=== PATIENT | female | born 1945 | race Caucasian/White ===

== ENCOUNTER 2021-03-18 17:55 | Observation (INO) | payer MEDICARE, SELFPAY ==
--- OUTSIDE RECORDS SUMMARY | 2021-03-18 18:37 | XMS REPORT | Continuity of Care Document ---
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 patch. WASTE: F/P - P Waste Black; E - P Waste Black cefdinir 2019-0 Yes 300 mg = 1 Mem oria 300 MG Oral 1-22 cap, PO, l Capsule 15:33: Q12H, X 7 Estelle nn [Omnicef] 00 day, # 14 cap, 0 Refill(s), Pharmacy: [facility] #[id number] Azithromyci 2019-0 Yes 500 mg = 1 Memoria n 500 MG 1-22 tab, PO, l Oral Tablet 15:33: Daily, X 3 [place] [Zithromax] 00 day, # 3 tab, 0 Refill(s), Pharmacy: [facility] #[id number] benzonatate 2019- Yes 200 mg = 1 Memoria 200 MG Oral -22 cap, PO, l Capsule 15:33: TID, X 10 Estelle nn [Tessalon] 00 day, # 30 cap, 0 Refill(s), Pharmacy: [facility] #[id number] Potassium 2019-0 No Notes: Memori a Chloride - (Same as: l 13:34: K-Dur 20) "Do Not Crush" Give with food and full glass of water For patients unable to swallow tablet, dissolve in one half glass of water. Allow about 2 minutes for the tablets to disintegra te. Stir before giving to prepare slurry and administer . Please exclude Patient s with feeding tube less than 14 Italian (Dobhoff, J-tube etc) and pediatric and patients. Zocor 2019-0 No Notes: Memoria - (Same as: l 03:00: Zocor) Chantix 2019- No 0.5 mg, 1 Memor ia 10-05 tab, l 03:00: Route: PO, 00 Drug form: TAB, Bedtime, Dosing Weight 45.455, kg, Start date: 10/04/19 21:00:00 BASIC ACOUSTIC ANALYST, Duration: 30 day, Stop date: 11/02/19 21:00:00 BASIC ACOUSTIC ANALYST Rocephin + No Notes: Memor ia sterile 10-05 (Same As: l water 10 mL 00:00: Rocephin). Use with 100 mL NS and infuse over 30 min MEDICATION WASTE Product Size: 1000 mg Product Wasted: ___ mg Zithromax 2019-0 No Notes: Memori a -21 (Same As: l 17:00: Zithromax IV) Cogentin 2019-0 No Notes: Memoria -21 (Same As: l 15:00: Cogentin) Buspirone 2019-0 No Notes: Memori a -21 (Same As: l 15:00: BuSpar) clopidogrel 2019-0 No Notes: Isaak lauren - (Same As: l 15:00: Plavix) Lexapro 2020-0 No Notes: Memoria 10-04 (Same as: l 15:00: Lexapro) Prinivil No Notes: Memoria 10-04 (Same as: l 15:00: Prinivil, Zestril) pantoprazol No Notes: Isaak lauren e 10-04 Tablet l 15:00: should not be chewed or crushed. (Same as: Protonix) Mirapex No Notes: Memoria 10-04 (Same as: l 15:00: Mirapex) Pramipexole No 0.125 mg, M emoria 10-04 1 tab, l 15:00: Route: PO, Drug form: TAB, Daily, Dosing Weight 45.455, kg, Start date: 10/04/19 9:00:00 BASIC ACOUSTIC ANALYST, Duration: 30 day, Stop date: 11/02/19 9:00:00 BASIC ACOUSTIC ANALYST Sucralfate No 1 gm, 1 Isaak lauren 10-04 tab, l 15:00: Route: PO, Drug form: TAB, BID, Dosing Weight 45.455, kg, Start date: 10/04/19 9:00:00 BASIC ACOUSTIC ANALYST, Duration: 30 day, Stop date: 11/02/19 17:00:00 BASIC ACOUSTIC ANALYST Robitussin No Notes: Memor ia 10-04 (Same as: l 04:13: Robitussin ) Guaifenesin No 10 ml, Isaak lauren 20 MG/ML / 10-04 Route: PO, l Phenylephri 03:58: Drug Form: LIQ, Hydrochlori Dosing de 1 MG/ML Weight Oral 45.455, Solution kg, Q6H, PRN Cough/Ricky estion, Start date: 10/03/19 21:58:00 BASIC ACOUSTIC ANALYST, Duration: 30 day, Stop date: 11/02/19 21:57:00 BASIC ACOUSTIC ANALYST Habitrol No Notes: Memoria 10-04 (Same as: l 03:31: Habitrol) "Remove old patch before applicatio n of new patch" WASTE: F/P - P Waste Black; E - P Waste Black Trileptal 2020-0 No Notes: Do Mem oria 10-04 not crush l 03:27: or chew. (Same as: Trileptal) Seroquel No Notes: Memoria 10-04 (Same as: l 03:00: SEROquel) Cogentin 2019-0 Yes 0.5 mg, Memori a -21 PO, TID, 0 l 02:59: Refill(s) Prinivil 2019-0 Yes 2.5 mg, Memori a -21 PO, Daily, l 02:59: 0 Refill(s) varenicline 0 Yes 0.5 mg = 1 Memoria 0.5 MG Oral - tab, PO, l Tablet 02:59: Bedtime, # Estelle nn [Chantix] 00 30 tab, 0 Refill(s) oxcarbazepi 2019-0 Yes 150 mg = 1 Memoria ne 150 MG 10-04 tab, PO, l Oral Tablet 02:59: BID, # 120 Jasbir [Trileptal] 00 tab, 0 Refill(s) lidocaine 0 Yes TOP, TID, Mem oria 5% 3.5 gm 10-04 0 l top OIN 02:59: Refill(s) Estelle horowitz 00 Simvastatin 0 Yes 40 mg = 1 M emoria 40 MG Oral 10-04 tab, PO, l Tablet 02:59: Bedtime, # Estelle nn [Zocor] 00 90 tab, 1 Refill(s) Escitalopra 0 Yes 20 mg = 1 M emoria m 20 MG - tab, PO, l Oral Tablet 02:59: Daily, # Matteo guthrie [Lexapro] 00 30 tab, 0 Refill(s) Klonopin 0 No 0.25 mg, Memor ia - PO, BID, 0 l 02:59: Refill(s) quetiapine 0 Yes 100 mg = 1 M emoria 100 MG Oral -21 tab, PO, l Tablet 02:59: Bedtime, # Estelle nn [Seroquel] 00 270 tab, 0 Refill(s) Pramipexole 0 Yes 0.25 mg = M emoria dihydrochlo 1-21 1 tab, PO, l ride 0.25 02:59: TID, # 90 Her do MG Oral 00 tab, 0 Tablet Refill(s) [Mirapex] Janumet No PO, BID, 0 Isaak lauren 10-04 Refill(s) l 02:59: Jasbir 00 clopidogrel 2019- Yes 75 mg = 1 M emoria 75 mg oral 1-21 tab, PO, l tablet 02:59: Daily, # [place] 00 30 tab, 0 Refill(s) Lovenox No Notes: Memoria - (Same as: l 00:15: Lovenox) Dextrose No 12.5 gm, Memor ia 50% Syringe 10-04 25 mL, l (D50W) 00:15: Route: [place] 00 IVP, Drug Form: INJ, Dosing Weight 45.455, kg, PRN, PRN Blood Glucose Results, Start date: 10/03/19 18:15:00 BASIC ACOUSTIC ANALYST, Duration: 30 day, Stop date: 11/02/19 18:14:00 BASIC ACOUSTIC ANALYST, 0 Glucagon No 1 mg, Memoria 10-04 Route: IM, l 00:15: Drug form: PDR/INJ, PRN, Dosing Weight 45.455, kg, PRN Blood Glucose Results, Start date: 10/03/19 18:15:00 BASIC ACOUSTIC ANALYST, Duration: 30 day, Stop date: 11/02/19 18:14:00 BASIC ACOUSTIC ANALYST, 0 Insulin No Notes: Memoria Lispro 10-04 (Same as: l 00:15: Humalog) Roll in palms of hands gently; Do not shake vigorously . WASTE: F/P - Black; E - Municipal Trash Bin Stable for 28 days at room temperatur e. Expires in days from ____Date Kayexalate No Notes: Memor ia 10-04 (sodium l 00:15: polystyren e sulfonate 15 gm/60 ml GAIL) Shake well before use. (Same as: Kayexalate , SPS) Dextrose No 12.5 gm, Memor ia 50% Syringe 1-20 25 mL, l (D50W) 23:12: Route: IVP, Drug Form: INJ, Dosing Weight 45.455, kg, PRN, PRN Blood Glucose Results, Start date: 10/03/19 17:12:00 BASIC ACOUSTIC ANALYST, Duration: 30 day, Stop date: 11/02/19 17:11:00 BASIC ACOUSTIC ANALYST, 0 Glucagon No 1 mg, Memoria 10-03 Route: IM, l 23:12: Drug form: PDR/INJ, PRN, Dosing Weight 45.455, kg, PRN Blood Glucose Results, Start date: 10/03/19 17:12:00 BASIC ACOUSTIC ANALYST, Duration: 30 day, Stop date: 11/02/19 17:11:00 BASIC ACOUSTIC ANALYST, 0 Ondansetron No Notes: Isaak lauren - (Same as: l 23:12: Zofran) MEDICATION WASTE Product Size: 4 mg Product Wasted: ___ mg Trazodone No Notes: Memori a - (Same As: l 23:12: Desyrel) Acetaminoph No Notes: Do M emoria en 10-03 not exceed l 23:12: 4 gm/day. (Same as: Tylenol) D5LR 1,000 No 1,000 mL, Me moria mL 10-03 Rate: 75 l 23:11: ml/hr, Infuse over: 13.3 hr, Route: IV, Dosing Weight 45.455 kg, Total Volume: 1,000, Start date: 10/03/19 17:11:00 BASIC ACOUSTIC ANALYST, Duration: 30 day, Stop date: 11/02/19 17:10:00 BASIC ACOUSTIC ANALYST, 1.4, m2, 0 Promethazin No Notes: Do M emoria e -20 not give l 23:11: IV push. (Same as: Phenergan) Ceftriaxone No Notes: Isaak lauren - (Same As: l 22:28: Rocephin). Use with 100 mL NS and infuse over 30 min MEDICATION WASTE Product Size: 1000 mg Product Wasted: ___ mg Saline 2020-0 No Notes: Memoria Flush 0.9% -20 Same as: l 19:59: BD [place] 00 Posiflush Sterile Calcium No 1,000 mL, Memor ia Chloride -20 2,000 l 0.0014 19:59: ml/hr, Jasbir MEQ/ML / 00 Infuse Potassium Over: 0.5 Chloride hr, Route: 0.004 IV, 1,000, MEQ/ML / Drug form: Sodium INJ, ONCE, Chloride Priority: 0.103 STAT, MEQ/ML / Dosing Sodium Weight Lactate 45.455 kg, 0.028 Start MEQ/ML date: Injectable 10/03/19 Solution 13:59:00 BASIC ACOUSTIC ANALYST, Stop date: 10/03/19 13:59:00 BASIC ACOUSTIC ANALYST, 0 Ondansetron No Notes: Isaak lauren -20 (Same as: l 19:59: Zofran) MEDICATION WASTE Product Size: 4 mg Product Wasted: ___ mg baclofen 5 2017-09 Yes 5 mg = 1 Mem oria mg oral 2-26 tab, PO, l tablet 05:08: TID, PRN [place] 00 Muscle Spasms, # 15 tab, 0 Refill(s) tramadol 2017-09 No 50 mg = 1 Isaak lauren hydrochlori 2-26 tab, PO, l de 50 MG 05:06: Q6H, PRN Estelle nn Oral Tablet 00 pain, X 5 [Ultram] day, # 20 tab, 0 Refill(s) Dexamethaso 2017-09 No 4 mg, 1 Mem oria ne 2-26 mL, Route: l 03:14: IM, Drug form: INJ, ONCE, Dosing Weight 45.455, kg, Priority: STAT, Start date: 09/07/18 21:14:00 BASIC ACOUSTIC ANALYST, Stop date: 09/07/18 21:14:00 BASIC ACOUSTIC ANALYST Tramadol 2017-09 No 50 kg, Memori a 2-26 Priority: l 03:00: STAT, Jasbir Start date: 09/07/18 21:00:00 BASIC ACOUSTIC ANALYST, Stop date: 09/07/18 21:00:00 BASIC ACOUSTIC ANALYST glimepiride Yes 2mg QD Take 2 mg [place] (AMARYL) 2 9-25 by mouth Metho di MG tablet 13:45: daily st 26 before breakfast. HYDROcodone 2017-0 Yes 1{tbl} Q4H Take 1 [place] -acetaminop 9-25 tablet by Met lena miner (NORCO) 13:45: mouth st 7.5-325 mg 26 every 4 per tablet (four) hours as needed for moderate pain. hydrOXYzine 2017-0 Yes 25mg Q.5D Take 25 mg [place] (ATARAX) 25 9-25 by mouth 2 Me thodi MG tablet 13:45: (two) st 26 times a day. methIMAzole 2017-0 Yes 10mg QD Take 10 mg [place] (TAPAZOLE) 9-25 by mouth Metho di 10 MG 13:45: daily. st tablet 26 pravastatin 2017-0 Yes 40mg QD Take 40 mg [place] (PRAVACHOL) 9-25 by mouth Meth brenna 40 MG 13:45: daily. st tablet 26 traZODone 2016-0 Yes 150mg QD Take 150 [place] (DESYREL) 9-25 mg by Method[facility] 150 MG 13:45: mouth st tablet 26 nightly. venlafaxine 2017-0 Yes 100mg QD Take 100 [place] (EFFEXOR) 9-25 mg by [facility] 100 MG 13:45: mouth st tablet 26 daily. ALPRAZolam 2017-0 Yes 1mg Q.25D Take 1 mg [place] (XANAX) 1 9-25 by mouth 4 Meth brenna MG tablet 13:45: (four) st 26 times a day. aspirin 2016- Yes 81mg QD Take 81 mg [place] (ECOTRIN) 9-25 by mouth Method i 81 MG 13:45: daily. st enteric 26 coated tablet clopidogrel 0 Yes TK 1 T PO [place] (PLAVIX) 75 9-09 QD [facility] mg tablet 00:00: st 00 lisinopril 0 Yes TK 1 T PO [place] (PRINIVIL,Z 8- QD [facility] ESTRIL) 2.5 00:00: st mg tablet 0 Yes TK 1 T PO [place] 50-500 mg 8-26 BID WC [facility] per tablet 00:00: st 00 busPIRone 0 Yes TK 1 T PO [place] (BUSPAR) 30 8-24 BID [facility] MG tablet 00:00: st 00 Sodium No 500 mL, Memoria Chloride 12-10 500 ml/hr, l 0.154 09:23: Infuse [place] MEQ/ML 00 Over: 1 Injectable hr, Route: Solution IV, 500, Drug form: INJ, ONCE, Priority: STAT, Dosing Weight 59.091 kg, Start date: 12/10/16 4:23:00 CDT, Duration: 1 doses or times, Stop date: 12/10/16 4:23:00 CDT Saline No Notes: Memoria Flush 0.9% 12-10 Same as: l 07:02: BD Jasbir Posiflush Sterile Ondansetron Yes Special Mem oria 4 MG 06-09 Instructio l Disintegrat 10:40: ns: Chris n ing Tablet 00 Dissolve [Zofran] tab under tongue Ondansetron No Notes: Isaak lauren 06-09 (Same as: l 10:13: Zofran) Jasbir MEDICATION WASTE Product Size: 4 mg Product Wasted: ___ mg Ativan No Notes: Memoria - (Same as: l 10:13: Ativan) Jasbir 00 Sodium No 1,000 mL, Memori a Chloride 04-06 1,000 l 0.154 04:34: ml/hr, [place] MEQ/ML 00 Infuse Injectable Over: 1 Solution hr, Route: IV, ONCE, Priority: STAT, Dosing Weight 59.091 kg, Start date: 04/05/15 23:34:00, Duration: 1 doses or times, Stop date: 04/05/15 23:34:00 Saline No Notes: Memoria Flush 0.9% 04-06 Same as: l 02:36: BD Jasbir Posiflush Sterile Levaquin No Notes: Do Isaak lauren 04-16 not give l 17:00: w/antacids Jasbir , dairy pdt & minerals Take 1 hr before or 2 hr after dairy products predniSONE Yes Special Isaak lauren 10 mg oral 04-15 Instructio l tablet 16:40: ns: take 4 Estelle nn 00 tabs po daily for 3 days then 3 tabs po daily for 3 days then 2 tabs po daily for 3 days then 1 tab po daily for 3 days then stop. Albuterol Yes 2.49 mg = Mem oria 0.83 MG/ML 04-15 3 mL, NEB, l Inhalant 16:40: Q6H, Jasbir Solution 00 Dyspnea, # 120 ea, 0 Refill(s) tiotropium Yes 18 Memoria 0.018 04-15 microgram l MG/ACTUAT 16:40: = 1 ea, Estelle nn Inhalant 00 INHALATION Powder , RDaily, [Spiriva] # 30 ea, 0 Refill(s) levofloxaci Yes 750 mg = 1 Memoria n 750 mg 04-15 tab, PO, l oral tablet 16:40: [id number], # [place] 00 7 tab, 0 Refill(s) glimepiride Yes 4 mg = 1 Me moria 4 mg oral 04-15 tab, PO, l tablet 16:40: BID, # 60 Chris n 00 tab, 0 Refill(s) 120 ACTUAT Yes 2 puff, Isaak lauren Budesonide 04-15 INHALATION l 0.16 16:40: , RBID, # Jasbir MG/ACTUAT / 00 1 ea, 0 formoterol Refill(s) fumarate 0.0045 MG/ACTUAT Metered Dose Inhaler [Symbicort] lisinopril Yes 10 mg = 1 Me moria 10 mg oral 04-15 tab, PO, l tablet 16:40: Daily, # [place] 00 30 tab, 0 Refill(s) Clonidine No Notes: Memori a 04-15 (Same As: l 12:50: Catapres) Jasbir 00 120 ACTUAT No Notes: Memor ia Budesonide 04-15 (Same as: l 0.16 01:00: Symbicort) Jasbir MG/ACTUAT / 00 formoterol fumarate 0.0045 MG/ACTUAT Metered Dose Inhaler [Symbicort] tiotropium No Notes: Memor ia 0.018 04-14 (Same As: l MG/ACTUAT 19:00: Spiriva) Herm jose a Inhalant 00 Powder [Spiriva] Prednisone No Notes: Memor ia 04-14 Take with l 18:05: food. Jasbir 00 Levaquin No Notes: Memoria 8- (Same l 17:00: as:Levaqui n) potassium No Notes: Memori a phosphate-s 04-14 Non-Fomrul l odium 12:03: marilou Drug. phosphate (Same as: 250 mg-45 K-Phos) mg-298 mg oral tablet Methylpredn No Notes: Isaak lauren isolone 04-14 (Same l 02:00: as:Solu-ME DROL, A-Methapre d) Pravastatin No Notes: Isaak lauren 04-14 (Same as: l 02:00: Pravachol) Pramipexole No Notes: Isaak lauren 04-14 (Same as: l 02:00: Mirapex) Alprazolam No Notes: Memor ia 1 MG Oral 7- With food l Tablet 22:00: or milk Jasbir [Xanax] (Same as: Xanax) Buspirone No Notes: Memori a 7-31 (Same As: l 18:00: BuSpar) Lisinopril No Notes: Memor ia 7-31 (Same as: l 17:30: Prinivil, Zestril) Metformin No Notes: Memori a 7-31 (Same as: l 17:00: Glucophage ) Take with meal Januvia No Notes: Memoria 7-31 (Same as: l 17:00: Januvia) Sucralfate No Notes: January emoria 7-31 interfere l 17:00: w/enteral feeds - Take 1 hr before or 2 hr after antacids, dairy pdt, meals & minerals - On empty stomach. (Same As: Carafate) Hydroxyzine No Notes: Isaak lauren Hydrochlori 7-31 (Same as: l de 25 MG 16:37: Atarax) Chris n Oral Tablet 00 Avoid alcohol. Nicoderm No Notes: Memoria C-Q 7-31 (Same as: l 14:00: Habitrol) "Remove old patch before applicatio n of new patch" Lexapro No Notes: Memoria 7-31 (Same as: l 14:00: Lexapro) pneumococca No Notes: Isaak lauren l capsular 04-13 (Same as: l polysacchar 14:00: Pneumovax H ermann ferny type 1 00 23) vaccine / Refrigerat pneumococca e l capsular polysacchar ferny type 10A vaccine / pneumococca l capsular polysacchar ferny type 11A vaccine / pneumococca l capsular polysacchar ferny type 12F vaccine / pneumococca l capsular polysacchar glimepiride No Notes: Isaak lauren 04-13 (Same as: l 14:00: Amaryl) Aspirin / No Notes: Do Mem oria Calcium 04-13 not crush l Carbonate 14:00: or chew. (Same As: Ecotrin) Prednisone No Notes: Memor ia 04-13 Take with l 14:00: food. Protonix No Notes: Memoria - Tablet l 12:30: should not be chewed or crushed. (Same as: Protonix) insulin No Notes: Memoria detemir 04-13 Same as l 02:00: Levemir "single patient use only" Albuterol No Notes: Memori a 0.833 MG/ML 04-13 (Same as: l / 01:00: Duoneb) Ipratropium 00 [place] 0.167 MG/ML Inhalant Solution [DuoNeb] Brovana No Notes: SEE Isaak lauren 04-12 RT l 23:02: DOCUMENTAT ION Same as Brovana Nicoderm No Notes: Memoria C-Q 04-12 (Same as: l 23:00: Habitrol) "Remove old patch before applicatio n of new patch" Methylpredn No Notes: Isaak lauren isolone 30 (Same l 22:00: as:Solu-ME DROL, A-Methapre d) Alprazolam No Notes: Memor ia 1 MG Oral 7-30 With food l Tablet 22:00: or milk [place] [Xanax] 00 (Same as: Xanax) Alprazolam No Notes: Memor ia 7-30 With food l 22:00: or milk [place] 00 (Same as: Xanax) Advair No Notes: Memoria Diskus 250 7-30 (Same as: l mcg-50 mcg 22:00: Advair) Herm jose a inhalation 00 powder Budesonide No Notes: Memor ia 7-30 (Same As: l 21:11: Pulmicort) Jasbir 00 Ativan No Notes: Memoria 7-30 (Same as: l 21:08: Ativan) Levaquin No Notes: Memoria 7-30 (Same l 21:00: as:Levaqui Jasbir 00 n) Albuterol No Notes: Memori a 0.833 MG/ML 7-30 (Same as: l / 20:00: Duoneb) Ipratropium 00 [place] 0.167 MG/ML Inhalant Solution [DuoNeb] Hydroxyzine Yes Special Mem oria Hydrochlori 7-30 Instructio l de 25 MG 19:52: ns: PRN Chris n Oral Tablet sucralfate Yes 1 gm = 1 Mem oria 1 g oral 7-30 tab, PO, l tablet 19:52: BID pantoprazol Yes 40 mg, PO, Memoria e 7-30 Daily l 19:52: pramipexole Yes Special Mem oria 0.125 mg 7-30 Instructio l oral tablet 19:52: ns: Chris n 00 bedtime cephalexin No Special Isaak lauren 500 mg oral 7-30 Instructio l capsule 19:52: ns: PT HAS Herm jose a 3 DAYS LEFT TO TAKE THIS MED Metformin Yes 1 tab, PO, Me moria hydrochlori 7-30 BID l de 1000 MG 19:52: [place] / sitagliptin 50 MG Oral Tablet [Janumet ] Alprazolam Yes 1 mg, PO, Me moria 7-30 QID l 19:52: Jasbir 00 Escitalopra Yes 10 mg = 1 M emoria m 10 MG 7-30 tab, PO, l Oral Tablet 19:52: Daily Estelle nn [Lexapro] 00 predniSONE No See Memoria 10 mg oral 7-30 Special l tablet 19:52: Instructio Estelle nn 00 ns, PO, Daily, # 12 tab busPIRone Yes 10 mg = 1 Mem oria 10 mg oral 7-30 tab, PO, l tablet 19:52: TID Jasbir Levaquin No Notes: Memoria 7-30 (Same l 19:00: as:Levaqui n) Insulin, No Notes: Memoria Aspart, 7-30 Roll in l Human 18:54: palms of hands gently; Do not shake vigorously . (Same as: NovoLOG) "single patient use only" Stable for 28 days at room temperatur e. Expires in days from ____Date Dextrose No 25 gm, 50 Isaak lauren 50% Syringe 7-30 mL, Route: l 18:54: IVP, Drug Form: INJ, Dosing Weight 72.727, kg, PRN, PRN Blood Glucose Results, Start date: 04/12/14 13:54:00, Duration: 30 day, Stop date: 05/12/14 13:53:00 Glucagon No 1 mg, Memoria 30 Route: IM, l 18:54: Drug form: PDR/INJ, PRN, Dosing Weight 72.727, kg, PRN Blood Glucose Results, Start date: 04/12/14 13:54:00, Duration: 30 day, Stop date: 05/12/14 13:53:00 Acetaminoph No Notes: Isaak lauren en 325 MG / -30 (Same as: l Hydrocodone 18:50: [place] Estelle nn Bitartrate 00 325/5) Do 5 MG Oral not exceed Tablet 4gm/day of acetaminop hen. Acetaminoph No Notes: Do M emoria en -30 not exceed l 18:50: 4 gm/day. [place] (Same as: Tylenol) Docusate No Notes: Memoria 7-30 (Same as: l 18:50: Colace) (Do Not Crush) Ondansetron No Notes: Isaak lauren 7-30 (Same as: l 18:50: Zofran) Albuterol No Notes: Memori a 0.833 MG/ML 04-12 (Same as: l / 17:43: Duoneb) Ipratropium [address] [place] 0.167 MG/ML Inhalant Solution [DuoNeb] Ondansetron No Notes: Isaak lauren 7-30 (Same as: l 16:06: Zofran) pramipexole Yes .125mg [id number] Take 0.[address] [facility] [address] (MIRAPEX) 04-10 [id number] mg by Fariba es - 0.125 MG 17:05: 3D mouth 3 Medica l tablet 25 (three) Center times daily. Pt was prescribed this medication and then stopped taking it suddenly 2 months ago. (Per family) Bactrim DS 2011-09 Yes Loann The 1 tab, PO, Memoria oral tablet 0-09 Jessica BID, 14 l 19:53: tab, [place] 30 Substituti on Allowed, Maintenanc e Sodium 2011-09 No Loann The 250 mL, Mem oria Chloride 0-09 Jessica Rate: 250 l 0.9% IV 250 17:41: ml/hr, Herm jose a mL 00 Infuse over: 1 hr, Route: IV, kg, Total Volume: 250, Start date: 06/22/12 12:41:00, Duration: 30 day, Stop date: 07/22/12 11:40:00 Saline 2011-09 No Loann The 5 ml, Memor ia Flush 0.9% 0-09 Jessica Route: l 17:41: IVP, Drug [place] 00 Form: INJ, Dosing Weight 67.727, kg, PRN, PRN Line Flush, Start date: 06/22/12 12:41:00, Duration: 24 hr, Stop date: 06/23/12 12:40:00 Prinivil No Spencer H 5 mg, 1 M emoria 06-12 Trina tab, l 14:00: Route: PO, [place] Drug form: TAB, Daily, Start date: 06/12/12 9:00:00, Duration: 30 day, Stop date: 07/11/12 9:00:00 Protonix 2011- No Tatianna 40 mg, 1 Me moria 06-11 Iliskovic- tab, l 21:30: Deann Route: PO, Estelle nn Drug form: ECTAB, Before Dinner, Start date: 06/11/12 16:30:00, Duration: 30 day, Stop date: 07/10/12 16:30:00 metoprolol No Spencer H 25 mg, 1 Memoria 06-11 [place] tab, l 19:00: Route: PO, Jasbir Drug form: ERTAB, Daily, Start date: 06/11/12 14:00:00, Duration: 30 day, Stop date: 07/11/12 9:00:00 Prinivil 0 No Spencer H 2.5 mg, M emoria 06-11 Bosque 0.5 tab, l 19:00: Route: PO, Jasbir 00 Drug form: TAB, ONCE, Start date: 06/11/12 14:00:00, Stop date: 06/11/12 14:00:00 Restoril No Spencer H 15 mg, 1 Memoria 06-11 Trina cap, l 05:05: Route: PO, [place] Drug form: CAP, Bedtime, PRN Sleep, Start date: 06/11/12 0:05:00, Duration: 30 day, Stop date: 07/11/12 0:04:00 Protonix No Tatianna 40 mg, Isaak lauren 06-10 Karliovic- Route: l 20:00: Deann BRAVOP, Drug Chris n form: INJ, ONCE, Start date: 06/10/12 15:00:00, Stop date: 06/10/12 15:00:00 folic acid 2011- No Gnananandh 1 mg, 1 Memoria 1 mg oral 06-10 Mary tab, l tablet 14:00: Route: GT, Estelle nn Drug form: TAB, Daily, Start date: 06/10/12 9:00:00, Duration: 30 day, Stop date: 07/09/12 9:00:00 Vitamin B1 2011- No Gnananandh 100 mg, 1 Memoria 06-10 Mary tab, l 14:00: Route: NG, [place] 00 Drug form: TAB, Daily, Start date: 06/10/12 9:00:00, Duration: 30 day, Stop date: 07/09/12 9:00:00 Prinivil 0 No Spencer H 2.5 mg, M emoria 06-10 Bosque 0.5 tab, l 14:00: Route: PO, Drug form: TAB, Daily, Start date: 06/10/12 9:00:00, Duration: 30 day, Stop date: 07/09/12 9:00:00 Paxil No Spencer H 45 mg, Memor ia 06-09 Bosque 2.25 tab, l 23:00: Route: PO, Drug form: TAB, Daily, Start date: 06/09/12 18:00:00, Duration: 30 day, Stop date: 07/09/12 9:00:00 Glucophage No Spencer H 500 mg, 1 Memoria XR 06-09 Trina tab, l 22:00: Route: PO, Jasbir 00 Drug form: ERTAB, BID-Before Meals, Start date: 06/09/12 17:00:00, Duration: 30 day, Stop date: 07/09/12 16:30:00 Pravachol No Spencer H 25 mg, 2.5 Memoria 06-09 Trina tab, l 22:00: Route: PO, Drug form: TAB, QPM, Start date: 06/09/12 17:00:00, Duration: 30 day, Stop date: 07/08/12 17:00:00 cefazolin + No Spencer H 1 gm, Memoria Sodium 06-09 Trina Route: l Chloride 22:00: IVPB, [place] 0.9% IV 100 00 [id number], mL Start date: 06/09/12 17:00:00, Duration: 24 hr, Stop date: 06/10/12 9:00:00 chlordiazep No Spencer H 25 mg, 1 Memoria oxide 25 mg 06-09 Bosque cap, l oral 22:00: Route: PO, Jasbir capsule 00 Drug form: CAP, TID, Start date: 06/09/12 17:00:00, Duration: 30 day, Stop date: 07/09/12 13:00:00 Glucotrol No Spencer H 20 mg, 2 Memoria 06-09 Bosque tab, l 21:30: Route: PO, Jasbir 00 Drug form: TAB, BID-Before Meals, Start date: 06/09/12 16:30:00, Duration: 30 day, Stop date: 07/09/12 7:30:00 acetaminoph No Spencer H 2 tab, Memoria en-hydrocod 06-09 Trina Route: PO, l one 325 17:09: Drug Form: Herm jose a mg-5 mg 00 TAB, Q4H, oral tablet PRN Pain, Start date: 06/09/12 12:09:00, Duration: 30 day, Stop date: 07/09/12 12:08:00 1/2NS + KCL No Spencer H 1,000 mL, [facility] 20mEq/L 06-09 Bosque Rate: 60 l 1000ml 17:09: ml/hr, Jasbir (Premix) 00 Infuse 1,000 mL over: 16.7 hr, Route: IV, kg, Total Volume: 1,000, Start date: 06/09/12 12:09:00, Duration: 30 day, Stop date: 07/09/12 12:08:00 NS 500 mL No Fernando 500 mL, Me moria 06-09 Dante Rate: 30 l 13:25: Gallacher ml/hr, Chris n 00 Infuse over: 16.7 hr, Route: INTRAARTER IAL, kg, Total Volume: 500, Start date: 06/09/12 8:25:00, Duration: 1 doses or times, Stop date: 06/10/12 1:06:00 Lactated No Spencer H 1,000 mL, [facility] Ringers IV 06-09 [place]que Rate: 100 l 1,000 mL 12:32: ml/hr, [place] 00 Infuse over: 10 hr, Route: IV, kg, Total Volume: 1,000, Start date: 06/09/12 7:32:00, Duration: 1 doses or times, Stop date: 06/09/12 17:31:00 Lactated 2011-0 No Spencer H 1,000 mL, [facility] Ringers 06-07 [place] Rate: 100 l Injection 11:00: ml/hr, Chris n IV 1,000 mL 00 Infuse over: 10 hr, Route: IV, kg, Total Volume: 1,000, Start date: 06/07/12 6:00:00, Duration: 1 minutes, Stop date: 06/07/12 6:00:00 lidocaine 2011- No Spencer H 0.1 mL, [facility] 06-07 Trina Route: l 11:00: INJ, Drug [place] 00 form: INJ, ONCALL, Start date: 06/07/12 6:00:00, Duration: 1 minutes, Stop date: 06/07/12 6:00:00 cefazolin + 2011-0 No Spencer H 1 gm, [facility] Sodium 06-07 Trina Route: l Chloride 11:00: IVPB, Jasbir 0.9% IV 100 00 ONCALL, mL Start date: 06/07/12 6:00:00, Duration: 1 doses or times Vital Signs Vital Name Observation Time Observation Value Comments Source Temperature Oral (F) 2019-12-06 18:24:00 98.4 F [facility] [place] Heart Rate 2019-12-06 18:24:00 [facility] Respitory Rate 2019-12-06 18:24:00 [facility] [place] Systolic (mm Hg) 2019-12-06 18:24:00 Isaak rial [place] Diastolic (mm Hg) 2019-12-06 18:24:00 [facility] [place] Temperature Oral (F) 2019-12-06 13:38:00 98.2 F [facility] Heart Rate 2019-12-06 13:38:00 [facility] [place] Respitory Rate 2019-12-06 13:38:00 [facility] [place] Systolic (mm Hg) 2019-12-06 13:38:00 Isaak rial [place] Diastolic (mm Hg) 2019-12-06 13:38:00 [facility] [place] Temperature Oral (F) 2019-12-06 09:53:00 98.5 F [facility] [place] Systolic (mm Hg) 2019-12-06 09:53:00 Isaak rial [place] Diastolic (mm Hg) 2019-12-06 09:53:00 [facility] [place] Respitory Rate 2019-12-06 09:53:00 [facility] Heart Rate 2019-12-06 09:53:00 [facility] [place] Height 2019-12-05 20:15:00 152.4 cm [facility] Weight 2019-12-05 20:15:00 [facility] [place] BMI Calculated 2019-12-05 20:15:00 [facility] [place] Height 2019-12-05 15:20:00 172.72 cm [facility] BMI Calculated 2019-12-05 15:20:00 [facility] [place] Weight 2019-12-05 15:20:00 [facility] [place] Respitory Rate 2019-11-19 04:24:00 [facility] [place] Systolic (mm Hg) 2019-11-19 04:24:00 Isaak rial [place] Diastolic (mm Hg) 2019-11-19 04:24:00 [facility] [place] Respitory Rate 2019-11-19 03:15:00 [facility] [place] Systolic (mm Hg) 2019-11-19 03:15:00 Isaak rial [place] Diastolic (mm Hg) 2019-11-19 03:15:00 [facility] [place] Respitory Rate 2019-11-19 02:18:00 [facility] [place] Systolic (mm Hg) 2019-11-19 02:18:00 Isaak rial [place] Diastolic (mm Hg) 2019-11-19 02:18:00 [facility] BMI Calculated 2019-11-19 00:25:00 [facility] [place] Heart Rate 2019-11-18 23:55:00 [facility] Temperature Oral (F) 2019-11-18 23:55:00 97.4 F [facility] [place] Height 2019-11-18 23:55:00 152.4 cm [facility] [place] BMI Calculated 2019-11-18 23:55:00 [facility] Weight 2019-11-18 23:55:00 [facility] Temperature Oral (F) 2019-10-25 22:43:00 98.4 F [facility] [place] Heart Rate 2019-10-25 22:43:00 [facility] Respitory Rate 2019-10-25 22:43:00 [facility] [place] Systolic (mm Hg) 2019-10-25 22:43:00 Isaak rial [place] Diastolic (mm Hg) 2019-10-25 22:43:00 [facility] [place] Temperature Oral (F) 2019-10-25 14:12:00 97.9 F [facility] [place] Heart Rate 2019-10-25 14:12:00 [facility] [place] Respitory Rate 2019-10-25 14:12:00 [facility] [place] Systolic (mm Hg) 2019-10-25 14:12:00 Isaak rial [place] Diastolic (mm Hg) 2019-10-25 14:12:00 [facility] [place] Temperature Oral (F) 2019-10-25 09:56:00 98.2 F [facility] Heart Rate 2019-10-25 09:56:00 [facility] Respitory Rate 2019-10-25 09:56:00 [facility] [place] Systolic (mm Hg) 2019-10-25 09:56:00 Isaak rial [place] Diastolic (mm Hg) 2019-10-25 09:56:00 [facility] [place] Height 2019-10-21 06:11:00 152.4 cm [facility] Weight 2019-10-21 06:11:00 [facility] BMI Calculated 2019-10-21 06:11:00 [facility] [place] Height 2019-10-20 18:05:00 152.4 cm [facility] BMI Calculated 2019-10-20 18:05:00 [facility] Weight 2019-10-20 18:05:00 [facility] [place] Temperature Oral (F) 2019-10-05 17:27:00 98.1 F [facility] [place] Heart Rate 2019-10-05 17:27:00 [facility] Respitory Rate 2019-10-05 17:27:00 [facility] Systolic (mm Hg) 2019-10-05 17:27:00 Isaak rial [place] Diastolic (mm Hg) 2019-10-05 17:27:00 [facility] Temperature Oral (F) 2019-10-05 13:12:00 97.9 F [facility] [place] Heart Rate 2019-10-05 13:12:00 [facility] [place] Respitory Rate 2019-10-05 13:12:00 [facility] Systolic (mm Hg) 2019-10-05 13:12:00 Isaak rial [place] Diastolic (mm Hg) 2019-10-05 13:12:00 [facility] [place] Temperature Oral (F) 2019-10-05 10:19:00 97.5 F [facility] [place] Heart Rate 2019-10-05 10:19:00 [facility] Respitory Rate 2019-10-05 10:19:00 [facility] [place] Systolic (mm Hg) 2019-10-05 10:19:00 Isaak rial [place] Diastolic (mm Hg) 2019-10-05 10:19:00 [facility] [place] Height 2019-10-04 04:10:00 152.4 cm [facility] [place] Weight 2019-10-04 04:10:00 [facility] [place] BMI Calculated 2019-10-04 04:10:00 [facility] Height 2019-10-03 19:36:00 152.4 cm [facility] [place] BMI Calculated 2019-10-03 19:36:00 [facility] [place] Weight 2019-10-03 19:36:00 [facility] [place] Respitory Rate 2018-09-08 05:21:00 [facility] [place] Temperature Oral (F) 2018-09-08 05:21:00 98.0 F [facility] Systolic (mm Hg) 2018-09-08 05:21:00 Isaak rial [place] Diastolic (mm Hg) 2018-09-08 05:21:00 [facility] Heart Rate 2018-09-08 05:21:00 [facility] [place] BMI Calculated 2018-09-08 01:37:00 [facility] [place] Weight 2018-09-08 01:37:00 [facility] [place] Height 2018-09-08 01:37:00 152.4 cm [facility] [place] Heart Rate 2018-09-08 01:37:00 [facility] Systolic (mm Hg) 2018-09-08 01:37:00 Isaak [facility] [place] Diastolic (mm Hg) 2018-09-08 01:37:00 [facility] [place] Temperature Oral (F) 2018-09-08 01:37:00 98.2 F [facility] Respitory Rate 2018-09-08 01:37:00 [facility] [place] Systolic (mm Hg) 2018-05-31 20:22:00 Isaak rial [place] Diastolic (mm Hg) 2018-05-31 20:22:00 [facility] [place] Respitory Rate 2018-05-31 20:22:00 [facility] [place] Systolic (mm Hg) 2018-05-31 19:33:00 Isaak rial [place] Diastolic (mm Hg) 2018-05-31 19:33:00 [facility] Heart Rate 2018-05-31 19:33:00 [facility] Respitory Rate 2018-05-31 19:33:00 [facility] [place] Respitory Rate 2018-05-31 19:02:00 [facility] Heart Rate 2018-05-31 19:02:00 [facility] [place] Temperature Oral (F) 2018-05-31 19:02:00 98 F [facility] Systolic (mm Hg) 2018-05-31 19:02:00 Isaak [facility] [place] Diastolic (mm Hg) 2018-05-31 19:02:00 [facility] [place] Heart Rate 2018-05-31 18:39:00 [facility] [place] Temperature Oral (F) 2018-05-31 18:39:00 98.1 F [facility] [place] Height 2018-05-31 18:39:00 152.4 cm [facility] BMI Calculated 2018-05-31 18:39:00 [facility] [place] Weight 2018-05-31 18:39:00 [facility] Temperature Oral (F) 2016-12-10 10:30:00 98.2 F [facility] [place] Respitory Rate 2016-12-10 10:00:00 [facility] [place] Systolic (mm Hg) 2016-12-10 10:00:00 Isaak [facility] [place] Diastolic (mm Hg) 2016-12-10 10:00:00 [facility] [place] Systolic (mm Hg) 2016-12-10 09:38:00 Isaak [facility] [place] Diastolic (mm Hg) 2016-12-10 09:38:00 [facility] [place] Heart Rate 2016-12-10 09:38:00 [facility] Respitory Rate 2016-12-10 09:38:00 [facility] [place] Respitory Rate 2016-12-10 08:30:00 [facility] [place] Systolic (mm Hg) 2016-12-10 08:30:00 Isaak rial [place] Diastolic (mm Hg) 2016-12-10 08:30:00 [facility] [place] Heart Rate 2016-12-10 07:36:00 [facility] [place] BMI Calculated 2016-12-10 06:38:00 [facility] [place] Weight 2016-12-10 06:38:00 [facility] [place] Height 2016-12-10 06:38:00 152.4 cm [facility] [place] Temperature Oral (F) 2016-12-10 06:38:00 98.1 F [facility] [place] Heart Rate 2016-12-10 06:38:00 [facility] [place] Respitory Rate 2015-06-09 10:52:00 [facility] [place] Heart Rate 2015-06-09 10:52:00 [facility] Systolic (mm Hg) 2015-06-09 10:52:00 Isaak rial [place] Diastolic (mm Hg) 2015-06-09 10:52:00 [facility] [place] Systolic (mm Hg) 2015-06-09 10:24:00 Isaak [facility] [place] Diastolic (mm Hg) 2015-06-09 10:24:00 [facility] [place] Heart Rate 2015-06-09 10:24:00 [facility] [place] Respitory Rate 2015-06-09 10:24:00 [facility] BMI Calculated 2015-06-09 06:12:00 [facility] Weight 2015-06-09 06:12:00 [facility] [place] Height 2015-06-09 06:12:00 152.4 cm [facility] Systolic (mm Hg) 2015-06-09 06:12:00 Isaak [facility] [place] Diastolic (mm Hg) 2015-06-09 06:12:00 [facility] Respitory Rate 2015-06-09 06:12:00 [facility] [place] Heart Rate 2015-06-09 06:12:00 [facility] [place] Temperature Oral (F) 2015-06-09 06:12:00 97.7 F [facility] Respitory Rate 2015-04-06 12:57:00 [facility] [place] Systolic (mm Hg) 2015-04-06 12:57:00 Isaak [facility] [place] Diastolic (mm Hg) 2015-04-06 12:57:00 [facility] [place] Systolic (mm Hg) 2015-04-06 11:00:00 Isaak [facility] [place] Diastolic (mm Hg) 2015-04-06 11:00:00 [facility] [place] Respitory Rate 2015-04-06 11:00:00 [facility] [place] Systolic (mm Hg) 2015-04-06 10:00:00 Isaak [facility] [place] Diastolic (mm Hg) 2015-04-06 10:00:00 [facility] [place] Respitory Rate 2015-04-06 10:00:00 [facility] [place] Temperature Oral (F) 2015-04-06 09:00:00 98 F [facility] [place] Temperature Oral (F) 2015-04-06 04:00:00 98 F [facility] [place] Weight 2015-04-06 02:08:00 [facility] BMI Calculated 2015-04-06 02:08:00 [facility] Heart Rate 2015-04-06 02:08:00 [facility] [place] Height 2015-04-06 02:08:00 154.94 cm [facility] [place] Diastolic (mm Hg) 2014-04-17 00:30:00 [facility] Respitory Rate 2014-04-17 00:30:00 [facility] [place] Systolic (mm Hg) 2014-04-17 00:30:00 Isaak [facility] [place] Heart Rate 2014-04-17 00:30:00 [facility] [place] Temperature Oral (F) 2014-04-17 00:30:00 98.4 F [facility] Respitory Rate 2014-04-16 21:00:00 [facility] [place] Diastolic (mm Hg) 2014-04-16 21:00:00 [facility] Systolic (mm Hg) 2014-04-16 21:00:00 Isaak [facility] [place] Temperature Oral (F) 2014-04-16 21:00:00 98.0 F [facility] [place] Heart Rate 2014-04-16 21:00:00 [facility] [place] Systolic (mm Hg) 2014-04-16 16:04:00 Isaak [facility] [place] Temperature Oral (F) 2014-04-16 16:04:00 98.0 F [facility] [place] Heart Rate 2014-04-16 16:04:00 [facility] [place] Diastolic (mm Hg) 2014-04-16 16:04:00 [facility] Respitory Rate 2014-04-16 13:00:00 [facility] [place] Weight 2014-04-12 19:42:00 [facility] BMI Calculated 2014-04-12 19:42:00 [facility] Height 2014-04-12 19:42:00 152.4 cm [facility] Weight 2014-04-12 15:41:00 [facility] BMI Calculated 2014-04-12 15:41:00 [facility] Height 2014-04-12 15:41:00 152.4 cm [facility] Weight 2012-06-22 17:39:00 [facility] [place] Height 2012-06-22 17:39:00 152.40 cm [facility] [place] Diastolic (mm Hg) 2012-06-11 19:41:00 [facility] [place] Heart Rate 2012-06-11 19:41:00 [facility] [place] Systolic (mm Hg) 2012-06-11 19:41:00 Isaak rial [place] Systolic (mm Hg) 2012-06-11 17:20:00 Isaak [facility] [place] Diastolic (mm Hg) 2012-06-11 17:20:00 [facility] [place] Temperature Oral (F) 2012-06-11 16:25:00 99.0 F [facility] [place] Diastolic (mm Hg) 2012-06-11 16:25:00 [facility] [place] Systolic (mm Hg) 2012-06-11 16:25:00 Isaak [facility] [place] Heart Rate 2012-06-11 16:25:00 [facility] [place] Respitory Rate 2012-06-11 16:25:00 [facility] [place] Temperature Oral (F) 2012-06-11 12:22:00 98.4 F [facility] Heart Rate 2012-06-11 12:22:00 [facility] [place] Respitory Rate 2012-06-11 12:22:00 [facility] [place] Respitory Rate 2012-06-11 09:00:00 [facility] [place] Temperature Oral (F) 2012-06-11 09:00:00 98.2 F [facility] Weight 2012-05-31 18:54:00 [facility] [place] Height 2012-05-31 18:54:00 152.40 cm [facility] [place] Procedures Procedure Date / Time Performed Performing Clinician [facility] End[facility] [place] Plan of Care Planned Activity Planned Date Details Comments Source Future Scheduled 2021-04-14 [facility]ENZA VACCINE [place] 00:00:00 [code = INFLUENZA VACCINE] Future Scheduled 2020-05-15 INFLUENZA VACCINE (#1) [facility] Test 00:[facility]:00 [code = INFLUENZA Medical Ce nter VACCINE (#1)] Future Scheduled 2012-03-[address] [facility] - Test 00:00:00 WELLNESS (YEAR [facility] or [facility] FIRST YEAR if no IPPE) [code = MEDICARE ANNUAL WELLNESS (YEAR 2 or FIRST YEAR if no IPPE)] Future Scheduled 2011 65+ PNEUMOCOCCAL [facility] [facility] 00:00:00 VACCINE (1 of 1 - PPSV23) [code = 65+ PNEUMOCOCCAL VACCINE (1 of 1 - PPSV23)] Future Scheduled 1996 BRE[facility] CANCER [facility] 00:[facility]:00 SCREENING [code = BREAST CANCER SCREENING] Future Scheduled 1996 COLONOSCOPY SCREENING [facility] Test 00:00:00 [code = COLONOSCOPY SCREENING] Future Scheduled 1996 SHINGLES VACCINES (#1) [place] [facility] 00:00:00 [code = SHINGLES VACCINES (#1)] Future Scheduled 1958 COVID-19 VACCINE (1) [facility] 00:00:00 [code = COVID-19 VACCINE (1)] Future Scheduled [address] [facility] Test 00:00:00 malignant ne[facility] colon (procedure) [code = 121372713] Future Scheduled [address] [facility] - Test 00:00:00 [facility] breast (procedure) [code = 105898018] Encounters Start End Encounter Admission Attending Care Care Encounter Source Date/Time Date/Time Type Type Clinicians Facility Department ID 2019-12-05 2019-12-06 Outpatient DIANDRA Benson ERVIN [id number] 10:17:39 15:00:00 Oluwadamilo 12 la Abisola 2019-12-05 2019-12-05 Inpatient E [facility] MED [id number] MHTW 13:24:00 10:17:00 2019-11-18 2019-11-18 Outpatient DIANDRA Kirkpatrick [id number] 17:53:49 23:18:00 Perry Meyer 2019-11-18 2019-11-18 Emergency E MHTW TW [id number] MHTW 17:53:00 17:53:00 2019-10-20 2019-10-25 Outpatient DIANDRA Gorman WOOD [id number] 12:04:11 20:32:00 Rohan 10 2019-10-21 2019-10-20 Inpatient E [facility] MED [id number] MHTW 14:53:00 19:36:00 2019-10-03 2019-10-05 [id number] 13:36:06 17:00:00 09 2019-10-03 2019-10-03 Inpatient E M[facility] MED [id number] MHTW 16:40:00 13:36:00 2018-09-07 2018-09-07 Outpatient JAN [facility] [id number] 19:21:00 23:22:00 Parker Tian 08 2018-09-07 2018-09-07 Emergency E MHSE MHSE [id number] 19:21:00 19:21:00 [facility] 2018-05-31 2018-05-31 Outpatient Hannah Gonzalez [facility] [id number] 13:38:00 15:52:00 Dori Meyer 07 2016-12-10 2016-12-10 Outpatient DIANDRA Hurd [facility] [id number] 01:34:00 05:45:00 Salima Tian 06 2015-06-09 2015-06-09 Outpatient Jurgen ERVIN WOOD [id number] 01:10:00 05:57:00 Syd Guevara 05 2015-04-05 2015-04-06 Outpatient Raven WOOD WOOD [id number] 21:07:00 08:50:00 Vargas 04 2014-04-12 2014-04-16 Outpatient Fern Del Angel [facility] [id number] 10:37:00 20:00:00 Mohammad 03 Results Test Description Test Time Test Comments Results Result Comments Source CHEM PANEL 2019-12-06 140 [facility] 06:29:50 CHEM PANEL 2019-12-06 22 [facility] 06:29:50 CHEM PANEL 2019-12-06 0.90 [facility] 06:29:50 CHEM PANEL 2019-12-06 138 [facility] 06:29:50 CHEM PANEL 2019-12-06 4.4 [facility] 06:29:50 CHEM PANEL 2019-12-06 110 [facility] nn 06:29:50 CHEM PANEL 2019-12-06 25 [facility] nn 06:29:50 CHEM PANEL 2019-12-06 8.5 [facility] 06:29:50 CHEM PANEL 2019-12-06 5.5 [facility] 06:29:50 CHEM PANEL 2019-12-06 2.4 [facility] nn 06:29:50 CHEM PANEL 2019-12-06 13 [facility] 06:29:50 CHEM PANEL 2019-12-06 11 [facility] 06:29:50 CHEM PANEL 2019-12-06 43 [facility] nn 06:29:50 CHEM PANEL 2019-12-06 0.1 [facility] nn 06:29:50 CHEM PANEL 2019-12-06 7.4 [facility] 06:29:50 CHEM PANEL 2019-12-06 06:29:50 Test Item Value Reference Range Interpretation Comme nts B/C Ratio (test code = B/C Ratio) 24 1 6-25 [facility] [id number] 06:29:503.1[facility] PANEL 2019-12-06 06:29:50 Test Item Value Reference Range Interpretation Comments A/G Ratio (test code = A/G Ratio) 0.8 1 0.7-1.6 [facility] [id number] 06:29:5064[facility]annHEMATOLOGY 2019-12-06 06:29:5083.6[facility] JeclgquZSNYNWZDHA2494-92-74 06:29:507.7[facility] CwifdpwYXCRIBVGUU3904-70-61 06:29:504.5[facility] NihpubjNYBKWURMMU8094-25-78 06:29:503.8[facility] AaihvhuNSCGDHKGYH8407-30-07 06:29:500.4[facility] [place] RUZENRJOFH3778-06-44 06:29:506.2[facility] UuyrcabQDEOAMTLPN1806-58-68 06:29:500.6 [facility] JhnhwydOSWVZKBPQB1912-72-39 06:29:500.3[facility]annHEMATOLOGY 2019-12-06 06:29:500.3[facility] AxtzwviQLTAUFZNNX3143-55-29 06:29:507.5[facility] XxwhmccBDJFDHVPXX6045-50-77 06:29:503.31[facility] MhxftdnTIGDIWSECU3282-22-10 06:29:508.5[facility] XayqfjxRFXNIMQQLK9212-06-33 06:29:5026.9[facility] BUUXDCWFWN0987-59-60 06:29:5081.5[facility] CciwygoHOFJWXNNLR4792-02-81 06:29:50 Test Item Value Reference Range Interpretation Comments MCH (test code = MCH) 25.7 pg 27.0-31.0 [facility] QvjdvsxUAOLLBZWSN6501-19-69 06:29:5031.6[facility]annHEMATOLOGY 2019-12-06 06:29:5014.6[facility] VkffkcpVEVFDZRLOC8523-87-52 06:29:93258Peaykfmu GghaipsMNBZLIHGAV3141-67-37 06:29:508.9[facility]annMOLECULAR DIAGNOSTIC 2019-12-05 18:47:00Nasophrngl Swb *NA*(12/05/19 1:47 PM)[facility]annMOLECULAR OIBNAWLAYE8183-36-07 18:47:00Negative *NA*(12/05/19 1:47 PM)[facility] MOLECULAR BEGWHPIYNV8192-32-72 18:47:00Negative *NA*(12/05/19 1:47 PM)[facility]annMOLECULAR WTKVRHWIUI8300-59-83 18:47:00Negative *NA*(12/05/19 1:47 PM) [facility]annANEMIA FOXHH0941-06-50 16:26:0019[facility]annCARDIAC ENZYMES 2019-12-05 16:26:0024[facility] HermannCARDIAC TOUKQZS7057-79-39 16:26:00<0.02 [facility]annCHE[facility] ZSGVS5559-87-61 16:26:001.36[facility]annCHEM PANEL 2019-12-05 16:26:92838Auoicibu HermannCHEM LXHJJ2496-55-55 16:26:0014[facility]annCHEM OKHOK3229-13-13 16:26:000.75[facility]annCHEM LGQFD4531-32-24 16:26:39970Ntwdxwvo HermannCHEM WUVRK2358-09-82 16:26:004.3[facility]annCHEM WBGCC3479-44-62 16:26:21910Qqscppnp HermannCHEM MYREN0053-01-16 16:26:0025 [facility]annCHE[facility] ULTTU0085-98-30 16:26:009.1[facility]annCHEM PANEL 2019-12-05 16:26:006.8[facility]annCHEM QBUVY0905-50-18 16:26:003.0[facility]annCHEM ACSRF1705-42-65 16:26:0015[facility]annCHEM QUXVJ6204-58-65 16:26:0011[facility]annCHEM MOOIB7002-05-91 16:26:0058[facility]annCHEM WSBNH5711-70-72 16:26:000.2[facility]annCHEM WRGCL3518-08-80 16:26:009.3 [facility] HYLMV4386-44-44 16:26:00 Test Item Value Reference Range Interpretation Comments B/C Ratio (test code = B/C Ratio) 19 1 6-25 [facility] EDKUV6227-22-39 16:26:003.8[facility]annCHEM PANEL 2019-12-05 16:26:00 Test Item Value Reference Range Interpretation Comments A/G Ratio (test code = A/G Ratio) 0.8 1 0.7-1.6 [facility] IYFLC8356-37-65 16:26:0079[facility]annCHEM PANEL 2019-12-05 16:26:000.8[facility]annCHEM CTJSA1738-95-14 16:26:34372Nuutacue VtybbyzBFDUEMCDRM0910-64-04 16:26:0012.3[facility] XssuuqgKXYPCXOQND0782-86-99 16:26:003.87[facility] KxuxdshXCXEZSDFWE3009-06-52 16:26:009.9[facility] IHHHMBRIRJ6414-52-67 16:26:0031.5[facility] CpewujbRRCGTQJUOR4414-63-24 16:26:00 81.2[facility] UyuhvcuFCYQDXNJWU2739-10-97 16:26:00 Test Item Value Reference Range Interpretation Comments MCH (test code = MCH) 25.5 pg 27.0-31.0 [facility] SenelcmUKVIKJWFWF7911-05-40 16:26:0031.4[facility]annHEMATOLOGY 2019-12-05 16:26:0014.7[facility] UzlalqtCDWUMJIRWG5094-08-36 16:26:20511Auqivkpr QelvuajINABVPINOO1557-79-99 16:26:008.8[facility] HqvrxwuFZSVFZAYGK5799-62-67 16:26:00 Test Item Value Reference Range Interpretation Comments PT (test code = PT) 14.0 s 12.0-14.7 [facility] BttskflBWAACRAGHV0289-81-98 16:26:00 Test Item Value Reference Range Interpretation Comments INR (test code = INR) 1.08 1 0.85-1.17 [facility] JmqjxreXRUNFLQMZU4719-56-15 16:26:00 Test Item Value Reference Range Interpretation Comments PTT (test code = PTT) 26.0 s 22.9-35.8 [facility] NqpzokoCDNLZQFGNJ2871-41-96 16:26:0094.6[facility]annHEMATOLOGY 2019-12-05 16:26:001.5[facility] LejrnjsJATQYGMDKP5799-50-55 16:26:002.9[facility] VeplwmgNBOUHXVBFX6433-03-58 16:26:000.6[facility] GeptfraWPDJDINHNX9303-29-43 16:26:000.4[facility] CjdblfsGHKZGVLWOT1870-82-35 16:26:0011.7[facility] CEUINGYOXN5999-75-73 16:26:000.2[facility] HjruwvcQXFRJLUTUE2665-35-97 16:26:000.4 [facility] DoesaomFKKNMYJEYK2326-80-14 16:26:000.1[facility] HermannIMMUNOLOGY 2019-12-05 16:26:0015.4[facility]annURINE AND VUJBJ3004-72-69 16:26:00Clear (12/05/19 11:26 AM)[facility] JNFNC2952-54-64 16:26:00 Test Item Value Reference Range Interpretation Comments UA Spec Grav (test code = UA Spec 1.010 1 Grav) [facility] JKACQ4224-78-31 16:26:00 Test Item Value Reference Range Interpretation Comments UA pH (test code = UA pH) 7.0 1 5.0-8.0 [facility] [id number] 16:26:00Negative *NA*(12/05/19 11:26 AM)[facility] [id number] 16:26:00Negative (12/05/19 11:26 AM) [facility] [id number] 16:26:00Negative (12/05/19 11:26 AM) [facility] HLTCS0522-86-03 16:26:00Negative (12/05/19 11:26 AM) [facility] [id number] 16:26:00<1[facility] UVFFO7506-29-58 16:26:00<1[facility]annCARDIAC HYFTHGF1225-65-79 00:35:00 62[facility] UQJWMWI2479-58-22 00:35:00<0.02[facility] CARD[facility]AC JUCQPWE2951-55-82 00:35:0025[facility]annCHEM CTDTN4392-74-92 00:35:34149Gkbggjxh HermannCHEM GSGMH4331-16-66 00:35:0032[facility]annCHE[facility] KWBSF4754-70-38 00:35:001.26[facility]annCHE[facility] ZOKSY5276-94-49 00:35:68166 [facility] NIXTW0669-85-71 00:35:004.1[facility]annCHE[facility] PANEL 2019-11-19 00:35:25228Rrcgvlco HermannCHEM LYLUO7892-96-91 00:35:0022[facility]annCHE[facility] AYYTU9825-37-36 00:35:009.3[facility]annCHE[facility] LNZFJ2780-85-80 00:35:007.2[facility]annCHE[facility] XEHHA7141-30-92 00:35:003.4[facility]annCHE[facility] FHQSC4566-57-19 00:35:0016[facility]annCHE[facility] LYOUV6027-18-76 00:35:009[facility]annCHE[facility] AOEBF8941-64-87 00:35:0069[facility]CHE[facility] KWQQN5688-06-08 00:35:000.2[facility]annCHE[facility] OSPJO5363-79-90 00:35:0011.1[facility]annCHE[facility] KGUMC3552-33-67 00:35:00 Test Item Value Reference Range Interpretation Comments B/C Ratio (test code = B/C Ratio) 25 1 6-25 [facility] [id number] 00:35:003.8[facility]annCHE[facility] PANEL 2019-11-19 00:35:00 Test Item Value Reference Range Interpretation Comments A/G Ratio (test code = A/G Ratio) 0.9 1 0.7-1.6 [facility] [id number] 00:35:0042[facility]annHEMATOLOGY 2019-11-19 00:35:0052.3[facility] IuuagtzEFOEWDCSXO3022-67-21 00:35:0024.7[facility] XsnjazaMVKLNWHATH4129-65-76 00:35:008.2[facility] DzpmnegCLWJKYUOWO2249-44-90 00:35:0014.0[facility] AwcmgrbREMFSNZCZL0987-88-11 00:35:000.8[facility] LIRJVHYKJW7442-48-60 00:35:003.4[facility] SyipnekTZSMVSRJXO2673-09-83 00:35:001.6 [facility] VngdixfVURWQUDMZI1422-47-67 00:35:000.5[facility]annHEMATOLOGY 2019-11-19 00:35:000.9[facility] CdikgglWWQZIQXQJM0357-85-74 00:35:000.1[facility] HzfvrmzGQTOHZDDJQ9961-04-35 00:35:006.4[facility] UerwtzaXSAEENDPWD0974-85-84 00:35:004.04[facility] EjmmajgMDSWFIADQZ5967-71-88 00:35:0010.4[facility] HJPJLHTNQA4810-52-88 00:35:0033.5[facility] HxijvkhZMQTMPTVLC3233-35-04 00:35:00 82.9[facility] OyxfhitVZKNDEADJA2917-42-73 00:35:00 Test Item Value Reference Range Interpretation Comments MCH (test code = MCH) 25.9 pg 27.0-31.0 [facility] HlkphzaCSNBBLOZLJ5572-33-94 00:35:0031.2[facility]annHEMATOLOGY 2019-11-19 00:35:0014.9[facility] ZmomgzzBFHKAIJRMN7702-80-08 00:35:45306Yalqikna XajbjjxMQLXVIYMYB7584-79-53 00:35:008.8[facility] MpqobouYTYEYAUHHA4508-87-76 00:35:00 Test Item Value Reference Range Interpretation Comments PT (test code = PT) 13.5 s 12.0-14.7 [facility] RjhqgufLLKXVMHENU5765-52-89 00:35:00 Test Item Value Reference Range Interpretation Comments INR (test code = INR) 1.03 1 0.85-1.17 [facility] WpgfexwKTCRYTSNPM8170-25-15 00:35:00 Test Item Value Reference Range Interpretation Comments PTT (test code = PTT) 27.4 s 22.9-35.8 [facility] BQXDV8444-14-94 09:04:0092[facility]annCHEM PANEL 2019-10-22 09:04:0015[facility]annCHE[facility] LOXQP4038-27-52 09:04:000.72[facility]annCHE[facility] WQJCY9845-46-98 09:04:70864Xcikczar HermannCHEM ECOHV1468-76-94 09:04:003.9[facility]annCHE[facility] UTLPD6686-16-06 09:04:36829Urebpoan HermannCHEM HNOYG8507-00-24 09:04:0026[facility] TGILN9271-17-41 09:04:008.6 [facility] WTODY2816-38-72 09:04:008.9[facility]annCHEM PANEL 2019-10-22 09:04:0084[facility] IjwyqhyRWYGXYLJSN0714-96-34 09:04:006.7[facility] OqopfolSJEWJDCQKE5926-50-85 09:04:003.39[facility] RselwqtBNGEMKNUMT3403-87-14 09:04:009.0[facility] EgviixcIYSVHJPNQK0518-81-31 09:04:0027.8[facility] RVWDXFNSIT3494-95-19 09:04:0082.2[facility] ZnfepzaZTZYKXBCPI0185-35-72 09:04:00 Test Item Value Reference Range Interpretation Comments MCH (test code = MCH) 26.7 pg 27.0-31.0 [facility] WyclbkhWIPGHGFUKJ8948-55-13 09:04:0032.5[facility]annHEMATOLOGY 2019-10-22 09:04:0014.9[facility] IrtiyhoDGIFQYHZJP6907-88-01 09:04:63349Tulcfnte QbaeiskBBMJGDWNNU9029-22-55 09:04:008.6[facility] QihvpjuBDWKLFSEPW0597-28-23 09:04:0055.6[facility] ZraxvurMLVYPEPJWF9833-51-43 09:04:0028.1[facility] CCPLROENIR4584-27-60 09:04:009.2[facility] TcrootnBJDIQCTCSA7707-13-03 09:04:006.1 [facility] XobzctmXQNNNIGJJP4944-38-35 09:04:001.0[facility]annHEMATOLOGY 2019-10-22 09:04:003.7[facility] ZydhgkiIGYJMCLJRY5527-46-80 09:04:001.9[facility] VmcqdqfGXUQWGZQIV7128-78-69 09:04:000.6[facility] ZyaogmqGVXEIKLHJS3566-82-54 09:04:000.4[facility] TdwzjhwFSHZQQNVWZ7819-31-78 09:04:000.1[facility]annCHEM MDLUD8528-86-79 09:19:0072[facility]annCHE[facility] RGVIA3326-63-12 09:19:0020 [facility] MTJLZ1892-52-20 09:19:000.71[facility]annCHEM PANEL 2019-10-21 09:19:66368Kxpxqhxn HermannCHEM KOJXK0838-13-62 09:19:004.0[facility]annCHE[facility] QQPBK6379-04-06 09:19:96458Pofbtfif HermannCHEM TTWQR3500-25-89 09:19:0024[facility]annCHE[facility] WJCEX9481-02-16 09:19:0013.0[facility]CHE[facility] UDIQL8559-62-39 09:19:009.1[facility]CHE[facility] TTVNL1182-06-26 09:19:00 Test Item Value Reference Range Interpretation Comments B/C Ratio (test code = B/C Ratio) 28 1 6-25 [facility] ICWKK9309-17-43 09:19:006.3[facility]annCHEM PANEL 2019-10-21 09:19:002.9[facility] AGLCV4516-57-47 09:19:003.4[facility]annCHE[facility] SZRFC9712-50-48 09:19:00 Test Item Value Reference Range Interpretation Comments A/G Ratio (test code = A/G Ratio) 0.9 1 0.7-1.6 [facility] KEPID9890-52-52 09:19:0015[facility]annCHEM PANEL 2019-10-21 09:19:0016[facility]annCHE[facility] DJDVY4460-52-69 09:19:0056[facility]annCHE[facility] ZOYBD0899-91-47 09:19:000.3[facility]annCHE[facility] ODKJL4043-74-54 09:19:0084[facility] FtadtdrHFIOIVZAQU3623-42-00 09:19:0075.0[facility] WXMFUIYMQX1092-51-13 09:19:0014.1[facility] IbyafedHSVGDODTWG5499-11-45 09:19:00 8.4[facility] JemrvarAFLFJZRQFS9950-62-51 09:19:001.9[facility]annHEMATOLOGY 2019-10-21 09:19:000.6[facility] XcvgjagHSRBFWCFEB3194-19-77 09:19:008.1[facility] BgtmwueXBDOARYIYY5910-42-64 09:19:001.5[facility] VstyxbzTMZBLZHQHE4256-93-53 09:19:000.9[facility] VcorgbtVRJMLPWHOF0310-19-71 09:19:000.2[facility] YOVDNFAOXY0300-32-33 09:19:000.1[facility] LmzhmrbIBNEKOHMZH3033-60-06 09:19:00 10.8[facility] PpcoeseJECCHSGAOW5894-46-28 09:19:003.78[facility]annHEMATOLOGY 2019-10-21 09:19:009.9[facility] ZundgekYAXWWZTKRU2097-96-67 09:19:0030.9[facility] OhvtetlLNGUGAYSYX1868-81-11 09:19:0081.9[facility] LptqjqpWPSOHVWSAY2653-71-24 09:19:00 Test Item Value Reference Range Interpretation Comments MCH (test code = MCH) 26.3 pg 27.0-31.0 [facility] JdbrocwIPULLIIRYD5950-26-59 09:19:0032.1[facility]annHEMATOLOGY 2019-10-21 09:19:0015.2[facility] CihabhjSTMGJXNHLH2266-68-71 09:19:07515Edukzwfj VpmflpjDJZYYILIMB7306-89-22 09:19:008.2[facility] JGUIW3981-50-16 08:04:00Clear (10/21/19 2:04 AM)[facility] XIUFO8990-68-42 08:04:00 Test Item Value Reference Range Interpretation Comments UA Spec Grav (test code = UA Spec 1.033 1 Grav) [facility] OMYVX9423-02-18 08:04:00 Test Item Value Reference Range Interpretation Comments UA pH (test code = UA pH) 8.0 1 5.0-8.0 [facility] FFGXD3181-19-52 08:04:00Negative *NA*(10/21/19 2:04 AM) [facility] LALMR2111-38-48 08:04:00Negative (10/21/19 2:04 AM) [facility] TTYIL7644-50-11 08:04:00Negative (10/21/19 2:04 AM) [facility] RUYBO7222-91-08 08:04:00Negative (10/21/19 2:04 AM) [facility] KIDBM5960-51-74 08:04:004[facility] YVDDF7673-76-34 08:04:001[facility] PERGN6222-78-05 08:04:001 [facility]annCARDIAC TYLOTYH5423-44-82 18:55:00<0.02[facility]annCHEM VHYCL2045-12-60 18:55:44834Fzeaockt HermannCHEM YRDEI6983-55-91 18:55:0026 [facility] GGFRX4863-07-17 18:55:000.82[facility]annCHEM PANEL 2019-10-20 18:55:99877Vzamydjn HermannCHEM BDGWJ8294-83-22 18:55:003.8[facility]annCHE[facility] PEJYZ6845-06-48 18:55:11030Tfjtrazg [facility]annCHE[facility] SELVH0213-57-27 18:55:0030[facility]annCHE[facility] CUTHF3287-77-03 18:55:009.7[facility]annCHE[facility] RJXOB4577-81-36 18:55:007.3[facility]annCHE[facility] MYORQ0133-65-46 18:55:003.4 [facility]CHE[facility] VIXUN3070-10-54 18:55:0018[facility]annCHEM PANEL 2019-10-20 18:55:0017[facility]annCHE[facility] TWSMK0358-10-14 18:55:0066[facility]annCHE[facility] PYGMU9399-31-18 18:55:000.4[facility]annCHE[facility] ZWLRX8158-16-91 18:55:009.8[facility]annCHE[facility] SSDGJ4286-78-86 18:55:00 Test Item Value Reference Range Interpretation Comments B/C Ratio (test code = B/C Ratio) 32 1 6-25 [facility] HBPMA7715-66-64 18:55:003.9[facility]annCHEM PANEL 2019-10-20 18:55:00 Test Item Value Reference Range Interpretation Comments A/G Ratio (test code = A/G Ratio) 0.9 1 0.7-1.6 [facility]CHE[facility] SYRYE2557-22-21 18:55:0071[facility]annCHEM PANEL 2019-10-20 18:55:77436Cwcghytl HermannCHEM AOFVG6013-67-26 18:55:001.1[facility] ZmmlekoSLDECSUZJQ6587-50-07 18:55:0014.3[facility] UscvauwYGFUDAEWED1742-41-25 18:55:004.34[facility] VjmtgvcWZFBWBBWXK1244-41-34 18:55:0011.4[facility] MGUBXWZQZQ3492-96-25 18:55:0035.6[facility] ZzjetezKURTGPJTZK6884-59-71 18:55:00 82.1[facility] EuwtyehCYCFBHARYX9478-58-27 18:55:00 Test Item Value Reference Range Interpretation Comments MCH (test code = MCH) 26.4 pg 27.0-31.0 [facility] KacyyxzHJSLPXRYCJ5428-54-85 18:55:0032.1[facility] HermannHEMATOLOGY 2019-10-20 18:55:0015.2[facility] XfxnvanMUFCXJPSHB7828-86-70 18:55:64721Tmunaqio NnqhnjcCJKAGQDTNM4383-17-08 18:55:008.1[facility] JwslszePRVLZGWWVK2286-20-03 18:55:00 Test Item Value Reference Range Interpretation Comments PT (test code = PT) 14.0 s 12.0-14.7 [facility] QtzffyjMWUVWDOUNK1474-23-03 18:55:00 Test Item Value Reference Range Interpretation Comments INR (test code = INR) 1.08 1 0.85-1.17 [facility] WewkheoADTYYNMEDA7059-64-16 18:55:0085.8[facility] HermannHEMATOLOGY 2019-10-20 18:55:007.6[facility] ZrypqmzXZXWRYTKGL1507-22-90 18:55:005.9[facility] YbyaqdfEKYOBSFFJB8472-58-60 18:55:000.4[facility] OkvvinxJNYLRTQMBP7693-76-09 18:55:000.3[facility] LcmhyqpKAFXNXHMMZ9389-39-77 18:55:0012.3[facility] VSMYHHJYVP8309-79-36 18:55:001.1[facility] ErenjnkUZEHOBSYZT6195-85-34 18:55:000.8 [facility] HlvkipxVYJZHGJVCQ2645-66-06 18:55:000.1[facility] HermannCHEM PANEL 2019-10-05 11:45:14872Ueivuiof HermannCHEM BDBBR5788-39-38 11:45:0015[facility]annCHEM CSCKO6872-30-95 11:45:000.72[facility]annCHEM RPUIT8237-41-32 11:45:02612Lbjkucjk HermannCHEM JPCXN1720-78-04 11:45:003.4[facility]annCHEM MGSCZ1523-60-00 11:45:92488Tnzgdokn HermannCHEM ERZLA1895-43-47 11:45:0026 [facility]annCHE[facility] WCCLZ5751-85-19 11:45:009.4[facility]annCHEM PANEL 2019-10-05 11:45:008.4[facility]annCHEM GMXQF1772-90-15 11:45:0084[facility] IczqvtpZOUKMZYSEB1857-81-85 11:45:008.8[facility] LzgsmesOJRMDPTEAR8473-93-99 11:45:003.92[facility] XfjezmrHPLRDLBXLD3807-77-87 11:45:0010.3[facility] VIIRBAFGYJ8412-12-97 11:45:0031.8[facility] LcmuiksRGGJTSVGBL2942-91-99 11:45:00 81.3[facility] BjyiqbgIYRIFISQAL7160-66-10 11:45:00 Test Item Value Reference Range Interpretation Comments MCH (test code = MCH) 26.3 pg 27.0-31.0 [facility] YvkrcdhJVRMGAMCYJ3367-12-36 11:45:0032.3[facility] HermannHEMATOLOGY 2019-10-05 11:45:0014.2[facility] RlmuqhbVWVTAAWEAV6072-62-56 11:45:12461Namepbfw ZthiuhdASLNWVPYOF8009-41-80 11:45:008.1[facility] XnpwrioTBBIUGIXJW5792-63-43 11:45:0067.0[facility] NvtdcglDXWOOOASNG7052-17-46 11:45:0021.6[facility] UXXSRQBZGL0033-31-36 11:45:008.2[facility] JanuyfcGLMDPNMPDI7715-85-65 11:45:002.5 [facility] HaelglpNWNQWGAMNW5947-00-81 11:45:000.7[facility] HermannHEMATOLOGY 2019-10-05 11:45:005.9[facility] UewpgzyWSBPDTYDIG7855-81-72 11:45:001.9[facility] McvlexbVBNRGKFTSI4702-45-46 11:45:000.7[facility] MgkpdvaDVEMLIMBNZ5601-39-43 11:45:000.2[facility] QvtftkwRXAVMTXOWP3643-79-86 11:45:000.1[facility]annCHEM SYQUV7376-23-79 11:50:0062[facility]annCHEM EATKO2846-99-54 11:50:0031 [facility]annCHE[facility] BXPCR5669-27-41 11:50:000.80[facility] HermannCHEM PANEL 2019-10-04 11:50:24401Paagsaie HermannCHEM VGXUK6573-30-58 11:50:003.8[facility]annCHEM EPYVJ9654-13-44 11:50:38193Btsscwby HermannCHEM PAGMS3725-95-57 11:50:0027[facility]annCHEM YOILO4048-46-19 11:50:008.7[facility]annCHEM KZMQT2066-39-92 11:50:008.8[facility]annCHEM JBBRZ0446-98-10 11:50:0073 [facility] TuspsvoVZTABKBXEB5907-95-93 11:50:0081.6[facility] HermannHEMATOLOGY 2019-10-04 11:50:0011.9[facility] IcrcoeqYJSVDXLGLS9317-61-41 11:50:005.5[facility] SlwoybvZDZSCJOCJS4374-14-97 11:50:000.5[facility] VnsdaowBMAROMVUBS3084-38-37 11:50:000.5[facility] FjrrlejGNJCBMFMSC0027-82-03 11:50:0012.8[facility] NGBEHBKFEJ9555-49-14 11:50:001.9[facility] QavjdnbOQILDUMYIX9539-56-31 11:50:000.9 [facility] JwfqhjoFWZSTQDSXT0226-47-93 11:50:000.1[facility]annHEMATOLOGY 2019-10-04 11:50:000.1[facility] MeugqfkGMVXTZPVRE8161-27-59 11:50:0015.7[facility] LhketrxWNQIOIJTEH7890-23-64 11:50:003.95[facility] ToivesjQTTEDCVVEB6848-11-61 11:50:0010.2[facility] SgabnkkYBCYIASKML9006-28-92 11:50:0032.3[facility] QBVORMHDHR0261-76-57 11:50:0081.9[facility] CmloynyOVZBCJILOT8293-70-94 11:50:00 Test Item Value Reference Range Interpretation Comments MCH (test code = MCH) 25.9 pg 27.0-31.0 [facility] WlhqwtsSMPMVQZRKG1895-97-95 11:50:0031.6[facility]annHEMATOLOGY 2019-10-04 11:50:0014.9[facility] XlwkyrgDRVYPMWYXH1331-16-44 11:50:29145Dcjpkcgg PrwoxnaLLAVJOMJCB3798-35-95 11:50:008.3[facility] HermannCARDIAC FYDTQKP8988-33-31 21:57:0081[facility]annCARDIAC ZTIFWZU1324-04-05 21:57:00<0.02[facility]annCHEM IDFQZ5278-03-29 21:57:0085[facility]annCHEM EYLMA8908-89-78 21:57:0038[facility]annCHEM DZEKW0152-03-12 21:57:001.00[facility]annCHEM HHQIH8238-45-69 21:57:20258Ononivsz HermannCHEM YUANE7135-21-03 21:57:005.3 [facility]CHE[facility] PUAQH6533-39-66 21:57:22862Swvwtxjm HermannCHEM PANEL 2019-10-03 21:57:0024[facility]annCHEM SHIXJ0330-10-20 21:57:008.5[facility]annCHEM CKXWN6125-39-83 21:57:006.1[facility]annCHEM TLWJW0207-78-75 21:57:002.6[facility]annCHEM PSKTV2661-17-57 21:57:0012[facility]annCHEM EZRTZ2743-57-18 21:57:0019[facility]annCHEM VFPVJ9544-52-71 21:57:0052 [facility]CHE[facility] ULUBV3118-01-92 21:57:000.3[facility]annCHEM PANEL 2019-10-03 21:57:0011.3[facility]annCHEM SQEWQ7947-26-07 21:57:00 Test Item Value Reference Range Interpretation Comments B/C Ratio (test code = B/C Ratio) 38 1 6-25 [facility] XQEAV3373-40-62 21:57:003.5[facility]annCHEM PANEL 2019-10-03 21:57:00 Test Item Value Reference Range Interpretation Comments A/G Ratio (test code = A/G Ratio) 0.7 1 0.7-1.6 [facility]CHE[facility] DPFBQ4731-93-71 21:57:0056[facility] CEFEPIME:SUSC:PT:ISOLATE:ORDQN:ONL5337-89-84 21:05:00Proteus mirabilisMemorial HermannURINE AND NUDWC9734-68-82 21:05:00Slight *ABN*(10/03/19 3:05 PM)[facility] YANAJ3850-10-44 21:05:00 Test Item Value Reference Range Interpretation Comments UA Spec Grav (test code = UA Spec 1.017 1 Grav) [facility] AIZKF0534-26-57 21:05:00 Test Item Value Reference Range Interpretation Comments UA pH (test code = UA pH) 7.0 1 5.0-8.0 [facility] CBINS1224-19-39 21:05:00Negative *NA*(10/03/19 3:05 PM) [facility] SXYFI2409-78-60 21:05:00Moderate *ABN*(10/03/19 3:05 PM)[facility] PSUCZ1710-50-43 21:05:002.0[facility] QKMIM2209-68-96 21:05:00Positive *ABN*(10/03/19 3:05 PM)[facility] CMJUD9614-95-40 21:05:00Large *ABN*(10/03/19 3:05 PM)[facility] IMEWH6407-37-02 21:05:0090[facility] CZMWV7936-65-98 21:05:00 9[facility] LSJFU6197-33-04 21:05:004[facility]annCHEM PANEL 2019-10-03 20:43:00<0.05[facility]annCHEM RQEQU0256-10-86 20:43:001.3 [facility] OreorlkVKJGNRMBDW6483-95-13 20:43:0020.6[facility]annHEMATOLOGY 2019-10-03 20:43:004.33[facility] TlnqirxKJDLPKFYWU8771-29-46 20:43:0011.2[facility] WarauucNADFNBXIVD3036-53-80 20:43:0035.9[facility] FiwhywxXKIMGKFUVR3781-79-61 20:43:0083.0[facility] AhdurulUDONCSWYBF4001-80-12 20:43:00 Test Item Value Reference Range Interpretation Comments MCH (test code = MCH) 25.9 pg 27.0-31.0 [facility] QxoowrwSBFIPOXNZX4057-24-55 20:43:0031.2[facility]annHEMATOLOGY 2019-10-03 20:43:0014.9[facility] GjxujrtBFJSZZTMSC7499-06-21 20:43:51776Nxzpqfua UaokmyhNUFBHXLSYB0913-90-71 20:43:007.9[facility] DsclphwAMVNAFXNJW2732-37-80 20:43:00 Test Item Value Reference Range Interpretation Comments PT (test code = PT) 14.3 s 12.0-14.7 [facility] FzsjvtpKIOFUDMKEY2847-30-99 20:43:00 Test Item Value Reference Range Interpretation Comments INR (test code = INR) 1.11 1 0.85-1.17 [facility] UhqrqkfJAMXSCUVMK2728-06-03 20:43:00 Test Item Value Reference Range Interpretation Comments PTT (test code = PTT) 24.8 s 22.9-35.8 [facility] MprvalhHMQYRFRBGD4430-28-34 20:43:0088.7[facility] HermannHEMATOLOGY 2019-10-03 20:43:005.5[facility] KaarovxDNCKJVOMHS9419-53-42 20:43:005.3[facility] SekfsqbTHTRWKQNJA0359-11-03 20:43:000.3[facility] HejxpmrBESUTQJKZB2559-65-71 20:43:000.2[facility] FvonhzeMUBQYMDEWP4476-82-59 20:43:0018.2[facility] CFALTMTFZM5762-24-11 20:43:001.1[facility] TyyqhjlTFZDQYTCSY9264-68-49 20:43:001.1 [facility] NliluteLYXXDIQNZN9629-18-68 20:43:000.1[facility] HermannMR, EXTREMITY, LOWER, JOINT, WITHOUT CONTRAST, OOYJP0587-56-54 17:12:00Reason for exam:->RT hip pain, concern occult fracture, prior CT negativeFINAL REPORT Indication: RT hip pain, concern occult fracture, prior CT negative TECHNIQUE: Multiplanar multisequence MRI examination of the right hip was performed without intravenous contrast. COMPARISON: Radiographs from the same date FINDINGS: There is a full-thickness rupture of the iliopsoas tendon at its lesser trochanter attachment with approximately 5 cm tendon retraction proximally. There is associated marked edema and fluid in the tendon gap. There is edema extending proximally along the iliopsoas myotendinous junction and muscle. There is mild edema in the adjacent right adductor musculature as well. There is no bony avulsion. There is no fracture or traumatic malalignment. Mild degenerative changes are seen in the right hip without osteonecrosis or bony erosion. There is no significant joint effusion. There is partial visualization of degenerative changes of the lower lumbar spine. IMPRESSION:1. Rupture of the right iliopsoas tendon as above. Signed: Zoltan Narayan MDRephca midwest division Verified Date/Time: 09/17/2018 17:12:01 Reading Location: [facility] C013X Ortho Consult Reading Room RAD, KNEE, 3 VIEWS, QIGVT8693-72-31 15:21:00Reason for exam:->KNEE PAIN Should this be performed at the bedside?->NoFINAL REPORT RIGHT KNEE THREE VIEWS History provided: Knee pain Considerable joint space narrowing medially with mild spurring indicative of medial compartment degenerative arthri tis. No varus or valgus deformity. Narrowed patellofemoral space. No signs of joint effusion. Incidental vascular calcification. IMPRESSION: Chronic degenerative arthritis most prominent in the medial compartment. Signed: Ulises Walton Verified Date/Time: 09/17/2018 15:21:02 Reading Location:[facility] Diagnostic Imaging Reading Room - [facility] F1 1.310.12 RAD, HIP, 2 VIEWS, VZUTG7174-98-39 15:19:00Reason for exam:->Rt Hip Pain, traumaShould this be performed at the bedside?->NoFINAL REPORT RIGHT HIP History provided: Right hip pain No fracture or dislocation. Hip joint space well maintained. Evidence of extensive multilevel fusion procedure in the lumbar spine. Signed: Ulises Walton Verified Date/Time: 09/17/2018 15:19:53 Reading Location: [facility] Diagnostic Imaging Reading Room - [facility] F1 1.310.12 Electronically signed by: ULISES Marin 09/17/2018 03:19 PMURINE AND KRIFR9980-70-58 08:10:00Negative (12/10/16 3:10 AM)[facility] TTXYI1758-78-49 08:10:00<1[facility] RCOEU1611-09-15 08:10:00Negative (12/10/16 3:10 AM)[facility] DEGMC9394-08-96 08:10:00Negative (12/10/16 3:10 AM)[facility] AISFZ5372-42-66 08:10:00Negative *NA*(12/10/16 3:10 AM)[facility] OMMGN6814-48-00 08:10:00Light Yellow *NA*(12/10/16 3:10 AM)[facility] ZNYWI6504-09-45 08:10:00Clear (12/10/16 3:10 AM)[facility] RHOOD7690-56-75 08:10:006.5[facility] GCXPY1618-53-85 08:10:001.008[facility] HermannCARDIAC CZJHFBK5288-82-94 07:48:0059[facility] HermannCARDIAC FYOZAAX9811-87-77 07:48:00<0.02[facility] HermannCARDIAC VBREGVT7193-30-07 07:48:001.4[facility] HermannCARDIAC ENZYMES 2016-12-10 07:48:002.4[facility] HermannCHEM ZWFMM3854-18-77 07:48:0055[facility] HermannCHEM KUMMO1907-44-87 07:48:0023[facility] HermannCHEM VWFZG2806-21-56 07:48:003.5[facility] HermannCHEM RWVVU4827-72-59 07:48:0016.2[facility] HermannCHEM YAJIG5894-92-77 07:48:001.04[facility] HermannCHEM NNQYJ7695-68-09 07:48:91438 [facility]annCHEM DTZYQ8389-57-91 07:48:0024[facility] HermannCHEM PANEL 2016-12-10 07:48:80223Uniknbsh HermannCHEM FAKEP4279-50-61 07:48:001.1[facility] HermannCHEM QGQAW2769-55-47 07:48:009.6[facility]annCHEM TGRQA1505-71-63 07:48:007.3[facility] HermannCHEM AEALG6055-72-86 07:48:49895Lkhybyxk HermannCHEM QAGGH0902-48-68 07:48:0022[facility] HermannCHEM EVEGU3435-40-07 07:48:005.2 [facility] HermannCHEM BRBEO6324-91-00 07:48:000.1[facility] HermannCHEM PANEL 2016-12-10 07:48:0012Mem[facility] HermannCHEM KOOOC8512-84-48 07:48:0058[facility] HermannCHEM JXXWK6321-78-40 07:48:0015Mem[facility] HermannCHEM MFUJH6229-31-00 07:48:003.8[facility] HiptrqdLUQERMPHWK0604-15-65 07:48:0010.0[facility] MMZWOVQLEF5969-76-07 07:48:0083.2[facility] AoggtjaRKUXNIXXUP8375-73-26 07:48:00 38.1[facility] BudkyrhDFNBQGVQGZ7006-85-89 07:48:0012.3[facility] HermannHEMATOLOGY 2016-12-10 07:48:004.57[facility] CearfkiFTOSMDKRKD6164-12-03 07:48:0014.1[facility] CnqgdkaRSETSDXXTW2346-81-23 07:48:0032.2[facility] YsiiywqLSBXQLKKSV8028-25-85 07:48:009.2[facility] MjobpueHBKJZCZODZ0701-93-87 07:48:00 Test Item Value Reference Range Interpretation Comments MCH (test code = MCH) 26.8 pg 27.0-31.0 [facility] MzyrpitDKWJXUXKEA8884-27-18 07:48:39647Njsuiwhi HermannHEMATOLOGY 2016-12-10 07:48:00 Test Item Value Reference Range Interpretation Comments PTT (test code = PTT) 26.5 s 22.9-35.8 [facility] YqrphqlDDOHXWIFVT2417-89-25 07:48:000.99[facility]annHEMATOLOGY 2016-12-10 07:48:00 Test Item Value Reference Range Interpretation Comments PT (test code = PT) 13.3 s 12.0-14.7 [facility] JpdgwrhPQZLMMYCFR7417-17-16 07:48:000.7[facility]annHEMATOLOGY 2016-12-10 07:48:001.9[facility] TdchsclTKCEUSFSZR2417-20-53 07:48:000.1[facility] OlqqgfnNZMHPYSWGB0018-61-63 07:48:000.5[facility] LuhdmrzYYKVRRCIBX3600-67-16 07:48:0068.0[facility] DsxvdavYODNFVLMBB9941-04-46 07:48:004.7[facility] KUKOWFCMDX4737-89-14 07:48:007.4[facility] CwzfanwCNHCUZXURN3599-19-59 07:48:00 19.4[facility] VuwbtozJLGDFFWMYQ2178-65-81 07:48:006.8[facility]annHE[facility]OLOGY 2016-12-10 07:48:000.5[facility] HermannCARDIAC PAYYXFR0846-97-55 08:34:00<0.02 [facility]annCARD[facility]AC TWDIDBL6675-74-93 08:34:001.9[facility]annCARDIAC MULSXSJ4993-74-71 08:34:0082[facility]annCARDIAC BVRHAEY5549-68-88 08:34:00 2.3[facility] HermannCHEM KESTM8850-25-01 08:34:0013.0[facility]annCHEM PANEL 2015-06-09 08:34:0065[facility]annCHEM XLPKF0621-50-79 08:34:0020[facility]annCHEM YLXBR1453-17-15 08:34:0013[facility]annCHEM KYDVY5251-85-64 08:34:000.6[facility]annCHEM JLBFY0688-36-81 08:34:0010.9[facility]annCHEM XJJJH2723-42-79 08:34:0047[facility]annCHEM OAPRB4266-16-27 08:34:001.2 [facility]annCHE[facility] AKYPO6074-23-37 08:34:003.4[facility]annCHEM PANEL 2015-06-09 08:34:0022[facility]annCHEM VOURE5783-63-81 08:34:003.9[facility]annCHEM NADZA4187-00-42 08:34:0028[facility]annCHEM JZJNL5490-53-68 08:34:14169Pqjegnqp HermannCHEM ILZUE9965-88-61 08:34:009.1[facility] HermannCHEM DENXI8297-72-23 08:34:007.4[facility]annCHEM VCCWR0331-54-59 08:34:004.0 [facility]annCHEM GOSQD1031-62-18 08:34:39802Pgfphdir HermannCHEM PANEL 2015-06-09 08:34:0020[facility] HermannCHEM MXDVP6481-06-40 08:34:000.9[facility] HermannCHEM WCNUY0446-53-85 08:34:73486Wpnlcibx HermannCHEM TVZKA7078-51-59 08:34:001.8[facility] MvflrkxBNBUQWLTVC8326-95-43 08:34:00 Test Item Value Reference Range Interpretation Comments PTT (test code = PTT) 26.7 s 22.9-35.8 [facility] XivnaudBPFGLKHXFW5022-17-62 08:34:00 Test Item Value Reference Range Interpretation Comments PT (test code = PT) 12.8 s 12.0-14.7 [facility] KyyoneeXSPGYMXNHL5994-95-58 08:34:000.93[facility]annHEMATOLOGY 2015-06-09 08:34:99933Yynvddll KnlzpolPLDXWPILMX4655-29-26 08:34:009.5[facility] JbscqfcACUKUNGPGS7694-55-00 08:34:0014.8[facility] WqfzcuwAYDYATZHSS0476-71-13 08:34:0032.5[facility] ZgleeunFKKKYVVUHY9140-18-14 08:34:005.21[facility] ITWTSPXSZG2197-69-96 08:34:0013.7[facility] InmdwcyGTPUBUCBWL6683-68-83 08:34:00 10.6[facility] ZiyjtjpVITZEMYXGY3009-59-51 08:34:0042.2[facility]annHEMATOLOGY 2015-06-09 08:34:0081.0[facility] NywugujPZETCGOBOX1802-41-20 08:34:00 Test Item Value Reference Range Interpretation Comments MCH (test code = MCH) 26.3 pg 27.0-31.0 [facility] MrghveoJENFRNVLSZ7530-94-48 08:34:000.1[facility]annHEMATOLOGY 2015-06-09 08:34:0065.9[facility] UiuokndMJYPRYILAC3823-79-58 08:34:0026.0[facility] JwaoiqxHVTUNQLADK0598-20-93 08:34:001.4[facility] SotrcukIKCEDCOPIH2376-17-39 08:34:006.1[facility] KykhhldGHMMMDWCZJ1607-35-82 08:34:000.6[facility] TQKTQEHACZ7855-83-26 08:34:000.2[facility] MefmnuzOPSRVUMPNT7688-50-30 08:34:000.7 [facility] AluulyeFHHWRMMCJG3296-75-31 08:34:002.8[facility]annHEMATOLOGY 2015-06-09 08:34:007.0[facility]annURINE AND CXTJU8321-24-94 04:51:001 [facility] EIEVG6409-05-21 04:51:001[facility] AND DKEVB4273-52-07 04:51:00Negative (04/05/15 11:51 PM)[facility] VWHUK5796-04-02 04:51:002[facility]annUR[facility] AND FMCZG2471-49-01 04:51:00 Negative *NA*(04/05/15 11:51 PM)[facility] VDUPI5017-33-44 04:51:006.0[facility]UR[facility] AND WQLTA4063-60-85 04:51:00Clear (04/05/15 11:51 PM)[facility] XPSEX5959-26-17 04:51:001.006[facility] URINE AND GAPEX8047-09-94 04:51:00Light Yellow *NA*(04/05/15 11:51 PM)[facility] NUFJH3888-14-73 04:51:00Negative (04/05/15 11:51 PM)[facility] HDQXV1843-08-71 04:51:00Negative (04/05/15 11:51 PM)[facility]annCARDIAC WATGNTH4983-27-90 02:44:001.8[facility] HermannCARDIAC ENZYMES 2015-04-06 02:44:10613Vnxsinkx HermannCARDIAC LIKOSRV9422-40-71 02:44:000.02 [facility]annCARDIAC COYACUF8043-19-78 02:44:001.7[facility] HermannCHEM PANEL 2015-04-06 02:44:0058[facility] HermannCHEM DEIUF3867-87-45 02:44:000.3[facility] HermannCHEM AWKPX5749-66-62 02:44:0058[facility] HermannCHEM AJXHI4461-54-35 02:44:003.8[facility] HermannCHEM JPNMM2659-98-00 02:44:0019[facility] HermannCHEM NCFGE5014-99-09 02:44:14184Roddfopd HermannCHEM CIHYS2258-40-15 02:44:007.8 [facility] HermannCHEM JBPCP0057-68-37 02:44:0029[facility]annCHEM PANEL 2015-04-06 02:44:009.8[facility]annCHEM TTTVH4329-78-91 02:44:004.7[facility] HermannCHEM CCKGQ6540-03-39 02:44:59787Rsmjvvyw HermannCHEM MMGIF5401-55-88 02:44:50237Ejdubegp HermannCHEM MYYEX6301-86-91 02:44:0021[facility]annCHEM ZRIAV7806-24-66 02:44:0016[facility]annCHEM HFFRC4991-51-17 02:44:001.0 [facility]annCHEM UHDFD5843-87-65 02:44:001.0[facility] HermannCHEM PANEL 2015-04-06 02:44:0016[facility] HermannCHEM WLXTC3717-01-59 02:44:004.0[facility] HermannCHEM WUQCP9140-27-33 02:44:0011.7[facility] JzkjzryRIBCAYRHAS7469-19-62 02:44:000.0[facility] ZlotwyxTOMYZTWMCF6193-41-43 02:44:000.4[facility] JNNTQJNOWW8864-69-18 02:44:008.1[facility] MdjxyhmFUQABJBYER9382-88-33 02:44:001.6 [facility] XpxpbftGDZAWSFXWA6375-33-50 02:44:003.6[facility] HermannHEMATOLOGY 2015-04-06 02:44:000.4[facility] MysgyiiUQOPNMURHB2848-74-45 02:44:000.5[facility] OvvgwbgXLFACLLOJE2613-39-77 02:44:0015.3[facility] XqsetnzVYQMODKFHE1232-91-84 02:44:0076.4[facility] BobufrhNEGQNUXXJI3150-06-34 02:44:004.3[facility] QPJXLIMXJX8281-66-97 02:44:0014.5[facility] XcdpbxcDFQVBUKPGE9929-30-30 02:44:00 Test Item Value Reference Range Interpretation Comments MCH (test code = MCH) 26.4 pg 27.0-31.0 [facility] YwfiktsGPUXKZSNXI9106-69-49 02:44:0031.7[facility] HermannHEMATOLOGY 2015-04-06 02:44:0083.4[facility] MiiwcgsOFZEWIPKTK1705-66-53 02:44:0045.6[facility] FibivkcDIFVLORRYA8603-31-63 02:44:005.47[facility] CdtpgpoGUGXROJHSA0057-19-19 02:44:0010.6[facility] FhrieolCUUJODDXFZ6362-12-90 02:44:0013.9[facility] DKCMFEACCQ1152-94-46 02:44:009.3[facility] BzbghcjJOHOZZTPFL7873-46-62 02:44:60174 [facility] ExxibxgGERNSZPPON2216-78-28 02:44:00<2[facility] HermannTOXICOLOGY 2015-04-06 02:44:002.1[facility] HrvuhmtJPESCGAWKB2509-71-58 02:44:00<0.003 [facility] YzoearzPWGWMMSVDL8098-15-12 02:44:00<3[facility] HermannCHEM PANEL 2014-04-16 20:50:001.5[facility] HermannCHEM YSLEK3983-38-97 20:50:003.5[facility] HermannCHEM ODPLD9665-39-36 20:50:0047[facility]annCHEM UOTAC7662-03-89 20:50:59158Vrbfdkqw HermannCHEM ULVXY3097-30-26 20:50:71477Uqryptrb HermannCHEM USEMZ1636-30-68 20:50:004.9[facility] HermannCHEM GENZA5454-38-37 20:50:76829 [facility]annCHEM UUTWQ6991-58-43 20:50:0025[facility]annCHEM PANEL 2014-04-16 20:50:0029[facility]annCHEM XCFTQ3858-81-89 20:50:0010.9[facility] HermannCHEM RPEGK0014-77-94 20:50:001.2[facility] HermannCHEM IIAEJ8525-45-17 20:50:009.3[facility] DugjfyzZUCYHKVSHG9737-16-50 20:50:009.6[facility] GDTLAOFZPB2688-05-36 20:50:009.7[facility] TohskplCJZBAAXYDR4800-28-11 20:50:00 13.8[facility] JvymyeuBRESPLGXES1112-84-11 20:50:0032.9[facility] HermannHEMATOLOGY 2014-04-16 20:50:004.95[facility] LyjxsqiDOYXJBIIQF8183-78-33 20:50:0082.4[facility] XmvgzllDILPBZWISB7202-21-16 20:50:0013.4[facility] NbwyfzmCQVWAQMPYK2919-30-96 20:50:45906Jmkubaxe UekinrdTLTPSRIVLM8945-86-89 20:50:0040.8[facility] DQWZPNTPLJ8876-33-51 20:50:00 Test Item Value Reference Range Interpretation Comments MCH (test code = MCH) 27.1 pg 27.0-31.0 [facility] PjobwufNJORFJBFKD6246-86-29 20:50:000.3[facility] HermannHEMATOLOGY 2014-04-16 20:50:000.0[facility] GximwwtAQVMNHKMZP8552-39-55 20:50:000.0[facility] FrvzfcsECGEDABLUG9639-51-73 20:50:008.7[facility] AxrkotmWANIGFKRJS8253-37-14 20:50:000.8[facility] ZnpbfhnABEQXRBSFY7402-94-46 20:50:000.0[facility] [place] FPMHESDRYH5587-30-15 20:50:000.2[facility] QbyvecgJQTHTFABBV5142-73-01 20:50:002.7 [facility] RhgxmffSGSTYLKGQH1297-74-50 20:50:008.1[facility] HermannHEMATOLOGY 2014-04-16 20:50:0089.0[facility] HermannCHEM MDCMU5136-94-85 08:38:0052[facility] HermannCHEM LYWKP6495-31-35 08:38:0099[facility] HermannCHEM UUNEJ5375-16-31 08:38:0029[facility] HermannCHEM UDPOC3717-98-13 08:38:27987Alzfucxx HermannCHEM PQACP3607-90-56 08:38:008.9[facility] HermannCHEM KDEWC5379-96-57 08:38:0027 [facility]annCHEM PVFVP7223-18-06 08:38:21130Bxcwyhiw HermannCHEM PANEL 2014-04-14 08:38:001.1[facility] HermannCHEM WJKHW9166-64-78 08:38:004.7[facility] HermannCHEM NDAGK8153-77-90 08:38:006.5[facility] HermannCHEM LNDWP2734-60-69 08:38:002.6[facility] HermannCHEM ISRWD9415-26-32 08:38:0015[facility] HermannCHEM ALOUX8384-45-24 08:38:0010[facility] HermannCHEM ELFZD1785-39-74 08:38:0041 [facility]annCHEM FTFHF5895-01-48 08:38:000.4[facility] HermannCHEM PANEL 2014-04-14 08:38:000.7[facility] HermannCHEM GUTYK7019-53-45 08:38:003.9[facility] HermannCHEM NAXDR9884-83-86 08:38:0025[facility] HermannCHEM JTTLE3356-72-13 08:38:0011.7[facility] HermannCHEM QPOFH3544-69-66 08:38:001.8[facility] HermannCHEM LFWAM4975-58-76 08:38:002.4[facility] GprmrbqNQXEPANDMM7109-40-56 08:38:0018.1 [facility] AvcnhqtZKILYEPLZC1177-83-39 08:38:05271Irxadmqo HermannHEMATOLOGY 2014-04-14 08:38:0013.8[facility] XdsywbrFEVUDRVEZX4014-31-85 08:38:0032.2[facility] RzmqteqXWPUIAXKYV3402-77-44 08:38:00 Test Item Value Reference Range Interpretation Comments MCH (test code = MCH) 26.8 pg 27.0-31.0 [facility] MzqnwicEFCEJGVMWF6974-72-62 08:38:0037.1[facility] HermannHEMATOLOGY 2014-04-14 08:38:0083.2[facility] RljgmwlZRSUXRIQRU2843-69-54 08:38:004.47[facility] EhzxmjhVJPKWZJZXY7289-34-43 08:38:0012.0[facility] IigsrijGVDCMFAFHK0545-46-42 08:38:009.0[facility] DkjenkvWJNTIIRITP4296-99-38 08:38:000.0[facility] [place] JDBYUSXSAD6175-18-15 08:38:00Slight *ABN*(04/14/14 3:38 AM)[facility] RBTNUNNRNJ2760-81-88 08:38:000.3[facility] MnfucjuFRPEVDZGLE9715-22-49 08:38:000.0 [facility] PhkzecnENRKDRPNLJ1274-98-46 08:38:0017.2[facility] HermannHEMATOLOGY 2014-04-14 08:38:000.6[facility] OoolwrmQZNLLEYJQS3039-58-61 08:38:000.1[facility] WtfzgniOKUQXWZYYV0458-56-38 08:38:0094.6[facility] RpethtvASEAUZCCFE5838-91-01 08:38:003.5[facility] BwnpsmjMIZJCIGIIC6880-97-44 08:38:001.8[facility] [place] HDANNZMGKE0331-05-30 08:38:000.0[facility] WugysskZAQSXEFMTR7837-41-83 08:38:00 Normal (04/14/14 3:38 AM)[facility] WolmuscDROLMWNILL4551-50-97 08:38:00Normal (04/14/14 3:38 AM)[facility] HermannSPECIAL XQCMNUWHO4339-25-54 08:38:008.3[facility] HermannCHEM AWZJH6482-92-82 07:30:001.8[facility] HermannCHEM NVYWX7996-75-95 07:30:003.4[facility] HermannCHEM SSARC7689-26-49 07:30:0066[facility] HermannCHEM AVWFX4709-63-53 07:30:0030[facility] HermannCHEM PFFOE5966-64-38 07:30:009.3 [facility]annCHEM XMQHT8557-81-96 07:30:60333Curybkan HermannCHEM PANEL 2014-04-13 07:30:0011.1[facility] HermannCHEM CCBNA6150-51-25 07:30:004.1[facility] HermannCHEM SZHIG7719-31-36 07:30:0016[facility] HermannCHEM SYOVL3271-47-83 07:30:59945Mvouxfyo HermannCHEM HBTWV1223-55-33 07:30:49400Nxcecqhp HermannCHEM SJFXH2870-75-85 07:30:000.9[facility] YqyxpgsSGPFQLXFSD6523-41-72 07:30:62808 [facility] YjvytcmGTGLCWCXFG1293-72-93 07:30:0013.5[facility] HermannHEMATOLOGY 2014-04-13 07:30:009.7[facility] QnmzgqlEHUHGCDUGO3204-53-09 07:30:009.6[facility] FjiqcjfYBLEXKRCCZ6636-67-94 07:30:004.49[facility] LfgcbdrYICIYITXMH2652-61-52 07:30:0012.0[facility] UneewyvCEZAMKZOWR5909-59-48 07:30:0083.2[facility] QIHDJQZDLU5811-62-09 07:30:0037.4[facility] FatjwezCHFLPNUZJF7225-47-38 07:30:00 32.1[facility] ZjaswzpHXHBBEKFFY1077-90-67 07:30:00 Test Item Value Reference Range Interpretation Comments MCH (test code = MCH) 26.7 pg 27.0-31.0 [facility] PnvfhexQYJHXBCPSW3823-76-29 07:30:000.0[facility] HermannHEMATOLOGY 2014-04-13 07:30:008.9[facility] VrdbaclGWPNRLGTJW0492-92-91 07:30:0092.8[facility] BhxcqvjUQOSWNVJHW6325-91-50 07:30:005.4[facility] NqgxifeKOHZGZBSGY1121-99-46 07:30:000.0[facility] ItzorylZSSNUXIIID2759-33-86 07:30:001.8[facility] EOXWCJTZNV7415-08-98 07:30:000.5[facility] MhzvkddKDWMSUJWQC9309-80-52 07:30:000.2 [facility] JpagdlhKCIDGDGLCY0236-42-09 07:30:000.0[facility] HermannHEMATOLOGY 2014-04-13 07:30:000.0[facility] ZczrsgpBLNDM1281-18-05 00:20:08Negative (04/12/14 7:20 PM)[facility] HermannCARDIAC JWSJAZV9171-65-95 16:10:001.9[facility] CARDIAC XVUNVQB1209-47-98 16:10:0024[facility] HermannCARDIAC DHUAKBX7436-99-23 16:10:00<0.02[facility] HermannCARDIAC RZXLWKW6206-32-51 16:10:000.6[facility] HermannCARDIAC PIWNJJM6409-54-33 16:10:0031[facility] HermannCHEM RTLTZ7638-88-00 16:10:00<0.05[facility] HermannCHEM UDDVN9162-93-20 16:10:000.9[facility] SULRLWZQIZ4025-43-28 16:10:001.02[facility] VabktobCABKBFCACQ0251-55-46 16:10:00 Test Item Value Reference Range Interpretation Comments PT (test code = PT) 13.3 s 12.0-14.7 [facility] CULDGBB7522-10-65 20:14:47890Gbgmdkbi [place] KTCBTDRTOZ2692-46-40 18:51:00Few /LPF *NA*(06/22/2012 13:51:00)[facility] NCTXEKBXLU5214-43-04 18:51:00Few /LPF *NA*(06/22/2012 13:51:00)[facility] YULKQUOVKN2544-26-22 18:51:003[facility] NbfroyrEIYTZSXRDV7706-68-73 18:51:001 [facility] CpxayaaCTYRNFCOEU7761-11-59 18:51:00Moderate *ABN*(06/22/2012 13:51:00) [facility] MvladkfWOHJNLCGNK7051-61-23 18:51:00Negative (06/22/2012 13:51:00) [facility] FimypxzYOJOMDCLJN4736-76-41 18:51:00Negative (06/22/2012 13:51:00) [facility] QyvojbxBDCGBEICRK7087-98-19 18:51:00Negative mg/dL *NA*(06/22/2012 13:51:00)[facility] DhrakggDWFVYIOGGW6409-93-93 18:51:00Negative *NA*(06/22/2012 13:51:00)[facility] SehqvuwMTMNXGWWQN2275-23-33 18:51:95154 mg/dL *ABN*(06/22/2012 13:51:00)[facility] OpwuvivADHSCRIUMZ6004-76-04 18:51:006.0[facility] [place] EGEKEGFVWN0665-44-53 18:51:00Negative mg/dL (06/22/2012 13:51:00)[facility] OblslieTUVALNRZDS4184-29-55 18:51:001.008[facility] NjpdrkoYYJPHKTRGN5257-70-96 18:51:00Yellow *NA*(06/22/2012 13:51:00)[facility] HibkerbSTMAESTXFE8318-79-13 18:51:00Clear (06/22/2012 13:51:00)[facility] CrihaxbZDEUHBELP9387-55-68 18:28:00 52[facility] FyfsjioAOIGQSSGD6332-08-29 18:28:0050[facility] HermannCHEMISTRY 2012-06-22 18:28:0025[facility] MlzlhguLUARHNNVS6341-14-87 18:28:009[facility] KukqcthYDBBEGPDU6290-35-01 18:28:0010.7[facility] UlwrhqyNCPDMEEGR0674-85-85 18:28:000.2[facility] SzrglcdNIHRCRVIK0706-97-93 18:28:0013[facility] NBUHTQBGJ1981-93-05 18:28:004.1[facility] ZstdqhqGYATCEDQR5406-49-72 18:28:000.9 [facility] EccmgjmGJZYGAUTD5082-95-95 18:28:003.6[facility] HermannCHEMISTRY 2012-06-22 18:28:003.7[facility] FnqhkqdXPXKRHOPY6663-89-87 18:28:17644Sjyrdfbj HsfqglnFXLRRVOXN5273-41-90 18:28:0014[facility] NshldtyIIDNJRGKV0660-96-76 18:28:60967Uiryjxoa ZuvwxjuELBBNTXEH7488-85-81 18:28:001.1[facility] EDEIJCIAJ9184-76-20 18:28:12558Sfxoorvm YhdptsjZHDQLOKFF4745-10-80 18:28:009.3 [facility] TnmuaitKLZGJLIFU2617-15-62 18:28:0030[facility] HermannCHEMISTRY 2012-06-22 18:28:007.7[facility] HermannBEDSIDE GLUCOSE RLUAHML7280-66-35 16:05:00 160[facility]annBEDSIDE GLUCOSE PEDSEGC2588-63-48 12:08:61007Jemyojyl Jasbir WLYBGMQWJI1477-41-67 09:10:003.93[facility] ZdinsimNPTRGAGVNA9575-76-99 09:10:00 32.7[facility] KkkmwwuTBSBWUQSIK3777-65-76 09:10:007.3[facility] HermannHEMATOLOGY 2012-06-11 09:10:0083.2[facility] WngnqaoTFGNRXXUED6253-09-26 09:10:00 Test Item Value Reference Range Interpretation Comments MCH (test code = MCH) 28.5 pg 27.0-31.0 N [facility] VrwhnlxWTDNCSQKBU4335-24-24 09:10:0013.9[facility] HermannHEMATOLOGY 2012-06-11 09:10:0034.2[facility] DyozimyAOILCQXKEU8692-53-12 09:10:008.5[facility] EsdzallIEMUWPSATL6959-08-08 09:10:27447Uzqcrstw VqyhjhuXMBLNWWREI9155-24-88 09:10:0011.2[facility] WhfcgirMTSBIZKCYN6744-46-52 09:10:000.1[facility] LZXRJVZTZH1055-89-84 09:10:009.3[facility] JbzsctcXAAOYHLNMK1287-31-45 09:10:003.6 [facility] TcvkatoAJHQDJQUUA3774-73-41 09:10:000.7[facility] HermannHEMATOLOGY 2012-06-11 09:10:000.5[facility] FlcczhhAGAHXHNBFL7077-56-38 09:10:0049.3[facility] DuvikmlMQBXQLHRJD8603-14-27 09:10:002.5[facility] CsnlrxrHKKQLGGZHA9874-83-97 09:10:006.8[facility] HrdqtwoJOWYBPBWNG6648-03-40 09:10:001.0[facility] IEYISXWURH6867-68-75 09:10:0033.6[facility] HermannBEDSIDE GLUCOSE TESTING 2012-06-11 02:13:95154Zcgchjow DamhwuuMIXAEUMXV8865-92-44 09:45:0062[facility] BwmytzjDCKJWWMGG4551-07-38 09:45:0030[facility] BjzfoasMNMKDCCKW8561-57-03 09:45:0054[facility] IqmqvdvNFITBLEVM5682-30-15 09:45:004[facility] HermannCHEMISTRY 2012-06-10 09:45:0092.0[facility] OvtcfxmEWYDTLWJM7294-40-43 09:45:007.36[facility] OzmakkeOBYGHAFHI2968-14-15 09:45:00N/A (06/10/2012 04:45:00)[facility] [place] ZWKQNMMXC1164-41-77 09:45:00A Line (06/10/2012 04:45:00)[facility] RPQDVGOOX5802-33-52 09:45:0021.0[facility] XgvuakjNEMRPTCGA7146-28-10 09:45:008.1 [facility] HuyfiptEUMWNHDQB2134-57-62 09:45:53254Knmwtgni HermannCHEMISTRY 2012-06-10 09:45:008.4[facility] XcscvqoVRJUMYHHM8150-76-12 09:45:0030[facility] PigdomySRIULUBPL0754-67-22 09:45:008[facility] OicugeuTHKTAVGQA9087-45-81 09:45:00 0.7[facility] WsabxugUTPNNOCTL2390-77-67 09:45:97670Shsnchxs HermannCHEMISTRY 2012-06-10 09:45:004.1[facility] PkvzhkbZICKKBGOP9670-42-16 09:45:34894Dgxumlow JlzbjnvIKDKDDOLPF3334-63-80 09:45:00 Test Item Value Reference Range Interpretation Comments MCH (test code = MCH) 28.2 pg 27.0-31.0 N [facility] LprjsfxAELZNSWRBY3369-35-33 09:45:008.7[facility] HermannHEMATOLOGY 2012-06-10 09:45:0013.7[facility] LopdpnfVRGCFXWRHQ1972-32-04 09:45:0033.8[facility] OiqxndtPDHSAHWGEL5625-07-64 09:45:90796Ilcbsviz LthamctDCFBWZQARD8544-72-10 09:45:0083.6[facility] HnhszigZNDSUYEILR8074-45-33 09:45:0010.4[facility] GZUJBDWNAL3875-54-29 09:45:0030.9[facility] YjgvmgzXPFFYEFEEB6840-42-68 09:45:00 3.70[facility] MsgqgejYUUBUHPDOL3785-84-14 09:45:008.4[facility]annHEMATOLOGY 2012-06-10 09:45:000.5[facility] WguncqlRJYXTIKBQW9730-96-54 09:45:000.1[facility] VfcddkjZVABBWHFLD5568-53-09 09:45:004.6[facility] SbqlieiJZDKBSCREF6968-06-27 09:45:008.5[facility] CfcgljvKVTDIVWOWB7991-93-34 09:45:006.1[facility] [place] UBNHOADOIF7716-88-00 09:45:000.7[facility] JfrybrtXHAZXWTMNL8483-89-51 09:45:000.7 [facility] ByxlpocDAGURIVRNU3956-47-36 09:45:002.5[facility] HermannHEMATOLOGY 2012-06-10 09:45:0054.6[facility] PuxhvcdEVKQXOGVVM4599-88-36 09:45:0030.1[facility] ZtckgktBRGDKLAYX7730-09-95 17:10:00-3[facility] RovwaflJQHCMIRBF5766-87-65 17:10:0024[facility] HsgiiqsJRVIEZVIW3377-61-00 17:10:31094Nixaebaz Jasbir HSVWAWIEE4049-23-18 17:10:0099.4[facility] FvgmuejKHFLCGFPX8409-96-08 17:10:00A Line (06/09/2012 12:10:00)[facility] LdldvrlSOASRNARX4735-27-08 17:10:00SM (06/09/2012 12:10:00)[facility] AvztfgmCOYXLCUBR1336-74-85 17:10:007.0[facility] YnamhxcQXHSFFDAT2812-14-56 17:10:00N/A (06/09/2012 12:10:00)[facility] [place] TMQFXEXCI9409-36-70 17:10:0046[facility] LqtywewJYNCIONZO6966-67-96 17:10:007.32 [facility]annBACTERIAL - IPFTIIFB4907-58-17 17:00:00Negative 1(06/09/2012 12:00:00)[facility] FucacxbXHGUGOQCN4570-82-74 17:00:27529Nagaqwff [place] LZFOIIEGM8347-25-44 17:00:0011[facility] VhdybpcRIFBLDYJI3717-52-54 17:00:93749 [facility] FyypczdDRLWTTTSK5490-80-58 17:00:000.8[facility] HermannCHEMISTRY 2012-06-09 17:00:008.2[facility] WqwvwfqPQITEWGEI7282-77-11 17:00:20188Tqqwtlby SkehykxGLVUGJHJY8898-19-10 17:00:0029[facility] MbshhzyNSDWCOFOY6319-76-22 17:00:003.8[facility] RrlgvxhGUIBCDDLV2010-67-29 17:00:009.8[facility] BSASFIAQKZ2308-82-92 17:00:000.0[facility] YaeauyjXNPKTXQKPH5974-36-18 17:00:000.4 [facility] RbctdvjZAWTGSYZBR5268-29-67 17:00:000.5[facility] HermannHEMATOLOGY 2012-06-09 17:00:003.2[facility] NtwyluqYKWQEIMDVG3679-14-24 17:00:003.7[facility] BxovaazMMTWWKZPTG1500-09-45 17:00:000.5[facility] RiujyxaNXAJCNNIHF3660-52-33 17:00:005.0[facility] SwjlucsIFAVEUFWII3074-68-49 17:00:006.3[facility] MPZQJQZVHX1114-55-99 17:00:0047.0[facility] ClcyuffOKSYWZXAJQ2736-98-99 17:00:00 41.2[facility] UnvsetxPNSJJYDFSM9411-36-23 17:00:92744Pvrkcjsp HermannHEMATOLOGY 2012-06-09 17:00:0013.9[facility] HiucjdfVGIMJMSQCM4834-77-13 17:00:0033.2[facility] PxbcqjuPNELSTTOZA6690-70-54 17:00:008.4[facility] KxsbglrHKJWHHGUPV5329-86-44 17:00:00 Test Item Value Reference Range Interpretation Comments MCH (test code = MCH) 27.7 pg 27.0-31.0 N [facility] JmyjpcpPZEXVXTOLP0629-16-53 17:00:007.8[facility] HermannHEMATOLOGY 2012-06-09 17:00:0083.6[facility] XgjuyvvIVNNKMPPIK3136-61-26 17:00:0030.5[facility] FgpviuvGFUBPVXPOS9048-56-03 17:00:0010.1[facility] JbqsmzfVDFELZLPUB3054-13-18 17:00:003.65[facility]annBLOOD BANK EDUNOZZ5977-08-84 19:00:00Negative (05/31/2012 14:00:00)[facility] QlhrchmBLMYGBOIH0158-65-25 18:50:0014[facility] AsfizfcKLCZLJYRD3210-82-91 18:50:0010.1[facility] FtccsciYSOQNTPTT3866-39-68 18:50:77234Rwcofdzl HmokreiNXMZKFPUS1684-72-61 18:50:0017[facility] [place] RNYSLKKVG0317-10-79 18:50:09230Bqvbzlnf YiovkaaSOXZIVRKC1285-18-49 18:50:004.1 [facility] OejqlriYJTGTENIU7657-10-02 18:50:000.9[facility] HermannCHEMISTRY 2012-05-31 18:50:74696Yslkfzyi ArpuabuXPIGWWWBE7104-24-91 18:50:009.1[facility] LpjuzpeCADSPQPEM5135-79-49 18:50:0029[facility] OpaaeefUZBWPMLCLE4550-56-02 18:50:00 Test Item Value Reference Range Interpretation Comments PTT (test code = PTT) 30.9 s 22.9-35.8 N [facility] FkftikgXXFKXPQFIC7889-33-35 18:50:00 Test Item Value Reference Range Interpretation Comments PT (test code = PT) 13.0 s 12.0-14.7 N [facility] DfjcrbvEQNKSERBAX9578-69-89 18:50:000.96[facility] [place]
[2021-03-18] MEDS ORDERED: FAMOTIDINE 20 MG/2 ML VIAL IV ONE (19:04)
[2021-03-18] MEDS ORDERED: NA CHLORIDE 0.9% 500 ML ONE (19:04)
[2021-03-18] MEDS ORDERED: ONDANSETRON 4 MG/2 ML VIAL ONE (19:04)
[2021-03-18] MEDS ORDERED: D50W 50 ML IV ONE (19:04)
[2021-03-18] MEDS ORDERED: D5 0.45 NS 1,000 ML IV ONE (19:05)
--- NOTE | 2021-03-18 19:18 | RAD REPORT ---
EXAM DESCRIPTION: CT - Abdomen Pelvis Wo Contrast - 03/18/2021 6:48 pm CLINICAL HISTORY: Abdominal pain. ABD PAIN COMPARISON: No comparisons TECHNIQUE: CT imaging of the abdomen and pelvis was performed without contrast. Solid organ, bowel a nd vascular assessment is limited due to lack of IV and oral contrast. All CT scans are performed using dose optimization technique as appropriate and may include automated exposure control or mA/KV adjustment according to patient size. FINDINGS: The lower lung cuevas are mildly emphysematous but clear. The liver, spleen, pancreas, adrenal glands and kidneys are within normal limits for a limited non-co ntrast examination.Small bilateral hyperdense renal cysts. No bowel obstruction, free air, free fluid or abscess. Moderate retained stool is present in the rect osigmoid colon. The appendix is normal. Hardware is in place involving the lumbar spine with postsurgical changes. IMPRESSION: Moderate lumbosacral fecal retention. A limited non-contrast examination was performed as detailed.
--- NOTE | 2021-03-18 19:20 | RAD REPORT ---
EXAM DESCRIPTION: RAD - Chest Single View - 03/18/2021 6:58 pm CLINICAL HISTORY: Cough;Abdominal distention Chest pain. COMPARISON: Abdomen Pelvis Wo Contrast dated 03/18/2021 FINDINGS: Portable technique limits examination quality. Tiny diffuse calcified nodules throughout the lungs likely related to prior granulomatous infection. The heart is normal in size. No displaced fractures.
[2021-03-18 19:51] LABS: Absolute Lymphocytes (CBC) 0.9 K/uL (0.7-4.9); Basophils % 0.4 % (0-1.3); Hematocrit 34.7 % (36.0-45.0); Lymphocytes % 9.4 % (15.3-44.8); MPV 9.1 fL (7.6-11.3); RBC Red Blood Cell Count 4.31 M/uL (3.86-4.86)
[2021-03-18 19:59] LABS: Protime INR 0.96
[2021-03-18 20:11] LABS: ALT/SGPT 23 U/L (12-78); AST/SGOT 23 U/L (15-37); Albumin 3.9 g/dL (3.4-5.0); Alkaline Phosphatase 50 U/L (45-117); BUN Blood Urea Nitrogen 25 mg/dL (7-18); Bicarbonate 23 mmol/L (21-32); Bilirubin Direct < 0.1 mg/dL (0-0.2); Bilirubin Total 0.2 mg/dL (0.2-1.0); Glucose Level 51 mg/dL (74-106); Lipase 299 U/L (73-393); NT PRO-BNP 162 pg/mL (<125); Potassium 3.6 mmol/L (3.5-5.1); Protein, Total 7.8 g/dL (6.4-8.2); Sodium Level 140 mmol/L (136-145); Troponin (Emerg Dept Use Only) < 0.02 ng/mL (0.0-0.045)
--- NOTE | 2021-03-18 20:43 | ER ---
Nurse's Notes [facility] Name: Mariah Canales Age: 75 yrs Sex: Female : 1945 Arrival Date: 03/18/2021 Time: 18:20 Bed 6 Private MD: Diagnosis: Drug-induced hypoglycemia without coma;Vomiting;Weakness Presentation: 03/18 18:33 Chief complaint: EMS states: N/V x approx 3 days, hx of diabetes, BGL on scene 33, oral ph glucose given but pt vomited after, other VS stable, BGL upon arrival to ED 74. Coronavirus screen: At this time, the client does not indicate any symptoms associated with coronavirus-19. Ebola Screen: No symptoms or risks identified at this time. Initial Sepsis Screen: Does the patient meet any 2 criteria? No. Patient's initial sepsis screen is negative. Does the patient have a suspected source of infection? No. Patient's initial sepsis screen is negative. Risk Assessment: Do you want to hurt yourself or someone else? Patient reports no desire to harm self or others. 18:33 Method Of Arrival: EMS: [facility] ph 18:33 Acuity: AASHISH 3 ph 22:42 Onset of symptoms was March 18, 2021. bs2 Triage Assessment: 18:38 General: Appears in no apparent distress. comfortable, slender, Behavior is calm, ph cooperative, appropriate for age, Denies fever. Pain: Denies pain. Neuro: Level of Consciousness is awake, alert, obeys commands, Oriented to person, place, time, situation. Cardiovascular: Capillary refill < 3 seconds in bilateral fingers Patient's skin is warm and dry. Respiratory: Airway is patent Respiratory effort is even, unlabored, Respiratory pattern is regular, symmetrical. GI: Reports nausea, vomiting, Patient currently denies abdominal pain, diarrhea. : No signs and/or symptoms were reported regarding the genitourinary system. Denies burning with urination, urinary frequency. Derm: Skin is fragile, is thin, Skin is pink, warm \T\ dry. Musculoskeletal: Circulation, motion, and sensation intact. Range of motion: intact in all extremities. Historical: - Allergies: 18:35 No Known Allergies; ph - Home Meds: 18:35 quetiapine oral [Active]; Lisinopril Oral [Active]; Lexapro Oral [Active]; Glipizide ph Oral [Active]; Buspirone Oral [Active]; - PMHx: 18:35 Diabetes mellitus; Hypertensive disorder; Depression; ph - Social history:: Smoking status: Patient reports the use of cigarette tobacco products, smokes one-half pack cigarettes per day. - Family history:: not pertinent. Screenin:39 Abuse screen: Denies threats or abuse. Denies injuries from another. Nutritional ph screening: No deficits noted. Tuberculosis screening: No symptoms or risk factors identified. Fall Risk None identified. Assessment: 20:00 General: Appears in no apparent distress. Behavior is calm, cooperative, appropriate ea for age. Pain: Denies pain. Neuro: Level of Consciousness is awake, alert, obeys commands, Oriented to person, place, situation. Respiratory: Airway is patent Respiratory effort is even, unlabored, Respiratory pattern is regular, symmetrical. Derm: Skin is pink, warm \T\ dry. Vital Signs: 18:33 BP 129 / 74; Pulse 87; Resp 18; Temp 97.0; Pulse Ox 98% on R/A; Weight 45.36 kg; Height ph 5 ft. 0 in. (152.40 cm); Pain 0/10; 20:45 BP 138 / 71; Pulse 77; Resp 18; Pulse Ox 99% ; ea 18:33 Body Mass Index 19.53 (45.36 kg, 152.40 cm) ph ED Course: 18:20 Patient arrived in ED. ph 18:29 Todd Saunders MD is Attending Physician. bill 18:33 Laura Adrian, RN is Primary Nurse. ph 18:35 Triage completed. ph 18:37 Arm band placed on Patient placed in an exam room, on a stretcher, on pulse oximetry. ph 18:39 Patient has correct armband on for positive identification. Placed in gown. Bed in low ph position. Call light in reach. Side rails up X 1. Pulse ox on. NIBP on. Door closed. Noise minimized. Warm blanket given. 18:49 CT Abd/Pelvis - Without Contrast In Process Unspecified. EDMS 18:58 XRAY Chest (1 view) In Process Unspecified. EDMS 19:34 Initial lab(s) drawn, by me, sent to lab. Inserted saline lock: 22 gauge in right ph antecubital area, using aseptic technique. Blood collected. 20:41 Paolo Aguilar is Hospitalizing Provider. bill 20:58 Primary Nurse role handed off by Laura Adrian RN [email or web address] 21:25 Venkatesh Sandhu DO is Hospitalizing Provider. karen 22:16 No provider procedures requiring assistance completed. Patient admitted, IV remains in ea place. Administered Medications: 17:25 Drug: NS 0.9% 500 ml Route: IV; Rate: bolus; Site: right antecubital; ph 17:25 Drug: D5-1/2 NS 1000 ml Route: IV; Rate: 100 ml/hr; Site: right antecubital; ph 17:25 Drug: D50W 25 ml Route: IVP; Site: right antecubital; ph 17:25 Drug: Zofran (Ondansetron) 4 mg Route: IVP; Site: right antecubital; ph 17:27 Drug: Pepcid (famotidine) 20 mg Route: IVP; Site: right antecubital; ph Outcome: 20:43 Decision to Hospitalize by Provider. bill 22:16 Condition: stable ea 22:16 Instructed on the need for admit, Demonstrated understanding of instructions. 22:43 Admitted to Med/surg accompanied by tech, via stretcher, room 403, with chart, Report bs2 called to Mary 22:50 Admitted to Med/surg accompanied by tech, via stretcher, with chart. ea 22:50 Patient left the ED. ea Signatures: Dispatcher [employer] EDMS Todd Saunders MD MD cha Roszak, Josh, PA PA [id number] Laura Adrian RN RN Kath Goyal RN RN ea [place], MyKena mw2 Georgie Handy bs2
--- NOTE | 2021-03-18 20:43 | EDPHYS ---
Physician Documentation [facility] Name: Mariah Canales Age: 75 yrs Sex: Female : 1945 Arrival Date: 03/18/2021 Time: 18:20 Bed 6 Private MD: BEBO Physician Todd Saunders HPI: 03/18 20:32 This 75 yrs old Female presents to ER via EMS with complaints of nausea, bill vomiting and hypoglycemia x 3 days. 20:32 The patient presents with abdominal pain in the upper abdomen, in the lower abdomen. bill Onset: The symptoms/episode began/occurred 3 day(s) ago. The patient presents to the emergency department with nausea, vomiting, that is intermittent. Onset: The symptoms/episode began/occurred 3 day(s) ago. Possible causes: unknown. The symptoms are aggravated by nothing. The symptoms are alleviated by nothing. n/v and hypoglycemia, on oral meds. Associated signs and symptoms: Pertinent positives: nausea, vomiting. The symptoms do not radiate. Associated signs and symptoms: Pertinent positives: nausea and vomiting, nausea, vomiting. Severity of pain: At its worst the pain was mild in the emergency department the pain is unchanged. Severity of symptoms: At their worst the symptoms were moderate in the emergency department the symptoms have improved mildly. Historical: - Allergies: 18:35 No Known Allergies; ph - Home Meds: 18:35 quetiapine oral [Active]; Lisinopril Oral [Active]; Lexapro Oral [Active]; Glipizide ph Oral [Active]; Buspirone Oral [Active]; - PMHx: 18:35 Diabetes mellitus; Hypertensive disorder; Depression; ph - Social history:: Smoking status: Patient reports the use of cigarette tobacco products, smokes one-half pack cigarettes per day. - Family history:: not pertinent. ROS: 20:32 Constitutional: Negative for fever, chills, and weight loss, Eyes: Negative for injury, bill pain, redness, and discharge, ENT: Negative for injury, pain, and discharge, Neck: Negative for injury, pain, and swelling, Cardiovascular: Negative for chest pain, palpitations, and edema, Respiratory: Negative for shortness of breath, cough, wheezing, and pleuritic chest pain, Back: Negative for injury and pain, : Negative for injury, bleeding, discharge, and swelling, MS/Extremity: Negative for injury and deformity, Skin: Negative for injury, rash, and discoloration, Neuro: Negative for headache, weakness, numbness, tingling, and seizure, Psych: Negative for depression, anxiety, suicide ideation, homicidal ideation, and hallucinations, Allergy/Immunology: Negative for hives, rash, and allergies, Hematologic/Lymphatic: Negative for swollen nodes, abnormal bleeding, and unusual bruising. 20:32 Abdomen/GI: Positive for nausea and vomiting, constipation. Exam: 20:32 Constitutional: This is a well developed, well nourished patient who is awake, alert, bill and in no acute distress. Head/Face: Normocephalic, atraumatic. Eyes: Pupils equal round and reactive to light, extra-ocular motions intact. Lids and lashes normal. Conjunctiva and sclera are non-icteric and not injected. Cornea within normal limits. Periorbital areas with no swelling, redness, or edema. ENT: Nares patent. No nasal discharge, no septal abnormalities noted. Tympanic membranes are normal and external auditory canals are clear. Oropharynx with no redness, swelling, or masses, exudates, or evidence of obstruction, uvula midline. Mucous membranes moist. Neck: Trachea midline, no thyromegaly or masses palpated, and no cervical lymphadenopathy. Supple, full range of motion without nuchal rigidity, or vertebral point tenderness. No Meningismus. Chest/axilla: Normal chest wall appearance and motion. Nontender with no deformity. No lesions are appreciated. Cardiovascular: Regular rate and rhythm with a normal S1 and S2. No gallops, murmurs, or rubs. Normal PMI, no JVD. No pulse deficits. Respiratory: Lungs have equal breath sounds bilaterally, clear to auscultation and percussion. No rales, rhonchi or wheezes noted. No increased work of breathing, no retractions or nasal flaring. Abdomen/GI: Soft, non-tender, with normal bowel sounds. No distension or tympany. No guarding or rebound. No evidence of tenderness throughout. Back: No spinal tenderness. No costovertebral tenderness. Full range of motion. Skin: Warm, dry with normal turgor. Normal color with no rashes, no lesions, and no evidence of cellulitis. MS/ Extremity: Pulses equal, no cyanosis. Neurovascular intact. Full, normal range of motion. Neuro: Awake and alert, GCS 15, oriented to person, place, time, and situation. Cranial nerves II-XII grossly intact. Motor strength 5/5 in all extremities. Sensory grossly intact. Cerebellar exam normal. Normal gait. Psych: Awake, alert, with orientation to person, place and time. Behavior, mood, and affect are within normal limits. 20:55 ECG was reviewed by the Attending Physician. bill Vital Signs: 18:33 BP 129 / 74; Pulse 87; Resp 18; Temp 97.0; Pulse Ox 98% on R/A; Weight 45.36 kg; Height ph 5 ft. 0 in. (152.40 cm); Pain 0/10; 20:45 BP 138 / 71; Pulse 77; Resp 18; Pulse Ox 99% ; ea 18:33 Body Mass Index 19.53 (45.36 kg, 152.40 cm) ph MDM: 18:29 Patient medically screened. bill 20:38 Differential diagnosis: Nonspecific abd pain, gastritis, pancreatitis, viral bill gastroenteritis, gastroenteritis, diverticulitis, gastritis, gastroesophageal reflux disease, myocardia ischemia or infarction, non-specific abd pain, pancreatitis, Peptic Ulcer Disease, Pyelonephritis, Ureterolithiasis. Data reviewed: vital signs, nurses notes, lab test result(s), cardiac enzymes, CBC, electrolytes, hepatic panel, urinalysis, EKG, radiologic studies, CT scan, plain films. Data interpreted: shelter monitor: rate is 87 beats/min, rhythm is regular, Pulse oximetry: on room air is 98 %. Test interpretation: by ED physician or midlevel provider: ECG, plain radiologic studies. Counseling: I had a detailed discussion with the patient and/or guardian regarding: the historical points, exam findings, and any diagnostic results supporting the discharge/admit diagnosis, lab results, radiology results, the need for further work-up and treatment in the hospital. 03/18 18:31 Order name: Basic Metabolic Panel [facility] 03/18 18: Order name: CBC with Diff [facility] 03/18 18: Order name: LFT's; Complete Time: 20:28 [facility] 03/18 18:31 Order name: Magnesium; Complete Time: 20:28 [facility] 03/18 18: Order name: NT PRO-BNP; Complete Time: 20:28 [facility] 03/18 18:31 Order name: PT-INR; Complete Time: 20:28 [facility] 03/18 18:31 Order name: Troponin (emerg Dept Use Only); Complete Time: 20:28 bill 03/18 18:31 Order name: Lipase; Complete Time: 20:28 [facility] 03/18 18:31 Order name: Urine Culture [facility] 03/18 18:32 Order name: Basic Metabolic Panel; Complete Time: 20:28 EDMS 03/18 18:32 Order name: CBC with Automated Diff EDAZ 03/18 18:42 Order name: Glucose, Ancillary Testing; Complete Time: 20:28 EDMS 03/18 21:14 Order name: SARS-COV-2 RT PCR; Complete Time: 21:27 EDMS 03/18 18:31 Order name: XRAY Chest (1 view); Complete Time: 20:28 [facility] 03/18 18:31 Order name: EKG; Complete Time: 18:32 [facility] 03/18 18:31 Order name: Cardiac monitoring; Complete Time: 19:33 bill 03/18 18:31 Order name: EKG - Nurse/Tech; Complete Time: 20:56 bill 03/18 18:31 Order name: IV Saline Lock; Complete Time: 19:33 bill 03/18 18:31 Order name: Labs collected and sent; Complete Time: 19:33 [facility] 03/18 18:31 Order name: O2 Per Protocol; Complete Time: 18:40 [facility] 03/18 18:31 Order name: O2 Sat Monitoring; Complete Time: 18:40 [facility] 03/18 18:32 Order name: CT Abd/Pelvis - Without Contrast; Complete Time: 20:28 [facility] 03/18 21:44 Order name: Manual Differential EDMS EC:55 Rate is 75 beats/min. Rhythm is regular. QRS [place] is Normal. MS interval is normal. QRS bill interval is normal. QT interval is normal. No Q waves. T waves are Normal. No ST changes noted. Clinical impression: NSR w/ Non-specific ST/T Changes and No evidence of ischemia. Interpreted by me. Reviewed by me. Administered Medications: 17:25 Drug: NS 0.9% 500 ml Route: IV; Rate: bolus; Site: right antecubital; ph 17:25 Drug: D5-1/2 NS 1000 ml Route: IV; Rate: 100 ml/hr; Site: right antecubital; ph 17:25 Drug: D50W 25 ml Route: IVP; Site: right antecubital; ph 17:25 Drug: Zofran (Ondansetron) 4 mg Route: IVP; Site: right antecubital; ph 17:27 Drug: Pepcid (famotidine) 20 mg Route: IVP; Site: right antecubital; ph Disposition Summary: 03/18/21 20:43 Hospitalization Ordered Hospitalization Status: Observation bill Location: Telemetry/MedSurg (observation) bill Condition: Stable bill Problem: new bill Symptoms: have improved bill Bed/Room Type: Standard bill Provider: Venkatesh Sandhu(03/18/21 21:25) [id number] Room Assignment: [id number](03/18/21 21:31) bb Diagnosis - Drug-induced hypoglycemia without coma bill - Vomiting bill - Weakness bill Forms: - Medication Reconciliation Form bill - SBAR form bill Signatures: Dispatcher [employer] EDMS Todd Saunders MD MD cha Ballard, Brenda, RN RN bb Jose G Salter PA PA jr8 Laura Adrian RN RN ph Corrections: (The following items were deleted from the chart) 20:16 18:34 CORONAVIRUS+MR.LAB.BRZ ordered. EDAZ EDMS 21:25 20:43 Paolo Aguilar cha jr8 21:31 20:43 bill hope
[2021-03-18 21:49] LABS: Blood Morphology Comment NOT SEEN (NOT SEEN); Platelet Estimate ADEQ
[2021-03-18] MEDS ORDERED: ACETAMINOPHEN 500 MG TAB PO PRN (23:09)
[2021-03-18] MEDS ORDERED: ONDANSETRON 4 MG/2 ML VIAL IV PRN (23:09)
[2021-03-18 23:30] VITALS: BMI 20.4
--- NOTE | 2021-03-18 23:41 | P.HP ---
Certification for Inpatient Patient admitted to: Observation With expected LOS: <2 Midnights Patient will require the following post-hospital care: None Practitioner: I am a practitioner with admitting privileges, knowledge of patient current condition, hospital course, and medical plan of care. Services: Services provided to patient in accordance with Admission requirements found in Title 42 Section 412.3 of the Code of Federal Regulations Patient History Date of Service: 03/18/21 Primary Care Provider: Unknown Reason for admission: Hypoglycemia History of Present Illness: This is a 75-year-old female with a history of hypertension, depression, diabetes mellitus that presented to the emergency room after 3 days of nausea and vomiting. Stated that she started to feel more weak and fatigued and noticed that her blood sugars were much slower than normal. Patient evaluated in the emergency room and found that she had a blood glucose level. No other acute abnormalities on labs, CT or chest x-ray. Patient was treated in the emergency room with D50 and was put on D5 half NS and was also given Zofran that she was not able to tolerate fluids or food enterally. Patient evaluated in the emergency room by the medicine team. Patient overall doing better. Last glucose check was in the 80s and currently not vomiting. Patient will be admitted for observation at this time. Allergies No Known Allergies Allergy (Unverified 03/18/21 21:00) Home medications list reviewed: Yes - Past Medical/Surgical History Diabetic: Yes -: Depression -: Diabetes Type 2 -: Hypertension - Family History Family History: Reviewed- Non-Contributory - Social History Smoking Status: Current every day smoker Counseled patient to stop smoking for: less than 10 minutes Smoking therapy provided: Yes Patient receptive to therapy: Yes Alcohol use: No CD- Drugs: No Caffeine use: Yes Place of Residence: Home Review of Systems General: As per HPI Eyes: Unremarkable ENT: Unremarkable Respiratory: Unremarkable Cardiovascular: Unremarkable Gastrointestinal: Nausea, Vomiting, Abdominal Pain Genitourinary: Unremarkable Musculoskeletal: Unremarkable Integumentary: Unremarkable Neurological: Unremarkable Lymphatics: Unremarkable Physical Examination - Vital Signs Temperature: 97.0 F Blood Pressure: 138/71 Pulse: 77 Respirations: 18 Pulse Ox (%): 98 (RA) - Physical Exam General: Alert, In no apparent distress, Oriented x3, Cooperative HEENT: Atraumatic, Normocephalic, PERRLA, Mucous membr. moist/pink, EOMI Neck: 2+ carotid pulse no bruit, JVD not distended, No Thyromegaly Respiratory: Clear to auscultation bilaterally, Normal air movement Cardiovascular: No edema, Normal pulses, Regular rate/rhythm, Normal S1 S2, No gallops, No rubs, No murmurs Gastrointestinal: Normal bowel sounds, Soft and benign, Non-distended, No ascites, No tenderness, No masses, No rebound, No guarding Musculoskeletal: No clubbing, No swelling, No contractures, No erythema, No tenderness, No warmth Integumentary: No rashes, No breakdown, No significant lesion, No tenderness/swelling, No erythema, No warmth, No cyanosis Neurological: Normal speech, Normal strength at 5/5 x4 extr, Normal tone, Sensation intact, Cranial nerves 3-12 intact, Normal affect Lymphatics: No axilla or inguinal lymphadenopathy - Studies Laboratory Data (last 24 hrs) 03/18/21 19:25: PT 11.0, INR 0.96 03/18/21 19:25: WBC 9.70, Hgb 10.8 L, Hct 34.7 L, Plt Count 335 03/18/21 19:25: Sodium 140, Potassium 3.6, BUN 25 H, Creatinine 1.05, Glucose 51 L, Magnesium 2.0, Total Bilirubin 0.2, AST 23, ALT 23, Alkaline Phosphatase 50, Lipase 299 Assessment and Plan - Problems (Diagnosis) (1) Hypertension Current Visit: Yes Status: Chronic Plan: Will monitor patient's blood pressure throughout her observation. Patient's BP will be treated if systolic greater than 160. Qualifiers: Hypertension type: primary hypertension Qualified Code(s): I10 - Essential (primary) hypertension (2) Type 2 diabetes mellitus Current Visit: Yes Status: Chronic Plan: Patient will have q. 6 hr blood checks 4 glucose monitoring. Patient will stay on D5 half NS at 100 an hr. Put patient on a clear liquid diet now that she is no longer nauseated or vomiting and will advance as tolerated. If patient is able to hold down both fluids and food by the morning patient will be taken off the D5 half. 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 We will continue to monitor vomiting status. Patient will be slightly dehydrated via IV. Will advance diet as tolerated. - Plan The patient does well over the next 24 hr patient will be able to go home with return precautions. We will continue to monitor patient in glucose levels. Advance diet as tolerated. Patient is able to hold down diet will take her off and will monitor sugars for the next few hr. Patient should be able to go home tomorrow as long as she is able to maintain an adequate diet. Discharge Plan: Home Plan to discharge in: 24 Hours - Advance Directives Does patient have a Living Will: No Does patient have a Durable POA for Healthcare: No - Code Status/Comfort Care Code Status Assessed: No Critical Care: No Time Spent Managing Pts Care (In Minutes): 70
[2021-03-19] MEDS: D5 0.45 NS 1,000 ML IV SCH ×2 (00:11→09:09)
[2021-03-19] MEDS ORDERED: TEMAZEPAM 15 MG CAP PO ONE (00:44)
[2021-03-19 06:08] LABS: Absolute Lymphocytes (CBC) 1.9 K/uL (0.7-4.9); Basophils % 0.4 % (0-1.3); Hematocrit 28.5 % (36.0-45.0); Lymphocytes % 23.2 % (15.3-44.8); MPV 8.7 fL (7.6-11.3); RBC Red Blood Cell Count 3.56 M/uL (3.86-4.86)
--- NOTE | 2021-03-19 06:10 | P.DS ---
Admission Date: 03/18/21 Discharge Date: 03/19/21 Primary Care Provider: Sulema Gomez Disposition: ROUTINE DISCHARGE Discharge Condition: GOOD Reason for Admission: Hypoglycemia Consultations: none Procedures: CT scan: FINDINGS: The lower lung cuevas are mildly emphysematous but clear. The liver, spleen, pancreas, adrenal glands and kidneys are within normal limits for a limited non-contrast examination.Small bilateral hyperdense renal cysts. No bowel obstruction, free air, free fluid or abscess. Moderate retained stool is present in the rectosigmoid colon. The appendix is normal. Hardware is in place involving the lumbar spine with postsurgical changes. IMPRESSION: Moderate lumbosacral fecal retention. A limited non-contrast examination was performed as detailed. CXR: COMPARISON: Abdomen Pelvis Wo Contrast dated 03/18/2021 FINDINGS: Portable technique limits examination quality. Tiny diffuse calcified nodules throughout the lungs likely related to prior granulomatous infection. The heart is normal in size. No displaced fractures. Medical problem list: Nausea vomiting likely gastroenteritis Hypoglycemia with underlying diabetes mellitus type 2 Hypertension Depression with anxiety Hyperlipidemia CAD COPD GERD Brief History of Present Illness: 75-year-old female with a history of hypertension, depression, diabetes mellitus that presented to the emergency room after 3 days of nausea and vomiting. Stated that she started to feel more weak and fatigued and noticed that her blood sugars were much slower than normal. Continue to take her medication during this time. Patient evaluated in the emergency room and found that she had a blood glucose level. Patient was admitted for further evaluation and treatment. Hospital Course: Patient reported nausea and vomiting likely from gastroenteritis. Patient noted to have hypoglycemia. Patient with underlying diabetes. She takes glipizide medication. Due to her hypoglycemia the patient was monitored overnight. Patient able to tolerate her diet. No further significant nausea or vomiting noted. CT scan showed some constipation. Patient has done well. Blood sugar stable. Hemoglobin A1c 6.3. Patient will be discharged home. Recommend to monitor blood sugar at least twice daily. Recommend to maintain blood sugar less than 140 fasting and less than 200 after meals. At discharge patient may continue with glipizide 5 mg daily. Recommend to monitor blood sugars at least twice daily. Recommend to hold medication if blood sugar is less than 100. Recommend to recheck hemoglobin A1c every 3 months to monitor her progress. Further adjustment in medication may be required. This can be done with the help of her PCP. Recommend follow-up with PCP in 1 week to monitor her progress. For her constipation patient may take stool softener as needed. Encourage oral intake. Patient with hypertension. Patient may continue with her current medicationlisinopril 10 mg daily. Recommend to maintain blood pressure less than 130/80. Further adjustment can be done by her PCP. Patient with hyperlipidemia and CAD. At discharge will continue with Plavix 75 mg daily and Lipitor 40 mg daily. Patient with depression with anxiety. At discharge she will continue with her medications including BuSpar 30 mg 1 pill twice daily, Lexapro 30 mg daily, Seroquel 100 mg at bedtime and Remeron 15 mg at bedtime. Recommend follow-up with psychiatry to further monitor and adjust medication. Patient with COPD. At discharge patient will continue with her medications including Advair 1 puff twice daily and albuterol 2 puffs 3 times a day as needed for shortness of breath. Patient with GERD. At discharge she will continue with Protonix 40 mg daily. Vital Signs/Physical Exam: Temp Pulse Resp BP Pulse Ox 97.3 F 91 H 16 123/77 100 03/19/21 04:00 03/19/21 04:00 03/19/21 04:00 03/19/21 04:00 03/19/21 04:00 General: Alert, In no apparent distress, Oriented x3, Cooperative HEENT: Atraumatic, Normocephalic Neck: Supple Respiratory: Clear to auscultation bilaterally, Normal air movement Cardiovascular: Normal pulses, Regular rate/rhythm Gastrointestinal: Normal bowel sounds, No tenderness, No masses, No rebound, No guarding Musculoskeletal: No erythema, No tenderness, No warmth Integumentary: No tenderness/swelling Neurological: Normal speech, Normal strength at 5/5 x4 extr, Normal tone, Normal affect Laboratory Data at Discharge: WBC 9.70 K/uL (4.3-10.9) 03/18/21 19:25 Hgb 10.8 g/dL (12.0-15.0) L 03/18/21 19:25 Hct 34.7 % (36.0-45.0) L 03/18/21 19:25 Plt Count 335 K/uL (152-406) 03/18/21 19:25 PT 11.0 SECONDS (9.5-12.5) 03/18/21 19:25 INR 0.96 03/18/21 19:25 Sodium 140 mmol/L (136-145) 03/18/21 19:25 Potassium 3.6 mmol/L (3.5-5.1) 03/18/21 19:25 BUN 25 mg/dL (7-18) H 03/18/21 19:25 Creatinine 1.05 mg/dL (0.55-1.3) 03/18/21 19:25 Glucose 51 mg/dL (74-106) L 03/18/21 19:25 Magnesium 2.0 mg/dL (1.8-2.4) 03/18/21 19:25 Total Bilirubin 0.2 mg/dL (0.2-1.0) 03/18/21 19:25 AST 23 U/L (15-37) 03/18/21 19:25 ALT 23 U/L (12-78) 03/18/21 19:25 Alkaline Phosphatase 50 U/L (45-117) 03/18/21 19:25 Lipase 299 U/L (73-393) 03/18/21 19:25 Home Medications: Albuterol Inhaler [Ventolin Inhaler*] 1 - 2 puff IH Q6HP PRN 03/19/21 Atorvastatin Calcium 40 mg PO DAILY 03/19/21 Buspirone HCl [Buspar] 30 mg PO BID 03/19/21 Clopidogrel Bisulfate [Plavix*] 1 tab PO DAILY 03/19/21 Escitalopram Oxalate [Lexapro] 1.5 tab PO DAILY 03/19/21 Fluticasone Propion/Salmeterol [Wixela 250-50 Inhub] 1 puff IH BID 03/19/21 Lisinopril [Zestril] 10 mg PO DAILY 03/19/21 Mirtazapine [Remeron*] 15 mg PO BEDTIME 03/19/21 Pantoprazole [Protonix Tab*] 40 mg PO DAILY 03/19/21 Promethazine Tab [Phenergan*] 25 mg PO Q6HP PRN 03/19/21 Quetiapine [Seroquel*] 1 tab PO BEDTIME 03/19/21 glipiZIDE [Glipizide] 1 tab PO DAILY 03/19/21 Physician Discharge Instructions: Patient reported nausea and vomiting likely from gastroenteritis. Patient noted to have hypoglycemia. Patient with underlying diabetes. She takes glipizide medication. Due to her hypoglycemia the patient was monitored overnight. Patient able to tolerate her diet. No further significant nausea or vomiting noted. CT scan showed some constipation. Patient has done well. Blood sugar stable. Hemoglobin A1c 6.3. Patient will be discharged home. Recommend to monitor blood sugar at least twice daily. Recommend to maintain blood sugar less than 140 fasting and less than 200 after meals. At discharge patient may continue with glipizide 5 mg daily. Recommend to monitor blood sugars at least twice daily. Recommend to hold medication if blood sugar is less than 100. Recommend to recheck hemoglobin A1c every 3 months to monitor her progress. Further adjustment in medication may be required. This can be done with the help of her PCP. Recommend follow-up with PCP in 1 week to monitor her progress. For her constipation patient may take stool softener as needed. Encourage oral intake. Patient with hypertension. Patient may continue with her current medicationlisinopril 10 mg daily. Recommend to maintain blood pressure less than 130/80. Further adjustment can be done by her PCP. Patient with hyperlipidemia and CAD. At discharge will continue with Plavix 75 mg daily and Lipitor 40 mg daily. Patient with depression with anxiety. At discharge she will continue with her medications including BuSpar 30 mg 1 pill twice daily, Lexapro 30 mg daily, Seroquel 100 mg at bedtime and Remeron 15 mg at bedtime. Recommend follow-up with psychiatry to further monitor and adjust medication. Patient with COPD. At discharge patient will continue with her medications including Advair 1 puff twice daily and albuterol 2 puffs 3 times a day as needed for shortness of breath. Patient with GERD. At discharge she will continue with Protonix 40 mg daily. Diet: ADA Activity: Ad marilyn Followup: NONE,NONE [Primary Care Provider] - Time spent managing pt's care (in minutes): 55
[2021-03-19 07:30] VITALS: O2SAT 100
[2021-03-19 08:46] VITALS: BP 171/71; TEMP 97.5
[2021-03-19] MEDS ORDERED: NICOTINE 14 MG/PAT TD SCH (09:00)
--- NOTE | 2021-03-19 16:10 | EKG ---
Test Date: 2021-03-18 Test Time: 20:54:25 Air Tool Operator: ALIS MEASUREMENT RESULTS: Intervals: Rate: 75 RI: 154 QRSD: 78 QT: 344 QTc: 384 [place]: P: 61 RI: 154 QRS: 47 T: 71 INTERPRETIVE STATEMENTS: Normal sinus rhythm Anteroseptal infarct, age undetermined Abnormal ECG No previous ECG available for comparison Electronically Signed On 03-19-21 16:08:30 CDT by Ministerio Sheehan
[2021-03-19] MEDS ORDERED: QUETIAPINE 100MG TAB PO SCH (21:00)
[2021-03-19] MEDS ORDERED: MIRTAZAPINE 15 MG TAB PO SCH (21:00)
[2021-03-19] MEDS ORDERED: HOME MED 1 EA UNK (Fluticasone Propion/Salmeterol [Wixela 250-50 Inhub] Blst.W.Dev) IH SCH (21:00)
[2021-03-19] MEDS ORDERED: BUSPIRONE HCL 15 MG TABLET PO SCH (21:00)
[2021-03-20] MEDS ORDERED: glipiZIDE 5 MG TAB PO SCH (08:00)
[2021-03-20] MEDS ORDERED: lisinopriL 10 MG TAB PO SCH (09:00)
[2021-03-20] MEDS ORDERED: PANTOPRAZOLE 40MG TABLET PO SCH (09:00)
[2021-03-20] MEDS ORDERED: CLOPIDOGREL 75 MG TABLET PO SCH (09:00)
[2021-03-20] MEDS ORDERED: ATORVASTATIN 40 MG TAB PO SCH (09:00)
[2021-03-20] MEDS ORDERED: ESCITALOPRAM 20 MG TAB PO SCH (09:00)
== END 2021-03-19 12:42 | disposition home or self-care (01) ==
LOC: ER 17:55 → 4TH 21:47
PROVIDERS: ADMIT Family Medicine; ATTEND Family Medicine
DX: E11.649 Type 2 diabetes mellitus with hypoglycemia without coma (principal); R11.2 Nausea with vomiting, unspecified; Z20.822 Contact with and (suspected) exposure to COVID-19; I10 Essential (primary) hypertension; F41.8 Other specified anxiety disorders; E78.5 Hyperlipidemia, unspecified; I25.10 Atherosclerotic heart disease of native coronary artery without angina pectoris; J44.9 Chronic obstructive pulmonary disease, unspecified; K21.9 Gastro-esophageal reflux disease without esophagitis; Z79.84 Long term (current) use of oral hypoglycemic drugs; K59.00 Constipation, unspecified; F17.210 Nicotine dependence, cigarettes, uncomplicated
CPT/HCPCS: 93005; 87088; 85025 ×2; 87086; 80048 ×2; 36415; 83735; 85610; 82947 ×4; 80076; 87077; 87186; 83036; 84484; 83690; 83880; 74176; 71045; 96375; 96374; 99285; U0003; J7799 ×2; J7040; J2405; G0378 ×2

== ENCOUNTER 2021-04-07 08:48 | Emergency (ER) | payer MEDICARE, OTHER ==
--- OUTSIDE RECORDS SUMMARY | 2021-04-07 08:58 | XMS REPORT | Continuity of Care Document ---
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 Posiflush Sterile Calcium No 1,000 mL, Memor ia Chloride -20 2,000 l 0.0014 19:59: ml/hr, Jasbir MEQ/ML / 00 Infuse Potassium Over: 0.5 Chloride hr, Route: 0.004 IV, 1,000, MEQ/ML / Drug form: Sodium INJ, ONCE, Chloride Priority: 0.103 STAT, MEQ/ML / Dosing Sodium Weight Lactate 45.455 kg, 0.028 Start MEQ/ML date: Injectable 10/03/19 Solution 13:59:00 PROPERTY OFFICER, Stop date: 10/03/19 13:59:00 PROPERTY OFFICER, 0 Ondansetron No Notes: Isaak lauren -20 (Same as: l 19:59: Zofran) MEDICATION WASTE Product Size: 4 mg Product Wasted: ___ mg baclofen 5 2017-09 Yes 5 mg = 1 Mem oria mg oral 2-26 tab, PO, l tablet 05:08: TID, PRN [place] 00 Muscle Spasms, # 15 tab, 0 [...] kg, Priority: STAT, Start date: 09/07/18 21:14:00 PROPERTY OFFICER, Stop date: 09/07/18 21:14:00 PROPERTY OFFICER Tramadol 2017-09 No 50 kg, Memori a 2-26 Priority: l 03:00: STAT, [place] Start date: 09/07/18 21:00:00 PROPERTY OFFICER, Stop date: 09/07/18 21:00:00 PROPERTY OFFICER glimepiride Yes 2mg QD Take 2 mg [...] MG 13:45: daily. st tablet 26 traZODone 2017 Yes 150mg QD Take 150 [place] ston [...] (four) st 26 times a day. aspirin 2017- Yes 81mg QD Take 81 mg [place] (ECOTRIN) 9-25 by mouth Method i 81 MG 13:45: daily. st enteric 26 coated tablet clopidogrel 20170 Yes TK 1 T PO [place] (PLAVIX) 75 9-09 QD [facility] mg tablet 00:00: st 00 lisinopril 0 Yes TK 1 T PO [place] (PRINIVIL,Z 8- QD [facility] ESTRIL) 2.5 00:00: st mg tablet 00 SEPUME0 Yes TK 1 T PO [place] on 50-500 mg 8- BID WC [facility] per tablet 00:00: st 00 busPIRone Yes TK 1 T PO [place] (BUSPAR) 30 8-24 BID [facility] MG tablet 00:00: st 00 Sodium No 500 mL, Memoria Chloride 3-29 500 ml/hr, l 0.154 09:23: Infuse [place] MEQ/ML 00 Over: 1 Injectable hr, Route: Solution IV, 500, Drug form: INJ, ONCE, Priority: STAT, Dosing Weight 59.091 kg, Start date: 12/10/16 4:23:00 CDT, Duration: 1 doses or times, Stop date: 12/10/16 4:23:00 CDT Saline No Notes: [facility]oria Flush 0.9% 12-10 Same as: l 07:02: BD [place] Posiflush Sterile Ondansetron Yes Special Mem oria 4 MG 06-09 Instructio l Disintegrat 10:40: ns: Chris n ing Tablet 00 Dissolve [Zofran] tab under tongue Ondansetron No Notes: Isaak lauren 06-09 (Same as: l 10:13: Zofran) Jasbir MEDICATION WASTE Product Size: 4 mg Product Wasted: ___ mg Ativan No Notes: Memoria 9-26 (Same as: l 10:13: Ativan) Jasbir 00 Sodium No 1,000 mL, Memori a Chloride 7-24 1,000 l 0.154 04:34: ml/hr, [place] MEQ/ML 00 Infuse Injectable Over: 1 Solution hr, Route: IV, ONCE, Priority: STAT, Dosing Weight 59.091 kg, Start date: 04/05/15 23:34:00, Duration: 1 doses or times, Stop date: 04/05/15 23:34:00 Saline No Notes: [facility] Flush 0.9% 24 Same as: l 02:36: BD Jasbir 00 Posiflush Sterile Levaquin No Notes: Do Isaak lauren -03 not give l 17:00: w/antacids Jasbir , [...] 04-15 tab, PO, l oral tablet 16:40: [id number], # [place] 00 7 tab, 0 Refill(s) glimepiride Yes [...] tab, PO, l tablet 16:40: Daily, # Jasbir 00 30 tab, 0 Refill(s) Clonidine No [...] Powder [Spiriva] Prednisone No Notes: Memor ia 8- Take with l 18:05: food. [place] 00 Levaquin No Notes: Memoria 8- (Same [...] No Notes: Memor ia 1 MG Oral 04-13 With food l Tablet 22:00: or milk [place] [Xanax] (Same as: Xanax) Buspirone No Notes: Memori a 7-31 (Same As: l 18:00: BuSpar) Lisinopril No Notes: Memor ia 7-31 (Same as: l 17:30: Prinivil, Zestril) Metformin No Notes: Memori a 7-31 (Same as: l 17:00: Glucophage ) Take with meal Januvia No Notes: Memoria 7-31 (Same as: l 17:00: Januvia) Sucralfate No Notes: January emoria 7-31 interfere l 17:00: w/enteral Jasbir 00 feeds - Take 1 hr before or 2 hr after antacids, dairy pdt, meals & minerals - On empty stomach. (Same As: Carafate) Hydroxyzine No Notes: Isaak lauren Hydrochlori - (Same as: l de 25 MG 16:37: Atarax) Chris n Oral Tablet 00 Avoid alcohol. Nicoderm No Notes: Memoria C-Q 7-31 (Same as: l 14:00: Habitrol) "Remove old patch before applicatio n of new patch" Lexapro No Notes: Memoria 7-31 (Same as: l 14:00: Lexapro) pneumococca No Notes: Isaak lauren l capsular 7-31 (Same as: l polysacchar 14:00: Pneumovax H ermann ferny type 1 00 23) vaccine / Refrigerat pneumococca e l capsular polysacchar ferny type 10A vaccine / pneumococca l capsular polysacchar ferny type 11A vaccine / pneumococca l capsular polysacchar ferny type 12F vaccine / pneumococca l capsular polysacchar glimepiride No Notes: Isaak lauren 7-31 (Same as: l 14:00: Amaryl) Aspirin / No Notes: Do Mem oria Calcium - not crush l Carbonate 14:00: or chew. Herm (Same As: Ecotrin) Prednisone No Notes: Memor ia 7-31 Take with l 14:00: food. Protonix No Notes: Memoria 7-31 Tablet l 12:30: should not be chewed or crushed. (Same as: Protonix) insulin No Notes: Memoria detemir -31 Same as l 02:00: Levemir "single patient use only" Albuterol No Notes: Memori a 0.833 MG/ML 04-13 (Same as: l / 01:00: Duoneb) Ipratropium 00 [place] 0.167 MG/ML Inhalant Solution [DuoNeb] Brovana No Notes: SEE Isaak lauren 7-30 RT l 23:02: DOCUMENTAT [place] 00 ION Same as Brovana Nicoderm No Notes: Memoria C-Q 7-30 (Same as: l 23:00: Habitrol) "Remove old patch before applicatio n of new patch" Methylpredn No Notes: Isaak lauren isolone 7-30 (Same l 22:00: as:Solu-ME DROL, A-Methapre d) Alprazolam No Notes: Memor ia 1 MG Oral 7-30 With food l Tablet 22:00: or milk [place] [Xanax] 00 (Same as: Xanax) Alprazolam No Notes: Memor ia 7-30 With food l 22:00: or milk [place] 00 (Same as: Xanax) Advair No Notes: Memoria Diskus 250 7-30 (Same as: l mcg-50 mcg 22:00: Advair) Herm jose a inhalation 00 powder Budesonide No Notes: Memor ia 7-30 (Same As: l 21:11: Pulmicort) [place] 00 Ativan No Notes: Memoria 7-30 (Same as: l 21:08: Ativan) Levaquin No Notes: Memoria 7-30 (Same l 21:00: as:Levaqui [place] 00 n) Albuterol No Notes: Memori a 0.833 MG/ML 7-30 (Same as: l / 20:00: Duoneb) Ipratropium 00 [place] 0.167 MG/ML Inhalant Solution [DuoNeb] Hydroxyzine Yes Special [facility] Hydrochlori 7-30 Instructio l de 25 MG 19:52: ns: PRN Chris n Oral Tablet 00 sucralfate Yes 1 gm = 1 Mem [...] 7-30 BID l de 1000 MG 19:52: [place] / sitagliptin 50 MG Oral Tablet [Janumet [...] 7-30 tab, PO, l tablet 19:52: TID [place] Levaquin No Notes: Memoria 7-30 (Same l [...] Notes: Isaak lauren en 325 MG / 30 (Same as: l Hydrocodone 18:50: [place] Estelle nn Bitartrate 00 325/5) Do 5 MG Oral not exceed Tablet 4gm/day of acetaminop hen. Acetaminoph No Notes: Do M emoria en -30 not exceed l 18:50: 4 gm/day. Jasbir 00 (Same as: Tylenol) Docusate No Notes: Memoria 7-30 (Same as: l 18:50: Colace) [place] (Do Not Crush) Ondansetron No Notes: Isaak lauren 7-30 (Same as: l 18:50: Zofran) Albuterol No Notes: Memori a 0.833 MG/ML 04-12 (Same as: l / 17:43: Duoneb) Ipratropium 00 [place] 0.167 MG/ML Inhalant Solution [DuoNeb] Ondansetron No Notes: Isaak lauren 7-30 (Same as: l 16:06: Zofran) pramipexole Yes .125mg [id number] Take 0.[address] [facility] [address] (MIRAPEX) 7 [id number] mg by Fariba es - 0.125 MG 17:05: 3D mouth 3 Medica l tablet 25 (three) Center times daily. Pt was prescribed this medication and then stopped taking it suddenly 2 months ago. (Per family) Bactrim DS 2011-09 Yes Loann The 1 tab, PO, Memoria oral tablet 0-09 Jsesica BID, 14 l 19:53: tab, [place] 30 Substituti on Allowed, Maintenanc e Sodium [...] 0-09 Jessica Route: l 17:41: IVP, Drug [place] Form: INJ, Dosing Weight 67.727, kg, PRN, PRN Line Flush, Start date: 06/22/12 12:41:00, Duration: 24 hr, Stop date: 06/23/12 12:40:00 Prinivil No Spencer H 5 mg, 1 M emoria 06-12 [place] tab, l 14:00: Route: PO, Jasbir Drug form: TAB, Daily, Start date: 06/12/12 9:00:00, Duration: 30 day, Stop date: 07/11/12 9:00:00 Protonix No Tatianna 40 mg, 1 Me moria 06-11 Iliskovic- tab, l 21:30: Deann Route: PO, Estelle nn Drug form: ECTAB, Before Dinner, Start date: 06/11/12 16:30:00, Duration: 30 day, Stop date: 07/10/12 16:30:00 metoprolol No Spencer H 25 mg, 1 Memoria 06-11 Trina tab, l 19:00: Route: PO, Jasbir Drug form: ERTAB, Daily, Start date: 06/11/12 14:00:00, Duration: 30 day, Stop date: 07/11/12 9:00:00 Prinivil No Spencer H 2.5 mg, M emoria 06-11 [place] 0.5 tab, l 19:00: Route: PO, Jasbir 00 Drug form: TAB, ONCE, Start date: 06/11/12 14:00:00, Stop date: 06/11/12 14:00:00 Restoril No Spencer H 15 mg, 1 Memoria 06-11 [place] cap, l 05:05: Route: PO, Jasbir Drug form: CAP, Bedtime, PRN Sleep, Start date: 06/11/12 0:05:00, Duration: 30 day, Stop date: 07/11/12 0:04:00 Protonix No Tatianna 40 mg, Isaak lauren 06-10 Karliovic- Route: l 20:00: Deann SCHNEIDER, Drug Chris n form: INJ, ONCE, Start date: 06/10/12 15:00:00, Stop date: 06/10/12 15:00:00 folic acid No Gnananandh 1 mg, 1 Memoria 1 mg oral 06-10 Mary tab, l tablet 14:00: Route: GT, Estelle nn 00 Drug form: TAB, Daily, Start date: 06/10/12 9:00:00, Duration: 30 day, Stop date: 07/09/12 9:00:00 Vitamin B1 2011-0 No Gnananandh 100 mg, 1 Memoria 06-10 Mary tab, l 14:00: Route: NG, [place] Drug form: TAB, Daily, Start date: 06/10/12 9:00:00, Duration: 30 day, Stop date: 07/09/12 9:00:00 Prinivil 2011-0 No Spencer H 2.5 mg, M emoria 06-10 Trina 0.5 tab, l 14:00: Route: PO, Jasbir Drug form: TAB, Daily, Start date: 06/10/12 9:00:00, Duration: 30 day, Stop date: 07/09/12 9:00:00 Paxil 2011-0 No Spencer H 45 mg, Memor ia 06-09 Trina 2.25 tab, l 23:00: Route: PO, Jasbir Drug form: TAB, Daily, Start date: 06/09/12 18:00:00, Duration: 30 day, Stop date: 07/09/12 9:00:00 Glucophage 2011-0 No Spencer H 500 mg, 1 Memoria XR 06-09 [place] tab, l 22:00: Route: PO, [place] 00 Drug form: ERTAB, BID-Before Meals, Start date: 06/09/12 17:00:00, Duration: 30 day, Stop date: 07/09/12 16:30:00 Pravachol 2011-0 No Spencer H 25 mg, 2.5 Memoria 06-09 Trina tab, l 22:00: Route: PO, [place] 00 Drug form: TAB, QPM, Start date: 06/09/12 17:00:00, Duration: 30 day, Stop date: 07/08/12 17:00:00 cefazolin + 2011-0 No Spencer H 1 gm, Memoria Sodium 06-09 [place] Route: l Chloride 22:00: IVPB, Jasbir 0.9% IV 100 00 [id number], mL Start date: 06/09/12 17:00:00, Duration: 24 hr, Stop date: 06/10/12 9:00:00 chlordiazep No Spencer H 25 mg, 1 Memoria oxide 25 mg 06-09 Trina cap, l oral 22:00: Route: PO, [place] capsule 00 Drug form: CAP, TID, Start date: 06/09/12 17:00:00, Duration: 30 day, Stop date: 07/09/12 13:00:00 Glucotrol No Spencer H 20 mg, 2 Memoria 06-09 Trina tab, l 21:30: Route: PO, Jasbir 00 Drug form: TAB, BID-Before Meals, Start date: 06/09/12 16:30:00, Duration: 30 day, Stop date: 07/09/12 7:30:00 acetaminoph No Spencer H 2 tab, Memoria en-hydrocod 06-09 Trina Route: PO, l one 325 17:09: Drug Form: Herm jos ea mg-5 mg 00 TAB, Q4H, oral tablet PRN Pain, Start date: 06/09/12 12:09:00, Duration: 30 day, Stop date: 07/09/12 12:08:00 1/2NS + KCL No Spencer H 1,000 mL, Memoria 20mEq/L 06-09 [place] Rate: 60 l 1000ml 17:09: ml/hr, Jasbir [...] H 1,000 mL, Memoria Ringers IV 06-09 [place] Rate: 100 l 1,000 mL 12:32: ml/hr, [place] 00 Infuse over: 10 hr, Route: IV, kg, Total Volume: 1,000, Start date: 06/09/12 7:32:00, Duration: 1 doses or times, Stop date: 06/09/12 17:31:00 Lactated 2011-0 No Spencer H 1,000 mL, Memoria Ringers 06-07 [place]ina Rate: 100 l Injection 11:00: ml/hr, Chris n IV 1,000 mL 00 Infuse over: 10 hr, Route: IV, kg, Total Volume: 1,000, Start date: 06/07/12 6:00:00, Duration: 1 minutes, Stop date: 06/07/12 6:00:00 lidocaine 2011- No Spencer H 0.1 mL, Memoria 06-07 [place] Route: l 11:00: INJ, Drug [place] 00 form: INJ, ONCALL, Start date: 06/07/12 6:00:00, Duration: 1 minutes, Stop date: 06/07/12 6:00:00 cefazolin + 2011-0 No Spencer H 1 gm, Memoria Sodium 06-07 Trina Route: l Chloride 11:00: IVPB, [place] 0.9% IV 100 00 ONCALL, mL Start date: 06/07/12 6:00:00, Duration: 1 doses or times Vital Signs Vital Name Observation Time Observation Value Comments Source Temperature Oral (F) 2019-12-06 18:24:00 98.4 F [facility] [place] Heart Rate 2019-12-06 18:24:00 [facility] [place] Respitory Rate 2019-12-06 18:24:00 Memori al Jasbir Systolic (mm Hg) 2019-12-06 18:24:00 Isaak rial [place] Diastolic (mm Hg) 2019-12-06 18:24:00 Mem orial [place] Temperature Oral (F) 2019-12-06 13:38:00 98.2 F [facility] [place] Heart Rate 2019-12-06 13:38:00 [facility] Jasbir Respitory Rate 2019-12-06 13:38:00 Memori al [place] Systolic (mm Hg) 2019-12-06 13:38:00 Isaak rial Jasbir Diastolic (mm Hg) 2019-12-06 13:38:00 Mem orial [place] Temperature Oral (F) 2019-12-06 09:53:00 98.5 F [facility] J[facility]b[place] Systolic (mm Hg) 2019-12-06 09:53:00 Isaak rial Jasbir Diastolic (mm Hg) 2019-12-06 09:53:00 Mem orial Jasbir Respitory Rate 2019-12-06 09:53:00 [facility] al [place] Heart Rate 2019-12-06 09:53:00 [facility] [place] Height 2019-12-05 20:15:00 152.4 cm [facility] Jasbir Weight 2019-12-05 20:15:00 [facility] [place] BMI Calculated 2019-12-05 20:15:00 [facility] [place] Height 2019-12-05 15:20:00 172.72 cm [facility] [place] BMI Calculated 2019-12-05 15:20:00 [facility] [place] Weight 2019-12-05 15:20:00 [facility] [place] Respitory Rate 2019-11-19 04:24:00 Memori al Jasb[place] Systolic (mm Hg) 2019-11-19 04:24:00 Isaak rial Jasbir Diastolic (mm Hg) 2019-11-19 04:24:00 Mem orial Jasb[place] Respitory Rate 2019-11-19 03:15:00 Memori al Jasbir Systolic (mm Hg) 2019-11-19 03:15:00 Isaak rial J[place] Diastolic (mm Hg) 2019-11-19 03:15:00 Mem orial J[place] Respitory Rate 2019-11-19 02:18:00 Memori al Jasbir Systolic (mm Hg) 2019-11-19 02:18:00 Isaak rial Jasb[place] Diastolic (mm Hg) 2019-11-19 02:18:00 [facility] [place] BMI Calculated 2019-11-19 00:25:00 Memori al J[place] Heart Rate 2019-11-18 23:55:00 [facility] [place] Temperature Oral (F) 2019-11-18 23:55:00 97.4 F [facility] Height 2019-11-18 23:55:00 152.4 cm [facility] BMI Calculated 2019-11-18 23:55:00 Memori al Jasbir Weight 2019-11-18 23:55:00 [facility] [place] Temperature Oral (F) 2019-10-25 22:43:00 98.4 F [facility] [place] Heart Rate 2019-10-25 22:43:00 [facility] Respitory Rate 2019-10-25 22:43:00 [facility] al [place] Systolic (mm Hg) 2019-10-25 22:43:00 Isaak rial [place] Diastolic (mm Hg) 2019-10-25 22:43:00 [facility] [place] Temperature Oral (F) 2019-10-25 14:12:00 97.9 F [facility] Heart Rate 2019-10-25 14:12:00 [facility] [place] Respitory Rate 2019-10-25 14:12:00 Memori al Jasbir Systolic (mm Hg) 2019-10-25 14:12:00 Isaak rial Jasbir Diastolic (mm Hg) 2019-10-25 14:12:00 [facility] [place] Temperature Oral (F) 2019-10-25 09:56:00 98.2 F [facility] Heart Rate 2019-10-25 09:56:00 [facility] [place] Respitory Rate 2019-10-25 09:56:00 Memori al Jasbir Systolic (mm Hg) 2019-10-25 09:56:00 Isaak rial Jasbir Diastolic (mm Hg) 2019-10-25 09:56:00 [facility] [place] Height 2019-10-21 06:11:00 152.4 cm [facility] Weight 2019-10-21 06:11:00 [facility] [place] BMI Calculated 2019-10-21 06:11:00 Memori al J[place] Height 2019-10-20 18:05:00 152.4 cm [facility] [place] BMI Calculated 2019-10-20 18:05:00 [facility] [place] Weight 2019-10-20 18:05:00 [facility] [place] Temperature Oral (F) 2019-10-05 17:27:00 98.1 F [facility] Heart Rate 2019-10-05 17:27:00 [facility] [place] Respitory Rate 2019-10-05 17:27:00 Memori al Jasbir Systolic (mm Hg) 2019-10-05 17:27:00 Isaak rial Jasbir Diastolic (mm Hg) 2019-10-05 17:27:00 [facility] [place] Temperature Oral (F) 2019-10-05 13:12:00 97.9 F [facility] [place] Heart Rate 2019-10-05 13:12:00 [facility] Respitory Rate 2019-10-05 13:12:00 [facility] [place] Systolic (mm Hg) 2019-10-05 13:12:00 Isaak rial Jasbir Diastolic (mm Hg) 2019-10-05 13:12:00 [facility] [place] Temperature Oral (F) 2019-10-05 10:19:00 97.5 F [facility] [place] Heart Rate 2019-10-05 10:19:00 [facility] [place] Respitory Rate 2019-10-05 10:19:00 Memori al Jasbir Systolic (mm Hg) 2019-10-05 10:19:00 Isaak rial Jasbir Diastolic (mm Hg) 2019-10-05 10:19:00 [facility] [place] Height 2019-10-04 04:10:00 152.4 cm [facility] Weight 2019-10-04 04:10:00 [facility] BMI Calculated 2019-10-04 04:10:00 [facility] [place] Height 2019-10-03 19:36:00 152.4 cm [facility] [place] BMI Calculated 2019-10-03 19:36:00 Memori al Jasbir Weight 2019-10-03 19:36:00 [facility] [place] Respitory Rate 2018-09-08 05:21:00 [facility] [place] Temperature Oral (F) 2018-09-08 05:21:00 98.0 F [facility] [place] Systolic (mm Hg) 2018-09-08 05:21:00 Isaak rial [place] Diastolic (mm Hg) 2018-09-08 05:21:00 Mem o[facility] J[place]b[facility] Heart Rate 2018-09-08 05:21:00 [facility] [place] BMI Calculated 2018-09-08 01:37:00 [facility] [place] Weight 2018-09-08 01:37:00 [facility] [place] Height 2018-09-08 01:37:00 152.4 cm [facility] Heart Rate 2018-09-08 01:37:00 [facility] [place] Systolic (mm Hg) 2018-09-08 01:37:00 Isaak rial [place] Diastolic (mm Hg) 2018-09-08 01:37:00 [facility] [place] Temperature Oral (F) 2018-09-08 01:37:00 98.2 F [facility] Respitory Rate 2018-09-08 01:37:00 [facility] [place] Systolic (mm Hg) 2018-05-31 20:22:00 Isaak rial Jasbir Diastolic (mm Hg) 2018-05-31 20:22:00 [facility] [place] Respitory Rate 2018-05-31 20:22:00 [facility] [place] Systolic (mm Hg) 2018-05-31 19:33:00 Isaak rial Jasbir Diastolic (mm Hg) 2018-05-31 19:33:00 [facility] [place] Heart Rate 2018-05-31 19:33:00 [facility] [place] Respitory Rate 2018-05-31 19:33:00 Memori al J[place] Respitory Rate 2018-05-31 19:02:00 [facility] [place] Heart Rate 2018-05-31 19:02:00 [facility] Temperature Oral (F) 2018-05-31 19:02:00 98 F [facility] [place] Systolic (mm Hg) 2018-05-31 19:02:00 Isaak rial [place] Diastolic (mm Hg) 2018-05-31 19:02:00 [facility] [place] Heart Rate 2018-05-31 18:39:00 [facility] Temperature Oral (F) 2018-05-31 18:39:00 98.1 F [facility] [place] Height 2018-05-31 18:39:00 152.4 cm [facility] BMI Calculated 2018-05-31 18:39:00 [facility] [place] Weight 2018-05-31 18:39:00 [facility] Temperature Oral (F) 2016-12-10 10:30:00 98.2 F [facility] Respitory Rate 2016-12-10 10:00:00 Memori al Jasbir Systolic (mm Hg) 2016-12-10 10:00:00 Isaak rial [place] Diastolic (mm Hg) 2016-12-10 10:00:00 Mem o[facility] Jasbir Systolic (mm Hg) 2016-12-10 09:38:00 Isaak rial [place] Diastolic (mm Hg) 2016-12-10 09:38:00 [facility] Heart Rate 2016-12-10 09:38:00 [facility] Respitory Rate 2016-12-10 09:38:00 [facility] [place] Respitory Rate 2016-12-10 08:30:00 Mem[facility] al Jasbir Systolic (mm Hg) 2016-12-10 08:30:00 Isaak rial [place] Diastolic (mm Hg) 2016-12-10 08:30:00 [facility] [place] Heart Rate 2016-12-10 07:36:00 [facility] [place] BMI Calculated 2016-12-10 06:38:00 [facility] [place] Weight 2016-12-10 06:38:00 [facility] Height 2016-12-10 06:38:00 152.4 cm [facility] Temperature Oral (F) 2016-12-10 06:38:00 98.1 F [facility] [place] Heart Rate 2016-12-10 06:38:00 [facility] [place] Respitory Rate 2015-06-09 10:52:00 [facility] [place] Heart Rate 2015-06-09 10:52:00 [facility] J[facility] Systolic (mm Hg) 2015-06-09 10:52:00 Isaak rial J[place] Diastolic (mm Hg) 2015-06-09 10:52:00 Mem o[facility] J[place] Systolic (mm Hg) 2015-06-09 10:24:00 Isaak rial [place] Diastolic (mm Hg) 2015-06-09 10:24:00 [facility] o[facility] [place] Heart Rate 2015-06-09 10:24:00 [facility] [place] Respitory Rate 2015-06-09 10:24:00 Memori al Jasbir BMI Calculated 2015-06-09 06:12:00 [facility] [place] Weight 2015-06-09 06:12:00 [facility] [place] Height 2015-06-09 06:12:00 152.4 cm [facility] [place] Systolic (mm Hg) 2015-06-09 06:12:00 Isaak rial [place] Diastolic (mm Hg) 2015-06-09 06:12:00 [facility] o[facility] J[facility] Respitory Rate 2015-06-09 06:12:00 [facility] [place] Heart Rate 2015-06-09 06:12:00 [facility] [place] Temperature Oral (F) 2015-06-09 06:12:00 97.7 F [facility] [place] Respitory Rate 2015-04-06 12:57:00 [facility] [place] Systolic (mm Hg) 2015-04-06 12:57:00 Isaak rial [place] Diastolic (mm Hg) 2015-04-06 12:57:00 Mem o[facility] Jasbir Systolic (mm Hg) 2015-04-06 11:00:00 Isaak rial Jasb[place] Diastolic (mm Hg) 2015-04-06 11:00:00 [facility] [place] Respitory Rate 2015-04-06 11:00:00 Memori al Jasbir Systolic (mm Hg) 2015-04-06 10:00:00 Isaak rial J[place] Diastolic (mm Hg) 2015-04-06 10:00:00 [facility] [place] Respitory Rate 2015-04-06 10:00:00 [facility] [place] Temperature Oral (F) 2015-04-06 09:00:00 98 F [facility] [place] Temperature Oral (F) 2015-04-06 04:00:00 98 F [facility] Weight 2015-04-06 02:08:00 [facility] BMI Calculated 2015-04-06 02:08:00 [facility] Heart Rate 2015-04-06 02:08:00 [facility] [place] Height 2015-04-06 02:08:00 154.94 cm [facility] [place] Diastolic (mm Hg) 2014-04-17 00:30:00 [facility] Respitory Rate 2014-04-17 00:30:00 Memori al Jasb[place] Systolic (mm Hg) 2014-04-17 00:30:00 [facility] [place] Heart Rate 2014-04-17 00:30:00 [facility] Temperature Oral (F) 2014-04-17 00:30:00 98.4 F [facility] Respitory Rate 2014-04-16 21:00:00 [facility] Diastolic (mm Hg) 2014-04-16 21:00:00 [facility] [place] Systolic (mm Hg) 2014-04-16 21:00:00 [facility] Temperature Oral (F) 2014-04-16 21:00:00 98.0 F [facility] Heart Rate 2014-04-16 21:00:00 [facility] Systolic (mm Hg) 2014-04-16 16:04:00 [facility] Temperature Oral (F) 2014-04-16 16:04:00 98.0 F [facility] Heart Rate 2014-04-16 16:04:00 [facility] Diastolic (mm Hg) 2014-04-16 16:04:00 [facility] Respitory Rate 2014-04-16 13:00:00 [facility] Weight 2014-04-12 19:42:00 [facility] BMI Calculated 2014-04-12 19:42:00 [facility] Height 2014-04-12 19:42:00 152.4 cm [facility] Weight 2014-04-12 15:41:00 [facility] BMI Calculated 2014-04-12 15:41:00 [facility] Height 2014-04-12 15:41:00 152.4 cm [facility] Weight 2012-06-22 17:39:00 [facility] Height 2012-06-22 17:39:00 152.40 cm [facility] Diastolic (mm Hg) 2012-06-11 19:41:00 [facility] Heart Rate 2012-06-11 19:41:00 [facility] Systolic (mm Hg) 2012-06-11 19:41:00 [facility] Systolic (mm Hg) 2012-06-11 17:20:00 [facility] Diastolic (mm Hg) 2012-06-11 17:20:00 [facility] [place] Temperature Oral (F) 2012-06-11 16:25:00 99.0 F [facility] Diastolic (mm Hg) 2012-06-11 16:25:00 [facility] [place] Systolic (mm Hg) 2012-06-11 16:25:00 [facility] Heart Rate 2012-06-11 16:25:00 [facility] Respitory Rate 2012-06-11 16:25:00 [facility] [place] Temperature Oral (F) 2012-06-11 12:22:00 98.4 F [facility] Heart Rate 2012-06-11 12:22:00 [facility] Respitory Rate 2012-06-11 12:22:00 [facility] Respitory Rate 2012-06-11 09:00:00 [facility] Temperature Oral (F) 2012-06-11 09:00:00 98.2 F [facility] Weight 2012-05-31 18:54:00 [facility] Height 2012-05-31 18:54:00 152.40 cm [facility] Procedures Procedure Date / Time Performed Performing Clinician Sour e Endarterectomy [facility] Plan of Care Planned Activity Planned Date Details Comments Source Future Scheduled 2021-04-14 INFL[facility]ZA VACCINE [place] [facility] 00:00:00 [code = INFLUENZA VACCINE] Future [...] IPPE)] Future Scheduled 2011 65+ PNEUMOCOCCAL [facility] 00:00:00 VACCINE (1 of 1 - PPSV23) [code = 65+ PNEUMOCOCCAL VACCINE (1 of 1 - PPSV23)] Future Scheduled 1996 [facility]CER [facility] 00:[facility]:00 SCREENING [code = BREAST CANCER SCREENING] Future Scheduled 1996 COLONOSCOPY SCREENING [facility] Test 00:00:00 [code = COLONOSCOPY SCREENING] Future Scheduled 1996 SHINGLES VACCINES (#1) [place] [facility] 00:00:00 [code = SHINGLES VACCINES (#1)] Future Scheduled 1958 COVID-19 VACCINE (1) [facility] 00:00:00 [code = COVID-19 VACCINE (1)] Future Scheduled [address] [facility] 00:[facility]:00 [facility] colon (procedure) [code = 804694564] Future Scheduled [address] [facility] Test 00:00:00 [facility] breast (procedure) [code = 954560799] Encounters Start End Encounter Admission Attending Care Care Encounter Source Date/Time Date/Time Type Type Clinicians Facility Department ID 2019-12-05 2019-12-06 Outpatient DIANDRA Benson [facility] [id number] 10:17:39 15:00:00 Oljeffrey Palma 2019-12-05 2019-12-05 Inpatient E TW MED [id number] TW 13:24:00 10:17:00 2019-11-18 2019-11-18 Outpatient DIANDRA Kirkpatrick EVRIN [id number] 17:53:49 23:18:00 Perry Meyer 2019-11-18 2019-11-18 Emergency E MHTW TW [id number] TW 17:53:00 17:53:00 2019-10-20 2019-10-25 Outpatient DIANDRA Gorman [facility] [id number] 12:04:11 20:32:00 Rohan 10 2019-10-21 2019-10-20 Inpatient E MHTW MED [id number] MHTW 14:53:00 19:36:00 2019-10-03 2019-10-05 Outpatient Elena Harmon [facility] [id number] 13:36:06 17:00:00 09 2019-10-03 2019-10-03 Inpatient E MHTW MED [id number] MHTW 16:40:00 13:36:00 2018-09-07 2018-09-07 [facility] [id number] 19:21:00 23:22:00 Parker Tian 08 2018-09-07 2018-09-07 Emergency E MHSE MHSE [id number] 19:21:00 19:21:00 [facility] 2018-05-31 2018-05-31 Outpatient Hannah Gonzalez [facility] [id number] 13:38:00 15:52:00 Dori Meyer 07 2016-12-10 2016-12-10 Outpatient Vickey [facility] [id number] 01:34:00 05:45:00 Salima Tian 06 2015-06-09 2015-06-09 Outpatient Jurgen ERVIN [facility] [id number] 01:10:00 05:57:00 Syd Guevara 05 2015-04-05 2015-04-06 Outpatient Raven [facility] [id number] 21:07:00 08:50:00 Vargas 04 2014-04-12 2014-04-16 Outpatient MerFern [facility] [id number] 10:37:00 20:00:00 Mohammad 03 Results Test Description [...] B/C Ratio) 24 1 6-25 [facility] IRFZP6643-85-66 06:29:503.1[facility]annCHE[facility] PANEL 2019-12-06 06:29:50 Test Item Value Reference Range Interpretation Comments A/G Ratio (test code = A/G Ratio) 0.8 1 0.7-1.6 [facility] EKURO9963-20-50 06:29:5064[facility]annHEMATOLOGY 2019-12-06 06:29:5083.6[facility] NjeplrrEVLRLQBEWE9251-32-26 06:29:507.7[facility] AvrwkmwQIRCILBDVZ6316-06-00 06:29:504.5[facility] OpveufdWCQTFQVLUR4632-31-08 06:29:503.8[facility] FfxkbywJJTGZJAIDX7212-39-00 06:29:500.4[facility] YNDDUJHSXX6393-63-73 06:29:506.2[facility] MrhogwfPPCESNDQEM5787-67-78 06:29:500.6 [facility] LwmintuKHGENZKDUC2713-91-21 06:29:500.3[facility]annHEMATOLOGY 2019-12-06 06:29:500.3[facility] EqceoazMLLJXDSZVN2479-44-64 06:29:507.5[facility] VtzniujLIRWREFGCY2969-58-13 06:29:503.31[facility] QlcolasYEVIRULPKY3495-08-56 06:29:508.5[facility] OgqqjhqXZKNPKDWHV8824-12-54 06:29:5026.9[facility] WBFRXIFZNF3775-24-67 06:29:5081.5[facility] YfgepefOIUQZTMDXD8123-34-12 06:29:50 Test Item Value Reference Range Interpretation Comments MCH (test code = MCH) 25.7 pg 27.0-31.0 [facility] OziftnqDFPVEHOCFJ5340-51-83 06:29:5031.6[facility]annHEMATOLOGY 2019-12-06 06:29:5014.6[facility] LqgxdrnBOWZXWGLUJ3563-49-69 06:29:41011Cneqowus DfwinzxCELYVMJDGA3392-20-86 06:29:508.9[facility] HermannMOLECULAR DIAGNOSTIC 2019-12-05 18:47:00Nasophrngl Swb *NA*(12/05/19 1:47 PM)[facility]annMOLECULAR CQIKFZQVGQ4843-93-80 18:47:00Negative *NA*(12/05/19 1:47 PM)[facility] MOLECULAR HIKITONZEX5356-79-44 18:47:00Negative *NA*(12/05/19 1:47 PM)[facility]annMOLECULAR VDQUNETJJS9784-53-17 18:47:00Negative *NA*(12/05/19 1:47 PM) [facility]annANEMIA XMMTP3309-15-09 16:26:0019[facility]annCARDIAC ENZYMES 2019-12-05 16:26:0024[facility]annCARDIAC RZKOJRB0308-86-40 16:26:00<0.02 [facility]annCHEM HLGSM7506-07-88 16:26:001.36[facility]annCHEM PANEL 2019-12-05 16:26:74685Zfzqsvxr HermannCHEM OYMUA5405-57-66 16:26:0014[facility]annCHEM KIFVT6759-49-47 16:26:000.75[facility]annCHEM VAQAK7773-99-37 16:26:79651Wpcvxmeh HermannCHEM CPBKY2965-75-80 16:26:004.3[facility]annCHEM BUNYU2550-50-01 16:26:17971Hvivutzk HermannCHEM ATYHV2615-15-72 16:26:0025 [facility]annCHE[facility] TEKCH7017-68-43 16:26:009.1[facility]annCHEM PANEL 2019-12-05 16:26:006.8[facility]annCHEM OIVVO8543-24-82 16:26:003.0[facility]annCHEM EJIIG5878-94-40 16:26:0015[facility]annCHEM IIKMY8345-35-16 16:26:0011[facility]annCHEM TEYVD1948-81-72 16:26:0058[facility]annCHE[facility] HSPZX1121-58-72 16:26:000.2[facility]annCHE[facility] HVCWR4168-83-90 16:26:009.3 [facility]annCHE[facility] TEOLL2358-45-67 16:26:00 Test Item Value Reference Range Interpretation Comments B/C Ratio (test code = B/C Ratio) 19 1 6-25 [facility] USHQO6027-80-85 16:26:003.8[facility]annCHEM PANEL 2019-12-05 16:26:00 Test Item Value Reference Range Interpretation Comments A/G Ratio (test code = A/G Ratio) 0.8 1 0.7-1.6 [facility] XSGCV9382-72-90 16:26:0079[facility]annCHEM PANEL 2019-12-05 16:26:000.8[facility]annCHEM QQTOC5391-91-88 16:26:42001Roxkyuwk VynmruaRQJZOBMREW9687-09-76 16:26:0012.3[facility] DpkhxyqTOLSVQOQNB5618-95-88 16:26:003.87[facility] JcbashuWXIKPDADJS3979-46-81 16:26:009.9[facility] UWWYJRXKSD7371-74-16 16:26:0031.5[facility] OnknlylTGJYMIIUXN4223-51-18 16:26:00 81.2[facility] EkwrbvmGAPVCHIUDD6973-45-89 16:26:00 Test Item Value Reference Range Interpretation Comments MCH (test code = MCH) 25.5 pg 27.0-31.0 [facility] UcjgtjwZJHWFUEIYQ0513-15-12 16:26:0031.4[facility] HermannHEMATOLOGY 2019-12-05 16:26:0014.7[facility] EeehphyFDQDLNYPZD9144-40-16 16:26:19848Tpvoeqso VjzjwijZMMGPVAOYI4868-38-70 16:26:008.8[facility] TcixvocFRPPQJFAIT4958-11-53 16:26:00 Test Item Value Reference Range Interpretation Comments PT (test code = PT) 14.0 s 12.0-14.7 [facility] CdoruscMRVRPERJOV1023-30-46 16:26:00 Test Item Value Reference Range Interpretation Comments INR (test code = INR) 1.08 1 0.85-1.17 [facility] HpjrydgXARTLYCKAV6901-32-30 16:26:00 Test Item Value Reference Range Interpretation Comments PTT (test code = PTT) 26.0 s 22.9-35.8 [facility] UlbxylrVIIKTMUWIS4779-34-94 16:26:0094.6[facility] HermannHEMATOLOGY 2019-12-05 16:26:001.5[facility] KsosnpiZXRXEDJEZJ3429-64-59 16:26:002.9[facility] TprsggmAHBWTYSJEE8598-34-35 16:26:000.6[facility] QixwynxSVEUSYFZIQ3011-85-08 16:26:000.4[facility] XpmuzxsNFMQTQRDWB0713-88-45 16:26:0011.7[facility] WZVVHRLHGE3927-30-29 16:26:000.2[facility] LcgklldPFVJYXOOGN5145-10-36 16:26:000.4 [facility] LkbfyhkLKFKODJYLY1559-06-06 16:26:000.1[facility] HermannIMMUNOLOGY 2019-12-05 16:26:0015.4[facility]annUR[facility] AND HYOCH8149-04-57 16:26:00Clear (12/05/19 11:26 AM)[facility] STQQX3499-60-32 16:26:00 Test Item Value Reference Range Interpretation Comments UA Spec Grav (test code = UA Spec 1.010 1 Grav) [facility] BRKOQ2132-16-94 16:26:00 Test Item Value Reference Range Interpretation Comments UA pH (test code = UA pH) 7.0 1 5.0-8.0 [facility] JVOIW2937-90-24 16:26:00Negative *NA*(12/05/19 11:26 AM)[facility] EPWOA3956-03-57 16:26:00Negative (12/05/19 11:26 AM) [facility] ZYTQG9574-85-73 16:26:00Negative (12/05/19 11:26 AM) [facility] QPQDA5114-29-93 16:26:00Negative (12/05/19 11:26 AM) [facility] AJFXE1128-44-85 16:26:00<1[facility] OCDKV7856-54-78 16:26:00<1[facility] HermannCARDIAC NZNNPLB3816-20-69 00:35:00 62[facility]annCARDIAC VBGVLUH1847-42-58 00:35:00<0.02[facility] CARDIAC RAWAZKE2724-88-12 00:35:0025[facility]annCHEM JBECH7821-62-76 00:35:43058Zbktqdaw HermannCHEM GHDPN0401-27-32 00:35:0032[facility]annCHEM BLVBE4758-48-31 00:35:001.26[facility]annCHEM KSHNT4326-82-20 00:35:72099 [facility]annCHE[facility] HZXOT7641-36-21 00:35:004.1[facility]annCHEM PANEL 2019-11-19 00:35:37562Iakfurdq HermannCHEM ELLVS2632-09-40 00:35:0022[facility]annCHEM QBIEP4799-81-88 00:35:009.3[facility]annCHEM SXCQC4797-09-43 00:35:007.2[facility]annCHEM XZIKM5486-84-91 00:35:003.4[facility]annCHEM BQMMV2625-06-37 00:35:0016[facility]annCHEM UPOVK9485-86-45 00:35:009[facility]annCHEM PMTJD2952-38-66 00:35:0069[facility]annCHEM FQFKN5008-67-85 00:35:000.2[facility]annCHEM CBASV3693-13-64 00:35:0011.1[facility]annCHEM CAAIP5736-83-50 00:35:00 Test Item Value Reference Range Interpretation Comments B/C Ratio (test code = B/C Ratio) 25 1 6-25 [facility]CHE[facility] PXLTN4708-36-26 00:35:003.8[facility]annCHEM PANEL 2019-11-19 00:35:00 Test Item Value Reference Range Interpretation Comments A/G Ratio (test code = A/G Ratio) 0.9 1 0.7-1.6 [facility]annCHE[facility] SMSNI3197-32-79 00:35:0042[facility]annHEMATOLOGY 2019-11-19 00:35:0052.3[facility] SvjdiywNNFHSUYHNU9863-65-67 00:35:0024.7[facility] YxlzchlDELLEYIHWS6435-99-02 00:35:008.2[facility] ZryumpmERHPMNRVSF8794-65-07 00:35:0014.0[facility] FicyqtxNKYMTCHLZN9336-27-53 00:35:000.8[facility] KZHJOLUWDE1889-67-83 00:35:003.4[facility] DtawrxaSIUVZERLPE8878-81-58 00:35:001.6 [facility] VweulqiPQOXARXFTH2041-97-56 00:35:000.5[facility] HermannHEMATOLOGY 2019-11-19 00:35:000.9[facility] NultaugRMNXSDUTED7811-44-73 00:35:000.1[facility] MbayqsdIPJPDXCITX7089-80-39 00:35:006.4[facility] ByfgajrMLSWXFZECZ1391-03-46 00:35:004.04[facility] EvopbyeVQYRKRRGIQ7749-38-48 00:35:0010.4[facility] EHFLJYSYTM0645-61-40 00:35:0033.5[facility] FqhanzjNJFYXTUIEW3190-25-13 00:35:00 82.9[facility] UdifzglKQFHUHKYCJ9728-73-78 00:35:00 Test Item Value Reference Range Interpretation Comments MCH (test code = MCH) 25.9 pg 27.0-31.0 [facility] TgmjcacOVAQJHTKCN5850-55-10 00:35:0031.2[facility] HermannHEMATOLOGY 2019-11-19 00:35:0014.9[facility] LvpulvbQROBFNLJQL7126-92-74 00:35:64061Zblhxxao RvzewejRABWNWWYBQ6475-65-56 00:35:008.8[facility] HntnmtiDISHOUWKNO0864-35-16 00:35:00 Test Item Value Reference Range Interpretation Comments PT (test code = PT) 13.5 s 12.0-14.7 [facility] GcctsbyCLQHEXCEZR1615-80-52 00:35:00 Test Item Value Reference Range Interpretation Comments INR (test code = INR) 1.03 1 0.85-1.17 [facility] PdurbkpWKYSJUVCQG0863-95-63 00:35:00 Test Item Value Reference Range Interpretation Comments PTT (test code = PTT) 27.4 s 22.9-35.8 [facility]annCHE[facility] LFZOE3910-71-62 09:04:0092[facility]annCHEM PANEL 2019-10-22 09:04:0015[facility]annCHEM SPYZE8822-54-67 09:04:000.72[facility]annCHEM SFZKZ7739-84-18 09:04:58384Jtjzxwkk HermannCHEM ZIXGA9661-54-98 09:04:003.9[facility]annCHEM HYBDQ6330-07-12 09:04:35858Yfdpqxoj HermannCHEM WIVPF4535-09-65 09:04:0026[facility]annCHEM WCQOP0357-44-15 09:04:008.6 [facility]annCHE[facility] ZHBZR5839-89-89 09:04:008.9[facility]annCHEM PANEL 2019-10-22 09:04:0084[facility] LypolhyXUKSBKXRPZ8811-66-24 09:04:006.7[facility] SqahzccUGUHCNHRJP3359-12-43 09:04:003.39[facility] RdymjkaAAPFOEDBUL7800-80-74 09:04:009.0[facility] UnhwbafSGBSOUDFRE5737-82-72 09:04:0027.8[facility] FNLTDVREYK7533-11-99 09:04:0082.2[facility] LtvklqfKXUKBENCAP5970-92-60 09:04:00 Test Item Value Reference Range Interpretation Comments MCH (test code = MCH) 26.7 pg 27.0-31.0 [facility] UdccwknVZDLVADYHI7633-23-14 09:04:0032.5[facility] HermannHEMATOLOGY 2019-10-22 09:04:0014.9[facility] MzfruofKZCACMFKKB1202-79-31 09:04:37352Wuuefzyj FmnppcrGSLLPGOJQT4176-68-29 09:04:008.6[facility] BwymjbdIMUGJETSWZ4039-96-88 09:04:0055.6[facility] HhnyymnDLPHXSTAEQ1849-03-92 09:04:0028.1[facility] HIFQQDKDQY4753-58-60 09:04:009.2[facility] JiatlioRFEWBFRFIJ5045-51-62 09:04:006.1 [facility] OofeuoxNSDNZQCZFG0570-80-81 09:04:001.0[facility]annHEMATOLOGY 2019-10-22 09:04:003.7[facility] NaogmtsUIKOBHHRAC5663-15-51 09:04:001.9[facility] KtzcwtvUQOYQBDXFX2666-83-81 09:04:000.6[facility] RidrulkKWLZSGQZXH7329-57-42 09:04:000.4[facility] EasxeubDUYBYCHJHO9677-34-67 09:04:000.1[facility] HermannCHEM WJDKO9088-38-93 09:19:0072[facility]annCHEM TCYYY3331-59-63 09:19:0020 [facility]annCHE[facility] BOLZU6184-72-82 09:19:000.71[facility] HermannCHEM PANEL 2019-10-21 09:19:60385Egygaamp HermannCHEM BADKV8443-72-45 09:19:004.0[facility]annCHEM XVSZI0196-98-16 09:19:94716Ucopobbi HermannCHEM FYSDY1517-49-87 09:19:0024[facility]annCHEM UPOCM2481-68-77 09:19:0013.0[facility]annCHEM DIXMT7639-98-47 09:19:009.1[facility]annCHEM OWRBN6339-57-56 09:19:00 Test Item Value Reference Range Interpretation Comments B/C Ratio (test code = B/C Ratio) 28 1 6-25 [facility]annCHE[facility] ZTDXE3584-78-24 09:19:006.3[facility]annCHEM PANEL 2019-10-21 09:19:002.9[facility]annCHEM JNEAY6553-31-85 09:19:003.4[facility]annCHEM WRETL1780-29-78 09:19:00 Test Item Value Reference Range Interpretation Comments A/G Ratio (test code = A/G Ratio) 0.9 1 0.7-1.6 [facility]annCHE[facility] JXFHT6974-82-39 09:19:0015[facility]annCHEM PANEL 2019-10-21 09:19:0016[facility]annCHEM DYWIS6682-26-79 09:19:0056[facility]annCHEM QHTVT7336-38-31 09:19:000.3[facility]annCHEM TLWQF8436-62-40 09:19:0084[facility] NdnspwiSFIVPJNBTP3707-65-45 09:19:0075.0[facility] ZWUNLQZAIX1593-61-26 09:19:0014.1[facility] XxgcxmrJHJQQGUPCC3095-11-64 09:19:00 8.4[facility] JkhgkxhJQVHUAYAYO7444-00-02 09:19:001.9[facility] HermannHEMATOLOGY 2019-10-21 09:19:000.6[facility] BmklmhhKLUJMYSZGX6827-27-62 09:19:008.1[facility] LyyceszJAEHQZIYMD4637-92-01 09:19:001.5[facility] QwqipkxRGUVCRTOAC5856-03-42 09:19:000.9[facility] LvwpumsQCOJVZZPAD3272-49-90 09:19:000.2[facility] NCSDRCSWRC1607-83-14 09:19:000.1[facility] AmijsgtRCQBEBQXCU2651-53-31 09:19:00 10.8[facility] PdmggvcPMPPEIOXVU9101-79-26 09:19:003.78[facility] HermannHEMATOLOGY 2019-10-21 09:19:009.9[facility] TmqnltaJUAAFACLJA2719-92-37 09:19:0030.9[facility] EzljmuqSJNTTYBFZF3449-49-17 09:19:0081.9[facility] GhwhzcjGQHMLWGREW5181-34-58 09:19:00 Test Item Value Reference Range Interpretation Comments MCH (test code = MCH) 26.3 pg 27.0-31.0 [facility] GelsbeeOVHVUMXSKC6720-16-75 09:19:0032.1[facility] HermannHEMATOLOGY 2019-10-21 09:19:0015.2[facility] LuulvclNXKTKAAAAK6941-18-79 09:19:76126Lpxwlbrz NphibpyNYLVONNQKH7063-06-03 09:19:008.2[facility] WDKSJ4160-44-07 08:04:00Clear (10/21/19 2:04 AM)[facility] XYQNZ4642-14-17 08:04:00 Test Item Value Reference Range Interpretation Comments UA Spec Grav (test code = UA Spec 1.033 1 Grav) [facility] NFBQK5320-26-19 08:04:00 Test Item Value Reference Range Interpretation Comments UA pH (test code = UA pH) 8.0 1 5.0-8.0 [facility] ESZYS4885-06-81 08:04:00Negative *NA*(10/21/19 2:04 AM) [facility] ZOJLM6839-00-75 08:04:00Negative (10/21/19 2:04 AM) [facility] ZUGUE4119-36-56 08:04:00Negative (10/21/19 2:04 AM) [facility] QJFMW7453-11-21 08:04:00Negative (10/21/19 2:04 AM) [facility] NHLVF8112-58-39 08:04:004[facility] RGARN2374-82-49 08:04:001[facility] JTRLA1967-43-19 08:04:001 [facility]annCARDIAC ADCCWZS6407-74-41 18:55:00<0.02[facility] HermannCHEM WJDOX5573-93-64 18:55:43672Svwbcjwb HermannCHEM JNOND5384-42-19 18:55:0026 [facility]annCHEM ZRTWG1010-40-07 18:55:000.82[facility] HermannCHEM PANEL 2019-10-20 18:55:91218Qkittuae HermannCHEM LZSHI5401-76-96 18:55:003.8[facility] HermannCHEM XHFNI9080-29-09 18:55:65371Xepjffkr HermannCHEM YQSIP0846-74-88 18:55:0030[facility]annCHEM PRPIJ9352-45-48 18:55:009.7[facility] HermannCHEM DKSHQ8356-23-97 18:55:007.3[facility]annCHEM KJTDQ8775-63-18 18:55:003.4 [facility]annCHEM HZSQE0130-06-52 18:55:0018[facility]annCHEM PANEL 2019-10-20 18:55:0017[facility] HermannCHEM GGASD9827-69-03 18:55:0066[facility] HermannCHEM ZVYQH3784-11-71 18:55:000.4[facility] HermannCHEM GACRM1493-37-40 18:55:009.8[facility] HermannCHEM UHIMO0693-19-39 18:55:00 Test Item Value Reference Range Interpretation Comments B/C Ratio (test code = B/C Ratio) 32 1 6-25 [facility]annCHEM IDBME2168-09-99 18:55:003.9[facility] HermannCHEM PANEL 2019-10-20 18:55:00 Test Item Value Reference Range Interpretation Comments A/G Ratio (test code = A/G Ratio) 0.9 1 0.7-1.6 [facility]annCHEM MSJZM6527-71-27 18:55:0071[facility] HermannCHEM PANEL 2019-10-20 18:55:63625Kaybexvn HermannCHEM GQMEG0892-50-13 18:55:001.1[facility] NrwweszONEYXZCMBN0150-07-04 18:55:0014.3[facility] FlxeipcDRVKYZXZVD8268-08-92 18:55:004.34[facility] RorhsjdCHKMYHZDGZ5797-18-82 18:55:0011.4[facility] HZKMKCQFSE2114-14-05 18:55:0035.6[facility] NwhqtpzKVFJHOWGAJ3452-89-20 18:55:00 82.1[facility] KrxfdvzSDDEEAGIQY6841-07-82 18:55:00 Test Item Value Reference Range Interpretation Comments MCH (test code = MCH) 26.4 pg 27.0-31.0 [facility] CvggihrCRNWSYRQTA0382-07-07 18:55:0032.1[facility] HermannHEMATOLOGY 2019-10-20 18:55:0015.2[facility] PuvkmcaUPSMCSMQLI3850-99-09 18:55:10525Sxeggppq WntkoqoCNKOGSUSAB7941-46-34 18:55:008.1[facility] NqyhjmpXENDFCNBMH5237-87-15 18:55:00 Test Item Value Reference Range Interpretation Comments PT (test code = PT) 14.0 s 12.0-14.7 [facility] JggoyraDELIEZHSAY6769-65-98 18:55:00 Test Item Value Reference Range Interpretation Comments INR (test code = INR) 1.08 1 0.85-1.17 [facility] HfoudmkWRYXSIXKXQ7080-08-86 18:55:0085.8[facility] HermannHEMATOLOGY 2019-10-20 18:55:007.6[facility] GryreimZQONSZPYIW1285-44-96 18:55:005.9[facility] VaqvsewXLKAXLZNBZ7599-23-05 18:55:000.4[facility] FdbkccsBAEBRWRKBP9570-61-46 18:55:000.3[facility] UynoysaUKLIZCGQFR2516-41-47 18:55:0012.3[facility] DADOXOLABL5725-43-16 18:55:001.1[facility] FkpjtbeVAVDUUBXUC0961-76-32 18:55:000.8 [facility] WlhmosuAQZPTAAATM9696-05-84 18:55:000.1[facility] HermannCHEM PANEL 2019-10-05 11:45:88608Cdetmczj HermannCHEM GDCKP6515-74-74 11:45:0015[facility] HermannCHEM DGOLY3432-28-14 11:45:000.72[facility] HermannCHEM NZNBS2943-94-63 11:45:55343Qkmwtcvk HermannCHEM GIPYY6130-38-47 11:45:003.4[facility] HermannCHEM TEEYJ2119-09-45 11:45:69522Gnrbhkjy HermannCHEM XRPGZ2327-53-60 11:45:0026 [facility]annCHEM WOMIU4881-28-15 11:45:009.4[facility] HermannCHEM PANEL 2019-10-05 11:45:008.4[facility] HermannCHEM FMEPW4226-57-78 11:45:0084[facility] GaenmrrNJQCMCQKGO3225-92-86 11:45:008.8[facility] WtldqthEVFGOZQLAN1879-05-14 11:45:003.92[facility] CflqvibDDFRXWLDRM5358-82-67 11:45:0010.3[facility] ZRSOQMWLKQ8455-28-23 11:45:0031.8[facility] YrivsbfXVYWGZZLRI2988-98-45 11:45:00 81.3[facility] ObonsbuZMIHHTJYYS9630-50-21 11:45:00 Test Item Value Reference Range Interpretation Comments MCH (test code = MCH) 26.3 pg 27.0-31.0 [facility] HfkghsaYMOLXHEXTQ6366-97-83 11:45:0032.3[facility]annHEMATOLOGY 2019-10-05 11:45:0014.2[facility] SxolrhyKRHYVAHPLY6341-34-26 11:45:35714Ivbcvrfu HwkteriESBXVCLJLP6407-10-72 11:45:008.1[facility] SocbzrvNTMLUSGAVR7126-19-86 11:45:0067.0[facility] OcsifkbGUHGJLEYZD7804-67-68 11:45:0021.6[facility] FANECEJPRF1762-86-96 11:45:008.2[facility] RnpwdyvADIYGQUKLV0027-17-90 11:45:002.5 [facility] MgepddlRTYKJZNXGI4288-96-33 11:45:000.7[facility]annHEMATOLOGY 2019-10-05 11:45:005.9[facility] TfrcwsqNLFFMJGCWJ6602-77-20 11:45:001.9[facility] YpclcarVXBXXXYFOF7941-07-58 11:45:000.7[facility] XazwdwzMWRQJFODCO9256-37-41 11:45:000.2[facility] TnubtctVQMHKURMEN2235-48-94 11:45:000.1[facility]annCHEM FNUMN3850-58-96 11:50:0062[facility]annCHE[facility] ICVFP1088-56-43 11:50:0031 [facility]CHE[facility] VWPPQ1903-21-17 11:50:000.80[facility]annCHEM PANEL 2019-10-04 11:50:51607Ubykmuho HermannCHEM LMXGI0098-97-74 11:50:003.8[facility]annCHEM JUZVH4958-14-37 11:50:06080Akvtbtrz HermannCHEM JJNIT0815-86-80 11:50:0027[facility]annCHEM QFBBV6292-95-29 11:50:008.7[facility]annCHE[facility] UEAFK1305-85-38 11:50:008.8[facility]annCHE[facility] CJLTH7748-35-71 11:50:0073 [facility] NkjvvlrEKPPEIWKGA2526-98-72 11:50:0081.6[facility]annHEMATOLOGY 2019-10-04 11:50:0011.9[facility] WveyjceACOMLTIMUX9863-16-45 11:50:005.5[facility] XawvwgxVBWRULWLEE1135-76-46 11:50:000.5[facility] InfnqxjDPYPGKNIZZ1990-58-52 11:50:000.5[facility] GedodnuMEURJJXJYJ4168-52-59 11:50:0012.8[facility] DIOGXSVAER9852-39-69 11:50:001.9[facility] FwrptbuRMXIWYNDRO5071-63-56 11:50:000.9 [facility] VlzispzHZGMLQZQRG7261-40-39 11:50:000.1[facility]annHEMATOLOGY 2019-10-04 11:50:000.1[facility] TjqhityDVQCVWYAFO4180-87-31 11:50:0015.7[facility] LkwmomnVWJTQYHXLY0210-46-23 11:50:003.95[facility] YmnpttpBKOJPAJDEO1986-36-49 11:50:0010.2[facility] BkrwfjyGITIPTSDDX3186-55-83 11:50:0032.3[facility] EKSJHNLKCJ7790-20-10 11:50:0081.9[facility] OuyvoykMBJSNQLGVJ9579-34-64 11:50:00 Test Item Value Reference Range Interpretation Comments MCH (test code = MCH) 25.9 pg 27.0-31.0 [facility] ThxclqvHHQCRTDUTZ9827-90-81 11:50:0031.6[facility]annHEMATOLOGY 2019-10-04 11:50:0014.9[facility] NwynoouQMTVOYBTDF9414-01-60 11:50:55879Swfvczmc GzirftiNGGSDFXCAS4330-61-45 11:50:008.3[facility]annCARDIAC QXJUNPQ4208-46-03 21:57:0081[facility]annCARDIAC ZYMWFXF5622-71-99 21:57:00<0.02[facility]annCHEM WICIE4777-70-14 21:57:0085[facility]annCHEM LKJTM2718-22-56 21:57:0038[facility]annCHEM FHGZW5310-49-09 21:57:001.00[facility]annCHEM ALERE5219-77-37 21:57:72849Ajnqbueo HermannCHEM OPPIZ5383-73-63 21:57:005.3 [facility]annCHE[facility] ZYAGC0792-11-90 21:57:17120Zvexvrvf HermannCHEM PANEL 2019-10-03 21:57:0024[facility]annCHEM JSHPI9643-00-45 21:57:008.5[facility]annCHEM JNXQO6139-42-73 21:57:006.1[facility]annCHEM LPZEZ8190-56-17 21:57:002.6[facility]annCHEM MEWOG5876-57-27 21:57:0012[facility]annCHEM VZIAH0423-16-94 21:57:0019[facility]annCHEM BKURQ0698-70-12 21:57:0052 [facility]annCHE[facility] LCLGP7765-35-45 21:57:000.3[facility]annCHEM PANEL 2019-10-03 21:57:0011.3[facility]annCHEM BKLXZ5811-47-11 21:57:00 Test Item Value Reference Range Interpretation Comments B/C Ratio (test code = B/C Ratio) 38 1 6-25 [facility]CHE[facility] AKJGF7731-25-92 21:57:003.5[facility]annCHEM PANEL 2019-10-03 21:57:00 Test Item Value Reference Range Interpretation Comments A/G Ratio (test code = A/G Ratio) 0.7 1 0.7-1.6 [facility]CHE[facility] QLNUE0226-69-52 21:57:0056[facility] CEFEPIME:SUSC:PT:ISOLATE:ORDQN:NVQ5592-79-64 21:05:00Proteus mirabilisMemorial HermannURINE AND HYPJD3148-62-72 21:05:00Slight *ABN*(10/03/19 3:05 PM)[facility] IYVBO1334-23-53 21:05:00 Test Item Value Reference Range Interpretation Comments UA Spec Grav (test code = UA Spec 1.017 1 Grav) [facility] IDJZX8628-02-08 21:05:00 Test Item Value Reference Range Interpretation Comments UA pH (test code = UA pH) 7.0 1 5.0-8.0 [facility] WZKYP1500-88-99 21:05:00Negative *NA*(10/03/19 3:05 PM) [facility] EAEER0009-74-01 21:05:00Moderate *ABN*(10/03/19 3:05 PM)[facility] KIPVJ8517-26-10 21:05:002.0[facility] TYQOL7312-76-28 21:05:00Positive *ABN*(10/03/19 3:05 PM)[facility] JZNMW2648-95-47 21:05:00Large *ABN*(10/03/19 3:05 PM)[facility] EGVBC5631-51-57 21:05:0090[facility] LRCKW8405-77-38 21:05:00 9[facility] SKTIY3293-84-52 21:05:004[facility]annCHEM PANEL 2019-10-03 20:43:00<0.05[facility]annCHEM UFXMN7477-06-00 20:43:001.3 [facility] BqmrybkCJIDSEGLAL3197-33-29 20:43:0020.6[facility]annHEMATOLOGY 2019-10-03 20:43:004.33[facility] RkbgcnoLBMAQZUATC4564-33-50 20:43:0011.2[facility] QfwlmfxUGUSVQBDEO9676-12-62 20:43:0035.9[facility] KfavdfyMTBETGPYRV8779-44-08 20:43:0083.0[facility] XcvhblbKERCCJWNFI4953-47-34 20:43:00 Test Item Value Reference Range Interpretation Comments MCH (test code = MCH) 25.9 pg 27.0-31.0 [facility] XuzdbpeKKQWDMLEMA5246-41-99 20:43:0031.2[facility]annHEMATOLOGY 2019-10-03 20:43:0014.9[facility] XcdlmzkOMCZJRRWPY3316-23-01 20:43:74323Fdvkvepj GbjmfxaSQYRPRVOEE3170-08-83 20:43:007.9[facility] DzrkecaXQNCTJCZHB6584-46-13 20:43:00 Test Item Value Reference Range Interpretation Comments PT (test code = PT) 14.3 s 12.0-14.7 [facility] AzkicmxAHATOKPGND9685-12-19 20:43:00 Test Item Value Reference Range Interpretation Comments INR (test code = INR) 1.11 1 0.85-1.17 [facility] AalkxcfIVEMJAYCIA2494-91-59 20:43:00 Test Item Value Reference Range Interpretation Comments PTT (test code = PTT) 24.8 s 22.9-35.8 [facility] OithbqjLAPTPXSWTH7910-34-53 20:43:0088.7[facility] HermannHEMATOLOGY 2019-10-03 20:43:005.5[facility] KfpakycXMPEQFZYCT5071-67-15 20:43:005.3[facility] CusseaePDKWFGTRFR6945-04-62 20:43:000.3[facility] EhiqjmeBFSEWOCFUG7000-09-53 20:43:000.2[facility] AikfpgtLBQKJYHQPD6200-32-14 20:43:0018.2[facility] VOOVIZMDJW9879-52-49 20:43:001.1[facility] PhadwciZMNPTSVOOE3566-88-12 20:43:001.1 [facility] ZupenkoRONLFXJUOZ3414-87-40 20:43:000.1[facility] HermannMR, EXTREMITY, LOWER, JOINT, WITHOUT CONTRAST, NEOLL5924-88-88 17:12:00Reason for exam:->RT hip pain, concern occult [...] iliopsoas tendon as above. Signed: Zoltan Narayan MDReport Verified Date/Time: 09/17/2018 17:12:01 Reading Location: [facility] B1 C013X Ortho Consult Reading Room RAD, KNEE, 3 VIEWS, TSFNE5734-31-06 15:21:00Reason for exam:->KNEE PAIN Should this be [...] Ulises Walton Verified Date/Time: 09/17/2018 15:21:02 Reading Location:[facility] Diagnostic Imaging Reading Room - [facility] F1 1.310.12 RAD, HIP, 2 VIEWS, WUMDX3123-27-16 15:19:00Reason for exam:->Rt Hip Pain, traumaShould this be performed at the bedside?->NoFINAL REPORT RIGHT HIP History provided: Right hip pain No fracture or dislocation. Hip joint space well maintained. Evidence of extensive multilevel fusion procedure in the lumbar spine. Signed: Ulises Walton Verified Date/Time: 09/17/2018 15:19:53 Reading Location: [facility] Diagnostic Imaging Reading Room - [facility] F1 1.310.12 Electronically signed by: ULISES Marin 09/17/2018 03:19 PMURINE AND RONBP1534-24-60 08:10:00Negative (12/10/16 3:10 AM)[facility] BLLVR6443-20-75 08:10:00<1[facility] VQFYO6142-76-35 08:10:00Negative (12/10/16 3:10 AM)[facility] QQADB8333-81-21 08:10:00Negative (12/10/16 3:10 AM)[facility] UPGOB5670-00-41 08:10:00Negative *NA*(12/10/16 3:10 AM)[facility] SAQTH4897-84-42 08:10:00Light Yellow *NA*(12/10/16 3:10 AM)[facility] IWZWI3575-61-44 08:10:00Clear (12/10/16 3:10 AM)[facility] HMCGL1166-70-09 08:10:006.5[facility] QLVWQ6186-49-42 08:10:001.008[facility]annCARDIAC QOXGTKT1728-54-58 07:48:0059[facility]annCARDIAC BRPMESM5808-32-72 07:48:00<0.02[facility]annCARDIAC MTUJHVB0472-68-44 07:48:001.4[facility]annCARDIAC ENZYMES 2016-12-10 07:48:002.4[facility] HermannCHEM IYIZK5375-20-53 07:48:0055[facility]annCHEM VEDXD6522-41-34 07:48:0023[facility]annCHEM TOZLA9295-23-74 07:48:003.5[facility]annCHEM UMRFJ9984-19-06 07:48:0016.2[facility]annCHEM XSCWG5943-84-33 07:48:001.04[facility] HermannCHEM CTSWD7340-64-78 07:48:79124 [facility]annCHEM BABNN0119-68-79 07:48:0024[facility]annCHEM PANEL 2016-12-10 07:48:23970Jpforikw HermannCHEM EBQNB0423-47-34 07:48:001.1[facility]annCHEM SRDPA2536-81-08 07:48:009.6[facility]annCHEM UPHHF3916-00-85 07:48:007.3[facility]annCHEM UPIKF3147-80-68 07:48:01955Yzhviziv HermannCHEM BJKIZ1748-03-19 07:48:0022[facility] HermannCHEM BAWZW5544-85-40 07:48:005.2 [facility]annCHEM DMUZE5836-32-79 07:48:000.1[facility] HermannCHEM PANEL 2016-12-10 07:48:0012[facility] HermannCHEM DEIIH4139-40-11 07:48:0058[facility]annCHEM CPUCV7588-87-82 07:48:0015[facility]annCHEM TMLBT0886-57-97 07:48:003.8[facility] XqvjmmbZBUZZNGTEQ5290-14-17 07:48:0010.0[facility] FRZQOUKYYU2413-28-05 07:48:0083.2[facility] PpraqjeUKETISCLBL9081-61-95 07:48:00 38.1[facility] MfnaknlHQYMMUIMKL0308-21-75 07:48:0012.3[facility] HermannHEMATOLOGY 2016-12-10 07:48:004.57[facility] EseumleXDNLVXNXZU6918-35-83 07:48:0014.1[facility] SywagabILUMOHUXDC2940-27-04 07:48:0032.2[facility] TrcfznbQTGAPDMKJM1716-12-74 07:48:009.2[facility] UeyopgtGWGGGFQPOH6011-80-68 07:48:00 Test Item Value Reference Range Interpretation Comments MCH (test code = MCH) 26.8 pg 27.0-31.0 [facility] YlpqqinBIBPTGSAPG2748-80-73 07:48:54515Yslevxhy HermannHEMATOLOGY 2016-12-10 07:48:00 Test Item Value Reference Range Interpretation Comments PTT (test code = PTT) 26.5 s 22.9-35.8 [facility] DrigxreWBCTBAGVHK8981-54-95 07:48:000.99[facility]annHEMATOLOGY 2016-12-10 07:48:00 Test Item Value Reference Range Interpretation Comments PT (test code = PT) 13.3 s 12.0-14.7 [facility] LgayrntJYHHAADKJA8046-22-34 07:48:000.7[facility]annHEMATOLOGY 2016-12-10 07:48:001.9[facility] UupfzcgCFMBRLJZWB5506-99-59 07:48:000.1[facility] GhndfqxVMLYHFGCJF0961-10-04 07:48:000.5[facility] VkbsgapDRXWAVGNHX4558-41-41 07:48:0068.0[facility] HxbfczuPFWVAXCEEW6788-13-88 07:48:004.7[facility] AZIISAXVAP4994-76-46 07:48:007.4[facility] XnstvaoRBFFTWAXMA4952-84-17 07:48:00 19.4[facility] NmmdxpvAAPCHNNWDG4426-20-84 07:48:006.8[facility] HermannHEMATOLOGY 2016-12-10 07:48:000.5[facility] HermannCARDIAC PNDVYLA0541-14-81 08:34:00<0.02 [facility]annCARDIAC ASEVAFS8772-81-55 08:34:001.9[facility]annCARDIAC QBWCCXK8817-90-36 08:34:0082[facility]annCARDIAC TVAIWBB4566-28-17 08:34:00 2.3[facility] HermannCHEM CSNDZ0519-29-76 08:34:0013.0[facility] HermannCHEM PANEL 2015-06-09 08:34:0065[facility] HermannCHEM JSWSG5470-39-69 08:34:0020[facility] HermannCHEM TOOUG9592-98-49 08:34:0013[facility]annCHEM SEJCS8679-62-70 08:34:000.6[facility] HermannCHEM ATTIV0465-97-77 08:34:0010.9[facility] HermannCHEM WBECN9112-49-58 08:34:0047[facility]annCHEM VBNPW1723-53-42 08:34:001.2 [facility]annCHEM XLICQ3494-54-42 08:34:003.4[facility] HermannCHEM PANEL 2015-06-09 08:34:0022[facility]annCHEM RKDPK5379-46-88 08:34:003.9[facility]annCHEM YGCTW8327-14-77 08:34:0028[facility]annCHEM VBWVK1254-02-72 08:34:18039Hxpcpxfw HermannCHEM ORTNI4741-20-13 08:34:009.1[facility] HermannCHEM LVMMM8620-27-57 08:34:007.4[facility]annCHEM ZICRF9790-60-76 08:34:004.0 [facility]annCHEM TPVOQ0741-36-19 08:34:55272Omiepvvg HermannCHEM PANEL 2015-06-09 08:34:0020[facility] HermannCHEM VUYLV8870-21-35 08:34:000.9[facility] HermannCHEM XIAVP9495-07-01 08:34:23063Vptlpmay HermannCHEM LERPE5070-91-11 08:34:001.8[facility] BupmcyzBBIBAOXFHO2425-81-41 08:34:00 Test Item Value Reference Range Interpretation Comments PTT (test code = PTT) 26.7 s 22.9-35.8 [facility] BabclseHREJLIMIPN9664-72-10 08:34:00 Test Item Value Reference Range Interpretation Comments PT (test code = PT) 12.8 s 12.0-14.7 [facility] VbrzoxxRFGONWWOKN2726-56-51 08:34:000.93[facility]annHEMATOLOGY 2015-06-09 08:34:07183Wpzwqgmt MxrtowtRAQUSPOHKS0636-55-46 08:34:009.5[facility] XholhjcYQZBMIYQNO2034-07-31 08:34:0014.8[facility] KgcvtxrPJSOWJJTJI0784-83-29 08:34:0032.5[facility] UleykywYVSRJLIFEH4948-34-81 08:34:005.21[facility] WHMWVETCBA0168-65-21 08:34:0013.7[facility] PcebgwpBZEEBQPZTL8323-21-65 08:34:00 10.6[facility] DrauxpuPZKIMFSXGS0153-67-94 08:34:0042.2[facility] HermannHEMATOLOGY 2015-06-09 08:34:0081.0[facility] BggvvzcIZZNOUWPWA6350-28-74 08:34:00 Test Item Value Reference Range Interpretation Comments MCH (test code = MCH) 26.3 pg 27.0-31.0 [facility] DjfmxytDEOWKBNHFA0651-99-14 08:34:000.1[facility] HermannHEMATOLOGY 2015-06-09 08:34:0065.9[facility] IikycelBHIVAMVTIM5767-58-63 08:34:0026.0[facility] WwitullCGSUJWZVIY4759-29-17 08:34:001.4[facility] DdgagnbCZXWTXGAWF7338-98-86 08:34:006.1[facility] HxqekvdWKZUWWTHXX0413-60-36 08:34:000.6[facility] KMBQPISZAX5947-64-03 08:34:000.2[facility] LoiurazWTVVDRJXSB5449-30-87 08:34:000.7 [facility] RuusdovMILQUEZWNN5538-59-91 08:34:002.8[facility] HermannHEMATOLOGY 2015-06-09 08:34:007.0[facility] VBVHL6071-93-31 04:51:001 [facility] EPDAD6102-53-56 04:51:001[facility] WKVDK3474-31-18 04:51:00Negative (04/05/15 11:51 PM)[facility] ICPBG6955-06-58 04:51:002[facility] NFFOZ5269-16-77 04:51:00 Negative *NA*(04/05/15 11:51 PM)[facility] QBULZ5234-56-20 04:51:006.0[facility] HUKRM0687-33-59 04:51:00Clear (04/05/15 11:51 PM)[facility] RJKQQ4037-61-36 04:51:001.006[facility]INE AND SWVFJ3180-67-96 04:51:00Light Yellow *NA*(04/05/15 11:51 PM)[facility] IUNUW5316-60-94 04:51:00Negative (04/05/15 11:51 PM)[facility] LLBQE2133-23-66 04:51:00Negative (04/05/15 11:51 PM)[facility] HermannCARDIAC IANQURK6561-46-36 02:44:001.8[facility] HermannCARDIAC ENZYMES 2015-04-06 02:44:41525Tunqwulg HermannCARDIAC GTWOAFC7704-64-52 02:44:000.02 [facility]annCARDIAC LDCTKHT9725-63-02 02:44:001.7[facility] HermannCHEM PANEL 2015-04-06 02:44:0058[facility] HermannCHEM AMXDN7000-86-54 02:44:000.3[facility] HermannCHEM GKGVZ3037-23-77 02:44:0058[facility]annCHEM QBKWQ1107-63-45 02:44:003.8[facility] HermannCHEM EXBRZ1502-60-74 02:44:0019[facility] HermannCHEM ZIDQZ4638-83-88 02:44:35124Dtbtecop HermannCHEM VYOEG1374-50-95 02:44:007.8 [facility]annCHEM CMJRA8215-78-90 02:44:0029[facility] HermannCHEM PANEL 2015-04-06 02:44:009.8[facility] HermannCHEM KKHLQ1475-47-73 02:44:004.7[facility] HermannCHEM YPADG3501-61-31 02:44:15519Irhwdttz HermannCHEM XKDCV9584-53-57 02:44:42678Hjbanivd HermannCHEM ZHWGG5949-19-89 02:44:0021[facility] HermannCHEM NTMCD3872-31-04 02:44:0016[facility]annCHEM ERGKC7562-74-71 02:44:001.0 [facility]annCHEM TMFSC1712-53-86 02:44:001.0[facility] HermannCHEM PANEL 2015-04-06 02:44:0016[facility] HermannCHEM RPZJS3364-12-94 02:44:004.0[facility] HermannCHEM OYFED1610-53-81 02:44:0011.7[facility] VmhehrgSDLLAXFHKV2431-08-09 02:44:000.0[facility] RcukwixSFYIYPNUMC0086-21-95 02:44:000.4[facility] YTRPWLWZJW1945-59-47 02:44:008.1[facility] FcscvnoEDGFHIXNJR8475-69-99 02:44:001.6 [facility] WjwbqxzRPBWSMUQGD5686-68-29 02:44:003.6[facility]annHEMATOLOGY 2015-04-06 02:44:000.4[facility] RneyshcLLGUFLVWEG9825-19-16 02:44:000.5[facility] DepontvWMOXSNGVOT5346-00-25 02:44:0015.3[facility] DbdelfmWEJZXGCVIA5844-04-04 02:44:0076.4[facility] BggzkshDKRPOLFJJP1721-55-33 02:44:004.3[facility] TPTXUTFVZD4389-80-42 02:44:0014.5[facility] SvioxjpDMGHUJYHWS2814-02-13 02:44:00 Test Item Value Reference Range Interpretation Comments MCH (test code = MCH) 26.4 pg 27.0-31.0 [facility] BkddwzfSQTFMLHRER6358-40-65 02:44:0031.7[facility]annHEMATOLOGY 2015-04-06 02:44:0083.4[facility] IfejahzAVCZVMRRXW0440-39-64 02:44:0045.6[facility] LetvghmBDHGWCFXDD6382-24-27 02:44:005.47[facility] YbjumbuJQKMPZDRYA5311-97-74 02:44:0010.6[facility] LololjkGMIOGVFZOG9961-02-95 02:44:0013.9[facility] SGXSSAYZRZ6833-18-53 02:44:009.3[facility] UjvynxsYUOLRDVRTE7305-42-84 02:44:15501 [facility] LypoiwdDZFJQJPJNQ4493-05-70 02:44:00<2[facility] HermannTOXICOLOGY 2015-04-06 02:44:002.1[facility] UdremzkRJJTKPWBYA3219-77-14 02:44:00<0.003 [facility] GrljyqjPHRMTXMYZB0632-32-86 02:44:00<3[facility] HermannCHEM PANEL 2014-04-16 20:50:001.5[facility] HermannCHEM GONPZ1555-29-03 20:50:003.5[facility] HermannCHEM SJEFC8879-59-52 20:50:0047[facility]annCHEM AXAPX1380-86-35 20:50:29619Qllszexj HermannCHEM IMFCR8189-84-80 20:50:68186Tfhatqjw HermannCHEM FOCQS4535-01-99 20:50:004.9[facility]annCHEM YVBGG0760-75-74 20:50:97198 [facility]annCHEM WUBMK7815-43-78 20:50:0025[facility]annCHEM PANEL 2014-04-16 20:50:0029[facility]annCHEM JKNBH6091-52-54 20:50:0010.9[facility]annCHEM OKSTZ1826-57-16 20:50:001.2[facility]annCHEM AGNGL1220-74-64 20:50:009.3[facility] BdmvllxEATKBVNMJC9913-12-76 20:50:009.6[facility] GHCCJTNZXY6658-43-32 20:50:009.7[facility] TlosdrqHYZHEDRIKJ8874-37-73 20:50:00 13.8[facility] DhxnvtuSWXKDCZZCY4026-44-66 20:50:0032.9[facility]annHEMATOLOGY 2014-04-16 20:50:004.95[facility] HijkmpyOHVQTSYLBF9218-77-81 20:50:0082.4[facility] DhqbtldEEDYEPFBRP9042-40-08 20:50:0013.4[facility] PybxzstVSCHDLMOYN3977-41-43 20:50:51563Cyxjotii IjvizudNSJRZCXTJP9230-14-16 20:50:0040.8[facility] XWBCCUAPUZ8654-66-98 20:50:00 Test Item Value Reference Range Interpretation Comments MCH (test code = MCH) 27.1 pg 27.0-31.0 [facility] PlqyzkhBDPTBROLDH9734-28-26 20:50:000.3[facility]annHEMATOLOGY 2014-04-16 20:50:000.0[facility] VdvbyctKJESINQMRK4859-26-18 20:50:000.0[facility] SnjyshoAIXOKGZFDD3870-26-19 20:50:008.7[facility] EpyjlzjSQRTQSNGFW0566-68-87 20:50:000.8[facility] BmflwypXKFMCFOSNC7164-54-34 20:50:000.0[facility] CHOPEQXWEF5388-00-72 20:50:000.2[facility] QvyeqpkCZDSUGNNSJ9828-82-24 20:50:002.7 [facility] CcmokycNOMGIFHUKA6445-05-60 20:50:008.1[facility]annHEMATOLOGY 2014-04-16 20:50:0089.0[facility] HermannCHEM ZOMRU5643-74-52 08:38:0052[facility] HermannCHEM XEOZK5113-44-05 08:38:0099[facility]annCHEM GSNYM2831-11-85 08:38:0029[facility]annCHEM ZUDDR9022-02-27 08:38:12894Bevakizo HermannCHEM SNMDZ9703-64-70 08:38:008.9[facility]annCHEM HVIZT3386-19-21 08:38:0027 [facility]annCHEM FIPON4958-29-68 08:38:57815Hjdvoxmg HermannCHEM PANEL 2014-04-14 08:38:001.1[facility]annCHEM NLJAU1029-39-82 08:38:004.7[facility]annCHEM MYEUK8182-36-53 08:38:006.5[facility]annCHEM TWYIK3165-11-95 08:38:002.6[facility]annCHEM DMQIP8154-78-48 08:38:0015[facility]annCHEM CMPQY1430-64-71 08:38:0010[facility]annCHEM ZGOGO7481-70-77 08:38:0041 [facility]annCHEM OPFSO2772-21-74 08:38:000.4[facility]annCHEM PANEL 2014-04-14 08:38:000.7[facility] HermannCHEM FRHSS3499-84-80 08:38:003.9[facility]annCHEM IBHUQ7344-87-20 08:38:0025[facility]annCHEM HIYMT8033-34-26 08:38:0011.7[facility]annCHEM FCEKB8647-89-90 08:38:001.8[facility]annCHEM KLHBO4057-34-15 08:38:002.4[facility] SvkxioeQPRLWGSAKR0082-63-41 08:38:0018.1 [facility] GsgviehQAHMQRVLFS0687-59-79 08:38:50731Mwhxnxmc HermannHEMATOLOGY 2014-04-14 08:38:0013.8[facility] WtfuezsFCITGGUCCV5713-57-93 08:38:0032.2[facility] PwogcbpBPDQWMIDVR1060-32-15 08:38:00 Test Item Value Reference Range Interpretation Comments MCH (test code = MCH) 26.8 pg 27.0-31.0 [facility] JiokctyVQYLATEMKJ8445-98-74 08:38:0037.1[facility]annHEMATOLOGY 2014-04-14 08:38:0083.2[facility] XgzwakuHTRKDMQNLR0264-83-69 08:38:004.47[facility] FevzjokKKYZOUREYC3757-18-65 08:38:0012.0[facility] LhxcvtzLFNUHPHGZE3627-87-30 08:38:009.0[facility] PidobgbCBTIYWORMG6693-40-35 08:38:000.0[facility] FCLFBIHGDZ1560-14-50 08:38:00Slight *ABN*(04/14/14 3:38 AM)[facility] TLHZVHJIQU0991-90-24 08:38:000.3[facility] AopdwjyHSPSKIYIGQ9839-68-15 08:38:000.0 [facility] AljzjtcYMABUDTRMM7726-17-10 08:38:0017.2[facility] HermannHEMATOLOGY 2014-04-14 08:38:000.6[facility] AzbpostKMSPFLBKKX2669-23-29 08:38:000.1[facility] NelhwveUOIODOVSVX2327-52-80 08:38:0094.6[facility] GblkartWCZILHRXZX5339-83-84 08:38:003.5[facility] JqcrodxVLPFDNLXBW2100-52-19 08:38:001.8[facility] RXZRVMLYDD5772-23-44 08:38:000.0[facility] ZlukhbjYSJUSYBVQE0186-93-23 08:38:00 Normal (04/14/14 3:38 AM)[facility] IaecckyWRWNEKOTNJ0428-15-47 08:38:00Normal (04/14/14 3:38 AM)[facility]annSPECIAL UDVXQHHMU1135-93-87 08:38:008.3[facility] HermannCHEM FYKFC8482-21-10 07:30:001.8[facility] HermannCHEM DSBBW4363-89-12 07:30:003.4[facility] HermannCHEM DBWBT8259-52-65 07:30:0066[facility]annCHEM RMBEF1636-50-89 07:30:0030[facility]annCHEM BYHHK7455-27-18 07:30:009.3 [facility] HermannCHEM OYFRF5646-90-33 07:30:21214Etkgsqdc HermannCHEM PANEL 2014-04-13 07:30:0011.1[facility] HermannCHEM MNGWX3695-98-51 07:30:004.1[facility] HermannCHEM EOTBD4477-17-23 07:30:0016[facility] HermannCHEM RQJWG4503-48-16 07:30:11727Bwkmnlpm HermannCHEM ZNXRA3624-19-68 07:30:69432Djtlkypo HermannCHEM KFDZB3049-84-03 07:30:000.9[facility] YkbygskJMKZBGIQCR8852-64-38 07:30:98505 [facility] TvpojenZJLCQBEFAV3285-10-05 07:30:0013.5[facility] HermannHEMATOLOGY 2014-04-13 07:30:009.7[facility] ArwzdmyMEUCSSCJVA8746-88-59 07:30:009.6[facility] GxqrvytYTBJOSAVBU8067-66-84 07:30:004.49[facility] PcxcsyvIFSQMFKIYE5502-55-35 07:30:0012.0[facility] QtabywcZOQMAXTUYV9212-01-56 07:30:0083.2[facility] MYDKLLQMUK9614-19-97 07:30:0037.4[facility] WyschvtGMKSPCLLFH9986-43-35 07:30:00 32.1[facility] UjmxxgmIWAZZSABRB8377-46-67 07:30:00 Test Item Value Reference Range Interpretation Comments MCH (test code = MCH) 26.7 pg 27.0-31.0 [facility] HacpkakPVWVVVNGWK3816-36-85 07:30:000.0[facility] HermannHEMATOLOGY 2014-04-13 07:30:008.9[facility] EvuhrlfLXHLGPMNKK2812-54-25 07:30:0092.8[facility] QivmfecLFTEYVLGHI3471-08-85 07:30:005.4[facility] IipbaccGVFUTVWHTO7666-28-11 07:30:000.0[facility] AnvfldnETTECBYLNL6856-54-91 07:30:001.8[facility] TQWGXHRWGA0683-63-07 07:30:000.5[facility] XmfkqysTWOGOPYYNT6648-44-98 07:30:000.2 [facility] EcrwqczZEBFDWTPPD8037-58-03 07:30:000.0[facility]annHEMATOLOGY 2014-04-13 07:30:000.0[facility] GrilshrSDLMO9315-89-64 00:20:08Negative (04/12/14 7:20 PM)[facility] HermannCARDIAC WXSVDXY6631-21-91 16:10:001.9[facility] CARDIAC YHZREGB5321-70-43 16:10:0024[facility] HermannCARDIAC NUIVNIQ7777-85-55 16:10:00<0.02[facility] HermannCARDIAC QXKFIJL4212-58-38 16:10:000.6[facility] HermannCARDIAC XYECUZY3310-48-85 16:10:0031[facility] HermannCHEM RVMMW3974-52-60 16:10:00<0.05[facility] HermannCHEM JJORS7121-66-05 16:10:000.9[facility] TYKOLFKBNL7558-51-37 16:10:001.02[facility] BfybfbqOLHJUZNNAT5163-71-75 16:10:00 Test Item Value Reference Range Interpretation Comments PT (test code = PT) 13.3 s 12.0-14.7 [facility] HWFWWJA0972-58-62 20:14:30949Kgaorenf Jas[facility] EELHBHAIYQ2131-88-17 18:51:00Few /LPF *NA*(06/22/2012 13:51:00)[facility] QAHGDCZHWW8269-27-66 18:51:00Few /LPF *NA*(06/22/2012 13:51:00)[facility] VACXZRSUCF2922-71-56 18:51:003[facility] PjiuyqiBHWKQVIUYM6448-90-02 18:51:001 [facility] DviarusCMZVMMFVIT5031-86-93 18:51:00Moderate *ABN*(06/22/2012 13:51:00) [facility] VqhhtfrKELXVXZLZV0758-48-92 18:51:00Negative (06/22/2012 13:51:00) [facility] QnxtowhZTGSLBSMLG8887-54-31 18:51:00Negative (06/22/2012 13:51:00) [facility] ShsqwpjNLGDJFAMMX0116-83-12 18:51:00Negative mg/dL *NA*(06/22/2012 13:51:00)[facility] YcwxlmiGOCAJQTHJG5975-26-51 18:51:00Negative *NA*(06/22/2012 13:51:00)[facility] EychaslTBZJUQIKVY2482-97-80 18:51:96753 mg/dL *ABN*(06/22/2012 13:51:00)[facility] UyvlilzUJRCTAOFTA0616-59-36 18:51:006.0[facility] UXWRVWIWIP5627-67-24 18:51:00Negative mg/dL (06/22/2012 13:51:00)[facility] YwrlsknJYASXOVKSY6710-84-91 18:51:001.008[facility] MhjslqgRDZORKJUWC2288-67-09 18:51:00Yellow *NA*(06/22/2012 13:51:00)[facility] YoiuhbaTVDONQGORO0174-35-85 18:51:00Clear (06/22/2012 13:51:00)[facility] MbaelkxBIAIQLZNF0950-31-12 18:28:00 52[facility] QwjwlsrTFQXEQHHY4994-43-24 18:28:0050[facility]annCHEMISTRY 2012-06-22 18:28:0025[facility] AmxgnzqEYPOGGNBF5392-04-02 18:28:009[facility] JntnejiQMVVBWOAG9396-08-68 18:28:0010.7[facility] PoenphwJJEKJKUCP0236-68-79 18:28:000.2[facility] IgrizrhQITSBFTTL8961-78-07 18:28:0013[facility] AMIPMWWGR2970-32-37 18:28:004.1[facility] BoozvwgEUISTRJER2588-02-60 18:28:000.9 [facility] HolpqheILMTBUXKZ2583-94-61 18:28:003.6[facility]annCHEMISTRY 2012-06-22 18:28:003.7[facility] YcypydfFUDJMBYVJ7736-97-53 18:28:67049Ohbvtjvl JuxmcsxINGAXBHUD8828-80-47 18:28:0014[facility] OjeiqidFARXGWBWA5733-57-43 18:28:61217Edxojhnk TunoadkUDAJYVSVN2667-80-26 18:28:001.1[facility] GIWCABMGZ8309-53-36 18:28:29586Eocfusex HwbfeeoDWMZFNXTQ5144-99-78 18:28:009.3 [facility] XgimuvcDALUOVFEA5957-87-56 18:28:0030[facility]annCHEMISTRY 2012-06-22 18:28:007.7[facility] HermannBEDSIDE GLUCOSE HMRACIX3395-04-05 16:05:00 160[facility]annBEDSIDE GLUCOSE CPCXZPI4961-16-69 12:08:05190Rfcbccnn [facility] IYLLZSZHXA3291-49-67 09:10:003.93[facility] ZhefhzjBHMYPVNJNO5945-16-71 09:10:00 32.7[facility] ZcnugnkGFBMVFHVDZ3646-99-58 09:10:007.3[facility]annHEMATOLOGY 2012-06-11 09:10:0083.2[facility] UiucvpnVEEGTWIQIF0102-61-25 09:10:00 Test Item Value Reference Range Interpretation Comments MCH (test code = MCH) 28.5 pg 27.0-31.0 N [facility] IsdyqavUUVLPWIUKW9584-43-52 09:10:0013.9[facility]annHEMATOLOGY 2012-06-11 09:10:0034.2[facility] LlfzlpoDUYSTJWEHH4037-97-38 09:10:008.5[facility] VqwolscWPRAVZJDIS7459-84-05 09:10:86765Pkqebyto OojytojIMSNDYKOZP1000-05-12 09:10:0011.2[facility] GxszqopGCQTZEXLMN6757-43-09 09:10:000.1[facility] PTWDGIPHSY5778-61-49 09:10:009.3[facility] CbybhfrMIJUQOARKF4847-64-49 09:10:003.6 [facility] XuimfuhZBKEZLWVAM0326-75-73 09:10:000.7[facility]annHEMATOLOGY 2012-06-11 09:10:000.5[facility] OjnkxpfKAGKUZVHRV2276-12-86 09:10:0049.3[facility] DmumyemHTRJXBNZEK1418-72-87 09:10:002.5[facility] XmczovkIGENRUPPPA8368-03-49 09:10:006.8[facility] NcqqfumKNAMIEXCFS9393-95-38 09:10:001.0[facility] XSESBSYMHV2957-60-99 09:10:0033.6[facility] HermannBEDSIDE GLUCOSE TESTING 2012-06-11 02:13:84439Gemfaspg TdevrswLVGRBVPXI1742-42-02 09:45:0062[facility] BidobzyJGZXSJGTR6448-02-83 09:45:0030[facility] GahxwenKQGDHCGKA3796-50-34 09:45:0054[facility] YotibhiWSJMFNRSX4475-75-37 09:45:004[facility]annCHEMISTRY 2012-06-10 09:45:0092.0[facility] QcrmswyQBZIWAZHY7478-71-98 09:45:007.36[facility] XirzubrUAKNUTCUZ1116-65-10 09:45:00N/A (06/10/2012 04:45:00)[facility] XHKUXLBDM4400-87-91 09:45:00A Line (06/10/2012 04:45:00)[facility] TBZDTULHY3124-16-12 09:45:0021.0[facility] GofwbjqOZTRHBSJK4650-99-25 09:45:008.1 [facility] YclrmrkUCSLMPIQY3078-42-26 09:45:63865Bwieropw HermannCHEMISTRY 2012-06-10 09:45:008.4[facility] PdghfpbEUIQUUPYD1749-30-60 09:45:0030[facility] YhgbaibKOMNDEZPQ3686-18-31 09:45:008[facility] XkefwpjNULXTJFFQ3610-76-45 09:45:00 0.7[facility] FdehjhjSXMIFHOZI8278-11-73 09:45:54189Oxqnwrah HermannCHEMISTRY 2012-06-10 09:45:004.1[facility] XiednklBBZMVEDRG0127-10-12 09:45:81096Umuiddoo DkbaqdzLPFBWCTGCB5215-81-48 09:45:00 Test Item Value Reference Range Interpretation Comments MCH (test code = MCH) 28.2 pg 27.0-31.0 N [facility] JyqajdmWANCOHHOLO8631-02-59 09:45:008.7[facility]annHEMATOLOGY 2012-06-10 09:45:0013.7[facility] DdbqhzdWENREVZZUI6163-32-59 09:45:0033.8[facility] QyyaqxhXWAQEDBCGV5197-71-97 09:45:13217Kodjjgfj NqyjcycYASUPODBZO9342-15-96 09:45:0083.6[facility] UyflzevPUESXSLBXI6533-90-15 09:45:0010.4[facility] DPSHOOIEFW5451-53-15 09:45:0030.9[facility] VwtijogAZJVXFPIPH9668-18-86 09:45:00 3.70[facility] AoysyrgNRXHZVEHQO4950-97-22 09:45:008.4[facility]annHEMATOLOGY 2012-06-10 09:45:000.5[facility] VoiaqloZYJZZUUZCV9702-26-09 09:45:000.1[facility] GixtrzxYTWJWAQJEV7228-86-83 09:45:004.6[facility] XchbojbYMHPWBKOOA4662-14-64 09:45:008.5[facility] IuchfhqICKDRNAOGX1245-70-88 09:45:006.1[facility] VWKIXNQFLL6624-46-00 09:45:000.7[facility] LcfwznpWADTVGASHL6570-40-55 09:45:000.7 [facility] FkylbsnABKDPHEPJC5233-14-33 09:45:002.5[facility]annHEMATOLOGY 2012-06-10 09:45:0054.6[facility] PadlfmeJEKEUJFQWS8668-46-02 09:45:0030.1[facility] YqbzhvqJMKIRTGEW2399-64-72 17:10:00-3[facility] YmplfckXXNZCJULG3512-42-67 17:10:0024[facility] RgcgwrfLWTJNHYKF0153-49-65 17:10:[address] [facility] NMKAJNFKA1301-50-14 17:10:0099.4[facility] YtvpxkyAMMKKNDSP8080-80-78 17:10:00A Line (06/09/2012 12:10:00)[facility] PqteavqCTRZGLWHY4388-77-45 17:10:00SM (06/09/2012 12:10:00)[facility] SktzixdEQHMOXMBN9765-49-88 17:10:007.0[facility] TyzfdxoFPTBFWGHL4426-17-35 17:10:00N/A (06/09/2012 12:10:00)[facility] LKNEBDEKZ6436-21-05 17:10:0046[facility] YjmaqicBMPAIDIAT6489-56-84 17:10:007.32 [facility]annBACTERIAL - DMFEYDKK8171-04-34 17:00:00Negative 1(06/09/2012 12:00:00)[facility] AyrrtfoEICUUJJXB1007-52-71 17:00:50906Ranjtasw [place] ANDEFAYLY4513-68-84 17:00:0011[facility] RjfpjulMCFPBHXEF3413-46-73 17:00:74115 [facility] XvymmoiTDACDUOXS9028-18-46 17:00:000.8[facility] HermannCHEMISTRY 2012-06-09 17:00:008.2[facility] HzovbwtCZOXFIMNL9571-19-16 17:00:09885Gwxypzvx JxheakgZDHIJGWXK8047-58-97 17:00:0029[facility] BgchkshZMNVKFEMV5769-69-64 17:00:003.8[facility] FoershhLMGFASPOQ5930-45-22 17:00:009.8[facility] EZGIAALREK5723-41-73 17:00:000.0[facility] DwcflpiJLBDVTMTDE1672-63-64 17:00:000.4 [facility] LykfbgfTXXNAKBCVZ3621-59-37 17:00:000.5[facility] HermannHEMATOLOGY 2012-06-09 17:00:003.2[facility] QafraraHVQYNLCIUR0700-79-47 17:00:003.7[facility] BsrkoppMSMTXTIEZW7309-63-28 17:00:000.5[facility] OfwhqrxENRUAADDRA2870-75-85 17:00:005.0[facility] MzqqobnMLHSRRDLFC6780-13-55 17:00:006.3[facility] Jasbir WCHEJBMCRS6839-71-22 17:00:0047.0[facility] YhvczaxJDQAUDXPFD1491-37-79 17:00:00 41.2[facility] WfvwrguGDLXMRVICJ2610-19-67 17:00:06429Onoimerm HermannHEMATOLOGY 2012-06-09 17:00:0013.9[facility] QdfeibcAYYPTFKVGT0615-69-39 17:00:0033.2[facility] DaxiscgHLZSNYEHXN8472-67-17 17:00:008.4[facility] DolfjdkQFGQULSQJE8662-57-43 17:00:00 Test Item Value Reference Range Interpretation Comments MCH (test code = MCH) 27.7 pg 27.0-31.0 N [facility] EbgnhpdZBRXAWZOME8576-16-39 17:00:007.8[facility] HermannHEMATOLOGY 2012-06-09 17:00:0083.6[facility] KaxzyotZRVHUPZRVF2966-63-32 17:00:0030.5[facility] JnjmkhkLGQEYOBKNA1409-68-89 17:00:0010.1[facility] GvrvsskGZBYTQHZRY2722-92-23 17:00:003.65[facility] HermannBLOOD BANK DHDAFXT9755-89-89 19:00:00Negative (05/31/2012 14:00:00)[facility] ZpcrlxpOWSPSZHRV0919-91-49 18:50:0014[facility] YwmpfoxTRHXGQLFS1595-00-73 18:50:0010.1[facility] PtpujeyYUWPXWECI1781-68-51 18:50:48508Crdqhqaw YouswusYMWISZTPE6702-08-32 18:50:0017[facility] Jasbir DCJCZMRLX5787-88-29 18:50:30757Zaomcrqa RtraxohTAFFNZHDN8125-22-89 18:50:004.1 [facility] WjiwsjrDQSLMEHBJ8481-80-33 18:50:000.9[facility] HermannCHEMISTRY 2012-05-31 18:50:55715Iltgvtjz OufpigxBRGMBZRNZ5435-91-79 18:50:009.1[facility] OdqjlhrUKGVOZEES8740-36-14 18:50:0029[facility] HepwvgjPVYLEBSQQU9883-18-01 18:50:00 Test Item Value Reference Range Interpretation Comments PTT (test code = PTT) 30.9 s 22.9-35.8 N [facility] TnvhuddHYYEDSFOBT4237-00-06 18:50:00 Test Item Value Reference Range Interpretation Comments PT (test code = PT) 13.0 s 12.0-14.7 [facility]emdfhUUDNZUHNRF5809-83-94 18:50:000.96[facility]
[2021-04-07] MEDS ORDERED: NA CHLORIDE 0.9% 1,000 ML ONE (10:18)
[2021-04-07] MEDS ORDERED: ONDANSETRON 4 MG/2 ML VIAL ONE (10:18)
--- NOTE | 2021-04-07 10:46 | RAD REPORT ---
EXAM DESCRIPTION: CTAbdomen Pelvis W Contrast - 04/07/2021 10:33 am CLINICAL HISTORY: Abdominal pain. ABD PAIN COMPARISON: Abdomen Pelvis Wo Contrast dated 03/18/2021 TECHNIQUE: Biphasic CT imaging of the abdomen and pelvis was performed with 100 ml non-ionic IV cont rast. All CT scans are performed using dose optimization technique as appropriate and may include automated exposure control or mA/KV adjustment according to patient size. FINDINGS: The lung bases are clear. No focal liver lesions are identified. The gallbladder is unremarkable. The adrenal glands are unrema rkable. The spleen is unremarkable. Several too small to characterize renal lesions which are statist ically benign. No hydronephrosis. The bladder is unremarkable. No adnexal masses. Moderate rectal sto ol burden which is decreased from prior. Trace ascites. Status post L2 through S1 fusion. The L2 screws extend into the L1-2 disc space. There is a compressi on deformity at L1 which was present on the prior exam as well. Atherosclerosis. IMPRESSION: No acute intra-abdominal or pelvic finding. Incidental findings as noted above.
[2021-04-07 10:48] LABS: Absolute Lymphocytes (CBC) 1.7 K/uL (0.7-4.9); Basophils % 0.9 % (0-1.3); Hematocrit 36.3 % (36.0-45.0); MPV 9.7 fL (7.6-11.3); RBC Red Blood Cell Count 4.39 M/uL (3.86-4.86)
[2021-04-07 10:57] LABS: ALT/SGPT 24 U/L (12-78); AST/SGOT 16 U/L (15-37); Albumin 3.5 g/dL (3.4-5.0); Alkaline Phosphatase 42 U/L (45-117); BUN Blood Urea Nitrogen 24 mg/dL (7-18); Bicarbonate 22 mmol/L (21-32); Bilirubin Direct < 0.1 mg/dL (0-0.2); Bilirubin Total 0.2 mg/dL (0.2-1.0); Glucose Level 92 mg/dL (74-106); Lipase 262 U/L (73-393); Potassium 4.9 mmol/L (3.5-5.1); Sodium Level 140 mmol/L (136-145)
--- NOTE | 2021-04-07 11:41 | ER ---
Nurse's Notes [facility] Name: Mariah Canales Age: 76 yrs Sex: Female : 1945 Arrival Date: 04/07/2021 Time: 08:51 Bed 18 Private MD: Diagnosis: Nausea with vomiting, unspecified;Diarrhea, unspecified Presentation: 04/07 08:52 Chief complaint: EMS states: pt has had n/v/d since Thursday, can't keep her BP and iw diabetes meds down, BS=86 now , pt denies fever, reports mild abd pain. Coronavirus screen: At this time, the client does not indicate any symptoms associated with coronavirus-19. Ebola Screen: Patient negative for fever greater than or equal to 101.5 degrees Fahrenheit, and additional compatible Ebola Virus Disease symptoms Patient denies exposure to infectious person. Patient denies travel to an Ebola-affected area in the 21 days before illness onset. No symptoms or risks identified at this time. Initial Sepsis Screen: Does the patient meet any 2 criteria? No. Patient's initial sepsis screen is negative. Does the patient have a suspected source of infection? No. Patient's initial sepsis screen is negative. Risk Assessment: Do you want to hurt yourself or someone else? Patient reports no desire to harm self or others. Onset of symptoms was April 05, 2021. 08:52 Method Of Arrival: EMS: [facility] 08:52 Acuity: AASHISH 3 iw Triage Assessment: 09:00 General: Appears distressed, uncomfortable, Behavior is cooperative, appropriate for bp age, anxious. Pain: Complains of pain in abdomen. EENT: No deficits noted. Neuro: No deficits noted. Cardiovascular: No deficits noted. Respiratory: No deficits noted. GI: Reports nausea, vomiting. : No signs and/or symptoms were reported regarding the genitourinary system. Derm: No deficits noted. Musculoskeletal: No deficits noted. Historical: - Allergies: :32 No Known Allergies; iw - PMHx: :32 Depression; diabetes mellitus; Hypertensive disorder; CVA; iw - PSHx: :32 Carotid endarterectomy; iw - Immunization history:: Client reports receiving the 2nd dose of the Covid vaccine. - Social history:: Smoking status: Patient reports the use of cigarette tobacco products, smokes one pack cigarettes per day. Screenin:14 Abuse screen: Denies threats or abuse. Denies injuries from another. Nutritional bp screening: No deficits noted. Tuberculosis screening: No symptoms or risk factors identified. Fall Risk None identified. Assessment: 09:00 General: SEE TRIAGE NOTE. bp 10:45 Reassessment: PT RETURNED FROM CT. bp 11:00 Reassessment: No changes from previously documented assessment. Patient and/or family bp updated on plan of care and expected duration. Pain level reassessed. GI: Abdomen is non-distended. 12:00 Reassessment: D/C ON HOLD PENDING TRANSPORT ARRANGEMENT. bp 14:02 Reassessment: PT TAXI HOME. bp Vital Signs: 09:31 BP 102 / 57; Pulse 98; Resp 16; Temp 97.6; Pulse Ox 95% on R/A; Weight 45.36 kg (R); iw 10:59 BP 132 / 110; Pulse 90; Resp 16; Pulse Ox 99% ; bp 11:55 BP 128 / 52; Pulse 91; Resp 16; Pulse Ox 97% ; bp 14:00 BP 133 / 41; Pulse 88; Resp 17; Pulse Ox 97% ; bp ED Course: 08:51 Patient arrived in ED. iw 08:53 Triage completed. iw 09:32 Arm band placed on. iw 09:33 Kiarra Luong FNP-C [facility]. kb 09:33 Toya Bowen MD is Attending Physician. kb 09:35 Jordan Yusuf, LAKESHA is Primary Nurse. bp 10:14 Patient has correct armband on for positive identification. Bed in low position. Call bp light in reach. Side rails up X2. 10:14 Inserted saline lock: 20 gauge in right forearm, using aseptic technique. Blood bp collected. 10:33 CT Abd/Pelvis - IV Contrast Only In Process Unspecified. EDMS 14:00 No provider procedures requiring assistance completed. IV discontinued, intact, bp bleeding controlled, No redness/swelling at site. Pressure dressing applied. Administered Medications: 10:13 Drug: Zofran (Ondansetron) 4 mg Route: IVP; Site: right forearm; bp 12:22 Follow up: Response: No adverse reaction bp 10:13 Drug: NS 0.9% 1000 ml Route: IV; Rate: 1000 ml; Site: right forearm; bp 12:22 Follow up: IV Status: Completed infusion; IV Intake: 1000ml bp Intake: 12:22 IV: 1000ml; Total: 1000ml. bp Outcome: 11:41 Discharge ordered by . kb 14:00 Discharged to home via wheelchair. bp 14:00 Condition: stable 14:00 Discharge instructions given to patient, Instructed on discharge instructions, follow up and referral plans. medication usage, Demonstrated understanding of instructions, follow-up care, medications, Prescriptions given X 2. 14:07 Discharged to home via wheelchair. iw 14:08 Patient left the ED. bp Signatures: Dispatcher [employer] EDMS Kiarra Luong, CUT AND PRINT MACHINE OPERATOR-C CUT AND PRINT MACHINE OPERATOR-Teetee Dillon RN RN Jordan Pastor RN RN bp Corrections: (The following items were deleted from the chart) 09:32 08:52 Chief complaint: EMS states: pt has had n/v since Thursday, can't keep her BP and iw diabetes meds down, BS=86 now iw
--- NOTE | 2021-04-07 11:42 | EDPHYS ---
Physician Documentation [facility] Name: Mariah Canales Age: 76 yrs Sex: Female : 1945 Arrival Date: 04/07/2021 Time: 08:51 Bed 18 Private MD: ED Physician Toya Bowen HPI: 04/07 12:04 This 76 yrs old Female presents to ER via EMS with complaints of kb Nausea/Vomiting, Diarrhea. 09:49 Patient reports nausea vomiting diarrhea since Thursday. Denies fever. Slight abdominal kb pain in the left lower quadrant.. 12:04 The patient presents to the emergency department with nausea, vomiting, diarrhea. kb Onset: The symptoms/episode began/occurred 3 day(s) ago. Possible causes: unknown. The symptoms are aggravated by nothing. The symptoms are alleviated by nothing. Associated signs and symptoms: Pertinent positives: abdominal pain, diarrhea, nausea, vomiting, Pertinent negatives: fever. Severity of symptoms: At their worst the symptoms were moderate in the emergency department the symptoms are unchanged. The patient has not experienced similar symptoms in the past. The patient has not recently seen a physician. Historical: - Allergies: 09:32 No Known Allergies; iw - PMHx: 09:32 Depression; diabetes mellitus; Hypertensive disorder; CVA; iw - PSHx: 09:32 Carotid endarterectomy; iw - Immunization history:: Client reports receiving the 2nd dose of the Covid vaccine. - Social history:: Smoking status: Patient reports the use of cigarette tobacco products, smokes one pack cigarettes per day. ROS: 12:03 Constitutional: Negative for fever, chills, and weight loss. kb 12:03 Abdomen/GI: Positive for nausea, vomiting, and diarrhea, Negative for abdominal pain. 12:03 All other systems are negative. Exam: 12:03 Constitutional: This is a well developed, well nourished patient who is awake, alert, kb and in no acute distress. Head/Face: Normocephalic, atraumatic. ENT: Moist Mucous membranes Cardiovascular: Regular rate and rhythm with a normal S1 and S2. No gallops, murmurs, or rubs. No pulse deficits. Respiratory: Respirations even and unlabored. No increased work of breathing, no retractions or nasal flaring. Back: No spinal tenderness. No costovertebral tenderness. Full range of motion. Skin: Warm, dry with normal turgor. Normal color. MS/ Extremity: Pulses equal, no cyanosis. Neurovascular intact. Full, normal range of motion. Neuro: Awake and alert, GCS 15, oriented to person, place, time, and situation. Moves all extremities. Normal gait. Psych: Awake, alert, with orientation to person, place and time. Behavior, mood, and affect are within normal limits. 12:03 Abdomen/GI: Inspection: abdomen appears normal, Bowel sounds: normal, in all quadrants, Palpation: soft, in all quadrants, mild abdominal tenderness, in the left lower quadrant. Vital Signs: 09:31 BP 102 / 57; Pulse 98; Resp 16; Temp 97.6; Pulse Ox 95% on R/A; Weight 45.36 kg (R); iw 10:59 BP 132 / 110; Pulse 90; Resp 16; Pulse Ox 99% ; bp 11:55 BP 128 / 52; Pulse 91; Resp 16; Pulse Ox 97% ; bp 14:00 BP 133 / 41; Pulse 88; Resp 17; Pulse Ox 97% ; bp MDM: 09:33 Patient medically screened. kb 12:04 Data reviewed: vital signs, nurses notes. Data interpreted: Pulse oximetry: on room air kb is 97 %. Interpretation: normal. Counseling: I had a detailed discussion with the patient and/or guardian regarding: the historical points, exam findings, and any diagnostic results supporting the discharge/admit diagnosis, lab results, radiology results, the need for outpatient follow up, a family practitioner, to return to the emergency department if symptoms worsen or persist or if there are any questions or concerns that arise at home. ED course: Pt tolerating po intake. 04/07 09:34 Order name: Basic Metabolic Panel; Complete Time: 10:59 kb 04/07 09:34 Order name: CBC with Diff; Complete Time: 10:59 kb 04/07 09:34 Order name: Hepatic Function; Complete Time: 10:59 kb 04/07 09:34 Order name: Lipase; Complete Time: 10:59 kb 04/07 09:49 Order name: CT Abd/Pelvis - IV Contrast Only; Complete Time: 10:48 kb 04/07 09:34 Order name: IV Saline Lock; Complete Time: 10:13 kb 04/07 09:34 Order name: Labs collected and sent; Complete Time: 10:13 kb 04/07 11:00 Order name: PO challenge; Complete Time: 11:05 kb Administered Medications: 10:13 Drug: Zofran (Ondansetron) 4 mg Route: IVP; Site: right forearm; bp 12:22 Follow up: Response: No adverse reaction bp 10:13 Drug: NS 0.9% 1000 ml Route: IV; Rate: 1000 ml; Site: right forearm; bp 12:22 Follow up: IV Status: Completed infusion; IV Intake: 1000ml bp Disposition: 17:13 Co-signature as Attending Physician, Toya Bowen MD. ma2 Disposition Summary: 04/07/21 11:41 Discharge Ordered Location: Home kb Condition: Stable kb Diagnosis - Nausea with vomiting, unspecified kb - Diarrhea, unspecified kb Followup: kb - With: Emergency Department - When: As needed - Reason: Worsening of condition Followup: kb - With: Private Physician - When: 2 - 3 days - Reason: Recheck today's complaints, Continuance of care, Re-evaluation by your physician Discharge Instructions: - Discharge Summary Sheet kb - Food Choices to Help Relieve Diarrhea, Adult kb - Nausea and Vomiting, Adult, [id number] kb - Diarrhea, Adult, Bhri-pc-Qsvd kb Forms: - Medication Reconciliation Form kb - Thank You Letter kb - Antibiotic Education kb - Prescription Opioid Use kb Prescriptions: - Zofran 4 mg Oral Tablet - take 1 tablet by ORAL route every 6 hours As needed; 20 tablet; Refills: 0, kb Product Selection Permitted - dicyclomine 20 mg Oral Tablet - take 1 tablet by ORAL route 4 times per day As needed; 20 tablet; Refills: 0, kb Product Selection Permitted Signatures: Dispatcher [employer] Kiarra Nino, JANET RIBERA-Teetee Dillon, RN Jordan Judge RN RN bp Alzahri, Mohammad, MD MD ma2
[2021-04-09 17:32] VITALS: TEMP 97.6
[2021-04-09 17:35] VITALS: O2SAT 97
[2021-04-09 17:36] VITALS: BP 133/41
== END 2021-04-07 14:08 | disposition home or self-care (01) ==
LOC: ER 08:48
DX: R19.7 Diarrhea, unspecified (principal); I10 Essential (primary) hypertension; E11.9 Type 2 diabetes mellitus without complications; F17.210 Nicotine dependence, cigarettes, uncomplicated
CPT/HCPCS: 96361; 85025; 80048; 36415; 82565; 80076; 83690; 74177; 96374; 99284; Q9967; J7030; J2405

== ENCOUNTER 2021-06-05 10:08 | Emergency (ER) | payer OTHER ==
[2021-06-05 10:41] LABS: Absolute Lymphocytes (CBC) 1.7 K/uL (0.7-4.9); Basophils % 0.9 % (0-1.3); Hematocrit 41.4 % (36.0-45.0); Lymphocytes % 18.7 % (15.3-44.8); MPV 9.1 fL (7.6-11.3); RBC Red Blood Cell Count 4.89 M/uL (3.86-4.86)
[2021-06-05 10:52] LABS: Protime INR 0.91
[2021-06-05 11:00] LABS: ALT/SGPT 12 U/L (12-78); AST/SGOT 8 U/L (15-37); Albumin 4.2 g/dL (3.4-5.0); Alkaline Phosphatase 49 U/L (45-117); BUN Blood Urea Nitrogen 15 mg/dL (7-18); Bicarbonate 25 mmol/L (21-32); Bilirubin Direct < 0.1 mg/dL (0-0.2); Bilirubin Total 0.2 mg/dL (0.2-1.0); Glucose Level 137 mg/dL (74-106); Lipase 184 U/L (73-393); Potassium 4.2 mmol/L (3.5-5.1); Protein, Total 7.8 g/dL (6.4-8.2); Sodium Level 138 mmol/L (136-145)
[2021-06-05 11:14] LABS: Urine Blood 1+ (Negative); Urine Glucose Negative (Negative); Urine Protein Negative (Negative); Urine Specific Gravity 1.015 (1.005-1.030)
[2021-06-05] MEDS ORDERED: CEFTRIAXONE/SWI 1gm 1 GM/10 ML SYR ONE (11:20)
[2021-06-05] MEDS ORDERED: NA CHLORIDE 0.9% 1,000 ML ONE (11:20)
--- NOTE | 2021-06-05 12:03 | RAD REPORT ---
EXAM DESCRIPTION: CTAbdomen Pelvis W Contrast - 06/05/2021 11:45 am CLINICAL HISTORY: . ABD PAIN COMPARISON: Abdomen Pelvis W Contrast dated 04/07/2021 TECHNIQUE: Biphasic CT imaging of the abdomen and pelvis was performed with 100 ml non-ionic IV cont rast. All CT scans are performed using dose optimization technique as appropriate and may include automated exposure control or mA/KV adjustment according to patient size. FINDINGS: Lower chest: No acute abnormality. Liver: No acute abnormality or suspicious lesions. Biliary: No biliary ductal dilatation. Stomach: No significant focal abnormality. Duodenum: No significant focal abnormality. Pancreas: No significant abnormality. Spleen: No significant abnormality. Adrenal: No suspicious lesions. Kidney/ureter: No hydronephrosis. No renal calculi. Too small to characterize and/or benign appearing renal lesions are noted. Retroperitoneum: No retroperitoneal adenopathy. Vascular: No aneurysm. Atherosclerosis . Bowel: No significant focal abnormality. Peritoneum: No ascites or free air. Bladder: Grossly unremarkable. Reproductive: No adnexal masses. Bones: No acute fracture. L2 through S1 fusion. Remote deformity L1. The L2 screw extends into the L1 disc space which is chronic. Other: n/a IMPRESSION: No acute intra-abdominal or pelvic finding.
[2021-06-05] MEDS ORDERED: KETOROLAC 30 MG/ML INJ ONE (12:14)
--- NOTE | 2021-06-05 12:14 | ER ---
Nurse's Notes [facility] Name: Mariah Canales Age: 76 yrs Sex: Female : 1945 Arrival Date: 06/05/2021 Time: 10:15 Bed 26 Private MD: Diagnosis: Acute cystitis with hematuria Presentation: 06/05 10:15 Chief complaint: Patient states: pt arrived by EMS c/o lower abd pain tines 2 days. kh1 denies n/v/d . states wiping blood after urinating. Coronavirus screen: Vaccine status: Patient reports receiving the 2nd dose of the covid vaccine. had both shots in september. Ebola Screen: No symptoms or risks identified at this time. Initial Sepsis Screen: Does the patient have a suspected source of infection? No. Patient's initial sepsis screen is negative. Risk Assessment: Do you want to hurt yourself or someone else? Patient reports no desire to harm self or others. Onset of symptoms was June 04, 2021. 10:15 Method Of Arrival: EMS: [facility] 10:15 Acuity: AASHISH 3 [facility] 10:18 Initial Sepsis Screen: Does the patient meet any 2 criteria? No. Patient's initial [facility] sepsis screen is negative. Triage Assessment: 10:20 General: Appears in no apparent distress. comfortable, Behavior is calm, cooperative, kh1 appropriate for age. Pain: Complains of pain in lower abd pain Pain does not radiate. Pain currently is 8 out of 10 on a pain scale. Quality of pain is described as aching. Neuro: No deficits noted. Level of Consciousness is awake, alert, obeys commands, Oriented to person, place, time, situation, Welding Machine Setter are equal bilaterally Moves all extremities. Gait is unsteady, Speech is normal. Cardiovascular: No deficits noted. Reports. Respiratory: No deficits noted. Reports Airway is patent Respiratory effort is even, labored, Respiratory pattern is regular. GI: Reports lower abdominal pain, Patient currently denies diarrhea, nausea, vomiting. - Immunization history:: Adult Immunizations up to date, Client reports receiving the 2nd dose of the Covid vaccine. - Social history:: Smoking status: Patient denies any tobacco usage or history of. Patient/guardian denies using alcohol, IV drugs, tobacco products, The patient lives No barriers to communication noted, The patient attends The patient works. - Family history:: not pertinent. - Code Status:: Full code. - Hospitalizations: : No recent hospitalization is reported. Screenin:23 Abuse screen: Denies threats or abuse. Nutritional screening: No deficits noted. 1 Tuberculosis screening: No symptoms or risk factors identified. Fall Risk Gait- Weak (10 pts.). Assessment: 10:23 General: Appears in no apparent distress. comfortable, Behavior is calm, cooperative, [facility] appropriate for age. Vital Signs: 10:15 BP 160 / 77; Pulse 87; Resp 16; Temp 97.8; Pulse Ox 95% on R/A; Weight 45.36 kg; Height 1 5 ft. (152.40 cm); Pain 8/10; 10:15 Body Mass Index 19.53 (45.36 kg, 152.40 cm) [facility] ED Course: 10:15 Patient arrived in ED. 1 10:15 Jocelyne Domingo is Primary Nurse. 1 10:16 Toya Bowen MD is Attending Physician. ca2 10:18 Triage completed. 1 10:22 Arm band placed on right wrist. kh1 10:24 Patient has correct armband on for positive identification. Bed in low position. Call [facility] light in reach. Side rails up X2. 10:24 No provider procedures requiring assistance completed. kh1 10:24 Patient maintains SpO2 saturation greater than 95% on room air. kh1 11:45 CT Abd/Pelvis - IV Contrast Only In Process Unspecified. EDMS Administered Medications: 11:01 Drug: Rocephin (cefTRIAXone) 1 grams Route: IV; Rate: calculated rate; Site: right [facility] antecubital; 11:02 Drug: NS 0.9% 1000 ml Route: IV; Rate: 1 bolus; Site: right antecubital; [facility] 11:55 Drug: Ketorolac 30 mg Route: IVP; Site: right antecubital; [facility] Outcome: 12:13 Discharge ordered by . cal 14:57 Patient left the ED. aj2 Signatures: Dispatcher [employer] EDMS Toya Bowen MD MD ma2 Harris, Kecia [facility] Joanna Pleitez2 Corrections: (The following items were deleted from the chart) 10:20 10:19 PMHx: diabetes mellitus; [facility] PMHx: Hypertensive disorder; kh1 kh1 PMHx: Depression; kh1 kh1 PMHx: CVA; kh1 kh1 PSHx: Carotid endarterectomy; kh1 kh1
--- NOTE | 2021-06-05 12:14 | EDPHYS ---
Physician Documentation [facility] Name: Mariah Canales Age: 76 yrs Sex: Female : 1945 Arrival Date: 06/05/2021 Time: 10:15 Bed 26 Private MD: ED Physician Toya Bowen HPI: 06/05 10:55 This 76 yrs old Female presents to ER via EMS with complaints of lower ma2 abdominal pain. 10:55 The patient presents with abdominal pain. Onset: The symptoms/episode began/occurred ma2 gradually, 1 day(s) ago. Associated signs and symptoms: Pertinent negatives: anorexia, constipation, fever, hematuria. Severity of pain: At its worst the pain was moderate in the emergency department the pain is unchanged. The patient has experienced similar episodes in the past. - Immunization history:: Adult Immunizations up to date, Client reports receiving the 2nd dose of the Covid vaccine. - Social history:: Smoking status: Patient denies any tobacco usage or history of. Patient/guardian denies using alcohol, IV drugs, tobacco products, The patient lives No barriers to communication noted, The patient attends The patient works. - Family history:: not pertinent. - Code Status:: Full code. - Hospitalizations: : No recent hospitalization is reported. ROS: 10:55 Constitutional: Negative for fever, chills, and weight loss. ma2 10:55 All other systems are negative. Exam: 10:55 Constitutional: This is a well developed, well nourished patient who is awake, alert, ma2 and in no acute distress. Head/Face: Normocephalic, atraumatic. Eyes: Pupils equal round and reactive to light, extra-ocular motions intact. Lids and lashes normal. Conjunctiva and sclera are non-icteric and not injected. Cornea within normal limits. Periorbital areas with no swelling, redness, or edema. ENT: Nares patent. No nasal discharge, no septal abnormalities noted. Tympanic membranes are normal and external auditory canals are clear. Oropharynx with no redness, swelling, or masses, exudates, or evidence of obstruction, uvula midline. Mucous membranes moist. Neck: Trachea midline, no thyromegaly or masses palpated, and no cervical lymphadenopathy. Supple, full range of motion without nuchal rigidity, or vertebral point tenderness. No Meningismus. Chest/axilla: Normal chest wall appearance and motion. Nontender with no deformity. No lesions are appreciated. Cardiovascular: Regular rate and rhythm with a normal S1 and S2. No gallops, murmurs, or rubs. Normal PMI, no JVD. No pulse deficits. Respiratory: Lungs have equal breath sounds bilaterally, clear to auscultation and percussion. No rales, rhonchi or wheezes noted. No increased work of breathing, no retractions or nasal flaring. Abdomen/GI: Soft, non-tender, with normal bowel sounds. No distension or tympany. No guarding or rebound. No evidence of tenderness throughout. Back: No spinal tenderness. No costovertebral tenderness. Full range of motion. Skin: Warm, dry with normal turgor. Normal color with no rashes, no lesions, and no evidence of cellulitis. MS/ Extremity: Pulses equal, no cyanosis. Neurovascular intact. Full, normal range of motion. Neuro: Awake and alert, GCS 15, oriented to person, place, time, and situation. Cranial nerves II-XII grossly intact. Motor strength 5/5 in all extremities. Sensory grossly intact. Cerebellar exam normal. Normal gait. Vital Signs: 10:15 BP 160 / 77; Pulse 87; Resp 16; Temp 97.8; Pulse Ox 95% on R/A; Weight 45.36 kg; Height kh1 5 ft. (152.40 cm); Pain 8/10; 10:15 Body Mass Index 19.53 (45.36 kg, 152.40 cm) formerly [facility] MDM: 10:16 Patient medically screened. sc2 10:55 Differential diagnosis: gastritis, gastroesophageal reflux disease, pancreatitis, ma2 Pyelonephritis, urinary tract infection. 12:13 Data reviewed: vital signs, nurses notes. Counseling: I had a detailed discussion with ma2 the patient and/or guardian regarding: the historical points, exam findings, and any diagnostic results supporting the discharge/admit diagnosis, the presence of at least one elevated blood pressure reading (>120/80) during this emergency department visit, the need for outpatient follow up. Response to treatment: the patient's symptoms have markedly improved after treatment. 06/05 10:20 Order name: Basic Metabolic Panel; Complete Time: 11:12 [facility] 06/05 10:20 Order name: CBC with Diff; Complete Time: 11:12 [facility] 06/05 10:20 Order name: Hepatic Function; Complete Time: 11:12 [facility] 06/05 10:20 Order name: Lipase; Complete Time: 11: [facility] 06/05 10:26 Order name: PT-INR; Complete Time: 11:12 [facility] 06/05 11:14 Order name: Urine Dipstick-Ancillary; Complete Time: 11:25 EDMT 06/05 10:20 Order name: IV Saline Lock; Complete Time: 11: [facility] 06/05 10:20 Order name: Labs collected and sent; Complete Time: 11: [facility] 06/05 10:20 Order name: Urine Dipstick-Ancillary (obtain specimen); Complete Time: 11: [facility] 06/05 10:26 Order name: CT Abd/Pelvis - IV Contrast Only; Complete Time: 12:15 [facility] Administered Medications: 11:01 Drug: Rocephin (cefTRIAXone) 1 grams Route: IV; Rate: calculated rate; Site: right [facility] antecubital; 11:02 Drug: NS 0.9% 1000 ml Route: IV; Rate: 1 bolus; Site: right antecubital; formerly [facility] 11:55 Drug: Ketorolac 30 mg Route: IVP; Site: right antecubital; formerly [facility] Disposition Summary: 06/05/21 12:13 Discharge Ordered Location: Home ma2 Condition: Stable ma2 Diagnosis - Acute cystitis with hematuria ma2 Followup: ma2 - With: Private Physician - When: Tomorrow - Reason: If symptoms return, Continuance of care Discharge Instructions: - Discharge Summary Sheet ma2 - Urinary Tract Infection, Adult ma2 Forms: - Medication Reconciliation Form ma2 - Thank You Letter ma2 - Antibiotic Education ma2 - Prescription Opioid Use ma2 Prescriptions: - Cipro 500 mg Oral Tablet - take 1 tablet by ORAL route every 12 hours for 7 days; 14 tablet; Refills: 0, ma2 Product Selection Permitted - Diclofenac Sodium 75 mg Oral Tablet Sustained Release - take 1 tablet by ORAL route 2 times per day; 30 tablet; Refills: 0, Product ma2 Selection Permitted Signatures: Dispatcher [employer] EDMT Toya Bowen MD MD sc2 Jocelyne Domingo [facility] Corrections: (The following items were deleted from the chart) 10:20 10:19 PMHx: diabetes mellitus; kh1 kh1 PMHx: Hypertensive disorder; kh1 kh1 PMHx: Depression; kh1 kh1 PMHx: CVA; kh1 kh1 PSHx: Carotid endarterectomy; kh1 kh1
[2021-06-05 15:47] VITALS: BP 160/77; TEMP 97.8; O2SAT 95
== END 2021-06-05 14:57 | disposition home or self-care (01) ==
LOC: ER 10:08
DX: N30.01 Acute cystitis with hematuria (principal)
CPT/HCPCS: 85025; 80048; 36415; 85610; 80076; 81003; 83690; 74177; 96375; 96374; 99284; Q9967; J0696; J7030

== ENCOUNTER 2021-06-18 20:47 | Emergency (ER) | payer OTHER ==
[2021-06-18 22:48] LABS: Urine Blood Negative (Negative); Urine Glucose Negative (Negative); Urine Protein Trace (Negative); Urine Specific Gravity 1.025 (1.005-1.030)
[2021-06-18 23:51] LABS: Absolute Lymphocytes (CBC) 2.4 K/uL (0.7-4.9); Basophils % 0.8 % (0-1.3); Hematocrit 35.5 % (36.0-45.0); Lymphocytes % 24.7 % (15.3-44.8); MPV 8.8 fL (7.6-11.3); RBC Red Blood Cell Count 4.32 M/uL (3.86-4.86)
[2021-06-19 00:07] LABS: ALT/SGPT 14 U/L (12-78); AST/SGOT 10 U/L (15-37); Albumin 3.5 g/dL (3.4-5.0); Alkaline Phosphatase 39 U/L (45-117); BUN Blood Urea Nitrogen 33 mg/dL (7-18); Bicarbonate 26 mmol/L (21-32); Bilirubin Direct < 0.1 mg/dL (0-0.2); Bilirubin Total 0.2 mg/dL (0.2-1.0); Glucose Level 111 mg/dL (74-106); Lipase 138 U/L (73-393); Potassium 3.7 mmol/L (3.5-5.1); Sodium Level 142 mmol/L (136-145)
[2021-06-19] MEDS ORDERED: MORPHINE 4 MG/ML SYR ONE (00:26)
[2021-06-19] MEDS ORDERED: ONDANSETRON 4 MG/2 ML VIAL ONE (00:27)
[2021-06-19 00:35] LABS: Urine Bacteria <20 /HPF (<20); Urine RBC <5 /HPF (NONE SEEN); Urine Urothelial Cells <5 /HPF (NONE SEEN)
[2021-06-19] MEDS ORDERED: NA CHLORIDE 0.9% 500 ML ONE (01:25)
--- NOTE | 2021-06-19 02:39 | EDPHYS ---
Physician Documentation [facility] Name: Mariah Canales Age: 76 yrs Sex: Female : 1945 Arrival Date: 06/18/2021 Time: 20:49 Bed 17 Private MD: ED Physician Toya Bowen HPI: 06/18 21:49 This 76 yrs old Female presents to ER via Wheelchair with complaints of pm1 Abdominal Pain. 21:49 The patient presents with abdominal pain Suprapubic area. Onset: The symptoms/episode pm1 began/occurred 3 day(s) ago. The symptoms do not radiate. Associated signs and symptoms: Pertinent positives: Difficulty urinating, Pertinent negatives: chest pain, shortness of breath. The symptoms are described as crampy. Modifying factors: The symptoms are alleviated by nothing, the symptoms are aggravated by nothing. Severity of pain: in the emergency department the pain is unchanged. The patient has not experienced similar symptoms in the past. The patient has been recently seen at the [facility] Emergency Department, last week, for similar complaints Diagnosed with a urinary tract infection and discharged home with antibiotic. Patient presents to the ER with complaints of suprapubic abdominal pain and urination of small quantities. Historical: - Allergies: 21:20 No Known Allergies; df1 - PMHx: 21:20 kidney failure; Diabetes mellitus; Hypertensive disorder; stroke in 2014; Chronic df1 obstructive lung disease; - PSHx: 21:20 caroditectomy x 2 left; df1 - Immunization history:: Adult Immunizations up to date, Client reports receiving the 2nd dose of the Covid vaccine. - Social history:: Smoking status: Patient reports the use of cigarette tobacco products, smokes one-half pack cigarettes per day, Patient/guardian denies using alcohol. ROS: 21:49 Constitutional: Negative for fever, chills, and weight loss. Patient reports she drinks pm1 1 bottle of water per day Cardiovascular: Negative for chest pain, palpitations, and edema, Respiratory: Negative for shortness of breath, cough, wheezing, and pleuritic chest pain, Back: Negative for injury and pain, MS/Extremity: Negative for injury and deformity, Skin: Negative for injury, rash, and discoloration. 21:49 Abdomen/GI: Positive for abdominal pain, of the suprapubic area, Negative for nausea, vomiting, and diarrhea. 21:49 All other systems are negative. Exam: 21:49 Constitutional: This is a well developed, well nourished patient who is awake, alert, pm1 and in no acute distress. Head/Face: Normocephalic, atraumatic. 21:49 Back: No spinal tenderness. No costovertebral tenderness. Full range of motion. Skin: Warm, dry with normal turgor. Normal color with no rashes, no lesions, and no evidence of cellulitis. MS/ Extremity: Pulses equal, no cyanosis. Neurovascular intact. Full, normal range of motion. 21:49 Eyes: Exam is negative for acute changes, Extraocular movements: no acute changes, Conjunctiva: no acute changes, no injection. 21:49 ENT: Exam is negative for acute changes, Mouth: no acute changes, Lips: normal, moist, Oral mucosa: normal, pink and intact, moist. 21:49 Cardiovascular: Exam negative for acute changes, Rate: normal, Rhythm: regular, Pulses: no pulse deficits are appreciated. 21:49 Respiratory: Exam negative for acute changes, respiratory distress, shortness of breath. 21:49 Abdomen/GI: Inspection: abdomen appears normal, Palpation: abdomen is soft and non-tender, in all quadrants. 21:49 Neuro: Exam negative for acute changes, Orientation: is normal, Mentation: is normal, Motor: is normal, moves all fours. Vital Signs: 21:17 BP 167 / 87; Pulse 86; Resp 18; Temp 98.7; Pulse Ox 95% on R/A; Weight 45.36 kg; Height df1 5 ft. 0 in. (152.40 cm); Pain 7/10; 23:10 BP 184 / 79; Pulse 86; Resp 17; Pulse Ox 98% ; Pain 0/10; dc2 1006 00:00 BP 177 / 96; Pulse 77; Resp 17; Pulse Ox 96% ; Pain 6/10; kc4 01:22 BP 187 / 79; Pulse 80; Resp 18; Temp 98.0; Pulse Ox 100% on R/A; kc4 02:05 BP 160 / 78; kc4 04:42 BP 150 / 67; Pulse 78; Resp 18; Temp 98.7(A); Pulse Ox 99% on R/A; Pain 0/10; kc4 06:10 BP 152 / 72; Pulse 70; Resp 18; Temp 98.7; Pulse Ox 100% on R/A; Pain 0/10; kc4 06/18 21:17 Body Mass Index 19.53 (45.36 kg, 152.40 cm) df1 MDM: 06/18 21:58 Patient medically screened. pm1 06/19 01:34 Data reviewed: vital signs. Data interpreted: Pulse oximetry: on room air is 100 %. pm1 Interpretation: normal. 02:37 Counseling: I had a detailed discussion with the patient and/or guardian regarding: the pm1 historical points, exam findings, and any diagnostic results supporting the discharge/admit diagnosis, lab results, the need for outpatient follow up, to return to the emergency department if symptoms worsen or persist or if there are any questions or concerns that arise at home. 06/18 21:34 Order name: Basic Metabolic Panel; Complete Time: 00:28 ma2 06/18 21:34 Order name: CBC with Diff; Complete Time: 00:28 ma2 06/18 21:34 Order name: Hepatic Function; Complete Time: 00:28 ma2 06/18 21:34 Order name: Lipase; Complete Time: 00:28 ma2 06/18 22:03 Order name: Urine Microscopic Only; Complete Time: 00:54 pm1 06/18 22:03 Order name: Urine Culture 1 06/18 22:03 Order name: Blood Culture Adult (2) pm1 06/18 22:20 Order name: Procalcitonin pm1 06/18 22:20 Order name: Lactate pm1 06/18 22:20 Order name: Procalcitonin; Complete Time: 00:54 EDMS 06/18 22:20 Order name: Lactate; Complete Time: 00:28 EDMS 06/18 22:43 Order name: SARS-COV-2 RT PCR; Complete Time: 00:54 EDMS 06/18 22:48 Order name: Urine Dipstick-Ancillary; Complete Time: 23:11 EDMS 06/18 21:34 Order name: IV Saline Lock; Complete Time: 22:18 ma2 06/18 21:34 Order name: Labs collected and sent; Complete Time: 22:18 ma2 06/18 21:34 Order name: Urine Dipstick-Ancillary (obtain specimen); Complete Time: 04:56 ma2 06/18 22:19 Order name: Bladder Scanner; Complete Time: 22:50 pm1 06/18 22:19 Order name: Straight Cath - Urine; Complete Time: 22:50 pm1 06/18 23:05 Order name: Labs - recollect needed; Complete Time: 00:00 em 06/18 23:55 Order name: CT Abd/Pelvis - IV Contrast Only pm1 Administered Medications: 00:02 Drug: morphine 4 mg Route: IVP; Site: left antecubital; kc4 00:18 Follow up: Response: No adverse reaction kc4 01:21 Follow up: Response: No adverse reaction kc4 04:46 Follow up: Response: No adverse reaction kc4 00:02 Drug: Zofran (Ondansetron) 4 mg Route: IVP; Site: left antecubital; kc4 00:18 Follow up: Response: No adverse reaction kc4 01:21 Follow up: Response: No adverse reaction kc4 04:45 Follow up: Response: No adverse reaction kc4 04:46 Follow up: Response: No adverse reaction kc4 01:01 Drug: NS 0.9% 500 ml Route: IV; Rate: bolus; Site: left forearm; dc2 04:45 Follow up: IV Status: Completed infusion kc4 04:45 Follow up: Response: No adverse reaction kc4 02:49 Drug: Flagyl (metroNIDAZOLE) 500 mg Volume: 100 ml; Route: IVPB; Rate: 200 ml/hr; kc4 Infused Over: 30 mins; Site: left antecubital; 03:20 Follow up: IV Status: Completed infusion kc4 04:44 Follow up: IV Status: Completed infusion kc4 04:45 Follow up: Response: No adverse reaction kc4 03:07 Drug: Cipro (ciprofloxacin) 500 mg Route: PO; kc4 04:44 Follow up: Response: No adverse reaction kc4 Disposition: 06/20 03:01 Co-signature as Attending Physician, Toya Bowen MD PA/RETAIL PROPERTY MANAGER's history reviewed, ma2 patient interviewed, and examined. I agree with assessment and care plan and confirm the diagnosis (es) above. Disposition Summary: 06/19/21 02:38 Discharge Ordered Location: Home pm1 Problem: new pm1 Symptoms: have improved pm1 Condition: Stable pm1 Diagnosis - Dehydration pm1 - Abdominal pain, unspecified pm1 - Proctitis pm1 Followup: pm1 - With: Emergency Department - When: As needed - Reason: Worsening of condition Followup: pm1 - With: Private Physician - When: 2 - 3 days - Reason: Recheck today's complaints, Continuance of care, Re-evaluation by your physician Discharge Instructions: - Discharge Summary Sheet pm1 - Abdominal Pain, Adult pm1 - Dehydration, Elderly pm1 - Rehydration, Elderly pm1 - Proctitis pm1 Forms: - Medication Reconciliation Form pm1 - Thank You Letter pm1 - Antibiotic Education pm1 - Prescription Opioid Use pm1 Prescriptions: - Flagyl 500 mg Oral Tablet - take 1 tablet by ORAL route every 8 hours for 10 days; 30 tablet; Refills: 0, pm1 Product Selection Permitted - Cipro 500 mg Oral Tablet - take 1 tablet by ORAL route every 12 hours for 10 days; 20 tablet; Refills: 0, pm1 Product Selection Permitted - dicyclomine 20 mg Oral Tablet - take 1 tablet by ORAL route every 6 hours As needed; 20 tablet; Refills: 0, pm1 Product Selection Permitted Signatures: Dispatcher [employer] EDSteven Melo, RN RN Ramu Pitt, KALEB RETAIL PROPERTY MANAGER pm1 Toya Bowen MD MD ma2 Georgie Tavares4 María Mcdaniel df1 Betty Cyr RN RN dc2 Corrections: (The following items were deleted from the chart) 06/18 22:43 22:04 CORONAVIRUS+BRZ ordered. EDFL EDMS
--- NOTE | 2021-06-19 02:39 | ER ---
Nurse's Notes [facility] Name: Mariah Canales Age: 76 yrs Sex: Female : 1945 Arrival Date: 06/18/2021 Time: 20:49 Bed 17 Private MD: Diagnosis: Dehydration;Abdominal pain, unspecified;Proctitis Presentation: 06/18 21:17 Chief complaint: Patient states: Inability to urinate x 3 days. Coronavirus screen: df1 Vaccine status: Patient reports receiving the 2nd dose of the covid vaccine. Ebola Screen: Patient negative for fever greater than or equal to 101.5 degrees Fahrenheit, and additional compatible Ebola Virus Disease symptoms Patient denies exposure to infectious person. Patient denies travel to an Ebola-affected area in the 21 days before illness onset. Initial Sepsis Screen: Does the patient meet any 2 criteria? No. Patient's initial sepsis screen is negative. Risk Assessment: Do you want to hurt yourself or someone else? Patient reports no desire to harm self or others. Onset of symptoms was June 15, 2021. 21:17 Method Of Arrival: Wheelchair df1 21:17 Acuity: AASHISH 3 df1 21:22 Note Pt states inability to urinate x 3 days with lower pelvic pain 03/23. Denies df1 N/V/D/fever. Currently taking antibiotics for UTI. 06/19 03:09 Note pt was notified that she will be discharged, at this pt does not have a ride home. kc4 Pt states that her son is at work and he has her wheelchair. Wheelchair van was called. Pt states she has no way to get into her house when she gets there. Will continue to try and contact pts family. pt resting comfortably in bed at this time and states she rather stay here. Note \T\ around midnight Pt was caught vaping in her room by this RN. RN educated pt on being on a smoke free campus and vaping is not tolerated, especially inside the facilty. Pt stated she would put it away and not do it again. Another nurse at this time helped pt on the bedpan and caught pt vaping again. Pt was reeducated on the hospital being a smoke free facility. The vape was removed from her possession at this time. 06:17 Note Pt has had discharge orders since 0 after her IV antibiotic was completed. Pt kc4 still has no way of getting home until her son gets off a work at 0800. MD and Charge have been aware. Due to PTs inability to ambulate on own its the patients best interest to stay in room and rest til son can bring wheel chair and pick her up at 0800. 06:33 Initial Sepsis Screen: Does the patient have a suspected source of infection? No. kc4 Patient's initial sepsis screen is negative. Triage Assessment: 04:43 General: Appears in no apparent distress. Behavior is calm, cooperative, appropriate kc4 for age. 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 - Social history:: Smoking status: Patient reports the use of cigarette tobacco products, smokes one-half pack cigarettes per day, Patient/guardian denies using alcohol. Screenin:11 Abuse screen: Denies threats or abuse. Nutritional screening: No deficits noted. dc2 Difficulty chewing/swallowing? No. Tuberculosis screening: No symptoms or risk factors identified. Never had TB. Possible symptoms: None Risk factors: None. Fall Risk None identified. No fall in past 12 months (0 pts). Secondary diagnosis (15 points) IV access (20 points). Ambulatory Aid- None/Bed Rest/Nurse Assist (0 pts). Gait- Normal/Bed Rest/Wheelchair (0 pts) Total Carmona Fall Scale indicates No Risk (0-24 pts). Assessment: 22:11 Pain: Complains of pain in pelvis Pain does not radiate. Pain currently is 4 out of 10 dc2 on a pain scale. at worst was 8 out of 10 on a pain scale. level that patient reports is acceptable is 1 out of 10 on a pain scale. Quality of pain is described as aching, Pain began 2-3 days ago. Is intermittent, Alleviated by nothing. Aggravated by pressure or pressing on the lower abdomen Noted to be guarding, Also complains of inability to urinate. Neuro: No deficits noted. GI: Bowel sounds present X 4 quads. Abd is soft Abdomen is tender to palpation X 4 quads. in suprapubic area. : Bladder is distended bladder not distended Reports. 23:30 Reassessment: Repeat labs collected and sent to lab. dc2 23:57 Reassessment:. dc2 Vital Signs: 21:17 BP 167 / 87; Pulse 86; Resp 18; Temp 98.7; Pulse Ox 95% on R/A; Weight 45.36 kg; Height df1 5 ft. 0 in. (152.40 cm); Pain 7/10; 23:10 BP 184 / 79; Pulse 86; Resp 17; Pulse Ox 98% ; Pain 0/10; dc2 06/19 00:00 BP 177 / 96; Pulse 77; Resp 17; Pulse Ox 96% ; Pain 6/10; kc4 01:22 BP 187 / 79; Pulse 80; Resp 18; Temp 98.0; Pulse Ox 100% on R/A; kc4 02:05 BP 160 / 78; kc4 04:42 BP 150 / 67; Pulse 78; Resp 18; Temp 98.7(A); Pulse Ox 99% on R/A; Pain 0/10; kc4 06:10 BP 152 / 72; Pulse 70; Resp 18; Temp 98.7; Pulse Ox 100% on R/A; Pain 0/10; kc4 06/18 21:17 Body Mass Index 19.53 (45.36 kg, 152.40 cm) df1 ED Course: 06/18 20:49 Patient arrived in ED. wm 21:20 Triage completed. df1 21:58 Ramu Acuña NP is PHCP. pm1 21:58 Toya Bowen MD is Attending Physician. pm1 22:11 Betty Cyr RN is Primary Nurse. dc2 22:11 Bladder scan completed. 157ml. dc2 22:11 Patient has correct armband on for positive identification. Placed in gown. Bed in low dc2 position. Call light in reach. Side rails up X 1. 22:17 Inserted saline lock: 22 gauge in left wrist, using aseptic technique. Blood collected. bs2 22:18 Basic Metabolic Panel Sent. bs2 22:18 CBC with Diff Sent. bs2 22:18 Hepatic Function Sent. bs2 22:18 Lipase Sent. bs2 22:50 SARS-COV-2 RT PCR Sent. dc2 22:50 Lactate Sent. dc2 22:50 Procalcitonin Sent. dc2 22:50 Lactate Sent. dc2 22:50 Procalcitonin Sent. dc2 22:50 Blood Culture Adult (2) Sent. dc2 22:51 Urine Culture Sent. dc2 22:51 Urine Microscopic Only Sent. dc2 22:51 Basic Metabolic Panel Sent. dc2 22:51 CBC with Diff Sent. dc2 22:51 Hepatic Function Sent. dc2 22:51 Lipase Sent. dc2 10 00:00 Lactate Sent. dc2 00:00 Procalcitonin Sent. dc2 00:01 Basic Metabolic Panel Sent. dc2 00:01 CBC with Diff Sent. dc2 00:01 Hepatic Function Sent. dc2 00:01 Lipase Sent. dc2 00:46 CT Abd/Pelvis - IV Contrast Only In Process Unspecified. EDMS 01:22 Urine Culture Sent. kc4 04:43 No provider procedures requiring assistance completed. kc4 06:34 IV discontinued, intact, bleeding controlled, No redness/swelling at site. Pressure kc4 dressing applied. 06:34 Patient none. kc4 Administered Medications: 00:02 Drug: morphine 4 mg Route: IVP; Site: left antecubital; kc4 00:18 Follow up: Response: No adverse reaction kc4 01:21 Follow up: Response: No adverse reaction kc4 04:46 Follow up: Response: No adverse reaction kc4 00:02 Drug: Zofran (Ondansetron) 4 mg Route: IVP; Site: left antecubital; kc4 00:18 Follow up: Response: No adverse reaction kc4 01:21 Follow up: Response: No adverse reaction kc4 04:45 Follow up: Response: No adverse reaction kc4 04:46 Follow up: Response: No adverse reaction kc4 01:01 Drug: NS 0.9% 500 ml Route: IV; Rate: bolus; Site: left forearm; dc2 04:45 Follow up: IV Status: Completed infusion kc4 04:45 Follow up: Response: No adverse reaction kc4 02:49 Drug: Flagyl (metroNIDAZOLE) 500 mg Volume: 100 ml; Route: IVPB; Rate: 200 ml/hr; kc4 Infused Over: 30 mins; Site: left antecubital; 03:20 Follow up: IV Status: Completed infusion kc4 04:44 Follow up: IV Status: Completed infusion kc4 04:45 Follow up: Response: No adverse reaction kc4 03:07 Drug: Cipro (ciprofloxacin) 500 mg Route: PO; kc4 04:44 Follow up: Response: No adverse reaction kc4 Outcome: 02:38 Discharge ordered by pm1 06:33 Discharged to home via wheelchair. kc4 06:33 Condition: improved 06:33 Discharge instructions given to 06:35 Patient left the ED. kc4 Signatures: Dispatcher [employer] EDRamu Vera NP RESIDENTIAL REMODELING SUBCONTRACTOR pm1 Jannet Adkins Bridget RN RN bs2 Georgie Tavares kc4 María Mcdaniel df1 Betty Cyr RN RN dc2
[2021-06-19] MEDS ORDERED: NA CHLORIDE 0.9% 0 ML ONE (03:12)
[2021-06-19] MEDS ORDERED: METRONIDAZOLE 500mg IVPB 500 MG/100 ML BAG IV ONE (03:12)
[2021-06-19] MEDS ORDERED: CIPROFLOXACIN HCL 500 MG TAB ONE (03:27)
[2021-06-19 06:49] VITALS: TEMP 98.7
[2021-06-19 06:51] VITALS: BP 152/72; O2SAT 100
--- NOTE | 2021-06-19 11:37 | RAD REPORT ---
EXAM DESCRIPTION: CT - Abdomen Pelvis W Contrast - 06/19/2021 6:43 am CLINICAL HISTORY: ABD PAIN COMPARISON: 06/05/2021 TECHNIQUE: CT of the abdomen and pelvis performed following IV administration of iodinated contras t. This exam was performed according to our departmental dose-optimization program, which includes au tomated exposure control, adjustment of the mA and/or kV according to patient size and/or use of iter ative reconstruction technique. FINDINGS: Lung Bases: The visualized lung bases are clear. Multiple tiny right basilar calcified g ranulomas. Bones: Posterior priscilla and screw fixation at L2-S1. Severe degenerative change at L1/L2. The left L2 L4 screw extends into the L1/L2 disc space. Findings are stable. No acute osseous abnormalities. Abdomen: Liver: The liver has normal size and density. No intrahepatic biliary dilatation. Gallbladder: No calcified gallstones. Spleen, Pancreas, and Adrenal Glands: The spleen, pancreas, and adrenal glands are unremarkable. Kidneys: No hydronephrosis or obstructing calculus. Vasculature: All calcified and noncalcified aortoiliac atherosclerosis. The portal vein is patent. The proximal visceral and renal arteries are patent. Stomach: The stomach and duodenum have normal course. Other: No free intraperitoneal air. No free fluid or lymphadenopathy. Pelvis: Bladder: Urinary bladder is unremarkable. Bowel: No dilated loops of large or small bowel. Scattered diverticula colon. Circumferential wall thickening of the rectum. This is increased from the comparison study. Review minimal adjacent inflammatory change. The Appendix: Normal appendix. Pelvis: Uterus is not enlarged. IMPRESSION: 1. Circumferential wall thickening of the rectum with minimal adjacent inflammatory ch eric. This is increased from the comparison study. Findings may represent proctitis. Follow-up after acute illness to exclude other causes of wall thickening. 2. Diverticulosis without evidence of acute diverticulitis. Electronically signed by: Perry Diggs 06/19/2021 1:02 AM CDT Due to temporary technical issues with the PACS/Fluency reporting system, reports are being signed by the in house radiologist without review as a courtesy to ensure prompt reporting. The interpreting r adiologist is fully responsible for the content of the report.
== END 2021-06-19 06:35 | disposition home or self-care (01) ==
LOC: ER 20:47
DX: E86.0 Dehydration (principal); K62.89 Other specified diseases of anus and rectum; F17.210 Nicotine dependence, cigarettes, uncomplicated; Z20.822 Contact with and (suspected) exposure to COVID-19
CPT/HCPCS: 96365; 96361; 87040 ×2; 87088; 85025; 87086; 80048; 36415; 80076; 83605; 83690; 84145; 74177; 96375; 99284; U0003; Q9967; J7040; J2405; 81003; 81015

== ENCOUNTER 2022-11-28 07:53 | Emergency (ER) | payer OTHER ==
--- OUTSIDE RECORDS SUMMARY | 2022-11-28 08:15 | XMS REPORT | Continuity of Care Document ---
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 (Same as: Trileptal) Mirapex 2020-0 No Notes: Memoria 2-07 (Same as: l 15:00: Mirapex) [place] 00 Pramipexole 0 No Notes: Isaak lauren 2-07 (Same as: l 15:00: Mirapex) Sucralfate 0 No Notes: January M emoria 2-07 interfere l 15:00: w/enteral Jasbir 00 feeds - Take 1 hr before or 2 hr after antacids, dairy pdt, meals & minerals - On empty stomach. For patients unable to swallow tablet, dissolve in 10mL - 30mL of water or juice and stir before giving. (Same As: Carafate) Cogentin 0 No Notes: Memoria 2-07 (Same As: l 15:00: Cogentin) Buspirone 0 No Notes: Memori a 2-07 (Same As: l 15:00: BuSpar) Lexapro 2019-0 No Notes: Memoria 2-07 (Same as: l 15:00: Lexapro) Prinivil 0 No Notes: Memoria 2-07 (Same as: l 15:00: Prinivil, Jasbir Zestril) Trileptal 0 No Notes: Memori a 2-07 Hazardous l 15:00: Drug Group [place] 00 2:Non-anti neoplastic Hazardous Drug -- Refer to safe handling procedure PPE Matrix Do not crush or chew. (Same as: Trileptal) Mirapex 0 No Notes: Memoria 2-07 (Same as: l 15:00: Mirapex) Pramipexole 0 No Notes: Isaak lauren 2-07 (Same as: l 15:00: Mirapex) Sucralfate 0 No Notes: January M emoria 2-07 interfere l 15:00: w/enteral [place] 00 feeds - Take 1 hr before or 2 hr after antacids, dairy pdt, meals & minerals - On empty stomach. For patients unable to swallow tablet, dissolve in 10mL - 30mL of water or juice and stir before giving. (Same As: Carafate) GI cocktail 0 No 45 mL, Isaak lauren (aluminum 2-07 Route: PO, l hydroxide/m 14:00: Dosing Herm jose a agnesium 00 Weight hydroxide/l 45.045, idocaine/si kg, methicone) TID-Meals, Start date: 10/21/19 8:00:00 MAGAZINE SUPERVISOR, Duration: 30 day, Stop date: 11/19/19 17:00:00 MAGAZINE SUPERVISOR Al 2020-0 No Notes: Memoria hydroxide/M 2-07 (aluminum l g 14:00: hydroxide- Jasbir hydroxide/s 00 magnesium imethicone hyd-simeth icone 200-200-20 mg/5ml 30 ml ud GAIL) Xylocaine 2020-0 No Notes: Memori a Viscous 2% 2-07 (Same as: l mucous 14:00: Xylocaine) Estelle nn membrane 00 solution GI cocktail 2019-0 No 45 mL, Isaak lauren (aluminum 2-07 Route: PO, l hydroxide/m 14:00: Dosing Herm jose a agnesium 00 Weight hydroxide/l 45.045, idocaine/si kg, methicone) TID-Meals, Start date: 10/21/19 8:00:00 MAGAZINE SUPERVISOR, Duration: 30 day, Stop date: 11/19/19 17:00:00 MAGAZINE SUPERVISOR Al 2020-0 No Notes: Memoria hydroxide/M 2-07 (aluminum l g 14:00: hydroxide- Jasbir hydroxide/s 00 magnesium imethicone hyd-simeth icone 200-200-20 mg/5ml 30 ml ud GAIL) Xylocaine 2020-0 No Notes: Memori a Viscous 2% 2-07 (Same as: l mucous 14:00: Xylocaine) Estelle nn membrane 00 solution Janumet 2020-0 Yes PO, BID, Memori a 2-07 DAUGHTER l 04:52: NOT SURE Jasbir 00 OF THE DOSAGE, 0 Refill(s) Janumet 2020-0 Yes PO, BID, Memori a 2-07 DAUGHTER l 04:52: NOT SURE Jasbir 00 OF THE DOSAGE, 0 Refill(s) Nicotine 2020-0 No Notes: Memoria 2-07 (Same as: l 02:24: Habitrol) Jasbir 00 "Remove old patch before applicatio n of new patch" WASTE: F/P - P Waste Black; E - P Waste Black Nicotine 2020-0 No Notes: Memoria 2-07 (Same as: l 02:24: Habitrol) [place] 00 "Remove old patch before applicatio n of new patch" WASTE: F/P - P Waste Black; E - P Waste Black Protonix 2019-0 No Notes: For Mem oria 2-07 IV push l 01:37: reconstitu [place] 00 te with 10 ml 0.9% sodium chloride and push over 2 minutes. (Same as: Protonix) Labetalol 2020-0 No 170; hold Mem oria 2-07 for HR<65, l 01:37: 0 Jasbir 00 NS 1,000 mL 2019-0 No 1,000 mL, M emoria 10-21 Rate: 40 l 01:37: ml/hr, Jasbir 00 Infuse over: 25 hr, Route: IV, Dosing Weight 45.455 kg, Total Volume: 1,000, Start date: 10/20/19 19:37:00 MAGAZINE SUPERVISOR, Duration: 1 doses or times, Stop date: 10/21/19 20:36:00 MAGAZINE SUPERVISOR, 1.4, m2, 0 Protonix 2019-0 No Notes: For Mem oria 2-07 IV push l 01:37: reconstitu te with 10 ml 0.9% sodium chloride and push over 2 minutes. (Same as: Protonix) Labetalol 2019-0 No 170; hold Mem oria 2-07 for HR<65, l 01:37: 0 Jasbir 00 NS 1,000 mL 0 No 1,000 mL, emoria 10-21 Rate: 40 l 01:37: ml/hr, [place] 00 Infuse over: 25 hr, Route: IV, Dosing Weight 45.455 kg, Total Volume: 1,000, Start date: 10/20/19 19:37:00 MAGAZINE SUPERVISOR, Duration: 1 doses or times, Stop date: 10/21/19 20:36:00 MAGAZINE SUPERVISOR, 1.4, m2, 0 Dextrose 2019-0 No 12.5 gm, Memor ia 50% Syringe 07 25 mL, l (D50W) 01:36: Route: [place] 00 IVP, Drug Form: INJ, Dosing Weight 45.455, kg, PRN, PRN Blood Glucose Results, Start date: 10/20/19 19:36:00 MAGAZINE SUPERVISOR, Duration: 30 day, Stop date: 11/19/19 19:35:00 MAGAZINE SUPERVISOR, 0 Glucagon 2020-0 No 1 mg, Memoria 10-21 Route: IM, l 01:36: Drug form: Jasbir 00 PDR/INJ, PRN, Dosing Weight 45.455, kg, PRN Blood Glucose Results, Start date: 10/20/19 19:36:00 MAGAZINE SUPERVISOR, Duration: 30 day, Stop date: 11/19/19 19:35:00 MAGAZINE SUPERVISOR, 0 Ondansetron 2020-0 No Notes: Isaak lauren 10-21 (Same as: l 01:36: Zofran) Jasbir 00 MEDICATION WASTE Product Size: 4 mg Product Wasted: ___ mg Acetaminoph 2020-0 No Notes: Do M emoria en 10-21 not exceed l 01:36: 4 gm/day. Jasbir 00 (Same as: Tylenol) Morphine 2020-0 No Notes: Memoria 10-21 (Same l 01:36: as:MORPhin e Sulfate) Nitroglycer 2019-0 No Notes: Isaak lauren in 10-21 (Same l 01:36: as:Nitroqu ick, Nitrostat) "Do Not Crush" Sublingual tablet Dextrose 2020-0 No 12.5 gm, Memor ia 50% Syringe 10-21 25 mL, l (D50W) 01:36: Route: [place] 00 IVP, Drug Form: INJ, Dosing Weight 45.455, kg, PRN, PRN Blood Glucose Results, Start date: 10/20/19 19:36:00 MAGAZINE SUPERVISOR, Duration: 30 day, Stop date: 11/19/19 19:35:00 MAGAZINE SUPERVISOR, 0 Glucagon 2020-0 No 1 mg, Memoria 10-21 Route: IM, l 01:36: Drug form: Jasbir 00 PDR/INJ, PRN, Dosing Weight 45.455, kg, PRN Blood Glucose Results, Start date: 10/20/19 19:36:00 MAGAZINE SUPERVISOR, Duration: 30 day, Stop date: 11/19/19 19:35:00 MAGAZINE SUPERVISOR, 0 Ondansetron 2020-0 No Notes: Isaak lauren 10-21 (Same as: l 01:36: Zofran) Jasbir 00 MEDICATION WASTE Product Size: 4 mg Product Wasted: ___ mg Acetaminoph 2020-0 No Notes: Do M emoria en 10-21 not exceed l 01:36: 4 gm/day. Jasbir 00 (Same as: Tylenol) Morphine No Notes: Memoria - (Same l 01:36: as:MORPhin [place] 00 e Sulfate) Nitroglycer No Notes: Isaak lauren in 10-21 (Same l 01:36: as:Nitroqu [place] 00 ick, Nitrostat) "Do Not Crush" Sublingual tablet Zofran No Notes: Memoria 2- (Same as: l 23:28: Zofran) Jasbir 00 MEDICATION WASTE Product Size: 4 mg Product Wasted: ___ mg Zofran No Notes: Memoria 2- (Same as: l 23:28: Zofran) Jasbir 00 MEDICATION WASTE Product Size: 4 mg Product Wasted: ___ mg Morphine 0 No Notes: Memoria 2- (Same l 19:03: as:MORPhin [place] 00 e Sulfate) Zofran No Notes: Memoria 2- (Same as: l 19:03: Zofran) Jasbir 00 MEDICATION WASTE Product Size: 4 mg Product Wasted: ___ mg Morphine 2019-0 No Notes: Memoria 2- (Same l 19:03: as:MORPhin [place] 00 e Sulfate) Zofran No Notes: Memoria 2- (Same as: l 19:03: Zofran) Jasbir 00 MEDICATION WASTE Product Size: 4 mg Product Wasted: ___ mg remove No Notes: Memoria patch - Remove old l 15:00: patch Jasbir 00 before applicatio n of new patch. WASTE: F/P - P Waste Black; E - P Waste Black remove No Notes: Memoria patch - Remove old l 15:00: patch Jasbir 00 before applicatio n of new patch. WASTE: F/P - P Waste Black; E - P Waste Black cefdinir 2019-0 Yes 300 mg = 1 Mem oria 300 MG Oral 1-22 cap, PO, l Capsule 15:33: Q12H, X 7 Estelle nn [Omnicef] 00 day, # 14 cap, 0 Refill(s), Pharmacy: [facility] #[id number] Azithromyci 2020-0 Yes 500 mg = 1 Memoria n 500 MG 1-22 tab, PO, l Oral Tablet 15:33: Daily, X 3 Jasbir [Zithromax] 00 day, # 3 tab, 0 Refill(s), Pharmacy: [facility] #[id number] benzonatate 2020-0 Yes 200 mg = 1 Memoria 200 MG Oral 1-22 cap, PO, l Capsule 15:33: TID, X 10 Estlele nn [Tessalon] 00 day, # 30 cap, 0 Refill(s), Pharmacy: [facility] #[id number] cefdinir 2020-0 Yes 300 mg = 1 Mem oria 300 MG Oral 1-22 cap, PO, l Capsule 15:33: Q12H, X 7 Estelle nn [Omnicef] 00 day, # 14 cap, 0 Refill(s), Pharmacy: [facility] #[id number] Azithromyci 2020-0 Yes 500 mg = 1 Memoria n 500 MG 1-22 tab, PO, l Oral Tablet 15:33: Daily, X 3 Jasbir [Zithromax] 00 day, # 3 tab, 0 Refill(s), Pharmacy: [facility] #[id number] benzonatate 2020-0 Yes 200 mg = 1 Memoria 200 MG Oral 1-22 cap, PO, l Capsule 15:33: TID, X 10 Estelle nn [Tessalon] 00 day, # 30 cap, 0 Refill(s), Pharmacy: [facility] #[id number] Potassium 2020-0 No Notes: Memori a Chloride 1-22 (Same as: l 13:34: K-Dur 20) [place] 00 "Do Not Crush" Give with food and full glass of water For patients unable to swallow tablet, dissolve in one half glass of water. Allow about 2 minutes for the tablets to disintegra te. Stir before giving to prepare slurry and administer . Please exclude Patient s with feeding tube less than 14 Iranian (Dobhoff, J-tube etc) and pediatric and patients. Potassium 2020-0 No Notes: Memori a Chloride 1-22 (Same as: l 13:34: K-Dur 20) "Do Not Crush" Give with food and full glass of water For patients unable to swallow tablet, dissolve in one half glass of water. Allow about 2 minutes for the tablets to disintegra te. Stir before giving to prepare slurry and administer . Please exclude Patient s with feeding tube less than 14 Iranian (Dobhoff, J-tube etc) and pediatric and patients. Zocor 2020-0 No Notes: Memoria - (Same as: l 03:00: Zocor) Chantix 2020-0 No 0.5 mg, 1 Memor ia - tab, l 03:00: Route: PO, Drug form: TAB, Bedtime, Dosing Weight 45.455, kg, Start date: 10/04/19 21:00:00 MAGAZINE SUPERVISOR, Duration: 30 day, Stop date: 11/02/19 21:00:00 MAGAZINE SUPERVISOR Zocor 2020-0 No Notes: Memoria 10-05 (Same as: l 03:00: Zocor) Chantix 2020-0 No 0.5 mg, 1 Memor ia 10-05 tab, l 03:00: Route: PO, Drug form: TAB, Bedtime, Dosing Weight 45.455, kg, Start date: 10/04/19 21:00:00 MAGAZINE SUPERVISOR, Duration: 30 day, Stop date: 11/02/19 21:00:00 MAGAZINE SUPERVISOR Rocephin + 2019-0 No Notes: Memor ia sterile 10-05 (Same As: l water 10 mL 00:00: Rocephin). Use with 100 mL NS and infuse over 30 min MEDICATION WASTE Product Size: 1000 mg Product Wasted: ___ mg Rocephin + 2020-0 No Notes: Memor ia sterile - (Same As: l water 10 mL 00:00: Rocephin). Use with 100 mL NS and infuse over 30 min MEDICATION WASTE Product Size: 1000 mg Product Wasted: ___ mg Zithromax 2020-0 No Notes: Memori a - (Same As: l 17:00: Zithromax IV) Zithromax 2020-0 No Notes: Memori a 1-21 (Same As: l 17:00: Zithromax IV) Cogentin No Notes: Memoria 1-21 (Same As: l 15:00: Cogentin) Buspirone No Notes: Memori a 1-21 (Same As: l 15:00: BuSpar) clopidogrel No Notes: Isaak lauren 1-21 (Same As: l 15:00: Plavix) Lexapro No Notes: Memoria 1-21 (Same as: l 15:00: Lexapro) Prinivil No Notes: Memoria 1-21 (Same as: l 15:00: Prinivil, Zestril) pantoprazol No Notes: Isaak lauren e - Tablet l 15:00: should not be chewed or crushed. (Same as: Protonix) Mirapex No Notes: Memoria 1-21 (Same as: l 15:00: Mirapex) Pramipexole No 0.125 mg, M emoria -21 1 tab, l 15:00: Route: PO, Drug form: TAB, Daily, Dosing Weight 45.455, kg, Start date: 10/04/19 9:00:00 MAGAZINE SUPERVISOR, Duration: 30 day, Stop date: 11/02/19 9:00:00 MAGAZINE SUPERVISOR Sucralfate No 1 gm, 1 Isaak lauren - tab, l 15:00: Route: PO, Drug form: TAB, BID, Dosing Weight 45.455, kg, Start date: 10/04/19 9:00:00 MAGAZINE SUPERVISOR, Duration: 30 day, Stop date: 11/02/19 17:00:00 MAGAZINE SUPERVISOR Cogentin No Notes: Memoria 1-21 (Same As: l 15:00: Cogentin) Buspirone No Notes: Memori a 1-21 (Same As: l 15:00: BuSpar) clopidogrel No Notes: Isaak lauren 1-21 (Same As: l 15:00: Plavix) Lexapro No Notes: Memoria - (Same as: l 15:00: Lexapro) Prinivil No Notes: Memoria - (Same as: l 15:00: Prinivil, Zestril) pantoprazol No Notes: Isaak lauren e 10-04 Tablet l 15:00: should not be chewed or crushed. (Same as: Protonix) Mirapex No Notes: Memoria - (Same as: l 15:00: Mirapex) Pramipexole No 0.125 mg, M emoria - 1 tab, l 15:00: Route: PO, Drug form: TAB, Daily, Dosing Weight 45.455, kg, Start date: 10/04/19 9:00:00 MAGAZINE SUPERVISOR, Duration: 30 day, Stop date: 11/02/19 9:00:00 MAGAZINE SUPERVISOR Sucralfate No 1 gm, 1 Isaak lauren - tab, l 15:00: Route: PO, Drug form: TAB, BID, Dosing Weight 45.455, kg, Start date: 10/04/19 9:00:00 MAGAZINE SUPERVISOR, Duration: 30 day, Stop date: 11/02/19 17:00:00 MAGAZINE SUPERVISOR Robitussin No Notes: Memor ia - (Same as: l 04:13: Robitussin ) Robitussin No Notes: Memor ia - (Same as: l 04:13: Robitussin ) Guaifenesin No 10 ml, Isaak lauren 20 MG/ML / 10-04 Route: PO, l Phenylephri 03:58: Drug Form: LIQ, Hydrochlori Dosing de 1 MG/ML Weight Oral 45.455, Solution kg, Q6H, PRN Cough/Ricky estion, Start date: 10/03/19 21:58:00 MAGAZINE SUPERVISOR, Duration: 30 day, Stop date: 11/02/19 21:57:00 MAGAZINE SUPERVISOR Guaifenesin No 10 ml, Isaak lauren 20 MG/ML / 10-04 Route: PO, l Phenylephri 03:58: Drug Form: Jasbir ne 00 LIQ, Hydrochlori Dosing de 1 MG/ML Weight Oral 45.455, Solution kg, Q6H, PRN Cough/Ricky estion, Start date: 10/03/19 21:58:00 MAGAZINE SUPERVISOR, Duration: 30 day, Stop date: 11/02/19 21:57:00 MAGAZINE SUPERVISOR Habitrol No Notes: Memoria - (Same as: l 03:31: Habitrol) "Remove old patch before applicatio n of new patch" WASTE: F/P - P Waste Black; E - P Waste Black Habitrol No Notes: Memoria - (Same as: l 03:31: Habitrol) "Remove old patch before applicatio n of new patch" WASTE: F/P - P Waste Black; E - P Waste Black Trileptal No Notes: Do Mem oria - not crush l 03:27: or chew. (Same as: Trileptal) Trileptal No Notes: Do Mem oria - not crush l 03:27: or chew. (Same as: Trileptal) Seroquel No Notes: Memoria - (Same as: l 03:00: SEROquel) Seroquel No Notes: Memoria - (Same as: l 03:00: SEROquel) Cogentin 2019-0 Yes 0.5 mg, Memori a 1-21 PO, TID, 0 l 02:59: Refill(s) Prinivil 2019-0 Yes 2.5 mg, Memori a 1-21 PO, Daily, l 02:59: 0 Refill(s) varenicline 2019-0 Yes 0.5 mg = 1 Memoria 0.5 MG Oral 1-21 tab, PO, l Tablet 02:59: Bedtime, # Estelle nn [Chantix] 00 30 tab, 0 Refill(s) oxcarbazepi 2019-0 Yes 150 mg = 1 Memoria ne 150 MG 1-21 tab, PO, l Oral Tablet 02:59: BID, # 120 [place] [Trileptal] 00 tab, 0 Refill(s) lidocaine 2020-0 Yes TOP, TID, Mem oria 5% 3.5 gm -21 0 l top OIN 02:59: Refill(s) Estelle nn 00 Simvastatin 2019-0 Yes 40 mg = 1 M emoria 40 MG Oral -21 tab, PO, l Tablet 02:59: Bedtime, # Estelle nn [Zocor] 00 90 tab, 1 Refill(s) Escitalopra 2019-0 Yes 20 mg = 1 M emoria m 20 MG -21 tab, PO, l Oral Tablet 02:59: Daily, # He rmann [Lexapro] 00 30 tab, 0 Refill(s) Klonopin 2019-0 No 0.25 mg, Memor ia -21 PO, BID, 0 l 02:59: Refill(s) [place] quetiapine 2019-0 Yes 100 mg = 1 M emoria 100 MG Oral -21 tab, PO, l Tablet 02:59: Bedtime, # Estelle nn [Seroquel] 00 270 tab, 0 Refill(s) Pramipexole 2019-0 Yes 0.25 mg = M emoria dihydrochlo 21 1 tab, PO, l ride 0.25 02:59: TID, # 90 Her do MG Oral 00 tab, 0 Tablet Refill(s) [Mirapex] Janumet 2019-0 No PO, BID, 0 Isaak lauren -21 Refill(s) l 02:59: [place] clopidogrel 2019-0 Yes 75 mg = 1 M emoria 75 mg oral -21 tab, PO, l tablet 02:59: Daily, # Jasbir 00 30 tab, 0 Refill(s) Cogentin 2020-0 Yes 0.5 mg, Memori a 1-21 PO, TID, 0 l 02:59: Refill(s) [place] 00 Prinivil 2019-0 Yes 2.5 mg, Memori a 1-21 PO, Daily, l 02:59: 0 Jasbir 00 Refill(s) varenicline 2019-0 Yes 0.5 mg = 1 Memoria 0.5 MG Oral 1-21 tab, PO, l Tablet 02:59: Bedtime, # Estelle nn [Chantix] 00 30 tab, 0 Refill(s) oxcarbazepi 2020-0 Yes 150 mg = 1 Memoria ne 150 MG -21 tab, PO, l Oral Tablet 02:59: BID, # 120 [place] [Trileptal] 00 tab, 0 Refill(s) lidocaine 2020-0 Yes TOP, TID, Mem oria 5% 3.5 gm 10-04 0 l top OIN 02:59: Refill(s) Estelle nn 00 Simvastatin 2019-0 Yes 40 mg = 1 M emoria 40 MG Oral -21 tab, PO, l Tablet 02:59: Bedtime, # Estelle nn [Zocor] 00 90 tab, 1 Refill(s) Escitalopra 2019-0 Yes 20 mg = 1 M emoria m 20 MG -21 tab, PO, l Oral Tablet 02:59: Daily, # Matteo luisaann [Lexapro] 00 30 tab, 0 Refill(s) Klonopin 2019-0 No 0.25 mg, Memor ia -21 PO, BID, 0 l 02:59: Refill(s) Jasbir 00 quetiapine 2019-0 Yes 100 mg = 1 M emoria 100 MG Oral - tab, PO, l Tablet 02:59: Bedtime, # Estelle nn [Seroquel] 00 270 tab, 0 Refill(s) Pramipexole 2019-0 Yes 0.25 mg = M emoria dihydrochlo 10-04 1 tab, PO, l ride 0.25 02:59: TID, # 90 Her do MG Oral 00 tab, 0 Tablet Refill(s) [Mirapex] Janumet 2019-0 No PO, BID, 0 Isaak lauren 10-04 Refill(s) l 02:59: [place] 00 clopidogrel 2019-0 Yes 75 mg = 1 M emoria 75 mg oral -21 tab, PO, l tablet 02:59: Daily, # Jasbir 00 30 tab, 0 Refill(s) Lovenox 2020-0 No Notes: Memoria -21 (Same as: l 00:15: Lovenox) Jasbir 00 Dextrose 2019-0 No 12.5 gm, Memor ia 50% Syringe 10-04 25 mL, l (D50W) 00:15: Route: [place] 00 IVP, Drug Form: INJ, Dosing Weight 45.455, kg, PRN, PRN Blood Glucose Results, Start date: 10/03/19 18:15:00 MAGAZINE SUPERVISOR, Duration: 30 day, Stop date: 11/02/19 18:14:00 MAGAZINE SUPERVISOR, 0 Glucagon 2020-0 No 1 mg, Memoria 10-04 Route: IM, l 00:15: Drug form: [place] 00 PDR/INJ, PRN, Dosing Weight 45.455, kg, PRN Blood Glucose Results, Start date: 10/03/19 18:15:00 MAGAZINE SUPERVISOR, Duration: 30 day, Stop date: 11/02/19 18:14:00 MAGAZINE SUPERVISOR, 0 Insulin 2019-0 No Notes: Memoria Lispro -21 (Same as: l 00:15: Humalog) Roll in palms of hands gently; Do not shake vigorously . WASTE: F/P - Black; E - Municipal Trash Bin Stable for 28 days at room temperatur e. Expires in days from ____Date Kayexalate 2019-0 No Notes: Memor ia -21 (sodium l 00:15: polystyren e sulfonate 15 gm/60 ml GAIL) Shake well before use. (Same as: Kayexalate , SPS) Lovenox 2019-0 No Notes: Memoria -21 (Same as: l 00:15: Lovenox) Dextrose 2019-0 No 12.5 gm, Memor ia 50% Syringe -21 25 mL, l (D50W) 00:15: Route: Jasbir 00 IVP, Drug Form: INJ, Dosing Weight 45.455, kg, PRN, PRN Blood Glucose Results, Start date: 10/03/19 18:15:00 MAGAZINE SUPERVISOR, Duration: 30 day, Stop date: 11/02/19 18:14:00 MAGAZINE SUPERVISOR, 0 Glucagon 2020-0 No 1 mg, Memoria 10-04 Route: IM, l 00:15: Drug form: [place] 00 PDR/INJ, PRN, Dosing Weight 45.455, kg, PRN Blood Glucose Results, Start date: 10/03/19 18:15:00 MAGAZINE SUPERVISOR, Duration: 30 day, Stop date: 11/02/19 18:14:00 MAGAZINE SUPERVISOR, 0 Insulin 2020-0 No Notes: Memoria Lispro 1-21 (Same as: l 00:15: Humalog) Roll in palms of hands gently; Do not shake vigorously . WASTE: F/P - Black; E - Municipal Trash Bin Stable for 28 days at room temperatur e. Expires in days from ____Date Kayexalate 2020-0 No Notes: Memor ia 1-21 (sodium l 00:15: polystyren e sulfonate 15 gm/60 ml GAIL) Shake well before use. (Same as: Kayexalate , SPS) Dextrose 2019-0 No 12.5 gm, Memor ia 50% Syringe 1-20 25 mL, l (D50W) 23:12: Route: IVP, Drug Form: INJ, Dosing Weight 45.455, kg, PRN, PRN Blood Glucose Results, Start date: 10/03/19 17:12:00 MAGAZINE SUPERVISOR, Duration: 30 day, Stop date: 11/02/19 17:11:00 MAGAZINE SUPERVISOR, 0 Glucagon 2020-0 No 1 mg, Memoria 10-03 Route: IM, l 23:12: Drug form: PDR/INJ, PRN, Dosing Weight 45.455, kg, PRN Blood Glucose Results, Start date: 10/03/19 17:12:00 MAGAZINE SUPERVISOR, Duration: 30 day, Stop date: 11/02/19 17:11:00 MAGAZINE SUPERVISOR, 0 Ondansetron 2019-0 No Notes: Isaak lauren 1-20 (Same as: l 23:12: Zofran) MEDICATION WASTE Product Size: 4 mg Product Wasted: ___ mg Trazodone 2019-0 No Notes: Memori a 1-20 (Same As: l 23:12: Desyrel) Acetaminoph 2019-0 No Notes: Do M emoria en -20 not exceed l 23:12: 4 gm/day. (Same as: Tylenol) Dextrose 2020-0 No 12.5 gm, Memor ia 50% Syringe 1-20 25 mL, l (D50W) 23:12: Route: IVP, Drug Form: INJ, Dosing Weight 45.455, kg, PRN, PRN Blood Glucose Results, Start date: 10/03/19 17:12:00 MAGAZINE SUPERVISOR, Duration: 30 day, Stop date: 11/02/19 17:11:00 MAGAZINE SUPERVISOR, 0 Glucagon 2019-0 No 1 mg, Memoria 10-03 Route: IM, l 23:12: Drug form: PDR/INJ, PRN, Dosing Weight 45.455, kg, PRN Blood Glucose Results, Start date: 10/03/19 17:12:00 MAGAZINE SUPERVISOR, Duration: 30 day, Stop date: 11/02/19 17:11:00 MAGAZINE SUPERVISOR, 0 Ondansetron 2019-0 No Notes: Isaak lauren -20 (Same as: l 23:12: Zofran) MEDICATION WASTE Product Size: 4 mg Product Wasted: ___ mg Trazodone No Notes: Memori a -20 (Same As: l 23:12: Desyrel) Acetaminoph 2019-0 No Notes: Do M emoria en -20 not exceed l 23:12: 4 gm/day. (Same as: Tylenol) D5LR 1,000 0 No 1,000 mL, Me moria mL -20 Rate: 75 l 23:11: ml/hr, Infuse over: 13.3 hr, Route: IV, Dosing Weight 45.455 kg, Total Volume: 1,000, Start date: 10/03/19 17:11:00 [employer]AZINE SUPERVIS[employer], Duration: 30 day, Stop date: 11/02/19 17:10:00 MAGAZINE SUPERVISOR, 1.4, m2, 0 Promethazin 0 No Notes: Do M emoria e 1-20 not give l 23:11: IV push. (Same as: Phenergan) D5LR 1,000 0 No 1,000 mL, Me moria mL -20 Rate: 75 l 23:11: ml/hr, Infuse over: 13.3 hr, Route: IV, Dosing Weight 45.455 kg, Total Volume: 1,000, Start date: 10/03/19 17:11:00 [employer]AZINE SUPERVISOR, Duration: 30 day, Stop date: 11/02/19 17:10:00 MAGAZINE SUPERVISOR, 1.4, m2, 0 Promethazin 2019-0 No Notes: Do M emoria e 10-03 not give l 23:11: IV push. (Same as: Phenergan) Ceftriaxone 0 No Notes: Isaak lauren -20 (Same As: l 22:28: Rocephin). Use with 100 mL NS and infuse over 30 min MEDICATION WASTE Product Size: 1000 mg Product Wasted: ___ mg Ceftriaxone 2019-0 No Notes: Isaak lauren -20 (Same As: l 22:28: Rocephin). Use with 100 mL NS and infuse over 30 min MEDICATION WASTE Product Size: 1000 mg Product Wasted: ___ mg Saline 2019-0 No Notes: Memoria Flush 0.9% -20 Same as: l 19:59: BD Posiflush Sterile Calcium 2020-0 No 1,000 mL, Memor ia Chloride 1-20 2,000 l 0.0014 19:59: ml/hr, Jasbir MEQ/ML / 00 Infuse Potassium Over: 0.5 Chloride hr, Route: 0.004 IV, 1,000, MEQ/ML / Drug form: Sodium INJ, ONCE, Chloride Priority: 0.103 STAT, MEQ/ML / Dosing Sodium Weight Lactate 45.455 kg, 0.028 Start MEQ/ML date: Injectable 10/03/19 Solution 13:59:00 [employer]INE SUPERVIS[employer], Stop date: 10/03/19 13:59:00 MAGAZINE SUPERVISOR, 0 Ondansetron 2019-0 No Notes: Isaak lauren -20 (Same as: l 19:59: Zofran) MEDICATION WASTE Product Size: 4 mg Product Wasted: ___ mg Saline 0 No Notes: Memoria Flush 0.9% 1-20 Same as: l 19:59: BD [place] 00 Posiflush Sterile Calcium 2020-0 No 1,000 mL, Memor ia Chloride 1-20 2,000 l 0.0014 19:59: ml/hr, [place] MEQ/ML / 00 Infuse Potassium Over: 0.5 Chloride hr, Route: 0.004 IV, 1,000, MEQ/ML / Drug form: Sodium INJ, ONCE, Chloride Priority: 0.103 STAT, MEQ/ML / Dosing Sodium Weight Lactate 45.455 kg, 0.028 Start MEQ/ML date: Injectable 10/03/19 Solution 13:59:00 MAGAZINE SUPERVISOR, Stop date: 10/03/19 13:59:00 MAGAZINE SUPERVISOR, 0 Ondansetron No Notes: Isaak lauren 1-20 (Same as: l 19:59: Zofran) MEDICATION WASTE Product Size: 4 mg Product Wasted: ___ mg baclofen 2017-09 Yes 5 mg = 1 [facility]ria mg oral 2-26 tab, PO, l tablet 05:08: TID, PRN [place] 00 Muscle Spasms, # 15 tab, 0 Refill(s) baclofen 2017-09 Yes 5 mg = 1 Mem oria mg oral 2-26 tab, PO, l tablet 05:08: TID, PRN Jasbir 00 Muscle Spasms, # 15 tab, 0 Refill(s) tramadol 2017-09 No 50 mg = 1 Isaak lauren hydrochlori 2-26 tab, PO, l de 50 MG 05:06: Q6H, PRN Estelle nn Oral Tablet 00 pain, X 5 [Ultram] day, # 20 tab, 0 Refill(s) tramadol 2017-09 No 50 [...] kg, Priority: STAT, Start date: 09/07/18 21:14:00 MAGAZINE SUPERVISOR, Stop date: 09/07/18 21:14:00 MAGAZINE SUPERVISOR Dexamethaso 2017- No 4 mg, 1 Mem oria ne 2-26 mL, Route: l 03:14: IM, Drug form: INJ, ONCE, Dosing Weight 45.455, kg, Priority: STAT, Start date: 09/07/18 21:14:00 MAGAZINE SUPERVISOR, Stop date: 09/07/18 21:14:00 MAGAZINE SUPERVISOR Tramadol 2018-1 No 50 kg, Memori a 2-26 Priority: l 03:00: STAT Start date: 09/07/18 21:00:00 MAGAZINE SUPERVISOR, Stop date: 09/07/18 21:00:00 MAGAZINE SUPERVISOR Tramadol 2018-1 No 50 kg, Memori a 2-26 Priority: l 03:00: STAT Start date: 09/07/18 21:00:00 MAGAZINE SUPERVISOR, Stop date: 09/07/18 21:00:00 MAGAZINE SUPERVISOR methIMAzole 2017-0 Yes 10mg QD Take 10 mg [facility] (TAPAZOLE) 9-[address] 10 MG 13:45: daily. [facility] tablet 26 l pravastatin 2017-0 Yes 40mg QD Take 40 mg [facility] (PRAVACHOL) 9-[address] 40 MG 13:45: daily. [facility]osp[facility] tablet 26 l traZODone 2017-0 Yes 150mg QD Take 150 [facility] (DESYREL) 9-[address] 150 MG 13:45: mouth [facility] tablet 26 nightly. l venlafaxine 2017-0 Yes 100mg QD Take 100 [facility] (EFFEXOR) 9-[address] 100 MG 13:45: mouth [facility] tablet 26 daily. l glimepiride 2017-0 Yes 2mg QD Take 2 mg [facility] (AMARYL) 2 9-[address] MG tablet 13:45: daily [facility]ospita 26 before l breakfast. HYDROcodone 2017-0 Yes 1{tbl} Q4H Take 1 [facility] -acetaminop 9-[address] [facility] (NORCO) 13:45: mouth [facility] 7.5-325 mg 26 every 4 l per tablet (four) hours as needed for moderate pain. hydrOXYzine 2017-0 Yes 25mg Q.5D Take 25 mg [facility] (ATARAX) 25 9-[address] MG tablet 13:45: (two) Hospita 26 times a l day. methIMAzole 2017-0 Yes 10mg QD Take 10 mg [facility] (TAPAZOLE) 9-[address] 10 MG 13:45: daily. [facility]osp[facility] tablet 26 l pravastatin 2017-0 Yes 40mg QD Take 40 mg [facility] (PRAVACHOL) 9-[address] 40 MG 13:45: daily. [facility]osp[facility] tablet 26 l traZODone 2017-0 Yes 150mg QD Take 150 [facility] (DESYREL) 9-[address] 150 MG 13:45: mouth [facility]osp[facility] tablet 26 nightly. l venlafaxine 2017-0 Yes 100mg QD Take 100 [facility] (EFFEXOR) 9-[address] 100 MG 13:45: mouth [facility] tablet 26 daily. l ALPRAZolam 2017-0 Yes 1mg Q.25D Take 1 mg [facility] (XANAX) 1 9-[address] MG tablet 13:45: (four) Hospit a 26 times a l day. aspirin 2017-0 Yes 81mg QD Take 81 mg Meth brenna (ECOTRIN) 9-[address] 81 MG 13:45: daily. [facility]ospita enteric 26 l coated tablet ALPRAZolam 2017-0 Yes 1mg Q.25D Take 1 mg [facility] (XANAX) 1 9-[address] MG tablet 13:45: (four) Hospit a 26 times a l day. aspirin 2017-0 Yes 81mg QD Take 81 mg Meth brenna (ECOTRIN) 9-[address] 81 MG 13:45: daily. [facility]osp[facility] enteric 26 l coated tablet glimepiride 2017-0 Yes 2mg QD Take 2 mg [facility] (AMARYL) 2 9-[address] MG tablet 13:45: daily [facility]osp[facility] 26 before l breakfast. HYDROcodone 2017-0 Yes 1{tbl} Q4H Take 1 [facility] -acetaminop 9-[address] hen (NORCO) 13:45: mouth Hospi ta 7.5-325 mg 26 every 4 l per tablet (four) hours as needed for moderate pain. hydrOXYzine 2017-0 Yes 25mg Q.5D Take 25 mg [facility] (ATARAX) 25 9-[address] MG tablet 13:45: (two) [facility]ospita 26 times a l day. clopidogrel 2017-0 Yes TK 1 T PO M [facility] (PLAVIX) 75 9-[address] mg tablet 00:00: [facility]ospita 00 l clopidogrel 2017-0 Yes TK 1 T PO M [facility] (PLAVIX) 75 9-[address] mg tablet 00:00: [facility]ospita 00 l lisinopril Yes TK 1 T PO [facility] (PRINIVIL,Z 8-[address] ESTRIL) 2.5 00:00: Hospit a mg tablet 00 l SEPUMET Yes TK 1 T PO Metho di 50-500 mg 8-[address] per tablet 00:00: Hospita 00 l lisinopril Yes TK 1 T PO [facility] (PRINIVIL,Z 8-[address] ESTRIL) 2.5 00:00: Hospit a mg tablet 00 l SEPUMET Yes TK 1 T PO Metho di 50-500 mg 8-[address] per tablet 00:00: [facility]ospita 00 l busPIRone Yes TK 1 T PO [facility] (BUSPAR) 30 8-[address] MG tablet 00:00: [facility]ospita 00 l busPIRone Yes TK 1 T PO [facility] (BUSPAR) 30 8-[address] MG tablet 00:00: [facility]ospita 00 l Sodium No 500 mL, [facility] Chloride 3-29 500 ml/hr, l 0.154 09:23: Infuse [place] MEQ/ML 00 Over: 1 Injectable hr, Route: Solution IV, 500, Drug form: INJ, ONCE, Priority: STAT, Dosing Weight 59.091 kg, Start date: 12/10/16 4:23:00 CDT, Duration: 1 doses or times, Stop date: 12/10/16 4:23:00 CDT Sodium 2016- No 500 mL, [facility] Chloride 3-29 500 ml/hr, l 0.154 09:23: Infuse Jasbir MEQ/ML 00 Over: 1 Injectable hr, Route: Solution IV, 500, Drug form: INJ, ONCE, Priority: STAT, Dosing Weight 59.091 kg, Start date: 12/10/16 4:23:00 CDT, Duration: 1 doses or times, Stop date: 12/10/16 4:23:00 CDT Saline No Notes: Memoria Flush 0.9% 12-10 Same as: l 07:02: BD [place] 00 Posiflush Sterile Saline No Notes: [facility] Flush 0.9% 3-29 Same as: l 07:02: BD [place] Posiflush Sterile Ondansetron Yes Special Mem oria 4 MG - Instructio l Disintegrat 10:40: ns: Chris n ing Tablet 00 Dissolve [Zofran] tab under tongue Ondansetron Yes Special Mem oria 4 MG - Instructio l Disintegrat 10:40: ns: Chris n ing Tablet 00 Dissolve [Zofran] tab under tongue Ondansetron No Notes: Isaak lauren -26 (Same as: l 10:13: Zofran) [place] 00 MEDICATION WASTE Product Size: 4 mg Product Wasted: ___ mg Ativan No Notes: Memoria 9-26 (Same as: l 10:13: Ativan) Jasbir 00 Ondansetron No Notes: Isaak lauren - (Same as: l 10:13: Zofran) [place] 00 MEDICATION WASTE Product Size: 4 mg Product Wasted: ___ mg Ativan No Notes: Memoria -26 (Same as: l 10:13: Ativan) Jasbir Sodium No 1,000 mL, Memori a Chloride 7-24 1,000 l 0.154 04:34: ml/hr, [place] MEQ/ML 00 Infuse Injectable Over: 1 Solution hr, Route: IV, ONCE, Priority: STAT, Dosing Weight 59.091 kg, Start date: 04/05/15 23:34:00, Duration: 1 doses or times, Stop date: 04/05/15 23:34:00 Sodium No 1,000 mL, Memori a Chloride 7-24 1,000 l 0.154 04:34: ml/hr, [place] MEQ/ML 00 Infuse Injectable Over: 1 Solution hr, Route: IV, ONCE, Priority: STAT, Dosing Weight 59.091 kg, Start date: 04/05/15 23:34:00, Duration: 1 doses or times, Stop date: 04/05/15 23:34:00 Saline No Notes: Memoria Flush 0.9% 24 Same as: l 02:36: BD Jasbir Posiflush Sterile Saline No Notes: [facility]oria Flush 0.9% 04-06 Same as: l 02:36: BD Posiflush Sterile Levaquin No Notes: Do Isaak lauren 04-16 not give l 17:00: w/antacids Jasbir 00 , dairy pdt & minerals Take 1 hr before or 2 hr after dairy products Levaquin No Notes: Do Isaak lauren 04-16 [...] 04-15 tab, PO, l oral tablet 16:40: [id number], # Jasbir 00 7 tab, 0 Refill(s) glimepiride Yes 4 mg = 1 Me moria 4 mg oral 04-15 tab, PO, l tablet 16:40: BID, # 60 Chirs n 00 tab, 0 Refill(s) 120 ACTUAT Yes 2 puff, Isaak lauren Budesonide 02 INHALATION l 0.16 16:40: , RBID, # Jasbir MG/ACTUAT / 00 1 ea, 0 formoterol Refill(s) fumarate 0.0045 MG/ACTUAT Metered Dose Inhaler [Symbicort] lisinopril Yes 10 mg = 1 Me moria 10 mg oral 02 tab, PO, l tablet 16:40: Daily, # [place] 00 30 tab, 0 Refill(s) predniSONE Yes Special Isaak lauren 10 mg [...] 04-15 tab, PO, l oral tablet 16:40: [id number], # Jasbir 00 7 tab, 0 Refill(s) glimepiride Yes 4 mg = 1 Me moria 4 mg oral 04-15 tab, PO, l tablet 16:40: BID, # 60 Chris n 00 tab, 0 Refill(s) 120 ACTUAT Yes 2 puff, Isaak lauren Budesonide 04-15 INHALATION l 0.16 16:40: , RBID, # [place] MG/ACTUAT / 00 1 ea, 0 formoterol Refill(s) fumarate 0.0045 MG/ACTUAT Metered Dose Inhaler [Symbicort] lisinopril Yes 10 mg = 1 Me moria 10 mg oral 04-15 tab, PO, l tablet 16:40: Daily, # [place] 00 30 tab, 0 Refill(s) Clonidine No Notes: Memori a 04-15 (Same As: l 12:50: Catapres) [place] 00 Clonidine No Notes: Memori a 04-15 (Same As: l 12:50: Catapres) [place] 00 120 ACTUAT No Notes: Memor ia Budesonide 04-15 (Same as: l 0.16 01:00: Symbicort) [place] MG/ACTUAT / 00 formoterol fumarate 0.0045 MG/ACTUAT Metered Dose Inhaler [Symbicort] 120 ACTUAT No Notes: Memor ia Budesonide 04-15 (Same as: l 0.16 01:00: Symbicort) Jasbir MG/ACTUAT / 00 formoterol fumarate 0.0045 MG/ACTUAT Metered Dose Inhaler [Symbicort] tiotropium No Notes: Memor ia 0.018 04-14 (Same As: l MG/ACTUAT 19:00: Spiriva) Herm jose a Inhalant 00 Powder [Spiriva] tiotropium No Notes: Memor ia 0.018 04-14 (Same As: l MG/ACTUAT 19:00: Spiriva) Herm jose a Inhalant 00 Powder [Spiriva] Prednisone No Notes: Memor ia 04-14 Take with l 18:05: food. Jasbir 00 Prednisone No Notes: Memor ia 04-14 Take with l 18:05: food. Jasbir 00 Levaquin No Notes: Memoria 04-14 (Same l 17:00: as:Levaqui Jasbir 00 n) Levaquin No Notes: Memoria 8- (Same l 17:00: as:Levaqui Jasbir 00 n) potassium No Notes: Memori a phosphate-s 04-14 Non-Fomrul l odium 12:03: [facility] [place] phosphate 00 (Same as: 250 mg-45 K-Phos) mg-298 mg oral tablet potassium No Notes: Memori a phosphate-s 04-14 Non-Fomrul l odium 12:03: [facility] [place] phosphate 00 (Same as: 250 mg-45 K-Phos) mg-298 mg oral tablet Methylpredn No Notes: Isaak lauren isolone 04-14 (Same l 02:00: as:Solu-ME DROL, A-Methapre d) Pravastatin No Notes: Isaak lauren 04-14 (Same as: l 02:00: Pravachol) Pramipexole No Notes: Isaak lauren 8- (Same as: l 02:00: Mirapex) Jasbir 00 Methylpredn No Notes: Isaak lauren isolone 8- (Same l 02:00: as:Solu-ME Jasbir 00 DROL, A-Methapre d) Pravastatin No Notes: Isaak lauren 8- (Same as: l 02:00: Pravachol) Pramipexole No Notes: Isaak lauren 8- (Same as: l 02:00: Mirapex) [place] 00 Alprazolam No Notes: Memor ia 1 MG Oral 7-31 With food l Tablet 22:00: or milk [place] [Xanax] 00 (Same as: Xanax) Alprazolam No Notes: Memor ia 1 MG Oral 7-31 With food l Tablet 22:00: or milk Jasbir [Xanax] 00 (Same as: Xanax) Buspirone No Notes: Memori a 7-31 (Same As: l 18:00: BuSpar) Jasbir 00 Buspirone No Notes: Memori a 7-31 (Same As: l 18:00: BuSpar) Jasbir 00 Lisinopril No Notes: Memor ia 7-31 (Same as: l 17:30: Prinivil, [place] 00 Zestril) Lisinopril No Notes: Memor ia 7-31 (Same as: l 17:30: Prinivil, [place] Zestril) Metformin No Notes: Memori a 7-31 (Same as: l 17:00: Glucophage [place] 00 ) Take with meal Sepuvia No Notes: Memoria 7-31 (Same as: l 17:00: Januvia) Sucralfate No Notes: May M emoria 7-31 interfere l 17:00: w/enteral [place] 00 feeds - Take 1 hr before or 2 hr after antacids, dairy pdt, meals & minerals - On empty stomach. (Same As: Carafate) Metformin No Notes: Memori a 7-31 (Same as: l 17:00: Glucophage Jasbir 00 ) Take with meal Januvia No Notes: Memoria 7- (Same as: l 17:00: Januvia) Sucralfate No Notes: January M emoria - interfere l 17:00: w/enteral feeds - Take 1 hr before or 2 hr after antacids, dairy pdt, meals & minerals - On empty stomach. (Same As: Carafate) Hydroxyzine No Notes: Isaak lauren Hydrochlori - (Same as: l de 25 MG 16:37: Atarax) Chris n Oral Tablet 00 Avoid alcohol. Hydroxyzine No Notes: Isaak lauren Hydrochlori 7-31 (Same as: l de 25 MG 16:37: Atarax) Chris n Oral Tablet 00 Avoid alcohol. Nicoderm No Notes: Memoria C-Q 04-13 (Same as: l 14:00: Habitrol) "Remove old [...] capsular polysacchar glimepiride No Notes: Isaak lauren - (Same as: l 14:00: Amaryl) Aspirin / No Notes: Do Mem oria Calcium 04-13 not crush l Carbonate 14:00: or chew. (Same As: Ecotrin) Prednisone No Notes: Memor ia 7- Take with l 14:00: food. Nicoderm No Notes: Memoria C-Q 7-31 (Same as: l 14:00: Habitrol) "Remove old patch before applicatio n of new patch" Lexapro No Notes: Memoria 7-31 (Same as: l 14:00: Lexapro) [place] pneumococca No Notes: Isaak lauren l capsular [...] lauren 7-31 (Same as: l 14:00: Amaryl) [place] Aspirin / No Notes: Do Mem oria Calcium 7-31 not crush l Carbonate 14:00: or chew. Herm jose a (Same As: Ecotrin) Prednisone No Notes: Memor ia 7-31 Take with l 14:00: food. [place] 00 Protonix No Notes: Memoria 7-31 Tablet l 12:30: should not [place] 00 be chewed or crushed. (Same as: Protonix) Protonix No Notes: Memoria 7-31 Tablet l 12:30: should not [place] 00 be chewed or crushed. (Same as: Protonix) insulin No Notes: Memoria detemir 7-31 Same as l 02:00: Levemir "single patient use only" insulin No Notes: Memoria detemir 7-31 Same as l 02:00: Levemir "single patient use only" Albuterol No Notes: Memori a 0.833 MG/ML 7-31 (Same as: l / 01:00: Duoneb) Jasbir Ipratropium 00 [place] 0.167 MG/ML Inhalant Solution [DuoNeb] Albuterol No Notes: Memori a 0.833 MG/ML 7-31 (Same as: l / 01:00: Duoneb) [place] Ipratropium 00 [place] 0.167 MG/ML Inhalant Solution [DuoNeb] Brovana No Notes: SEE Isaak lauren 7-30 RT l 23:02: DOCUMENTAT Jasbir 00 ION Same as Brovana Brovana No Notes: SEE Isaak lauren 7-30 RT l 23:02: DOCUMENTAT Jasbir 00 ION Same as Britany Jackson No Notes: Memoria C-Q 7-30 (Same as: l 23:00: Habitrol) [place] 00 "Remove old patch before applicatio n of new patch" Nicoderm No Notes: Memoria C-Q 7-30 (Same as: l 23:00: Habitrol) [place] 00 "Remove old patch before applicatio n of new patch" Methylpredn No Notes: Isaak lauren isolone 7-30 (Same l 22:00: as:Solu-ME Jasbir 00 DROL, A-Methapre d) Alprazolam No Notes: Memor ia 1 MG Oral 7-30 With food l Tablet 22:00: or milk Jasbir [Xanax] 00 (Same as: Xanax) Alprazolam No Notes: Memor ia 7-30 With food l 22:00: or milk Jasbir 00 (Same as: Xanax) Advair No Notes: Memoria Diskus 250 7-30 (Same as: l mcg-50 mcg 22:00: Advair) Herm jose a inhalation 00 powder Methylpredn No Notes: Isaak lauren isolone 7-30 (Same l 22:00: as:Solu-ME Jasbir 00 DROL, A-Methapre d) Alprazolam No Notes: Memor ia 1 MG Oral 7-30 With food l Tablet 22:00: or milk [place] [Xanax] 00 (Same as: Xanax) Alprazolam No Notes: Memor ia 7-30 With food l 22:00: or milk Jasbir 00 (Same as: Xanax) Advair No Notes: Memoria Diskus 250 7-30 (Same as: l mcg-50 mcg 22:00: Advair) Herm jose a inhalation 00 powder Budesonide No Notes: Memor ia 7-30 (Same As: l 21:11: Pulmicort) Jasbir 00 Budesonide No Notes: Memor ia 7-30 (Same As: l 21:11: Pulmicort) [place] 00 Ativan No Notes: Memoria 7-30 (Same as: l 21:08: Ativan) Ativan No Notes: Memoria 7-30 (Same as: l 21:08: Ativan) Levaquin No Notes: Memoria 7-30 (Same l 21:00: as:Levaq n) Levaquin No Notes: Memoria 7-30 (Same l 21:00: as: n) Albuterol No Notes: Memori a 0.833 MG/ML 7-30 (Same as: 20:00: Duoneb) Ipratropium [place] 0.167 MG/ML Inhalant Solution [DuoNeb] Albuterol No Notes: Memori a 0.833 MG/ML 7-30 (Same as: 20:00: Duoneb) Ipratropium [place] 0.167 MG/ML Inhalant Solution [DuoNeb] Hydroxyzine Yes [...] 7-30 BID l de 1000 MG 19:52: Jasbir sitagliptin 50 MG Oral Tablet [Janumet ] Alprazolam Yes 1 mg, PO, Me moria 7-30 QID l 19:52: Escitalopra Yes 10 mg = 1 M emoria m 10 MG 7-30 tab, PO, l Oral Tablet 19:52: Daily Estelle nn [Lexapro] 00 predniSONE No See Memoria 10 mg oral 7-30 Special l tablet 19:52: Instructio Estelle nn 00 ns, PO, Daily, # 12 tab busPIRone Yes 10 mg = 1 Mem oria 10 mg oral 7-30 tab, PO, l tablet 19:52: TID Hydroxyzine Yes Special Mem oria Hydrochlori 7-30 [...] l oral tablet 19:52: ns: Chris n bedtime cephalexin No Special Isaak lauren 500 mg oral 7-30 Instructio l capsule 19:52: ns: PT HAS Herm jose a 3 DAYS LEFT TO TAKE THIS MED Metformin Yes 1 tab, PO, Me moria hydrochlori 7-30 BID l de 1000 MG 19:52: sitagliptin 50 MG Oral Tablet [Janumet ] Alprazolam Yes 1 mg, PO, Me moria 7-30 QID l 19:52: Escitalopra Yes 10 mg = 1 M emoria m 10 MG 7-30 tab, PO, l Oral Tablet 19:52: Daily Estelle nn [Lexapro] predniSONE No See Memoria 10 mg oral 7-30 Special l tablet 19:52: Instructio Estelle nn ns, PO, Daily, # 12 tab busPIRone Yes 10 mg = 1 Mem oria 10 mg oral 7-30 tab, PO, l tablet 19:52: TID Levaquin No Notes: Memoria 7-30 (Same l 19:00: as:Levaqui n) Levaquin No Notes: Memoria 7-30 (Same l 19:00: as:[facility] Jasbir 00 n) Insulin, No Notes: Memoria Aspart, 7-30 Roll in l Human 18:54: palms of [place] 00 hands gently; Do not shake vigorously . (Same as: NovoLOG) "single patient use only" Stable for 28 days at room temperatur e. Expires in days from ____Date Dextrose No 25 gm, 50 Isaak lauren 50% Syringe 7-30 mL, Route: l 18:54: IVP, Drug Jasbir 00 Form: INJ, Dosing Weight 72.727, kg, PRN, PRN Blood Glucose Results, Start date: 04/12/14 13:54:00, Duration: 30 day, Stop date: 05/12/14 13:53:00 Glucagon No 1 mg, Memoria 730 Route: IM, l 18:54: Drug form: Jasbir 00 PDR/INJ, PRN, Dosing Weight 72.727, kg, PRN Blood Glucose Results, Start date: 04/12/14 13:54:00, Duration: 30 day, Stop date: 05/12/14 13:53:00 Insulin, No Notes: Memoria Aspart, 7-30 Roll in l Human 18:54: palms of [place] 00 hands gently; Do not shake vigorously . (Same as: NovoLOG) "single patient use only" Stable for 28 days at room temperatur e. Expires in days from ____Date Dextrose No 25 gm, 50 Isaak lauren 50% Syringe 7-30 mL, Route: l 18:54: IVP, Drug [place] 00 Form: INJ, Dosing Weight 72.727, kg, PRN, PRN Blood Glucose Results, Start date: 04/12/14 13:54:00, Duration: 30 day, Stop date: 05/12/14 13:53:00 Glucagon No 1 mg, Memoria 730 Route: IM, l 18:54: Drug form: Jasbir 00 PDR/INJ, PRN, Dosing Weight 72.727, kg, PRN Blood Glucose Results, Start date: 04/12/14 13:54:00, Duration: 30 day, Stop date: 05/12/14 13:53:00 Acetaminoph No Notes: Isaak lauren en 325 MG / 7-30 (Same as: l Hydrocodone 18:50: [place] Estelle nn Bitartrate 00 325/5) Do 5 MG Oral not exceed Tablet 4gm/day of acetaminop hen. Acetaminoph No Notes: Do M emoria en 7-30 not exceed l 18:50: 4 gm/day. [place] 00 (Same as: Tylenol) Docusate No Notes: Memoria 7-30 (Same as: l 18:50: Colace) [place] (Do Not Crush) Ondansetron No Notes: Isaak lauren 7-30 (Same as: l 18:50: Zofran) Jasbir Acetaminoph No Notes: Isaak lauren en 325 MG / 7-30 (Same as: l Hydrocodone 18:50: [place] Estelle nn Bitartrate 00 325/5) Do 5 MG Oral not exceed Tablet 4gm/day of acetaminop hen. Acetaminoph No Notes: Do M emoria en 7-30 not exceed l 18:50: 4 gm/day. [place] 00 (Same as: Tylenol) Docusate No Notes: Memoria 7-30 (Same as: l 18:50: Colace) [place] (Do Not Crush) Ondansetron No Notes: Isaak lauren 7-30 (Same as: l 18:50: Zofran) Jasbir 00 Albuterol No Notes: Memori a 0.833 MG/ML 7-30 (Same as: l / 17:43: Duoneb) [place] Ipratropium 00 [place] 0.167 MG/ML Inhalant Solution [DuoNeb] Albuterol No Notes: Memori a 0.833 MG/ML 7-30 (Same as: l / 17:43: Duoneb) Jasbir Ipratropium 00 [place] 0.167 MG/ML Inhalant Solution [DuoNeb] Ondansetron No Notes: Isaak lauren 7-30 (Same as: l 16:06: Zofran) Ondansetron No Notes: Isaak lauren 7-30 (Same as: l 16:06: Zofran) pramipexole Yes .125mg [id number] Take 0.[address] [facility] [address] (MIRAPEX) 7-28 [id number] mg by Fariba es 0.125 MG 17:05: 3D mouth 3 Medica l tablet 25 (three) Center times daily. Pt was prescribed this medication and then stopped taking it suddenly 2 months ago. (Per family) pramipexole Yes .125mg [id number] Take 0.[address] [facility] [address] (MIRAPEX) 7-28 [id number] mg by Fariba es 0.125 MG 17:05: 3D mouth 3 Medica l tablet 25 (three) Center times daily. Pt was prescribed this medication and then stopped taking it suddenly 2 months ago. (Per family) Bactrim DS 2011-09 Yes Loann The 1 tab, PO, Memoria oral tablet 0-09 Jessica BID, 14 l 19:53: tab, Jasbir 30 Substituti on Allowed, Maintenanc e Bactrim DS 2011-09 Yes Loann The 1 tab, PO, Memoria oral tablet 0-09 Jessica BID, 14 l 19:53: tab, Jasbir 30 Substituti on Allowed, Maintenanc e Sodium 2011-09 No Loann The 250 mL, Mem oria Chloride 0-09 Jessica Rate: 250 l 0.9% IV 250 17:41: ml/hr, Herm jose a mL 00 Infuse over: 1 hr, Route: IV, kg, Total Volume: 250, Start date: 06/22/12 12:41:00, Duration: 30 day, Stop date: 07/22/12 11:40:00 Saline 2011-09 No Loann The 5 ml, Memor ia Flush 0.9% 009 Jessica Route: l 17:41: IVP, Drug Jasbir 00 Form: INJ, Dosing Weight 67.727, kg, PRN, PRN Line Flush, Start date: 06/22/12 12:41:00, Duration: 24 hr, Stop date: 06/23/12 12:40:00 Sodium 2011-09 No Loann The 250 mL, Mem oria Chloride 0 Jessica Rate: 250 l 0.9% IV 250 17:41: ml/hr, Herm jose a mL 00 Infuse over: 1 hr, Route: IV, kg, Total Volume: 250, Start date: 06/22/12 12:41:00, Duration: 30 day, Stop date: 07/22/12 11:40:00 Saline 2011-09 No Loann The 5 ml, Memor ia Flush 0.9% 0 Jessica Route: l 17:41: IVP, Drug [place] Form: INJ, Dosing Weight 67.727, kg, PRN, PRN Line Flush, Start date: 06/22/12 12:41:00, Duration: 24 hr, Stop date: 06/23/12 12:40:00 Prinivil No Spencer H 5 mg, 1 M emoria 06-12 Trina tab, l 14:00: Route: PO, Jasbir Drug form: TAB, Daily, Start date: 06/12/12 9:00:00, Duration: 30 day, Stop date: 07/11/12 9:00:00 Prinivil 2011-0 No Spencer H 5 mg, 1 M emoria 06-12 Chelan tab, l 14:00: Route: PO, Jasbir 00 Drug form: TAB, Daily, Start date: 06/12/12 9:00:00, Duration: 30 day, Stop date: 07/11/12 9:00:00 Protonix 2011-0 No Tatianna 40 mg, 1 Me moria 06-11 Iliskovic- tab, l 21:30: Zacarias Route: PO, Estelle nn 00 Drug form: ECTAB, Before Dinner, Start date: 06/11/12 16:30:00, Duration: 30 day, Stop date: 07/10/12 16:30:00 Protonix 2011-0 No Tatianna 40 mg, 1 Me moria 06-11 Iliskovic- tab, l 21:30: Zacarias Route: PO, Estelle nn 00 Drug form: ECTAB, Before Dinner, Start date: 06/11/12 16:30:00, Duration: 30 day, Stop date: 07/10/12 16:30:00 metoprolol 2011-0 No Spencer H 25 mg, 1 Memoria 06-11 [place] tab, l 19:00: Route: PO, Jasbir 00 Drug form: ERTAB, Daily, Start date: 06/11/12 14:00:00, Duration: 30 day, Stop date: 07/11/12 9:00:00 Prinivil 2011-0 No Spencer H 2.5 mg, M emoria 06-11 Trina 0.5 tab, l 19:00: Route: PO, [place] 00 Drug form: TAB, ONCE, Start date: 06/11/12 14:00:00, Stop date: 06/11/12 14:00:00 metoprolol 2011-0 No Spencer H 25 mg, 1 Memoria 06-11 [place]an tab, l 19:00: Route: PO, [place] 00 Drug form: ERTAB, Daily, Start date: 06/11/12 14:00:00, Duration: 30 day, Stop date: 07/11/12 9:00:00 Prinivil 2011-0 No Spencer H 2.5 mg, M emoria 06-11 Chelan 0.5 tab, l 19:00: Route: PO, Jasbir 00 Drug form: TAB, ONCE, Start date: 06/11/12 14:00:00, Stop date: 06/11/12 14:00:00 Restoril 2011-0 No Spencer H 15 mg, 1 Memoria 06-11 Trina cap, l 05:05: Route: PO, [place] 00 Drug form: CAP, Bedtime, PRN Sleep, Start date: 06/11/12 0:05:00, Duration: 30 day, Stop date: 07/11/12 0:04:00 Restoril 2011-0 No Spencer H 15 mg, 1 Memoria 06-11 Trina cap, l 05:05: Route: PO, Drug form: CAP, Bedtime, PRN Sleep, Start date: 06/11/12 0:05:00, Duration: 30 day, Stop date: 07/11/12 0:04:00 Protonix 2011-0 No Tatianna 40 mg, Isaak lauren 06-10 Karliovic- Route: l 20:00: Zacarias IVP, Drug Chris n 00 form: INJ, ONCE, Start date: 06/10/12 15:00:00, Stop date: 06/10/12 15:00:00 Protonix 2011-0 No Tatianna 40 mg, Isaak lauren 06-10 Karliovic- Route: l 20:00: Zacarias IVP, Drug Chris n 00 form: INJ, ONCE, Start date: 06/10/12 15:00:00, Stop date: 06/10/12 15:00:00 folic acid 0 No Gnananandh 1 mg, 1 Memoria 1 mg oral 06-10 Mary tab, l tablet 14:00: Route: GTPolloa nn Drug form: TAB, Daily, Start date: 06/10/12 9:00:00, Duration: 30 day, Stop date: 07/09/12 9:00:00 Vitamin B1 2011- No Gnananandh 100 mg, 1 Memoria 06-10 Mary tab, l 14:00: Route: NGJasbir 00 Drug form: TAB, Daily, Start date: 06/10/12 9:00:00, Duration: 30 day, Stop date: 07/09/12 9:00:00 Prinivil 2011-0 No Spencer H 2.5 mg, M emoria 06-10 Chelan 0.5 tab, l 14:00: Route: PO, [place] 00 Drug form: TAB, Daily, Start date: 06/10/12 9:00:00, Duration: 30 day, Stop date: 07/09/12 9:00:00 folic acid 2011-0 No Gnananandh 1 mg, 1 Memoria 1 mg oral 06-10 Mary tab, l tablet 14:00: Route: GTPolloa nn Drug form: TAB, Daily, Start date: 06/10/12 9:00:00, Duration: 30 day, Stop date: 07/09/12 9:00:00 Vitamin B1 2011-0 No Gnananandh 100 mg, 1 Memoria 06-10 Mary tab, l 14:00: Route: NG, [place] 00 Drug form: TAB, Daily, Start date: 06/10/12 9:00:00, Duration: 30 day, Stop date: 07/09/12 9:00:00 Prinivil 2011-0 No Spencer H 2.5 mg, M kari 06-10 Trina 0.5 tab, l 14:00: Route: PO, [place] 00 Drug form: TAB, Daily, Start date: 06/10/12 9:00:00, Duration: 30 day, Stop date: 07/09/12 9:00:00 Paxil 2011-0 No Spencer H 45 mg, [facility] ia 06-09 Trina 2.25 tab, l 23:00: Route: PO, [place] 00 Drug form: TAB, Daily, Start date: 06/09/12 18:00:00, Duration: 30 day, Stop date: 07/09/12 9:00:00 Paxil 2011-0 No Spencer H 45 mg, [facility] ia 06-09 Chelan 2.25 tab, l 23:00: Route: PO, [place] 00 Drug form: TAB, Daily, Start date: 06/09/12 18:00:00, Duration: 30 day, Stop date: 07/09/12 9:00:00 Glucophage 2011-0 No Spencer H 500 mg, 1 [facility] XR 06-09 Trina tab, l 22:00: Route: PO, Jasbir 00 Drug form: ERTAB, BID-Before Meals, Start date: 06/09/12 17:00:00, Duration: 30 day, Stop date: 07/09/12 16:30:00 Pravachol 2011-0 No Spencer H 25 mg, 2.5 [facility] 06-09 Chelan tab, l 22:00: Route: PO, [place] 00 Drug form: TAB, QPM, Start date: 06/09/12 17:00:00, Duration: 30 day, Stop date: 07/08/12 17:00:00 cefazolin + 2011-0 No Spencer H 1 gm, [facility] Sodium 06-09 Chelan Route: l Chloride 22:00: IVPB, [place] 0.9% IV 100 00 [id number], mL Start date: 06/09/12 17:00:00, Duration: 24 hr, Stop date: 06/10/12 9:00:00 chlordiazep 2011-0 No Spencer H 25 mg, 1 [facility] oxide 25 mg 9-26 Trina cap, l oral 22:00: Route: PO, Jasbir capsule 00 Drug form: CAP, TID, Start date: 06/09/12 17:00:00, Duration: 30 day, Stop date: 07/09/12 13:00:00 Glucophage 2012-0 No Spencer H 500 mg, 1 [facility] XR 9- Trina tab, l 22:00: Route: PO, [place] 00 Drug form: ERTAB, BID-Before Meals, Start date: 06/09/12 17:00:00, Duration: 30 day, Stop date: 07/09/12 16:30:00 Pravachol 2012-0 No Spencer H 25 mg, 2.5 [facility]oria 9-26 Chelan tab, l 22:00: Route: PO, Jasbir 00 Drug form: TAB, QPM, Start date: 06/09/12 17:00:00, Duration: 30 day, Stop date: 07/08/12 17:00:00 cefazolin + 2011-0 No Spencer H 1 gm, [facility] Sodium 9-26 Trina Route: l Chloride 22:00: IVPB, Jasbir 0.9% IV 100 00 [id number], mL Start date: 06/09/12 17:00:00, Duration: 24 hr, Stop date: 06/10/12 9:00:00 chlordiazep 2012-0 No Spencer H 25 mg, 1 [facility] oxide 25 mg 9-26 Chelan cap, l oral 22:00: Route: PO, [place] capsule 00 Drug form: CAP, TID, Start date: 06/09/12 17:00:00, Duration: 30 day, Stop date: 07/09/12 13:00:00 Glucotrol 2011-0 No Spencer H 20 mg, 2 [facility]oria 9-26 Trina tab, l 21:30: Route: PO, [place] 00 Drug form: TAB, BID-Before Meals, Start date: 06/09/12 16:30:00, Duration: 30 day, Stop date: 07/09/12 7:30:00 Glucotrol 2011-0 No Spencer H 20 mg, 2 [facility] 9-26 Chelan tab, l 21:30: Route: PO, Jasbir 00 [...] Spencer H 1,000 mL, [facility]oria 20mEq/L 06-09 Chelan Rate: 60 l 1000ml 17:09: ml/hr, Jasbir (Premix) 00 Infuse 1,000 mL over: 16.7 hr, Route: IV, kg, Total Volume: 1,000, Start date: 06/09/12 12:09:00, Duration: 30 day, Stop date: 07/09/12 12:08:00 acetaminoph No Spencer H 2 tab, [facility] en-hydrocod 06-09 Chelan Route: PO, l one 325 17:09: Drug Form: Herm jose a mg-5 mg 00 TAB, Q4H, oral tablet PRN Pain, Start date: 06/09/12 12:09:00, Duration: 30 day, Stop date: 07/09/12 12:08:00 1/2NS + KCL No Spencer H 1,000 mL, [facility] 20mEq/L 06-09 Trina Rate: 60 l 1000ml 17:09: ml/hr, Jasbir [...] doses or times, Stop date: 06/10/12 1:06:00 NS 500 mL 2011- No Fernando 500 mL, Me moria 06-09 Dante Rate: 30 l 13:25: Gallacher ml/hr, Chris n 00 Infuse over: 16.7 hr, Route: INTRAARTER IAL, kg, Total Volume: 500, Start date: 06/09/12 8:25:00, Duration: 1 doses or times, Stop date: 06/10/12 1:06:00 Lactated 2011-0 No Spencer H 1,000 mL, [facility]oria Ringers IV 06-09 Trina Rate: 100 l 1,000 mL 12:32: ml/hr, [place] 00 Infuse over: 10 hr, Route: IV, kg, Total Volume: 1,000, Start date: 06/09/12 7:32:00, Duration: 1 doses or times, Stop date: 06/09/12 17:31:00 Lactated 2011-0 No Spencer H 1,000 mL, [facility] Ringers IV 06-09 Chelan Rate: 100 l 1,000 mL 12:32: ml/hr, [place] 00 Infuse over: 10 hr, Route: IV, [...] 1 minutes, Stop date: 06/07/12 6:00:00 lidocaine 2011-0 No Spencer H 0.1 mL, [facility]oria 06-07 Trina Route: l 11:00: INJ, Drug [place] 00 form: INJ, ONCALL, Start date: 06/07/12 6:00:00, Duration: 1 minutes, Stop date: 06/07/12 6:00:00 cefazolin + No Spencer H 1 gm, [facility] Sodium 06-07 Trina Route: l Chloride 11:00: IVPB, [place] 0.9% IV 100 00 ONCALL, mL Start date: 06/07/12 6:00:00, Duration: 1 doses or times Lactated No Spencer H 1,000 mL, [facility]oria Ringers 06-07 Trina Rate: 100 l Injection 11:00: ml/hr, Chris n IV 1,000 mL 00 Infuse over: 10 hr, Route: IV, kg, Total Volume: 1,000, Start date: 06/07/12 6:00:00, Duration: 1 minutes, Stop date: 06/07/12 6:00:00 lidocaine 2011- No Spencer H 0.1 mL, [facility]oria 06-07 Trina Route: l 11:00: INJ, Drug Jasbir 00 form: INJ, ONCALL, Start date: 06/07/12 6:00:00, Duration: 1 minutes, Stop date: 06/07/12 6:00:00 cefazolin + No Spencer H 1 gm, [facility] Sodium 06-07 Chelan Route: l Chloride 11:00: IVPB, [place] 0.9% IV 100 00 ONCALL, mL Start date: 06/07/12 6:00:00, Duration: 1 doses or times Immunizations Ordered Immunization Filled Immunization Date Status Commen ts Source Name Name pneumococcal 2014-04-13 Completed [facility] 23-valent vaccine 14:14:00 [place] pneumococcal 2014-04-13 Completed [facility] 23-valent vaccine 14:14:00 [place] Vital Signs Vital Name Observation Time Observation Value Comments Source Temperature Oral (F) 2019-12-06 18:24:00 98.4 F [facility] [place] Heart Rate 2019-12-06 18:24:00 [facility] [place] Respitory Rate 2019-12-06 18:24:00 [facility] al [place] Systolic (mm Hg) 2019-12-06 18:24:00 Isaak rial Jasb[place] Diastolic (mm Hg) 2019-12-06 18:24:00 Mem o[facility] [place] Temperature Oral (F) 2019-12-06 13:38:00 98.2 F [facility] [place] Heart Rate 2019-12-06 13:38:00 [facility] [place] Respitory Rate 2019-12-06 13:38:00 [facility] al [place] Systolic (mm Hg) 2019-12-06 13:38:00 Isaak rial Jasb[place] Diastolic (mm Hg) 2019-12-06 13:38:00 Mem orial [place] Temperature Oral (F) 2019-12-06 09:53:00 98.5 F [facility] [place] Systolic (mm Hg) 2019-12-06 09:53:00 Isaak rial Jasbir Diastolic (mm Hg) 2019-12-06 09:53:00 Mem orial [place] Respitory Rate 2019-12-06 09:53:00 [facility] [place] Heart Rate 2019-12-06 09:53:00 [facility] [place] Height 2019-12-05 20:15:00 152.4 cm [facility] Weight 2019-12-05 20:15:00 [facility] [place] BMI Calculated 2019-12-05 20:15:00 [facility] [place] Height 2019-12-05 15:20:00 172.72 cm [facility] [place] BMI Calculated 2019-12-05 15:20:00 [facility] [place] Weight 2019-12-05 15:20:00 [facility] [place] Respitory Rate 2019-11-19 04:24:00 [facility] al [place] Systolic (mm Hg) 2019-11-19 04:24:00 Isaak rial Jasb[place] Diastolic (mm Hg) 2019-11-19 04:24:00 Mem orial [place] Respitory Rate 2019-11-19 03:15:00 [facility] al [place] Systolic (mm Hg) 2019-11-19 03:15:00 Isaak rial J[place] Diastolic (mm Hg) 2019-11-19 03:15:00 Mem o[facility] [place] Respitory Rate 2019-11-19 02:18:00 [facility] al [place] Systolic (mm Hg) 2019-11-19 02:18:00 Isaak rial [place] Diastolic (mm Hg) 2019-11-19 02:18:00 [facility] o[facility] [place] BMI Calculated 2019-11-19 00:25:00 [facility] [place] Heart Rate 2019-11-18 23:55:00 [facility] [place] Temperature Oral (F) 2019-11-18 23:55:00 97.4 F [facility] [place] Height 2019-11-18 23:55:00 152.4 cm [facility] [place] BMI Calculated 2019-11-18 23:55:00 [facility] [place] Weight 2019-11-18 23:55:00 [facility] [place] Temperature Oral (F) 2019-10-25 22:43:00 98.4 F [facility] [place] Heart Rate 2019-10-25 22:43:00 [facility] [place] Respitory Rate 2019-10-25 22:43:00 [facility] [place] Systolic (mm Hg) 2019-10-25 22:43:00 Isaak rial [place] Diastolic (mm Hg) 2019-10-25 22:43:00 Mem o[facility] [place] Temperature Oral (F) 2019-10-25 14:12:00 97.9 F [facility] [place] Heart Rate 2019-10-25 14:12:00 [facility] [place] Respitory Rate 2019-10-25 14:12:00 [facility] [place] Systolic (mm Hg) 2019-10-25 14:12:00 Isaak rial Jasb[place] Diastolic (mm Hg) 2019-10-25 14:12:00 Mem orial [place] Temperature Oral (F) 2019-10-25 09:56:00 98.2 F [facility] [place] Heart Rate 2019-10-25 09:56:00 [facility] [place] Respitory Rate 2019-10-25 09:56:00 [facility] al [place] Systolic (mm Hg) 2019-10-25 09:56:00 Isaak rial J[place] Diastolic (mm Hg) 2019-10-25 09:56:00 Mem orial [place] Height 2019-10-21 06:11:00 152.4 cm [facility] [place] Weight 2019-10-21 06:11:00 [facility] [place] BMI Calculated 2019-10-21 06:11:00 [facility] al [place] Height 2019-10-20 18:05:00 152.4 cm [facility] [place] BMI Calculated 2019-10-20 18:05:00 [facility] [place] Weight 2019-10-20 18:05:00 [facility] [place] Temperature Oral (F) 2019-10-05 17:27:00 98.1 F [facility] [place] Heart Rate 2019-10-05 17:27:00 [facility] [place] Respitory Rate 2019-10-05 17:27:00 [facility] al [place] Systolic (mm Hg) 2019-10-05 17:27:00 Isaak rial [place] Diastolic (mm Hg) 2019-10-05 17:27:00 Mem orial [place] Temperature Oral (F) 2019-10-05 13:12:00 97.9 F [facility] [place] Heart Rate 2019-10-05 13:12:00 [facility] [place] Respitory Rate 2019-10-05 13:12:00 [facility] al [place] Systolic (mm Hg) 2019-10-05 13:12:00 Isaak rial Jasb[place] Diastolic (mm Hg) 2019-10-05 13:12:00 Mem o[facility] [place] Temperature Oral (F) 2019-10-05 10:19:00 97.5 F [facility] [place] Heart Rate 2019-10-05 10:19:00 [facility] [place] Respitory Rate 2019-10-05 10:19:00 [facility] al [place] Systolic (mm Hg) 2019-10-05 10:19:00 Isaak rial [place] Diastolic (mm Hg) 2019-10-05 10:19:00 [facility] o[facility] [place] Height 2019-10-04 04:10:00 152.4 cm [facility] [place] Weight 2019-10-04 04:10:00 [facility] [place] BMI Calculated 2019-10-04 04:10:00 [facility] [place] Height 2019-10-03 19:36:00 152.4 cm [facility] [place] BMI Calculated 2019-10-03 19:36:00 [facility] [place] Weight 2019-10-03 19:36:00 [facility] [place] Respitory Rate 2018-09-08 05:21:00 [facility] [place] Temperature Oral (F) 2018-09-08 05:21:00 98.0 F [facility] [place] Systolic (mm Hg) 2018-09-08 05:21:00 Isaak rial J[place] Diastolic (mm Hg) 2018-09-08 05:21:00 Mem o[facility] [place] Heart Rate 2018-09-08 05:21:00 [facility] [place] BMI Calculated 2018-09-08 01:37:00 [facility] al [place] Weight 2018-09-08 01:37:00 [facility] [place] Height 2018-09-08 01:37:00 152.4 cm [facility] [place] Heart Rate 2018-09-08 01:37:00 [facility] [place] Systolic (mm Hg) 2018-09-08 01:37:00 Isaak rial [place] Diastolic (mm Hg) 2018-09-08 01:37:00 Mem o[facility] [place] Temperature Oral (F) 2018-09-08 01:37:00 98.2 F [facility] [place] Respitory Rate 2018-09-08 01:37:00 [facility] al [place] Systolic (mm Hg) 2018-05-31 20:22:00 Isaak rial J[place] Diastolic (mm Hg) 2018-05-31 20:22:00 Mem o[facility] [place] Respitory Rate 2018-05-31 20:22:00 [facility] al [place] Systolic (mm Hg) 2018-05-31 19:33:00 Isaak rial J[place] Diastolic (mm Hg) 2018-05-31 19:33:00 [facility] o[facility] [place] Heart Rate 2018-05-31 19:33:00 [facility] [place] Respitory Rate 2018-05-31 19:33:00 [facility] al [place] Respitory Rate 2018-05-31 19:02:00 [facility] [place] Heart Rate 2018-05-31 19:02:00 [facility] [place] Temperature Oral (F) 2018-05-31 19:02:00 98 F [facility] [place] Systolic (mm Hg) 2018-05-31 19:02:00 Isaak rial [place] Diastolic (mm Hg) 2018-05-31 19:02:00 [facility] o[facility] [place] Heart Rate 2018-05-31 18:39:00 [facility] [place] Temperature Oral (F) 2018-05-31 18:39:00 98.1 F [facility] [place] Height 2018-05-31 18:39:00 152.4 cm [facility] [place] BMI Calculated 2018-05-31 18:39:00 [facility] [place] Weight 2018-05-31 18:39:00 [facility] [place] Temperature Oral (F) 2016-12-10 10:30:00 98.2 F [facility] [place] Respitory Rate 2016-12-10 10:00:00 [facility] al [place] Systolic (mm Hg) 2016-12-10 10:00:00 Isaak rial [place] Diastolic (mm Hg) 2016-12-10 10:00:00 [facility] o[facility] [place] Systolic (mm Hg) 2016-12-10 09:38:00 Isaak rial J[place] Diastolic (mm Hg) 2016-12-10 09:38:00 [facility] o[facility] [place] Heart Rate 2016-12-10 09:38:00 [facility] [place] Respitory Rate 2016-12-10 09:38:00 [facility] [place] Respitory Rate 2016-12-10 08:30:00 [facility] al [place] Systolic (mm Hg) 2016-12-10 08:30:00 Isaak rial [place] Diastolic (mm Hg) 2016-12-10 08:30:00 [facility] o[facility] [place] Heart Rate 2016-12-10 07:36:00 [facility] [place] BMI Calculated 2016-12-10 06:38:00 [facility] [place] Weight 2016-12-10 06:38:00 [facility] [place] Height 2016-12-10 06:38:00 152.4 cm [facility] [place] Temperature Oral (F) 2016-12-10 06:38:00 98.1 F [facility] [place] Heart Rate 2016-12-10 06:38:00 [facility] [place] Respitory Rate 2015-06-09 10:52:00 [facility] [place] Heart Rate 2015-06-09 10:52:00 [facility] [place] Systolic (mm Hg) 2015-06-09 10:52:00 Isaak rial J[place] Diastolic (mm Hg) 2015-06-09 10:52:00 [facility] o[facility] [place] Systolic (mm Hg) 2015-06-09 10:24:00 Isaak rial J[place] Diastolic (mm Hg) 2015-06-09 10:24:00 [facility] o[facility] [place] Heart Rate 2015-06-09 10:24:00 [facility] [place] Respitory Rate 2015-06-09 10:24:00 [facility] al [place] BMI Calculated 2015-06-09 06:12:00 [facility] [place] Weight 2015-06-09 06:12:00 [facility] [place] Height 2015-06-09 06:12:00 152.4 cm [facility] Systolic (mm Hg) 2015-06-09 06:12:00 Isaak rial J[place] Diastolic (mm Hg) 2015-06-09 06:12:00 [facility] o[facility] [place] Respitory Rate 2015-06-09 06:12:00 [facility] al [place] Heart Rate 2015-06-09 06:12:00 [facility] [place] Temperature Oral (F) 2015-06-09 06:12:00 97.7 F [facility] [place] Respitory Rate 2015-04-06 12:57:00 [facility] al [place] Systolic (mm Hg) 2015-04-06 12:57:00 Isaak rial J[place] Diastolic (mm Hg) 2015-04-06 12:57:00 Mem o[facility] [place] Systolic (mm Hg) 2015-04-06 11:00:00 Isaak rial J[place] Diastolic (mm Hg) 2015-04-06 11:00:00 [facility] o[facility] [place] Respitory Rate 2015-04-06 11:00:00 [facility] al [place] Systolic (mm Hg) 2015-04-06 10:00:00 Isaak rial J[place] Diastolic (mm Hg) 2015-04-06 10:00:00 [facility] o[facility] [place] Respitory Rate 2015-04-06 10:00:00 [facility] [place] Temperature Oral (F) 2015-04-06 09:00:00 98 F [facility] Temperature Oral (F) 2015-04-06 04:00:00 98 F [facility] [place] Weight 2015-04-06 02:08:00 [facility] [place] BMI Calculated 2015-04-06 02:08:00 [facility] al [place] Heart Rate 2015-04-06 02:08:00 [facility] [place] Height 2015-04-06 02:08:00 154.94 cm [facility] [place] Diastolic (mm Hg) 2014-04-17 00:30:00 [facility] o[facility] [place] Respitory Rate 2014-04-17 00:30:00 Memori al J[place] Systolic (mm Hg) 2014-04-17 00:30:00 Isaak rial [place] Heart Rate 2014-04-17 00:30:00 [facility] [place] Temperature Oral (F) 2014-04-17 00:30:00 98.4 F [facility] [place] Respitory Rate 2014-04-16 21:00:00 [facility] al [place] Diastolic (mm Hg) 2014-04-16 21:00:00 Mem o[facility] [place] Systolic (mm Hg) 2014-04-16 21:00:00 Isaak rial [place] Temperature Oral (F) 2014-04-16 21:00:00 98.0 F [facility] [place] Heart Rate 2014-04-16 21:00:00 [facility] [place] Systolic (mm Hg) 2014-04-16 16:04:00 Isaak rial [place] Temperature Oral (F) 2014-04-16 16:04:00 98.0 F [facility] [place] Heart Rate 2014-04-16 16:04:00 [facility] [place] Diastolic (mm Hg) 2014-04-16 16:04:00 Mem o[facility] [place] Respitory Rate 2014-04-16 13:00:00 [facility] al [place] Weight 2014-04-12 19:42:00 [facility] [place] BMI Calculated 2014-04-12 19:42:00 [facility] al [place] Height 2014-04-12 19:42:00 152.4 cm [facility] [place] Weight 2014-04-12 15:41:00 [facility] BMI Calculated 2014-04-12 15:41:00 [facility] al [place] Height 2014-04-12 15:41:00 152.4 cm [facility] [place] Weight 2012-06-22 17:39:00 [facility] Height 2012-06-22 17:39:00 152.40 cm [facility] [place] Diastolic (mm Hg) 2012-06-11 19:41:00 Mem orial [place] Heart Rate 2012-06-11 19:41:00 [facility] [place] Systolic (mm Hg) 2012-06-11 19:41:00 Isaak rial J[place] Systolic (mm Hg) 2012-06-11 17:20:00 Isaak rial [place] Diastolic (mm Hg) 2012-06-11 17:20:00 Mem o[facility] [place] Temperature Oral (F) 2012-06-11 16:25:00 99.0 F [facility] [place] Diastolic (mm Hg) 2012-06-11 16:25:00 Mem orial [place] Systolic (mm Hg) 2012-06-11 16:25:00 Isaak rial [place] Heart Rate 2012-06-11 16:25:00 [facility] [place] Respitory Rate 2012-06-11 16:25:00 [facility] al [place] Temperature Oral (F) 2012-06-11 12:22:00 98.4 F [facility] [place] Heart Rate 2012-06-11 12:22:00 [facility] [place] Respitory Rate 2012-06-11 12:22:00 [facility] [place] Respitory Rate 2012-06-11 09:00:00 Memori al [place] Temperature Oral (F) 2012-06-11 09:00:00 98.2 F [facility] [place] Weight 2012-05-31 18:54:00 [facility] [place] Height 2012-05-31 18:54:00 152.40 cm [facility] [place] Procedures Procedure Date / Time Performed Performing Clinician Sourc e Endarterectomy [facility] Plan of Care Planned Activity Planned Date Details Comments Source Future Scheduled 2022-08-30 COVID-19 VACCINE (#1) [facility] Test 06:08:20 [code = COVID-19 VACCINE (#1)] Future Scheduled 2022-08-30 COLONOSCOPY SCREENING [facility] Test 06:08:20 [code = COLONOSCOPY SCREENING] Future Scheduled 2022-08-30 SHINGLES VACCINES (1 [facility] Test 06:08:20 of 2) [code = SHINGLES VACCINES (1 of 2)] Future Scheduled 2022-08-30 65+ [facility] 06:08:20 VACCINE (1 - PCV) [code = 65+ PNEUMOCOCCAL VACCINE (1 - PCV)] Future Scheduled 2022-08-30 INFLUENZA VACCINE [facility] 06:08:20 [code = INFLUENZA VACCINE] Future Scheduled 2022-07-19 HEPATITIS B VACCINES [facility] Test 19:16:01 (1 of 3 - 3-dose series) [code = HEPATITIS B VACCINES (1 of 3 - 3-dose series)] Future Scheduled 2022-07-19 COVID-19 VACCINE (#1) [facility] Test 19:16:01 [code = COVID-19 VACCINE (#1)] Future Scheduled 2022-07-19 COLONOSCOPY SCREENING [facility] Test 19:16:01 [code = COLONOSCOPY SCREENING] Future Scheduled 2022-07-19 SHINGLES VACCINES (1 [facility] Test 19:16:01 of 2) [code = SHINGLES VACCINES (1 of 2)] Future Scheduled 2022-07-19 65+ [facility]OCOCCAL [facility] Test 19:16:01 VACCINE (1 - PCV) [code = 65+ PNEUMOCOCCAL VACCINE (1 - PCV)] Future Scheduled 2022-07-19 INFLUENZA VACCINE [facility] Test 19:16:01 [code = INFLUENZA VACCINE] Encounters Start End Encounter Admission Attending Care Care Encounter Source Date/Time Date/Time Type Type Clinicians Facility Department ID 2022-08-14 2022-08-18 Inpatient EM LIBERTY Rousseau [facility] [id number] [facility] 19:48:00 16:59:[address] 2022-03-25 2022-03-25 Emergency EM Cm, HCANW ADRIAN [id number] [facility] 16:56:00 20:49:00 Román [facility] 2022-03-25 2022-03-25 Emergency EM Cm, HCANW HCANW [id number] [facility] 16:56:00 20:49:00 Román [id number] [facility] 2019-12-05 2019-12-06 Inpatient [facility] [id number] [facility] 15:17:39 20:00:00 pj Martell [address] 2019-12-05 2019-12-06 [facility]patient [facility] [id number] [facility] 15:17:39 20:00:00 pj Martell [address] 2019-12-05 2019-12-06 Inpatient E REY [facility] [id number] TW 13:24:00 15:00:00 [place] 2019-12-05 2019-12-06 Outpatient DIANDRA Benson [facility] [id number] 10:17:39 15:00:00 [place] 2019-11-18 2019-11-19 Emergency [facility] [id number] [facility]oria 23:53:49 05:18:00 pj Martell [address] 2019-11-18 2019-11-19 Emergency [facility] [id number] [facility] 23:53:49 05:18:00 pj Martell [address] 2019-11-18 2019-11-18 Outpatient DIANDRA La [facility] [id number] 17:53:49 [facility]:18[facility] [address] [place] [address] 2019-11-18 2019-11-18 Emergency E REY LA T [id number] T 17:53:00 23:18:00 [facility] [place] 2019-10-20 2019-10-26 Inpatient [facility] [id number] [facility] 18:04:11 02:32:00 pj Martell [address] 2019-10-20 2019-10-26 Inpatient [facility] [id number] [facility] 18:04:11 02:32:00 r Jasbir The 10 [facility] 2019-10-20 2019-10-25 Outpatient DIANDRA Gorman [facility] [id number] 12:04:11 20:32:00 Rohan 10 2019-10-21 2019-10-20 Inpatient E [facility] [id number] MHTW 14:53:00 19:36:00 2019-10-03 2019-10-05 Inpatient [facility] [id number] [facility] 19:36:06 23:00:00 pj Martell The [address] [place] [address] 2019-10-03 2019-10-05 Inpatient [facility] [id number] [facility] 19:36:06 23:00:00 pj Martell The [address] [place] [address] 2019-10-03 2019-10-05 Outpatient HarmonElena [facility] [id number] 13:36:06 17:00:00 09 2019-10-03 2019-10-03 Inpatient E [facility] [id number] MHTW 16:40:00 13:36:00 2018-09-08 2018-09-08 Emergency [facility] [id number] [facility] 01:21:00 05:22:00 pj Martell [address] [place] [address] 2018-09-08 2018-09-08 Emergency [facility] [id number] [facility] 01:21:00 05:22:00 pj Martell 08 [facility] 2018-09-07 2018-09-07 Outpatient Justyna, MHSE [facility] [id number] 19:21:00 23:22:00 Parker Tian 08 2018-09-07 2018-09-07 Emergency E MHSE [facility]SE [id number] 19:21:00 19:21:00 [facility] 2018-05-31 2018-05-31 Emergency [facility] [id number] [facility] 18:38:00 20:52:00 pj Avila [address] [place] [address] 2018-05-31 2018-05-31 Emergency [facility] [id number] [facility] 18:38:00 20:52:00 pj Avila [address] [place] [address] 2018-05-31 2018-05-31 Outpatient Hannah Gonzalez [facility] [id number] 13:38:00 15:52:00 Dori Meyer 2016-12-10 2016-12-10 Emergency [facility] [id number] [facility] 06:34:00 10:45:00 pj Martell The 06 [facility] 2016-12-10 2016-12-10 Emergency [facility] [id number] [facility]oria 06:34:00 10:45:00 pj Martell The 06 [facility] 2016-12-10 2016-12-10 Outpatient DIANDRA Hurd [facility] [id number] 01:34:00 05:45:00 Salima Jaylan 06 2015-06-09 2015-06-09 EC [facility] [id number] [facility] 06:10:00 10:57:00 Emergency r Jasbir [address] 2015-06-09 2015-06-09 [facility] [id number] [facility] 06:10:00 10:57:00 Emergency r Jasbir [address] 2015-06-09 2015-06-09 Outpatient DIANDRA Seaman [facility] [id number] 01:10:00 05:57:00 Syd Guevara 2015-04-06 2015-04-06 [facility] [id number] [facility] 02:07:00 13:50:00 Emergency r Jasbir The 04 [facility] 2015-04-06 2015-04-06 EC [facility] [id number] [facility] 02:07:00 13:50:00 Emergency r Jasbir [facility] 04 [facility] 2015-04-05 2015-04-06 Outpatient DIANDRA Carbajal [facility] [id number] 21:07:00 08:50:00 Vargas 04 2014-04-12 2014-04-17 Inpatient [facility] [id number] [facility] 15:37:00 01:00:00 pj Martell [facility] 2014-04-12 2014-04-17 Inpatient [facility] [id number] [facility] 15:37:00 01:00:00 r Jasbir [facility] 2014-04-12 2014-04-16 Outpatient Fern Del Angel [id number] 10:37:00 20:00:00 Toya [id number] 2012-06-22 Emergency nullFlavo The [id number] [facility] 12:37:00 15:22:00 r Heimdal 02 darlene Martell 2012-06-22 2012-06-22 Emergency nullFlavo The [id number] Memoria 12:37:00 15:22:00 [facility] darlene Martell 2012-06-09 2012-06-11 Inpatient nullFlavo Not Sent [id number] Memoria 11:40:00 16:30:00 r 01 darlene Martell 2012-06-09 2012-06-11 Inpatient nullFlavo Not Sent [id number] Memoria 11:40:00 16:30:00 r 01 darlene Martell 2012-05-25 2012-05-25 OD [facility] [id number] Memoria 09:09:00 09:09:00 00 darlene Martell 2012-05-25 2012-05-25 OD [facility] [id number] Memoria 09:09:00 09:09:00 00 darlene Martell Results Test Description Test Time Test Comments Results Result Comments Source GLUBED 2022-08-18 12:29:00 Test Item Value Reference Range Interpretation Comme nts GLUBED (test code = GLUBED) 165 MG/DL 70-105 H COMPREHENSIVE METABOLIC [id number] 08:25:00 Test Item Value Reference Range Interpretation Comments SODIUM (test code 136 mmol/L 135-145 N = NA) POTASSIUM (test 4.6 mmol/L 3.6-5.0 N code = K) CHLORIDE (test 108 mmol/L 101-111 N code = CL) CARBON DIOXIDE 23 mmol/L 21-31 N (test code = CO2) GLUCOSE (test code 149 mg/dl 70-100 H = GLU) BLOOD UREA 13 mg/dl 6-20 N NITROGEN (test code = BUN) GLOMERULAR >=60 max >60 The Glomerular FILTRATION RATE estimate Filtration R ate is a (test code = GFR) calculated parameterbased on serum Creatinin e, patient age and sex. GFR valuesless than 60 mL/min/1.73 square meters are pankaj cative ofChronic Kidne y Disease. Values less than 15 mL/min/1.73squa re meters indicate Kidney failure. The calculation for GFR is based on the CK D-EPI (2020) calculat ion. This formulais race indifferent and is the recommended formula for GFR by the [employer] for Adults.The GFR will not calculate i f the sex is unknown or if thepatient's ag e is <18 years. CREATININE (test 0.90 mg/dL 0.44-1.03 N code = CREAT) TOTAL PROTEIN 4.8 g/dL 6.7-8.2 L (test code = PROT) ALBUMIN (test code 2.5 g/dL 3.2-5.5 L = ALB) CALCIUM (test code 9.3 mg/dL 8.5-10.5 N = CA) BILIRUBIN TOTAL 0.40 mg/dL 0.2-1.3 N (test code = BILT) SGOT/AST (test 13 U/L 10-42 N code = AST) SGPT/ALT (test 13 U/L 10-60 N code = ALT) ALKALINE 40 U/L 42-121 L PHOSPHATASE (test code = ALKP) CBC W/AUTO [id number] 08:06:00 Test Item Value Reference Range Interpretation Comments WHITE BLOOD CELL (test code = 8.0 x10 3/uL 3.2-11.5 N WBC) RED BLOOD CELL (test code = 3.45 x10(6)/m 3.70-5.10 L RBC) HEMOGLOBIN (test code = HGB) 9.3 g/dL 12.0-15.0 L HEMATOCRIT (test code = HCT) 29.4 % 35.7-44.8 L MEAN CELL VOLUME (test code = 85 fL 80-100 N MCV) MEAN CELL HGB (test code = MCH) 27.0 pg 26.2-33.8 N MEAN CELL HGB CONCENTRATION 31.6 g/dL 30.0-34.0 N (test code = MCHC) RED CELL DISTRIBUTION WIDTH 14.5 % 11.3-14.5 N (test code = RDW) PLATELET COUNT (test code = 286 x10 3/uL 130-408 N PLT) MEAN PLATELET VOLUME (test code 11.0 fL 8.6-12.6 N = MPV) NEUTROPHIL % (test code = NT%) 61.2 % 40.0-70.0 N LYMPHOCYTE % (test code = LY%) 22.7 % 20-40 N MONOCYTE % (test code = MO%) 10.7 % 1-10 H EOSINOPHIL % (test code = EO%) 4.5 % 0.0-5.0 N BASOPHIL % (test code = BA%) 0.5 % 0.0-1.0 N NUCLEATED RBC % (test code = 0.0 % 0.0-0.9 N NRBC%) NEUTROPHIL # (test code = NT#) 4.9 x10 3/uL 1.6-7.2 N LYMPHOCYTE # (test code = LY#) 1.82 x10 3/uL 1.1-2.7 N MONOCYTE # (test code = MO#) 0.9 x10 3/uL 0.3-0.8 H EOSINOPHIL # (test code = EO#) 0.4 x10 3/uL 0.0-0.5 N IMMATURE GRANULOCYTE % (test 0.4 % 0.0-2.0 N code = IG%) BASOPHIL # (test code = BA#) 0.0 x10 3/uL 0.0-0.1 N [id number] 06:04:00 Test Item Value Reference Range Interpretation Comments GLUBED (test code = GLUBED) 126 MG/DL 70-105 H - XR ABDOMEN [id number] 00:36:00 [facility] 1945 Sex: FPatient Name: MARIAH CANALES Unit No: [id number] EXAMS: CPT: [id number] XR ABDOMEN 1V 67089 ABDOMEN 1 VIEW: CLINICAL HISTORY: Abdominal pain COMPARISON: 08/17/2022, 5 hours prior FINDINGS: Fecal impaction the rectum remains. Colonic distention has slightly improved. IMPRESSION: Improvement in colonic distention. at 0036 Reported and signed by:Bart Garcia MD CC: Jane Rousseau MD; Dmitri Davidson MD Technologist: PAULINE Vega Time: DAP(Gy m2): Air Kerma (mGy): Trscr Dt/Tm: 08/18/2022 (0036) by:[email or web address] Orig Print D/T: S: 08/18/2022(0040) BATCH NO: N/A Name: MARIAH CAANLES [facility] Phys: Jane Yadav MD [address] : 1945 Age: 77 Sex: F [place] [address] Loc: N.0560 1 Exam Date: 08/17/2022 Status: ADM IN PH: FAX: PAGE 1 Signed Report- XR ABDOMEN [id number] 22:34:00 [facility] : 1945 Sex: FPatient Name: MARIAH CANALES Unit No: [id number] EXAMS: CPT: [id number] XR ABDOMEN 1V 11251 ABDOMEN 1 VIEW: CLINICAL HISTORY: Abdominal pain COMPARISON: 08/16/2022 FINDINGS: Large amount of fecal material impacted in the rectum without change. Moderate diffuse gaseous distention of the colon is also unchanged. IMPRESSION:No interval change in colonic distention and fecal impaction in the rectum at 2234 Reported and signed by: Bart Garcia,[facility]: Jane Rousseau MD; Dmitri Davidson MD Technologist: Tina Vega Time: DAP (Gy m2): Air Kerma(mGy): Trscr Dt/Tm: 08/17/2022 (2233) by:[email or web address] Orig Print D/T: S: 08/17/2022 (2237) BATCH NO: N/A Name: MARIAH CANALES [facility] Phys: Jane Yadav MD [address] [facility] [facility] : 1945 Age: 77 Sex: F [place] [id number] Loc: N.0560 1 Exam Date: 08/17/2022 Status: ADM IN PH: FAX: PAGE 1 Signed [id number] 20:56:00 Test Item Value Reference Range Interpretation Comments GLUBED (test code = GLUBED) 157 MG/DL 70-105 H [id number] 16:00:00 Test Item Value Reference Range Interpretation Comments GLUBED (test code = GLUBED) 202 MG/DL 70-105 H [id number] 11:09:00 Test Item Value Reference Range Interpretation Comments GLUBED (test code = GLUBED) 238 MG/DL 70-105 H [id number] 05:24:00 Test Item Value Reference Range Interpretation Comments GLUBED (test code = GLUBED) 115 MG/DL 70-105 H [id number] 23:01:00 Test Item Value Reference Range Interpretation Comments GLUBED (test code = GLUBED) 192 MG/DL 70-105 H - DUP VEIN UNI [id number] 22:52:00 [facility] 1945 Sex: FPatient Name: MARIAH CANALES Unit No: [id number] EXAMS: CPT: [id number] [address] RIGHT UPPER EXTREMITY VENOUS DOPPLER ULTRASOUND: CLINICAL HISTORY: Arm swelling. TECHNIQUE: Grayscale real-time B-mode imaging with color flow and spectral flow Doppler analysis was performed FINDINGS: There is normal compressibility and augmentation with no evidence of thrombus involving the internal jugular, subclavian, axillary, cephalic, basilic and brachial veins. The ulnar and radial veins are patent. IMPRESSION: No evidence of deep venous thrombosis in the right upper extremity. at 2252 Reported and signed by: Bart Garcia MD CC: Jane Rousseau MD; Dmitri Davidson MD Technologist: KATHERYN Powell Probe: Trscr Dt/Tm: 08/16/2022 (2251) by:[email or web address] Orig Print D/T: S: 08/16/2022 (2254) BATCH NO: N/A Name: MARIAH CANALES [facility] Phys:Jane Yadav MD [address] [place] : 1945 Age: 77 Sex: F [place], [place] [address] Loc: N.0560 1 Exam Date: 08/16/2022 Status: ADM IN PH: FAX: PAGE 1 Signed ReportUA RFLX MICR CULT IF [id number] 17:22:00 Test Item Value Reference Range Interpretation Comments UA COLOR (test code = YELLOW YELLOW COLU) UA APPEARANCE (test Clear CLEAR code = APPU) UA GLUCOSE DIPSTICK 1+ NEGATIVE (test code = DGLUU) UA BILIRUBIN DIPSTICK NEGATIVE NEGATIVE (test code = BILU) UA KETONE DIPSTICK NEGATIVE NEGATIVE (test code = KETU) UA SPECIFIC GRAVITY 1.008 1.001-1.030 (test code = SGU) UA BLOOD DIPSTICK (test NEGATIVE NEGATIVE code = SANDY) UA PH DIPSTICK (test 6.0 5.0-9.0 code = LUBNA) UA PROTEIN DIPSTICK NEGATIVE NEGATIVE (test code = PROU) UA UROBILINOGEN NEGATIVE See_Comment [Automated message] DIPSTICK (test code = The sy stem which URO) generated this result transmitted ref erence range: <=1.0. T he reference range was not used to int erpret this result as normal/abnormal . UA NITRITE DIPSTICK NEGATIVE NEGATIVE (test code = ROLAND) UA ASCORBIC ACID NEGATIVE DIPSTICK (test code = AAU) UA LEUKOCYTE ESTERASE 1+ NEGATIVE A DIPSTICK (test code = LEUU) UA WBC (test code = 0-5 /HPF 0-5 WBCUR) UA RBC (test code = 0-5 /HPF 0-5 RBCU) UA EPITHELIAL CELLS RARE /LPF NONE-FEW (test code = EPIU) UA BACTERIA (test code None /HPF NONE SEEN = BACU) UA MUCUS (test code = 1+ /LPF NONE SEEN MUCU) Indication for culture: Dysuria/FrequencySpecimen Description: CATHETERIZED (STRAIGHT)[id number] 15:23:00 Test Item Value Reference Range Interpretation Comments GLUBED (test code = GLUBED) 174 MG/DL 70-105 H [id number] 11:10:00 Test Item Value Reference Range Interpretation Comments GLUBED (test code = GLUBED) 157 MG/DL 70-105 H [id number] 08:51:00 Test Item Value Reference Range Interpretation Comments GLUBED (test code = GLUBED) 142 MG/DL 70-105 H - XR ABDOMEN [id number] 07:52:00 [facility] : 1945 Sex: FPatient Name: MARIAH CANALES Unit No: [id number] EXAMS: CPT: [id number] XR ABDOMEN 1V 64840 EXAM: XR ABDOMEN 1 VIEW DATE: 08/16/2022 6:34 AM INDICATION: Pain ADDITIONAL INFORMATION: None. COMPARISON: CT abdomen pelvis on 08/14/2022. TECHNIQUE: AP abdomen. FINDINGS: Lines, tubes and hardware: Lumbar spine posterior fusion rods and screws with intervertebral disc spaces are seen. Lower thorax: Unremarkable where visible. Abdomen and bowel: There is a large stool burden within the rectum, corresponding to the suspected stercoral colitis seen on the comparison CT abdomen pelvis. Bones and soft tissues: No acute abnormality. Age-related degenerative findings. IMPRESSION: Large stool burden within the rectum, corresponding to suspected stercoral colitis seen on the comparison CT abdomen and pelvis on 08/14/2022. at 0752 Reported and signed by: Emiliano Parker MD CC: Jane Rousseau MD; Dmitri Davidson MD Technologist: Tina Vega Time: DAP (Gy m2):Air Kerma (mGy): Trscr Dt/Tm: 08/16/2022 (0752) by:[email or web address] Orig Print D/T: S: 08/16/2022 (0755) BATCH NO: N/A Name: MARIAH CANALES [facility] Phys: Jane Yadav MD [address] [facility] [place] : 1945 Age: 77 Sex: F [place], [place] [address] Loc: N.0560 1 Exam Date: 08/16/2022 Status: ADM IN PH: FAX: PAGE 1 Signed [id number] 07:49:00 Test Item Value Reference Range Interpretation Comments GLUBED (test code = GLUBED) 65 MG/DL 70-105 L COMPREHENSIVE METABOLIC [id number] 07:29:00 Test Item Value Reference Range Interpretation Comments SODIUM (test code 133 mmol/L 135-145 L = NA) POTASSIUM (test 3.7 mmol/L 3.6-5.0 N code = K) CHLORIDE (test 103 mmol/L 101-111 N code = CL) CARBON DIOXIDE 24 mmol/L 21-31 N (test code = CO2) GLUCOSE (test code 54 mg/dl 70-100 L = GLU) BLOOD UREA 19 mg/dl 6-20 NITROGEN (test code = BUN) GLOMERULAR >=60 max >60 The Glomerular FILTRATION RATE estimate Filtration R ate is a (test code = GFR) calculated parameterbased on serum Creatinin e, patient age and sex. GFR valuesless than 60 mL/min/1.73 square meters are pankaj cative ofChronic Kidne y Disease. Values less than 15 mL/min/1.73squa re meters indicate Kidney failure. The calculation for GFR is based on the CK D-EPI (2020) calculat ion. This formulais race indifferent and is the recommended formula for GFR by the National Kidney Foundation for Adults.The GFR will not calculate i f the sex is unknown or if thepatient's ag e is <18 years. CREATININE (test 0.89 mg/dL 0.44-1.03 N code = CREAT) TOTAL PROTEIN 5.8 g/dL 6.7-8.2 L (test code = PROT) ALBUMIN (test code 3.0 g/dL 3.2-5.5 L = ALB) CALCIUM (test code 9.3 mg/dL 8.5-10.5 N = CA) BILIRUBIN TOTAL 0.20 mg/dL 0.2-1.3 N (test code = BILT) SGOT/AST (test 19 U/L 10-42 N code = AST) SGPT/ALT (test 17 U/L 10-60 N code = ALT) ALKALINE 51 U/L 42-121 N PHOSPHATASE (test code = ALKP) CBC W/AUTO [id number] 06:53:00 Test Item Value Reference Range Interpretation Comments WHITE BLOOD CELL (test code = 9.2 x10 3/uL 3.2-11.5 N WBC) RED BLOOD CELL (test code = 3.74 x10(6)/m 3.70-5.10 N RBC) HEMOGLOBIN (test code = HGB) 9.9 g/dL 12.0-15.0 L HEMATOCRIT (test code = HCT) 31.7 % 35.7-44.8 L MEAN CELL VOLUME (test code = 85 fL 80-100 N MCV) MEAN CELL HGB (test code = MCH) 26.5 pg 26.2-33.8 N MEAN CELL HGB CONCENTRATION 31.2 g/dL 30.0-34.0 N (test code = MCHC) RED CELL DISTRIBUTION WIDTH 14.3 % 11.3-14.5 N (test code = RDW) PLATELET COUNT (test code = 263 x10 3/uL 130-408 N PLT) MEAN PLATELET VOLUME (test code 10.7 fL 8.6-12.6 N = MPV) NEUTROPHIL % (test code = NT%) 75.7 % 40.0-70.0 H LYMPHOCYTE % (test code = LY%) 13.4 % 20-40 L MONOCYTE % (test code = MO%) 8.5 % 1-10 N EOSINOPHIL % (test code = EO%) 1.8 % 0.0-5.0 N BASOPHIL % (test code = BA%) 0.2 % 0.0-1.0 N NUCLEATED RBC % (test code = 0.0 % 0.0-0.9 N NRBC%) NEUTROPHIL # (test code = NT#) 7.0 x10 3/uL 1.6-7.2 N LYMPHOCYTE # (test code = LY#) 1.23 x10 3/uL 1.1-2.7 N MONOCYTE # (test code = MO#) 0.8 x10 3/uL 0.3-0.8 N EOSINOPHIL # (test code = EO#) 0.2 x10 3/uL 0.0-0.5 N IMMATURE GRANULOCYTE % (test 0.4 % 0.0-2.0 N code = IG%) BASOPHIL # (test code = BA#) 0.0 x10 3/uL 0.0-0.1 N [id number] 20:59:00 Test Item Value Reference Range Interpretation Comments GLUBED (test code = GLUBED) 131 MG/DL 70-105 H [id number] 17:42:00 Test Item Value Reference Range Interpretation Comments GLUBED (test code = GLUBED) 129 MG/DL 70-105 H [id number] 15:24:00 Test Item Value Reference Range Interpretation Comments GLUBED (test code = GLUBED) 47 MG/DL 70-105 LL [id number] 19:17:00 Test Item Value Reference Range Interpretation Comments TROPONIN-I (test code = TROPI) <0.020 ng/mL 0.000-0.034 N - CT ABD PELVIS W/[id number] 18:58:00 [facility] : 1945 Sex: FPatient Name: MARIAH CANALES Unit No: [id number] EXAMS: CPT: [id number] CT ABD PELVIS W/CONT 49693 CLINICAL HISTORY: cough, vomiting. COMPARISON: none TECHNIQUE: CT of the chest, abdomen and pelvis following the administration of intravenous contrast. Coronal and sagittal reformatted images were generated. CT radiation dose optimization is achieved for this examination by the use of a CT protocol in acc ordance with ACR practice standards and adherence to manufacturers recommendations One or more of the following dose reduction techniques were used: Automated exposure control, adjustment of the mA and/or KV according to patient size, and/or utilization of iterative reconstruction technique. FINDINGS: CHEST: Lines/Tubes/Devices: None Lungs and large airways: Central airways are patent. Minimal upper lobe predominant upper lobe emphysematous changes within bilateral lungs. Pleura: Small right-sided pleural effusion with associated compressive atelectasis. No left pleural effusion. No pneumothorax. Mediastinum and christie: No mediastinal or hilar adenopathy. Heart and great vessels: The heart is normal in size. The great vessels are normal size. No pericardial effusion. Calcified atherosclerotic plaque within the thoracic aorta. Trace pericardial effusion. Chest wall, lower neck, axillae: Noaxillary lymphadenopathy ABDOMEN AND PELVIS: Liver and biliary system: The liver is normal in size measuring approximately 11.4 cm in dimension. No contour deforming lesions are identified. No intrahepatic or extra hepatic biliary ductal dilation. The gallbladder is unremarkable. Spleen: Unremarkable Pancreas: No main pancreatic ductal dilation. Adrenal glands: Unremarkable Name: MARIAH CANALES [facility] ED Phys: Barbara Beaulieu MD [address] : 1945 Age: 77 Sex: [place] [address] Loc: N.ERS Exam Date: 08/14/2022 Status: REG ER PH: FAX: PAGE 1 Signed Report (CONTINUED) Patient Name: MARIAH CANALES Unit No: [id number] EXAMS: CPT: [id number] CT ABD PELVIS W/CONT 00315 (Continued) Kidneys: The knees are normal in size and configuration. No hydronephrosis or nephrolithiasis. Scattered subcentimeter hypodense lesions within bilateral kidneys, too small to adequately characterize, likely representing small cysts. Lymph nodes/retroperitoneum: No lymphadenopathy. Vessels: Patent Bowel/Peritoneal cavity: Lack of oral contrast limits evaluation of bowel. There is severe fecal burden within the rectum with associated mild mural thickening of the rectal, raising concern for a stercoral colitis. Bladder: No focal bladder wall thickening Pelvic organs:Unremarkable Abdominal/Pelvic wall: Unremarkable Bones: Postsurgical changes of a L2-L5 spinal fusion posterior laminectomy. Age- indeterminate compression L1 vertebral. No aggressive osseous lesions. No acute fracture IMPRESSION: Severe fecal burden within the rectum with associated marked distention,and mild mural thickening, raising concern for stroke focal colitis in the appropriate clinical setting. Presumed simple cyst within bilateral kidneys. Small right-sided pleural effusion with associated compressive atelectasis. Additional findings as above. Electronically Signed by Sarah Davis MD on08/14/2022 at 1858 Reported and signed by: Sarah Davis MD CC: Barbara Otero MD; Dmitri Davidson MD Technologist: Ritchie Terrazas CTDI: DLP: Trscr Dt/Tm: 08/14/2022 (1857) by:[email or web address] Orig Print D/T: S: 08/14/2022 (1900) BATCH NO: N/A Name: MARIAH CANALES [facility] Phys: Barbara Beaulieu MD [address] : 1945 Age: 77 Sex: [place] [address] Loc:N.ERS Exam Date: 08/14/2022 Status: REG ER PH: FAX: PAGE 2 Signed Report- CT CHEST W/[id number] 18:58:00 [facility] : 1945 Sex: FPatient Name: MARIAH CANALES Unit No: [id number] EXAMS: CPT: [id number] CT CHEST W/CONTRAST [address] CLINICAL HISTORY: cough, vomiting. COMPARISON: none TECHNIQUE: CT of the chest, abdomen and pelvis following the administration of intravenous contrast. Coronal and sagittal reformatted images were generated. CT radiation dose optimization is achieved for this examination by the use of a CT protocol in acc ordance with ACR practice standards and adherence to manufacturers recommendations One or more of the following dose reduction techniques were used: Automated exposure control, adjustment of the mA and/or KV according to patient size, and/or utilization of iterative reconstruction technique. FINDINGS: CHEST: Lines/Tubes/Devices: None Lungs and large airways: Central airways are patent. Minimal upper lobe predominant upper lobe emphysematous changes within bilateral lungs. Pleura: Small right-sided pleural effusion with associated compressive atelectasis. No left pleural effusion. No pneumothorax. Mediastinum and christie: No mediastinal or hilar adenopathy. Heart and great vessels: The heart is normal in size. The great vessels are normal size. No pericardial effusion. Calcified atherosclerotic plaque within the thoracic aorta. Trace pericardial effusion. Chest wall, lower neck, axillae: Noaxillary lymphadenopathy ABDOMEN AND PELVIS: Liver and biliary system: The liver is normal in size measuring approximately 11.4 cm in dimension. No contour deforming lesions are identified. No intrahepatic or extra hepatic biliary ductal dilation. The gallbladder is unremarkable. Spleen: Unremarkable Pancreas: No main pancreatic ductal dilation. Adrenal glands: Unremarkable Name: MARIAH CANALES [facility] ED Phys: Barbara Beaulieu MD [address] : 1945 Age: 77 Sex: [place] [address] Loc: N.ERS Exam Date: 08/14/2022 Status: REG ER PH: FAX: PAGE 1 Signed Report (CONTINUED) Patient Name: MARIAH CANALES Unit No: [id number] EXAMS: CPT: [id number] CT CHEST W/CONTRAST 41973 (Continued) Kidneys: The knees are normal in size and configuration. No hydronephrosis or nephrolithiasis. Scattered subcentimeter hypodense lesions within bilateral kidneys, too small to adequately characterize, likely representing small cysts. Lymph nodes/retroperitoneum: No lymphadenopathy. Vessels: Patent Bowel/Peritoneal cavity: Lack of oral contrast limits evaluation of bowel. There is severe fecal burden within the rectum with associated mild mural thickening of the rectal, raising concern for a stercoral colitis. Bladder: No focal bladder wall thickening Pelvic organs:Unremarkable Abdominal/Pelvic wall: Unremarkable Bones: Postsurgical changes of a L2-L5 spinal fusion posterior laminectomy. Age- indeterminate compression L1 vertebral. No aggressive osseous lesions. No acute fracture IMPRESSION: Severe fecal burden within the rectum with associated marked distention,and mild mural thickening, raising concern for stroke focal colitis in the appropriate clinical setting. Presumed simple cyst within bilateral kidneys. Small right-sided pleural effusion with associated compressive atelectasis. Additional findings as above. Electronically Signed by Sarah Davis MD on08/14/2022 at 1858 Reported and signed by: Sarah Davis MD CC: Barbara Otero MD; Dmitri Davidson MD Technologist: Ritchie Terrazas CTDI: 7.67 DLP: 478.83 Trscr Dt/Tm: 08/14/2022 (1857) by:[email or web address] Orig Print D/T: S: 08/14/2022 (1900) BATCH NO: N/A Name: MARIAH CANALES [facility] ED Phys: Barbara Rodriguez MD [address] : 1945 Age: 77 Sex: F [place] [address] Loc: N.ERS Exam Date: 08/14/2022 Status: REG ER PH: FAX: PAGE 2 Signed ReportBASIC METABOLIC [id number] 16:34:00 Test Item Value Reference Range Interpretation Comments SODIUM (test code = 131 mmol/L 135-145 L NA) POTASSIUM (test code 4.5 mmol/L 3.6-5.0 N = K) CHLORIDE (test code 105 mmol/L 101-111 N = CL) CARBON DIOXIDE (test 18 mmol/L 21-31 L code = CO2) GLUCOSE (test code = 110 mg/dl 70-100 H GLU) BLOOD UREA NITROGEN 36 mg/dl 6-20 H (test code = BUN) GLOMERULAR 57 >60 L The Glomerular FILTRATION RATE Filtration R ate is a (test code = GFR) calculated parameterbased on serum Creatinine, pat ient age and sex. GFR va luesless than 60 mL/min/ 1.73 square meters a re indicative ofCh ronic Kidney Disease. Values less than 15 mL/min/1.73squa re meters indicate Kidney failure. The calculation for GFR is based on the CK D-EPI (2020) calculat ion. This formulais race indifferent and is the recommended for regino for GFRby the Nat nal Kidney Foundati on for Adults.The GFR will not calculate if th e sex is unknown or if thepatient's ag e is <18 years. CREATININE (test 1.02 mg/dL 0.44-1.03 N code = CREAT) CALCIUM (test code = 9.2 mg/dL 8.5-10.5 N CA) LIVER FUNCTION [id number] 16:34:00 Test Item Value Reference Range Interpretation Comments TOTAL PROTEIN (test code = PROT) 6.1 g/dL 6.7-8.2 L ALBUMIN (test code = ALB) 3.3 g/dL 3.2-5.5 N BILIRUBIN TOTAL (test code = BILT) 0.50 mg/dL 0.2-1.3 N BILIRUBIN DIRECT (test code = 0.1 mg/dL 0.00-0.20 N BILD) SGOT/AST (test code = AST) 19 U/L 10-42 N SGPT/ALT (test code = ALT) 19 U/L 10-60 N ALKALINE PHOSPHATASE (test code = 57 U/L 42-121 N ALKP) [id number] 16:34:00 Test Item Value Reference Range Interpretation Comments LIPASE (test code = LIP) 30 IU/L 22-51 N [id number] 16:34:00 Test Item Value Reference Range Interpretation Comments MAGNESIUM (test code = MAG) 1.8 mg/dl 1.8-2.5 N HCG SERUM [id number] 15:45:00 Test Item Value Reference Range Interpretation Comments HCG SERUM QUAL NEGATIVE NEGATIVE This is a lisa litative (test code = HCGQL) screenin g test.The quantitative Bh cg may be helpful.Weakly positive results should be repeated in 48 hours. CBC W/AUTO [id number] 15:07:00 Test Item Value Reference Range Interpretation Comments WHITE BLOOD CELL (test code = 16.0 x10 3/uL 3.2-11.5 H WBC) RED BLOOD CELL (test code = 3.96 x10(6)/m 3.70-5.10 N RBC) HEMOGLOBIN (test code = HGB) 10.6 g/dL 12.0-15.0 L HEMATOCRIT (test code = HCT) 34.1 % 35.7-44.8 L MEAN CELL VOLUME (test code = 86 fL 80-100 N MCV) MEAN CELL HGB (test code = MCH) 26.8 pg 26.2-33.8 N MEAN CELL HGB CONCENTRATION 31.1 g/dL 30.0-34.0 N (test code = MCHC) RED CELL DISTRIBUTION WIDTH 14.0 % 11.3-14.5 N (test code = RDW) PLATELET COUNT (test code = 270 x10 3/uL 130-408 N PLT) MEAN PLATELET VOLUME (test code 11.0 fL 8.6-12.6 N = MPV) NEUTROPHIL % (test code = NT%) 86.3 % 40.0-70.0 H LYMPHOCYTE % (test code = LY%) 6.6 % 20-40 L MONOCYTE % (test code = MO%) 6.3 % 1-10 N EOSINOPHIL % (test code = EO%) 0.1 % 0.0-5.0 N BASOPHIL % (test code = BA%) 0.2 % 0.0-1.0 N NUCLEATED RBC % (test code = 0.0 % 0.0-0.9 N NRBC%) NEUTROPHIL # (test code = NT#) 13.8 x10 3/uL 1.6-7.2 H LYMPHOCYTE # (test code = LY#) 1.06 x10 3/uL 1.1-2.7 L MONOCYTE # (test code = MO#) 1.0 x10 3/uL 0.3-0.8 H EOSINOPHIL # (test code = EO#) 0.0 x10 3/uL 0.0-0.5 N IMMATURE GRANULOCYTE % (test 0.5 % 0.0-2.0 N code = IG%) BASOPHIL # (test code = BA#) 0.0 x10 3/uL 0.0-0.1 N - XR CHEST 1 [id number] 14:44:00 [facility] 1945 Sex: FPatient Name: MARIAH CANALES Unit No: [id number] EXAMS: CPT: [id number] XR CHEST 1 V 87022 EXAM: SINGLEVIEW OF THE CHEST HISTORY: Chest pain. COMPARISON: X-ray 03/25/2022. FINDINGS: Lines/tubes: None. Lungs/Pleura: No focal airspace opacity. Faint fissural line at the right midlung is unchanged. Pulmonary vasculature appears within normal limits. No pleural effusion or pneumothorax. Heart/mediastinum: C ardiomediastinal silhouette is within normal limits. Bones/soft tissues: Within normal limits. IMPRESSION: Stable exam. No acute cardiopulmonary findings. at 1444 Reported and signed by: JOSEPHINE VALLES MD CC: Barbara Otero MD; Dmitri Davidson MD Technologist: Merry Vega Time: DAP (Gy m2): Air Kerma (mGy): Trscr Dt/Tm: 08/14/2022 (9304) by:[email or web address] Orig Print D/T: S: 08/14/2022 (1446) BATCH NO: N/A Name: MARIAH CANALES [facility] Phys: Barbara Beaulieu MD [address] [place] : 1945 Age: 77 Sex: F [place] [address] Loc: N.ERS Exam Date: 08/14/2022 Status: PRE ER PH: FAX: PAGE 1 Signed Report- XR CHEST 1 [id number] 17:59:00 [facility] 1945 Sex: FPatient Name: MARIAH CANALES Unit No: [id number] EXAMS: CPT: [id number] XR CHEST 1 V [id number] AP CHEST 1 VIEW COMPARISON: None HISTORY: RIGHT SHOULDER PAIN S/P BEING LIFTED FINDINGS: Cardiomediastinal silhouette is normal. Aortic arch calcifications. No focal lung consolidation. There is no pleural effusion. There is no pneumothorax. No acute bony abnormality. IMPRESSION: No acute cardiopulmonary findings. at 1759 Reported and signedby: Josias Cantu MD CC: Ramu DUNAWAY Technologist: Rohan Vega Time: DAP (Gy m2):Air Kerma (mGy): Trscr Dt/Tm: 03/25/2022 (1759) by:[email or web address] Orig Print D/T: S: 03/25/2022 (609) BATCH NO: N/A Name: MARIAH CANALES [facility] Phys: Ramu Rangel [address] : 1945 Age: 76 Sex: F [place] [id number] Loc: N.ERS Exam Date: 03/25/2022 Status: REG ER PH: FAX: PAGE 1 Signed Report- XR HUMERUS 2 + V [id number] 17:53:00 [facility] 1945 Sex: FPatient Name: MARIAH CANALES Unit No: [id number] EXAMS: CPT: [id number] XR HUMERUS 2 + V RT [id number] EXAM:XR RIGHT HUMERUS 2 VIEWS EXAM: XR RIGHT SHOULDER 3 VIEWS DATE: 03/25/2022 5:12 PM INDICATION: Right shoulder pain status post being listed COMPARISON: None. TECHNIQUE: 2 views of the humerus, 3 views ofthe shoulder FINDINGS: Humerus: No acute fracture or malalignment is identified. Shoulder: No acutefracture or malalignment is identified. Osteophytes are seen at the acromioclavicular joint. No subacromial narrowing is seen. Soft tissues: No soft tissue abnormality is identified. IMPRESSION: No acute abnormality of the right humerus or shoulder. at 1753 Reported and signed by: Emiliano Parker MD CC: Ramu DUNAWAY Technologist: Rohan Vega Time: DAP (Gy m2): Air Kerma (mGy): Trscr Dt/Tm: 03/25/2022 (1752) by:[email or web address] Orig Print D/T: S: 03/25/2022 (1755) BATCH NO: N/A Name: MARIAH CANALES [facility] Phys: Ramu Acosta [address] [facility] [place] : 1945 Age: 76 Sex: F [place] [address] Loc: N.ERS Exam Date: 03/25/2022 Status: REG ER PH: FAX: PAGE 1 Signed Report- XR SHOULDER 2 + V [id number] 17:53:00 [facility] 1945 Sex: FPatient Name: MARIAH CANALES Unit No: [id number] EXAMS: CPT: [id number] XR SHOULDER 2 + V RT [id number] EXAM: XR RIGHT HUMERUS 2 VIEWS EXAM: XR RIGHT SHOULDER 3 VIEWS DATE: 03/25/2022 5:12 PM INDICATION: Rightshoulder pain status post being listed COMPARISON: None. TECHNIQUE: 2 views of the humerus, 3 views of the shoulder FINDINGS: Humerus: No acute fracture or malalignment is identified. Shoulder: No acute fracture or malalignment is identified. Osteophytes are seen at the acromioclavicular joint. No subacromial narrowing is seen. Soft tissues: No soft tissue abnormality is identified. IMPRESSION: No acute abnormality of the right humerus or shoulder. at 1753 Reported and signed by: Emiliano Parker MD CC: Ramu DUNAWAY Technologist: Rohan Vega Time: DAP (Gy m2): Air Kerma (mGy): Trscr Dt/Tm: 03/25/2022 (1752) by:[email or web address] Orig Print D/T: S: 03/25/2022 (1755) BATCH NO: N/A Name: MARIAH CANALES [facility] Phys: Ramu Rangel [address] [facility] : 1945 Age: 76 Sex: [place] [address] Loc: N.ERS Exam Date: 03/25/2022 Status: REG ER PH: FAX: PAGE 1 Signed [facility]2020-03-24 06:29:50 Test Item Value Reference Range Interpretation Comments Glucose Lvl (test code = Glucose Lvl) 140 70-99 [facility]2020-03-24 06:29:50 Test Item Value Reference Range Interpretation Comments BUN (test code = BUN) 22 7-22 [facility]2020-03-24 06:29:50 Test Item Value Reference Range Interpretation Comments Creatinine Lvl (test code = Creatinine 0.90 0.50-1.40 Lvl) [facility]2020-03-24 06:29:50 Test Item Value Reference Range Interpretation Comments Sodium Lvl (test code = Sodium Lvl) 138 135-145 [facility]2020-03-24 06:29:50 Test Item Value Reference Range Interpretation Comments Potassium Lvl (test code = Potassium 4.4 3.5-5.1 Lvl) [facility]2020-03-24 06:29:50 Test Item Value Reference Range Interpretation Comments Chloride Lvl (test code = Chloride Lvl) 110 95-109 [facility]2020-03-24 06:29:50 Test Item Value Reference Range Interpretation Comments CO2 (test code = CO2) 25 24-32 [facility] [id number] 06:29:50 Test Item Value Reference Range Interpretation Comments Calcium Lvl (test code = Calcium Lvl) 8.5 8.5-10.5 [facility] [id number] 06:29:50 Test Item Value Reference Range Interpretation Comments Total Protein (test code = Total 5.5 6.4-8.4 Protein) [facility] [id number] 06:29:50 Test Item Value Reference Range Interpretation Comments Albumin Lvl (test code = Albumin Lvl) 2.4 3.5-5.0 [facility] [employer] [id number] 06:29:50 Test Item Value Reference Range Interpretation Comments ALT (test code = ALT) 13 See_Comment [Auto mated message] The system which ge nerated this result transmit thelma reference range : <=65. The reference range was not used to interpr et this result as zana l/abnormal. [facility] [employer] [id number] 06:29:50 Test Item Value Reference Range Interpretation Comments AST (test code = AST) 11 See_Comment [Auto mated message] The system which ge nerated this result transmit thelma reference range : <=37. The reference range was not used to interpr et this result as zana l/abnormal. [facility] [employer] [id number] 06:29:50 Test Item Value Reference Range Interpretation Comments Alk Phos (test code = Alk Phos) 43 39-136 [facility] [employer] [id number] 06:29:50 Test Item Value Reference Range Interpretation Comments Bili Total (test code = Bili Total) 0.1 0.2-1.3 [facility] [employer] [id number] 06:29:50 Test Item Value Reference Range Interpretation Comments AGAP (test code = AGAP) 7.4 10.0-20.0 [facility] [employer] [id number] 06:29:50 Test Item Value Reference Range Interpretation Comments B/C Ratio (test code = B/C Ratio) 24 1 6-25 [facility] [employer] [id number] 06:29:50 Test Item Value Reference Range Interpretation Comments Globulin (test code = Globulin) 3.1 2.7-4.2 [place] 392080-03-24 06:29:50 Test Item Value Reference Range Interpretation Comments A/G Ratio (test code = A/G Ratio) 0.8 1 0.7-1.6 [place] [address]-03-24 06:29:50 Test Item Value Reference Range Interpretation Comments eGFR (test code = eGFR) 64 [place] [address]-03-24 06:29:50 Test Item Value Reference Range Interpretation Comments Segs (test code = Segs) 83.6 45.0-75.0 [place] [address]-03-24 06:29:50 Test Item Value Reference Range Interpretation Comments Lymphocytes (test code = Lymphocytes) 7.7 20.0-40.0 [place] [address]-03-24 06:29:50 Test Item Value Reference Range Interpretation Comments Monocytes (test code = Monocytes) 4.5 2.0-12.0 [place] [address]-03-24 06:29:50 Test Item Value Reference Range Interpretation Comments Eosinophils (test code = 3.8 See_Comment [A utomated message] The Eosinophils) system which ge nerated this result tra nsmitted reference range : <=4.0. The reference r eric was not used to int erpret this result as normal/abnormal . [place] [address]-03-24 06:29:50 Test Item Value Reference Range Interpretation Comments Basophils (test code = 0.4 See_Comment [Aut omated message] The Basophils) system which ge nerated this result tra nsmitted reference range : <=1.0. The reference r eric was not used to int erpret this result as normal/abnormal . [place] 865100-03-24 06:29:50 Test Item Value Reference Range Interpretation Comments Neutrophils # (test code = Neutrophils 6.2 1.5-8.1 #) [place] 865100-03-24 06:29:50 Test Item Value Reference Range Interpretation Comments Lymphocytes # (test code = Lymphocytes 0.6 1.0-5.5 #) [place] [address]-03-24 06:29:50 Test Item Value Reference Range Interpretation Comments Monocytes # (test code 0.3 See_Comment [Aut omated message] The = Monocytes #) system which generated this result tra nsmitted reference range : <=0.8. The reference r eric was not used to int erpret this result as normal/abnormal . [facility] [id number] 06:29:50 Test Item Value Reference Range Interpretation Comments Eosinophils # (test code 0.3 See_Comment [A utomated message] The = Eosinophils #) system [employer] h generated this result tra nsmitted reference range : <=0.5. The reference r eric was not used to int erpret this result as normal/abnormal . [facility] CenterThnrvdqREFCQLTPIL6697-79-55 06:29:50 Test Item Value Reference Range Interpretation Comments WBC (test code = WBC) 7.5 3.7-10.4 [place] 865100-03-24 06:29:50 Test Item Value Reference Range Interpretation Comments RBC (test code = RBC) 3.31 4.20-5.40 [place] 865100-03-24 06:29:50 Test Item Value Reference Range Interpretation Comments Hgb (test code = Hgb) 8.5 12.0-16.0 [place] 865100-03-24 06:29:50 Test Item Value Reference Range Interpretation Comments Hct (test code = Hct) 26.9 36.0-48.0 [place] 865100-03-24 06:29:50 Test Item Value Reference Range Interpretation Comments MCV (test code = MCV) 81.5 80.0-98.0 [place] 865100-03-24 06:29:50 Test Item Value Reference Range Interpretation Comments MCH (test code = MCH) 25.7 pg 27.0-31.0 [place] 865100-03-24 06:29:50 Test Item Value Reference Range Interpretation Comments MCHC (test code = MCHC) 31.6 32.0-36.0 [place] 865100-03-24 06:29:50 Test Item Value Reference Range Interpretation Comments RDW (test code = RDW) 14.6 11.5-14.5 [place] 865100-03-24 06:29:50 Test Item Value Reference Range Interpretation Comments Platelet (test code = Platelet) 257 133-450 [place] 865100-03-24 06:29:50 Test Item Value Reference Range Interpretation Comments MPV (test code = MPV) 8.9 7.4-10.4 [place] [address]-03-24 06:29:50 Test Item Value Reference Range Interpretation Comments Glucose Lvl (test code = Glucose Lvl) 140 70-99 [place] 392080-03-24 06:29:50 Test Item Value Reference Range Interpretation Comments BUN (test code = BUN) 22 7-22 [place] 392080-03-24 06:29:50 Test Item Value Reference Range Interpretation Comments Creatinine Lvl (test code = Creatinine 0.90 0.50-1.40 Lvl) [place] [address]-03-24 06:29:50 Test Item Value Reference Range Interpretation Comments Sodium Lvl (test code = Sodium Lvl) 138 135-145 [place] 392080-03-24 06:29:50 Test Item Value Reference Range Interpretation Comments Potassium Lvl (test code = Potassium 4.4 3.5-5.1 Lvl) [place] 392080-03-24 06:29:50 Test Item Value Reference Range Interpretation Comments Chloride Lvl (test code = Chloride Lvl) 110 95-109 [place] [address]-03-24 06:29:50 Test Item Value Reference Range Interpretation Comments CO2 (test code = CO2) 25 24-32 [place] [address]-03-24 06:29:50 Test Item Value Reference Range Interpretation Comments Calcium Lvl (test code = Calcium Lvl) 8.5 8.5-10.5 [place] 392080-03-24 06:29:50 Test Item Value Reference Range Interpretation Comments Total Protein (test code = Total 5.5 6.4-8.4 Protein) [place] 392080-03-24 06:29:50 Test Item Value Reference Range Interpretation Comments Albumin Lvl (test code = Albumin Lvl) 2.4 3.5-5.0 [place] [address]-03-24 06:29:50 Test Item Value Reference Range Interpretation Comments ALT (test code = ALT) 13 See_Comment [Auto mated message] The system which ge nerated this result transmit thelma reference range : <=65. The reference range was not used to interpr et this result as zana l/abnormal. [place] 392080-03-24 06:29:50 Test Item Value Reference Range Interpretation Comments AST (test code = AST) 11 See_Comment [Auto mated message] The system which ge nerated this result transmit thelma reference range : <=37. The reference range was not used to interpr et this result as zana l/abnormal. [facility] [employer] [id number] 06:29:50 Test Item Value Reference Range Interpretation Comments Alk Phos (test code = Alk Phos) 43 39-136 [facility] [id number] 06:29:50 Test Item Value Reference Range Interpretation Comments Bili Total (test code = Bili Total) 0.1 0.2-1.3 [facility] [id number] 06:29:50 Test Item Value Reference Range Interpretation Comments AGAP (test code = AGAP) 7.4 10.0-20.0 [facility] [id number] 06:29:50 Test Item Value Reference Range Interpretation Comments B/C Ratio (test code = B/C Ratio) 24 1 6-25 [facility] [id number] 06:29:50 Test Item Value Reference Range Interpretation Comments Globulin (test code = Globulin) 3.1 2.7-4.2 [facility] [id number] 06:29:50 Test Item Value Reference Range Interpretation Comments A/G Ratio (test code = A/G Ratio) 0.8 1 0.7-1.6 [facility] [id number] 06:29:50 Test Item Value Reference Range Interpretation Comments eGFR (test code = eGFR) 64 [facility] CenterTvzwgftKZSUSTKSWO9764-80-81 06:29:50 Test Item Value Reference Range Interpretation Comments Segs (test code = Segs) 83.6 45.0-75.0 [facility] FallsNknxbuoYEUDALRLFJ0374-46-81 06:29:50 Test Item Value Reference Range Interpretation Comments Lymphocytes (test code = Lymphocytes) 7.7 20.0-40.0 [facility] [id number] 06:29:50 Test Item Value Reference Range Interpretation Comments Monocytes (test code = Monocytes) 4.5 2.0-12.0 [facility] FallsVxqezkjRZPOFROKAV5380-55-29 06:29:50 Test Item Value Reference Range Interpretation Comments Eosinophils (test code = 3.8 See_Comment [A utomated message] The Eosinophils) system which ge nerated this result tra nsmitted reference range : <=4.0. The reference r eric was not used to int erpret this result as normal/abnormal . [facility] CenterPvkbpotHGLEAFKJYL9201-68-59 06:29:50 Test Item Value Reference Range Interpretation Comments Basophils (test code = 0.4 See_Comment [Aut omated message] The Basophils) system which ge nerated this result tra nsmitted reference range : <=1.0. The reference r eric was not used to int erpret this result as normal/abnormal . [facility] CenterAjsoqzvOVOLMABQSZ5921-95-77 06:29:50 Test Item Value Reference Range Interpretation Comments Neutrophils # (test code = Neutrophils 6.2 1.5-8.1 #) [facility] C[id number] 06:29:50 Test Item Value Reference Range Interpretation Comments Lymphocytes # (test code = Lymphocytes 0.6 1.0-5.5 #) [facility] CenterMimxvesPZVHUXDJXN5622-78-59 06:29:50 Test Item Value Reference Range Interpretation Comments Monocytes # (test code 0.3 See_Comment [Aut omated message] The = Monocytes #) system which generated this result tra nsmitted reference range : <=0.8. The reference r eric was not used to int erpret this result as normal/abnormal . [facility] CenterRxbxpkxWAGTAIQLPG0684-45-83 06:29:50 Test Item Value Reference Range Interpretation Comments Eosinophils # (test code 0.3 See_Comment [A utomated message] The = Eosinophils #) system whic h generated this result tra nsmitted reference range : <=0.5. The reference r eric was not used to int erpret this result as normal/abnormal . [facility] CenterSbnzkkiBYITNJTNCJ4216-12-20 06:29:50 Test Item Value Reference Range Interpretation Comments WBC (test code = WBC) 7.5 3.7-10.4 [place] 865100-03-24 06:29:50 Test Item Value Reference Range Interpretation Comments RBC (test code = RBC) 3.31 4.20-5.40 [place] 865100-03-24 06:29:50 Test Item Value Reference Range Interpretation Comments Hgb (test code = Hgb) 8.5 12.0-16.0 [facility] CenterBtwinsxUMYMPLVNBI3093-21-26 06:29:50 Test Item Value Reference Range Interpretation Comments Hct (test code = Hct) 26.9 36.0-48.0 [facility] CenterGjcayyiYOMFYBDWEL9720-16-72 06:29:50 Test Item Value Reference Range Interpretation Comments MCV (test code = MCV) 81.5 80.0-98.0 [facility] CenterOadjtxkCJFWZHPZNR6870-79-30 06:29:50 Test Item Value Reference Range Interpretation Comments MCH (test code = MCH) 25.7 pg 27.0-31.0 [facility] CenterMqxfcscLNXTDABERX0860-79-81 06:29:50 Test Item Value Reference Range Interpretation Comments MCHC (test code = MCHC) 31.6 32.0-36.0 [facility] CenterQvmshbeMRTOAGRNOL3580-48-64 06:29:50 Test Item Value Reference Range Interpretation Comments RDW (test code = RDW) 14.6 11.5-14.5 [facility] CenterLikwulbHMJSZTFCUG1803-68-07 06:29:50 Test Item Value Reference Range Interpretation Comments Platelet (test code = Platelet) 257 133-450 [facility] CenterGbonzftQMWZYDTCJY3660-93-92 06:29:50 Test Item Value Reference Range Interpretation Comments MPV (test code = MPV) 8.9 7.4-10.4 [facility]2020-03-23 18:47:00 Test Item Value Reference Range Interpretation Comments Source Respiratory Nasophrngl Swb Panel PCR (test code = *NA*(12/05/19 1:47 PM) Source Respiratory Panel PCR) [facility]2020-03-23 18:47:00 Test Item Value Reference Range Interpretation Comments Influenza A PCR (test Negative *NA*(12/05/19 code = Influenza A PCR) 1:47 PM) [facility]2020-03-23 18:47:00 Test Item Value Reference Range Interpretation Comments Influenza B PCR (test Negative *NA*(12/05/19 code = Influenza B PCR) 1:47 PM) [place] 623020-03-23 18:47:00 Test Item Value Reference Range Interpretation Comments RSV PCR (test code = Negative *NA*(12/05/19 RSV PCR) 1:47 PM) [facility]2020-03-23 18:47:00 Test Item Value Reference Range Interpretation Comments Source Respiratory Nasophrngl Swb Panel PCR (test code = *NA*(12/05/19 1:47 PM) Source Respiratory Panel PCR) [facility] [id number] 18:47:00 Test Item Value Reference Range Interpretation Comments Influenza A PCR (test Negative *NA*(12/05/19 code = Influenza A PCR) 1:47 PM) [facility] [id number] 18:47:00 Test Item Value Reference Range Interpretation Comments Influenza B PCR (test Negative *NA*(12/05/19 code = Influenza B PCR) 1:47 PM) [facility] [id number] 18:47:00 Test Item Value Reference Range Interpretation Comments RSV PCR (test code = Negative *NA*(12/05/19 RSV PCR) 1:47 PM) [facility] [id number] 16:26:00 Test Item Value Reference Range Interpretation Comments Ferritin Lvl (test code = Ferritin Lvl) 19 204 [facility] CenterCARhurleypalmerflattAC [id number] 16:26:00 Test Item Value Reference Range Interpretation Comments Total CK (test code = Total CK) 24 12-191 [facility] FallsAdjacent ApplicationsAC [id number] 16:26:00 Test Item Value Reference Range Interpretation Comments Troponin-I (test code no gt See_Comment [Auto mated message] The = Troponin-I) system which g enerated this result transmit thelma reference range : <=0.40. The reference r eric was not used to interpr et this result as zana l/abnormal. [facility] [employer] [id number] 16:26:00 Test Item Value Reference Range Interpretation Comments Procalcitonin Lvl (test 1.36 See_Comment [Au tomated message] code = Procalcitonin Lvl) Th e system which generated this result transmitted ref erence range: <=0.10. The reference range was not used to interpr et this result as normal/abnormal . [facility] [employer] [id number] 16:26:00 Test Item Value Reference Range Interpretation Comments Glucose Lvl (test code = Glucose Lvl) 164 70-99 [facility] [place] [id number] 16:26:00 Test Item Value Reference Range Interpretation Comments BUN (test code = BUN) 14 7-22 [facility] CenterMuckRock [id number] 16:26:00 Test Item Value Reference Range Interpretation Comments Creatinine Lvl (test code = Creatinine 0.75 0.50-1.40 Lvl) [place] [address]-03-23 16:26:00 Test Item Value Reference Range Interpretation Comments Sodium Lvl (test code = Sodium Lvl) 134 135-145 [facility] [id number] 16:26:00 Test Item Value Reference Range Interpretation Comments Potassium Lvl (test code = Potassium 4.3 3.5-5.1 Lvl) [facility] [id number] 16:26:00 Test Item Value Reference Range Interpretation Comments Chloride Lvl (test code = Chloride Lvl) 104 95-109 [facility] [id number] 16:26:00 Test Item Value Reference Range Interpretation Comments CO2 (test code = CO2) 25 24-32 [facility] [id number] 16:26:00 Test Item Value Reference Range Interpretation Comments Calcium Lvl (test code = Calcium Lvl) 9.1 8.5-10.5 [facility] [id number] 16:26:00 Test Item Value Reference Range Interpretation Comments Total Protein (test code = Total 6.8 6.4-8.4 Protein) [place] [address]-03-23 16:26:00 Test Item Value Reference Range Interpretation Comments Albumin Lvl (test code = Albumin Lvl) 3.0 3.5-5.0 [facility] [id number] 16:26:00 Test Item Value Reference Range Interpretation Comments ALT (test code = ALT) 15 See_Comment [Auto mated message] The system which ge nerated this result transmit thelma reference range : <=65. The reference range was not used to interpr et this result as zana l/abnormal. [facility] [id number] 16:26:00 Test Item Value Reference Range Interpretation Comments AST (test code = AST) 11 See_Comment [Auto mated message] The system which ge nerated this result transmit thelma reference range : <=37. The reference range was not used to interpr et this result as zana l/abnormal. [facility] [id number] 16:26:00 Test Item Value Reference Range Interpretation Comments Alk Phos (test code = Alk Phos) 58 39-136 [facility]2020-03-23 16:26:00 Test Item Value Reference Range Interpretation Comments Bili Total (test code = Bili Total) 0.2 0.2-1.3 [facility] FallsSintact Medical Systems, LLCBLUE RIDGE REGIONAL [id number] 16:26:00 Test Item Value Reference Range Interpretation Comments AGAP (test code = AGAP) 9.3 10.0-20.0 [facility] [id number] 16:26:00 Test Item Value Reference Range Interpretation Comments B/C Ratio (test code = B/C Ratio) 19 1 6-25 [facility] [id number] 16:26:00 Test Item Value Reference Range Interpretation Comments Globulin (test code = Globulin) 3.8 2.7-4.2 [facility] [id number] 16:26:00 Test Item Value Reference Range Interpretation Comments A/G Ratio (test code = A/G Ratio) 0.8 1 0.7-1.6 [facility] [id number] 16:26:00 Test Item Value Reference Range Interpretation Comments eGFR (test code = eGFR) 79 [facility] FallsRock Content [id number] 16:26:00 Test Item Value Reference Range Interpretation Comments Lactic Acid Lvl (test code = Lactic 0.8 0.5-2.2 Acid Lvl) [facility] [id number] 16:26:00 Test Item Value Reference Range Interpretation Comments LDH (test code = LDH) 211 98-192 [facility] [id number] 16:26:00 Test Item Value Reference Range Interpretation Comments WBC (test code = WBC) 12.3 3.7-10.4 [facility] [id number] 16:26:00 Test Item Value Reference Range Interpretation Comments RBC (test code = RBC) 3.87 4.20-5.40 [place] [address]-03-23 16:26:00 Test Item Value Reference Range Interpretation Comments Hgb (test code = Hgb) 9.9 12.0-16.0 [place] [address]-03-23 16:26:00 Test Item Value Reference Range Interpretation Comments Hct (test code = Hct) 31.5 36.0-48.0 [facility] CenterMwjdyuzECVPRLUPLK9984-73-37 16:26:00 Test Item Value Reference Range Interpretation Comments MCV (test code = MCV) 81.2 80.0-98.0 [place] 865100-03-23 16:26:00 Test Item Value Reference Range Interpretation Comments MCH (test code = MCH) 25.5 pg 27.0-31.0 [place] 865100-03-23 16:26:00 Test Item Value Reference Range Interpretation Comments MCHC (test code = MCHC) 31.4 32.0-36.0 [facility] CenterOlqwbmuEQIJRJVHWK4206-56-44 16:26:00 Test Item Value Reference Range Interpretation Comments RDW (test code = RDW) 14.7 11.5-14.5 [place] 865100-03-23 16:26:00 Test Item Value Reference Range Interpretation Comments Platelet (test code = Platelet) 316 133-450 [facility] C[id number] 16:26:00 Test Item Value Reference Range Interpretation Comments MPV (test code = MPV) 8.8 7.4-10.4 [facility] CenterRvnjukxWRREPQWPOU0634-86-59 16:26:00 Test Item Value Reference Range Interpretation Comments PT (test code = PT) 14.0 s 12.0-14.7 [facility] CenterVaftnkzFVOPRDKTSM6274-77-68 16:26:00 Test Item Value Reference Range Interpretation Comments INR (test code = INR) 1.08 1 0.85-1.17 [place] [address]-03-23 16:26:00 Test Item Value Reference Range Interpretation Comments PTT (test code = PTT) 26.0 s 22.9-35.8 [place] [address]-03-23 16:26:00 Test Item Value Reference Range Interpretation Comments Segs (test code = Segs) 94.6 45.0-75.0 [place] [address]-03-23 16:26:00 Test Item Value Reference Range Interpretation Comments Lymphocytes (test code = Lymphocytes) 1.5 20.0-40.0 [place] 865100-03-23 16:26:00 Test Item Value Reference Range Interpretation Comments Monocytes (test code = Monocytes) 2.9 2.0-12.0 [facility] C[id number] 16:26:00 Test Item Value Reference Range Interpretation Comments Eosinophils (test code = 0.6 See_Comment [A utomated message] The Eosinophils) system which ge nerated this result tra nsmitted reference range : <=4.0. The reference r eric was not used to int erpret this result as normal/abnormal . [facility] C[id number] 16:26:00 Test Item Value Reference Range Interpretation Comments Basophils (test code = 0.4 See_Comment [Aut omated message] The Basophils) system which ge nerated this result tra nsmitted reference range : <=1.0. The reference r eric was not used to int erpret this result as normal/abnormal . [facility] CenterZbbokczBCLXJSLKOW6947-65-67 16:26:00 Test Item Value Reference Range Interpretation Comments Neutrophils # (test code = Neutrophils 11.7 1.5-8.1 #) [facility] CenterKcxgadpQPYGBBHEFZ3885-62-31 16:26:00 Test Item Value Reference Range Interpretation Comments Lymphocytes # (test code = Lymphocytes 0.2 1.0-5.5 #) [facility] C[id number] 16:26:00 Test Item Value Reference Range Interpretation Comments Monocytes # (test code 0.4 See_Comment [Aut omated message] The = Monocytes #) system which generated this result tra nsmitted reference range : <=0.8. The reference r eric was not used to int erpret this result as normal/abnormal . [facility] CenterLylfcrkRVGICPZXRX2684-80-37 16:26:00 Test Item Value Reference Range Interpretation Comments Eosinophils # (test code 0.1 See_Comment [A utomated message] The = Eosinophils #) system whic h generated this result tra nsmitted reference range : <=0.5. The reference r eric was not used to int erpret this result as normal/abnormal . [facility] CenterPakymwkMEQKQSZXKS7959-54-32 16:26:00 Test Item Value Reference Range Interpretation Comments C-REACTIVE PROTEIN (test code = 15.4 C-REACTIVE PROTEIN) [facility] AND [id number] 16:26:00 Test Item Value Reference Range Interpretation Comments UA Turbidity (test code = Clear (12/05/19 11:26 UA Turbidity) AM) [facility] AND [id number] 16:26:00 Test Item Value Reference Range Interpretation Comments UA Spec Grav (test code = UA Spec 1.010 1 Grav) [facility] AND [id number] 16:26:00 Test Item Value Reference Range Interpretation Comments UA pH (test code = UA pH) 7.0 1 5.0-8.0 [facility] AND [id number] 16:26:00 Test Item Value Reference Range Interpretation Comments UA Protein (test code = UA Negative mg/dL Protein) [facility] AND [id number] 16:26:00 Test Item Value Reference Range Interpretation Comments UA Glucose (test code = UA Negative mg/dL Glucose) [facility] AND [id number] 16:26:00 Test Item Value Reference Range Interpretation Comments UA Ketones (test code = UA Negative mg/dL Ketones) [facility] AND [id number] 16:26:00 Test Item Value Reference Range Interpretation Comments UA Bili (test code = Negative *NA*(12/05/19 UA Bili) 11:26 AM) [facility] AND [id number] 16:26:00 Test Item Value Reference Range Interpretation Comments UA Blood (test code = Negative (12/05/19 11:26 UA Blood) AM) [facility] AND [id number] 16:26:00 Test Item Value Reference Range Interpretation Comments UA Nitrite (test code Negative (12/05/19 11:26 = UA Nitrite) AM) [facility] AND [id number] 16:26:00 Test Item Value Reference Range Interpretation Comments UA Leuk Est (test Negative (12/05/19 11:26 code = UA Leuk Est) AM) [facility] AND [id number] 16:26:00 Test Item Value Reference Range Interpretation Comments UA Sq Epi (test code = UA Sq Occasional /LPF Epi) [facility] AND [id number] 16:26:00 Test Item Value Reference Range Interpretation Comments UA WBC (test code = no gt See_Comment [Automa thelma message] The UA WBC) system which ge nerated this result transmit thelma reference range : <=5. The reference range was not used to interpr et this result as zana l/abnormal. [facility] Fallsjose [facility] AND [id number] 16:26:00 Test Item Value Reference Range Interpretation Comments UA RBC (test code = no gt See_Comment [Automa thelma message] The UA RBC) system which ge nerated this result transmit thelma reference range : <=2. The reference range was not used to interpr et this result as zana l/abnormal. [facility] Fallsjose [facility]IN[facility] AND [id number] 16:26:00 Test Item Value Reference Range Interpretation Comments UA Mucus (test code = UA Mucus) Few /LPF [facility] AND [id number] 16:26:00 Test Item Value Reference Range Interpretation Comments UA Color (test code = UA Color) YELLOW [facility] AND [id number] 16:26:00 Test Item Value Reference Range Interpretation Comments UA Urobilinogen (test code = UA <=1.0 mg/dL 0.1-1.0 Urobilinogen) [facility] FallsCamAVENIR BE[facility] AT SURPRISEIA [id number] 16:26:00 Test Item Value Reference Range Interpretation Comments Ferritin Lvl (test code = Ferritin Lvl) 19 5-204 [facility] CenterCARDIAC [id number] 16:26:00 Test Item Value Reference Range Interpretation Comments Total CK (test code = Total CK) 24 12-191 [facility] CenterC[facility]AC [id number] 16:26:00 Test Item Value Reference Range Interpretation Comments Troponin-I (test code no gt See_Comment [Auto mated message] The = Troponin-I) system which g enerated this result transmit thelma reference range : <=0.40. The reference r eric was not used to interpr et this result as zana l/abnormal. [facility] [employer] [id number] 16:26:00 Test Item Value Reference Range Interpretation Comments Procalcitonin Lvl (test 1.36 See_Comment [Au tomated message] code = Procalcitonin Lvl) Th e system which generated this result transmitted ref erence range: <=0.10. The reference range was not used to interpr et this result as normal/abnormal . [facility] [employer] [id number] 16:26:00 Test Item Value Reference Range Interpretation Comments Glucose Lvl (test code = Glucose Lvl) 164 70-99 [place] [address]-03-23 16:26:00 Test Item Value Reference Range Interpretation Comments BUN (test code = BUN) 14 7-22 [place] [address]-03-23 16:26:00 Test Item Value Reference Range Interpretation Comments Creatinine Lvl (test code = Creatinine 0.75 0.50-1.40 Lvl) [place] [address]-03-23 16:26:00 Test Item Value Reference Range Interpretation Comments Sodium Lvl (test code = Sodium Lvl) 134 135-145 [place] [address]-03-23 16:26:00 Test Item Value Reference Range Interpretation Comments Potassium Lvl (test code = Potassium 4.3 3.5-5.1 Lvl) [address]03-23 16:26:00 Test Item Value Reference Range Interpretation Comments Chloride Lvl (test code = Chloride Lvl) 104 95-109 [place] [address]-03-23 16:26:00 Test Item Value Reference Range Interpretation Comments CO2 (test code = CO2) 25 24-32 [place] [address]-03-23 16:26:00 Test Item Value Reference Range Interpretation Comments Calcium Lvl (test code = Calcium Lvl) 9.1 8.5-10.5 [place] [address]-03-23 16:26:00 Test Item Value Reference Range Interpretation Comments Total Protein (test code = Total 6.8 6.4-8.4 Protein) [place] [address]-03-23 16:26:00 Test Item Value Reference Range Interpretation Comments Albumin Lvl (test code = Albumin Lvl) 3.0 3.5-5.0 [place] [address]-03-23 16:26:00 Test Item Value Reference Range Interpretation Comments ALT (test code = ALT) 15 See_Comment [Auto mated message] The system which ge nerated this result transmit thelma reference range : <=65. The reference range was not used to interpr et this result as zana l/abnormal. [facility] CenterMuckRock [id number] 16:26:00 Test Item Value Reference Range Interpretation Comments AST (test code = AST) 11 See_Comment [Auto mated message] The system which ge nerated this result transmit thelma reference range : <=37. The reference range was not used to interpr et this result as zana l/abnormal. [place] 392080-03-23 16:26:00 Test Item Value Reference Range Interpretation Comments Alk Phos (test code = Alk Phos) 58 39-136 [place] [address]-03-23 16:26:00 Test Item Value Reference Range Interpretation Comments Bili Total (test code = Bili Total) 0.2 0.2-1.3 [place] 392080-03-23 16:26:00 Test Item Value Reference Range Interpretation Comments AGAP (test code = AGAP) 9.3 10.0-20.0 [place] [address]-03-23 16:26:00 Test Item Value Reference Range Interpretation Comments B/C Ratio (test code = B/C Ratio) 19 1 6-25 [place] [address]-03-23 16:26:00 Test Item Value Reference Range Interpretation Comments Globulin (test code = Globulin) 3.8 2.7-4.2 [place] [address]-03-23 16:26:00 Test Item Value Reference Range Interpretation Comments A/G Ratio (test code = A/G Ratio) 0.8 1 0.7-1.6 [place] [address]-03-23 16:26:00 Test Item Value Reference Range Interpretation Comments eGFR (test code = eGFR) 79 [place] 392080-03-23 16:26:00 Test Item Value Reference Range Interpretation Comments Lactic Acid Lvl (test code = Lactic 0.8 0.5-2.2 Acid Lvl) [place] 392080-03-23 16:26:00 Test Item Value Reference Range Interpretation Comments LDH (test code = LDH) 211 98-192 [place] [address]-03-23 16:26:00 Test Item Value Reference Range Interpretation Comments WBC (test code = WBC) 12.3 3.7-10.4 [place] [address]-03-23 16:26:00 Test Item Value Reference Range Interpretation Comments RBC (test code = RBC) 3.87 4.20-5.40 [place] [address]-03-23 16:26:00 Test Item Value Reference Range Interpretation Comments Hgb (test code = Hgb) 9.9 12.0-16.0 [place] [address]-03-23 16:26:00 Test Item Value Reference Range Interpretation Comments Hct (test code = Hct) 31.5 36.0-48.0 [place] 865100-03-23 16:26:00 Test Item Value Reference Range Interpretation Comments MCV (test code = MCV) 81.2 80.0-98.0 [place] 865100-03-23 16:26:00 Test Item Value Reference Range Interpretation Comments MCH (test code = MCH) 25.5 pg 27.0-31.0 [place] 865100-03-23 16:26:00 Test Item Value Reference Range Interpretation Comments MCHC (test code = MCHC) 31.4 32.0-36.0 [facility] C[id number] 16:26:00 Test Item Value Reference Range Interpretation Comments RDW (test code = RDW) 14.7 11.5-14.5 [facility] C[id number] 16:26:00 Test Item Value Reference Range Interpretation Comments Platelet (test code = Platelet) 316 133-450 [facility] CenterGyylntdXIDAWUQQSV8164-82-65 16:26:00 Test Item Value Reference Range Interpretation Comments MPV (test code = MPV) 8.8 7.4-10.4 [place] [address]-03-23 16:26:00 Test Item Value Reference Range Interpretation Comments PT (test code = PT) 14.0 s 12.0-14.7 [facility] CenterNdqiecxQSONZMPQCA6740-84-29 16:26:00 Test Item Value Reference Range Interpretation Comments INR (test code = INR) 1.08 1 0.85-1.17 [place] [address]-03-23 16:26:00 Test Item Value Reference Range Interpretation Comments PTT (test code = PTT) 26.0 s 22.9-35.8 [place] [address]-03-23 16:26:00 Test Item Value Reference Range Interpretation Comments Segs (test code = Segs) 94.6 45.0-75.0 [place] [address]-03-23 16:26:00 Test Item Value Reference Range Interpretation Comments Lymphocytes (test code = Lymphocytes) 1.5 20.0-40.0 [place] [address]-03-23 16:26:00 Test Item Value Reference Range Interpretation Comments Monocytes (test code = Monocytes) 2.9 2.0-12.0 [facility] C[id number] 16:26:00 Test Item Value Reference Range Interpretation Comments Eosinophils (test code = 0.6 See_Comment [A utomated message] The Eosinophils) system which ge nerated this result tra nsmitted reference range : <=4.0. The reference r eric was not used to int erpret this result as normal/abnormal . [facility] CenterXkymrozVRDPLLFNWJ4021-17-19 16:26:00 Test Item Value Reference Range Interpretation Comments Basophils (test code = 0.4 See_Comment [Aut omated message] The Basophils) system which ge nerated this result tra nsmitted reference range : <=1.0. The reference r eric was not used to int erpret this result as normal/abnormal . [facility] CenterLcidlydITTKQQUERC5378-84-74 16:26:00 Test Item Value Reference Range Interpretation Comments Neutrophils # (test code = Neutrophils 11.7 1.5-8.1 #) [facility] CenterGrtwrwsEIVPZPNCFQ7826-64-82 16:26:00 Test Item Value Reference Range Interpretation Comments Lymphocytes # (test code = Lymphocytes 0.2 1.0-5.5 #) [facility] CenterOmqqtzvKSRAGGJWGB4138-81-93 16:26:00 Test Item Value Reference Range Interpretation Comments Monocytes # (test code 0.4 See_Comment [Aut omated message] The = Monocytes #) system which generated this result tra nsmitted reference range : <=0.8. The reference r eric was not used to int erpret this result as normal/abnormal . [facility] CenterJoskyxgQGPVAQKWLN8265-03-80 16:26:00 Test Item Value Reference Range Interpretation Comments Eosinophils # (test code 0.1 See_Comment [A utomated message] The = Eosinophils #) system whic h generated this result tra nsmitted reference range : <=0.5. The reference r eric was not used to int erpret this result as normal/abnormal . [facility]XphbqioPAEBLFVKSU4034-[facility] 16:26:00 Test Item Value Reference Range Interpretation Comments C-REACTIVE PROTEIN (test code = 15.4 C-REACTIVE PROTEIN) [facility]2020-03-23 16:26:00 Test Item Value Reference Range Interpretation Comments UA Turbidity (test code = Clear (12/05/19 11:26 UA Turbidity) AM) [facility] AND [id number] 16:26:00 Test Item Value Reference Range Interpretation Comments UA Spec Grav (test code = UA Spec 1.010 1 Grav) [facility] AND [id number] 16:26:00 Test Item Value Reference Range Interpretation Comments UA pH (test code = UA pH) 7.0 1 5.0-8.0 [facility] AND [id number] 16:26:00 Test Item Value Reference Range Interpretation Comments UA Protein (test code = UA Negative mg/dL Protein) [facility] AND [id number] 16:26:00 Test Item Value Reference Range Interpretation Comments UA Glucose (test code = UA Negative mg/dL Glucose) [facility] AND [id number] 16:26:00 Test Item Value Reference Range Interpretation Comments UA Ketones (test code = UA Negative mg/dL Ketones) [facility] AND [id number] 16:26:00 Test Item Value Reference Range Interpretation Comments UA Bili (test code = Negative *NA*(12/05/19 UA Bili) 11:26 AM) [facility] AND [id number] 16:26:00 Test Item Value Reference Range Interpretation Comments UA Blood (test code = Negative (12/05/19 11:26 UA Blood) AM) [facility] AND [id number] 16:26:00 Test Item Value Reference Range Interpretation Comments UA Nitrite (test code Negative (12/05/19 11:26 = UA Nitrite) AM) [facility] AND [id number] 16:26:00 Test Item Value Reference Range Interpretation Comments UA Leuk Est (test Negative (12/05/19 11:26 code = UA Leuk Est) AM) [facility] AND [id number] 16:26:00 Test Item Value Reference Range Interpretation Comments UA Sq Epi (test code = UA Sq Occasional /LPF Epi) [facility] AND [id number] 16:26:00 Test Item Value Reference Range Interpretation Comments UA WBC (test code = no gt See_Comment [Automa thelma message] The UA WBC) system which ge nerated this result transmit thelma reference range : <=5. The reference range was not used to interpr et this result as zana l/abnormal. [facility] MapMyIndiaannINSP[facility] AND [id number] 16:26:00 Test Item Value Reference Range Interpretation Comments UA RBC (test code = no gt See_Comment [Automa thelma message] The UA RBC) system which ge nerated this result transmit thelma reference range : <=2. The reference range was not used to interpr et this result as zana l/abnormal. [facility] FallsannURINE AND [id number] 16:26:00 Test Item Value Reference Range Interpretation Comments UA Mucus (test code = UA Mucus) Few /LPF [facility] FallsannINSPIR[facility] AND [id number] 16:26:00 Test Item Value Reference Range Interpretation Comments UA Color (test code = UA Color) YELLOW [facility] AND [id number] 16:26:00 Test Item Value Reference Range Interpretation Comments UA Urobilinogen (test code = UA <=1.0 mg/dL 0.1-1.0 Urobilinogen) [facility] FallsSintact Medical Systems, LLCCARDIAC [id number] 00:35:00 Test Item Value Reference Range Interpretation Comments Total CK (test code = Total CK) 62 12-191 [facility] FallsSintact Medical Systems, LLCCARhurleypalmerflattAC [id number] 00:35:00 Test Item Value Reference Range Interpretation Comments Troponin-I (test code no gt See_Comment [Auto mated message] The = Troponin-I) system which g enerated this result transmit thelma reference range : <=0.40. The reference r eric was not used to interpr et this result as zana l/abnormal. [facility] [employer]CARDIAC [id number] 00:35:00 Test Item Value Reference Range Interpretation Comments BNP (test code = BNP) 25 [facility] [employer] [id number] 00:35:00 Test Item Value Reference Range Interpretation Comments Glucose Lvl (test code = Glucose Lvl) 179 70-99 [facility] [employer] [id number] 00:35:00 Test Item Value Reference Range Interpretation Comments BUN (test code = BUN) 32 7-22 [facility] [employer] [id number] 00:35:00 Test Item Value Reference Range Interpretation Comments Creatinine Lvl (test code = Creatinine 1.26 0.50-1.40 Lvl) [facility] FallsSintact Medical Systems, LLCBLUE RIDGE REGIONAL [id number] 00:35:00 Test Item Value Reference Range Interpretation Comments Sodium Lvl (test code = Sodium Lvl) 139 135-145 [place] 392080-03-07 00:35:00 Test Item Value Reference Range Interpretation Comments Potassium Lvl (test code = Potassium 4.1 3.5-5.1 Lvl) [place] 392080-03-07 00:35:00 Test Item Value Reference Range Interpretation Comments Chloride Lvl (test code = Chloride Lvl) 110 95-109 [facility] FallsSintact Medical Systems, LLCTAYLOR [place] [id number] 00:35:00 Test Item Value Reference Range Interpretation Comments CO2 (test code = CO2) 22 24-32 [place] 392080-03-07 00:35:00 Test Item Value Reference Range Interpretation Comments Calcium Lvl (test code = Calcium Lvl) 9.3 8.5-10.5 [place] 392080-03-07 00:35:00 Test Item Value Reference Range Interpretation Comments Total Protein (test code = Total 7.2 6.4-8.4 Protein) [place] 392080-03-07 00:35:00 Test Item Value Reference Range Interpretation Comments Albumin Lvl (test code = Albumin Lvl) 3.4 3.5-5.0 [facility] CenterMuckRock [id number] 00:35:00 Test Item Value Reference Range Interpretation Comments ALT (test code = ALT) 16 See_Comment [Auto mated message] The system which ge nerated this result transmit thelma reference range : <=65. The reference range was not used to interpr et this result as zana l/abnormal. [facility] CenterMuckRock [id number] 00:35:00 Test Item Value Reference Range Interpretation Comments AST (test code = AST) 9 See_Comment [Auto mated message] The system which ge nerated this result transmit thelma reference range : <=37. The reference range was not used to interpr et this result as zana l/abnormal. [facility] CenterMuckRock [id number] 00:35:00 Test Item Value Reference Range Interpretation Comments Alk Phos (test code = Alk Phos) 69 39-136 [facility] FallsRock Content [id number] 00:35:00 Test Item Value Reference Range Interpretation Comments Bili Total (test code = Bili Total) 0.2 0.2-1.3 [facility] [id number] 00:35:00 Test Item Value Reference Range Interpretation Comments AGAP (test code = AGAP) 11.1 10.0-20.0 [facility] [id number] 00:35:00 Test Item Value Reference Range Interpretation Comments B/C Ratio (test code = B/C Ratio) 25 1 6-25 [facility] [id number] 00:35:00 Test Item Value Reference Range Interpretation Comments Globulin (test code = Globulin) 3.8 2.7-4.2 [facility] [id number] 00:35:00 Test Item Value Reference Range Interpretation Comments A/G Ratio (test code = A/G Ratio) 0.9 1 0.7-1.6 [facility] [id number] 00:35:00 Test Item Value Reference Range Interpretation Comments eGFR (test code = eGFR) 42 [facility] CenterYfduvgfYVAPOQRFZI0373-04-74 00:35:00 Test Item Value Reference Range Interpretation Comments Segs (test code = Segs) 52.3 45.0-75.0 [facility]FcdmafzWUZGZQYAPI9184-11-03 00:35:00 Test Item Value Reference Range Interpretation Comments Lymphocytes (test code = Lymphocytes) 24.7 20.0-40.0 [place] 865100-03-07 00:35:00 Test Item Value Reference Range Interpretation Comments Monocytes (test code = Monocytes) 8.2 2.0-12.0 [place] 865100-03-07 00:35:00 Test Item Value Reference Range Interpretation Comments Eosinophils (test code = 14.0 See_Comment [A utomated message] The Eosinophils) system which ge nerated this result tra nsmitted reference range : <=4.0. The reference r eric was not used to int erpret this result as normal/abnormal . [place] 865100-03-07 00:35:00 Test Item Value Reference Range Interpretation Comments Basophils (test code = 0.8 See_Comment [Aut omated message] The Basophils) system which ge nerated this result tra nsmitted reference range : <=1.0. The reference r eric was not used to int erpret this result as normal/abnormal . [facility] CenterIyqpyxwPEMFJTTQTZ3062-57-56 00:35:00 Test Item Value Reference Range Interpretation Comments Neutrophils # (test code = Neutrophils 3.4 1.5-8.1 #) [facility] CenterLqiurvuLBDBXHGAPY3081-94-05 00:35:00 Test Item Value Reference Range Interpretation Comments Lymphocytes # (test code = Lymphocytes 1.6 1.0-5.5 #) [facility] CenterWinedtnSWZTUZRXQS9703-06-85 00:35:00 Test Item Value Reference Range Interpretation Comments Monocytes # (test code 0.5 See_Comment [Aut omated message] The = Monocytes #) system which generated this result tra nsmitted reference range : <=0.8. The reference r eric was not used to int erpret this result as normal/abnormal . [facility] CenterLuaoibgIPGPLPCSUG1613-30-37 00:35:00 Test Item Value Reference Range Interpretation Comments Eosinophils # (test code 0.9 See_Comment [A utomated message] The = Eosinophils #) system whic h generated this result tra nsmitted reference range : <=0.5. The reference r eric was not used to int erpret this result as normal/abnormal . [facility] CenterZhuqbyjUGXABGONAN7381-25-75 00:35:00 Test Item Value Reference Range Interpretation Comments Basophils # (test code 0.1 See_Comment [Aut omated message] The = Basophils #) system which generated this result tra nsmitted reference range : <=0.2. The reference r eric was not used to int erpret this result as normal/abnormal . [facility] CenterTdkaqznEIEEMDEBKA4196-67-97 00:35:00 Test Item Value Reference Range Interpretation Comments WBC (test code = WBC) 6.4 3.7-10.4 [facility] CenterJftndyjYCECKUIABE8858-94-81 00:35:00 Test Item Value Reference Range Interpretation Comments RBC (test code = RBC) 4.04 4.20-5.40 [facility] CenterIsipenvDRVNYBUFPO8453-34-19 00:35:00 Test Item Value Reference Range Interpretation Comments Hgb (test code = Hgb) 10.4 12.0-16.0 [facility] CenterSpjdrmbIOVTNWJKJB9499-12-21 00:35:00 Test Item Value Reference Range Interpretation Comments Hct (test code = Hct) 33.5 36.0-48.0 [facility] HospitalMmpnoewVJFAELGXVS3678-04-37 00:35:00 Test Item Value Reference Range Interpretation Comments MCV (test code = MCV) 82.9 80.0-98.0 [facility] HospitalOepsokrYWJTGWKNZF9686-73-40 00:35:00 Test Item Value Reference Range Interpretation Comments MCH (test code = MCH) 25.9 pg 27.0-31.0 [facility] HospitalMzkwoenPSSYDAKVIA1772-05-12 00:35:00 Test Item Value Reference Range Interpretation Comments MCHC (test code = MCHC) 31.2 32.0-36.0 [facility] HospitalHtkifqaHNHUHGVHPE8392-60-31 00:35:00 Test Item Value Reference Range Interpretation Comments RDW (test code = RDW) 14.9 11.5-14.5 [facility] HospitalMhhfwqaZGZUYQFUQY0646-39-48 00:35:00 Test Item Value Reference Range Interpretation Comments Platelet (test code = Platelet) 282 133-450 [facility] HospitalWxzybqvUUZGCQCGOY2860-67-44 00:35:00 Test Item Value Reference Range Interpretation Comments MPV (test code = MPV) 8.8 7.4-10.4 [facility] HospitalUyxyinaCPUWKRLYVC7095-64-40 00:35:00 Test Item Value Reference Range Interpretation Comments PT (test code = PT) 13.5 s 12.0-14.7 [facility] HospitalAekaiuwVFPASSXEOS2767-32-28 00:35:00 Test Item Value Reference Range Interpretation Comments INR (test code = INR) 1.03 1 0.85-1.17 [facility] HospitalSmtnglfVSZMLOTNNZ3674-91-55 00:35:00 Test Item Value Reference Range Interpretation Comments PTT (test code = PTT) 27.4 s 22.9-35.8 [facility] Centerlinkedü VMRHFHW7400-08-80 00:35:00 Test Item Value Reference Range Interpretation Comments Total CK (test code = Total CK) 62 12-191 [facility] [id number] 00:35:00 Test Item Value Reference Range Interpretation Comments Troponin-I (test code no gt See_Comment [Auto mated message] The = Troponin-I) system which g enerated this result transmit thelma reference range : <=0.40. The reference r eric was not used to interpr et this result as zana l/abnormal. [facility] CenterLagoon FAPQWKQ7478-62-52 00:35:00 Test Item Value Reference Range Interpretation Comments BNP (test code = BNP) 25 [facility] [id number] 00:35:00 Test Item Value Reference Range Interpretation Comments Glucose Lvl (test code = Glucose Lvl) 179 70-99 [facility]2020-03-07 00:35:00 Test Item Value Reference Range Interpretation Comments BUN (test code = BUN) 32 7-22 [facility]2020-03-07 00:35:00 Test Item Value Reference Range Interpretation Comments Creatinine Lvl (test code = Creatinine 1.26 0.50-1.40 Lvl) [facility] [id number] 00:35:00 Test Item Value Reference Range Interpretation Comments Sodium Lvl (test code = Sodium Lvl) 139 135-145 [facility]2020-03-07 00:35:00 Test Item Value Reference Range Interpretation Comments Potassium Lvl (test code = Potassium 4.1 3.5-5.1 Lvl) [facility]2020-03-07 00:35:00 Test Item Value Reference Range Interpretation Comments Chloride Lvl (test code = Chloride Lvl) 110 95-109 [facility]2020-03-07 00:35:00 Test Item Value Reference Range Interpretation Comments CO2 (test code = CO2) 22 24-32 [facility]2020-03-07 00:35:00 Test Item Value Reference Range Interpretation Comments Calcium Lvl (test code = Calcium Lvl) 9.3 8.5-10.5 [facility]2020-03-07 00:35:00 Test Item Value Reference Range Interpretation Comments Total Protein (test code = Total 7.2 6.4-8.4 Protein) [facility]2020-03-07 00:35:00 Test Item Value Reference Range Interpretation Comments Albumin Lvl (test code = Albumin Lvl) 3.4 3.5-5.0 [facility]2020-03-07 00:35:00 Test Item Value Reference Range Interpretation Comments ALT (test code = ALT) 16 See_Comment [Auto mated message] The system which ge nerated this result transmit thelma reference range : <=65. The reference range was not used to interpr et this result as zana l/abnormal. [facility] CenterMuckRock [id number] 00:35:00 Test Item Value Reference Range Interpretation Comments AST (test code = AST) 9 See_Comment [Auto mated message] The system which ge nerated this result transmit thelma reference range : <=37. The reference range was not used to interpr et this result as zana l/abnormal. [facility] FallsRock Content [id number] 00:35:00 Test Item Value Reference Range Interpretation Comments Alk Phos (test code = Alk Phos) 69 39-136 [facility] FallsRock [facility] [id number] 00:35:00 Test Item Value Reference Range Interpretation Comments Bili Total (test code = Bili Total) 0.2 0.2-1.3 [facility] [id number] 00:35:00 Test Item Value Reference Range Interpretation Comments AGAP (test code = AGAP) 11.1 10.0-20.0 [facility] [id number] 00:35:00 Test Item Value Reference Range Interpretation Comments B/C Ratio (test code = B/C Ratio) 25 1 6-25 [facility] [id number] 00:35:00 Test Item Value Reference Range Interpretation Comments Globulin (test code = Globulin) 3.8 2.7-4.2 [facility] [id number] 00:35:00 Test Item Value Reference Range Interpretation Comments A/G Ratio (test code = A/G Ratio) 0.9 1 0.7-1.6 [facility] [id number] 00:35:00 Test Item Value Reference Range Interpretation Comments eGFR (test code = eGFR) 42 [facility] CenterGgvwhceNIHYMWSKNV8421-96-75 00:35:00 Test Item Value Reference Range Interpretation Comments Segs (test code = Segs) 52.3 45.0-75.0 [facility] FallsOtmiayuJBQFDVZIGN3628-13-85 00:35:00 Test Item Value Reference Range Interpretation Comments Lymphocytes (test code = Lymphocytes) 24.7 20.0-40.0 [facility] FallsPdocjmaDQDVLNAVRK8512-83-57 00:35:00 Test Item Value Reference Range Interpretation Comments Monocytes (test code = Monocytes) 8.2 2.0-12.0 [facility] FallsZhpebhrBQLWRORKCZ3867-27-94 00:35:00 Test Item Value Reference Range Interpretation Comments Eosinophils (test code = 14.0 See_Comment [A utomated message] The Eosinophils) system which ge nerated this result tra nsmitted reference range : <=4.0. The reference r eric was not used to int erpret this result as normal/abnormal . [place] 865100-03-07 00:35:00 Test Item Value Reference Range Interpretation Comments Basophils (test code = 0.8 See_Comment [Aut omated message] The Basophils) system which ge nerated this result tra nsmitted reference range : <=1.0. The reference r eric was not used to int erpret this result as normal/abnormal . [place] 865100-03-07 00:35:00 Test Item Value Reference Range Interpretation Comments Neutrophils # (test code = Neutrophils 3.4 1.5-8.1 #) [place] 865100-03-07 00:35:00 Test Item Value Reference Range Interpretation Comments Lymphocytes # (test code = Lymphocytes 1.6 1.0-5.5 #) [place] 865100-03-07 00:35:00 Test Item Value Reference Range Interpretation Comments Monocytes # (test code 0.5 See_Comment [Aut omated message] The = Monocytes #) system which generated this result tra nsmitted reference range : <=0.8. The reference r eric was not used to int erpret this result as normal/abnormal . [place] 865100-03-07 00:35:00 Test Item Value Reference Range Interpretation Comments Eosinophils # (test code 0.9 See_Comment [A utomated message] The = Eosinophils #) system whic h generated this result tra nsmitted reference range : <=0.5. The reference r eric was not used to int erpret this result as normal/abnormal . [place] 865100-03-07 00:35:00 Test Item Value Reference Range Interpretation Comments Basophils # (test code 0.1 See_Comment [Aut omated message] The = Basophils #) system which generated this result tra nsmitted reference range : <=0.2. The reference r eric was not used to int erpret this result as normal/abnormal . [place] 865100-03-07 00:35:00 Test Item Value Reference Range Interpretation Comments WBC (test code = WBC) 6.4 3.7-10.4 [facility] FallsKibhgovGGWEXWUEJX6398-24-88 00:35:00 Test Item Value Reference Range Interpretation Comments RBC (test code = RBC) 4.04 4.20-5.40 [facility] FallsVpewntgPUCKVXGULI6671-59-32 00:35:00 Test Item Value Reference Range Interpretation Comments Hgb (test code = Hgb) 10.4 12.0-16.0 [facility] FallsUggsmseLMBDVRMUEL4852-94-49 00:35:00 Test Item Value Reference Range Interpretation Comments Hct (test code = Hct) 33.5 36.0-48.0 [facility] FallsLjlylzoEZJISESHWJ8599-70-32 00:35:00 Test Item Value Reference Range Interpretation Comments MCV (test code = MCV) 82.9 80.0-98.0 [facility] FallsWwyftdaYBWMJUYAXJ1087-37-57 00:35:00 Test Item Value Reference Range Interpretation Comments MCH (test code = MCH) 25.9 pg 27.0-31.0 [facility] FallsPfxnfbnBHRRTIDXCX5297-36-51 00:35:00 Test Item Value Reference Range Interpretation Comments MCHC (test code = MCHC) 31.2 32.0-36.0 [facility] FallsWsemtusMPUBGUFZYQ2852-54-46 00:35:00 Test Item Value Reference Range Interpretation Comments RDW (test code = RDW) 14.9 11.5-14.5 [facility] FallsGcbhzxnIIXWJSTKQK1669-67-15 00:35:00 Test Item Value Reference Range Interpretation Comments Platelet (test code = Platelet) 282 133-450 [facility] FallsCpdietjYNZDIAKGGC4953-52-65 00:35:00 Test Item Value Reference Range Interpretation Comments MPV (test code = MPV) 8.8 7.4-10.4 [facility] FallsUikmpalUWFZXLJRCG4449-75-15 00:35:00 Test Item Value Reference Range Interpretation Comments PT (test code = PT) 13.5 s 12.0-14.7 [facility] FallsBqhcmuvIEMCNMOFOX4331-21-76 00:35:00 Test Item Value Reference Range Interpretation Comments INR (test code = INR) 1.03 1 0.85-1.17 [facility] FallsIbliyrfUQRQBYDJBO0423-26-67 00:35:00 Test Item Value Reference Range Interpretation Comments PTT (test code = PTT) 27.4 s 22.9-35.8 [place] 392080-02-08 09:04:00 Test Item Value Reference Range Interpretation Comments Glucose Lvl (test code = Glucose Lvl) 92 70-99 [place] 392080-02-08 09:04:00 Test Item Value Reference Range Interpretation Comments BUN (test code = BUN) 15 7-22 [place] 392080-02-08 09:04:00 Test Item Value Reference Range Interpretation Comments Creatinine Lvl (test code = Creatinine 0.72 0.50-1.40 Lvl) [facility]2020-02-08 09:04:00 Test Item Value Reference Range Interpretation Comments Sodium Lvl (test code = Sodium Lvl) 141 135-145 [place] 392080-02-08 09:04:00 Test Item Value Reference Range Interpretation Comments Potassium Lvl (test code = Potassium 3.9 3.5-5.1 Lvl) [place] 392080-02-08 09:04:00 Test Item Value Reference Range Interpretation Comments Chloride Lvl (test code = Chloride Lvl) 110 95-109 [place] 392080-02-08 09:04:00 Test Item Value Reference Range Interpretation Comments CO2 (test code = CO2) 26 24-32 [place] 392080-02-08 09:04:00 Test Item Value Reference Range Interpretation Comments Calcium Lvl (test code = Calcium Lvl) 8.6 8.5-10.5 [place] 392080-02-08 09:04:00 Test Item Value Reference Range Interpretation Comments AGAP (test code = AGAP) 8.9 10.0-20.0 [place] 392080-02-08 09:04:00 Test Item Value Reference Range Interpretation Comments eGFR (test code = eGFR) 84 [place] 865100-02-08 09:04:00 Test Item Value Reference Range Interpretation Comments WBC (test code = WBC) 6.7 3.7-10.4 [place] 865100-02-08 09:04:00 Test Item Value Reference Range Interpretation Comments RBC (test code = RBC) 3.39 4.20-5.40 [place] 865100-02-08 09:04:00 Test Item Value Reference Range Interpretation Comments Hgb (test code = Hgb) 9.0 12.0-16.0 [place] 865100-02-08 09:04:00 Test Item Value Reference Range Interpretation Comments Hct (test code = Hct) 27.8 36.0-48.0 [facility] CenterUruomjhJAAUTQDTVN2489-40-51 09:04:00 Test Item Value Reference Range Interpretation Comments MCV (test code = MCV) 82.2 80.0-98.0 [facility] CenterVwssukqGISXGGPIJQ5993-38-48 09:04:00 Test Item Value Reference Range Interpretation Comments MCH (test code = MCH) 26.7 pg 27.0-31.0 [place] 865100-02-08 09:04:00 Test Item Value Reference Range Interpretation Comments MCHC (test code = MCHC) 32.5 32.0-36.0 [facility] CenterYsrgedrIQFBBVVQYC2450-60-92 09:04:00 Test Item Value Reference Range Interpretation Comments RDW (test code = RDW) 14.9 11.5-14.5 [facility] CenterXqptkasLRUJGAGLFH5100-52-38 09:04:00 Test Item Value Reference Range Interpretation Comments Platelet (test code = Platelet) 252 133-450 [facility] CenterLnmjwrkUEUESDCTIS6852-81-12 09:04:00 Test Item Value Reference Range Interpretation Comments MPV (test code = MPV) 8.6 7.4-10.4 [facility] CenterCycjmutICJLBCFFEL3380-24-92 09:04:00 Test Item Value Reference Range Interpretation Comments Segs (test code = Segs) 55.6 45.0-75.0 [facility] CenterDgphtfkYFECHQQQNQ8737-46-59 09:04:00 Test Item Value Reference Range Interpretation Comments Lymphocytes (test code = Lymphocytes) 28.1 20.0-40.0 [facility] CenterPviosuqHUUVSZHIXB4874-85-47 09:04:00 Test Item Value Reference Range Interpretation Comments Monocytes (test code = Monocytes) 9.2 2.0-12.0 [place] 865100-02-08 09:04:00 Test Item Value Reference Range Interpretation Comments Eosinophils (test code = 6.1 See_Comment [A utomated message] The Eosinophils) system which ge nerated this result tra nsmitted reference range : <=4.0. The reference r eric was not used to int erpret this result as normal/abnormal . [facility] CenterCjtwopoTQKODGSTZX0947-77-66 09:04:00 Test Item Value Reference Range Interpretation Comments Basophils (test code = 1.0 See_Comment [Aut omated message] The Basophils) system which ge nerated this result tra nsmitted reference range : <=1.0. The reference r eric was not used to int erpret this result as normal/abnormal . [facility] CenterClqxbnrUYHNZLANJF3709-84-92 09:04:00 Test Item Value Reference Range Interpretation Comments Neutrophils # (test code = Neutrophils 3.7 1.5-8.1 #) [facility] CenterDxiahvzDKOKWYEUWN8897-96-84 09:04:00 Test Item Value Reference Range Interpretation Comments Lymphocytes # (test code = Lymphocytes 1.9 1.0-5.5 #) [facility] CenterVyidmwuKTMUSSGBLQ2706-85-29 09:04:00 Test Item Value Reference Range Interpretation Comments Monocytes # (test code 0.6 See_Comment [Aut omated message] The = Monocytes #) system which generated this result tra nsmitted reference range : <=0.8. The reference r eric was not used to int erpret this result as normal/abnormal . [facility] CenterGuacbkdURQDLLKDGT9804-75-81 09:04:00 Test Item Value Reference Range Interpretation Comments Eosinophils # (test code 0.4 See_Comment [A utomated message] The = Eosinophils #) system whic h generated this result tra nsmitted reference range : <=0.5. The reference r eric was not used to int erpret this result as normal/abnormal . [facility] CenterDpsqczaVXTLURVGMS3721-81-36 09:04:00 Test Item Value Reference Range Interpretation Comments Basophils # (test code 0.1 See_Comment [Aut omated message] The = Basophils #) system which generated this result tra nsmitted reference range : <=0.2. The reference r eric was not used to int erpret this result as normal/abnormal . [place] 392080-02-08 09:04:00 Test Item Value Reference Range Interpretation Comments Glucose Lvl (test code = Glucose Lvl) 92 70-99 [place] 392080-02-08 09:04:00 Test Item Value Reference Range Interpretation Comments BUN (test code = BUN) 15 7-22 [place] 392080-02-08 09:04:00 Test Item Value Reference Range Interpretation Comments Creatinine Lvl (test code = Creatinine 0.72 0.50-1.40 Lvl) [facility]2020-02-08 09:04:00 Test Item Value Reference Range Interpretation Comments Sodium Lvl (test code = Sodium Lvl) 141 135-145 [facility]2020-02-08 09:04:00 Test Item Value Reference Range Interpretation Comments Potassium Lvl (test code = Potassium 3.9 3.5-5.1 Lvl) [facility]2020-02-08 09:04:00 Test Item Value Reference Range Interpretation Comments Chloride Lvl (test code = Chloride Lvl) 110 95-109 [facility]2020-02-08 09:04:00 Test Item Value Reference Range Interpretation Comments CO2 (test code = CO2) 26 24-32 [place] 392080-02-08 09:04:00 Test Item Value Reference Range Interpretation Comments Calcium Lvl (test code = Calcium Lvl) 8.6 8.5-10.5 [facility]2020-02-08 09:04:00 Test Item Value Reference Range Interpretation Comments AGAP (test code = AGAP) 8.9 10.0-20.0 [facility]2020-02-08 09:04:00 Test Item Value Reference Range Interpretation Comments eGFR (test code = eGFR) 84 [facility] CenterLhyjfzzQDUFKTOOSX7072-90-60 09:04:00 Test Item Value Reference Range Interpretation Comments WBC (test code = WBC) 6.7 3.7-10.4 [facility] CenterOilrpoeQORRANSRPC7719-81-71 09:04:00 Test Item Value Reference Range Interpretation Comments RBC (test code = RBC) 3.39 4.20-5.40 [place] 865100-02-08 09:04:00 Test Item Value Reference Range Interpretation Comments Hgb (test code = Hgb) 9.0 12.0-16.0 [place] [address]-02-08 09:04:00 Test Item Value Reference Range Interpretation Comments Hct (test code = Hct) 27.8 36.0-48.0 [place] [address]-02-08 09:04:00 Test Item Value Reference Range Interpretation Comments MCV (test code = MCV) 82.2 80.0-98.0 [place] [address]-02-08 09:04:00 Test Item Value Reference Range Interpretation Comments MCH (test code = MCH) 26.7 pg 27.0-31.0 [facility] CenterPoogrduIJJCUFTANF4445-36-45 09:04:00 Test Item Value Reference Range Interpretation Comments MCHC (test code = MCHC) 32.5 32.0-36.0 [facility] CenterFmidiiiZKKMDWWJEZ4938-48-09 09:04:00 Test Item Value Reference Range Interpretation Comments RDW (test code = RDW) 14.9 11.5-14.5 [facility] CenterXejirluRTHXIDJGPF7054-24-44 09:04:00 Test Item Value Reference Range Interpretation Comments Platelet (test code = Platelet) 252 133-450 [facility] CenterFpgtceiMJVJJJEBRV1098-53-15 09:04:00 Test Item Value Reference Range Interpretation Comments MPV (test code = MPV) 8.6 7.4-10.4 [facility] CenterObbaivvDDDCNHHMNX5661-30-29 09:04:00 Test Item Value Reference Range Interpretation Comments Segs (test code = Segs) 55.6 45.0-75.0 [facility] CenterSgwfbkdFAMWRJIJWC7093-02-55 09:04:00 Test Item Value Reference Range Interpretation Comments Lymphocytes (test code = Lymphocytes) 28.1 20.0-40.0 [facility] CenterJnbefvxBVFXQBGFXL2878-25-35 09:04:00 Test Item Value Reference Range Interpretation Comments Monocytes (test code = Monocytes) 9.2 2.0-12.0 [facility] CenterHydjoyqNKELWNBGVT5655-78-84 09:04:00 Test Item Value Reference Range Interpretation Comments Eosinophils (test code = 6.1 See_Comment [A utomated message] The Eosinophils) system which ge nerated this result tra nsmitted reference range : <=4.0. The reference r eric was not used to int erpret this result as normal/abnormal . [facility] CenterJsiiqioCORXXJCRWB4895-62-60 09:04:00 Test Item Value Reference Range Interpretation Comments Basophils (test code = 1.0 See_Comment [Aut omated message] The Basophils) system which ge nerated this result tra nsmitted reference range : <=1.0. The reference r eric was not used to int erpret this result as normal/abnormal . [facility] CenterIcnscsfMEOSVOTKVZ6266-58-36 09:04:00 Test Item Value Reference Range Interpretation Comments Neutrophils # (test code = Neutrophils 3.7 1.5-8.1 #) [place] [address]-02-08 09:04:00 Test Item Value Reference Range Interpretation Comments Lymphocytes # (test code = Lymphocytes 1.9 1.0-5.5 #) [place] [address]-02-08 09:04:00 Test Item Value Reference Range Interpretation Comments Monocytes # (test code 0.6 See_Comment [Aut omated message] The = Monocytes #) system which generated this result tra nsmitted reference range : <=0.8. The reference r eric was not used to int erpret this result as normal/abnormal . [place] [address]-02-08 09:04:00 Test Item Value Reference Range Interpretation Comments Eosinophils # (test code 0.4 See_Comment [A utomated message] The = Eosinophils #) system whic h generated this result tra nsmitted reference range : <=0.5. The reference r eric was not used to int erpret this result as normal/abnormal . [place] [address]-02-08 09:04:00 Test Item Value Reference Range Interpretation Comments Basophils # (test code 0.1 See_Comment [Aut omated message] The = Basophils #) system which generated this result tra nsmitted reference range : <=0.2. The reference r eric was not used to int erpret this result as normal/abnormal . [facility]2020-02-07 09:19:00 Test Item Value Reference Range Interpretation Comments Glucose Lvl (test code = Glucose Lvl) 72 70-99 [place] 392080-02-07 09:19:00 Test Item Value Reference Range Interpretation Comments BUN (test code = BUN) 20 7-22 [place] [address]-02-07 09:19:00 Test Item Value Reference Range Interpretation Comments Creatinine Lvl (test code = Creatinine 0.71 0.50-1.40 Lvl) [place] 392080-02-07 09:19:00 Test Item Value Reference Range Interpretation Comments Sodium Lvl (test code = Sodium Lvl) 141 135-145 [place] 392080-02-07 09:19:00 Test Item Value Reference Range Interpretation Comments Potassium Lvl (test code = Potassium 4.0 3.5-5.1 Lvl) [place] 392080-02-07 09:19:00 Test Item Value Reference Range Interpretation Comments Chloride Lvl (test code = Chloride Lvl) 108 95-109 [place] 392080-02-07 09:19:00 Test Item Value Reference Range Interpretation Comments CO2 (test code = CO2) 24 24-32 [place] 392080-02-07 09:19:00 Test Item Value Reference Range Interpretation Comments AGAP (test code = AGAP) 13.0 10.0-20.0 [place] 392080-02-07 09:19:00 Test Item Value Reference Range Interpretation Comments Calcium Lvl (test code = Calcium Lvl) 9.1 8.5-10.5 [place] 392080-02-07 09:19:00 Test Item Value Reference Range Interpretation Comments B/C Ratio (test code = B/C Ratio) 28 1 6-25 [place] 392080-02-07 09:19:00 Test Item Value Reference Range Interpretation Comments Total Protein (test code = Total 6.3 6.4-8.4 Protein) [place] 392080-02-07 09:19:00 Test Item Value Reference Range Interpretation Comments Albumin Lvl (test code = Albumin Lvl) 2.9 3.5-5.0 [place] 392080-02-07 09:19:00 Test Item Value Reference Range Interpretation Comments Globulin (test code = Globulin) 3.4 2.7-4.2 [place] 392080-02-07 09:19:00 Test Item Value Reference Range Interpretation Comments A/G Ratio (test code = A/G Ratio) 0.9 1 0.7-1.6 [place] [address]-02-07 09:19:00 Test Item Value Reference Range Interpretation Comments ALT (test code = ALT) 15 See_Comment [Auto mated message] The system which ge nerated this result transmit thelma reference range : <=65. The reference range was not used to interpr et this result as zana l/abnormal. [facility] [id number] 09:19:00 Test Item Value Reference Range Interpretation Comments AST (test code = AST) 16 See_Comment [Auto mated message] The system which ge nerated this result transmit thelma reference range : <=37. The reference range was not used to interpr et this result as zana l/abnormal. [place] 392080-02-07 09:19:00 Test Item Value Reference Range Interpretation Comments Alk Phos (test code = Alk Phos) 56 39-136 [place] [address]-02-07 09:19:00 Test Item Value Reference Range Interpretation Comments Bili Total (test code = Bili Total) 0.3 0.2-1.3 [place] [address]-02-07 09:19:00 Test Item Value Reference Range Interpretation Comments eGFR (test code = eGFR) 84 [place] 865100-02-07 09:19:00 Test Item Value Reference Range Interpretation Comments Segs (test code = Segs) 75.0 45.0-75.0 [place] [address]-02-07 09:19:00 Test Item Value Reference Range Interpretation Comments Lymphocytes (test code = Lymphocytes) 14.1 20.0-40.0 [place] [address]-02-07 09:19:00 Test Item Value Reference Range Interpretation Comments Monocytes (test code = Monocytes) 8.4 2.0-12.0 [place] [address]-02-07 09:19:00 Test Item Value Reference Range Interpretation Comments Eosinophils (test code = 1.9 See_Comment [A utomated message] The Eosinophils) system which ge nerated this result tra nsmitted reference range : <=4.0. The reference r eric was not used to int erpret this result as normal/abnormal . [facility]cegujNDMOYXONPY0596-67-58 09:19:00 Test Item Value Reference Range Interpretation Comments Basophils (test code = 0.6 See_Comment [Aut omated message] The Basophils) system which ge nerated this result tra nsmitted reference range : <=1.0. The reference r eric was not used to int erpret this result as normal/abnormal . [place] 865100-02-07 09:19:00 Test Item Value Reference Range Interpretation Comments Neutrophils # (test code = Neutrophils 8.1 1.5-8.1 #) [place] [address]-02-07 09:19:00 Test Item Value Reference Range Interpretation Comments Lymphocytes # (test code = Lymphocytes 1.5 1.0-5.5 #) [facility] CenterWpseffxHWNUITKUZX9602-66-79 09:19:00 Test Item Value Reference Range Interpretation Comments Monocytes # (test code 0.9 See_Comment [Aut omated message] The = Monocytes #) system which generated this result tra nsmitted reference range : <=0.8. The reference r eric was not used to int erpret this result as normal/abnormal . [facility] CenterBmhqiekBGYYIJXRUS2084-30-21 09:19:00 Test Item Value Reference Range Interpretation Comments Eosinophils # (test code 0.2 See_Comment [A utomated message] The = Eosinophils #) system whic h generated this result tra nsmitted reference range : <=0.5. The reference r eric was not used to int erpret this result as normal/abnormal . [facility] CenterYyiaimwEICPVANWXO1693-34-43 09:19:00 Test Item Value Reference Range Interpretation Comments Basophils # (test code 0.1 See_Comment [Aut omated message] The = Basophils #) system which generated this result tra nsmitted reference range : <=0.2. The reference r eric was not used to int erpret this result as normal/abnormal . [facility] CenterOfqtridBNZWZSNSHW0543-64-32 09:19:00 Test Item Value Reference Range Interpretation Comments WBC (test code = WBC) 10.8 3.7-10.4 [facility] CenterUuegybrJEKLUOBLSU7451-59-98 09:19:00 Test Item Value Reference Range Interpretation Comments RBC (test code = RBC) 3.78 4.20-5.40 [facility] CenterDavsbleNKWULHVHPC4608-26-15 09:19:00 Test Item Value Reference Range Interpretation Comments Hgb (test code = Hgb) 9.9 12.0-16.0 [place] 865100-02-07 09:19:00 Test Item Value Reference Range Interpretation Comments Hct (test code = Hct) 30.9 36.0-48.0 [place] 865100-02-07 09:19:00 Test Item Value Reference Range Interpretation Comments MCV (test code = MCV) 81.9 80.0-98.0 [facility] CenterBbscjulHIMOEKHUBE2782-58-22 09:19:00 Test Item Value Reference Range Interpretation Comments MCH (test code = MCH) 26.3 pg 27.0-31.0 [place] [address]-02-07 09:19:00 Test Item Value Reference Range Interpretation Comments MCHC (test code = MCHC) 32.1 32.0-36.0 [place] 865100-02-07 09:19:00 Test Item Value Reference Range Interpretation Comments RDW (test code = RDW) 15.2 11.5-14.5 [place] [address]-02-07 09:19:00 Test Item Value Reference Range Interpretation Comments Platelet (test code = Platelet) 298 133-450 [place] 865100-02-07 09:19:00 Test Item Value Reference Range Interpretation Comments MPV (test code = MPV) 8.2 7.4-10.4 [facility]2020-02-07 09:19:00 Test Item Value Reference Range Interpretation Comments Glucose Lvl (test code = Glucose Lvl) 72 70-99 [place] 392080-02-07 09:19:00 Test Item Value Reference Range Interpretation Comments BUN (test code = BUN) 20 7-22 [place] 392080-02-07 09:19:00 Test Item Value Reference Range Interpretation Comments Creatinine Lvl (test code = Creatinine 0.71 0.50-1.40 Lvl) [facility]2020-02-07 09:19:00 Test Item Value Reference Range Interpretation Comments Sodium Lvl (test code = Sodium Lvl) 141 135-145 [place] 392080-02-07 09:19:00 Test Item Value Reference Range Interpretation Comments Potassium Lvl (test code = Potassium 4.0 3.5-5.1 Lvl) [place] 392080-02-07 09:19:00 Test Item Value Reference Range Interpretation Comments Chloride Lvl (test code = Chloride Lvl) 108 95-109 [place] 392080-02-07 09:19:00 Test Item Value Reference Range Interpretation Comments CO2 (test code = CO2) 24 24-32 [place] 392080-02-07 09:19:00 Test Item Value Reference Range Interpretation Comments AGAP (test code = AGAP) 13.0 10.0-20.0 [place] 392080-02-07 09:19:00 Test Item Value Reference Range Interpretation Comments Calcium Lvl (test code = Calcium Lvl) 9.1 8.5-10.5 [facility]2020-02-07 09:19:00 Test Item Value Reference Range Interpretation Comments B/C Ratio (test code = B/C Ratio) 28 1 6-25 [facility]2020-02-07 09:19:00 Test Item Value Reference Range Interpretation Comments Total Protein (test code = Total 6.3 6.4-8.4 Protein) [facility]2020-02-07 09:19:00 Test Item Value Reference Range Interpretation Comments Albumin Lvl (test code = Albumin Lvl) 2.9 3.5-5.0 [facility]2020-02-07 09:19:00 Test Item Value Reference Range Interpretation Comments Globulin (test code = Globulin) 3.4 2.7-4.2 [facility]2020-02-07 09:19:00 Test Item Value Reference Range Interpretation Comments A/G Ratio (test code = A/G Ratio) 0.9 1 0.7-1.6 [place] 392080-02-07 09:19:00 Test Item Value Reference Range Interpretation Comments ALT (test code = ALT) 15 See_Comment [Auto mated message] The system which ge nerated this result transmit thelma reference range : <=65. The reference range was not used to interpr et this result as zana l/abnormal. [facility]2020-02-07 09:19:00 Test Item Value Reference Range Interpretation Comments AST (test code = AST) 16 See_Comment [Auto mated message] The system which ge nerated this result transmit thelma reference range : <=37. The reference range was not used to interpr et this result as zana l/abnormal. [facility]2020-02-07 09:19:00 Test Item Value Reference Range Interpretation Comments Alk Phos (test code = Alk Phos) 56 39-136 [facility]2020-02-07 09:19:00 Test Item Value Reference Range Interpretation Comments Bili Total (test code = Bili Total) 0.3 0.2-1.3 [place] 392080-02-07 09:19:00 Test Item Value Reference Range Interpretation Comments eGFR (test code = eGFR) 84 [facility] CenterCntoqabZDTSFIGMQH3334-91-07 09:19:00 Test Item Value Reference Range Interpretation Comments Segs (test code = Segs) 75.0 45.0-75.0 [facility] CenterVxguybeCVSZMUWYZG7288-83-72 09:19:00 Test Item Value Reference Range Interpretation Comments Lymphocytes (test code = Lymphocytes) 14.1 20.0-40.0 [facility] CenterAkvqwgaFJYEPDIOKY6369-16-79 09:19:00 Test Item Value Reference Range Interpretation Comments Monocytes (test code = Monocytes) 8.4 2.0-12.0 [facility] CenterZlszphlMRYEHCASEN2701-82-91 09:19:00 Test Item Value Reference Range Interpretation Comments Eosinophils (test code = 1.9 See_Comment [A utomated message] The Eosinophils) system which ge nerated this result tra nsmitted reference range : <=4.0. The reference r eric was not used to int erpret this result as normal/abnormal . [facility] CenterDxwbvsaQNTLGBRXVV5536-67-21 09:19:00 Test Item Value Reference Range Interpretation Comments Basophils (test code = 0.6 See_Comment [Aut omated message] The Basophils) system which ge nerated this result tra nsmitted reference range : <=1.0. The reference r eric was not used to int erpret this result as normal/abnormal . [facility] CenterWfsjonpGKHROLFGGK5734-94-64 09:19:00 Test Item Value Reference Range Interpretation Comments Neutrophils # (test code = Neutrophils 8.1 1.5-8.1 #) [facility] CenterAabkwwpPKRDNFHWIZ2722-75-14 09:19:00 Test Item Value Reference Range Interpretation Comments Lymphocytes # (test code = Lymphocytes 1.5 1.0-5.5 #) [facility] CenterGwpiiruUHNLUZKBSN0609-36-29 09:19:00 Test Item Value Reference Range Interpretation Comments Monocytes # (test code 0.9 See_Comment [Aut omated message] The = Monocytes #) system which generated this result tra nsmitted reference range : <=0.8. The reference r eric was not used to int erpret this result as normal/abnormal . [facility] CenterAidjrjfRZNKLWXIEC2652-27-59 09:19:00 Test Item Value Reference Range Interpretation Comments Eosinophils # (test code 0.2 See_Comment [A utomated message] The = Eosinophils #) system whic h generated this result tra nsmitted reference range : <=0.5. The reference r eric was not used to int erpret this result as normal/abnormal . [facility] CenterRuzwixyNZRJVZXORJ8169-33-23 09:19:00 Test Item Value Reference Range Interpretation Comments Basophils # (test code 0.1 See_Comment [Aut omated message] The = Basophils #) system which generated this result tra nsmitted reference range : <=0.2. The reference r eric was not used to int erpret this result as normal/abnormal . [facility] CenterQigikdzMDPEIIHYCW1991-53-72 09:19:00 Test Item Value Reference Range Interpretation Comments WBC (test code = WBC) 10.8 3.7-10.4 [facility] CenterGeywffzMUJMSOJIGJ8111-31-97 09:19:00 Test Item Value Reference Range Interpretation Comments RBC (test code = RBC) 3.78 4.20-5.40 [place] [address]-02-07 09:19:00 Test Item Value Reference Range Interpretation Comments Hgb (test code = Hgb) 9.9 12.0-16.0 [facility] CenterPrcmywjOQTTYRMMFO9556-30-63 09:19:00 Test Item Value Reference Range Interpretation Comments Hct (test code = Hct) 30.9 36.0-48.0 [facility] CenterSonxgicAQONZTSQLE0296-49-15 09:19:00 Test Item Value Reference Range Interpretation Comments MCV (test code = MCV) 81.9 80.0-98.0 [place] 865100-02-07 09:19:00 Test Item Value Reference Range Interpretation Comments MCH (test code = MCH) 26.3 pg 27.0-31.0 [place] 865100-02-07 09:19:00 Test Item Value Reference Range Interpretation Comments MCHC (test code = MCHC) 32.1 32.0-36.0 [facility] CenterVyhxtjsHOGCBTJDFY3472-25-47 09:19:00 Test Item Value Reference Range Interpretation Comments RDW (test code = RDW) 15.2 11.5-14.5 [facility] CenterGdavhioLBOJWPSSHS7402-41-52 09:19:00 Test Item Value Reference Range Interpretation Comments Platelet (test code = Platelet) 298 133-450 [facility] CenterDccqtfxIZWSABESFP8553-69-29 09:19:00 Test Item Value Reference Range Interpretation Comments MPV (test code = MPV) 8.2 7.4-10.4 [facility] AND [id number] 08:04:00 Test Item Value Reference Range Interpretation Comments UA Turbidity (test code = Clear (10/21/19 2:04 UA Turbidity) AM) [facility] AND [id number] 08:04:00 Test Item Value Reference Range Interpretation Comments UA Spec Grav (test code = UA Spec 1.033 1 Grav) [facility] AND [id number] 08:04:00 Test Item Value Reference Range Interpretation Comments UA pH (test code = UA pH) 8.0 1 5.0-8.0 [facility] AND [id number] 08:04:00 Test Item Value Reference Range Interpretation Comments UA Protein (test code = UA Negative mg/dL Protein) [facility] AND [id number] 08:04:00 Test Item Value Reference Range Interpretation Comments UA Glucose (test code = UA Negative mg/dL Glucose) [facility] AND [id number] 08:04:00 Test Item Value Reference Range Interpretation Comments UA Ketones (test code = UA Ketones) 20 mg/dL [facility] AND [id number] 08:04:00 Test Item Value Reference Range Interpretation Comments UA Bili (test code = Negative *NA*(10/21/19 UA Bili) 2:04 AM) [facility] AND [id number] 08:04:00 Test Item Value Reference Range Interpretation Comments UA Blood (test code = Negative (10/21/19 2:04 UA Blood) AM) [facility] AND [id number] 08:04:00 Test Item Value Reference Range Interpretation Comments UA Nitrite (test code Negative (10/21/19 2:04 = UA Nitrite) AM) [facility] AND [id number] 08:04:00 Test Item Value Reference Range Interpretation Comments UA Leuk Est (test Negative (10/21/19 2:04 code = UA Leuk Est) AM) [facility] AND [id number] 08:04:00 Test Item Value Reference Range Interpretation Comments UA Sq Epi (test code = UA Sq Epi) Few /LPF [facility] AND [id number] 08:04:00 Test Item Value Reference Range Interpretation Comments UA WBC (test code = 4 See_Comment [Automa thelma message] The UA WBC) system which ge nerated this result transmit thelma reference range : <=5. The reference range was not used to interpr et this result as zana l/abnormal. [facility] [id number] 08:04:00 Test Item Value Reference Range Interpretation Comments UA RBC (test code = 1 See_Comment [Automa thelma message] The UA RBC) system which ge nerated this result transmit thelma reference range : <=2. The reference range was not used to interpr et this result as zana l/abnormal. [facility] [id number] 08:04:00 Test Item Value Reference Range Interpretation Comments UA Bacteria (test code = UA Occasional /HPF Bacteria) [facility] [id number] 08:04:00 Test Item Value Reference Range Interpretation Comments UA Hyal Cast (test 1 See_Comment [Automat ed message] The code = UA Hyal Cast) system which generated this result transmit thelma reference range : <=2. The reference range was not used to interpr et this result as zana l/abnormal. [facility] [id number] 08:04:00 Test Item Value Reference Range Interpretation Comments UA Color (test code = UA Color) YELLOW [facility] [id number] 08:04:00 Test Item Value Reference Range Interpretation Comments UA Urobilinogen (test code = UA <=1.0 mg/dL 0.1-1.0 Urobilinogen) [facility] [id number] 08:04:00 Test Item Value Reference Range Interpretation Comments UA Turbidity (test code = Clear (10/21/19 2:04 UA Turbidity) AM) [facility] [id number] 08:04:00 Test Item Value Reference Range Interpretation Comments UA Spec Grav (test code = UA Spec 1.033 1 Grav) [facility] [id number] 08:04:00 Test Item Value Reference Range Interpretation Comments UA pH (test code = UA pH) 8.0 1 5.0-8.0 [facility] [id number] 08:04:00 Test Item Value Reference Range Interpretation Comments UA Protein (test code = UA Negative mg/dL Protein) [facility] [id number] 08:04:00 Test Item Value Reference Range Interpretation Comments UA Glucose (test code = UA Negative mg/dL Glucose) [facility] [id number] 08:04:00 Test Item Value Reference Range Interpretation Comments UA Ketones (test code = UA Ketones) 20 mg/dL [facility] AND [id number] 08:04:00 Test Item Value Reference Range Interpretation Comments UA Bili (test code = Negative *NA*(10/21/19 UA Bili) 2:04 AM) [facility] AND [id number] 08:04:00 Test Item Value Reference Range Interpretation Comments UA Blood (test code = Negative (10/21/19 2:04 UA Blood) AM) [facility] AND [id number] 08:04:00 Test Item Value Reference Range Interpretation Comments UA Nitrite (test code Negative (10/21/19 2:04 = UA Nitrite) AM) [facility] AND [id number] 08:04:00 Test Item Value Reference Range Interpretation Comments UA Leuk Est (test Negative (10/21/19 2:04 code = UA Leuk Est) AM) [facility] AND [id number] 08:04:00 Test Item Value Reference Range Interpretation Comments UA Sq Epi (test code = UA Sq Epi) Few /LPF [facility] AND [id number] 08:04:00 Test Item Value Reference Range Interpretation Comments UA WBC (test code = 4 See_Comment [Automa thelma message] The UA WBC) system which ge nerated this result transmit thelma reference range : <=5. The reference range was not used to interpr et this result as zana l/abnormal. [facility] AND [id number] 08:04:00 Test Item Value Reference Range Interpretation Comments UA RBC (test code = 1 See_Comment [Automa thelma message] The UA RBC) system which ge nerated this result transmit thelma reference range : <=2. The reference range was not used to interpr et this result as zana l/abnormal. [facility] AND [id number] 08:04:00 Test Item Value Reference Range Interpretation Comments UA Bacteria (test code = UA Occasional /HPF Bacteria) [facility] AND [id number] 08:04:00 Test Item Value Reference Range Interpretation Comments UA Hyal Cast (test 1 See_Comment [Automat ed message] The code = UA Hyal Cast) system which generated this result transmit thelma reference range : <=2. The reference range was not used to interpr et this result as zana l/abnormal. [facility] AND [id number] 08:04:00 Test Item Value Reference Range Interpretation Comments UA Color (test code = UA Color) YELLOW [facility] AND [id number] 08:04:00 Test Item Value Reference Range Interpretation Comments UA Urobilinogen (test code = UA <=1.0 mg/dL 0.1-1.0 Urobilinogen) [facility] [id number] 18:55:00 Test Item Value Reference Range Interpretation Comments Troponin-I (test code no gt See_Comment [Auto mated message] The = Troponin-I) system which g enerated this result transmit thelma reference range : <=0.40. The reference r eric was not used to interpr et this result as zana l/abnormal. [facility] [employer] [id number] 18:55:00 Test Item Value Reference Range Interpretation Comments Glucose Lvl (test code = Glucose Lvl) 113 70-99 [facility] [id number] 18:55:00 Test Item Value Reference Range Interpretation Comments BUN (test code = BUN) 26 7-22 [facility] [id number] 18:55:00 Test Item Value Reference Range Interpretation Comments Creatinine Lvl (test code = Creatinine 0.82 0.50-1.40 Lvl) [facility] [id number] 18:55:00 Test Item Value Reference Range Interpretation Comments Sodium Lvl (test code = Sodium Lvl) 140 135-145 [facility] [employer] [id number] 18:55:00 Test Item Value Reference Range Interpretation Comments Potassium Lvl (test code = Potassium 3.8 3.5-5.1 Lvl) [facility] [id number] 18:55:00 Test Item Value Reference Range Interpretation Comments Chloride Lvl (test code = Chloride Lvl) 104 95-109 [facility] [employer] [id number] 18:55:00 Test Item Value Reference Range Interpretation Comments CO2 (test code = CO2) 30 24-32 [facility] [id number] 18:55:00 Test Item Value Reference Range Interpretation Comments Calcium Lvl (test code = Calcium Lvl) 9.7 8.5-10.5 [place] 392080-02-06 18:55:00 Test Item Value Reference Range Interpretation Comments Total Protein (test code = Total 7.3 6.4-8.4 Protein) [facility]2020-02-06 18:55:00 Test Item Value Reference Range Interpretation Comments Albumin Lvl (test code = Albumin Lvl) 3.4 3.5-5.0 [facility] [id number] 18:55:00 Test Item Value Reference Range Interpretation Comments ALT (test code = ALT) 18 See_Comment [Auto mated message] The system which ge nerated this result transmit thelma reference range : <=65. The reference range was not used to interpr et this result as zana l/abnormal. [facility] [id number] 18:55:00 Test Item Value Reference Range Interpretation Comments AST (test code = AST) 17 See_Comment [Auto mated message] The system which ge nerated this result transmit thelma reference range : <=37. The reference range was not used to interpr et this result as zana l/abnormal. [facility] [id number] 18:55:00 Test Item Value Reference Range Interpretation Comments Alk Phos (test code = Alk Phos) 66 39-136 [facility] [id number] 18:55:00 Test Item Value Reference Range Interpretation Comments Bili Total (test code = Bili Total) 0.4 0.2-1.3 [facility] [id number] 18:55:00 Test Item Value Reference Range Interpretation Comments AGAP (test code = AGAP) 9.8 10.0-20.0 [facility] [id number] 18:55:00 Test Item Value Reference Range Interpretation Comments B/C Ratio (test code = B/C Ratio) 32 1 6-25 [facility] [id number] 18:55:00 Test Item Value Reference Range Interpretation Comments Globulin (test code = Globulin) 3.9 2.7-4.2 [place] [address]-02-06 18:55:00 Test Item Value Reference Range Interpretation Comments A/G Ratio (test code = A/G Ratio) 0.9 1 0.7-1.6 [place] [address]-02-06 18:55:00 Test Item Value Reference Range Interpretation Comments eGFR (test code = eGFR) 71 [place] 392080-02-06 18:55:00 Test Item Value Reference Range Interpretation Comments Lipase Lvl (test code = Lipase Lvl) 271 73-393 [place] [address]-02-06 18:55:00 Test Item Value Reference Range Interpretation Comments Lactic Acid Lvl (test code = Lactic 1.1 0.5-2.2 Acid Lvl) [place] [address]-02-06 18:55:00 Test Item Value Reference Range Interpretation Comments WBC (test code = WBC) 14.3 3.7-10.4 [place] [address]-02-06 18:55:00 Test Item Value Reference Range Interpretation Comments RBC (test code = RBC) 4.34 4.20-5.40 [place] [address]-02-06 18:55:00 Test Item Value Reference Range Interpretation Comments Hgb (test code = Hgb) 11.4 12.0-16.0 [place] [address]-02-06 18:55:00 Test Item Value Reference Range Interpretation Comments Hct (test code = Hct) 35.6 36.0-48.0 [place] [address]-02-06 18:55:00 Test Item Value Reference Range Interpretation Comments MCV (test code = MCV) 82.1 80.0-98.0 [place] [address]-02-06 18:55:00 Test Item Value Reference Range Interpretation Comments MCH (test code = MCH) 26.4 pg 27.0-31.0 [place] [address]-02-06 18:55:00 Test Item Value Reference Range Interpretation Comments MCHC (test code = MCHC) 32.1 32.0-36.0 [place] [address]-02-06 18:55:00 Test Item Value Reference Range Interpretation Comments RDW (test code = RDW) 15.2 11.5-14.5 [place] [address]-02-06 18:55:00 Test Item Value Reference Range Interpretation Comments Platelet (test code = Platelet) 349 133-450 [place] [address]-02-06 18:55:00 Test Item Value Reference Range Interpretation Comments MPV (test code = MPV) 8.1 7.4-10.4 [place] [address]-02-06 18:55:00 Test Item Value Reference Range Interpretation Comments PT (test code = PT) 14.0 s 12.0-14.7 [place] [address]-02-06 18:55:00 Test Item Value Reference Range Interpretation Comments INR (test code = INR) 1.08 1 0.85-1.17 [place] [address]-02-06 18:55:00 Test Item Value Reference Range Interpretation Comments Segs (test code = Segs) 85.8 45.0-75.0 [place] [address]-02-06 18:55:00 Test Item Value Reference Range Interpretation Comments Lymphocytes (test code = Lymphocytes) 7.6 20.0-40.0 [place] [address]-02-06 18:55:00 Test Item Value Reference Range Interpretation Comments Monocytes (test code = Monocytes) 5.9 2.0-12.0 [place] [address]-02-06 18:55:00 Test Item Value Reference Range Interpretation Comments Eosinophils (test code = 0.4 See_Comment [A utomated message] The Eosinophils) system which ge nerated this result tra nsmitted reference range : <=4.0. The reference r eric was not used to int erpret this result as normal/abnormal . [place] [address]-02-06 18:55:00 Test Item Value Reference Range Interpretation Comments Basophils (test code = 0.3 See_Comment [Aut omated message] The Basophils) system which ge nerated this result tra nsmitted reference range : <=1.0. The reference r eric was not used to int erpret this result as normal/abnormal . [place] 865100-02-06 18:55:00 Test Item Value Reference Range Interpretation Comments Neutrophils # (test code = Neutrophils 12.3 1.5-8.1 #) [place] [address]-02-06 18:55:00 Test Item Value Reference Range Interpretation Comments Lymphocytes # (test code = Lymphocytes 1.1 1.0-5.5 #) [facility] [id number] 18:55:00 Test Item Value Reference Range Interpretation Comments Monocytes # (test code 0.8 See_Comment [Aut omated message] The = Monocytes #) system which generated this result tra nsmitted reference range : <=0.8. The reference r eric was not used to int erpret this result as normal/abnormal . [id number] 18:55:00 Test Item Value Reference Range Interpretation Comments Eosinophils # (test code 0.1 See_Comment [A utomated message] The = Eosinophils #) system whic h generated this result tra nsmitted reference range : <=0.5. The reference r eric was not used to int erpret this result as normal/abnormal . [facility] [id number] 18:55:00 Test Item Value Reference Range Interpretation Comments Troponin-I (test code no gt See_Comment [Auto mated message] The = Troponin-I) system which g enerated this result transmit thelma reference range : <=0.40. The reference r eric was not used to interpr et this result as zana l/abnormal. [facility] [employer] [id number] 18:55:00 Test Item Value Reference Range Interpretation Comments Glucose Lvl (test code = Glucose Lvl) 113 70-99 [facility] [id number] 18:55:00 Test Item Value Reference Range Interpretation Comments BUN (test code = BUN) 26 7-22 [facility] [id number] 18:55:00 Test Item Value Reference Range Interpretation Comments Creatinine Lvl (test code = Creatinine 0.82 0.50-1.40 Lvl) [facility] [employer] [id number] 18:55:00 Test Item Value Reference Range Interpretation Comments Sodium Lvl (test code = Sodium Lvl) 140 135-145 [facility] [id number] 18:55:00 Test Item Value Reference Range Interpretation Comments Potassium Lvl (test code = Potassium 3.8 3.5-5.1 Lvl) [facility] [employer] [id number] 18:55:00 Test Item Value Reference Range Interpretation Comments Chloride Lvl (test code = Chloride Lvl) 104 95-109 [facility] [employer] [id number] 18:55:00 Test Item Value Reference Range Interpretation Comments CO2 (test code = CO2) 30 24-32 [facility] [id number] 18:55:00 Test Item Value Reference Range Interpretation Comments Calcium Lvl (test code = Calcium Lvl) 9.7 8.5-10.5 [facility] [id number] 18:55:00 Test Item Value Reference Range Interpretation Comments Total Protein (test code = Total 7.3 6.4-8.4 Protein) [facility] [id number] 18:55:00 Test Item Value Reference Range Interpretation Comments Albumin Lvl (test code = Albumin Lvl) 3.4 3.5-5.0 [facility] [id number] 18:55:00 Test Item Value Reference Range Interpretation Comments ALT (test code = ALT) 18 See_Comment [Auto mated message] The system which ge nerated this result transmit thelma reference range : <=65. The reference range was not used to interpr et this result as zana l/abnormal. [facility] [employer] [id number] 18:55:00 Test Item Value Reference Range Interpretation Comments AST (test code = AST) 17 See_Comment [Auto mated message] The system which ge nerated this result transmit thelma reference range : <=37. The reference range was not used to interpr et this result as zana l/abnormal. [facility] [employer] [id number] 18:55:00 Test Item Value Reference Range Interpretation Comments Alk Phos (test code = Alk Phos) 66 39-136 [facility] [employer] [id number] 18:55:00 Test Item Value Reference Range Interpretation Comments Bili Total (test code = Bili Total) 0.4 0.2-1.3 [facility] [id number] 18:55:00 Test Item Value Reference Range Interpretation Comments AGAP (test code = AGAP) 9.8 10.0-20.0 [facility] [id number] 18:55:00 Test Item Value Reference Range Interpretation Comments B/C Ratio (test code = B/C Ratio) 32 1 6-25 [facility] [employer] [id number] 18:55:00 Test Item Value Reference Range Interpretation Comments Globulin (test code = Globulin) 3.9 2.7-4.2 [place] [address]-02-06 18:55:00 Test Item Value Reference Range Interpretation Comments A/G Ratio (test code = A/G Ratio) 0.9 1 0.7-1.6 [place] [address]-02-06 18:55:00 Test Item Value Reference Range Interpretation Comments eGFR (test code = eGFR) 71 [place] [address]-02-06 18:55:00 Test Item Value Reference Range Interpretation Comments Lipase Lvl (test code = Lipase Lvl) 271 73-393 [place] 392080-02-06 18:55:00 Test Item Value Reference Range Interpretation Comments Lactic Acid Lvl (test code = Lactic 1.1 0.5-2.2 Acid Lvl) [place] [address]-02-06 18:55:00 Test Item Value Reference Range Interpretation Comments WBC (test code = WBC) 14.3 3.7-10.4 [place] [address]-02-06 18:55:00 Test Item Value Reference Range Interpretation Comments RBC (test code = RBC) 4.34 4.20-5.40 [place] [address]-02-06 18:55:00 Test Item Value Reference Range Interpretation Comments Hgb (test code = Hgb) 11.4 12.0-16.0 [place] [address]-02-06 18:55:00 Test Item Value Reference Range Interpretation Comments Hct (test code = Hct) 35.6 36.0-48.0 [place] [address]-02-06 18:55:00 Test Item Value Reference Range Interpretation Comments MCV (test code = MCV) 82.1 80.0-98.0 [place] [address]-02-06 18:55:00 Test Item Value Reference Range Interpretation Comments MCH (test code = MCH) 26.4 pg 27.0-31.0 [place] [address]-02-06 18:55:00 Test Item Value Reference Range Interpretation Comments MCHC (test code = MCHC) 32.1 32.0-36.0 [place] [address]-02-06 18:55:00 Test Item Value Reference Range Interpretation Comments RDW (test code = RDW) 15.2 11.5-14.5 [id number] 18:55:00 Test Item Value Reference Range Interpretation Comments Platelet (test code = Platelet) 349 133-450 [facility] C[id number] 18:55:00 Test Item Value Reference Range Interpretation Comments MPV (test code = MPV) 8.1 7.4-10.4 [place] 865100-02-06 18:55:00 Test Item Value Reference Range Interpretation Comments PT (test code = PT) 14.0 s 12.0-14.7 [place] 865100-02-06 18:55:00 Test Item Value Reference Range Interpretation Comments INR (test code = INR) 1.08 1 0.85-1.17 [place] 865100-02-06 18:55:00 Test Item Value Reference Range Interpretation Comments Segs (test code = Segs) 85.8 45.0-75.0 [place] 865100-02-06 18:55:00 Test Item Value Reference Range Interpretation Comments Lymphocytes (test code = Lymphocytes) 7.6 20.0-40.0 [place] [address]-02-06 18:55:00 Test Item Value Reference Range Interpretation Comments Monocytes (test code = Monocytes) 5.9 2.0-12.0 [facility] [id number] 18:55:00 Test Item Value Reference Range Interpretation Comments Eosinophils (test code = 0.4 See_Comment [A utomated message] The Eosinophils) system which ge nerated this result tra nsmitted reference range : <=4.0. The reference r eric was not used to int erpret this result as normal/abnormal . [facility] [id number] 18:55:00 Test Item Value Reference Range Interpretation Comments Basophils (test code = 0.3 See_Comment [Aut omated message] The Basophils) system which ge nerated this result tra nsmitted reference range : <=1.0. The reference r eric was not used to int erpret this result as normal/abnormal . [place] 865100-02-06 18:55:00 Test Item Value Reference Range Interpretation Comments Neutrophils # (test code = Neutrophils 12.3 1.5-8.1 #) [place] 865100-02-06 18:55:00 Test Item Value Reference Range Interpretation Comments Lymphocytes # (test code = Lymphocytes 1.1 1.0-5.5 #) [place] 865100-02-06 18:55:00 Test Item Value Reference Range Interpretation Comments Monocytes # (test code 0.8 See_Comment [Aut omated message] The = Monocytes #) system which generated this result tra nsmitted reference range : <=0.8. The reference r eric was not used to int erpret this result as normal/abnormal . [place] [address]-02-06 18:55:00 Test Item Value Reference Range Interpretation Comments Eosinophils # (test code 0.1 See_Comment [A utomated message] The = Eosinophils #) system whic h generated this result tra nsmitted reference range : <=0.5. The reference r eric was not used to int erpret this result as normal/abnormal . [place] 392080-01-22 11:45:00 Test Item Value Reference Range Interpretation Comments Glucose Lvl (test code = Glucose Lvl) 111 70-99 [place] 392080-01-22 11:45:00 Test Item Value Reference Range Interpretation Comments BUN (test code = BUN) 15 7-22 [place] 392080-01-22 11:45:00 Test Item Value Reference Range Interpretation Comments Creatinine Lvl (test code = Creatinine 0.72 0.50-1.40 Lvl) [facility]2020-01-22 11:45:00 Test Item Value Reference Range Interpretation Comments Sodium Lvl (test code = Sodium Lvl) 141 135-145 [place] 392080-01-22 11:45:00 Test Item Value Reference Range Interpretation Comments Potassium Lvl (test code = Potassium 3.4 3.5-5.1 Lvl) [place] 392080-01-22 11:45:00 Test Item Value Reference Range Interpretation Comments Chloride Lvl (test code = Chloride Lvl) 109 95-109 [place] 392080-01-22 11:45:00 Test Item Value Reference Range Interpretation Comments CO2 (test code = CO2) 26 24-32 [place] 392080-01-22 11:45:00 Test Item Value Reference Range Interpretation Comments AGAP (test code = AGAP) 9.4 10.0-20.0 [facility] [id number] 11:45:00 Test Item Value Reference Range Interpretation Comments Calcium Lvl (test code = Calcium Lvl) 8.4 8.5-10.5 [facility] [id number] 11:45:00 Test Item Value Reference Range Interpretation Comments eGFR (test code = eGFR) 84 [facility] C[id number] 11:45:00 Test Item Value Reference Range Interpretation Comments WBC (test code = WBC) 8.8 3.7-10.4 [facility] C[id number] 11:45:00 Test Item Value Reference Range Interpretation Comments RBC (test code = RBC) 3.92 4.20-5.40 [facility] CenterXimkuroONDYDBSBUJ5066-57-29 11:45:00 Test Item Value Reference Range Interpretation Comments Hgb (test code = Hgb) 10.3 12.0-16.0 [facility] CenterAxgczreJRMFYPLWXO7112-97-73 11:45:00 Test Item Value Reference Range Interpretation Comments Hct (test code = Hct) 31.8 36.0-48.0 [facility] CenterZnuhhfmORLCTYTFZQ0377-22-07 11:45:00 Test Item Value Reference Range Interpretation Comments MCV (test code = MCV) 81.3 80.0-98.0 [facility] C[id number] 11:45:00 Test Item Value Reference Range Interpretation Comments MCH (test code = MCH) 26.3 pg 27.0-31.0 [facility] C[id number] 11:45:00 Test Item Value Reference Range Interpretation Comments MCHC (test code = MCHC) 32.3 32.0-36.0 [facility] CenterVpzypgaGYWHNUVLWW8938-98-20 11:45:00 Test Item Value Reference Range Interpretation Comments RDW (test code = RDW) 14.2 11.5-14.5 [facility] CenterMsnqliyNEIFUOAQYY0903-54-13 11:45:00 Test Item Value Reference Range Interpretation Comments Platelet (test code = Platelet) 272 133-450 [facility] CenterUulnmohJWRMSBPCEH3665-44-03 11:45:00 Test Item Value Reference Range Interpretation Comments MPV (test code = MPV) 8.1 7.4-10.4 [place] [address]-01-22 11:45:00 Test Item Value Reference Range Interpretation Comments Segs (test code = Segs) 67.0 45.0-75.0 [place] 865100-01-22 11:45:00 Test Item Value Reference Range Interpretation Comments Lymphocytes (test code = Lymphocytes) 21.6 20.0-40.0 [place] 865100-01-22 11:45:00 Test Item Value Reference Range Interpretation Comments Monocytes (test code = Monocytes) 8.2 2.0-12.0 [place] 865100-01-22 11:45:00 Test Item Value Reference Range Interpretation Comments Eosinophils (test code = 2.5 See_Comment [A utomated message] The Eosinophils) system which ge nerated this result tra nsmitted reference range : <=4.0. The reference r eric was not used to int erpret this result as normal/abnormal . [place] 865100-01-22 11:45:00 Test Item Value Reference Range Interpretation Comments Basophils (test code = 0.7 See_Comment [Aut omated message] The Basophils) system which ge nerated this result tra nsmitted reference range : <=1.0. The reference r eric was not used to int erpret this result as normal/abnormal . [place] 865100-01-22 11:45:00 Test Item Value Reference Range Interpretation Comments Neutrophils # (test code = Neutrophils 5.9 1.5-8.1 #) [place] 865100-01-22 11:45:00 Test Item Value Reference Range Interpretation Comments Lymphocytes # (test code = Lymphocytes 1.9 1.0-5.5 #) [place] 865100-01-22 11:45:00 Test Item Value Reference Range Interpretation Comments Monocytes # (test code 0.7 See_Comment [Aut omated message] The = Monocytes #) system which generated this result tra nsmitted reference range : <=0.8. The reference r eric was not used to int erpret this result as normal/abnormal . [place] 865100-01-22 11:45:00 Test Item Value Reference Range Interpretation Comments Eosinophils # (test code 0.2 See_Comment [A utomated message] The = Eosinophils #) system whic h generated this result tra nsmitted reference range : <=0.5. The reference r eric was not used to int erpret this result as normal/abnormal . [facility] CenterYorozwsWLYYLVZUJN9533-17-27 11:45:00 Test Item Value Reference Range Interpretation Comments Basophils # (test code 0.1 See_Comment [Aut omated message] The = Basophils #) system which generated this result tra nsmitted reference range : <=0.2. The reference r eric was not used to int erpret this result as normal/abnormal . [facility]2020-01-22 11:45:00 Test Item Value Reference Range Interpretation Comments Glucose Lvl (test code = Glucose Lvl) 111 70-99 [place] 392080-01-22 11:45:00 Test Item Value Reference Range Interpretation Comments BUN (test code = BUN) 15 7-22 [place] 392080-01-22 11:45:00 Test Item Value Reference Range Interpretation Comments Creatinine Lvl (test code = Creatinine 0.72 0.50-1.40 Lvl) [facility]2020-01-22 11:45:00 Test Item Value Reference Range Interpretation Comments Sodium Lvl (test code = Sodium Lvl) 141 135-145 [place] 392080-01-22 11:45:00 Test Item Value Reference Range Interpretation Comments Potassium Lvl (test code = Potassium 3.4 3.5-5.1 Lvl) [place] 392080-01-22 11:45:00 Test Item Value Reference Range Interpretation Comments Chloride Lvl (test code = Chloride Lvl) 109 95-109 [place] 392080-01-22 11:45:00 Test Item Value Reference Range Interpretation Comments CO2 (test code = CO2) 26 24-32 [place] 392080-01-22 11:45:00 Test Item Value Reference Range Interpretation Comments AGAP (test code = AGAP) 9.4 10.0-20.0 [place] 392080-01-22 11:45:00 Test Item Value Reference Range Interpretation Comments Calcium Lvl (test code = Calcium Lvl) 8.4 8.5-10.5 [place] 392080-01-22 11:45:00 Test Item Value Reference Range Interpretation Comments eGFR (test code = eGFR) 84 [facility] CenterKvxybwsSJCJJHMEPF1660-22-17 11:45:00 Test Item Value Reference Range Interpretation Comments WBC (test code = WBC) 8.8 3.7-10.4 [facility] CenterUxkxqwkYZFPUMPVWK6684-79-05 11:45:00 Test Item Value Reference Range Interpretation Comments RBC (test code = RBC) 3.92 4.20-5.40 [place] 865100-01-22 11:45:00 Test Item Value Reference Range Interpretation Comments Hgb (test code = Hgb) 10.3 12.0-16.0 [place] [address]-01-22 11:45:00 Test Item Value Reference Range Interpretation Comments Hct (test code = Hct) 31.8 36.0-48.0 [place] 865100-01-22 11:45:00 Test Item Value Reference Range Interpretation Comments MCV (test code = MCV) 81.3 80.0-98.0 [place] 865100-01-22 11:45:00 Test Item Value Reference Range Interpretation Comments MCH (test code = MCH) 26.3 pg 27.0-31.0 [facility] CenterKqqtfqaIFZZELVEYJ0112-25-61 11:45:00 Test Item Value Reference Range Interpretation Comments MCHC (test code = MCHC) 32.3 32.0-36.0 [facility] CenterDvrganfYBHMRDTNVX9909-97-16 11:45:00 Test Item Value Reference Range Interpretation Comments RDW (test code = RDW) 14.2 11.5-14.5 [facility] CenterDrhrgpzVIAYRVAAFY2734-26-28 11:45:00 Test Item Value Reference Range Interpretation Comments Platelet (test code = Platelet) 272 133-450 [facility] CenterPjbxssjPUESFCHQRQ0908-42-98 11:45:00 Test Item Value Reference Range Interpretation Comments MPV (test code = MPV) 8.1 7.4-10.4 [place] 865100-01-22 11:45:00 Test Item Value Reference Range Interpretation Comments Segs (test code = Segs) 67.0 45.0-75.0 [place] 865100-01-22 11:45:00 Test Item Value Reference Range Interpretation Comments Lymphocytes (test code = Lymphocytes) 21.6 20.0-40.0 [place] 865100-01-22 11:45:00 Test Item Value Reference Range Interpretation Comments Monocytes (test code = Monocytes) 8.2 2.0-12.0 [place] 865100-01-22 11:45:00 Test Item Value Reference Range Interpretation Comments Eosinophils (test code = 2.5 See_Comment [A utomated message] The Eosinophils) system which ge nerated this result tra nsmitted reference range : <=4.0. The reference r eric was not used to int erpret this result as normal/abnormal . [place] 865100-01-22 11:45:00 Test Item Value Reference Range Interpretation Comments Basophils (test code = 0.7 See_Comment [Aut omated message] The Basophils) system which ge nerated this result tra nsmitted reference range : <=1.0. The reference r eric was not used to int erpret this result as normal/abnormal . [place] 865100-01-22 11:45:00 Test Item Value Reference Range Interpretation Comments Neutrophils # (test code = Neutrophils 5.9 1.5-8.1 #) [place] 865100-01-22 11:45:00 Test Item Value Reference Range Interpretation Comments Lymphocytes # (test code = Lymphocytes 1.9 1.0-5.5 #) [place] 865100-01-22 11:45:00 Test Item Value Reference Range Interpretation Comments Monocytes # (test code 0.7 See_Comment [Aut omated message] The = Monocytes #) system which generated this result tra nsmitted reference range : <=0.8. The reference r eric was not used to int erpret this result as normal/abnormal . [place] 865100-01-22 11:45:00 Test Item Value Reference Range Interpretation Comments Eosinophils # (test code 0.2 See_Comment [A utomated message] The = Eosinophils #) system whic h generated this result tra nsmitted reference range : <=0.5. The reference r eric was not used to int erpret this result as normal/abnormal . [place] 865100-01-22 11:45:00 Test Item Value Reference Range Interpretation Comments Basophils # (test code 0.1 See_Comment [Aut omated message] The = Basophils #) system which generated this result tra nsmitted reference range : <=0.2. The reference r eric was not used to int erpret this result as normal/abnormal . [facility]2020-01-21 11:50:00 Test Item Value Reference Range Interpretation Comments Glucose Lvl (test code = Glucose Lvl) 62 70-99 [place] 392080-01-21 11:50:00 Test Item Value Reference Range Interpretation Comments BUN (test code = BUN) 31 7-22 [place] 392080-01-21 11:50:00 Test Item Value Reference Range Interpretation Comments Creatinine Lvl (test code = Creatinine 0.80 0.50-1.40 Lvl) [place] 392080-01-21 11:50:00 Test Item Value Reference Range Interpretation Comments Sodium Lvl (test code = Sodium Lvl) 140 135-145 [place] 392080-01-21 11:50:00 Test Item Value Reference Range Interpretation Comments Potassium Lvl (test code = Potassium 3.8 3.5-5.1 Lvl) [place] 392080-01-21 11:50:00 Test Item Value Reference Range Interpretation Comments Chloride Lvl (test code = Chloride Lvl) 108 95-109 [place] 392080-01-21 11:50:00 Test Item Value Reference Range Interpretation Comments CO2 (test code = CO2) 27 24-32 [facility]2020-01-21 11:50:00 Test Item Value Reference Range Interpretation Comments Calcium Lvl (test code = Calcium Lvl) 8.7 8.5-10.5 [place] 392080-01-21 11:50:00 Test Item Value Reference Range Interpretation Comments AGAP (test code = AGAP) 8.8 10.0-20.0 [place] 392080-01-21 11:50:00 Test Item Value Reference Range Interpretation Comments eGFR (test code = eGFR) 73 [facility]IVZAZSFFY[facility]90[facility] 11:50:00 Test Item Value Reference Range Interpretation Comments Segs (test code = Segs) 81.6 45.0-75.0 [place] 865100-01-21 11:50:00 Test Item Value Reference Range Interpretation Comments Lymphocytes (test code = Lymphocytes) 11.9 20.0-40.0 [place] 865100-01-21 11:50:00 Test Item Value Reference Range Interpretation Comments Monocytes (test code = Monocytes) 5.5 2.0-12.0 [place] [address]-01-21 11:50:00 Test Item Value Reference Range Interpretation Comments Eosinophils (test code = 0.5 See_Comment [A utomated message] The Eosinophils) system which ge nerated this result tra nsmitted reference range : <=4.0. The reference r eric was not used to int erpret this result as normal/abnormal . [place] 865100-01-21 11:50:00 Test Item Value Reference Range Interpretation Comments Basophils (test code = 0.5 See_Comment [Aut omated message] The Basophils) system which ge nerated this result tra nsmitted reference range : <=1.0. The reference r eric was not used to int erpret this result as normal/abnormal . [place] 865100-01-21 11:50:00 Test Item Value Reference Range Interpretation Comments Neutrophils # (test code = Neutrophils 12.8 1.5-8.1 #) [place] 865100-01-21 11:50:00 Test Item Value Reference Range Interpretation Comments Lymphocytes # (test code = Lymphocytes 1.9 1.0-5.5 #) [place] 865100-01-21 11:50:00 Test Item Value Reference Range Interpretation Comments Monocytes # (test code 0.9 See_Comment [Aut omated message] The = Monocytes #) system which generated this result tra nsmitted reference range : <=0.8. The reference r eric was not used to int erpret this result as normal/abnormal . [place] [address]-01-21 11:50:00 Test Item Value Reference Range Interpretation Comments Eosinophils # (test code 0.1 See_Comment [A utomated message] The = Eosinophils #) system whic h generated this result tra nsmitted reference range : <=0.5. The reference r eric was not used to int erpret this result as normal/abnormal . [place] 865100-01-21 11:50:00 Test Item Value Reference Range Interpretation Comments Basophils # (test code 0.1 See_Comment [Aut omated message] The = Basophils #) system which generated this result tra nsmitted reference range : <=0.2. The reference r eric was not used to int erpret this result as normal/abnormal . [place] 865100-01-21 11:50:00 Test Item Value Reference Range Interpretation Comments WBC (test code = WBC) 15.7 3.7-10.4 [place] 865100-01-21 11:50:00 Test Item Value Reference Range Interpretation Comments RBC (test code = RBC) 3.95 4.20-5.40 [place] 865100-01-21 11:50:00 Test Item Value Reference Range Interpretation Comments Hgb (test code = Hgb) 10.2 12.0-16.0 [place] 865100-01-21 11:50:00 Test Item Value Reference Range Interpretation Comments Hct (test code = Hct) 32.3 36.0-48.0 [place] 865100-01-21 11:50:00 Test Item Value Reference Range Interpretation Comments MCV (test code = MCV) 81.9 80.0-98.0 [place] 865100-01-21 11:50:00 Test Item Value Reference Range Interpretation Comments MCH (test code = MCH) 25.9 pg 27.0-31.0 [place] 865100-01-21 11:50:00 Test Item Value Reference Range Interpretation Comments MCHC (test code = MCHC) 31.6 32.0-36.0 [place] 865100-01-21 11:50:00 Test Item Value Reference Range Interpretation Comments RDW (test code = RDW) 14.9 11.5-14.5 [place] 865100-01-21 11:50:00 Test Item Value Reference Range Interpretation Comments Platelet (test code = Platelet) 339 133-450 [place] 865100-01-21 11:50:00 Test Item Value Reference Range Interpretation Comments MPV (test code = MPV) 8.3 7.4-10.4 [facility]2020-01-21 11:50:00 Test Item Value Reference Range Interpretation Comments Glucose Lvl (test code = Glucose Lvl) 62 70-99 [facility]2020-01-21 11:50:00 Test Item Value Reference Range Interpretation Comments BUN (test code = BUN) 31 7-22 [place] 392080-01-21 11:50:00 Test Item Value Reference Range Interpretation Comments Creatinine Lvl (test code = Creatinine 0.80 0.50-1.40 Lvl) [place] 392080-01-21 11:50:00 Test Item Value Reference Range Interpretation Comments Sodium Lvl (test code = Sodium Lvl) 140 135-145 [place] 392080-01-21 11:50:00 Test Item Value Reference Range Interpretation Comments Potassium Lvl (test code = Potassium 3.8 3.5-5.1 Lvl) [place] 392080-01-21 11:50:00 Test Item Value Reference Range Interpretation Comments Chloride Lvl (test code = Chloride Lvl) 108 95-109 [place] 392080-01-21 11:50:00 Test Item Value Reference Range Interpretation Comments CO2 (test code = CO2) 27 24-32 [place] 392080-01-21 11:50:00 Test Item Value Reference Range Interpretation Comments Calcium Lvl (test code = Calcium Lvl) 8.7 8.5-10.5 [place] 392080-01-21 11:50:00 Test Item Value Reference Range Interpretation Comments AGAP (test code = AGAP) 8.8 10.0-20.0 [place] 392080-01-21 11:50:00 Test Item Value Reference Range Interpretation Comments eGFR (test code = eGFR) 73 [place] 865100-01-21 11:50:00 Test Item Value Reference Range Interpretation Comments Segs (test code = Segs) 81.6 45.0-75.0 [place] 865100-01-21 11:50:00 Test Item Value Reference Range Interpretation Comments Lymphocytes (test code = Lymphocytes) 11.9 20.0-40.0 [place] [address]-01-21 11:50:00 Test Item Value Reference Range Interpretation Comments Monocytes (test code = Monocytes) 5.5 2.0-12.0 [place] [address]-01-21 11:50:00 Test Item Value Reference Range Interpretation Comments Eosinophils (test code = 0.5 See_Comment [A utomated message] The Eosinophils) system which ge nerated this result tra nsmitted reference range : <=4.0. The reference r eric was not used to int erpret this result as normal/abnormal . [facility] CenterOggcjjxBHBBCIAFKL3376-65-56 11:50:00 Test Item Value Reference Range Interpretation Comments Basophils (test code = 0.5 See_Comment [Aut omated message] The Basophils) system which ge nerated this result tra nsmitted reference range : <=1.0. The reference r eric was not used to int erpret this result as normal/abnormal . [facility] CenterImqgbdrJVCPEJQJEF7522-92-22 11:50:00 Test Item Value Reference Range Interpretation Comments Neutrophils # (test code = Neutrophils 12.8 1.5-8.1 #) [facility] CenterGfebdymSQGEFXZXSG6523-21-97 11:50:00 Test Item Value Reference Range Interpretation Comments Lymphocytes # (test code = Lymphocytes 1.9 1.0-5.5 #) [facility] CenterMslrsmyJBWIUZRWOC3494-68-60 11:50:00 Test Item Value Reference Range Interpretation Comments Monocytes # (test code 0.9 See_Comment [Aut omated message] The = Monocytes #) system which generated this result tra nsmitted reference range : <=0.8. The reference r eric was not used to int erpret this result as normal/abnormal . [facility] CenterCjbqeckQBCYWMNEDH8864-22-61 11:50:00 Test Item Value Reference Range Interpretation Comments Eosinophils # (test code 0.1 See_Comment [A utomated message] The = Eosinophils #) system whic h generated this result tra nsmitted reference range : <=0.5. The reference r eric was not used to int erpret this result as normal/abnormal . [facility] CenterNvdiiuaSYABNMDOWH0465-63-76 11:50:00 Test Item Value Reference Range Interpretation Comments Basophils # (test code 0.1 See_Comment [Aut omated message] The = Basophils #) system which generated this result tra nsmitted reference range : <=0.2. The reference r eric was not used to int erpret this result as normal/abnormal . [facility] CenterKkluthiQFEJIPFKTQ7671-38-29 11:50:00 Test Item Value Reference Range Interpretation Comments WBC (test code = WBC) 15.7 3.7-10.4 [facility] CenterUfdogsgXWJRCCOUOJ3418-55-59 11:50:00 Test Item Value Reference Range Interpretation Comments RBC (test code = RBC) 3.95 4.20-5.40 [facility] CenterYqhdpafZRWYAYFBUU2127-05-71 11:50:00 Test Item Value Reference Range Interpretation Comments Hgb (test code = Hgb) 10.2 12.0-16.0 [facility] CenterOesjycmKMQLGWVHKY3234-33-02 11:50:00 Test Item Value Reference Range Interpretation Comments Hct (test code = Hct) 32.3 36.0-48.0 [facility] CenterNkiiqqqKIFRKTESGA8973-63-33 11:50:00 Test Item Value Reference Range Interpretation Comments MCV (test code = MCV) 81.9 80.0-98.0 [facility]Bgn[facility]hybNUFLWBZTHO2365-35-29 11:50:00 Test Item Value Reference Range Interpretation Comments MCH (test code = MCH) 25.9 pg 27.0-31.0 [facility] CenterTpfaczsCKUHVIXHUF2462-06-01 11:50:00 Test Item Value Reference Range Interpretation Comments MCHC (test code = MCHC) 31.6 32.0-36.0 [facility] CenterFxjiyfhWNUWRCOASM8576-66-90 11:50:00 Test Item Value Reference Range Interpretation Comments RDW (test code = RDW) 14.9 11.5-14.5 [facility] CenterJgnojeuFARXAGLWLG3773-41-13 11:50:00 Test Item Value Reference Range Interpretation Comments Platelet (test code = Platelet) 339 133-450 [facility] CenterPumozbrPVXSGRCJME0851-58-31 11:50:00 Test Item Value Reference Range Interpretation Comments MPV (test code = MPV) 8.3 7.4-10.4 [facility] CenterApps [facility]sKING[facility] [id number] 21:57:00 Test Item Value Reference Range Interpretation Comments Total CK (test code = Total CK) 81 12-191 [facility] [id number] 21:57:00 Test Item Value Reference Range Interpretation Comments Troponin-I (test code no gt See_Comment [Auto mated message] The = Troponin-I) system which g enerated this result transmit thelma reference range : <=0.40. The reference r eric was not used to interpr et this result as zana l/abnormal. [facility] [id number] 21:57:00 Test Item Value Reference Range Interpretation Comments Glucose Lvl (test code = Glucose Lvl) 85 70-99 [facility] [id number] 21:57:00 Test Item Value Reference Range Interpretation Comments BUN (test code = BUN) 38 7-22 [place] 392080-01-20 21:57:00 Test Item Value Reference Range Interpretation Comments Creatinine Lvl (test code = Creatinine 1.00 0.50-1.40 Lvl) [place] 392080-01-20 21:57:00 Test Item Value Reference Range Interpretation Comments Sodium Lvl (test code = Sodium Lvl) 138 135-145 [place] 392080-01-20 21:57:00 Test Item Value Reference Range Interpretation Comments Potassium Lvl (test code = Potassium 5.3 3.5-5.1 Lvl) [place] 392080-01-20 21:57:00 Test Item Value Reference Range Interpretation Comments Chloride Lvl (test code = Chloride Lvl) 108 95-109 [place] 392080-01-20 21:57:00 Test Item Value Reference Range Interpretation Comments CO2 (test code = CO2) 24 24-32 [place] 392080-01-20 21:57:00 Test Item Value Reference Range Interpretation Comments Calcium Lvl (test code = Calcium Lvl) 8.5 8.5-10.5 [place] 392080-01-20 21:57:00 Test Item Value Reference Range Interpretation Comments Total Protein (test code = Total 6.1 6.4-8.4 Protein) [place] 392080-01-20 21:57:00 Test Item Value Reference Range Interpretation Comments Albumin Lvl (test code = Albumin Lvl) 2.6 3.5-5.0 [place] 392080-01-20 21:57:00 Test Item Value Reference Range Interpretation Comments ALT (test code = ALT) 12 See_Comment [Auto mated message] The system which ge nerated this result transmit thelma reference range : <=65. The reference range was not used to interpr et this result as zana l/abnormal. [place] 392080-01-20 21:57:00 Test Item Value Reference Range Interpretation Comments AST (test code = AST) 19 See_Comment [Auto mated message] The system which ge nerated this result transmit thelma reference range : <=37. The reference range was not used to interpr et this result as zana l/abnormal. [facility] CenterCHEM [id number] 21:57:00 Test Item Value Reference Range Interpretation Comments Alk Phos (test code = Alk Phos) 52 39-136 [facility] [employer] [id number] 21:57:00 Test Item Value Reference Range Interpretation Comments Bili Total (test code = Bili Total) 0.3 0.2-1.3 [facility] [employer] [id number] 21:57:00 Test Item Value Reference Range Interpretation Comments AGAP (test code = AGAP) 11.3 10.0-20.0 [facility] [employer] [id number] 21:57:00 Test Item Value Reference Range Interpretation Comments B/C Ratio (test code = B/C Ratio) 38 1 6-25 [facility] [employer] [id number] 21:57:00 Test Item Value Reference Range Interpretation Comments Globulin (test code = Globulin) 3.5 2.7-4.2 [facility] [employer] [id number] 21:57:00 Test Item Value Reference Range Interpretation Comments A/G Ratio (test code = A/G Ratio) 0.7 1 0.7-1.6 [facility] [employer] [id number] 21:57:00 Test Item Value Reference Range Interpretation Comments eGFR (test code = eGFR) 56 [facility] LinksyCARhurleypalmerflattAC [id number] 21:57:00 Test Item Value Reference Range Interpretation Comments Total CK (test code = Total CK) 81 12-191 [facility] [employer] [id number] 21:57:00 Test Item Value Reference Range Interpretation Comments Troponin-I (test code no gt See_Comment [Auto mated message] The = Troponin-I) system which g enerated this result transmit thelma reference range : <=0.40. The reference r eric was not used to interpr et this result as zana l/abnormal. [facility] [employer]2020-01-20 21:57:00 Test Item Value Reference Range Interpretation Comments Glucose Lvl (test code = Glucose Lvl) 85 70-99 [facility] [employer]2020-01-20 21:57:00 Test Item Value Reference Range Interpretation Comments BUN (test code = BUN) 38 7-22 [facility] [employer] [id number] 21:57:00 Test Item Value Reference Range Interpretation Comments Creatinine Lvl (test code = Creatinine 1.00 0.50-1.40 Lvl) [facility]2020-01-20 21:57:00 Test Item Value Reference Range Interpretation Comments Sodium Lvl (test code = Sodium Lvl) 138 135-145 [place] 392080-01-20 21:57:00 Test Item Value Reference Range Interpretation Comments Potassium Lvl (test code = Potassium 5.3 3.5-5.1 Lvl) [facility]2020-01-20 21:57:00 Test Item Value Reference Range Interpretation Comments Chloride Lvl (test code = Chloride Lvl) 108 95-109 [place] 392080-01-20 21:57:00 Test Item Value Reference Range Interpretation Comments CO2 (test code = CO2) 24 24-32 [facility]2020-01-20 21:57:00 Test Item Value Reference Range Interpretation Comments Calcium Lvl (test code = Calcium Lvl) 8.5 8.5-10.5 [facility]2020-01-20 21:57:00 Test Item Value Reference Range Interpretation Comments Total Protein (test code = Total 6.1 6.4-8.4 Protein) [facility]2020-01-20 21:57:00 Test Item Value Reference Range Interpretation Comments Albumin Lvl (test code = Albumin Lvl) 2.6 3.5-5.0 [facility]2020-01-20 21:57:00 Test Item Value Reference Range Interpretation Comments ALT (test code = ALT) 12 See_Comment [Auto mated message] The system which ge nerated this result transmit thelma reference range : <=65. The reference range was not used to interpr et this result as zana l/abnormal. [facility] [id number] 21:57:00 Test Item Value Reference Range Interpretation Comments AST (test code = AST) 19 See_Comment [Auto mated message] The system which [employer] nerated this result transmit thelma reference range : <=37. The reference range was not used to interpr et this result as zana l/abnormal. [facility] CenterMuckRock [id number] 21:57:00 Test Item Value Reference Range Interpretation Comments Alk Phos (test code = Alk Phos) 52 39-136 [facility]2020-01-20 21:57:00 Test Item Value Reference Range Interpretation Comments Bili Total (test code = Bili Total) 0.3 0.2-1.3 [facility]2020-01-20 21:57:00 Test Item Value Reference Range Interpretation Comments AGAP (test code = AGAP) 11.3 10.0-20.0 [facility]2020-01-20 21:57:00 Test Item Value Reference Range Interpretation Comments B/C Ratio (test code = B/C Ratio) 38 1 6-25 [facility] [id number] 21:57:00 Test Item Value Reference Range Interpretation Comments Globulin (test code = Globulin) 3.5 2.7-4.2 [facility]2020-01-20 21:57:00 Test Item Value Reference Range Interpretation Comments A/G Ratio (test code = A/G Ratio) 0.7 1 0.7-1.6 [facility]2020-01-20 21:57:00 Test Item Value Reference Range Interpretation Comments eGFR (test code = eGFR) 56 [facility]:SUSC:PT:ISOLATE:ORDQN:[id number] 21:05:00 Test Item Value Reference Range Interpretation Comments Culture: Urine (test >100,000 CFU/mL Proteus code = Culture: mirabilis Urine) [facility]:SUSC:PT:ISOLATE:ORDQN:[id number] 21:05:00 Test Item Value Reference Range Interpretation Comments Proteus mirabilis (test Proteus mirabilis code = Proteus mirabilis) [facility] AND [id number] 21:05:00 Test Item Value Reference Range Interpretation Comments UA Turbidity (test code Slight *ABN*(10/03/19 = UA Turbidity) 3:05 PM) [facility] AND [id number] 21:05:00 Test Item Value Reference Range Interpretation Comments UA Spec Grav (test code = UA Spec 1.017 1 Grav) [facility] AND [id number] 21:05:00 Test Item Value Reference Range Interpretation Comments UA pH (test code = UA pH) 7.0 1 5.0-8.0 [facility] AND [id number] 21:05:00 Test Item Value Reference Range Interpretation Comments UA Protein (test code = UA Protein) 30 mg/dL [facility] AND [id number] 21:05:00 Test Item Value Reference Range Interpretation Comments UA Glucose (test code = UA Negative mg/dL Glucose) [facility] AND [id number] 21:05:00 Test Item Value Reference Range Interpretation Comments UA Ketones (test code = UA Trace mg/dL Ketones) [facility] AND [id number] 21:05:00 Test Item Value Reference Range Interpretation Comments UA Bili (test code = Negative *NA*(10/03/19 UA Bili) 3:05 PM) [facility] AND [id number] 21:05:00 Test Item Value Reference Range Interpretation Comments UA Blood (test code = Moderate *ABN*(10/03/19 UA Blood) 3:05 PM) [facility] AND [id number] 21:05:00 Test Item Value Reference Range Interpretation Comments UA Urobilinogen (test code = UA 2.0 0.1-1.0 Urobilinogen) [facility] AND [id number] 21:05:00 Test Item Value Reference Range Interpretation Comments UA Nitrite (test code Positive *ABN*(10/03/19 = UA Nitrite) 3:05 PM) [facility] AND [id number] 21:05:00 Test Item Value Reference Range Interpretation Comments UA Leuk Est (test code Large *ABN*(10/03/19 = UA Leuk Est) 3:05 PM) [facility] AND [id number] 21:05:00 Test Item Value Reference Range Interpretation Comments UA WBC (test code = 90 See_Comment [Automa thelma message] The UA WBC) system which ge nerated this result transmit thelma reference range : <=5. The reference range was not used to interpr et this result as zana l/abnormal. [facility] AND [id number] 21:05:00 Test Item Value Reference Range Interpretation Comments UA RBC (test code = 9 See_Comment [Automa thelma message] The UA RBC) system which ge nerated this result transmit thelma reference range : <=2. The reference range was not used to interpr et this result as zana l/abnormal. [facility] [id number] 21:05:00 Test Item Value Reference Range Interpretation Comments UA Bacteria (test code = UA Few /HPF Bacteria) [facility] [id number] 21:05:00 Test Item Value Reference Range Interpretation Comments UA Mucus (test code = UA Mucus) Few /LPF [facility] [id number] 21:05:00 Test Item Value Reference Range Interpretation Comments UA Hyal Cast (test 4 See_Comment [Automat ed message] The code = UA Hyal Cast) system which generated this result transmit thelma reference range : <=2. The reference range was not used to interpr et this result as zana l/abnormal. [facility] [place] [id number] 21:05:00 Test Item Value Reference Range Interpretation Comments UA Sq Epi (test code = UA Sq Epi) None Seen [facility] [place] [id number] 21:05:00 Test Item Value Reference Range Interpretation Comments UA Color (test code = UA Color) YELLOW [facility] FallsHoneyMO:SUSC:PT:ISOLATE:ORDQN:[id number] 21:05:00 Test Item Value Reference Range Interpretation Comments Culture: Urine (test >100,000 CFU/mL Proteus code = Culture: mirabilis Urine) [facility]Elizabeth[facility]:SUSC:PT:ISOLATE:ORDQN:[id number] 21:05:00 Test Item Value Reference Range Interpretation Comments Proteus mirabilis (test Proteus mirabilis code = Proteus mirabilis) [facility] AND [id number] 21:05:00 Test Item Value Reference Range Interpretation Comments UA Turbidity (test code Slight *ABN*(10/03/19 = UA Turbidity) 3:05 PM) [facility] AND [id number] 21:05:00 Test Item Value Reference Range Interpretation Comments UA Spec Grav (test code = UA Spec 1.017 1 Grav) [facility] AND [id number] 21:05:00 Test Item Value Reference Range Interpretation Comments UA pH (test code = UA pH) 7.0 1 5.0-8.0 [facility] AND [id number] 21:05:00 Test Item Value Reference Range Interpretation Comments UA Protein (test code = UA Protein) 30 mg/dL [facility] AND [id number] 21:05:00 Test Item Value Reference Range Interpretation Comments UA Glucose (test code = UA Negative mg/dL Glucose) [facility] AND [id number] 21:05:00 Test Item Value Reference Range Interpretation Comments UA Ketones (test code = UA Trace mg/dL Ketones) [facility] AND [id number] 21:05:00 Test Item Value Reference Range Interpretation Comments UA Bili (test code = Negative *NA*(10/03/19 UA Bili) 3:05 PM) [facility] AND [id number] 21:05:00 Test Item Value Reference Range Interpretation Comments UA Blood (test code = Moderate *ABN*(10/03/19 UA Blood) 3:05 PM) [facility] AND [id number] 21:05:00 Test Item Value Reference Range Interpretation Comments UA Urobilinogen (test code = UA 2.0 0.1-1.0 Urobilinogen) [facility] AND [id number] 21:05:00 Test Item Value Reference Range Interpretation Comments UA Nitrite (test code Positive *ABN*(10/03/19 = UA Nitrite) 3:05 PM) [facility] AND [id number] 21:05:00 Test Item Value Reference Range Interpretation Comments UA Leuk Est (test code Large *ABN*(10/03/19 = UA Leuk Est) 3:05 PM) [facility] AND [id number] 21:05:00 Test Item Value Reference Range Interpretation Comments UA WBC (test code = 90 See_Comment [Automa thelma message] The UA WBC) system which ge nerated this result transmit thelma reference range : <=5. The reference range was not used to interpr et this result as zana l/abnormal. [facility] AND [id number] 21:05:00 Test Item Value Reference Range Interpretation Comments UA RBC (test code = 9 See_Comment [Automa thelma message] The UA RBC) system which ge nerated this result transmit thelma reference range : <=2. The reference range was not used to interpr et this result as zana l/abnormal. [facility] AND [id number] 21:05:00 Test Item Value Reference Range Interpretation Comments UA Bacteria (test code = UA Few /HPF Bacteria) [facility] AND [id number] 21:05:00 Test Item Value Reference Range Interpretation Comments UA Mucus (test code = UA Mucus) Few /LPF [facility] AND [id number] 21:05:00 Test Item Value Reference Range Interpretation Comments UA Hyal Cast (test 4 See_Comment [Automat ed message] The code = UA Hyal Cast) system which generated this result transmit thelma reference range : <=2. The reference range was not used to interpr et this result as zana l/abnormal. [facility] AND [id number] 21:05:00 Test Item Value Reference Range Interpretation Comments UA Sq Epi (test code = UA Sq Epi) None Seen [facility] AND [id number] 21:05:00 Test Item Value Reference Range Interpretation Comments UA Color (test code = UA Color) YELLOW [facility] FallsRock Content [id number] 20:43:00 Test Item Value Reference Range Interpretation Comments Procalcitonin Lvl (test no gt See_Comment [Au tomated message] code = Procalcitonin Lvl) Th e system which generated this result transmitted ref erence range: <=0.10. The reference range was not used to interpr et this result as normal/abnormal . [facility] [employer] [id number] 20:43:00 Test Item Value Reference Range Interpretation Comments Lactic Acid Lvl (test code = Lactic 1.3 0.5-2.2 Acid Lvl) [facility] [id number] 20:43:00 Test Item Value Reference Range Interpretation Comments WBC (test code = WBC) 20.6 3.7-10.4 [facility] Cent[id number] 20:43:00 Test Item Value Reference Range Interpretation Comments RBC (test code = RBC) 4.33 4.20-5.40 [facility]WztqwrwGQKWBWXVPK1649-09-53 20:43:00 Test Item Value Reference Range Interpretation Comments Hgb (test code = Hgb) 11.2 12.0-16.0 [facility] Cent[id number] 20:43:00 Test Item Value Reference Range Interpretation Comments Hct (test code = Hct) 35.9 36.0-48.0 [facility] CenterGnizvwfUVZIJGIYUN3075-39-01 20:43:00 Test Item Value Reference Range Interpretation Comments MCV (test code = MCV) 83.0 80.0-98.0 [facility] CenterLwzxjefWNIOXDJRIG9876-95-21 20:43:00 Test Item Value Reference Range Interpretation Comments MCH (test code = MCH) 25.9 pg 27.0-31.0 [facility] Cent[id number] 20:43:00 Test Item Value Reference Range Interpretation Comments MCHC (test code = MCHC) 31.2 32.0-36.0 [facility] CenterStxwsjgNBEVEMCNNM5784-60-05 20:43:00 Test Item Value Reference Range Interpretation Comments RDW (test code = RDW) 14.9 11.5-14.5 [facility] [id number] 20:43:00 Test Item Value Reference Range Interpretation Comments Platelet (test code = Platelet) 358 133-450 [facility] CenterIanzdpgXJOVLHWFWV4409-04-00 20:43:00 Test Item Value Reference Range Interpretation Comments MPV (test code = MPV) 7.9 7.4-10.4 [facility] CenterVntsevmLNRHOPYAQJ9891-37-90 20:43:00 Test Item Value Reference Range Interpretation Comments PT (test code = PT) 14.3 s 12.0-14.7 [facility] CenterKgggzaiCNSGOTVHFZ1466-83-28 20:43:00 Test Item Value Reference Range Interpretation Comments INR (test code = INR) 1.11 1 0.85-1.17 [facility] CenterQxfavahQMCZMHQHQS0743-81-44 20:43:00 Test Item Value Reference Range Interpretation Comments PTT (test code = PTT) 24.8 s 22.9-35.8 [facility] CenterShzsdvbVRTTMSNUDU3910-86-26 20:43:00 Test Item Value Reference Range Interpretation Comments Segs (test code = Segs) 88.7 45.0-75.0 [facility] CenterGqjubbuURQLUEXFGP2415-28-12 20:43:00 Test Item Value Reference Range Interpretation Comments Lymphocytes (test code = Lymphocytes) 5.5 20.0-40.0 [facility] CenterWwlxopgGMFFVJAWJJ0432-18-47 20:43:00 Test Item Value Reference Range Interpretation Comments Monocytes (test code = Monocytes) 5.3 2.0-12.0 [facility] CenterWococmvQTLMTAOMUC4264-29-35 20:43:00 Test Item Value Reference Range Interpretation Comments Eosinophils (test code = 0.3 See_Comment [A utomated message] The Eosinophils) system which ge nerated this result tra nsmitted reference range : <=4.0. The reference r eric was not used to int erpret this result as normal/abnormal . [facility] CenterGxujdwcQBVXNVOLFL1861-26-05 20:43:00 Test Item Value Reference Range Interpretation Comments Basophils (test code = 0.2 See_Comment [Aut omated message] The Basophils) system which ge nerated this result tra nsmitted reference range : <=1.0. The reference r eric was not used to int erpret this result as normal/abnormal . [facility] CenterXkdcdzfBYCGZDPXWY3205-04-29 20:43:00 Test Item Value Reference Range Interpretation Comments Neutrophils # (test code = Neutrophils 18.2 1.5-8.1 #) [facility] CenterRltrjieWYKYWPYFSU5401-44-80 20:43:00 Test Item Value Reference Range Interpretation Comments Lymphocytes # (test code = Lymphocytes 1.1 1.0-5.5 #) [facility] CenterGptevflDOLYAVFHIH2419-19-33 20:43:00 Test Item Value Reference Range Interpretation Comments Monocytes # (test code 1.1 See_Comment [Aut omated message] The = Monocytes #) system which generated this result tra nsmitted reference range : <=0.8. The reference r eric was not used to int erpret this result as normal/abnormal . [facility] Cent[id number] 20:43:00 Test Item Value Reference Range Interpretation Comments Eosinophils # (test code 0.1 See_Comment [A utomated message] The = Eosinophils #) system whic h generated this result tra nsmitted reference range : <=0.5. The reference r eric was not used to int erpret this result as normal/abnormal . [facility]2020-01-20 20:43:00 Test Item Value Reference Range Interpretation Comments Procalcitonin Lvl (test no gt See_Comment [Au tomated message] code = Procalcitonin Lvl) Th e system which generated this result transmitted ref erence range: <=0.10. The reference range was not used to interpr et this result as normal/abnormal . [facility]2020-01-20 20:43:00 Test Item Value Reference Range Interpretation Comments Lactic Acid Lvl (test code = Lactic 1.3 0.5-2.2 Acid Lvl) [facility] CenterSectjioDENNZATRLH3935-71-04 20:43:00 Test Item Value Reference Range Interpretation Comments WBC (test code = WBC) 20.6 3.7-10.4 [facility] CenterMwpskypLROJLQEOZT4467-07-74 20:43:00 Test Item Value Reference Range Interpretation Comments RBC (test code = RBC) 4.33 4.20-5.40 [facility] CenterOvpnbxhWTDDKVJDZR8728-24-92 20:43:00 Test Item Value Reference Range Interpretation Comments Hgb (test code = Hgb) 11.2 12.0-16.0 [facility] CenterZsytddjKBUHXHMDHE7674-68-42 20:43:00 Test Item Value Reference Range Interpretation Comments Hct (test code = Hct) 35.9 36.0-48.0 [facility] CenterRtuojvqXYDGGXWQBX5027-72-23 20:43:00 Test Item Value Reference Range Interpretation Comments MCV (test code = MCV) 83.0 80.0-98.0 [facility] CenterGxxqhcyUGLBDKJRMR6032-06-31 20:43:00 Test Item Value Reference Range Interpretation Comments MCH (test code = MCH) 25.9 pg 27.0-31.0 [facility] CenterCzglorzRLMZYBWFXG9260-37-53 20:43:00 Test Item Value Reference Range Interpretation Comments MCHC (test code = MCHC) 31.2 32.0-36.0 [facility] CenterZimvfhmNSEEAKRNAR5066-17-25 20:43:00 Test Item Value Reference Range Interpretation Comments RDW (test code = RDW) 14.9 11.5-14.5 [facility] CenterIgqzqkyWHPFKUYTLD9127-42-23 20:43:00 Test Item Value Reference Range Interpretation Comments Platelet (test code = Platelet) 358 133-450 [facility] CenterFoosmgtYYBEVJMGNN6062-15-84 20:43:00 Test Item Value Reference Range Interpretation Comments MPV (test code = MPV) 7.9 7.4-10.4 [facility] CenterTzyvqokCVBRUCZAZK3407-60-91 20:43:00 Test Item Value Reference Range Interpretation Comments PT (test code = PT) 14.3 s 12.0-14.7 [facility] CenterCxrrncuIUTBRAVYYQ6908-06-50 20:43:00 Test Item Value Reference Range Interpretation Comments INR (test code = INR) 1.11 1 0.85-1.17 [facility] CenterGzcqqowHZLHTLVGAJ4784-75-16 20:43:00 Test Item Value Reference Range Interpretation Comments PTT (test code = PTT) 24.8 s 22.9-35.8 [facility] CenterLcqkcstHPRWXBDTIW7904-38-76 20:43:00 Test Item Value Reference Range Interpretation Comments Segs (test code = Segs) 88.7 45.0-75.0 [facility] CenterKlqvpxvRRSMUXNRJP1312-37-58 20:43:00 Test Item Value Reference Range Interpretation Comments Lymphocytes (test code = Lymphocytes) 5.5 20.0-40.0 [facility] CenterNwdjkupZWWCJGPQKE8169-77-73 20:43:00 Test Item Value Reference Range Interpretation Comments Monocytes (test code = Monocytes) 5.3 2.0-12.0 [facility] CenterMajclvsSTBRJZQRNO0769-95-79 20:43:00 Test Item Value Reference Range Interpretation Comments Eosinophils (test code = 0.3 See_Comment [A utomated message] The Eosinophils) system which ge nerated this result tra nsmitted reference range : <=4.0. The reference r eric was not used to int erpret this result as normal/abnormal . [facility] CenterKamwmzpMMRUAHDZWN8813-43-39 20:43:00 Test Item Value Reference Range Interpretation Comments Basophils (test code = 0.2 See_Comment [Aut omated message] The Basophils) system which ge nerated this result tra nsmitted reference range : <=1.0. The reference r eric was not used to int erpret this result as normal/abnormal . [facility] CenterTmwhnqtJNFHALENME8750-17-58 20:43:00 Test Item Value Reference Range Interpretation Comments Neutrophils # (test code = Neutrophils 18.2 1.5-8.1 #) [facility] CenterBkekvwfSSPYUBEGNL5875-67-23 20:43:00 Test Item Value Reference Range Interpretation Comments Lymphocytes # (test code = Lymphocytes 1.1 1.0-5.5 #) [facility] [id number] 20:43:00 Test Item Value Reference Range Interpretation Comments Monocytes # (test code 1.1 See_Comment [Aut omated message] The = Monocytes #) system which generated this result tra nsmitted reference range : <=0.8. The reference r eric was not used to int erpret this result as normal/abnormal . [facility]AecabneIYTZPHUJHU0911-86-33 20:43:00 Test Item Value Reference Range Interpretation Comments Eosinophils # (test code 0.1 See_Comment [A utomated message] The = Eosinophils #) system Suo Yi generated this result tra nsmitted reference range : <=0.5. The reference r eric was not used to int erpret this result as normal/abnormal . [facility] Jasbir, EXTREMITY, LOWER, JOINT, WITHOUT CONTRAST, [id number] 17:12:00Reason for exam:->RT hip pain, concern occult fracture, prior CT negativeFINAL REPORT Indication: RT hip pain, concern occult fracture, prior CT negative TECHNIQUE: Multiplanar multisequence MRI examination of the right hip was performed without intravenous contrast. COMPARISON: Radiographs from the same date FINDINGS: There is a full-thickness ruptureof the iliopsoas tendon at its lesser trochanter [...] is partial visualization of degenerative changes of thelower lumbar spine. IMPRESSION:1. Rupture of the right iliopsoas tendon as above. Signed: Zoltan NarayanMDReport Verified Date/Time: 09/17/2018 17:12:01 Reading Location: [facility] B1 C013X Ortho Consult Reading Room RAD, KNEE, 3 VIEWS, [id number] 15:21:00 Reason for exam:->KNEE PAIN Should this be performed at the bedside?->No FINAL REPORT RIGHT KNEE THREE VIEWS History provided: Knee pain Considerable joint space narrowing medially with mild spurring indicative of medial compartment degenerative arthritis. No varus or valgus deformity. Narrowed patellofemoral space. No signs of joint effusion. Incidental vascular calcification. IMPRESSION: Chronic degenerative arthritis most prominent in the medial compartment. Signed: Tony Walton Verified Date/Time: 09/17/2018 15:21:02 Reading Location: [facility] Diagnostic Imaging Reading [facility] F1 1.310.12 RAD, HIP, 2 VIEWS, [id number] 15:19:00Reason for exam:->Rt Hip Pain, traumaShould this be performed at the bedside?->NoFINAL REPORT RIGHT HIP History provided: Right hip pain No fracture or dislocation. Hip joint space well maintained. Evidence of extensive multilevel fusion procedure in the lumbarspine. Signed: Tony Walton Verified Date/Time: 09/17/2018 15:19:53 [facility] F1 1.310.12 URINE AND [id number] 08:10:00 Test Item Value Reference Range Interpretation Comments UA Leuk Est (test Negative (12/10/16 3:10 code = UA Leuk Est) AM) [facility] AND [id number] 08:10:00 Test Item Value Reference Range Interpretation Comments UA Sq Epi (test code = UA Sq Occasional /LPF Epi) [facility] AND [id number] 08:10:00 Test Item Value Reference Range Interpretation Comments UA WBC (test code = no gt See_Comment [Automa thelma message] The UA WBC) system which ge nerated this result transmit thelma reference range : <=5. The reference range was not used to interpr et this result as zana l/abnormal. [facility] AND [id number] 08:10:00 Test Item Value Reference Range Interpretation Comments UA Mucus (test code = UA Mucus) Few /LPF [facility] AND [id number] 08:10:00 Test Item Value Reference Range Interpretation Comments UA Glucose (test code = UA Negative mg/dL Glucose) [facility] AND [id number] 08:10:00 Test Item Value Reference Range Interpretation Comments UA Ketones (test code = UA Negative mg/dL Ketones) [facility] AND [id number] 08:10:00 Test Item Value Reference Range Interpretation Comments UA Nitrite (test code Negative (12/10/16 3:10 = UA Nitrite) AM) [facility] AND [id number] 08:10:00 Test Item Value Reference Range Interpretation Comments UA Blood (test code = Negative (12/10/16 3:10 UA Blood) AM) [facility] AND [id number] 08:10:00 Test Item Value Reference Range Interpretation Comments UA Bili (test code = Negative *NA*(12/10/16 UA Bili) 3:10 AM) [facility] AND [id number] 08:10:00 Test Item Value Reference Range Interpretation Comments UA Color (test code = Light Yellow UA Color) *NA*(12/10/16 3:10 AM) [facility] AND [id number] 08:10:00 Test Item Value Reference Range Interpretation Comments UA Turbidity (test code = Clear (12/10/16 3:10 UA Turbidity) AM) [facility] AND [id number] 08:10:00 Test Item Value Reference Range Interpretation Comments UA pH (test code = UA pH) 6.5 5.0-8.0 [facility] AND [id number] 08:10:00 Test Item Value Reference Range Interpretation Comments UA Protein (test code = UA Negative mg/dL Protein) [facility] AND [id number] 08:10:00 Test Item Value Reference Range Interpretation Comments UA Spec Grav (test code = UA Spec Grav) 1.008 [facility] AND [id number] 08:10:00 Test Item Value Reference Range Interpretation Comments UA Urobilinogen (test code = UA <=1.0 mg/dL 0.1-1.0 Urobilinogen) [facility] AND [id number] 08:10:00 Test Item Value Reference Range Interpretation Comments UA Leuk Est (test Negative (12/10/16 3:10 code = UA Leuk Est) AM) [facility] AND [id number] 08:10:00 Test Item Value Reference Range Interpretation Comments UA Sq Epi (test code = UA Sq Occasional /LPF Epi) [facility] AND [id number] 08:10:00 Test Item Value Reference Range Interpretation Comments UA WBC (test code = no gt See_Comment [Automa thelma message] The UA WBC) system which ge nerated this result transmit thelma reference range : <=5. The reference range was not used to interpr et this result as zana l/abnormal. [facility] AND [id number] 08:10:00 Test Item Value Reference Range Interpretation Comments UA Mucus (test code = UA Mucus) Few /LPF [facility] AND [id number] 08:10:00 Test Item Value Reference Range Interpretation Comments UA Glucose (test code = UA Negative mg/dL Glucose) [facility] AND [id number] 08:10:00 Test Item Value Reference Range Interpretation Comments UA Ketones (test code = UA Negative mg/dL Ketones) [facility] AND [id number] 08:10:00 Test Item Value Reference Range Interpretation Comments UA Nitrite (test code Negative (12/10/16 3:10 = UA Nitrite) AM) [facility] AND [id number] 08:10:00 Test Item Value Reference Range Interpretation Comments UA Blood (test code = Negative (12/10/16 3:10 UA Blood) AM) [facility] AND [id number] 08:10:00 Test Item Value Reference Range Interpretation Comments UA Bili (test code = Negative *NA*(12/10/16 UA Bili) 3:10 AM) [facility] AND [id number] 08:10:00 Test Item Value Reference Range Interpretation Comments UA Color (test code = Light Yellow UA Color) *NA*(12/10/16 3:10 AM) [facility] AND [id number] 08:10:00 Test Item Value Reference Range Interpretation Comments UA Turbidity (test code = Clear (12/10/16 3:10 UA Turbidity) AM) [facility] AND [id number] 08:10:00 Test Item Value Reference Range Interpretation Comments UA pH (test code = UA pH) 6.5 5.0-8.0 [facility] AND [id number] 08:10:00 Test Item Value Reference Range Interpretation Comments UA Protein (test code = UA Negative mg/dL Protein) [facility] [place] AND [id number] 08:10:00 Test Item Value Reference Range Interpretation Comments UA Spec Grav (test code = UA Spec Grav) 1.008 [facility] FallsannURINE AND [id number] 08:10:00 Test Item Value Reference Range Interpretation Comments UA Urobilinogen (test code = UA <=1.0 mg/dL 0.1-1.0 Urobilinogen) [facility] FallsAdjacent ApplicationsAC [id number] 07:48:00 Test Item Value Reference Range Interpretation Comments Total CK (test code = Total CK) 59 12-191 [facility] [employer] [id number] 07:48:00 Test Item Value Reference Range Interpretation Comments Troponin-I (test code no gt See_Comment [Auto mated message] The = Troponin-I) system which g enerated this result transmit thelma reference range : <=0.40. The reference r eric was not used to interpr et this result as zana l/abnormal. [facility] [employer] [id number] 07:48:00 Test Item Value Reference Range Interpretation Comments CK MB (test code = CK MB) 1.4 0.5-3.6 [facility] FallsDunwello [id number] 07:48:00 Test Item Value Reference Range Interpretation Comments CK MB Index (test 2.4 See_Comment [Automate d message] The code = CK MB Index) system w [facility] generated this result transmit thelma reference range : <=2.5. The reference range was not used to interpr et this result as zana l/abnormal. [facility] [employer] [id number] 07:48:00 Test Item Value Reference Range Interpretation Comments eGFR (test code = eGFR) 55 [place] [facility] [employer] [id number] 07:48:00 Test Item Value Reference Range Interpretation Comments B/C Ratio (test code = B/C Ratio) 23 6-25 [facility] [employer] [id number] 07:48:00 Test Item Value Reference Range Interpretation Comments Globulin (test code = Globulin) 3.5 2.7-4.2 [facility] [employer] [id number] 07:48:00 Test Item Value Reference Range Interpretation Comments AGAP (test code = AGAP) 16.2 10.0-20.0 [facility]2017-03-29 07:48:00 Test Item Value Reference Range Interpretation Comments Creatinine Lvl (test code = Creatinine 1.04 0.50-1.40 Lvl) [facility]2017-03-29 07:48:00 Test Item Value Reference Range Interpretation Comments Sodium Lvl (test code = Sodium Lvl) 139 135-145 [facility]2017-03-29 07:48:00 Test Item Value Reference Range Interpretation Comments BUN (test code = BUN) 24 7-22 [facility]2017-03-29 07:48:00 Test Item Value Reference Range Interpretation Comments Glucose Lvl (test code = Glucose Lvl) 153 70-99 [facility]2017-03-29 07:48:00 Test Item Value Reference Range Interpretation Comments A/G Ratio (test code = A/G Ratio) 1.1 0.7-1.6 [facility]2017-03-29 07:48:00 Test Item Value Reference Range Interpretation Comments Calcium Lvl (test code = Calcium Lvl) 9.6 8.5-10.5 [facility]2017-03-29 07:48:00 Test Item Value Reference Range Interpretation Comments Total Protein (test code = Total 7.3 6.4-8.4 Protein) [facility]2017-03-29 07:48:00 Test Item Value Reference Range Interpretation Comments Chloride Lvl (test code = Chloride Lvl) 106 95-109 [facility]2017-03-29 07:48:00 Test Item Value Reference Range Interpretation Comments CO2 (test code = CO2) 22 24-32 [facility]2017-03-29 07:48:00 Test Item Value Reference Range Interpretation Comments Potassium Lvl (test code = Potassium 5.2 3.5-5.1 Lvl) [facility]2017-03-29 07:48:00 Test Item Value Reference Range Interpretation Comments Bili Total (test code = Bili Total) 0.1 0.2-1.3 [facility]2017-03-29 07:48:00 Test Item Value Reference Range Interpretation Comments AST (test code = AST) 12 See_Comment [Auto mated message] The system which ge nerated this result transmit thelma reference range : <=37. The reference range was not used to interpr et this result as zana l/abnormal. [facility]2017-03-29 07:48:00 Test Item Value Reference Range Interpretation Comments Alk Phos (test code = Alk Phos) 58 39-136 [facility]2017-03-29 07:48:00 Test Item Value Reference Range Interpretation Comments ALT (test code = ALT) 15 See_Comment [Auto mated message] The system which ge nerated this result transmit thelma reference range : <=65. The reference range was not used to interpr et this result as zana l/abnormal. [facility] [id number] 07:48:00 Test Item Value Reference Range Interpretation Comments Albumin Lvl (test code = Albumin Lvl) 3.8 3.5-5.0 [facility] CenterXrgdkjcXSIUXFCXNP6226-47-29 07:48:00 Test Item Value Reference Range Interpretation Comments WBC (test code = WBC) 10.0 3.7-10.4 [facility] CenterVqtyzkqPLQOJKZHFJ9173-93-77 07:48:00 Test Item Value Reference Range Interpretation Comments MCV (test code = MCV) 83.2 80.0-98.0 [facility] CenterSwgszioHRSNIZBZMR4776-88-54 07:48:00 Test Item Value Reference Range Interpretation Comments Hct (test code = Hct) 38.1 36.0-48.0 [facility] CenterRtwgjpoFOWGBNRZYA9942-89-56 07:48:00 Test Item Value Reference Range Interpretation Comments Hgb (test code = Hgb) 12.3 12.0-16.0 [facility] CenterCobnhtlBOIKLPBWPR4256-87-60 07:48:00 Test Item Value Reference Range Interpretation Comments RBC (test code = RBC) 4.57 4.20-5.40 [facility] CenterPsuufipAOKYGXKRMK8866-52-32 07:48:00 Test Item Value Reference Range Interpretation Comments RDW (test code = RDW) 14.1 11.5-14.5 [facility] CenterCvhybbzIRYCULJEJQ7905-02-54 07:48:00 Test Item Value Reference Range Interpretation Comments MCHC (test code = MCHC) 32.2 32.0-36.0 [facility] CenterPoyippxHRKKUQJURH0286-66-89 07:48:00 Test Item Value Reference Range Interpretation Comments MPV (test code = MPV) 9.2 7.4-10.4 [facility] CenterQokgypnZJUASJGVKF0172-66-78 07:48:00 Test Item Value Reference Range Interpretation Comments MCH (test code = MCH) 26.8 pg 27.0-31.0 [place] [address]-03-29 07:48:00 Test Item Value Reference Range Interpretation Comments Platelet (test code = Platelet) 279 133-450 [facility] CenterCbzbvrzJNYLAOWWVX8852-89-08 07:48:00 Test Item Value Reference Range Interpretation Comments PTT (test code = PTT) 26.5 s 22.9-35.8 [place] [address]-03-29 07:48:00 Test Item Value Reference Range Interpretation Comments INR (test code = INR) 0.99 0.85-1.17 [place] [address]-03-29 07:48:00 Test Item Value Reference Range Interpretation Comments PT (test code = PT) 13.3 s 12.0-14.7 [place] [id number] 07:48:00 Test Item Value Reference Range Interpretation Comments Monocytes # (test code 0.7 See_Comment [Aut omated message] The = Monocytes #) system which generated this result tra nsmitted reference range : <=0.8. The reference r eric was not used to int erpret this result as normal/abnormal . [facility] CenterKdudpuqDXACCXYBMN8745-78-31 07:48:00 Test Item Value Reference Range Interpretation Comments Lymphocytes # (test code = Lymphocytes 1.9 1.0-5.5 #) [facility] CenterKmyzhhoMJVPHCMCOU2506-93-61 07:48:00 Test Item Value Reference Range Interpretation Comments Basophils # (test code 0.1 See_Comment [Aut omated message] The = Basophils #) system which generated this result tra nsmitted reference range : <=0.2. The reference r eric was not used to int erpret this result as normal/abnormal . [facility] CenterNpnhesgLWZYPIEPCL6484-94-28 07:48:00 Test Item Value Reference Range Interpretation Comments Eosinophils # (test code 0.5 See_Comment [A utomated message] The = Eosinophils #) system whic h generated this result tra nsmitted reference range : <=0.5. The reference r eric was not used to int erpret this result as normal/abnormal . [facility] CenterXoqwiwyMPOCNBCWDM3053-44-63 07:48:00 Test Item Value Reference Range Interpretation Comments Segs (test code = Segs) 68.0 45.0-75.0 [facility] CenterIjiuxrhRTYTNLFUMP4520-21-94 07:48:00 Test Item Value Reference Range Interpretation Comments Eosinophils (test code = 4.7 See_Comment [A utomated message] The Eosinophils) system which ge nerated this result tra nsmitted reference range : <=4.0. The reference r eric was not used to int erpret this result as normal/abnormal . [facility] CenterKghcdfdHQVWHCRSUO2147-49-65 07:48:00 Test Item Value Reference Range Interpretation Comments Monocytes (test code = Monocytes) 7.4 2.0-12.0 [facility] HospitalPafnefrHFVPEAUONU4083-38-10 07:48:00 Test Item Value Reference Range Interpretation Comments Lymphocytes (test code = Lymphocytes) 19.4 20.0-40.0 [facility] HospitalHkkuqdcOYVQRAHPNQ2551-19-19 07:48:00 Test Item Value Reference Range Interpretation Comments Segs-Bands # (test code = Segs-Bands #) 6.8 1.5-8.1 [facility] HospitalDnyhdleHKPSQFSVEV0237-83-83 07:48:00 Test Item Value Reference Range Interpretation Comments Basophils (test code = 0.5 See_Comment [Aut omated message] The Basophils) system which ge nerated this result tra nsmitted reference range : <=1.0. The reference r eric was not used to int erpret this result as normal/abnormal . [facility] FallsDunwello KCNFDUV0659-97-78 07:48:00 Test Item Value Reference Range Interpretation Comments Total CK (test code = Total CK) 59 12-191 [facility] CenterApps & ZertsCambridge SelectJVWURGG0578-01-99 07:48:00 Test Item Value Reference Range Interpretation Comments Troponin-I (test code no gt See_Comment [Auto mated message] The = Troponin-I) system which g enerated this result transmit thelma reference range : <=0.40. The reference r eric was not used to interpr et this result as zana l/abnormal. [facility] FallsSTEGOSYSTEMS2017-03-29 07:48:00 Test Item Value Reference Range Interpretation Comments CK MB (test code = CK MB) 1.4 0.5-3.6 [facility] CenterCARDIAC [id number] 07:48:00 Test Item Value Reference Range Interpretation Comments CK MB Index (test 2.4 See_Comment [Automate d message] The code = CK MB Index) system w [facility] generated this result transmit thelma reference range : <=2.5. The reference range was not used to interpr et this result as zana l/abnormal. [facility] CenterMuckRock [id number] 07:48:00 Test Item Value Reference Range Interpretation Comments eGFR (test code = eGFR) 55 [facility]2017-03-29 07:48:00 Test Item Value Reference Range Interpretation Comments B/C Ratio (test code = B/C Ratio) 23 6-25 [facility]2017-03-29 07:48:00 Test Item Value Reference Range Interpretation Comments Globulin (test code = Globulin) 3.5 2.7-4.2 [facility] FallsSintact Medical Systems, LLCBLUE RIDGE REGIONAL HOSPITALIYLRW0311-98-31 07:48:00 Test Item Value Reference Range Interpretation Comments AGAP (test code = AGAP) 16.2 10.0-20.0 [facility] FallsSintact Medical Systems, LLCBLUE RIDGE REGIONAL HOSPITALPJQJG2620-16-32 07:48:00 Test Item Value Reference Range Interpretation Comments Creatinine Lvl (test code = Creatinine 1.04 0.50-1.40 Lvl) [facility]2017-03-29 07:48:00 Test Item Value Reference Range Interpretation Comments Sodium Lvl (test code = Sodium Lvl) 139 135-145 [facility] FallsSintact Medical Systems, LLCBLUE RIDGE REGIONAL HOSPITALLTBXL9647-12-60 07:48:00 Test Item Value Reference Range Interpretation Comments BUN (test code = BUN) 24 7-22 [facility] FallsRock Content [id number] 07:48:00 Test Item Value Reference Range Interpretation Comments Glucose Lvl (test code = Glucose Lvl) 153 70-99 [facility]2017-03-29 07:48:00 Test Item Value Reference Range Interpretation Comments A/G Ratio (test code = A/G Ratio) 1.1 0.7-1.6 [facility]2017-03-29 07:48:00 Test Item Value Reference Range Interpretation Comments Calcium Lvl (test code = Calcium Lvl) 9.6 8.5-10.5 [facility]2017-03-29 07:48:00 Test Item Value Reference Range Interpretation Comments Total Protein (test code = Total 7.3 6.4-8.4 Protein) [facility]2017-03-29 07:48:00 Test Item Value Reference Range Interpretation Comments Chloride Lvl (test code = Chloride Lvl) 106 95-109 [facility]2017-03-29 07:48:00 Test Item Value Reference Range Interpretation Comments CO2 (test code = CO2) 22 24-32 [place] 543377-03-29 07:48:00 Test Item Value Reference Range Interpretation Comments Potassium Lvl (test code = Potassium 5.2 3.5-5.1 Lvl) [facility]2017-03-29 07:48:00 Test Item Value Reference Range Interpretation Comments Bili Total (test code = Bili Total) 0.1 0.2-1.3 [facility]2017-03-29 07:48:00 Test Item Value Reference Range Interpretation Comments AST (test code = AST) 12 See_Comment [Auto mated message] The system which ge nerated this result transmit thelma reference range : <=37. The reference range was not used to interpr et this result as zana l/abnormal. [facility]2017-03-29 07:48:00 Test Item Value Reference Range Interpretation Comments Alk Phos (test code = Alk Phos) 58 39-136 [facility]2017-03-29 07:48:00 Test Item Value Reference Range Interpretation Comments ALT (test code = ALT) 15 See_Comment [Auto mated message] The system which ge nerated this result transmit thelma reference range : <=65. The reference range was not used to interpr et this result as zana l/abnormal. [facility]2017-03-29 07:48:00 Test Item Value Reference Range Interpretation Comments Albumin Lvl (test code = Albumin Lvl) 3.8 3.5-5.0 [facility] CenterVnejgahXQHQWIWOUP5116-64-49 07:48:00 Test Item Value Reference Range Interpretation Comments WBC (test code = WBC) 10.0 3.7-10.4 [facility] CenterAtfrjpjVJCVYSMRZJ2765-55-53 07:48:00 Test Item Value Reference Range Interpretation Comments MCV (test code = MCV) 83.2 80.0-98.0 [facility] CenterPaqiadlNTKXFMNFXL3352-96-09 07:48:00 Test Item Value Reference Range Interpretation Comments Hct (test code = Hct) 38.1 36.0-48.0 [facility] CenterHtnatncEVCZILTEKK1873-01-76 07:48:00 Test Item Value Reference Range Interpretation Comments Hgb (test code = Hgb) 12.3 12.0-16.0 [facility] CenterJttsqdgTTVTWPAYXU5103-73-51 07:48:00 Test Item Value Reference Range Interpretation Comments RBC (test code = RBC) 4.57 4.20-5.40 [facility] CenterXlcahdjVBBLBILLWS8913-71-07 07:48:00 Test Item Value Reference Range Interpretation Comments RDW (test code = RDW) 14.1 11.5-14.5 [facility] CenterDseqtjtWELZOWGJOS1942-48-44 07:48:00 Test Item Value Reference Range Interpretation Comments MCHC (test code = MCHC) 32.2 32.0-36.0 [facility] CenterJtzanohXSGSASKBHR8281-16-08 07:48:00 Test Item Value Reference Range Interpretation Comments MPV (test code = MPV) 9.2 7.4-10.4 [facility] CenterAxzzomcKSSCPBHAGE0027-93-91 07:48:00 Test Item Value Reference Range Interpretation Comments MCH (test code = MCH) 26.8 pg 27.0-31.0 [facility] CenterKtbttuxRVALBBWZLO5570-53-73 07:48:00 Test Item Value Reference Range Interpretation Comments Platelet (test code = Platelet) 279 133-450 [facility] CenterEupspvsDIUWTJRMOC4010-38-29 07:48:00 Test Item Value Reference Range Interpretation Comments PTT (test code = PTT) 26.5 s 22.9-35.8 [facility] CenterQtscjjbEKDWBGSMOX1311-65-00 07:48:00 Test Item Value Reference Range Interpretation Comments INR (test code = INR) 0.99 0.85-1.17 [facility] CenterDbbpckiYSREFQVLGD5261-16-85 07:48:00 Test Item Value Reference Range Interpretation Comments PT (test code = PT) 13.3 s 12.0-14.7 [facility] CenterTxcdosxHRNOVFVUGX6868-04-43 07:48:00 Test Item Value Reference Range Interpretation Comments Monocytes # (test code 0.7 See_Comment [Aut omated message] The = Monocytes #) system which generated this result tra nsmitted reference range : <=0.8. The reference r eric was not used to int erpret this result as normal/abnormal . [facility] CenterGmetxjoPOOUVYZRWO7710-89-17 07:48:00 Test Item Value Reference Range Interpretation Comments Lymphocytes # (test code = Lymphocytes 1.9 1.0-5.5 #) [facility] CenterIavkqsgAZQOSQXOMK7644-56-64 07:48:00 Test Item Value Reference Range Interpretation Comments Basophils # (test code 0.1 See_Comment [Aut omated message] The = Basophils #) system which generated this result tra nsmitted reference range : <=0.2. The reference r eric was not used to int erpret this result as normal/abnormal . [facility] CenterYdaianaIROWPAVJON4280-20-27 07:48:00 Test Item Value Reference Range Interpretation Comments Eosinophils # (test code 0.5 See_Comment [A utomated message] The = Eosinophils #) system whic h generated this result tra nsmitted reference range : <=0.5. The reference r eric was not used to int erpret this result as normal/abnormal . [facility] CenterJdrupibNEITPIIECN3372-63-24 07:48:00 Test Item Value Reference Range Interpretation Comments Segs (test code = Segs) 68.0 45.0-75.0 [facility] CenterCwuvsisOKQKAFJKOA6292-10-24 07:48:00 Test Item Value Reference Range Interpretation Comments Eosinophils (test code = 4.7 See_Comment [A utomated message] The Eosinophils) system which ge nerated this result tra nsmitted reference range : <=4.0. The reference r eric was not used to int erpret this result as normal/abnormal . [facility] CenterAubssjhAWTBKADMIN8367-58-33 07:48:00 Test Item Value Reference Range Interpretation Comments Monocytes (test code = Monocytes) 7.4 2.0-12.0 [facility] CenterCbhpietEJQIIVCIXO4570-69-62 07:48:00 Test Item Value Reference Range Interpretation Comments Lymphocytes (test code = Lymphocytes) 19.4 20.0-40.0 [facility] CenterMbsdngyFCLNSZJDHR9067-09-61 07:48:00 Test Item Value Reference Range Interpretation Comments Segs-Bands # (test code = Segs-Bands #) 6.8 1.5-8.1 [facility] CenterHcmqjkaFBZXSSLNPF7474-07-05 07:48:00 Test Item Value Reference Range Interpretation Comments Basophils (test code = 0.5 See_Comment [Aut omated message] The Basophils) system which ge nerated this result tra nsmitted reference range : <=1.0. The reference r eric was not used to int erpret this result as normal/abnormal . [facility] [employer]2015-09-26 08:34:00 Test Item Value Reference Range Interpretation Comments Troponin-I (test code no gt See_Comment [Auto mated message] The = Troponin-I) system which g enerated this result transmit thelma reference range : <=0.40. The reference r eric was not used to interpr et this result as zana l/abnormal. [facility] FallsSTEGOSYSTEMS2015-09-26 08:34:00 Test Item Value Reference Range Interpretation Comments CK MB (test code = CK MB) 1.9 0.5-3.6 [facility] FallsSTEGOSYSTEMS2015-09-26 08:34:00 Test Item Value Reference Range Interpretation Comments Total CK (test code = Total CK) 82 12-191 [facility] FallsSTEGOSYSTEMS2015-09-26 08:34:00 Test Item Value Reference Range Interpretation Comments CK MB Index (test 2.3 See_Comment [Automate d message] The code = CK MB Index) system w [facility] generated this result transmit thelma reference range : <=2.5. The reference range was not used to interpr et this result as zana l/abnormal. [facility] [employer]2015-09-26 08:34:00 Test Item Value Reference Range Interpretation Comments Ammonia (test code = Ammonia) 13.0 [facility] [employer]2015-09-26 08:34:00 Test Item Value Reference Range Interpretation Comments eGFR (test code = eGFR) 65 [facility] [employer]2015-09-26 08:34:00 Test Item Value Reference Range Interpretation Comments ALT (test code = ALT) 20 See_Comment [Auto mated message] The system which ge nerated this result transmit thelma reference range : <=65. The reference range was not used to interpr et this result as zana l/abnormal. [facility] [employer]2015-09-26 08:34:00 Test Item Value Reference Range Interpretation Comments AST (test code = AST) 13 See_Comment [Auto mated message] The system which ge nerated this result transmit thelma reference range : <=37. The reference range was not used to interpr et this result as zana l/abnormal. [facility]2015-09-26 08:34:00 Test Item Value Reference Range Interpretation Comments Bili Total (test code = Bili Total) 0.6 0.2-1.3 [facility]2015-09-26 08:34:00 Test Item Value Reference Range Interpretation Comments AGAP (test code = AGAP) 10.9 10.0-20.0 [facility]2015-09-26 08:34:00 Test Item Value Reference Range Interpretation Comments Alk Phos (test code = Alk Phos) 47 39-136 [facility]2015-09-26 08:34:00 Test Item Value Reference Range Interpretation Comments A/G Ratio (test code = A/G Ratio) 1.2 0.7-1.6 [facility]2015-09-26 08:34:00 Test Item Value Reference Range Interpretation Comments Globulin (test code = Globulin) 3.4 2.0-4.0 [facility]2015-09-26 08:34:00 Test Item Value Reference Range Interpretation Comments B/C Ratio (test code = B/C Ratio) 22 6-25 [facility]2015-09-26 08:34:00 Test Item Value Reference Range Interpretation Comments Potassium Lvl (test code = Potassium 3.9 3.5-5.1 Lvl) [facility]2015-09-26 08:34:00 Test Item Value Reference Range Interpretation Comments CO2 (test code = CO2) 28 24-32 [facility]2015-09-26 08:34:00 Test Item Value Reference Range Interpretation Comments Chloride Lvl (test code = Chloride Lvl) 101 95-109 [facility]2015-09-26 08:34:00 Test Item Value Reference Range Interpretation Comments Calcium Lvl (test code = Calcium Lvl) 9.1 8.5-10.5 [facility]2015-09-26 08:34:00 Test Item Value Reference Range Interpretation Comments Total Protein (test code = Total 7.4 6.4-8.4 Protein) [facility]2015-09-26 08:34:00 Test Item Value Reference Range Interpretation Comments Albumin Lvl (test code = Albumin Lvl) 4.0 3.5-5.0 [facility]2015-09-26 08:34:00 Test Item Value Reference Range Interpretation Comments Glucose Lvl (test code = Glucose Lvl) 150 70-99 [place] 543375-09-26 08:34:00 Test Item Value Reference Range Interpretation Comments BUN (test code = BUN) 20 7-22 [place] 543375-09-26 08:34:00 Test Item Value Reference Range Interpretation Comments Creatinine Lvl (test code = Creatinine 0.9 0.5-1.4 Lvl) [place] 543375-09-26 08:34:00 Test Item Value Reference Range Interpretation Comments Sodium Lvl (test code = Sodium Lvl) 136 135-145 [place] 543375-09-26 08:34:00 Test Item Value Reference Range Interpretation Comments Magnesium Lvl (test code = Magnesium 1.8 1.8-2.4 Lvl) [place] 914105-09-26 08:34:00 Test Item Value Reference Range Interpretation Comments PTT (test code = PTT) 26.7 s 22.9-35.8 [place] 914105-09-26 08:34:00 Test Item Value Reference Range Interpretation Comments PT (test code = PT) 12.8 s 12.0-14.7 [place] 914105-09-26 08:34:00 Test Item Value Reference Range Interpretation Comments INR (test code = INR) 0.93 0.85-1.17 [place] 914105-09-26 08:34:00 Test Item Value Reference Range Interpretation Comments Platelet (test code = Platelet) 281 133-450 [facility] CenterTrzxpouZNSSNTUJEH3138-20-90 08:34:00 Test Item Value Reference Range Interpretation Comments MPV (test code = MPV) 9.5 7.4-10.4 [facility] CenterMjhnmdfLBFQHIQWLK6701-81-77 08:34:00 Test Item Value Reference Range Interpretation Comments RDW (test code = RDW) 14.8 11.5-14.5 [place] 914105-09-26 08:34:00 Test Item Value Reference Range Interpretation Comments MCHC (test code = MCHC) 32.5 32.0-36.0 [facility] CenterVffikcgQLKFIUUGWJ9043-84-79 08:34:00 Test Item Value Reference Range Interpretation Comments RBC (test code = RBC) 5.21 4.20-5.40 [facility] CenterBwqechwZSIWVWGAXM6834-30-53 08:34:00 Test Item Value Reference Range Interpretation Comments Hgb (test code = Hgb) 13.7 12.0-16.0 [facility] CenterQtrczqlCHRNZFKIDB9653-53-75 08:34:00 Test Item Value Reference Range Interpretation Comments WBC (test code = WBC) 10.6 3.7-10.4 [facility] CenterKtnhskzCWOIUAUNND2548-55-62 08:34:00 Test Item Value Reference Range Interpretation Comments Hct (test code = Hct) 42.2 36.0-48.0 [facility] CenterRvpwnncBTLCKUHWSG6417-27-39 08:34:00 Test Item Value Reference Range Interpretation Comments MCV (test code = MCV) 81.0 80.0-98.0 [facility] CenterNbhhtrsTTADWXMEAS6768-69-77 08:34:00 Test Item Value Reference Range Interpretation Comments MCH (test code = MCH) 26.3 pg 27.0-31.0 [facility] CenterLtnocslTYPRWCECSS6805-86-30 08:34:00 Test Item Value Reference Range Interpretation Comments Basophils # (test code 0.1 See_Comment [Aut omated message] The = Basophils #) system which generated this result tra nsmitted reference range : <=0.2. The reference r eric was not used to int erpret this result as normal/abnormal . [facility] CenterNplxoimSKIOURMIOF8555-27-24 08:34:00 Test Item Value Reference Range Interpretation Comments Segs (test code = Segs) 65.9 45.0-75.0 [facility] CenterAzdrlvvJGYMWDCHXO4886-76-77 08:34:00 Test Item Value Reference Range Interpretation Comments Lymphocytes (test code = Lymphocytes) 26.0 20.0-40.0 [facility] CenterQmzieubUTMGDQIJWL2980-67-12 08:34:00 Test Item Value Reference Range Interpretation Comments Eosinophils (test code = 1.4 See_Comment [A utomated message] The Eosinophils) system which ge nerated this result tra nsmitted reference range : <=4.0. The reference r eric was not used to int erpret this result as normal/abnormal . [facility] CenterXpaoaroZPQSTKNMWF4544-56-28 08:34:00 Test Item Value Reference Range Interpretation Comments Monocytes (test code = Monocytes) 6.1 2.0-12.0 [facility] CenterQrhfawpLQYYWTWXQR3961-05-92 08:34:00 Test Item Value Reference Range Interpretation Comments Basophils (test code = 0.6 See_Comment [Aut omated message] The Basophils) system which ge nerated this result tra nsmitted reference range : <=1.0. The reference r eric was not used to int erpret this result as normal/abnormal . [facility] CenterUihwlykOLZYGJBTBF6625-67-24 08:34:00 Test Item Value Reference Range Interpretation Comments Eosinophils # (test code 0.2 See_Comment [A utomated message] The = Eosinophils #) system whic h generated this result tra nsmitted reference range : <=0.5. The reference r eric was not used to int erpret this result as normal/abnormal . [facility] CenterZrthsqhNXTICSMHUS3798-75-55 08:34:00 Test Item Value Reference Range Interpretation Comments Monocytes # (test code 0.7 See_Comment [Aut omated message] The = Monocytes #) system which generated this result tra nsmitted reference range : <=0.8. The reference r eric was not used to int erpret this result as normal/abnormal . [facility] CenterMkxfwdkZPGUMXWETL6231-58-22 08:34:00 Test Item Value Reference Range Interpretation Comments Lymphocytes # (test code = Lymphocytes 2.8 1.0-5.5 #) [facility] CenterHcqdobpDWOICBVCEA1153-28-52 08:34:00 Test Item Value Reference Range Interpretation Comments Segs-Bands # (test code = Segs-Bands #) 7.0 1.5-8.1 [facility] [id number] 08:34:00 Test Item Value Reference Range Interpretation Comments Troponin-I (test code no gt See_Comment [Auto mated message] The = Troponin-I) system which g enerated this result transmit thelma reference range : <=0.40. The reference r eric was not used to interpr et this result as zana l/abnormal. [facility] [id number] 08:34:00 Test Item Value Reference Range Interpretation Comments CK MB (test code = CK MB) 1.9 0.5-3.6 [facility] Falls[facility] [id number] 08:34:00 Test Item Value Reference Range Interpretation Comments Total CK (test code = Total CK) 82 12-191 [facility] [id number] 08:34:00 Test Item Value Reference Range Interpretation Comments CK MB Index (test 2.3 See_Comment [Automate d message] The code = CK MB Index) system w [facility] generated this result transmit thelma reference range : <=2.5. The reference range was not used to interpr et this result as zana l/abnormal. [facility] [employer]2015-09-26 08:34:00 Test Item Value Reference Range Interpretation Comments Ammonia (test code = Ammonia) 13.0 [facility] [employer] [id number] 08:34:00 Test Item Value Reference Range Interpretation Comments eGFR (test code = eGFR) 65 [facility] [employer] [id number] 08:34:00 Test Item Value Reference Range Interpretation Comments ALT (test code = ALT) 20 See_Comment [Auto mated message] The system which ge nerated this result transmit thelma reference range : <=65. The reference range was not used to interpr et this result as zana l/abnormal. [facility] [employer]2015-09-26 08:34:00 Test Item Value Reference Range Interpretation Comments AST (test code = AST) 13 See_Comment [Auto mated message] The system which ge nerated this result transmit thelma reference range : <=37. The reference range was not used to interpr et this result as zana l/abnormal. [facility] [employer]2015-09-26 08:34:00 Test Item Value Reference Range Interpretation Comments Bili Total (test code = Bili Total) 0.6 0.2-1.3 [facility] [employer]2015-09-26 08:34:00 Test Item Value Reference Range Interpretation Comments AGAP (test code = AGAP) 10.9 10.0-20.0 [facility] FallsRock [facility] [id number] 08:34:00 Test Item Value Reference Range Interpretation Comments Alk Phos (test code = Alk Phos) 47 39-136 [facility] [employer]2015-09-26 08:34:00 Test Item Value Reference Range Interpretation Comments A/G Ratio (test code = A/G Ratio) 1.2 0.7-1.6 [facility]2015-09-26 08:34:00 Test Item Value Reference Range Interpretation Comments Globulin (test code = Globulin) 3.4 2.0-4.0 [facility]2015-09-26 08:34:00 Test Item Value Reference Range Interpretation Comments B/C Ratio (test code = B/C Ratio) 22 6- [facility]2015-09-26 08:34:00 Test Item Value Reference Range Interpretation Comments Potassium Lvl (test code = Potassium 3.9 3.5-5.1 Lvl) [facility]2015-09-26 08:34:00 Test Item Value Reference Range Interpretation Comments CO2 (test code = CO2) 28 -32 [facility]2015-09-26 08:34:00 Test Item Value Reference Range Interpretation Comments Chloride Lvl (test code = Chloride Lvl) 101 95-109 [facility]2015-09-26 08:34:00 Test Item Value Reference Range Interpretation Comments Calcium Lvl (test code = Calcium Lvl) 9.1 8.5-10.5 [facility]2015-09-26 08:34:00 Test Item Value Reference Range Interpretation Comments Total Protein (test code = Total 7.4 6.4-8.4 Protein) [facility]2015-09-26 08:34:00 Test Item Value Reference Range Interpretation Comments Albumin Lvl (test code = Albumin Lvl) 4.0 3.5-5.0 [facility]2015-09-26 08:34:00 Test Item Value Reference Range Interpretation Comments Glucose Lvl (test code = Glucose Lvl) 150 70-99 [facility]2015-09-26 08:34:00 Test Item Value Reference Range Interpretation Comments BUN (test code = BUN) 20 7- [facility]2015-09-26 08:34:00 Test Item Value Reference Range Interpretation Comments Creatinine Lvl (test code = Creatinine 0.9 0.5-1.4 Lvl) [facility]2015-09-26 08:34:00 Test Item Value Reference Range Interpretation Comments Sodium Lvl (test code = Sodium Lvl) 136 135-145 [facility]2015-09-26 08:34:00 Test Item Value Reference Range Interpretation Comments Magnesium Lvl (test code = Magnesium 1.8 1.8-2.4 Lvl) [facility] CenterHoiuodlWHWHTIYDNS5353-94-37 08:34:00 Test Item Value Reference Range Interpretation Comments PTT (test code = PTT) 26.7 s 22.9-35.8 [facility] CenterXdmallhMTQCWTVHQN3585-94-59 08:34:00 Test Item Value Reference Range Interpretation Comments PT (test code = PT) 12.8 s 12.0-14.7 [facility] CenterCvcovbmEMZJSFTXLV1494-99-94 08:34:00 Test Item Value Reference Range Interpretation Comments INR (test code = INR) 0.93 0.85-1.17 [facility] CenterYfpbnpbBVEHASIZED1543-16-65 08:34:00 Test Item Value Reference Range Interpretation Comments Platelet (test code = Platelet) 281 923-450 [facility] CenterEgixqtfTGBNBHSDTQ2733-64-25 08:34:00 Test Item Value Reference Range Interpretation Comments MPV (test code = MPV) 9.5 7.4-10.4 [facility] CenterGpaaabsMMKOFUMTMA8207-90-40 08:34:00 Test Item Value Reference Range Interpretation Comments RDW (test code = RDW) 14.8 11.5-14.5 [facility] CenterQqzecwvRZGZHPWWWF6251-62-00 08:34:00 Test Item Value Reference Range Interpretation Comments MCHC (test code = MCHC) 32.5 32.0-36.0 [facility] CenterDvzqztqZIMQRKOOYV4380-66-08 08:34:00 Test Item Value Reference Range Interpretation Comments RBC (test code = RBC) 5.21 4.20-5.40 [facility] CenterMdlwijtXBMMOIHPHH5951-55-96 08:34:00 Test Item Value Reference Range Interpretation Comments Hgb (test code = Hgb) 13.7 12.0-16.0 [facility] CenterRtxjchiKZUCXQDNWU7309-24-00 08:34:00 Test Item Value Reference Range Interpretation Comments WBC (test code = WBC) 10.6 3.7-10.4 [facility] CenterLblidxnOHHEFRXMJI6982-62-70 08:34:00 Test Item Value Reference Range Interpretation Comments Hct (test code = Hct) 42.2 36.0-48.0 [facility] CenterGgjmzvzNZYUPAHVVT5158-83-12 08:34:00 Test Item Value Reference Range Interpretation Comments MCV (test code = MCV) 81.0 80.0-98.0 [facility] CenterOvuthkfHYNGQKMTIH2517-30-46 08:34:00 Test Item Value Reference Range Interpretation Comments MCH (test code = MCH) 26.3 pg 27.0-31.0 [facility] CenterKhgwsdmWMQYHPHOKO2832-26-56 08:34:00 Test Item Value Reference Range Interpretation Comments Basophils # (test code 0.1 See_Comment [Aut omated message] The = Basophils #) system which generated this result tra nsmitted reference range : <=0.2. The reference r eric was not used to int erpret this result as normal/abnormal . [facility] CenterBdsclafODJWZUIRNY1284-26-95 08:34:00 Test Item Value Reference Range Interpretation Comments Segs (test code = Segs) 65.9 45.0-75.0 [facility] CenterLoppbfzTEHGGOPLZX1212-79-88 08:34:00 Test Item Value Reference Range Interpretation Comments Lymphocytes (test code = Lymphocytes) 26.0 20.0-40.0 [facility] CenterKoqgvsgIYLTSBBGQR5237-10-59 08:34:00 Test Item Value Reference Range Interpretation Comments Eosinophils (test code = 1.4 See_Comment [A utomated message] The Eosinophils) system which ge nerated this result tra nsmitted reference range : <=4.0. The reference r eric was not used to int erpret this result as normal/abnormal . [facility] CenterKncafhfPYFHZDHSAF3129-26-04 08:34:00 Test Item Value Reference Range Interpretation Comments Monocytes (test code = Monocytes) 6.1 2.0-12.0 [facility] CenterKoebiluJFHUDIUXOW7189-40-29 08:34:00 Test Item Value Reference Range Interpretation Comments Basophils (test code = 0.6 See_Comment [Aut omated message] The Basophils) system which ge nerated this result tra nsmitted reference range : <=1.0. The reference r eric was not used to int erpret this result as normal/abnormal . [facility] CenterGjmmdurCEHATZTJFC4726-70-11 08:34:00 Test Item Value Reference Range Interpretation Comments Eosinophils # (test code 0.2 See_Comment [A utomated message] The = Eosinophils #) system whic h generated this result tra nsmitted reference range : <=0.5. The reference r eric was not used to int erpret this result as normal/abnormal . [facility] CenterFvqygliRAJNZDIRMI4140-36-89 08:34:00 Test Item Value Reference Range Interpretation Comments Monocytes # (test code 0.7 See_Comment [Aut omated message] The = Monocytes #) system which generated this result tra nsmitted reference range : <=0.8. The reference r eric was not used to int erpret this result as normal/abnormal . [facility] CenterXoqbojoDGPIMOWUGB4924-54-24 08:34:00 Test Item Value Reference Range Interpretation Comments Lymphocytes # (test code = Lymphocytes 2.8 1.0-5.5 #) [facility] CenterWkatgaiEJMTJNEDDK5744-31-53 08:34:00 Test Item Value Reference Range Interpretation Comments Segs-Bands # (test code = Segs-Bands #) 7.0 1.5-8.1 [facility] AND [id number] 04:51:00 Test Item Value Reference Range Interpretation Comments UA Hyal Cast (test 1 See_Comment [Automat ed message] The code = UA Hyal Cast) system which generated this result transmit thelma reference range : <=2. The reference range was not used to interpr et this result as zana l/abnormal. [facility] AND [id number] 04:51:00 Test Item Value Reference Range Interpretation Comments UA RBC (test code = 1 See_Comment [Automa thelma message] The UA RBC) system which ge nerated this result transmit thelma reference range : <=2. The reference range was not used to interpr et this result as zana l/abnormal. [facility] AND [id number] 04:51:00 Test Item Value Reference Range Interpretation Comments UA Leuk Est (test Negative (04/05/15 11:51 code = UA Leuk Est) PM) [facility] AND [id number] 04:51:00 Test Item Value Reference Range Interpretation Comments UA Sq Epi (test code = UA Sq Occasional /LPF Epi) [facility] AND [id number] 04:51:00 Test Item Value Reference Range Interpretation Comments UA WBC (test code = 2 See_Comment [Automa thelma message] The UA WBC) system which ge nerated this result transmit thelma reference range : <=5. The reference range was not used to interpr et this result as zana l/abnormal. [facility] AND [id number] 04:51:00 Test Item Value Reference Range Interpretation Comments UA Urobilinogen (test code = UA <=1.0 mg/dL 0.1-1.0 Urobilinogen) [facility] AND [id number] 04:51:00 Test Item Value Reference Range Interpretation Comments UA Protein (test code = UA Negative mg/dL Protein) [facility] AND [id number] 04:51:00 Test Item Value Reference Range Interpretation Comments UA Glucose (test code = UA Negative mg/dL Glucose) [facility] AND [id number] 04:51:00 Test Item Value Reference Range Interpretation Comments UA Ketones (test code = UA Negative mg/dL Ketones) [facility] AND [id number] 04:51:00 Test Item Value Reference Range Interpretation Comments UA Bili (test code = Negative *NA*(04/05/15 UA Bili) 11:51 PM) [facility] AND [id number] 04:51:00 Test Item Value Reference Range Interpretation Comments UA pH (test code = UA pH) 6.0 5.0-8.0 [facility] AND [id number] 04:51:00 Test Item Value Reference Range Interpretation Comments UA Turbidity (test code = Clear (04/05/15 11:51 UA Turbidity) PM) [facility] AND [id number] 04:51:00 Test Item Value Reference Range Interpretation Comments UA Spec Grav (test code = UA Spec Grav) 1.006 [facility] AND [id number] 04:51:00 Test Item Value Reference Range Interpretation Comments UA Color (test code = Light Yellow UA Color) *NA*(04/05/15 11:51 PM) [facility] AND [id number] 04:51:00 Test Item Value Reference Range Interpretation Comments UA Blood (test code = Negative (04/05/15 11:51 UA Blood) PM) [facility] AND [id number] 04:51:00 Test Item Value Reference Range Interpretation Comments UA Nitrite (test code Negative (04/05/15 11:51 = UA Nitrite) PM) [facility] AND [id number] 04:51:00 Test Item Value Reference Range Interpretation Comments UA Hyal Cast (test 1 See_Comment [Automat ed message] The code = UA Hyal Cast) system which generated this result transmit thelma reference range : <=2. The reference range was not used to interpr et this result as zana l/abnormal. [facility] AND [id number] 04:51:00 Test Item Value Reference Range Interpretation Comments UA RBC (test code = 1 See_Comment [Automa thelma message] The UA RBC) system which ge nerated this result transmit thelma reference range : <=2. The reference range was not used to interpr et this result as zana l/abnormal. [facility] AND [id number] 04:51:00 Test Item Value Reference Range Interpretation Comments UA Leuk Est (test Negative (04/05/15 11:51 code = UA Leuk Est) PM) [facility] AND [id number] 04:51:00 Test Item Value Reference Range Interpretation Comments UA Sq Epi (test code = UA Sq Occasional /LPF Epi) [facility] AND [id number] 04:51:00 Test Item Value Reference Range Interpretation Comments UA WBC (test code = 2 See_Comment [Automa thelma message] The UA WBC) system which ge nerated this result transmit thelma reference range : <=5. The reference range was not used to interpr et this result as zana l/abnormal. [facility] AND [id number] 04:51:00 Test Item Value Reference Range Interpretation Comments UA Urobilinogen (test code = UA <=1.0 mg/dL 0.1-1.0 Urobilinogen) [facility] AND [id number] 04:51:00 Test Item Value Reference Range Interpretation Comments UA Protein (test code = UA Negative mg/dL Protein) [facility] AND [id number] 04:51:00 Test Item Value Reference Range Interpretation Comments UA Glucose (test code = UA Negative mg/dL Glucose) [facility] AND [id number] 04:51:00 Test Item Value Reference Range Interpretation Comments UA Ketones (test code = UA Negative mg/dL Ketones) [facility] AND [id number] 04:51:00 Test Item Value Reference Range Interpretation Comments UA Bili (test code = Negative *NA*(04/05/15 UA Bili) 11:51 PM) [facility] [id number] 04:51:00 Test Item Value Reference Range Interpretation Comments UA pH (test code = UA pH) 6.0 5.0-8.0 [facility] [id number] 04:51:00 Test Item Value Reference Range Interpretation Comments UA Turbidity (test code = Clear (04/05/15 11:51 UA Turbidity) PM) [facility] [id number] 04:51:00 Test Item Value Reference Range Interpretation Comments UA Spec Grav (test code = UA Spec Grav) 1.006 [facility] [id number] 04:51:00 Test Item Value Reference Range Interpretation Comments UA Color (test code = Light Yellow UA Color) *NA*(04/05/15 11:51 PM) [facility] [id number] 04:51:00 Test Item Value Reference Range Interpretation Comments UA Blood (test code = Negative (04/05/15 11:51 UA Blood) PM) [facility] [id number] 04:51:00 Test Item Value Reference Range Interpretation Comments UA Nitrite (test code Negative (04/05/15 11:51 = UA Nitrite) PM) [facility]CARD[facility] [id number] 02:44:00 Test Item Value Reference Range Interpretation Comments CK MB (test code = CK MB) 1.8 0.5-3.6 [facility] FallsannCARDIAC [id number] 02:44:00 Test Item Value Reference Range Interpretation Comments Total CK (test code = Total CK) 109 12-191 [facility] [id number] 02:44:00 Test Item Value Reference Range Interpretation Comments Troponin-I (test code 0.02 See_Comment [Auto mated message] The = Troponin-I) system which g enerated this result transmit thelma reference range : <=0.40. The reference r eric was not used to interpr et this result as zana l/abnormal. [facility] [id number] 02:44:00 Test Item Value Reference Range Interpretation Comments CK MB Index (test 1.7 See_Comment [Automate d message] The code = CK MB Index) system w [facility] generated this result transmit thelma reference range : <=2.5. The reference range was not used to interpr et this result as zana l/abnormal. [facility]2015-07-24 02:44:00 Test Item Value Reference Range Interpretation Comments eGFR (test code = eGFR) 58 [facility]2015-07-24 02:44:00 Test Item Value Reference Range Interpretation Comments Bili Total (test code = Bili Total) 0.3 0.2-1.3 [facility]2015-07-24 02:44:00 Test Item Value Reference Range Interpretation Comments Alk Phos (test code = Alk Phos) 58 39-136 [facility]2015-07-24 02:44:00 Test Item Value Reference Range Interpretation Comments Albumin Lvl (test code = Albumin Lvl) 3.8 3.5-5.0 [facility]2015-07-24 02:44:00 Test Item Value Reference Range Interpretation Comments AST (test code = AST) 19 See_Comment [Auto mated message] The system which ge nerated this result transmit thelma reference range : <=37. The reference range was not used to interpr et this result as zana l/abnormal. [facility]2015-07-24 02:44:00 Test Item Value Reference Range Interpretation Comments Chloride Lvl (test code = Chloride Lvl) 106 95-109 [facility]2015-07-24 02:44:00 Test Item Value Reference Range Interpretation Comments Total Protein (test code = Total 7.8 6.4-8.4 Protein) [facility]2015-07-24 02:44:00 Test Item Value Reference Range Interpretation Comments CO2 (test code = CO2) 29 24-32 [facility]2015-07-24 02:44:00 Test Item Value Reference Range Interpretation Comments Calcium Lvl (test code = Calcium Lvl) 9.8 8.5-10.5 [facility]2015-07-24 02:44:00 Test Item Value Reference Range Interpretation Comments Potassium Lvl (test code = Potassium 4.7 3.5-5.1 Lvl) [facility]2015-07-24 02:44:00 Test Item Value Reference Range Interpretation Comments Glucose Lvl (test code = Glucose Lvl) 179 70-99 [facility]2015-07-24 02:44:00 Test Item Value Reference Range Interpretation Comments Sodium Lvl (test code = Sodium Lvl) 142 135-145 [facility]2015-07-24 02:44:00 Test Item Value Reference Range Interpretation Comments ALT (test code = ALT) 21 See_Comment [Auto mated message] The system which ge nerated this result transmit thelma reference range : <=65. The reference range was not used to interpr et this result as zana l/abnormal. [facility]2015-07-24 02:44:00 Test Item Value Reference Range Interpretation Comments BUN (test code = BUN) 16 7-22 [facility]2015-07-24 02:44:00 Test Item Value Reference Range Interpretation Comments Creatinine Lvl (test code = Creatinine 1.0 0.5-1.4 Lvl) [facility]2015-07-24 02:44:00 Test Item Value Reference Range Interpretation Comments A/G Ratio (test code = A/G Ratio) 1.0 0.7-1.6 [facility]2015-07-24 02:44:00 Test Item Value Reference Range Interpretation Comments B/C Ratio (test code = B/C Ratio) 16 6-25 [facility]2015-07-24 02:44:00 Test Item Value Reference Range Interpretation Comments Globulin (test code = Globulin) 4.0 2.0-4.0 [facility]2015-07-24 02:44:00 Test Item Value Reference Range Interpretation Comments AGAP (test code = AGAP) 11.7 10.0-20.0 [facility] [id number] 02:44:00 Test Item Value Reference Range Interpretation Comments Basophils # (test code 0.0 See_Comment [Aut omated message] The = Basophils #) system which generated this result tra nsmitted reference range : <=0.2. The reference r eric was not used to int erpret this result as normal/abnormal . [facility] CenterVxudxwiLTSBVQPSGL9908-29-34 02:44:00 Test Item Value Reference Range Interpretation Comments Eosinophils # (test code 0.4 See_Comment [A utomated message] The = Eosinophils #) system whic h generated this result tra nsmitted reference range : <=0.5. The reference r eric was not used to int erpret this result as normal/abnormal . [facility] CenterYejsopmEJGCFZBHDO4753-69-46 02:44:00 Test Item Value Reference Range Interpretation Comments Segs-Bands # (test code = Segs-Bands #) 8.1 1.5-8.1 [facility] CenterIdurlhsIMGHVFIOWB5703-36-14 02:44:00 Test Item Value Reference Range Interpretation Comments Lymphocytes # (test code = Lymphocytes 1.6 1.0-5.5 #) [facility] CenterSikqkypUKGHVZFCYH1714-11-85 02:44:00 Test Item Value Reference Range Interpretation Comments Eosinophils (test code = 3.6 See_Comment [A utomated message] The Eosinophils) system which ge nerated this result tra nsmitted reference range : <=4.0. The reference r eric was not used to int erpret this result as normal/abnormal . [facility] CenterZzatvzyYUKZCHHSHO3303-07-42 02:44:00 Test Item Value Reference Range Interpretation Comments Basophils (test code = 0.4 See_Comment [Aut omated message] The Basophils) system which ge nerated this result tra nsmitted reference range : <=1.0. The reference r eric was not used to int erpret this result as normal/abnormal . [facility] CenterFadtlvmXJQPWKGYRM6514-07-62 02:44:00 Test Item Value Reference Range Interpretation Comments Monocytes # (test code 0.5 See_Comment [Aut omated message] The = Monocytes #) system which generated this result tra nsmitted reference range : <=0.8. The reference r eric was not used to int erpret this result as normal/abnormal . [facility] CenterIlwffwiQWSEVRAMRF1403-57-09 02:44:00 Test Item Value Reference Range Interpretation Comments Lymphocytes (test code = Lymphocytes) 15.3 20.0-40.0 [facility] CenterVtlqywlVAKCEQSQTB8754-47-54 02:44:00 Test Item Value Reference Range Interpretation Comments Segs (test code = Segs) 76.4 45.0-75.0 [facility] CenterRdwnyoqQISRAEWHID0640-76-86 02:44:00 Test Item Value Reference Range Interpretation Comments Monocytes (test code = Monocytes) 4.3 2.0-12.0 [facility] CenterNpsiyarNWZJBUMALM1794-26-87 02:44:00 Test Item Value Reference Range Interpretation Comments Hgb (test code = Hgb) 14.5 12.0-16.0 [facility] CenterNpdvgumRQYWMHXFEA9989-29-38 02:44:00 Test Item Value Reference Range Interpretation Comments MCH (test code = MCH) 26.4 pg 27.0-31.0 [facility] CenterZrlbhizNDKULNEEEH5181-15-34 02:44:00 Test Item Value Reference Range Interpretation Comments MCHC (test code = MCHC) 31.7 32.0-36.0 [facility] CenterCburiweNXNBSMWTBV0931-30-71 02:44:00 Test Item Value Reference Range Interpretation Comments MCV (test code = MCV) 83.4 80.0-98.0 [facility] CenterRuabqyuRWYYZCKGCF6745-04-90 02:44:00 Test Item Value Reference Range Interpretation Comments Hct (test code = Hct) 45.6 36.0-48.0 [facility] CenterBgetkjqQWSXIXVEPO3038-05-07 02:44:00 Test Item Value Reference Range Interpretation Comments RBC (test code = RBC) 5.47 4.20-5.40 [facility] CenterUewrougDZVVLCENWO2588-19-50 02:44:00 Test Item Value Reference Range Interpretation Comments WBC (test code = WBC) 10.6 3.7-10.4 [facility] CenterTkpglooNLPVNAWGZF5612-02-76 02:44:00 Test Item Value Reference Range Interpretation Comments RDW (test code = RDW) 13.9 11.5-14.5 [facility] CenterHnqeosmYABVOTVLCR9903-98-60 02:44:00 Test Item Value Reference Range Interpretation Comments MPV (test code = MPV) 9.3 7.4-10.4 [facility] CenterIjmfaaoPOUJANBVED6905-54-38 02:44:00 Test Item Value Reference Range Interpretation Comments Platelet (test code = Platelet) 267 133-450 [place] [id number] 02:44:00 Test Item Value Reference Range Interpretation Comments Acetaminoph Lvl (test code = no gt 10-20 Acetaminoph Lvl) [place] [id number] 02:44:00 Test Item Value Reference Range Interpretation Comments Salicylate Lvl (test 2.1 See_Comment [Autom ated message] The code = Salicylate Lvl) syste m which generated this result tra nsmitted reference range : <=30.0. The reference r eric was not used to int erpret this result as normal/abnormal . [facility] OhvxglfYBUYSNXZGH6653-95-00 02:44:00 Test Item Value Reference Range Interpretation Comments Etoh (%) (test code = Etoh (%)) no gt [facility] OourcqhDMTDDPNPBN9524-57-15 02:44:00 Test Item Value Reference Range Interpretation Comments Ethanol Lvl (test code = Ethanol Lvl) no gt [facility] MapMyIndiaannCARDIAC ZQNWASU6967-41-48 02:44:00 Test Item Value Reference Range Interpretation Comments CK MB (test code = CK MB) 1.8 0.5-3.6 [facility] MapMyIndiaannCARhurleypalmerflattAC VAKZDNW7744-90-06 02:44:00 Test Item Value Reference Range Interpretation Comments Total CK (test code = Total CK) 109 12-191 [facility] [employer]andid GZWSCWC6757-47-07 02:44:00 Test Item Value Reference Range Interpretation Comments Troponin-I (test code 0.02 See_Comment [Auto mated message] The = Troponin-I) system which g enerated this result transmit thelma reference range : <=0.40. The reference r eric was not used to interpr et this result as zana l/abnormal. [facility] UanbaiAC CURMAOP6229-24-87 02:44:00 Test Item Value Reference Range Interpretation Comments CK MB Index (test 1.7 See_Comment [Automate d message] The code = CK MB Index) system w [facility] generated this result transmit thelma reference range : <=2.5. The reference range was not used to interpr et this result as zana l/abnormal. [facility] LKUCA8536-21-65 02:44:00 Test Item Value Reference Range Interpretation Comments eGFR (test code = eGFR) 58 [facility] [employer] PWOQP4745-67-47 02:44:00 Test Item Value Reference Range Interpretation Comments Bili Total (test code = Bili Total) 0.3 0.2-1.3 [facility] [employer] TUTJT0063-80-44 02:44:00 Test Item Value Reference Range Interpretation Comments Alk Phos (test code = Alk Phos) 58 39-136 [facility]2015-07-24 02:44:00 Test Item Value Reference Range Interpretation Comments Albumin Lvl (test code = Albumin Lvl) 3.8 3.5-5.0 [facility]2015-07-24 02:44:00 Test Item Value Reference Range Interpretation Comments AST (test code = AST) 19 See_Comment [Auto mated message] The system which ge nerated this result transmit thelma reference range : <=37. The reference range was not used to interpr et this result as zana l/abnormal. [facility]2015-07-24 02:44:00 Test Item Value Reference Range Interpretation Comments Chloride Lvl (test code = Chloride Lvl) 106 95-109 [facility]2015-07-24 02:44:00 Test Item Value Reference Range Interpretation Comments Total Protein (test code = Total 7.8 6.4-8.4 Protein) [facility]2015-07-24 02:44:00 Test Item Value Reference Range Interpretation Comments CO2 (test code = CO2) 29 24-32 [facility]2015-07-24 02:44:00 Test Item Value Reference Range Interpretation Comments Calcium Lvl (test code = Calcium Lvl) 9.8 8.5-10.5 [facility]2015-07-24 02:44:00 Test Item Value Reference Range Interpretation Comments Potassium Lvl (test code = Potassium 4.7 3.5-5.1 Lvl) [facility]2015-07-24 02:44:00 Test Item Value Reference Range Interpretation Comments Glucose Lvl (test code = Glucose Lvl) 179 70-99 [facility]2015-07-24 02:44:00 Test Item Value Reference Range Interpretation Comments Sodium Lvl (test code = Sodium Lvl) 142 135-145 [facility]2015-07-24 02:44:00 Test Item Value Reference Range Interpretation Comments ALT (test code = ALT) 21 See_Comment [Auto mated message] The system which ge nerated this result transmit thelma reference range : <=65. The reference range was not used to interpr et this result as zana l/abnormal. [facility]2015-07-24 02:44:00 Test Item Value Reference Range Interpretation Comments BUN (test code = BUN) 16 7-22 [facility]2015-07-24 02:44:00 Test Item Value Reference Range Interpretation Comments Creatinine Lvl (test code = Creatinine 1.0 0.5-1.4 Lvl) [facility]2015-07-24 02:44:00 Test Item Value Reference Range Interpretation Comments A/G Ratio (test code = A/G Ratio) 1.0 0.7-1.6 [facility]2015-07-24 02:44:00 Test Item Value Reference Range Interpretation Comments B/C Ratio (test code = B/C Ratio) 16 03-08 [facility]2015-07-24 02:44:00 Test Item Value Reference Range Interpretation Comments Globulin (test code = Globulin) 4.0 2.0-4.0 [facility]2015-07-24 02:44:00 Test Item Value Reference Range Interpretation Comments AGAP (test code = AGAP) 11.7 10.0-20.0 [facility] CenterXsukzwrCAHDTCJXAN6130-77-50 02:44:00 Test Item Value Reference Range Interpretation Comments Basophils # (test code 0.0 See_Comment [Aut omated message] The = Basophils #) system which generated this result tra nsmitted reference range : <=0.2. The reference r eric was not used to int erpret this result as normal/abnormal . [facility] CenterEjkmrbaDMZNIBLDXM1225-01-58 02:44:00 Test Item Value Reference Range Interpretation Comments Eosinophils # (test code 0.4 See_Comment [A utomated message] The = Eosinophils #) system whic h generated this result tra nsmitted reference range : <=0.5. The reference r eric was not used to int erpret this result as normal/abnormal . [facility] CenterOkcdqwzSBOMUFUEJY6738-00-90 02:44:00 Test Item Value Reference Range Interpretation Comments Segs-Bands # (test code = Segs-Bands #) 8.1 1.5-8.1 [facility] CenterJjtzdoePTLLSODBQR5007-18-38 02:44:00 Test Item Value Reference Range Interpretation Comments Lymphocytes # (test code = Lymphocytes 1.6 1.0-5.5 #) [facility] CenterOwjfltcBCOTLWYFLZ4491-10-49 02:44:00 Test Item Value Reference Range Interpretation Comments Eosinophils (test code = 3.6 See_Comment [A utomated message] The Eosinophils) system which ge nerated this result tra nsmitted reference range : <=4.0. The reference r eric was not used to int erpret this result as normal/abnormal . [facility] CenterOtdlqvkCKXWZOZAIZ5337-53-02 02:44:00 Test Item Value Reference Range Interpretation Comments Basophils (test code = 0.4 See_Comment [Aut omated message] The Basophils) system which ge nerated this result tra nsmitted reference range : <=1.0. The reference r eric was not used to int erpret this result as normal/abnormal . [facility] CenterShcdgoiRQWEZUWSZG2725-49-21 02:44:00 Test Item Value Reference Range Interpretation Comments Monocytes # (test code 0.5 See_Comment [Aut omated message] The = Monocytes #) system which generated this result tra nsmitted reference range : <=0.8. The reference r eric was not used to int erpret this result as normal/abnormal . [facility] CenterUzpwdffQLBXBETRUO5366-21-32 02:44:00 Test Item Value Reference Range Interpretation Comments Lymphocytes (test code = Lymphocytes) 15.3 20.0-40.0 [facility] CenterEtwvpnnGCOXUQUIRR3196-17-46 02:44:00 Test Item Value Reference Range Interpretation Comments Segs (test code = Segs) 76.4 45.0-75.0 [facility] CenterPmbcllrWOWCUYCGLT5868-85-42 02:44:00 Test Item Value Reference Range Interpretation Comments Monocytes (test code = Monocytes) 4.3 2.0-12.0 [facility] CenterSvlrdjjMYXHMSIFMO0045-59-48 02:44:00 Test Item Value Reference Range Interpretation Comments Hgb (test code = Hgb) 14.5 12.0-16.0 [facility] CenterGbwewanZWUIRZWQHU7692-08-78 02:44:00 Test Item Value Reference Range Interpretation Comments MCH (test code = MCH) 26.4 pg 27.0-31.0 [facility] CenterZdzqqecQGHTMGZJQK2308-62-18 02:44:00 Test Item Value Reference Range Interpretation Comments MCHC (test code = MCHC) 31.7 32.0-36.0 [facility] CenterWvgbqglSXCAGWKHVG7908-69-06 02:44:00 Test Item Value Reference Range Interpretation Comments MCV (test code = MCV) 83.4 80.0-98.0 [facility] CenterEqdewvaUMRSZLGWTC1778-10-39 02:44:00 Test Item Value Reference Range Interpretation Comments Hct (test code = Hct) 45.6 36.0-48.0 [facility] CenterFoagqqwASMNHRZEZB9831-63-69 02:44:00 Test Item Value Reference Range Interpretation Comments RBC (test code = RBC) 5.47 4.20-5.40 [facility] CenterNaixssqWWOBSVRDWQ1569-07-16 02:44:00 Test Item Value Reference Range Interpretation Comments WBC (test code = WBC) 10.6 3.7-10.4 [facility] CenterXlbylwvXQVGJGFUWS7298-53-67 02:44:00 Test Item Value Reference Range Interpretation Comments RDW (test code = RDW) 13.9 11.5-14.5 [facility] CenterTzzrwccJPKBFDFVNF3906-46-08 02:44:00 Test Item Value Reference Range Interpretation Comments MPV (test code = MPV) 9.3 7.4-10.4 [facility] CenterOpfomjoKPKTVAYAWM0548-11-56 02:44:00 Test Item Value Reference Range Interpretation Comments Platelet (test code = Platelet) 267 133-450 [place] 17951015-07-24 02:44:00 Test Item Value Reference Range Interpretation Comments Acetaminoph Lvl (test code = no gt 10-20 Acetaminoph Lvl) [place] 17951015-07-24 02:44:00 Test Item Value Reference Range Interpretation Comments Salicylate Lvl (test 2.1 See_Comment [Autom ated message] The code = Salicylate Lvl) syste m which generated this result tra nsmitted reference range : <=30.0. The reference r eric was not used to int erpret this result as normal/abnormal . [place] 17951015-07-24 02:44:00 Test Item Value Reference Range Interpretation Comments Etoh (%) (test code = Etoh (%)) no gt [place] 17951015-07-24 02:44:00 Test Item Value Reference Range Interpretation Comments Ethanol Lvl (test code = Ethanol Lvl) no gt [facility]2014-08-03 20:50:00 Test Item Value Reference Range Interpretation Comments Magnesium Lvl (test code = Magnesium 1.5 1.8-2.4 Lvl) [facility]2014-08-03 20:50:00 Test Item Value Reference Range Interpretation Comments Phosphorus (test code = Phosphorus) 3.5 2.5-4.5 [facility]2014-08-03 20:50:00 Test Item Value Reference Range Interpretation Comments eGFR (test code = eGFR) 47 [facility]2014-08-03 20:50:00 Test Item Value Reference Range Interpretation Comments Chloride Lvl (test code = Chloride Lvl) 100 95-109 [facility]2014-08-03 20:50:00 Test Item Value Reference Range Interpretation Comments Sodium Lvl (test code = Sodium Lvl) 135 135-145 [facility]2014-08-03 20:50:00 Test Item Value Reference Range Interpretation Comments Potassium Lvl (test code = Potassium 4.9 3.5-5.1 Lvl) [facility]2014-08-03 20:50:00 Test Item Value Reference Range Interpretation Comments Glucose Lvl (test code = Glucose Lvl) 240 70-99 [facility]2014-08-03 20:50:00 Test Item Value Reference Range Interpretation Comments BUN (test code = BUN) 25 7-22 [facility]2014-08-03 20:50:00 Test Item Value Reference Range Interpretation Comments CO2 (test code = CO2) 29 24-32 [facility]2014-08-03 20:50:00 Test Item Value Reference Range Interpretation Comments AGAP (test code = AGAP) 10.9 10.0-20.0 [facility]2014-08-03 20:50:00 Test Item Value Reference Range Interpretation Comments Creatinine Lvl (test code = Creatinine 1.2 0.5-1.4 Lvl) [facility]2014-08-03 20:50:00 Test Item Value Reference Range Interpretation Comments Calcium Lvl (test code = Calcium Lvl) 9.3 8.5-10.5 [facility] CenterZlkqhwyRPZBXBFHQM6965-31-79 20:50:00 Test Item Value Reference Range Interpretation Comments MPV (test code = MPV) 9.6 7.4-10.4 [facility] CenterBpdvegbVYQRRANZPM4875-45-20 20:50:00 Test Item Value Reference Range Interpretation Comments WBC (test code = WBC) 9.7 3.7-10.4 [facility] CenterIapplasNVBNZVAZAI9253-78-39 20:50:00 Test Item Value Reference Range Interpretation Comments RDW (test code = RDW) 13.8 11.5-14.5 [facility] CenterNpcgelyNVOJUVWXZD2718-19-81 20:50:00 Test Item Value Reference Range Interpretation Comments MCHC (test code = MCHC) 32.9 32.0-36.0 [facility] CenterSsctaycFSFENQEIQV8420-10-07 20:50:00 Test Item Value Reference Range Interpretation Comments RBC (test code = RBC) 4.95 4.20-5.40 [facility] CenterXeevbwnZUMICHMNAL9447-22-22 20:50:00 Test Item Value Reference Range Interpretation Comments MCV (test code = MCV) 82.4 81.0-99.0 [facility] CenterNwzrjqhWIXEQGITMC5114-21-94 20:50:00 Test Item Value Reference Range Interpretation Comments Hgb (test code = Hgb) 13.4 12.0-16.0 [facility] CenterNxgspieUXLLGBVGOH5474-20-99 20:50:00 Test Item Value Reference Range Interpretation Comments Platelet (test code = Platelet) 275 133-450 [facility] CenterEfvdrigRYJJIJGHQD0986-09-99 20:50:00 Test Item Value Reference Range Interpretation Comments Hct (test code = Hct) 40.8 36.0-48.0 [facility] CenterSovhplwWCULGQTOSV2984-14-87 20:50:00 Test Item Value Reference Range Interpretation Comments MCH (test code = MCH) 27.1 pg 27.0-31.0 [facility] CenterXcwdemkHPVRAWKQOJ7907-44-08 20:50:00 Test Item Value Reference Range Interpretation Comments Monocytes # (test code 0.3 See_Comment [Aut omated message] The = Monocytes #) system which generated this result tra nsmitted reference range : <=0.8. The reference r eric was not used to int erpret this result as normal/abnormal . [facility] CenterXmlhkxpCSSYEXSQWC7080-54-52 20:50:00 Test Item Value Reference Range Interpretation Comments Basophils # (test code 0.0 See_Comment [Aut omated message] The = Basophils #) system which generated this result tra nsmitted reference range : <=0.2. The reference r eric was not used to int erpret this result as normal/abnormal . [facility] CenterDzbpvsjMXXLIXLNYJ4934-69-02 20:50:00 Test Item Value Reference Range Interpretation Comments Eosinophils # (test code 0.0 See_Comment [A utomated message] The = Eosinophils #) system whic h generated this result tra nsmitted reference range : <=0.5. The reference r eric was not used to int erpret this result as normal/abnormal . [facility] CenterPcxxiyyTEDLJGRYPU3805-53-50 20:50:00 Test Item Value Reference Range Interpretation Comments Segs-Bands # (test code = Segs-Bands #) 8.7 1.5-8.1 [facility] CenterZjczhfxGLRSOIQIAG9269-09-19 20:50:00 Test Item Value Reference Range Interpretation Comments Lymphocytes # (test code = Lymphocytes 0.8 1.0-5.5 #) [facility] CenterWcmnxrcYFAHACGNSI2534-79-19 20:50:00 Test Item Value Reference Range Interpretation Comments Eosinophils (test code = 0.0 See_Comment [A utomated message] The Eosinophils) system which ge nerated this result tra nsmitted reference range : <=4.0. The reference r eric was not used to int erpret this result as normal/abnormal . [facility] CenterKozdkheMZGMSOYTVP1187-17-45 20:50:00 Test Item Value Reference Range Interpretation Comments Basophils (test code = 0.2 See_Comment [Aut omated message] The Basophils) system which ge nerated this result tra nsmitted reference range : <=1.0. The reference r eric was not used to int erpret this result as normal/abnormal . [facility] CenterKihefxbZKPXBDDIGH4767-93-09 20:50:00 Test Item Value Reference Range Interpretation Comments Monocytes (test code = Monocytes) 2.7 2.0-12.0 [facility] CenterOfrbkvoPAZOFHRIXS8056-43-20 20:50:00 Test Item Value Reference Range Interpretation Comments Lymphocytes (test code = Lymphocytes) 8.1 20.0-40.0 [facility] CenterHcumwpyMKBSQPBBFV3019-21-00 20:50:00 Test Item Value Reference Range Interpretation Comments Segs (test code = Segs) 89.0 45.0-75.0 [facility]2014-08-03 20:50:00 Test Item Value Reference Range Interpretation Comments Magnesium Lvl (test code = Magnesium 1.5 1.8-2.4 Lvl) [facility]2014-08-03 20:50:00 Test Item Value Reference Range Interpretation Comments Phosphorus (test code = Phosphorus) 3.5 2.5-4.5 [facility]2014-08-03 20:50:00 Test Item Value Reference Range Interpretation Comments eGFR (test code = eGFR) 47 [facility]2014-08-03 20:50:00 Test Item Value Reference Range Interpretation Comments Chloride Lvl (test code = Chloride Lvl) 100 95-109 [facility]2014-08-03 20:50:00 Test Item Value Reference Range Interpretation Comments Sodium Lvl (test code = Sodium Lvl) 135 135-145 [facility]2014-08-03 20:50:00 Test Item Value Reference Range Interpretation Comments Potassium Lvl (test code = Potassium 4.9 3.5-5.1 Lvl) [facility]2014-08-03 20:50:00 Test Item Value Reference Range Interpretation Comments Glucose Lvl (test code = Glucose Lvl) 240 70-99 [facility]2014-08-03 20:50:00 Test Item Value Reference Range Interpretation Comments BUN (test code = BUN) 25 7-22 [facility]2014-08-03 20:50:00 Test Item Value Reference Range Interpretation Comments CO2 (test code = CO2) 29 24-32 [facility]2014-08-03 20:50:00 Test Item Value Reference Range Interpretation Comments AGAP (test code = AGAP) 10.9 10.0-20.0 [facility]2014-08-03 20:50:00 Test Item Value Reference Range Interpretation Comments Creatinine Lvl (test code = Creatinine 1.2 0.5-1.4 Lvl) [facility]2014-08-03 20:50:00 Test Item Value Reference Range Interpretation Comments Calcium Lvl (test code = Calcium Lvl) 9.3 8.5-10.5 [facility] CenterCzrzwsaVTSFCPLUMU1156-45-11 20:50:00 Test Item Value Reference Range Interpretation Comments MPV (test code = MPV) 9.6 7.4-10.4 [facility] CenterTurcbotEGDHBZVAFD3188-14-54 20:50:00 Test Item Value Reference Range Interpretation Comments WBC (test code = WBC) 9.7 3.7-10.4 [facility] CenterIhnbbnaNLYYBVNBFB8720-15-18 20:50:00 Test Item Value Reference Range Interpretation Comments RDW (test code = RDW) 13.8 11.5-14.5 [facility] CenterLnnpsihGJACQDITEG3558-94-54 20:50:00 Test Item Value Reference Range Interpretation Comments MCHC (test code = MCHC) 32.9 32.0-36.0 [facility] CenterAopyszrGFYXQXTZOX7106-11-02 20:50:00 Test Item Value Reference Range Interpretation Comments RBC (test code = RBC) 4.95 4.20-5.40 [facility] CenterQbqznifUIBSAALOBS2589-13-05 20:50:00 Test Item Value Reference Range Interpretation Comments MCV (test code = MCV) 82.4 81.0-99.0 [facility] CenterIduqkteRBPJLAIOOI6077-57-65 20:50:00 Test Item Value Reference Range Interpretation Comments Hgb (test code = Hgb) 13.4 12.0-16.0 [facility] CenterQbljnmaXTZDWTHFYP3306-20-81 20:50:00 Test Item Value Reference Range Interpretation Comments Platelet (test code = Platelet) 275 133-450 [facility] CenterOvrmqajTKDUKHDYSS0619-13-24 20:50:00 Test Item Value Reference Range Interpretation Comments Hct (test code = Hct) 40.8 36.0-48.0 [facility] CenterNvgzkpmPARMHTNLYX9948-98-03 20:50:00 Test Item Value Reference Range Interpretation Comments MCH (test code = MCH) 27.1 pg 27.0-31.0 [facility] CenterShiaivqIBOZXARGAQ7031-60-99 20:50:00 Test Item Value Reference Range Interpretation Comments Monocytes # (test code 0.3 See_Comment [Aut omated message] The = Monocytes #) system which generated this result tra nsmitted reference range : <=0.8. The reference r eric was not used to int erpret this result as normal/abnormal . [facility] CenterIqefdisUCWMBYESKO1923-73-33 20:50:00 Test Item Value Reference Range Interpretation Comments Basophils # (test code 0.0 See_Comment [Aut omated message] The = Basophils #) system which generated this result tra nsmitted reference range : <=0.2. The reference r eric was not used to int erpret this result as normal/abnormal . [facility] CenterXhrjftnHYVSTYMCFG0213-30-34 20:50:00 Test Item Value Reference Range Interpretation Comments Eosinophils # (test code 0.0 See_Comment [A utomated message] The = Eosinophils #) system whic h generated this result tra nsmitted reference range : <=0.5. The reference r eric was not used to int erpret this result as normal/abnormal . [facility] CenterJohreuwJXCTVIBTUO7733-53-35 20:50:00 Test Item Value Reference Range Interpretation Comments Segs-Bands # (test code = Segs-Bands #) 8.7 1.5-8.1 [facility] CenterQebubyhEODYLMJIKE0260-69-59 20:50:00 Test Item Value Reference Range Interpretation Comments Lymphocytes # (test code = Lymphocytes 0.8 1.0-5.5 #) [facility] CenterIbsqendZTNWITZGLY1174-37-91 20:50:00 Test Item Value Reference Range Interpretation Comments Eosinophils (test code = 0.0 See_Comment [A utomated message] The Eosinophils) system which ge nerated this result tra nsmitted reference range : <=4.0. The reference r eric was not used to int erpret this result as normal/abnormal . [facility] CenterSybtpvnUVZZLFZJGV5827-42-76 20:50:00 Test Item Value Reference Range Interpretation Comments Basophils (test code = 0.2 See_Comment [Aut omated message] The Basophils) system which ge nerated this result tra nsmitted reference range : <=1.0. The reference r eric was not used to int erpret this result as normal/abnormal . [facility] CenterOgnfmuvMSLORAHFYD2444-94-88 20:50:00 Test Item Value Reference Range Interpretation Comments Monocytes (test code = Monocytes) 2.7 2.0-12.0 [facility] CenterMtkyaudLVYKIKUBCT3595-21-26 20:50:00 Test Item Value Reference Range Interpretation Comments Lymphocytes (test code = Lymphocytes) 8.1 20.0-40.0 [facility] CenterXrumcunMBMIJZKGSB7703-11-39 20:50:00 Test Item Value Reference Range Interpretation Comments Segs (test code = Segs) 89.0 45.0-75.0 [facility]2014-08-01 08:38:00 Test Item Value Reference Range Interpretation Comments eGFR (test code = eGFR) 52 [facility]2014-08-01 08:38:00 Test Item Value Reference Range Interpretation Comments Chloride Lvl (test code = Chloride Lvl) 99 95-109 [facility]2014-08-01 08:38:00 Test Item Value Reference Range Interpretation Comments CO2 (test code = CO2) 29 24-32 [facility]2014-08-01 08:38:00 Test Item Value Reference Range Interpretation Comments Glucose Lvl (test code = Glucose Lvl) 309 70-99 [facility]2014-08-01 08:38:00 Test Item Value Reference Range Interpretation Comments Calcium Lvl (test code = Calcium Lvl) 8.9 8.5-10.5 [facility]2014-08-01 08:38:00 Test Item Value Reference Range Interpretation Comments BUN (test code = BUN) 27 7-22 [facility]2014-08-01 08:38:00 Test Item Value Reference Range Interpretation Comments Sodium Lvl (test code = Sodium Lvl) 135 135-145 [facility]2014-08-01 08:38:00 Test Item Value Reference Range Interpretation Comments Creatinine Lvl (test code = Creatinine 1.1 0.5-1.4 Lvl) [facility]2014-08-01 08:38:00 Test Item Value Reference Range Interpretation Comments Potassium Lvl (test code = Potassium 4.7 3.5-5.1 Lvl) [facility]2014-08-01 08:38:00 Test Item Value Reference Range Interpretation Comments Total Protein (test code = Total 6.5 6.4-8.4 Protein) [facility]2014-08-01 08:38:00 Test Item Value Reference Range Interpretation Comments Albumin Lvl (test code = Albumin Lvl) 2.6 3.5-5.0 [facility]2014-08-01 08:38:00 Test Item Value Reference Range Interpretation Comments ALT (test code = ALT) 15 See_Comment [Auto mated message] The system which ge nerated this result transmit thelma reference range : <=65. The reference range was not used to interpr et this result as zana l/abnormal. [facility]2014-08-01 08:38:00 Test Item Value Reference Range Interpretation Comments AST (test code = AST) 10 See_Comment [Auto mated message] The system which ge nerated this result transmit thelma reference range : <=37. The reference range was not used to interpr et this result as zana l/abnormal. [facility]2014-08-01 08:38:00 Test Item Value Reference Range Interpretation Comments Alk Phos (test code = Alk Phos) 41 39-136 [facility]2014-08-01 08:38:00 Test Item Value Reference Range Interpretation Comments Bili Total (test code = Bili Total) 0.4 0.2-1.3 [facility]2014-08-01 08:38:00 Test Item Value Reference Range Interpretation Comments A/G Ratio (test code = A/G Ratio) 0.7 0.7-1.6 [facility]2014-08-01 08:38:00 Test Item Value Reference Range Interpretation Comments Globulin (test code = Globulin) 3.9 2.0-4.0 [facility]2014-08-01 08:38:00 Test Item Value Reference Range Interpretation Comments B/C Ratio (test code = B/C Ratio) 25 6-25 [facility]2014-08-01 08:38:00 Test Item Value Reference Range Interpretation Comments AGAP (test code = AGAP) 11.7 10.0-20.0 [facility]2014-08-01 08:38:00 Test Item Value Reference Range Interpretation Comments Magnesium Lvl (test code = Magnesium 1.8 1.8-2.4 Lvl) [facility]2014-08-01 08:38:00 Test Item Value Reference Range Interpretation Comments Phosphorus (test code = Phosphorus) 2.4 2.5-4.5 [facility] CenterLpbthycXULHVZLWLO9070-51-65 08:38:00 Test Item Value Reference Range Interpretation Comments WBC (test code = WBC) 18.1 3.7-10.4 [facility] CenterKegddoeWEGLZYFDSQ7606-22-42 08:38:00 Test Item Value Reference Range Interpretation Comments Platelet (test code = Platelet) 248 133-450 [facility] CenterAdghbejFQAZUDTFDC5497-23-17 08:38:00 Test Item Value Reference Range Interpretation Comments RDW (test code = RDW) 13.8 11.5-14.5 [facility] CenterSgjnwwvITNHPJPYGU1084-66-40 08:38:00 Test Item Value Reference Range Interpretation Comments MCHC (test code = MCHC) 32.2 32.0-36.0 [facility] CenterFuxbzpiGKPASAPNFT7133-44-85 08:38:00 Test Item Value Reference Range Interpretation Comments MCH (test code = MCH) 26.8 pg 27.0-31.0 [facility] CenterYcokphlZKBREISIHJ6216-74-65 08:38:00 Test Item Value Reference Range Interpretation Comments Hct (test code = Hct) 37.1 36.0-48.0 [facility] CenterRvskdgeXFZSPJZETZ9917-02-64 08:38:00 Test Item Value Reference Range Interpretation Comments MCV (test code = MCV) 83.2 81.0-99.0 [facility] CenterGflnqjzQQWNOQUUIS5273-73-78 08:38:00 Test Item Value Reference Range Interpretation Comments RBC (test code = RBC) 4.47 4.20-5.40 [facility] CenterFobgchxMDKCDKWBOZ4003-92-18 08:38:00 Test Item Value Reference Range Interpretation Comments Hgb (test code = Hgb) 12.0 12.0-16.0 [facility] CenterDsswfxtQSZQOCAWZY0621-79-74 08:38:00 Test Item Value Reference Range Interpretation Comments MPV (test code = MPV) 9.0 7.4-10.4 [facility] CenterNlojojnXNAJLKXCJY5852-83-84 08:38:00 Test Item Value Reference Range Interpretation Comments Basophils # (test code 0.0 See_Comment [Aut omated message] The = Basophils #) system which generated this result tra nsmitted reference range : <=0.2. The reference r eric was not used to int erpret this result as normal/abnormal . [facility] CenterVwhqzyuBDNQXAEHEL2072-85-98 08:38:00 Test Item Value Reference Range Interpretation Comments Toxic Gran (test code Slight *ABN*(04/14/14 = Toxic Gran) 3:38 AM) [facility] CenterZizgmcsIEXYRNOEZJ9131-94-08 08:38:00 Test Item Value Reference Range Interpretation Comments Monocytes # (test code 0.3 See_Comment [Aut omated message] The = Monocytes #) system which generated this result tra nsmitted reference range : <=0.8. The reference r eric was not used to int erpret this result as normal/abnormal . [facility] CenterQurjtjpVFYKCEYKPL2178-53-20 08:38:00 Test Item Value Reference Range Interpretation Comments Eosinophils # (test code 0.0 See_Comment [A utomated message] The = Eosinophils #) system whic h generated this result tra nsmitted reference range : <=0.5. The reference r eric was not used to int erpret this result as normal/abnormal . [facility] CenterVnxccsiUFYLDAYVYR9190-92-86 08:38:00 Test Item Value Reference Range Interpretation Comments Segs-Bands # (test code = Segs-Bands #) 17.2 1.5-8.1 [facility] CenterHqpmyaaFGELDYCSZC5389-89-25 08:38:00 Test Item Value Reference Range Interpretation Comments Lymphocytes # (test code = Lymphocytes 0.6 1.0-5.5 #) [facility] CenterUocoxsaLEOVPFQFAG0559-38-44 08:38:00 Test Item Value Reference Range Interpretation Comments Basophils (test code = 0.1 See_Comment [Aut omated message] The Basophils) system which ge nerated this result tra nsmitted reference range : <=1.0. The reference r eric was not used to int erpret this result as normal/abnormal . [facility] CenterAmsfpnpNIQNYPHSGB6682-78-38 08:38:00 Test Item Value Reference Range Interpretation Comments Segs (test code = Segs) 94.6 45.0-75.0 [facility] CenterKbcbnbyVUGIWJRNZM6973-88-90 08:38:00 Test Item Value Reference Range Interpretation Comments Lymphocytes (test code = Lymphocytes) 3.5 20.0-40.0 [facility] CenterDdvockuRSVGMGWINO3094-17-78 08:38:00 Test Item Value Reference Range Interpretation Comments Monocytes (test code = Monocytes) 1.8 2.0-12.0 [facility] CenterNtnvjbqMXLPFYFOQF9014-99-68 08:38:00 Test Item Value Reference Range Interpretation Comments Eosinophils (test code = 0.0 See_Comment [A utomated message] The Eosinophils) system which ge nerated this result tra nsmitted reference range : <=4.0. The reference r eric was not used to int erpret this result as normal/abnormal . [facility] CenterQhuwsmfMFXMAJTUTB6665-80-68 08:38:00 Test Item Value Reference Range Interpretation Comments Plt Morph (test code = Normal (04/14/14 3:38 AM) Plt Morph) [facility] CenterBhmpqilXPCTEIOHPC5118-39-46 08:38:00 Test Item Value Reference Range Interpretation Comments RBC Morph (test code = Normal (8/1/14 3:38 AM) RBC Morph) [facility] QTOTVULWF2931-05-17 08:38:00 Test Item Value Reference Range Interpretation Comments Hgb A1C (test code = Hgb A1C) 8.3 [facility]2014-08-01 08:38:00 Test Item Value Reference Range Interpretation Comments eGFR (test code = eGFR) 52 [facility]2014-08-01 08:38:00 Test Item Value Reference Range Interpretation Comments Chloride Lvl (test code = Chloride Lvl) 99 95-109 [facility]2014-08-01 08:38:00 Test Item Value Reference Range Interpretation Comments CO2 (test code = CO2) 29 24-32 [facility]2014-08-01 08:38:00 Test Item Value Reference Range Interpretation Comments Glucose Lvl (test code = Glucose Lvl) 309 70-99 [facility]2014-08-01 08:38:00 Test Item Value Reference Range Interpretation Comments Calcium Lvl (test code = Calcium Lvl) 8.9 8.5-10.5 [facility]2014-08-01 08:38:00 Test Item Value Reference Range Interpretation Comments BUN (test code = BUN) 27 7-22 [facility]2014-08-01 08:38:00 Test Item Value Reference Range Interpretation Comments Sodium Lvl (test code = Sodium Lvl) 135 135-145 [facility]2014-08-01 08:38:00 Test Item Value Reference Range Interpretation Comments Creatinine Lvl (test code = Creatinine 1.1 0.5-1.4 Lvl) [facility]2014-08-01 08:38:00 Test Item Value Reference Range Interpretation Comments Potassium Lvl (test code = Potassium 4.7 3.5-5.1 Lvl) [facility]2014-08-01 08:38:00 Test Item Value Reference Range Interpretation Comments Total Protein (test code = Total 6.5 6.4-8.4 Protein) [facility]2014-08-01 08:38:00 Test Item Value Reference Range Interpretation Comments Albumin Lvl (test code = Albumin Lvl) 2.6 3.5-5.0 [facility]2014-08-01 08:38:00 Test Item Value Reference Range Interpretation Comments ALT (test code = ALT) 15 See_Comment [Auto mated message] The system which ge nerated this result transmit thelma reference range : <=65. The reference range was not used to interpr et this result as zana l/abnormal. [facility] [id number] 08:38:00 Test Item Value Reference Range Interpretation Comments AST (test code = AST) 10 See_Comment [Auto mated message] The system which ge nerated this result transmit thelma reference range : <=37. The reference range was not used to interpr et this result as zana l/abnormal. [facility] [id number] 08:38:00 Test Item Value Reference Range Interpretation Comments Alk Phos (test code = Alk Phos) 41 39-136 [facility] [id number] 08:38:00 Test Item Value Reference Range Interpretation Comments Bili Total (test code = Bili Total) 0.4 0.2-1.3 [facility] [id number] 08:38:00 Test Item Value Reference Range Interpretation Comments A/G Ratio (test code = A/G Ratio) 0.7 0.7-1.6 [facility] [id number] 08:38:00 Test Item Value Reference Range Interpretation Comments Globulin (test code = Globulin) 3.9 2.0-4.0 [facility] FallsSintact Medical Systems, LLCBLUE RID[facility]PITALQQYFE2683-75-22 08:38:00 Test Item Value Reference Range Interpretation Comments B/C Ratio (test code = B/C Ratio) 25 6-25 [facility] [id number] 08:38:00 Test Item Value Reference Range Interpretation Comments AGAP (test code = AGAP) 11.7 10.0-20.0 [facility] [id number] 08:38:00 Test Item Value Reference Range Interpretation Comments Magnesium Lvl (test code = Magnesium 1.8 1.8-2.4 Lvl) [facility] FallsSint[facility] Medical Systems, LLCBLUE RIDGE REGIONAL HOSPITALMFFOQ7126-14-39 08:38:00 Test Item Value Reference Range Interpretation Comments Phosphorus (test code = Phosphorus) 2.4 2.5-4.5 [facility]KqucmewAWUHGZBKTA2277-52-60 08:38:00 Test Item Value Reference Range Interpretation Comments WBC (test code = WBC) 18.1 3.7-10.4 [facility] CenterGwbscuoZKFQPLAYUE0694-71-64 08:38:00 Test Item Value Reference Range Interpretation Comments Platelet (test code = Platelet) 248 133-450 [facility] CenterKchrohdYHZNJMYORZ2190-30-56 08:38:00 Test Item Value Reference Range Interpretation Comments RDW (test code = RDW) 13.8 11.5-14.5 [facility] CenterPwndibbTLHWKKQTCB2550-36-05 08:38:00 Test Item Value Reference Range Interpretation Comments MCHC (test code = MCHC) 32.2 32.0-36.0 [facility] CenterExbwfhwEEWOPDOMZY6006-64-94 08:38:00 Test Item Value Reference Range Interpretation Comments MCH (test code = MCH) 26.8 pg 27.0-31.0 [facility] CenterAshtuccOBIPOJNYFK6419-42-73 08:38:00 Test Item Value Reference Range Interpretation Comments Hct (test code = Hct) 37.1 36.0-48.0 [facility] CenterFaotpuzYPSUAGIUUX0033-75-96 08:38:00 Test Item Value Reference Range Interpretation Comments MCV (test code = MCV) 83.2 81.0-99.0 [facility] CenterRuyoxkjAPUXWBQZRN4793-70-33 08:38:00 Test Item Value Reference Range Interpretation Comments RBC (test code = RBC) 4.47 4.20-5.40 [facility] CenterNzmeuawRDLAMQMSCS0948-39-03 08:38:00 Test Item Value Reference Range Interpretation Comments Hgb (test code = Hgb) 12.0 12.0-16.0 [facility] CenterOvbrwhlHLETYDOEVW4254-60-33 08:38:00 Test Item Value Reference Range Interpretation Comments MPV (test code = MPV) 9.0 7.4-10.4 [facility] CenterTaflsxbSEQCMEQBUC6502-48-97 08:38:00 Test Item Value Reference Range Interpretation Comments Basophils # (test code 0.0 See_Comment [Aut omated message] The = Basophils #) system which generated this result tra nsmitted reference range : <=0.2. The reference r eric was not used to int erpret this result as normal/abnormal . [facility] CenterSiqekefVXCODCCIRD8388-95-81 08:38:00 Test Item Value Reference Range Interpretation Comments Toxic Gran (test code Slight *ABN*(04/14/14 = Toxic Gran) 3:38 AM) [facility] CenterAeykljmXLZIGZRWBJ8427-29-68 08:38:00 Test Item Value Reference Range Interpretation Comments Monocytes # (test code 0.3 See_Comment [Aut omated message] The = Monocytes #) system which generated this result tra nsmitted reference range : <=0.8. The reference r eric was not used to int erpret this result as normal/abnormal . [facility] CenterMzkfdivOBRGBXHMNG7870-06-06 08:38:00 Test Item Value Reference Range Interpretation Comments Eosinophils # (test code 0.0 See_Comment [A utomated message] The = Eosinophils #) system whic h generated this result tra nsmitted reference range : <=0.5. The reference r eric was not used to int erpret this result as normal/abnormal . [facility] CenterHalavraYNGCNQHPTT0447-85-44 08:38:00 Test Item Value Reference Range Interpretation Comments Segs-Bands # (test code = Segs-Bands #) 17.2 1.5-8.1 [facility] CenterGayvrymSJLZNZFDKJ3289-91-53 08:38:00 Test Item Value Reference Range Interpretation Comments Lymphocytes # (test code = Lymphocytes 0.6 1.0-5.5 #) [facility] CenterGtqpagiZXLTCLIZOA5811-93-74 08:38:00 Test Item Value Reference Range Interpretation Comments Basophils (test code = 0.1 See_Comment [Aut omated message] The Basophils) system which ge nerated this result tra nsmitted reference range : <=1.0. The reference r eric was not used to int erpret this result as normal/abnormal . [facility] CenterGyoyygjMUWZSLONXV4815-05-63 08:38:00 Test Item Value Reference Range Interpretation Comments Segs (test code = Segs) 94.6 45.0-75.0 [facility] CenterDcszageJKNQALSDTL8222-86-14 08:38:00 Test Item Value Reference Range Interpretation Comments Lymphocytes (test code = Lymphocytes) 3.5 20.0-40.0 [facility] CenterIwqvrxmSSGMTPPBSS2028-53-90 08:38:00 Test Item Value Reference Range Interpretation Comments Monocytes (test code = Monocytes) 1.8 2.0-12.0 [facility] CenterWafoxrkYXOFMJLTBY7103-38-36 08:38:00 Test Item Value Reference Range Interpretation Comments Eosinophils (test code = 0.0 See_Comment [A utomated message] The Eosinophils) system which ge nerated this result tra nsmitted reference range : <=4.0. The reference r eric was not used to int erpret this result as normal/abnormal . [facility]KhvtjqgEXQRGXGPNN5715-52-11 08:38:00 Test Item Value Reference Range Interpretation Comments Plt Morph (test code = Normal (04/14/14 3:38 AM) Plt Morph) [facility] HospitalRllujahXPLWZBQRGI8320-61-40 08:38:00 Test Item Value Reference Range Interpretation Comments RBC Morph (test code = Normal (04/14/14 3:38 AM) RBC Morph) [facility] HQBVTXLXR5488-60-97 08:38:00 Test Item Value Reference Range Interpretation Comments Hgb A1C (test code = Hgb A1C) 8.3 [facility] CenterMuckRock [id number] 07:30:00 Test Item Value Reference Range Interpretation Comments Magnesium Lvl (test code = Magnesium 1.8 1.8-2.4 Lvl) [facility]2014-07-31 07:30:00 Test Item Value Reference Range Interpretation Comments Phosphorus (test code = Phosphorus) 3.4 2.5-4.5 [facility]2014-07-31 07:30:00 Test Item Value Reference Range Interpretation Comments eGFR (test code = eGFR) 66 [facility] [id number] 07:30:00 Test Item Value Reference Range Interpretation Comments CO2 (test code = CO2) 30 24-32 [facility] [id number] 07:30:00 Test Item Value Reference Range Interpretation Comments Calcium Lvl (test code = Calcium Lvl) 9.3 8.5-10.5 [facility] [id number] 07:30:00 Test Item Value Reference Range Interpretation Comments Chloride Lvl (test code = Chloride Lvl) 103 95-109 [facility] [id number] 07:30:00 Test Item Value Reference Range Interpretation Comments AGAP (test code = AGAP) 11.1 10.0-20.0 [facility] VJGCQ4843-20-28 07:30:00 Test Item Value Reference Range Interpretation Comments Potassium Lvl (test code = Potassium 4.1 3.5-5.1 Lvl) [facility] [id number] 07:30:00 Test Item Value Reference Range Interpretation Comments BUN (test code = BUN) 16 7-22 [facility]2014-07-31 07:30:00 Test Item Value Reference Range Interpretation Comments Sodium Lvl (test code = Sodium Lvl) 140 135-145 [facility]2014-07-31 07:30:00 Test Item Value Reference Range Interpretation Comments Glucose Lvl (test code = Glucose Lvl) 230 70-99 [facility]2014-07-31 07:30:00 Test Item Value Reference Range Interpretation Comments Creatinine Lvl (test code = Creatinine 0.9 0.5-1.4 Lvl) [facility] CenterYpqkmsjBNIUGANWMY5224-24-10 07:30:00 Test Item Value Reference Range Interpretation Comments Platelet (test code = Platelet) 226 133-450 [facility] CenterAbxlkrkAGNGGMMCYX0176-28-41 07:30:00 Test Item Value Reference Range Interpretation Comments RDW (test code = RDW) 13.5 11.5-14.5 [facility] CenterMydhcomDKMVARUVXY2448-13-33 07:30:00 Test Item Value Reference Range Interpretation Comments MPV (test code = MPV) 9.7 7.4-10.4 [facility] CenterXsyonezNYVKMFPKGC3956-96-00 07:30:00 Test Item Value Reference Range Interpretation Comments WBC (test code = WBC) 9.6 3.7-10.4 [facility] CenterHaccqexXOZYCEJDAH9317-79-36 07:30:00 Test Item Value Reference Range Interpretation Comments RBC (test code = RBC) 4.49 4.20-5.40 [facility] CenterJlrvnniNXAIVYEMFA9435-53-03 07:30:00 Test Item Value Reference Range Interpretation Comments Hgb (test code = Hgb) 12.0 12.0-16.0 [facility] CenterRmzmxfrUBBIPGBGTK1477-73-75 07:30:00 Test Item Value Reference Range Interpretation Comments MCV (test code = MCV) 83.2 81.0-99.0 [facility] CenterMxqaevaLBNQAMRQZH3447-46-39 07:30:00 Test Item Value Reference Range Interpretation Comments Hct (test code = Hct) 37.4 36.0-48.0 [facility] CenterZtjnqirSSXSTEPLQU8156-05-63 07:30:00 Test Item Value Reference Range Interpretation Comments MCHC (test code = MCHC) 32.1 32.0-36.0 [facility] CenterRmlguugXOYUZJCCGC3699-01-80 07:30:00 Test Item Value Reference Range Interpretation Comments MCH (test code = MCH) 26.7 pg 27.0-31.0 [facility] CenterXtdxdvqERMUIDCUEY2398-94-90 07:30:00 Test Item Value Reference Range Interpretation Comments Basophils (test code = 0.0 See_Comment [Aut omated message] The Basophils) system which ge nerated this result tra nsmitted reference range : <=1.0. The reference r eric was not used to int erpret this result as normal/abnormal . [facility] CenterFbsojujPVAQSBSGMA0156-84-09 07:30:00 Test Item Value Reference Range Interpretation Comments Segs-Bands # (test code = Segs-Bands #) 8.9 1.5-8.1 [facility] CenterVgzktxbGRPLCOOHXU6342-60-63 07:30:00 Test Item Value Reference Range Interpretation Comments Segs (test code = Segs) 92.8 45.0-75.0 [facility] CenterGrrzoncISWLVRHOLR3160-18-80 07:30:00 Test Item Value Reference Range Interpretation Comments Lymphocytes (test code = Lymphocytes) 5.4 20.0-40.0 [facility] CenterApfqoyaQBAPGLOEFN9656-76-52 07:30:00 Test Item Value Reference Range Interpretation Comments Eosinophils (test code = 0.0 See_Comment [A utomated message] The Eosinophils) system which ge nerated this result tra nsmitted reference range : <=4.0. The reference r eric was not used to int erpret this result as normal/abnormal . [facility]JdfviatXJLVAHLBBO2209-75-67 07:30:00 Test Item Value Reference Range Interpretation Comments Monocytes (test code = Monocytes) 1.8 2.0-12.0 [facility] CenterZadioswHQAOHYVGFM3304-15-44 07:30:00 Test Item Value Reference Range Interpretation Comments Lymphocytes # (test code = Lymphocytes 0.5 1.0-5.5 #) [facility] CenterZzaqageBRPCDPVFNU4425-51-73 07:30:00 Test Item Value Reference Range Interpretation Comments Monocytes # (test code 0.2 See_Comment [Aut omated message] The = Monocytes #) system which generated this result tra nsmitted reference range : <=0.8. The reference r eric was not used to int erpret this result as normal/abnormal . [facility] CenterWfzaldyZNZCINEONW6597-48-44 07:30:00 Test Item Value Reference Range Interpretation Comments Eosinophils # (test code 0.0 See_Comment [A utomated message] The = Eosinophils #) system whic h generated this result tra nsmitted reference range : <=0.5. The reference r eric was not used to int erpret this result as normal/abnormal . [facility] CenterKerwqxcSDMYJZFTFW4068-04-95 07:30:00 Test Item Value Reference Range Interpretation Comments Basophils # (test code 0.0 See_Comment [Aut omated message] The = Basophils #) system which generated this result tra nsmitted reference range : <=0.2. The reference r eric was not used to int erpret this result as normal/abnormal . [facility]2014-07-31 07:30:00 Test Item Value Reference Range Interpretation Comments Magnesium Lvl (test code = Magnesium 1.8 1.8-2.4 Lvl) [facility]2014-07-31 07:30:00 Test Item Value Reference Range Interpretation Comments Phosphorus (test code = Phosphorus) 3.4 2.5-4.5 [facility]2014-07-31 07:30:00 Test Item Value Reference Range Interpretation Comments eGFR (test code = eGFR) 66 [facility]2014-07-31 07:30:00 Test Item Value Reference Range Interpretation Comments CO2 (test code = CO2) 30 24-32 [facility]2014-07-31 07:30:00 Test Item Value Reference Range Interpretation Comments Calcium Lvl (test code = Calcium Lvl) 9.3 8.5-10.5 [facility]2014-07-31 07:30:00 Test Item Value Reference Range Interpretation Comments Chloride Lvl (test code = Chloride Lvl) 103 95-109 [facility]2014-07-31 07:30:00 Test Item Value Reference Range Interpretation Comments AGAP (test code = AGAP) 11.1 10.0-20.0 [facility]2014-07-31 07:30:00 Test Item Value Reference Range Interpretation Comments Potassium Lvl (test code = Potassium 4.1 3.5-5.1 Lvl) [facility]2014-07-31 07:30:00 Test Item Value Reference Range Interpretation Comments BUN (test code = BUN) 16 7-22 [facility]2014-07-31 07:30:00 Test Item Value Reference Range Interpretation Comments Sodium Lvl (test code = Sodium Lvl) 140 135-145 [facility]2014-07-31 07:30:00 Test Item Value Reference Range Interpretation Comments Glucose Lvl (test code = Glucose Lvl) 230 70-99 [facility]2014-07-31 07:30:00 Test Item Value Reference Range Interpretation Comments Creatinine Lvl (test code = Creatinine 0.9 0.5-1.4 Lvl) [facility] CenterSbkpakyCBTNXHXKPB8297-84-56 07:30:00 Test Item Value Reference Range Interpretation Comments Platelet (test code = Platelet) 226 133-450 [facility] CenterCmobtfbVZQDLLCNMB4782-53-29 07:30:00 Test Item Value Reference Range Interpretation Comments RDW (test code = RDW) 13.5 11.5-14.5 [facility] CenterFmsbkpaCCAPRSGMYH0594-29-45 07:30:00 Test Item Value Reference Range Interpretation Comments MPV (test code = MPV) 9.7 7.4-10.4 [facility] CenterPrqlytdWYWWUKNTIN0178-78-98 07:30:00 Test Item Value Reference Range Interpretation Comments WBC (test code = WBC) 9.6 3.7-10.4 [facility] CenterPvcuvyuZOBPFYXPGE9420-54-79 07:30:00 Test Item Value Reference Range Interpretation Comments RBC (test code = RBC) 4.49 4.20-5.40 [facility] CenterSzlmictNSLGKOVXOQ2512-24-46 07:30:00 Test Item Value Reference Range Interpretation Comments Hgb (test code = Hgb) 12.0 12.0-16.0 [facility] CenterDedggqlKAXNWGXELD9978-54-23 07:30:00 Test Item Value Reference Range Interpretation Comments MCV (test code = MCV) 83.2 81.0-99.0 [facility] CenterLgrefhvCPTVMOGJDV2835-34-89 07:30:00 Test Item Value Reference Range Interpretation Comments Hct (test code = Hct) 37.4 36.0-48.0 [facility] CenterFsiglpdBMEKVMWMKW5544-35-24 07:30:00 Test Item Value Reference Range Interpretation Comments MCHC (test code = MCHC) 32.1 32.0-36.0 [facility] CenterIvvrugyNKIVJUZZZK3306-50-34 07:30:00 Test Item Value Reference Range Interpretation Comments MCH (test code = MCH) 26.7 pg 27.0-31.0 [facility] CenterIpnrwioRPUWWRIITN1050-00-46 07:30:00 Test Item Value Reference Range Interpretation Comments Basophils (test code = 0.0 See_Comment [Aut omated message] The Basophils) system which ge nerated this result tra nsmitted reference range : <=1.0. The reference r eric was not used to int erpret this result as normal/abnormal . [facility] CenterFqrzyupFTZDIUEXUW8249-57-75 07:30:00 Test Item Value Reference Range Interpretation Comments Segs-Bands # (test code = Segs-Bands #) 8.9 1.5-8.1 [facility] CenterRjtzwhqVVEPUERVOF7465-36-36 07:30:00 Test Item Value Reference Range Interpretation Comments Segs (test code = Segs) 92.8 45.0-75.0 [facility] CenterZgktcmiGVBVIEPZSM5049-95-04 07:30:00 Test Item Value Reference Range Interpretation Comments Lymphocytes (test code = Lymphocytes) 5.4 20.0-40.0 [facility] CenterHxlguswTCXYXKEWZN9782-39-07 07:30:00 Test Item Value Reference Range Interpretation Comments Eosinophils (test code = 0.0 See_Comment [A utomated message] The Eosinophils) system which ge nerated this result tra nsmitted reference range : <=4.0. The reference r eric was not used to int erpret this result as normal/abnormal . [facility] CenterMbdvbvgXIPSOTPSVH7909-09-47 07:30:00 Test Item Value Reference Range Interpretation Comments Monocytes (test code = Monocytes) 1.8 2.0-12.0 [facility] CenterOghayneUXNBFYJVFK2085-98-10 07:30:00 Test Item Value Reference Range Interpretation Comments Lymphocytes # (test code = Lymphocytes 0.5 1.0-5.5 #) [facility] CenterOoanaqxYALICPGAOH8396-50-86 07:30:00 Test Item Value Reference Range Interpretation Comments Monocytes # (test code 0.2 See_Comment [Aut omated message] The = Monocytes #) system which generated this result tra nsmitted reference range : <=0.8. The reference r eric was not used to int erpret this result as normal/abnormal . [facility] CenterIlunqezZMOAZWSLBO1023-90-06 07:30:00 Test Item Value Reference Range Interpretation Comments Eosinophils # (test code 0.0 See_Comment [A utomated message] The = Eosinophils #) system wh h generated this result tra nsmitted reference range : <=0.5. The reference r eric was not used to int erpret this result as normal/abnormal . [facility]IkajfnwGYVUMJRXPN5528-97-88 07:30:00 Test Item Value Reference Range Interpretation Comments Basophils # (test code 0.0 See_Comment [Aut omated message] The = Basophils #) system which generated this result tra nsmitted reference range : <=0.2. The reference r eric was not used to int erpret this result as normal/abnormal . [place] [id number] 00:20:08 Test Item Value Reference Range Interpretation Comments Grp A Strep Scr (test Negative (04/12/14 7:20 code = Grp A Strep PM) Scr) [place] [id number] 00:20:08 Test Item Value Reference Range Interpretation Comments Grp A Strep Scr (test Negative (04/12/14 7:20 code = Grp A Strep PM) Scr) [facility] CenterHitFixOFUBLQA9969-64-94 16:10:00 Test Item Value Reference Range Interpretation Comments CK MB Index (test 1.9 See_Comment [Automate d message] The code = CK MB Index) system w [facility] generated this result transmit thelma reference range : <=2.5. The reference range was not used to interpr et this result as zana l/abnormal. [facility] CenterHitFixKWLCAFS2598-65-62 16:10:00 Test Item Value Reference Range Interpretation Comments BNP (test code = BNP) 24 [facility] CenterHitFixIVALGNF4185-72-45 16:10:00 Test Item Value Reference Range Interpretation Comments Troponin-I (test code no gt See_Comment [Auto mated message] The = Troponin-I) system which g enerated this result transmit thelma reference range : <=0.40. The reference r eric was not used to interpr et this result as zana l/abnormal. [facility] 16:10:00 Test Item Value Reference Range Interpretation Comments CK MB (test code = CK MB) 0.6 0.5-3.6 [facility] FallsSTEGOSYSTEMS2014-07-30 16:10:00 Test Item Value Reference Range Interpretation Comments Total CK (test code = Total CK) 31 12-191 [facility] FallsRock Content [id number] 16:10:00 Test Item Value Reference Range Interpretation Comments Procalcitonin Lvl (test no gt See_Comment [Au tomated message] code = Procalcitonin Lvl) Th e system which generated this result transmitted ref erence range: <=0.10. The reference range was not used to interpr et this result as normal/abnormal . [facility] FallsRock Content [id number] 16:10:00 Test Item Value Reference Range Interpretation Comments Lactic Acid Lvl (test code = Lactic 0.9 0.5-2.2 Acid Lvl) [facility] CenterDjeftxwURXJVKWCJN0889-71-17 16:10:00 Test Item Value Reference Range Interpretation Comments INR (test code = INR) 1.02 0.85-1.17 [facility] FallsLbgeoehYRCCRIITZA6813-56-26 16:10:00 Test Item Value Reference Range Interpretation Comments PT (test code = PT) 13.3 s 12.0-14.7 [facility] FallsSTEGOSYSTEMS2014-07-30 16:10:00 Test Item Value Reference Range Interpretation Comments CK MB Index (test 1.9 See_Comment [Automate d message] The code = CK MB Index) system w [facility] generated this result transmit thelma reference range : <=2.5. The reference range was not used to interpr et this result as zana l/abnormal. [facility] FallsSTEGOSYSTEMS2014-07-30 16:10:00 Test Item Value Reference Range Interpretation Comments BNP (test code = BNP) 24 [facility] FallsSTEGOSYSTEMS2014-07-30 16:10:00 Test Item Value Reference Range Interpretation Comments Troponin-I (test code no gt See_Comment [Auto mated message] The = Troponin-I) system which g enerated this result transmit thelma reference range : <=0.40. The reference r eric was not used to interpr et this result as zana l/abnormal. [facility] Volve2014-07-30 16:10:00 Test Item Value Reference Range Interpretation Comments CK MB (test code = CK MB) 0.6 0.5-3.6 [facility] HermannCARDIAC [id number] 16:10:00 Test Item Value Reference Range Interpretation Comments Total CK (test code = Total CK) 31 12-191 [facility] FallsannCHEM [id number] 16:10:00 Test Item Value Reference Range Interpretation Comments Procalcitonin Lvl (test no gt See_Comment [Au tomated message] code = Procalcitonin Lvl) Th e system which generated this result transmitted ref erence range: <=0.10. The reference range was not used to interpr et this result as normal/abnormal . [facility] [id number] 16:10:00 Test Item Value Reference Range Interpretation Comments Lactic Acid Lvl (test code = Lactic 0.9 0.5-2.2 Acid Lvl) [facility] CenterEfvnrtvWBWQIRZNOK4923-81-49 16:10:00 Test Item Value Reference Range Interpretation Comments INR (test code = INR) 1.02 0.85-1.17 [facility] HospitalSsjsyyoDCSNMJIHZI0118-33-92 16:10:00 Test Item Value Reference Range Interpretation Comments PT (test code = PT) 13.3 s 12.0-14.7 [facility] GLUCOSE [id number] 20:14:00 Test Item Value Reference Range Interpretation Comments Comment2 (test code = Notified Nurse Comment2) [facility] GLUCOSE [id number] 20:14:00 Test Item Value Reference Range Interpretation Comments Comment1 (test code = Comment1) Notified [facility] GLUCOSE [id number] 20:14:00 Test Item Value Reference Range Interpretation Comments Gluc POC Lifscn (test code = Gluc POC 164 70-99 H Lifscn) [facility] GLUCOSE NBHFUQX1099-57-13 20:14:00 Test Item Value Reference Range Interpretation Comments Comment2 (test code = Notified Nurse Comment2) [facility] GLUCOSE [id number] 20:14:00 Test Item Value Reference Range Interpretation Comments Comment1 (test code = Comment1) Notified [facility] GLUCOSE [id number] 20:14:00 Test Item Value Reference Range Interpretation Comments Gluc POC Lifscn (test code = Gluc POC 164 70-99 H Lifscn) [facility]RscnnzvWTSJCOZILS2443-94-17 18:51:00 Test Item Value Reference Range Interpretation Comments UA Urobilinogen (test code *NA*(06/22/2012 0.1-1.0 = UA Urobilinogen) 13:51:00) [facility] HospitalRzjmyanUNCHYBWFEZ4409-82-31 18:51:00 Test Item Value Reference Range Interpretation Comments UA Mucus (test code = Few /LPF UA Mucus) *NA*(06/22/2012 13:51:00) [facility] HospitalQgngyppKGKNLJBIHE0544-49-63 18:51:00 Test Item Value Reference Range Interpretation Comments UA Sq Epi (test code = Few /LPF UA Sq Epi) *NA*(06/22/2012 13:51:00) [facility] HospitalTiqjmbqEYYMQRCNDA5528-83-16 18:51:00 Test Item Value Reference Range Interpretation Comments UA WBC (test code = 3 See_Comment N [Automa thelma message] The UA WBC) system which ge nerated this result transmit thelma reference range : <=5. The reference range was not used to interpr et this result as zana l/abnormal. [facility] HospitalAciimoySFPFVJBANB4637-38-96 18:51:00 Test Item Value Reference Range Interpretation Comments UA RBC (test code = 1 See_Comment N [Automa thelma message] The UA RBC) system which ge nerated this result transmit thelma reference range : <=2. The reference range was not used to interpr et this result as zana l/abnormal. [facility] HospitalNlgwnvmKYUAMYTXVL1935-43-97 18:51:00 Test Item Value Reference Range Interpretation Comments UA Leuk Est (test Moderate A code = UA Leuk Est) *ABN*(06/22/2012 13:51:00) [facility] HospitalZmdwmezHQILZOUPKN5064-26-02 18:51:00 Test Item Value Reference Range Interpretation Comments UA Blood (test code = Negative (06/22/2012 N UA Blood) 13:51:00) [facility] HospitalJciaelfAXZTKBQPSR6019-12-92 18:51:00 Test Item Value Reference Range Interpretation Comments UA Nitrite (test code Negative (06/22/2012 N = UA Nitrite) 13:51:00) [facility] HospitalOkdywkbDULMMQJLUG5022-69-27 18:51:00 Test Item Value Reference Range Interpretation Comments UA Ketones (test code Negative mg/dL = UA Ketones) *NA*(06/22/2012 13:51:00) [facility] HospitalHtyaojsEQCOCUVNGW2866-45-78 18:51:00 Test Item Value Reference Range Interpretation Comments UA Bili (test code = Negative *NA*(06/22/2012 UA Bili) 13:51:00) [facility]inteVxhyraeNHEQTSKOBA5878-99-59 18:51:00 Test Item Value Reference Range Interpretation Comments UA Glucose (test code = 500 mg/dL A UA Glucose) *ABN*(06/22/2012 13:51:00) [facility] HospitalSfpvrnlWFXOTKSSDF3574-97-77 18:51:00 Test Item Value Reference Range Interpretation Comments UA pH (test code = UA pH) 6.0 5.0-8.0 N [facility] PointeIxsuxpeYNKBBPOBMJ2738-46-12 18:51:00 Test Item Value Reference Range Interpretation Comments UA Protein (test code Negative mg/dL N = UA Protein) (06/22/2012 13:51:00) [facility] HospitalGuaeaydCFJXAUOBEX2212-10-55 18:51:00 Test Item Value Reference Range Interpretation Comments UA Spec Grav (test code = UA Spec Grav) 1.008 N [facility] HospitalCluwlhpTGSSYPFOUJ4990-13-95 18:51:00 Test Item Value Reference Range Interpretation Comments UA Color (test code = Yellow *NA*(06/22/2012 UA Color) 13:51:00) [facility] HospitalAsyqfhuSYGZTQFEYY5069-38-33 18:51:00 Test Item Value Reference Range Interpretation Comments UA Turbidity (test code = Clear (06/22/2012 N UA Turbidity) 13:51:00) [facility] CenterUxhqvzbPusertalvtta6150-70-10 18:51:00 Test Item Value Reference Range Interpretation Comments Culture: Urine (test code = Culture: Urine) [facility] HospitalCihyzwgIAMKIHNVQN8106-89-72 18:51:00 Test Item Value Reference Range Interpretation Comments UA Urobilinogen (test code *NA*(06/22/2012 0.1-1.0 = UA Urobilinogen) 13:51:00) [facility] HospitalRlyuoifRQZXVTBNYB7243-74-52 18:51:00 Test Item Value Reference Range Interpretation Comments UA Mucus (test code = Few /LPF UA Mucus) *NA*(06/22/2012 13:51:00) [facility] HospitalGsmgirgGDBSSMASYM2179-55-06 18:51:00 Test Item Value Reference Range Interpretation Comments UA Sq Epi (test code = Few /LPF UA Sq Epi) *NA*(06/22/2012 13:51:00) [facility] HospitalYuhgwmbBYJAPKOQUH8527-49-59 18:51:00 Test Item Value Reference Range Interpretation Comments UA WBC (test code = 3 See_Comment N [Automa thelma message] The UA WBC) system which ge nerated this result transmit thelma reference range : <=5. The reference range was not used to interpr et this result as zana l/abnormal. [facility] HospitalOrznwbeDVFEESMKUM2705-48-82 18:51:00 Test Item Value Reference Range Interpretation Comments UA RBC (test code = 1 See_Comment N [Automa thelma message] The UA RBC) system which ge nerated this result transmit thelma reference range : <=2. The reference range was not used to interpr et this result as zana l/abnormal. [facility] HospitalKihllukFDBKJFWTMY3429-43-15 18:51:00 Test Item Value Reference Range Interpretation Comments UA Leuk Est (test Moderate A code = UA Leuk Est) *ABN*(06/22/2012 13:51:00) [facility] HospitalBftnsrpCPCUYMWJOC3532-32-09 18:51:00 Test Item Value Reference Range Interpretation Comments UA Blood (test code = Negative (06/22/2012 N UA Blood) 13:51:00) [facility] HospitalHwcgvwbGUNROLBFYF4441-77-43 18:51:00 Test Item Value Reference Range Interpretation Comments UA Nitrite (test code Negative (06/22/2012 N = UA Nitrite) 13:51:00) [facility] HospitalOjqpzlzCPBUXHRHXZ6042-29-37 18:51:00 Test Item Value Reference Range Interpretation Comments UA Ketones (test code Negative mg/dL = UA Ketones) *NA*(06/22/2012 13:51:00) [facility] HospitalWxstnepCKUPIWUNHY0229-41-95 18:51:00 Test Item Value Reference Range Interpretation Comments UA Bili (test code = Negative *NA*(06/22/2012 UA Bili) 13:51:00) [facility] HospitalYgmtocaEHPASKWRAS9282-33-13 18:51:00 Test Item Value Reference Range Interpretation Comments UA Glucose (test code = 500 mg/dL A UA Glucose) *ABN*(06/22/2012 13:51:00) [facility]inteDtnqiwkYQNCFYVCUR6504-31-95 18:51:00 Test Item Value Reference Range Interpretation Comments UA pH (test code = UA pH) 6.0 5.0-8.0 N [facility] PointeInfwnbbWTMKXVHRPD7660-71-46 18:51:00 Test Item Value Reference Range Interpretation Comments UA Protein (test code Negative mg/dL N = UA Protein) (06/22/2012 13:51:00) [facility] PointeGryuzqaJTSCXPHSVV9126-85-50 18:51:00 Test Item Value Reference Range Interpretation Comments UA Spec Grav (test code = UA Spec Grav) 1.008 N [facility] PointeFzgxbsdLCDCUPINHC3020-60-84 18:51:00 Test Item Value Reference Range Interpretation Comments UA Color (test code = Yellow *NA*(06/22/2012 UA Color) 13:51:00) [facility] HospitalOlhiqqcXEIDKNZIUM9698-95-32 18:51:00 Test Item Value Reference Range Interpretation Comments UA Turbidity (test code = Clear (06/22/2012 N UA Turbidity) 13:51:00) [facility]HdrqgznXthgtthwgiwc1778-89-04 18:51:00 Test Item Value Reference Range Interpretation Comments Culture: Urine (test code = Culture: Urine) [facility]MujdxwrJMJWUJSJU2486-08-66 18:28:00 Test Item Value Reference Range Interpretation Comments eGFR (test code = eGFR) 52 [facility]andDkinzocILQMPFFZU7455-63-26 18:28:00 Test Item Value Reference Range Interpretation Comments Alk Phos (test code = Alk Phos) 50 39-136 N [facility]andYzxkbzcOQJJISTJS3383-70-59 18:28:00 Test Item Value Reference Range Interpretation Comments ALT (test code = ALT) 25 See_Comment N [Auto mated message] The system which ge nerated this result transmit thelma reference range : <=65. The reference range was not used to interpr et this result as zana l/abnormal. [facility]andBvcjeteSIBVLBGMI0990-53-48 18:28:00 Test Item Value Reference Range Interpretation Comments AST (test code = AST) 9 See_Comment N [Auto mated message] The system which ge nerated this result transmit thelma reference range : <=37. The reference range was not used to interpr et this result as zana l/abnormal. [facility]andZetdwqzBAEQCHQBA0991-04-72 18:28:00 Test Item Value Reference Range Interpretation Comments AGAP (test code = AGAP) 10.7 10.0-20.0 N [facility]andKbskvblMOYNXFAJN3747-08-00 18:28:00 Test Item Value Reference Range Interpretation Comments Bili Total (test code = Bili Total) 0.2 0.2-1.3 N [facility]andYwaobogKMIJTYYHM4847-60-47 18:28:00 Test Item Value Reference Range Interpretation Comments B/C Ratio (test code = B/C Ratio) 13 6-25 N [facility]andRylekflDINEFVKPL1699-94-51 18:28:00 Test Item Value Reference Range Interpretation Comments Globulin (test code = Globulin) 4.1 2.0-4.0 H [facility]andAlqzekyAAIZYQLBT2610-41-27 18:28:00 Test Item Value Reference Range Interpretation Comments A/G Ratio (test code = A/G Ratio) 0.9 0.7-1.6 N [facility]andEiofkdqOSBFWLKIT8480-23-60 18:28:00 Test Item Value Reference Range Interpretation Comments Albumin Lvl (test code = Albumin Lvl) 3.6 3.5-5.0 N [facility]andHemnfrbDGKYCDZFY7164-96-36 18:28:00 Test Item Value Reference Range Interpretation Comments Potassium Lvl (test code = Potassium 3.7 3.5-5.1 N Lvl) [facility]andMaxuxbzIDNQGLQKQ2278-94-52 18:28:00 Test Item Value Reference Range Interpretation Comments Chloride Lvl (test code = Chloride Lvl) 101 95-109 N [facility]andHjdcwdnIDVSRRHKE9367-72-55 18:28:00 Test Item Value Reference Range Interpretation Comments BUN (test code = BUN) 14 7-22 N [facility]andDzxfpcfDFTFKAAKR7544-05-81 18:28:00 Test Item Value Reference Range Interpretation Comments Glucose Lvl (test code = Glucose Lvl) 236 70-99 H [facility]andVmmjhkwGULASEFOS5463-52-12 18:28:00 Test Item Value Reference Range Interpretation Comments Creatinine Lvl (test code = Creatinine 1.1 0.5-1.4 N Lvl) [facility]andZgkcwsdCZXAMKUNK2565-99-81 18:28:00 Test Item Value Reference Range Interpretation Comments Sodium Lvl (test code = Sodium Lvl) 138 135-145 N [facility]andHixesecOTCMFNJJG3045-18-70 18:28:00 Test Item Value Reference Range Interpretation Comments Calcium Lvl (test code = Calcium Lvl) 9.3 8.5-10.5 N [facility]ellandDaknmgcFWEGAACIE9309-95-89 18:28:00 Test Item Value Reference Range Interpretation Comments CO2 (test code = CO2) 30 24-32 N [facility]andTfojoixRXCKPVWTV0677-86-05 18:28:00 Test Item Value Reference Range Interpretation Comments Total Protein (test code = Total 7.7 6.4-8.4 N Protein) [facility]andRwpnpoyHNRQZHGJB1860-84-53 18:28:00 Test Item Value Reference Range Interpretation Comments eGFR (test code = eGFR) 52 [facility]andLqtezrkJGFILDUUR2396-55-12 18:28:00 Test Item Value Reference Range Interpretation Comments Alk Phos (test code = Alk Phos) 50 39-136 N [facility]andSucwftyDCPMZLNEB4222-67-76 18:28:00 Test Item Value Reference Range Interpretation Comments ALT (test code = ALT) 25 See_Comment N [Auto mated message] The system which ge nerated this result transmit thelma reference range : <=65. The reference range was not used to interpr et this result as zana l/abnormal. [facility]andFzrjupoNOGODTPEH2215-91-93 18:28:00 Test Item Value Reference Range Interpretation Comments AST (test code = AST) 9 See_Comment N [Auto mated message] The system which ge nerated this result transmit thelma reference range : <=37. The reference range was not used to interpr et this result as zana l/abnormal. [facility]andUeggescKXKRVTWZQ7497-05-45 18:28:00 Test Item Value Reference Range Interpretation Comments AGAP (test code = AGAP) 10.7 10.0-20.0 N [facility]andOyliahsRJOMTJXEI9196-90-46 18:28:00 Test Item Value Reference Range Interpretation Comments Bili Total (test code = Bili Total) 0.2 0.2-1.3 N [facility]andYcykknqBTCKABMDM7684-23-52 18:28:00 Test Item Value Reference Range Interpretation Comments B/C Ratio (test code = B/C Ratio) 13 6-25 N [facility]andPeymkhhBMTUTGJTR4810-63-34 18:28:00 Test Item Value Reference Range Interpretation Comments Globulin (test code = Globulin) 4.1 2.0-4.0 H [facility]andOycwrqpRMPRBFMTR6757-70-08 18:28:00 Test Item Value Reference Range Interpretation Comments A/G Ratio (test code = A/G Ratio) 0.9 0.7-1.6 N [facility]andJemeefnWQVXOXTCW7046-10-06 18:28:00 Test Item Value Reference Range Interpretation Comments Albumin Lvl (test code = Albumin Lvl) 3.6 3.5-5.0 N [facility]andJpsplrhAQHEESVTQ5931-59-31 18:28:00 Test Item Value Reference Range Interpretation Comments Potassium Lvl (test code = Potassium 3.7 3.5-5.1 N Lvl) [facility]andFgyuyolXLLTFHCNV1059-48-77 18:28:00 Test Item Value Reference Range Interpretation Comments Chloride Lvl (test code = Chloride Lvl) 101 95-109 N [facility]andDsniwpsCDRWEUMMY7124-61-63 18:28:00 Test Item Value Reference Range Interpretation Comments BUN (test code = BUN) 14 7-22 N [facility]andOlejkycCZADZAJLL9494-75-01 18:28:00 Test Item Value Reference Range Interpretation Comments Glucose Lvl (test code = Glucose Lvl) 236 70-99 H [facility]andDqvzrqfAMNEOMIBB9636-14-47 18:28:00 Test Item Value Reference Range Interpretation Comments Creatinine Lvl (test code = Creatinine 1.1 0.5-1.4 N Lvl) [facility]andEogyhgdPIXKOVXYN8097-29-80 18:28:00 Test Item Value Reference Range Interpretation Comments Sodium Lvl (test code = Sodium Lvl) 138 135-145 N [facility]andPcpwkpaFLLYGJNGV6514-80-24 18:28:00 Test Item Value Reference Range Interpretation Comments Calcium Lvl (test code = Calcium Lvl) 9.3 8.5-10.5 N [facility]andAktgholFLVFQGZJF0595-79-76 18:28:00 Test Item Value Reference Range Interpretation Comments CO2 (test code = CO2) 30 24-32 N [facility]andSyxobwhVHKTZGEJW5163-93-76 18:28:00 Test Item Value Reference Range Interpretation Comments Total Protein (test code = Total 7.7 6.4-8.4 N Protein) [facility] GLUCOSE [id number] 16:05:00 Test Item Value Reference Range Interpretation Comments Gluc POC Lifscn (test code = Gluc POC 160 70-99 H Lifscn) [facility] GLUCOSE JEZKSZB3691-10-96 16:05:00 Test Item Value Reference Range Interpretation Comments Comment1 (test code = Comment1) Repeat Test [facility] GLUCOSE UMRMIBB6509-27-51 16:05:00 Test Item Value Reference Range Interpretation Comments Gluc POC Lifscn (test code = Gluc POC 160 70-99 H Lifscn) [facility] GLUCOSE QPNLCPM3144-41-70 16:05:00 Test Item Value Reference Range Interpretation Comments Comment1 (test code = Comment1) Repeat Test [facility] GLUCOSE [id number] 12:08:00 Test Item Value Reference Range Interpretation Comments Gluc POC Lifscn (test code = Gluc POC 129 70-99 H Lifscn) [facility] GLUCOSE [id number] 12:08:00 Test Item Value Reference Range Interpretation Comments Gluc POC Lifscn (test code = Gluc POC 129 70-99 H Lifscn) [facility] CenterKcveptwQSLIFFECHA2279-79-83 09:10:00 Test Item Value Reference Range Interpretation Comments RBC (test code = RBC) 3.93 4.20-5.40 L [facility] CenterFzwmpztJBTWSJEVGG3617-19-64 09:10:00 Test Item Value Reference Range Interpretation Comments Hct (test code = Hct) 32.7 36.0-48.0 L [facility] CenterVvyrbgqZSMNXHTPQQ5721-41-05 09:10:00 Test Item Value Reference Range Interpretation Comments WBC (test code = WBC) 7.3 3.7-10.4 N [facility] CenterOhbskwlSSGYVFJUTO5628-95-37 09:10:00 Test Item Value Reference Range Interpretation Comments MCV (test code = MCV) 83.2 81.0-99.0 N [facility] CenterHaudovbYSRRKCWONE0343-42-96 09:10:00 Test Item Value Reference Range Interpretation Comments MCH (test code = MCH) 28.5 pg 27.0-31.0 N [facility] CenterZaalhwfOIRHKPIIPO7067-22-00 09:10:00 Test Item Value Reference Range Interpretation Comments RDW (test code = RDW) 13.9 11.5-14.5 N [facility] CenterRdpmwtuFZHURJRCDJ4986-24-41 09:10:00 Test Item Value Reference Range Interpretation Comments MCHC (test code = MCHC) 34.2 32.0-36.0 N [facility] CenterCwziaoeRILSBHTAQD1893-64-42 09:10:00 Test Item Value Reference Range Interpretation Comments MPV (test code = MPV) 8.5 7.4-10.4 N [facility] CenterKksxmfvGXKBBBQXKJ6880-76-05 09:10:00 Test Item Value Reference Range Interpretation Comments Platelet (test code = Platelet) 206 133-450 N [facility] CenterLingoqdHWKAOZGJSL9958-57-28 09:10:00 Test Item Value Reference Range Interpretation Comments Hgb (test code = Hgb) 11.2 12.0-16.0 L [facility] CenterNrgvmjpTSKTBRXYZG0448-61-99 09:10:00 Test Item Value Reference Range Interpretation Comments Basophils # (test code 0.1 See_Comment N [Aut omated message] The = Basophils #) system which generated this result tra nsmitted reference range : <=0.2. The reference r eric was not used to int erpret this result as normal/abnormal . [facility] CenterWcructkLXAIGMUHXT4289-69-68 09:10:00 Test Item Value Reference Range Interpretation Comments Monocytes (test code = Monocytes) 9.3 2.0-12.0 N [facility] CenterOmjoqhvFGEFMIBHKT7777-19-03 09:10:00 Test Item Value Reference Range Interpretation Comments Segs-Bands # (test code = Segs-Bands #) 3.6 1.5-8.1 N [facility] CenterDjatebuCLZOWZXSAR1067-87-21 09:10:00 Test Item Value Reference Range Interpretation Comments Monocytes # (test code 0.7 See_Comment N [Aut omated message] The = Monocytes #) system which generated this result tra nsmitted reference range : <=0.8. The reference r eric was not used to int erpret this result as normal/abnormal . [facility] CenterOwfmhkjTUEXOWZQZN4884-16-06 09:10:00 Test Item Value Reference Range Interpretation Comments Eosinophils # (test code 0.5 See_Comment N [A utomated message] The = Eosinophils #) system whic h generated this result tra nsmitted reference range : <=0.5. The reference r eric was not used to int erpret this result as normal/abnormal . [facility] CenterYqehkifQFQBUIEBKZ8820-98-84 09:10:00 Test Item Value Reference Range Interpretation Comments Segs (test code = Segs) 49.3 45.0-75.0 N [facility] CenterWrxbvnpRXYPNSOEUB6484-80-82 09:10:00 Test Item Value Reference Range Interpretation Comments Lymphocytes # (test code = Lymphocytes 2.5 1.0-5.5 N #) [facility] CenterDqnqxljLDHMAGPHWB7343-99-99 09:10:00 Test Item Value Reference Range Interpretation Comments Eosinophils (test code = 6.8 See_Comment H [A utomated message] The Eosinophils) system which ge nerated this result tra nsmitted reference range : <=4.0. The reference r eric was not used to int erpret this result as normal/abnormal . [facility] CenterDwxprhuQRETOEPCAN5653-86-49 09:10:00 Test Item Value Reference Range Interpretation Comments Basophils (test code = 1.0 See_Comment N [Aut omated message] The Basophils) system which ge nerated this result tra nsmitted reference range : <=1.0. The reference r eric was not used to int erpret this result as normal/abnormal . [facility] CenterYlkajihFGIGPBGHTK3572-57-82 09:10:00 Test Item Value Reference Range Interpretation Comments Lymphocytes (test code = Lymphocytes) 33.6 20.0-40.0 N [facility] CenterObohwmjTOCLCGUIOH2512-31-47 09:10:00 Test Item Value Reference Range Interpretation Comments RBC (test code = RBC) 3.93 4.20-5.40 L [facility] CenterYqqzotyLWYYKQWKWQ1112-13-90 09:10:00 Test Item Value Reference Range Interpretation Comments Hct (test code = Hct) 32.7 36.0-48.0 L [facility] CenterJkjismnJUPKWUPJYE4315-95-13 09:10:00 Test Item Value Reference Range Interpretation Comments WBC (test code = WBC) 7.3 3.7-10.4 N [facility] CenterGktcoixQEJHRQWWRM4303-44-18 09:10:00 Test Item Value Reference Range Interpretation Comments MCV (test code = MCV) 83.2 81.0-99.0 N [facility] CenterShpxxemANPPBGBRXV1132 09:10:00 Test Item Value Reference Range Interpretation Comments MCH (test code = MCH) 28.5 pg 27.0-31.0 N [facility] CenterZtcldjbIBGQQZTAPD1720-68-45 09:10:00 Test Item Value Reference Range Interpretation Comments RDW (test code = RDW) 13.9 11.5-14.5 N [facility] CenterJjehxgeVXNNFCOPFU5825-81-64 09:10:00 Test Item Value Reference Range Interpretation Comments MCHC (test code = MCHC) 34.2 32.0-36.0 N [facility] CenterZgunhapAHUPTYNSGX9524-55-66 09:10:00 Test Item Value Reference Range Interpretation Comments MPV (test code = MPV) 8.5 7.4-10.4 N [facility] CenterBodypfpYCHAQAWODG5805-66-34 09:10:00 Test Item Value Reference Range Interpretation Comments Platelet (test code = Platelet) 206 133-450 N [facility] CenterHmkfftdEKVPGWOQWY4157-43-61 09:10:00 Test Item Value Reference Range Interpretation Comments Hgb (test code = Hgb) 11.2 12.0-16.0 L [facility] CenterBbfmrtxQDTORNWYCW7440-58-78 09:10:00 Test Item Value Reference Range Interpretation Comments Basophils # (test code 0.1 See_Comment N [Aut omated message] The = Basophils #) system which generated this result tra nsmitted reference range : <=0.2. The reference r eric was not used to int erpret this result as normal/abnormal . [facility] CenterKvzyxtiZNEVLGVYCA1509-77-31 09:10:00 Test Item Value Reference Range Interpretation Comments Monocytes (test code = Monocytes) 9.3 2.0-12.0 N [facility] CenterIbmohcwZVZOBDLBCN7200-19-19 09:10:00 Test Item Value Reference Range Interpretation Comments Segs-Bands # (test code = Segs-Bands #) 3.6 1.5-8.1 N [facility] CenterEjvidlrGTHGXMRSPF5856-50-61 09:10:00 Test Item Value Reference Range Interpretation Comments Monocytes # (test code 0.7 See_Comment N [Aut omated message] The = Monocytes #) system which generated this result tra nsmitted reference range : <=0.8. The reference r eric was not used to int erpret this result as normal/abnormal . [facility] CenterRxavjvvCRLHRXKJEX8334-71-63 09:10:00 Test Item Value Reference Range Interpretation Comments Eosinophils # (test code 0.5 See_Comment N [A utomated message] The = Eosinophils #) system whic h generated this result tra nsmitted reference range : <=0.5. The reference r eric was not used to int erpret this result as normal/abnormal . [facility] CenterXdylwovSZDICPFDHD4263-72-26 09:10:00 Test Item Value Reference Range Interpretation Comments Segs (test code = Segs) 49.3 45.0-75.0 N [facility] CenterXbjpvinUASHINZHZG2907-49-96 09:10:00 Test Item Value Reference Range Interpretation Comments Lymphocytes # (test code = Lymphocytes 2.5 1.0-5.5 N #) [facility] CenterQfmgmjkXUITPYABPP7399-93-87 09:10:00 Test Item Value Reference Range Interpretation Comments Eosinophils (test code = 6.8 See_Comment H [A utomated message] The Eosinophils) system which ge nerated this result tra nsmitted reference range : <=4.0. The reference r eric was not used to int erpret this result as normal/abnormal . [facility] CenterPzvugtsMMYRKIQNLU7310-67-27 09:10:00 Test Item Value Reference Range Interpretation Comments Basophils (test code = 1.0 See_Comment N [Aut omated message] The Basophils) system which ge nerated this result tra nsmitted reference range : <=1.0. The reference r eric was not used to int erpret this result as normal/abnormal . [facility] CenterBiwniuaHKMHSXTUUD3162-96-45 09:10:00 Test Item Value Reference Range Interpretation Comments Lymphocytes (test code = Lymphocytes) 33.6 20.0-40.0 N [facility] GLUCOSE XWMLAXT2046-00-28 02:13:00 Test Item Value Reference Range Interpretation Comments Comment1 (test code = Comment1) Notify RN [facility] GLUCOSE WNUWDKH9828-88-89 02:13:00 Test Item Value Reference Range Interpretation Comments Gluc POC Lifscn (test code = Gluc POC 146 70-99 H Lifscn) [facility] GLUCOSE PMIASVN6027-07-31 02:13:00 Test Item Value Reference Range Interpretation Comments Comment1 (test code = Comment1) Notify RN [facility] GLUCOSE MSSVCJX7069-64-25 02:13:00 Test Item Value Reference Range Interpretation Comments Gluc POC Lifscn (test code = Gluc POC 146 70-99 H Lifscn) [facility] CenterQawuelsTUYKTNDYW5742-72-47 09:45:00 Test Item Value Reference Range Interpretation Comments pO2 Art (test code = pO2 Art) 62 80-100 L [facility]andOefaklgZPOMVQATA1840-65-76 09:45:00 Test Item Value Reference Range Interpretation Comments HCO3 Art (test code = HCO3 Art) 30 22-26 H [facility]andVbbpaefPIVLTZAPK4251-27-81 09:45:00 Test Item Value Reference Range Interpretation Comments pCO2 Art (test code = pCO2 Art) 54 35-45 H [facility]andOnpjxjbSBQEGZTJO1555-57-13 09:45:00 Test Item Value Reference Range Interpretation Comments BE Art (test code = 4 See_Comment H [Automa thelma message] The BE Art) system which ge nerated this result transmit thelma reference range : <=2. The reference range was not used to interpr et this result as zana l/abnormal. [facility]andSgcpwllKZWKDBAXR5158-39-75 09:45:00 Test Item Value Reference Range Interpretation Comments O2 Sat Art (test code = O2 Sat Art) 92.0 95.0-100.0 L [facility]andHhmukfjSIUZCJLRE9105-83-47 09:45:00 Test Item Value Reference Range Interpretation Comments pH Art (test code = pH Art) 7.36 7.35-7.45 N [facility]andZutmbnoWSQDPOQTY6504-00-25 09:45:00 Test Item Value Reference Range Interpretation Comments Allens Art (test code = N/A (06/10/2012 N Allens Art) 04:45:00) [facility]andHqqooodUMUIHTHHW7880-99-15 09:45:00 Test Item Value Reference Range Interpretation Comments Mode Art (test code = Mode Art) Room Air [facility]andXzujnzsKHYOXPMVU3577-99-17 09:45:00 Test Item Value Reference Range Interpretation Comments Site Art (test code = A Line (06/10/2012 N Site Art) 04:45:00) [facility]andGeugdmdQEITWBYHP5166-12-44 09:45:00 Test Item Value Reference Range Interpretation Comments FiO2 Art (test code = FiO2 Art) 21.0 [facility]andDxgahjcXAMXDEHSO8041-41-48 09:45:00 Test Item Value Reference Range Interpretation Comments AGAP (test code = AGAP) 8.1 10.0-20.0 L [facility]andPuwdoecOVZOZSKNW1684-75-56 09:45:00 Test Item Value Reference Range Interpretation Comments Chloride Lvl (test code = Chloride Lvl) 107 95-109 N [facility]andYrzldzsADCXVCZRS2765-32-48 09:45:00 Test Item Value Reference Range Interpretation Comments Calcium Lvl (test code = Calcium Lvl) 8.4 8.5-10.5 L [facility]andKswjkcbWUCYUSGLP5598-75-84 09:45:00 Test Item Value Reference Range Interpretation Comments CO2 (test code = CO2) 30 24-32 N [facility]andDxzvspgDCQEDZMOQ4994-73-04 09:45:00 Test Item Value Reference Range Interpretation Comments BUN (test code = BUN) 8 7-22 N [facility]andSrsqrtoHJTFGOLCH0717-21-19 09:45:00 Test Item Value Reference Range Interpretation Comments Creatinine Lvl (test code = Creatinine 0.7 0.5-1.4 N Lvl) [facility]andDbnnozvVSFTDPLTT3948-89-93 09:45:00 Test Item Value Reference Range Interpretation Comments Sodium Lvl (test code = Sodium Lvl) 141 135-145 N [facility]andEbvvkmyHFJSLAEQM0946-25-38 09:45:00 Test Item Value Reference Range Interpretation Comments Potassium Lvl (test code = Potassium 4.1 3.5-5.1 N Lvl) [facility]andTjflhgfEVXQOWDIO4136-60-71 09:45:00 Test Item Value Reference Range Interpretation Comments Glucose Lvl (test code = Glucose Lvl) 114 70-99 H [facility] CenterRhroucqMOXLBJXIKF9442-96-14 09:45:00 Test Item Value Reference Range Interpretation Comments MCH (test code = MCH) 28.2 pg 27.0-31.0 N [facility] CenterKwfzhfzMSIUROQDWC5484-83-94 09:45:00 Test Item Value Reference Range Interpretation Comments MPV (test code = MPV) 8.7 7.4-10.4 N [facility] CenterLgrdhitBRVAAYZHHX2788-74-93 09:45:00 Test Item Value Reference Range Interpretation Comments RDW (test code = RDW) 13.7 11.5-14.5 N [facility] CenterAiqakxgGQVGHQEUHA3477-45-50 09:45:00 Test Item Value Reference Range Interpretation Comments MCHC (test code = MCHC) 33.8 32.0-36.0 N [facility] CenterZjvsypwGDQTNDLSFI2211-14-00 09:45:00 Test Item Value Reference Range Interpretation Comments Platelet (test code = Platelet) 200 133-450 N [facility] CenterMkkaidkMGCDKSLZYU7390-32-16 09:45:00 Test Item Value Reference Range Interpretation Comments MCV (test code = MCV) 83.6 81.0-99.0 N [facility] CenterZqcsivwRTBNJSMGSH3704-91-13 09:45:00 Test Item Value Reference Range Interpretation Comments Hgb (test code = Hgb) 10.4 12.0-16.0 L [facility] CenterJsqyygdJMZFIBPXPI1969-63-12 09:45:00 Test Item Value Reference Range Interpretation Comments Hct (test code = Hct) 30.9 36.0-48.0 L [facility] CenterWclabvnGUWBTGUIRW0882-15-84 09:45:00 Test Item Value Reference Range Interpretation Comments RBC (test code = RBC) 3.70 4.20-5.40 L [facility] CenterRwxpftpEDWDVICGXZ7767-63-18 09:45:00 Test Item Value Reference Range Interpretation Comments WBC (test code = WBC) 8.4 3.7-10.4 N [facility] CenterQnbryitBQOTIXJXYN7222-79-86 09:45:00 Test Item Value Reference Range Interpretation Comments Eosinophils # (test code 0.5 See_Comment N [A utomated message] The = Eosinophils #) system whic h generated this result tra nsmitted reference range : <=0.5. The reference r eric was not used to int erpret this result as normal/abnormal . [facility] CenterRqmxoiiZOAVOGQABF0616-08-05 09:45:00 Test Item Value Reference Range Interpretation Comments Basophils # (test code 0.1 See_Comment N [Aut omated message] The = Basophils #) system which generated this result tra nsmitted reference range : <=0.2. The reference r eric was not used to int erpret this result as normal/abnormal . [facility] CenterNiogykpOZTKKLHMDL6426-51-90 09:45:00 Test Item Value Reference Range Interpretation Comments Segs-Bands # (test code = Segs-Bands #) 4.6 1.5-8.1 N [facility] CenterLbfyfltZTQBJSRFKI1324-39-14 09:45:00 Test Item Value Reference Range Interpretation Comments Monocytes (test code = Monocytes) 8.5 2.0-12.0 N [facility] CenterIwgyivfKOELXHPFQL1405-10-97 09:45:00 Test Item Value Reference Range Interpretation Comments Eosinophils (test code = 6.1 See_Comment H [A utomated message] The Eosinophils) system which ge nerated this result tra nsmitted reference range : <=4.0. The reference r eric was not used to int erpret this result as normal/abnormal . [facility] CenterDlpuaklCIAUXQTRVR5894-10-90 09:45:00 Test Item Value Reference Range Interpretation Comments Basophils (test code = 0.7 See_Comment N [Aut omated message] The Basophils) system which ge nerated this result tra nsmitted reference range : <=1.0. The reference r eric was not used to int erpret this result as normal/abnormal . [facility] CenterFfodfxoNVUFUNCTGJ5600-99-15 09:45:00 Test Item Value Reference Range Interpretation Comments Monocytes # (test code 0.7 See_Comment N [Aut omated message] The = Monocytes #) system which generated this result tra nsmitted reference range : <=0.8. The reference r eric was not used to int erpret this result as normal/abnormal . [facility] CenterJpbfbmgGPGKLNLTOX2952-78-50 09:45:00 Test Item Value Reference Range Interpretation Comments Lymphocytes # (test code = Lymphocytes 2.5 1.0-5.5 N #) [facility] CenterPlptjvbIFRAMUNFPL0362-86-18 09:45:00 Test Item Value Reference Range Interpretation Comments Segs (test code = Segs) 54.6 45.0-75.0 N [facility] CenterOatnzkwCUFMQZTJOB8622-25-45 09:45:00 Test Item Value Reference Range Interpretation Comments Lymphocytes (test code = Lymphocytes) 30.1 20.0-40.0 N [facility]andNiglrpdOYFMKMNCM4875-77-89 09:45:00 Test Item Value Reference Range Interpretation Comments pO2 Art (test code = pO2 Art) 62 80-100 L [facility]andAqhmrsgXVSNMOYDM9474-89-59 09:45:00 Test Item Value Reference Range Interpretation Comments HCO3 Art (test code = HCO3 Art) 30 22-26 H [facility]andOnjwubfIUWIDHQFU3343-46-21 09:45:00 Test Item Value Reference Range Interpretation Comments pCO2 Art (test code = pCO2 Art) 54 35-45 H [facility]andIlobsdkCGCOGRCQL4366-85-70 09:45:00 Test Item Value Reference Range Interpretation Comments BE Art (test code = 4 See_Comment H [Automa thelma message] The BE Art) system which ge nerated this result transmit thelma reference range : <=2. The reference range was not used to interpr et this result as zana l/abnormal. [facility] FallsFupwuveFGTVLYIMS8862-65-45 09:45:00 Test Item Value Reference Range Interpretation Comments O2 Sat Art (test code = O2 Sat Art) 92.0 95.0-100.0 L [facility]andFusnoocJUWMXIEGW5288-10-72 09:45:00 Test Item Value Reference Range Interpretation Comments pH Art (test code = pH Art) 7.36 7.35-7.45 N [facility] FallsLnbkwynQRFLCGLOU5708-48-97 09:45:00 Test Item Value Reference Range Interpretation Comments Allens Art (test code = N/A (06/10/2012 N Allens Art) 04:45:00) [facility]andSuihzpdMWYFPTTJZ6105-72-74 09:45:00 Test Item Value Reference Range Interpretation Comments Mode Art (test code = Mode Art) Room Air [facility] FallsHfiekvkCLPHRUZYJ5788-51-10 09:45:00 Test Item Value Reference Range Interpretation Comments Site Art (test code = A Line (06/10/2012 N Site Art) 04:45:00) [facility] FallsTjjutahUVASNZFKL8272-78-15 09:45:00 Test Item Value Reference Range Interpretation Comments FiO2 Art (test code = FiO2 Art) 21.0 [facility] FallsAjjbxevFNOFQBDYC3277-50-94 09:45:00 Test Item Value Reference Range Interpretation Comments AGAP (test code = AGAP) 8.1 10.0-20.0 L [facility] FallsHwphlgkLHPHFRNGH8944-34-25 09:45:00 Test Item Value Reference Range Interpretation Comments Chloride Lvl (test code = Chloride Lvl) 107 95-109 N [facility] FallsRtncqcgRLFZJKHXL4017-73-58 09:45:00 Test Item Value Reference Range Interpretation Comments Calcium Lvl (test code = Calcium Lvl) 8.4 8.5-10.5 L [facility] FallsAqxqtwfCWEYGNHSG5621-47-72 09:45:00 Test Item Value Reference Range Interpretation Comments CO2 (test code = CO2) 30 24-32 N [facility] FallsNvzshykDBMVXCAAK2008-99-50 09:45:00 Test Item Value Reference Range Interpretation Comments BUN (test code = BUN) 8 7-22 N [facility] FallsKogatgeRONVPPAVE5997-73-83 09:45:00 Test Item Value Reference Range Interpretation Comments Creatinine Lvl (test code = Creatinine 0.7 0.5-1.4 N Lvl) [facility]andEeknlsqDPYSRSONL3404-88-25 09:45:00 Test Item Value Reference Range Interpretation Comments Sodium Lvl (test code = Sodium Lvl) 141 135-145 N [facility]andVyhlcmqXQCJPWPJZ6494-68-36 09:45:00 Test Item Value Reference Range Interpretation Comments Potassium Lvl (test code = Potassium 4.1 3.5-5.1 N Lvl) [facility]andHrckrugERIOXNNMM2497-38-06 09:45:00 Test Item Value Reference Range Interpretation Comments Glucose Lvl (test code = Glucose Lvl) 114 70-99 H [facility] CenterJvksleyOLVIRVDMZP8285-06-69 09:45:00 Test Item Value Reference Range Interpretation Comments MCH (test code = MCH) 28.2 pg 27.0-31.0 N [facility] CenterOawrrieBFNQOZZYUI7708-27-49 09:45:00 Test Item Value Reference Range Interpretation Comments MPV (test code = MPV) 8.7 7.4-10.4 N [facility] CenterHbwvyjwNKJPPXEKXT4734-90-31 09:45:00 Test Item Value Reference Range Interpretation Comments RDW (test code = RDW) 13.7 11.5-14.5 N [facility] CenterLhmfsohDRQCCIPDEH9505-57-24 09:45:00 Test Item Value Reference Range Interpretation Comments MCHC (test code = MCHC) 33.8 32.0-36.0 N [facility] CenterGvboqpzHKXDFIGZRS5096-90-43 09:45:00 Test Item Value Reference Range Interpretation Comments Platelet (test code = Platelet) 200 133-450 N [facility] CenterBjhfbelUAGCSTNQPV5868-18-52 09:45:00 Test Item Value Reference Range Interpretation Comments MCV (test code = MCV) 83.6 81.0-99.0 N [facility] CenterHlshkthHSNMQJIIYZ6498-56-53 09:45:00 Test Item Value Reference Range Interpretation Comments Hgb (test code = Hgb) 10.4 12.0-16.0 L [facility] CenterCkdgdmtSLZXINQERM5256-62-28 09:45:00 Test Item Value Reference Range Interpretation Comments Hct (test code = Hct) 30.9 36.0-48.0 L [facility] CenterXfxxplkXBHISDXQRU8256-61-34 09:45:00 Test Item Value Reference Range Interpretation Comments RBC (test code = RBC) 3.70 4.20-5.40 L [facility] CenterXtdrpjzXKCZGROYWM8902-04-87 09:45:00 Test Item Value Reference Range Interpretation Comments WBC (test code = WBC) 8.4 3.7-10.4 N [facility] CenterGkpgbakCJDSTOLKMB5166-01-81 09:45:00 Test Item Value Reference Range Interpretation Comments Eosinophils # (test code 0.5 See_Comment N [A utomated message] The = Eosinophils #) system wh h generated this result tra nsmitted reference range : <=0.5. The reference r eric was not used to int erpret this result as normal/abnormal . [facility] CenterIdvaykdCUYGVQOUBF9006-13-07 09:45:00 Test Item Value Reference Range Interpretation Comments Basophils # (test code 0.1 See_Comment N [Aut omated message] The = Basophils #) system which generated this result tra nsmitted reference range : <=0.2. The reference r eric was not used to int erpret this result as normal/abnormal . [facility] CenterKtznfktVMOOHLUOPG2569-61-99 09:45:00 Test Item Value Reference Range Interpretation Comments Segs-Bands # (test code = Segs-Bands #) 4.6 1.5-8.1 N [facility] CenterMnbokduVDBQXMQMYT8753-02-78 09:45:00 Test Item Value Reference Range Interpretation Comments Monocytes (test code = Monocytes) 8.5 2.0-12.0 N [facility] CenterVpiidyzWALLPEZLUS0589-31-00 09:45:00 Test Item Value Reference Range Interpretation Comments Eosinophils (test code = 6.1 See_Comment H [A utomated message] The Eosinophils) system which ge nerated this result tra nsmitted reference range : <=4.0. The reference r eric was not used to int erpret this result as normal/abnormal . [facility] CenterSjhotrbLJOOCUQXDF1803-89-33 09:45:00 Test Item Value Reference Range Interpretation Comments Basophils (test code = 0.7 See_Comment N [Aut omated message] The Basophils) system which ge nerated this result tra nsmitted reference range : <=1.0. The reference r eric was not used to int erpret this result as normal/abnormal . [facility] CenterKxmlcazQEFBHCYPHY7547-91-99 09:45:00 Test Item Value Reference Range Interpretation Comments Monocytes # (test code 0.7 See_Comment N [Aut omated message] The = Monocytes #) system which generated this result tra nsmitted reference range : <=0.8. The reference r eric was not used to int erpret this result as normal/abnormal . [facility] CenterLckmxuhQXLGXLBUDX1443-06-00 09:45:00 Test Item Value Reference Range Interpretation Comments Lymphocytes # (test code = Lymphocytes 2.5 1.0-5.5 N #) [facility] CenterWlcziwrDHCKVPWKIF8957-41-53 09:45:00 Test Item Value Reference Range Interpretation Comments Segs (test code = Segs) 54.6 45.0-75.0 N [facility] CenterImtwrqxUVPJXDWPRN0555-07-60 09:45:00 Test Item Value Reference Range Interpretation Comments Lymphocytes (test code = Lymphocytes) 30.1 20.0-40.0 N [facility] GLUCOSE KUXFXDJ0960-50-07 01:43:00 Test Item Value Reference Range Interpretation Comments Comment1 (test code = Comment1) Notify RN [facility] GLUCOSE TLRHOQC7582-79-94 01:43:00 Test Item Value Reference Range Interpretation Comments Comment1 (test code = Comment1) Notify RN [facility]andTztpaxtGFVUXBBIT9352-65-27 17:10:00 Test Item Value Reference Range Interpretation Comments BE Art (test code = -3 See_Comment L [Automa thelma message] The BE Art) system which ge nerated this result transmit thelma reference range : <=2. The reference range was not used to interpr et this result as zana l/abnormal. [facility]andDafrtnfAEDFTBYPP0448-43-76 17:10:00 Test Item Value Reference Range Interpretation Comments HCO3 Art (test code = HCO3 Art) 24 22-26 N [facility]andSmrpggbUBHHIJBAT4945-27-82 17:10:00 Test Item Value Reference Range Interpretation Comments pO2 Art (test code = pO2 Art) 219 80-100 H [facility]andBekaqawTVRLNEKME6561-89-32 17:10:00 Test Item Value Reference Range Interpretation Comments O2 Sat Art (test code = O2 Sat Art) 99.4 95.0-100.0 N [facility]andBvjdrwiTNVZVNYOE7532-93-79 17:10:00 Test Item Value Reference Range Interpretation Comments Site Art (test code = A Line (06/09/2012 N Site Art) 12:10:00) [facility]andGzcmfgqKKWXBBASW3896-22-60 17:10:00 Test Item Value Reference Range Interpretation Comments Mode Art (test code = SM (06/09/2012 N Mode Art) 12:10:00) [facility]andOnmlqxcHSAQZFEGN3321-75-15 17:10:00 Test Item Value Reference Range Interpretation Comments Flow Art (test code = Flow Art) 7.0 [facility]andEpthaaqDPZRMBZNI6613-66-43 17:10:00 Test Item Value Reference Range Interpretation Comments Allens Art (test code = N/A (06/09/2012 N Allens Art) 12:10:00) [facility]andXzpccvnXGXXPHTJM6394-94-72 17:10:00 Test Item Value Reference Range Interpretation Comments pCO2 Art (test code = pCO2 Art) 46 35-45 H [facility]andHyfqdbfTXYGAORKE0048-34-88 17:10:00 Test Item Value Reference Range Interpretation Comments pH Art (test code = pH Art) 7.32 7.35-7.45 L [facility]andTdyyfiiCWHKPHQXY8940-46-97 17:10:00 Test Item Value Reference Range Interpretation Comments BE Art (test code = -3 See_Comment L [Automa thelma message] The BE Art) system which ge nerated this result transmit thelma reference range : <=2. The reference range was not used to interpr et this result as zana l/abnormal. [facility]andXhnykrbLAIWEERNV1059-44-11 17:10:00 Test Item Value Reference Range Interpretation Comments HCO3 Art (test code = HCO3 Art) 24 22-26 N [facility]andXfxhvbkFWCJSZMTV9775-61-54 17:10:00 Test Item Value Reference Range Interpretation Comments pO2 Art (test code = pO2 Art) 219 80-100 H [facility]andKxonuviTEQDDGAZO8560-58-14 17:10:00 Test Item Value Reference Range Interpretation Comments O2 Sat Art (test code = O2 Sat Art) 99.4 95.0-100.0 N [facility]andZwrviagCJKFCGIUJ9303-31-61 17:10:00 Test Item Value Reference Range Interpretation Comments Site Art (test code = A Line (06/09/2012 N Site Art) 12:10:00) [facility]andLhouoezUEVYOWVJW5372-70-05 17:10:00 Test Item Value Reference Range Interpretation Comments Mode Art (test code = SM (06/09/2012 N Mode Art) 12:10:00) [facility] FallsQaxfptqHEIZZIJJG3304-20-86 17:10:00 Test Item Value Reference Range Interpretation Comments Flow Art (test code = Flow Art) 7.0 [facility]nxmvdqPIYHGXEXK6359-76-19 17:10:00 Test Item Value Reference Range Interpretation Comments Allens Art (test code = N/A (06/09/2012 N Allens Art) 12:10:00) [facility] FallsEvzlafkZEGIZRZWL3290-16-82 17:10:00 Test Item Value Reference Range Interpretation Comments pCO2 Art (test code = pCO2 Art) 46 35-45 H [facility] FallsZyfphipJPIAHLQFU3549-18-59 17:10:00 Test Item Value Reference Range Interpretation Comments pH Art (test code = pH Art) 7.32 7.35-7.45 L [facility] HospitalLamxwfgIPZBJZXMBH4322-71-29 17:00:00 Test Item Value Reference Range Interpretation Comments Hct (test code = Hct) 30.5 36.0-48.0 L [facility] HospitalNjrwxnxEOMPJJNAYV6907-93-98 17:00:00 Test Item Value Reference Range Interpretation Comments Hgb (test code = Hgb) 10.1 12.0-16.0 L [facility] HospitalOswsegkBFVYPLPQWD0414-67-52 17:00:00 Test Item Value Reference Range Interpretation Comments RBC (test code = RBC) 3.65 4.20-5.40 L [facility]BACT[facility] - DITPHFDP4034-43-79 17:00:00 Test Item Value Reference Range Interpretation Comments MRSA by PCR (test Negative 1(06/09/2012 N code = MRSA by PCR) 12:00:00) [facility] FallsLovhfspJNALBADQG5728-41-46 17:00:00 Test Item Value Reference Range Interpretation Comments Glucose Lvl (test code = Glucose Lvl) 148 70-99 H [facility] FallsSlckyaxXDUMXYSTG4895-22-33 17:00:00 Test Item Value Reference Range Interpretation Comments BUN (test code = BUN) 11 7-22 N [facility]QirsrefSWWJEQDDV6797-67-42 17:00:00 Test Item Value Reference Range Interpretation Comments Sodium Lvl (test code = Sodium Lvl) 143 135-145 N [facility] FallsFafnibuDLRNZEZRI4319-54-45 17:00:00 Test Item Value Reference Range Interpretation Comments Creatinine Lvl (test code = Creatinine 0.8 0.5-1.4 N Lvl) [facility]andKawazjxPFUPNSYTH2904-44-96 17:00:00 Test Item Value Reference Range Interpretation Comments Calcium Lvl (test code = Calcium Lvl) 8.2 8.5-10.5 L [facility]andErzisyrLBYBOUDWV1258-57-76 17:00:00 Test Item Value Reference Range Interpretation Comments Chloride Lvl (test code = Chloride Lvl) 108 95-109 N [facility]andVxdyhkpQZDYARHUI3569-98-48 17:00:00 Test Item Value Reference Range Interpretation Comments CO2 (test code = CO2) 29 24-32 N [facility]andQvielhzRYSALVRQL9559-57-65 17:00:00 Test Item Value Reference Range Interpretation Comments Potassium Lvl (test code = Potassium 3.8 3.5-5.1 N Lvl) [facility]andOzfpjyuZAPHKWAUX3294-50-80 17:00:00 Test Item Value Reference Range Interpretation Comments AGAP (test code = AGAP) 9.8 10.0-20.0 L [facility] CenterBavvxjpLLOZZEQCQY1184-48-19 17:00:00 Test Item Value Reference Range Interpretation Comments Basophils # (test code 0.0 See_Comment N [Aut omated message] The = Basophils #) system which generated this result tra nsmitted reference range : <=0.2. The reference r eric was not used to int erpret this result as normal/abnormal . [facility] CenterHlpuhjhKAOIKRRADS9573-71-38 17:00:00 Test Item Value Reference Range Interpretation Comments Eosinophils # (test code 0.4 See_Comment N [A utomated message] The = Eosinophils #) system whic h generated this result tra nsmitted reference range : <=0.5. The reference r eric was not used to int erpret this result as normal/abnormal . [facility] CenterYpirfdwHKVBAIRWVO3682-20-04 17:00:00 Test Item Value Reference Range Interpretation Comments Monocytes # (test code 0.5 See_Comment N [Aut omated message] The = Monocytes #) system which generated this result tra nsmitted reference range : <=0.8. The reference r eric was not used to int erpret this result as normal/abnormal . [facility] CenterDxazkmsRYZPQKORJV0504-25-27 17:00:00 Test Item Value Reference Range Interpretation Comments Lymphocytes # (test code = Lymphocytes 3.2 1.0-5.5 N #) [facility] CenterMjeexegCERJZGCCIY5454-44-59 17:00:00 Test Item Value Reference Range Interpretation Comments Segs-Bands # (test code = Segs-Bands #) 3.7 1.5-8.1 N [facility] CenterKdlywpdUEQRDSZAVM2727-26-56 17:00:00 Test Item Value Reference Range Interpretation Comments Basophils (test code = 0.5 See_Comment N [Aut omated message] The Basophils) system which ge nerated this result tra nsmitted reference range : <=1.0. The reference r eric was not used to int erpret this result as normal/abnormal . [facility] CenterJdnequrZGDASBCNTB7655-50-41 17:00:00 Test Item Value Reference Range Interpretation Comments Eosinophils (test code = 5.0 See_Comment H [A utomated message] The Eosinophils) system which ge nerated this result tra nsmitted reference range : <=4.0. The reference r eric was not used to int erpret this result as normal/abnormal . [facility] CenterPafmrzhZPOOOPXJSW7381-24-32 17:00:00 Test Item Value Reference Range Interpretation Comments Monocytes (test code = Monocytes) 6.3 2.0-12.0 N [facility] CenterMbpylzjRDAGPCJFLV2580-77-35 17:00:00 Test Item Value Reference Range Interpretation Comments Segs (test code = Segs) 47.0 45.0-75.0 N [facility] CenterYgkuagkEXAKYVSVQR2948-55-65 17:00:00 Test Item Value Reference Range Interpretation Comments Lymphocytes (test code = Lymphocytes) 41.2 20.0-40.0 H [facility] CenterEcshsfbVTAQRYJDSV1917-12-62 17:00:00 Test Item Value Reference Range Interpretation Comments Platelet (test code = Platelet) 191 133-450 N [facility] CenterUkujixdDIGJCIQCWE9440-09-99 17:00:00 Test Item Value Reference Range Interpretation Comments RDW (test code = RDW) 13.9 11.5-14.5 N [facility] CenterKjofixlWVPKAXMFGF9076-10-81 17:00:00 Test Item Value Reference Range Interpretation Comments MCHC (test code = MCHC) 33.2 32.0-36.0 N [facility] CenterBmffexnHZSWFBBVSI7061-41-13 17:00:00 Test Item Value Reference Range Interpretation Comments MPV (test code = MPV) 8.4 7.4-10.4 N [facility] HospitalTjozvllBVUFQBGEMJ1597-19-02 17:00:00 Test Item Value Reference Range Interpretation Comments MCH (test code = MCH) 27.7 pg 27.0-31.0 N [facility] CenterVooxmxaZWFTIEGUJZ6971-01-56 17:00:00 Test Item Value Reference Range Interpretation Comments WBC (test code = WBC) 7.8 3.7-10.4 N [facility] HospitalLqxgtnrQOHZCFQRWT1682-63-72 17:00:00 Test Item Value Reference Range Interpretation Comments MCV (test code = MCV) 83.6 81.0-99.0 N [facility] CenterVmahlhaBHIKJRTUTR6389-65-81 17:00:00 Test Item Value Reference Range Interpretation Comments Hct (test code = Hct) 30.5 36.0-48.0 L [facility] CenterWpkkezuGSOJXAXTER7241-17-66 17:00:00 Test Item Value Reference Range Interpretation Comments Hgb (test code = Hgb) 10.1 12.0-16.0 L [facility] CenterLrtpzbkQFQXNSAPHN2622-07-45 17:00:00 Test Item Value Reference Range Interpretation Comments RBC (test code = RBC) 3.65 4.20-5.40 L [facility] CenterBACTERIAL - YDBQHWTP4072-65-52 17:00:00 Test Item Value Reference Range Interpretation Comments MRSA by PCR (test Negative 1(06/09/2012 N code = MRSA by PCR) 12:00:00) [facility]andParrlyhREUPJMUYS5478-52-41 17:00:00 Test Item Value Reference Range Interpretation Comments Glucose Lvl (test code = Glucose Lvl) 148 70-99 H [facility]andWncnmfeJSIJUNMJF2718-16-15 17:00:00 Test Item Value Reference Range Interpretation Comments BUN (test code = BUN) 11 7-22 N [facility]andZbmfxbfQQPQCXQTM3844-29-75 17:00:00 Test Item Value Reference Range Interpretation Comments Sodium Lvl (test code = Sodium Lvl) 143 135-145 N [facility]andEmjstqxKYRVBQVGD6505-35-73 17:00:00 Test Item Value Reference Range Interpretation Comments Creatinine Lvl (test code = Creatinine 0.8 0.5-1.4 N Lvl) [facility]andZkrtuvtPTJMWHHXH6269-65-12 17:00:00 Test Item Value Reference Range Interpretation Comments Calcium Lvl (test code = Calcium Lvl) 8.2 8.5-10.5 L [facility]andYrqcmmuLFAMEHSAO7304-28-21 17:00:00 Test Item Value Reference Range Interpretation Comments Chloride Lvl (test code = Chloride Lvl) 108 95-109 N [facility]andFuvejfkVYYAFZNGV0007-94-33 17:00:00 Test Item Value Reference Range Interpretation Comments CO2 (test code = CO2) 29 24-32 N [facility]andCqznbsoUMFICWXPP7441-41-12 17:00:00 Test Item Value Reference Range Interpretation Comments Potassium Lvl (test code = Potassium 3.8 3.5-5.1 N Lvl) [facility]andZapbbagRFSEERVGN4350-90-63 17:00:00 Test Item Value Reference Range Interpretation Comments AGAP (test code = AGAP) 9.8 10.0-20.0 L [facility] CenterEiuelovZQETDAZHHW3966-31-68 17:00:00 Test Item Value Reference Range Interpretation Comments Basophils # (test code 0.0 See_Comment N [Aut omated message] The = Basophils #) system which generated this result tra nsmitted reference range : <=0.2. The reference r eric was not used to int erpret this result as normal/abnormal . [facility] CenterIopwgsxSUXOMQIWXX3163-67-79 17:00:00 Test Item Value Reference Range Interpretation Comments Eosinophils # (test code 0.4 See_Comment N [A utomated message] The = Eosinophils #) system whic h generated this result tra nsmitted reference range : <=0.5. The reference r eric was not used to int erpret this result as normal/abnormal . [facility] CenterTxsevugTYYRFLFJWU3138-64-71 17:00:00 Test Item Value Reference Range Interpretation Comments Monocytes # (test code 0.5 See_Comment N [Aut omated message] The = Monocytes #) system which generated this result tra nsmitted reference range : <=0.8. The reference r eric was not used to int erpret this result as normal/abnormal . [facility] CenterUldtezzUGUCGVZANG8849-78-36 17:00:00 Test Item Value Reference Range Interpretation Comments Lymphocytes # (test code = Lymphocytes 3.2 1.0-5.5 N #) [facility] CenterQhhhmehMIAWMGKFFV0790-60-58 17:00:00 Test Item Value Reference Range Interpretation Comments Segs-Bands # (test code = Segs-Bands #) 3.7 1.5-8.1 N [facility] CenterZnfgfjjZUPDAIQYQO6044-80-04 17:00:00 Test Item Value Reference Range Interpretation Comments Basophils (test code = 0.5 See_Comment N [Aut omated message] The Basophils) system which ge nerated this result tra nsmitted reference range : <=1.0. The reference r eric was not used to int erpret this result as normal/abnormal . [facility] CenterSiekxvgUZKQIWOTWK0473-24-71 17:00:00 Test Item Value Reference Range Interpretation Comments Eosinophils (test code = 5.0 See_Comment H [A utomated message] The Eosinophils) system which ge nerated this result tra nsmitted reference range : <=4.0. The reference r eric was not used to int erpret this result as normal/abnormal . [facility] CenterGzsbxroUIMSWQKRZX6390-76-15 17:00:00 Test Item Value Reference Range Interpretation Comments Monocytes (test code = Monocytes) 6.3 2.0-12.0 N [facility] CenterMudwabqBBFWUTRYQU2120-91-57 17:00:00 Test Item Value Reference Range Interpretation Comments Segs (test code = Segs) 47.0 45.0-75.0 N [facility] CenterKxnmzwaCMTWWXWJVN7115-17-90 17:00:00 Test Item Value Reference Range Interpretation Comments Lymphocytes (test code = Lymphocytes) 41.2 20.0-40.0 H [facility] CenterQapemegXFPKWBXPVU5687-26-77 17:00:00 Test Item Value Reference Range Interpretation Comments Platelet (test code = Platelet) 191 133-450 N [facility] CenterUwwgjunWWONDBEKOK2106-42-66 17:00:00 Test Item Value Reference Range Interpretation Comments RDW (test code = RDW) 13.9 11.5-14.5 N [facility] CenterPomreizXHEUPDDEMZ1960-15-17 17:00:00 Test Item Value Reference Range Interpretation Comments MCHC (test code = MCHC) 33.2 32.0-36.0 N [facility] CenterClehaayESHOZLSBJR2142-42-51 17:00:00 Test Item Value Reference Range Interpretation Comments MPV (test code = MPV) 8.4 7.4-10.4 N [facility] CenterWdbunlgZKWGTKLPNE9161-80-76 17:00:00 Test Item Value Reference Range Interpretation Comments MCH (test code = MCH) 27.7 pg 27.0-31.0 N [facility] FallsYwpjteaBVUYPTEEOU9413-26-88 17:00:00 Test Item Value Reference Range Interpretation Comments WBC (test code = WBC) 7.8 3.7-10.4 N [facility] CenterBkzjwjrCHQBVOMRCY2048-26-76 17:00:00 Test Item Value Reference Range Interpretation Comments MCV (test code = MCV) 83.6 81.0-99.0 N [facility] [employer] YEMSGLH3662-73-40 19:00:00 Test Item Value Reference Range Interpretation Comments ABO/Rh (test code = ABO/Rh) A POS [facility] [employer] ZNOBJWC3821-16-65 19:00:00 Test Item Value Reference Range Interpretation Comments Antibody Scrn (test Negative (05/31/2012 N code = Antibody Scrn) 14:00:00) [facility] [employer] SAIZDCN9997-49-98 19:00:00 Test Item Value Reference Range Interpretation Comments ABO/Rh (test code = ABO/Rh) A POS [facility] [employer] YFXVBGI1361-52-70 19:00:00 Test Item Value Reference Range Interpretation Comments Antibody Scrn (test Negative (05/31/2012 N code = Antibody Scrn) 14:00:00) [facility] EaocrfgCEHXFYBKK3684-35-31 18:50:00 Test Item Value Reference Range Interpretation Comments AST (test code = AST) 14 See_Comment N [Auto mated message] The system which ge nerated this result transmit thelma reference range : <=37. The reference range was not used to interpr et this result as zana l/abnormal. [facility] FallsDnqmyckHYAZAKMMU0272-67-26 18:50:00 Test Item Value Reference Range Interpretation Comments AGAP (test code = AGAP) 10.1 10.0-20.0 N [facility] YlmtknxCQRTCWYUO5040-82-86 18:50:00 Test Item Value Reference Range Interpretation Comments Glucose Lvl (test code = Glucose Lvl) 208 70-99 H [facility] FallsFguzszxNCHKPSFVF3004-46-98 18:50:00 Test Item Value Reference Range Interpretation Comments BUN (test code = BUN) 17 7-22 N [facility] FallsVgkzqsyVLKLGGYTY8410-18-67 18:50:00 Test Item Value Reference Range Interpretation Comments Chloride Lvl (test code = Chloride Lvl) 102 95-109 N [facility]andVtbzzweAPGHLZYBL3356-80-68 18:50:00 Test Item Value Reference Range Interpretation Comments Potassium Lvl (test code = Potassium 4.1 3.5-5.1 N Lvl) [id number] 18:50:00 Test Item Value Reference Range Interpretation Comments Creatinine Lvl (test code = Creatinine 0.9 0.5-1.4 N Lvl) [facility]andHarwdeeNCLGXGKVD6616-09-43 18:50:00 Test Item Value Reference Range Interpretation Comments Sodium Lvl (test code = Sodium Lvl) 137 135-145 N [facility][id number] 18:50:00 Test Item Value Reference Range Interpretation Comments Calcium Lvl (test code = Calcium Lvl) 9.1 8.5-10.5 N [facility]andVpmpoblWRONFOSIN2495-88-36 18:50:00 Test Item Value Reference Range Interpretation Comments CO2 (test code = CO2) 29 24-32 N [facility]xx[facility]CTWHNDHBB1113-45-96 18:50:00 Test Item Value Reference Range Interpretation Comments PTT (test code = PTT) 30.9 s 22.9-35.8 N [facility] CenterVzutyylHLOJRBIQUD8508-19-76 18:50:00 Test Item Value Reference Range Interpretation Comments PT (test code = PT) 13.0 s 12.0-14.7 N [facility] CenterUtrobocZOBTWGUSWQ5496-20-48 18:50:00 Test Item Value Reference Range Interpretation Comments INR (test code = INR) 0.96 0.85-1.17 N [facility]andWqwhrlcYNGTUQUWY2031-32-27 18:50:00 Test Item Value Reference Range Interpretation Comments AST (test code = AST) 14 See_Comment N [Auto mated message] The system which ge nerated this result transmit thelma reference range : <=37. The reference range was not used to interpr et this result as zana l/abnormal. [facility]andHonwlpkDHZCIFAZR6915-40-12 18:50:00 Test Item Value Reference Range Interpretation Comments AGAP (test code = AGAP) 10.1 10.0-20.0 N [facility]andRbhhleqNHXAPCKGI7781-40-25 18:50:00 Test Item Value Reference Range Interpretation Comments Glucose Lvl (test code = Glucose Lvl) 208 70-99 H [facility]andTxzsevvKQJOWBBRQ7562-42-49 18:50:00 Test Item Value Reference Range Interpretation Comments BUN (test code = BUN) 17 7-22 N [facility]andQswcxkvURIVDICLI0138-63-28 18:50:00 Test Item Value Reference Range Interpretation Comments Chloride Lvl (test code = Chloride Lvl) 102 95-109 N [facility]andXdhpvabMUZYLLJPW4955-71-00 18:50:00 Test Item Value Reference Range Interpretation Comments Potassium Lvl (test code = Potassium 4.1 3.5-5.1 N Lvl) [facility]andExglfmdHGVBBERUH9179-48-27 18:50:00 Test Item Value Reference Range Interpretation Comments Creatinine Lvl (test code = Creatinine 0.9 0.5-1.4 N Lvl) [facility]andQootcliULMFPUKOJ9978-27-45 18:50:00 Test Item Value Reference Range Interpretation Comments Sodium Lvl (test code = Sodium Lvl) 137 135-145 N [facility]andZfmchbsCPGHIALDD9421-54-79 18:50:00 Test Item Value Reference Range Interpretation Comments Calcium Lvl (test code = Calcium Lvl) 9.1 8.5-10.5 N [facility]andCshywdcGZIBEHLKE6724-57-62 18:50:00 Test Item Value Reference Range Interpretation Comments CO2 (test code = CO2) 29 24-32 N [facility] CenterApykwqsKMIYKLFHUA9652-51-55 18:50:00 Test Item Value Reference Range Interpretation Comments PTT (test code = PTT) 30.9 s 22.9-35.8 N [facility] CenterAhgxrzpKXCYYSUKYS7398-26-16 18:50:00 Test Item Value Reference Range Interpretation Comments PT (test code = PT) 13.0 s 12.0-14.7 N [facility] CenterRmutxxnOSDFUFKYGB4836-21-71 18:50:00 Test Item Value Reference Range Interpretation Comments INR (test code = INR) 0.96 0.85-1.17 N [facility]
--- NOTE | 2022-11-28 08:37 | RAD REPORT ---
EXAM DESCRIPTION: CT - CTHCSPWOC - 11/28/2022 8:10 am CLINICAL HISTORY: Fall. Positive loss of consciousness fall COMPARISON: No comparisons TECHNIQUE: Axial thin cut noncontrast CT images of the head were obtained. Axial thin cut noncontrast CT images of the cervical spine were obtained. Multiplanar reformatted images were generated and reviewed. All CT scans are performed using dose optimization technique as appropriate and may include automated exposure control or mA/KV adjustment according to patient size. FINDINGS: CT HEAD WITHOUT CONTRAST: No acute hemorrhage, hydrocephalus or extra-axial collection is identified.Areas of encephalomalacia and volume loss along the parasagittal right parietal lobe, posterior right frontal lobe, as well as a small focus on the left near the vertex that relates to the high left parietal cortex.No areas of b rain edema or midline shift. Left frontal scalp swelling and hematoma. The paranasal sinuses and mastoids are clear.The calvarium is intact. CT CERVICAL SPINE WITHOUT CONTRAST: No fracture. Mildly pronounced rotation of the axis relative to C2, favored to be positional rather t trinh related to rotatory subluxation.No prevertebral soft tissues swelling is identified. Advanced mu ltilevel degenerative changes, with varying degrees of subluxation along the facet articulations uppe r cervical spine. Grade 1 anterolisthesis of C3 over C4, the measuring at least 4 millimeter. 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 This contributes to degrees of central canal narrowing most notably opposite C4. IMPRESSION: No acute traumatic intracranial findings. Left frontal scalp swelling and hematoma. Areas of encephalomalacia along the the right frontal and bilateral parietal cortices, suggesting seq uelae of remote ischemia. Mildly pronounced rotation of the axis relative to C2, favored to be positional rather than related t o rotatory subluxation. Please correlate clinically. No other evidence of acute traumatic findings of the cervical spine. Advanced multilevel degenerative changes as above. The findings were communicated to Nirav Perez on 11/28/2022 at 08:33 hours.
[2022-11-28 08:52] LABS: Absolute Lymphocytes (CBC) 0.8 K/uL (0.7-4.9); Hematocrit 34.4 % (36.0-45.0); Lymphocytes % 7.9 % (15.3-44.8); MPV 8.7 fL (7.6-11.3); RBC Red Blood Cell Count 4.04 M/uL (3.86-4.86)
[2022-11-28] MEDS ORDERED: HYDROCODONE/APAP 5/325 MG TAB ONE (09:05)
[2022-11-28 09:10] LABS: Albumin 3.3 g/dL (3.4-5.0); Bilirubin Total 0.3 mg/dL (0.2-1.0); Potassium 5.2 mEq/L (3.5-5.1); Protein, Total 6.8 g/dL (6.4-8.2); Troponin High Sensitivity 20.5 pg/mL (<58.9)
--- NOTE | 2022-11-28 09:15 | ER ---
Nurse's Notes [facility] Name: Mariah Canales Age: 77 yrs Sex: Female : 1945 Arrival Date: 11/28/2022 Time: 07:56 Bed 19 Private MD: Diagnosis: Fall on same level, unspecified;Contusion of unspecified part of head Presentation: 11/28 07:57 Chief complaint: EMS states: patient fell out of her wheelchair while eating breakfast kc6 this morning. witnessed by staff, positive LOC, no blood thinners. Care prior to arrival: None. Mechanism of Injury: Fall out of chair. Trauma event details: Injury occurred in the [facility], Injury occurred: [facility]. 07:57 Acuity: AASHISH 3 kc6 07:57 Method Of Arrival: EMS: [facility] 6 08:01 Coronavirus screen: Vaccine status: Patient reports receiving the 2nd dose of the covid kc6 vaccine. At this time, the client does not indicate any symptoms associated with coronavirus-19. Ebola Screen: No symptoms or risks identified at this time. Initial Sepsis Screen: Does the patient meet any 2 criteria? No. Patient's initial sepsis screen is negative. Does the patient have a suspected source of infection? No. Patient's initial sepsis screen is negative. Risk Assessment: Do you want to hurt yourself or someone else? Patient reports no desire to harm self or others. Onset of symptoms. Trauma Activation: Alert Physician: ED Physician; Name: ; Notified At: ; Arrived At: Physician: General Surgeon; Name: ; Notified At: ; Arrived At: Physician: Radiology; Name: ; Notified At: ; Arrived At: Physician: Respiratory; Name: ; Notified At: ; Arrived At: Physician: Lab; Name: ; Notified At: ; Arrived At: Historical: - Allergies: 08:02 No Known Allergies; kc6 - PMHx: 08:02 Chronic obstructive lung disease; diabetes mellitus; Hypertensive disorder; kidney kc6 failure; stroke in 2014; Parkinson's disease; - PSHx: 08:02 caroditectomy x 2 left; kc6 - Immunization history: Last tetanus immunization: - up to date. - Social history:: Smoking status: Patient reports the use of cigarette tobacco products, smokes one-half pack cigarettes per day. Screenin:57 Abuse screen: Denies threats or abuse. Denies injuries from another. Tuberculosis kc6 screening: No symptoms or risk factors identified. 08:01 [facility] ED Fall Risk Assessment (Adult) History of falling in the last 3 months, kc6 including since admission Yes- physiologic fall (2 pts) Confusion or Disorientation No (0 pts) Intoxicated or Sedated No (0 pts) Impaired Gait Yes (1 pt) Mobility Assist Device Used Yes (1 pt) Altered Elimination No (0 pt) Score/Fall Risk Level 0 - 2 = Low Risk Oriented to surroundings, Maintained a safe environment, Educated pt \\T\\ family on fall prevention, incl call for assistance when getting out of bed, Assessed \\T\\ reinforced patient's understanding of fall precautions, Hourly rounding (assess needs \\T\\ fall precautionary measures) done. Nutritional screening: No deficits noted. Primary Survey: 07:57 NO uncontrolled hemorrhage observed. Breathing/Chest: Spontaneous respiratory effort, kc6 equal unlabored respirations, breath sounds clear bilaterally, regular pattern, symmetrical chest rise and fall. Circulation: No external hemorrhage present. Regular and strong central pulse, skin warm/dry/normal color. Disability Pupils are equal, round, reactive to light and accommodation. Exposure/Environment: There is no evidence of uncontrolled external bleeding. No obvious injuries are noted at this time. A warming method has been applied: A warm blanket has been provided to the patient. 08:48 Reassessment Alertness and Airway: Awake and alert. The airway is patent. Breathing: kc6 Spontaneous respiratory effort, equal unlabored respirations, breath sounds clear bilaterally, regular pattern with symmetrical chest rise and fall. Circulation: No external hemorrhage noted. Regular and strong central pulse, skin warm/dry/normal color. Disability: Pupils Pupils are equal, round, reactive to light and accomodation. Secondary Survey: 07:57 HEENT: No deficits noted. Gastrointestinal: No deficits noted. : No signs and/or kc6 symptoms were reported regarding the genitourinary system. Musculoskeletal: No signs and/or symptoms reported regarding the musculoskeletal system. Assessment: 07:57 General: Appears in no apparent distress. comfortable, Behavior is calm, cooperative, kc6 appropriate for age. Pain: Complains of pain in "headache" Pain does not radiate. Pain began 30 min ago. Is continuous, Alleviated by nothing. Also complains of no other associated symptoms. Neuro: Diaz Agitation-Sedation Scale (RASS): 0 - Alert and Calm Level of Consciousness is awake, alert, obeys commands, Oriented to person, place, time, situation, Appropriate for age. EENT: No signs and/or symptoms were reported regarding the EENT system. Cardiovascular: Capillary refill < 3 seconds. Respiratory: Airway is patent Trachea midline Respiratory effort is even, unlabored, Respiratory pattern is regular, symmetrical. GI: No signs and/or symptoms were reported involving the gastrointestinal system. : No signs and/or symptoms were reported regarding the genitourinary system. Derm: No signs and/or symptoms reported regarding the dermatologic system. Skin is intact, Skin is pink, warm \\T\\ dry. Musculoskeletal: No signs and/or symptoms reported regarding the musculoskeletal system. Circulation, motion, and sensation intact. Capillary refill < 3 seconds, Range of motion: intact in all extremities. Injury Description: hematoma to the forehead. 08:45 Reassessment: Patient appears in no apparent distress at this time. No changes from kc6 previously documented assessment. Patient and/or family updated on plan of care and expected duration. Pain level reassessed. Patient is alert, oriented x 3, equal unlabored respirations, skin warm/dry/pink. Vital Signs: 07:57 BP 120 / 50; Pulse 88; Resp 16 S; Temp 98.3; Pulse Ox 94% on R/A; Weight 45.36 kg (R); kc6 Height 5 ft. 0 in. ; 08:48 BP 128 / 52; Pulse 70; Resp 19 S; Pulse Ox 94% on R/A; kc6 07:57 Body Mass Index 19.53 (45.36 kg, 152.4 cm) kc6 [place] Coma Score: 07:57 Eye Response: spontaneous(4). Motor Response: obeys commands(6). Verbal Response: kc6 oriented(5). Total: 15. Trauma Score (Adult): 07:57 Eye Response: spontaneous(1); Verbal Response: oriented(1); Motor Response: obeys kc6 commands(2); Systolic BP: > 89 mm Hg(4); Respiratory Rate: 10 to 29 per min(4); Param Score: 15; Trauma Score: 12 ED Course: 07:56 Patient arrived in ED. kc6 07:56 Karmen Kingsley, LAKESHA is Primary Nurse. kc6 07:57 Nirav Perez MD is Attending Physician. rt 07:57 Patient has correct armband on for positive identification. Bed in low position. Call kc6 light in reach. Side rails up X2. 07:57 Patient maintains SpO2 saturation greater than 95% on room air. kc6 07:58 Triage completed. kc6 08:02 Arm band placed on. kc6 08:02 Thermoregulation: warm blanket given to patient. kc6 08:12 CT Head C Spine In Process Unspecified. EDMS 08:23 EKG done, by ED staff. tm3 08:31 Warm blanket given. Client placed on continuous cardiac and pulse oximetry monitoring. mm9 NIBP monitoring applied. furnace charger on. Pulse ox on. NIBP on. 08:50 Inserted saline lock: 22 gauge in right antecubital area, using aseptic technique. kc6 Blood collected. Administered Medications: 09:03 Drug: HYDROcodone-acetaminophen PO 5 mg-325 mg 1 tabs Route: PO; kc6 Outcome: 09:14 Discharge ordered by . rt Signatures: Dispatcher [employer] EDMN Ramakrishna Capellan tm3 Karmen Kingsley RN RN Yael Burrell mm9 Nirav Perez MD MD rt
--- NOTE | 2022-11-28 09:15 | EDPHYS ---
Physician Documentation [facility] [place], [place] Name: Mariah Canales Age: 77 yrs Sex: Female : 1945 Arrival Date: 11/28/2022 Time: 07:56 Bed 19 Private MD: ED Physician Nirav Perez HPI: 11/28 08:32 This 77 yrs old Unknown Female presents to ER via EMS with complaints of Fall Injury. rt 08:32 Patient presents to the ED with head injury. Patient reportedly fell at the nursing rt home just prior to arrival hitting her head. She cannot recall the event surrounding the fall. She denies other pain, injuries. Denies other acute complaints, symptoms are moderate severity, no other aggravating alleviating factors. Historical: - Allergies: 08:02 No Known Allergies; kc6 - PMHx: 08:02 Chronic obstructive lung disease; diabetes mellitus; Hypertensive disorder; kidney kc6 failure; stroke in 2015; Parkinson's disease; - PSHx: 08:02 caroditectomy x 2 left; kc6 - Immunization history: Last tetanus immunization: - up to date. - Social history:: Smoking status: Patient reports the use of cigarette tobacco products, smokes one-half pack cigarettes per day. ROS: 08:32 Constitutional: Negative for fever, chills, and weight loss, Cardiovascular: Negative rt for chest pain, palpitations, and edema, Respiratory: Negative for shortness of breath, cough, wheezing, and pleuritic chest pain, Abdomen/GI: Negative for abdominal pain, nausea, vomiting, diarrhea, and constipation, MS/Extremity: Negative for injury and deformity, Skin: Negative for injury, rash, and discoloration, Psych: Negative for depression, anxiety, suicide ideation, homicidal ideation, and hallucinations. 08:32 Neuro: Positive for headache, loss of consciousness. Exam: 08:32 Constitutional: This is a well developed, well nourished patient who is awake, alert, rt and in no acute distress. Chest/axilla: Normal chest wall appearance and motion. Nontender with no deformity. No lesions are appreciated. Cardiovascular: Regular rate and rhythm with a normal S1 and S2. No gallops, murmurs, or rubs. Normal PMI, no JVD. No pulse deficits. Respiratory: Lungs have equal breath sounds bilaterally, clear to auscultation and percussion. No rales, rhonchi or wheezes noted. No increased work of breathing, no retractions or nasal flaring. Abdomen/GI: Soft, non-tender, with normal bowel sounds. No distension or tympany. No guarding or rebound. No evidence of tenderness throughout. MS/ Extremity: Pulses equal, no cyanosis. Neurovascular intact. Full, normal range of motion. Neuro: Awake and alert, GCS 15, oriented to person, place, time, and situation. Cranial nerves II-XII grossly intact. Motor strength 5/5 in all extremities. Sensory grossly intact. Cerebellar exam normal. Normal gait. Psych: Awake, alert, with orientation to person, place and time. Behavior, mood, and affect are within normal limits. 08:32 Head/face: Hematoma noted to the left side of the forehead, no lacerations, no other external evidence of trauma. 08:32 Neck: No posterior cervical midline tenderness. 08:35 ECG was reviewed by the Attending Physician. rt Vital Signs: 07:57 BP 120 / 50; Pulse 88; Resp 16 S; Temp 98.3; Pulse Ox 94% on R/A; Weight 45.36 kg (R); kc6 Height 5 ft. 0 in. ; 08:48 BP 128 / 52; Pulse 70; Resp 19 S; Pulse Ox 94% on R/A; kc6 07:57 Body Mass Index 19.53 (45.36 kg, 152.4 cm) kc6 Param Coma Score: 07:57 Eye Response: spontaneous(4). Motor Response: obeys commands(6). Verbal Response: kc6 oriented(5). Total: 15. Trauma Score (Adult): 07:57 Eye Response: spontaneous(1); Verbal Response: oriented(1); Motor Response: obeys kc6 commands(2); Systolic BP: > 89 mm Hg(4); Respiratory Rate: 10 to 29 per min(4); Param Score: 15; Trauma Score: 12 MDM: 07:57 Patient medically screened. rt 11/28 07:58 Order name: EKG; Complete Time: 07:59 rt 11/28 07:58 Order name: EKG - Nurse/Tech; Complete Time: 08:23 rt 11/28 07:58 Order name: CT Head C Spine; Complete Time: 08:41 rt 11/28 07:58 Order name: CBC with Diff; Complete Time: 09:11 rt 11/28 07:58 Order name: CMP; Complete Time: : rt 11/28 07:58 Order name: Troponin High Sensitivity; Complete Time: 09:11 rt EC:35 Rate is 75 beats/min. Rhythm is regular, Normal Sinus Rhythm with No ectopy. QRS [place] rt is Normal. RI interval is normal. QRS interval is normal. QT interval is normal. No Q waves. T waves are Normal. No ST changes noted. Administered Medications: : Drug: HYDROcodone-acetaminophen PO 5 mg-325 mg 1 tabs Route: PO; kc6 Disposition Summary: 11/28/22 09:14 Discharge Ordered Location: Home rt Problem: new rt Symptoms: have improved rt Condition: Stable rt Diagnosis - Fall on same level, unspecified rt - Contusion of unspecified part of head rt Followup: rt - With: Private Physician - When: 2 - 3 days - Reason: Discharge Instructions: - Discharge Summary Sheet rt - Facial or Scalp Contusion rt - Fall Prevention in the Home, Adult rt Forms: - Medication Reconciliation Form rt - Thank You Letter rt - Antibiotic Education rt - Prescription Opioid Use rt Signatures: Dispatcher [employer] Karmen Fernandez RN RN kc6 Nirav Perez MD MD rt
[2022-11-28 11:56] VITALS: TEMP 98.3
[2022-11-28 11:58] VITALS: BP 118/50; O2SAT 96
--- NOTE | 2022-12-01 17:43 | EKG ---
Test Date: 2022-11-28 Test Time: 08:20:31 Shipper: YOHAN MEASUREMENT RESULTS: Intervals: Rate: 78 OR: 158 QRSD: 68 QT: 354 QTc: 403 [place]: P: 79 OR: 158 QRS: 71 T: 79 INTERPRETIVE STATEMENTS: Normal sinus rhythm Septal infarct, age undetermined Abnormal ECG Compared to ECG 11/28/2022 08:19:07 No significant changes Electronically Signed On 12-01-22 17:37:38 CDT by Dillan Haas
--- NOTE | 2022-12-01 17:44 | EKG ---
Test Date: 2022-11-28 Test Time: 08:19:07 Upsetter Helper: TM MEASUREMENT RESULTS: Intervals: Rate: 78 LA: 162 QRSD: 74 QT: 348 QTc: 396 [place]: P: 75 LA: 162 QRS: 70 T: 77 INTERPRETIVE STATEMENTS: Normal sinus rhythm Septal infarct, age undetermined Abnormal ECG Compared to ECG 03/18/2021 20:54:25 No significant changes Electronically Signed On 12-01-22 17:37:40 CDT by Dillan Haas
== END 2022-11-28 11:17 | disposition home or self-care (01) ==
LOC: ER 07:53
DX: S00.83XA Contusion of other part of head, initial encounter (principal); W18.30XA Fall on same level, unspecified, initial encounter; G20 Parkinson's disease; I10 Essential (primary) hypertension; E11.9 Type 2 diabetes mellitus without complications; F17.210 Nicotine dependence, cigarettes, uncomplicated
CPT/HCPCS: 36415; 70450; 72125; 80053; 84484; 85025; 93005; 99285

== ENCOUNTER 2023-01-13 16:58 | Emergency (ER) | payer OTHER ==
--- OUTSIDE RECORDS SUMMARY | 2023-01-13 17:25 | XMS REPORT | Continuity of Care Document ---
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 [facility] #[id number] sucralfate 2020-0 No 1 gm = 1 Mem oria 1 g oral 2-11 tab, PO, l tablet 22:59: QID, # 120 Estelle nn 00 tab, 1 Refill(s), Pharmacy: [facility] #[id number] pantoprazol 2020-0 No 40 mg = 1 M emoria e 40 mg 2-11 tab, PO, l oral 22:59: BID, # 60 Gruver enteric 00 tab, 1 coated Refill(s), tablet Pharmacy: [facility] #[id number] sucralfate 2020-0 No 1 gm = 1 Mem oria 1 g oral 2-11 tab, PO, l tablet 22:59: QID, # 120 Estelle nn 00 tab, 1 Refill(s), Pharmacy: [facility] #[id number] pantoprazol 2020-0 No 40 mg = 1 M emoria e 40 mg 2-11 tab, PO, l oral 22:59: BID, # 60 Jasbir enteric 00 tab, 1 coated Refill(s), tablet Pharmacy: [facility] #[id number] Miralax 2020-0 No Notes: Memoria 2-10 Dissolve l 21:36: in 8 oz of Gruver 00 water or juice. (Same as: Miralax) Miralax 2020-0 No Notes: Memoria 2-10 Dissolve l 21:36: in 8 oz of Jasbir 00 water or juice. (Same as: Miralax) Miralax 2019-0 No Notes: Memoria 2-10 Dissolve l 21:36: in 8 oz of Jasbir 00 water or juice. (Same as: Miralax) Pravastatin 2020-0 No Notes: Isaak lauren 2-08 (Same as: [...] 2- 25 mL, l (D50W) 20:56: Route: IVP, Drug Form: INJ, Dosing Weight 45.045, kg, PRN, PRN Blood Glucose Results, Start date: 10/21/19 14:56:00 FIRE WATCHER, Duration: 30 day, Stop date: 11/20/19 15:55:00 CDT, 0 Glucagon 2019-0 No 1 mg, Memoria 2-07 Route: IM, l 20:56: Drug form: PDR/INJ, PRN, Dosing Weight 45.045, kg, PRN Blood Glucose Results, Start date: 10/21/19 14:56:00 FIRE WATCHER, Duration: 30 day, Stop date: 11/20/19 15:55:00 CDT, 0 Insulin 2019-0 No Notes: Memoria Lispro 2-07 (Same as: l 20:56: Humalog) Gruver 00 Roll in palms of hands gently; Do not shake vigorously . WASTE: F/P - Black; E - Municipal Trash Bin Stable for 28 days at room temperatur e. Expires in days from ____Date Dextrose 2020-0 No 12.5 gm, Memor ia 50% Syringe 2-07 25 mL, l (D50W) 20:56: Route: Jasbir 00 IVP, Drug Form: INJ, Dosing Weight 45.045, kg, PRN, PRN Blood Glucose Results, Start date: 10/21/19 14:56:00 FIRE WATCHER, Duration: 30 day, Stop date: 11/20/19 15:55:00 CDT, 0 Glucagon 2020-0 No 1 mg, Memoria 2-07 Route: IM, l 20:56: Drug form: Jasbir 00 PDR/INJ, PRN, Dosing Weight 45.045, kg, PRN Blood Glucose Results, Start date: 10/21/19 14:56:00 FIRE WATCHER, Duration: 30 day, Stop date: 11/20/19 15:55:00 [...] 2-07 25 mL, l (D50W) 20:56: Route: Gruver 00 IVP, Drug Form: INJ, Dosing Weight 45.045, kg, PRN, PRN Blood Glucose Results, Start date: 10/21/19 14:56:00 FIRE WATCHER, Duration: 30 day, Stop date: 11/20/19 15:55:00 CDT, 0 Glucagon 2020-0 No 1 mg, Memoria 2-07 Route: IM, l 20:56: Drug form: Jasbir 00 PDR/INJ, PRN, Dosing Weight 45.045, kg, PRN Blood Glucose Results, Start date: 10/21/19 14:56:00 FIRE WATCHER, Duration: 30 day, Stop date: 11/20/19 15:55:00 CDT, 0 Insulin 2020-0 No Notes: Memoria Lispro 2-07 (Same as: l 20:56: Humalog) Roll in palms of hands gently; Do not shake vigorously . WASTE: F/P - Black; E - Municipal Trash Bin Stable for 28 days at room temperatur e. Expires in days from ____Date Cogentin 2019-0 No Notes: Memoria 2-07 (Same As: l 15:00: Cogentin) Buspirone 2019-0 No Notes: Memori a 2-07 (Same As: l 15:00: BuSpar) Lexapro 2019-0 No Notes: Memoria 2-07 (Same as: l 15:00: Lexapro) Prinivil 2019-0 No Notes: Memoria 2-07 (Same as: l 15:00: Prinivil, Gruver 00 Zestril) Trileptal 2019-0 No Notes: Memori a 2-07 Hazardous l 15:00: Drug Group 2:Non-anti neoplastic Hazardous Drug -- Refer to safe handling procedure PPE Matrix Do not crush or chew. (Same as: Trileptal) Mirapex 2019-0 No Notes: Memoria 2-07 (Same as: l 15:00: Mirapex) Pramipexole 2019-0 No Notes: Isaak lauren 2-07 (Same as: l 15:00: Mirapex) Sucralfate 2019-0 No Notes: May M emoria 2-07 interfere l 15:00: w/enteral Jasbir 00 feeds - Take 1 hr before or 2 hr after antacids, dairy pdt, meals & minerals - On empty stomach. For patients unable to swallow tablet, dissolve in 10mL - 30mL of water or juice and stir before giving. (Same As: Carafate) Cogentin 2019-0 No Notes: Memoria 2-07 (Same As: l 15:00: Cogentin) Buspirone 2019-0 No Notes: Memori a 2-07 (Same As: l 15:00: BuSpar) Jasbir Lexapro 2019- No Notes: Memoria 2-07 (Same as: l 15:00: Lexapro) Jasbir 00 Prinivil No Notes: Memoria 2-07 (Same as: l 15:00: Prinivil, Jasbir 00 Zestril) Trileptal No Notes: Memori a 2-07 Hazardous l 15:00: Drug Group Gruver 2:Non-anti neoplastic Hazardous Drug -- Refer to safe handling procedure PPE Matrix Do not crush or chew. (Same as: Trileptal) Mirapex No Notes: Memoria 2-07 (Same as: l 15:00: Mirapex) Pramipexole No Notes: Isaak lauren 2-07 (Same as: l 15:00: Mirapex) Sucralfate No Notes: May M emoria 2-07 interfere l 15:00: w/enteral feeds - Take 1 hr before or 2 hr after antacids, dairy pdt, meals & minerals - On empty stomach. For patients unable to swallow tablet, dissolve in 10mL - 30mL of water or juice and stir before giving. (Same As: Carafate) Cogentin No Notes: Memoria 2-07 (Same As: l 15:00: Cogentin) Buspirone No Notes: Memori a 2-07 (Same As: l 15:00: BuSpar) Lexapro No Notes: Memoria 2-07 (Same as: l 15:00: Lexapro) Prinivil No Notes: Memoria 2-07 (Same as: l 15:00: Prinivil, Gruver 00 Zestril) Trileptal No Notes: Memori a 2-07 Hazardous l 15:00: Drug Group Jasbir 2:Non-anti neoplastic Hazardous Drug -- Refer to safe handling procedure PPE Matrix Do not crush or chew. (Same as: Trileptal) Mirapex 2020-0 No Notes: Memoria 2-07 (Same as: l 15:00: Mirapex) Gruver 00 Pramipexole 2019-0 No Notes: Isaak lauren 2-07 (Same as: l 15:00: Mirapex) Gruver 00 Sucralfate 0 No Notes: January emoria 2-07 interfere l 15:00: w/enteral Jasbir [...] kg, methicone) TID-Meals, Start date: 10/21/19 8:00:00 FIRE WATCHER, Duration: 30 day, Stop date: 11/19/19 17:00:00 FIRE WATCHER Al No Notes: Memoria hydroxide/M 2-07 (aluminum l g 14:00: hydroxide- Jasbir hydroxide/s 00 magnesium imethicone hyd-simeth icone 200-200-20 mg/5ml 30 ml ud GAIL) Xylocaine No Notes: Memori a Viscous 2% 2-07 (Same as: l mucous 14:00: Xylocaine) Estelle nn membrane 00 solution GI cocktail 0 No 45 mL, Isaak lauren (aluminum 2-07 Route: PO, l hydroxide/m 14:00: Dosing Herm jose a agnesium 00 Weight hydroxide/l 45.045, idocaine/si kg, methicone) TID-Meals, Start date: 10/21/19 8:00:00 FIRE WATCHER, Duration: 30 day, Stop date: 11/19/19 17:00:00 FIRE WATCHER Al No Notes: Memoria hydroxide/M 2-07 (aluminum l g 14:00: hydroxide- Gruver hydroxide/s 00 magnesium imethicone hyd-simeth icone 200-200-20 mg/5ml 30 ml ud GAIL) Xylocaine 2019-0 No Notes: Memori a Viscous 2% 2-07 (Same as: l mucous 14:00: Xylocaine) Estelle nn membrane 00 solution GI cocktail 2020-0 No 45 mL, Isaak lauren (aluminum 2-07 Route: PO, l hydroxide/m 14:00: Dosing Herm jose a agnesium 00 Weight hydroxide/l 45.045, idocaine/si kg, methicone) TID-Meals, Start date: 10/21/19 8:00:00 FIRE WATCHER, Duration: 30 day, Stop date: 11/19/19 17:00:00 FIRE WATCHER Al 2020-0 No Notes: Memoria hydroxide/M 2-07 [...] a 2-07 DAUGHTER l 04:52: NOT SURE Gruver 00 OF THE DOSAGE, 0 Refill(s) Janumet 2020-0 Yes PO, BID, Memori a 2-07 DAUGHTER l 04:52: NOT SURE Gruver 00 OF THE DOSAGE, 0 Refill(s) Nicotine [...] Memoria 2-07 (Same as: l 02:24: Habitrol) Gruver 00 "Remove old patch before applicatio n of new patch" WASTE: F/P - P Waste Black; E - P Waste Black Protonix 2020-0 No Notes: For Mem oria 2-07 IV push l 01:37: reconstitu Gruver 00 te with 10 ml 0.9% sodium chloride and push over 2 minutes. (Same as: Protonix) Labetalol 2020-0 No 170; hold Mem oria 2-07 for HR<65, l 01:37: 0 Jasbir 00 NS 1,000 mL 2019-0 No 1,000 mL, M emoria 2-07 Rate: 40 l 01:37: ml/hr, Gruver 00 Infuse over: 25 hr, Route: IV, Dosing Weight 45.455 kg, Total Volume: 1,000, Start date: 10/20/19 19:37:00 FIRE WATCHER, Duration: 1 doses or times, Stop date: 10/21/19 20:36:00 FIRE WATCHER, 1.4, m2, 0 Protonix 2020-0 No Notes: For Mem oria 2-07 IV push l 01:37: reconstitu Jasbir 00 te with 10 ml 0.9% sodium chloride and push over 2 minutes. (Same as: Protonix) Labetalol 2020-0 No 170; hold Mem oria 2-07 for HR<65, l 01:37: 0 Gruver 00 NS 1,000 mL 2019-0 No 1,000 mL, M emoria 2- Rate: 40 l 01:37: ml/hr, Gruver 00 Infuse over: 25 hr, Route: IV, Dosing Weight 45.455 kg, Total Volume: 1,000, Start date: 10/20/19 19:37:00 FIRE WATCHER, Duration: 1 doses or times, Stop date: 10/21/19 20:36:00 FIRE WATCHER, 1.4, m2, 0 Protonix 2019-0 No Notes: For Mem oria 2-07 IV push l 01:37: reconstitu Jasbir 00 te with 10 ml 0.9% sodium chloride and push over 2 minutes. (Same as: Protonix) Labetalol 2020-0 No 170; hold Mem oria 2-07 for HR<65, l 01:37: 0 Jasbir 00 NS 1,000 mL 2020-0 No 1,000 mL, M emoria 2-07 Rate: 40 l 01:37: ml/hr, Jasbir 00 Infuse over: 25 hr, Route: IV, Dosing Weight 45.455 kg, Total Volume: 1,000, Start date: 10/20/19 19:37:00 FIRE WATCHER, Duration: 1 doses or times, Stop date: 10/21/19 20:36:00 FIRE WATCHER, 1.4, m2, 0 Dextrose 2020-0 No 12.5 gm, Memor ia 50% Syringe 2-07 25 mL, l (D50W) 01:36: Route: Gruver 00 IVP, Drug Form: INJ, Dosing Weight 45.455, kg, PRN, PRN Blood Glucose Results, Start date: 10/20/19 19:36:00 FIRE WATCHER, Duration: 30 day, Stop date: 11/19/19 19:35:00 FIRE WATCHER, 0 Dextrose 2020-0 No 12.5 gm, Memor ia 50% Syringe 2-07 25 mL, l (D50W) 01:36: Route: Gruver 00 IVP, Drug Form: INJ, Dosing Weight 45.455, kg, PRN, PRN Blood Glucose Results, Start date: 10/20/19 19:36:00 FIRE WATCHER, Duration: 30 day, Stop date: 11/19/19 19:35:00 FIRE WATCHER, 0 Glucagon 2020-0 No 1 mg, Memoria 10-21 Route: IM, l 01:36: Drug form: Gruver 00 PDR/INJ, PRN, Dosing Weight 45.455, kg, PRN Blood Glucose Results, Start date: 10/20/19 19:36:00 FIRE WATCHER, Duration: 30 day, Stop date: 11/19/19 19:35:00 FIRE WATCHER, 0 Ondansetron 2019-0 No Notes: Isaak lauren 10-21 (Same as: l 01:36: Zofran) MEDICATION WASTE Product Size: 4 mg Product Wasted: ___ mg Acetaminoph 2019-0 No Notes: Do M emoria en 10-21 not exceed l 01:36: 4 gm/day. Jasbir 00 (Same as: Tylenol) Morphine 2019-0 No Notes: Memoria 10-21 (Same l 01:36: as:MORPhin e Sulfate) Nitroglycer 2019-0 No Notes: Isaak lauren in 10-21 (Same l 01:36: as:Nitroqu ick, Nitrostat) "Do Not Crush" Sublingual tablet Glucagon 2020-0 No 1 mg, Memoria 207 Route: IM, l 01:36: Drug form: Gruver 00 PDR/INJ, PRN, Dosing Weight 45.455, kg, PRN Blood Glucose Results, Start date: 10/20/19 19:36:00 FIRE WATCHER, Duration: 30 day, Stop date: 11/19/19 19:35:00 FIRE WATCHER, 0 Ondansetron 2020-0 No Notes: Isaak lauren - (Same as: l 01:36: Zofran) MEDICATION WASTE Product Size: 4 mg Product Wasted: ___ mg Acetaminoph 2020-0 No Notes: Do M emoria en 10-21 not exceed l 01:36: 4 gm/day. Gruver 00 (Same as: Tylenol) Morphine 2020-0 No Notes: Memoria 10-21 (Same l 01:36: as:MORPhin e Sulfate) Nitroglycer 2020-0 No Notes: Isaak lauren in 10-21 (Same l 01:36: as:Nitroqu 00 ick, Nitrostat) "Do Not Crush" Sublingual tablet Dextrose 2020-0 No 12.5 gm, Memor ia 50% Syringe 10-21 25 mL, l (D50W) 01:36: Route: Jasbir 00 IVP, Drug Form: INJ, Dosing Weight 45.455, kg, PRN, PRN Blood Glucose Results, Start date: 10/20/19 19:36:00 FIRE WATCHER, Duration: 30 day, Stop date: 11/19/19 19:35:00 FIRE WATCHER, 0 Glucagon 2020-0 No 1 mg, Memoria 10-21 Route: IM, l 01:36: Drug form: Jasbir 00 PDR/INJ, PRN, Dosing Weight 45.455, kg, PRN Blood Glucose Results, Start date: 10/20/19 19:36:00 FIRE WATCHER, Duration: 30 day, Stop date: 11/19/19 19:35:00 FIRE WATCHER, 0 Ondansetron 2020-0 No Notes: Isaak lauren - (Same as: l 01:36: Zofran) MEDICATION WASTE Product Size: 4 mg Product Wasted: ___ mg Acetaminoph 2020-0 No Notes: Do M emoria en - not exceed l 01:36: 4 gm/day. Jasbir 00 (Same as: Tylenol) Morphine 2020-0 No Notes: Memoria 2- (Same l 01:36: as:MORPhin Jasbir 00 e Sulfate) Nitroglycer 2019-0 No Notes: Isaak lauren in 10-21 (Same l 01:36: as:Nitroqu Jasbir 00 ick, Nitrostat) "Do Not Crush" Sublingual tablet Zofran 2020-0 No Notes: Memoria 2- (Same as: l 23:28: Zofran) Jasbir 00 MEDICATION WASTE Product Size: 4 mg Product Wasted: ___ mg Zofran 2020-0 No Notes: Memoria 2- (Same as: l 23:28: Zofran) Jasbir 00 MEDICATION WASTE Product Size: 4 mg Product Wasted: ___ mg Zofran 2020-0 No Notes: Memoria 2- (Same as: l 23:28: Zofran) Jasbir 00 MEDICATION WASTE Product Size: 4 mg Product Wasted: ___ mg Morphine 2020-0 No Notes: Memoria 2- (Same l 19:03: as:MORPhin Gruver 00 e Sulfate) Zofran 2020-0 No Notes: Memoria 2- (Same as: l 19:03: Zofran) Jasbir 00 MEDICATION WASTE Product Size: 4 mg Product Wasted: ___ mg Morphine 2020-0 No Notes: Memoria 2- (Same l 19:03: as:MORPhin Gruver 00 e Sulfate) Zofran 2020-0 No Notes: Memoria 2- (Same as: l 19:03: Zofran) Jasbir 00 MEDICATION WASTE Product Size: 4 mg Product Wasted: ___ mg Morphine 2020-0 No Notes: Memoria 2- (Same l 19:03: as:MORPhin Jasbir 00 e Sulfate) Zofran 2020-0 No Notes: Memoria 2- (Same as: l 19:03: Zofran) Jasbir 00 MEDICATION WASTE Product Size: 4 mg Product Wasted: ___ mg remove 2020-0 No Notes: Memoria patch - Remove old l 15:00: patch Jasbir 00 before applicatio n of new patch. WASTE: F/P - P Waste Black; E - P Waste Black remove 2020- No Notes: Memoria patch 1-23 Remove old l 15:00: patch Gruver 00 before applicatio n of new patch. WASTE: F/P - P Waste Black; E - P Waste Black remove 2020-0 No Notes: Memoria patch 1-23 Remove old l 15:00: patch Gruver 00 before applicatio n of new patch. WASTE: F/P - P Waste Black; E - P Waste Black cefdinir 2020-0 Yes 300 mg = 1 Mem oria 300 MG Oral 1-22 cap, PO, l Capsule 15:33: Q12H, X 7 Estelle nn [Omnicef] 00 day, # 14 cap, 0 Refill(s), [id number] Azithromyci 2020-0 Yes 500 mg = 1 Memoria n 500 MG 1-22 tab, PO, l Oral Tablet 15:33: Daily, X 3 Gruver [Zithromax] 00 day, # 3 tab, 0 Refill(s), [id number] benzonatate 2020-0 Yes 200 mg = 1 Memoria 200 MG Oral 1-22 cap, PO, l Capsule 15:33: TID, X 10 Estelle nn [Tessalon] 00 day, # 30 cap, 0 Refill(s), [id number] cefdinir 2020-0 Yes 300 mg = 1 Mem oria 300 MG Oral 1-22 cap, PO, l Capsule 15:33: Q12H, X 7 Estelle nn [Omnicef] 00 day, # 14 cap, 0 Refill(s), [id number] Azithromyci 2020-0 Yes 500 mg = 1 Memoria n 500 MG 1-22 tab, PO, l Oral Tablet 15:33: Daily, X 3 Gruver [Zithromax] 00 day, # 3 tab, 0 Refill(s), [id number] benzonatate 2020-0 Yes 200 mg = 1 Memoria 200 MG Oral 1-22 cap, PO, l Capsule 15:33: TID, X 10 Estelle nn [Tessalon] 00 day, # 30 cap, 0 Refill(s), Pharmacy: [facility] #[id number] cefdinir 2020-0 Yes 300 mg = 1 Mem oria 300 MG Oral 1-22 cap, PO, l Capsule 15:33: Q12H, X 7 Estelle nn [Omnicef] 00 day, # 14 cap, 0 Refill(s), Pharmacy: [facility] #[id number] Azithromyci 2019-0 Yes 500 mg = 1 Memoria n 500 MG 1-22 tab, PO, l Oral Tablet 15:33: Daily, X 3 Jasbir [Zithromax] 00 day, # 3 tab, 0 Refill(s), Pharmacy: [facility] #[id number] benzonatate 2019-0 Yes 200 mg = 1 Memoria 200 MG Oral 1-22 cap, PO, l Capsule 15:33: TID, X 10 Estelle nn [Tessalon] 00 day, # 30 cap, 0 Refill(s), Pharmacy: [facility] #[id number] Potassium 2019-0 No Notes: Memori a Chloride 1-22 (Same as: l 13:34: K-Dur 20) Gruver 00 "Do Not Crush" Give with food and full glass of water For patients unable to swallow tablet, dissolve in one half glass of water. Allow about 2 minutes for the tablets to disintegra te. Stir before giving to prepare slurry and administer . Please exclude Patient s with feeding tube less than 14 Syrian (Dobhoff, J-tube etc) and pediatric and patients. Potassium 2020-0 No Notes: Memori a Chloride 1-22 (Same as: l 13:34: K-Dur 20) Jasbir 00 "Do Not Crush" Give with food and full glass of water For patients unable to swallow tablet, dissolve in one half glass of water. Allow about 2 minutes for the tablets to disintegra te. Stir before giving to prepare slurry and administer . Please exclude Patient s with feeding tube less than 14 Syrian (Dobhoff, J-tube etc) and pediatric and patients. Potassium 2020-0 No Notes: Memori a Chloride 1-22 (Same as: l 13:34: K-Dur 20) Jasbir 00 "Do Not Crush" Give with food and full glass of water For patients unable to swallow tablet, dissolve in one half glass of water. Allow about 2 minutes for the tablets to disintegra te. Stir before giving to prepare slurry and administer . Please exclude Patient s with feeding tube less than 14 Syrian (Dobhoff, J-tube etc) and pediatric and patients. Zocor 2020-0 No Notes: Memoria 1-22 (Same as: l 03:00: Zocor) Chantix 2020-0 No 0.5 mg, 1 Memor ia 1-22 tab, l 03:00: Route: PO, Jasbir 00 Drug form: TAB, Bedtime, Dosing Weight 45.455, kg, Start date: 10/04/19 21:00:00 FIRE WATCHER, Duration: 30 day, Stop date: 11/02/19 21:00:00 FIRE WATCHER Zocor 2020-0 No Notes: Memoria - (Same as: l 03:00: Zocor) Chantix 2020-0 No 0.5 mg, 1 Memor ia 1-22 tab, l 03:00: Route: PO, Gruver 00 Drug form: TAB, Bedtime, Dosing Weight 45.455, kg, Start date: 10/04/19 21:00:00 FIRE WATCHER, Duration: 30 day, Stop date: 11/02/19 21:00:00 FIRE WATCHER Zocor 2020-0 No Notes: Memoria - (Same as: l 03:00: Zocor) Chantix 2020-0 No 0.5 mg, 1 Memor ia -22 tab, l 03:00: Route: PO, Gruver 00 Drug form: TAB, Bedtime, Dosing Weight 45.455, kg, Start date: 10/04/19 21:00:00 FIRE WATCHER, Duration: 30 day, Stop date: 11/02/19 21:00:00 FIRE WATCHER Rocephin + 2019-0 No Notes: Memor ia sterile -22 (Same As: l water 10 mL 00:00: Rocephin). Use with 100 mL NS and infuse over 30 min MEDICATION WASTE Product Size: 1000 mg Product Wasted: ___ mg Rocephin + 2020-0 No Notes: Memor ia sterile -22 (Same As: l water 10 mL 00:00: Rocephin). Use with 100 mL NS and infuse over 30 min MEDICATION WASTE Product Size: 1000 mg Product Wasted: ___ mg Rocephin + 2019- No Notes: Memor ia sterile 10-05 (Same As: l water 10 mL 00:00: Rocephin). Use with 100 mL NS and infuse over 30 min MEDICATION WASTE Product Size: 1000 mg Product Wasted: ___ mg Zithromax 2019-0 No Notes: Memori a 10-04 (Same As: l 17:00: Zithromax IV) Zithromax 2019-0 No Notes: Memori a 10-04 (Same As: l 17:00: Zithromax IV) Zithromax 2019-0 No Notes: Memori a 10-04 (Same As: l 17:00: Zithromax IV) Cogentin 2019-0 No Notes: Memoria 10-04 (Same As: l 15:00: Cogentin) Buspirone 2019-0 No Notes: Memori a 10-04 (Same As: l 15:00: BuSpar) clopidogrel 2019-0 No Notes: Isaak lauren 10-04 (Same As: l 15:00: Plavix) Lexapro 2019-0 No Notes: Memoria 10-04 (Same as: l 15:00: Lexapro) Prinivil 2019-0 No Notes: Memoria 10-04 (Same as: l 15:00: Prinivil, Zestril) pantoprazol 2019-0 No Notes: Isaak lauren e - Tablet l 15:00: should not be chewed or crushed. (Same as: Protonix) Mirapex 2019-0 No Notes: Memoria 10-04 (Same as: l 15:00: Mirapex) Pramipexole 2019-0 No 0.125 mg, M emoria 10-04 1 tab, l 15:00: Route: PO, Drug form: TAB, Daily, Dosing Weight 45.455, kg, Start date: 10/04/19 9:00:00 FIRE WATCHER, Duration: 30 day, Stop date: 11/02/19 9:00:00 FIRE WATCHER Sucralfate 2019-0 No 1 gm, 1 Isaak lauren 1-21 tab, l 15:00: Route: PO, Jasbir 00 Drug form: TAB, BID, Dosing Weight 45.455, kg, Start date: 10/04/19 9:00:00 FIRE WATCHER, Duration: 30 day, Stop date: 11/02/19 17:00:00 FIRE WATCHER Cogentin 2019-0 No Notes: Memoria 1-21 (Same As: l 15:00: Cogentin) Buspirone 2019-0 No Notes: Memori a 1-21 (Same As: l 15:00: BuSpar) clopidogrel 2019-0 No Notes: Isaak lauren 1-21 (Same As: l 15:00: Plavix) Lexapro 2019-0 No Notes: Memoria 1-21 (Same as: l 15:00: Lexapro) Prinivil 2019-0 No Notes: Memoria 1-21 (Same as: l 15:00: Prinivil, Jasbir 00 Zestril) pantoprazol 2019-0 No Notes: Isaak lauren e -21 Tablet l 15:00: should not be chewed or crushed. (Same as: Protonix) Mirapex 2019-0 No Notes: Memoria 1-21 (Same as: l 15:00: Mirapex) Pramipexole 2019-0 No 0.125 mg, M emoria 1-21 1 tab, l 15:00: Route: PO, Drug form: TAB, Daily, Dosing Weight 45.455, kg, Start date: 10/04/19 9:00:00 [employer], Duration: 30 day, Stop date: 11/02/19 9:00:00 [employer] Sucralfate 2019-0 No 1 gm, 1 Isaak lauren 1-21 tab, l 15:00: Route: PO, Drug form: TAB, BID, Dosing Weight 45.455, kg, Start date: 10/04/19 9:00:00 [employer], Duration: 30 day, Stop date: 11/02/19 17:00:00 [employer] W[employer] Cogentin 2019-0 No Notes: Memoria 1-21 (Same As: l 15:00: Cogentin) Buspirone 2019-0 No Notes: Memori a - (Same As: l 15:00: BuSpar) clopidogrel No Notes: Isaak lauren - (Same As: [...] Weight 45.455, kg, Start date: 10/04/19 9:00:00 [employer] W[employer], Duration: 30 day, Stop date: 11/02/19 9:00:00 [employer] W[employer] Sucralfate No 1 gm, 1 Isaak lauren 10-04 tab, l 15:00: Route: PO, 00 Drug form: TAB, BID, Dosing Weight 45.455, kg, Start date: 10/04/19 9:00:00 [employer] W[employer], Duration: 30 day, Stop date: 11/02/19 17:00:00 [employer] W[employer] Robitussin No Notes: Memor ia - (Same as: l 04:13: Robitussin ) Robitussin No Notes: Memor ia - (Same as: l 04:13: Robitussin ) Robitussin No Notes: Memor ia - (Same as: l 04:13: Robitussin ) Guaifenesin 0 No 10 ml, Isaak lauren 20 MG/ML / 10-04 Route: PO, l Phenylephri 03:58: Drug Form: Jasbir nd LIQ, Hydrochlori Dosing de 1 MG/ML Weight Oral 45.455, Solution kg, Q6H, PRN Cough/Ricky estion, Start date: 10/03/19 21:58:00 [employer] W[employer], Duration: 30 day, Stop date: 11/02/19 21:57:00 [employer] W[employer] Guaifenesin 2020-0 No 10 ml, Isaak lauren 20 MG/ML / 10-04 Route: PO, l Phenylephri 03:58: Drug Form: Jasbir nd LIQ, Hydrochlori Dosing de 1 MG/ML Weight Oral 45.455, Solution kg, Q6H, PRN Cough/Ricky estion, Start date: 10/03/19 21:58:00 FI[employer] WATCH[employer], Duration: 30 day, Stop date: 11/02/19 21:57:00 [employer] W[employer] Guaifenesin 2020-0 No 10 ml, Isaak lauren 20 MG/ML / 10-04 Route: PO, l Phenylephri 03:58: Drug Form: Jasbir nd LIQ, Hydrochlori Dosing de 1 MG/ML Weight Oral 45.455, Solution kg, Q6H, PRN Cough/Ricky estion, Start date: 10/03/19 21:58:00 FI[employer] WATCH[employer], Duration: 30 day, Stop date: 11/02/19 21:57:00 FI[employer] WATCHER Habitrol No Notes: Memoria 10-04 (Same as: l 03:31: Habitrol) [place] "Remove old patch before applicatio n of new patch" WASTE: F/P - P Waste Black; E - P Waste Black Habitrol No Notes: Memoria 10-04 (Same as: l 03:31: Habitrol) [place] 00 "Remove old patch before applicatio n of new patch" WASTE: F/P - P Waste Black; E - P Waste Black Habitrol No Notes: Memoria 10-04 (Same as: l 03:31: Habitrol) Jasbir 00 "Remove old patch before applicatio n of new patch" WASTE: F/P - P Waste Black; E - P Waste Black Trileptal No Notes: Do Mem oria 10-04 not crush l 03:27: or chew. Jasbir (Same as: Trileptal) Trileptal No Notes: Do Mem oria - not crush l 03:27: or chew. (Same as: Trileptal) Trileptal No Notes: Do Mem oria 10-04 not crush l 03:27: or chew. (Same as: Trileptal) Seroquel No Notes: Memoria - (Same as: l 03:00: SEROquel) Seroquel 0 No Notes: Memoria - (Same as: l 03:00: SEROquel) Seroquel No Notes: Memoria - (Same as: l 03:00: SEROquel) Cogentin 2019-0 Yes 0.5 mg, Memori a - PO, TID, 0 l 02:59: Refill(s) Prinivil 0 Yes 2.5 mg, Memori a -21 PO, Daily, l 02:59: 0 Refill(s) varenicline 0 Yes 0.5 mg = 1 Memoria 0.5 MG Oral 10-04 tab, PO, l Tablet 02:59: Bedtime, # Estelle nn [Chantix] 00 30 tab, 0 Refill(s) oxcarbazepi 0 Yes 150 mg = 1 Memoria ne 150 MG - tab, PO, l Oral Tablet 02:59: BID, [...] l Oral Tablet 02:59: Daily, # He luisaann [Lexapro] 00 30 tab, 0 Refill(s) Klonopin 0 No 0.25 mg, Memor ia -21 PO, BID, 0 l 02:59: Refill(s) Jasbir quetiapine 0 Yes 100 mg = 1 M emoria 100 MG Oral -21 tab, PO, l Tablet 02:59: Bedtime, # Estelle nn [Seroquel] 00 270 tab, 0 Refill(s) Pramipexole 0 Yes 0.25 mg = M emoria dihydrochlo 10-04 1 tab, PO, l ride 0.25 02:59: TID, # 90 Her do MG Oral 00 tab, 0 Tablet Refill(s) [Mirapex] Janumet 0 No PO, BID, 0 Isaak lauren 10-04 Refill(s) l 02:59: Jasbir clopidogrel 0 Yes 75 mg = 1 M emoria 75 mg oral -21 tab, PO, l tablet 02:59: Daily, # Jasbir 00 30 tab, 0 Refill(s) Cogentin 0 Yes 0.5 mg, Memori a -21 PO, TID, 0 l 02:59: Refill(s) [place] Prinivil 2019-0 Yes 2.5 mg, Memori a -21 PO, Daily, l 02:59: 0 Jasbir 00 Refill(s) varenicline 0 Yes 0.5 mg = [...] OIN 02:59: Refill(s) Estelle horowitz 00 Simvastatin 2019-0 Yes 40 mg = 1 M emoria 40 MG Oral -21 tab, PO, l Tablet 02:59: Bedtime, # Estelle nn [Zocor] 00 90 tab, 1 Refill(s) Escitalopra 2020-0 Yes 20 mg = 1 M emoria m 20 MG -21 tab, PO, l Oral Tablet 02:59: Daily, # He rmann [Lexapro] 00 30 tab, 0 Refill(s) Klonopin 2019-0 No 0.25 mg, Memor ia -21 PO, BID, 0 l 02:59: Refill(s) Jasbir quetiapine 2019-0 Yes 100 mg = 1 [...] Isaak lauren 10-04 Refill(s) l 02:59: Jasbir clopidogrel 2019-0 Yes 75 mg = 1 M emoria 75 mg oral -21 tab, PO, l tablet 02:59: Daily, # [place] 00 30 tab, 0 Refill(s) Cogentin 2019-0 Yes 0.5 mg, Memori a -21 PO, TID, 0 l 02:59: Refill(s) Jasbir Prinivil 2019-0 Yes 2.5 mg, Memori a -21 PO, Daily, l 02:59: 0 [place] 00 Refill(s) varenicline 2019-0 Yes 0.5 mg = 1 Memoria 0.5 MG Oral -21 tab, PO, l Tablet 02:59: Bedtime, # Estelle nn [Chantix] 00 30 tab, 0 Refill(s) oxcarbazepi 2019-0 Yes 150 mg = 1 Memoria ne 150 MG -21 tab, PO, l Oral Tablet 02:59: BID, # 120 [place] [Trileptal] 00 tab, 0 Refill(s) lidocaine 2020-0 Yes TOP, TID, Mem oria 5% 3.5 gm 10-04 0 l top OIN 02:59: Refill(s) Estelle nn 00 Simvastatin 2020-0 Yes 40 mg = 1 M emoria 40 MG Oral -21 tab, PO, l Tablet 02:59: Bedtime, # Estelle nn [Zocor] 00 90 tab, 1 Refill(s) Escitalopra 2020-0 Yes 20 mg = 1 M emoria m 20 MG -21 tab, PO, l Oral Tablet 02:59: Daily, # He rmann [Lexapro] 00 30 tab, 0 Refill(s) Klonopin 2020-0 No 0.25 mg, Memor ia -21 PO, BID, 0 l 02:59: Refill(s) quetiapine 2019-0 Yes 100 mg = 1 M emoria 100 MG Oral -21 tab, PO, l Tablet 02:59: Bedtime, # Estelle nn [Seroquel] 00 270 tab, 0 Refill(s) Pramipexole 2020-0 Yes 0.25 mg = M emoria dihydrochlo 10-04 1 tab, PO, l ride 0.25 02:59: TID, # 90 Her do MG Oral 00 tab, 0 Tablet Refill(s) [Mirapex] Janumet 2020-0 No PO, BID, 0 Isaak lauren 10-04 Refill(s) l 02:59: clopidogrel 2019-0 Yes 75 mg = 1 M emoria 75 mg oral -21 tab, PO, l tablet 02:59: Daily, # [place] 00 30 tab, 0 Refill(s) Lovenox 2020-0 No Notes: Memoria 10-04 (Same as: l 00:15: Lovenox) Dextrose 2020-0 No 12.5 gm, Memor ia 50% Syringe 10-04 25 mL, l (D50W) 00:15: Route: IVP, Drug Form: INJ, Dosing Weight 45.455, kg, PRN, PRN Blood Glucose Results, Start date: 10/03/19 18:15:00 FIRE WATCHER, Duration: 30 day, Stop date: 11/02/19 18:14:00 FIRE WATCHER, 0 Glucagon 2019-0 No 1 mg, Memoria 10-04 Route: IM, l 00:15: Drug form: PDR/INJ, PRN, Dosing Weight 45.455, kg, PRN Blood Glucose Results, Start date: 10/03/19 18:15:00 FIRE WATCHER, Duration: 30 day, Stop date: 11/02/19 18:14:00 FIRE WATCHER, 0 Insulin 2020-0 No Notes: Memoria Lispro 1-21 (Same as: l 00:15: Humalog) [place] 00 Roll in palms of hands gently; Do not shake vigorously . WASTE: F/P - Black; E - Municipal Trash Bin Stable for 28 days at room temperatur e. Expires in days from ____Date Kayexalate 2020-0 No Notes: Memor ia 1-21 (sodium l 00:15: polystyren [place] 00 e sulfonate 15 gm/60 ml GAIL) Shake well before use. (Same as: Kayexalate , SPS) Lovenox 2020-0 No Notes: Memoria 1-21 (Same as: l 00:15: Lovenox) [place] 00 Dextrose 2020-0 No 12.5 gm, Memor ia 50% Syringe -21 25 mL, l (D50W) 00:15: Route: Jasbir 00 IVP, Drug Form: INJ, Dosing Weight 45.455, kg, PRN, PRN Blood Glucose Results, Start date: 10/03/19 18:15:00 FIRE WATCHER, Duration: 30 day, Stop date: 11/02/19 18:14:00 FIRE WATCHER, 0 Glucagon 2020-0 No 1 mg, Memoria 10-04 Route: IM, l 00:15: Drug form: Jasbir 00 PDR/INJ, PRN, Dosing Weight 45.455, kg, PRN Blood Glucose Results, Start date: 10/03/19 18:15:00 FIRE WATCHER, Duration: 30 day, Stop date: 11/02/19 18:14:00 FIRE WATCHER, 0 Insulin 2020-0 No Notes: Memoria Lispro -21 (Same as: l 00:15: Humalog) Jasbir 00 Roll in palms of hands gently; Do not shake vigorously . WASTE: F/P - Black; E - Municipal Trash Bin Stable for 28 days at room temperatur e. Expires in days from ____Date Kayexalate 0 No Notes: Memor ia 1-21 (sodium l 00:15: polystyren Jasbir 00 e sulfonate 15 gm/60 ml GAIL) Shake well before use. (Same as: Kayexalate , SPS) Lovenox 2019-0 No Notes: Memoria 1-21 (Same as: l 00:15: Lovenox) Jasbir 00 Dextrose 2019-0 No 12.5 gm, Memor ia 50% Syringe -21 25 mL, l (D50W) 00:15: Route: [place] 00 IVP, Drug Form: INJ, Dosing Weight 45.455, kg, PRN, PRN Blood Glucose Results, Start date: 10/03/19 18:15:00 FIRE WATCHER, Duration: 30 day, Stop date: 11/02/19 18:14:00 FIRE WATCHER, 0 Glucagon 2019-0 No 1 mg, Memoria 10-04 Route: IM, l 00:15: Drug form: Jasbir 00 PDR/INJ, PRN, Dosing Weight 45.455, kg, PRN Blood Glucose Results, Start date: 10/03/19 18:15:00 FIRE WATCHER, Duration: 30 day, Stop date: 11/02/19 18:14:00 FIRE WATCHER, 0 Insulin 2019-0 No Notes: Memoria Lispro -21 (Same as: l 00:15: Humalog) 00 Roll in palms of hands gently; Do not shake vigorously . WASTE: F/P - Black; E - Municipal Trash Bin Stable for 28 days at room temperatur e. Expires in days from ____Date Kayexalate 2019-0 No Notes: Memor ia 1-21 (sodium l 00:15: polystyren [place] 00 e sulfonate 15 gm/60 ml GAIL) Shake well before use. (Same as: Kayexalate , SPS) Dextrose 2019-0 No 12.5 gm, Memor ia 50% Syringe 1-20 25 mL, l (D50W) 23:12: Route: Jasbir 00 IVP, Drug Form: INJ, Dosing Weight 45.455, kg, PRN, PRN Blood Glucose Results, Start date: 10/03/19 17:12:00 FIRE WATCHER, Duration: 30 day, Stop date: 11/02/19 17:11:00 FIRE WATCHER, 0 Glucagon 2020-0 No 1 mg, Memoria -20 Route: IM, l 23:12: Drug form: Jasbir 00 PDR/INJ, PRN, Dosing Weight 45.455, kg, PRN Blood Glucose Results, Start date: 10/03/19 17:12:00 FIRE WATCHER, Duration: 30 day, Stop date: 11/02/19 17:11:00 FIRE WATCHER, 0 Ondansetron 2020-0 No Notes: Isaak lauren 1-20 (Same as: l 23:12: Zofran) Jasbir MEDICATION WASTE Product Size: 4 mg Product Wasted: ___ mg Trazodone 2020-0 No Notes: Memori a 1-20 (Same As: l 23:12: Desyrel) Acetaminoph 2020-0 No Notes: Do M emoria en - not exceed l 23:12: 4 gm/day. Jasbir 00 (Same as: Tylenol) Dextrose 2020-0 No 12.5 gm, Memor ia 50% Syringe 1-20 25 mL, l (D50W) 23:12: Route: Jasbir 00 IVP, Drug Form: INJ, Dosing Weight 45.455, kg, PRN, PRN Blood Glucose Results, Start date: 10/03/19 17:12:00 FIRE WATCHER, Duration: 30 day, Stop date: 11/02/19 17:11:00 FIRE WATCHER, 0 Glucagon 2020-0 No 1 mg, Memoria 20 Route: IM, l 23:12: Drug form: [place] 00 PDR/INJ, PRN, Dosing Weight 45.455, kg, PRN Blood Glucose Results, Start date: 10/03/19 17:12:00 FIRE WATCHER, Duration: 30 day, Stop date: 11/02/19 17:11:00 FIRE WATCHER, 0 Ondansetron 2020-0 No Notes: Isaak lauren 1-20 (Same as: l 23:12: Zofran) Jasbir MEDICATION WASTE Product Size: 4 mg Product Wasted: ___ mg Trazodone 2020-0 No Notes: Memori a 1-20 (Same As: l 23:12: Desyrel) Acetaminoph 2019-0 No Notes: Do M emoria en 1-20 not exceed l 23:12: 4 gm/day. (Same as: Tylenol) Dextrose 2019-0 No 12.5 gm, Memor ia 50% Syringe 1-20 25 mL, l (D50W) 23:12: Route: IVP, Drug Form: INJ, Dosing Weight 45.455, kg, PRN, PRN Blood Glucose Results, Start date: 10/03/19 17:12:00 FIRE WATCHER, Duration: 30 day, Stop date: 11/02/19 17:11:00 FIRE WATCHER, 0 Glucagon No 1 mg, Memoria 10-03 Route: IM, l 23:12: Drug form: PDR/INJ, PRN, Dosing Weight 45.455, kg, PRN Blood Glucose Results, Start date: 10/03/19 17:12:00 FIRE WATCHER, Duration: 30 day, Stop date: 11/02/19 17:11:00 FIRE WATCHER, 0 Ondansetron No Notes: Isaak lauren -20 (Same as: l 23:12: Zofran) MEDICATION WASTE Product Size: 4 mg Product Wasted: ___ mg Trazodone No Notes: Memori a -20 (Same As: l 23:12: Desyrel) Acetaminoph 2019-0 No Notes: Do M emoria en 1-20 not exceed l 23:12: 4 gm/day. (Same as: Tylenol) D5LR 1,000 0 No 1,000 mL, Me moria mL -20 Rate: 75 l 23:11: ml/hr, Infuse over: 13.3 hr, Route: IV, Dosing Weight 45.455 kg, Total Volume: 1,000, Start date: 10/03/19 17:11:00 FIRE WATCHER, Duration: 30 day, Stop date: 11/02/19 17:10:00 FIRE WATCHER, 1.4, m2, 0 Promethazin 2019-0 No Notes: Do M emoria e 1-20 not give l 23:11: IV push. (Same as: Phenergan) D5LR 1,000 2019-0 No 1,000 mL, Me moria mL 1-20 Rate: 75 l 23:11: ml/hr, Jasbir 00 Infuse over: 13.3 hr, Route: IV, Dosing Weight 45.455 kg, Total Volume: 1,000, Start date: 10/03/19 17:11:00 FIRE WATCHER, Duration: 30 day, Stop date: 11/02/19 17:10:00 FIRE WATCHER, 1.4, m2, 0 Promethazin 2020-0 No Notes: Do M emoria e 1-20 not give l 23:11: IV push. [place] 00 (Same as: Phenergan) D5LR 1,000 0 No 1,000 mL, Me moria mL 1-20 Rate: 75 l 23:11: ml/hr, [place] 00 Infuse over: 13.3 hr, Route: IV, Dosing Weight 45.455 kg, Total Volume: 1,000, Start date: 10/03/19 17:11:00 FIRE WATCHER, Duration: 30 day, Stop date: 11/02/19 17:10:00 FIRE WATCHER, 1.4, m2, 0 Promethazin 2020-0 No Notes: Do M emoria e 1-20 not give l 23:11: IV push. [place] 00 (Same as: Phenergan) Ceftriaxone No Notes: Isaak lauren 1-20 (Same As: l 22:28: Rocephin). Use with 100 mL NS and infuse over 30 min MEDICATION WASTE Product Size: 1000 mg Product Wasted: ___ mg Ceftriaxone 2019-0 No Notes: Isaak lauren 1-20 (Same As: l 22:28: Rocephin). [place] 00 Use with 100 mL NS and infuse over 30 min MEDICATION WASTE Product Size: 1000 mg Product Wasted: ___ mg Ceftriaxone 2019-0 No Notes: Isaak lauren 1-20 (Same As: l 22:28: Rocephin). Jasbir 00 Use with 100 mL NS and infuse over 30 min MEDICATION WASTE Product Size: 1000 mg Product Wasted: ___ mg Saline No Notes: Memoria Flush 0.9% -20 Same as: l 19:59: BD Jasbir 00 Posiflush Sterile Calcium 2020-0 No 1,000 mL, Memor ia Chloride 1-20 2,000 l 0.0014 19:59: ml/hr, [place] MEQ/ML / 00 Infuse Potassium Over: 0.5 Chloride hr, Route: 0.004 IV, 1,000, MEQ/ML / Drug form: Sodium INJ, ONCE, Chloride Priority: 0.103 STAT, MEQ/ML / Dosing Sodium Weight Lactate 45.455 kg, 0.028 Start MEQ/ML date: Injectable 10/03/19 Solution 13:59:00 FIRE WATCHER, Stop date: 10/03/19 13:59:00 FIRE WATCHER, 0 Ondansetron 2020-0 No Notes: Isaak lauren 1-20 (Same as: l 59: Ying) Jasbir 00 MEDICATION WASTE Product Size: 4 mg Product Wasted: ___ mg Saline 2019-0 No Notes: Memoria Flush 0.9% 1-20 Same as: l 19:59: BD Posiflush Sterile Calcium 2020-0 No 1,000 mL, Memor ia Chloride 1-20 2,000 l 0.0014 19:59: ml/hr, [place] MEQ/ML / 00 Infuse Potassium Over: 0.5 Chloride hr, Route: 0.004 IV, 1,000, MEQ/ML / Drug form: Sodium INJ, ONCE, Chloride Priority: 0.103 STAT, MEQ/ML / Dosing Sodium Weight Lactate 45.455 kg, 0.028 Start MEQ/ML date: Injectable 10/03/19 Solution 13:59:00 FIRE WATCHER, Stop date: 10/03/19 13:59:00 FIRE WATCHER, 0 Ondansetron 2020-0 No Notes: Isaak lauren 1-20 (Same as: l :59: Zoan) Jasbir 00 MEDICATION WASTE Product Size: 4 mg Product Wasted: ___ mg Saline 2019-0 No Notes: Memoria Flush 0.9% 1-20 Same as: l 19:59: BD [place] 00 Posiflush Sterile Calcium 2020-0 No 1,000 mL, Memor ia Chloride 1-20 2,000 l 0.0014 19:59: ml/hr, [place] MEQ/ML / 00 Infuse Potassium Over: 0.5 Chloride hr, Route: 0.004 IV, 1,000, MEQ/ML / Drug form: Sodium INJ, ONCE, Chloride Priority: 0.103 STAT, MEQ/ML / Dosing Sodium Weight Lactate 45.455 kg, 0.028 Start MEQ/ML date: Injectable 10/03/19 Solution 13:59:00 FIRE WATCHER, Stop date: 10/03/19 13:59:00 FIRE WATCHER, 0 Ondansetron No Notes: Isaak lauren -20 (Same as: l 19:59: Zofran) Jasbir 00 MEDICATION WASTE Product Size: 4 mg Product Wasted: ___ mg baclofen 2017-09 Yes 5 mg = 1 Mem oria mg oral 2-26 tab, PO, l tablet 05:08: TID, PRN [place] 00 Muscle Spasms, # 15 tab, 0 Refill(s) baclofen 2017-09 Yes 5 mg = 1 Mem oria mg oral 2-26 tab, PO, l tablet 05:08: TID, PRN Jasbir 00 Muscle Spasms, # 15 tab, 0 Refill(s) baclofen 2017-09 Yes 5 mg = 1 Mem oria mg oral 2-26 tab, PO, l tablet 05:08: TID, PRN [place] 00 Muscle Spasms, # 15 tab, 0 [...] kg, Priority: STAT, Start date: 09/07/18 21:14:00 FIRE WATCHER, Stop date: 09/07/18 21:14:00 FIRE WATCHER Dexamethaso 2018-1 No 4 mg, 1 Mem oria ne 2-26 mL, Route: l 03:14: IM, Drug form: INJ, ONCE, Dosing Weight 45.455, kg, Priority: STAT, Start date: 09/07/18 21:14:00 FIRE WATCHER, Stop date: 09/07/18 21:14:00 FIRE WATCHER Dexamethaso 2017- No 4 mg, 1 Mem oria ne 2-26 mL, Route: l 03:14: IM, Drug form: INJ, ONCE, Dosing Weight 45.455, kg, Priority: STAT, Start date: 09/07/18 21:14:00 FIRE WATCHER, Stop date: 09/07/18 21:14:00 FIRE WATCHER Tramadol 2018- No 50 kg, Memori a 2-26 Priority: l 03:00: STAT Start date: 09/07/18 21:00:00 FIRE WATCHER, Stop date: 09/07/18 21:00:00 FIRE WATCHER Tramadol 2018-1 No 50 kg, Memori a 2-26 Priority: l 03:00: STAT Start date: 09/07/18 21:00:00 FIRE WATCHER, Stop date: 09/07/18 21:00:00 FIRE WATCHER Tramadol 2017- No 50 kg, Memori a 2-26 Priority: l 03:00: STAT Start date: 09/07/18 21:00:00 FIRE WATCHER, Stop date: 09/07/18 21:00:00 FIRE WATCHER aspirin 2017-0 Yes 81mg QD Take 81 mg Meth brenna (ECOTRIN) 9-[address] 81 MG 13:45: daily. [facility] l coated tablet glimepiride Yes 2mg QD Take 2 mg M ethodi (AMARYL) 2 9-[address] MG tablet 13:45: daily [facility] 26 before l breakfast. HYDROcodone 2016- Yes 1{tbl} Q4H Take 1 Me thodi [...] thodi -acetaminop 9-[address] hen (ERCOM) 13:45: mouth [facility] ta 7.5-325 mg 26 [...] [facility] 26 l coated tablet glimepiride 0 Yes 2mg QD Take 2 mg M [...] Hospit a 26 times a l day. clopidogrel Yes TK 1 T PO M ethodi (PLAVIX) 75 9-[address] mg tablet 00:00: [facility]ospita 00 l clopidogrel Yes TK 1 T PO M ethodi (PLAVIX) 75 9-[address] mg tablet 00:00: [facility]ospita 00 l clopidogrel Yes TK 1 T PO M ethodi (PLAVIX) 75 9-[address] mg tablet 00:00: [facility]osp[facility] 00 l clopidogrel Yes TK 1 T PO M ethodi (PLAVIX) 75 9-[address] mg tablet 00:00: [facility]ospita 00 l lisinopril Yes TK 1 T PO Me thodi (PRINIVIL,Z 8-[address] ESTRIL) 2.5 00:00: Hospit a mg tablet 00 l SEPUMET Yes TK 1 T PO Metho di 50-500 mg 8-[address] per tablet 00:00: [facility]ospita l lisinopril Yes TK 1 T PO Me thodi (PRINIVIL,Z 8-[address] ESTRIL) 2.5 00:00: Hospit a mg tablet l SEPUMET Yes TK 1 T PO Metho di 50-500 mg 8-[address] per tablet 00:00: [facility]ospita 00 l lisinopril Yes TK 1 T PO Me thodi (PRINIVIL,Z 8-[address] ESTRIL) 2.5 00:00: Hospit a mg tablet l SEPUMET Yes TK 1 T PO [...] MG tablet 00:00: [facility]ospita 00 l busPIRone 2017-0 Yes TK 1 T PO Met hodi (BUSPAR) 30 8-[address] MG tablet 00:00: [facility]ospita 00 l busPIRone 2017-0 Yes TK 1 T PO Met hodi (BUSPAR) 30 8-[address] MG tablet 00:00: [facility]ospita 00 l Sodium 2017-0 No 500 mL, Memoria Chloride 3-29 500 ml/hr, l 0.154 09:23: Infuse Jasbir MEQ/ML 00 Over: 1 Injectable hr, Route: Solution IV, 500, Drug form: INJ, ONCE, Priority: STAT, Dosing Weight 59.091 kg, Start date: 12/10/16 4:23:00 CDT, Duration: 1 doses or times, Stop date: 12/10/16 4:23:00 CDT Sodium 2017-0 No 500 mL, Memoria Chloride 3-29 500 ml/hr, l 0.154 09:23: Infuse [place] MEQ/ML 00 Over: 1 Injectable hr, Route: Solution IV, 500, Drug form: INJ, ONCE, Priority: STAT, Dosing Weight 59.091 kg, Start date: 12/10/16 4:23:00 CDT, Duration: 1 doses or times, Stop date: 12/10/16 4:23:00 CDT Sodium 2017-0 No 500 mL, Memoria Chloride 3-29 500 ml/hr, l 0.154 09:23: Infuse [place] MEQ/ML 00 Over: 1 Injectable hr, Route: Solution IV, 500, Drug form: INJ, ONCE, Priority: STAT, Dosing Weight 59.091 kg, Start date: 12/10/16 4:23:00 CDT, Duration: 1 doses or times, Stop date: 12/10/16 4:23:00 CDT Saline 2016- No Notes: Memoria Flush 0.9% 3-29 Same as: l 07:02: BD [place] 00 Posiflush Sterile Saline No Notes: Memoria Flush 0.9% 3-29 Same as: l 07:02: BD [place] 00 Posiflush Sterile Saline No Notes: Memoria Flush 0.9% 3-29 Same as: l 07:02: BD Jasbir 00 Posiflush Sterile Ondansetron Yes Special Mem oria 4 MG 06-09 Instructio l Disintegrat 10:40: ns: Chris n ing Tablet 00 Dissolve [Zofran] tab under tongue Ondansetron Yes Special Mem oria 4 MG -26 Instructio l Disintegrat 10:40: ns: Chris n ing Tablet 00 Dissolve [Zofran] tab under tongue Ondansetron Yes Special Mem oria 4 MG 26 Instructio l Disintegrat 10:40: ns: Chris n ing Tablet 00 Dissolve [Zofran] tab under tongue Ondansetron No Notes: Isaak lauren 06-09 (Same as: l 10:13: Zofran) Jasbir 00 MEDICATION WASTE Product Size: 4 mg Product Wasted: ___ mg Ativan No Notes: Memoria 06-09 (Same as: l 10:13: Ativan) [place] 00 Ondansetron No Notes: Isaak lauren 06-09 (Same as: l 10:13: Zofran) Jasbir 00 MEDICATION WASTE Product Size: 4 mg Product Wasted: ___ mg Ativan No Notes: Memoria 06-09 (Same as: l 10:13: Ativan) Ondansetron No Notes: Isaak lauren 06-09 (Same as: l 10:13: Zofran) Jasbir 00 MEDICATION WASTE Product Size: 4 mg Product Wasted: ___ mg Ativan No Notes: Memoria 06-09 (Same as: l 10:13: Ativan) Jasbir Sodium No 1,000 mL, Memori a Chloride 7-24 1,000 l 0.154 04:34: ml/hr, Jasbir MEQ/ML 00 Infuse Injectable Over: 1 Solution hr, Route: IV, ONCE, Priority: STAT, Dosing Weight 59.091 kg, Start date: 04/05/15 23:34:00, Duration: 1 doses or times, Stop date: 04/05/15 23:34:00 Sodium No 1,000 mL, Memori a Chloride 7-24 1,000 l 0.154 04:34: ml/hr, Jasbir MEQ/ML 00 Infuse Injectable Over: 1 Solution hr, Route: IV, ONCE, Priority: STAT, Dosing Weight 59.091 kg, Start date: 04/05/15 23:34:00, Duration: 1 doses or times, Stop date: 04/05/15 23:34:00 Sodium No 1,000 mL, Memori a Chloride 7-24 1,000 l 0.154 04:34: ml/hr, [place] MEQ/ML 00 Infuse Injectable Over: 1 Solution hr, Route: IV, ONCE, Priority: STAT, Dosing Weight 59.091 kg, Start date: 04/05/15 23:34:00, Duration: 1 doses or times, Stop date: 04/05/15 23:34:00 Saline No Notes: Memoria Flush 0.9% 7-24 Same as: l 02:36: BD Jasbir 00 Posiflush Sterile Saline No Notes: Memoria Flush 0.9% 7-24 Same as: l 02:36: BD [place] 00 Posiflush Sterile Saline No Notes: Memoria Flush 0.9% 7-24 Same as: l 02:36: BD Jasbir 00 Posiflush Sterile Levaquin No Notes: Do Isaak lauren 04-16 not give l 17:00: w/antacids [place] 00 , dairy pdt & minerals Take 1 hr before or 2 hr after dairy products Levaquin No Notes: Do Isaak lauren 04-16 not give l 17:00: w/antacids [place] 00 , dairy pdt & minerals Take 1 hr before or 2 hr after dairy products Levaquin No Notes: Do Isaak lauren 04-16 not give l 17:00: w/antacids Jasbir 00 , dairy pdt & minerals Take 1 hr before or 2 hr after dairy products predniSONE Yes Special Iasak lauren 10 mg oral 04-15 Instructio l tablet 16:40: ns: take 4 Estelle nn 00 tabs po daily for 3 days then 3 tabs po daily for 3 days then 2 tabs po daily for 3 days then 1 tab po daily for 3 days then stop. Albuterol Yes 2.49 mg = Mem oria 0.83 MG/ML 8-02 3 mL, NEB, l Inhalant 16:40: Q6H, [place] Solution 00 Dyspnea, # 120 ea, 0 Refill(s) tiotropium Yes 18 Memoria 0.018 8-02 microgram l MG/ACTUAT 16:40: = 1 ea, Estelle nn Inhalant 00 INHALATION Powder , RDaily, [Spiriva] # 30 ea, 0 Refill(s) levofloxaci Yes 750 mg = 1 Memoria n 750 mg 02 tab, PO, l oral tablet 16:40: [id number], # Jasbir 00 7 tab, 0 Refill(s) glimepiride Yes 4 mg = 1 Me moria 4 mg oral 02 tab, PO, l tablet 16:40: BID, # 60 Chris n 00 tab, 0 Refill(s) 120 ACTUAT Yes 2 puff, Isaak lauren Budesonide 02 INHALATION l 0.16 16:40: , RBID, # [place] MG/ACTUAT / 00 1 ea, 0 formoterol Refill(s) fumarate 0.0045 MG/ACTUAT Metered Dose Inhaler [Symbicort] lisinopril Yes 10 mg = 1 Me moria 10 mg oral 02 tab, PO, l tablet 16:40: Daily, # Jasbir 00 30 tab, 0 Refill(s) predniSONE Yes [...] 3 mL, NEB, l Inhalant 16:40: Q6H, [place] Solution 00 Dyspnea, # 120 ea, 0 Refill(s) tiotropium Yes 18 Memoria 0.018 8-02 microgram l MG/ACTUAT 16:40: = 1 ea, Estelle nn Inhalant 00 INHALATION Powder , RDaily, [Spiriva] # 30 ea, 0 Refill(s) levofloxaci Yes 750 mg = 1 Memoria n 750 mg 8-02 tab, PO, l oral tablet 16:40: [id number], # Gruver 00 7 tab, 0 Refill(s) glimepiride Yes 4 mg = 1 Me moria 4 mg oral 8-02 tab, PO, l tablet 16:40: BID, # 60 Chris n 00 tab, 0 Refill(s) 120 ACTUAT Yes 2 puff, Isaak lauren Budesonide 802 INHALATION l 0.16 16:40: , RBID, # [place] MG/ACTUAT / 00 1 ea, 0 formoterol Refill(s) fumarate 0.0045 MG/ACTUAT Metered Dose Inhaler [Symbicort] lisinopril Yes 10 mg = 1 Me moria 10 mg oral 04-15 tab, PO, l tablet 16:40: Daily, # Jasbir 00 30 tab, 0 Refill(s) predniSONE Yes Special Isaak lauren 10 mg oral 02 Instructio l tablet 16:40: ns: take 4 Estelle nn 00 tabs po daily for 3 days then 3 tabs po daily for 3 days then 2 tabs po daily for 3 days then 1 tab po daily for 3 days then stop. Albuterol Yes 2.49 mg = Mem oria 0.83 MG/ML 04-15 3 mL, NEB, l Inhalant 16:40: Q6H, [place] Solution 00 Dyspnea, # 120 ea, 0 Refill(s) tiotropium Yes 18 Memoria 0.018 04-15 microgram l MG/ACTUAT 16:40: = 1 ea, Estelle nn Inhalant 00 INHALATION Powder , RDaily, [Spiriva] # 30 ea, 0 Refill(s) levofloxaci Yes 750 mg = 1 Memoria n 750 mg -02 tab, PO, l oral tablet 16:40: [id number], # Jasbir 00 7 tab, 0 Refill(s) glimepiride Yes 4 mg = 1 Me moria 4 mg oral 802 tab, PO, l tablet 16:40: BID, # 60 Chris n 00 tab, 0 Refill(s) 120 ACTUAT Yes 2 puff, Isaak lauren Budesonide 8-02 INHALATION l 0.16 16:40: , RBID, # [place] MG/ACTUAT / 00 1 ea, 0 formoterol Refill(s) fumarate 0.0045 MG/ACTUAT Metered Dose Inhaler [Symbicort] lisinopril Yes 10 mg = 1 Me moria 10 mg oral 04-15 tab, PO, l tablet 16:40: Daily, # Gru[place] 00 30 tab, 0 Refill(s) Clonidine No Notes: Memori a 04-15 (Same As: l 12:50: Catapres) Gruver 00 Clonidine No Notes: Memori a 04-15 (Same As: l 12:50: Catapres) Jasbir 00 Clonidine No Notes: Memori a 04-15 (Same As: l 12:50: Catapres) Gru[place] 00 120 ACTUAT No Notes: Memor ia Budesonide 04-15 (Same as: l 0.16 01:00: Symbicort) Gru[place] MG/ACTUAT / 00 formoterol fumarate 0.0045 MG/ACTUAT Metered Dose Inhaler [Symbicort] 120 ACTUAT No Notes: Memor ia Budesonide 04-15 (Same as: l 0.16 01:00: Symbicort) Jasbir MG/ACTUAT / 00 formoterol fumarate 0.0045 MG/ACTUAT Metered Dose Inhaler [Symbicort] 120 ACTUAT No Notes: Memor ia Budesonide 04-15 (Same as: l 0.16 01:00: Symbicort) Gruver MG/ACTUAT / 00 formoterol fumarate 0.0045 MG/ACTUAT Metered Dose Inhaler [Symbicort] tiotropium No Notes: Memor ia 0.018 8- (Same As: l MG/ACTUAT 19:00: Spiriva) Herm jose a Inhalant 00 Powder [Spiriva] tiotropium No Notes: Memor ia 0.018 8-01 (Same As: l MG/ACTUAT 19:00: Spiriva) Herm jose a Inhalant 00 Powder [Spiriva] tiotropium No Notes: Memor ia 0.018 8- (Same As: l MG/ACTUAT 19:00: Spiriva) Herm jose a Inhalant 00 Powder [Spiriva] Prednisone No Notes: Memor ia 8- Take with l 18:05: food. Jasbir 00 Prednisone No Notes: Memor ia 8- Take with l 18:05: food. Gru[place] 00 Prednisone No Notes: Memor ia 8- Take with l 18:05: food. [place] 00 Levaquin No Notes: Memoria 8- (Same l 17:00: as:Levaqui Gruver 00 n) Levaquin No Notes: Memoria 8 (Same l 17:00: as:Levaqui Jasbir 00 n) Levaquin No Notes: Memoria 8 (Same l 17:00: as:Levaqui Gruver 00 n) potassium No Notes: Memori a phosphate-s 04-14 Non-Fomrul l odium 12:03: [facility]. Jasbir phosphate 00 (Same as: 250 mg-45 K-Phos) mg-298 mg oral tablet potassium No Notes: Memori a phosphate-s 8 Non-Fomrul l odium 12:03: marilou Drug. Gruver phosphate 00 (Same as: 250 mg-45 K-Phos) mg-298 mg oral tablet potassium No Notes: Memori a phosphate-s 8-01 Non-Fomrul l odium 12:03: marilou Drug. Jasbir phosphate 00 (Same as: 250 mg-45 K-Phos) mg-298 mg oral tablet Methylpredn No Notes: Isaak lauren isolone - (Same l 02:00: as:Solu-ME Jasbir 00 DROL, A-Methapre d) Pravastatin No Notes: Isaak lauren 8- (Same as: l 02:00: Pravachol) Jasbir 00 Pramipexole No Notes: Isaak lauren 8 (Same as: l 02:00: Mirapex) Jasbir 00 Methylpredn No Notes: Isaak lauren isolone 04-14 (Same l 02:00: as:Solu-ME Jasbir 00 DROL, A-Methapre d) Pravastatin No Notes: Isaak lauren 8- (Same as: l 02:00: Pravachol) Pramipexole No Notes: Isaak lauren 8- (Same as: l 02:00: Mirapex) Gruver 00 Methylpredn No Notes: Isaak lauren isolone 8- (Same l 02:00: as:Solu-ME Gruver 00 DROL, A-Methapre d) Pravastatin No Notes: Isaak lauren 8- (Same as: l 02:00: Pravachol) Pramipexole No Notes: Isaak lauren 8- (Same as: l 02:00: Mirapex) Alprazolam No Notes: Memor ia 1 MG Oral 7-31 With food l Tablet 22:00: or milk Jasbir [Xanax] 00 (Same as: Xanax) Alprazolam No Notes: Memor ia 1 MG Oral 7-31 With food l Tablet 22:00: or milk Gruver [Xanax] 00 (Same as: Xanax) Alprazolam No Notes: Memor ia 1 MG Oral 7-31 With food l Tablet 22:00: or milk Gruver [Xanax] 00 (Same as: Xanax) Buspirone No Notes: Memori a 7-31 (Same As: l 18:00: BuSpar) Buspirone No Notes: Memori a 7-31 (Same As: l 18:00: BuSpar) Jasbir 00 Buspirone No Notes: Memori a 7-31 (Same As: l 18:00: BuSpar) Lisinopril No Notes: Memor ia 7-31 (Same as: l 17:30: Prinivil, Jasbir 00 Zestril) Lisinopril No Notes: Memor ia 7-31 (Same as: l 17:30: Prinivil, Gruver 00 Zestril) Lisinopril No Notes: Memor ia 7-31 (Same as: l 17:30: Prinivil, Gruver 00 Zestril) Metformin No Notes: Memori a 7-31 (Same as: l 17:00: Glucophage Jasbir 00 ) Take with meal Januvia No Notes: Memoria 7-31 (Same as: l 17:00: Januvia) Gruver Sucralfate No Notes: January emoria 7-31 interfere l 17:00: w/enteral Jasbir 00 feeds - Take 1 hr before or 2 hr after antacids, dairy pdt, meals & minerals - On empty stomach. (Same As: Carafate) Metformin No Notes: Memori a 7-31 (Same as: l 17:00: Glucophage Gruver 00 ) Take with meal Januvia No Notes: Memoria 7-31 (Same as: l 17:00: Januvia) Jasbir 00 Sucralfate No Notes: January emoria 7-31 interfere l 17:00: w/enteral Gruver 00 feeds - Take 1 hr before or 2 hr after antacids, dairy pdt, meals & minerals - On empty stomach. (Same As: Carafate) Metformin No Notes: Memori a 7-31 (Same as: l 17:00: Glucophage Gruver 00 ) Take with meal Sepuvia No Notes: Memoria 7-31 (Same as: l 17:00: Januvia) Jasbir 00 Sucralfate No Notes: January emoria 7-31 interfere [...] 14:00: Pneumovax H ermann ferny type 1 23) vaccine / Refrigerat pneumococca e l capsular polysacchar ferny type 10A vaccine / pneumococca l capsular polysacchar ferny type 11A vaccine / pneumococca l capsular polysacchar ferny type 12F vaccine / pneumococca l capsular polysacchar glimepiride No Notes: Isaak lauren 7-31 (Same as: l 14:00: Amaryl) Aspirin / No Notes: Do Mem oria Calcium 7-31 not crush l Carbonate 14:00: or chew. jose a (Same As: Ecotrin) Prednisone No Notes: Memor ia 7-31 Take with l 14:00: food. Nicoderm No Notes: Memoria C-Q 7-31 (Same as: l 14:00: Habitrol) "Remove old patch before applicatio n of new patch" Lexapro No Notes: Memoria 7-31 (Same as: l 14:00: Lexapro) pneumococca No Notes: Isaak lauren l capsular 7-31 (Same as: l polysacchar 14:00: Pneumovax H ermann ferny type 1 23) vaccine / Refrigerat pneumococca e l [...] ia 7-31 Take with l 14:00: food. Jasbir 00 Nicoderm No Notes: Memoria C-Q 7-31 (Same as: l 14:00: Habitrol) Gruver 00 "Remove old patch before applicatio n of new patch" Lexapro No Notes: Memoria 7-31 (Same as: l 14:00: Lexapro) Gruver 00 pneumococca No Notes: Isaak lauren l capsular 7-31 (Same as: l polysacchar 14:00: Pneumovax H ermann ferny type 1 ) vaccine / Refrigerat pneumococca e l capsular polysacchar ferny type 10A vaccine / pneumococca l capsular polysacchar ferny type 11A vaccine / pneumococca l capsular polysacchar ferny type 12F vaccine / pneumococca l capsular polysacchar glimepiride No Notes: Isaak lauren 7-31 (Same as: l 14:00: Amaryl) Gruver 00 Aspirin / No Notes: Do Mem oria Calcium 7-31 not crush l Carbonate 14:00: or chew. Herm jose a (Same As: Ecotrin) Prednisone No Notes: Memor ia 7-31 Take with l 14:00: food. Gruver 00 Protonix No Notes: Memoria 7-31 Tablet l 12:30: should not Gruver 00 be chewed or crushed. (Same as: Protonix) Protonix No Notes: Memoria 7-31 Tablet l 12:30: should not Jasbir 00 be chewed or crushed. (Same as: Protonix) Protonix No Notes: Memoria 7-31 Tablet l 12:30: should not Gruver 00 be chewed or crushed. (Same as: Protonix) insulin No Notes: Memoria detemir 7-31 Same as l 02:00: Levemir "single patient use only" insulin No Notes: Memoria detemir 7-31 Same as l 02:00: Levemir "single patient use only" insulin No Notes: Memoria detemir 7-31 Same as l 02:00: Levemir "single patient use only" Albuterol No Notes: Memori a 0.833 MG/ML 7-31 (Same as: :00: Duoneb) Jasbir Ipratropium 00 Gordon 0.167 MG/ML Inhalant Solution [DuoNeb] Albuterol No Notes: Memori a 0.833 MG/ML 7-31 (Same as: l :00: Duoneb) Gruver Ipratropium 00 Gordon 0.167 MG/ML Inhalant Solution [DuoNeb] Albuterol No Notes: Memori a 0.833 MG/ML 7-31 (Same as: :00: Duoneb) Gruver Ipratropium 00 Gordon 0.167 MG/ML Inhalant Solution [DuoNeb] Brovana No Notes: SEE Isaak lauren 7-30 RT l 23:02: DOCUMENTAT Gruver 00 ION Same as Brovana Brovana No Notes: SEE Isaak lauren 7-30 RT l 23:02: DOCUMENTAT Jasbir 00 ION Same as Brovana Brovana No Notes: SEE Isaak lauren 7-30 RT l 23:02: DOCUMENTAT Gruver 00 ION Same as Broандрейa Nicoderm No Notes: Memoria C-Q 7-30 (Same as: l 23:00: Habitrol) Jasbir 00 "Remove old patch before applicatio n of new patch" Nicoderm No Notes: Memoria C-Q 7-30 (Same as: l 23:00: Habitrol) Gruver 00 "Remove old patch before applicatio n of new patch" Nicoderm No Notes: Memoria C-Q 7-30 (Same as: l 23:00: Habitrol) Gruver 00 "Remove old patch before applicatio n of new patch" Methylpredn No Notes: Isaak lauren isolone 7-30 (Same l 22:00: as:Solu-ME Jasbir 00 DROL, A-Methapre d) Alprazolam No Notes: Memor ia 1 MG Oral 7-30 With food l Tablet 22:00: or milk Gruver [Xanax] 00 (Same as: Xanax) Alprazolam No Notes: Memor ia 7-30 With food l 22:00: or milk Gruver 00 (Same as: Xanax) Advair No Notes: [...] 7-30 With food l 22:00: or milk Gruver 00 (Same as: Xanax) Advair No Notes: Memoria Diskus 250 7-30 (Same as: l mcg-50 mcg 22:00: Advair) Herm jose a inhalation 00 powder Budesonide No Notes: Memor ia 7-30 (Same As: l 21:11: Pulmicort) Gruver Budesonide No Notes: Memor ia 7-30 (Same As: l 21:11: Pulmicort) Gruver Budesonide No Notes: Memor ia 7-30 (Same As: l 21:11: Pulmicort) Jasbir 00 Ativan No Notes: Memoria 7-30 (Same as: l 21:08: Ativan) Gruver 00 Ativan No Notes: Memoria 7-30 (Same as: l 21:08: Ativan) Jasbir 00 Ativan No Notes: Memoria 7-30 (Same as: l 21:08: Ativan) Gruver 00 Levaquin No Notes: Memoria 7-30 (Same l 21:00: as:Lev n) Levaquin No Notes: Memoria 7-30 (Same l 21:00: as:Levaq Gruver 00 n) Levaquin No Notes: Memoria 7-30 (Same l 21:00: as:aq n) Albuterol No Notes: Memori a 0.833 MG/ML 7-30 (Same as: 20:00: Duoneb) Ipratropium 00 Gordon 0.167 MG/ML Inhalant Solution [DuoNeb] Albuterol No Notes: Memori a 0.833 MG/ML 7-30 (Same as: 20:00: Duoneb) Ipratropium 00 Gordon 0.167 MG/ML Inhalant Solution [DuoNeb] Albuterol No Notes: Memori a 0.833 MG/ML 7-30 (Same as: 20:00: Duoneb) Ipratropium 00 Gordon 0.167 MG/ML Inhalant Solution [DuoNeb] Hydroxyzine Yes [...] l capsule 19:52: ns: PT HAS Herm josea 00 3 DAYS LEFT TO TAKE THIS MED Metformin Yes 1 tab, PO, Me moria hydrochlori 7-30 BID l de 1000 MG 19:52: sitagliptin 50 MG Oral Tablet [] Alprazolam Yes 1 mg, PO, Me moria [...] Instructio l capsule 19:52: ns: PT HAS jose a 3 DAYS LEFT TO TAKE THIS MED Metformin Yes 1 tab, PO, Me moria hydrochlori 7-30 BID l de 1000 MG 19:52: sitagliptin 50 MG Oral Tablet [] Alprazolam Yes 1 mg, PO, Me moria 7-30 QID l 19:52: Hydroxyzine Yes Special Mem oria Hydrochlori 7-30 [...] 00 ns, PO, Daily, # 12 tab Escitalopra Yes 10 mg = 1 M emoria m 10 MG 7-30 tab, PO, l Oral Tablet 19:52: Daily Estelle nn [Lexapro] busPIRone Yes 10 mg = 1 Mem oria 10 mg oral 7-30 tab, PO, l tablet 19:52: TID predniSONE No See Memoria 10 mg oral 7-30 Special l tablet 19:52: Instructio Estelle nn ns, PO, Daily, # 12 tab busPIRone Yes 10 mg = 1 Mem oria 10 mg oral 7-30 tab, PO, l tablet 19:52: TID Levaquin No Notes: Memoria 7-30 (Same l 19:00: as: n) Levaquin No Notes: Memoria 7-30 (Same l 19:00: as: n) Levaquin No Notes: Memoria 7-30 (Same l 19:00: as:Chepe Martell 00 n) Insulin, 0 No Notes: Memoria Aspart, 7-30 Roll in l Human 18:54: palms of Jasbir 00 hands gently; Do not shake vigorously [...] 05/12/14 13:53:00 Glucagon No 1 mg, Memoria 7-30 Route: IM, l 18:54: Drug form: Gruver 00 PDR/INJ, PRN, Dosing Weight 72.727, kg, PRN Blood Glucose Results, Start date: 04/12/14 13:54:00, Duration: 30 day, Stop date: 05/12/14 13:53:00 Insulin, 0 No Notes: Memoria Aspart, 7-30 Roll in l Human 18:54: palms of Jasbir 00 hands gently; Do not shake vigorously [...] 05/12/14 13:53:00 Glucagon No 1 mg, Memoria 7-30 Route: IM, l 18:54: Drug form: Jasbir 00 PDR/INJ, PRN, Dosing Weight 72.727, kg, PRN Blood Glucose Results, Start date: 04/12/14 13:54:00, Duration: 30 day, Stop date: 05/12/14 13:53:00 Insulin, No Notes: Memoria Aspart, 7-30 Roll in l Human 18:54: palms of Jasbir 00 hands gently; Do not shake vigorously [...] 730 Route: IM, l 18:54: Drug form: PDR/INJ, PRN, Dosing Weight 72.727, kg, PRN Blood Glucose Results, Start date: 04/12/14 13:54:00, Duration: 30 day, Stop date: 05/12/14 13:53:00 Acetaminoph No Notes: Isaak lauren en 325 MG / 7-30 (Same as: l Hydrocodone 18:50: [place] Estelle nn Bitartrate 00 325/5) Do 5 MG Oral not exceed Tablet 4gm/day of acetaminop hen. Acetaminoph No Notes: Do M emoria en 7-30 not exceed l 18:50: 4 gm/day. Gruver (Same as: Tylenol) Docusate No Notes: Memoria 7-30 (Same as: l 18:50: Colace) (Do Not Crush) Ondansetron No Notes: Isaak lauren 7-30 (Same as: l 18:50: Zofran) Acetaminoph No Notes: Isaak lauren en 325 MG / 7-30 (Same as: l Hydrocodone 18:50: [place] Estelle nn Bitartrate 00 325/5) Do 5 MG Oral not exceed Tablet 4gm/day of acetaminop hen. Acetaminoph No Notes: Do M emoria en 7-30 not exceed l 18:50: 4 gm/day. Gruver (Same as: Tylenol) Docusate No Notes: Memoria 7-30 (Same as: l 18:50: Colace) Gruver (Do Not Crush) Ondansetron No Notes: Isaak lauren 7-30 (Same as: l 18:50: Zofran) Gruver Acetaminoph No Notes: Isaak lauren en 325 MG / 7-30 (Same as: l Hydrocodone 18:50: [place] Estelle nn Bitartrate 00 325/5) Do 5 MG Oral not exceed Tablet 4gm/day of acetaminop hen. Acetaminoph No Notes: Do M emoria en 7-30 not exceed l 18:50: 4 gm/day. Jasbir (Same as: Tylenol) Docusate No Notes: Memoria 7-30 (Same as: l 18:50: Colace) Gruver (Do Not Crush) Ondansetron No Notes: Isaak lauren 7-30 (Same as: l 18:50: Zofran) Jasbir Albuterol No Notes: Memori a 0.833 MG/ML 7-30 (Same as: l / 17:43: Duoneb) Jasbir Ipratropium 00 Gordon 0.167 MG/ML Inhalant Solution [DuoNeb] Albuterol No Notes: Memori a 0.833 MG/ML 7-30 (Same as: l / 17:43: Duoneb) Gruver Ipratropium 00 Gordon 0.167 MG/ML Inhalant Solution [DuoNeb] Albuterol No Notes: Memori a 0.833 MG/ML 7-30 (Same as: l / 17:43: Duoneb) Jasbir Ipratropium 00 Gordon 0.167 MG/ML Inhalant Solution [DuoNeb] Ondansetron No Notes: Isaak lauren 7-30 (Same as: l 16:06: Zofran) Jasbir Ondansetron No Notes: Isaak lauren 7-30 (Same as: l 16:06: Zofran) Ondansetron No Notes: Isaak lauren 7-30 (Same as: l 16:06: Zofran) pramipexole Yes .125mg [id number] Take 0.[address] [facility] (MIRAPEX) 7-28 [id number] mg by Fariba es 0.125 MG 17:05: 3D mouth 3 Medica l tablet 25 (three) Center times daily. Pt was prescribed this medication and then stopped taking it suddenly 2 months ago. (Per family) pramipexole Yes .125mg Q.[id number] Take 0.[address] [facility] (MIRAPEX) 7-28 [id number] mg by Fariba es 0.125 MG 17:05: 3D mouth 3 Medica l tablet 25 (three) Center times daily. Pt was prescribed this medication and then stopped taking it suddenly 2 months ago. (Per family) pramipexole Yes .125mg Q.[id number] Take 0.[address] [facility] [address] (MIRAPEX) 7-28 [id number] mg by Fariba es 0.125 MG 17:05: 3D mouth 3 Medica l tablet 25 (three) Center times daily. Pt was prescribed this medication and then stopped taking it suddenly 2 months ago. (Per family) pramipexole Yes .125mg Q.[id number] Take 0.[address] [facility] [address] (MIRAPEX) 7-28 [id number] mg by Fariba es 0.125 MG 17:05: 3D mouth 3 Medica l tablet 25 (three) Center times daily. Pt was prescribed this medication and then stopped taking it suddenly 2 months ago. (Per family) Bactrim DS 2011-09 Yes Loann The 1 tab, PO, Memoria oral tablet 0-09 Jessica BID, 14 l 19:53: tabJasbir 30 Substituti on Allowed, Maintenanc e Bactrim DS 2011-09 Yes Loann The 1 tab, PO, Memoria oral tablet 0-09 Jessica BID, 14 l 19:53: tabJasbir 30 Substituti on Allowed, Maintenanc e Bactrim [...] 0-09 Jessica Route: l 17:41: IVP, Drug Gruver 00 Form: INJ, Dosing Weight 67.727, kg, [...] 0-09 Jessica Route: l 17:41: IVP, Drug Gruver 00 Form: INJ, Dosing Weight 67.727, kg, [...] 30 day, Stop date: 07/22/12 11:40:00 Saline 2011-1 No Loann The 5 ml, Memor ia Flush 0.9% 0h Route: l 17:41: IVP, Drug Form: INJ, Dosing Weight 67.727, kg, PRN, PRN Line Flush, Start date: 06/22/12 12:41:00, Duration: 24 hr, Stop date: 06/23/12 12:40:00 Prinivil 2011-0 No Spencer H 5 mg, 1 M emoria 06-12 Douglas tab, l 14:00: Route: PO, Gruver Drug form: TAB, Daily, Start date: 06/12/12 9:00:00, Duration: 30 day, Stop date: 07/11/12 9:00:00 Prinivil 2011-0 No Spencer H 5 mg, 1 M emoria 06-12 Douglas tab, l 14:00: Route: PO, Jasbir 00 Drug form: TAB, Daily, Start date: 06/12/12 9:00:00, Duration: 30 day, Stop date: 07/11/12 9:00:00 Prinivil 2011-0 No Spencer H 5 mg, 1 M emoria 06-12 Douglas tab, l 14:00: Route: PO, Jasbir Drug [...] l 21:30: Deann Route: PO, Estelle nn 00 Drug form: ECTAB, Before Dinner, Start date: 06/11/12 16:30:00, Duration: 30 day, Stop date: 07/10/12 16:30:00 Protonix 2011-0 No Tatianna 40 mg, 1 Me moria 06-11 Iligerardoovic- tab, l 21:30: Deann Route: PO, Estelle Drug form: ECTAB, Before Dinner, Start date: 06/11/12 16:30:00, Duration: 30 day, Stop date: 07/10/12 16:30:00 metoprolol 2011-0 No Spencer H 25 mg, 1 Memoria 06-11 Trina tab, l 19:00: Route: PO, Gruver Drug form: ERTAB, Daily, Start date: 06/11/12 14:00:00, Duration: 30 day, Stop date: 07/11/12 9:00:00 Prinivil 2011-0 No Spencer H 2.5 mg, M emoria 06-11 Douglas 0.5 tab, l 19:00: Route: PO, Gruver 00 Drug form: TAB, ONCE, Start date: 06/11/12 14:00:00, Stop date: 06/11/12 14:00:00 metoprolol 2011-0 No Spencer H 25 mg, 1 Memoria 06-11 Trina tab, l 19:00: Route: PO, Gruver 00 Drug form: ERTAB, Daily, Start date: 06/11/12 14:00:00, Duration: 30 day, Stop date: 07/11/12 9:00:00 Prinivil 2011-0 No Spencer H 2.5 mg, M emoria 06-11 Trina 0.5 tab, l 19:00: Route: PO, Gruver 00 Drug form: TAB, ONCE, Start date: 06/11/12 14:00:00, Stop date: 06/11/12 14:00:00 metoprolol 2011-0 No Spencer H 25 mg, 1 Memoria 06-11 Trina tab, l 19:00: Route: PO, Jasbir 00 Drug form: ERTAB, Daily, Start date: 06/11/12 14:00:00, Duration: 30 day, Stop date: 07/11/12 9:00:00 Prinivil 2011-0 No Spencer H 2.5 mg, M emoria 06-11 Douglas 0.5 tab, l 19:00: Route: PO, Jasbir Drug form: TAB, ONCE, Start date: 06/11/12 14:00:00, Stop date: 06/11/12 14:00:00 Restoril 2011-0 No Spencer H 15 mg, 1 Memoria 06-11 Douglas cap, l 05:05: Route: PO, Gruver 00 Drug form: CAP, Bedtime, PRN Sleep, [...] No Tatianna 40 mg, Isaak lauren 06-10 Iliskovic- Route: l 20:00: Zacarias IVP, Drug Chris n 00 form: INJ, ONCE, Start date: 06/10/12 15:00:00, Stop date: 06/10/12 15:00:00 Protonix 2011-0 No Tatianna 40 mg, Isaak lauern 06-10 Iliskovic- Route: l 20:00: Zacarias IVP, Drug Chris n 00 form: INJ, ONCE, Start date: 06/10/12 15:00:00, Stop date: 06/10/12 15:00:00 Protonix 2011-0 No Tatianna 40 mg, Isaak lauren 06-10 Iliskovic- Route: l 20:00: Zacarias IVP, Drug Chris [...] 2011-0 No Gnananandh 100 mg, 1 Memoria - Mary tab, l 14:00: Route: NGJasbir Drug form: TAB, Daily, Start date: 06/10/12 9:00:00, Duration: 30 day, Stop date: 07/09/12 9:00:00 Prinivil 2011-0 No Spencer H 2.5 mg, M emoria 06-10 Douglas 0.5 tab, l 14:00: Route: PO, Jasbir Drug form: TAB, Daily, Start date: 06/10/12 9:00:00, Duration: 30 day, Stop date: 07/09/12 9:00:00 folic acid 2011-0 No Gnananandh 1 mg, 1 Memoria 1 mg oral 06-10 Mary tab, l tablet 14:00: Route: GTEstelle nn Drug form: TAB, Daily, Start date: 06/10/12 9:00:00, Duration: 30 day, Stop date: 07/09/12 9:00:00 Vitamin B1 2011-0 No Gnananandh 100 mg, 1 Memoria - Mary tab, l 14:00: Route: NGJasbir Drug form: TAB, Daily, Start date: 06/10/12 9:00:00, Duration: 30 day, Stop date: 07/09/12 9:00:00 Prinivil 2011-0 No Spencer H 2.5 mg, M emoria 06-10 Trina 0.5 tab, l 14:00: Route: PO, Gruver 00 Drug form: TAB, Daily, Start date: 06/10/12 9:00:00, Duration: 30 day, Stop date: 07/09/12 9:00:00 folic acid 2011-0 No Gnananandh 1 mg, 1 Memoria 1 mg oral - Mary tab, l tablet 14:00: Route: GT, Estelle nn Drug form: TAB, Daily, Start date: 06/10/12 9:00:00, Duration: 30 day, Stop date: 07/09/12 9:00:00 Vitamin B1 2011-0 No Gnananandh 100 mg, 1 Memoria 06-10 Mary tab, l 14:00: Route: NG, Jasbir 00 Drug form: TAB, Daily, Start [...] Trina 2.25 tab, l 23:00: Route: PO, Gruver Drug form: TAB, Daily, Start date: 06/09/12 18:00:00, Duration: 30 day, Stop date: 07/09/12 9:00:00 Paxil 2011-0 No Spencer H 45 mg, Memor ia - Douglas 2.25 tab, l 23:00: Route: PO, Gruver Drug form: TAB, Daily, Start date: 06/09/12 18:00:00, Duration: 30 day, Stop date: 07/09/12 9:00:00 Paxil 2011-0 No Spencer H 45 mg, Memor ia - Trina 2.25 tab, l 23:00: Route: PO, Gruver Drug form: TAB, Daily, Start date: 06/09/12 18:00:00, Duration: 30 day, Stop date: 07/09/12 9:00:00 Glucophage 2011-0 No Spencer H 500 mg, 1 Memoria XR 06-09 Trina tab, l 22:00: Route: PO, Gruver Drug form: ERTAB, BID-Before Meals, Start date: 06/09/12 17:00:00, Duration: 30 day, Stop date: 07/09/12 16:30:00 Pravachol 2012-0 No Spencer H 25 mg, 2.5 Memoria 9-26 Trina tab, l 22:00: Route: PO, Jasbir 00 Drug form: TAB, QPM, Start date: 06/09/12 17:00:00, Duration: 30 day, Stop date: 07/08/12 17:00:00 cefazolin + 2011-0 No Spencer H 1 gm, Memoria Sodium - Trina Route: l Chloride 22:00: IVPB, Gruver 0.9% IV 100 00 [id number], mL Start date: 06/09/12 17:00:00, Duration: 24 hr, Stop date: 06/10/12 9:00:00 chlordiazep 2011-0 No Spencer H 25 mg, 1 Memoria oxide 25 mg 9- Trina cap, l oral 22:00: Route: PO, Jasbir capsule 00 Drug form: CAP, TID, Start date: 06/09/12 17:00:00, Duration: 30 day, Stop date: 07/09/12 13:00:00 Glucophage 2011-0 No Spencer H 500 mg, 1 Memoria XR - Douglas tab, l 22:00: Route: PO, Gruver 00 Drug form: ERTAB, BID-Before Meals, Start date: 06/09/12 17:00:00, Duration: 30 day, Stop date: 07/09/12 16:30:00 Pravachol 2011-0 No Spencer H 25 mg, 2.5 Memoria -26 Trina tab, l 22:00: Route: PO, Jasbir 00 Drug form: TAB, QPM, Start date: 06/09/12 17:00:00, Duration: 30 day, Stop date: 07/08/12 17:00:00 cefazolin + 2011-0 No Spencer H 1 gm, Memoria Sodium - Douglas Route: l Chloride 22:00: IVPB, Gruver 0.9% IV 100 00 [id number], mL Start date: 06/09/12 17:00:00, Duration: 24 hr, Stop date: 06/10/12 9:00:00 chlordiazep 2012-0 No Spencer H 25 mg, 1 Memoria oxide 25 mg 9-26 Douglas cap, l oral 22:00: Route: PO, Gruver capsule 00 Drug form: CAP, TID, Start date: 06/09/12 17:00:00, Duration: 30 day, Stop date: 07/09/12 13:00:00 Glucophage 2012-0 No Spencer H 500 mg, 1 Memoria XR - Douglas tab, l 22:00: Route: PO, Jasbir Drug form: ERTAB, BID-Before Meals, Start date: 06/09/12 17:00:00, Duration: 30 day, Stop date: 07/09/12 16:30:00 Pravachol 2012-0 No Spencer H 25 mg, 2.5 Memoria - Douglas tab, l 22:00: Route: PO, Jasbir 00 Drug form: TAB, QPM, Start date: 06/09/12 17:00:00, Duration: 30 day, Stop date: 07/08/12 17:00:00 cefazolin + 2011-0 No Spencer H 1 gm, Memoria Sodium - Douglas Route: l Chloride 22:00: IVPB, Gruver 0.9% IV 100 00 [id number], mL Start date: 06/09/12 17:00:00, Duration: 24 hr, Stop date: 06/10/12 9:00:00 chlordiazep 2012-0 No Spencer H 25 mg, 1 Memoria oxide 25 mg 9-26 Douglas cap, l oral 22:00: Route: PO, Jasbir capsule 00 Drug form: CAP, TID, Start date: 06/09/12 17:00:00, Duration: 30 day, Stop date: 07/09/12 13:00:00 Glucotrol 2012-0 No Spencer H 20 mg, 2 Memoria 9-26 Trina tab, l 21:30: Route: PO, Gruver 00 Drug form: TAB, BID-Before Meals, Start date: 06/09/12 16:30:00, Duration: 30 day, Stop date: 07/09/12 7:30:00 Glucotrol 2012-0 No Spencer H 20 mg, 2 Memoria 9-26 Trina tab, l 21:30: Route: PO, Jasbir 00 Drug form: TAB, BID-Before Meals, Start date: 06/09/12 16:30:00, Duration: 30 day, Stop date: 07/09/12 7:30:00 Glucotrol 2011-0 No Spencer H 20 mg, 2 Memoria 06-09 Douglas tab, l 21:30: Route: PO, Jasbir 00 Drug form: TAB, BID-Before Meals, Start date: 06/09/12 16:30:00, Duration: 30 day, Stop date: 07/09/12 7:30:00 acetaminoph 2011-0 No Spencer H 2 tab, Memoria en-hydrocod 06-09 Trina Route: PO, l one 325 17:09: Drug Form: Herm jose a mg-5 mg 00 TAB, Q4H, oral tablet PRN Pain, Start date: 06/09/12 12:09:00, Duration: 30 day, Stop date: 07/09/12 12:08:00 1/2NS + KCL 2011-0 No Spencer H 1,000 mL, Memoria 20mEq/L 06-09 Trina Rate: 60 l 1000ml 17:09: ml/hr, Gruver (Premix) 00 Infuse 1,000 mL over: 16.7 hr, Route: IV, kg, Total Volume: 1,000, Start date: 06/09/12 12:09:00, Duration: 30 day, Stop date: 07/09/12 12:08:00 acetaminoph 0 No Spencer H 2 tab, Memoria en-hydrocod 06-09 Trina Route: PO, l one 325 17:09: Drug Form: Herm jose a mg-5 mg 00 TAB, Q4H, oral tablet PRN Pain, Start date: 06/09/12 12:09:00, Duration: 30 day, Stop date: 07/09/12 12:08:00 1/2NS + KCL 2011-0 No Spencer H 1,000 mL, Memoria 20mEq/L 06-09 Trina Rate: 60 l 1000ml 17:09: ml/hr, Jasbir (Premix) 00 Infuse 1,000 mL over: 16.7 hr, Route: IV, kg, Total Volume: 1,000, Start date: 06/09/12 12:09:00, Duration: 30 day, Stop date: 07/09/12 12:08:00 acetaminoph No Spencer H 2 tab, Memoria en-hydrocod 06-09 Douglas Route: PO, l one 325 17:09: Drug Form: Herm jose a mg-5 mg 00 TAB, Q4H, oral tablet PRN Pain, Start date: 06/09/12 12:09:00, Duration: 30 day, Stop date: 07/09/12 12:08:00 1/2NS + KCL No Spencer H 1,000 mL, Memoria 20mEq/L 06-09 Douglas Rate: 60 l 1000ml 17:09: ml/hr, Gruver (Premix) 00 Infuse 1,000 mL over: 16.7 [...] Stop date: 06/10/12 1:06:00 NS 500 mL No Fernando 500 mL, Me moria 06-09 Dante Rate: 30 l 13:25: Gallacher ml/hr, Chris n 00 Infuse over: 16.7 hr, Route: INTRAARTER IAL, kg, Total Volume: 500, Start date: 06/09/12 8:25:00, Duration: 1 doses or times, Stop date: 06/10/12 1:06:00 NS 500 mL No Fernando 500 mL, Me moria 06-09 Dante Rate: 30 l 13:25: Gallacher ml/hr, Chris n 00 Infuse over: 16.7 hr, Route: INTRAARTER IAL, kg, Total Volume: 500, Start date: 06/09/12 8:25:00, Duration: 1 doses or times, Stop date: 06/10/12 1:06:00 Lactated 2011-0 No Spencer H 1,000 mL, Memoria Ringers IV 06-09 Douglas Rate: 100 l 1,000 mL 12:32: ml/hr, Gruver 00 Infuse over: 10 hr, Route: IV, kg, Total Volume: 1,000, Start date: 06/09/12 7:32:00, Duration: 1 doses or times, Stop date: 06/09/12 17:31:00 Lactated 2011-0 No Spencer H 1,000 mL, Memoria Ringers IV 06-09 Douglas Rate: 100 l 1,000 mL 12:32: ml/hr, Jasbir 00 Infuse over: 10 hr, Route: IV, kg, Total Volume: 1,000, Start date: 06/09/12 7:32:00, Duration: 1 doses or times, Stop date: 06/09/12 17:31:00 Lactated 2011-0 No Spencer H 1,000 mL, Memoria Ringers IV 06-09 Trina Rate: 100 l 1,000 mL 12:32: ml/hr, Jasbir 00 Infuse over: 10 hr, Route: IV, kg, Total Volume: 1,000, Start date: 06/09/12 7:32:00, Duration: 1 doses or times, Stop date: 06/09/12 17:31:00 Lactated 2011-0 No Spencer H 1,000 mL, [facility] Ringers 06-07 Douglas Rate: 100 l Injection 11:00: ml/hr, Chris n IV 1,000 mL 00 Infuse over: 10 hr, Route: IV, kg, Total Volume: 1,000, Start date: 06/07/12 6:00:00, Duration: 1 minutes, Stop date: 06/07/12 6:00:00 lidocaine 2011-0 No Spencer H 0.1 mL, [facility] 06-07 Douglas Route: l 11:00: INJ, Drug [place] 00 form: INJ, ONCALL, Start date: 06/07/12 6:00:00, Duration: 1 minutes, Stop date: 06/07/12 6:00:00 cefazolin + 2011-0 No Spencer H 1 gm, [facility] Sodium 06-07 [place] Route: l Chloride 11:00: IVPB, [place] 0.9% IV 100 00 ONCALL, mL Start date: 06/07/12 6:00:00, Duration: 1 doses or times Lactated 2011-0 No Spencer H 1,000 mL, [facility] Ringers -24 [place] Rate: 100 l Injection 11:00: ml/hr, Chris n IV 1,000 mL 00 Infuse over: 10 hr, Route: IV, kg, Total Volume: 1,000, Start date: 06/07/12 6:00:00, Duration: 1 minutes, Stop date: 06/07/12 6:00:00 lidocaine 2011-0 No Spencer H 0.1 mL, [facility] 06-07 [place] Route: l 11:00: INJ, Drug Jasbir 00 form: INJ, ONCALL, Start date: 06/07/12 6:00:00, Duration: 1 minutes, Stop date: 06/07/12 6:00:00 cefazolin + 2011-0 No Spencer H 1 gm, [facility] Sodium - [place] Route: l Chloride 11:00: IVPB, Jasbir 0.9% IV 100 00 ONCALL, mL Start date: 06/07/12 6:00:00, Duration: 1 doses or times Lactated 2011-0 No Spencer H 1,000 mL, [facility] Ringers - [place] Rate: 100 l Injection 11:00: ml/hr, Chris n IV 1,000 mL 00 Infuse over: 10 hr, Route: IV, kg, Total Volume: 1,000, Start date: 06/07/12 6:00:00, Duration: 1 minutes, Stop date: 06/07/12 6:00:00 lidocaine 2011-0 No Spencer H 0.1 mL, [facility] 06-07 [place] Route: l 11:00: INJ, Drug [place] 00 form: INJ, ONCALL, Start date: 06/07/12 6:00:00, Duration: 1 minutes, Stop date: 06/07/12 6:00:00 cefazolin + 2011-0 No Spencer H 1 gm, [facility] Sodium 9-24 Trian Route: l Chloride 11:00: IVPB, [place] 0.9% IV 100 00 ONCALL, mL Start date: 06/07/12 6:00:00, Duration: 1 doses or times Immunizations Ordered Immunization Filled Immunization Date Status Commen ts Source Name Name pneumococcal 2014-04-13 Completed [facility] 23-valent vaccine 14:14:00 [place] pneumococcal 2014-04-13 Completed [facility] 23-valent vaccine 14:14:00 [facility] pneumococcal 2014-04-13 Completed [facility] 23-valent vaccine 14:14:00 [place] Vital Signs Vital Name Observation Time Observation Value Comments Source Temperature Oral (F) 2019-12-06 18:24:00 98.4 F [facility] Heart Rate 2019-12-06 18:24:00 [facility] Respitory Rate 2019-12-06 18:24:00 [facility] al [facility] Systolic (mm Hg) 2019-12-06 18:24:00 Isaak rial [place] Diastolic (mm Hg) 2019-12-06 18:24:00 Mem o[facility] Temperature Oral (F) 2019-12-06 13:38:00 98.2 F [facility] Heart Rate 2019-12-06 13:38:00 [facility] Respitory Rate 2019-12-06 13:38:00 [facility] Systolic (mm Hg) 2019-12-06 13:38:00 Isaak rial [facility] Diastolic (mm Hg) 2019-12-06 13:38:00 Mem o[facility] [place] Temperature Oral (F) 2019-12-06 09:53:00 98.5 F [facility] Systolic (mm Hg) 2019-12-06 09:53:00 Isaak rial [place] Diastolic (mm Hg) 2019-12-06 09:53:00 Mem o[facility] [place] Respitory Rate 2019-12-06 09:53:00 [facility] [place] Heart Rate 2019-12-06 09:53:00 [facility] Height 2019-12-05 20:15:00 152.4 cm [facility] Weight 2019-12-05 20:15:00 [facility] BMI Calculated 2019-12-05 20:15:00 [facility] [place] Height 2019-12-05 15:20:00 172.72 cm [facility] BMI Calculated 2019-12-05 15:20:00 [facility] [place] Weight 2019-12-05 15:20:00 [facility] [place] Respitory Rate 2019-11-19 04:24:00 [facility] Systolic (mm Hg) 2019-11-19 04:24:00 Isaak rial [place] Diastolic (mm Hg) 2019-11-19 04:24:00 [facility] o[facility] [place] Respitory Rate 2019-11-19 03:15:00 [facility] [place] Systolic (mm Hg) 2019-11-19 03:15:00 Isaak rial [place] Diastolic (mm Hg) 2019-11-19 03:15:00 [facility] o[facility] Respitory Rate 2019-11-19 02:18:00 [facility] Systolic (mm Hg) 2019-11-19 02:18:00 Isaak rial [facility] Diastolic (mm Hg) 2019-11-19 02:18:00 [facility] BMI Calculated 2019-11-19 00:25:00 [facility] [place] Heart Rate 2019-11-18 23:55:00 [facility] Temperature Oral (F) 2019-11-18 23:55:00 97.4 F [facility] [place] Height 2019-11-18 23:55:00 152.4 cm [facility] BMI Calculated 2019-11-18 23:55:00 [facility] [place] Weight 2019-11-18 23:55:00 [facility] Temperature Oral (F) 2019-10-25 22:43:00 98.4 F [facility] [place] Heart Rate 2019-10-25 22:43:00 [facility] [place] Respitory Rate 2019-10-25 22:43:00 [facility] [place] Systolic (mm Hg) 2019-10-25 22:43:00 Isaak rial [facility] Diastolic (mm Hg) 2019-10-25 22:43:00 [facility] o[facility] Temperature Oral (F) 2019-10-25 14:12:00 97.9 F [facility] Heart Rate 2019-10-25 14:12:00 [facility] [place] Respitory Rate 2019-10-25 14:12:00 [facility] [place] Systolic (mm Hg) 2019-10-25 14:12:00 Isaak rial [facility] Diastolic (mm Hg) 2019-10-25 14:12:00 Mem o[facility] [place] Temperature Oral (F) 2019-10-25 09:56:00 98.2 F [facility] [place] Heart Rate 2019-10-25 09:56:00 [facility] [place] Respitory Rate 2019-10-25 09:56:00 [facility] [place] Systolic (mm Hg) 2019-10-25 09:56:00 Isaak rial [facility]as[facility] Diastolic (mm Hg) 2019-10-25 09:56:00 [facility] o[facility] Height 2019-10-21 06:11:00 152.4 cm [facility] [place] Weight 2019-10-21 06:11:00 [facility] BMI Calculated 2019-10-21 06:11:00 [facility] [place] Height 2019-10-20 18:05:00 152.4 cm [facility] [place] BMI Calculated 2019-10-20 18:05:00 [facility] Weight 2019-10-20 18:05:00 [facility] Temperature Oral (F) 2019-10-05 17:27:00 98.1 F [facility] [place] Heart Rate 2019-10-05 17:27:00 [facility] Respitory Rate 2019-10-05 17:27:00 [facility] [place] Systolic (mm Hg) 2019-10-05 17:27:00 Isaak rial [place] Diastolic (mm Hg) 2019-10-05 17:27:00 Mem o[facility] Temperature Oral (F) 2019-10-05 13:12:00 97.9 F [facility] Heart Rate 2019-10-05 13:12:00 [facility] Respitory Rate 2019-10-05 13:12:00 [facility] Systolic (mm Hg) 2019-10-05 13:12:00 Isaak rial [facility] Diastolic (mm Hg) 2019-10-05 13:12:00 Mem o[facility] [place] Temperature Oral (F) 2019-10-05 10:19:00 97.5 F [facility] Heart Rate 2019-10-05 10:19:00 [facility] Respitory Rate 2019-10-05 10:19:00 [facility] [place] Systolic (mm Hg) 2019-10-05 10:19:00 Isaak rial [place] Diastolic (mm Hg) 2019-10-05 10:19:00 [facility] o[facility] [place] Height 2019-10-04 04:10:00 152.4 cm [facility] [place] Weight 2019-10-04 04:10:00 [facility] [place] BMI Calculated 2019-10-04 04:10:00 [facility] [place] Height 2019-10-03 19:36:00 152.4 cm [facility] BMI Calculated 2019-10-03 19:36:00 [facility] [place] Weight 2019-10-03 19:36:00 [facility] [place] Respitory Rate 2018-09-08 05:21:00 [facility] Temperature Oral (F) 2018-09-08 05:21:00 98.0 F [facility] Systolic (mm Hg) 2018-09-08 05:21:00 Isaak rial [place] Diastolic (mm Hg) 2018-09-08 05:21:00 [facility] o[facility] Heart Rate 2018-09-08 05:21:00 [facility] [place] BMI Calculated 2018-09-08 01:37:00 [facility] [place] Weight 2018-09-08 01:37:00 [facility] Height 2018-09-08 01:37:00 152.4 cm [facility] Heart Rate 2018-09-08 01:37:00 [facility] [place] Systolic (mm Hg) 2018-09-08 01:37:00 Isaak rial [facility] Diastolic (mm Hg) 2018-09-08 01:37:00 [facility] o[facility] Temperature Oral (F) 2018-09-08 01:37:00 98.2 F [facility] [place] Respitory Rate 2018-09-08 01:37:00 [facility] [place] Systolic (mm Hg) 2018-05-31 20:22:00 Isaak rial [facility] Diastolic (mm Hg) 2018-05-31 20:22:00 [facility] o[facility] [place] Respitory Rate 2018-05-31 20:22:00 [facility] Systolic (mm Hg) 2018-05-31 19:33:00 Isaak rial [facility] Diastolic (mm Hg) 2018-05-31 19:33:00 [facility] o[facility] Heart Rate 2018-05-31 19:33:00 [facility] Respitory Rate 2018-05-31 19:33:00 [facility] [place] Respitory Rate 2018-05-31 19:02:00 [facility] Heart Rate 2018-05-31 19:02:00 [facility] [place] Temperature Oral (F) 2018-05-31 19:02:00 98 F [facility] Systolic (mm Hg) 2018-05-31 19:02:00 Isaak rial [place] Diastolic (mm Hg) 2018-05-31 19:02:00 [facility] o[facility] [place] Heart Rate 2018-05-31 18:39:00 [facility] [place] Temperature Oral (F) 2018-05-31 18:39:00 98.1 F [facility] Height 2018-05-31 18:39:00 152.4 cm [facility] [place] BMI Calculated 2018-05-31 18:39:00 [facility] [place] Weight 2018-05-31 18:39:00 [facility] Temperature Oral (F) 2016-12-10 10:30:00 98.2 F [facility] Respitory Rate 2016-12-10 10:00:00 [facility] [place] Systolic (mm Hg) 2016-12-10 10:00:00 Isaak rial [facility] Diastolic (mm Hg) 2016-12-10 10:00:00 [facility] [place] Systolic (mm Hg) 2016-12-10 09:38:00 Isaak rial [facility] Diastolic (mm Hg) 2016-12-10 09:38:00 [facility] Heart Rate 2016-12-10 09:38:00 [facility] Respitory Rate 2016-12-10 09:38:00 [facility] Respitory Rate 2016-12-10 08:30:00 [facility] [place] Systolic (mm Hg) 2016-12-10 08:30:00 Isaak rial [facility] Diastolic (mm Hg) 2016-12-10 08:30:00 [facility] [place] Heart Rate 2016-12-10 07:36:00 [facility] BMI Calculated 2016-12-10 06:38:00 [facility] Weight 2016-12-10 06:38:00 [facility] [place] Height 2016-12-10 06:38:00 152.4 cm [facility] Temperature Oral (F) 2016-12-10 06:38:00 98.1 F [facility] Heart Rate 2016-12-10 06:38:00 [facility] [place] Respitory Rate 2015-06-09 10:52:00 [facility] Heart Rate 2015-06-09 10:52:00 [facility] Systolic (mm Hg) 2015-06-09 10:52:00 Isaak rial [facility] Diastolic (mm Hg) 2015-06-09 10:52:00 [facility] Systolic (mm Hg) 2015-06-09 10:24:00 Isaak rial [facility] Diastolic (mm Hg) 2015-06-09 10:24:00 [facility] [place] Heart Rate 2015-06-09 10:24:00 [facility] [place] Respitory Rate 2015-06-09 10:24:00 [facility] [place] BMI Calculated 2015-06-09 06:12:00 [facility] [place] Weight 2015-06-09 06:12:00 [facility] [place] Height 2015-06-09 06:12:00 152.4 cm [facility] [place] Systolic (mm Hg) 2015-06-09 06:12:00 Isaak rial [place] Diastolic (mm Hg) 2015-06-09 06:12:00 [facility] Respitory Rate 2015-06-09 06:12:00 [facility] Heart Rate 2015-06-09 06:12:00 [facility] Temperature Oral (F) 2015-06-09 06:12:00 97.7 F [facility] [place] Respitory Rate 2015-04-06 12:57:00 [facility] [place] Systolic (mm Hg) 2015-04-06 12:57:00 Isaak rial [facility] Diastolic (mm Hg) 2015-04-06 12:57:00 [facility] [place] Systolic (mm Hg) 2015-04-06 11:00:00 Isaak rial [place] Diastolic (mm Hg) 2015-04-06 11:00:00 [facility] [place] Respitory Rate 2015-04-06 11:00:00 [facility] [place] Systolic (mm Hg) 2015-04-06 10:00:00 Isaak rial [place] Diastolic (mm Hg) 2015-04-06 10:00:00 [facility] Respitory Rate 2015-04-06 10:00:00 [facility] Temperature Oral (F) 2015-04-06 09:00:00 98 F [facility] Temperature Oral (F) 2015-04-06 04:00:00 98 F [facility] Weight 2015-04-06 02:08:00 [facility] BMI Calculated 2015-04-06 02:08:00 [facility] [place] Heart Rate 2015-04-06 02:08:00 [facility] [place] Height 2015-04-06 02:08:00 154.94 cm [facility] Diastolic (mm Hg) 2014-04-17 00:30:00 [facility] [place] Respitory Rate 2014-04-17 00:30:00 [facility] [place] Systolic (mm Hg) 2014-04-17 00:30:00 Isaak rial [facility] Heart Rate 2014-04-17 00:30:00 [facility] [place] Temperature Oral (F) 2014-04-17 00:30:00 98.4 F [facility] Respitory Rate 2014-04-16 21:00:00 [facility] Diastolic (mm Hg) 2014-04-16 21:00:00 [facility] [place] Systolic (mm Hg) 2014-04-16 21:00:00 Isaak rial [facility] Temperature Oral (F) 2014-04-16 21:00:00 98.0 F [facility] [place] Heart Rate 2014-04-16 21:00:00 [facility] [place] Systolic (mm Hg) 2014-04-16 16:04:00 Isaak rial [place] Temperature Oral (F) 2014-04-16 16:04:00 98.0 F [facility] [place] Heart Rate 2014-04-16 16:04:00 [facility] [place] Diastolic (mm Hg) 2014-04-16 16:04:00 [facility] [place] Respitory Rate 2014-04-16 13:00:00 [facility] [place] Weight 2014-04-12 19:42:00 [facility] BMI Calculated 2014-04-12 19:42:00 [facility] Height 2014-04-12 19:42:00 152.4 cm [facility] Weight 2014-04-12 15:41:00 [facility] [place] BMI Calculated 2014-04-12 15:41:00 [facility] Height 2014-04-12 15:41:00 152.4 cm [facility] Weight 2012-06-22 17:39:00 [facility] Height 2012-06-22 17:39:00 152.40 cm [facility] [place] Diastolic (mm Hg) 2012-06-11 19:41:00 [facility] Heart Rate 2012-06-11 19:41:00 [facility] Systolic (mm Hg) 2012-06-11 19:41:00 Isaak rial [place] Systolic (mm Hg) 2012-06-11 17:20:00 Isaak rial [facility] Diastolic (mm Hg) 2012-06-11 17:20:00 Mem orial [facility] Temperature Oral (F) 2012-06-11 16:25:00 99.0 F [facility] Diastolic (mm Hg) 2012-06-11 16:25:00 [facility] Systolic (mm Hg) 2012-06-11 16:25:00 Isaak rial [facility] Heart Rate 2012-06-11 16:25:00 [facility] [place] Respitory Rate 2012-06-11 16:25:00 [facility] [place] Temperature Oral (F) 2012-06-11 12:22:00 98.4 F [facility] Heart Rate 2012-06-11 12:22:00 [facility] Respitory Rate 2012-06-11 12:22:00 [facility] Respitory Rate 2012-06-11 09:00:00 [facility] Temperature Oral (F) 2012-06-11 09:00:00 98.2 F [facility] [place] Weight 2012-05-31 18:54:00 [facility] [place] Height 2012-05-31 18:54:00 152.40 cm [facility] [place] Procedures Procedure Date / Time Performed Performing Clinician Sourc e Endarterectomy [facility] [place] Plan of Care Planned Activity Planned Date Details Comments Source Future Scheduled 2022-12-16 COVID-19 VACCINE (#1) [facility] Test 14:23:32 [code = COVID-19 VACCINE (#1)] Future Scheduled 2022-12-16 COLONOSCOPY SCREENING [facility] Test 14:23:32 [code = COLONOSCOPY SCREENING] Future Scheduled 2022-12-16 SHINGLES VACCINES (1 Met [facility] Test 14:23:32 of 2) [code = SHINGLES VACCINES (1 of 2)] Future Scheduled 2022-12-16 [facility] Test 14:23:32 VACCINE (1 - PCV) [code = 65+ PNEUMOCOCCAL VACCINE (1 - PCV)] Future Scheduled 2022-12-16 [facility]FLUENZA VACCINE [facility] Test 14:23:32 [code = INFLUENZA VACCINE] Future Scheduled 2022-12-16 COVID-19 VACCINE (#1) [facility] Test 14:23:32 [code = COVID-19 VACCINE (#1)] Future Scheduled 2022-12-16 COLONOSCOPY SCREENING [facility] Test 14:23:32 [code = COLONOSCOPY SCREENING] Future Scheduled 2022-12-16 SHINGLES VACCINES (1 Met [facility] Test 14:23:32 of 2) [code = SHINGLES VACCINES (1 of 2)] Future Scheduled 2022-12-16 65+ [facility]CCAL [facility] Test 14:23:32 VACCINE (1 - PCV) [code = 65+ PNEUMOCOCCAL VACCINE (1 - PCV)] Future Scheduled 2022-12-16 [facility]ACCINE [facility] Test 14:23:32 [code = INFLUENZA VACCINE] Future Scheduled 2022-08-30 COVID-19 VACCINE (#1) [facility] Test 06:08:20 [code = COVID-19 VACCINE (#1)] Future Scheduled 2022-08-30 COLONOSCOPY SCREENING [facility] Test 06:08:20 [code = COLONOSCOPY SCREENING] Future Scheduled 2022-08-30 SHINGLES VACCINES (1 Met [facility] Test 06:08:20 of 2) [code = SHINGLES VACCINES (1 of 2)] Future Scheduled 2022-08-30 65+ P[facility]UMOCOCCAL [facility] Test 06:08:20 VACCINE (1 - PCV) [code = 65+ PNEUMOCOCCAL VACCINE (1 - PCV)] Future Scheduled 2022-08-30 INFLUENZA VACCINE [facility] Test 06:08:20 [code = INFLUENZA VACCINE] Future Scheduled 2022-07-19 HEPATITIS B VACCINES Met [facility] Test 19:16:01 (1 of 3 - 3-dose series) [code = HEPATITIS B VACCINES (1 of 3 - 3-dose series)] Future Scheduled 2022-07-19 COVID-19 VACCINE (#1) [facility] Test 19:16:01 [code = COVID-19 VACCINE (#1)] Future Scheduled 2022-07-19 COLONOSCOPY SCREENING [facility] Test 19:16:01 [code = COLONOSCOPY SCREENING] Future Scheduled 2022-07-19 SHINGLES VACCINES (1 Met [facility] Test 19:16:01 of 2) [code = SHINGLES VACCINES (1 of 2)] Future Scheduled 2022-07-19 65+ [facility]OCCAL [facility] Test 19:16:01 VACCINE (1 - PCV) [code = 65+ PNEUMOCOCCAL VACCINE (1 - PCV)] Future Scheduled 2022-07-19 INFLUENZA VACCINE [facility] Test 19:16:01 [code = INFLUENZA VACCINE] Encounters Start End Encounter Admission Attending Care Care Encounter Source Date/Time Date/Time Type Type Clinicians Facility Department ID 2023-01-06 Outpatient [facility] [id number] [place] 14:54:03 [id number] [facility] 2023-01-15 2023-01-15 Outpatient SANJANA [facility] [id number] [place] 11:00:00 11:00:00 DALTON silva 2023-01-15 2023-01-15 Outpatient [facility] [id number] [place] 11:00:00 11:00:00 [facility] 2022-12-17 2022-12-27 Inpatient E LOBO [facility] MED [id number] [facility] 02:57:00 20:30:00 JUANITO 2022-08-14 2022-08-18 Inpatient EM Soham, [facility]ANW [facility] [id number] [facility] 19:48:00 16:59:00 Jane 11 [facility] are [facility] 2022-03-25 2022-03-25 Emergency EM Cm, HCANW [facility] [id number] [facility] 16:56:00 20:49:00 Dalton 03 [facility] are [facility] 2022-03-25 2022-03-25 Emergency EM Cm, HCANW HCANW [id number] [facility] 16:56:00 20:49:00 Dalton [id number] [facility] are [facility] 2019-12-05 2019-12-06 Inpatient [facility] [id number] [facility] 15:17:39 20:00:00 pj Martell [address] 2019-12-05 2019-12-06 Inpatient E AMENA T MED [id number] TW 13:24:00 15:00:00 KEYLA GR 2019-11-18 2019-11-19 Emergency [facility]Fl[facility] [id number] [facility] 23:53:49 05:18:00 pj Martell [address] 2019-11-18 2019-11-18 Emergency E ABHINAV [facility] [id number] TW 17:53:00 23:18:00 FCO 2019-10-20 2019-10-26 Inpatient [facility]Fl[facility] [id number] Mem[facility] 18:04:11 02:32:00 pj Avila 10 [facility] 2019-10-21 2019-10-20 Inpatient E MHTW MED [id number] [facility]W 14:53:00 19:36:00 2019-10-03 2019-10-05 Inpatient [facility]Fl[facility] [id number] [facility] 19:36:06 23:00:00 pj Martell The 09 [facility] 2019-10-03 2019-10-03 Inpatient E MHTW MED [id number] M[facility]W 16:40:00 13:36:00 2018-09-08 2018-09-08 Emergency nullFlavo [facility] [id number] [facility] 01:21:00 05:22:00 pj Martell [address] [place] [address] 2018-09-07 2018-09-07 Emergency E MHSE MHSE [id number] 19:21:00 19:21:00 [facility] 2018-05-31 2018-05-31 Emergency nullFlavo [facility] [id number] [facility] 18:38:00 20:52:00 pj Avila 07 [facility] 2016-12-10 2016-12-10 Emergency [facility]Fl[facility] [id number] Memoria 06:34:00 10:45:00 pj Avila 06 [facility] 2015-06-09 2015-06-09 EC nullFlavo [facility] [id number] [facility] 06:10:00 10:57:00 Emergency pj Martell The 05 [facility] 2015-04-06 2015-04-06 EC nullFlavo [facility] [id number] [facility]oria 02:07:00 13:50:00 Emergency r Jasbir The 04 [facility] 2014-04-12 2014-04-17 Inpatient [facility]Fl[facility] [id number] [facility] 15:37:00 01:00:00 pj Avila 03 [facility] 2012-06-22 2012-06-22 Emergency nullFlavo [facility] [id number] Memoria 12:37:00 15:22:00 pj Kramer 02 Jas[facility] 2012-06-09 2012-06-11 Inpatient nullFlavo Not Sent [id number] Memoria 11:40:00 16:30:00 pj Martell 2012-05-25 2012-05-25 OD CARLY LAVERNE [id number] [facility] 09:09:00 09:09:00 darlene J[facility] Results Test Description Test Time Test Comments Results Result Comments Source GLUBED 2022-08-18 12:29:00 Test Item Value Reference Range Interpretation Comme nts GLUBED (test code = GLUBED) 165 MG/DL 70-105 H COMPREHENSIVE METABOLIC [id number] 08:25:00 Test Item Value Reference Range Interpretation [...] PHOSPHATASE (test code = ALKP) CBC W/AUTO [id number] 08:06:00 Test Item Value Reference Range Interpretation [...] = BA#) 0.0 x10 3/uL 0.0-0.1 N [id number] 06:04:00 Test Item Value Reference Range Interpretation Comments GLUBED (test code = GLUBED) 126 MG/DL 70-105 H - XR ABDOMEN [id number] 00:36:00 [facility] 1945 Sex: FPatient Name: MARIAH OQUENDO Unit No: [id number] EXAMS: CPT: [id number] XR ABDOMEN 1V 52085 ABDOMEN 1 VIEW: CLINICAL HISTORY: Abdominal pain COMPARISON: 08/17/2022, 5 hours prior FINDINGS: Fecal impactionthe rectum remains. Colonic distention has slightly improved. IMPRESSION: Improvement in colonic distention. at 0036 Reported and signed by: Bart Garcia MD CC: Jane Rousseau MD; Dmitri Davidson MD Technologist: PAULINE Vega Time: DAP (Gy m2): Air Kerma (mGy): Trscr Dt/Tm: 08/18/2022 (0036) by:[email or web address] Orig Print D/T: S: 08/18/2022 (0040) BATCH NO: N/A Name: MARIAH OQUENDO [facility] Phys: Jane Yadav MD [address] [place] : 1945 Age: 77 Sex: F [place], [place] [address] Loc: [id number] 1 ExamDate: 08/17/2022 Status: ADM IN PH: FAX: PAGE 1 Signed Report- XR ABDOMEN [id number] 22:34:00 [facility] : 1945 Sex: FPatient Name: MARIAH OQUENDO Unit No: [id number] EXAMS: CPT: [id number] XR ABDOMEN 1V 01758 ABDOMEN 1 VIEW: CLINICAL HISTORY: Abdominal pain COMPARISON: 08/16/2022 FINDINGS: Large amount of fecal materialimpacted in the rectum without change. Moderate diffuse gaseous distention of the colon is also unchanged. IMPRESSION:No interval change in colonic distention and fecal impaction in the rectum at 2234 Reported and signed by: Bart Garcia MD CC: Jane Rousseau MD; Dmitri Davidson MD Technologist: Tina Vega Time: DAP (Gy m2): Air Kerma (mGy): Trscr Dt/Tm: 08/17/2022 (2233) by:[email or web address] Orig Print D/T: S: 08/17/2022 (2237) BATCH NO: N/A Name: MARIAH OQUENDO [facility] Phys: Jane Yadav MD [address] [place] : 1945 Age: 77 Sex: F [place], [place] [address] Loc: [id number] 1 Exam Date: 08/17/2022 Status: ADM IN PH: FAX: PAGE 1 Signed [id number] 20:56:00 Test Item Value Reference Range Interpretation Comments GLUBED (test code = GLUBED) 157 MG/DL 70-105 H [id number] 16:00:00 Test Item Value Reference Range Interpretation Comments GLUBED (test code = GLUBED) 202 MG/DL 70-105 H [id number] 11:09:00 Test Item Value Reference Range Interpretation Comments GLUBED (test code = GLUBED) 238 MG/DL 70-105 H [id number] 05:24:00 Test Item Value Reference Range Interpretation Comments GLUBED (test code = GLUBED) 115 MG/DL 70-105 H [id number] 23:01:00 Test Item Value Reference Range Interpretation Comments GLUBED (test code = GLUBED) 192 MG/DL 70-105 H - DUP VEIN UNI [id number] 22:52:00 [facility] : 1945 Sex: FPatient Name: MARIAH OQUENDO Unit No: [id number] EXAMS: CPT: [id number] [address] RIGHT UPPER EXTREMITY VENOUS DOPPLER ULTRASOUND: CLINICAL HISTORY: Arm swelling. TECHNIQUE: Grayscale real-time B-mode imaging with color flow and spectral flow Doppler analysis was performed FINDINGS: There isnormal compressibility and augmentation with no evidence of thrombus involving the internal jugular,subclavian, axillary, cephalic, basilic and brachial veins. The ulnar and radial veins are patent. IMPRESSION: No evidence of deep venous thrombosis in the right upper extremity. at 2252 Reported and signed by: Bart Garcia MD CC: Jane Rousseau MD; Dmitri Davidson MD Technologist: KATHERYN Powell Probe: Trscr Dt/Tm: 08/16/2022 (2251) by:[email or web address] Orig Print D/T: S: 08/16/2022 (225) BATCH NO: N/A Name: MARIAH OQUENDO [facility] Phys: Jane Yadav MD [address] [place] : 1945 Age: 77 Sex: F [place] [id number] Loc: [phone] 1 Exam Date: 08/16/2022 Status: ADM IN PH: FAX: PAGE 1 Signed ReportUA RFLX MICR CULT IF [id number] 17:22:00 Test Item Value Reference Range Interpretation [...] MUCU) Indication for culture: Dysuria/FrequencySpecimen Description: CATHETERIZED (STRAIGHT)[id number] 15:23:00 Test Item Value Reference Range Interpretation Comments GLUBED (test code = GLUBED) 174 MG/DL 70-105 H [id number] 11:10:00 Test Item Value Reference Range Interpretation Comments GLUBED (test code = GLUBED) 157 MG/DL 70-105 H [id number] 08:51:00 Test Item Value Reference Range Interpretation Comments GLUBED (test code = GLUBED) 142 MG/DL 70-105 H - XR ABDOMEN [id number] 07:52:00 [facility] : 1945 Sex: FPatient Name: MARIAH OQUENDO Unit No: [id number] EXAMS: CPT: [id number] XR ABDOMEN 1V 88961 EXAM: XR ABDOMEN 1 VIEW DATE: 08/16/2022 [...] Tina Vega Time: DAP (Gy m2): Air Kerma (mGy): Trscr Dt/Tm: 08/16/2022 (075) by:[email or web address] Orig Print D/T: S: 08/16/2022 (0755) BATCH NO: N/A Name: MARIAH OQUENDO [facility] Phys: Jane Yadav MD [address] [facility] : 1945 Age: 77 Sex: F [place] [address] Loc: N.0560 1 Exam Date: 08/16/2022 Status: ADM IN PH: FAX: PAGE 1 Signed [id number] 07:49:00 Test Item Value Reference Range Interpretation Comments GLUBED (test code = GLUBED) 65 MG/DL 70-105 L COMPREHENSIVE METABOLIC [id number] 07:29:00 Test Item Value Reference Range Interpretation [...] PHOSPHATASE (test code = ALKP) CBC W/AUTO [id number] 06:53:00 Test Item Value Reference Range Interpretation [...] = BA#) 0.0 x10 3/uL 0.0-0.1 N [id number] 20:59:00 Test Item Value Reference Range Interpretation Comments GLUBED (test code = GLUBED) 131 MG/DL 70-105 H [id number] 17:42:00 Test Item Value Reference Range Interpretation Comments GLUBED (test code = GLUBED) 129 MG/DL 70-105 H [id number] 15:24:00 Test Item Value Reference Range Interpretation Comments GLUBED (test code = GLUBED) 47 MG/DL 70-105 LL [id number] 19:17:00 Test Item Value Reference Range Interpretation Comments TROPONIN-I (test code = TROPI) <0.020 ng/mL 0.000-0.034 N - CT ABD PELVIS [id number] 18:58:00 [facility] : 1945 Sex: FPatient Name: MARIAH OQUENDO Unit No: [id number] EXAMS: CPT: [id number] CT ABD PELVIS W/CONT 32373 CLINICAL HISTORY: cough, vomiting. COMPARISON: none TECHNIQUE: CT of the chest, abdomen and pelvis following the administration of intravenous contrast. Coronal and sagittal reformatted images were generated. CT radiation dose optimization is achieved for this examination by the use of a CT protocol in accordance with ACR practice standards and adherence to manufacturers recommendations One or more of thefollowing dose reduction techniques were used: Automated exposure control, adjustment of the mA and/or KV according to patient size, and/or utilization of iterative reconstruction technique. FIN DINGS: CHEST: Lines/Tubes/Devices: None Lungs and large airways: [...] ductal dilation. Adrenal glands: Unremarkable Name: MARIAH OQUENDO [facility] Phys: Barbara Beaulieu MD [address] [facility] : 1945 Age: 77 Sex: [place] [address] Loc: N.ERS Exam Date: 08/14/2022 Status: REG ER PH: FAX: PAGE 1 Signed Report (CONTINUED) Patient Name: MARIAH OQUENDO Unit No: [id number] EXAMS: CPT: [id number] CT ABD PELVIS W/CONT 01311 (Continued) Kidneys: The knees are normal in size and configuration. No hydronephrosis or nephrolithiasis. Scattered subcentimeter hypodense lesions within bilateral kidneys, toosmall to adequately characterize, likely representing small cysts. Lymph nodes/retroperitoneum: No lymphadenopathy. Vessels: Patent Bowel/Peritoneal cavity: Lack of oral contrast limits evaluation of bowel. There is severe fecal burden within the rectum with associated mild mural thickening of the rectal, raising concern for a stercoral colitis. Bladder: No focal bladder wall thickening Pelvic organs: Unremarkable Abdominal/Pelvic wall: Unremarkable Bones: Postsurgical changes of a L2-L5 spinal fusion posterior laminectomy. Age-indeterminate compression L1 vertebral. No aggressive osseous lesions. No acute fracture IMPRESSION: Severe fecal burden within the rectum with associated marked distention, and mild mural thickening, raising concern for stroke focal colitis in the appropriate clinical setting. Presumed simple cyst within bilateral kidneys. Small right-sided pleural effusion with associated compressive atelectasis. Additional findings as above. Electronically Signed by Sarah Livingston 08/14/2022 at 1858 Reported and signed by: Sarah Davis MD CC: Barbara Otero MD; Dmitri Davidson MD Technologist: Ritchie Terrazas CTDI: DLP: Trscr Dt/Tm: 08/14/2022 (1857) by:[email or web address] Orig Print D/T: S: 08/14/2022 (1900) BATCH NO: N/A Name: MARIAH OQUENDO [facility] Phys: Barbara Beaulieu MD [address] [facility] : 1945 Age: 77 [place]: [place] [id number] Loc: N.ERS Exam Date: 08/14/2022 Status: REG ER PH: FAX: PAGE 2 Signed Report- CT CHEST W/CONTRAST 2022-08-14 18:58:00 [facility] : 1945 Sex: FPatient Name: MARIAH OQUENDO Unit No: [id number] EXAMS: CPT: [id number] CT CHEST W/CONTRAST [address]5299 CLINICAL HISTORY: cough, vomiting. COMPARISON: none TECHNIQUE: CT of the chest, abdomen and pelvis following the administration of intravenous contrast. Coronal and sagittal reformatted images were generated. CT radiation dose optimization is achieved for this examination by the use of a CT protocol [facility] with ACR practice standards and adherence to [...] hilar adenopathy. Heart and great vessels: The heartis normal in size. The great vessels are normal size. No pericardial effusion. Calcified atherosclerotic plaque within the thoracic aorta. Trace pericardial effusion. Chest wall, lower neck, axillae: No axillary lymphadenopathy ABDOMEN AND PELVIS: Liver and biliary system: The liver is normal in sizemeasuring approximately 11.4 cm in dimension. No contour deforming lesions are identified. No intrahepatic or extra hepatic biliary ductal dilation. The gallbladder is unremarkable. Spleen: Unremarkable Pancreas: No main pancreatic ductal dilation. Adrenal glands: Unremarkable Name: MARIAH OQUENDO [facility] Phys: Barbara Beaulieu MD [address] [facility] : 1945 Age: 77 Sex: [place] [phone] Loc: N.ERS Exam Date: 08/14/2022 Status: REG ER PH: FAX: PAGE 1Signed Report (CONTINUED) Patient Name: MARIAH OQUENDO Unit No: [id number] EXAMS: CPT: [id number] CT CHEST W/CONTRAST 57728 (Continued) Kidneys: The knees are normal in size and configuration. No hydronephrosis or nephrolithiasis. Scattered subcentimeter hypodense lesions within bilateral kidneys, too small to adequately characterize, likely representing small cysts. Lymph nodes/retroperitoneum: Nolymphadenopathy. Vessels: Patent Bowel/Peritoneal cavity: Lack of oral contrast limits evaluation of bowel. There is severe fecal burden within the rectum with associated mild mural thickening of the rectal, raising concern for a stercoral colitis. Bladder: No focal bladder wall thickening Pelvic organs: Unremarkable Abdominal/Pelvic wall: Unremarkable Bones: Postsurgical changes of a L2-L5 spinal fusion posterior laminectomy. Age- indeterminate compression L1 vertebral. No aggressive osseous lesions. No acute fracture IMPRESSION: Severe fecal burden within the rectum with associated marked distention, and mild mural thickening, raising concern for stroke focal colitis in the appropriate clinical setting. Presumed simple cyst within bilateral kidneys. Small right-sided pleural effusion with associated compressive atelectasis. Additional findings as above. at 1858 Reported and signed by: Sarah Davis MD CC: Barbara Otero MD; Dmitri Davidson MD Technologist: Ritchie Terrazas CTDI: 7.67 DLP: 478.83 Trscr Dt/Tm: 08/14/2022 (1857) by:[email or web address] Orig Print D/T: S: 08/14/2022 (1900) BATCH NO: N/A Name: MARIAH OQUENDO [facility] ED Phys: Barbara Beaulieu MD [address] [facility] : 1945 Age: 77 Sex: [place] [address] Loc: N.ERS Exam Date: 08/14/2022 Status: REG ER PH: FAX: PAGE 2 Signed ReportBASIC METABOLIC [id number] 16:34:00 Test Item Value Reference Range Interpretation [...] 9.2 mg/dL 8.5-10.5 N CA) LIVER FUNCTION [id number] 16:34:00 Test Item Value Reference Range Interpretation [...] code = 57 U/L 42-121 N ALKP) [id number] 16:34:00 Test Item Value Reference Range Interpretation Comments LIPASE (test code = LIP) 30 IU/L 22-51 N [id number] 16:34:00 Test Item Value Reference Range Interpretation Comments MAGNESIUM (test code = MAG) 1.8 mg/dl 1.8-2.5 N HCG SERUM [id number] 15:45:00 Test Item Value Reference Range Interpretation Comments HCG SERUM QUAL NEGATIVE NEGATIVE This is a lisa litative (test code = HCGQL) screenin g test.The quantitative Bh cg may be helpful.Weakly positive results should be repeated in 48 hours. CBC W/AUTO [id number] 15:07:00 Test Item Value Reference Range Interpretation [...] 3/uL 0.0-0.1 N - XR CHEST 1 [id number] 14:44:00 [facility] : 1945 Sex: FPatient Name: MARIAH OQUENDO Unit No: [id number] EXAMS: CPT: [id number] XR CHEST 1 V 95560 EXAM: SINGLE VIEW OF THE CHEST HISTORY: Chest pain. COMPARISON: X-ray 03/25/2022. FINDINGS: Lines/tubes: None. Lungs/Pleura: No focal airspace opacity. Faint fissural line at the right midlung is unchanged. Pulmonary vasculature appears within normal limits. No pleural effusion or pneumothorax. Heart/mediastinum: Cardiomediastinal silhouette is within normal limits. Bones/soft tissues: Within normal limits. IMPRESSION: Stable exam. No acute cardiopulmonary findings. at 1444 Reported and signed by: JOSEPHINE VALLES MD CC: Barbara Otero MD; Dmitri Davidson MD Technologist: Merry Vega Time: DAP (Gy m2): Air Kerma (mGy): Trscr Dt/Tm: 08/14/2022(1444) by:[email or web address] Orig Print D/T: S: 08/14/2022 (1447) BATCH NO: N/A Name: MARIAH OQUENDO [facility] Phys: Barbara Beaulieu MD [address] : 1945 Age: 77 Sex: F [place] [address] Loc: N.ERS Exam Date: 08/14/2022 Status: PRE ER PH: FAX: PAGE 1 SignedReport- XR CHEST 1 [id number] 17:59:00 [facility] : 1945 Sex: FPatient Name: MARIAH OQUENDO Unit No: [id number] EXAMS: CPT: [id number] XR CHEST 1 V 51452 AP CHEST 1 VIEW COMPARISON: None HISTORY: RIGHT SHOULDER PAIN S/P BEING LIFTED FINDINGS: Cardiomediastinal silhouette is normal. Aortic arch calcifications. No focal lung consolidation. There is no pleural effusion. There is no pneumothorax. No acute bony abnormality. IMPRESSION: No acute cardiopulmonary findings. at 1759 Reported and signed by: Josias Cantu MD CC: Ramu DUNAWAY Technologist: Rohan Vega Time: DAP (Gy m2): Air Kerma (mGy): Trscr Dt/Tm: 03/25/2022 (1759) by:[email or web address] Orig Print D/T: S: 03/25/2022 (180) [facility] H NO: N/A Name: MARIAH OQUENDO [facility] Phys: Ramu Rangel [address] : 1945 Age: 76 Sex: [place] [address] Loc: N.ERS Exam Date: 03/25/2022 Status: REG ER PH: FAX: PAGE 1 Signed Report- XR HUMERUS 2 + V [id number] 17:53:00 [facility] : 1945 Sex: FPatient Name: MARIAH OQUENDO Unit No: [id number] EXAMS: CPT: [id number] XR HUMERUS 2 + V RT [id number] EXAM:XR RIGHT HUMERUS 2 VIEWS EXAM: XR [...] (mGy): Trscr Dt/Tm: 03/25/2022 (1752) by:[email or web address] Orig PrintD/T: S: 03/25/2022 (1755) BATCH NO: N/A Name: MARIAH OQUENDO [facility] Phys: Ramu Acosta [address] [facility] : 1945 Age: 76 Sex: F [place] [address] Loc: N.ERS Exam Date: 03/25/2022 Status: REG ER PH: FAX: PAGE 1 Signed Report- XR SHOULDER 2 + V [id number] 17:53:00 [facility] : 1945 Sex: FPatient Name: MARIAH OQUENDO Unit No: [id number] EXAMS: CPT: [id number] XR SHOULDER 2 + V RT [id number] EXAM: XR RIGHT HUMERUS 2 VIEWS EXAM: [...] m2): Air Kerma (mGy): Trscr Dt/Tm: 03/25/2022 (175) by:[email or web address] Orig Print D/T: S: 03/25/2022 (1755) BATCH NO: N/A Name: MARIAH OQUENDO [facility] Phys: Ramu Garcia [address] : 1945 Age: 76 Sex: F [place] [address] Loc: N.ERS Exam Date: 03/25/2022 Status: REG ER PH: FAX: PAGE 1 Signed ReportCHEM [id number] 06:29:50 Test Item Value Reference Range Interpretation Comments Glucose Lvl (test code = Glucose Lvl) 140 70-99 [place] [address]-03-24 06:29:50 Test Item Value Reference Range Interpretation Comments BUN (test code = BUN) 22 7-22 [place] [address]8530-03-24 06:29:50 Test Item Value Reference Range Interpretation Comments Creatinine Lvl (test code = Creatinine 0.90 0.50-1.40 Lvl) [place] [address]-03-24 06:29:50 Test Item Value Reference Range Interpretation Comments Sodium Lvl (test code = Sodium Lvl) 138 135-145 [place] [address]-03-24 06:29:50 Test Item Value Reference Range Interpretation Comments Potassium Lvl (test code = Potassium 4.4 3.5-5.1 Lvl) [place] [address]-03-24 06:29:50 Test Item Value Reference Range Interpretation Comments Chloride Lvl (test code = Chloride Lvl) 110 95-109 [place] [address]30-03-24 06:29:50 Test Item Value Reference Range Interpretation Comments CO2 (test code = CO2) 25 24-32 [place] [address]-03-24 06:29:50 Test Item Value Reference Range Interpretation Comments Calcium Lvl (test code = Calcium Lvl) 8.5 8.5-10.5 [place] [address]-03-24 06:29:50 Test Item Value Reference Range Interpretation Comments Total Protein (test code = Total 5.5 6.4-8.4 Protein) [place] [address]-03-24 06:29:50 Test Item Value Reference Range Interpretation Comments Albumin Lvl (test code = Albumin Lvl) 2.4 3.5-5.0 [place] [address]-03-24 06:29:50 Test Item Value Reference Range Interpretation Comments ALT (test code = ALT) 13 See_Comment [Auto mated message] The system which ge nerated this result transmit thelma reference range : <=65. The reference range was not used to interpr et this result as zana l/abnormal. [place] [address]30-03-24 06:29:50 Test Item Value Reference Range Interpretation Comments AST (test code = AST) 11 See_Comment [Auto mated message] The system which ge nerated this result transmit thelma reference range : <=37. The reference range was not used to interpr et this result as zana l/abnormal. [facility] [id number] 06:29:50 Test Item Value Reference Range Interpretation Comments Alk Phos (test code = Alk Phos) 43 39-136 [facility] [id number] 06:29:50 Test Item Value Reference Range Interpretation Comments Bili Total (test code = Bili Total) 0.1 0.2-1.3 [facility] HospitalProject ManagerBETH [place] [id number] 06:29:50 Test Item Value Reference Range Interpretation Comments AGAP (test code = AGAP) 7.4 10.0-20.0 [place] [address]30-03-24 06:29:50 Test Item Value Reference Range Interpretation Comments B/C Ratio (test code = B/C Ratio) 24 1 6-25 [facility] [id number] 06:29:50 Test Item Value Reference Range Interpretation Comments Globulin (test code = Globulin) 3.1 2.7-4.2 [facility] [id number] 06:29:50 Test Item Value Reference Range Interpretation Comments A/G Ratio (test code = A/G Ratio) 0.8 1 0.7-1.6 [place] [address]-03-24 06:29:50 Test Item Value Reference Range Interpretation Comments eGFR (test code = eGFR) 64 [place] [address]-03-24 06:29:50 Test Item Value Reference Range Interpretation Comments Segs (test code = Segs) 83.6 45.0-75.0 [facility] HospitalWxcxfrvDJDLAEJDRO9535-83-35 06:29:50 Test Item Value Reference Range Interpretation Comments Lymphocytes (test code = Lymphocytes) 7.7 20.0-40.0 [place] [address]-03-24 06:29:50 Test Item Value Reference Range Interpretation Comments Monocytes (test code = Monocytes) 4.5 2.0-12.0 [facility] [id number] 06:29:50 Test Item Value Reference Range Interpretation Comments Eosinophils (test code = 3.8 See_Comment [A utomated message] The Eosinophils) system which ge nerated this result tra nsmitted reference range : <=4.0. The reference r eric was not used to int erpret this result as normal/abnormal . [id number] 06:29:50 Test Item Value Reference Range Interpretation Comments Basophils (test code = 0.4 See_Comment [Aut omated message] The Basophils) system which ge nerated this result tra nsmitted reference range : <=1.0. The reference r eric was not used to int erpret this result as normal/abnormal . [facility]iscoRbmlxtpSLMNWSCKZF0404-19-48 06:29:50 Test Item Value Reference Range Interpretation Comments Neutrophils # (test code = Neutrophils 6.2 1.5-8.1 #) [facility]iscoHizjfrrSJEXDOYSUG4778-23-44 06:29:50 Test Item Value Reference Range Interpretation Comments Lymphocytes # (test code = Lymphocytes 0.6 1.0-5.5 #) [facility]iscoAlvfjieZEVXTBVTTW6977-60-56 06:29:50 Test Item Value Reference Range Interpretation Comments Monocytes # (test code 0.3 See_Comment [Aut omated message] The = Monocytes #) system which generated this result tra nsmitted reference range : <=0.8. The reference r eric was not used to int erpret this result as normal/abnormal . [facility]iscoWivlrpzGTIBLOYEFA7204-60-70 06:29:50 Test Item Value Reference Range Interpretation Comments Eosinophils # (test code 0.3 See_Comment [A utomated message] The = Eosinophils #) system whic h generated this result tra nsmitted reference range : <=0.5. The reference r eric was not used to int erpret this result as normal/abnormal . [facility] FriscoUpcvecvPMEWHFIXDG6073-93-51 06:29:50 Test Item Value Reference Range Interpretation Comments WBC (test code = WBC) 7.5 3.7-10.4 [place] [address]000-03-24 06:29:50 Test Item Value Reference Range Interpretation Comments RBC (test code = RBC) 3.31 4.20-5.40 [place] 316000-03-24 06:29:50 Test Item Value Reference Range Interpretation Comments Hgb (test code = Hgb) 8.5 12.0-16.0 [place] 316000-03-24 06:29:50 Test Item Value Reference Range Interpretation Comments Hct (test code = Hct) 26.9 36.0-48.0 [place] [address]-03-24 06:29:50 Test Item Value Reference Range Interpretation Comments MCV (test code = MCV) 81.5 80.0-98.0 [place] [address]-03-24 06:29:50 Test Item Value Reference Range Interpretation Comments MCH (test code = MCH) 25.7 pg 27.0-31.0 [place] [address]-03-24 06:29:50 Test Item Value Reference Range Interpretation Comments MCHC (test code = MCHC) 31.6 32.0-36.0 [place] [address]-03-24 06:29:50 Test Item Value Reference Range Interpretation Comments RDW (test code = RDW) 14.6 11.5-14.5 [address]03-24 06:29:50 Test Item Value Reference Range Interpretation Comments Platelet (test code = Platelet) 257 133-450 [place] [address]-03-24 06:29:50 Test Item Value Reference Range Interpretation Comments MPV (test code = MPV) 8.9 7.4-10.4 [place] [address]30-03-24 06:29:50 Test Item Value Reference Range Interpretation Comments Glucose Lvl (test code = Glucose Lvl) 140 70-99 [place] [address]-03-24 06:29:50 Test Item Value Reference Range Interpretation Comments BUN (test code = BUN) 22 7-22 [place] [address]8530-03-24 06:29:50 Test Item Value Reference Range Interpretation Comments Creatinine Lvl (test code = Creatinine 0.90 0.50-1.40 Lvl) [place] [address]-03-24 06:29:50 Test Item Value Reference Range Interpretation Comments Sodium Lvl (test code = Sodium Lvl) 138 135-145 [place] 078530-03-24 06:29:50 Test Item Value Reference Range Interpretation Comments Potassium Lvl (test code = Potassium 4.4 3.5-5.1 Lvl) [place] [address]-03-24 06:29:50 Test Item Value Reference Range Interpretation Comments Chloride Lvl (test code = Chloride Lvl) 110 95-109 [facility]Project ManagerBETH [place] [id number] 06:29:50 Test Item Value Reference Range Interpretation Comments CO2 (test code = CO2) 25 24-32 [facility] [employer] [id number] 06:29:50 Test Item Value Reference Range Interpretation Comments Calcium Lvl (test code = Calcium Lvl) 8.5 8.5-10.5 [facility] [id number] 06:29:50 Test Item Value Reference Range Interpretation Comments Total Protein (test code = Total 5.5 6.4-8.4 Protein) [facility] HospitalProject ManagerB[place] [id number] 06:29:50 Test Item Value Reference Range Interpretation Comments Albumin Lvl (test code = Albumin Lvl) 2.4 3.5-5.0 [facility] [id number] 06:29:50 Test Item Value Reference Range Interpretation Comments ALT (test code = ALT) 13 See_Comment [Auto mated message] The system which ge nerated this result transmit thelma reference range : <=65. The reference range was not used to interpr et this result as zana l/abnormal. [facility] [employer] [id number] 06:29:50 Test Item Value Reference Range Interpretation Comments AST (test code = AST) 11 See_Comment [Auto mated message] The system which ge nerated this result transmit thelma reference range : <=37. The reference range was not used to interpr et this result as zana l/abnormal. [facility] [id number] 06:29:50 Test Item Value Reference Range Interpretation Comments Alk Phos (test code = Alk Phos) 43 39-136 [facility] [id number] 06:29:50 Test Item Value Reference Range Interpretation Comments Bili Total (test code = Bili Total) 0.1 0.2-1.3 [facility] [id number] 06:29:50 Test Item Value Reference Range Interpretation Comments AGAP (test code = AGAP) 7.4 10.0-20.0 [facility] [id number] 06:29:50 Test Item Value Reference Range Interpretation Comments B/C Ratio (test code = B/C Ratio) 24 1 6-25 [facility] [id number] 06:29:50 Test Item Value Reference Range Interpretation Comments Globulin (test code = Globulin) 3.1 2.7-4.2 [facility] [id number] 06:29:50 Test Item Value Reference Range Interpretation Comments A/G Ratio (test code = A/G Ratio) 0.8 1 0.7-1.6 [facility] [id number] 06:29:50 Test Item Value Reference Range Interpretation Comments eGFR (test code = eGFR) 64 [place] [address]-03-24 06:29:50 Test Item Value Reference Range Interpretation Comments Segs (test code = Segs) 83.6 45.0-75.0 [place] [address]-03-24 06:29:50 Test Item Value Reference Range Interpretation Comments Lymphocytes (test code = Lymphocytes) 7.7 20.0-40.0 [place] [address]-03-24 06:29:50 Test Item Value Reference Range Interpretation Comments Monocytes (test code = Monocytes) 4.5 2.0-12.0 [place] [address]-03-24 06:29:50 Test Item Value Reference Range Interpretation Comments Eosinophils (test code = 3.8 See_Comment [A utomated message] The Eosinophils) system which ge nerated this result tra nsmitted reference range : <=4.0. The reference r eric was not used to int erpret this result as normal/abnormal . [place] [address]000-03-24 06:29:50 Test Item Value Reference Range Interpretation Comments Basophils (test code = 0.4 See_Comment [Aut omated message] The Basophils) system which ge nerated this result tra nsmitted reference range : <=1.0. The reference r eric was not used to int erpret this result as normal/abnormal . [place] [address]000-03-24 06:29:50 Test Item Value Reference Range Interpretation Comments Neutrophils # (test code = Neutrophils 6.2 1.5-8.1 #) [place] [address]000-03-24 06:29:50 Test Item Value Reference Range Interpretation Comments Lymphocytes # (test code = Lymphocytes 0.6 1.0-5.5 #) [place] [address]000-03-24 06:29:50 Test Item Value Reference Range Interpretation Comments Monocytes # (test code 0.3 See_Comment [Aut omated message] The = Monocytes #) system which generated this result tra nsmitted reference range : <=0.8. The reference r eric was not used to int erpret this result as normal/abnormal . [facility]iscoVjgqqxaTVVXIMNFUW0532-31-65 06:29:50 Test Item Value Reference Range Interpretation Comments Eosinophils # (test code 0.3 See_Comment [A utomated message] The = Eosinophils #) system whic h generated this result tra nsmitted reference range : <=0.5. The reference r eric was not used to int erpret this result as normal/abnormal . [facility] FriscoVguhuaiKXOHMEYLXE6954-30-32 06:29:50 Test Item Value Reference Range Interpretation Comments WBC (test code = WBC) 7.5 3.7-10.4 [facility] FriscoMzvwiqiREBPPYMFDN4530-16-23 06:29:50 Test Item Value Reference Range Interpretation Comments RBC (test code = RBC) 3.31 4.20-5.40 [facility]LgbnblxGFLYQZFZIQ5999-37-80 06:29:50 Test Item Value Reference Range Interpretation Comments Hgb (test code = Hgb) 8.5 12.0-16.0 [facility]iscoEpnymseHKYNHMRCCS8604-26-65 06:29:50 Test Item Value Reference Range Interpretation Comments Hct (test code = Hct) 26.9 36.0-48.0 [facility] FriscoKevjpdvCDKWXOSIBA5883-38-62 06:29:50 Test Item Value Reference Range Interpretation Comments MCV (test code = MCV) 81.5 80.0-98.0 [facility] FriscoLpbwwejWXIUNHJTZJ8168-63-30 06:29:50 Test Item Value Reference Range Interpretation Comments MCH (test code = MCH) 25.7 pg 27.0-31.0 [facility] FriscoVvjvffrLUTQJJUCZN1766-91-47 06:29:50 Test Item Value Reference Range Interpretation Comments MCHC (test code = MCHC) 31.6 32.0-36.0 [facility] FriscoMaivrmyBXAAIWSAQW5041-89-41 06:29:50 Test Item Value Reference Range Interpretation Comments RDW (test code = RDW) 14.6 11.5-14.5 [facility] FriscoSxfhzaeVOFNVZUBOO7050-24-58 06:29:50 Test Item Value Reference Range Interpretation Comments Platelet (test code = Platelet) 257 133-450 [place] 316000-03-24 06:29:50 Test Item Value Reference Range Interpretation Comments MPV (test code = MPV) 8.9 7.4-10.4 [place] [address]-03-24 06:29:50 Test Item Value Reference Range Interpretation Comments Glucose Lvl (test code = Glucose Lvl) 140 70-99 [place] [address]-03-24 06:29:50 Test Item Value Reference Range Interpretation Comments BUN (test code = BUN) 22 7-22 [place] 078530-03-24 06:29:50 Test Item Value Reference Range Interpretation Comments Creatinine Lvl (test code = Creatinine 0.90 0.50-1.40 Lvl) [place] [address]-03-24 06:29:50 Test Item Value Reference Range Interpretation Comments Sodium Lvl (test code = Sodium Lvl) 138 135-145 [place] [address]-03-24 06:29:50 Test Item Value Reference Range Interpretation Comments Potassium Lvl (test code = Potassium 4.4 3.5-5.1 Lvl) [place] 078530-03-24 06:29:50 Test Item Value Reference Range Interpretation Comments Chloride Lvl (test code = Chloride Lvl) 110 95-109 [place] [address]-03-24 06:29:50 Test Item Value Reference Range Interpretation Comments CO2 (test code = CO2) 25 24-32 [place] [address]-03-24 06:29:50 Test Item Value Reference Range Interpretation Comments Calcium Lvl (test code = Calcium Lvl) 8.5 8.5-10.5 [place] 078530-03-24 06:29:50 Test Item Value Reference Range Interpretation Comments Total Protein (test code = Total 5.5 6.4-8.4 Protein) [place] [address]-03-24 06:29:50 Test Item Value Reference Range Interpretation Comments Albumin Lvl (test code = Albumin Lvl) 2.4 3.5-5.0 [place] 078530-03-24 06:29:50 Test Item Value Reference Range Interpretation Comments ALT (test code = ALT) 13 See_Comment [Auto mated message] The system which ge nerated this result transmit thelma reference range : <=65. The reference range was not used to interpr et this result as zana l/abnormal. [facility]2020-03-24 06:29:50 Test Item Value Reference Range Interpretation Comments AST (test code = AST) 11 See_Comment [Auto mated message] The system which ge nerated this result transmit thelma reference range : <=37. The reference range was not used to interpr et this result as zana l/abnormal. [place] 078530-03-24 06:29:50 Test Item Value Reference Range Interpretation Comments Alk Phos (test code = Alk Phos) 43 39-136 [place] 078530-03-24 06:29:50 Test Item Value Reference Range Interpretation Comments Bili Total (test code = Bili Total) 0.1 0.2-1.3 [place] 078530-03-24 06:29:50 Test Item Value Reference Range Interpretation Comments AGAP (test code = AGAP) 7.4 10.0-20.0 [place] 078530-03-24 06:29:50 Test Item Value Reference Range Interpretation Comments B/C Ratio (test code = B/C Ratio) 24 1 6-25 [place] [address]-03-24 06:29:50 Test Item Value Reference Range Interpretation Comments Globulin (test code = Globulin) 3.1 2.7-4.2 [place] 078530-03-24 06:29:50 Test Item Value Reference Range Interpretation Comments A/G Ratio (test code = A/G Ratio) 0.8 1 0.7-1.6 [place] 078530-03-24 06:29:50 Test Item Value Reference Range Interpretation Comments eGFR (test code = eGFR) 64 [place] [address]-03-24 06:29:50 Test Item Value Reference Range Interpretation Comments Segs (test code = Segs) 83.6 45.0-75.0 [place] [address]-03-24 06:29:50 Test Item Value Reference Range Interpretation Comments Lymphocytes (test code = Lymphocytes) 7.7 20.0-40.0 [place] [address]-03-24 06:29:50 Test Item Value Reference Range Interpretation Comments Monocytes (test code = Monocytes) 4.5 2.0-12.0 [place] [address]-03-24 06:29:50 Test Item Value Reference Range Interpretation Comments Eosinophils (test code = 3.8 See_Comment [A utomated message] The Eosinophils) system which ge nerated this result tra nsmitted reference range : <=4.0. The reference r eric was not used to int erpret this result as normal/abnormal . [facility]iscoPqhkcqwNDAKXVDBAM6383-27-22 06:29:50 Test Item Value Reference Range Interpretation Comments Basophils (test code = 0.4 See_Comment [Aut omated message] The Basophils) system which ge nerated this result tra nsmitted reference range : <=1.0. The reference r eric was not used to int erpret this result as normal/abnormal . [place] 316000-03-24 06:29:50 Test Item Value Reference Range Interpretation Comments Neutrophils # (test code = Neutrophils 6.2 1.5-8.1 #) [facility] FriscoXmmixfaSVGYBXXXKB8444-81-23 06:29:50 Test Item Value Reference Range Interpretation Comments Lymphocytes # (test code = Lymphocytes 0.6 1.0-5.5 #) [place] 316000-03-24 06:29:50 Test Item Value Reference Range Interpretation Comments Monocytes # (test code 0.3 See_Comment [Aut omated message] The = Monocytes #) system which generated this result tra nsmitted reference range : <=0.8. The reference r eric was not used to int erpret this result as normal/abnormal . [facility] FriscoBlrgynhUUAYEECKJH1161-10-79 06:29:50 Test Item Value Reference Range Interpretation Comments Eosinophils # (test code 0.3 See_Comment [A utomated message] The = Eosinophils #) system whic h generated this result tra nsmitted reference range : <=0.5. The reference r eric was not used to int erpret this result as normal/abnormal . [facility] FriscoMkkeygbUAXREVPJXT2055-65-09 06:29:50 Test Item Value Reference Range Interpretation Comments WBC (test code = WBC) 7.5 3.7-10.4 [place] 316000-03-24 06:29:50 Test Item Value Reference Range Interpretation Comments RBC (test code = RBC) 3.31 4.20-5.40 [place] 316000-03-24 06:29:50 Test Item Value Reference Range Interpretation Comments Hgb (test code = Hgb) 8.5 12.0-16.0 [facility]FH8367[facility]-62 06:29:50 Test Item Value Reference Range Interpretation Comments Hct (test code = Hct) 26.9 36.0-48.0 [facility] FriscoDnejippBZKRAWJQZL1679-92-11 06:29:50 Test Item Value Reference Range Interpretation Comments MCV (test code = MCV) 81.5 80.0-98.0 [facility] FriscoMvusvopDNYZPNIQXT9607-55-27 06:29:50 Test Item Value Reference Range Interpretation Comments MCH (test code = MCH) 25.7 pg 27.0-31.0 [facility]YouctpzYFYRFKRYSU3275-48-09 06:29:50 Test Item Value Reference Range Interpretation Comments MCHC (test code = MCHC) 31.6 32.0-36.0 [facility]iscoXlcqzrsOWRAKJGTXY9972-08-91 06:29:50 Test Item Value Reference Range Interpretation Comments RDW (test code = RDW) 14.6 11.5-14.5 [facility] FriscoOeztnzuFKLSDUIIRQ3247-57-10 06:29:50 Test Item Value Reference Range Interpretation Comments Platelet (test code = Platelet) 257 133-450 [facility] FriscoNziexskOKISSKSRXV2640-41-40 06:29:50 Test Item Value Reference Range Interpretation Comments MPV (test code = MPV) 8.9 7.4-10.4 [facility]2020-03-23 18:47:00 Test Item Value Reference Range Interpretation Comments Source Respiratory Nasophrngl Swb Panel PCR (test code = *NA*(12/05/19 1:47 PM) Source Respiratory Panel PCR) [facility]2020-03-23 18:47:00 Test Item Value Reference Range Interpretation Comments Influenza A PCR (test Negative *NA*(12/05/19 code = Influenza A PCR) 1:47 PM) [facility]2020-03-23 18:47:00 Test Item Value Reference Range Interpretation Comments Influenza B PCR (test Negative *NA*(12/05/19 code = Influenza B PCR) 1:47 PM) [facility]2020-03-23 18:47:00 Test Item Value Reference Range Interpretation Comments RSV PCR (test code = Negative *NA*(12/05/19 RSV PCR) 1:47 PM) [facility] [id number] 18:47:00 Test Item Value Reference Range Interpretation Comments Source Respiratory Nasophrngl Swb Panel PCR (test code = *NA*(12/05/19 1:47 PM) Source Respiratory Panel PCR) [facility] [id number] 18:47:00 Test Item Value Reference Range Interpretation Comments Influenza A PCR (test Negative *NA*(12/05/19 code = Influenza A PCR) 1:47 PM) [facility] [id number] 18:47:00 Test Item Value Reference Range Interpretation Comments Influenza B PCR (test Negative *NA*(12/05/19 code = Influenza B PCR) 1:47 PM) [facility] [id number] 18:47:00 Test Item Value Reference Range Interpretation Comments RSV PCR (test code = Negative *NA*(12/05/19 RSV PCR) 1:47 PM) [facility] [id number] 18:47:00 Test Item Value Reference Range Interpretation Comments Source Respiratory Nasophrngl Swb Panel PCR (test code = *NA*(12/05/19 1:47 PM) Source Respiratory Panel PCR) [facility] [id number] 18:47:00 Test Item Value Reference Range Interpretation Comments Influenza A PCR (test Negative *NA*(12/05/19 code = Influenza A PCR) 1:47 PM) [facility] [id number] 18:47:00 Test Item Value Reference Range Interpretation Comments Influenza B PCR (test Negative *NA*(12/05/19 code = Influenza B PCR) 1:47 PM) [facility] [id number] 18:47:00 Test Item Value Reference Range Interpretation Comments RSV PCR (test code = Negative *NA*(12/05/19 RSV PCR) 1:47 PM) [facility] [id number] 16:26:00 Test Item Value Reference Range Interpretation Comments Ferritin Lvl (test code = Ferritin Lvl) 19 [facility] [id number] 16:26:00 Test Item Value Reference Range Interpretation Comments Total CK (test code = Total CK) 24 12-191 [facility] [id number] 16:26:00 Test Item Value Reference Range Interpretation Comments Troponin-I (test code no gt See_Comment [Auto mated message] The = Troponin-I) system which g enerated this result transmit thelma reference range : <=0.40. The reference r eric was not used to interpr et this result as zana l/abnormal. [facility] [employer] [id number] 16:26:00 Test Item Value Reference Range Interpretation Comments Procalcitonin Lvl (test 1.36 See_Comment [Au tomated message] code = Procalcitonin Lvl) Th e system which generated this result transmitted ref erence range: <=0.10. The reference range was not used to interpr et this result as normal/abnormal . [facility] [employer] [id number] 16:26:00 Test Item Value Reference Range Interpretation Comments Glucose Lvl (test code = Glucose Lvl) 164 70-99 [facility] [employer] [id number] 16:26:00 Test Item Value Reference Range Interpretation Comments BUN (test code = BUN) 14 7-22 [facility] [employer] [id number] 16:26:00 Test Item Value Reference Range Interpretation Comments Creatinine Lvl (test code = Creatinine 0.75 0.50-1.40 Lvl) [facility] [id number] 16:26:00 Test Item Value Reference Range Interpretation Comments Sodium Lvl (test code = Sodium Lvl) 134 135-145 [facility] [employer] [id number] 16:26:00 Test Item Value Reference Range Interpretation Comments Potassium Lvl (test code = Potassium 4.3 3.5-5.1 Lvl) [facility] [employer] [id number] 16:26:00 Test Item Value Reference Range Interpretation Comments Chloride Lvl (test code = Chloride Lvl) 104 95-109 [facility] [employer] [id number] 16:26:00 Test Item Value Reference Range Interpretation Comments CO2 (test code = CO2) 25 24-32 [facility] [id number] 16:26:00 Test Item Value Reference Range Interpretation Comments Calcium Lvl (test code = Calcium Lvl) 9.1 8.5-10.5 [facility] [employer] [id number] 16:26:00 Test Item Value Reference Range Interpretation Comments Total Protein (test code = Total 6.8 6.4-8.4 Protein) [facility] [employer] [id number] 16:26:00 Test Item Value Reference Range Interpretation Comments Albumin Lvl (test code = Albumin Lvl) 3.0 3.5-5.0 [facility] [employer] [id number] 16:26:00 Test Item Value Reference Range Interpretation Comments ALT (test code = ALT) 15 See_Comment [Auto mated message] The system which ge nerated this result transmit thelma reference range : <=65. The reference range was not used to interpr et this result as zana l/abnormal. [facility] [employer] [id number] 16:26:00 Test Item Value Reference Range Interpretation Comments AST (test code = AST) 11 See_Comment [Auto mated message] The system which ge nerated this result transmit thelma reference range : <=37. The reference range was not used to interpr et this result as zana l/abnormal. [facility] [employer] [id number] 16:26:00 Test Item Value Reference Range Interpretation Comments Alk Phos (test code = Alk Phos) 58 39-136 [facility] [employer] [id number] 16:26:00 Test Item Value Reference Range Interpretation Comments Bili Total (test code = Bili Total) 0.2 0.2-1.3 [facility] [employer] [id number] 16:26:00 Test Item Value Reference Range Interpretation Comments AGAP (test code = AGAP) 9.3 10.0-20.0 [facility] [employer] [id number] 16:26:00 Test Item Value Reference Range Interpretation Comments B/C Ratio (test code = B/C Ratio) 19 1 6-25 [facility] [employer] [id number] 16:26:00 Test Item Value Reference Range Interpretation Comments Globulin (test code = Globulin) 3.8 2.7-4.2 [facility] [employer] [id number] 16:26:00 Test Item Value Reference Range Interpretation Comments A/G Ratio (test code = A/G Ratio) 0.8 1 0.7-1.6 [facility] [employer] [id number] 16:26:00 Test Item Value Reference Range Interpretation Comments eGFR (test code = eGFR) 79 [facility] [id number] 16:26:00 Test Item Value Reference Range Interpretation Comments Lactic Acid Lvl (test code = Lactic 0.8 0.5-2.2 Acid Lvl) [facility]2020-03-23 16:26:00 Test Item Value Reference Range Interpretation Comments LDH (test code = LDH) 211 98-192 [id number] 16:26:00 Test Item Value Reference Range Interpretation Comments WBC (test code = WBC) 12.3 3.7-10.4 [place] [address]-03-23 16:26:00 Test Item Value Reference Range Interpretation Comments RBC (test code = RBC) 3.87 4.20-5.40 [place] [address]-03-23 16:26:00 Test Item Value Reference Range Interpretation Comments Hgb (test code = Hgb) 9.9 12.0-16.0 [place] [address]-03-23 16:26:00 Test Item Value Reference Range Interpretation Comments Hct (test code = Hct) 31.5 36.0-48.0 [place] [address]-03-23 16:26:00 Test Item Value Reference Range Interpretation Comments MCV (test code = MCV) 81.2 80.0-98.0 [place] [address]-03-23 16:26:00 Test Item Value Reference Range Interpretation Comments MCH (test code = MCH) 25.5 pg 27.0-31.0 [place] [address]-03-23 16:26:00 Test Item Value Reference Range Interpretation Comments MCHC (test code = MCHC) 31.4 32.0-36.0 [place] [address]-03-23 16:26:00 Test Item Value Reference Range Interpretation Comments RDW (test code = RDW) 14.7 11.5-14.5 [place] 316000-03-23 16:26:00 Test Item Value Reference Range Interpretation Comments Platelet (test code = Platelet) 316 133-450 [id number] 16:26:00 Test Item Value Reference Range Interpretation Comments MPV (test code = MPV) 8.8 7.4-10.4 [facility] [id number] 16:26:00 Test Item Value Reference Range Interpretation Comments PT (test code = PT) 14.0 s 12.0-14.7 [facility] [id number] 16:26:00 Test Item Value Reference Range Interpretation Comments INR (test code = INR) 1.08 1 0.85-1.17 [facility] [id number] 16:26:00 Test Item Value Reference Range Interpretation Comments PTT (test code = PTT) 26.0 s 22.9-35.8 [facility] [id number] 16:26:00 Test Item Value Reference Range Interpretation Comments Segs (test code = Segs) 94.6 45.0-75.0 [facility] F[id number] 16:26:00 Test Item Value Reference Range Interpretation Comments Lymphocytes (test code = Lymphocytes) 1.5 20.0-40.0 [facility] [id number] 16:26:00 Test Item Value Reference Range Interpretation Comments Monocytes (test code = Monocytes) 2.9 2.0-12.0 [facility] [id number] 16:26:00 Test Item Value Reference Range Interpretation Comments Eosinophils (test code = 0.6 See_Comment [A utomated message] The Eosinophils) system which ge nerated this result tra nsmitted reference range : <=4.0. The reference r eric was not used to int erpret this result as normal/abnormal . [facility] [id number] 16:26:00 Test Item Value Reference Range Interpretation Comments Basophils (test code = 0.4 See_Comment [Aut omated message] The Basophils) system which ge nerated this result tra nsmitted reference range : <=1.0. The reference r eric was not used to int erpret this result as normal/abnormal . [facility]iscoNwuqpovEFHDNGBGYL1996-12-06 16:26:00 Test Item Value Reference Range Interpretation Comments Neutrophils # (test code = Neutrophils 11.7 1.5-8.1 #) [facility] [id number] 16:26:00 Test Item Value Reference Range Interpretation Comments Lymphocytes # (test code = Lymphocytes 0.2 1.0-5.5 #) [place] 316000-03-23 16:26:00 Test Item Value Reference Range Interpretation Comments Monocytes # (test code 0.4 See_Comment [Aut omated message] The = Monocytes #) system which generated this result tra nsmitted reference range : <=0.8. The reference r eric was not used to int erpret this result as normal/abnormal . [facility] CenterRitocnrOZSXBTKGBX8386-39-55 16:26:00 Test Item Value Reference Range Interpretation Comments Eosinophils # (test code 0.1 See_Comment [A utomated message] The = Eosinophils #) system whic h generated this result tra nsmitted reference range : <=0.5. The reference r eric was not used to int erpret this result as normal/abnormal . [facility] [id number] 16:26:00 Test Item Value Reference Range Interpretation Comments C-REACTIVE PROTEIN (test code = 15.4 C-REACTIVE PROTEIN) [facility] AND [id number] 16:26:00 Test Item Value Reference Range Interpretation Comments UA Turbidity (test code = Clear (12/05/19 11:26 UA Turbidity) AM) [facility] AND [id number] 16:26:00 Test Item Value Reference Range Interpretation Comments UA Spec Grav (test code = UA Spec 1.010 1 Grav) [facility] AND [id number] 16:26:00 Test Item Value Reference Range Interpretation Comments UA pH (test code = UA pH) 7.0 1 5.0-8.0 [facility] [id number] 16:26:00 Test Item Value Reference Range Interpretation Comments UA Protein (test code = UA Negative mg/dL Protein) [facility] [id number] 16:26:00 Test Item Value Reference Range Interpretation Comments UA Glucose (test code = UA Negative mg/dL Glucose) [facility] [id number] 16:26:00 Test Item Value Reference Range Interpretation Comments UA Ketones (test code = UA Negative mg/dL Ketones) [facility] AND [id number] 16:26:00 Test Item Value Reference Range Interpretation Comments UA Bili (test code = Negative *NA*(12/05/19 UA Bili) 11:26 AM) [facility] AND [id number] 16:26:00 Test Item Value Reference Range Interpretation Comments UA Blood (test code = Negative (12/05/19 11:26 UA Blood) AM) [facility] [id number] 16:26:00 Test Item Value Reference Range Interpretation Comments UA Nitrite (test code Negative (12/05/19 11:26 = UA Nitrite) AM) [facility] [id number] 16:26:00 Test Item Value Reference Range Interpretation Comments UA Leuk Est (test Negative (12/05/19 11:26 code = UA Leuk Est) AM) [facility] [id number] 16:26:00 Test Item Value Reference Range Interpretation Comments UA Sq Epi (test code = UA Sq Occasional /LPF Epi) [facility] [id number] 16:26:00 Test Item Value Reference Range Interpretation Comments UA WBC (test code = no gt See_Comment [Automa thelma message] The UA WBC) system which ge nerated this result transmit thelma reference range : <=5. The reference range was not used to interpr et this result as zana l/abnormal. [facility] [id number] 16:26:00 Test Item Value Reference Range Interpretation Comments UA RBC (test code = no gt See_Comment [Automa thelma message] The UA RBC) system which ge nerated this result transmit thelma reference range : <=2. The reference range was not used to interpr et this result as zana l/abnormal. [facility] [id number] 16:26:00 Test Item Value Reference Range Interpretation Comments UA Mucus (test code = UA Mucus) Few /LPF [facility] [id number] 16:26:00 Test Item Value Reference Range Interpretation Comments UA Color (test code = UA Color) YELLOW [facility] [id number] 16:26:00 Test Item Value Reference Range Interpretation Comments UA Urobilinogen (test code = UA <=1.0 mg/dL 0.1-1.0 Urobilinogen) [facility] [id number] 16:26:00 Test Item Value Reference Range Interpretation Comments Ferritin Lvl (test code = Ferritin Lvl) 19 5-204 [facility] [id number] 16:26:00 Test Item Value Reference Range Interpretation Comments Total CK (test code = Total CK) 24 12-191 [facility]Greencart[facility] [id number] 16:26:00 Test Item Value Reference Range Interpretation Comments Troponin-I (test code no gt See_Comment [Auto mated message] The = Troponin-I) system which g enerated this result transmit thelma reference range : <=0.40. The reference r eric was not used to interpr et this result as zana l/abnormal. [facility] [employer]2020-03-23 16:26:00 Test Item Value Reference Range Interpretation Comments Procalcitonin Lvl (test 1.36 See_Comment [Au tomated message] code = Procalcitonin Lvl) Th e system which generated this result transmitted ref erence range: <=0.10. The reference range was not used to interpr et this result as normal/abnormal . [facility] [employer]2020-03-23 16:26:00 Test Item Value Reference Range Interpretation Comments Glucose Lvl (test code = Glucose Lvl) 164 70-99 [facility] [employer]2020-03-23 16:26:00 Test Item Value Reference Range Interpretation Comments BUN (test code = BUN) 14 7-22 [facility] [employer]2020-03-23 16:26:00 Test Item Value Reference Range Interpretation Comments Creatinine Lvl (test code = Creatinine 0.75 0.50-1.40 Lvl) [facility] [employer]2020-03-23 16:26:00 Test Item Value Reference Range Interpretation Comments Sodium Lvl (test code = Sodium Lvl) 134 135-145 [facility] [employer]2020-03-23 16:26:00 Test Item Value Reference Range Interpretation Comments Potassium Lvl (test code = Potassium 4.3 3.5-5.1 Lvl) [facility] [employer]2020-03-23 16:26:00 Test Item Value Reference Range Interpretation Comments Chloride Lvl (test code = Chloride Lvl) 104 95-109 [facility] [employer]2020-03-23 16:26:00 Test Item Value Reference Range Interpretation Comments CO2 (test code = CO2) 25 24-32 [facility] [employer]2020-03-23 16:26:00 Test Item Value Reference Range Interpretation Comments Calcium Lvl (test code = Calcium Lvl) 9.1 8.5-10.5 [facility] [employer] [id number] 16:26:00 Test Item Value Reference Range Interpretation Comments Total Protein (test code = Total 6.8 6.4-8.4 Protein) [facility] [id number] 16:26:00 Test Item Value Reference Range Interpretation Comments Albumin Lvl (test code = Albumin Lvl) 3.0 3.5-5.0 [facility] [employer] [id number] 16:26:00 Test Item Value Reference Range Interpretation Comments ALT (test code = ALT) 15 See_Comment [Auto mated message] The system which ge nerated this result transmit thelma reference range : <=65. The reference range was not used to interpr et this result as zana l/abnormal. [facility] [employer] [id number] 16:26:00 Test Item Value Reference Range Interpretation Comments AST (test code = AST) 11 See_Comment [Auto mated message] The system which ge nerated this result transmit thelma reference range : <=37. The reference range was not used to interpr et this result as zana l/abnormal. [facility] [employer] [id number] 16:26:00 Test Item Value Reference Range Interpretation Comments Alk Phos (test code = Alk Phos) 58 39-136 [facility] [employer] [id number] 16:26:00 Test Item Value Reference Range Interpretation Comments Bili Total (test code = Bili Total) 0.2 0.2-1.3 [facility] [employer] [id number] 16:26:00 Test Item Value Reference Range Interpretation Comments AGAP (test code = AGAP) 9.3 10.0-20.0 [facility] [employer] [id number] 16:26:00 Test Item Value Reference Range Interpretation Comments B/C Ratio (test code = B/C Ratio) 19 1 6-25 [facility] [employer] [id number] 16:26:00 Test Item Value Reference Range Interpretation Comments Globulin (test code = Globulin) 3.8 2.7-4.2 [facility] [employer] [id number] 16:26:00 Test Item Value Reference Range Interpretation Comments A/G Ratio (test code = A/G Ratio) 0.8 1 0.7-1.6 [facility]2020-03-23 16:26:00 Test Item Value Reference Range Interpretation Comments eGFR (test code = eGFR) 79 [facility]2020-03-23 16:26:00 Test Item Value Reference Range Interpretation Comments Lactic Acid Lvl (test code = Lactic 0.8 0.5-2.2 Acid Lvl) [facility]2020-03-23 16:26:00 Test Item Value Reference Range Interpretation Comments LDH (test code = LDH) 211 98-192 [id number] 16:26:00 Test Item Value Reference Range Interpretation Comments WBC (test code = WBC) 12.3 3.7-10.4 [place] [address]-03-23 16:26:00 Test Item Value Reference Range Interpretation Comments RBC (test code = RBC) 3.87 4.20-5.40 [place] [address]-03-23 16:26:00 Test Item Value Reference Range Interpretation Comments Hgb (test code = Hgb) 9.9 12.0-16.0 [place] 316000-03-23 16:26:00 Test Item Value Reference Range Interpretation Comments Hct (test code = Hct) 31.5 36.0-48.0 [place] [address]-03-23 16:26:00 Test Item Value Reference Range Interpretation Comments MCV (test code = MCV) 81.2 80.0-98.0 [place] [address]-03-23 16:26:00 Test Item Value Reference Range Interpretation Comments MCH (test code = MCH) 25.5 pg 27.0-31.0 [place] 316000-03-23 16:26:00 Test Item Value Reference Range Interpretation Comments MCHC (test code = MCHC) 31.4 32.0-36.0 [place] [address]-03-23 16:26:00 Test Item Value Reference Range Interpretation Comments RDW (test code = RDW) 14.7 11.5-14.5 [place] 316000-03-23 16:26:00 Test Item Value Reference Range Interpretation Comments Platelet (test code = Platelet) 316 133-450 [id number] 16:26:00 Test Item Value Reference Range Interpretation Comments MPV (test code = MPV) 8.8 7.4-10.4 [place] 316000-03-23 16:26:00 Test Item Value Reference Range Interpretation Comments PT (test code = PT) 14.0 s 12.0-14.7 [place] 316000-03-23 16:26:00 Test Item Value Reference Range Interpretation Comments INR (test code = INR) 1.08 1 0.85-1.17 [place] [address]-03-23 16:26:00 Test Item Value Reference Range Interpretation Comments PTT (test code = PTT) 26.0 s 22.9-35.8 [place] [address]-03-23 16:26:00 Test Item Value Reference Range Interpretation Comments Segs (test code = Segs) 94.6 45.0-75.0 [place] [address]-03-23 16:26:00 Test Item Value Reference Range Interpretation Comments Lymphocytes (test code = Lymphocytes) 1.5 20.0-40.0 [place] 316000-03-23 16:26:00 Test Item Value Reference Range Interpretation Comments Monocytes (test code = Monocytes) 2.9 2.0-12.0 [id number] 16:26:00 Test Item Value Reference Range Interpretation Comments Eosinophils (test code = 0.6 See_Comment [A utomated message] The Eosinophils) system which ge nerated this result tra nsmitted reference range : <=4.0. The reference r eric was not used to int erpret this result as normal/abnormal . [id number] 16:26:00 Test Item Value Reference Range Interpretation Comments Basophils (test code = 0.4 See_Comment [Aut omated message] The Basophils) system which ge nerated this result tra nsmitted reference range : <=1.0. The reference r eric was not used to int erpret this result as normal/abnormal . [place] 316000-03-23 16:26:00 Test Item Value Reference Range Interpretation Comments Neutrophils # (test code = Neutrophils 11.7 1.5-8.1 #) [facility]iscoHennkefLRNUAZMFSK7531-11-58 16:26:00 Test Item Value Reference Range Interpretation Comments Lymphocytes # (test code = Lymphocytes 0.2 1.0-5.5 #) [id number] 16:26:00 Test Item Value Reference Range Interpretation Comments Monocytes # (test code 0.4 See_Comment [Aut omated message] The = Monocytes #) system which generated this result tra nsmitted reference range : <=0.8. The reference r eric was not used to int erpret this result as normal/abnormal . [id number] 16:26:00 Test Item Value Reference Range Interpretation Comments Eosinophils # (test code 0.1 See_Comment [A utomated message] The = Eosinophils #) system whic h generated this result tra nsmitted reference range : <=0.5. The reference r eric was not used to int erpret this result as normal/abnormal . [id number] 16:26:00 Test Item Value Reference Range Interpretation Comments C-REACTIVE PROTEIN (test code = 15.4 C-REACTIVE PROTEIN) [facility] AND [id number] 16:26:00 Test Item Value Reference Range Interpretation Comments UA Turbidity (test code = Clear (12/05/19 11:26 UA Turbidity) AM) [facility] AND [id number] 16:26:00 Test Item Value Reference Range Interpretation Comments UA Spec Grav (test code = UA Spec 1.010 1 Grav) [facility] AND [id number] 16:26:00 Test Item Value Reference Range Interpretation Comments UA pH (test code = UA pH) 7.0 1 5.0-8.0 [facility] AND [id number] 16:26:00 Test Item Value Reference Range Interpretation Comments UA Protein (test code = UA Negative mg/dL Protein) [facility] AND [id number] 16:26:00 Test Item Value Reference Range Interpretation Comments UA Glucose (test code = UA Negative mg/dL Glucose) [facility] AND [id number] 16:26:00 Test Item Value Reference Range Interpretation Comments UA Ketones (test code = UA Negative mg/dL Ketones) [facility] AND [id number] 16:26:00 Test Item Value Reference Range Interpretation Comments UA Bili (test code = Negative *NA*(12/05/19 UA Bili) 11:26 AM) [facility] [employer] [id number] 16:26:00 Test Item Value Reference Range Interpretation Comments UA Blood (test code = Negative (12/05/19 11:26 UA Blood) AM) [facility] [id number] 16:26:00 Test Item Value Reference Range Interpretation Comments UA Nitrite (test code Negative (12/05/19 11:26 = UA Nitrite) AM) [facility] [id number] 16:26:00 Test Item Value Reference Range Interpretation Comments UA Leuk Est (test Negative (12/05/19 11:26 code = UA Leuk Est) AM) [facility] [id number] 16:26:00 Test Item Value Reference Range Interpretation Comments UA Sq Epi (test code = UA Sq Occasional /LPF Epi) [facility] [id number] 16:26:00 Test Item Value Reference Range Interpretation Comments UA WBC (test code = no gt See_Comment [Automa thelma message] The UA WBC) system which ge nerated this result transmit thelma reference range : <=5. The reference range was not used to interpr et this result as zana l/abnormal. [facility] [id number] 16:26:00 Test Item Value Reference Range Interpretation Comments UA RBC (test code = no gt See_Comment [Automa thelma message] The UA RBC) system which ge nerated this result transmit thelma reference range : <=2. The reference range was not used to interpr et this result as zana l/abnormal. [facility] [id number] 16:26:00 Test Item Value Reference Range Interpretation Comments UA Mucus (test code = UA Mucus) Few /LPF [facility] [id number] 16:26:00 Test Item Value Reference Range Interpretation Comments UA Color (test code = UA Color) YELLOW [facility] [id number] 16:26:00 Test Item Value Reference Range Interpretation Comments UA Urobilinogen (test code = UA <=1.0 mg/dL 0.1-1.0 Urobilinogen) [facility]annANEMIA [id number] 16:26:00 Test Item Value Reference Range Interpretation Comments Ferritin Lvl (test code = Ferritin Lvl) 19 [facility] [employer] [id number] 16:26:00 Test Item Value Reference Range Interpretation Comments Total CK (test code = Total CK) 24 12-191 [facility] [employer] [id number] 16:26:00 Test Item Value Reference Range Interpretation Comments Troponin-I (test code no gt See_Comment [Auto mated message] The = Troponin-I) system which g enerated this result transmit thelma reference range : <=0.40. The reference r eric was not used to interpr et this result as zana l/abnormal. [facility] [employer] [id number] 16:26:00 Test Item Value Reference Range Interpretation Comments Procalcitonin Lvl (test 1.36 See_Comment [Au tomated message] code = Procalcitonin Lvl) Th e system which generated this result transmitted ref erence range: <=0.10. The reference range was not used to interpr et this result as normal/abnormal . [facility] [employer] [id number] 16:26:00 Test Item Value Reference Range Interpretation Comments Glucose Lvl (test code = Glucose Lvl) 164 70-99 [facility] [employer]2020-03-23 16:26:00 Test Item Value Reference Range Interpretation Comments BUN (test code = BUN) 14 7-22 [facility] [employer]2020-03-23 16:26:00 Test Item Value Reference Range Interpretation Comments Creatinine Lvl (test code = Creatinine 0.75 0.50-1.40 Lvl) [facility] [employer]2020-03-23 16:26:00 Test Item Value Reference Range Interpretation Comments Sodium Lvl (test code = Sodium Lvl) 134 135-145 [facility] [employer]2020-03-23 16:26:00 Test Item Value Reference Range Interpretation Comments Potassium Lvl (test code = Potassium 4.3 3.5-5.1 Lvl) [facility] [employer]2020-03-23 16:26:00 Test Item Value Reference Range Interpretation Comments Chloride Lvl (test code = Chloride Lvl) 104 95-109 [facility] [employer]2020-03-23 16:26:00 Test Item Value Reference Range Interpretation Comments CO2 (test code = CO2) 25 24-32 [facility] [employer]2020-03-23 16:26:00 Test Item Value Reference Range Interpretation Comments Calcium Lvl (test code = Calcium Lvl) 9.1 8.5-10.5 [facility] [employer] [id number] 16:26:00 Test Item Value Reference Range Interpretation Comments Total Protein (test code = Total 6.8 6.4-8.4 Protein) [facility] [employer] [id number] 16:26:00 Test Item Value Reference Range Interpretation Comments Albumin Lvl (test code = Albumin Lvl) 3.0 3.5-5.0 [facility] [employer] [id number] 16:26:00 Test Item Value Reference Range Interpretation Comments ALT (test code = ALT) 15 See_Comment [Auto mated message] The system which ge nerated this result transmit thelma reference range : <=65. The reference range was not used to interpr et this result as zana l/abnormal. [facility] [employer] [id number] 16:26:00 Test Item Value Reference Range Interpretation Comments AST (test code = AST) 11 See_Comment [Auto mated message] The system which ge nerated this result transmit thelma reference range : <=37. The reference range was not used to interpr et this result as zana l/abnormal. [facility] [employer] [id number] 16:26:00 Test Item Value Reference Range Interpretation Comments Alk Phos (test code = Alk Phos) 58 39-136 [facility] [employer] [id number] 16:26:00 Test Item Value Reference Range Interpretation Comments Bili Total (test code = Bili Total) 0.2 0.2-1.3 [facility] [employer] [id number] 16:26:00 Test Item Value Reference Range Interpretation Comments AGAP (test code = AGAP) 9.3 10.0-20.0 [facility] [employer]2020-03-23 16:26:00 Test Item Value Reference Range Interpretation Comments B/C Ratio (test code = B/C Ratio) 19 1 6-25 [facility] [employer] [id number] 16:26:00 Test Item Value Reference Range Interpretation Comments Globulin (test code = Globulin) 3.8 2.7-4.2 [facility] [employer]2020-03-23 16:26:00 Test Item Value Reference Range Interpretation Comments A/G Ratio (test code = A/G Ratio) 0.8 1 0.7-1.6 [facility]2020-03-23 16:26:00 Test Item Value Reference Range Interpretation Comments eGFR (test code = eGFR) 79 [facility]2020-03-23 16:26:00 Test Item Value Reference Range Interpretation Comments Lactic Acid Lvl (test code = Lactic 0.8 0.5-2.2 Acid Lvl) [facility]2020-03-23 16:26:00 Test Item Value Reference Range Interpretation Comments LDH (test code = LDH) 211 98-192 [id number] 16:26:00 Test Item Value Reference Range Interpretation Comments WBC (test code = WBC) 12.3 3.7-10.4 [facility]is[id number] 16:26:00 Test Item Value Reference Range Interpretation Comments RBC (test code = RBC) 3.87 4.20-5.40 [id number] 16:26:00 Test Item Value Reference Range Interpretation Comments Hgb (test code = Hgb) 9.9 12.0-16.0 [id number] 16:26:00 Test Item Value Reference Range Interpretation Comments Hct (test code = Hct) 31.5 36.0-48.0 [id number] 16:26:00 Test Item Value Reference Range Interpretation Comments MCV (test code = MCV) 81.2 80.0-98.0 [id number] 16:26:00 Test Item Value Reference Range Interpretation Comments MCH (test code = MCH) 25.5 pg 27.0-31.0 [facility] Hos[id number] 16:26:00 Test Item Value Reference Range Interpretation Comments MCHC (test code = MCHC) 31.4 32.0-36.0 [place] 316000-03-23 16:26:00 Test Item Value Reference Range Interpretation Comments RDW (test code = RDW) 14.7 11.5-14.5 [id number] 16:26:00 Test Item Value Reference Range Interpretation Comments Platelet (test code = Platelet) 316 133-450 [place] [address]-03-23 16:26:00 Test Item Value Reference Range Interpretation Comments MPV (test code = MPV) 8.8 7.4-10.4 [place] [address]-03-23 16:26:00 Test Item Value Reference Range Interpretation Comments PT (test code = PT) 14.0 s 12.0-14.7 [place] [address]-03-23 16:26:00 Test Item Value Reference Range Interpretation Comments INR (test code = INR) 1.08 1 0.85-1.17 [place] [address]-03-23 16:26:00 Test Item Value Reference Range Interpretation Comments PTT (test code = PTT) 26.0 s 22.9-35.8 [place] [address]-03-23 16:26:00 Test Item Value Reference Range Interpretation Comments Segs (test code = Segs) 94.6 45.0-75.0 [place] [address]-03-23 16:26:00 Test Item Value Reference Range Interpretation Comments Lymphocytes (test code = Lymphocytes) 1.5 20.0-40.0 [place] [address]-03-23 16:26:00 Test Item Value Reference Range Interpretation Comments Monocytes (test code = Monocytes) 2.9 2.0-12.0 [place] [address]-03-23 16:26:00 Test Item Value Reference Range Interpretation Comments Eosinophils (test code = 0.6 See_Comment [A utomated message] The Eosinophils) system which ge nerated this result tra nsmitted reference range : <=4.0. The reference r eric was not used to int erpret this result as normal/abnormal . [place] [address]-03-23 16:26:00 Test Item Value Reference Range Interpretation Comments Basophils (test code = 0.4 See_Comment [Aut omated message] The Basophils) system which ge nerated this result tra nsmitted reference range : <=1.0. The reference r eric was not used to int erpret this result as normal/abnormal . [place] [address]-03-23 16:26:00 Test Item Value Reference Range Interpretation Comments Neutrophils # (test code = Neutrophils 11.7 1.5-8.1 #) [place] [address]-03-23 16:26:00 Test Item Value Reference Range Interpretation Comments Lymphocytes # (test code = Lymphocytes 0.2 1.0-5.5 #) [id number] 16:26:00 Test Item Value Reference Range Interpretation Comments Monocytes # (test code 0.4 See_Comment [Aut omated message] The = Monocytes #) system which generated this result tra nsmitted reference range : <=0.8. The reference r eric was not used to int erpret this result as normal/abnormal . [facility] CenterKklmrowLJBILJMCLZ4533-44-17 16:26:00 Test Item Value Reference Range Interpretation Comments Eosinophils # (test code 0.1 See_Comment [A utomated message] The = Eosinophils #) system whic h generated this result tra nsmitted reference range : <=0.5. The reference r eric was not used to int erpret this result as normal/abnormal . [facility] CenterImpcytjXTCDLKWEDJ5737-22-85 16:26:00 Test Item Value Reference Range Interpretation Comments C-REACTIVE PROTEIN (test code = 15.4 C-REACTIVE PROTEIN) [facility] AND [id number] 16:26:00 Test Item Value Reference Range Interpretation Comments UA Turbidity (test code = Clear (12/05/19 11:26 UA Turbidity) AM) [facility] AND [id number] 16:26:00 Test Item Value Reference Range Interpretation Comments UA Spec Grav (test code = UA Spec 1.010 1 Grav) [facility] AND [id number] 16:26:00 Test Item Value Reference Range Interpretation Comments UA pH (test code = UA pH) 7.0 1 5.0-8.0 [facility] AND [id number] 16:26:00 Test Item Value Reference Range Interpretation Comments UA Protein (test code = UA Negative mg/dL Protein) [facility] AND [id number] 16:26:00 Test Item Value Reference Range Interpretation Comments UA Glucose (test code = UA Negative mg/dL Glucose) [facility] AND [id number] 16:26:00 Test Item Value Reference Range Interpretation Comments UA Ketones (test code = UA Negative mg/dL Ketones) [facility] AND [id number] 16:26:00 Test Item Value Reference Range Interpretation Comments UA Bili (test code = Negative *NA*(12/05/19 UA Bili) 11:26 AM) [facility] [id number] 16:26:00 Test Item Value Reference Range Interpretation Comments UA Blood (test code = Negative (12/05/19 11:26 UA Blood) AM) [facility] [id number] 16:26:00 Test Item Value Reference Range Interpretation Comments UA Nitrite (test code Negative (12/05/19 11:26 = UA Nitrite) AM) [facility] [id number] 16:26:00 Test Item Value Reference Range Interpretation Comments UA Leuk Est (test Negative (12/05/19 11:26 code = UA Leuk Est) AM) [facility] [id number] 16:26:00 Test Item Value Reference Range Interpretation Comments UA Sq Epi (test code = UA Sq Occasional /LPF Epi) [facility] [id number] 16:26:00 Test Item Value Reference Range Interpretation Comments UA WBC (test code = no gt See_Comment [Automa thelma message] The UA WBC) system which ge nerated this result transmit thelma reference range : <=5. The reference range was not used to interpr et this result as zana l/abnormal. [facility] [id number] 16:26:00 Test Item Value Reference Range Interpretation Comments UA RBC (test code = no gt See_Comment [Automa thelma message] The UA RBC) system which ge nerated this result transmit thelma reference range : <=2. The reference range was not used to interpr et this result as zana l/abnormal. [facility] [id number] 16:26:00 Test Item Value Reference Range Interpretation Comments UA Mucus (test code = UA Mucus) Few /LPF [facility] [id number] 16:26:00 Test Item Value Reference Range Interpretation Comments UA Color (test code = UA Color) YELLOW [facility] [id number] 16:26:00 Test Item Value Reference Range Interpretation Comments UA Urobilinogen (test code = UA <=1.0 mg/dL 0.1-1.0 Urobilinogen) [facility] [id number] 00:35:00 Test Item Value Reference Range Interpretation Comments Total CK (test code = Total CK) 62 12-191 [facility] [employer]AC [id number] 00:35:00 Test Item Value Reference Range Interpretation Comments Troponin-I (test code no gt See_Comment [Auto mated message] The = Troponin-I) system which g enerated this result transmit thelma reference range : <=0.40. The reference r eric was not used to interpr et this result as zana l/abnormal. [facility] [employer] [id number] 00:35:00 Test Item Value Reference Range Interpretation Comments BNP (test code = BNP) 25 [facility] [employer] [id number] 00:35:00 Test Item Value Reference Range Interpretation Comments Glucose Lvl (test code = Glucose Lvl) 179 70-99 [facility] [employer] [id number] 00:35:00 Test Item Value Reference Range Interpretation Comments BUN (test code = BUN) 32 7-22 [facility] [employer] [id number] 00:35:00 Test Item Value Reference Range Interpretation Comments Creatinine Lvl (test code = Creatinine 1.26 0.50-1.40 Lvl) [facility] [employer] [id number] 00:35:00 Test Item Value Reference Range Interpretation Comments Sodium Lvl (test code = Sodium Lvl) 139 135-145 [facility] [employer] [id number] 00:35:00 Test Item Value Reference Range Interpretation Comments Potassium Lvl (test code = Potassium 4.1 3.5-5.1 Lvl) [facility] [employer] [id number] 00:35:00 Test Item Value Reference Range Interpretation Comments Chloride Lvl (test code = Chloride Lvl) 110 95-109 [facility] [employer] [id number] 00:35:00 Test Item Value Reference Range Interpretation Comments CO2 (test code = CO2) 22 24-32 [facility] [employer] [id number] 00:35:00 Test Item Value Reference Range Interpretation Comments Calcium Lvl (test code = Calcium Lvl) 9.3 8.5-10.5 [facility] [employer] [id number] 00:35:00 Test Item Value Reference Range Interpretation Comments Total Protein (test code = Total 7.2 6.4-8.4 Protein) [facility] [employer] [id number] 00:35:00 Test Item Value Reference Range Interpretation Comments Albumin Lvl (test code = Albumin Lvl) 3.4 3.5-5.0 [facility] [id number] 00:35:00 Test Item Value Reference Range Interpretation Comments ALT (test code = ALT) 16 See_Comment [Auto mated message] The system which ge nerated this result transmit thelma reference range : <=65. The reference range was not used to interpr et this result as zana l/abnormal. [facility] [employer] [id number] 00:35:00 Test Item Value Reference Range Interpretation Comments AST (test code = AST) 9 See_Comment [Auto mated message] The system which ge nerated this result transmit thelma reference range : <=37. The reference range was not used to interpr et this result as zana l/abnormal. [facility] [employer] [id number] 00:35:00 Test Item Value Reference Range Interpretation Comments Alk Phos (test code = Alk Phos) 69 39-136 [facility] [employer] [id number] 00:35:00 Test Item Value Reference Range Interpretation Comments Bili Total (test code = Bili Total) 0.2 0.2-1.3 [facility] [employer] [id number] 00:35:00 Test Item Value Reference Range Interpretation Comments AGAP (test code = AGAP) 11.1 10.0-20.0 [facility] [employer] [id number] 00:35:00 Test Item Value Reference Range Interpretation Comments B/C Ratio (test code = B/C Ratio) 25 1 6-25 [facility] [employer] [id number] 00:35:00 Test Item Value Reference Range Interpretation Comments Globulin (test code = Globulin) 3.8 2.7-4.2 [facility] [employer] [id number] 00:35:00 Test Item Value Reference Range Interpretation Comments A/G Ratio (test code = A/G Ratio) 0.9 1 0.7-1.6 [facility] [employer] [id number] 00:35:00 Test Item Value Reference Range Interpretation Comments eGFR (test code = eGFR) 42 [id number] 00:35:00 Test Item Value Reference Range Interpretation Comments Segs (test code = Segs) 52.3 45.0-75.0 [place] 316000-03-07 00:35:00 Test Item Value Reference Range Interpretation Comments Lymphocytes (test code = Lymphocytes) 24.7 20.0-40.0 [place] 316000-03-07 00:35:00 Test Item Value Reference Range Interpretation Comments Monocytes (test code = Monocytes) 8.2 2.0-12.0 [place] [address]-03-07 00:35:00 Test Item Value Reference Range Interpretation Comments Eosinophils (test code = 14.0 See_Comment [A utomated message] The Eosinophils) system which ge nerated this result tra nsmitted reference range : <=4.0. The reference r eric was not used to int erpret this result as normal/abnormal . [place] 316000-03-07 00:35:00 Test Item Value Reference Range Interpretation Comments Basophils (test code = 0.8 See_Comment [Aut omated message] The Basophils) system which ge nerated this result tra nsmitted reference range : <=1.0. The reference r eric was not used to int erpret this result as normal/abnormal . [facility]ECVH[facility]75[facility] 00:35:00 Test Item Value Reference Range Interpretation Comments Neutrophils # (test code = Neutrophils 3.4 1.5-8.1 #) [place] 316000-03-07 00:35:00 Test Item Value Reference Range Interpretation Comments Lymphocytes # (test code = Lymphocytes 1.6 1.0-5.5 #) [place] [address]-03-07 00:35:00 Test Item Value Reference Range Interpretation Comments Monocytes # (test code 0.5 See_Comment [Aut omated message] The = Monocytes #) system which generated this result tra nsmitted reference range : <=0.8. The reference r eric was not used to int erpret this result as normal/abnormal . [place] [address]-03-07 00:35:00 Test Item Value Reference Range Interpretation Comments Eosinophils # (test code 0.9 See_Comment [A utomated message] The = Eosinophils #) system ic h generated this result tra nsmitted reference range : <=0.5. The reference r eric was not used to int erpret this result as normal/abnormal . [id number] 00:35:00 Test Item Value Reference Range Interpretation Comments Basophils # (test code 0.1 See_Comment [Aut omated message] The = Basophils #) system which generated this result tra nsmitted reference range : <=0.2. The reference r eric was not used to int erpret this result as normal/abnormal . [facility]iscoSmhghwcRBLXRDNUZG0790-03-57 00:35:00 Test Item Value Reference Range Interpretation Comments WBC (test code = WBC) 6.4 3.7-10.4 [id number] 00:35:00 Test Item Value Reference Range Interpretation Comments RBC (test code = RBC) 4.04 4.20-5.40 [facility]iscoKxqakfnGCISWNWOPJ6090-70-91 00:35:00 Test Item Value Reference Range Interpretation Comments Hgb (test code = Hgb) 10.4 12.0-16.0 [facility]iscoSooyyrcTPAHMJMWAG3247-03-74 00:35:00 Test Item Value Reference Range Interpretation Comments Hct (test code = Hct) 33.5 36.0-48.0 [facility]iscoFdlfjmcGEAYLYKZDN8179-45-41 00:35:00 Test Item Value Reference Range Interpretation Comments MCV (test code = MCV) 82.9 80.0-98.0 [facility]iscoTmrwsmeEMYZJLGPWM3328-52-77 00:35:00 Test Item Value Reference Range Interpretation Comments MCH (test code = MCH) 25.9 pg 27.0-31.0 [facility]iscoScauqgcMLZOJZCAPY0980-95-21 00:35:00 Test Item Value Reference Range Interpretation Comments MCHC (test code = MCHC) 31.2 32.0-36.0 [facility]iscoJsrbphxBUBXJCVEBU5986-60-55 00:35:00 Test Item Value Reference Range Interpretation Comments RDW (test code = RDW) 14.9 11.5-14.5 [facility]iscoPmyxrutVNALSDWQQR9138-75-87 00:35:00 Test Item Value Reference Range Interpretation Comments Platelet (test code = Platelet) 282 133-450 [facility]iscoYrtdxuoWUMNIKGCVF1635-71-44 00:35:00 Test Item Value Reference Range Interpretation Comments MPV (test code = MPV) 8.8 7.4-10.4 [facility]iscoDjcrgnjNEXCQSEMJL5572-98-69 00:35:00 Test Item Value Reference Range Interpretation Comments PT (test code = PT) 13.5 s 12.0-14.7 [facility] CenterNgqgwjaXHFMYKRGOB3315-36-04 00:35:00 Test Item Value Reference Range Interpretation Comments INR (test code = INR) 1.03 1 0.85-1.17 [facility]ap[facility]ddfXAXPACFCDM1780-66-34 00:35:00 Test Item Value Reference Range Interpretation Comments PTT (test code = PTT) 27.4 s 22.9-35.8 [facility] CenterWysiwygAC [id number] 00:35:00 Test Item Value Reference Range Interpretation Comments Total CK (test code = Total CK) 62 12-191 [facility] CenterW[facility]yg [id number] 00:35:00 Test Item Value Reference Range Interpretation Comments Troponin-I (test code no gt See_Comment [Auto mated message] The = Troponin-I) system which g enerated this result transmit thelma reference range : <=0.40. The reference r eric was not used to interpr et this result as zana l/abnormal. [facility] CenterComfywareYDFNYCL2703-88-06 00:35:00 Test Item Value Reference Range Interpretation Comments BNP (test code = BNP) 25 [facility] [id number] 00:35:00 Test Item Value Reference Range Interpretation Comments Glucose Lvl (test code = Glucose Lvl) 179 70-99 [facility] [id number] 00:35:00 Test Item Value Reference Range Interpretation Comments BUN (test code = BUN) 32 7-22 [facility] [id number] 00:35:00 Test Item Value Reference Range Interpretation Comments Creatinine Lvl (test code = Creatinine 1.26 0.50-1.40 Lvl) [facility] [id number] 00:35:00 Test Item Value Reference Range Interpretation Comments Sodium Lvl (test code = Sodium Lvl) 139 135-145 [facility] [id number] 00:35:00 Test Item Value Reference Range Interpretation Comments Potassium Lvl (test code = Potassium 4.1 3.5-5.1 Lvl) [facility] [id number] 00:35:00 Test Item Value Reference Range Interpretation Comments Chloride Lvl (test code = Chloride Lvl) 110 95-109 [facility] [employer] [id number] 00:35:00 Test Item Value Reference Range Interpretation Comments CO2 (test code = CO2) 22 24-32 [facility] [employer] [id number] 00:35:00 Test Item Value Reference Range Interpretation Comments Calcium Lvl (test code = Calcium Lvl) 9.3 8.5-10.5 [facility] [employer] [id number] 00:35:00 Test Item Value Reference Range Interpretation Comments Total Protein (test code = Total 7.2 6.4-8.4 Protein) [facility] [employer] [id number] 00:35:00 Test Item Value Reference Range Interpretation Comments Albumin Lvl (test code = Albumin Lvl) 3.4 3.5-5.0 [facility] [employer] [id number] 00:35:00 Test Item Value Reference Range Interpretation Comments ALT (test code = ALT) 16 See_Comment [Auto mated message] The system which ge nerated this result transmit thelma reference range : <=65. The reference range was not used to interpr et this result as zana l/abnormal. [facility] [employer] [id number] 00:35:00 Test Item Value Reference Range Interpretation Comments AST (test code = AST) 9 See_Comment [Auto mated message] The system which ge nerated this result transmit thelma reference range : <=37. The reference range was not used to interpr et this result as zana l/abnormal. [facility] [employer] [id number] 00:35:00 Test Item Value Reference Range Interpretation Comments Alk Phos (test code = Alk Phos) 69 39-136 [facility] [employer] [id number] 00:35:00 Test Item Value Reference Range Interpretation Comments Bili Total (test code = Bili Total) 0.2 0.2-1.3 [facility] [employer] [id number] 00:35:00 Test Item Value Reference Range Interpretation Comments AGAP (test code = AGAP) 11.1 10.0-20.0 [facility] [employer] [id number] 00:35:00 Test Item Value Reference Range Interpretation Comments B/C Ratio (test code = B/C Ratio) 25 1 6-25 [facility] [employer] [id number] 00:35:00 Test Item Value Reference Range Interpretation Comments Globulin (test code = Globulin) 3.8 2.7-4.2 [facility] [id number] 00:35:00 Test Item Value Reference Range Interpretation Comments A/G Ratio (test code = A/G Ratio) 0.9 1 0.7-1.6 [facility] [id number] 00:35:00 Test Item Value Reference Range Interpretation Comments eGFR (test code = eGFR) 42 [facility]OdnkmuoQFOXYIWKGR0513-93-05 00:35:00 Test Item Value Reference Range Interpretation Comments Segs (test code = Segs) 52.3 45.0-75.0 [place] 316000-03-07 00:35:00 Test Item Value Reference Range Interpretation Comments Lymphocytes (test code = Lymphocytes) 24.7 20.0-40.0 [place] 316000-03-07 00:35:00 Test Item Value Reference Range Interpretation Comments Monocytes (test code = Monocytes) 8.2 2.0-12.0 [place] 316000-03-07 00:35:00 Test Item Value Reference Range Interpretation Comments Eosinophils (test code = 14.0 See_Comment [A utomated message] The Eosinophils) system which ge nerated this result tra nsmitted reference range : <=4.0. The reference r eric was not used to int erpret this result as normal/abnormal . [place] 316000-03-07 00:35:00 Test Item Value Reference Range Interpretation Comments Basophils (test code = 0.8 See_Comment [Aut omated message] The Basophils) system which ge nerated this result tra nsmitted reference range : <=1.0. The reference r eric was not used to int erpret this result as normal/abnormal . [place] 316000-03-07 00:35:00 Test Item Value Reference Range Interpretation Comments Neutrophils # (test code = Neutrophils 3.4 1.5-8.1 #) [id number] 00:35:00 Test Item Value Reference Range Interpretation Comments Lymphocytes # (test code = Lymphocytes 1.6 1.0-5.5 #) [place] 316000-03-07 00:35:00 Test Item Value Reference Range Interpretation Comments Monocytes # (test code 0.5 See_Comment [Aut omated message] The = Monocytes #) system which generated this result tra nsmitted reference range : <=0.8. The reference r eric was not used to int erpret this result as normal/abnormal . [facility]iscoInezenjTOBNLWLGGZ6301-06-43 00:35:00 Test Item Value Reference Range Interpretation Comments Eosinophils # (test code 0.9 See_Comment [A utomated message] The = Eosinophils #) system whic h generated this result tra nsmitted reference range : <=0.5. The reference r eric was not used to int erpret this result as normal/abnormal . [facility]iscoOkqltqsWOFCDPLBEB5733-40-93 00:35:00 Test Item Value Reference Range Interpretation Comments Basophils # (test code 0.1 See_Comment [Aut omated message] The = Basophils #) system which generated this result tra nsmitted reference range : <=0.2. The reference r eric was not used to int erpret this result as normal/abnormal . [facility]iscoOsanxnyPGGXRJMVCR2577-20-22 00:35:00 Test Item Value Reference Range Interpretation Comments WBC (test code = WBC) 6.4 3.7-10.4 [facility]iscoIfvxxdkSKPFSJMJJZ9952-99-93 00:35:00 Test Item Value Reference Range Interpretation Comments RBC (test code = RBC) 4.04 4.20-5.40 [facility]iscoNoswzzlZYSFQYBUZD5592-30-31 00:35:00 Test Item Value Reference Range Interpretation Comments Hgb (test code = Hgb) 10.4 12.0-16.0 [facility]iscoSdnjyinXGFASAMDZX0949-97-87 00:35:00 Test Item Value Reference Range Interpretation Comments Hct (test code = Hct) 33.5 36.0-48.0 [place] 316000-03-07 00:35:00 Test Item Value Reference Range Interpretation Comments MCV (test code = MCV) 82.9 80.0-98.0 [place] 316000-03-07 00:35:00 Test Item Value Reference Range Interpretation Comments MCH (test code = MCH) 25.9 pg 27.0-31.0 [place] 316000-03-07 00:35:00 Test Item Value Reference Range Interpretation Comments MCHC (test code = MCHC) 31.2 32.0-36.0 [facility] HospitalZpsglntEPWRLNAUGW4064-90-82 00:35:00 Test Item Value Reference Range Interpretation Comments RDW (test code = RDW) 14.9 11.5-14.5 [facility] HospitalXsmmigbEOYJGVOMMR5526-43-31 00:35:00 Test Item Value Reference Range Interpretation Comments Platelet (test code = Platelet) 282 133-450 [facility] HospitalVjknvnoJZKHEHNRTM2611-30-56 00:35:00 Test Item Value Reference Range Interpretation Comments MPV (test code = MPV) 8.8 7.4-10.4 [facility] HospitalUjqxlofVOMMFRLZJD9888-75-93 00:35:00 Test Item Value Reference Range Interpretation Comments PT (test code = PT) 13.5 s 12.0-14.7 [facility] HospitalFjtjugqROUXPNWBXY0378-98-79 00:35:00 Test Item Value Reference Range Interpretation Comments INR (test code = INR) 1.03 1 0.85-1.17 [facility] HospitalYzbchdqOPUGCMSPDB0011-35-16 00:35:00 Test Item Value Reference Range Interpretation Comments PTT (test code = PTT) 27.4 s 22.9-35.8 [facility] HospitalGreencartAC [id number] 00:35:00 Test Item Value Reference Range Interpretation Comments Total CK (test code = Total CK) 62 12-191 [facility] HospitalGoodAppetito [id number] 00:35:00 Test Item Value Reference Range Interpretation Comments Troponin-I (test code no gt See_Comment [Auto mated message] The = Troponin-I) system which g enerated this result transmit thelma reference range : <=0.40. The reference r eric was not used to interpr et this result as zana l/abnormal. [facility] Canva2020-03-07 00:35:00 Test Item Value Reference Range Interpretation Comments BNP (test code = BNP) 25 [facility] [employer] [id number] 00:35:00 Test Item Value Reference Range Interpretation Comments Glucose Lvl (test code = Glucose Lvl) 179 70-99 [facility] [employer] [id number] 00:35:00 Test Item Value Reference Range Interpretation Comments BUN (test code = BUN) 32 7-22 [facility] [employer] [id number] 00:35:00 Test Item Value Reference Range Interpretation Comments Creatinine Lvl (test code = Creatinine 1.26 0.50-1.40 Lvl) [facility] HospitalProject ManagerERIN VILLE [id number] 00:35:00 Test Item Value Reference Range Interpretation Comments Sodium Lvl (test code = Sodium Lvl) 139 135-145 [place] 078530-03-07 00:35:00 Test Item Value Reference Range Interpretation Comments Potassium Lvl (test code = Potassium 4.1 3.5-5.1 Lvl) [place] 078530-03-07 00:35:00 Test Item Value Reference Range Interpretation Comments Chloride Lvl (test code = Chloride Lvl) 110 95-109 [facility] [id number] 00:35:00 Test Item Value Reference Range Interpretation Comments CO2 (test code = CO2) 22 24-32 [facility] [id number] 00:35:00 Test Item Value Reference Range Interpretation Comments Calcium Lvl (test code = Calcium Lvl) 9.3 8.5-10.5 [facility] [id number] 00:35:00 Test Item Value Reference Range Interpretation Comments Total Protein (test code = Total 7.2 6.4-8.4 Protein) [facility] HospitalProject ManagerERIN VILLE [id number] 00:35:00 Test Item Value Reference Range Interpretation Comments Albumin Lvl (test code = Albumin Lvl) 3.4 3.5-5.0 [facility] [id number] 00:35:00 Test Item Value Reference Range Interpretation Comments ALT (test code = ALT) 16 See_Comment [Auto mated message] The system which [employer] nerated this result transmit thelma reference range : <=65. The reference range was not used to interpr et this result as zana l/abnormal. [facility] [id number] 00:35:00 Test Item Value Reference Range Interpretation Comments AST (test code = AST) 9 See_Comment [Auto mated message] The system which [employer] nerated this result transmit thelma reference range : <=37. The reference range was not used to interpr et this result as zana l/abnormal. [facility] [id number] 00:35:00 Test Item Value Reference Range Interpretation Comments Alk Phos (test code = Alk Phos) 69 39-136 [facility] HospitalAndrew [facility]ille 171160-03-07 00:35:00 Test Item Value Reference Range Interpretation Comments Bili Total (test code = Bili Total) 0.2 0.2-1.3 [place] 078530-03-07 00:35:00 Test Item Value Reference Range Interpretation Comments AGAP (test code = AGAP) 11.1 10.0-20.0 [place] 078530-03-07 00:35:00 Test Item Value Reference Range Interpretation Comments B/C Ratio (test code = B/C Ratio) 25 1 6-25 [place] [address]-03-07 00:35:00 Test Item Value Reference Range Interpretation Comments Globulin (test code = Globulin) 3.8 2.7-4.2 [place] [address]-03-07 00:35:00 Test Item Value Reference Range Interpretation Comments A/G Ratio (test code = A/G Ratio) 0.9 1 0.7-1.6 [place] [address]-03-07 00:35:00 Test Item Value Reference Range Interpretation Comments eGFR (test code = eGFR) 42 [place] 316000-03-07 00:35:00 Test Item Value Reference Range Interpretation Comments Segs (test code = Segs) 52.3 45.0-75.0 [place] [address]-03-07 00:35:00 Test Item Value Reference Range Interpretation Comments Lymphocytes (test code = Lymphocytes) 24.7 20.0-40.0 [place] [address]-03-07 00:35:00 Test Item Value Reference Range Interpretation Comments Monocytes (test code = Monocytes) 8.2 2.0-12.0 [place] [address]-03-07 00:35:00 Test Item Value Reference Range Interpretation Comments Eosinophils (test code = 14.0 See_Comment [A utomated message] The Eosinophils) system which ge nerated this result tra nsmitted reference range : <=4.0. The reference r eric was not used to int erpret this result as normal/abnormal . [place] [address]-03-07 00:35:00 Test Item Value Reference Range Interpretation Comments Basophils (test code = 0.8 See_Comment [Aut omated message] The Basophils) system which ge nerated this result tra nsmitted reference range : <=1.0. The reference r eric was not used to int erpret this result as normal/abnormal . [facility]12[facility]:00 Test Item Value Reference Range Interpretation Comments Neutrophils # (test code = Neutrophils 3.4 1.5-8.1 #) [facility]XozvhuzHPPDPYBTGN6732-76-10 00:35:00 Test Item Value Reference Range Interpretation Comments Lymphocytes # (test code = Lymphocytes 1.6 1.0-5.5 #) [facility]IrdgaxrUXSWJIZTXQ5423-59-68 00:35:00 Test Item Value Reference Range Interpretation Comments Monocytes # (test code 0.5 See_Comment [Aut omated message] The = Monocytes #) system which generated this result tra nsmitted reference range : <=0.8. The reference r eric was not used to int erpret this result as normal/abnormal . [place] 316000-03-07 00:35:00 Test Item Value Reference Range Interpretation Comments Eosinophils # (test code 0.9 See_Comment [A utomated message] The = Eosinophils #) system whic h generated this result tra nsmitted reference range : <=0.5. The reference r eric was not used to int erpret this result as normal/abnormal . [facility]AnztjstPTOHMVLKHA5181-36-93 00:35:00 Test Item Value Reference Range Interpretation Comments Basophils # (test code 0.1 See_Comment [Aut omated message] The = Basophils #) system which generated this result tra nsmitted reference range : <=0.2. The reference r eric was not used to int erpret this result as normal/abnormal . [facility]iscoJuesnjrBVVHYSFYEY0689-65-48 00:35:00 Test Item Value Reference Range Interpretation Comments WBC (test code = WBC) 6.4 3.7-10.4 [place] 316000-03-07 00:35:00 Test Item Value Reference Range Interpretation Comments RBC (test code = RBC) 4.04 4.20-5.40 [facility]iscoZskylvmOJIGFHGLLQ9304-52-00 00:35:00 Test Item Value Reference Range Interpretation Comments Hgb (test code = Hgb) 10.4 12.0-16.0 [place] 316000-03-07 00:35:00 Test Item Value Reference Range Interpretation Comments Hct (test code = Hct) 33.5 36.0-48.0 [facility]ZjzxdgfFAGVNXAZMD5947-64-70 00:35:00 Test Item Value Reference Range Interpretation Comments MCV (test code = MCV) 82.9 80.0-98.0 [facility]VuaiwzeRKAARKAEKW0205-76-70 00:35:00 Test Item Value Reference Range Interpretation Comments MCH (test code = MCH) 25.9 pg 27.0-31.0 [facility]iscoAaporhmEHOFEUMDUI3607-84-53 00:35:00 Test Item Value Reference Range Interpretation Comments MCHC (test code = MCHC) 31.2 32.0-36.0 [facility]iscoGnzmmkoGFDNYWXUZZ4939-98-57 00:35:00 Test Item Value Reference Range Interpretation Comments RDW (test code = RDW) 14.9 11.5-14.5 [facility]iscoMmrdwzqPAXSSPEAPL3131-54-93 00:35:00 Test Item Value Reference Range Interpretation Comments Platelet (test code = Platelet) 282 133-450 [facility]iscoUomlmvpIDCEBIIPRF6148-83-52 00:35:00 Test Item Value Reference Range Interpretation Comments MPV (test code = MPV) 8.8 7.4-10.4 [facility]iscoDsrfuirLETSOLZUMK5136-38-45 00:35:00 Test Item Value Reference Range Interpretation Comments PT (test code = PT) 13.5 s 12.0-14.7 [facility]iscoLxzwseuAGRPRMSBBS8848-34-46 00:35:00 Test Item Value Reference Range Interpretation Comments INR (test code = INR) 1.03 1 0.85-1.17 [place] 316000-03-07 00:35:00 Test Item Value Reference Range Interpretation Comments PTT (test code = PTT) 27.4 s 22.9-35.8 [facility]2020-02-08 09:04:00 Test Item Value Reference Range Interpretation Comments Glucose Lvl (test code = Glucose Lvl) 92 70-99 [facility]2020-02-08 09:04:00 Test Item Value Reference Range Interpretation Comments BUN (test code = BUN) 15 7-22 [place] 078530-02-08 09:04:00 Test Item Value Reference Range Interpretation Comments Creatinine Lvl (test code = Creatinine 0.72 0.50-1.40 Lvl) [facility]2020-02-08 09:04:00 Test Item Value Reference Range Interpretation Comments Sodium Lvl (test code = Sodium Lvl) 141 135-145 [facility]2020-02-08 09:04:00 Test Item Value Reference Range Interpretation Comments Potassium Lvl (test code = Potassium 3.9 3.5-5.1 Lvl) [facility]2020-02-08 09:04:00 Test Item Value Reference Range Interpretation Comments Chloride Lvl (test code = Chloride Lvl) 110 95-109 [place] 078530-02-08 09:04:00 Test Item Value Reference Range Interpretation Comments CO2 (test code = CO2) 26 24-32 [place] 078530-02-08 09:04:00 Test Item Value Reference Range Interpretation Comments Calcium Lvl (test code = Calcium Lvl) 8.6 8.5-10.5 [place] 078530-02-08 09:04:00 Test Item Value Reference Range Interpretation Comments AGAP (test code = AGAP) 8.9 10.0-20.0 [facility]2020-02-08 09:04:00 Test Item Value Reference Range Interpretation Comments eGFR (test code = eGFR) 84 [facility]iscoFysjsyzIHLGWGATTO6724-29-92 09:04:00 Test Item Value Reference Range Interpretation Comments WBC (test code = WBC) 6.7 3.7-10.4 [place] 316000-02-08 09:04:00 Test Item Value Reference Range Interpretation Comments RBC (test code = RBC) 3.39 4.20-5.40 [place] 316000-02-08 09:04:00 Test Item Value Reference Range Interpretation Comments Hgb (test code = Hgb) 9.0 12.0-16.0 [place] [address]-02-08 09:04:00 Test Item Value Reference Range Interpretation Comments Hct (test code = Hct) 27.8 36.0-48.0 [place] 316000-02-08 09:04:00 Test Item Value Reference Range Interpretation Comments MCV (test code = MCV) 82.2 80.0-98.0 [place] [address]-02-08 09:04:00 Test Item Value Reference Range Interpretation Comments MCH (test code = MCH) 26.7 pg 27.0-31.0 [facility]iscoTjfhvhwHWPTSEFQDT2332-64-41 09:04:00 Test Item Value Reference Range Interpretation Comments MCHC (test code = MCHC) 32.5 32.0-36.0 [facility]iscoTkapvfyVBLYCIJECW4550-80-53 09:04:00 Test Item Value Reference Range Interpretation Comments RDW (test code = RDW) 14.9 11.5-14.5 [facility]iscoSiiadeaGQKVZQFYYC5021-54-51 09:04:00 Test Item Value Reference Range Interpretation Comments Platelet (test code = Platelet) 252 133-450 [facility]iscoIcjlzlrUWICCZPALP3423-82-78 09:04:00 Test Item Value Reference Range Interpretation Comments MPV (test code = MPV) 8.6 7.4-10.4 [facility]iscoUdcgxqqZVTEYUPUEJ3069-85-06 09:04:00 Test Item Value Reference Range Interpretation Comments Segs (test code = Segs) 55.6 45.0-75.0 [facility]iscoVkrettzQEKGMSJUOB9793-29-33 09:04:00 Test Item Value Reference Range Interpretation Comments Lymphocytes (test code = Lymphocytes) 28.1 20.0-40.0 [facility]iscoAqparbpVDRCPFLRQZ0739-24-80 09:04:00 Test Item Value Reference Range Interpretation Comments Monocytes (test code = Monocytes) 9.2 2.0-12.0 [facility]iscoZdgmzfmLGUJKFYOJR7156-33-46 09:04:00 Test Item Value Reference Range Interpretation Comments Eosinophils (test code = 6.1 See_Comment [A utomated message] The Eosinophils) system which ge nerated this result tra nsmitted reference range : <=4.0. The reference r eric was not used to int erpret this result as normal/abnormal . [facility]iscoOcnanmpXACQJDDFWE2384-87-98 09:04:00 Test Item Value Reference Range Interpretation Comments Basophils (test code = 1.0 See_Comment [Aut omated message] The Basophils) system which ge nerated this result tra nsmitted reference range : <=1.0. The reference r eric was not used to int erpret this result as normal/abnormal . [facility]iscoHoebscjHRABRCDLBS8871-11-23 09:04:00 Test Item Value Reference Range Interpretation Comments Neutrophils # (test code = Neutrophils 3.7 1.5-8.1 #) [place] 316000-02-08 09:04:00 Test Item Value Reference Range Interpretation Comments Lymphocytes # (test code = Lymphocytes 1.9 1.0-5.5 #) [facility]iscoKgwcdohYPPYNUDMCT6059-59-15 09:04:00 Test Item Value Reference Range Interpretation Comments Monocytes # (test code 0.6 See_Comment [Aut omated message] The = Monocytes #) system which generated this result tra nsmitted reference range : <=0.8. The reference r eric was not used to int erpret this result as normal/abnormal . [facility]iscoQxbwrsmXVWTWLTBHS4056-55-75 09:04:00 Test Item Value Reference Range Interpretation Comments Eosinophils # (test code 0.4 See_Comment [A utomated message] The = Eosinophils #) system whic h generated this result tra nsmitted reference range : <=0.5. The reference r eric was not used to int erpret this result as normal/abnormal . [place] 316000-02-08 09:04:00 Test Item Value Reference Range Interpretation Comments Basophils # (test code 0.1 See_Comment [Aut omated message] The = Basophils #) system which generated this result tra nsmitted reference range : <=0.2. The reference r eric was not used to int erpret this result as normal/abnormal . [facility]2020-02-08 09:04:00 Test Item Value Reference Range Interpretation Comments Glucose Lvl (test code = Glucose Lvl) 92 70-99 [place] 078530-02-08 09:04:00 Test Item Value Reference Range Interpretation Comments BUN (test code = BUN) 15 7-22 [place] 078530-02-08 09:04:00 Test Item Value Reference Range Interpretation Comments Creatinine Lvl (test code = Creatinine 0.72 0.50-1.40 Lvl) [place] 078530-02-08 09:04:00 Test Item Value Reference Range Interpretation Comments Sodium Lvl (test code = Sodium Lvl) 141 135-145 [place] 078530-02-08 09:04:00 Test Item Value Reference Range Interpretation Comments Potassium Lvl (test code = Potassium 3.9 3.5-5.1 Lvl) [place] 078530-02-08 09:04:00 Test Item Value Reference Range Interpretation Comments Chloride Lvl (test code = Chloride Lvl) 110 95-109 [facility] [id number] 09:04:00 Test Item Value Reference Range Interpretation Comments CO2 (test code = CO2) 26 24-32 [facility] [id number] 09:04:00 Test Item Value Reference Range Interpretation Comments Calcium Lvl (test code = Calcium Lvl) 8.6 8.5-10.5 [facility] [id number] 09:04:00 Test Item Value Reference Range Interpretation Comments AGAP (test code = AGAP) 8.9 10.0-20.0 [facility] [id number] 09:04:00 Test Item Value Reference Range Interpretation Comments eGFR (test code = eGFR) 84 [facility]DkxnthlTRRNHIQTTS8399-53-14 09:04:00 Test Item Value Reference Range Interpretation Comments WBC (test code = WBC) 6.7 3.7-10.4 [facility]iscoCfdechoKCEZQYTRSN5813-98-12 09:04:00 Test Item Value Reference Range Interpretation Comments RBC (test code = RBC) 3.39 4.20-5.40 [facility]rcds[facility]rMIRTNYTWCR7318-03-59 09:04:00 Test Item Value Reference Range Interpretation Comments Hgb (test code = Hgb) 9.0 12.0-16.0 [facility]RRKOOCEAPS0758[facility]45-68 09:04:00 Test Item Value Reference Range Interpretation Comments Hct (test code = Hct) 27.8 36.0-48.0 [facility]TzwffpkJTLWDNGTVT7403-26-49 09:04:00 Test Item Value Reference Range Interpretation Comments MCV (test code = MCV) 82.2 80.0-98.0 [facility] HospitalHvcymikDCDGTWQXHY5656-53-70 09:04:00 Test Item Value Reference Range Interpretation Comments MCH (test code = MCH) 26.7 pg 27.0-31.0 [facility]PndzxcjBKORQQMNGK6676-20-21 09:04:00 Test Item Value Reference Range Interpretation Comments MCHC (test code = MCHC) 32.5 32.0-36.0 [facility]HbwmlycMKAUZGKQRF7045-37-06 09:04:00 Test Item Value Reference Range Interpretation Comments RDW (test code = RDW) 14.9 11.5-14.5 [place] 316000-02-08 09:04:00 Test Item Value Reference Range Interpretation Comments Platelet (test code = Platelet) 252 133-450 [facility]HhxcjdiAIHRHJGOFF6127-53-64 09:04:00 Test Item Value Reference Range Interpretation Comments MPV (test code = MPV) 8.6 7.4-10.4 [facility]SewcltkWKWLDVBKFL4113-39-46 09:04:00 Test Item Value Reference Range Interpretation Comments Segs (test code = Segs) 55.6 45.0-75.0 [facility]iscoDwbdmekZJCEHTAGQG0988-20-15 09:04:00 Test Item Value Reference Range Interpretation Comments Lymphocytes (test code = Lymphocytes) 28.1 20.0-40.0 [facility]iscoVgqegqgURDDPJDNNA9908-63-02 09:04:00 Test Item Value Reference Range Interpretation Comments Monocytes (test code = Monocytes) 9.2 2.0-12.0 [facility]QzzoiuwIBNZFSSZKE5346-39-52 09:04:00 Test Item Value Reference Range Interpretation Comments Eosinophils (test code = 6.1 See_Comment [A utomated message] The Eosinophils) system which ge nerated this result tra nsmitted reference range : <=4.0. The reference r eric was not used to int erpret this result as normal/abnormal . [facility]iscoCaihsauZYOLIZYYJF5767-40-18 09:04:00 Test Item Value Reference Range Interpretation Comments Basophils (test code = 1.0 See_Comment [Aut omated message] The Basophils) system which ge nerated this result tra nsmitted reference range : <=1.0. The reference r eric was not used to int erpret this result as normal/abnormal . [facility]iscoSchwdspCPJLWGYCEV3689-78-77 09:04:00 Test Item Value Reference Range Interpretation Comments Neutrophils # (test code = Neutrophils 3.7 1.5-8.1 #) [facility]UiknbqyFPOZXKCXKA5385-29-27 09:04:00 Test Item Value Reference Range Interpretation Comments Lymphocytes # (test code = Lymphocytes 1.9 1.0-5.5 #) [facility]iscoLhtcvcjRDLCDCJJHK9410-72-85 09:04:00 Test Item Value Reference Range Interpretation Comments Monocytes # (test code 0.6 See_Comment [Aut omated message] The = Monocytes #) system which generated this result tra nsmitted reference range : <=0.8. The reference r eric was not used to int erpret this result as normal/abnormal . [facility] CenterUbysyvgFDQLTGXRIW7932-53-13 09:04:00 Test Item Value Reference Range Interpretation Comments Eosinophils # (test code 0.4 See_Comment [A utomated message] The = Eosinophils #) system whic h generated this result tra nsmitted reference range : <=0.5. The reference r eric was not used to int erpret this result as normal/abnormal . [facility] CenterZfdsjoaCRJVWJKQHY3387-17-82 09:04:00 Test Item Value Reference Range Interpretation Comments Basophils # (test code 0.1 See_Comment [Aut omated message] The = Basophils #) system which generated this result tra nsmitted reference range : <=0.2. The reference r eric was not used to int erpret this result as normal/abnormal . [facility] [id number] 09:04:00 Test Item Value Reference Range Interpretation Comments Glucose Lvl (test code = Glucose Lvl) 92 70-99 [facility] [id number] 09:04:00 Test Item Value Reference Range Interpretation Comments BUN (test code = BUN) 15 7-22 [facility] [id number] 09:04:00 Test Item Value Reference Range Interpretation Comments Creatinine Lvl (test code = Creatinine 0.72 0.50-1.40 Lvl) [facility] [employer] [id number] 09:04:00 Test Item Value Reference Range Interpretation Comments Sodium Lvl (test code = Sodium Lvl) 141 135-145 [facility] [id number] 09:04:00 Test Item Value Reference Range Interpretation Comments Potassium Lvl (test code = Potassium 3.9 3.5-5.1 Lvl) [facility] [id number] 09:04:00 Test Item Value Reference Range Interpretation Comments Chloride Lvl (test code = Chloride Lvl) 110 95-109 [facility] BKGPH8975-00-04 09:04:00 Test Item Value Reference Range Interpretation Comments CO2 (test code = CO2) 26 24-32 [facility] KKQCY1710-09-00 09:04:00 Test Item Value Reference Range Interpretation Comments Calcium Lvl (test code = Calcium Lvl) 8.6 8.5-10.5 [facility] [id number] 09:04:00 Test Item Value Reference Range Interpretation Comments AGAP (test code = AGAP) 8.9 10.0-20.0 [facility] [id number] 09:04:00 Test Item Value Reference Range Interpretation Comments eGFR (test code = eGFR) 84 [facility]VwbrzrlMDXGKAPEFI2420-05-52 09:04:00 Test Item Value Reference Range Interpretation Comments WBC (test code = WBC) 6.7 3.7-10.4 [facility]iscoJpahqwyUTUNOPPTLD4829-50-64 09:04:00 Test Item Value Reference Range Interpretation Comments RBC (test code = RBC) 3.39 4.20-5.40 [facility]iscoBemhsqpCXOTOZDOQQ2156-03-72 09:04:00 Test Item Value Reference Range Interpretation Comments Hgb (test code = Hgb) 9.0 12.0-16.0 [facility]iscoLbmgkvvBTXCGBHJYL2928-48-99 09:04:00 Test Item Value Reference Range Interpretation Comments Hct (test code = Hct) 27.8 36.0-48.0 [facility]iscoCsateviPMXMJLFKOT8957-79-07 09:04:00 Test Item Value Reference Range Interpretation Comments MCV (test code = MCV) 82.2 80.0-98.0 [facility]iscoHzptsadZPLSSOGQMA7948-26-49 09:04:00 Test Item Value Reference Range Interpretation Comments MCH (test code = MCH) 26.7 pg 27.0-31.0 [facility]iscoZyivwksLXDFDSJGJG3299-46-07 09:04:00 Test Item Value Reference Range Interpretation Comments MCHC (test code = MCHC) 32.5 32.0-36.0 [facility]iscoVtfryhmPWNFXWWVOF6934-72-78 09:04:00 Test Item Value Reference Range Interpretation Comments RDW (test code = RDW) 14.9 11.5-14.5 [facility]iscoApgeageHFUVJGUFNU9810-71-46 09:04:00 Test Item Value Reference Range Interpretation Comments Platelet (test code = Platelet) 252 133-450 [facility]iscoBfjuucpBAITBHECXT3393-74-91 09:04:00 Test Item Value Reference Range Interpretation Comments MPV (test code = MPV) 8.6 7.4-10.4 [facility]iscoGdhhtuyRDBXPVFFYD5733-80-23 09:04:00 Test Item Value Reference Range Interpretation Comments Segs (test code = Segs) 55.6 45.0-75.0 [place] 316000-02-08 09:04:00 Test Item Value Reference Range Interpretation Comments Lymphocytes (test code = Lymphocytes) 28.1 20.0-40.0 [place] 316000-02-08 09:04:00 Test Item Value Reference Range Interpretation Comments Monocytes (test code = Monocytes) 9.2 2.0-12.0 [facility]iscoOijtwjmKDSWSSDHYE7148-41-51 09:04:00 Test Item Value Reference Range Interpretation Comments Eosinophils (test code = 6.1 See_Comment [A utomated message] The Eosinophils) system which ge nerated this result tra nsmitted reference range : <=4.0. The reference r eric was not used to int erpret this result as normal/abnormal . [place] 316000-02-08 09:04:00 Test Item Value Reference Range Interpretation Comments Basophils (test code = 1.0 See_Comment [Aut omated message] The Basophils) system which ge nerated this result tra nsmitted reference range : <=1.0. The reference r eric was not used to int erpret this result as normal/abnormal . [facility]iscoRhzjsrlRBRMBMPDUA4296-64-64 09:04:00 Test Item Value Reference Range Interpretation Comments Neutrophils # (test code = Neutrophils 3.7 1.5-8.1 #) [facility]iscoDllbgolXGGXLAHUEE6533-74-13 09:04:00 Test Item Value Reference Range Interpretation Comments Lymphocytes # (test code = Lymphocytes 1.9 1.0-5.5 #) [place] 316000-02-08 09:04:00 Test Item Value Reference Range Interpretation Comments Monocytes # (test code 0.6 See_Comment [Aut omated message] The = Monocytes #) system which generated this result tra nsmitted reference range : <=0.8. The reference r eric was not used to int erpret this result as normal/abnormal . [facility]iscoLsmpldbZMZZRPYYSA6418-31-95 09:04:00 Test Item Value Reference Range Interpretation Comments Eosinophils # (test code 0.4 See_Comment [A utomated message] The = Eosinophils #) system whic h generated this result tra nsmitted reference range : <=0.5. The reference r eric was not used to int erpret this result as normal/abnormal . [facility]AbblqwvJXBBZGAGWP2859-53-86 09:04:00 Test Item Value Reference Range Interpretation Comments Basophils # (test code 0.1 See_Comment [Aut omated message] The = Basophils #) system which generated this result tra nsmitted reference range : <=0.2. The reference r eric was not used to int erpret this result as normal/abnormal . [facility]2020-02-07 09:19:00 Test Item Value Reference Range Interpretation Comments Glucose Lvl (test code = Glucose Lvl) 72 70-99 [place] 078530-02-07 09:19:00 Test Item Value Reference Range Interpretation Comments BUN (test code = BUN) 20 7-22 [place] 078530-02-07 09:19:00 Test Item Value Reference Range Interpretation Comments Creatinine Lvl (test code = Creatinine 0.71 0.50-1.40 Lvl) [place] 078530-02-07 09:19:00 Test Item Value Reference Range Interpretation Comments Sodium Lvl (test code = Sodium Lvl) 141 135-145 [place] 078530-02-07 09:19:00 Test Item Value Reference Range Interpretation Comments Potassium Lvl (test code = Potassium 4.0 3.5-5.1 Lvl) [facility]2020-02-07 09:19:00 Test Item Value Reference Range Interpretation Comments Chloride Lvl (test code = Chloride Lvl) 108 95-109 [facility]2020-02-07 09:19:00 Test Item Value Reference Range Interpretation Comments CO2 (test code = CO2) 24 24-32 [place] 078530-02-07 09:19:00 Test Item Value Reference Range Interpretation Comments AGAP (test code = AGAP) 13.0 10.0-20.0 [place] 078530-02-07 09:19:00 Test Item Value Reference Range Interpretation Comments Calcium Lvl (test code = Calcium Lvl) 9.1 8.5-10.5 [place] 078530-02-07 09:19:00 Test Item Value Reference Range Interpretation Comments B/C Ratio (test code = B/C Ratio) 28 1 6-25 [place] 078530-02-07 09:19:00 Test Item Value Reference Range Interpretation Comments Total Protein (test code = Total 6.3 6.4-8.4 Protein) [facility]2020-02-07 09:19:00 Test Item Value Reference Range Interpretation Comments Albumin Lvl (test code = Albumin Lvl) 2.9 3.5-5.0 [place] 078530-02-07 09:19:00 Test Item Value Reference Range Interpretation Comments Globulin (test code = Globulin) 3.4 2.7-4.2 [facility] [employer] [id number] 09:19:00 Test Item Value Reference Range Interpretation Comments A/G Ratio (test code = A/G Ratio) 0.9 1 0.7-1.6 [place] 078530-02-07 09:19:00 Test Item Value Reference Range Interpretation Comments ALT (test code = ALT) 15 See_Comment [Auto mated message] The system which ge nerated this result transmit thelma reference range : <=65. The reference range was not used to interpr et this result as zana l/abnormal. [facility] [employer] [id number] 09:19:00 Test Item Value Reference Range Interpretation Comments AST (test code = AST) 16 See_Comment [Auto mated message] The system which ge nerated this result transmit thelma reference range : <=37. The reference range was not used to interpr et this result as zana l/abnormal. [facility] [employer] [id number] 09:19:00 Test Item Value Reference Range Interpretation Comments Alk Phos (test code = Alk Phos) 56 39-136 [facility] [employer] [id number] 09:19:00 Test Item Value Reference Range Interpretation Comments Bili Total (test code = Bili Total) 0.3 0.2-1.3 [facility] [employer] [id number] 09:19:00 Test Item Value Reference Range Interpretation Comments eGFR (test code = eGFR) 84 [place] 316000-02-07 09:19:00 Test Item Value Reference Range Interpretation Comments Segs (test code = Segs) 75.0 45.0-75.0 [place] 316000-02-07 09:19:00 Test Item Value Reference Range Interpretation Comments Lymphocytes (test code = Lymphocytes) 14.1 20.0-40.0 [facility]mxuaeqXHYGBISQPT8958-27-38 09:19:00 Test Item Value Reference Range Interpretation Comments Monocytes (test code = Monocytes) 8.4 2.0-12.0 [facility]iscoSxdmvnzMTEQNMDGJS5046-14-69 09:19:00 Test Item Value Reference Range Interpretation Comments Eosinophils (test code = 1.9 See_Comment [A utomated message] The Eosinophils) system which ge nerated this result tra nsmitted reference range : <=4.0. The reference r eric was not used to int erpret this result as normal/abnormal . [place] 316000-02-07 09:19:00 Test Item Value Reference Range Interpretation Comments Basophils (test code = 0.6 See_Comment [Aut omated message] The Basophils) system which ge nerated this result tra nsmitted reference range : <=1.0. The reference r eric was not used to int erpret this result as normal/abnormal . [facility] 09:19:00 Test Item Value Reference Range Interpretation Comments Neutrophils # (test code = Neutrophils 8.1 1.5-8.1 #) [facility]qdkdnpPPRASCAJEC9597[facility]00-27 09:19:00 Test Item Value Reference Range Interpretation Comments Lymphocytes # (test code = Lymphocytes 1.5 1.0-5.5 #) [facility]JtislaxLURJYIVWMS9432-93-94 09:19:00 Test Item Value Reference Range Interpretation Comments Monocytes # (test code 0.9 See_Comment [Aut omated message] The = Monocytes #) system which generated this result tra nsmitted reference range : <=0.8. The reference r eric was not used to int erpret this result as normal/abnormal . [facility]iscoFfloenvNKZWFSYNNF7498-44-93 09:19:00 Test Item Value Reference Range Interpretation Comments Eosinophils # (test code 0.2 See_Comment [A utomated message] The = Eosinophils #) system whic h generated this result tra nsmitted reference range : <=0.5. The reference r eric was not used to int erpret this result as normal/abnormal . [facility]iscoWgqntbnLPGINVVXFS6853-00-02 09:19:00 Test Item Value Reference Range Interpretation Comments Basophils # (test code 0.1 See_Comment [Aut omated message] The = Basophils #) system which generated this result tra nsmitted reference range : <=0.2. The reference r eric was not used to int erpret this result as normal/abnormal . [facility]XqjwgbcMTFINGGJSK5381-45-26 09:19:00 Test Item Value Reference Range Interpretation Comments WBC (test code = WBC) 10.8 3.7-10.4 [facility]NdxvnoeSQYYBWHWDL8650-10-60 09:19:00 Test Item Value Reference Range Interpretation Comments RBC (test code = RBC) 3.78 4.20-5.40 [place] 316000-02-07 09:19:00 Test Item Value Reference Range Interpretation Comments Hgb (test code = Hgb) 9.9 12.0-16.0 [place] 316000-02-07 09:19:00 Test Item Value Reference Range Interpretation Comments Hct (test code = Hct) 30.9 36.0-48.0 [place] 316000-02-07 09:19:00 Test Item Value Reference Range Interpretation Comments MCV (test code = MCV) 81.9 80.0-98.0 [facility]BwuwrzoAVVWKOXIDI3901-70-71 09:19:00 Test Item Value Reference Range Interpretation Comments MCH (test code = MCH) 26.3 pg 27.0-31.0 [facility]XmjnviqQCLKVCLTQY0920-80-51 09:19:00 Test Item Value Reference Range Interpretation Comments MCHC (test code = MCHC) 32.1 32.0-36.0 [facility]iscoRcjacefYKUUNQXSTE9383-94-69 09:19:00 Test Item Value Reference Range Interpretation Comments RDW (test code = RDW) 15.2 11.5-14.5 [facility]iscoJcecutuQDPTFBULOU6555-95-47 09:19:00 Test Item Value Reference Range Interpretation Comments Platelet (test code = Platelet) 298 133-450 [facility]iscoLitfkerLULBHOPLOI8542-27-69 09:19:00 Test Item Value Reference Range Interpretation Comments MPV (test code = MPV) 8.2 7.4-10.4 [facility]2020-02-07 09:19:00 Test Item Value Reference Range Interpretation Comments Glucose Lvl (test code = Glucose Lvl) 72 70-99 [facility]2020-02-07 09:19:00 Test Item Value Reference Range Interpretation Comments BUN (test code = BUN) 20 7-22 [facility]2020-02-07 09:19:00 Test Item Value Reference Range Interpretation Comments Creatinine Lvl (test code = Creatinine 0.71 0.50-1.40 Lvl) [facility]2020-02-07 09:19:00 Test Item Value Reference Range Interpretation Comments Sodium Lvl (test code = Sodium Lvl) 141 135-145 [facility]2020-02-07 09:19:00 Test Item Value Reference Range Interpretation Comments Potassium Lvl (test code = Potassium 4.0 3.5-5.1 Lvl) [facility]2020-02-07 09:19:00 Test Item Value Reference Range Interpretation Comments Chloride Lvl (test code = Chloride Lvl) 108 95-109 [facility]2020-02-07 09:19:00 Test Item Value Reference Range Interpretation Comments CO2 (test code = CO2) 24 24-32 [place] 078530-02-07 09:19:00 Test Item Value Reference Range Interpretation Comments AGAP (test code = AGAP) 13.0 10.0-20.0 [facility]2020-02-07 09:19:00 Test Item Value Reference Range Interpretation Comments Calcium Lvl (test code = Calcium Lvl) 9.1 8.5-10.5 [facility]2020-02-07 09:19:00 Test Item Value Reference Range Interpretation Comments B/C Ratio (test code = B/C Ratio) 28 1 6-25 [facility]2020-02-07 09:19:00 Test Item Value Reference Range Interpretation Comments Total Protein (test code = Total 6.3 6.4-8.4 Protein) [place] 078530-02-07 09:19:00 Test Item Value Reference Range Interpretation Comments Albumin Lvl (test code = Albumin Lvl) 2.9 3.5-5.0 [place] 078530-02-07 09:19:00 Test Item Value Reference Range Interpretation Comments Globulin (test code = Globulin) 3.4 2.7-4.2 [place] 078530-02-07 09:19:00 Test Item Value Reference Range Interpretation Comments A/G Ratio (test code = A/G Ratio) 0.9 1 0.7-1.6 [facility] [id number] 09:19:00 Test Item Value Reference Range Interpretation Comments ALT (test code = ALT) 15 See_Comment [Auto mated message] The system which ge nerated this result transmit thelma reference range : <=65. The reference range was not used to interpr et this result as zana l/abnormal. [facility] [employer] [id number] 09:19:00 Test Item Value Reference Range Interpretation Comments AST (test code = AST) 16 See_Comment [Auto mated message] The system which ge nerated this result transmit thelma reference range : <=37. The reference range was not used to interpr et this result as zana l/abnormal. [facility] [place] [employer] [id number] 09:19:00 Test Item Value Reference Range Interpretation Comments Alk Phos (test code = Alk Phos) 56 39-136 [facility] [id number] 09:19:00 Test Item Value Reference Range Interpretation Comments Bili Total (test code = Bili Total) 0.3 0.2-1.3 [facility] [id number] 09:19:00 Test Item Value Reference Range Interpretation Comments eGFR (test code = eGFR) 84 [facility] HospitalVlzchlhRGKMDGWPSM7551-27-99 09:19:00 Test Item Value Reference Range Interpretation Comments Segs (test code = Segs) 75.0 45.0-75.0 [facility] HospitalWwtokvrQXHDRJWMPR3109-15-49 09:19:00 Test Item Value Reference Range Interpretation Comments Lymphocytes (test code = Lymphocytes) 14.1 20.0-40.0 [facility] HospitalUentkelZFOTNWPLFY5308-64-92 09:19:00 Test Item Value Reference Range Interpretation Comments Monocytes (test code = Monocytes) 8.4 2.0-12.0 [facility] ClibhstVCJEAXUAJC8969-64-91 09:19:00 Test Item Value Reference Range Interpretation Comments Eosinophils (test code = 1.9 See_Comment [A utomated message] The Eosinophils) system which ge nerated this result tra nsmitted reference range : <=4.0. The reference r eric was not used to int erpret this result as normal/abnormal . [facility] HospitalXvplnwbGUVWZRMWWL5222-46-85 09:19:00 Test Item Value Reference Range Interpretation Comments Basophils (test code = 0.6 See_Comment [Aut omated message] The Basophils) system which ge nerated this result tra nsmitted reference range : <=1.0. The reference r eric was not used to int erpret this result as normal/abnormal . [place] 316000-02-07 09:19:00 Test Item Value Reference Range Interpretation Comments Neutrophils # (test code = Neutrophils 8.1 1.5-8.1 #) [facility]XyithebIITIEZNRKJ5699-73-75 09:19:00 Test Item Value Reference Range Interpretation Comments Lymphocytes # (test code = Lymphocytes 1.5 1.0-5.5 #) [place] 316000-02-07 09:19:00 Test Item Value Reference Range Interpretation Comments Monocytes # (test code 0.9 See_Comment [Aut omated message] The = Monocytes #) system which generated this result tra nsmitted reference range : <=0.8. The reference r eric was not used to int erpret this result as normal/abnormal . [facility]iscoTcypfyuRTOFPESDZQ6874-57-83 09:19:00 Test Item Value Reference Range Interpretation Comments Eosinophils # (test code 0.2 See_Comment [A utomated message] The = Eosinophils #) system whic h generated this result tra nsmitted reference range : <=0.5. The reference r eric was not used to int erpret this result as normal/abnormal . [facility]iscoVmuvxmaNCLGJFBQQI0216-40-70 09:19:00 Test Item Value Reference Range Interpretation Comments Basophils # (test code 0.1 See_Comment [Aut omated message] The = Basophils #) system which generated this result tra nsmitted reference range : <=0.2. The reference r eric was not used to int erpret this result as normal/abnormal . [facility]iscoQnosainOPZYITUSNM8433-26-19 09:19:00 Test Item Value Reference Range Interpretation Comments WBC (test code = WBC) 10.8 3.7-10.4 [facility]iscoJhvdsqkDSMBTRMJNI1900-82-77 09:19:00 Test Item Value Reference Range Interpretation Comments RBC (test code = RBC) 3.78 4.20-5.40 [place] 316000-02-07 09:19:00 Test Item Value Reference Range Interpretation Comments Hgb (test code = Hgb) 9.9 12.0-16.0 [place] 316000-02-07 09:19:00 Test Item Value Reference Range Interpretation Comments Hct (test code = Hct) 30.9 36.0-48.0 [facility]iscoYdfcnqrEWWUGLTEXN2463-86-92 09:19:00 Test Item Value Reference Range Interpretation Comments MCV (test code = MCV) 81.9 80.0-98.0 [place] 316000-02-07 09:19:00 Test Item Value Reference Range Interpretation Comments MCH (test code = MCH) 26.3 pg 27.0-31.0 [place] 316000-02-07 09:19:00 Test Item Value Reference Range Interpretation Comments MCHC (test code = MCHC) 32.1 32.0-36.0 [place] 316000-02-07 09:19:00 Test Item Value Reference Range Interpretation Comments RDW (test code = RDW) 15.2 11.5-14.5 [place] [address]-02-07 09:19:00 Test Item Value Reference Range Interpretation Comments Platelet (test code = Platelet) 298 133-450 [place] 316000-02-07 09:19:00 Test Item Value Reference Range Interpretation Comments MPV (test code = MPV) 8.2 7.4-10.4 [facility]2020-02-07 09:19:00 Test Item Value Reference Range Interpretation Comments Glucose Lvl (test code = Glucose Lvl) 72 70-99 [facility]2020-02-07 09:19:00 Test Item Value Reference Range Interpretation Comments BUN (test code = BUN) 20 7-22 [place] 078530-02-07 09:19:00 Test Item Value Reference Range Interpretation Comments Creatinine Lvl (test code = Creatinine 0.71 0.50-1.40 Lvl) [place] 078530-02-07 09:19:00 Test Item Value Reference Range Interpretation Comments Sodium Lvl (test code = Sodium Lvl) 141 135-145 [place] 078530-02-07 09:19:00 Test Item Value Reference Range Interpretation Comments Potassium Lvl (test code = Potassium 4.0 3.5-5.1 Lvl) [place] 078530-02-07 09:19:00 Test Item Value Reference Range Interpretation Comments Chloride Lvl (test code = Chloride Lvl) 108 95-109 [place] 078530-02-07 09:19:00 Test Item Value Reference Range Interpretation Comments CO2 (test code = CO2) 24 24-32 [place] [address]-02-07 09:19:00 Test Item Value Reference Range Interpretation Comments AGAP (test code = AGAP) 13.0 10.0-20.0 [place] [address]-02-07 09:19:00 Test Item Value Reference Range Interpretation Comments Calcium Lvl (test code = Calcium Lvl) 9.1 8.5-10.5 [place] [address]-02-07 09:19:00 Test Item Value Reference Range Interpretation Comments B/C Ratio (test code = B/C Ratio) 28 1 6-25 [place] [address]-02-07 09:19:00 Test Item Value Reference Range Interpretation Comments Total Protein (test code = Total 6.3 6.4-8.4 Protein) [place] 078530-02-07 09:19:00 Test Item Value Reference Range Interpretation Comments Albumin Lvl (test code = Albumin Lvl) 2.9 3.5-5.0 [place] [address]-02-07 09:19:00 Test Item Value Reference Range Interpretation Comments Globulin (test code = Globulin) 3.4 2.7-4.2 [place] 078530-02-07 09:19:00 Test Item Value Reference Range Interpretation Comments A/G Ratio (test code = A/G Ratio) 0.9 1 0.7-1.6 [place] [address]-02-07 09:19:00 Test Item Value Reference Range Interpretation Comments ALT (test code = ALT) 15 See_Comment [Auto mated message] The system which ge nerated this result transmit thelma reference range : <=65. The reference range was not used to interpr et this result as zana l/abnormal. [facility] [employer] [id number] 09:19:00 Test Item Value Reference Range Interpretation Comments AST (test code = AST) 16 See_Comment [Auto mated message] The system which ge nerated this result transmit thelma reference range : <=37. The reference range was not used to interpr et this result as zana l/abnormal. [facility]2020-02-07 09:19:00 Test Item Value Reference Range Interpretation Comments Alk Phos (test code = Alk Phos) 56 39-136 [facility]2020-02-07 09:19:00 Test Item Value Reference Range Interpretation Comments Bili Total (test code = Bili Total) 0.3 0.2-1.3 [place] [address]-02-07 09:19:00 Test Item Value Reference Range Interpretation Comments eGFR (test code = eGFR) 84 [facility]iscoGxsvzobYDYACWELHJ1256-55-45 09:19:00 Test Item Value Reference Range Interpretation Comments Segs (test code = Segs) 75.0 45.0-75.0 [place] [address]-02-07 09:19:00 Test Item Value Reference Range Interpretation Comments Lymphocytes (test code = Lymphocytes) 14.1 20.0-40.0 [place] 316000-02-07 09:19:00 Test Item Value Reference Range Interpretation Comments Monocytes (test code = Monocytes) 8.4 2.0-12.0 [facility]iscoTwqjwwsZZUXXSRACL2939-98-50 09:19:00 Test Item Value Reference Range Interpretation Comments Eosinophils (test code = 1.9 See_Comment [A utomated message] The Eosinophils) system which ge nerated this result tra nsmitted reference range : <=4.0. The reference r eric was not used to int erpret this result as normal/abnormal . [facility]iscoQgkmwxqHWNNGOJVTQ0350-00-87 09:19:00 Test Item Value Reference Range Interpretation Comments Basophils (test code = 0.6 See_Comment [Aut omated message] The Basophils) system which ge nerated this result tra nsmitted reference range : <=1.0. The reference r eric was not used to int erpret this result as normal/abnormal . [facility]iscoPbfpqmhETUPORSRQV7963-21-50 09:19:00 Test Item Value Reference Range Interpretation Comments Neutrophils # (test code = Neutrophils 8.1 1.5-8.1 #) [facility]iscoCntamaxSKSZNSGIEJ1794-23-62 09:19:00 Test Item Value Reference Range Interpretation Comments Lymphocytes # (test code = Lymphocytes 1.5 1.0-5.5 #) [place] [address]-02-07 09:19:00 Test Item Value Reference Range Interpretation Comments Monocytes # (test code 0.9 See_Comment [Aut omated message] The = Monocytes #) system which generated this result tra nsmitted reference range : <=0.8. The reference r eric was not used to int erpret this result as normal/abnormal . [facility]iscoKeyzcioODTHMRPGOD4662-18-80 09:19:00 Test Item Value Reference Range Interpretation Comments Eosinophils # (test code 0.2 See_Comment [A utomated message] The = Eosinophils #) system whic h generated this result tra nsmitted reference range : <=0.5. The reference r eric was not used to int erpret this result as normal/abnormal . [facility]iscoHstuidxVFYQPKFQNP1497-45-83 09:19:00 Test Item Value Reference Range Interpretation Comments Basophils # (test code 0.1 See_Comment [Aut omated message] The = Basophils #) system which generated this result tra nsmitted reference range : <=0.2. The reference r eric was not used to int erpret this result as normal/abnormal . [facility]iscoJxzriydOJYCFLVFKW6090-73-05 09:19:00 Test Item Value Reference Range Interpretation Comments WBC (test code = WBC) 10.8 3.7-10.4 [facility]iscoXtmeegrWAFZOZMYPJ2209-31-30 09:19:00 Test Item Value Reference Range Interpretation Comments RBC (test code = RBC) 3.78 4.20-5.40 [facility]iscoNplwkagAPFQUKUPDG8255-66-22 09:19:00 Test Item Value Reference Range Interpretation Comments Hgb (test code = Hgb) 9.9 12.0-16.0 [place] 316000-02-07 09:19:00 Test Item Value Reference Range Interpretation Comments Hct (test code = Hct) 30.9 36.0-48.0 [place] 316000-02-07 09:19:00 Test Item Value Reference Range Interpretation Comments MCV (test code = MCV) 81.9 80.0-98.0 [place] 316000-02-07 09:19:00 Test Item Value Reference Range Interpretation Comments MCH (test code = MCH) 26.3 pg 27.0-31.0 [facility]iscoUkhiiwvUBYPUBGULH6167-93-71 09:19:00 Test Item Value Reference Range Interpretation Comments MCHC (test code = MCHC) 32.1 32.0-36.0 [facility]iscoJuilfskFBVCCGKHBD7796-00-59 09:19:00 Test Item Value Reference Range Interpretation Comments RDW (test code = RDW) 15.2 11.5-14.5 [facility]iscoLbzygdeWETDNJHPRB2559-74-21 09:19:00 Test Item Value Reference Range Interpretation Comments Platelet (test code = Platelet) 298 133-450 [facility]ywpnhpBOHIYODQUZ8139-41-80 09:19:00 Test Item Value Reference Range Interpretation Comments MPV (test code = MPV) 8.2 7.4-10.4 [facility] AND [id number] 08:04:00 Test Item Value Reference Range Interpretation Comments UA Turbidity (test code = Clear (10/21/19 2:04 UA Turbidity) AM) [facility] AND [id number] 08:04:00 Test Item Value Reference Range Interpretation Comments UA Spec Grav (test code = UA Spec 1.033 1 Grav) [facility] AND [id number] 08:04:00 Test Item Value Reference Range Interpretation Comments UA pH (test code = UA pH) 8.0 1 5.0-8.0 [facility] AND [id number] 08:04:00 Test Item Value Reference Range Interpretation Comments UA Protein (test code = UA Negative mg/dL Protein) [facility] AND [id number] 08:04:00 Test Item Value Reference Range Interpretation Comments UA Glucose (test code = UA Negative mg/dL Glucose) [facility] AND [id number] 08:04:00 Test Item Value Reference Range Interpretation Comments UA Ketones (test code = UA Ketones) 20 mg/dL [facility] AND [id number] 08:04:00 Test Item Value Reference Range Interpretation Comments UA Bili (test code = Negative *NA*(10/21/19 UA Bili) 2:04 AM) [facility] AND [id number] 08:04:00 Test Item Value Reference Range Interpretation Comments UA Blood (test code = Negative (10/21/19 2:04 UA Blood) AM) [facility] AND [id number] 08:04:00 Test Item Value Reference Range Interpretation Comments UA Nitrite (test code Negative (10/21/19 2:04 = UA Nitrite) AM) [facility] [id number] 08:04:00 Test Item Value Reference Range Interpretation Comments UA Leuk Est (test Negative (10/21/19 2:04 code = UA Leuk Est) AM) [facility] [id number] 08:04:00 Test Item Value Reference Range Interpretation Comments UA Sq Epi (test code = UA Sq Epi) Few /LPF [facility] [id number] 08:04:00 Test Item Value Reference Range Interpretation Comments UA WBC (test code = 4 See_Comment [Automa thelma message] The UA WBC) system which ge nerated this result transmit thelma reference range : <=5. The reference range was not used to interpr et this result as zana l/abnormal. [facility] [id number] 08:04:00 Test Item Value Reference Range Interpretation Comments UA RBC (test code = 1 See_Comment [Automa thelma message] The UA RBC) system which ge nerated this result transmit thelma reference range : <=2. The reference range was not used to interpr et this result as zana l/abnormal. [facility] [id number] 08:04:00 Test Item Value Reference Range Interpretation Comments UA Bacteria (test code = UA Occasional /HPF Bacteria) [facility] AND [id number] 08:04:00 Test Item Value Reference Range Interpretation Comments UA Hyal Cast (test 1 See_Comment [Automat ed message] The code = UA Hyal Cast) system which generated this result transmit thelma reference range : <=2. The reference range was not used to interpr et this result as zana l/abnormal. [facility] [id number] 08:04:00 Test Item Value Reference Range Interpretation Comments UA Color (test code = UA Color) YELLOW [facility] [id number] 08:04:00 Test Item Value Reference Range Interpretation Comments UA Urobilinogen (test code = UA <=1.0 mg/dL 0.1-1.0 Urobilinogen) [facility] [id number] 08:04:00 Test Item Value Reference Range Interpretation Comments UA Turbidity (test code = Clear (10/21/19 2:04 UA Turbidity) AM) [facility] AND [id number] 08:04:00 Test Item Value Reference Range Interpretation Comments UA Spec Grav (test code = UA Spec 1.033 1 Grav) [facility] AND [id number] 08:04:00 Test Item Value Reference Range Interpretation Comments UA pH (test code = UA pH) 8.0 1 5.0-8.0 [facility] AND [id number] 08:04:00 Test Item Value Reference Range Interpretation Comments UA Protein (test code = UA Negative mg/dL Protein) [facility] AND [id number] 08:04:00 Test Item Value Reference Range Interpretation Comments UA Glucose (test code = UA Negative mg/dL Glucose) [facility] AND [id number] 08:04:00 Test Item Value Reference Range Interpretation Comments UA Ketones (test code = UA Ketones) 20 mg/dL [facility] AND [id number] 08:04:00 Test Item Value Reference Range Interpretation Comments UA Bili (test code = Negative *NA*(10/21/19 UA Bili) 2:04 AM) [facility] AND [id number] 08:04:00 Test Item Value Reference Range Interpretation Comments UA Blood (test code = Negative (10/21/19 2:04 UA Blood) AM) [facility] AND [id number] 08:04:00 Test Item Value Reference Range Interpretation Comments UA Nitrite (test code Negative (10/21/19 2:04 = UA Nitrite) AM) [facility] AND [id number] 08:04:00 Test Item Value Reference Range Interpretation Comments UA Leuk Est (test Negative (10/21/19 2:04 code = UA Leuk Est) AM) [facility] AND [id number] 08:04:00 Test Item Value Reference Range Interpretation Comments UA Sq Epi (test code = UA Sq Epi) Few /LPF [facility] AND [id number] 08:04:00 Test Item Value Reference Range Interpretation Comments UA WBC (test code = 4 See_Comment [Automa thelma message] The UA WBC) system which ge nerated this result transmit thelma reference range : <=5. The reference range was not used to interpr et this result as zana l/abnormal. [facility] [id number] 08:04:00 Test Item Value Reference Range Interpretation Comments UA RBC (test code = 1 See_Comment [Automa thelma message] The UA RBC) system which ge nerated this result transmit thelma reference range : <=2. The reference range was not used to interpr et this result as zana l/abnormal. [facility] [id number] 08:04:00 Test Item Value Reference Range Interpretation Comments UA Bacteria (test code = UA Occasional /HPF Bacteria) [facility] AND [id number] 08:04:00 Test Item Value Reference Range Interpretation Comments UA Hyal Cast (test 1 See_Comment [Automat ed message] The code = UA [employer]) system which generated this result transmit thelma reference range : <=2. The reference range was not used to interpr et this result as zana l/abnormal. [facility] [id number] 08:04:00 Test Item Value Reference Range Interpretation Comments UA Color (test code = UA Color) YELLOW [facility] AND [id number] 08:04:00 Test Item Value Reference Range Interpretation Comments UA Urobilinogen (test code = UA <=1.0 mg/dL 0.1-1.0 Urobilinogen) [facility] AND [id number] 08:04:00 Test Item Value Reference Range Interpretation Comments UA Turbidity (test code = Clear (10/21/19 2:04 UA Turbidity) AM) [facility] AND [id number] 08:04:00 Test Item Value Reference Range Interpretation Comments UA Spec Grav (test code = UA Spec 1.033 1 Grav) [facility] AND [id number] 08:04:00 Test Item Value Reference Range Interpretation Comments UA pH (test code = UA pH) 8.0 1 5.0-8.0 [facility] AND [id number] 08:04:00 Test Item Value Reference Range Interpretation Comments UA Protein (test code = UA Negative mg/dL Protein) [facility] AND [id number] 08:04:00 Test Item Value Reference Range Interpretation Comments UA Glucose (test code = UA Negative mg/dL Glucose) [facility] [id number] 08:04:00 Test Item Value Reference Range Interpretation Comments UA Ketones (test code = UA Ketones) 20 mg/dL [facility] [id number] 08:04:00 Test Item Value Reference Range Interpretation Comments UA Bili (test code = Negative *NA*(10/21/19 UA Bili) 2:04 AM) [facility] [id number] 08:04:00 Test Item Value Reference Range Interpretation Comments UA Blood (test code = Negative (10/21/19 2:04 UA Blood) AM) [facility] [id number] 08:04:00 Test Item Value Reference Range Interpretation Comments UA Nitrite (test code Negative (10/21/19 2:04 = UA Nitrite) AM) [facility] AND [id number] 08:04:00 Test Item Value Reference Range Interpretation Comments UA Leuk Est (test Negative (10/21/19 2:04 code = UA Leuk Est) AM) [facility] [id number] 08:04:00 Test Item Value Reference Range Interpretation Comments UA Sq Epi (test code = UA Sq Epi) Few /LPF [facility] AND [id number] 08:04:00 Test Item Value Reference Range Interpretation Comments UA WBC (test code = 4 See_Comment [Automa thelma message] The UA WBC) system which ge nerated this result transmit thelma reference range : <=5. The reference range was not used to interpr et this result as zana l/abnormal. [facility] [id number] 08:04:00 Test Item Value Reference Range Interpretation Comments UA RBC (test code = 1 See_Comment [Automa thelma message] The UA RBC) system which ge nerated this result transmit thelma reference range : <=2. The reference range was not used to interpr et this result as zana l/abnormal. [facility] [id number] 08:04:00 Test Item Value Reference Range Interpretation Comments UA Bacteria (test code = UA Occasional /HPF Bacteria) [facility] [id number] 08:04:00 Test Item Value Reference Range Interpretation Comments UA Hyal Cast (test 1 See_Comment [Automat ed message] The code = UA [employer]) system which generated this result transmit thelma reference range : <=2. The reference range was not used to interpr et this result as zana l/abnormal. [facility] AND [id number] 08:04:00 Test Item Value Reference Range Interpretation Comments UA Color (test code = UA Color) YELLOW [facility] AND [id number] 08:04:00 Test Item Value Reference Range Interpretation Comments UA Urobilinogen (test code = UA <=1.0 mg/dL 0.1-1.0 Urobilinogen) [id number] 18:55:00 Test Item Value Reference Range Interpretation Comments Basophils (test code = 0.3 See_Comment [Aut omated message] The Basophils) system which ge nerated this result tra nsmitted reference range : <=1.0. The reference r eric was not used to int erpret this result as normal/abnormal . [facility]SDWCBVMFI9670-18-98 18:55:00 Test Item Value Reference Range Interpretation Comments Neutrophils # (test code = Neutrophils 12.3 1.5-8.1 #) [facility]FwxvihfWCYRRBSTHY4235-83-13 18:55:00 Test Item Value Reference Range Interpretation Comments Lymphocytes # (test code = Lymphocytes 1.1 1.0-5.5 #) [id number] 18:55:00 Test Item Value Reference Range Interpretation Comments Monocytes # (test code 0.8 See_Comment [Aut omated message] The = Monocytes #) system which generated this result tra nsmitted reference range : <=0.8. The reference r eric was not used to int erpret this result as normal/abnormal . [facility] [id number] 18:55:00 Test Item Value Reference Range Interpretation Comments Eosinophils # (test code 0.1 See_Comment [A utomated message] The = Eosinophils #) system whic h generated this result tra nsmitted reference range : <=0.5. The reference r eric was not used to int erpret this result as normal/abnormal . [facility] [id number] 18:55:00 Test Item Value Reference Range Interpretation Comments Troponin-I (test code no gt See_Comment [Auto mated message] The = Troponin-I) system which g enerated this result transmit thelma reference range : <=0.40. The reference r eric was not used to interpr et this result as zana l/abnormal. [facility] [employer] [id number] 18:55:00 Test Item Value Reference Range Interpretation Comments Glucose Lvl (test code = Glucose Lvl) 113 70-99 [place] 078530-02-06 18:55:00 Test Item Value Reference Range Interpretation Comments BUN (test code = BUN) 26 7-22 [place] [address]-02-06 18:55:00 Test Item Value Reference Range Interpretation Comments Creatinine Lvl (test code = Creatinine 0.82 0.50-1.40 Lvl) [place] 078530-02-06 18:55:00 Test Item Value Reference Range Interpretation Comments Sodium Lvl (test code = Sodium Lvl) 140 135-145 [place] [address]-02-06 18:55:00 Test Item Value Reference Range Interpretation Comments Potassium Lvl (test code = Potassium 3.8 3.5-5.1 Lvl) [facility] ManagerB[place] [id number] 18:55:00 Test Item Value Reference Range Interpretation Comments Chloride Lvl (test code = Chloride Lvl) 104 95-109 [place] 078530-02-06 18:55:00 Test Item Value Reference Range Interpretation Comments CO2 (test code = CO2) 30 24-32 [place] [address]-02-06 18:55:00 Test Item Value Reference Range Interpretation Comments Calcium Lvl (test code = Calcium Lvl) 9.7 8.5-10.5 [facility] [id number] 18:55:00 Test Item Value Reference Range Interpretation Comments Total Protein (test code = Total 7.3 6.4-8.4 Protein) [place] [address]-02-06 18:55:00 Test Item Value Reference Range Interpretation Comments Albumin Lvl (test code = Albumin Lvl) 3.4 3.5-5.0 [place] [address]-02-06 18:55:00 Test Item Value Reference Range Interpretation Comments ALT (test code = ALT) 18 See_Comment [Auto mated message] The system which ge nerated this result transmit thelma reference range : <=65. The reference range was not used to interpr et this result as zana l/abnormal. [facility]2020-02-06 18:55:00 Test Item Value Reference Range Interpretation Comments AST (test code = AST) 17 See_Comment [Auto mated message] The system which ge nerated this result transmit thelma reference range : <=37. The reference range was not used to interpr et this result as zana l/abnormal. [place] 078530-02-06 18:55:00 Test Item Value Reference Range Interpretation Comments Alk Phos (test code = Alk Phos) 66 39-136 [facility]2020-02-06 18:55:00 Test Item Value Reference Range Interpretation Comments Bili Total (test code = Bili Total) 0.4 0.2-1.3 [place] [address]-02-06 18:55:00 Test Item Value Reference Range Interpretation Comments AGAP (test code = AGAP) 9.8 10.0-20.0 [place] [address]-02-06 18:55:00 Test Item Value Reference Range Interpretation Comments B/C Ratio (test code = B/C Ratio) 32 1 6-25 [facility]2020-02-06 18:55:00 Test Item Value Reference Range Interpretation Comments Globulin (test code = Globulin) 3.9 2.7-4.2 [place] 078530-02-06 18:55:00 Test Item Value Reference Range Interpretation Comments A/G Ratio (test code = A/G Ratio) 0.9 1 0.7-1.6 [place] [address]-02-06 18:55:00 Test Item Value Reference Range Interpretation Comments eGFR (test code = eGFR) 71 [facility]2020-02-06 18:55:00 Test Item Value Reference Range Interpretation Comments Lipase Lvl (test code = Lipase Lvl) 271 73-393 [place] 078530-02-06 18:55:00 Test Item Value Reference Range Interpretation Comments Lactic Acid Lvl (test code = Lactic 1.1 0.5-2.2 Acid Lvl) [id number] 18:55:00 Test Item Value Reference Range Interpretation Comments WBC (test code = WBC) 14.3 3.7-10.4 [place] [address]-02-06 18:55:00 Test Item Value Reference Range Interpretation Comments RBC (test code = RBC) 4.34 4.20-5.40 [place] [address]-02-06 18:55:00 Test Item Value Reference Range Interpretation Comments Hgb (test code = Hgb) 11.4 12.0-16.0 [place] [address]-02-06 18:55:00 Test Item Value Reference Range Interpretation Comments Hct (test code = Hct) 35.6 36.0-48.0 [place] [address]-02-06 18:55:00 Test Item Value Reference Range Interpretation Comments MCV (test code = MCV) 82.1 80.0-98.0 [place] [address]-02-06 18:55:00 Test Item Value Reference Range Interpretation Comments MCH (test code = MCH) 26.4 pg 27.0-31.0 [place] [address]-02-06 18:55:00 Test Item Value Reference Range Interpretation Comments MCHC (test code = MCHC) 32.1 32.0-36.0 [place] [address]-02-06 18:55:00 Test Item Value Reference Range Interpretation Comments RDW (test code = RDW) 15.2 11.5-14.5 [place] [address]-02-06 18:55:00 Test Item Value Reference Range Interpretation Comments Platelet (test code = Platelet) 349 133-450 [facility]OvvhftvIMGJHVUBPM3709-59-56 18:55:00 Test Item Value Reference Range Interpretation Comments MPV (test code = MPV) 8.1 7.4-10.4 [place] [address]-02-06 18:55:00 Test Item Value Reference Range Interpretation Comments PT (test code = PT) 14.0 s 12.0-14.7 [place] [address]-02-06 18:55:00 Test Item Value Reference Range Interpretation Comments INR (test code = INR) 1.08 1 0.85-1.17 [place] [address]-02-06 18:55:00 Test Item Value Reference Range Interpretation Comments Segs (test code = Segs) 85.8 45.0-75.0 [place] [address]-02-06 18:55:00 Test Item Value Reference Range Interpretation Comments Lymphocytes (test code = Lymphocytes) 7.6 20.0-40.0 [facility]iscoRhdjklkRDPFBQUAIF9801-53-36 18:55:00 Test Item Value Reference Range Interpretation Comments Monocytes (test code = Monocytes) 5.9 2.0-12.0 [facility]iscoKfpvtrxLMAIFDVKKU3982-01-86 18:55:00 Test Item Value Reference Range Interpretation Comments Eosinophils (test code = 0.4 See_Comment [A utomated message] The Eosinophils) system which ge nerated this result tra nsmitted reference range : <=4.0. The reference r eric was not used to int erpret this result as normal/abnormal . [facility]iscoWgdmzckPZUOMJVXYX0415-29-79 18:55:00 Test Item Value Reference Range Interpretation Comments Basophils (test code = 0.3 See_Comment [Aut omated message] The Basophils) system which ge nerated this result tra nsmitted reference range : <=1.0. The reference r eric was not used to int erpret this result as normal/abnormal . [facility]iscoCpqwitsYFNBBYAYVG3109-72-66 18:55:00 Test Item Value Reference Range Interpretation Comments Neutrophils # (test code = Neutrophils 12.3 1.5-8.1 #) [facility]iscoQlgrhycUEAMOAHVDS6209-34-01 18:55:00 Test Item Value Reference Range Interpretation Comments Lymphocytes # (test code = Lymphocytes 1.1 1.0-5.5 #) [facility]iscoXmvdxckNOUFQFJCDY5286-83-72 18:55:00 Test Item Value Reference Range Interpretation Comments Monocytes # (test code 0.8 See_Comment [Aut omated message] The = Monocytes #) system which generated this result tra nsmitted reference range : <=0.8. The reference r eric was not used to int erpret this result as normal/abnormal . [facility]iscoHyiaerqRVPEQKMPXY4372-72-26 18:55:00 Test Item Value Reference Range Interpretation Comments Eosinophils # (test code 0.1 See_Comment [A utomated message] The = Eosinophils #) system whic h generated this result tra nsmitted reference range : <=0.5. The reference r eric was not used to int erpret this result as normal/abnormal . [facility] [id number] 18:55:00 Test Item Value Reference Range Interpretation Comments Troponin-I (test code no gt See_Comment [Auto mated message] The = Troponin-I) system which g enerated this result transmit thelma reference range : <=0.40. The reference r eric was not used to interpr et this result as zana l/abnormal. [place] 078530-02-06 18:55:00 Test Item Value Reference Range Interpretation Comments Glucose Lvl (test code = Glucose Lvl) 113 70-99 [place] 078530-02-06 18:55:00 Test Item Value Reference Range Interpretation Comments BUN (test code = BUN) 26 7-22 [place] 078530-02-06 18:55:00 Test Item Value Reference Range Interpretation Comments Creatinine Lvl (test code = Creatinine 0.82 0.50-1.40 Lvl) [place] 078530-02-06 18:55:00 Test Item Value Reference Range Interpretation Comments Sodium Lvl (test code = Sodium Lvl) 140 135-145 [place] 078530-02-06 18:55:00 Test Item Value Reference Range Interpretation Comments Potassium Lvl (test code = Potassium 3.8 3.5-5.1 Lvl) [place] 078530-02-06 18:55:00 Test Item Value Reference Range Interpretation Comments Chloride Lvl (test code = Chloride Lvl) 104 95-109 [place] 078530-02-06 18:55:00 Test Item Value Reference Range Interpretation Comments CO2 (test code = CO2) 30 24-32 [place] 078530-02-06 18:55:00 Test Item Value Reference Range Interpretation Comments Calcium Lvl (test code = Calcium Lvl) 9.7 8.5-10.5 [place] 078530-02-06 18:55:00 Test Item Value Reference Range Interpretation Comments Total Protein (test code = Total 7.3 6.4-8.4 Protein) [place] 078530-02-06 18:55:00 Test Item Value Reference Range Interpretation Comments Albumin Lvl (test code = Albumin Lvl) 3.4 3.5-5.0 [place] 078530-02-06 18:55:00 Test Item Value Reference Range Interpretation Comments ALT (test code = ALT) 18 See_Comment [Auto mated message] The system which ge nerated this result transmit thelma reference range : <=65. The reference range was not used to interpr et this result as zana l/abnormal. [facility] [id number] 18:55:00 Test Item Value Reference Range Interpretation Comments AST (test code = AST) 17 See_Comment [Auto mated message] The system which ge nerated this result transmit thelma reference range : <=37. The reference range was not used to interpr et this result as zana l/abnormal. [facility] [id number] 18:55:00 Test Item Value Reference Range Interpretation Comments Alk Phos (test code = Alk Phos) 66 39-136 [facility] [id number] 18:55:00 Test Item Value Reference Range Interpretation Comments Bili Total (test code = Bili Total) 0.4 0.2-1.3 [facility] [id number] 18:55:00 Test Item Value Reference Range Interpretation Comments AGAP (test code = AGAP) 9.8 10.0-20.0 [facility] [id number] 18:55:00 Test Item Value Reference Range Interpretation Comments B/C Ratio (test code = B/C Ratio) 32 1 6-25 [facility] [id number] 18:55:00 Test Item Value Reference Range Interpretation Comments Globulin (test code = Globulin) 3.9 2.7-4.2 [facility] [id number] 18:55:00 Test Item Value Reference Range Interpretation Comments A/G Ratio (test code = A/G Ratio) 0.9 1 0.7-1.6 [facility] [id number] 18:55:00 Test Item Value Reference Range Interpretation Comments eGFR (test code = eGFR) 71 [facility] [id number] 18:55:00 Test Item Value Reference Range Interpretation Comments Lipase Lvl (test code = Lipase Lvl) 271 73-393 [facility] [employer] [id number] 18:55:00 Test Item Value Reference Range Interpretation Comments Lactic Acid Lvl (test code = Lactic 1.1 0.5-2.2 Acid Lvl) [facility]iscoCldunngWLXHVHTXOP2687-02-71 18:55:00 Test Item Value Reference Range Interpretation Comments WBC (test code = WBC) 14.3 3.7-10.4 [facility]iscoOjziryzJNYUTZJGKA6275-83-31 18:55:00 Test Item Value Reference Range Interpretation Comments RBC (test code = RBC) 4.34 4.20-5.40 [place] [address]-02-06 18:55:00 Test Item Value Reference Range Interpretation Comments Hgb (test code = Hgb) 11.4 12.0-16.0 [place] 316000-02-06 18:55:00 Test Item Value Reference Range Interpretation Comments Hct (test code = Hct) 35.6 36.0-48.0 [facility]iscoRoblnuzLCUEFQIJVA4105-85-86 18:55:00 Test Item Value Reference Range Interpretation Comments MCV (test code = MCV) 82.1 80.0-98.0 [place] [address]-02-06 18:55:00 Test Item Value Reference Range Interpretation Comments MCH (test code = MCH) 26.4 pg 27.0-31.0 [id number] 18:55:00 Test Item Value Reference Range Interpretation Comments MCHC (test code = MCHC) 32.1 32.0-36.0 [facility]iscoUqmlakcNQVSOZDUAE6202-77-61 18:55:00 Test Item Value Reference Range Interpretation Comments RDW (test code = RDW) 15.2 11.5-14.5 [id number] 18:55:00 Test Item Value Reference Range Interpretation Comments Platelet (test code = Platelet) 349 133-450 [id number] 18:55:00 Test Item Value Reference Range Interpretation Comments MPV (test code = MPV) 8.1 7.4-10.4 [facility]iscoBdscbudHWRUWPGJUK5503-21-37 18:55:00 Test Item Value Reference Range Interpretation Comments PT (test code = PT) 14.0 s 12.0-14.7 [facility]iscoFmqdgfgFPBBFBYZIW7418-28-56 18:55:00 Test Item Value Reference Range Interpretation Comments INR (test code = INR) 1.08 1 0.85-1.17 [facility]iscoKucldhhYIVYQZOFAW0446-93-40 18:55:00 Test Item Value Reference Range Interpretation Comments Segs (test code = Segs) 85.8 45.0-75.0 [facility]iscoFszdioaARSKUQMRJR8288-21-16 18:55:00 Test Item Value Reference Range Interpretation Comments Lymphocytes (test code = Lymphocytes) 7.6 20.0-40.0 [place] 316000-02-06 18:55:00 Test Item Value Reference Range Interpretation Comments Monocytes (test code = Monocytes) 5.9 2.0-12.0 [place] 316000-02-06 18:55:00 Test Item Value Reference Range Interpretation Comments Eosinophils (test code = 0.4 See_Comment [A utomated message] The Eosinophils) system which ge nerated this result tra nsmitted reference range : <=4.0. The reference r eric was not used to int erpret this result as normal/abnormal . [facility]iscoKfyqyqhBRLCOKPOBP3597-18-21 18:55:00 Test Item Value Reference Range Interpretation Comments Basophils (test code = 0.3 See_Comment [Aut omated message] The Basophils) system which ge nerated this result tra nsmitted reference range : <=1.0. The reference r eric was not used to int erpret this result as normal/abnormal . [facility]iscoMkaqaqwODIPDLARXP8176-56-55 18:55:00 Test Item Value Reference Range Interpretation Comments Neutrophils # (test code = Neutrophils 12.3 1.5-8.1 #) [facility]iscoLibdnxqTPFPWYNNLY2496-42-66 18:55:00 Test Item Value Reference Range Interpretation Comments Lymphocytes # (test code = Lymphocytes 1.1 1.0-5.5 #) [place] 316000-02-06 18:55:00 Test Item Value Reference Range Interpretation Comments Monocytes # (test code 0.8 See_Comment [Aut omated message] The = Monocytes #) system which generated this result tra nsmitted reference range : <=0.8. The reference r eric was not used to int erpret this result as normal/abnormal . [place] 316000-02-06 18:55:00 Test Item Value Reference Range Interpretation Comments Eosinophils # (test code 0.1 See_Comment [A utomated message] The = Eosinophils #) system ic h generated this result tra nsmitted reference range : <=0.5. The reference r eric was not used to int erpret this result as normal/abnormal . [facility]Project ManagerCARDIAC [id number] 18:55:00 Test Item Value Reference Range Interpretation Comments Troponin-I (test code no gt See_Comment [Auto mated message] The = Troponin-I) system which g enerated this result transmit thelma reference range : <=0.40. The reference r eric was not used to interpr et this result as zana l/abnormal. [facility] [employer] [id number] 18:55:00 Test Item Value Reference Range Interpretation Comments Glucose Lvl (test code = Glucose Lvl) 113 70-99 [facility] [id number] 18:55:00 Test Item Value Reference Range Interpretation Comments BUN (test code = BUN) 26 7-22 [facility] [id number] 18:55:00 Test Item Value Reference Range Interpretation Comments Creatinine Lvl (test code = Creatinine 0.82 0.50-1.40 Lvl) [facility] [id number] 18:55:00 Test Item Value Reference Range Interpretation Comments Sodium Lvl (test code = Sodium Lvl) 140 135-145 [facility] [id number] 18:55:00 Test Item Value Reference Range Interpretation Comments Potassium Lvl (test code = Potassium 3.8 3.5-5.1 Lvl) [facility] [employer] [id number] 18:55:00 Test Item Value Reference Range Interpretation Comments Chloride Lvl (test code = Chloride Lvl) 104 95-109 [facility] [employer] [id number] 18:55:00 Test Item Value Reference Range Interpretation Comments CO2 (test code = CO2) 30 24-32 [facility] [employer] [id number] 18:55:00 Test Item Value Reference Range Interpretation Comments Calcium Lvl (test code = Calcium Lvl) 9.7 8.5-10.5 [facility] [employer] [id number] 18:55:00 Test Item Value Reference Range Interpretation Comments Total Protein (test code = Total 7.3 6.4-8.4 Protein) [facility] [id number] 18:55:00 Test Item Value Reference Range Interpretation Comments Albumin Lvl (test code = Albumin Lvl) 3.4 3.5-5.0 [facility] [employer] [id number] 18:55:00 Test Item Value Reference Range Interpretation Comments ALT (test code = ALT) 18 See_Comment [Auto mated message] The system which ge nerated this result transmit thelma reference range : <=65. The reference range was not used to interpr et this result as zana l/abnormal. [employer] [id number] 18:55:00 Test Item Value Reference Range Interpretation Comments AST (test code = AST) 17 See_Comment [Auto mated message] The system which ge nerated this result transmit thelma reference range : <=37. The reference range was not used to interpr et this result as zana l/abnormal. [employer]2020-02-06 18:55:00 Test Item Value Reference Range Interpretation Comments Alk Phos (test code = Alk Phos) 66 39-136 [facility] [place] [employer] [id number] 18:55:00 Test Item Value Reference Range Interpretation Comments Bili Total (test code = Bili Total) 0.4 0.2-1.3 [facility] [place] [employer]2020-02-06 18:55:00 Test Item Value Reference Range Interpretation Comments AGAP (test code = AGAP) 9.8 10.0-20.0 [facility] [place] [employer]2020-02-06 18:55:00 Test Item Value Reference Range Interpretation Comments B/C Ratio (test code = B/C Ratio) 32 1 6-25 [facility] [place] [employer] [id number] 18:55:00 Test Item Value Reference Range Interpretation Comments Globulin (test code = Globulin) 3.9 2.7-4.2 [facility] [place] [employer]2020-02-06 18:55:00 Test Item Value Reference Range Interpretation Comments A/G Ratio (test code = A/G Ratio) 0.9 1 0.7-1.6 [facility] [place] [employer]0-02-06 18:55:00 Test Item Value Reference Range Interpretation Comments eGFR (test code = eGFR) 71 [facility] [place] [employer]2020-02-06 18:55:00 Test Item Value Reference Range Interpretation Comments Lipase Lvl (test code = Lipase Lvl) 271 73-393 [facility] [place] [employer] [id number] 18:55:00 Test Item Value Reference Range Interpretation Comments Lactic Acid Lvl (test code = Lactic 1.1 0.5-2.2 Acid Lvl) [facility]70 18:55:00 Test Item Value Reference Range Interpretation Comments WBC (test code = WBC) 14.3 3.7-10.4 [facility]XvczndsQNAOVWDUDO0601-00-54 18:55:00 Test Item Value Reference Range Interpretation Comments RBC (test code = RBC) 4.34 4.20-5.40 [facility]MhzhdheGYZMCMPHSY3721-03-47 18:55:00 Test Item Value Reference Range Interpretation Comments Hgb (test code = Hgb) 11.4 12.0-16.0 [facility]GmvtwcpJCQHSUHHGO0974-35-38 18:55:00 Test Item Value Reference Range Interpretation Comments Hct (test code = Hct) 35.6 36.0-48.0 [facility]PrjgpdxQNHDGITOIG0785-13-71 18:55:00 Test Item Value Reference Range Interpretation Comments MCV (test code = MCV) 82.1 80.0-98.0 [facility]OdkgdrdORZKPKKCAM9208-70-96 18:55:00 Test Item Value Reference Range Interpretation Comments MCH (test code = MCH) 26.4 pg 27.0-31.0 [facility]iscoYnlsiutBFNPPOQRVL9125-58-34 18:55:00 Test Item Value Reference Range Interpretation Comments MCHC (test code = MCHC) 32.1 32.0-36.0 [facility]KqvpogiRWFSTYDOSF0523-14-38 18:55:00 Test Item Value Reference Range Interpretation Comments RDW (test code = RDW) 15.2 11.5-14.5 [facility]WfjjvuzKVSXEBGMUE3124-59-60 18:55:00 Test Item Value Reference Range Interpretation Comments Platelet (test code = Platelet) 349 133-450 [facility]JrujumgOYUVKRFJHL7471-61-98 18:55:00 Test Item Value Reference Range Interpretation Comments MPV (test code = MPV) 8.1 7.4-10.4 [place] 316000-02-06 18:55:00 Test Item Value Reference Range Interpretation Comments PT (test code = PT) 14.0 s 12.0-14.7 [facility]iscoTvxhinyWSRORYGAYB1257-00-86 18:55:00 Test Item Value Reference Range Interpretation Comments INR (test code = INR) 1.08 1 0.85-1.17 [place] [address]-02-06 18:55:00 Test Item Value Reference Range Interpretation Comments Segs (test code = Segs) 85.8 45.0-75.0 [place] [address]-02-06 18:55:00 Test Item Value Reference Range Interpretation Comments Lymphocytes (test code = Lymphocytes) 7.6 20.0-40.0 [place] [address]-02-06 18:55:00 Test Item Value Reference Range Interpretation Comments Monocytes (test code = Monocytes) 5.9 2.0-12.0 [place] [address]-02-06 18:55:00 Test Item Value Reference Range Interpretation Comments Eosinophils (test code = 0.4 See_Comment [A utomated message] The Eosinophils) system which ge nerated this result tra nsmitted reference range : <=4.0. The reference r eric was not used to int erpret this result as normal/abnormal . [facility]2020-01-22 11:45:00 Test Item Value Reference Range Interpretation Comments Glucose Lvl (test code = Glucose Lvl) 111 70-99 [facility]2020-01-22 11:45:00 Test Item Value Reference Range Interpretation Comments BUN (test code = BUN) 15 7-22 [place] 078530-01-22 11:45:00 Test Item Value Reference Range Interpretation Comments Creatinine Lvl (test code = Creatinine 0.72 0.50-1.40 Lvl) [facility]2020-01-22 11:45:00 Test Item Value Reference Range Interpretation Comments Sodium Lvl (test code = Sodium Lvl) 141 135-145 [place] 078530-01-22 11:45:00 Test Item Value Reference Range Interpretation Comments Potassium Lvl (test code = Potassium 3.4 3.5-5.1 Lvl) [place] 078530-01-22 11:45:00 Test Item Value Reference Range Interpretation Comments Chloride Lvl (test code = Chloride Lvl) 109 95-109 [place] 078530-01-22 11:45:00 Test Item Value Reference Range Interpretation Comments CO2 (test code = CO2) 26 24-32 [place] 078530-01-22 11:45:00 Test Item Value Reference Range Interpretation Comments AGAP (test code = AGAP) 9.4 10.0-20.0 [facility]2020-01-22 11:45:00 Test Item Value Reference Range Interpretation Comments Calcium Lvl (test code = Calcium Lvl) 8.4 8.5-10.5 [facility]2020-01-22 11:45:00 Test Item Value Reference Range Interpretation Comments eGFR (test code = eGFR) 84 [facility]XaybvkkZTOEUKKKPR1742-18-39 11:45:00 Test Item Value Reference Range Interpretation Comments WBC (test code = WBC) 8.8 3.7-10.4 [place] 316000-01-22 11:45:00 Test Item Value Reference Range Interpretation Comments RBC (test code = RBC) 3.92 4.20-5.40 [place] 316000-01-22 11:45:00 Test Item Value Reference Range Interpretation Comments Hgb (test code = Hgb) 10.3 12.0-16.0 [place] 316000-01-22 11:45:00 Test Item Value Reference Range Interpretation Comments Hct (test code = Hct) 31.8 36.0-48.0 [place] 316000-01-22 11:45:00 Test Item Value Reference Range Interpretation Comments MCV (test code = MCV) 81.3 80.0-98.0 [place] 316000-01-22 11:45:00 Test Item Value Reference Range Interpretation Comments MCH (test code = MCH) 26.3 pg 27.0-31.0 [place] 316000-01-22 11:45:00 Test Item Value Reference Range Interpretation Comments MCHC (test code = MCHC) 32.3 32.0-36.0 [place] 316000-01-22 11:45:00 Test Item Value Reference Range Interpretation Comments RDW (test code = RDW) 14.2 11.5-14.5 [place] 316000-01-22 11:45:00 Test Item Value Reference Range Interpretation Comments Platelet (test code = Platelet) 272 133-450 [place] 316000-01-22 11:45:00 Test Item Value Reference Range Interpretation Comments MPV (test code = MPV) 8.1 7.4-10.4 [place] 316000-01-22 11:45:00 Test Item Value Reference Range Interpretation Comments Segs (test code = Segs) 67.0 45.0-75.0 [place] 316000-01-22 11:45:00 Test Item Value Reference Range Interpretation Comments Lymphocytes (test code = Lymphocytes) 21.6 20.0-40.0 [place] 316000-01-22 11:45:00 Test Item Value Reference Range Interpretation Comments Monocytes (test code = Monocytes) 8.2 2.0-12.0 [place] 316000-01-22 11:45:00 Test Item Value Reference Range Interpretation Comments Eosinophils (test code = 2.5 See_Comment [A utomated message] The Eosinophils) system which ge nerated this result tra nsmitted reference range : <=4.0. The reference r eric was not used to int erpret this result as normal/abnormal . [place] 316000-01-22 11:45:00 Test Item Value Reference Range Interpretation Comments Basophils (test code = 0.7 See_Comment [Aut omated message] The Basophils) system which ge nerated this result tra nsmitted reference range : <=1.0. The reference r eric was not used to int erpret this result as normal/abnormal . [place] 316000-01-22 11:45:00 Test Item Value Reference Range Interpretation Comments Neutrophils # (test code = Neutrophils 5.9 1.5-8.1 #) [place] 316000-01-22 11:45:00 Test Item Value Reference Range Interpretation Comments Lymphocytes # (test code = Lymphocytes 1.9 1.0-5.5 #) [place] 316000-01-22 11:45:00 Test Item Value Reference Range Interpretation Comments Monocytes # (test code 0.7 See_Comment [Aut omated message] The = Monocytes #) system which generated this result tra nsmitted reference range : <=0.8. The reference r eric was not used to int erpret this result as normal/abnormal . [place] 316000-01-22 11:45:00 Test Item Value Reference Range Interpretation Comments Eosinophils # (test code 0.2 See_Comment [A utomated message] The = Eosinophils #) system wh h generated this result tra nsmitted reference range : <=0.5. The reference r eric was not used to int erpret this result as normal/abnormal . [place] 316000-01-22 11:45:00 Test Item Value Reference Range Interpretation Comments Basophils # (test code 0.1 See_Comment [Aut omated message] The = Basophils #) system which generated this result tra nsmitted reference range : <=0.2. The reference r eric was not used to int erpret this result as normal/abnormal . [facility]2020-01-22 11:45:00 Test Item Value Reference Range Interpretation Comments Glucose Lvl (test code = Glucose Lvl) 111 70-99 [place] 078530-01-22 11:45:00 Test Item Value Reference Range Interpretation Comments BUN (test code = BUN) 15 7-22 [place] 078530-01-22 11:45:00 Test Item Value Reference Range Interpretation Comments Creatinine Lvl (test code = Creatinine 0.72 0.50-1.40 Lvl) [facility]2020-01-22 11:45:00 Test Item Value Reference Range Interpretation Comments Sodium Lvl (test code = Sodium Lvl) 141 135-145 [place] 078530-01-22 11:45:00 Test Item Value Reference Range Interpretation Comments Potassium Lvl (test code = Potassium 3.4 3.5-5.1 Lvl) [facility]2020-01-22 11:45:00 Test Item Value Reference Range Interpretation Comments Chloride Lvl (test code = Chloride Lvl) 109 95-109 [facility]2020-01-22 11:45:00 Test Item Value Reference Range Interpretation Comments CO2 (test code = CO2) 26 24-32 [place] 078530-01-22 11:45:00 Test Item Value Reference Range Interpretation Comments AGAP (test code = AGAP) 9.4 10.0-20.0 [place] 078530-01-22 11:45:00 Test Item Value Reference Range Interpretation Comments Calcium Lvl (test code = Calcium Lvl) 8.4 8.5-10.5 [place] 078530-01-22 11:45:00 Test Item Value Reference Range Interpretation Comments eGFR (test code = eGFR) 84 [place] 316000-01-22 11:45:00 Test Item Value Reference Range Interpretation Comments WBC (test code = WBC) 8.8 3.7-10.4 [facility]AnslgwzEZOQBOPGBY4697-07-90 11:45:00 Test Item Value Reference Range Interpretation Comments RBC (test code = RBC) 3.92 4.20-5.40 [facility]JqqwehmSCLDPXOGBJ2859-01-58 11:45:00 Test Item Value Reference Range Interpretation Comments Hgb (test code = Hgb) 10.3 12.0-16.0 [facility]iscoEjnuiyvHUZXGYRFPQ5169-14-03 11:45:00 Test Item Value Reference Range Interpretation Comments Hct (test code = Hct) 31.8 36.0-48.0 [facility]iscoOhfibzxVPSXBJSYUX2489-70-09 11:45:00 Test Item Value Reference Range Interpretation Comments MCV (test code = MCV) 81.3 80.0-98.0 [facility]iscoTteytqyZAXVJGSZVA0501-69-64 11:45:00 Test Item Value Reference Range Interpretation Comments MCH (test code = MCH) 26.3 pg 27.0-31.0 [facility]XdsxdxeZJYIPICSFJ8467-23-85 11:45:00 Test Item Value Reference Range Interpretation Comments MCHC (test code = MCHC) 32.3 32.0-36.0 [facility]iscoQdpunhePZSIVZEGGL6227-74-56 11:45:00 Test Item Value Reference Range Interpretation Comments RDW (test code = RDW) 14.2 11.5-14.5 [facility]iscoFaudfhlKUJOGEDATD9189-11-57 11:45:00 Test Item Value Reference Range Interpretation Comments Platelet (test code = Platelet) 272 133-450 [facility]iscoHprcnhrDXKMFNRAPM5990-26-74 11:45:00 Test Item Value Reference Range Interpretation Comments MPV (test code = MPV) 8.1 7.4-10.4 [facility]iscoHsikfpsIHXYZSRCYS2466-76-75 11:45:00 Test Item Value Reference Range Interpretation Comments Segs (test code = Segs) 67.0 45.0-75.0 [facility]iscoYxtrikvULJXYWELYT9295-26-26 11:45:00 Test Item Value Reference Range Interpretation Comments Lymphocytes (test code = Lymphocytes) 21.6 20.0-40.0 [facility]iscoQwbaljkCMXZMCGVTE9260-60-19 11:45:00 Test Item Value Reference Range Interpretation Comments Monocytes (test code = Monocytes) 8.2 2.0-12.0 [place] 316000-01-22 11:45:00 Test Item Value Reference Range Interpretation Comments Eosinophils (test code = 2.5 See_Comment [A utomated message] The Eosinophils) system which ge nerated this result tra nsmitted reference range : <=4.0. The reference r eric was not used to int erpret this result as normal/abnormal . [place] 316000-01-22 11:45:00 Test Item Value Reference Range Interpretation Comments Basophils (test code = 0.7 See_Comment [Aut omated message] The Basophils) system which ge nerated this result tra nsmitted reference range : <=1.0. The reference r eric was not used to int erpret this result as normal/abnormal . [place] 316000-01-22 11:45:00 Test Item Value Reference Range Interpretation Comments Neutrophils # (test code = Neutrophils 5.9 1.5-8.1 #) [place] 316000-01-22 11:45:00 Test Item Value Reference Range Interpretation Comments Lymphocytes # (test code = Lymphocytes 1.9 1.0-5.5 #) [place] 316000-01-22 11:45:00 Test Item Value Reference Range Interpretation Comments Monocytes # (test code 0.7 See_Comment [Aut omated message] The = Monocytes #) system which generated this result tra nsmitted reference range : <=0.8. The reference r eric was not used to int erpret this result as normal/abnormal . [place] 316000-01-22 11:45:00 Test Item Value Reference Range Interpretation Comments Eosinophils # (test code 0.2 See_Comment [A utomated message] The = Eosinophils #) system whic h generated this result tra nsmitted reference range : <=0.5. The reference r eric was not used to int erpret this result as normal/abnormal . [place] 316000-01-22 11:45:00 Test Item Value Reference Range Interpretation Comments Basophils # (test code 0.1 See_Comment [Aut omated message] The = Basophils #) system which generated this result tra nsmitted reference range : <=0.2. The reference r eric was not used to int erpret this result as normal/abnormal . [place] 078530-01-22 11:45:00 Test Item Value Reference Range Interpretation Comments Glucose Lvl (test code = Glucose Lvl) 111 70-99 [place] 078530-01-22 11:45:00 Test Item Value Reference Range Interpretation Comments BUN (test code = BUN) 15 7-22 [place] 078530-01-22 11:45:00 Test Item Value Reference Range Interpretation Comments Creatinine Lvl (test code = Creatinine 0.72 0.50-1.40 Lvl) [place] 078530-01-22 11:45:00 Test Item Value Reference Range Interpretation Comments Sodium Lvl (test code = Sodium Lvl) 141 135-145 [place] 078530-01-22 11:45:00 Test Item Value Reference Range Interpretation Comments Potassium Lvl (test code = Potassium 3.4 3.5-5.1 Lvl) [place] 078530-01-22 11:45:00 Test Item Value Reference Range Interpretation Comments Chloride Lvl (test code = Chloride Lvl) 109 95-109 [place] 078530-01-22 11:45:00 Test Item Value Reference Range Interpretation Comments CO2 (test code = CO2) 26 24-32 [place] 078530-01-22 11:45:00 Test Item Value Reference Range Interpretation Comments AGAP (test code = AGAP) 9.4 10.0-20.0 [place] 078530-01-22 11:45:00 Test Item Value Reference Range Interpretation Comments Calcium Lvl (test code = Calcium Lvl) 8.4 8.5-10.5 [facility]2020-01-22 11:45:00 Test Item Value Reference Range Interpretation Comments eGFR (test code = eGFR) 84 [place] 316000-01-22 11:45:00 Test Item Value Reference Range Interpretation Comments WBC (test code = WBC) 8.8 3.7-10.4 [place] 316000-01-22 11:45:00 Test Item Value Reference Range Interpretation Comments RBC (test code = RBC) 3.92 4.20-5.40 [place] 316000-01-22 11:45:00 Test Item Value Reference Range Interpretation Comments Hgb (test code = Hgb) 10.3 12.0-16.0 [facility]CncdogwOPWQKVIGSB6553-12-57 11:45:00 Test Item Value Reference Range Interpretation Comments Hct (test code = Hct) 31.8 36.0-48.0 [facility]iscoTgtouapJGOCTTUVRZ1672-32-03 11:45:00 Test Item Value Reference Range Interpretation Comments MCV (test code = MCV) 81.3 80.0-98.0 [facility]iscoGrehfiqOKYWTGROLL6908-92-03 11:45:00 Test Item Value Reference Range Interpretation Comments MCH (test code = MCH) 26.3 pg 27.0-31.0 [facility]iscoJqajdyrWETDAZTOFE3384-66-71 11:45:00 Test Item Value Reference Range Interpretation Comments MCHC (test code = MCHC) 32.3 32.0-36.0 [facility]iscoBtzwwgxZMZUADXIAN6119-12-78 11:45:00 Test Item Value Reference Range Interpretation Comments RDW (test code = RDW) 14.2 11.5-14.5 [facility]iscoIptnlhaRCSSWYCFHE6088-67-13 11:45:00 Test Item Value Reference Range Interpretation Comments Platelet (test code = Platelet) 272 133-450 [facility]iscoAaadmyoPXNFUKZKYH6448-75-23 11:45:00 Test Item Value Reference Range Interpretation Comments MPV (test code = MPV) 8.1 7.4-10.4 [facility]iscoHtfkkxmKFCGUVMJIO2931-37-12 11:45:00 Test Item Value Reference Range Interpretation Comments Segs (test code = Segs) 67.0 45.0-75.0 [place] 316000-01-22 11:45:00 Test Item Value Reference Range Interpretation Comments Lymphocytes (test code = Lymphocytes) 21.6 20.0-40.0 [place] 316000-01-22 11:45:00 Test Item Value Reference Range Interpretation Comments Monocytes (test code = Monocytes) 8.2 2.0-12.0 [place] [address]-01-22 11:45:00 Test Item Value Reference Range Interpretation Comments Eosinophils (test code = 2.5 See_Comment [A utomated message] The Eosinophils) system which ge nerated this result tra nsmitted reference range : <=4.0. The reference r eric was not used to int erpret this result as normal/abnormal . [place] 316000-01-22 11:45:00 Test Item Value Reference Range Interpretation Comments Basophils (test code = 0.7 See_Comment [Aut omated message] The Basophils) system which ge nerated this result tra nsmitted reference range : <=1.0. The reference r eric was not used to int erpret this result as normal/abnormal . [place] 316000-01-22 11:45:00 Test Item Value Reference Range Interpretation Comments Neutrophils # (test code = Neutrophils 5.9 1.5-8.1 #) [facility]JxtvoirZLTVXMGWMD5497-13-88 11:45:00 Test Item Value Reference Range Interpretation Comments Lymphocytes # (test code = Lymphocytes 1.9 1.0-5.5 #) [place] 316000-01-22 11:45:00 Test Item Value Reference Range Interpretation Comments Monocytes # (test code 0.7 See_Comment [Aut omated message] The = Monocytes #) system which generated this result tra nsmitted reference range : <=0.8. The reference r eric was not used to int erpret this result as normal/abnormal . [facility]AqlggkdMNVVPFKJZV6835-78-21 11:45:00 Test Item Value Reference Range Interpretation Comments Eosinophils # (test code 0.2 See_Comment [A utomated message] The = Eosinophils #) system whic h generated this result tra nsmitted reference range : <=0.5. The reference r eric was not used to int erpret this result as normal/abnormal . [place] 316000-01-22 11:45:00 Test Item Value Reference Range Interpretation Comments Basophils # (test code 0.1 See_Comment [Aut omated message] The = Basophils #) system which generated this result tra nsmitted reference range : <=0.2. The reference r eric was not used to int erpret this result as normal/abnormal . [id number] 11:50:00 Test Item Value Reference Range Interpretation Comments Glucose Lvl (test code = Glucose Lvl) 62 70-99 [facility] [id number] 11:50:00 Test Item Value Reference Range Interpretation Comments BUN (test code = BUN) 31 7-22 [facility] [id number] 11:50:00 Test Item Value Reference Range Interpretation Comments Creatinine Lvl (test code = Creatinine 0.80 0.50-1.40 Lvl) [place] 078530-01-21 11:50:00 Test Item Value Reference Range Interpretation Comments Sodium Lvl (test code = Sodium Lvl) 140 135-145 [place] 078530-01-21 11:50:00 Test Item Value Reference Range Interpretation Comments Potassium Lvl (test code = Potassium 3.8 3.5-5.1 Lvl) [place] 078530-01-21 11:50:00 Test Item Value Reference Range Interpretation Comments Chloride Lvl (test code = Chloride Lvl) 108 95-109 [place] 078530-01-21 11:50:00 Test Item Value Reference Range Interpretation Comments CO2 (test code = CO2) 27 24-32 [place] 078530-01-21 11:50:00 Test Item Value Reference Range Interpretation Comments Calcium Lvl (test code = Calcium Lvl) 8.7 8.5-10.5 [place] 078530-01-21 11:50:00 Test Item Value Reference Range Interpretation Comments AGAP (test code = AGAP) 8.8 10.0-20.0 [place] 078530-01-21 11:50:00 Test Item Value Reference Range Interpretation Comments eGFR (test code = eGFR) 73 [place] 316000-01-21 11:50:00 Test Item Value Reference Range Interpretation Comments Segs (test code = Segs) 81.6 45.0-75.0 [place] 316000-01-21 11:50:00 Test Item Value Reference Range Interpretation Comments Lymphocytes (test code = Lymphocytes) 11.9 20.0-40.0 [place] [address]-01-21 11:50:00 Test Item Value Reference Range Interpretation Comments Monocytes (test code = Monocytes) 5.5 2.0-12.0 [place] [address]-01-21 11:50:00 Test Item Value Reference Range Interpretation Comments Eosinophils (test code = 0.5 See_Comment [A utomated message] The Eosinophils) system which ge nerated this result tra nsmitted reference range : <=4.0. The reference r eric was not used to int erpret this result as normal/abnormal . [facility]KqlnxyrFJYJLESNNM2322-76-05 11:50:00 Test Item Value Reference Range Interpretation Comments Basophils (test code = 0.5 See_Comment [Aut omated message] The Basophils) system which ge nerated this result tra nsmitted reference range : <=1.0. The reference r eric was not used to int erpret this result as normal/abnormal . [place] 316000-01-21 11:50:00 Test Item Value Reference Range Interpretation Comments Neutrophils # (test code = Neutrophils 12.8 1.5-8.1 #) [facility]YmeduunWAUNIZSYDS2905-43-18 11:50:00 Test Item Value Reference Range Interpretation Comments Lymphocytes # (test code = Lymphocytes 1.9 1.0-5.5 #) [facility]IslbvwlTEOUOZWYDN7030-02-04 11:50:00 Test Item Value Reference Range Interpretation Comments Monocytes # (test code 0.9 See_Comment [Aut omated message] The = Monocytes #) system which generated this result tra nsmitted reference range : <=0.8. The reference r eric was not used to int erpret this result as normal/abnormal . [facility]iscoRegpnjnWXBLPOHNZH6162-48-39 11:50:00 Test Item Value Reference Range Interpretation Comments Eosinophils # (test code 0.1 See_Comment [A utomated message] The = Eosinophils #) system whic h generated this result tra nsmitted reference range : <=0.5. The reference r eric was not used to int erpret this result as normal/abnormal . [facility]iscoCacazidGNARDKKDAA2600-25-71 11:50:00 Test Item Value Reference Range Interpretation Comments Basophils # (test code 0.1 See_Comment [Aut omated message] The = Basophils #) system which generated this result tra nsmitted reference range : <=0.2. The reference r eric was not used to int erpret this result as normal/abnormal . [facility]iscoBpeyfioSTDLZFEMYK8629-10-90 11:50:00 Test Item Value Reference Range Interpretation Comments WBC (test code = WBC) 15.7 3.7-10.4 [place] 316000-01-21 11:50:00 Test Item Value Reference Range Interpretation Comments RBC (test code = RBC) 3.95 4.20-5.40 [place] 316000-01-21 11:50:00 Test Item Value Reference Range Interpretation Comments Hgb (test code = Hgb) 10.2 12.0-16.0 [place] [address]-01-21 11:50:00 Test Item Value Reference Range Interpretation Comments Hct (test code = Hct) 32.3 36.0-48.0 [place] 316000-01-21 11:50:00 Test Item Value Reference Range Interpretation Comments MCV (test code = MCV) 81.9 80.0-98.0 [place] 316000-01-21 11:50:00 Test Item Value Reference Range Interpretation Comments MCH (test code = MCH) 25.9 pg 27.0-31.0 [place] 316000-01-21 11:50:00 Test Item Value Reference Range Interpretation Comments MCHC (test code = MCHC) 31.6 32.0-36.0 [place] 316000-01-21 11:50:00 Test Item Value Reference Range Interpretation Comments RDW (test code = RDW) 14.9 11.5-14.5 [place] 316000-01-21 11:50:00 Test Item Value Reference Range Interpretation Comments Platelet (test code = Platelet) 339 133-450 [place] 316000-01-21 11:50:00 Test Item Value Reference Range Interpretation Comments MPV (test code = MPV) 8.3 7.4-10.4 [facility]2020-01-21 11:50:00 Test Item Value Reference Range Interpretation Comments Glucose Lvl (test code = Glucose Lvl) 62 70-99 [place] 078530-01-21 11:50:00 Test Item Value Reference Range Interpretation Comments BUN (test code = BUN) 31 7-22 [facility]2020-01-21 11:50:00 Test Item Value Reference Range Interpretation Comments Creatinine Lvl (test code = Creatinine 0.80 0.50-1.40 Lvl) [facility]2020-01-21 11:50:00 Test Item Value Reference Range Interpretation Comments Sodium Lvl (test code = Sodium Lvl) 140 135-145 [place] 078530-01-21 11:50:00 Test Item Value Reference Range Interpretation Comments Potassium Lvl (test code = Potassium 3.8 3.5-5.1 Lvl) [place] 078530-01-21 11:50:00 Test Item Value Reference Range Interpretation Comments Chloride Lvl (test code = Chloride Lvl) 108 95-109 [place] 078530-01-21 11:50:00 Test Item Value Reference Range Interpretation Comments CO2 (test code = CO2) 27 24-32 [place] 078530-01-21 11:50:00 Test Item Value Reference Range Interpretation Comments Calcium Lvl (test code = Calcium Lvl) 8.7 8.5-10.5 [place] 078530-01-21 11:50:00 Test Item Value Reference Range Interpretation Comments AGAP (test code = AGAP) 8.8 10.0-20.0 [place] 078530-01-21 11:50:00 Test Item Value Reference Range Interpretation Comments eGFR (test code = eGFR) 73 [place] 316000-01-21 11:50:00 Test Item Value Reference Range Interpretation Comments Segs (test code = Segs) 81.6 45.0-75.0 [place] 316000-01-21 11:50:00 Test Item Value Reference Range Interpretation Comments Lymphocytes (test code = Lymphocytes) 11.9 20.0-40.0 [place] 316000-01-21 11:50:00 Test Item Value Reference Range Interpretation Comments Monocytes (test code = Monocytes) 5.5 2.0-12.0 [place] 316000-01-21 11:50:00 Test Item Value Reference Range Interpretation Comments Eosinophils (test code = 0.5 See_Comment [A utomated message] The Eosinophils) system which nerated this result tra nsmitted reference range : <=4.0. The reference r eric was not used to int erpret this result as normal/abnormal . [place] 316000-01-21 11:50:00 Test Item Value Reference Range Interpretation Comments Basophils (test code = 0.5 See_Comment [Aut omated message] The Basophils) system which ge nerated this result tra nsmitted reference range : <=1.0. The reference r eric was not used to int erpret this result as normal/abnormal . [place] 316000-01-21 11:50:00 Test Item Value Reference Range Interpretation Comments Neutrophils # (test code = Neutrophils 12.8 1.5-8.1 #) [facility] 11:50:00 Test Item Value Reference Range Interpretation Comments Lymphocytes # (test code = Lymphocytes 1.9 1.0-5.5 #) [id number] 11:50:00 Test Item Value Reference Range Interpretation Comments Monocytes # (test code 0.9 See_Comment [Aut omated message] The = Monocytes #) system which generated this result tra nsmitted reference range : <=0.8. The reference r eric was not used to int erpret this result as normal/abnormal . [place] 316000-01-21 11:50:00 Test Item Value Reference Range Interpretation Comments Eosinophils # (test code 0.1 See_Comment [A utomated message] The = Eosinophils #) system whic h generated this result tra nsmitted reference range : <=0.5. The reference r eric was not used to int erpret this result as normal/abnormal . [facility]bqkunrSQVBYQSDBY3277-14-92 11:50:00 Test Item Value Reference Range Interpretation Comments Basophils # (test code 0.1 See_Comment [Aut omated message] The = Basophils #) system which generated this result tra nsmitted reference range : <=0.2. The reference r eric was not used to int erpret this result as normal/abnormal . [id number] 11:50:00 Test Item Value Reference Range Interpretation Comments WBC (test code = WBC) 15.7 3.7-10.4 [place] 316000-01-21 11:50:00 Test Item Value Reference Range Interpretation Comments RBC (test code = RBC) 3.95 4.20-5.40 [place] 316000-01-21 11:50:00 Test Item Value Reference Range Interpretation Comments Hgb (test code = Hgb) 10.2 12.0-16.0 [place] 316000-01-21 11:50:00 Test Item Value Reference Range Interpretation Comments Hct (test code = Hct) 32.3 36.0-48.0 [place] 316000-01-21 11:50:00 Test Item Value Reference Range Interpretation Comments MCV (test code = MCV) 81.9 80.0-98.0 [place] 316000-01-21 11:50:00 Test Item Value Reference Range Interpretation Comments MCH (test code = MCH) 25.9 pg 27.0-31.0 [place] 316000-01-21 11:50:00 Test Item Value Reference Range Interpretation Comments MCHC (test code = MCHC) 31.6 32.0-36.0 [place] 316000-01-21 11:50:00 Test Item Value Reference Range Interpretation Comments RDW (test code = RDW) 14.9 11.5-14.5 [place] 316000-01-21 11:50:00 Test Item Value Reference Range Interpretation Comments Platelet (test code = Platelet) 339 183-450 [place] 316000-01-21 11:50:00 Test Item Value Reference Range Interpretation Comments MPV (test code = MPV) 8.3 7.4-10.4 [facility]2020-01-21 11:50:00 Test Item Value Reference Range Interpretation Comments Glucose Lvl (test code = Glucose Lvl) 62 70-99 [facility]2020-01-21 11:50:00 Test Item Value Reference Range Interpretation Comments BUN (test code = BUN) 31 7-22 [facility]2020-01-21 11:50:00 Test Item Value Reference Range Interpretation Comments Creatinine Lvl (test code = Creatinine 0.80 0.50-1.40 Lvl) [facility]2020-01-21 11:50:00 Test Item Value Reference Range Interpretation Comments Sodium Lvl (test code = Sodium Lvl) 140 135-145 [place] 078530-01-21 11:50:00 Test Item Value Reference Range Interpretation Comments Potassium Lvl (test code = Potassium 3.8 3.5-5.1 Lvl) [place] 078530-01-21 11:50:00 Test Item Value Reference Range Interpretation Comments Chloride Lvl (test code = Chloride Lvl) 108 95-109 [place] 078530-01-21 11:50:00 Test Item Value Reference Range Interpretation Comments CO2 (test code = CO2) 27 24-32 [place] 078530-01-21 11:50:00 Test Item Value Reference Range Interpretation Comments Calcium Lvl (test code = Calcium Lvl) 8.7 8.5-10.5 [place] 078530-01-21 11:50:00 Test Item Value Reference Range Interpretation Comments AGAP (test code = AGAP) 8.8 10.0-20.0 [place] 078530-01-21 11:50:00 Test Item Value Reference Range Interpretation Comments eGFR (test code = eGFR) 73 [place] 316000-01-21 11:50:00 Test Item Value Reference Range Interpretation Comments Segs (test code = Segs) 81.6 45.0-75.0 [place] 316000-01-21 11:50:00 Test Item Value Reference Range Interpretation Comments Lymphocytes (test code = Lymphocytes) 11.9 20.0-40.0 [place] [address]-01-21 11:50:00 Test Item Value Reference Range Interpretation Comments Monocytes (test code = Monocytes) 5.5 2.0-12.0 [place] 316000-01-21 11:50:00 Test Item Value Reference Range Interpretation Comments Eosinophils (test code = 0.5 See_Comment [A utomated message] The Eosinophils) system which ge nerated this result tra nsmitted reference range : <=4.0. The reference r eric was not used to int erpret this result as normal/abnormal . [place] 316000-01-21 11:50:00 Test Item Value Reference Range Interpretation Comments Basophils (test code = 0.5 See_Comment [Aut omated message] The Basophils) system which ge nerated this result tra nsmitted reference range : <=1.0. The reference r eric was not used to int erpret this result as normal/abnormal . [place] 316000-01-21 11:50:00 Test Item Value Reference Range Interpretation Comments Neutrophils # (test code = Neutrophils 12.8 1.5-8.1 #) [place] 316000-01-21 11:50:00 Test Item Value Reference Range Interpretation Comments Lymphocytes # (test code = Lymphocytes 1.9 1.0-5.5 #) [place] 316000-01-21 11:50:00 Test Item Value Reference Range Interpretation Comments Monocytes # (test code 0.9 See_Comment [Aut omated message] The = Monocytes #) system which generated this result tra nsmitted reference range : <=0.8. The reference r eric was not used to int erpret this result as normal/abnormal . [id number] 11:50:00 Test Item Value Reference Range Interpretation Comments Eosinophils # (test code 0.1 See_Comment [A utomated message] The = Eosinophils #) system whic h generated this result tra nsmitted reference range : <=0.5. The reference r eric was not used to int erpret this result as normal/abnormal . [facility]iscoIgszdzpAMHCGTCCIY4949-59-25 11:50:00 Test Item Value Reference Range Interpretation Comments Basophils # (test code 0.1 See_Comment [Aut omated message] The = Basophils #) system which generated this result tra nsmitted reference range : <=0.2. The reference r eric was not used to int erpret this result as normal/abnormal . [id number] 11:50:00 Test Item Value Reference Range Interpretation Comments WBC (test code = WBC) 15.7 3.7-10.4 [place] 316000-01-21 11:50:00 Test Item Value Reference Range Interpretation Comments RBC (test code = RBC) 3.95 4.20-5.40 [id number] 11:50:00 Test Item Value Reference Range Interpretation Comments Hgb (test code = Hgb) 10.2 12.0-16.0 [place] 316000-01-21 11:50:00 Test Item Value Reference Range Interpretation Comments Hct (test code = Hct) 32.3 36.0-48.0 [place] 316000-01-21 11:50:00 Test Item Value Reference Range Interpretation Comments MCV (test code = MCV) 81.9 80.0-98.0 [place] 316000-01-21 11:50:00 Test Item Value Reference Range Interpretation Comments MCH (test code = MCH) 25.9 pg 27.0-31.0 [place] 316000-01-21 11:50:00 Test Item Value Reference Range Interpretation Comments MCHC (test code = MCHC) 31.6 32.0-36.0 [id number] 11:50:00 Test Item Value Reference Range Interpretation Comments RDW (test code = RDW) 14.9 11.5-14.5 [id number] 11:50:00 Test Item Value Reference Range Interpretation Comments Platelet (test code = Platelet) 339 133-450 [id number] 11:50:00 Test Item Value Reference Range Interpretation Comments MPV (test code = MPV) 8.3 7.4-10.4 [facility] [id number] 21:57:00 Test Item Value Reference Range Interpretation Comments Total CK (test code = Total CK) 81 12-191 [facility] [id number] 21:57:00 Test Item Value Reference Range Interpretation Comments Troponin-I (test code no gt See_Comment [Auto mated message] The = Troponin-I) system which g enerated this result transmit thelma reference range : <=0.40. The reference r eric was not used to interpr et this result as zana l/abnormal. [facility] [employer] [id number] 21:57:00 Test Item Value Reference Range Interpretation Comments Glucose Lvl (test code = Glucose Lvl) 85 70-99 [facility]2020-01-20 21:57:00 Test Item Value Reference Range Interpretation Comments BUN (test code = BUN) 38 7-22 [place] 078530-01-20 21:57:00 Test Item Value Reference Range Interpretation Comments Creatinine Lvl (test code = Creatinine 1.00 0.50-1.40 Lvl) [facility]2020-01-20 21:57:00 Test Item Value Reference Range Interpretation Comments Sodium Lvl (test code = Sodium Lvl) 138 135-145 [place] 078530-01-20 21:57:00 Test Item Value Reference Range Interpretation Comments Potassium Lvl (test code = Potassium 5.3 3.5-5.1 Lvl) [facility]2020-01-20 21:57:00 Test Item Value Reference Range Interpretation Comments Chloride Lvl (test code = Chloride Lvl) 108 95-109 [place] 078530-01-20 21:57:00 Test Item Value Reference Range Interpretation Comments CO2 (test code = CO2) 24 24-32 [facility] [id number] 21:57:00 Test Item Value Reference Range Interpretation Comments Calcium Lvl (test code = Calcium Lvl) 8.5 8.5-10.5 [place] 078530-01-20 21:57:00 Test Item Value Reference Range Interpretation Comments Total Protein (test code = Total 6.1 6.4-8.4 Protein) [place] 078530-01-20 21:57:00 Test Item Value Reference Range Interpretation Comments Albumin Lvl (test code = Albumin Lvl) 2.6 3.5-5.0 [facility] [id number] 21:57:00 Test Item Value Reference Range Interpretation Comments ALT (test code = ALT) 12 See_Comment [Auto mated message] The system which ge nerated this result transmit thelma reference range : <=65. The reference range was not used to interpr et this result as zana l/abnormal. [facility] [id number] 21:57:00 Test Item Value Reference Range Interpretation Comments AST (test code = AST) 19 See_Comment [Auto mated message] The system which ge nerated this result transmit thelma reference range : <=37. The reference range was not used to interpr et this result as zana l/abnormal. [facility] [employer] [id number] 21:57:00 Test Item Value Reference Range Interpretation Comments Alk Phos (test code = Alk Phos) 52 39-136 [facility] [id number] 21:57:00 Test Item Value Reference Range Interpretation Comments Bili Total (test code = Bili Total) 0.3 0.2-1.3 [facility] [id number] 21:57:00 Test Item Value Reference Range Interpretation Comments AGAP (test code = AGAP) 11.3 10.0-20.0 [facility] [id number] 21:57:00 Test Item Value Reference Range Interpretation Comments B/C Ratio (test code = B/C Ratio) 38 1 6-25 [facility] [id number] 21:57:00 Test Item Value Reference Range Interpretation Comments Globulin (test code = Globulin) 3.5 2.7-4.2 [facility]2020-01-20 21:57:00 Test Item Value Reference Range Interpretation Comments A/G Ratio (test code = A/G Ratio) 0.7 1 0.7-1.6 [facility]2020-01-20 21:57:00 Test Item Value Reference Range Interpretation Comments eGFR (test code = eGFR) 56 [facility] [id number] 21:57:00 Test Item Value Reference Range Interpretation Comments Total CK (test code = Total CK) 81 12-191 [facility] [id number] 21:57:00 Test Item Value Reference Range Interpretation Comments Troponin-I (test code no gt See_Comment [Auto mated message] The = Troponin-I) system which g enerated this result transmit thelma reference range : <=0.40. The reference r eric was not used to interpr et this result as zana l/abnormal. [facility] [employer] [id number] 21:57:00 Test Item Value Reference Range Interpretation Comments Glucose Lvl (test code = Glucose Lvl) 85 70-99 [facility] [employer] [id number] 21:57:00 Test Item Value Reference Range Interpretation Comments BUN (test code = BUN) 38 7-22 [facility]2020-01-20 21:57:00 Test Item Value Reference Range Interpretation Comments Creatinine Lvl (test code = Creatinine 1.00 0.50-1.40 Lvl) [facility]2020-01-20 21:57:00 Test Item Value Reference Range Interpretation Comments Sodium Lvl (test code = Sodium Lvl) 138 135-145 [facility] [employer] [id number] 21:57:00 Test Item Value Reference Range Interpretation Comments Potassium Lvl (test code = Potassium 5.3 3.5-5.1 Lvl) [facility] [employer] [id number] 21:57:00 Test Item Value Reference Range Interpretation Comments Chloride Lvl (test code = Chloride Lvl) 108 95-109 [facility] [employer] [id number] 21:57:00 Test Item Value Reference Range Interpretation Comments CO2 (test code = CO2) 24 24-32 [place] 078530-01-20 21:57:00 Test Item Value Reference Range Interpretation Comments Calcium Lvl (test code = Calcium Lvl) 8.5 8.5-10.5 [facility] [id number] 21:57:00 Test Item Value Reference Range Interpretation Comments Total Protein (test code = Total 6.1 6.4-8.4 Protein) [facility] ManagerERIN [facility] [id number] 21:57:00 Test Item Value Reference Range Interpretation Comments Albumin Lvl (test code = Albumin Lvl) 2.6 3.5-5.0 [facility] [id number] 21:57:00 Test Item Value Reference Range Interpretation Comments ALT (test code = ALT) 12 See_Comment [Auto mated message] The system which ge nerated this result transmit thelma reference range : <=65. The reference range was not used to interpr et this result as zana l/abnormal. [facility] [id number] 21:57:00 Test Item Value Reference Range Interpretation Comments AST (test code = AST) 19 See_Comment [Auto mated message] The system which ge nerated this result transmit thelma reference range : <=37. The reference range was not used to interpr et this result as zana l/abnormal. [facility] [place] [employer] [id number] 21:57:00 Test Item Value Reference Range Interpretation Comments Alk Phos (test code = Alk Phos) 52 39-136 [facility] [employer] [id number] 21:57:00 Test Item Value Reference Range Interpretation Comments Bili Total (test code = Bili Total) 0.3 0.2-1.3 [facility] [employer] [id number] 21:57:00 Test Item Value Reference Range Interpretation Comments AGAP (test code = AGAP) 11.3 10.0-20.0 [facility] [employer] [id number] 21:57:00 Test Item Value Reference Range Interpretation Comments B/C Ratio (test code = B/C Ratio) 38 1 6-25 [facility] [id number] 21:57:00 Test Item Value Reference Range Interpretation Comments Globulin (test code = Globulin) 3.5 2.7-4.2 [facility] [employer] [id number] 21:57:00 Test Item Value Reference Range Interpretation Comments A/G Ratio (test code = A/G Ratio) 0.7 1 0.7-1.6 [facility] [id number] 21:57:00 Test Item Value Reference Range Interpretation Comments eGFR (test code = eGFR) 56 [facility] [id number] 21:57:00 Test Item Value Reference Range Interpretation Comments Total CK (test code = Total CK) 81 12-191 [facility] [id number] 21:57:00 Test Item Value Reference Range Interpretation Comments Troponin-I (test code no gt See_Comment [Auto mated message] The = Troponin-I) system which g enerated this result transmit thelma reference range : <=0.40. The reference r eric was not used to interpr et this result as zana l/abnormal. [facility] [employer] [id number] 21:57:00 Test Item Value Reference Range Interpretation Comments Glucose Lvl (test code = Glucose Lvl) 85 70-99 [facility] [employer] [id number] 21:57:00 Test Item Value Reference Range Interpretation Comments BUN (test code = BUN) 38 7-22 [facility] [employer] [id number] 21:57:00 Test Item Value Reference Range Interpretation Comments Creatinine Lvl (test code = Creatinine 1.00 0.50-1.40 Lvl) [facility] [employer] [id number] 21:57:00 Test Item Value Reference Range Interpretation Comments Sodium Lvl (test code = Sodium Lvl) 138 135-145 [facility] [employer] [id number] 21:57:00 Test Item Value Reference Range Interpretation Comments Potassium Lvl (test code = Potassium 5.3 3.5-5.1 Lvl) [facility]2020-01-20 21:57:00 Test Item Value Reference Range Interpretation Comments Chloride Lvl (test code = Chloride Lvl) 108 95-109 [facility] [employer] [id number] 21:57:00 Test Item Value Reference Range Interpretation Comments CO2 (test code = CO2) 24 24-32 [place] 078530-01-20 21:57:00 Test Item Value Reference Range Interpretation Comments Calcium Lvl (test code = Calcium Lvl) 8.5 8.5-10.5 [facility] [employer] [id number] 21:57:00 Test Item Value Reference Range Interpretation Comments Total Protein (test code = Total 6.1 6.4-8.4 Protein) [facility] [employer] [id number] 21:57:00 Test Item Value Reference Range Interpretation Comments Albumin Lvl (test code = Albumin Lvl) 2.6 3.5-5.0 [facility] [employer] [id number] 21:57:00 Test Item Value Reference Range Interpretation Comments ALT (test code = ALT) 12 See_Comment [Auto mated message] The system which ge nerated this result transmit thelma reference range : <=65. The reference range was not used to interpr et this result as zana l/abnormal. [facility] [employer] [id number] 21:57:00 Test Item Value Reference Range Interpretation Comments AST (test code = AST) 19 See_Comment [Auto mated message] The system which ge nerated this result transmit thelma reference range : <=37. The reference range was not used to interpr et this result as zana l/abnormal. [facility] [employer] [id number] 21:57:00 Test Item Value Reference Range Interpretation Comments Alk Phos (test code = Alk Phos) 52 39-136 [facility] [employer] [id number] 21:57:00 Test Item Value Reference Range Interpretation Comments Bili Total (test code = Bili Total) 0.3 0.2-1.3 [facility] [employer] [id number] 21:57:00 Test Item Value Reference Range Interpretation Comments AGAP (test code = AGAP) 11.3 10.0-20.0 [facility] [employer] [id number] 21:57:00 Test Item Value Reference Range Interpretation Comments B/C Ratio (test code = B/C Ratio) 38 1 6-25 [facility] [employer] [id number] 21:57:00 Test Item Value Reference Range Interpretation Comments Globulin (test code = Globulin) 3.5 2.7-4.2 [facility] [employer] [id number] 21:57:00 Test Item Value Reference Range Interpretation Comments A/G Ratio (test code = A/G Ratio) 0.7 1 0.7-1.6 [facility] [employer] [id number] 21:57:00 Test Item Value Reference Range Interpretation Comments eGFR (test code = eGFR) 56 [facility]:SUSC:PT:ISOLATE:ORDQN:[id number] 21:05:00 Test Item Value Reference Range Interpretation Comments Culture: Urine (test >100,000 CFU/mL Proteus code = Culture: mirabilis Urine) [facility]:SUSC:PT:ISOLATE:ORDQN:[id number] 21:05:00 Test Item Value Reference Range Interpretation Comments Proteus mirabilis (test Proteus mirabilis code = Proteus mirabilis) [facility] AND [id number] 21:05:00 Test Item Value Reference Range Interpretation Comments UA Turbidity (test code Slight *ABN*(10/03/19 = UA Turbidity) 3:05 PM) [facility] AND [id number] 21:05:00 Test Item Value Reference Range Interpretation Comments UA Spec Grav (test code = UA Spec 1.017 1 Grav) [facility] AND [id number] 21:05:00 Test Item Value Reference Range Interpretation Comments UA pH (test code = UA pH) 7.0 1 5.0-8.0 [facility] AND [id number] 21:05:00 Test Item Value Reference Range Interpretation Comments UA Protein (test code = UA Protein) 30 mg/dL [facility] AND [id number] 21:05:00 Test Item Value Reference Range Interpretation Comments UA Glucose (test code = UA Negative mg/dL Glucose) [facility] AND [id number] 21:05:00 Test Item Value Reference Range Interpretation Comments UA Ketones (test code = UA Trace mg/dL Ketones) [facility] AND [id number] 21:05:00 Test Item Value Reference Range Interpretation Comments UA Bili (test code = Negative *NA*(10/03/19 UA Bili) 3:05 PM) [facility] AND [id number] 21:05:00 Test Item Value Reference Range Interpretation Comments UA Blood (test code = Moderate *ABN*(10/03/19 UA Blood) 3:05 PM) [facility] AND [id number] 21:05:00 Test Item Value Reference Range Interpretation Comments UA Urobilinogen (test code = UA 2.0 0.1-1.0 [facility]ogen) [facility] [id number] 21:05:00 Test Item Value Reference Range Interpretation Comments UA Nitrite (test code Positive *ABN*(10/03/19 = UA Nitrite) 3:05 PM) [facility] [id number] 21:05:00 Test Item Value Reference Range Interpretation Comments UA Leuk Est (test code Large *ABN*(10/03/19 = UA Leuk Est) 3:05 PM) [facility] [id number] 21:05:00 Test Item Value Reference Range Interpretation Comments UA WBC (test code = 90 See_Comment [Automa thelma message] The UA WBC) system which ge nerated this result transmit thelma reference range : <=5. The reference range was not used to interpr et this result as zana l/abnormal. [facility] [id number] 21:05:00 Test Item Value Reference Range Interpretation Comments UA RBC (test code = 9 See_Comment [Automa thelma message] The UA RBC) system which ge nerated this result transmit thelma reference range : <=2. The reference range was not used to interpr et this result as zana l/abnormal. [facility] [id number] 21:05:00 Test Item Value Reference Range Interpretation Comments UA Bacteria (test code = UA Few /HPF Bacteria) [facility] [id number] 21:05:00 Test Item Value Reference Range Interpretation Comments UA Mucus (test code = UA Mucus) Few /LPF [facility] [id number] 21:05:00 Test Item Value Reference Range Interpretation Comments UA Hyal Cast (test 4 See_Comment [Automat ed message] The code = UA Hyal Cast) system which generated this result transmit thelma reference range : <=2. The reference range was not used to interpr et this result as zana l/abnormal. [facility] [id number] 21:05:00 Test Item Value Reference Range Interpretation Comments UA Sq Epi (test code = UA Sq Epi) None Seen [facility] [id number] 21:05:00 Test Item Value Reference Range Interpretation Comments UA Color (test code = UA Color) YELLOW [facility]:ISOLATE:ORDQN:[id number] 21:05:00 Test Item Value Reference Range Interpretation Comments Culture: Urine (test >100,000 CFU/mL Proteus code = Culture: mirabilis Urine) [facility]:PT:ISOLATE:ORDQN:[id number] 21:05:00 Test Item Value Reference Range Interpretation Comments Proteus mirabilis (test Proteus mirabilis code = Proteus mirabilis) [facility] [id number] 21:05:00 Test Item Value Reference Range Interpretation Comments UA Turbidity (test code Slight *ABN*(10/03/19 = UA Turbidity) 3:05 PM) [facility] [id number] 21:05:00 Test Item Value Reference Range Interpretation Comments UA Spec Grav (test code = UA Spec 1.017 1 Grav) [facility] AND [id number] 21:05:00 Test Item Value Reference Range Interpretation Comments UA pH (test code = UA pH) 7.0 1 5.0-8.0 [facility] [id number] 21:05:00 Test Item Value Reference Range Interpretation Comments UA Protein (test code = UA Protein) 30 mg/dL [facility] [id number] 21:05:00 Test Item Value Reference Range Interpretation Comments UA Glucose (test code = UA Negative mg/dL Glucose) [facility] [id number] 21:05:00 Test Item Value Reference Range Interpretation Comments UA Ketones (test code = UA Trace mg/dL Ketones) [facility] [id number] 21:05:00 Test Item Value Reference Range Interpretation Comments UA Bili (test code = Negative *NA*(10/03/19 UA Bili) 3:05 PM) [facility] [id number] 21:05:00 Test Item Value Reference Range Interpretation Comments UA Blood (test code = Moderate *ABN*(10/03/19 UA Blood) 3:05 PM) [facility] [id number] 21:05:00 Test Item Value Reference Range Interpretation Comments UA Urobilinogen (test code = UA 2.0 0.1-1.0 Urobilinogen) [facility] [id number] 21:05:00 Test Item Value Reference Range Interpretation Comments UA Nitrite (test code Positive *ABN*(10/03/19 = UA Nitrite) 3:05 PM) [facility] [id number] 21:05:00 Test Item Value Reference Range Interpretation Comments UA Leuk Est (test code Large *ABN*(10/03/19 = UA Leuk Est) 3:05 PM) [facility] [id number] 21:05:00 Test Item Value Reference Range Interpretation Comments UA WBC (test code = 90 See_Comment [Automa thelma message] The UA WBC) system which ge nerated this result transmit thelma reference range : <=5. The reference range was not used to interpr et this result as zana l/abnormal. [facility] [id number] 21:05:00 Test Item Value Reference Range Interpretation Comments UA RBC (test code = 9 See_Comment [Automa thelma message] The UA RBC) system which ge nerated this result transmit thelma reference range : <=2. The reference range was not used to interpr et this result as zana l/abnormal. [facility] [id number] 21:05:00 Test Item Value Reference Range Interpretation Comments UA Bacteria (test code = UA Few /HPF Bacteria) [facility] [id number] 21:05:00 Test Item Value Reference Range Interpretation Comments UA Mucus (test code = UA Mucus) Few /LPF [facility] [id number] 21:05:00 Test Item Value Reference Range Interpretation Comments UA Hyal Cast (test 4 See_Comment [Automat ed message] The code = UA Hyal Cast) system which generated this result transmit thlema reference range : <=2. The reference range was not used to interpr et this result as zana l/abnormal. [facility] [id number] 21:05:00 Test Item Value Reference Range Interpretation Comments UA Sq Epi (test code = UA Sq Epi) None [facility]en [facility] [id number] 21:05:00 Test Item Value Reference Range Interpretation Comments UA Color (test code = UA Color) YELLOW [facility] CenterJARONFEPIME:SUSC:PT:ISOLATE:ORDQN:[id number] 21:05:00 Test Item Value Reference Range Interpretation Comments Culture: Urine (test >100,000 CFU/mL Proteus code = Culture: mirabilis Urine) [facility]USC:PT:ISOLATE:ORDQN:[id number] 21:05:00 Test Item Value Reference Range Interpretation Comments Proteus mirabilis (test Proteus mirabilis code = Proteus mirabilis) [facility] AND [id number] 21:05:00 Test Item Value Reference Range Interpretation Comments UA Turbidity (test code Slight *ABN*(10/03/19 = UA Turbidity) 3:05 PM) [facility] AND [id number] 21:05:00 Test Item Value Reference Range Interpretation Comments UA Spec Grav (test code = UA Spec 1.017 1 Grav) [facility] AND [id number] 21:05:00 Test Item Value Reference Range Interpretation Comments UA pH (test code = UA pH) 7.0 1 5.0-8.0 [facility] AND [id number] 21:05:00 Test Item Value Reference Range Interpretation Comments UA Protein (test code = UA Protein) 30 mg/dL [facility] AND [id number] 21:05:00 Test Item Value Reference Range Interpretation Comments UA Glucose (test code = UA Negative mg/dL Glucose) [facility] AND [id number] 21:05:00 Test Item Value Reference Range Interpretation Comments UA Ketones (test code = UA Trace mg/dL Ketones) [facility] AND [id number] 21:05:00 Test Item Value Reference Range Interpretation Comments UA Bili (test code = Negative *NA*(10/03/19 UA Bili) 3:05 PM) [facility] AND [id number] 21:05:00 Test Item Value Reference Range Interpretation Comments UA Blood (test code = Moderate *ABN*(10/03/19 UA Blood) 3:05 PM) [facility] AND [id number] 21:05:00 Test Item Value Reference Range Interpretation Comments UA Urobilinogen (test code = UA 2.0 0.1-1.0 Urobilinogen) [facility] AND [id number] 21:05:00 Test Item Value Reference Range Interpretation Comments UA Nitrite (test code Positive *ABN*(10/03/19 = UA Nitrite) 3:05 PM) [facility] [id number] 21:05:00 Test Item Value Reference Range Interpretation Comments UA Leuk Est (test code Large *ABN*(10/03/19 = UA Leuk Est) 3:05 PM) [facility] [id number] 21:05:00 Test Item Value Reference Range Interpretation Comments UA WBC (test code = 90 See_Comment [Automa thelma message] The UA WBC) system which ge nerated this result transmit thelma reference range : <=5. The reference range was not used to interpr et this result as zana l/abnormal. [facility] [id number] 21:05:00 Test Item Value Reference Range Interpretation Comments UA RBC (test code = 9 See_Comment [Automa thelma message] The UA RBC) system which ge nerated this result transmit thelma reference range : <=2. The reference range was not used to interpr et this result as zana l/abnormal. [facility] [id number] 21:05:00 Test Item Value Reference Range Interpretation Comments UA Bacteria (test code = UA Few /HPF Bacteria) [facility] [id number] 21:05:00 Test Item Value Reference Range Interpretation Comments UA Mucus (test code = UA Mucus) Few /LPF [facility] [id number] 21:05:00 Test Item Value Reference Range Interpretation Comments UA Hyal Cast (test 4 See_Comment [Automat ed message] The code = UA Hyal Cast) system which generated this result transmit thelma reference range : <=2. The reference range was not used to interpr et this result as znaa l/abnormal. [facility] [id number] 21:05:00 Test Item Value Reference Range Interpretation Comments UA Sq Epi (test code = UA Sq Epi) None [facility]en [facility] [id number] 21:05:00 Test Item Value Reference Range Interpretation Comments UA Color (test code = UA Color) YELLOW [facility]annCHE[facility] [id number] 20:43:00 Test Item Value Reference Range Interpretation Comments Procalcitonin Lvl (test no gt See_Comment [Au tomated message] code = Procalcitonin Lvl) Th e system which generated this result transmitted ref erence range: <=0.10. The reference range was not used to interpr et this result as normal/abnormal . [facility]2020-01-20 20:43:00 Test Item Value Reference Range Interpretation Comments Lactic Acid Lvl (test code = Lactic 1.3 0.5-2.2 Acid Lvl) [facility]wwqLWSIOFESFX0927-[facility] 20:43:00 Test Item Value Reference Range Interpretation Comments WBC (test code = WBC) 20.6 3.7-10.4 [id number] 20:43:00 Test Item Value Reference Range Interpretation Comments RBC (test code = RBC) 4.33 4.20-5.40 [facility]iscoLlvgntpLPBCEAJNFK3627-74-20 20:43:00 Test Item Value Reference Range Interpretation Comments Hgb (test code = Hgb) 11.2 12.0-16.0 [id number] 20:43:00 Test Item Value Reference Range Interpretation Comments Hct (test code = Hct) 35.9 36.0-48.0 [facility]iscoZmvcxuoCTCLQGYTUA7010-09-77 20:43:00 Test Item Value Reference Range Interpretation Comments MCV (test code = MCV) 83.0 80.0-98.0 [facility]iscoWvsgezvOEPTGFQKQZ3596-11-31 20:43:00 Test Item Value Reference Range Interpretation Comments MCH (test code = MCH) 25.9 pg 27.0-31.0 [id number] 20:43:00 Test Item Value Reference Range Interpretation Comments MCHC (test code = MCHC) 31.2 32.0-36.0 [id number] 20:43:00 Test Item Value Reference Range Interpretation Comments RDW (test code = RDW) 14.9 11.5-14.5 [id number] 20:43:00 Test Item Value Reference Range Interpretation Comments Platelet (test code = Platelet) 358 133-450 [facility]iscoIvclbxjUAXRJDYLLS7656-02-74 20:43:00 Test Item Value Reference Range Interpretation Comments MPV (test code = MPV) 7.9 7.4-10.4 [facility]iscoNlilvtwUXYDIZUCRR5816-04-52 20:43:00 Test Item Value Reference Range Interpretation Comments PT (test code = PT) 14.3 s 12.0-14.7 [facility]iscoIseipqrOOHURCTUHD1332-60-02 20:43:00 Test Item Value Reference Range Interpretation Comments INR (test code = INR) 1.11 1 0.85-1.17 [facility]iscoPwerizqSJBZNCHPWC1408-71-86 20:43:00 Test Item Value Reference Range Interpretation Comments PTT (test code = PTT) 24.8 s 22.9-35.8 [facility] [id number] 20:43:00 Test Item Value Reference Range Interpretation Comments Segs (test code = Segs) 88.7 45.0-75.0 [facility]iscoMldziqzGQFZLCMBWJ6911-08-19 20:43:00 Test Item Value Reference Range Interpretation Comments Lymphocytes (test code = Lymphocytes) 5.5 20.0-40.0 [facility]iscoCdxjhnoBZOUUKVICM6930-47-05 20:43:00 Test Item Value Reference Range Interpretation Comments Monocytes (test code = Monocytes) 5.3 2.0-12.0 [facility] FriscoLtemvrxDPHCWPORSE2282-02-35 20:43:00 Test Item Value Reference Range Interpretation Comments Eosinophils (test code = 0.3 See_Comment [A utomated message] The Eosinophils) system which ge nerated this result tra nsmitted reference range : <=4.0. The reference r eric was not used to int erpret this result as normal/abnormal . [facility]iscoTnzirhwEVDFAEGDOT9670-42-04 20:43:00 Test Item Value Reference Range Interpretation Comments Basophils (test code = 0.2 See_Comment [Aut omated message] The Basophils) system which ge nerated this result tra nsmitted reference range : <=1.0. The reference r eric was not used to int erpret this result as normal/abnormal . [facility]is[id number] 20:43:00 Test Item Value Reference Range Interpretation Comments Neutrophils # (test code = Neutrophils 18.2 1.5-8.1 #) [facility]iscoEsrzpxyMTZHPOTCGA6362-15-65 20:43:00 Test Item Value Reference Range Interpretation Comments Lymphocytes # (test code = Lymphocytes 1.1 1.0-5.5 #) [facility]iscoMjeksyxQIAZWABVDC6412-15-01 20:43:00 Test Item Value Reference Range Interpretation Comments Monocytes # (test code 1.1 See_Comment [Aut omated message] The = Monocytes #) system which generated this result tra nsmitted reference range : <=0.8. The reference r eric was not used to int erpret this result as normal/abnormal . [facility] HospitalOtclangQNABDUUPNS4426-21-29 20:43:00 Test Item Value Reference Range Interpretation Comments Eosinophils # (test code 0.1 See_Comment [A utomated message] The = Eosinophils #) system whic h generated this result tra nsmitted reference range : <=0.5. The reference r eric was not used to int erpret this result as normal/abnormal . [facility]Global [facility] [id number] 20:43:00 Test Item Value Reference Range Interpretation Comments Procalcitonin Lvl (test no gt See_Comment [Au tomated message] code = Procalcitonin Lvl) Th e system which generated this result transmitted ref erence range: <=0.10. The reference range was not used to interpr et this result as normal/abnormal . [facility] [employer] [id number] 20:43:00 Test Item Value Reference Range Interpretation Comments Lactic Acid Lvl (test code = Lactic 1.3 0.5-2.2 Acid Lvl) [facility] CenterBujbfiaVMSLOVMQJI0947-77-60 20:43:00 Test Item Value Reference Range Interpretation Comments WBC (test code = WBC) 20.6 3.7-10.4 [facility] HospitalTrkdwmeIDTHLCFHEB3288-58-78 20:43:00 Test Item Value Reference Range Interpretation Comments RBC (test code = RBC) 4.33 4.20-5.40 [facility] HospitalQoymjhpVFAWJIYGVN0894-93-09 20:43:00 Test Item Value Reference Range Interpretation Comments Hgb (test code = Hgb) 11.2 12.0-16.0 [facility] HospitalOawspguPZEYXPTAZL4383-24-03 20:43:00 Test Item Value Reference Range Interpretation Comments Hct (test code = Hct) 35.9 36.0-48.0 [facility] HospitalNtayrckIHDDFSIPNZ8379-57-06 20:43:00 Test Item Value Reference Range Interpretation Comments MCV (test code = MCV) 83.0 80.0-98.0 [facility]iscoTxqidkhADKEGGLKVE0988-77-74 20:43:00 Test Item Value Reference Range Interpretation Comments MCH (test code = MCH) 25.9 pg 27.0-31.0 [facility]iscoHlxnurjWBZPEOZJFK3920-29-16 20:43:00 Test Item Value Reference Range Interpretation Comments MCHC (test code = MCHC) 31.2 32.0-36.0 [facility]iscoAcfkxctYCRQJOWMWY5529-56-08 20:43:00 Test Item Value Reference Range Interpretation Comments RDW (test code = RDW) 14.9 11.5-14.5 [facility]iscoDsxvuifECCPGDHOBK6619-17-05 20:43:00 Test Item Value Reference Range Interpretation Comments Platelet (test code = Platelet) 358 133-450 [facility]iscoIqlyxfaXYCRXITRYB4371-04-91 20:43:00 Test Item Value Reference Range Interpretation Comments MPV (test code = MPV) 7.9 7.4-10.4 [facility]iscoHrqwjonYXWSKTARUN4594-86-38 20:43:00 Test Item Value Reference Range Interpretation Comments PT (test code = PT) 14.3 s 12.0-14.7 [facility]iscoCvwpuwdXIDQGOQAQV5673-86-11 20:43:00 Test Item Value Reference Range Interpretation Comments INR (test code = INR) 1.11 1 0.85-1.17 [facility]iscoIvfyulbUJDQCNAMMF5322-10-34 20:43:00 Test Item Value Reference Range Interpretation Comments PTT (test code = PTT) 24.8 s 22.9-35.8 [facility] FriscoBrybjedEVEEIYDNBM8499-06-46 20:43:00 Test Item Value Reference Range Interpretation Comments Segs (test code = Segs) 88.7 45.0-75.0 [facility]iscoErpdwsyPDTBEFLPYA7794-07-38 20:43:00 Test Item Value Reference Range Interpretation Comments Lymphocytes (test code = Lymphocytes) 5.5 20.0-40.0 [facility]iscoLoshonuCHXCZISZBK8515-31-00 20:43:00 Test Item Value Reference Range Interpretation Comments Monocytes (test code = Monocytes) 5.3 2.0-12.0 [facility]iscoWubdlboYZSULOQBDS9902-58-08 20:43:00 Test Item Value Reference Range Interpretation Comments Eosinophils (test code = 0.3 See_Comment [A utomated message] The Eosinophils) system which ge nerated this result tra nsmitted reference range : <=4.0. The reference r eric was not used to int erpret this result as normal/abnormal . [facility] CenterDrzlypiKBAAPOEYLT9702-77-25 20:43:00 Test Item Value Reference Range Interpretation Comments Basophils (test code = 0.2 See_Comment [Aut omated message] The Basophils) system which ge nerated this result tra nsmitted reference range : <=1.0. The reference r eric was not used to int erpret this result as normal/abnormal . [facility] FriscoRjiktcdYOJQGEWCPM1279-29-88 20:43:00 Test Item Value Reference Range Interpretation Comments Neutrophils # (test code = Neutrophils 18.2 1.5-8.1 #) [facility]iscoSlilinbKDKCRIXRPT1247-23-09 20:43:00 Test Item Value Reference Range Interpretation Comments Lymphocytes # (test code = Lymphocytes 1.1 1.0-5.5 #) [facility]iscoUqznolcMUGTKFTBBH2980-97-13 20:43:00 Test Item Value Reference Range Interpretation Comments Monocytes # (test code 1.1 See_Comment [Aut omated message] The = Monocytes #) system which generated this result tra nsmitted reference range : <=0.8. The reference r eric was not used to int erpret this result as normal/abnormal . [facility] CenterDrfugvgGATXULGYAG8319-77-01 20:43:00 Test Item Value Reference Range Interpretation Comments Eosinophils # (test code 0.1 See_Comment [A utomated message] The = Eosinophils #) system whic h generated this result tra nsmitted reference range : <=0.5. The reference r eric was not used to int erpret this result as normal/abnormal . [facility] [id number] 20:43:00 Test Item Value Reference Range Interpretation Comments Procalcitonin Lvl (test no gt See_Comment [Au tomated message] code = Procalcitonin Lvl) Th e system which generated this result transmitted ref erence range: <=0.10. The reference range was not used to interpr et this result as normal/abnormal . [facility] [id number] 20:43:00 Test Item Value Reference Range Interpretation Comments Lactic Acid Lvl (test code = Lactic 1.3 0.5-2.2 Acid Lvl) [facility]iscoQlispydKQCLXQKNMU5140-91-55 20:43:00 Test Item Value Reference Range Interpretation Comments WBC (test code = WBC) 20.6 3.7-10.4 [facility]iscoLlcbybsYRDKSIIXOL9703-72-72 20:43:00 Test Item Value Reference Range Interpretation Comments RBC (test code = RBC) 4.33 4.20-5.40 [facility]iscoLpkfzkhGZSAEKICTL7525-59-45 20:43:00 Test Item Value Reference Range Interpretation Comments Hgb (test code = Hgb) 11.2 12.0-16.0 [facility]iscoSwwdegbWSYNXYBVTL4576-08-19 20:43:00 Test Item Value Reference Range Interpretation Comments Hct (test code = Hct) 35.9 36.0-48.0 [facility]iscoXvbuzxtJNEBEJAJSN4100-56-66 20:43:00 Test Item Value Reference Range Interpretation Comments MCV (test code = MCV) 83.0 80.0-98.0 [facility]iscoMygowbiMAHPQENOWW1362-98-90 20:43:00 Test Item Value Reference Range Interpretation Comments MCH (test code = MCH) 25.9 pg 27.0-31.0 [facility] FriscoLdaenjuGQRQYUKTML4185-93-05 20:43:00 Test Item Value Reference Range Interpretation Comments MCHC (test code = MCHC) 31.2 32.0-36.0 [facility]iscoQmjjcrxPDBHCLMINM4407-89-00 20:43:00 Test Item Value Reference Range Interpretation Comments RDW (test code = RDW) 14.9 11.5-14.5 [facility]iscoDtmuqzrANJTIYNDGF7008-91-29 20:43:00 Test Item Value Reference Range Interpretation Comments Platelet (test code = Platelet) 358 133-450 [facility]iscoRtjuljtNLVZIMWUTB9485-77-44 20:43:00 Test Item Value Reference Range Interpretation Comments MPV (test code = MPV) 7.9 7.4-10.4 [facility]iscoAhrbxxsVOJPHKIQIW8737-08-19 20:43:00 Test Item Value Reference Range Interpretation Comments PT (test code = PT) 14.3 s 12.0-14.7 [facility] FriscoZoenquqONHVBZPSUY3827-67-13 20:43:00 Test Item Value Reference Range Interpretation Comments INR (test code = INR) 1.11 1 0.85-1.17 [facility]iscoApgolqsZMPBXOPQUC9796-85-85 20:43:00 Test Item Value Reference Range Interpretation Comments PTT (test code = PTT) 24.8 s 22.9-35.8 [facility] [id number] 20:43:00 Test Item Value Reference Range Interpretation Comments Segs (test code = Segs) 88.7 45.0-75.0 [id number] 20:43:00 Test Item Value Reference Range Interpretation Comments Lymphocytes (test code = Lymphocytes) 5.5 20.0-40.0 [facility] Fris[id number] 20:43:00 Test Item Value Reference Range Interpretation Comments Monocytes (test code = Monocytes) 5.3 2.0-12.0 [facility] Fris[id number] 20:43:00 Test Item Value Reference Range Interpretation Comments Eosinophils (test code = 0.3 See_Comment [A utomated message] The Eosinophils) system which ge nerated this result tra nsmitted reference range : <=4.0. The reference r eric was not used to int erpret this result as normal/abnormal . [facility] FriscoGfqdpecUPFDITUHXG1873-79-30 20:43:00 Test Item Value Reference Range Interpretation Comments Basophils (test code = 0.2 See_Comment [Aut omated message] The Basophils) system which ge nerated this result tra nsmitted reference range : <=1.0. The reference r eric was not used to int erpret this result as normal/abnormal . [facility] FriscoMcpdpldADJGCACIZI5305-53-41 20:43:00 Test Item Value Reference Range Interpretation Comments Neutrophils # (test code = Neutrophils 18.2 1.5-8.1 #) [facility] [id number] 20:43:00 Test Item Value Reference Range Interpretation Comments Lymphocytes # (test code = Lymphocytes 1.1 1.0-5.5 #) [facility] FriscoNmajsxfTNQNXVCAKI7987-27-72 20:43:00 Test Item Value Reference Range Interpretation Comments Monocytes # (test code 1.1 See_Comment [Aut omated message] The = Monocytes #) system which generated this result tra nsmitted reference range : <=0.8. The reference r eric was not used to int erpret this result as normal/abnormal . [facility] F[id number] 20:43:00 Test Item Value Reference Range Interpretation Comments Eosinophils # (test code 0.1 See_Comment [A utomated message] The = Eosinophils #) system [employer] generated this result tra nsmitted reference range : <=0.5. The reference r eric was not used to int erpret this result as normal/abnormal . Rahul Connelly, EXTREMITY, LOWER, JOINT, WITHOUT CONTRAST, [id number] 17:12:00Reason for exam:->RT hip pain, concern occult [...] NarayanMDReport Verified Date/Time: 09/17/2018 17:12:01 Reading Location: [address] Ortho Consult Reading Room RAD, KNEE, 3 VIEWS, [id number] 15:21:00 Reason for exam:->KNEE PAIN Should this [...] in the medial compartment. Signed: Tony Walton MDReport Verified Date/Time: 09/17/2018 15:21:02 Reading Location: [facility] Diagnostic Imaging Reading Room - [facility] F1 1.310.12 RAD, HIP, 2 VIEWS, [id number] 15:19:00Reason for exam:->Rt Hip Pain, traumaShould this be performed at the bedside?->NoFINAL REPORT RIGHT HIP History provided: Right hip pain No fracture or dislocation. Hip joint space well maintained. Evidence of extensive multilevel fusion procedure in the lumbarspine. Signed: Tony Walton MDReport Verified Date/Time: 09/17/2018 15:19:53 [facility] F1 1.310.12 URINE AND [id number] 08:10:00 Test Item Value Reference Range Interpretation Comments UA Leuk Est (test Negative (12/10/16 3:10 code = UA Leuk Est) AM) [facility] AND [id number] 08:10:00 Test Item Value Reference Range Interpretation Comments UA Sq Epi (test code = UA Sq Occasional /LPF Epi) [facility] AND [id number] 08:10:00 Test Item Value Reference Range Interpretation Comments UA WBC (test code = no gt See_Comment [Automa thelma message] The UA WBC) system which ge nerated this result transmit thelma reference range : <=5. The reference range was not used to interpr et this result as zana l/abnormal. [facility] AND [id number] 08:10:00 Test Item Value Reference Range Interpretation Comments UA Mucus (test code = UA Mucus) Few /LPF [facility] AND [id number] 08:10:00 Test Item Value Reference Range Interpretation Comments UA Glucose (test code = UA Negative mg/dL Glucose) [facility] AND [id number] 08:10:00 Test Item Value Reference Range Interpretation Comments UA Ketones (test code = UA Negative mg/dL Ketones) [facility] AND [id number] 08:10:00 Test Item Value Reference Range Interpretation Comments UA Nitrite (test code Negative (12/10/16 3:10 = UA Nitrite) AM) [facility] AND [id number] 08:10:00 Test Item Value Reference Range Interpretation Comments UA Blood (test code = Negative (12/10/16 3:10 UA Blood) AM) [facility] AND [id number] 08:10:00 Test Item Value Reference Range Interpretation Comments UA Bili (test code = Negative *NA*(12/10/16 UA Bili) 3:10 AM) [facility] AND [id number] 08:10:00 Test Item Value Reference Range Interpretation Comments UA Color (test code = Light Yellow UA Color) *NA*(12/10/16 3:10 AM) [facility] AND [id number] 08:10:00 Test Item Value Reference Range Interpretation Comments UA Turbidity (test code = Clear (12/10/16 3:10 UA Turbidity) AM) [facility] AND [id number] 08:10:00 Test Item Value Reference Range Interpretation Comments UA pH (test code = UA pH) 6.5 5.0-8.0 [facility] AND [id number] 08:10:00 Test Item Value Reference Range Interpretation Comments UA Protein (test code = UA Negative mg/dL Protein) [facility] AND [id number] 08:10:00 Test Item Value Reference Range Interpretation Comments UA Spec Grav (test code = UA Spec Grav) 1.008 [facility] AND [id number] 08:10:00 Test Item Value Reference Range Interpretation Comments UA Urobilinogen (test code = UA <=1.0 mg/dL 0.1-1.0 Urobilinogen) [facility] AND [id number] 08:10:00 Test Item Value Reference Range Interpretation Comments UA Leuk Est (test Negative (12/10/16 3:10 code = UA Leuk Est) AM) [facility] AND [id number] 08:10:00 Test Item Value Reference Range Interpretation Comments UA Sq Epi (test code = UA Sq Occasional /LPF Epi) [facility] AND [id number] 08:10:00 Test Item Value Reference Range Interpretation Comments UA WBC (test code = no gt See_Comment [Automa thelma message] The UA WBC) system which ge nerated this result transmit thelma reference range : <=5. The reference range was not used to interpr et this result as zana l/abnormal. [facility] AND [id number] 08:10:00 Test Item Value Reference Range Interpretation Comments UA Mucus (test code = UA Mucus) Few /LPF [facility] AND [id number] 08:10:00 Test Item Value Reference Range Interpretation Comments UA Glucose (test code = UA Negative mg/dL Glucose) [facility] AND [id number] 08:10:00 Test Item Value Reference Range Interpretation Comments UA Ketones (test code = UA Negative mg/dL Ketones) [facility] AND [id number] 08:10:00 Test Item Value Reference Range Interpretation Comments UA Nitrite (test code Negative (12/10/16 3:10 = UA Nitrite) AM) [facility] AND [id number] 08:10:00 Test Item Value Reference Range Interpretation Comments UA Blood (test code = Negative (12/10/16 3:10 UA Blood) AM) [facility] AND [id number] 08:10:00 Test Item Value Reference Range Interpretation Comments UA Bili (test code = Negative *NA*(12/10/16 UA Bili) 3:10 AM) [facility] AND [id number] 08:10:00 Test Item Value Reference Range Interpretation Comments UA Color (test code = Light Yellow UA Color) *NA*(12/10/16 3:10 AM) [facility] AND [id number] 08:10:00 Test Item Value Reference Range Interpretation Comments UA Turbidity (test code = Clear (12/10/16 3:10 UA Turbidity) AM) [facility] AND [id number] 08:10:00 Test Item Value Reference Range Interpretation Comments UA pH (test code = UA pH) 6.5 5.0-8.0 [facility] AND [id number] 08:10:00 Test Item Value Reference Range Interpretation Comments UA Protein (test code = UA Negative mg/dL Protein) [facility] AND [id number] 08:10:00 Test Item Value Reference Range Interpretation Comments UA Spec Grav (test code = UA Spec Grav) 1.008 [facility] AND [id number] 08:10:00 Test Item Value Reference Range Interpretation Comments UA Urobilinogen (test code = UA <=1.0 mg/dL 0.1-1.0 Urobilinogen) [facility] AND [id number] 08:10:00 Test Item Value Reference Range Interpretation Comments UA Leuk Est (test Negative (12/10/16 3:10 code = UA Leuk Est) AM) [facility] AND [id number] 08:10:00 Test Item Value Reference Range Interpretation Comments UA Sq Epi (test code = UA Sq Occasional /LPF Epi) [facility] AND [id number] 08:10:00 Test Item Value Reference Range Interpretation Comments UA WBC (test code = no gt See_Comment [Automa thelma message] The UA WBC) system which ge nerated this result transmit thelma reference range : <=5. The reference range was not used to interpr et this result as zana l/abnormal. [facility] AND [id number] 08:10:00 Test Item Value Reference Range Interpretation Comments UA Mucus (test code = UA Mucus) Few /LPF [facility] AND [id number] 08:10:00 Test Item Value Reference Range Interpretation Comments UA Glucose (test code = UA Negative mg/dL Glucose) [facility] AND [id number] 08:10:00 Test Item Value Reference Range Interpretation Comments UA Ketones (test code = UA Negative mg/dL Ketones) [facility] AND [id number] 08:10:00 Test Item Value Reference Range Interpretation Comments UA Nitrite (test code Negative (12/10/16 3:10 = UA Nitrite) AM) [facility] AND [id number] 08:10:00 Test Item Value Reference Range Interpretation Comments UA Blood (test code = Negative (12/10/16 3:10 UA Blood) AM) [facility] AND [id number] 08:10:00 Test Item Value Reference Range Interpretation Comments UA Bili (test code = Negative *NA*(12/10/16 UA Bili) 3:10 AM) [facility] AND [id number] 08:10:00 Test Item Value Reference Range Interpretation Comments UA Color (test code = Light Yellow UA Color) *NA*(12/10/16 3:10 AM) [facility] [id number] 08:10:00 Test Item Value Reference Range Interpretation Comments UA Turbidity (test code = Clear (12/10/16 3:10 UA Turbidity) AM) [facility] [id number] 08:10:00 Test Item Value Reference Range Interpretation Comments UA pH (test code = UA pH) 6.5 5.0-8.0 [facility] [id number] 08:10:00 Test Item Value Reference Range Interpretation Comments UA Protein (test code = UA Negative mg/dL Protein) [facility] [id number] 08:10:00 Test Item Value Reference Range Interpretation Comments UA Spec Grav (test code = UA Spec Grav) 1.008 [facility] [id number] 08:10:00 Test Item Value Reference Range Interpretation Comments UA Urobilinogen (test code = UA <=1.0 mg/dL 0.1-1.0 Urobilinogen) [facility] [employer]CARDIAC [id number] 07:48:00 Test Item Value Reference Range Interpretation Comments Total CK (test code = Total CK) 59 12-191 [facility] easyfolioCARCertes NetworksAC [id number] 07:48:00 Test Item Value Reference Range Interpretation Comments Troponin-I (test code no gt See_Comment [Auto mated message] The = Troponin-I) system which g enerated this result transmit thelma reference range : <=0.40. The reference r eric was not used to interpr et this result as zana l/abnormal. [facility] [employer]folioCARDIAC [id number] 07:48:00 Test Item Value Reference Range Interpretation Comments CK MB (test code = CK MB) 1.4 0.5-3.6 [facility] [id number] 07:48:00 Test Item Value Reference Range Interpretation Comments CK MB Index (test 2.4 See_Comment [Automate d message] The code = CK MB Index) system w [facility] generated this result transmit thelma reference range : <=2.5. The reference range was not used to interpr et this result as zana l/abnormal. [facility] easyfolioCHEM [id number] 07:48:00 Test Item Value Reference Range Interpretation Comments eGFR (test code = eGFR) 55 [facility]2017-03-29 07:48:00 Test Item Value Reference Range Interpretation Comments B/C Ratio (test code = B/C Ratio) 23 6-25 [facility]2017-03-29 07:48:00 Test Item Value Reference Range Interpretation Comments Globulin (test code = Globulin) 3.5 2.7-4.2 [facility]2017-03-29 07:48:00 Test Item Value Reference Range Interpretation Comments AGAP (test code = AGAP) 16.2 10.0-20.0 [facility]2017-03-29 07:48:00 Test Item Value Reference Range Interpretation Comments Creatinine Lvl (test code = Creatinine 1.04 0.50-1.40 Lvl) [facility]2017-03-29 07:48:00 Test Item Value Reference Range Interpretation Comments Sodium Lvl (test code = Sodium Lvl) 139 135-145 [facility]2017-03-29 07:48:00 Test Item Value Reference Range Interpretation Comments BUN (test code = BUN) 24 7- [facility]2017-03-29 07:48:00 Test Item Value Reference Range Interpretation Comments Glucose Lvl (test code = Glucose Lvl) 153 70-99 [facility]2017-03-29 07:48:00 Test Item Value Reference Range Interpretation Comments A/G Ratio (test code = A/G Ratio) 1.1 0.7-1.6 [facility]2017-03-29 07:48:00 Test Item Value Reference Range Interpretation Comments Calcium Lvl (test code = Calcium Lvl) 9.6 8.5-10.5 [facility]2017-03-29 07:48:00 Test Item Value Reference Range Interpretation Comments Total Protein (test code = Total 7.3 6.4-8.4 Protein) [facility]2017-03-29 07:48:00 Test Item Value Reference Range Interpretation Comments Chloride Lvl (test code = Chloride Lvl) 106 95-109 [facility]2017-03-29 07:48:00 Test Item Value Reference Range Interpretation Comments CO2 (test code = CO2) 24-32 [place] [id number] 07:48:00 Test Item Value Reference Range Interpretation Comments Potassium Lvl (test code = Potassium 5.2 3.5-5.1 Lvl) [place] [id number] 07:48:00 Test Item Value Reference Range Interpretation Comments Bili Total (test code = Bili Total) 0.1 0.2-1.3 [place] [id number] 07:48:00 Test Item Value Reference Range Interpretation Comments AST (test code = AST) 12 See_Comment [Auto mated message] The system which ge nerated this result transmit thelma reference range : <=37. The reference range was not used to interpr et this result as zana l/abnormal. [place] [id number] 07:48:00 Test Item Value Reference Range Interpretation Comments Alk Phos (test code = Alk Phos) 58 39-136 [facility]2017-03-29 07:48:00 Test Item Value Reference Range Interpretation Comments ALT (test code = ALT) 15 See_Comment [Auto mated message] The system which ge nerated this result transmit thelma reference range : <=65. The reference range was not used to interpr et this result as zana l/abnormal. [facility]2017-03-29 07:48:00 Test Item Value Reference Range Interpretation Comments Albumin Lvl (test code = Albumin Lvl) 3.8 3.5-5.0 [id number] 07:48:00 Test Item Value Reference Range Interpretation Comments WBC (test code = WBC) 10.0 3.7-10.4 [facility]iscoBedfhycOCNMKDFUJK4365-11-60 07:48:00 Test Item Value Reference Range Interpretation Comments MCV (test code = MCV) 83.2 80.0-98.0 [place] [address]-03-29 07:48:00 Test Item Value Reference Range Interpretation Comments Hct (test code = Hct) 38.1 36.0-48.0 [place] 8[address]-03-29 07:48:00 Test Item Value Reference Range Interpretation Comments Hgb (test code = Hgb) 12.3 12.0-16.0 [place] [id number] 07:48:00 Test Item Value Reference Range Interpretation Comments RBC (test code = RBC) 4.57 4.20-5.40 [id number] 07:48:00 Test Item Value Reference Range Interpretation Comments RDW (test code = RDW) 14.1 11.5-14.5 [id number] 07:48:00 Test Item Value Reference Range Interpretation Comments MCHC (test code = MCHC) 32.2 32.0-36.0 [id number] 07:48:00 Test Item Value Reference Range Interpretation Comments MPV (test code = MPV) 9.2 7.4-10.4 [facility] [id number] 07:48:00 Test Item Value Reference Range Interpretation Comments MCH (test code = MCH) 26.8 pg 27.0-31.0 [facility] FriscoNuxkmpqDOADBKVJTN7707-56-42 07:48:00 Test Item Value Reference Range Interpretation Comments Platelet (test code = Platelet) 279 133-450 [facility] FriscoGkghfjnZOXLCDGSGY3976-45-56 07:48:00 Test Item Value Reference Range Interpretation Comments PTT (test code = PTT) 26.5 s 22.9-35.8 [facility] FriscoGsufowuTIDMBZEZUH4964-10-95 07:48:00 Test Item Value Reference Range Interpretation Comments INR (test code = INR) 0.99 0.85-1.17 [facility] FriscoBorehykFGUNSHINRP6250-60-25 07:48:00 Test Item Value Reference Range Interpretation Comments PT (test code = PT) 13.3 s 12.0-14.7 [facility] FriscoPqieexyXXVGOOHBOU3650-91-12 07:48:00 Test Item Value Reference Range Interpretation Comments Monocytes # (test code 0.7 See_Comment [Aut omated message] The = Monocytes #) system which generated this result tra nsmitted reference range : <=0.8. The reference r eric was not used to int erpret this result as normal/abnormal . [facility] FriscoXmgkeqgBEACHORUSW8293-81-97 07:48:00 Test Item Value Reference Range Interpretation Comments Lymphocytes # (test code = Lymphocytes 1.9 1.0-5.5 #) [facility]iscoOjgxaiiMWMWQAIMSN4572-18-03 07:48:00 Test Item Value Reference Range Interpretation Comments Basophils # (test code 0.1 See_Comment [Aut omated message] The = Basophils #) system which generated this result tra nsmitted reference range : <=0.2. The reference r eric was not used to int erpret this result as normal/abnormal . [facility] FriscoJtdyhggVLIBVPFFVU3624-12-65 07:48:00 Test Item Value Reference Range Interpretation Comments Eosinophils # (test code 0.5 See_Comment [A utomated message] The = Eosinophils #) system [facility] generated this result tra nsmitted reference range : <=0.5. The reference r eric was not used to int erpret this result as normal/abnormal . [facility]iscoIfdvolaGRFXNJZABG0721-38-61 07:48:00 Test Item Value Reference Range Interpretation Comments Segs (test code = Segs) 68.0 45.0-75.0 [facility] F[id number] 07:48:00 Test Item Value Reference Range Interpretation Comments Eosinophils (test code = 4.7 See_Comment [A utomated message] The Eosinophils) system which ge nerated this result tra nsmitted reference range : <=4.0. The reference r eric was not used to int erpret this result as normal/abnormal . [facility] FriscoYrhtoxuPRJZVRCUPN5486-11-66 07:48:00 Test Item Value Reference Range Interpretation Comments Monocytes (test code = Monocytes) 7.4 2.0-12.0 [facility] F[id number] 07:48:00 Test Item Value Reference Range Interpretation Comments Lymphocytes (test code = Lymphocytes) 19.4 20.0-40.0 [facility] FriscoBdbopmfKLZZZKUBDC4353-07-14 07:48:00 Test Item Value Reference Range Interpretation Comments Segs-Bands # (test code = Segs-Bands #) 6.8 1.5-8.1 [facility] FriscoIazmsvpVTXWVFTVFI2929-13-56 07:48:00 Test Item Value Reference Range Interpretation Comments Basophils (test code = 0.5 See_Comment [Aut omated message] The Basophils) system which ge nerated this result tra nsmitted reference range : <=1.0. The reference r eric was not used to int erpret this result as normal/abnormal . [facility] [id number] 07:48:00 Test Item Value Reference Range Interpretation Comments Total CK (test code = Total CK) 59 12-191 [facility] [employer]folioCARCertes NetworksAC [id number] 07:48:00 Test Item Value Reference Range Interpretation Comments Troponin-I (test code no gt See_Comment [Auto mated message] The = Troponin-I) system which g enerated this result transmit thelma reference range : <=0.40. The reference r eric was not used to interpr et this result as zana l/abnormal. [facility] [employer] [id number] 07:48:00 Test Item Value Reference Range Interpretation Comments CK MB (test code = CK MB) 1.4 0.5-3.6 [facility] [employer] [id number] 07:48:00 Test Item Value Reference Range Interpretation Comments CK MB Index (test 2.4 See_Comment [Automate d message] The code = CK MB Index) system w [facility] generated this result transmit thelma reference range : <=2.5. The reference range was not used to interpr et this result as zana l/abnormal. [employer] [id number] 07:48:00 Test Item Value Reference Range Interpretation Comments eGFR (test code = eGFR) 55 [facility] [employer] [id number] 07:48:00 Test Item Value Reference Range Interpretation Comments B/C Ratio (test code = B/C Ratio) 23 6-25 [facility] [employer] [id number] 07:48:00 Test Item Value Reference Range Interpretation Comments Globulin (test code = Globulin) 3.5 2.7-4.2 [facility] [employer] [id number] 07:48:00 Test Item Value Reference Range Interpretation Comments AGAP (test code = AGAP) 16.2 10.0-20.0 [facility] [employer]2017-03-29 07:48:00 Test Item Value Reference Range Interpretation Comments Creatinine Lvl (test code = Creatinine 1.04 0.50-1.40 Lvl) [facility] [employer]2017-03-29 07:48:00 Test Item Value Reference Range Interpretation Comments Sodium Lvl (test code = Sodium Lvl) 139 135-145 [facility] [employer] [id number] 07:48:00 Test Item Value Reference Range Interpretation Comments BUN (test code = BUN) 24 7-22 [facility] [employer]2017-03-29 07:48:00 Test Item Value Reference Range Interpretation Comments Glucose Lvl (test code = Glucose Lvl) 153 70-99 [place] 014857-03-29 07:48:00 Test Item Value Reference Range Interpretation Comments A/G Ratio (test code = A/G Ratio) 1.1 0.7-1.6 [place] 014857-03-29 07:48:00 Test Item Value Reference Range Interpretation Comments Calcium Lvl (test code = Calcium Lvl) 9.6 8.5-10.5 [facility]2017-03-29 07:48:00 Test Item Value Reference Range Interpretation Comments Total Protein (test code = Total 7.3 6.4-8.4 Protein) [place] [address]-03-29 07:48:00 Test Item Value Reference Range Interpretation Comments Chloride Lvl (test code = Chloride Lvl) 106 95-109 [place] 014857-03-29 07:48:00 Test Item Value Reference Range Interpretation Comments CO2 (test code = CO2) 22 24-32 [place] 014857-03-29 07:48:00 Test Item Value Reference Range Interpretation Comments Potassium Lvl (test code = Potassium 5.2 3.5-5.1 Lvl) [place] [facility] 07:48:00 Test Item Value Reference Range Interpretation Comments Bili Total (test code = Bili Total) 0.1 0.2-1.3 [place] 014857-03-29 07:48:00 Test Item Value Reference Range Interpretation Comments AST (test code = AST) 12 See_Comment [Auto mated message] The system which ge nerated this result transmit thelma reference range : <=37. The reference range was not used to interpr et this result as zana l/abnormal. [facility]2017-03-29 07:48:00 Test Item Value Reference Range Interpretation Comments Alk Phos (test code = Alk Phos) 58 39-136 [place] 014857-03-29 07:48:00 Test Item Value Reference Range Interpretation Comments ALT (test code = ALT) 15 See_Comment [Auto mated message] The system which ge nerated this result transmit thelma reference range : <=65. The reference range was not used to interpr et this result as zana l/abnormal. [facility]2017-03-29 07:48:00 Test Item Value Reference Range Interpretation Comments Albumin Lvl (test code = Albumin Lvl) 3.8 3.5-5.0 [facility]dfocdrMMBQZAUBXA4076-88-20 07:48:00 Test Item Value Reference Range Interpretation Comments WBC (test code = WBC) 10.0 3.7-10.4 [facility]LcbeevqYPNKLNSOWW2667-53-63 07:48:00 Test Item Value Reference Range Interpretation Comments MCV (test code = MCV) 83.2 80.0-98.0 [facility]iscoUcbiuziUWCXYNNWDN0621-43-07 07:48:00 Test Item Value Reference Range Interpretation Comments Hct (test code = Hct) 38.1 36.0-48.0 [facility]iscoTswpxpgOMZDYYHGVC8258-42-95 07:48:00 Test Item Value Reference Range Interpretation Comments Hgb (test code = Hgb) 12.3 12.0-16.0 [facility]iscoPqeekoeUTKNDXLYQZ5024-09-45 07:48:00 Test Item Value Reference Range Interpretation Comments RBC (test code = RBC) 4.57 4.20-5.40 [facility]iscoRtesegkHYCBEMSWRA6869-57-82 07:48:00 Test Item Value Reference Range Interpretation Comments RDW (test code = RDW) 14.1 11.5-14.5 [facility]iscoFnfqssvTPVOWGPCJJ1999-04-99 07:48:00 Test Item Value Reference Range Interpretation Comments MCHC (test code = MCHC) 32.2 32.0-36.0 [facility]iscoRxypwvbLHCJDSQSGG6526-85-57 07:48:00 Test Item Value Reference Range Interpretation Comments MPV (test code = MPV) 9.2 7.4-10.4 [facility]iscoWjzveryQBPLIHYXVY2260-35-05 07:48:00 Test Item Value Reference Range Interpretation Comments MCH (test code = MCH) 26.8 pg 27.0-31.0 [facility]iscoUyawcrfPAZRIZUSTQ2968-00-00 07:48:00 Test Item Value Reference Range Interpretation Comments Platelet (test code = Platelet) 279 133-450 [facility]iscoYesfaksVICDUKPWZY4432-76-98 07:48:00 Test Item Value Reference Range Interpretation Comments PTT (test code = PTT) 26.5 s 22.9-35.8 [place] [address]-03-29 07:48:00 Test Item Value Reference Range Interpretation Comments INR (test code = INR) 0.99 0.85-1.17 [facility]iscoIfskhbtHSAKXDHIGN5196-99-12 07:48:00 Test Item Value Reference Range Interpretation Comments PT (test code = PT) 13.3 s 12.0-14.7 [facility]iscoXufxognPVMMAZZUKS5721-00-81 07:48:00 Test Item Value Reference Range Interpretation Comments Monocytes # (test code 0.7 See_Comment [Aut omated message] The = Monocytes #) system which generated this result tra nsmitted reference range : <=0.8. The reference r eric was not used to int erpret this result as normal/abnormal . [facility]iscoEtniejtQVMUWCHDFJ5951-11-81 07:48:00 Test Item Value Reference Range Interpretation Comments Lymphocytes # (test code = Lymphocytes 1.9 1.0-5.5 #) [facility]iscoGyoaykcSCMUMUQUYE3692-36-73 07:48:00 Test Item Value Reference Range Interpretation Comments Basophils # (test code 0.1 See_Comment [Aut omated message] The = Basophils #) system which generated this result tra nsmitted reference range : <=0.2. The reference r eric was not used to int erpret this result as normal/abnormal . [facility]iscoAjjfpywZWWULIYDNU9872-71-19 07:48:00 Test Item Value Reference Range Interpretation Comments Eosinophils # (test code 0.5 See_Comment [A utomated message] The = Eosinophils #) system whic h generated this result tra nsmitted reference range : <=0.5. The reference r eric was not used to int erpret this result as normal/abnormal . [facility]iscoAhsfytkDHRAIRNVQL2760-27-12 07:48:00 Test Item Value Reference Range Interpretation Comments Segs (test code = Segs) 68.0 45.0-75.0 [facility]iscoZmisvfeXUGEIYATWG4066-14-15 07:48:00 Test Item Value Reference Range Interpretation Comments Eosinophils (test code = 4.7 See_Comment [A utomated message] The Eosinophils) system which ge nerated this result tra nsmitted reference range : <=4.0. The reference r eric was not used to int erpret this result as normal/abnormal . [facility]iscoWqmyajgJPPLEXWCRK0677-23-48 07:48:00 Test Item Value Reference Range Interpretation Comments Monocytes (test code = Monocytes) 7.4 2.0-12.0 [facility]gysijjHVFAGRIGNP6481-16-63 07:48:00 Test Item Value Reference Range Interpretation Comments Lymphocytes (test code = Lymphocytes) 19.4 20.0-40.0 [facility] HospitalBuuzrbjLIFFDEVNYJ7872-70-27 07:48:00 Test Item Value Reference Range Interpretation Comments Segs-Bands # (test code = Segs-Bands #) 6.8 1.5-8.1 [facility] HospitalOxmeawjJSBMVOSSAX3542-44-77 07:48:00 Test Item Value Reference Range Interpretation Comments Basophils (test code = 0.5 See_Comment [Aut omated message] The Basophils) system which ge nerated this result tra nsmitted reference range : <=1.0. The reference r eric was not used to int erpret this result as normal/abnormal . [facility] Test Item Value Reference Range Interpretation Comments Total CK (test code = Total CK) 59 12-191 [facility] TLIPCTO9326-76-52 07:48:00 Test Item Value Reference Range Interpretation Comments Troponin-I (test code no gt See_Comment [Auto mated message] The = Troponin-I) system which g enerated this result transmit thelma reference range : <=0.40. The reference r eric was not used to interpr et this result as zana l/abnormal. [facility] 07:48:00 Test Item Value Reference Range Interpretation Comments CK MB (test code = CK MB) 1.4 0.5-3.6 [facility] CenterComfywareBZPDPYO4209-09-40 07:48:00 Test Item Value Reference Range Interpretation Comments CK MB Index (test 2.4 See_Comment [Automate d message] The code = CK MB Index) system w [facility] generated this result transmit thelma reference range : <=2.5. The reference range was not used to interpr et this result as zana l/abnormal. [facility] HospitalGlobal Vel[facility] DVDTG9456-30-45 07:48:00 Test Item Value Reference Range Interpretation Comments eGFR (test code = eGFR) 55 [facility] [id number] 07:48:00 Test Item Value Reference Range Interpretation Comments B/C Ratio (test code = B/C Ratio) 23 6-25 [facility]2017-03-29 07:48:00 Test Item Value Reference Range Interpretation Comments Globulin (test code = Globulin) 3.5 2.7-4.2 [facility]2017-03-29 07:48:00 Test Item Value Reference Range Interpretation Comments AGAP (test code = AGAP) 16.2 10.0-20.0 [facility]2017-03-29 07:48:00 Test Item Value Reference Range Interpretation Comments Creatinine Lvl (test code = Creatinine 1.04 0.50-1.40 Lvl) [facility]2017-03-29 07:48:00 Test Item Value Reference Range Interpretation Comments Sodium Lvl (test code = Sodium Lvl) 139 135-145 [facility]2017-03-29 07:48:00 Test Item Value Reference Range Interpretation Comments BUN (test code = BUN) 24 7- [facility]2017-03-29 07:48:00 Test Item Value Reference Range Interpretation Comments Glucose Lvl (test code = Glucose Lvl) 153 70-99 [facility]2017-03-29 07:48:00 Test Item Value Reference Range Interpretation Comments A/G Ratio (test code = A/G Ratio) 1.1 0.7-1.6 [facility]2017-03-29 07:48:00 Test Item Value Reference Range Interpretation Comments Calcium Lvl (test code = Calcium Lvl) 9.6 8.5-10.5 [facility]2017-03-29 07:48:00 Test Item Value Reference Range Interpretation Comments Total Protein (test code = Total 7.3 6.4-8.4 Protein) [facility]2017-03-29 07:48:00 Test Item Value Reference Range Interpretation Comments Chloride Lvl (test code = Chloride Lvl) 106 95-109 [facility]2017-03-29 07:48:00 Test Item Value Reference Range Interpretation Comments CO2 (test code = CO2) 22 24-32 [facility]2017-03-29 07:48:00 Test Item Value Reference Range Interpretation Comments Potassium Lvl (test code = Potassium 5.2 3.5-5.1 Lvl) [facility]2017-03-29 07:48:00 Test Item Value Reference Range Interpretation Comments Bili Total (test code = Bili Total) 0.1 0.2-1.3 [facility]2017-03-29 07:48:00 Test Item Value Reference Range Interpretation Comments AST (test code = AST) 12 See_Comment [Auto mated message] The system which ge nerated this result transmit thelma reference range : <=37. The reference range was not used to interpr et this result as zana l/abnormal. [facility]2017-03-29 07:48:00 Test Item Value Reference Range Interpretation Comments Alk Phos (test code = Alk Phos) 58 39-136 [facility]2017-03-29 07:48:00 Test Item Value Reference Range Interpretation Comments ALT (test code = ALT) 15 See_Comment [Auto mated message] The system which ge nerated this result transmit thelma reference range : <=65. The reference range was not used to interpr et this result as zana l/abnormal. [facility]2017-03-29 07:48:00 Test Item Value Reference Range Interpretation Comments Albumin Lvl (test code = Albumin Lvl) 3.8 3.5-5.0 [facility]iscoFnjwtmdPBTCWRGHPE6489-06-64 07:48:00 Test Item Value Reference Range Interpretation Comments WBC (test code = WBC) 10.0 3.7-10.4 [place] 262237-03-29 07:48:00 Test Item Value Reference Range Interpretation Comments MCV (test code = MCV) 83.2 80.0-98.0 [facility]iscoStcjjsdSCVIWSFVLW2690-05-38 07:48:00 Test Item Value Reference Range Interpretation Comments Hct (test code = Hct) 38.1 36.0-48.0 [place] [address]-03-29 07:48:00 Test Item Value Reference Range Interpretation Comments Hgb (test code = Hgb) 12.3 12.0-16.0 [place] [address]-03-29 07:48:00 Test Item Value Reference Range Interpretation Comments RBC (test code = RBC) 4.57 4.20-5.40 [facility]iscoKokmxnbATWFXGLOQO9979-79-31 07:48:00 Test Item Value Reference Range Interpretation Comments RDW (test code = RDW) 14.1 11.5-14.5 [facility]iscoErmkhryEJNTYLDQGP6384-89-71 07:48:00 Test Item Value Reference Range Interpretation Comments MCHC (test code = MCHC) 32.2 32.0-36.0 [facility]iscoVkpuakxJHXPQPYLIC9948-59-03 07:48:00 Test Item Value Reference Range Interpretation Comments MPV (test code = MPV) 9.2 7.4-10.4 [facility]iscoLwbnabyYTKNDXNXZB6236-12-10 07:48:00 Test Item Value Reference Range Interpretation Comments MCH (test code = MCH) 26.8 pg 27.0-31.0 [facility]iscoAgdsmwxOZIDOTZXOX3300-66-22 07:48:00 Test Item Value Reference Range Interpretation Comments Platelet (test code = Platelet) 279 133-450 [facility]iscoQlxkabkPOFYPIWFGG3951-42-14 07:48:00 Test Item Value Reference Range Interpretation Comments PTT (test code = PTT) 26.5 s 22.9-35.8 [facility]iscoJqzvuknWPFMQDYYCQ6425-94-50 07:48:00 Test Item Value Reference Range Interpretation Comments INR (test code = INR) 0.99 0.85-1.17 [facility]iscoAlozoxxYPDDGNYPRT5324-82-78 07:48:00 Test Item Value Reference Range Interpretation Comments PT (test code = PT) 13.3 s 12.0-14.7 [facility]iscoEumfiqzUHCHUYKAQK8494-43-37 07:48:00 Test Item Value Reference Range Interpretation Comments Monocytes # (test code 0.7 See_Comment [Aut omated message] The = Monocytes #) system which generated this result tra nsmitted reference range : <=0.8. The reference r eric was not used to int erpret this result as normal/abnormal . [facility]iscoXmfmsbpPUVXNNPGIL1971-40-89 07:48:00 Test Item Value Reference Range Interpretation Comments Lymphocytes # (test code = Lymphocytes 1.9 1.0-5.5 #) [facility]iscoPhpwpzrMQBIJCBSYZ6406-88-63 07:48:00 Test Item Value Reference Range Interpretation Comments Basophils # (test code 0.1 See_Comment [Aut omated message] The = Basophils #) system which generated this result tra nsmitted reference range : <=0.2. The reference r eric was not used to int erpret this result as normal/abnormal . [facility]iscoClqrwknQYWEXGPHBJ2784-10-65 07:48:00 Test Item Value Reference Range Interpretation Comments Eosinophils # (test code 0.5 See_Comment [A utomated message] The = Eosinophils #) system whic h generated this result tra nsmitted reference range : <=0.5. The reference r eric was not used to int erpret this result as normal/abnormal . [facility]iscoNwkejaqFXRBBWJMRF1097-59-22 07:48:00 Test Item Value Reference Range Interpretation Comments Segs (test code = Segs) 68.0 45.0-75.0 [facility]iscoJacoyqkJTRWPOABUA7401-02-46 07:48:00 Test Item Value Reference Range Interpretation Comments Eosinophils (test code = 4.7 See_Comment [A utomated message] The Eosinophils) system which ge nerated this result tra nsmitted reference range : <=4.0. The reference r eric was not used to int erpret this result as normal/abnormal . [facility]iscoHisbzxzJDGLLTYMUT9970-87-05 07:48:00 Test Item Value Reference Range Interpretation Comments Monocytes (test code = Monocytes) 7.4 2.0-12.0 [facility]iscoDpafoopDBAYIEOILN1458-74-56 07:48:00 Test Item Value Reference Range Interpretation Comments Lymphocytes (test code = Lymphocytes) 19.4 20.0-40.0 [facility]iscoZytbxfgGXSOLKAEMD2241-09-20 07:48:00 Test Item Value Reference Range Interpretation Comments Segs-Bands # (test code = Segs-Bands #) 6.8 1.5-8.1 [facility]iscoHjceszgQGKSGBPRSG9102-13-31 07:48:00 Test Item Value Reference Range Interpretation Comments Basophils (test code = 0.5 See_Comment [Aut omated message] The Basophils) system which ge nerated this result tra nsmitted reference range : <=1.0. The reference r eric was not used to int erpret this result as normal/abnormal . [facility] CenterCARDIAC QIYQXKU5888-46-87 08:34:00 Test Item Value Reference Range Interpretation Comments Troponin-I (test code no gt See_Comment [Auto mated message] The = Troponin-I) system which g enerated this result transmit thelma reference range : <=0.40. The reference r eric was not used to interpr et this result as zana l/abnormal. [facility] CenterWysiwyg METOGBO0718-61-90 08:34:00 Test Item Value Reference Range Interpretation Comments CK MB (test code = CK MB) 1.9 0.5-3.6 [facility] HYWBRRX8287-88-69 08:34:00 Test Item Value Reference Range Interpretation Comments Total CK (test code = Total CK) 82 12-191 [facility] CenterWysiwyg NWZYSSP0036-87-24 08:34:00 Test Item Value Reference Range Interpretation Comments CK MB Index (test 2.3 See_Comment [Automate d message] The code = CK MB Index) system w [facility] generated this result transmit thelma reference range : <=2.5. The reference range was not used to interpr et this result as zana l/abnormal. [facility] OLNKB4793-97-00 08:34:00 Test Item Value Reference Range Interpretation Comments Ammonia (test code = Ammonia) 13.0 [facility] KQYZN2225-75-53 08:34:00 Test Item Value Reference Range Interpretation Comments eGFR (test code = eGFR) 65 [facility] CWSVS6401-72-25 08:34:00 Test Item Value Reference Range Interpretation Comments ALT (test code = ALT) 20 See_Comment [Auto mated message] The system which ge nerated this result transmit thelma reference range : <=65. The reference range was not used to interpr et this result as zana l/abnormal. [facility] [employer]2015-09-26 08:34:00 Test Item Value Reference Range Interpretation Comments AST (test code = AST) 13 See_Comment [Auto mated message] The system which ge nerated this result transmit thelma reference range : <=37. The reference range was not used to interpr et this result as zana l/abnormal. [facility] [employer]2015-09-26 08:34:00 Test Item Value Reference Range Interpretation Comments Bili Total (test code = Bili Total) 0.6 0.2-1.3 [facility] HospitalThe Neat CompanyOPPPD9427-67-54 08:34:00 Test Item Value Reference Range Interpretation Comments AGAP (test code = AGAP) 10.9 10.0-20.0 [facility] [employer]2015-09-26 08:34:00 Test Item Value Reference Range Interpretation Comments Alk Phos (test code = Alk Phos) 47 39-136 [facility]2015-09-26 08:34:00 Test Item Value Reference Range Interpretation Comments A/G Ratio (test code = A/G Ratio) 1.2 0.7-1.6 [facility]2015-09-26 08:34:00 Test Item Value Reference Range Interpretation Comments Globulin (test code = Globulin) 3.4 2.0-4.0 [facility]2015-09-26 08:34:00 Test Item Value Reference Range Interpretation Comments B/C Ratio (test code = B/C Ratio) 22 6-25 [facility]2015-09-26 08:34:00 Test Item Value Reference Range Interpretation Comments Potassium Lvl (test code = Potassium 3.9 3.5-5.1 Lvl) [facility]2015-09-26 08:34:00 Test Item Value Reference Range Interpretation Comments CO2 (test code = CO2) 28 24-32 [facility]2015-09-26 08:34:00 Test Item Value Reference Range Interpretation Comments Chloride Lvl (test code = Chloride Lvl) 101 95-109 [facility]2015-09-26 08:34:00 Test Item Value Reference Range Interpretation Comments Calcium Lvl (test code = Calcium Lvl) 9.1 8.5-10.5 [facility]2015-09-26 08:34:00 Test Item Value Reference Range Interpretation Comments Total Protein (test code = Total 7.4 6.4-8.4 Protein) [facility]2015-09-26 08:34:00 Test Item Value Reference Range Interpretation Comments Albumin Lvl (test code = Albumin Lvl) 4.0 3.5-5.0 [facility]2015-09-26 08:34:00 Test Item Value Reference Range Interpretation Comments Glucose Lvl (test code = Glucose Lvl) 150 70-99 [facility]2015-09-26 08:34:00 Test Item Value Reference Range Interpretation Comments BUN (test code = BUN) 20 7-22 [facility]2015-09-26 08:34:00 Test Item Value Reference Range Interpretation Comments Creatinine Lvl (test code = Creatinine 0.9 0.5-1.4 Lvl) [facility]2015-09-26 08:34:00 Test Item Value Reference Range Interpretation Comments Sodium Lvl (test code = Sodium Lvl) 136 135-145 [facility]2015-09-26 08:34:00 Test Item Value Reference Range Interpretation Comments Magnesium Lvl (test code = Magnesium 1.8 1.8-2.4 Lvl) [facility]iscoOamkxhiYBNOPFPUAZ2758-64-81 08:34:00 Test Item Value Reference Range Interpretation Comments PTT (test code = PTT) 26.7 s 22.9-35.8 [facility]iscoQwpmiqkKEFPJMIYUA2740-61-34 08:34:00 Test Item Value Reference Range Interpretation Comments PT (test code = PT) 12.8 s 12.0-14.7 [facility]iscoIqmjvxwDLTETXQKNV5703-72-44 08:34:00 Test Item Value Reference Range Interpretation Comments INR (test code = INR) 0.93 0.85-1.17 [facility]iscoUwxhwqbCNBWNGYBRO6258-34-86 08:34:00 Test Item Value Reference Range Interpretation Comments Platelet (test code = Platelet) 281 133-450 [facility]iscoDqtazroUUDJHVTJPD1732-37-01 08:34:00 Test Item Value Reference Range Interpretation Comments MPV (test code = MPV) 9.5 7.4-10.4 [facility]iscoSopsuksLMHBGCKUSH7241-72-39 08:34:00 Test Item Value Reference Range Interpretation Comments RDW (test code = RDW) 14.8 11.5-14.5 [facility]iscoOogwgejFPPKDMXQDY0522-80-26 08:34:00 Test Item Value Reference Range Interpretation Comments MCHC (test code = MCHC) 32.5 32.0-36.0 [facility]iscoNifjbicEWVSTJREZW7448-26-84 08:34:00 Test Item Value Reference Range Interpretation Comments RBC (test code = RBC) 5.21 4.20-5.40 [facility]iscoUivcejhUFSTBGBMFT1459-55-42 08:34:00 Test Item Value Reference Range Interpretation Comments Hgb (test code = Hgb) 13.7 12.0-16.0 [facility] FriscoOteixoaTXUSLNDBCO6481-76-79 08:34:00 Test Item Value Reference Range Interpretation Comments WBC (test code = WBC) 10.6 3.7-10.4 [place] 262235-09-26 08:34:00 Test Item Value Reference Range Interpretation Comments Hct (test code = Hct) 42.2 36.0-48.0 [facility]iscoCavpltaLHGTYSCJNT1375-41-77 08:34:00 Test Item Value Reference Range Interpretation Comments MCV (test code = MCV) 81.0 80.0-98.0 [facility]iscoKlhqjlnSDBZNYWFEW0805-65-13 08:34:00 Test Item Value Reference Range Interpretation Comments MCH (test code = MCH) 26.3 pg 27.0-31.0 [facility]iscoCrbwvxcUMBZQBTEBI8953-41-66 08:34:00 Test Item Value Reference Range Interpretation Comments Basophils # (test code 0.1 See_Comment [Aut omated message] The = Basophils #) system which generated this result tra nsmitted reference range : <=0.2. The reference r eric was not used to int erpret this result as normal/abnormal . [facility]iscoOyfzbdfYDSLHHKZBN8969-51-47 08:34:00 Test Item Value Reference Range Interpretation Comments Segs (test code = Segs) 65.9 45.0-75.0 [facility]iscoEoqlrzmLMBBEZQFSW8375-38-15 08:34:00 Test Item Value Reference Range Interpretation Comments Lymphocytes (test code = Lymphocytes) 26.0 20.0-40.0 [facility]iscoJbonzjuNJKZENDKOB5721-34-13 08:34:00 Test Item Value Reference Range Interpretation Comments Eosinophils (test code = 1.4 See_Comment [A utomated message] The Eosinophils) system which ge nerated this result tra nsmitted reference range : <=4.0. The reference r eric was not used to int erpret this result as normal/abnormal . [facility]iscoZzwpnfsHSWQSYLJHU2020-58-44 08:34:00 Test Item Value Reference Range Interpretation Comments Monocytes (test code = Monocytes) 6.1 2.0-12.0 [facility]iscoAcbkhieQBLXDGSUWH0500-40-42 08:34:00 Test Item Value Reference Range Interpretation Comments Basophils (test code = 0.6 See_Comment [Aut omated message] The Basophils) system which ge nerated this result tra nsmitted reference range : <=1.0. The reference r eric was not used to int erpret this result as normal/abnormal . [facility]iscoScnxyhlDMYWDSDXGV6534-17-23 08:34:00 Test Item Value Reference Range Interpretation Comments Eosinophils # (test code 0.2 See_Comment [A utomated message] The = Eosinophils #) system whic h generated this result tra nsmitted reference range : <=0.5. The reference r eric was not used to int erpret this result as normal/abnormal . [facility] HospitalRtnfwxnJDMKMCGKJZ2459-73-97 08:34:00 Test Item Value Reference Range Interpretation Comments Monocytes # (test code 0.7 See_Comment [Aut omated message] The = Monocytes #) system which generated this result tra nsmitted reference range : <=0.8. The reference r eric was not used to int erpret this result as normal/abnormal . [facility] HospitalPpzbplyZGIPHSGKCQ6379-73-46 08:34:00 Test Item Value Reference Range Interpretation Comments Lymphocytes # (test code = Lymphocytes 2.8 1.0-5.5 #) [facility] HospitalTnflcozMSIQCRATXS5979-00-42 08:34:00 Test Item Value Reference Range Interpretation Comments Segs-Bands # (test code = Segs-Bands #) 7.0 1.5-8.1 [facility]Deci[facility] 08:34:00 Test Item Value Reference Range Interpretation Comments Troponin-I (test code no gt See_Comment [Auto mated message] The = Troponin-I) system which g enerated this result transmit thelma reference range : <=0.40. The reference r eric was not used to interpr et this result as zana l/abnormal. [facility] [id number] 08:34:00 Test Item Value Reference Range Interpretation Comments CK MB (test code = CK MB) 1.9 0.5-3.6 [facility]Greencart[facility] [id number] 08:34:00 Test Item Value Reference Range Interpretation Comments Total CK (test code = Total CK) 82 12-191 [facility] [id number] 08:34:00 Test Item Value Reference Range Interpretation Comments CK MB Index (test 2.3 See_Comment [Automate d message] The code = CK MB Index) [facility] result transmit thelma reference range : <=2.5. The reference range was not used to interpr et this result as zana l/abnormal. [facility] [employer] [id number] 08:34:00 Test Item Value Reference Range Interpretation Comments Ammonia (test code = Ammonia) 13.0 [facility] [id number] 08:34:00 Test Item Value Reference Range Interpretation Comments eGFR (test code = eGFR) 65 [facility]2015-09-26 08:34:00 Test Item Value Reference Range Interpretation Comments ALT (test code = ALT) 20 See_Comment [Auto mated message] The system which ge nerated this result transmit thelma reference range : <=65. The reference range was not used to interpr et this result as zana l/abnormal. [facility] [id number] 08:34:00 Test Item Value Reference Range Interpretation Comments AST (test code = AST) 13 See_Comment [Auto mated message] The system which ge nerated this result transmit thelma reference range : <=37. The reference range was not used to interpr et this result as zana l/abnormal. [facility] [id number] 08:34:00 Test Item Value Reference Range Interpretation Comments Bili Total (test code = Bili Total) 0.6 0.2-1.3 [facility] [id number] 08:34:00 Test Item Value Reference Range Interpretation Comments AGAP (test code = AGAP) 10.9 10.0-20.0 [facility] [id number] 08:34:00 Test Item Value Reference Range Interpretation Comments Alk Phos (test code = Alk Phos) 47 39-136 [facility] [id number] 08:34:00 Test Item Value Reference Range Interpretation Comments A/G Ratio (test code = A/G Ratio) 1.2 0.7-1.6 [facility] [id number] 08:34:00 Test Item Value Reference Range Interpretation Comments Globulin (test code = Globulin) 3.4 2.0-4.0 [facility] [id number] 08:34:00 Test Item Value Reference Range Interpretation Comments B/C Ratio (test code = B/C Ratio) 22 6-25 [facility] [id number] 08:34:00 Test Item Value Reference Range Interpretation Comments Potassium Lvl (test code = Potassium 3.9 3.5-5.1 Lvl) [place] 014855-09-26 08:34:00 Test Item Value Reference Range Interpretation Comments CO2 (test code = CO2) 28 24-32 [place] 014855-09-26 08:34:00 Test Item Value Reference Range Interpretation Comments Chloride Lvl (test code = Chloride Lvl) 101 95-109 [facility]2015-09-26 08:34:00 Test Item Value Reference Range Interpretation Comments Calcium Lvl (test code = Calcium Lvl) 9.1 8.5-10.5 [place] 014855-09-26 08:34:00 Test Item Value Reference Range Interpretation Comments Total Protein (test code = Total 7.4 6.4-8.4 Protein) [place] 014855-09-26 08:34:00 Test Item Value Reference Range Interpretation Comments Albumin Lvl (test code = Albumin Lvl) 4.0 3.5-5.0 [place] 014855-09-26 08:34:00 Test Item Value Reference Range Interpretation Comments Glucose Lvl (test code = Glucose Lvl) 150 70-99 [place] 014855-09-26 08:34:00 Test Item Value Reference Range Interpretation Comments BUN (test code = BUN) 20 7-22 [place] 014855-09-26 08:34:00 Test Item Value Reference Range Interpretation Comments Creatinine Lvl (test code = Creatinine 0.9 0.5-1.4 Lvl) [facility]2015-09-26 08:34:00 Test Item Value Reference Range Interpretation Comments Sodium Lvl (test code = Sodium Lvl) 136 135-145 [place] 014855-09-26 08:34:00 Test Item Value Reference Range Interpretation Comments Magnesium Lvl (test code = Magnesium 1.8 1.8-2.4 Lvl) [id number] 08:34:00 Test Item Value Reference Range Interpretation Comments PTT (test code = PTT) 26.7 s 22.9-35.8 [place] 262235-09-26 08:34:00 Test Item Value Reference Range Interpretation Comments PT (test code = PT) 12.8 s 12.0-14.7 [place] 262235-09-26 08:34:00 Test Item Value Reference Range Interpretation Comments INR (test code = INR) 0.93 0.85-1.17 [facility]iscoFosswgoDYJCIQUKTH0464-05-05 08:34:00 Test Item Value Reference Range Interpretation Comments Platelet (test code = Platelet) 281 133-450 [id number] 08:34:00 Test Item Value Reference Range Interpretation Comments MPV (test code = MPV) 9.5 7.4-10.4 [facility]iscoWzddlujEFPLRRKAYQ9738-00-73 08:34:00 Test Item Value Reference Range Interpretation Comments RDW (test code = RDW) 14.8 11.5-14.5 [facility]is[id number] 08:34:00 Test Item Value Reference Range Interpretation Comments MCHC (test code = MCHC) 32.5 32.0-36.0 [facility]iscoM[id number] 08:34:00 Test Item Value Reference Range Interpretation Comments RBC (test code = RBC) 5.21 4.20-5.40 [facility]iscoIcbsksdOANRMEOUAY8356-55-51 08:34:00 Test Item Value Reference Range Interpretation Comments Hgb (test code = Hgb) 13.7 12.0-16.0 [facility]iscoTyogoxsOVISRUNRKV6954-40-04 08:34:00 Test Item Value Reference Range Interpretation Comments WBC (test code = WBC) 10.6 3.7-10.4 [facility]is[id number] 08:34:00 Test Item Value Reference Range Interpretation Comments Hct (test code = Hct) 42.2 36.0-48.0 [id number] 08:34:00 Test Item Value Reference Range Interpretation Comments MCV (test code = MCV) 81.0 80.0-98.0 [facility]iscoOdbadlzQHFUAYWNXY5546-82-85 08:34:00 Test Item Value Reference Range Interpretation Comments MCH (test code = MCH) 26.3 pg 27.0-31.0 [facility] FriscoLtneuzzXXHQMQAOUO1554-96-96 08:34:00 Test Item Value Reference Range Interpretation Comments Basophils # (test code 0.1 See_Comment [Aut omated message] The = Basophils #) system which generated this result tra nsmitted reference range : <=0.2. The reference r eric was not used to int erpret this result as normal/abnormal . [facility]iscoUntonudRYBVRQTFNH5140-37-09 08:34:00 Test Item Value Reference Range Interpretation Comments Segs (test code = Segs) 65.9 45.0-75.0 [id number] 08:34:00 Test Item Value Reference Range Interpretation Comments Lymphocytes (test code = Lymphocytes) 26.0 20.0-40.0 [facility]iscoQdqfgikZLTCDVTPZY7615-91-36 08:34:00 Test Item Value Reference Range Interpretation Comments Eosinophils (test code = 1.4 See_Comment [A utomated message] The Eosinophils) system which ge nerated this result tra nsmitted reference range : <=4.0. The reference r eric was not used to int erpret this result as normal/abnormal . [facility]iscoJqkcppeXILHSDVKNG3260-74-17 08:34:00 Test Item Value Reference Range Interpretation Comments Monocytes (test code = Monocytes) 6.1 2.0-12.0 [id number] 08:34:00 Test Item Value Reference Range Interpretation Comments Basophils (test code = 0.6 See_Comment [Aut omated message] The Basophils) system which ge nerated this result tra nsmitted reference range : <=1.0. The reference r eric was not used to int erpret this result as normal/abnormal . [facility]iscoRikbzlyVEKYWMBDTO3327-06-24 08:34:00 Test Item Value Reference Range Interpretation Comments Eosinophils # (test code 0.2 See_Comment [A utomated message] The = Eosinophils #) system [facility] h generated this result tra nsmitted reference range : <=0.5. The reference r eric was not used to int erpret this result as normal/abnormal . [facility]iscoIpehzrpKRDWTAANUC2649-68-14 08:34:00 Test Item Value Reference Range Interpretation Comments Monocytes # (test code 0.7 See_Comment [Aut omated message] The = Monocytes #) system which generated this result tra nsmitted reference range : <=0.8. The reference r eric was not used to int erpret this result as normal/abnormal . [facility]iscoBpuoifrQLAZUKFDWB3642-50-27 08:34:00 Test Item Value Reference Range Interpretation Comments Lymphocytes # (test code = Lymphocytes 2.8 1.0-5.5 #) [facility]is[id number] 08:34:00 Test Item Value Reference Range Interpretation Comments Segs-Bands # (test code = Segs-Bands #) 7.0 1.5-8.1 [facility] [id number] 08:34:00 Test Item Value Reference Range Interpretation Comments Troponin-I (test code no gt See_Comment [Auto mated message] The = Troponin-I) system which g enerated this result transmit thelma reference range : <=0.40. The reference r eric was not used to interpr et this result as zana l/abnormal. [facility] [id number] 08:34:00 Test Item Value Reference Range Interpretation Comments CK MB (test code = CK MB) 1.9 0.5-3.6 [facility] [id number] 08:34:00 Test Item Value Reference Range Interpretation Comments Total CK (test code = Total CK) 82 12-191 [facility] [id number] 08:34:00 Test Item Value Reference Range Interpretation Comments CK MB Index (test 2.3 See_Comment [Automate d message] The code = CK MB Index) system w [facility] generated this result transmit thelma reference range : <=2.5. The reference range was not used to interpr et this result as zana l/abnormal. [facility] [employer] [id number] 08:34:00 Test Item Value Reference Range Interpretation Comments Ammonia (test code = Ammonia) 13.0 [facility] [employer] [id number] 08:34:00 Test Item Value Reference Range Interpretation Comments eGFR (test code = eGFR) 65 [facility] [employer] [id number] 08:34:00 Test Item Value Reference Range Interpretation Comments ALT (test code = ALT) 20 See_Comment [Auto mated message] The system which ge nerated this result transmit thelma reference range : <=65. The reference range was not used to interpr et this result as zana l/abnormal. [facility] [employer] [id number] 08:34:00 Test Item Value Reference Range Interpretation Comments AST (test code = AST) 13 See_Comment [Auto mated message] The system which ge nerated this result transmit thelma reference range : <=37. The reference range was not used to interpr et this result as zana l/abnormal. [facility]2015-09-26 08:34:00 Test Item Value Reference Range Interpretation Comments Bili Total (test code = Bili Total) 0.6 0.2-1.3 [facility]2015-09-26 08:34:00 Test Item Value Reference Range Interpretation Comments AGAP (test code = AGAP) 10.9 10.0-20.0 [facility]2015-09-26 08:34:00 Test Item Value Reference Range Interpretation Comments Alk Phos (test code = Alk Phos) 47 39-136 [facility]2015-09-26 08:34:00 Test Item Value Reference Range Interpretation Comments A/G Ratio (test code = A/G Ratio) 1.2 0.7-1.6 [place] 014855-09-26 08:34:00 Test Item Value Reference Range Interpretation Comments Globulin (test code = Globulin) 3.4 2.0-4.0 [facility]2015-09-26 08:34:00 Test Item Value Reference Range Interpretation Comments B/C Ratio (test code = B/C Ratio) 22 6-25 [facility]2015-09-26 08:34:00 Test Item Value Reference Range Interpretation Comments Potassium Lvl (test code = Potassium 3.9 3.5-5.1 Lvl) [facility]2015-09-26 08:34:00 Test Item Value Reference Range Interpretation Comments CO2 (test code = CO2) 28 24-32 [facility]2015-09-26 08:34:00 Test Item Value Reference Range Interpretation Comments Chloride Lvl (test code = Chloride Lvl) 101 95-109 [facility]2015-09-26 08:34:00 Test Item Value Reference Range Interpretation Comments Calcium Lvl (test code = Calcium Lvl) 9.1 8.5-10.5 [facility]2015-09-26 08:34:00 Test Item Value Reference Range Interpretation Comments Total Protein (test code = Total 7.4 6.4-8.4 Protein) [facility]2015-09-26 08:34:00 Test Item Value Reference Range Interpretation Comments Albumin Lvl (test code = Albumin Lvl) 4.0 3.5-5.0 [facility]2015-09-26 08:34:00 Test Item Value Reference Range Interpretation Comments Glucose Lvl (test code = Glucose Lvl) 150 70-99 [facility]2015-09-26 08:34:00 Test Item Value Reference Range Interpretation Comments BUN (test code = BUN) 20 7-22 [facility]2015-09-26 08:34:00 Test Item Value Reference Range Interpretation Comments Creatinine Lvl (test code = Creatinine 0.9 0.5-1.4 Lvl) [place] 014855-09-26 08:34:00 Test Item Value Reference Range Interpretation Comments Sodium Lvl (test code = Sodium Lvl) 136 135-145 [facility]2015-09-26 08:34:00 Test Item Value Reference Range Interpretation Comments Magnesium Lvl (test code = Magnesium 1.8 1.8-2.4 Lvl) [id number] 08:34:00 Test Item Value Reference Range Interpretation Comments PTT (test code = PTT) 26.7 s 22.9-35.8 [place] 262235-09-26 08:34:00 Test Item Value Reference Range Interpretation Comments PT (test code = PT) 12.8 s 12.0-14.7 [facility]iscoOlskgsqTQYAFKOCTR2090-36-04 08:34:00 Test Item Value Reference Range Interpretation Comments INR (test code = INR) 0.93 0.85-1.17 [facility]iscoJwqbifdTEHGPQMGMC8479-16-30 08:34:00 Test Item Value Reference Range Interpretation Comments Platelet (test code = Platelet) 281 133-450 [facility]iscoZgovupiNWVEGJYHAN0076-98-43 08:34:00 Test Item Value Reference Range Interpretation Comments MPV (test code = MPV) 9.5 7.4-10.4 [facility]iscoKvntiwpGWNXFTJLCF4975-83-49 08:34:00 Test Item Value Reference Range Interpretation Comments RDW (test code = RDW) 14.8 11.5-14.5 [facility]iscoJoviqqaVHQRTDHCVE0464-12-96 08:34:00 Test Item Value Reference Range Interpretation Comments MCHC (test code = MCHC) 32.5 32.0-36.0 [facility]iscoJldwubdBNVUAJPWFU0537-38-70 08:34:00 Test Item Value Reference Range Interpretation Comments RBC (test code = RBC) 5.21 4.20-5.40 [facility]iscoOeisesdMVKUGFSBDL3782-79-52 08:34:00 Test Item Value Reference Range Interpretation Comments Hgb (test code = Hgb) 13.7 12.0-16.0 [facility]iscoErmapfwZNBRTCXSRG0776-85-67 08:34:00 Test Item Value Reference Range Interpretation Comments WBC (test code = WBC) 10.6 3.7-10.4 [facility]iscoDxpxdzkWLQOVLDSRW2104-05-53 08:34:00 Test Item Value Reference Range Interpretation Comments Hct (test code = Hct) 42.2 36.0-48.0 [facility]iscoAnhrfngSPMAOCCARZ4276-67-77 08:34:00 Test Item Value Reference Range Interpretation Comments MCV (test code = MCV) 81.0 80.0-98.0 [facility]iscoMyqjymgKIIODFLBEG5048-67-89 08:34:00 Test Item Value Reference Range Interpretation Comments MCH (test code = MCH) 26.3 pg 27.0-31.0 [facility]iscoVjwlxvjYMROXCUOHM8296-37-08 08:34:00 Test Item Value Reference Range Interpretation Comments Basophils # (test code 0.1 See_Comment [Aut omated message] The = Basophils #) system which generated this result tra nsmitted reference range : <=0.2. The reference r eric was not used to int erpret this result as normal/abnormal . [facility]iscoNexnjeaPGQMIESLRS7068-20-61 08:34:00 Test Item Value Reference Range Interpretation Comments Segs (test code = Segs) 65.9 45.0-75.0 [id number] 08:34:00 Test Item Value Reference Range Interpretation Comments Lymphocytes (test code = Lymphocytes) 26.0 20.0-40.0 [facility]iscoFspwpktYZZHCSUNNI7653-17-10 08:34:00 Test Item Value Reference Range Interpretation Comments Eosinophils (test code = 1.4 See_Comment [A utomated message] The Eosinophils) system which ge nerated this result tra nsmitted reference range : <=4.0. The reference r eric was not used to int erpret this result as normal/abnormal . [facility] Fris[id number] 08:34:00 Test Item Value Reference Range Interpretation Comments Monocytes (test code = Monocytes) 6.1 2.0-12.0 [facility]iscoYcbpqijFHUNLPUGPH5699-78-12 08:34:00 Test Item Value Reference Range Interpretation Comments Basophils (test code = 0.6 See_Comment [Aut omated message] The Basophils) system which ge nerated this result tra nsmitted reference range : <=1.0. The reference r eric was not used to int erpret this result as normal/abnormal . [facility] FriscoRngeqziYATKZIWFQB0195-71-14 08:34:00 Test Item Value Reference Range Interpretation Comments Eosinophils # (test code 0.2 See_Comment [A utomated message] The = Eosinophils #) system whic h generated this result tra nsmitted reference range : <=0.5. The reference r eric was not used to int erpret this result as normal/abnormal . [facility]iscoKuaslluGKYWJCTGPR6156-86-96 08:34:00 Test Item Value Reference Range Interpretation Comments Monocytes # (test code 0.7 See_Comment [Aut omated message] The = Monocytes #) system which generated this result tra nsmitted reference range : <=0.8. The reference r eric was not used to int erpret this result as normal/abnormal . [id number] 08:34:00 Test Item Value Reference Range Interpretation Comments Lymphocytes # (test code = Lymphocytes 2.8 1.0-5.5 #) [facility]iscoYntblicENPDFMLNWY3506-17-76 08:34:00 Test Item Value Reference Range Interpretation Comments Segs-Bands # (test code = Segs-Bands #) 7.0 1.5-8.1 [facility]2015-07-24 04:51:00 Test Item Value Reference Range Interpretation Comments UA Hyal Cast (test 1 See_Comment [Automat ed message] The code = UA Hyal Cast) system which generated this result transmit thelma reference range : <=2. The reference range was not used to interpr et this result as zana l/abnormal. [facility]2015-07-24 04:51:00 Test Item Value Reference Range Interpretation Comments UA RBC (test code = 1 See_Comment [Automa thelma message] The UA RBC) system which ge nerated this result transmit thelma reference range : <=2. The reference range was not used to interpr et this result as zana l/abnormal. [facility] AND [id number] 04:51:00 Test Item Value Reference Range Interpretation Comments UA Leuk Est (test Negative (04/05/15 11:51 code = UA Leuk Est) PM) [facility] AND [id number] 04:51:00 Test Item Value Reference Range Interpretation Comments UA Sq Epi (test code = UA Sq Occasional /LPF Epi) [facility] AND [id number] 04:51:00 Test Item Value Reference Range Interpretation Comments UA WBC (test code = 2 See_Comment [Automa thelma message] The UA WBC) system which ge nerated this result transmit thelma reference range : <=5. The reference range was not used to interpr et this result as zana l/abnormal. [facility] AND [id number] 04:51:00 Test Item Value Reference Range Interpretation Comments UA Urobilinogen (test code = UA <=1.0 mg/dL 0.1-1.0 Urobilinogen) [facility] AND [id number] 04:51:00 Test Item Value Reference Range Interpretation Comments UA Protein (test code = UA Negative mg/dL Protein) [facility] AND [id number] 04:51:00 Test Item Value Reference Range Interpretation Comments UA Glucose (test code = UA Negative mg/dL Glucose) [facility] AND [id number] 04:51:00 Test Item Value Reference Range Interpretation Comments UA Ketones (test code = UA Negative mg/dL Ketones) [facility] AND [id number] 04:51:00 Test Item Value Reference Range Interpretation Comments UA Bili (test code = Negative *NA*(04/05/15 UA Bili) 11:51 PM) [facility] AND [id number] 04:51:00 Test Item Value Reference Range Interpretation Comments UA pH (test code = UA pH) 6.0 5.0-8.0 [facility] AND [id number] 04:51:00 Test Item Value Reference Range Interpretation Comments UA Turbidity (test code = Clear (04/05/15 11:51 UA Turbidity) PM) [facility] AND [id number] 04:51:00 Test Item Value Reference Range Interpretation Comments UA Spec Grav (test code = UA Spec Grav) 1.006 [facility] [id number] 04:51:00 Test Item Value Reference Range Interpretation Comments UA Color (test code = Light Yellow UA Color) *NA*(04/05/15 11:51 PM) [facility] [id number] 04:51:00 Test Item Value Reference Range Interpretation Comments UA Blood (test code = Negative (04/05/15 11:51 UA Blood) PM) [facility] [id number] 04:51:00 Test Item Value Reference Range Interpretation Comments UA Nitrite (test code Negative (04/05/15 11:51 = UA Nitrite) PM) [facility] [id number] 04:51:00 Test Item Value Reference Range Interpretation Comments UA Hyal Cast (test 1 See_Comment [Automat ed message] The code = UA Hyal Cast) system which generated this result transmit thelma reference range : <=2. The reference range was not used to interpr et this result as zana l/abnormal. [facility] [id number] 04:51:00 Test Item Value Reference Range Interpretation Comments UA RBC (test code = 1 See_Comment [Automa thelma message] The UA RBC) system which ge nerated this result transmit thelma reference range : <=2. The reference range was not used to interpr et this result as zana l/abnormal. [facility] [id number] 04:51:00 Test Item Value Reference Range Interpretation Comments UA Leuk Est (test Negative (04/05/15 11:51 code = UA Leuk Est) PM) [facility] AND [id number] 04:51:00 Test Item Value Reference Range Interpretation Comments UA Sq Epi (test code = UA Sq Occasional /LPF Epi) [facility] AND [id number] 04:51:00 Test Item Value Reference Range Interpretation Comments UA WBC (test code = 2 See_Comment [Automa thelma message] The UA WBC) system which ge nerated this result transmit thelma reference range : <=5. The reference range was not used to interpr et this result as zana l/abnormal. [facility] [id number] 04:51:00 Test Item Value Reference Range Interpretation Comments UA Urobilinogen (test code = UA <=1.0 mg/dL 0.1-1.0 Urobilinogen) [facility] AND [id number] 04:51:00 Test Item Value Reference Range Interpretation Comments UA Protein (test code = UA Negative mg/dL Protein) [facility] AND [id number] 04:51:00 Test Item Value Reference Range Interpretation Comments UA Glucose (test code = UA Negative mg/dL Glucose) [facility] AND [id number] 04:51:00 Test Item Value Reference Range Interpretation Comments UA Ketones (test code = UA Negative mg/dL Ketones) [facility] AND [id number] 04:51:00 Test Item Value Reference Range Interpretation Comments UA Bili (test code = Negative *NA*(04/05/15 UA Bili) 11:51 PM) [facility] AND [id number] 04:51:00 Test Item Value Reference Range Interpretation Comments UA pH (test code = UA pH) 6.0 5.0-8.0 [facility] AND [id number] 04:51:00 Test Item Value Reference Range Interpretation Comments UA Turbidity (test code = Clear (04/05/15 11:51 UA Turbidity) PM) [facility] AND [id number] 04:51:00 Test Item Value Reference Range Interpretation Comments UA Spec Grav (test code = UA Spec Grav) 1.006 [facility] AND [id number] 04:51:00 Test Item Value Reference Range Interpretation Comments UA Color (test code = Light Yellow UA Color) *NA*(04/05/15 11:51 PM) [facility] AND [id number] 04:51:00 Test Item Value Reference Range Interpretation Comments UA Blood (test code = Negative (04/05/15 11:51 UA Blood) PM) [facility] AND [id number] 04:51:00 Test Item Value Reference Range Interpretation Comments UA Nitrite (test code Negative (04/05/15 11:51 = UA Nitrite) PM) [facility] AND [id number] 04:51:00 Test Item Value Reference Range Interpretation Comments UA Hyal Cast (test 1 See_Comment [Automat ed message] The code = UA Hyal Cast) system which generated this result transmit thelma reference range : <=2. The reference range was not used to interpr et this result as zana l/abnormal. [facility] AND [id number] 04:51:00 Test Item Value Reference Range Interpretation Comments UA RBC (test code = 1 See_Comment [Automa thelma message] The UA RBC) system which ge nerated this result transmit thelma reference range : <=2. The reference range was not used to interpr et this result as zana l/abnormal. [facility] AND [id number] 04:51:00 Test Item Value Reference Range Interpretation Comments UA Leuk Est (test Negative (04/05/15 11:51 code = UA Leuk Est) PM) [facility] AND [id number] 04:51:00 Test Item Value Reference Range Interpretation Comments UA Sq Epi (test code = UA Sq Occasional /LPF Epi) [facility] AND [id number] 04:51:00 Test Item Value Reference Range Interpretation Comments UA WBC (test code = 2 See_Comment [Automa thelma message] The UA WBC) system which ge nerated this result transmit thelma reference range : <=5. The reference range was not used to interpr et this result as zana l/abnormal. [facility] AND [id number] 04:51:00 Test Item Value Reference Range Interpretation Comments UA Urobilinogen (test code = UA <=1.0 mg/dL 0.1-1.0 Urobilinogen) [facility] AND [id number] 04:51:00 Test Item Value Reference Range Interpretation Comments UA Protein (test code = UA Negative mg/dL Protein) [facility] AND [id number] 04:51:00 Test Item Value Reference Range Interpretation Comments UA Glucose (test code = UA Negative mg/dL Glucose) [facility] AND [id number] 04:51:00 Test Item Value Reference Range Interpretation Comments UA Ketones (test code = UA Negative mg/dL Ketones) [facility] AND [id number] 04:51:00 Test Item Value Reference Range Interpretation Comments UA Bili (test code = Negative *NA*(04/05/15 UA Bili) 11:51 PM) [facility] [id number] 04:51:00 Test Item Value Reference Range Interpretation Comments UA pH (test code = UA pH) 6.0 5.0-8.0 [facility] [id number] 04:51:00 Test Item Value Reference Range Interpretation Comments UA Turbidity (test code = Clear (04/05/15 11:51 UA Turbidity) PM) [facility] [id number] 04:51:00 Test Item Value Reference Range Interpretation Comments UA Spec Grav (test code = UA Spec Grav) 1.006 [facility] [id number] 04:51:00 Test Item Value Reference Range Interpretation Comments UA Color (test code = Light Yellow UA Color) *NA*(04/05/15 11:51 PM) [facility] [id number] 04:51:00 Test Item Value Reference Range Interpretation Comments UA Blood (test code = Negative (04/05/15 11:51 UA Blood) PM) [facility] [id number] 04:51:00 Test Item Value Reference Range Interpretation Comments UA Nitrite (test code Negative (04/05/15 11:51 = UA Nitrite) PM) [facility] [id number] 02:44:00 Test Item Value Reference Range Interpretation Comments CK MB (test code = CK MB) 1.8 0.5-3.6 [facility] [id number] 02:44:00 Test Item Value Reference Range Interpretation Comments Total CK (test code = Total CK) 109 12-191 [facility] [id number] 02:44:00 Test Item Value Reference Range Interpretation Comments Troponin-I (test code 0.02 See_Comment [Auto mated message] The = Troponin-I) system which g enerated this result transmit thelma reference range : <=0.40. The reference r eric was not used to interpr et this result as zana l/abnormal. [facility] [id number] 02:44:00 Test Item Value Reference Range Interpretation Comments CK MB Index (test 1.7 See_Comment [Automate d message] The code = CK MB Index) system w [facility] generated this result transmit thelma reference range : <=2.5. The reference range was not used to interpr et this result as zana l/abnormal. [facility]2015-07-24 02:44:00 Test Item Value Reference Range Interpretation Comments eGFR (test code = eGFR) 58 [facility]2015-07-24 02:44:00 Test Item Value Reference Range Interpretation Comments Bili Total (test code = Bili Total) 0.3 0.2-1.3 [facility]2015-07-24 02:44:00 Test Item Value Reference Range Interpretation Comments Alk Phos (test code = Alk Phos) 58 39-136 [facility]2015-07-24 02:44:00 Test Item Value Reference Range Interpretation Comments Albumin Lvl (test code = Albumin Lvl) 3.8 3.5-5.0 [facility]2015-07-24 02:44:00 Test Item Value Reference Range Interpretation Comments AST (test code = AST) 19 See_Comment [Auto mated message] The system which ge nerated this result transmit thelma reference range : <=37. The reference range was not used to interpr et this result as zana l/abnormal. [facility]2015-07-24 02:44:00 Test Item Value Reference Range Interpretation Comments Chloride Lvl (test code = Chloride Lvl) 106 95-109 [facility]2015-07-24 02:44:00 Test Item Value Reference Range Interpretation Comments Total Protein (test code = Total 7.8 6.4-8.4 Protein) [facility]2015-07-24 02:44:00 Test Item Value Reference Range Interpretation Comments CO2 (test code = CO2) 29 24-32 [facility]2015-07-24 02:44:00 Test Item Value Reference Range Interpretation Comments Calcium Lvl (test code = Calcium Lvl) 9.8 8.5-10.5 [facility]2015-07-24 02:44:00 Test Item Value Reference Range Interpretation Comments Potassium Lvl (test code = Potassium 4.7 3.5-5.1 Lvl) [facility]2015-07-24 02:44:00 Test Item Value Reference Range Interpretation Comments Glucose Lvl (test code = Glucose Lvl) 179 70-99 [facility]2015-07-24 02:44:00 Test Item Value Reference Range Interpretation Comments Sodium Lvl (test code = Sodium Lvl) 142 135-145 [facility]2015-07-24 02:44:00 Test Item Value Reference Range Interpretation Comments ALT (test code = ALT) 21 See_Comment [Auto mated message] The system which ge nerated this result transmit thelma reference range : <=65. The reference range was not used to interpr et this result as zana l/abnormal. [facility]2015-07-24 02:44:00 Test Item Value Reference Range Interpretation Comments BUN (test code = BUN) 16 7-22 [facility]2015-07-24 02:44:00 Test Item Value Reference Range Interpretation Comments Creatinine Lvl (test code = Creatinine 1.0 0.5-1.4 Lvl) [facility]2015-07-24 02:44:00 Test Item Value Reference Range Interpretation Comments A/G Ratio (test code = A/G Ratio) 1.0 0.7-1.6 [facility]2015-07-24 02:44:00 Test Item Value Reference Range Interpretation Comments B/C Ratio (test code = B/C Ratio) 16 6-25 [facility]2015-07-24 02:44:00 Test Item Value Reference Range Interpretation Comments Globulin (test code = Globulin) 4.0 2.0-4.0 [facility]2015-07-24 02:44:00 Test Item Value Reference Range Interpretation Comments AGAP (test code = AGAP) 11.7 10.0-20.0 [id number] 02:44:00 Test Item Value Reference Range Interpretation Comments Basophils # (test code 0.0 See_Comment [Aut omated message] The = Basophils #) system which generated this result tra nsmitted reference range : <=0.2. The reference r eric was not used to int erpret this result as normal/abnormal . [facility]YlrdbxzAJFMHEBDKY2093-39-47 02:44:00 Test Item Value Reference Range Interpretation Comments Eosinophils # (test code 0.4 See_Comment [A utomated message] The = Eosinophils #) system whic h generated this result tra nsmitted reference range : <=0.5. The reference r eric was not used to int erpret this result as normal/abnormal . [id number] 02:44:00 Test Item Value Reference Range Interpretation Comments Segs-Bands # (test code = Segs-Bands #) 8.1 1.5-8.1 [id number] 02:44:00 Test Item Value Reference Range Interpretation Comments Lymphocytes # (test code = Lymphocytes 1.6 1.0-5.5 #) [id number] 02:44:00 Test Item Value Reference Range Interpretation Comments Eosinophils (test code = 3.6 See_Comment [A utomated message] The Eosinophils) system which ge nerated this result tra nsmitted reference range : <=4.0. The reference r eric was not used to int erpret this result as normal/abnormal . [id number] 02:44:00 Test Item Value Reference Range Interpretation Comments Basophils (test code = 0.4 See_Comment [Aut omated message] The Basophils) system which ge nerated this result tra nsmitted reference range : <=1.0. The reference r eric was not used to int erpret this result as normal/abnormal . [facility]iscoBiznkdgKYLLIBRYST5103-97-19 02:44:00 Test Item Value Reference Range Interpretation Comments Monocytes # (test code 0.5 See_Comment [Aut omated message] The = Monocytes #) system which generated this result tra nsmitted reference range : <=0.8. The reference r eric was not used to int erpret this result as normal/abnormal . [facility]iscoGxpwjmvKSVXMTLYEW1836-00-33 02:44:00 Test Item Value Reference Range Interpretation Comments Lymphocytes (test code = Lymphocytes) 15.3 20.0-40.0 [id number] 02:44:00 Test Item Value Reference Range Interpretation Comments Segs (test code = Segs) 76.4 45.0-75.0 [facility]iscoGlxqlgeIZCRQJRSQA5885-15-30 02:44:00 Test Item Value Reference Range Interpretation Comments Monocytes (test code = Monocytes) 4.3 2.0-12.0 [facility]iscoMbmcvfcKLWDJTXNMD6413-65-61 02:44:00 Test Item Value Reference Range Interpretation Comments Hgb (test code = Hgb) 14.5 12.0-16.0 [facility]iscoOckhhrgGAONJJGIBZ8341-24-06 02:44:00 Test Item Value Reference Range Interpretation Comments MCH (test code = MCH) 26.4 pg 27.0-31.0 [facility]iscoQkkhspaUTKMJSQJWA9627-13-34 02:44:00 Test Item Value Reference Range Interpretation Comments MCHC (test code = MCHC) 31.7 32.0-36.0 [facility]iscoUnahvwqOUELZCEJDK7427-84-79 02:44:00 Test Item Value Reference Range Interpretation Comments MCV (test code = MCV) 83.4 80.0-98.0 [facility]iscoFszizduJRXGOWLCYL8958-49-57 02:44:00 Test Item Value Reference Range Interpretation Comments Hct (test code = Hct) 45.6 36.0-48.0 [facility]iscoFawlwznKKJQONRMNI2068-18-67 02:44:00 Test Item Value Reference Range Interpretation Comments RBC (test code = RBC) 5.47 4.20-5.40 [facility]iscoYkxeuzzOUVSBQACGI9616-77-73 02:44:00 Test Item Value Reference Range Interpretation Comments WBC (test code = WBC) 10.6 3.7-10.4 [id number] 02:44:00 Test Item Value Reference Range Interpretation Comments RDW (test code = RDW) 13.9 11.5-14.5 [facility]iscoKgvyoduFTSQRQZTIN4338-93-02 02:44:00 Test Item Value Reference Range Interpretation Comments MPV (test code = MPV) 9.3 7.4-10.4 [id number] 02:44:00 Test Item Value Reference Range Interpretation Comments Platelet (test code = Platelet) 267 133-450 [place] [address]2015-07-24 02:44:00 Test Item Value Reference Range Interpretation Comments Acetaminoph Lvl (test code = no gt 10-20 Acetaminoph Lvl) [place] [address]2015-07-24 02:44:00 Test Item Value Reference Range Interpretation Comments Salicylate Lvl (test 2.1 See_Comment [Autom ated message] The code = Salicylate Lvl) syste m which generated this result tra nsmitted reference range : <=30.0. The reference r eric was not used to int erpret this result as normal/abnormal . [facility] [id number] 02:44:00 Test Item Value Reference Range Interpretation Comments Etoh (%) (test code = Etoh (%)) [facility] gt [facility]OlpdxmrEJUAYGMFJV1941-40-26 02:44:00 Test Item Value Reference Range Interpretation Comments Ethanol Lvl (test code = Ethanol Lvl) no gt [facility] HospitalannCARDIAC [id number] 02:44:00 Test Item Value Reference Range Interpretation Comments CK MB (test code = CK MB) 1.8 0.5-3.6 [facility] HospitalannWysiwygAC [id number] 02:44:00 Test Item Value Reference Range Interpretation Comments Total CK (test code = Total CK) 109 12-191 [facility] HospitalGreencartAC [id number] 02:44:00 Test Item Value Reference Range Interpretation Comments Troponin-I (test code 0.02 See_Comment [Auto mated message] The = Troponin-I) system which g enerated this result transmit thelma reference range : <=0.40. The reference r eric was not used to interpr et this result as zana l/abnormal. [facility] HospitalGoodAppetito [id number] 02:44:00 Test Item Value Reference Range Interpretation Comments CK MB Index (test 1.7 See_Comment [Automate d message] The code = CK MB Index) system w [facility] generated this result transmit thelma reference range : <=2.5. The reference range was not used to interpr et this result as zana l/abnormal. [facility] [employer] [id number] 02:44:00 Test Item Value Reference Range Interpretation Comments eGFR (test code = eGFR) 58 [facility] [employer] [id number] 02:44:00 Test Item Value Reference Range Interpretation Comments Bili Total (test code = Bili Total) 0.3 0.2-1.3 [facility] [employer] [id number] 02:44:00 Test Item Value Reference Range Interpretation Comments Alk Phos (test code = Alk Phos) 58 39-136 [facility] [employer] [id number] 02:44:00 Test Item Value Reference Range Interpretation Comments Albumin Lvl (test code = Albumin Lvl) 3.8 3.5-5.0 [facility]2015-07-24 02:44:00 Test Item Value Reference Range Interpretation Comments AST (test code = AST) 19 See_Comment [Auto mated message] The system which ge nerated this result transmit thelma reference range : <=37. The reference range was not used to interpr et this result as zana l/abnormal. [facility]2015-07-24 02:44:00 Test Item Value Reference Range Interpretation Comments Chloride Lvl (test code = Chloride Lvl) 106 95-109 [facility]2015-07-24 02:44:00 Test Item Value Reference Range Interpretation Comments Total Protein (test code = Total 7.8 6.4-8.4 Protein) [facility]2015-07-24 02:44:00 Test Item Value Reference Range Interpretation Comments CO2 (test code = CO2) 29 24-32 [facility]2015-07-24 02:44:00 Test Item Value Reference Range Interpretation Comments Calcium Lvl (test code = Calcium Lvl) 9.8 8.5-10.5 [facility]2015-07-24 02:44:00 Test Item Value Reference Range Interpretation Comments Potassium Lvl (test code = Potassium 4.7 3.5-5.1 Lvl) [facility]2015-07-24 02:44:00 Test Item Value Reference Range Interpretation Comments Glucose Lvl (test code = Glucose Lvl) 179 70-99 [facility]2015-07-24 02:44:00 Test Item Value Reference Range Interpretation Comments Sodium Lvl (test code = Sodium Lvl) 142 135-145 [facility]2015-07-24 02:44:00 Test Item Value Reference Range Interpretation Comments ALT (test code = ALT) 21 See_Comment [Auto mated message] The system which ge nerated this result transmit thelma reference range : <=65. The reference range was not used to interpr et this result as zana l/abnormal. [facility]2015-07-24 02:44:00 Test Item Value Reference Range Interpretation Comments BUN (test code = BUN) 16 7-22 [facility]2015-07-24 02:44:00 Test Item Value Reference Range Interpretation Comments Creatinine Lvl (test code = Creatinine 1.0 0.5-1.4 Lvl) [facility]2015-07-24 02:44:00 Test Item Value Reference Range Interpretation Comments A/G Ratio (test code = A/G Ratio) 1.0 0.7-1.6 [facility]2015-07-24 02:44:00 Test Item Value Reference Range Interpretation Comments B/C Ratio (test code = B/C Ratio) 16 6-25 [facility]2015-07-24 02:44:00 Test Item Value Reference Range Interpretation Comments Globulin (test code = Globulin) 4.0 2.0-4.0 [facility]2015-07-24 02:44:00 Test Item Value Reference Range Interpretation Comments AGAP (test code = AGAP) 11.7 10.0-20.0 [id number] 02:44:00 Test Item Value Reference Range Interpretation Comments Basophils # (test code 0.0 See_Comment [Aut omated message] The = Basophils #) system which generated this result tra nsmitted reference range : <=0.2. The reference r eric was not used to int erpret this result as normal/abnormal . [facility]iscoYtcsthrILBRALFNEI0855-45-80 02:44:00 Test Item Value Reference Range Interpretation Comments Eosinophils # (test code 0.4 See_Comment [A utomated message] The = Eosinophils #) system whic h generated this result tra nsmitted reference range : <=0.5. The reference r eric was not used to int erpret this result as normal/abnormal . [facility]iscoZjeancdJHZCCAGTBG8052-96-27 02:44:00 Test Item Value Reference Range Interpretation Comments Segs-Bands # (test code = Segs-Bands #) 8.1 1.5-8.1 [id number] 02:44:00 Test Item Value Reference Range Interpretation Comments Lymphocytes # (test code = Lymphocytes 1.6 1.0-5.5 #) [facility]iscoIerwyayYXQYTQBUXW0761-09-41 02:44:00 Test Item Value Reference Range Interpretation Comments Eosinophils (test code = 3.6 See_Comment [A utomated message] The Eosinophils) system which ge nerated this result tra nsmitted reference range : <=4.0. The reference r eric was not used to int erpret this result as normal/abnormal . [facility]iscoHxwxbacOPIJHIGUSY7800-32-38 02:44:00 Test Item Value Reference Range Interpretation Comments Basophils (test code = 0.4 See_Comment [Aut omated message] The Basophils) system which ge nerated this result tra nsmitted reference range : <=1.0. The reference r eric was not used to int erpret this result as normal/abnormal . [facility]iscoOrwysavFTRZLZGXZF2086-78-94 02:44:00 Test Item Value Reference Range Interpretation Comments Monocytes # (test code 0.5 See_Comment [Aut omated message] The = Monocytes #) system which generated this result tra nsmitted reference range : <=0.8. The reference r eric was not used to int erpret this result as normal/abnormal . [facility]iscoMbpoowaGTZEXBBUXX0699-86-19 02:44:00 Test Item Value Reference Range Interpretation Comments Lymphocytes (test code = Lymphocytes) 15.3 20.0-40.0 [facility]iscoDpctzwwZHXJXTRERD8698-31-97 02:44:00 Test Item Value Reference Range Interpretation Comments Segs (test code = Segs) 76.4 45.0-75.0 [facility]iscoNtfzygzJXWMMNTLKH5996-58-87 02:44:00 Test Item Value Reference Range Interpretation Comments Monocytes (test code = Monocytes) 4.3 2.0-12.0 [facility]iscoBttkaddMEMDYABXKA2775-26-72 02:44:00 Test Item Value Reference Range Interpretation Comments Hgb (test code = Hgb) 14.5 12.0-16.0 [facility]iscoHnuefwtTQTGYDRKNJ3969-44-23 02:44:00 Test Item Value Reference Range Interpretation Comments MCH (test code = MCH) 26.4 pg 27.0-31.0 [facility]iscoHugplmqZONZPECRET8563-99-81 02:44:00 Test Item Value Reference Range Interpretation Comments MCHC (test code = MCHC) 31.7 32.0-36.0 [facility]iscoWvyelllQBNXTMOPME4016-77-73 02:44:00 Test Item Value Reference Range Interpretation Comments MCV (test code = MCV) 83.4 80.0-98.0 [facility]iscoMrccbaqCOAOVEKOAG3897-07-91 02:44:00 Test Item Value Reference Range Interpretation Comments Hct (test code = Hct) 45.6 36.0-48.0 [facility]iscoUiimwcoAGVGPKTANH6743-07-20 02:44:00 Test Item Value Reference Range Interpretation Comments RBC (test code = RBC) 5.47 4.20-5.40 [facility]iscoOfoinjxIWHIYQCSEL7558-70-12 02:44:00 Test Item Value Reference Range Interpretation Comments WBC (test code = WBC) 10.6 3.7-10.4 [facility]iscoLysgqfzWIMWEZSASS4039-03-85 02:44:00 Test Item Value Reference Range Interpretation Comments RDW (test code = RDW) 13.9 11.5-14.5 [facility]iscoAkxzvdsSSPILPCKUN6459-20-08 02:44:00 Test Item Value Reference Range Interpretation Comments MPV (test code = MPV) 9.3 7.4-10.4 [facility]iscoRyffefbIVFJEZKMUC3439-01-40 02:44:00 Test Item Value Reference Range Interpretation Comments Platelet (test code = Platelet) 267 133-450 [place] [address]2015-07-24 02:44:00 Test Item Value Reference Range Interpretation Comments Acetaminoph Lvl (test code = no gt 10-20 Acetaminoph Lvl) [place] [address]2015-07-24 02:44:00 Test Item Value Reference Range Interpretation Comments Salicylate Lvl (test 2.1 See_Comment [Autom ated message] The code = Salicylate Lvl) syste m which generated this result tra nsmitted reference range : <=30.0. The reference r eric was not used to int erpret this result as normal/abnormal . [facility]rov[facility]niZHDCXYUWSJ7578-[facility] 02:44:00 Test Item Value Reference Range Interpretation Comments Etoh (%) (test code = Etoh (%)) [facility] gt [facility]DnjhavvQNCOPKPPPS8367-84-79 02:44:00 Test Item Value Reference Range Interpretation Comments Ethanol Lvl (test code = Ethanol Lvl) no gt [facility] [id number] 02:44:00 Test Item Value Reference Range Interpretation Comments CK MB (test code = CK MB) 1.8 0.5-3.6 [facility]CAR[facility] [id number] 02:44:00 Test Item Value Reference Range Interpretation Comments Total CK (test code = Total CK) 109 12-191 [facility] [employer] [id number] 02:44:00 Test Item Value Reference Range Interpretation Comments Troponin-I (test code 0.02 See_Comment [Auto mated message] The = Troponin-I) system which g enerated this result transmit thelma reference range : <=0.40. The reference r eric was not used to interpr et this result as zana l/abnormal. [facility] [employer] [id number] 02:44:00 Test Item Value Reference Range Interpretation Comments CK MB Index (test 1.7 See_Comment [Automate d message] The code = CK MB Index) system w [facility] generated this result transmit thelma reference range : <=2.5. The reference range was not used to interpr et this result as zana l/abnormal. [facility] [place] [employer] [id number] 02:44:00 Test Item Value Reference Range Interpretation Comments eGFR (test code = eGFR) 58 [facility] [place] [employer] [id number] 02:44:00 Test Item Value Reference Range Interpretation Comments Bili Total (test code = Bili Total) 0.3 0.2-1.3 [facility] [place] [employer] [id number] 02:44:00 Test Item Value Reference Range Interpretation Comments Alk Phos (test code = Alk Phos) 58 39-136 [facility] [place] [employer] [id number] 02:44:00 Test Item Value Reference Range Interpretation Comments Albumin Lvl (test code = Albumin Lvl) 3.8 3.5-5.0 [facility] [place] [employer] [id number] 02:44:00 Test Item Value Reference Range Interpretation Comments AST (test code = AST) 19 See_Comment [Auto mated message] The system which ge nerated this result transmit thelma reference range : <=37. The reference range was not used to interpr et this result as zana l/abnormal. [facility] [place] [employer] [id number] 02:44:00 Test Item Value Reference Range Interpretation Comments Chloride Lvl (test code = Chloride Lvl) 106 95-109 [facility] [place] [employer] [id number] 02:44:00 Test Item Value Reference Range Interpretation Comments Total Protein (test code = Total 7.8 6.4-8.4 Protein) [facility] [place] [employer] [id number] 02:44:00 Test Item Value Reference Range Interpretation Comments CO2 (test code = CO2) 29 24-32 [facility]2015-07-24 02:44:00 Test Item Value Reference Range Interpretation Comments Calcium Lvl (test code = Calcium Lvl) 9.8 8.5-10.5 [facility]2015-07-24 02:44:00 Test Item Value Reference Range Interpretation Comments Potassium Lvl (test code = Potassium 4.7 3.5-5.1 Lvl) [facility]2015-07-24 02:44:00 Test Item Value Reference Range Interpretation Comments Glucose Lvl (test code = Glucose Lvl) 179 70-99 [facility]2015-07-24 02:44:00 Test Item Value Reference Range Interpretation Comments Sodium Lvl (test code = Sodium Lvl) 142 135-145 [facility]2015-07-24 02:44:00 Test Item Value Reference Range Interpretation Comments ALT (test code = ALT) 21 See_Comment [Auto mated message] The system which ge nerated this result transmit thelma reference range : <=65. The reference range was not used to interpr et this result as znaa l/abnormal. [facility]2015-07-24 02:44:00 Test Item Value Reference Range Interpretation Comments BUN (test code = BUN) 16 7- [facility]2015-07-24 02:44:00 Test Item Value Reference Range Interpretation Comments Creatinine Lvl (test code = Creatinine 1.0 0.5-1.4 Lvl) [facility]2015-07-24 02:44:00 Test Item Value Reference Range Interpretation Comments A/G Ratio (test code = A/G Ratio) 1.0 0.7-1.6 [facility]2015-07-24 02:44:00 Test Item Value Reference Range Interpretation Comments B/C Ratio (test code = B/C Ratio) 16 6-25 [facility]2015-07-24 02:44:00 Test Item Value Reference Range Interpretation Comments Globulin (test code = Globulin) 4.0 2.0-4.0 [facility]2015-07-24 02:44:00 Test Item Value Reference Range Interpretation Comments AGAP (test code = AGAP) 11.7 10.0-20.0 [id number] 02:44:00 Test Item Value Reference Range Interpretation Comments Basophils # (test code 0.0 See_Comment [Aut omated message] The = Basophils #) system which generated this result tra nsmitted reference range : <=0.2. The reference r eric was not used to int erpret this result as normal/abnormal . [id number] 02:44:00 Test Item Value Reference Range Interpretation Comments Eosinophils # (test code 0.4 See_Comment [A utomated message] The = Eosinophils #) system whic h generated this result tra nsmitted reference range : <=0.5. The reference r eric was not used to int erpret this result as normal/abnormal . [id number] 02:44:00 Test Item Value Reference Range Interpretation Comments Segs-Bands # (test code = Segs-Bands #) 8.1 1.5-8.1 [id number] 02:44:00 Test Item Value Reference Range Interpretation Comments Lymphocytes # (test code = Lymphocytes 1.6 1.0-5.5 #) [facility]is[id number] 02:44:00 Test Item Value Reference Range Interpretation Comments Eosinophils (test code = 3.6 See_Comment [A utomated message] The Eosinophils) system which ge nerated this result tra nsmitted reference range : <=4.0. The reference r eric was not used to int erpret this result as normal/abnormal . [id number] 02:44:00 Test Item Value Reference Range Interpretation Comments Basophils (test code = 0.4 See_Comment [Aut omated message] The Basophils) system which ge nerated this result tra nsmitted reference range : <=1.0. The reference r eric was not used to int erpret this result as normal/abnormal . [facility]iscoRsclgfrOHIGFKBYWS4356-05-20 02:44:00 Test Item Value Reference Range Interpretation Comments Monocytes # (test code 0.5 See_Comment [Aut omated message] The = Monocytes #) system which generated this result tra nsmitted reference range : <=0.8. The reference r eric was not used to int erpret this result as normal/abnormal . [facility]iscoSflqhioAVBLLAUPHE6439-28-41 02:44:00 Test Item Value Reference Range Interpretation Comments Lymphocytes (test code = Lymphocytes) 15.3 20.0-40.0 [facility]iscoKdmktpzFDBMQCMYLI7866-77-67 02:44:00 Test Item Value Reference Range Interpretation Comments Segs (test code = Segs) 76.4 45.0-75.0 [facility]is[id number] 02:44:00 Test Item Value Reference Range Interpretation Comments Monocytes (test code = Monocytes) 4.3 2.0-12.0 [facility]iscoNlqnulfLQSSDZBTVF3041-46-33 02:44:00 Test Item Value Reference Range Interpretation Comments Hgb (test code = Hgb) 14.5 12.0-16.0 [facility]iscoUaifojpKIADBBPMZC5623-10-49 02:44:00 Test Item Value Reference Range Interpretation Comments MCH (test code = MCH) 26.4 pg 27.0-31.0 [facility]iscoZmuqkakQFBFZYGSMG8937-56-00 02:44:00 Test Item Value Reference Range Interpretation Comments MCHC (test code = MCHC) 31.7 32.0-36.0 [id number] 02:44:00 Test Item Value Reference Range Interpretation Comments MCV (test code = MCV) 83.4 80.0-98.0 [id number] 02:44:00 Test Item Value Reference Range Interpretation Comments Hct (test code = Hct) 45.6 36.0-48.0 [facility]iscoIveymbzWTOWPIAPUR3932-44-89 02:44:00 Test Item Value Reference Range Interpretation Comments RBC (test code = RBC) 5.47 4.20-5.40 [facility]iscoHmjoksgPXZUBWSIMV2443-06-35 02:44:00 Test Item Value Reference Range Interpretation Comments WBC (test code = WBC) 10.6 3.7-10.4 [facility]iscoMoyrloaXLOVLFDRFN4194-69-79 02:44:00 Test Item Value Reference Range Interpretation Comments RDW (test code = RDW) 13.9 11.5-14.5 [facility]iscoPkhpvftYLLQNEJEDA6524-44-08 02:44:00 Test Item Value Reference Range Interpretation Comments MPV (test code = MPV) 9.3 7.4-10.4 [facility]iscoLnemecxBJAKIPIXDL9572-78-54 02:44:00 Test Item Value Reference Range Interpretation Comments Platelet (test code = Platelet) 267 133-450 [place] [address]2015-07-24 02:44:00 Test Item Value Reference Range Interpretation Comments Acetaminoph Lvl (test code = no gt 10-20 Acetaminoph Lvl) [place] [address]2015-07-24 02:44:00 Test Item Value Reference Range Interpretation Comments Salicylate Lvl (test 2.1 See_Comment [Autom ated message] The code = Salicylate Lvl) syste m which generated this result tra nsmitted reference range : <=30.0. The reference r eric was not used to int erpret this result as normal/abnormal . [place] [address]2015-07-24 02:44:00 Test Item Value Reference Range Interpretation Comments Etoh (%) (test code = Etoh (%)) no gt [place] [address]2015-07-24 02:44:00 Test Item Value Reference Range Interpretation Comments Ethanol Lvl (test code = Ethanol Lvl) no gt [facility]2014-08-03 20:50:00 Test Item Value Reference Range Interpretation Comments Magnesium Lvl (test code = Magnesium 1.5 1.8-2.4 Lvl) [facility] [id number] 20:50:00 Test Item Value Reference Range Interpretation Comments Phosphorus (test code = Phosphorus) 3.5 2.5-4.5 [facility] [employer] [id number] 20:50:00 Test Item Value Reference Range Interpretation Comments eGFR (test code = eGFR) 47 [facility]2014-08-03 20:50:00 Test Item Value Reference Range Interpretation Comments Chloride Lvl (test code = Chloride Lvl) 100 95-109 [facility] [id number] 20:50:00 Test Item Value Reference Range Interpretation Comments Sodium Lvl (test code = Sodium Lvl) 135 135-145 [facility] [employer] [id number] 20:50:00 Test Item Value Reference Range Interpretation Comments Potassium Lvl (test code = Potassium 4.9 3.5-5.1 Lvl) [facility] [id number] 20:50:00 Test Item Value Reference Range Interpretation Comments Glucose Lvl (test code = Glucose Lvl) 240 70-99 [facility]2014-08-03 20:50:00 Test Item Value Reference Range Interpretation Comments BUN (test code = BUN) 25 7-22 [facility]2014-08-03 20:50:00 Test Item Value Reference Range Interpretation Comments CO2 (test code = CO2) 29 24-32 [facility]2014-08-03 20:50:00 Test Item Value Reference Range Interpretation Comments AGAP (test code = AGAP) 10.9 10.0-20.0 [facility]2014-08-03 20:50:00 Test Item Value Reference Range Interpretation Comments Creatinine Lvl (test code = Creatinine 1.2 0.5-1.4 Lvl) [facility]2014-08-03 20:50:00 Test Item Value Reference Range Interpretation Comments Calcium Lvl (test code = Calcium Lvl) 9.3 8.5-10.5 [facility]iscoUyeqyylYJJITYFMMR4917-54-34 20:50:00 Test Item Value Reference Range Interpretation Comments MPV (test code = MPV) 9.6 7.4-10.4 [facility]iscoX[id number] 20:50:00 Test Item Value Reference Range Interpretation Comments WBC (test code = WBC) 9.7 3.7-10.4 [facility]iscoZbuuywsSSTRJJRXLZ7235-64-80 20:50:00 Test Item Value Reference Range Interpretation Comments RDW (test code = RDW) 13.8 11.5-14.5 [facility]iscoPhpeyxxBWYMHHPOKH8016-83-50 20:50:00 Test Item Value Reference Range Interpretation Comments MCHC (test code = MCHC) 32.9 32.0-36.0 [facility]iscoZngyrfgBHUWWNCATU5721-87-88 20:50:00 Test Item Value Reference Range Interpretation Comments RBC (test code = RBC) 4.95 4.20-5.40 [facility]iscoRvzxuliSLCQRXWAEL0268-65-94 20:50:00 Test Item Value Reference Range Interpretation Comments MCV (test code = MCV) 82.4 81.0-99.0 [facility]iscoVlmgsxzJNFKJLWRLR4139-00-44 20:50:00 Test Item Value Reference Range Interpretation Comments Hgb (test code = Hgb) 13.4 12.0-16.0 [facility]iscoWxkbjkpJKSSDPVBYA1077-49-87 20:50:00 Test Item Value Reference Range Interpretation Comments Platelet (test code = Platelet) 275 133-450 [facility]iscoEptogrzWTHNSHDAQE7255-61-20 20:50:00 Test Item Value Reference Range Interpretation Comments Hct (test code = Hct) 40.8 36.0-48.0 [facility]iscoIxzquwqUASBWJODPJ5268-24-06 20:50:00 Test Item Value Reference Range Interpretation Comments MCH (test code = MCH) 27.1 pg 27.0-31.0 [facility]iscoJxehtwmINJHEICDES8301-41-26 20:50:00 Test Item Value Reference Range Interpretation Comments Monocytes # (test code 0.3 See_Comment [Aut omated message] The = Monocytes #) system which generated this result tra nsmitted reference range : <=0.8. The reference r eric was not used to int erpret this result as normal/abnormal . [facility]iscoCodkwsvCYJDKKPTEO4923-51-52 20:50:00 Test Item Value Reference Range Interpretation Comments Basophils # (test code 0.0 See_Comment [Aut omated message] The = Basophils #) system which generated this result tra nsmitted reference range : <=0.2. The reference r eric was not used to int erpret this result as normal/abnormal . [facility]iscoWzilqtlVHDVGPVKYM2043-15-92 20:50:00 Test Item Value Reference Range Interpretation Comments Eosinophils # (test code 0.0 See_Comment [A utomated message] The = Eosinophils #) system whic h generated this result tra nsmitted reference range : <=0.5. The reference r eric was not used to int erpret this result as normal/abnormal . [facility]is[id number] 20:50:00 Test Item Value Reference Range Interpretation Comments Segs-Bands # (test code = Segs-Bands #) 8.7 1.5-8.1 [facility]is[id number] 20:50:00 Test Item Value Reference Range Interpretation Comments Lymphocytes # (test code = Lymphocytes 0.8 1.0-5.5 #) [facility]iscoGishujoDNRAIMDFRZ3102-02-00 20:50:00 Test Item Value Reference Range Interpretation Comments Eosinophils (test code = 0.0 See_Comment [A utomated message] The Eosinophils) system which ge nerated this result tra nsmitted reference range : <=4.0. The reference r eric was not used to int erpret this result as normal/abnormal . [facility]iscoIvpfhogYRLKAKHQYB9332-09-89 20:50:00 Test Item Value Reference Range Interpretation Comments Basophils (test code = 0.2 See_Comment [Aut omated message] The Basophils) system which ge nerated this result tra nsmitted reference range : <=1.0. The reference r eric was not used to int erpret this result as normal/abnormal . [facility]iscoVisnzmqCGKWETIXRR8894-78-62 20:50:00 Test Item Value Reference Range Interpretation Comments Monocytes (test code = Monocytes) 2.7 2.0-12.0 [facility]iscoCxvxzqhURQYDRVYDN0237-69-33 20:50:00 Test Item Value Reference Range Interpretation Comments Lymphocytes (test code = Lymphocytes) 8.1 20.0-40.0 [id number] 20:50:00 Test Item Value Reference Range Interpretation Comments Segs (test code = Segs) 89.0 45.0-75.0 [facility]2014-08-03 20:50:00 Test Item Value Reference Range Interpretation Comments Magnesium Lvl (test code = Magnesium 1.5 1.8-2.4 Lvl) [facility]2014-08-03 20:50:00 Test Item Value Reference Range Interpretation Comments Phosphorus (test code = Phosphorus) 3.5 2.5-4.5 [facility]2014-08-03 20:50:00 Test Item Value Reference Range Interpretation Comments eGFR (test code = eGFR) 47 [facility]2014-08-03 20:50:00 Test Item Value Reference Range Interpretation Comments Chloride Lvl (test code = Chloride Lvl) 100 95-109 [facility]2014-08-03 20:50:00 Test Item Value Reference Range Interpretation Comments Sodium Lvl (test code = Sodium Lvl) 135 135-145 [facility]2014-08-03 20:50:00 Test Item Value Reference Range Interpretation Comments Potassium Lvl (test code = Potassium 4.9 3.5-5.1 Lvl) [facility]2014-08-03 20:50:00 Test Item Value Reference Range Interpretation Comments Glucose Lvl (test code = Glucose Lvl) 240 70-99 [facility]2014-08-03 20:50:00 Test Item Value Reference Range Interpretation Comments BUN (test code = BUN) 25 7-22 [facility]2014-08-03 20:50:00 Test Item Value Reference Range Interpretation Comments CO2 (test code = CO2) 29 24-32 [facility]2014-08-03 20:50:00 Test Item Value Reference Range Interpretation Comments AGAP (test code = AGAP) 10.9 10.0-20.0 [facility]2014-08-03 20:50:00 Test Item Value Reference Range Interpretation Comments Creatinine Lvl (test code = Creatinine 1.2 0.5-1.4 Lvl) [facility]2014-08-03 20:50:00 Test Item Value Reference Range Interpretation Comments Calcium Lvl (test code = Calcium Lvl) 9.3 8.5-10.5 [facility]iscoOpduajbURSCDEMUQO4161-18-38 20:50:00 Test Item Value Reference Range Interpretation Comments MPV (test code = MPV) 9.6 7.4-10.4 [facility]iscoFucqnxyHRMLGNXKCJ9606-84-94 20:50:00 Test Item Value Reference Range Interpretation Comments WBC (test code = WBC) 9.7 3.7-10.4 [facility]iscoGnvfwhoYPPANEFLHU8933-03-73 20:50:00 Test Item Value Reference Range Interpretation Comments RDW (test code = RDW) 13.8 11.5-14.5 [facility]iscoKsugwndZSEKRAZMKV0055-24-05 20:50:00 Test Item Value Reference Range Interpretation Comments MCHC (test code = MCHC) 32.9 32.0-36.0 [facility]iscoNcvpcxzYDJSULVZQX1886-28-80 20:50:00 Test Item Value Reference Range Interpretation Comments RBC (test code = RBC) 4.95 4.20-5.40 [facility]iscoUjmeociICDNDAWONN4701-20-20 20:50:00 Test Item Value Reference Range Interpretation Comments MCV (test code = MCV) 82.4 81.0-99.0 [facility]iscoXxmytlpHNNANMAMEA6366-61-05 20:50:00 Test Item Value Reference Range Interpretation Comments Hgb (test code = Hgb) 13.4 12.0-16.0 [facility]iscoTyefgxlIMQZRTXPTK8378-89-14 20:50:00 Test Item Value Reference Range Interpretation Comments Platelet (test code = Platelet) 275 133-450 [facility]iscoUscigovBNDHSASWED2447-58-13 20:50:00 Test Item Value Reference Range Interpretation Comments Hct (test code = Hct) 40.8 36.0-48.0 [facility]iscoHakyldiUVGWFZWZJT5456-98-22 20:50:00 Test Item Value Reference Range Interpretation Comments MCH (test code = MCH) 27.1 pg 27.0-31.0 [facility]iscoKqsagajLYLKLAMQOP2480-96-43 20:50:00 Test Item Value Reference Range Interpretation Comments Monocytes # (test code 0.3 See_Comment [Aut omated message] The = Monocytes #) system which generated this result tra nsmitted reference range : <=0.8. The reference r eric was not used to int erpret this result as normal/abnormal . [facility]iscoDelcamqUUYVVCBSJV2161-29-45 20:50:00 Test Item Value Reference Range Interpretation Comments Basophils # (test code 0.0 See_Comment [Aut omated message] The = Basophils #) system which generated this result tra nsmitted reference range : <=0.2. The reference r eric was not used to int erpret this result as normal/abnormal . [facility]iscoItkepfzQDPRILIVPE6222-48-67 20:50:00 Test Item Value Reference Range Interpretation Comments Eosinophils # (test code 0.0 See_Comment [A utomated message] The = Eosinophils #) system whic h generated this result tra nsmitted reference range : <=0.5. The reference r eric was not used to int erpret this result as normal/abnormal . [facility]iscoLqktpadMHBLFJZYNO0783-60-13 20:50:00 Test Item Value Reference Range Interpretation Comments Segs-Bands # (test code = Segs-Bands #) 8.7 1.5-8.1 [facility]iscoAkibvmrOHVDSQQJUT1277-86-72 20:50:00 Test Item Value Reference Range Interpretation Comments Lymphocytes # (test code = Lymphocytes 0.8 1.0-5.5 #) [facility]iscoFfzeblxDKOOOCYUFO4578-32-64 20:50:00 Test Item Value Reference Range Interpretation Comments Eosinophils (test code = 0.0 See_Comment [A utomated message] The Eosinophils) system which ge nerated this result tra nsmitted reference range : <=4.0. The reference r eric was not used to int erpret this result as normal/abnormal . [facility]iscoHcaamcgIFQABDJVWN6372-63-95 20:50:00 Test Item Value Reference Range Interpretation Comments Basophils (test code = 0.2 See_Comment [Aut omated message] The Basophils) system which ge nerated this result tra nsmitted reference range : <=1.0. The reference r eric was not used to int erpret this result as normal/abnormal . [facility]iscoQlnlzhmPAFGIDDFMU6332-10-34 20:50:00 Test Item Value Reference Range Interpretation Comments Monocytes (test code = Monocytes) 2.7 2.0-12.0 [facility]iscoXoyogtkNIVYAVQNJU4081-52-86 20:50:00 Test Item Value Reference Range Interpretation Comments Lymphocytes (test code = Lymphocytes) 8.1 20.0-40.0 [facility]iscoKwmgatlEWUIWXPCAF5477-15-38 20:50:00 Test Item Value Reference Range Interpretation Comments Segs (test code = Segs) 89.0 45.0-75.0 [facility]2014-08-03 20:50:00 Test Item Value Reference Range Interpretation Comments Magnesium Lvl (test code = Magnesium 1.5 1.8-2.4 Lvl) [facility]2014-08-03 20:50:00 Test Item Value Reference Range Interpretation Comments Phosphorus (test code = Phosphorus) 3.5 2.5-4.5 [facility]2014-08-03 20:50:00 Test Item Value Reference Range Interpretation Comments eGFR (test code = eGFR) 47 [facility]2014-08-03 20:50:00 Test Item Value Reference Range Interpretation Comments Chloride Lvl (test code = Chloride Lvl) 100 95-109 [facility]2014-08-03 20:50:00 Test Item Value Reference Range Interpretation Comments Sodium Lvl (test code = Sodium Lvl) 135 135-145 [facility]2014-08-03 20:50:00 Test Item Value Reference Range Interpretation Comments Potassium Lvl (test code = Potassium 4.9 3.5-5.1 Lvl) [facility]2014-08-03 20:50:00 Test Item Value Reference Range Interpretation Comments Glucose Lvl (test code = Glucose Lvl) 240 70-99 [facility]2014-08-03 20:50:00 Test Item Value Reference Range Interpretation Comments BUN (test code = BUN) 25 7-22 [facility]2014-08-03 20:50:00 Test Item Value Reference Range Interpretation Comments CO2 (test code = CO2) 29 24-32 [facility]2014-08-03 20:50:00 Test Item Value Reference Range Interpretation Comments AGAP (test code = AGAP) 10.9 10.0-20.0 [facility]2014-08-03 20:50:00 Test Item Value Reference Range Interpretation Comments Creatinine Lvl (test code = Creatinine 1.2 0.5-1.4 Lvl) [facility]2014-08-03 20:50:00 Test Item Value Reference Range Interpretation Comments Calcium Lvl (test code = Calcium Lvl) 9.3 8.5-10.5 [facility]iscoHhocunqNMEAVFJRWF9380-60-19 20:50:00 Test Item Value Reference Range Interpretation Comments MPV (test code = MPV) 9.6 7.4-10.4 [facility]iscoGmcjdepZWPSAYIDSN6876-69-04 20:50:00 Test Item Value Reference Range Interpretation Comments WBC (test code = WBC) 9.7 3.7-10.4 [facility]iscoYyitncaTRZRNSLQVN1712-51-96 20:50:00 Test Item Value Reference Range Interpretation Comments RDW (test code = RDW) 13.8 11.5-14.5 [facility]iscoEnikbggOFFBXIPIRM4497-56-78 20:50:00 Test Item Value Reference Range Interpretation Comments MCHC (test code = MCHC) 32.9 32.0-36.0 [facility]iscoNzjomfkHVFERQWPAO0090-99-39 20:50:00 Test Item Value Reference Range Interpretation Comments RBC (test code = RBC) 4.95 4.20-5.40 [facility]iscoIskseriSWQNZCFXBY2152-44-64 20:50:00 Test Item Value Reference Range Interpretation Comments MCV (test code = MCV) 82.4 81.0-99.0 [facility]iscoHrqcobkPIQBFKWBLL3728-20-17 20:50:00 Test Item Value Reference Range Interpretation Comments Hgb (test code = Hgb) 13.4 12.0-16.0 [facility]iscoLrjaiauBPITSMUXWO3499-97-13 20:50:00 Test Item Value Reference Range Interpretation Comments Platelet (test code = Platelet) 275 133-450 [facility]iscoTcdhemyUWOFMHCZSU0327-71-90 20:50:00 Test Item Value Reference Range Interpretation Comments Hct (test code = Hct) 40.8 36.0-48.0 [facility]iscoOqcvzdxGHZDWLVFIO1708-87-82 20:50:00 Test Item Value Reference Range Interpretation Comments MCH (test code = MCH) 27.1 pg 27.0-31.0 [facility] FriscoBvckqkkWSHFMWEKBH2895-22-47 20:50:00 Test Item Value Reference Range Interpretation Comments Monocytes # (test code 0.3 See_Comment [Aut omated message] The = Monocytes #) system which generated this result tra nsmitted reference range : <=0.8. The reference r eric was not used to int erpret this result as normal/abnormal . [facility]UO6897[facility]-10 20:50:00 Test Item Value Reference Range Interpretation Comments Basophils # (test code 0.0 See_Comment [Aut omated message] The = Basophils #) system which generated this result tra nsmitted reference range : <=0.2. The reference r eric was not used to int erpret this result as normal/abnormal . [facility]YfgwoxtXIHQGOCTIC9142-05-53 20:50:00 Test Item Value Reference Range Interpretation Comments Eosinophils # (test code 0.0 See_Comment [A utomated message] The = Eosinophils #) system whic h generated this result tra nsmitted reference range : <=0.5. The reference r eric was not used to int erpret this result as normal/abnormal . [facility]KtifluyMWTKOWRDMU4517-27-53 20:50:00 Test Item Value Reference Range Interpretation Comments Segs-Bands # (test code = Segs-Bands #) 8.7 1.5-8.1 [facility]SjybzudQZLJUZLDND7277-99-17 20:50:00 Test Item Value Reference Range Interpretation Comments Lymphocytes # (test code = Lymphocytes 0.8 1.0-5.5 #) [facility]HhoyrgqGUKZHEZUIX9206-57-68 20:50:00 Test Item Value Reference Range Interpretation Comments Eosinophils (test code = 0.0 See_Comment [A utomated message] The Eosinophils) system which ge nerated this result tra nsmitted reference range : <=4.0. The reference r eric was not used to int erpret this result as normal/abnormal . [facility]iscoWlcrwvdGJHTHQYZAB5703-10-76 20:50:00 Test Item Value Reference Range Interpretation Comments Basophils (test code = 0.2 See_Comment [Aut omated message] The Basophils) system which ge nerated this result tra nsmitted reference range : <=1.0. The reference r eric was not used to int erpret this result as normal/abnormal . [facility]iscoWvfysfuBVRVEIOJWC5439-26-66 20:50:00 Test Item Value Reference Range Interpretation Comments Monocytes (test code = Monocytes) 2.7 2.0-12.0 [facility]MudfxfhHOGLZXAWYA9382-16-20 20:50:00 Test Item Value Reference Range Interpretation Comments Lymphocytes (test code = Lymphocytes) 8.1 20.0-40.0 [facility]TfvfhdiZRWWLHGNYJ8251-35-16 20:50:00 Test Item Value Reference Range Interpretation Comments Segs (test code = Segs) 89.0 45.0-75.0 [facility]2014-08-01 08:38:00 Test Item Value Reference Range Interpretation Comments eGFR (test code = eGFR) 52 [facility]2014-08-01 08:38:00 Test Item Value Reference Range Interpretation Comments Chloride Lvl (test code = Chloride Lvl) 99 95-109 [facility]2014-08-01 08:38:00 Test Item Value Reference Range Interpretation Comments CO2 (test code = CO2) 29 24-32 [facility]2014-08-01 08:38:00 Test Item Value Reference Range Interpretation Comments Glucose Lvl (test code = Glucose Lvl) 309 70-99 [facility]2014-08-01 08:38:00 Test Item Value Reference Range Interpretation Comments Calcium Lvl (test code = Calcium Lvl) 8.9 8.5-10.5 [facility]2014-08-01 08:38:00 Test Item Value Reference Range Interpretation Comments BUN (test code = BUN) 27 7-22 [facility]2014-08-01 08:38:00 Test Item Value Reference Range Interpretation Comments Sodium Lvl (test code = Sodium Lvl) 135 135-145 [facility]2014-08-01 08:38:00 Test Item Value Reference Range Interpretation Comments Creatinine Lvl (test code = Creatinine 1.1 0.5-1.4 Lvl) [facility]2014-08-01 08:38:00 Test Item Value Reference Range Interpretation Comments Potassium Lvl (test code = Potassium 4.7 3.5-5.1 Lvl) [facility]2014-08-01 08:38:00 Test Item Value Reference Range Interpretation Comments Total Protein (test code = Total 6.5 6.4-8.4 Protein) [facility]2014-08-01 08:38:00 Test Item Value Reference Range Interpretation Comments Albumin Lvl (test code = Albumin Lvl) 2.6 3.5-5.0 [facility]2014-08-01 08:38:00 Test Item Value Reference Range Interpretation Comments ALT (test code = ALT) 15 See_Comment [Auto mated message] The system which ge nerated this result transmit thelma reference range : <=65. The reference range was not used to interpr et this result as zana l/abnormal. [facility]2014-08-01 08:38:00 Test Item Value Reference Range Interpretation Comments AST (test code = AST) 10 See_Comment [Auto mated message] The system which ge nerated this result transmit thelma reference range : <=37. The reference range was not used to interpr et this result as zana l/abnormal. [facility]2014-08-01 08:38:00 Test Item Value Reference Range Interpretation Comments Alk Phos (test code = Alk Phos) 41 39-136 [facility]2014-08-01 08:38:00 Test Item Value Reference Range Interpretation Comments Bili Total (test code = Bili Total) 0.4 0.2-1.3 [place] 014854-08-01 08:38:00 Test Item Value Reference Range Interpretation Comments A/G Ratio (test code = A/G Ratio) 0.7 0.7-1.6 [place] [address]-08-01 08:38:00 Test Item Value Reference Range Interpretation Comments Globulin (test code = Globulin) 3.9 2.0-4.0 [place] 014854-08-01 08:38:00 Test Item Value Reference Range Interpretation Comments B/C Ratio (test code = B/C Ratio) 25 6-25 [facility]2014-08-01 08:38:00 Test Item Value Reference Range Interpretation Comments AGAP (test code = AGAP) 11.7 10.0-20.0 [facility]2014-08-01 08:38:00 Test Item Value Reference Range Interpretation Comments Magnesium Lvl (test code = Magnesium 1.8 1.8-2.4 Lvl) [facility]2014-08-01 08:38:00 Test Item Value Reference Range Interpretation Comments Phosphorus (test code = Phosphorus) 2.4 2.5-4.5 [facility]IiuffbaSYUXKSWBWM6674-26-81 08:38:00 Test Item Value Reference Range Interpretation Comments WBC (test code = WBC) 18.1 3.7-10.4 [facility]iscoLsmkgapJUAWPALNAP9793-26-27 08:38:00 Test Item Value Reference Range Interpretation Comments Platelet (test code = Platelet) 248 133-450 [facility]iscoJxrlcgwBVVTNYRDWW0497-74-19 08:38:00 Test Item Value Reference Range Interpretation Comments RDW (test code = RDW) 13.8 11.5-14.5 [facility]iscoHaiebjbQKYEFJEXYM6411-72-19 08:38:00 Test Item Value Reference Range Interpretation Comments MCHC (test code = MCHC) 32.2 32.0-36.0 [facility]iscoNsraodrILCRHGZZZP1940-10-92 08:38:00 Test Item Value Reference Range Interpretation Comments MCH (test code = MCH) 26.8 pg 27.0-31.0 [facility]iscoQpprenwUWBMCPLZSK5113-35-69 08:38:00 Test Item Value Reference Range Interpretation Comments Hct (test code = Hct) 37.1 36.0-48.0 [facility]iscoLonzfltHJPFLZMJRX2221-06-90 08:38:00 Test Item Value Reference Range Interpretation Comments MCV (test code = MCV) 83.2 81.0-99.0 [facility]iscoXpoxwylMTSMFUGVDB8952-15-86 08:38:00 Test Item Value Reference Range Interpretation Comments RBC (test code = RBC) 4.47 4.20-5.40 [facility]iscoAocicdnOYYKBWOOET6687-19-20 08:38:00 Test Item Value Reference Range Interpretation Comments Hgb (test code = Hgb) 12.0 12.0-16.0 [facility]iscoXlickfhHSXTFVOMLV3456-14-33 08:38:00 Test Item Value Reference Range Interpretation Comments MPV (test code = MPV) 9.0 7.4-10.4 [facility]iscoRzwnlrtLQXEPDBYKI6811-77-24 08:38:00 Test Item Value Reference Range Interpretation Comments Basophils # (test code 0.0 See_Comment [Aut omated message] The = Basophils #) system which generated this result tra nsmitted reference range : <=0.2. The reference r eric was not used to int erpret this result as normal/abnormal . [facility]iscoUhzrbzmZKQWIDAFXB2961-64-52 08:38:00 Test Item Value Reference Range Interpretation Comments Toxic Gran (test code Slight *ABN*(04/14/14 = Toxic Gran) 3:38 AM) [facility]iscoJwoipgnPYJRAKXCYL7730-96-35 08:38:00 Test Item Value Reference Range Interpretation Comments Monocytes # (test code 0.3 See_Comment [Aut omated message] The = Monocytes #) system which generated this result tra nsmitted reference range : <=0.8. The reference r eric was not used to int erpret this result as normal/abnormal . [facility]iscoCzigtflDVFXSIGANO7533-36-14 08:38:00 Test Item Value Reference Range Interpretation Comments Eosinophils # (test code 0.0 See_Comment [A utomated message] The = Eosinophils #) system whic h generated this result tra nsmitted reference range : <=0.5. The reference r eric was not used to int erpret this result as normal/abnormal . [facility]iscoPrujdgvBHXLUZFGVG0815-69-42 08:38:00 Test Item Value Reference Range Interpretation Comments Segs-Bands # (test code = Segs-Bands #) 17.2 1.5-8.1 [facility]iscoHzhwolyVZCWLXPZOB6939-64-16 08:38:00 Test Item Value Reference Range Interpretation Comments Lymphocytes # (test code = Lymphocytes 0.6 1.0-5.5 #) [facility]XkjzzciGRSROWYMKY4731-43-95 08:38:00 Test Item Value Reference Range Interpretation Comments Basophils (test code = 0.1 See_Comment [Aut omated message] The Basophils) system which ge nerated this result tra nsmitted reference range : <=1.0. The reference r eric was not used to int erpret this result as normal/abnormal . [facility]GRKXNH1661[facility] 08:38:00 Test Item Value Reference Range Interpretation Comments Segs (test code = Segs) 94.6 45.0-75.0 [facility]EzyagfkRWIURHKGIC1751-70-10 08:38:00 Test Item Value Reference Range Interpretation Comments Lymphocytes (test code = Lymphocytes) 3.5 20.0-40.0 [facility]HtopnsbVDRYJJOTQG3024-93-81 08:38:00 Test Item Value Reference Range Interpretation Comments Monocytes (test code = Monocytes) 1.8 2.0-12.0 [facility]YtfzqofPFIDLZFEPD6567-42-44 08:38:00 Test Item Value Reference Range Interpretation Comments Eosinophils (test code = 0.0 See_Comment [A utomated message] The Eosinophils) system which ge nerated this result tra nsmitted reference range : <=4.0. The reference r eric was not used to int erpret this result as normal/abnormal . [facility] HospitalQjeedruJOKDWEGJIT8758-49-68 08:38:00 Test Item Value Reference Range Interpretation Comments Plt Morph (test code = Normal (04/14/14 3:38 AM) Plt Morph) [facility]ErsgfnnQYFCVIQTGO5846-02-83 08:38:00 Test Item Value Reference Range Interpretation Comments RBC Morph (test code = Normal (04/14/14 3:38 AM) RBC Morph) [facility] ZKANXEIAY5651-78-98 08:38:00 Test Item Value Reference Range Interpretation Comments Hgb A1C (test code = Hgb A1C) 8.3 [facility] [id number] 08:38:00 Test Item Value Reference Range Interpretation Comments eGFR (test code = eGFR) 52 [facility] [id number] 08:38:00 Test Item Value Reference Range Interpretation Comments Chloride Lvl (test code = Chloride Lvl) 99 95-109 [facility] [id number] 08:38:00 Test Item Value Reference Range Interpretation Comments CO2 (test code = CO2) 29 24-32 [facility] [id number] 08:38:00 Test Item Value Reference Range Interpretation Comments Glucose Lvl (test code = Glucose Lvl) 309 70-99 [facility] [id number] 08:38:00 Test Item Value Reference Range Interpretation Comments Calcium Lvl (test code = Calcium Lvl) 8.9 8.5-10.5 [facility]2014-08-01 08:38:00 Test Item Value Reference Range Interpretation Comments BUN (test code = BUN) 27 7-22 [place] 014854-08-01 08:38:00 Test Item Value Reference Range Interpretation Comments Sodium Lvl (test code = Sodium Lvl) 135 135-145 [facility]2014-08-01 08:38:00 Test Item Value Reference Range Interpretation Comments Creatinine Lvl (test code = Creatinine 1.1 0.5-1.4 Lvl) [facility]2014-08-01 08:38:00 Test Item Value Reference Range Interpretation Comments Potassium Lvl (test code = Potassium 4.7 3.5-5.1 Lvl) [facility]2014-08-01 08:38:00 Test Item Value Reference Range Interpretation Comments Total Protein (test code = Total 6.5 6.4-8.4 Protein) [facility]2014-08-01 08:38:00 Test Item Value Reference Range Interpretation Comments Albumin Lvl (test code = Albumin Lvl) 2.6 3.5-5.0 [facility]2014-08-01 08:38:00 Test Item Value Reference Range Interpretation Comments ALT (test code = ALT) 15 See_Comment [Auto mated message] The system which ge nerated this result transmit thelma reference range : <=65. The reference range was not used to interpr et this result as zana l/abnormal. [facility]2014-08-01 08:38:00 Test Item Value Reference Range Interpretation Comments AST (test code = AST) 10 See_Comment [Auto mated message] The system which ge nerated this result transmit thelma reference range : <=37. The reference range was not used to interpr et this result as zana l/abnormal. [facility]2014-08-01 08:38:00 Test Item Value Reference Range Interpretation Comments Alk Phos (test code = Alk Phos) 41 39-136 [facility]2014-08-01 08:38:00 Test Item Value Reference Range Interpretation Comments Bili Total (test code = Bili Total) 0.4 0.2-1.3 [facility]2014-08-01 08:38:00 Test Item Value Reference Range Interpretation Comments A/G Ratio (test code = A/G Ratio) 0.7 0.7-1.6 [facility]2014-08-01 08:38:00 Test Item Value Reference Range Interpretation Comments Globulin (test code = Globulin) 3.9 2.0-4.0 [facility]2014-08-01 08:38:00 Test Item Value Reference Range Interpretation Comments B/C Ratio (test code = B/C Ratio) 25 6-25 [facility]2014-08-01 08:38:00 Test Item Value Reference Range Interpretation Comments AGAP (test code = AGAP) 11.7 10.0-20.0 [facility]2014-08-01 08:38:00 Test Item Value Reference Range Interpretation Comments Magnesium Lvl (test code = Magnesium 1.8 1.8-2.4 Lvl) [facility]2014-08-01 08:38:00 Test Item Value Reference Range Interpretation Comments Phosphorus (test code = Phosphorus) 2.4 2.5-4.5 [facility]iscoMcwncrjOMPWSDAXBB8369-93-06 08:38:00 Test Item Value Reference Range Interpretation Comments WBC (test code = WBC) 18.1 3.7-10.4 [facility]iscoZztsfhqEVXPYYJCGC5369-52-86 08:38:00 Test Item Value Reference Range Interpretation Comments Platelet (test code = Platelet) 248 133-450 [facility]iscoKxpbiarHCKDZEDSCL6814-63-76 08:38:00 Test Item Value Reference Range Interpretation Comments RDW (test code = RDW) 13.8 11.5-14.5 [facility]iscoLoawwcxCXXABEYWGC8716-01-30 08:38:00 Test Item Value Reference Range Interpretation Comments MCHC (test code = MCHC) 32.2 32.0-36.0 [facility]iscoBpxzjzwHOXRJDDSTN5469-29-97 08:38:00 Test Item Value Reference Range Interpretation Comments MCH (test code = MCH) 26.8 pg 27.0-31.0 [facility]iscoVeczlpfKULTZZYRNI2395-51-96 08:38:00 Test Item Value Reference Range Interpretation Comments Hct (test code = Hct) 37.1 36.0-48.0 [place] 262234-08-01 08:38:00 Test Item Value Reference Range Interpretation Comments MCV (test code = MCV) 83.2 81.0-99.0 [facility]iscoFbvpfiwNZOUHQQOLR9285-54-13 08:38:00 Test Item Value Reference Range Interpretation Comments RBC (test code = RBC) 4.47 4.20-5.40 [facility]iscoPxhneqiUDHVEUKPZH0398-39-87 08:38:00 Test Item Value Reference Range Interpretation Comments Hgb (test code = Hgb) 12.0 12.0-16.0 [facility]iscoMgktuerYLSSOEFQBZ4177-49-08 08:38:00 Test Item Value Reference Range Interpretation Comments MPV (test code = MPV) 9.0 7.4-10.4 [facility]iscoWnnaqiwNDHPTYRBWY9392-23-49 08:38:00 Test Item Value Reference Range Interpretation Comments Basophils # (test code 0.0 See_Comment [Aut omated message] The = Basophils #) system which generated this result tra nsmitted reference range : <=0.2. The reference r eric was not used to int erpret this result as normal/abnormal . [facility]iscoXenmjykEQRDCPKZUC5211-13-85 08:38:00 Test Item Value Reference Range Interpretation Comments Toxic Gran (test code Slight *ABN*(04/14/14 = Toxic Gran) 3:38 AM) [facility]iscoVggewsoTGDSKPKKPF4910-56-93 08:38:00 Test Item Value Reference Range Interpretation Comments Monocytes # (test code 0.3 See_Comment [Aut omated message] The = Monocytes #) system which generated this result tra nsmitted reference range : <=0.8. The reference r eric was not used to int erpret this result as normal/abnormal . [facility]iscoZfgagvlDLFFIHCQMP2511-74-45 08:38:00 Test Item Value Reference Range Interpretation Comments Eosinophils # (test code 0.0 See_Comment [A utomated message] The = Eosinophils #) system whic h generated this result tra nsmitted reference range : <=0.5. The reference r eric was not used to int erpret this result as normal/abnormal . [facility]iscoCypjbhuEAFBHFNJKS0032-29-44 08:38:00 Test Item Value Reference Range Interpretation Comments Segs-Bands # (test code = Segs-Bands #) 17.2 1.5-8.1 [facility]BjcqsqmUBKNDYEHBF5411-96-04 08:38:00 Test Item Value Reference Range Interpretation Comments Lymphocytes # (test code = Lymphocytes 0.6 1.0-5.5 #) [facility]EaulwslZYMUIAWTSR0357-97-87 08:38:00 Test Item Value Reference Range Interpretation Comments Basophils (test code = 0.1 See_Comment [Aut omated message] The Basophils) system which ge nerated this result tra nsmitted reference range : <=1.0. The reference r eric was not used to int erpret this result as normal/abnormal . [facility]iscoYhkvjikYBMYTNQQHY9256-42-90 08:38:00 Test Item Value Reference Range Interpretation Comments Segs (test code = Segs) 94.6 45.0-75.0 [facility]iscoYtdgxzmZTMRNESTPG5364-74-27 08:38:00 Test Item Value Reference Range Interpretation Comments Lymphocytes (test code = Lymphocytes) 3.5 20.0-40.0 [facility]iscoOmrqmbgGVKDVLHTOC0209-50-41 08:38:00 Test Item Value Reference Range Interpretation Comments Monocytes (test code = Monocytes) 1.8 2.0-12.0 [facility]iscoVoxfpatQJKGDKFPFU9013-71-91 08:38:00 Test Item Value Reference Range Interpretation Comments Eosinophils (test code = 0.0 See_Comment [A utomated message] The Eosinophils) system which ge nerated this result tra nsmitted reference range : <=4.0. The reference r eric was not used to int erpret this result as normal/abnormal . [facility] HospitalBgryemlVCPLIKFGDD0080-16-40 08:38:00 Test Item Value Reference Range Interpretation Comments Plt Morph (test code = Normal (04/14/14 3:38 AM) Plt Morph) [facility]iscoOszzyxyKGHCMPMKOZ0315-96-11 08:38:00 Test Item Value Reference Range Interpretation Comments RBC Morph (test code = Normal (04/14/14 3:38 AM) RBC Morph) [facility] FACEKGDCN1269-52-75 08:38:00 Test Item Value Reference Range Interpretation Comments Hgb A1C (test code = Hgb A1C) 8.3 [facility] 08:38:00 Test Item Value Reference Range Interpretation Comments eGFR (test code = eGFR) 52 [facility] UKVOR9229-33-49 08:38:00 Test Item Value Reference Range Interpretation Comments Chloride Lvl (test code = Chloride Lvl) 99 95-109 [facility]2014-08-01 08:38:00 Test Item Value Reference Range Interpretation Comments CO2 (test code = CO2) 29 24-32 [facility]2014-08-01 08:38:00 Test Item Value Reference Range Interpretation Comments Glucose Lvl (test code = Glucose Lvl) 309 70-99 [facility]2014-08-01 08:38:00 Test Item Value Reference Range Interpretation Comments Calcium Lvl (test code = Calcium Lvl) 8.9 8.5-10.5 [facility]2014-08-01 08:38:00 Test Item Value Reference Range Interpretation Comments BUN (test code = BUN) 27 7-22 [facility]2014-08-01 08:38:00 Test Item Value Reference Range Interpretation Comments Sodium Lvl (test code = Sodium Lvl) 135 135-145 [facility]2014-08-01 08:38:00 Test Item Value Reference Range Interpretation Comments Creatinine Lvl (test code = Creatinine 1.1 0.5-1.4 Lvl) [facility]2014-08-01 08:38:00 Test Item Value Reference Range Interpretation Comments Potassium Lvl (test code = Potassium 4.7 3.5-5.1 Lvl) [facility]2014-08-01 08:38:00 Test Item Value Reference Range Interpretation Comments Total Protein (test code = Total 6.5 6.4-8.4 Protein) [facility]2014-08-01 08:38:00 Test Item Value Reference Range Interpretation Comments Albumin Lvl (test code = Albumin Lvl) 2.6 3.5-5.0 [facility]2014-08-01 08:38:00 Test Item Value Reference Range Interpretation Comments ALT (test code = ALT) 15 See_Comment [Auto mated message] The system which ge nerated this result transmit thelma reference range : <=65. The reference range was not used to interpr et this result as zana l/abnormal. [facility]2014-08-01 08:38:00 Test Item Value Reference Range Interpretation Comments AST (test code = AST) 10 See_Comment [Auto mated message] The system which ge nerated this result transmit thelma reference range : <=37. The reference range was not used to interpr et this result as zana l/abnormal. [facility]2014-08-01 08:38:00 Test Item Value Reference Range Interpretation Comments Alk Phos (test code = Alk Phos) 41 39-136 [facility]2014-08-01 08:38:00 Test Item Value Reference Range Interpretation Comments Bili Total (test code = Bili Total) 0.4 0.2-1.3 [facility]2014-08-01 08:38:00 Test Item Value Reference Range Interpretation Comments A/G Ratio (test code = A/G Ratio) 0.7 0.7-1.6 [facility]2014-08-01 08:38:00 Test Item Value Reference Range Interpretation Comments Globulin (test code = Globulin) 3.9 2.0-4.0 [facility]2014-08-01 08:38:00 Test Item Value Reference Range Interpretation Comments B/C Ratio (test code = B/C Ratio) 25 6-25 [facility]2014-08-01 08:38:00 Test Item Value Reference Range Interpretation Comments AGAP (test code = AGAP) 11.7 10.0-20.0 [facility]2014-08-01 08:38:00 Test Item Value Reference Range Interpretation Comments Magnesium Lvl (test code = Magnesium 1.8 1.8-2.4 Lvl) [facility]2014-08-01 08:38:00 Test Item Value Reference Range Interpretation Comments Phosphorus (test code = Phosphorus) 2.4 2.5-4.5 [facility]iscoZbnxlsuQQADUVFOQY8740-38-29 08:38:00 Test Item Value Reference Range Interpretation Comments WBC (test code = WBC) 18.1 3.7-10.4 [facility]iscoTjrdwwmFRRUKEKVJV6791-53-64 08:38:00 Test Item Value Reference Range Interpretation Comments Platelet (test code = Platelet) 248 133-450 [facility]iscoSyrgssuMCRHSIBDYF7614-63-10 08:38:00 Test Item Value Reference Range Interpretation Comments RDW (test code = RDW) 13.8 11.5-14.5 [facility]iscoXqvvieoPPILVIYHRB7343-05-32 08:38:00 Test Item Value Reference Range Interpretation Comments MCHC (test code = MCHC) 32.2 32.0-36.0 [facility]iscoNvpmkzmJSJRJYGPRL6949-03-10 08:38:00 Test Item Value Reference Range Interpretation Comments MCH (test code = MCH) 26.8 pg 27.0-31.0 [facility]iscoMteykrsJWLUMRBSPG7558-47-29 08:38:00 Test Item Value Reference Range Interpretation Comments Hct (test code = Hct) 37.1 36.0-48.0 [facility]iscoForkigjYQESKQPASJ3332-91-92 08:38:00 Test Item Value Reference Range Interpretation Comments MCV (test code = MCV) 83.2 81.0-99.0 [facility]iscoUmvffdeUDIDFSAKVL3058-16-87 08:38:00 Test Item Value Reference Range Interpretation Comments RBC (test code = RBC) 4.47 4.20-5.40 [facility]iscoMyuewsxAPNRAALLIS3643-33-50 08:38:00 Test Item Value Reference Range Interpretation Comments Hgb (test code = Hgb) 12.0 12.0-16.0 [facility] FriscoFmbnlakIRDTNUVYTM8099-89-02 08:38:00 Test Item Value Reference Range Interpretation Comments MPV (test code = MPV) 9.0 7.4-10.4 [facility]iscoWyosbvlCKYVDRONKS7016-44-67 08:38:00 Test Item Value Reference Range Interpretation Comments Basophils # (test code 0.0 See_Comment [Aut omated message] The = Basophils #) system which generated this result tra nsmitted reference range : <=0.2. The reference r eric was not used to int erpret this result as normal/abnormal . [facility]iscoQwbgyprRYPRVSKLLA8008-29-07 08:38:00 Test Item Value Reference Range Interpretation Comments Toxic Gran (test code Slight *ABN*(04/14/14 = Toxic Gran) 3:38 AM) [facility] FriscoNycvuqaGGUDDEYVEH5315-82-36 08:38:00 Test Item Value Reference Range Interpretation Comments Monocytes # (test code 0.3 See_Comment [Aut omated message] The = Monocytes #) system which generated this result tra nsmitted reference range : <=0.8. The reference r eric was not used to int erpret this result as normal/abnormal . [facility] FriscoOpnwmsaESZVQVVWLC3752-05-69 08:38:00 Test Item Value Reference Range Interpretation Comments Eosinophils # (test code 0.0 See_Comment [A utomated message] The = Eosinophils #) system whic h generated this result tra nsmitted reference range : <=0.5. The reference r eric was not used to int erpret this result as normal/abnormal . [facility] FriscoBdtnqasBKQNFNURAR5713-48-10 08:38:00 Test Item Value Reference Range Interpretation Comments Segs-Bands # (test code = Segs-Bands #) 17.2 1.5-8.1 [facility] FriscoTlwslabXBFZJXKSCW5179-59-74 08:38:00 Test Item Value Reference Range Interpretation Comments Lymphocytes # (test code = Lymphocytes 0.6 1.0-5.5 #) [facility] FriscoDcyxgkzBXTSPHBOBR5743-17-40 08:38:00 Test Item Value Reference Range Interpretation Comments Basophils (test code = 0.1 See_Comment [Aut omated message] The Basophils) system which ge nerated this result tra nsmitted reference range : <=1.0. The reference r eric was not used to int erpret this result as normal/abnormal . [facility] FriscoKsqhwhkQDYRSKMBCC3734-38-19 08:38:00 Test Item Value Reference Range Interpretation Comments Segs (test code = Segs) 94.6 45.0-75.0 [facility] FriscoGbykgubLNFLZRMAOQ7915-21-21 08:38:00 Test Item Value Reference Range Interpretation Comments Lymphocytes (test code = Lymphocytes) 3.5 20.0-40.0 [facility] FriscoCfpeunzVHJXFAHJSU9878-04-19 08:38:00 Test Item Value Reference Range Interpretation Comments Monocytes (test code = Monocytes) 1.8 2.0-12.0 [facility] FriscoXocrljkWGLBTSVNKD5021-71-37 08:38:00 Test Item Value Reference Range Interpretation Comments Eosinophils (test code = 0.0 See_Comment [A utomated message] The Eosinophils) system which ge nerated this result tra nsmitted reference range : <=4.0. The reference r eric was not used to int erpret this result as normal/abnormal . [facility] FriscoVuammliUMHCSINNRX3529-37-86 08:38:00 Test Item Value Reference Range Interpretation Comments Plt Morph (test code = Normal (04/14/14 3:38 AM) Plt Morph) [facility] FriscoVjilyspUDORPVBPOQ9529-58-01 08:38:00 Test Item Value Reference Range Interpretation Comments RBC Morph (test code = Normal (04/14/14 3:38 AM) RBC Morph) [facility] TDPVYCGGE8893-88-11 08:38:00 Test Item Value Reference Range Interpretation Comments Hgb A1C (test code = Hgb A1C) 8.3 [facility]2014-07-31 07:30:00 Test Item Value Reference Range Interpretation Comments Magnesium Lvl (test code = Magnesium 1.8 1.8-2.4 Lvl) [facility]2014-07-31 07:30:00 Test Item Value Reference Range Interpretation Comments Phosphorus (test code = Phosphorus) 3.4 2.5-4.5 [facility]2014-07-31 07:30:00 Test Item Value Reference Range Interpretation Comments eGFR (test code = eGFR) 66 [facility]2014-07-31 07:30:00 Test Item Value Reference Range Interpretation Comments CO2 (test code = CO2) 30 24-32 [facility]2014-07-31 07:30:00 Test Item Value Reference Range Interpretation Comments Calcium Lvl (test code = Calcium Lvl) 9.3 8.5-10.5 [facility]2014-07-31 07:30:00 Test Item Value Reference Range Interpretation Comments Chloride Lvl (test code = Chloride Lvl) 103 95-109 [facility]2014-07-31 07:30:00 Test Item Value Reference Range Interpretation Comments AGAP (test code = AGAP) 11.1 10.0-20.0 [facility]2014-07-31 07:30:00 Test Item Value Reference Range Interpretation Comments Potassium Lvl (test code = Potassium 4.1 3.5-5.1 Lvl) [facility]2014-07-31 07:30:00 Test Item Value Reference Range Interpretation Comments BUN (test code = BUN) 16 7-22 [facility]2014-07-31 07:30:00 Test Item Value Reference Range Interpretation Comments Sodium Lvl (test code = Sodium Lvl) 140 135-145 [facility]2014-07-31 07:30:00 Test Item Value Reference Range Interpretation Comments Glucose Lvl (test code = Glucose Lvl) 230 70-99 [facility]2014-07-31 07:30:00 Test Item Value Reference Range Interpretation Comments Creatinine Lvl (test code = Creatinine 0.9 0.5-1.4 Lvl) [facility] FriscoEpgnzgdXZJVFZNGKW6074-38-09 07:30:00 Test Item Value Reference Range Interpretation Comments Platelet (test code = Platelet) 226 133-450 [facility] FriscoIciesmkIRHQECPIBN3175-06-57 07:30:00 Test Item Value Reference Range Interpretation Comments RDW (test code = RDW) 13.5 11.5-14.5 [facility] FriscoKvuamybGBHTZLVWUY6595-46-75 07:30:00 Test Item Value Reference Range Interpretation Comments MPV (test code = MPV) 9.7 7.4-10.4 [facility] FriscoSejhudiGQHBYRUPMG0319-95-55 07:30:00 Test Item Value Reference Range Interpretation Comments WBC (test code = WBC) 9.6 3.7-10.4 [facility] FriscoUfixigbQHAKWZMKKX1778-08-39 07:30:00 Test Item Value Reference Range Interpretation Comments RBC (test code = RBC) 4.49 4.20-5.40 [facility] FriscoZnzvxlqYEQEUKAFNS0145-08-71 07:30:00 Test Item Value Reference Range Interpretation Comments Hgb (test code = Hgb) 12.0 12.0-16.0 [facility] FriscoCdnrxwxCKYTLXCNBA9366-34-83 07:30:00 Test Item Value Reference Range Interpretation Comments MCV (test code = MCV) 83.2 81.0-99.0 [facility] FriscoJqxcrghVBXQJJRZJM9632-15-73 07:30:00 Test Item Value Reference Range Interpretation Comments Hct (test code = Hct) 37.4 36.0-48.0 [facility] FriscoXpljvaxMCAMOHPVCM4125-03-98 07:30:00 Test Item Value Reference Range Interpretation Comments MCHC (test code = MCHC) 32.1 32.0-36.0 [facility] FriscoBynryxwBPNMOTVXKK2578-98-44 07:30:00 Test Item Value Reference Range Interpretation Comments MCH (test code = MCH) 26.7 pg 27.0-31.0 [facility] FriscoUeiyptpRIXFQYSVCV3389-21-55 07:30:00 Test Item Value Reference Range Interpretation Comments Basophils (test code = 0.0 See_Comment [Aut omated message] The Basophils) system which ge nerated this result tra nsmitted reference range : <=1.0. The reference r eric was not used to int erpret this result as normal/abnormal . [facility] FriscoRampijqQAPCJMTTKK0757-50-89 07:30:00 Test Item Value Reference Range Interpretation Comments Segs-Bands # (test code = Segs-Bands #) 8.9 1.5-8.1 [facility]iscoXrjgzzqLTGLCBESEX3341-56-36 07:30:00 Test Item Value Reference Range Interpretation Comments Segs (test code = Segs) 92.8 45.0-75.0 [facility] FriscoPeibqdaDNCMMRULEF9553-16-60 07:30:00 Test Item Value Reference Range Interpretation Comments Lymphocytes (test code = Lymphocytes) 5.4 20.0-40.0 [facility] FriscoBirsgabBNOYQJZKLO9504-46-35 07:30:00 Test Item Value Reference Range Interpretation Comments Eosinophils (test code = 0.0 See_Comment [A utomated message] The Eosinophils) system which ge nerated this result tra nsmitted reference range : <=4.0. The reference r eric was not used to int erpret this result as normal/abnormal . [facility] FriscoNglmudoRHZUECHFNM8310-73-74 07:30:00 Test Item Value Reference Range Interpretation Comments Monocytes (test code = Monocytes) 1.8 2.0-12.0 [facility] FriscoZmdvezwPDXDGFJSVQ1179-09-63 07:30:00 Test Item Value Reference Range Interpretation Comments Lymphocytes # (test code = Lymphocytes 0.5 1.0-5.5 #) [facility] FriscoTwphxubEUZMHSICTV5842-47-20 07:30:00 Test Item Value Reference Range Interpretation Comments Monocytes # (test code 0.2 See_Comment [Aut omated message] The = Monocytes #) system which generated this result tra nsmitted reference range : <=0.8. The reference r eric was not used to int erpret this result as normal/abnormal . [facility] FriscoLuiozhoFNWOUBMPEX5457-42-41 07:30:00 Test Item Value Reference Range Interpretation Comments Eosinophils # (test code 0.0 See_Comment [A utomated message] The = Eosinophils #) system whic h generated this result tra nsmitted reference range : <=0.5. The reference r eric was not used to int erpret this result as normal/abnormal . [facility]iscoPgfmexyPCKOTXTDEP9430-76-24 07:30:00 Test Item Value Reference Range Interpretation Comments Basophils # (test code 0.0 See_Comment [Aut omated message] The = Basophils #) system which generated this result tra nsmitted reference range : <=0.2. The reference r eirc was not used to int erpret this result as normal/abnormal . [facility]2014-07-31 07:30:00 Test Item Value Reference Range Interpretation Comments Magnesium Lvl (test code = Magnesium 1.8 1.8-2.4 Lvl) [facility]2014-07-31 07:30:00 Test Item Value Reference Range Interpretation Comments Phosphorus (test code = Phosphorus) 3.4 2.5-4.5 [facility]2014-07-31 07:30:00 Test Item Value Reference Range Interpretation Comments eGFR (test code = eGFR) 66 [facility]2014-07-31 07:30:00 Test Item Value Reference Range Interpretation Comments CO2 (test code = CO2) 30 24-32 [facility]2014-07-31 07:30:00 Test Item Value Reference Range Interpretation Comments Calcium Lvl (test code = Calcium Lvl) 9.3 8.5-10.5 [facility]2014-07-31 07:30:00 Test Item Value Reference Range Interpretation Comments Chloride Lvl (test code = Chloride Lvl) 103 95-109 [facility]2014-07-31 07:30:00 Test Item Value Reference Range Interpretation Comments AGAP (test code = AGAP) 11.1 10.0-20.0 [facility]2014-07-31 07:30:00 Test Item Value Reference Range Interpretation Comments Potassium Lvl (test code = Potassium 4.1 3.5-5.1 Lvl) [facility]2014-07-31 07:30:00 Test Item Value Reference Range Interpretation Comments BUN (test code = BUN) 16 7-22 [facility]2014-07-31 07:30:00 Test Item Value Reference Range Interpretation Comments Sodium Lvl (test code = Sodium Lvl) 140 135-145 [facility]2014-07-31 07:30:00 Test Item Value Reference Range Interpretation Comments Glucose Lvl (test code = Glucose Lvl) 230 70-99 [facility]2014-07-31 07:30:00 Test Item Value Reference Range Interpretation Comments Creatinine Lvl (test code = Creatinine 0.9 0.5-1.4 Lvl) [facility] FriscoHuwwtamNABHOMQXXC3088-84-13 07:30:00 Test Item Value Reference Range Interpretation Comments Platelet (test code = Platelet) 226 133-450 [facility] FriscoZzlcamyCPTUMRWHMH8284-95-95 07:30:00 Test Item Value Reference Range Interpretation Comments RDW (test code = RDW) 13.5 11.5-14.5 [facility] FriscoQrbognsLZOWYCREHE4397-52-34 07:30:00 Test Item Value Reference Range Interpretation Comments MPV (test code = MPV) 9.7 7.4-10.4 [facility] FriscoCghqitsUQIISONLCM5947-47-49 07:30:00 Test Item Value Reference Range Interpretation Comments WBC (test code = WBC) 9.6 3.7-10.4 [facility] FriscoZktdscbOLVOZAKMNH8055-33-27 07:30:00 Test Item Value Reference Range Interpretation Comments RBC (test code = RBC) 4.49 4.20-5.40 [facility] FriscoCkzuxilNPMGNUZQPW2651-06-10 07:30:00 Test Item Value Reference Range Interpretation Comments Hgb (test code = Hgb) 12.0 12.0-16.0 [facility] FriscoPupxkwdETEZABYKNF3824-49-12 07:30:00 Test Item Value Reference Range Interpretation Comments MCV (test code = MCV) 83.2 81.0-99.0 [facility] FriscoFvqedbaOTDWRRMNFQ2058-46-54 07:30:00 Test Item Value Reference Range Interpretation Comments Hct (test code = Hct) 37.4 36.0-48.0 [facility] FriscoFjgnpvwNGXVXUQUIP4396-73-96 07:30:00 Test Item Value Reference Range Interpretation Comments MCHC (test code = MCHC) 32.1 32.0-36.0 [facility] FriscoUjvhfnjXYINXKAUGR7580-00-22 07:30:00 Test Item Value Reference Range Interpretation Comments MCH (test code = MCH) 26.7 pg 27.0-31.0 [facility] FriscoJpwqfxlXPSMHABJBR8306-88-65 07:30:00 Test Item Value Reference Range Interpretation Comments Basophils (test code = 0.0 See_Comment [Aut omated message] The Basophils) system which ge nerated this result tra nsmitted reference range : <=1.0. The reference r eric was not used to int erpret this result as normal/abnormal . [facility] FriscoNnptaroBPLBNKYYXI6648-84-78 07:30:00 Test Item Value Reference Range Interpretation Comments Segs-Bands # (test code = Segs-Bands #) 8.9 1.5-8.1 [facility] FriscoSwisnccMMAUCNBFDB0951-87-86 07:30:00 Test Item Value Reference Range Interpretation Comments Segs (test code = Segs) 92.8 45.0-75.0 [facility] FriscoSzpfukcJAUAFUFMLI5555-24-75 07:30:00 Test Item Value Reference Range Interpretation Comments Lymphocytes (test code = Lymphocytes) 5.4 20.0-40.0 [facility] FriscoAgdbbtzLULFJAXPZC1221-68-17 07:30:00 Test Item Value Reference Range Interpretation Comments Eosinophils (test code = 0.0 See_Comment [A utomated message] The Eosinophils) system which ge nerated this result tra nsmitted reference range : <=4.0. The reference r eric was not used to int erpret this result as normal/abnormal . [facility] FriscoCovxikpNKHYBUULLC8916-02-93 07:30:00 Test Item Value Reference Range Interpretation Comments Monocytes (test code = Monocytes) 1.8 2.0-12.0 [facility] FriscoUmaavvgBFLOAISQEV6918-15-88 07:30:00 Test Item Value Reference Range Interpretation Comments Lymphocytes # (test code = Lymphocytes 0.5 1.0-5.5 #) [facility] FriscoQqspantWRBRODYMMA6414-30-73 07:30:00 Test Item Value Reference Range Interpretation Comments Monocytes # (test code 0.2 See_Comment [Aut omated message] The = Monocytes #) system which generated this result tra nsmitted reference range : <=0.8. The reference r eric was not used to int erpret this result as normal/abnormal . [facility] FriscoTyvtiogCJGRWZGTPS5717-78-17 07:30:00 Test Item Value Reference Range Interpretation Comments Eosinophils # (test code 0.0 See_Comment [A utomated message] The = Eosinophils #) system whic h generated this result tra nsmitted reference range : <=0.5. The reference r eric was not used to int erpret this result as normal/abnormal . [facility] FriscoWwgjikyXZQEMWWEAH8754-10-40 07:30:00 Test Item Value Reference Range Interpretation Comments Basophils # (test code 0.0 See_Comment [Aut omated message] The = Basophils #) system which generated this result tra nsmitted reference range : <=0.2. The reference r eric was not used to int erpret this result as normal/abnormal . [facility]2014-07-31 07:30:00 Test Item Value Reference Range Interpretation Comments Magnesium Lvl (test code = Magnesium 1.8 1.8-2.4 Lvl) [facility]2014-07-31 07:30:00 Test Item Value Reference Range Interpretation Comments Phosphorus (test code = Phosphorus) 3.4 2.5-4.5 [facility]2014-07-31 07:30:00 Test Item Value Reference Range Interpretation Comments eGFR (test code = eGFR) 66 [facility]2014-07-31 07:30:00 Test Item Value Reference Range Interpretation Comments CO2 (test code = CO2) 30 24-32 [facility]2014-07-31 07:30:00 Test Item Value Reference Range Interpretation Comments Calcium Lvl (test code = Calcium Lvl) 9.3 8.5-10.5 [facility]2014-07-31 07:30:00 Test Item Value Reference Range Interpretation Comments Chloride Lvl (test code = Chloride Lvl) 103 95-109 [facility]2014-07-31 07:30:00 Test Item Value Reference Range Interpretation Comments AGAP (test code = AGAP) 11.1 10.0-20.0 [facility]2014-07-31 07:30:00 Test Item Value Reference Range Interpretation Comments Potassium Lvl (test code = Potassium 4.1 3.5-5.1 Lvl) [facility]2014-07-31 07:30:00 Test Item Value Reference Range Interpretation Comments BUN (test code = BUN) 16 7-22 [facility]2014-07-31 07:30:00 Test Item Value Reference Range Interpretation Comments Sodium Lvl (test code = Sodium Lvl) 140 135-145 [facility]2014-07-31 07:30:00 Test Item Value Reference Range Interpretation Comments Glucose Lvl (test code = Glucose Lvl) 230 70-99 [facility]2014-07-31 07:30:00 Test Item Value Reference Range Interpretation Comments Creatinine Lvl (test code = Creatinine 0.9 0.5-1.4 Lvl) [facility] FriscoBhtuexwMQPOACNSST1913-88-23 07:30:00 Test Item Value Reference Range Interpretation Comments Platelet (test code = Platelet) 226 133-450 [facility] FriscoBxknojfVTPXFFIFVR1534-67-31 07:30:00 Test Item Value Reference Range Interpretation Comments RDW (test code = RDW) 13.5 11.5-14.5 [facility] FriscoNkulotdNSBAELQSPK8258-31-00 07:30:00 Test Item Value Reference Range Interpretation Comments MPV (test code = MPV) 9.7 7.4-10.4 [facility] FriscoEvbgwhaHNFAFQWCYQ6928-01-08 07:30:00 Test Item Value Reference Range Interpretation Comments WBC (test code = WBC) 9.6 3.7-10.4 [facility] FriscoEtxajhdARUJGPMYTK2854-22-24 07:30:00 Test Item Value Reference Range Interpretation Comments RBC (test code = RBC) 4.49 4.20-5.40 [facility] FriscoXucoiabRMTHHZRTJQ3025-85-44 07:30:00 Test Item Value Reference Range Interpretation Comments Hgb (test code = Hgb) 12.0 12.0-16.0 [facility] FriscoHuvnjrrTRCUOLSKKE3356-15-31 07:30:00 Test Item Value Reference Range Interpretation Comments MCV (test code = MCV) 83.2 81.0-99.0 [facility] FriscoTisfzxkRCVROGZSTL7088-79-30 07:30:00 Test Item Value Reference Range Interpretation Comments Hct (test code = Hct) 37.4 36.0-48.0 [facility] FriscoPzbvifdKQXZXGJSOY8593-47-93 07:30:00 Test Item Value Reference Range Interpretation Comments MCHC (test code = MCHC) 32.1 32.0-36.0 [facility] FriscoJlhyacsYJSYQFREJR1020-23-32 07:30:00 Test Item Value Reference Range Interpretation Comments MCH (test code = MCH) 26.7 pg 27.0-31.0 [facility] FriscoPwfkpztUTWXFBMYJT2848-93-08 07:30:00 Test Item Value Reference Range Interpretation Comments Basophils (test code = 0.0 See_Comment [Aut omated message] The Basophils) system which ge nerated this result tra nsmitted reference range : <=1.0. The reference r eric was not used to int erpret this result as normal/abnormal . [facility] FriscoAdedafyNFTQDRZQGQ5251-85-94 07:30:00 Test Item Value Reference Range Interpretation Comments Segs-Bands # (test code = Segs-Bands #) 8.9 1.5-8.1 [facility] FriscoZjtwfohTQZGPNCZSK2893-98-12 07:30:00 Test Item Value Reference Range Interpretation Comments Segs (test code = Segs) 92.8 45.0-75.0 [facility] FriscoZrwdptuZXCVZOYTUF8490-15-28 07:30:00 Test Item Value Reference Range Interpretation Comments Lymphocytes (test code = Lymphocytes) 5.4 20.0-40.0 [facility] FriscoZngmqpxKXBNFBEQAA9530-10-82 07:30:00 Test Item Value Reference Range Interpretation Comments Eosinophils (test code = 0.0 See_Comment [A utomated message] The Eosinophils) system which ge nerated this result tra nsmitted reference range : <=4.0. The reference r eric was not used to int erpret this result as normal/abnormal . [facility] FriscoEmzivdxZCIPDNIQPT0807-54-38 07:30:00 Test Item Value Reference Range Interpretation Comments Monocytes (test code = Monocytes) 1.8 2.0-12.0 [facility] FriscoQgkstkqASTKSOQKSL1049-07-38 07:30:00 Test Item Value Reference Range Interpretation Comments Lymphocytes # (test code = Lymphocytes 0.5 1.0-5.5 #) [facility]iscoSpfxoioTIYELXAEXC2395-52-86 07:30:00 Test Item Value Reference Range Interpretation Comments Monocytes # (test code 0.2 See_Comment [Aut omated message] The = Monocytes #) system which generated this result tra nsmitted reference range : <=0.8. The reference r eric was not used to int erpret this result as normal/abnormal . [facility] FriscoLgaczrwEYKQWQIRGH1303-77-29 07:30:00 Test Item Value Reference Range Interpretation Comments Eosinophils # (test code 0.0 See_Comment [A utomated message] The = Eosinophils #) system whic h generated this result tra nsmitted reference range : <=0.5. The reference r eric was not used to int erpret this result as normal/abnormal . [facility] FriscoYfpvsydZLFZZBEHJN4518-57-91 07:30:00 Test Item Value Reference Range Interpretation Comments Basophils # (test code 0.0 See_Comment [Aut omated message] The = Basophils #) system which generated this result tra nsmitted reference range : <=0.2. The reference r eric was not used to int erpret this result as normal/abnormal . [facility] BsdfvexFJOQX2984-44-94 00:20:08 Test Item Value Reference Range Interpretation Comments Grp A Strep Scr (test Negative (04/12/14 7:20 code = Grp A Strep PM) Scr) [facility]PRBJM0508[facility]-79 00:20:08 Test Item Value Reference Range Interpretation Comments Grp A Strep Scr (test Negative (04/12/14 7:20 code = Grp A Strep PM) Scr) [facility] HospitalPxwbkxmZWGSJ9942-87-05 00:20:08 Test Item Value Reference Range Interpretation Comments Grp A Strep Scr (test Negative (04/12/14 7:20 code = Grp A Strep PM) Scr) [facility] HospitalGreencartAC [id number] 16:10:00 Test Item Value Reference Range Interpretation Comments CK MB Index (test 1.9 See_Comment [Automate d message] The code = CK MB Index) system w [facility] generated this result transmit thelma reference range : <=2.5. The reference range was not used to interpr et this result as zana l/abnormal. [facility] [employer] [id number] 16:10:00 Test Item Value Reference Range Interpretation Comments BNP (test code = BNP) 24 [facility] HospitalGreencartAC [id number] 16:10:00 Test Item Value Reference Range Interpretation Comments Troponin-I (test code no gt See_Comment [Auto mated message] The = Troponin-I) system which g enerated this result transmit thelma reference range : <=0.40. The reference r eric was not used to interpr et this result as zana l/abnormal. [facility] [employer] [id number] 16:10:00 Test Item Value Reference Range Interpretation Comments CK MB (test code = CK MB) 0.6 0.5-3.6 [facility] [employer] [id number] 16:10:00 Test Item Value Reference Range Interpretation Comments Total CK (test code = Total CK) 31 12-191 [facility] [employer] [id number] 16:10:00 Test Item Value Reference Range Interpretation Comments Procalcitonin Lvl (test no gt See_Comment [Au tomated message] code = Procalcitonin Lvl) Th e system which generated this result transmitted ref erence range: <=0.10. The reference range was not used to interpr et this result as normal/abnormal . [facility] HospitalGlobal [facility] [id number] 16:10:00 Test Item Value Reference Range Interpretation Comments Lactic Acid Lvl (test code = Lactic 0.9 0.5-2.2 Acid Lvl) [facility] HospitalWwhuagiMXLLNGFUYC5644-83-05 16:10:00 Test Item Value Reference Range Interpretation Comments INR (test code = INR) 1.02 0.85-1.17 [facility]AL[facility]GIQSYRY0619-[facility]-23 16:10:00 Test Item Value Reference Range Interpretation Comments PT (test code = PT) 13.3 s 12.0-14.7 [facility] HospitalGoodAppetito [id number] 16:10:00 Test Item Value Reference Range Interpretation Comments CK MB Index (test 1.9 See_Comment [Automate d message] The code = CK MB Index) [facility] result transmit thelma reference range : <=2.5. The reference range was not used to interpr et this result as zana l/abnormal. [facility] HospitalGreencartAC [id number] 16:10:00 Test Item Value Reference Range Interpretation Comments BNP (test code = BNP) 24 [facility] CenterWysiwygAC QXDKQWO6906-99-69 16:10:00 Test Item Value Reference Range Interpretation Comments Troponin-I (test code no gt See_Comment [Auto mated message] The = Troponin-I) system which g enerated this result transmit thelma reference range : <=0.40. The reference r eric was not used to interpr et this result as zana l/abnormal. [facility]GreencartAC [id number] 16:10:00 Test Item Value Reference Range Interpretation Comments CK MB (test code = CK MB) 0.6 0.5-3.6 [facility] HospitalGoodAppetito [id number] 16:10:00 Test Item Value Reference Range Interpretation Comments Total CK (test code = Total CK) 31 12-191 [facility] HospitalGlobal Velocity [id number] 16:10:00 Test Item Value Reference Range Interpretation Comments Procalcitonin Lvl (test no gt See_Comment [Au tomated message] code = Procalcitonin Lvl) Th e system which generated this result transmitted ref erence range: <=0.10. The reference range was not used to interpr et this result as normal/abnormal . [facility] [place] [employer] [id number] 16:10:00 Test Item Value Reference Range Interpretation Comments Lactic Acid Lvl (test code = Lactic 0.9 0.5-2.2 Acid Lvl) [facility] HospitalEsabsvcRTPCZWWOIA2601-15-81 16:10:00 Test Item Value Reference Range Interpretation Comments INR (test code = INR) 1.02 0.85-1.17 [facility] HospitalSuiuocpCTWIOJZAYD5300-94-86 16:10:00 Test Item Value Reference Range Interpretation Comments PT (test code = PT) 13.3 s 12.0-14.7 [facility] HospitalDeciZium2014-07-30 16:10:00 Test Item Value Reference Range Interpretation Comments CK MB Index (test 1.9 See_Comment [Automate d message] The code = CK MB Index) system w hich generated this result transmit thelma reference range : <=2.5. The reference range was not used to interpr et this result as zana l/abnormal. [facility] HospitalDeciZium2014-07-30 16:10:00 Test Item Value Reference Range Interpretation Comments BNP (test code = BNP) 24 [facility] HospitalDeciZium2014-07-30 16:10:00 Test Item Value Reference Range Interpretation Comments Troponin-I (test code no gt See_Comment [Auto mated message] The = Troponin-I) system which g enerated this result transmit thelma reference range : <=0.40. The reference r eric was not used to interpr et this result as zana l/abnormal. [facility] HospitalGoodAppetito [id number] 16:10:00 Test Item Value Reference Range Interpretation Comments CK MB (test code = CK MB) 0.6 0.5-3.6 [facility] HospitalDeciZium2014-07-30 16:10:00 Test Item Value Reference Range Interpretation Comments Total CK (test code = Total CK) 31 12-191 [facility] HospitalGlobal Velocity [id number] 16:10:00 Test Item Value Reference Range Interpretation Comments Procalcitonin Lvl (test no gt See_Comment [Au tomated message] code = Procalcitonin Lvl) Th e system which generated this result transmitted ref erence range: <=0.10. The reference range was not used to interpr et this result as normal/abnormal . [facility] [id number] 16:10:00 Test Item Value Reference Range Interpretation Comments Lactic Acid Lvl (test code = Lactic 0.9 0.5-2.2 Acid Lvl) [facility]KiuqtzdIOLBVILCYO6864-26-77 16:10:00 Test Item Value Reference Range Interpretation Comments INR (test code = INR) 1.02 0.85-1.17 [facility]gkLHUJOAZMUI9676-[facility]-14 16:10:00 Test Item Value Reference Range Interpretation Comments PT (test code = PT) 13.3 s 12.0-14.7 [facility] GLUCOSE [id number] 20:14:00 Test Item Value Reference Range Interpretation Comments Comment2 (test code = Notified Nurse Comment2) [facility] GLUCOSE [id number] 20:14:00 Test Item Value Reference Range Interpretation Comments Comment1 (test code = Comment1) Notified [facility] GLUCOSE [id number] 20:14:00 Test Item Value Reference Range Interpretation Comments Gluc POC Lifscn (test code = Gluc POC 164 70-99 H Lifscn) [facility] GLUCOSE [id number] 20:14:00 Test Item Value Reference Range Interpretation Comments Comment2 (test code = Notified Nurse Comment2) [facility] GLUCOSE [id number] 20:14:00 Test Item Value Reference Range Interpretation Comments Comment1 (test code = Comment1) Notified [facility] GLUCOSE [id number] 20:14:00 Test Item Value Reference Range Interpretation Comments Gluc POC Lifscn (test code = Gluc POC 164 70-99 H Lifscn) [facility] GLUCOSE [id number] 20:14:00 Test Item Value Reference Range Interpretation Comments Comment2 (test code = Notified Nurse Comment2) [facility] GLUCOSE [id number] 20:14:00 Test Item Value Reference Range Interpretation Comments Comment1 (test code = Comment1) Notified [facility] GLUCOSE [id number] 20:14:00 Test Item Value Reference Range Interpretation Comments Gluc POC Lifscn (test code = Gluc POC 164 70-99 H Lifscn) [facility] CenterUteioiiRVZGFPPECV9754-86-06 18:51:00 Test Item Value Reference Range Interpretation Comments UA Urobilinogen (test code *NA*(06/22/2012 0.1-1.0 = UA Urobilinogen) 13:51:00) [facility] CenterTffvcnxWJLSENTKTU3707-15-24 18:51:00 Test Item Value Reference Range Interpretation Comments UA Mucus (test code = Few /LPF UA Mucus) *NA*(06/22/2012 13:51:00) [facility] HospitalOgvjtgoWNASDVVRHN5593-21-77 18:51:00 Test Item Value Reference Range Interpretation Comments UA Sq Epi (test code = Few /LPF UA Sq Epi) *NA*(06/22/2012 13:51:00) [facility] CenterSxzerziNAADIXCAFG2556-85-97 18:51:00 Test Item Value Reference Range Interpretation Comments UA WBC (test code = 3 See_Comment N [Automa thelma message] The UA WBC) system which ge nerated this result transmit thelma reference range : <=5. The reference range was not used to interpr et this result as zana l/abnormal. [facility] CenterXdrzzacTIJHVILRBY7329-77-99 18:51:00 Test Item Value Reference Range Interpretation Comments UA RBC (test code = 1 See_Comment N [Automa thelma message] The UA RBC) system which ge nerated this result transmit thelma reference range : <=2. The reference range was not used to interpr et this result as zana l/abnormal. [facility] CenterZxwwxuuTVQRKUCTBA3273-69-78 18:51:00 Test Item Value Reference Range Interpretation Comments UA Leuk Est (test Moderate A code = UA Leuk Est) *ABN*(06/22/2012 13:51:00) [facility] HospitalBujvjjtCKPHLRMQMR6561-62-78 18:51:00 Test Item Value Reference Range Interpretation Comments UA Blood (test code = Negative (06/22/2012 N UA Blood) 13:51:00) [facility] CenterYinqokrHTRWDLIOQC8320-29-17 18:51:00 Test Item Value Reference Range Interpretation Comments UA Nitrite (test code Negative (06/22/2012 N = UA Nitrite) 13:51:00) [facility]CjrfhfaQMERHNEEYC5502-80-23 18:51:00 Test Item Value Reference Range Interpretation Comments UA Ketones (test code Negative mg/dL = UA Ketones) *NA*(06/22/2012 13:51:00) [facility] ArlingtonAgacdzmWIOMUUNXCY6891-04-60 18:51:00 Test Item Value Reference Range Interpretation Comments UA Bili (test code = Negative *NA*(06/22/2012 UA Bili) 13:51:00) [facility] ArlingtonUczleswYOKZNFQGQN9462-90-30 18:51:00 Test Item Value Reference Range Interpretation Comments UA Glucose (test code = 500 mg/dL A UA Glucose) *ABN*(06/22/2012 13:51:00) [facility] ArlingtonKvbyyhhWYYKYPGLWS8141-69-35 18:51:00 Test Item Value Reference Range Interpretation Comments UA pH (test code = UA pH) 6.0 5.0-8.0 N [facility] HospitalRdlkzedZCRNGMOYDF1257-93-31 18:51:00 Test Item Value Reference Range Interpretation Comments UA Protein (test code Negative mg/dL N = UA Protein) (06/22/2012 13:51:00) [facility] ArlingtonRshvakaGDWRXVBWSO5546-72-14 18:51:00 Test Item Value Reference Range Interpretation Comments UA Spec Grav (test code = UA Spec Grav) 1.008 N [facility] ArlingtonQwjdupwMSQPDDGMJV0359-29-04 18:51:00 Test Item Value Reference Range Interpretation Comments UA Color (test code = Yellow *NA*(06/22/2012 UA Color) 13:51:00) [facility] ArlingtonDcgblvfWDPJIHHFAN1669-19-09 18:51:00 Test Item Value Reference Range Interpretation Comments UA Turbidity (test code = Clear (06/22/2012 N UA Turbidity) 13:51:00) [facility] ResourcesZepbtimMonyzaymxgyj9544-41-86 18:51:00 Test Item Value Reference Range Interpretation Comments Culture: Urine (test code = Culture: Urine) [facility] ArlingtonRiaejytBQLBSNXMGQ9007-12-53 18:51:00 Test Item Value Reference Range Interpretation Comments UA Urobilinogen (test code *NA*(06/22/2012 0.1-1.0 = UA Urobilinogen) 13:51:00) [facility] HospitalAeveemwUFBGQQLLSW2803-77-98 18:51:00 Test Item Value Reference Range Interpretation Comments UA Mucus (test code = Few /LPF UA Mucus) *NA*(06/22/2012 13:51:00) [facility] HospitalDygiejvJSHYVMOZSE2450-45-54 18:51:00 Test Item Value Reference Range Interpretation Comments UA Sq Epi (test code = Few /LPF UA Sq Epi) *NA*(06/22/2012 13:51:00) [facility] ArlingtonGvceeqwNTWHZEBDBH5488-20-18 18:51:00 Test Item Value Reference Range Interpretation Comments UA WBC (test code = 3 See_Comment N [Automa thelma message] The UA WBC) system which ge nerated this result transmit thelma reference range : <=5. The reference range was not used to interpr et this result as zana l/abnormal. [facility] ArlingtonShtkukgWVKQHXOLIT4695-92-50 18:51:00 Test Item Value Reference Range Interpretation Comments UA RBC (test code = 1 See_Comment N [Automa thelma message] The UA RBC) system which ge nerated this result transmit thelma reference range : <=2. The reference range was not used to interpr et this result as zana l/abnormal. [facility] ArlingtonCfefcodZLBZBZERUT0631-05-15 18:51:00 Test Item Value Reference Range Interpretation Comments UA Leuk Est (test Moderate A code = UA Leuk Est) *ABN*(06/22/2012 13:51:00) [facility] ArlingtonJpcqgmtGZMZPHILIW5777-10-56 18:51:00 Test Item Value Reference Range Interpretation Comments UA Blood (test code = Negative (06/22/2012 N UA Blood) 13:51:00) [facility] HospitalUblkwuhKJUWKQYEDP7678-29-95 18:51:00 Test Item Value Reference Range Interpretation Comments UA Nitrite (test code Negative (06/22/2012 N = UA Nitrite) 13:51:00) [facility] HospitalWufjqelVDHBJGGZPW5303-39-97 18:51:00 Test Item Value Reference Range Interpretation Comments UA Ketones (test code Negative mg/dL = UA Ketones) *NA*(06/22/2012 13:51:00) [facility] ArlingtonJkzmejtGXIHGSSVKD3427-73-70 18:51:00 Test Item Value Reference Range Interpretation Comments UA Bili (test code = Negative *NA*(06/22/2012 UA Bili) 13:51:00) [facility] CenterKtpeuglSGMIHSCNST1914-68-28 18:51:00 Test Item Value Reference Range Interpretation Comments UA Glucose (test code = 500 mg/dL A UA Glucose) *ABN*(06/22/2012 13:51:00) [facility] HospitalZfixegnSDKLQDIZPW9399-00-66 18:51:00 Test Item Value Reference Range Interpretation Comments UA pH (test code = UA pH) 6.0 5.0-8.0 N [facility] CenterMvcrlhsURCNGPSLNM2756-97-96 18:51:00 Test Item Value Reference Range Interpretation Comments UA Protein (test code Negative mg/dL N = UA Protein) (06/22/2012 13:51:00) [facility] ArlingtonDozbtmcWUAPEBEMZA8894-24-86 18:51:00 Test Item Value Reference Range Interpretation Comments UA Spec Grav (test code = UA Spec Grav) 1.008 N [facility] HospitalIfujlfeFKMCTPJBNQ2386-96-72 18:51:00 Test Item Value Reference Range Interpretation Comments UA Color (test code = Yellow *NA*(06/22/2012 UA Color) 13:51:00) [facility] HospitalRjhtcqzKNILQPRZXJ0247-97-75 18:51:00 Test Item Value Reference Range Interpretation Comments UA Turbidity (test code = Clear (06/22/2012 N UA Turbidity) 13:51:00) [facility] CenterZkghioxZgwtzmhshzvs0605-64-90 18:51:00 Test Item Value Reference Range Interpretation Comments Culture: Urine (test code = Culture: Urine) [facility] HospitalHpyemokRZRTNEIJZA9279-32-33 18:51:00 Test Item Value Reference Range Interpretation Comments UA Urobilinogen (test code *NA*(06/22/2012 0.1-1.0 = UA Urobilinogen) 13:51:00) [facility] HospitalEnmamsxXIIHGCHGJW8418-99-28 18:51:00 Test Item Value Reference Range Interpretation Comments UA Mucus (test code = Few /LPF UA Mucus) *NA*(06/22/2012 13:51:00) [facility] HospitalPdbqusuSYVGCGKQAN2040-47-30 18:51:00 Test Item Value Reference Range Interpretation Comments UA Sq Epi (test code = Few /LPF UA Sq Epi) *NA*(06/22/2012 13:51:00) [facility] ArlingtonMilrxerKZXEYMOLJB1890-95-07 18:51:00 Test Item Value Reference Range Interpretation Comments UA WBC (test code = 3 See_Comment N [Automa thelma message] The UA WBC) system which ge nerated this result transmit thelma reference range : <=5. The reference range was not used to interpr et this result as zana l/abnormal. [facility] HospitalDjqrvzxLSPCYHIAPP0999-74-72 18:51:00 Test Item Value Reference Range Interpretation Comments UA RBC (test code = 1 See_Comment N [Automa thelma message] The UA RBC) system which ge nerated this result transmit thelma reference range : <=2. The reference range was not used to interpr et this result as zana l/abnormal. [facility] ArlingtonGcsgwllJXRTKSDYZS4340-35-75 18:51:00 Test Item Value Reference Range Interpretation Comments UA Leuk Est (test Moderate A code = UA Leuk Est) *ABN*(06/22/2012 13:51:00) [facility] ArlingtonCicrboeXCEKUVFSVQ6292-17-01 18:51:00 Test Item Value Reference Range Interpretation Comments UA Blood (test code = Negative (06/22/2012 N UA Blood) 13:51:00) [facility] HospitalJcnmkfoRWFHPPRYKG2706-79-67 18:51:00 Test Item Value Reference Range Interpretation Comments UA Nitrite (test code Negative (06/22/2012 N = UA Nitrite) 13:51:00) [facility] ArlingtonHkizmseQJIUEUHGYJ2671-24-62 18:51:00 Test Item Value Reference Range Interpretation Comments UA Ketones (test code Negative mg/dL = UA Ketones) *NA*(06/22/2012 13:51:00) [facility] ArlingtonFkcfifkAGQMXBIBZA1718-80-99 18:51:00 Test Item Value Reference Range Interpretation Comments UA Bili (test code = Negative *NA*(06/22/2012 UA Bili) 13:51:00) [facility] ArlingtonWmsszhbHJKGEBRHXQ5966-31-90 18:51:00 Test Item Value Reference Range Interpretation Comments UA Glucose (test code = 500 mg/dL A UA Glucose) *ABN*(06/22/2012 13:51:00) [facility] ArlingtonWrsnlguBJKIKGVJZW3462-89-43 18:51:00 Test Item Value Reference Range Interpretation Comments UA pH (test code = UA pH) 6.0 5.0-8.0 N [facility] CenterTmvxuzbAEGZPCMRHS8040-59-82 18:51:00 Test Item Value Reference Range Interpretation Comments UA Protein (test code Negative mg/dL N = UA Protein) (06/22/2012 13:51:00) [facility] ArlingtonZbcnqqyBKTHKBRJPB6361-75-44 18:51:00 Test Item Value Reference Range Interpretation Comments UA Spec Grav (test code = UA Spec Grav) 1.008 N [facility] CenterIctgcasCIWZPEGVLG5384-12-48 18:51:00 Test Item Value Reference Range Interpretation Comments UA Color (test code = Yellow *NA*(06/22/2012 UA Color) 13:51:00) [facility] ArlingtonYtwmesiURXNVZIUWN0958-30-38 18:51:00 Test Item Value Reference Range Interpretation Comments UA Turbidity (test code = Clear (06/22/2012 N UA Turbidity) 13:51:00) [facility] CenterUxoejosNzhiqblxtudo3356-38-73 18:51:00 Test Item Value Reference Range Interpretation Comments Culture: Urine (test code = Culture: Urine) [facility] CenterRnglctwIDAHNVPNS4868-81-64 18:28:00 Test Item Value Reference Range Interpretation Comments eGFR (test code = eGFR) 52 [facility] CenterVebdokvTZVEXJFHA7731-55-03 18:28:00 Test Item Value Reference Range Interpretation Comments Alk Phos (test code = Alk Phos) 50 39-136 N [facility] CenterGadclgvEQVTFGIGW7094-93-05 18:28:00 Test Item Value Reference Range Interpretation Comments ALT (test code = ALT) 25 See_Comment N [Auto mated message] The system which ge nerated this result transmit thelma reference range : <=65. The reference range was not used to interpr et this result as zana l/abnormal. [facility] CenterVgpzllmMPWEQBVNV7838-27-60 18:28:00 Test Item Value Reference Range Interpretation Comments AST (test code = AST) 9 See_Comment N [Auto mated message] The system which ge nerated this result transmit thelma reference range : <=37. The reference range was not used to interpr et this result as zana l/abnormal. [facility] CenterYiuamnoVDAAOGUGV7744-55-75 18:28:00 Test Item Value Reference Range Interpretation Comments AGAP (test code = AGAP) 10.7 10.0-20.0 N [facility] CenterAuwmpoqDNICNIVCA8790-70-15 18:28:00 Test Item Value Reference Range Interpretation Comments Bili Total (test code = Bili Total) 0.2 0.2-1.3 N [facility] CenterYygxcwfULLLDSXHX7420-70-07 18:28:00 Test Item Value Reference Range Interpretation Comments B/C Ratio (test code = B/C Ratio) 13 6-25 N [facility] CenterJwklgpwEVFLNGPXI8962-35-60 18:28:00 Test Item Value Reference Range Interpretation Comments Globulin (test code = Globulin) 4.1 2.0-4.0 H [facility] CenterQsflfizMOGPRMHQG9601-30-54 18:28:00 Test Item Value Reference Range Interpretation Comments A/G Ratio (test code = A/G Ratio) 0.9 0.7-1.6 N [facility] CenterOltqlqkCPEIAGZGB2764-48-46 18:28:00 Test Item Value Reference Range Interpretation Comments Albumin Lvl (test code = Albumin Lvl) 3.6 3.5-5.0 N [facility] CenterYaixudrMSXZRNGIE9333-89-78 18:28:00 Test Item Value Reference Range Interpretation Comments Potassium Lvl (test code = Potassium 3.7 3.5-5.1 N Lvl) [facility] CenterVugdborFOIJLBQKO1106-37-40 18:28:00 Test Item Value Reference Range Interpretation Comments Chloride Lvl (test code = Chloride Lvl) 101 95-109 N [facility] CenterVlltjcaTZUSNTXEZ7191-17-66 18:28:00 Test Item Value Reference Range Interpretation Comments BUN (test code = BUN) 14 7-22 N [facility] CenterRusewjbONQVMVGSW5002-97-49 18:28:00 Test Item Value Reference Range Interpretation Comments Glucose Lvl (test code = Glucose Lvl) 236 70-99 H [facility] CenterZiiluziAQWPQUOYN8190-90-37 18:28:00 Test Item Value Reference Range Interpretation Comments Creatinine Lvl (test code = Creatinine 1.1 0.5-1.4 N Lvl) [facility] CenterXjysyevTNLJPXLLB7232-66-28 18:28:00 Test Item Value Reference Range Interpretation Comments Sodium Lvl (test code = Sodium Lvl) 138 135-145 N [facility] CenterOmbwrgtCSGRFXWSX8966-16-28 18:28:00 Test Item Value Reference Range Interpretation Comments Calcium Lvl (test code = Calcium Lvl) 9.3 8.5-10.5 N [facility] CenterGdrybytQKTDBPUJA6724-55-27 18:28:00 Test Item Value Reference Range Interpretation Comments CO2 (test code = CO2) 30 24-32 N [facility] CenterDcqbrwvKVVMSBDAH9938-74-31 18:28:00 Test Item Value Reference Range Interpretation Comments Total Protein (test code = Total 7.7 6.4-8.4 N Protein) [facility] CenterRmdzojiMFXQDSSUA6007-40-88 18:28:00 Test Item Value Reference Range Interpretation Comments eGFR (test code = eGFR) 52 [facility] CenterPixptfeUWAQEKITK4459-92-68 18:28:00 Test Item Value Reference Range Interpretation Comments Alk Phos (test code = Alk Phos) 50 39-136 N [facility] CenterUwoqvqfSOYUSEATH5753-13-84 18:28:00 Test Item Value Reference Range Interpretation Comments ALT (test code = ALT) 25 See_Comment N [Auto mated message] The system which ge nerated this result transmit thelma reference range : <=65. The reference range was not used to interpr et this result as zana l/abnormal. [facility] CenterYsqpyepVPVOFQKTM8983-45-88 18:28:00 Test Item Value Reference Range Interpretation Comments AST (test code = AST) 9 See_Comment N [Auto mated message] The system which ge nerated this result transmit thelma reference range : <=37. The reference range was not used to interpr et this result as zana l/abnormal. [facility] CenterEofpnylMPROOLACF5173-40-66 18:28:00 Test Item Value Reference Range Interpretation Comments AGAP (test code = AGAP) 10.7 10.0-20.0 N [facility] CenterNwwqhiqJGZVDJFPX2190-17-18 18:28:00 Test Item Value Reference Range Interpretation Comments Bili Total (test code = Bili Total) 0.2 0.2-1.3 N [facility] CenterAxfyrfcDKNNPTZFA2141-98-22 18:28:00 Test Item Value Reference Range Interpretation Comments B/C Ratio (test code = B/C Ratio) 13 6-25 N [facility] CenterYgqjvzgRXAMVSCBK2113-81-93 18:28:00 Test Item Value Reference Range Interpretation Comments Globulin (test code = Globulin) 4.1 2.0-4.0 H [facility] CenterVflwextTHYHKFIKF6032-12-71 18:28:00 Test Item Value Reference Range Interpretation Comments A/G Ratio (test code = A/G Ratio) 0.9 0.7-1.6 N [facility] CenterUtbrvueSAHKCQJXH2306-60-01 18:28:00 Test Item Value Reference Range Interpretation Comments Albumin Lvl (test code = Albumin Lvl) 3.6 3.5-5.0 N [facility] CenterJamletyEOXAIMQPA3987-92-16 18:28:00 Test Item Value Reference Range Interpretation Comments Potassium Lvl (test code = Potassium 3.7 3.5-5.1 N Lvl) [facility] CenterUtyuujsPWBEHQZCO0622-78-73 18:28:00 Test Item Value Reference Range Interpretation Comments Chloride Lvl (test code = Chloride Lvl) 101 95-109 N [facility] CenterTrboofrPBYHIRWBO7590-41-58 18:28:00 Test Item Value Reference Range Interpretation Comments BUN (test code = BUN) 14 7-22 N [facility] CenterIqwyjiaEMHUUOYJQ4946-31-57 18:28:00 Test Item Value Reference Range Interpretation Comments Glucose Lvl (test code = Glucose Lvl) 236 70-99 H [facility] CenterPkdpqmwIRNRNTKBE1506-49-42 18:28:00 Test Item Value Reference Range Interpretation Comments Creatinine Lvl (test code = Creatinine 1.1 0.5-1.4 N Lvl) [facility] CenterYnerjvlUTQCGWDSJ0644-37-73 18:28:00 Test Item Value Reference Range Interpretation Comments Sodium Lvl (test code = Sodium Lvl) 138 135-145 N [facility] CenterEjlkwezFSFFVVQGU7779-76-80 18:28:00 Test Item Value Reference Range Interpretation Comments Calcium Lvl (test code = Calcium Lvl) 9.3 8.5-10.5 N [facility] CenterOzjhrnoKOGGEUIJW7377-64-56 18:28:00 Test Item Value Reference Range Interpretation Comments CO2 (test code = CO2) 30 24-32 N [facility] CenterQmqzojoLMTQMGABG2368-35-55 18:28:00 Test Item Value Reference Range Interpretation Comments Total Protein (test code = Total 7.7 6.4-8.4 N Protein) [facility] CenterYbzmbilUYMZSGDSC9809-85-08 18:28:00 Test Item Value Reference Range Interpretation Comments eGFR (test code = eGFR) 52 [facility] CenterTjfxznrEYDXTCTZZ0614-50-85 18:28:00 Test Item Value Reference Range Interpretation Comments Alk Phos (test code = Alk Phos) 50 39-136 N [facility] ZyvsdkjRHIMIOWVB9108-41-63 18:28:00 Test Item Value Reference Range Interpretation Comments ALT (test code = ALT) 25 See_Comment N [Auto mated message] The system which ge nerated this result transmit thelma reference range : <=65. The reference range was not used to interpr et this result as zana l/abnormal. [facility]RehioeyTVKYUDDOC9998-75-[facility] 18:28:00 Test Item Value Reference Range Interpretation Comments AST (test code = AST) 9 See_Comment N [Auto mated message] The system which ge nerated this result transmit thelma reference range : <=37. The reference range was not used to interpr et this result as zana l/abnormal. [facility] HospitalWvxcmlzBRYEIWNBI1325-07-90 18:28:00 Test Item Value Reference Range Interpretation Comments AGAP (test code = AGAP) 10.7 10.0-20.0 N [facility] HospitalOyybtttCJZNREEYM0157-41-90 18:28:00 Test Item Value Reference Range Interpretation Comments Bili Total (test code = Bili Total) 0.2 0.2-1.3 N [facility] HospitalDylbijzIQTQTYFYI9085-03-54 18:28:00 Test Item Value Reference Range Interpretation Comments B/C Ratio (test code = B/C Ratio) 13 6-25 N [facility] HospitalHacpnyzRTCYQCTSS3070-07-41 18:28:00 Test Item Value Reference Range Interpretation Comments Globulin (test code = Globulin) 4.1 2.0-4.0 H [facility] HospitalHywmpppZYSOPTMME4384-35-74 18:28:00 Test Item Value Reference Range Interpretation Comments A/G Ratio (test code = A/G Ratio) 0.9 0.7-1.6 N [facility] WwektvoMSAUMWIYG2946-06-78 18:28:00 Test Item Value Reference Range Interpretation Comments Albumin Lvl (test code = Albumin Lvl) 3.6 3.5-5.0 N [facility] HospitalEmrypqeLEZIWEYQZ0171-66-18 18:28:00 Test Item Value Reference Range Interpretation Comments Potassium Lvl (test code = Potassium 3.7 3.5-5.1 N Lvl) [facility] HospitalXgftemeHOLKSEUNW0629-83-86 18:28:00 Test Item Value Reference Range Interpretation Comments Chloride Lvl (test code = Chloride Lvl) 101 95-109 N [facility] CenterHbswqfhWLGQWGZZW4239-41-29 18:28:00 Test Item Value Reference Range Interpretation Comments BUN (test code = BUN) 14 7-22 N [facility] CenterXcgonpvITPCRWEIM8244-92-09 18:28:00 Test Item Value Reference Range Interpretation Comments Glucose Lvl (test code = Glucose Lvl) 236 70-99 H [facility] CenterVlpvvlmZUKIHEUPZ1583-60-36 18:28:00 Test Item Value Reference Range Interpretation Comments Creatinine Lvl (test code = Creatinine 1.1 0.5-1.4 N Lvl) [facility] CenterDalndteXKVDTUBOW3573-71-22 18:28:00 Test Item Value Reference Range Interpretation Comments Sodium Lvl (test code = Sodium Lvl) 138 135-145 N [facility] CenterMbjyxpjNHVWWEWXO2998-81-57 18:28:00 Test Item Value Reference Range Interpretation Comments Calcium Lvl (test code = Calcium Lvl) 9.3 8.5-10.5 N [facility] CenterGdlrmxbDUJNLQHIB8755-73-84 18:28:00 Test Item Value Reference Range Interpretation Comments CO2 (test code = CO2) 30 24-32 N [facility] CenterEboqrsfPUVOZTVSU7585-21-62 18:28:00 Test Item Value Reference Range Interpretation Comments Total Protein (test code = Total 7.7 6.4-8.4 N Protein) [facility] GLUCOSE XJCQJWG4566-07-03 16:05:00 Test Item Value Reference Range Interpretation Comments Gluc POC Lifscn (test code = Gluc POC 160 70-99 H Lifscn) [facility] GLUCOSE MZCQIRV2620-34-40 16:05:00 Test Item Value Reference Range Interpretation Comments Comment1 (test code = Comment1) Repeat Test [facility] GLUCOSE [id number] 16:05:00 Test Item Value Reference Range Interpretation Comments Gluc POC Lifscn (test code = Gluc POC 160 70-99 H Lifscn) [facility] GLUCOSE LVGXVRV6532-98-20 16:05:00 Test Item Value Reference Range Interpretation Comments Comment1 (test code = Comment1) Repeat Test [facility] GLUCOSE JSSTVVP4716-75-95 16:05:00 Test Item Value Reference Range Interpretation Comments Gluc POC Lifscn (test code = Gluc POC 160 70-99 H Lifscn) [facility] GLUCOSE LWWEYGK2610-33-88 16:05:00 Test Item Value Reference Range Interpretation Comments Comment1 (test code = Comment1) Repeat Test [facility] GLUCOSE SRXOAPX0933-23-16 12:08:00 Test Item Value Reference Range Interpretation Comments Gluc POC Lifscn (test code = Gluc POC 129 70-99 H Lifscn) [facility] GLUCOSE AUWCCQZ9164-46-04 12:08:00 Test Item Value Reference Range Interpretation Comments Gluc POC Lifscn (test code = Gluc POC 129 70-99 H Lifscn) [facility] GLUCOSE LGGFGAJ4516-46-60 12:08:00 Test Item Value Reference Range Interpretation Comments Gluc POC Lifscn (test code = Gluc POC 129 70-99 H Lifscn) [facility]CRYRDOJSCM5122-[facility]-26 09:10:00 Test Item Value Reference Range Interpretation Comments RBC (test code = RBC) 3.93 4.20-5.40 [facility]OeiafzbPZRMDLNXJY4450-76-47 09:10:00 Test Item Value Reference Range Interpretation Comments Hct (test code = Hct) 32.7 36.0-48.0 L [facility]iscoMddtmpqRIXEOUWBKM5875-80-12 09:10:00 Test Item Value Reference Range Interpretation Comments WBC (test code = WBC) 7.3 3.7-10.4 N [facility]iscoIrxmatrRAAXJLBQLF9929-89-97 09:10:00 Test Item Value Reference Range Interpretation Comments MCV (test code = MCV) 83.2 81.0-99.0 N [facility]iscoOvaostyVPKRVSNHQM3788-82-90 09:10:00 Test Item Value Reference Range Interpretation Comments MCH (test code = MCH) 28.5 pg 27.0-31.0 N [facility]iscoSinqcmtFVOOSKLVVU6645-34-33 09:10:00 Test Item Value Reference Range Interpretation Comments RDW (test code = RDW) 13.9 11.5-14.5 N [facility]iscoCbzidfmSIYVKFCPDS3784-22-39 09:10:00 Test Item Value Reference Range Interpretation Comments MCHC (test code = MCHC) 34.2 32.0-36.0 N [facility]iscoYjmozvpLBYISPZVBY6657-49-06 09:10:00 Test Item Value Reference Range Interpretation Comments MPV (test code = MPV) 8.5 7.4-10.4 N [facility]iscoWqfinbcMTEWEOCGIB1827-39-21 09:10:00 Test Item Value Reference Range Interpretation Comments Platelet (test code = Platelet) 206 133-450 N [facility]iscoIfdvyezLKAHCBZIUN7778-26-41 09:10:00 Test Item Value Reference Range Interpretation Comments Hgb (test code = Hgb) 11.2 12.0-16.0 L [facility]iscoZlkamjqKQNYTRXMLY2677-21-79 09:10:00 Test Item Value Reference Range Interpretation Comments Basophils # (test code 0.1 See_Comment N [Aut omated message] The = Basophils #) system which generated this result tra nsmitted reference range : <=0.2. The reference r eric was not used to int erpret this result as normal/abnormal . [facility]iscoTacqvqjBZFWXKLKSE2829-46-77 09:10:00 Test Item Value Reference Range Interpretation Comments Monocytes (test code = Monocytes) 9.3 2.0-12.0 N [facility]iscoIoufzchRGTGLWEZIU8752-42-40 09:10:00 Test Item Value Reference Range Interpretation Comments Segs-Bands # (test code = Segs-Bands #) 3.6 1.5-8.1 N [facility]iscoFralnruLZXJXIOTHL3766-48-03 09:10:00 Test Item Value Reference Range Interpretation Comments Monocytes # (test code 0.7 See_Comment N [Aut omated message] The = Monocytes #) system which generated this result tra nsmitted reference range : <=0.8. The reference r eric was not used to int erpret this result as normal/abnormal . [facility]iscoBoxoocnHUVNITXXFR2250-92-17 09:10:00 Test Item Value Reference Range Interpretation Comments Eosinophils # (test code 0.5 See_Comment N [A utomated message] The = Eosinophils #) system whic h generated this result tra nsmitted reference range : <=0.5. The reference r eric was not used to int erpret this result as normal/abnormal . [facility]iscoCghnlrqUMJVINPPHM8702-00-08 09:10:00 Test Item Value Reference Range Interpretation Comments Segs (test code = Segs) 49.3 45.0-75.0 N [facility]iscoZthntbdBHSPRFBRPE2433-78-01 09:10:00 Test Item Value Reference Range Interpretation Comments Lymphocytes # (test code = Lymphocytes 2.5 1.0-5.5 N #) [facility]iscoGcerkvnAYKQIDHAOG7249-19-94 09:10:00 Test Item Value Reference Range Interpretation Comments Eosinophils (test code = 6.8 See_Comment H [A utomated message] The Eosinophils) system which ge nerated this result tra nsmitted reference range : <=4.0. The reference r eric was not used to int erpret this result as normal/abnormal . [facility]iscoRjtijraOEPVGYWHNH7753-62-73 09:10:00 Test Item Value Reference Range Interpretation Comments Basophils (test code = 1.0 See_Comment N [Aut omated message] The Basophils) system which ge nerated this result tra nsmitted reference range : <=1.0. The reference r eric was not used to int erpret this result as normal/abnormal . [facility]iscoGdzdeccTRNDZZAOOA5085-22-02 09:10:00 Test Item Value Reference Range Interpretation Comments Lymphocytes (test code = Lymphocytes) 33.6 20.0-40.0 N [facility]iscoYslgvhiOLRRWMNBYZ5403-61-13 09:10:00 Test Item Value Reference Range Interpretation Comments RBC (test code = RBC) 3.93 4.20-5.40 L [facility]iscoDmyqixcTUHNOEPPQZ4207-76-58 09:10:00 Test Item Value Reference Range Interpretation Comments Hct (test code = Hct) 32.7 36.0-48.0 L [facility]iscoJalqggrZZIHWICPCX6675-40-95 09:10:00 Test Item Value Reference Range Interpretation Comments WBC (test code = WBC) 7.3 3.7-10.4 N [facility]iscoFqmigotAXWSOWOGCC8689-72-92 09:10:00 Test Item Value Reference Range Interpretation Comments MCV (test code = MCV) 83.2 81.0-99.0 N [facility]iscoHaglwcwMWSJOIXGNK6690-16-01 09:10:00 Test Item Value Reference Range Interpretation Comments MCH (test code = MCH) 28.5 pg 27.0-31.0 N [facility]iscoXtjjhvgWMBSOBXXPO4947-75-20 09:10:00 Test Item Value Reference Range Interpretation Comments RDW (test code = RDW) 13.9 11.5-14.5 N [facility]iscoPkppssjAATFPCBSGY8114-28-45 09:10:00 Test Item Value Reference Range Interpretation Comments MCHC (test code = MCHC) 34.2 32.0-36.0 N [facility]iscoJfxejhbYUCITLBTEF2584-66-77 09:10:00 Test Item Value Reference Range Interpretation Comments MPV (test code = MPV) 8.5 7.4-10.4 N [facility]iscoVbcyxefKKKDBDISCJ9842-78-95 09:10:00 Test Item Value Reference Range Interpretation Comments Platelet (test code = Platelet) 206 133-450 N [facility]iscoThufaewQGFNKFKOUO6852-50-79 09:10:00 Test Item Value Reference Range Interpretation Comments Hgb (test code = Hgb) 11.2 12.0-16.0 L [facility]iscoJsoogjzCSAUFULYVL4208-26-34 09:10:00 Test Item Value Reference Range Interpretation Comments Basophils # (test code 0.1 See_Comment N [Aut omated message] The = Basophils #) system which generated this result tra nsmitted reference range : <=0.2. The reference r eric was not used to int erpret this result as normal/abnormal . [facility]iscoBvbcaguFYMIZGNABA7022-93-71 09:10:00 Test Item Value Reference Range Interpretation Comments Monocytes (test code = Monocytes) 9.3 2.0-12.0 N [facility]iscoVswcpevUWEHRZGNEU9120-27-36 09:10:00 Test Item Value Reference Range Interpretation Comments Segs-Bands # (test code = Segs-Bands #) 3.6 1.5-8.1 N [facility]iscoUvcxameBHGZZGUXGM3605-29-87 09:10:00 Test Item Value Reference Range Interpretation Comments Monocytes # (test code 0.7 See_Comment N [Aut omated message] The = Monocytes #) system which generated this result tra nsmitted reference range : <=0.8. The reference r eric was not used to int erpret this result as normal/abnormal . [facility]iscoYeqmgewKTRKGHKQTQ5662-34-39 09:10:00 Test Item Value Reference Range Interpretation Comments Eosinophils # (test code 0.5 See_Comment N [A utomated message] The = Eosinophils #) system whic h generated this result tra nsmitted reference range : <=0.5. The reference r eric was not used to int erpret this result as normal/abnormal . [facility]iscoFfmamwwUBIRQQJEAT6407-63-36 09:10:00 Test Item Value Reference Range Interpretation Comments Segs (test code = Segs) 49.3 45.0-75.0 N [facility]iscoZojhglaTGJPBERPDO2050-38-35 09:10:00 Test Item Value Reference Range Interpretation Comments Lymphocytes # (test code = Lymphocytes 2.5 1.0-5.5 N #) [facility]iscoWmsuugwKWEJUTQAEU4698-33-34 09:10:00 Test Item Value Reference Range Interpretation Comments Eosinophils (test code = 6.8 See_Comment H [A utomated message] The Eosinophils) system which ge nerated this result tra nsmitted reference range : <=4.0. The reference r eric was not used to int erpret this result as normal/abnormal . [facility]iscoSjywgfrTQUWOKEVAI6187-19-82 09:10:00 Test Item Value Reference Range Interpretation Comments Basophils (test code = 1.0 See_Comment N [Aut omated message] The Basophils) system which ge nerated this result tra nsmitted reference range : <=1.0. The reference r eric was not used to int erpret this result as normal/abnormal . [facility]iscoPlbgysaASSATRBJIQ6555-70-12 09:10:00 Test Item Value Reference Range Interpretation Comments Lymphocytes (test code = Lymphocytes) 33.6 20.0-40.0 N [facility]iscoJvdrcvsWZVXZYOYBF4584-65-13 09:10:00 Test Item Value Reference Range Interpretation Comments RBC (test code = RBC) 3.93 4.20-5.40 L [facility]iscoKqxpuhsDNHYAWINQF3595-27-63 09:10:00 Test Item Value Reference Range Interpretation Comments Hct (test code = Hct) 32.7 36.0-48.0 L [facility]iscoCkvvkqhJVVTBXMXPV9671-78-64 09:10:00 Test Item Value Reference Range Interpretation Comments WBC (test code = WBC) 7.3 3.7-10.4 N [facility]iscoBpscuybLICKJACKFI4764-35-25 09:10:00 Test Item Value Reference Range Interpretation Comments MCV (test code = MCV) 83.2 81.0-99.0 N [facility]iscoOvwyszdHJSCSABORH2090-46-48 09:10:00 Test Item Value Reference Range Interpretation Comments MCH (test code = MCH) 28.5 pg 27.0-31.0 N [facility]iscoEisvccyILLWCCKKMR5314-03-54 09:10:00 Test Item Value Reference Range Interpretation Comments RDW (test code = RDW) 13.9 11.5-14.5 N [facility]iscoXqreiorFKQZZIOYWJ8818-34-42 09:10:00 Test Item Value Reference Range Interpretation Comments MCHC (test code = MCHC) 34.2 32.0-36.0 N [facility]iscoIahobinGIQZAEWDFY9932-50-35 09:10:00 Test Item Value Reference Range Interpretation Comments MPV (test code = MPV) 8.5 7.4-10.4 N [facility]iscoGtngjmdJJIPPLEUUC4381-56-54 09:10:00 Test Item Value Reference Range Interpretation Comments Platelet (test code = Platelet) 206 133-450 N [facility]iscoXfyuwhfOJDEEAGTKR9971-77-33 09:10:00 Test Item Value Reference Range Interpretation Comments Hgb (test code = Hgb) 11.2 12.0-16.0 L [facility]iscoKlgjvmwPQQXKKLABH8207-34-86 09:10:00 Test Item Value Reference Range Interpretation Comments Basophils # (test code 0.1 See_Comment N [Aut omated message] The = Basophils #) system which generated this result tra nsmitted reference range : <=0.2. The reference r eric was not used to int erpret this result as normal/abnormal . [facility]iscoHbmsdmjPVDAGSQJNZ3977-62-12 09:10:00 Test Item Value Reference Range Interpretation Comments Monocytes (test code = Monocytes) 9.3 2.0-12.0 N [facility]iscoScwwzatCWPELLCHTJ0033-17-56 09:10:00 Test Item Value Reference Range Interpretation Comments Segs-Bands # (test code = Segs-Bands #) 3.6 1.5-8.1 N [facility]iscoAkzazdaCDURWVOLLQ6677-29-27 09:10:00 Test Item Value Reference Range Interpretation Comments Monocytes # (test code 0.7 See_Comment N [Aut omated message] The = Monocytes #) system which generated this result tra nsmitted reference range : <=0.8. The reference r eric was not used to int erpret this result as normal/abnormal . [facility]iscoJidchrwNDEAHEAWBZ2968-19-68 09:10:00 Test Item Value Reference Range Interpretation Comments Eosinophils # (test code 0.5 See_Comment N [A utomated message] The = Eosinophils #) system whic h generated this result tra nsmitted reference range : <=0.5. The reference r eric was not used to int erpret this result as normal/abnormal . [facility]iscoPeergnrEJYBWTMYFK3112-91-46 09:10:00 Test Item Value Reference Range Interpretation Comments Segs (test code = Segs) 49.3 45.0-75.0 N [facility]iscoPztkrqyGLZESSCYWV8581-48-19 09:10:00 Test Item Value Reference Range Interpretation Comments Lymphocytes # (test code = Lymphocytes 2.5 1.0-5.5 N #) [facility]iscoTzuakgvYGPJVZLTFL9703-25-24 09:10:00 Test Item Value Reference Range Interpretation Comments Eosinophils (test code = 6.8 See_Comment H [A utomated message] The Eosinophils) system which ge nerated this result tra nsmitted reference range : <=4.0. The reference r eric was not used to int erpret this result as normal/abnormal . [facility]iscoZuecpvlEBKMNEIYIK0451-21-31 09:10:00 Test Item Value Reference Range Interpretation Comments Basophils (test code = 1.0 See_Comment N [Aut omated message] The Basophils) system which ge nerated this result tra nsmitted reference range : <=1.0. The reference r eric was not used to int erpret this result as normal/abnormal . [facility]iscoVhkqhnyTESKMQJWFJ4040-56-67 09:10:00 Test Item Value Reference Range Interpretation Comments Lymphocytes (test code = Lymphocytes) 33.6 20.0-40.0 N [facility] GLUCOSE PGGYGQT2099-50-49 02:13:00 Test Item Value Reference Range Interpretation Comments Comment1 (test code = Comment1) Notify RN [facility] GLUCOSE ASCFTAF7350-55-83 02:13:00 Test Item Value Reference Range Interpretation Comments Gluc POC Lifscn (test code = Gluc POC 146 70-99 H Lifscn) [facility] GLUCOSE RNRKUCE3020-77-86 02:13:00 Test Item Value Reference Range Interpretation Comments Comment1 (test code = Comment1) Notify RN [facility] GLUCOSE NDCHXRY1599-32-87 02:13:00 Test Item Value Reference Range Interpretation Comments Gluc POC Lifscn (test code = Gluc POC 146 70-99 H Lifscn) [facility] GLUCOSE VAROCKE0569-82-38 02:13:00 Test Item Value Reference Range Interpretation Comments Comment1 (test code = Comment1) Notify RN [facility] GLUCOSE SDPPFAN9183-45-89 02:13:00 Test Item Value Reference Range Interpretation Comments Gluc POC Lifscn (test code = Gluc POC 146 70-99 H Lifscn) [facility] CenterKgdvudiJSKAQDUNG4439-23-96 09:45:00 Test Item Value Reference Range Interpretation Comments pO2 Art (test code = pO2 Art) 62 80-100 L [facility] CenterWliqkcqDVWLOKSLH6856-48-52 09:45:00 Test Item Value Reference Range Interpretation Comments HCO3 Art (test code = HCO3 Art) 30 22-26 H [facility] CenterKdyjzqsGTAAEUYSY9715-59-52 09:45:00 Test Item Value Reference Range Interpretation Comments pCO2 Art (test code = pCO2 Art) 54 35-45 H [facility] CenterAhddcjeHKIHBPQDU7828-30-43 09:45:00 Test Item Value Reference Range Interpretation Comments BE Art (test code = 4 See_Comment H [Automa thelma message] The BE Art) system which ge nerated this result transmit thelma reference range : <=2. The reference range was not used to interpr et this result as zana l/abnormal. [facility] CenterKjhvidoXQSEQAILU2870-33-26 09:45:00 Test Item Value Reference Range Interpretation Comments O2 Sat Art (test code = O2 Sat Art) 92.0 95.0-100.0 L [facility] CenterBxmrsunLPWRFGOCK1746-92-03 09:45:00 Test Item Value Reference Range Interpretation Comments pH Art (test code = pH Art) 7.36 7.35-7.45 N [facility] CenterPasjvkgNNDABCXRK2098-20-49 09:45:00 Test Item Value Reference Range Interpretation Comments Allens Art (test code = N/A (06/10/2012 N Allens Art) 04:45:00) [facility] CenterEyhnohqRRRHFMWJZ4761-72-31 09:45:00 Test Item Value Reference Range Interpretation Comments Mode Art (test code = Mode Art) Room Air [facility] CenterCyoxdrcFZRFZVTQU4826-27-72 09:45:00 Test Item Value Reference Range Interpretation Comments Site Art (test code = A Line (06/10/2012 N Site Art) 04:45:00) [facility] CenterQqrvmbkZGRUULCDD6282-61-44 09:45:00 Test Item Value Reference Range Interpretation Comments FiO2 Art (test code = FiO2 Art) 21.0 [facility] CenterRvkpdvgYIBGBEWTJ4399-29-08 09:45:00 Test Item Value Reference Range Interpretation Comments AGAP (test code = AGAP) 8.1 10.0-20.0 L [facility] CenterAhumfpjNVTEPRBFK8799-78-00 09:45:00 Test Item Value Reference Range Interpretation Comments Chloride Lvl (test code = Chloride Lvl) 107 95-109 N [facility] CenterJhzahjxPHSBZHGLE9871-59-18 09:45:00 Test Item Value Reference Range Interpretation Comments Calcium Lvl (test code = Calcium Lvl) 8.4 8.5-10.5 L [facility] CenterTvjjxnqKRMLLSAVG3260-82-78 09:45:00 Test Item Value Reference Range Interpretation Comments CO2 (test code = CO2) 30 24-32 N [facility] CenterSlsukkiYUKSZUSOM3278-63-31 09:45:00 Test Item Value Reference Range Interpretation Comments BUN (test code = BUN) 8 7-22 N [facility] CenterPejfsidGOJYHWPRK2690-39-24 09:45:00 Test Item Value Reference Range Interpretation Comments Creatinine Lvl (test code = Creatinine 0.7 0.5-1.4 N Lvl) [facility] CenterSmjbqoyGBJIWUPGJ7396-45-71 09:45:00 Test Item Value Reference Range Interpretation Comments Sodium Lvl (test code = Sodium Lvl) 141 135-145 N [facility] CenterBcnsvdnBYEBVDLJM6517-86-82 09:45:00 Test Item Value Reference Range Interpretation Comments Potassium Lvl (test code = Potassium 4.1 3.5-5.1 N Lvl) [facility] CenterCjrdsdiMSZNQQJPF5087-66-56 09:45:00 Test Item Value Reference Range Interpretation Comments Glucose Lvl (test code = Glucose Lvl) 114 70-99 H [facility]KtfzioeMVOOOQNKBS3366-80-05 09:45:00 Test Item Value Reference Range Interpretation Comments MCH (test code = MCH) 28.2 pg 27.0-31.0 N [facility]iscoTsxlstnJDGQQLDBPZ0269-96-52 09:45:00 Test Item Value Reference Range Interpretation Comments MPV (test code = MPV) 8.7 7.4-10.4 N [facility]iscoXygeociETKXCTLZIF4372-55-36 09:45:00 Test Item Value Reference Range Interpretation Comments RDW (test code = RDW) 13.7 11.5-14.5 N [facility]iscoRovuevrBKPWPFTPDO3008-95-91 09:45:00 Test Item Value Reference Range Interpretation Comments MCHC (test code = MCHC) 33.8 32.0-36.0 N [facility]iscoAprrtnlXDENQFDDOH7409-92-06 09:45:00 Test Item Value Reference Range Interpretation Comments Platelet (test code = Platelet) 200 133-450 N [facility]iscoQsorqgwGVWUWBFZKT1428-75-00 09:45:00 Test Item Value Reference Range Interpretation Comments MCV (test code = MCV) 83.6 81.0-99.0 N [facility]iscoJearjviOJMQDCZJMI2684-79-72 09:45:00 Test Item Value Reference Range Interpretation Comments Hgb (test code = Hgb) 10.4 12.0-16.0 L [facility]iscoIijxmmoKMATGFNDQU6259-89-21 09:45:00 Test Item Value Reference Range Interpretation Comments Hct (test code = Hct) 30.9 36.0-48.0 L [facility]iscoDsvjtteZNYWKOVUEL1190-36-94 09:45:00 Test Item Value Reference Range Interpretation Comments RBC (test code = RBC) 3.70 4.20-5.40 L [facility]iscoHmgeoeaKLYODDZHTI6153-70-48 09:45:00 Test Item Value Reference Range Interpretation Comments WBC (test code = WBC) 8.4 3.7-10.4 N [facility]iscoWicritlBEXLYDLZCJ9115-98-82 09:45:00 Test Item Value Reference Range Interpretation Comments Eosinophils # (test code 0.5 See_Comment N [A utomated message] The = Eosinophils #) system whic h generated this result tra nsmitted reference range : <=0.5. The reference r eric was not used to int erpret this result as normal/abnormal . [facility]iscoBxphgafQNVWRUWQRK0341-79-69 09:45:00 Test Item Value Reference Range Interpretation Comments Basophils # (test code 0.1 See_Comment N [Aut omated message] The = Basophils #) system which generated this result tra nsmitted reference range : <=0.2. The reference r eric was not used to int erpret this result as normal/abnormal . [facility]iscoQjbomhzWUNPBOBLVT6718-03-27 09:45:00 Test Item Value Reference Range Interpretation Comments Segs-Bands # (test code = Segs-Bands #) 4.6 1.5-8.1 N [facility]iscoXcwlfboWOXLFRGUVL9366-59-98 09:45:00 Test Item Value Reference Range Interpretation Comments Monocytes (test code = Monocytes) 8.5 2.0-12.0 [facility]jbnfivTDLWYSVVHT4693-42-89 09:45:00 Test Item Value Reference Range Interpretation Comments Eosinophils (test code = 6.1 See_Comment H [A utomated message] The Eosinophils) system which ge nerated this result tra nsmitted reference range : <=4.0. The reference r eric was not used to int erpret this result as normal/abnormal . [facility]EzgdwyxMFASYLHBLW6153-28-98 09:45:00 Test Item Value Reference Range Interpretation Comments Basophils (test code = 0.7 See_Comment N [Aut omated message] The Basophils) system which ge nerated this result tra nsmitted reference range : <=1.0. The reference r eric was not used to int erpret this result as normal/abnormal . [facility]iscoZuwuhltQLTAZKLQXO2248-58-92 09:45:00 Test Item Value Reference Range Interpretation Comments Monocytes # (test code 0.7 See_Comment N [Aut omated message] The = Monocytes #) system which generated this result tra nsmitted reference range : <=0.8. The reference r eric was not used to int erpret this result as normal/abnormal . [facility]iscoBbzetbuXSQBMNARYK9214-63-18 09:45:00 Test Item Value Reference Range Interpretation Comments Lymphocytes # (test code = Lymphocytes 2.5 1.0-5.5 N #) [facility]CajynybKOQVVGFGVR5164-44-73 09:45:00 Test Item Value Reference Range Interpretation Comments Segs (test code = Segs) 54.6 45.0-75.0 N [facility]iscoBvowjsqXYNWJLAVWN1004-39-70 09:45:00 Test Item Value Reference Range Interpretation Comments Lymphocytes (test code = Lymphocytes) 30.1 20.0-40.0 N [facility] CenterEleyximRKJCNRQCS3456-29-23 09:45:00 Test Item Value Reference Range Interpretation Comments pO2 Art (test code = pO2 Art) 62 80-100 L [facility] CenterDjrkecbMPERAHRSC4114-59-88 09:45:00 Test Item Value Reference Range Interpretation Comments HCO3 Art (test code = HCO3 Art) 30 22-26 H [facility] CenterDqcaxnaBUUEYDCPD3572-95-14 09:45:00 Test Item Value Reference Range Interpretation Comments pCO2 Art (test code = pCO2 Art) 54 35-45 H [facility] HospitalAuklagkFDJIMOXPO5378-99-34 09:45:00 Test Item Value Reference Range Interpretation Comments BE Art (test code = 4 See_Comment H [Automa thelma message] The BE Art) system which ge nerated this result transmit thelma reference range : <=2. The reference range was not used to interpr et this result as zana l/abnormal. [facility] HospitalQziueftUZUPFDSDY5581-56-47 09:45:00 Test Item Value Reference Range Interpretation Comments O2 Sat Art (test code = O2 Sat Art) 92.0 95.0-100.0 L [facility] HospitalTmfgwopRJHWSRDPB9160-16-77 09:45:00 Test Item Value Reference Range Interpretation Comments pH Art (test code = pH Art) 7.36 7.35-7.45 N [facility] CenterEmerknjZFLTPXVBZ4495-65-51 09:45:00 Test Item Value Reference Range Interpretation Comments Allens Art (test code = N/A (06/10/2012 N Allens Art) 04:45:00) [facility] CenterVrljinsBLOTWBLXA3282-55-92 09:45:00 Test Item Value Reference Range Interpretation Comments Mode Art (test code = Mode Art) Room Air [facility] HospitalBaigohfYNZNQNSEN4967-50-13 09:45:00 Test Item Value Reference Range Interpretation Comments Site Art (test code = A Line (06/10/2012 N Site Art) 04:45:00) [facility] HospitalBhdchqzLCSQWOGVU8904-45-80 09:45:00 Test Item Value Reference Range Interpretation Comments FiO2 Art (test code = FiO2 Art) 21.0 [facility] HospitalPmvstbaMKXVAPAQJ0234-46-79 09:45:00 Test Item Value Reference Range Interpretation Comments AGAP (test code = AGAP) 8.1 10.0-20.0 L [facility] HospitalHmxxzajMDKXDDYJH2800-82-19 09:45:00 Test Item Value Reference Range Interpretation Comments Chloride Lvl (test code = Chloride Lvl) 107 95-109 N [facility] HospitalFkekansTWVNTUNXF5839-93-34 09:45:00 Test Item Value Reference Range Interpretation Comments Calcium Lvl (test code = Calcium Lvl) 8.4 8.5-10.5 L [facility] HospitalRwhcravUYUNFREQZ4965-75-59 09:45:00 Test Item Value Reference Range Interpretation Comments CO2 (test code = CO2) 30 24-32 N [facility] CenterTwtygzoZLIWUYOAD9281-74-92 09:45:00 Test Item Value Reference Range Interpretation Comments BUN (test code = BUN) 8 7-22 N [facility] CenterSjdrctdUEBQPNADT4369-75-86 09:45:00 Test Item Value Reference Range Interpretation Comments Creatinine Lvl (test code = Creatinine 0.7 0.5-1.4 N Lvl) [facility] CenterStysrfeEYVSPQRVH2989-31-89 09:45:00 Test Item Value Reference Range Interpretation Comments Sodium Lvl (test code = Sodium Lvl) 141 135-145 N [facility] CenterPvhxtrwADBHRSCIX2645-30-92 09:45:00 Test Item Value Reference Range Interpretation Comments Potassium Lvl (test code = Potassium 4.1 3.5-5.1 N Lvl) [facility] CenterYfhtzraCBXGXYOIV9600-25-74 09:45:00 Test Item Value Reference Range Interpretation Comments Glucose Lvl (test code = Glucose Lvl) 114 70-99 H [facility]XbjcuqbKZLAEUPQUY8894-92-27 09:45:00 Test Item Value Reference Range Interpretation Comments MCH (test code = MCH) 28.2 pg 27.0-31.0 N [facility]iscoNpwtlomRTUGXQZOXX6015-04-42 09:45:00 Test Item Value Reference Range Interpretation Comments MPV (test code = MPV) 8.7 7.4-10.4 N [facility]iscoApfkdvqNTEMSWFWSS2614-56-39 09:45:00 Test Item Value Reference Range Interpretation Comments RDW (test code = RDW) 13.7 11.5-14.5 N [facility]iscoLlafbpyCJOMHCTWII3520-20-93 09:45:00 Test Item Value Reference Range Interpretation Comments MCHC (test code = MCHC) 33.8 32.0-36.0 N [facility]iscoUsnmiccZXRYMSSEJF8362-98-13 09:45:00 Test Item Value Reference Range Interpretation Comments Platelet (test code = Platelet) 200 133-450 N [facility]iscoYwinhepCVDSFPZJZY4583-36-92 09:45:00 Test Item Value Reference Range Interpretation Comments MCV (test code = MCV) 83.6 81.0-99.0 N [facility]iscoTlyuqeyXGAQDVGPLS0343-83-44 09:45:00 Test Item Value Reference Range Interpretation Comments Hgb (test code = Hgb) 10.4 12.0-16.0 L [facility]iscoRviqiisUVYDBMXQEH8260-12-49 09:45:00 Test Item Value Reference Range Interpretation Comments Hct (test code = Hct) 30.9 36.0-48.0 L [facility]iscoQysisqqGQKHSBENLJ7972-08-03 09:45:00 Test Item Value Reference Range Interpretation Comments RBC (test code = RBC) 3.70 4.20-5.40 L [facility]iscoObamjckEFFTXTFDRV5151-94-52 09:45:00 Test Item Value Reference Range Interpretation Comments WBC (test code = WBC) 8.4 3.7-10.4 N [facility]iscoAyfntkiENGASTIEML0436-89-74 09:45:00 Test Item Value Reference Range Interpretation Comments Eosinophils # (test code 0.5 See_Comment N [A utomated message] The = Eosinophils #) system whic h generated this result tra nsmitted reference range : <=0.5. The reference r eric was not used to int erpret this result as normal/abnormal . [facility]iscoItwdmdiFJERZHWSQK0392-17-31 09:45:00 Test Item Value Reference Range Interpretation Comments Basophils # (test code 0.1 See_Comment N [Aut omated message] The = Basophils #) system which generated this result tra nsmitted reference range : <=0.2. The reference r eric was not used to int erpret this result as normal/abnormal . [facility]iscoWxlzbxkOEVPGOXHBC8165-97-54 09:45:00 Test Item Value Reference Range Interpretation Comments Segs-Bands # (test code = Segs-Bands #) 4.6 1.5-8.1 N [facility]iscoQaldzlsXYIMDHAWJH3344-19-58 09:45:00 Test Item Value Reference Range Interpretation Comments Monocytes (test code = Monocytes) 8.5 2.0-12.0 N [facility]iscoYlflucuFHQOCKUPBC0945-65-96 09:45:00 Test Item Value Reference Range Interpretation Comments Eosinophils (test code = 6.1 See_Comment H [A utomated message] The Eosinophils) system which ge nerated this result tra nsmitted reference range : <=4.0. The reference r eric was not used to int erpret this result as normal/abnormal . [facility]iscoGfseqnbNFXPCNSYJW2073-02-85 09:45:00 Test Item Value Reference Range Interpretation Comments Basophils (test code = 0.7 See_Comment N [Aut omated message] The Basophils) system which ge nerated this result tra nsmitted reference range : <=1.0. The reference r eric was not used to int erpret this result as normal/abnormal . [facility]iscoAitmlgrLQYNDGSYJM6399-12-78 09:45:00 Test Item Value Reference Range Interpretation Comments Monocytes # (test code 0.7 See_Comment N [Aut omated message] The = Monocytes #) system which generated this result tra nsmitted reference range : <=0.8. The reference r eric was not used to int erpret this result as normal/abnormal . [facility]iscoOxdwkgjFYLKYVWXHW6094-86-28 09:45:00 Test Item Value Reference Range Interpretation Comments Lymphocytes # (test code = Lymphocytes 2.5 1.0-5.5 N #) [facility]iscoRokqdojOLCRVWMDDA5093-82-11 09:45:00 Test Item Value Reference Range Interpretation Comments Segs (test code = Segs) 54.6 45.0-75.0 N [facility]iscoImtwtfzERYECPWWCM5275-32-83 09:45:00 Test Item Value Reference Range Interpretation Comments Lymphocytes (test code = Lymphocytes) 30.1 20.0-40.0 N [facility] CenterJkpcigzBBVRJLMNA5865-78-16 09:45:00 Test Item Value Reference Range Interpretation Comments pO2 Art (test code = pO2 Art) 62 80-100 L [facility] CenterUcptawhCPAYWWXGI5866-36-71 09:45:00 Test Item Value Reference Range Interpretation Comments HCO3 Art (test code = HCO3 Art) 30 22-26 H [facility] CenterIkhmjffLOYHEUFLK5359-04-36 09:45:00 Test Item Value Reference Range Interpretation Comments pCO2 Art (test code = pCO2 Art) 54 35-45 H [facility] CenterLunsjliYFFTWXITW2878-32-23 09:45:00 Test Item Value Reference Range Interpretation Comments BE Art (test code = 4 See_Comment H [Automa thelma message] The BE Art) system which ge nerated this result transmit thelma reference range : <=2. The reference range was not used to interpr et this result as zana l/abnormal. [facility] CenterKakkismPGBKXDCED4571-19-79 09:45:00 Test Item Value Reference Range Interpretation Comments O2 Sat Art (test code = O2 Sat Art) 92.0 95.0-100.0 L [facility] CenterWobsbosOBPCXEWQE4663-59-50 09:45:00 Test Item Value Reference Range Interpretation Comments pH Art (test code = pH Art) 7.36 7.35-7.45 N [facility] CenterOoaocuzWVXOLERCN6416-99-87 09:45:00 Test Item Value Reference Range Interpretation Comments Allens Art (test code = N/A (06/10/2012 N Allens Art) 04:45:00) [facility] CenterQkprvsfBVRIDMZFE3769-62-44 09:45:00 Test Item Value Reference Range Interpretation Comments Mode Art (test code = Mode Art) Room Air [facility] CenterWdxoetiUQGACCFZP1715-66-00 09:45:00 Test Item Value Reference Range Interpretation Comments Site Art (test code = A Line (06/10/2012 N Site Art) 04:45:00) [facility] CenterUppluyjVJTOOIQRB0989-75-01 09:45:00 Test Item Value Reference Range Interpretation Comments FiO2 Art (test code = FiO2 Art) 21.0 [facility] CenterGsvimazGDLXTJMOO1298-76-08 09:45:00 Test Item Value Reference Range Interpretation Comments AGAP (test code = AGAP) 8.1 10.0-20.0 L [facility] CenterPxzklbwDDYUZMZET6508-54-15 09:45:00 Test Item Value Reference Range Interpretation Comments Chloride Lvl (test code = Chloride Lvl) 107 95-109 N [facility] CenterVhdjotcAPBYYBVQC8920-39-85 09:45:00 Test Item Value Reference Range Interpretation Comments Calcium Lvl (test code = Calcium Lvl) 8.4 8.5-10.5 L [facility] CenterJqihkoxMMIAYZALP6215-25-82 09:45:00 Test Item Value Reference Range Interpretation Comments CO2 (test code = CO2) 30 24-32 N [facility] CenterWhqxdbdSUIQXQDVW3111-14-80 09:45:00 Test Item Value Reference Range Interpretation Comments BUN (test code = BUN) 8 7-22 N [facility] CenterXotunngAIZIYNKPI1413-08-15 09:45:00 Test Item Value Reference Range Interpretation Comments Creatinine Lvl (test code = Creatinine 0.7 0.5-1.4 N Lvl) [facility] CenterHphldkaXAUNTKXLC9020-36-83 09:45:00 Test Item Value Reference Range Interpretation Comments Sodium Lvl (test code = Sodium Lvl) 141 135-145 N [facility] CenterFpfmduxLZCDXIKMZ0140-58-02 09:45:00 Test Item Value Reference Range Interpretation Comments Potassium Lvl (test code = Potassium 4.1 3.5-5.1 N Lvl) [facility] CenterLgspwlmLJXXHNZFL9280-33-01 09:45:00 Test Item Value Reference Range Interpretation Comments Glucose Lvl (test code = Glucose Lvl) 114 70-99 H [facility]QxuuxxdURSDEEUXTG4361-33-84 09:45:00 Test Item Value Reference Range Interpretation Comments MCH (test code = MCH) 28.2 pg 27.0-31.0 N [facility]iscoLexcbwzQWKQCBLBCN2381-50-45 09:45:00 Test Item Value Reference Range Interpretation Comments MPV (test code = MPV) 8.7 7.4-10.4 N [facility]iscoLxphktlVUXWJRFIGF1203-84-62 09:45:00 Test Item Value Reference Range Interpretation Comments RDW (test code = RDW) 13.7 11.5-14.5 N [facility]iscoIhwwampKHMQLZJFQU3692-15-47 09:45:00 Test Item Value Reference Range Interpretation Comments MCHC (test code = MCHC) 33.8 32.0-36.0 N [facility]iscoRnsllmlGAPEVYAGCP8635-76-70 09:45:00 Test Item Value Reference Range Interpretation Comments Platelet (test code = Platelet) 200 133-450 N [facility]iscoLgnzxzoVZYGOSEGJJ9422-25-52 09:45:00 Test Item Value Reference Range Interpretation Comments MCV (test code = MCV) 83.6 81.0-99.0 N [facility]iscoPshfwtnMDPFJJYSPX4268-69-36 09:45:00 Test Item Value Reference Range Interpretation Comments Hgb (test code = Hgb) 10.4 12.0-16.0 L [facility]iscoHvkrimfCJWXFVOTSP3866-09-17 09:45:00 Test Item Value Reference Range Interpretation Comments Hct (test code = Hct) 30.9 36.0-48.0 L [facility]iscoNsxyxzqJBFYPXRTWB3989-58-91 09:45:00 Test Item Value Reference Range Interpretation Comments RBC (test code = RBC) 3.70 4.20-5.40 L [facility]iscoCptdmaxWFCVRCGKAW2323-35-16 09:45:00 Test Item Value Reference Range Interpretation Comments WBC (test code = WBC) 8.4 3.7-10.4 N [facility]iscoWnhsuaaSNWCFBFJYL7063-04-08 09:45:00 Test Item Value Reference Range Interpretation Comments Eosinophils # (test code 0.5 See_Comment N [A utomated message] The = Eosinophils #) system [facility] generated this result tra nsmitted reference range : <=0.5. The reference r eric was not used to int erpret this result as normal/abnormal . [facility]iscoLfhhogzPBUGOTEFVY7502-02-99 09:45:00 Test Item Value Reference Range Interpretation Comments Basophils # (test code 0.1 See_Comment N [Aut omated message] The = Basophils #) system which generated this result tra nsmitted reference range : <=0.2. The reference r eric was not used to int erpret this result as normal/abnormal . [facility]iscoHbnakfsCGJENDBPQR3565-59-02 09:45:00 Test Item Value Reference Range Interpretation Comments Segs-Bands # (test code = Segs-Bands #) 4.6 1.5-8.1 N [facility]iscoGijuozuCRFYXSNYWJ0664-48-50 09:45:00 Test Item Value Reference Range Interpretation Comments Monocytes (test code = Monocytes) 8.5 2.0-12.0 N [facility]iscoYqkdeoaUAGFZSULMK6727-38-34 09:45:00 Test Item Value Reference Range Interpretation Comments Eosinophils (test code = 6.1 See_Comment H [A utomated message] The Eosinophils) system which ge nerated this result tra nsmitted reference range : <=4.0. The reference r eric was not used to int erpret this result as normal/abnormal . [facility]iscoZkanirdTVKVTMPISS5467-47-95 09:45:00 Test Item Value Reference Range Interpretation Comments Basophils (test code = 0.7 See_Comment N [Aut omated message] The Basophils) system which ge nerated this result tra nsmitted reference range : <=1.0. The reference r eric was not used to int erpret this result as normal/abnormal . [facility]iscoLqnkpdpEMYIOIJCTF7793-86-13 09:45:00 Test Item Value Reference Range Interpretation Comments Monocytes # (test code 0.7 See_Comment N [Aut omated message] The = Monocytes #) system which generated this result tra nsmitted reference range : <=0.8. The reference r eric was not used to int erpret this result as normal/abnormal . [facility]iscoHggefqsYHRPCHVJAM9235-15-76 09:45:00 Test Item Value Reference Range Interpretation Comments Lymphocytes # (test code = Lymphocytes 2.5 1.0-5.5 N #) [facility]iscoZwjiyhpJPGLEQHJLH1679-85-88 09:45:00 Test Item Value Reference Range Interpretation Comments Segs (test code = Segs) 54.6 45.0-75.0 N [facility]iscoAwisapbSZMCADQJWL3878-27-60 09:45:00 Test Item Value Reference Range Interpretation Comments Lymphocytes (test code = Lymphocytes) 30.1 20.0-40.0 N [facility] GLUCOSE FHPSQJP9557-27-07 01:43:00 Test Item Value Reference Range Interpretation Comments Comment1 (test code = Comment1) Notify RN [facility] GLUCOSE ZFZMARC1557-44-65 01:43:00 Test Item Value Reference Range Interpretation Comments Comment1 (test code = Comment1) Notify RN [facility] GLUCOSE BSTZFBY0250-18-89 01:43:00 Test Item Value Reference Range Interpretation Comments Comment1 (test code = Comment1) Notify [facility]2012-09-26 17:10:00 Test Item Value Reference Range Interpretation Comments BE Art (test code = -3 See_Comment L [Automa thelma message] The BE Art) system which ge nerated this result transmit thelma reference range : <=2. The reference range was not used to interpr et this result as zana l/abnormal. [facility] CenterKzrwrknUOQBCLXFI2296-84-20 17:10:00 Test Item Value Reference Range Interpretation Comments HCO3 Art (test code = HCO3 Art) 24 22-26 N [facility] CenterGdqczrxRNAGHWHXO6971-41-60 17:10:00 Test Item Value Reference Range Interpretation Comments pO2 Art (test code = pO2 Art) 219 80-100 H [facility] CenterYnyvzmhKBQDYGEOJ6501-45-26 17:10:00 Test Item Value Reference Range Interpretation Comments O2 Sat Art (test code = O2 Sat Art) 99.4 95.0-100.0 N [facility] CenterIhoptxbBYFORCHXW1290-91-29 17:10:00 Test Item Value Reference Range Interpretation Comments Site Art (test code = A Line (06/09/2012 N Site Art) 12:10:00) [facility] CenterWiueqouOUCTXEGJH2706-35-51 17:10:00 Test Item Value Reference Range Interpretation Comments Mode Art (test code = SM (06/09/2012 N Mode Art) 12:10:00) [facility] CenterPhbvvnmSBFXFPAEG5425-84-68 17:10:00 Test Item Value Reference Range Interpretation Comments Flow Art (test code = Flow Art) 7.0 [facility] CenterManrbubKFQJTAVXX0978-55-93 17:10:00 Test Item Value Reference Range Interpretation Comments Allens Art (test code = N/A (06/09/2012 N Allens Art) 12:10:00) [facility] CenterWyfmzrvQISTXDJDU8504-10-26 17:10:00 Test Item Value Reference Range Interpretation Comments pCO2 Art (test code = pCO2 Art) 46 35-45 H [facility] CenterOmnglmoJFVNOMEQE4755-59-91 17:10:00 Test Item Value Reference Range Interpretation Comments pH Art (test code = pH Art) 7.32 7.35-7.45 L [facility] CenterWoukcwwQNBKLDAPZ3275-63-84 17:10:00 Test Item Value Reference Range Interpretation Comments BE Art (test code = -3 See_Comment L [Automa thelma message] The BE Art) system which ge nerated this result transmit thelma reference range : <=2. The reference range was not used to interpr et this result as zana l/abnormal. [facility] CenterXklxaahAHXKPFOVY3937-68-15 17:10:00 Test Item Value Reference Range Interpretation Comments HCO3 Art (test code = HCO3 Art) 24 22-26 N [facility] CenterHbvdxsfPEBIGNFAY4229-96-09 17:10:00 Test Item Value Reference Range Interpretation Comments pO2 Art (test code = pO2 Art) 219 80-100 H [facility] CenterIguetddRXTPZNSMX0744-31-47 17:10:00 Test Item Value Reference Range Interpretation Comments O2 Sat Art (test code = O2 Sat Art) 99.4 95.0-100.0 N [facility] CenterWffcpwoQVFLAASPC8058-57-64 17:10:00 Test Item Value Reference Range Interpretation Comments Site Art (test code = A Line (06/09/2012 N Site Art) 12:10:00) [facility] CenterPapsimgRYLCIUWMR8511-59-10 17:10:00 Test Item Value Reference Range Interpretation Comments Mode Art (test code = SM (06/09/2012 N Mode Art) 12:10:00) [facility] CenterKrtuutbQZSXDAGOI1269-64-60 17:10:00 Test Item Value Reference Range Interpretation Comments Flow Art (test code = Flow Art) 7.0 [facility] HospitalWwohhwvICVIEPIAD7768-58-71 17:10:00 Test Item Value Reference Range Interpretation Comments Allens Art (test code = N/A (06/09/2012 N Allens Art) 12:10:00) [facility] HospitalTgakqflMHZVKZEQZ7403-97-48 17:10:00 Test Item Value Reference Range Interpretation Comments pCO2 Art (test code = pCO2 Art) 46 35-45 H [facility] HospitalGbtgrhuJHKCADWPS5682-87-46 17:10:00 Test Item Value Reference Range Interpretation Comments pH Art (test code = pH Art) 7.32 7.35-7.45 L [facility] HospitalKhswatnWNIPRMERQ3220-26-24 17:10:00 Test Item Value Reference Range Interpretation Comments BE Art (test code = -3 See_Comment L [Automa thelma message] The BE Art) system which ge nerated this result transmit thelma reference range : <=2. The reference range was not used to interpr et this result as zana l/abnormal. [facility] HospitalYtigworAKXHLUHJU2014-77-25 17:10:00 Test Item Value Reference Range Interpretation Comments HCO3 Art (test code = HCO3 Art) 24 22-26 N [facility] HospitalJfdvadhSBVMEFMTV7331-41-00 17:10:00 Test Item Value Reference Range Interpretation Comments pO2 Art (test code = pO2 Art) 219 80-100 H [facility] CenterMklrngwDPGUIGWBW2121-04-79 17:10:00 Test Item Value Reference Range Interpretation Comments O2 Sat Art (test code = O2 Sat Art) 99.4 95.0-100.0 N [facility] HospitalMhoziyfJOLMGOSFF1271-30-63 17:10:00 Test Item Value Reference Range Interpretation Comments Site Art (test code = A Line (06/09/2012 N Site Art) 12:10:00) [facility] HospitalPmqpfzvAUPNVZKFR0858-83-02 17:10:00 Test Item Value Reference Range Interpretation Comments Mode Art (test code = SM (06/09/2012 N Mode Art) 12:10:00) [facility] HospitalTjumdlbRZNNSGDWG6208-26-99 17:10:00 Test Item Value Reference Range Interpretation Comments Flow Art (test code = Flow Art) 7.0 [facility] HospitalNcdhrnqVJRJDPTIB0615-74-68 17:10:00 Test Item Value Reference Range Interpretation Comments Allens Art (test code = N/A (06/09/2012 N Allens Art) 12:10:00) [facility] CenterFaygrkiQWSUGUFFA0646-85-44 17:10:00 Test Item Value Reference Range Interpretation Comments pCO2 Art (test code = pCO2 Art) 46 35-45 H [facility] CenterPfolsmtEUTGOXCLP2672-91-15 17:10:00 Test Item Value Reference Range Interpretation Comments pH Art (test code = pH Art) 7.32 7.35-7.45 L [facility] CenterBACTERIAL - ORHKMKXL0245-04-30 17:00:00 Test Item Value Reference Range Interpretation Comments MRSA by PCR (test Negative 1(06/09/2012 N code = MRSA by PCR) 12:00:00) [facility] CenterVzxddsqWFXMIHTXD5163-15-10 17:00:00 Test Item Value Reference Range Interpretation Comments Glucose Lvl (test code = Glucose Lvl) 148 70-99 H [facility] CenterPositoxJNYRZQLIS2278-64-52 17:00:00 Test Item Value Reference Range Interpretation Comments BUN (test code = BUN) 11 7-22 N [facility] CenterLntyelvNQPNTKJZZ8275-91-05 17:00:00 Test Item Value Reference Range Interpretation Comments Sodium Lvl (test code = Sodium Lvl) 143 135-145 N [facility] CenterQtphdrbGSIJHXACX7118-40-54 17:00:00 Test Item Value Reference Range Interpretation Comments Creatinine Lvl (test code = Creatinine 0.8 0.5-1.4 N Lvl) [facility] CenterOfuepqnBKTBQSXAV0692-95-62 17:00:00 Test Item Value Reference Range Interpretation Comments Calcium Lvl (test code = Calcium Lvl) 8.2 8.5-10.5 L [facility] CenterXlvfxuvIAAYCIBSC8076-02-21 17:00:00 Test Item Value Reference Range Interpretation Comments Chloride Lvl (test code = Chloride Lvl) 108 95-109 N [facility] CenterHblpjpdHMIVVFKZN4941-05-00 17:00:00 Test Item Value Reference Range Interpretation Comments CO2 (test code = CO2) 29 24-32 N [facility] CenterVgbeanbLCVPUZIPK2039-24-26 17:00:00 Test Item Value Reference Range Interpretation Comments Potassium Lvl (test code = Potassium 3.8 3.5-5.1 N Lvl) [facility] CenterGernlfsCIDIRMBND4033-92-07 17:00:00 Test Item Value Reference Range Interpretation Comments AGAP (test code = AGAP) 9.8 10.0-20.0 L [facility]GlilnuzZQQBXVFXVP5652-54-41 17:00:00 Test Item Value Reference Range Interpretation Comments Basophils # (test code 0.0 See_Comment N [Aut omated message] The = Basophils #) system which generated this result tra nsmitted reference range : <=0.2. The reference r eric was not used to int erpret this result as normal/abnormal . [facility]iscoBvhthzvSPHLTFABFF4615-39-50 17:00:00 Test Item Value Reference Range Interpretation Comments Eosinophils # (test code 0.4 See_Comment N [A utomated message] The = Eosinophils #) system whic h generated this result tra nsmitted reference range : <=0.5. The reference r eric was not used to int erpret this result as normal/abnormal . [facility]iscoAavothdPQVAUZHKKE3859-87-27 17:00:00 Test Item Value Reference Range Interpretation Comments Monocytes # (test code 0.5 See_Comment N [Aut omated message] The = Monocytes #) system which generated this result tra nsmitted reference range : <=0.8. The reference r eric was not used to int erpret this result as normal/abnormal . [facility]iscoPdoclyvBWJNKVTRIZ5272-53-38 17:00:00 Test Item Value Reference Range Interpretation Comments Lymphocytes # (test code = Lymphocytes 3.2 1.0-5.5 N #) [facility]iscoEsokyrvQLXJUUABOM3546-66-74 17:00:00 Test Item Value Reference Range Interpretation Comments Segs-Bands # (test code = Segs-Bands #) 3.7 1.5-8.1 N [facility]iscoGwbdqoyWSDCIPDVAW8762-90-24 17:00:00 Test Item Value Reference Range Interpretation Comments Basophils (test code = 0.5 See_Comment N [Aut omated message] The Basophils) system which ge nerated this result tra nsmitted reference range : <=1.0. The reference r eric was not used to int erpret this result as normal/abnormal . [facility]iscoNgvpuyrSMTPSDSFBS9290-60-71 17:00:00 Test Item Value Reference Range Interpretation Comments Eosinophils (test code = 5.0 See_Comment H [A utomated message] The Eosinophils) system which ge nerated this result tra nsmitted reference range : <=4.0. The reference r eric was not used to int erpret this result as normal/abnormal . [facility]iscoRqfzmxxFWLDVEXFNL6399-01-31 17:00:00 Test Item Value Reference Range Interpretation Comments Monocytes (test code = Monocytes) 6.3 2.0-12.0 N [facility]iscoGagikowGSLNOXOZFL3131-82-67 17:00:00 Test Item Value Reference Range Interpretation Comments Segs (test code = Segs) 47.0 45.0-75.0 N [facility]iscoKqxxfhfYDFHVHTTJS5205-65-17 17:00:00 Test Item Value Reference Range Interpretation Comments Lymphocytes (test code = Lymphocytes) 41.2 20.0-40.0 H [facility]iscoQgnwfvxMREFVRZETA6132-20-59 17:00:00 Test Item Value Reference Range Interpretation Comments Platelet (test code = Platelet) 191 133-450 N [facility]iscoPjtiycyJJOSAWCTNH8016-35-23 17:00:00 Test Item Value Reference Range Interpretation Comments RDW (test code = RDW) 13.9 11.5-14.5 N [facility]iscoJgxmvbsODHADYDMLD3957-92-75 17:00:00 Test Item Value Reference Range Interpretation Comments MCHC (test code = MCHC) 33.2 32.0-36.0 N [facility]iscoDmebdwbQTUMJKHIIJ4012-21-69 17:00:00 Test Item Value Reference Range Interpretation Comments MPV (test code = MPV) 8.4 7.4-10.4 N [facility]iscoCaucfscVCQRIMEILJ6095-13-54 17:00:00 Test Item Value Reference Range Interpretation Comments MCH (test code = MCH) 27.7 pg 27.0-31.0 N [facility]iscoCdupaetFEQRQAHJZR4478-89-76 17:00:00 Test Item Value Reference Range Interpretation Comments WBC (test code = WBC) 7.8 3.7-10.4 N [facility]iscoJqffpaoDMZFDOTLDF0593-93-15 17:00:00 Test Item Value Reference Range Interpretation Comments MCV (test code = MCV) 83.6 81.0-99.0 N [facility]iscoRmwtuscIXFPCARADV9656-30-08 17:00:00 Test Item Value Reference Range Interpretation Comments Hct (test code = Hct) 30.5 36.0-48.0 L [facility]iscoAwgctzpZFTEHLMMAP0899-14-66 17:00:00 Test Item Value Reference Range Interpretation Comments Hgb (test code = Hgb) 10.1 12.0-16.0 L [facility]KzedyrsSOBCNBMQJX4463-59-30 17:00:00 Test Item Value Reference Range Interpretation Comments RBC (test code = RBC) 3.65 4.20-5.40 [facility] - XBNPSXGM3535-49-48 17:00:00 Test Item Value Reference Range Interpretation Comments MRSA by PCR (test Negative 1(06/09/2012 N code = MRSA by PCR) 12:00:00) [facility] CenterFdbgbwvIBCUBZOCK4976-84-69 17:00:00 Test Item Value Reference Range Interpretation Comments Glucose Lvl (test code = Glucose Lvl) 148 70-99 H [facility] CenterXvgzasdZBWAMSMZZ5282-18-77 17:00:00 Test Item Value Reference Range Interpretation Comments BUN (test code = BUN) 11 7-22 N [facility] CenterTrcmaxcPWKDTYBZG2868-77-93 17:00:00 Test Item Value Reference Range Interpretation Comments Sodium Lvl (test code = Sodium Lvl) 143 135-145 N [facility] CenterVbzumtiAWRFPOBDO5467-76-68 17:00:00 Test Item Value Reference Range Interpretation Comments Creatinine Lvl (test code = Creatinine 0.8 0.5-1.4 N Lvl) [facility] CenterFnigyvxOVGEDEFGW4475-65-71 17:00:00 Test Item Value Reference Range Interpretation Comments Calcium Lvl (test code = Calcium Lvl) 8.2 8.5-10.5 L [facility] CenterImrsorhFKJRGTOYK2681-80-95 17:00:00 Test Item Value Reference Range Interpretation Comments Chloride Lvl (test code = Chloride Lvl) 108 95-109 N [facility] CenterXjghsejPMRBLOQLD6770-86-96 17:00:00 Test Item Value Reference Range Interpretation Comments CO2 (test code = CO2) 29 24-32 N [facility] CenterRptifnmTUAICLSET6313-33-75 17:00:00 Test Item Value Reference Range Interpretation Comments Potassium Lvl (test code = Potassium 3.8 3.5-5.1 N Lvl) [facility] CenterWvoklqnXIIJPMFPS6899-35-33 17:00:00 Test Item Value Reference Range Interpretation Comments AGAP (test code = AGAP) 9.8 10.0-20.0 L [facility]iscoOoactclCRZUQBEXHZ6114-20-70 17:00:00 Test Item Value Reference Range Interpretation Comments Basophils # (test code 0.0 See_Comment N [Aut omated message] The = Basophils #) system which generated this result tra nsmitted reference range : <=0.2. The reference r eric was not used to int erpret this result as normal/abnormal . [facility]iscoKdizcnqCGKGRMZGBS2556-37-75 17:00:00 Test Item Value Reference Range Interpretation Comments Eosinophils # (test code 0.4 See_Comment N [A utomated message] The = Eosinophils #) system whic h generated this result tra nsmitted reference range : <=0.5. The reference r eric was not used to int erpret this result as normal/abnormal . [facility]iscoQeeskvcKGTXLWDBPD8844-56-40 17:00:00 Test Item Value Reference Range Interpretation Comments Monocytes # (test code 0.5 See_Comment N [Aut omated message] The = Monocytes #) system which generated this result tra nsmitted reference range : <=0.8. The reference r eric was not used to int erpret this result as normal/abnormal . [facility]iscoIwgtzuzXISHCDZVDL7118-80-22 17:00:00 Test Item Value Reference Range Interpretation Comments Lymphocytes # (test code = Lymphocytes 3.2 1.0-5.5 N #) [facility]iscoGksmevvPCWFJHFWGL4477-74-45 17:00:00 Test Item Value Reference Range Interpretation Comments Segs-Bands # (test code = Segs-Bands #) 3.7 1.5-8.1 N [facility]iscoUvdfxqcTPIMIQSRRV9970-94-50 17:00:00 Test Item Value Reference Range Interpretation Comments Basophils (test code = 0.5 See_Comment N [Aut omated message] The Basophils) system which ge nerated this result tra nsmitted reference range : <=1.0. The reference r eric was not used to int erpret this result as normal/abnormal . [facility]iscoIvgooqdFDTXJNYDRK5582-59-38 17:00:00 Test Item Value Reference Range Interpretation Comments Eosinophils (test code = 5.0 See_Comment H [A utomated message] The Eosinophils) system which ge nerated this result tra nsmitted reference range : <=4.0. The reference r eric was not used to int erpret this result as normal/abnormal . [facility]iscoDqrkmzuTBPEVTBINI3598-28-34 17:00:00 Test Item Value Reference Range Interpretation Comments Monocytes (test code = Monocytes) 6.3 2.0-12.0 N [facility]iscoQrtjfsiGLJLMJSWJZ3341-77-45 17:00:00 Test Item Value Reference Range Interpretation Comments Segs (test code = Segs) 47.0 45.0-75.0 N [facility]iscoOewgxcfFPUPPDTQYU9038-63-57 17:00:00 Test Item Value Reference Range Interpretation Comments Lymphocytes (test code = Lymphocytes) 41.2 20.0-40.0 H [facility]iscoEfrtsndEURODQMNJL8487-58-00 17:00:00 Test Item Value Reference Range Interpretation Comments Platelet (test code = Platelet) 191 133-450 N [facility]iscoYpljisbJTADBOBUVF0511-39-02 17:00:00 Test Item Value Reference Range Interpretation Comments RDW (test code = RDW) 13.9 11.5-14.5 N [facility]iscoCtevnomYGJEAPEVDK4435-36-23 17:00:00 Test Item Value Reference Range Interpretation Comments MCHC (test code = MCHC) 33.2 32.0-36.0 N [facility]iscoEwmoqugXIFZAJEONY4022-83-14 17:00:00 Test Item Value Reference Range Interpretation Comments MPV (test code = MPV) 8.4 7.4-10.4 N [facility]iscoAtfptopYAUNBBSZST6422-71-79 17:00:00 Test Item Value Reference Range Interpretation Comments MCH (test code = MCH) 27.7 pg 27.0-31.0 N [facility]iscoSpeiiwgJZKWSQQOFW6709-88-39 17:00:00 Test Item Value Reference Range Interpretation Comments WBC (test code = WBC) 7.8 3.7-10.4 N [facility]iscoWvqgyxmJLOAPUJCON5845-22-24 17:00:00 Test Item Value Reference Range Interpretation Comments MCV (test code = MCV) 83.6 81.0-99.0 N [facility]iscoTordffmSCLHZAPJXU2867-97-93 17:00:00 Test Item Value Reference Range Interpretation Comments Hct (test code = Hct) 30.5 36.0-48.0 L [facility]iscoAyyvbqnENAJYHZUIK2213-17-97 17:00:00 Test Item Value Reference Range Interpretation Comments Hgb (test code = Hgb) 10.1 12.0-16.0 L [facility]iscoApwjtglLWFORCMEJH1381-97-71 17:00:00 Test Item Value Reference Range Interpretation Comments RBC (test code = RBC) 3.65 4.20-5.40 L [facility]BACT[facility] - BXAYMBHA7318-12-12 17:00:00 Test Item Value Reference Range Interpretation Comments MRSA by PCR (test Negative 1(06/09/2012 N code = MRSA by PCR) 12:00:00) [facility] CenterKrulpazPXDPTOUNY6770-13-90 17:00:00 Test Item Value Reference Range Interpretation Comments Glucose Lvl (test code = Glucose Lvl) 148 70-99 H [facility] CenterZfztvrlEHEVBQOUS9382-01-67 17:00:00 Test Item Value Reference Range Interpretation Comments BUN (test code = BUN) 11 7-22 N [facility] CenterTkppebhEXCDPOAWC4459-30-36 17:00:00 Test Item Value Reference Range Interpretation Comments Sodium Lvl (test code = Sodium Lvl) 143 135-145 N [facility] CenterSghejymGUXXTRLBT4535-06-84 17:00:00 Test Item Value Reference Range Interpretation Comments Creatinine Lvl (test code = Creatinine 0.8 0.5-1.4 N Lvl) [facility] CenterTbxndtnETAJBDTIX6357-59-74 17:00:00 Test Item Value Reference Range Interpretation Comments Calcium Lvl (test code = Calcium Lvl) 8.2 8.5-10.5 L [facility] CenterAtiajnvESAUOYFRR8306-77-43 17:00:00 Test Item Value Reference Range Interpretation Comments Chloride Lvl (test code = Chloride Lvl) 108 95-109 N [facility] CenterAitsixuXECLFSZJI4652-06-38 17:00:00 Test Item Value Reference Range Interpretation Comments CO2 (test code = CO2) 29 24-32 N [facility] CenterJvqkcueSVTGLHNMU1243-23-25 17:00:00 Test Item Value Reference Range Interpretation Comments Potassium Lvl (test code = Potassium 3.8 3.5-5.1 N Lvl) [facility] CenterLjwzfqiBDKMSKMUK8372-76-37 17:00:00 Test Item Value Reference Range Interpretation Comments AGAP (test code = AGAP) 9.8 10.0-20.0 L [facility]QukulcuCTJCFJMEUB7988-16-88 17:00:00 Test Item Value Reference Range Interpretation Comments Basophils # (test code 0.0 See_Comment N [Aut omated message] The = Basophils #) system which generated this result tra nsmitted reference range : <=0.2. The reference r eric was not used to int erpret this result as normal/abnormal . [facility]iscoRwxmzptYLXNIJHMNU2863-83-39 17:00:00 Test Item Value Reference Range Interpretation Comments Eosinophils # (test code 0.4 See_Comment N [A utomated message] The = Eosinophils #) system [facility] h generated this result tra nsmitted reference range : <=0.5. The reference r eric was not used to int erpret this result as normal/abnormal . [facility]iscoUugqdcnIAPBZLXMIH2360-87-33 17:00:00 Test Item Value Reference Range Interpretation Comments Monocytes # (test code 0.5 See_Comment N [Aut omated message] The = Monocytes #) system which generated this result tra nsmitted reference range : <=0.8. The reference r eric was not used to int erpret this result as normal/abnormal . [facility]iscoTszygwuJMJPJFBEPZ3961-72-76 17:00:00 Test Item Value Reference Range Interpretation Comments Lymphocytes # (test code = Lymphocytes 3.2 1.0-5.5 N #) [facility]iscoHcakpodOSXCWKVWSJ2913-32-20 17:00:00 Test Item Value Reference Range Interpretation Comments Segs-Bands # (test code = Segs-Bands #) 3.7 1.5-8.1 N [facility]iscoDqlrggrXXUBGNVMID8970-73-61 17:00:00 Test Item Value Reference Range Interpretation Comments Basophils (test code = 0.5 See_Comment N [Aut omated message] The Basophils) system which ge nerated this result tra nsmitted reference range : <=1.0. The reference r eric was not used to int erpret this result as normal/abnormal . [facility]iscoBpdzzyjZTQUTFGDBJ9790-58-87 17:00:00 Test Item Value Reference Range Interpretation Comments Eosinophils (test code = 5.0 See_Comment H [A utomated message] The Eosinophils) system which ge nerated this result tra nsmitted reference range : <=4.0. The reference r eric was not used to int erpret this result as normal/abnormal . [facility]iscoZzggwyhWCNUJYIBSH6514-53-44 17:00:00 Test Item Value Reference Range Interpretation Comments Monocytes (test code = Monocytes) 6.3 2.0-12.0 N [facility]iscoSatacbiRTWQVKAIQP9532-02-12 17:00:00 Test Item Value Reference Range Interpretation Comments Segs (test code = Segs) 47.0 45.0-75.0 N [facility]iscoYqgayseTUVEZLYKLJ6897-48-87 17:00:00 Test Item Value Reference Range Interpretation Comments Lymphocytes (test code = Lymphocytes) 41.2 20.0-40.0 H [facility]iscoSdatippCDYRJDPEGJ0571-03-17 17:00:00 Test Item Value Reference Range Interpretation Comments Platelet (test code = Platelet) 191 133-450 N [facility]iscoNmswxaaGKMXUYGVYQ8296-62-40 17:00:00 Test Item Value Reference Range Interpretation Comments RDW (test code = RDW) 13.9 11.5-14.5 N [facility]iscoYcpswtjWUNHEWPCFR0313-95-21 17:00:00 Test Item Value Reference Range Interpretation Comments MCHC (test code = MCHC) 33.2 32.0-36.0 N [facility]iscoToygxkcNWSNGQQMKO1518-77-10 17:00:00 Test Item Value Reference Range Interpretation Comments MPV (test code = MPV) 8.4 7.4-10.4 N [facility]iscoOnoldlrDGURNSCUOG5402-23-36 17:00:00 Test Item Value Reference Range Interpretation Comments MCH (test code = MCH) 27.7 pg 27.0-31.0 N [facility]iscoZhbuyofFQEMMPTCMN3281-22-88 17:00:00 Test Item Value Reference Range Interpretation Comments WBC (test code = WBC) 7.8 3.7-10.4 N [facility]iscoTcfloapYKLCLESLKK7409-61-70 17:00:00 Test Item Value Reference Range Interpretation Comments MCV (test code = MCV) 83.6 81.0-99.0 N [facility]iscoAwakjunIQLRZDQAZD0185-44-40 17:00:00 Test Item Value Reference Range Interpretation Comments Hct (test code = Hct) 30.5 36.0-48.0 L [facility]iscoNxovbbyMNVDQHSSGA7609-95-70 17:00:00 Test Item Value Reference Range Interpretation Comments Hgb (test code = Hgb) 10.1 12.0-16.0 L [facility]iscoYtqdkqnTRUSNIHQNS6399-24-43 17:00:00 Test Item Value Reference Range Interpretation Comments RBC (test code = RBC) 3.65 4.20-5.40 L [facility] PQOTFFE9020-78-94 19:00:00 Test Item Value Reference Range Interpretation Comments ABO/Rh (test code = ABO/Rh) A POS [facility] [employer] IOCDQPX6531-06-50 19:00:00 Test Item Value Reference Range Interpretation Comments Antibody Scrn (test Negative (05/31/2012 N code = Antibody Scrn) 14:00:00) [facility] [employer] DFOBADY8242-32-23 19:00:00 Test Item Value Reference Range Interpretation Comments ABO/Rh (test code = ABO/Rh) A POS [facility] [employer] XHGAURI0243-30-08 19:00:00 Test Item Value Reference Range Interpretation Comments Antibody Scrn (test Negative (05/31/2012 N code = Antibody Scrn) 14:00:00) [facility] [employer] SGINQEB1242-54-00 19:00:00 Test Item Value Reference Range Interpretation Comments ABO/Rh (test code = ABO/Rh) A POS [facility] [employer] MVCYKTK1128-60-42 19:00:00 Test Item Value Reference Range Interpretation Comments Antibody Scrn (test Negative (05/31/2012 N code = Antibody Scrn) 14:00:00) [facility] DiidzddDHJVTAPML1902-18-15 18:50:00 Test Item Value Reference Range Interpretation Comments AST (test code = AST) 14 See_Comment N [Auto mated message] The system which ge nerated this result transmit thelma reference range : <=37. The reference range was not used to interpr et this result as zana l/abnormal. [facility] ReklswgGIRAWGHRT6394-21-10 18:50:00 Test Item Value Reference Range Interpretation Comments AGAP (test code = AGAP) 10.1 10.0-20.0 N [facility] CwysmvtAPTVUNXLM5446-13-24 18:50:00 Test Item Value Reference Range Interpretation Comments Glucose Lvl (test code = Glucose Lvl) 208 70-99 H [facility] UhsetedHIRNIHTHS8057-70-67 18:50:00 Test Item Value Reference Range Interpretation Comments BUN (test code = BUN) 17 7-22 N [facility] IhfpltdQJKHMNIMW9127-49-42 18:50:00 Test Item Value Reference Range Interpretation Comments Chloride Lvl (test code = Chloride Lvl) 102 95-109 N [facility] EensghoMFMQEWWKQ2917-36-77 18:50:00 Test Item Value Reference Range Interpretation Comments Potassium Lvl (test code = Potassium 4.1 3.5-5.1 N Lvl) [facility] CenterImrarxaYMLQWRKJD3842-34-19 18:50:00 Test Item Value Reference Range Interpretation Comments Creatinine Lvl (test code = Creatinine 0.9 0.5-1.4 N Lvl) [facility] CenterTufcjozTMPUDLDUQ9914-88-04 18:50:00 Test Item Value Reference Range Interpretation Comments Sodium Lvl (test code = Sodium Lvl) 137 135-145 N [facility] CenterKxyyrnmVYOKIBLIF9471-06-63 18:50:00 Test Item Value Reference Range Interpretation Comments Calcium Lvl (test code = Calcium Lvl) 9.1 8.5-10.5 N [facility] CenterGztwmigUWXMZKBAG0396-94-02 18:50:00 Test Item Value Reference Range Interpretation Comments CO2 (test code = CO2) 29 24-32 N [facility]iscoCpniiyhKAFHZJQGRU6162-27-24 18:50:00 Test Item Value Reference Range Interpretation Comments PTT (test code = PTT) 30.9 s 22.9-35.8 N [facility]iscoXuuhilySZEMBSJFAH6750-80-37 18:50:00 Test Item Value Reference Range Interpretation Comments PT (test code = PT) 13.0 s 12.0-14.7 N [facility]iscoMihjjcgWOSDQLOKGK6549-22-06 18:50:00 Test Item Value Reference Range Interpretation Comments INR (test code = INR) 0.96 0.85-1.17 N [facility] CenterIngemnsXGVKRUMEE7761-98-09 18:50:00 Test Item Value Reference Range Interpretation Comments AST (test code = AST) 14 See_Comment N [Auto mated message] The system which ge nerated this result transmit thelma reference range : <=37. The reference range was not used to interpr et this result as zana l/abnormal. [facility] CenterMsywwyvQMMBFWWLG7726-46-82 18:50:00 Test Item Value Reference Range Interpretation Comments AGAP (test code = AGAP) 10.1 10.0-20.0 N [facility] CenterIlgwluwUXHILWTPZ9274-97-40 18:50:00 Test Item Value Reference Range Interpretation Comments Glucose Lvl (test code = Glucose Lvl) 208 70-99 H [facility] CenterWwenexqKCHEKSHXX0123-34-39 18:50:00 Test Item Value Reference Range Interpretation Comments BUN (test code = BUN) 17 7-22 N [facility] CenterKrmqaqkOBQRPEDMF9939-00-47 18:50:00 Test Item Value Reference Range Interpretation Comments Chloride Lvl (test code = Chloride Lvl) 102 95-109 N [facility] CenterOkarzutKXLRSYEOY4779-45-99 18:50:00 Test Item Value Reference Range Interpretation Comments Potassium Lvl (test code = Potassium 4.1 3.5-5.1 N Lvl) [facility] CenterYahouonGRKTWQPYS5187-71-90 18:50:00 Test Item Value Reference Range Interpretation Comments Creatinine Lvl (test code = Creatinine 0.9 0.5-1.4 N Lvl) [facility] CenterWbbkomiIWKAGWMJL4457-57-49 18:50:00 Test Item Value Reference Range Interpretation Comments Sodium Lvl (test code = Sodium Lvl) 137 135-145 N [facility] CenterDgbbodkLNRPKCNVR6876-52-53 18:50:00 Test Item Value Reference Range Interpretation Comments Calcium Lvl (test code = Calcium Lvl) 9.1 8.5-10.5 N [facility] CenterJmcsxjaVISCJAICI2238-63-84 18:50:00 Test Item Value Reference Range Interpretation Comments CO2 (test code = CO2) 29 24-32 N [facility]iscoGpptifxLGNTQYJGDD1208-93-62 18:50:00 Test Item Value Reference Range Interpretation Comments PTT (test code = PTT) 30.9 s 22.9-35.8 N [facility]iscoCsqzdmcKAEIWJWELU0253-36-83 18:50:00 Test Item Value Reference Range Interpretation Comments PT (test code = PT) 13.0 s 12.0-14.7 N [facility]iscoQymxtgeUWFCLQIHHC0759-41-69 18:50:00 Test Item Value Reference Range Interpretation Comments INR (test code = INR) 0.96 0.85-1.17 N [facility] CenterCgfsaepVMJOBBFAV4394-38-79 18:50:00 Test Item Value Reference Range Interpretation Comments AST (test code = AST) 14 See_Comment N [Auto mated message] The system which ge nerated this result transmit thelma reference range : <=37. The reference range was not used to interpr et this result as zana l/abnormal. [facility] CenterRwrrxooEYHJSHUHZ3156-99-13 18:50:00 Test Item Value Reference Range Interpretation Comments AGAP (test code = AGAP) 10.1 10.0-20.0 N [facility] CenterAbnevjpSGHEGTPXA4289-66-19 18:50:00 Test Item Value Reference Range Interpretation Comments Glucose Lvl (test code = Glucose Lvl) 208 70-99 H [facility] CenterQoycqabFOLBLAKLA5257-01-80 18:50:00 Test Item Value Reference Range Interpretation Comments BUN (test code = BUN) 17 7-22 N [facility] CenterPwtjghfJZGLSIKPI1373-82-60 18:50:00 Test Item Value Reference Range Interpretation Comments Chloride Lvl (test code = Chloride Lvl) 102 95-109 N [facility] CenterCckipexNVXYPSTBO0842-57-21 18:50:00 Test Item Value Reference Range Interpretation Comments Potassium Lvl (test code = Potassium 4.1 3.5-5.1 N Lvl) [facility] CenterImvupfkZIHIVDLIS2607-15-78 18:50:00 Test Item Value Reference Range Interpretation Comments Creatinine Lvl (test code = Creatinine 0.9 0.5-1.4 N Lvl) [id number] 18:50:00 Test Item Value Reference Range Interpretation Comments Sodium Lvl (test code = Sodium Lvl) 137 135-145 N [id number] 18:50:00 Test Item Value Reference Range Interpretation Comments Calcium Lvl (test code = Calcium Lvl) 9.1 8.5-10.5 N [facility] [id number] 18:50:00 Test Item Value Reference Range Interpretation Comments CO2 (test code = CO2) 29 24-32 [id number] 18:50:00 Test Item Value Reference Range Interpretation Comments PTT (test code = PTT) 30.9 s 22.9-35.8 N [id number] 18:50:00 Test Item Value Reference Range Interpretation Comments PT (test code = PT) 13.0 s 12.0-14.7 N [id number] 18:50:00 Test Item Value Reference Range Interpretation Comments INR (test code = INR) 0.96 0.85-1.17 N [facility]
[2023-01-13] MEDS ORDERED: TRANEXAMIC ACID 1,000 MG/10 ML VIAL IV ONE (17:30)
[2023-01-13] MEDS ORDERED: OXYMETAZOLINE HCL 0.05% 15ML NAS ONE (17:30)
[2023-01-13] MEDS ORDERED: NA CHLORIDE 0.9% 500 ML ONE (17:48)
[2023-01-13 17:53] LABS: Absolute Lymphocytes (CBC) 1.9 K/uL (0.7-4.9); Hematocrit 32.7 % (36.0-45.0); Lymphocytes % 19.4 % (15.3-44.8); MCV 85.5 fL (80-100); MPV 8.8 fL (7.6-11.3); RBC Red Blood Cell Count 3.83 M/uL (3.86-4.86)
--- NOTE | 2023-01-13 18:00 | RAD REPORT ---
EXAM DESCRIPTION: RAD - Chest Single View - 01/13/2023 5:53 pm CLINICAL HISTORY: CONGESTION COMPARISON: <Comparisons> FINDINGS: Lines: None. Lungs: No evidence of edema or pneumonia. Right midlung scarring. Pleural: No significant pleural effusions or pneumothorax. Cardiac: The heart size is within normal limits. Mediastinum: Within normal limits. Bones: No acute fractures. Fusion hardware in the lumbar spine. Other: None IMPRESSION: No acute cardiopulmonary disease.
[2023-01-13 18:08] LABS: Albumin 3.5 g/dL (3.4-5.0); Bilirubin Total 0.6 mg/dL (0.2-1.0)
[2023-01-13] MEDS ORDERED: SILVER NITRATE 1 APPL TOP ONE (19:41)
--- NOTE | 2023-01-13 19:44 | EDPHYS ---
Physician Documentation [facility] Name: Mariah Canales Age: 77 yrs Sex: Female : 1945 Arrival Date: 01/13/2023 Time: 16:58 Bed 6 Private MD: ED Physician Iván Pickard HPI: 01/13 17:19 This 77 yrs old Female presents to ER via EMS with complaints of Cough - bs3 COUGH UP BLOOD. 17:19 77-year-old female history of CVA on Plavix, history of COPD presents with a nosebleed bs3 and coughing up blood she notes that she had a nosebleed from her left nose and then felt a trickling down the back of her throat and then started to cough up some blood, she denies sob, nausea or vomiting. No fever or chills. She is not on ac. Historical: - PMHx: 17:10 Chronic obstructive lung disease; diabetes mellitus; Hypertensive disorder; kidney db failure; Parkinson's disease; stroke in 2014; - PSHx: 17:10 caroditectomy x 2 left; db - Immunization history:: Adult Immunizations unknown. - Social history:: Smoking status: Patient denies any tobacco usage or history of. ROS: 17:24 Constitutional: Negative for fever, chills bs3 17:24 All other systems are negative. Exam: 17:24 Constitutional: This is a well developed, well nourished patient who is awake, alert, bs3 and in no acute distress. Head/Face: Normocephalic, atraumatic. Eyes: Pupils equal round and reactive to light, extra-ocular motions intact. Lids and lashes normal. ENT: left nare with moderate bright red blood, oozing Neck: Trachea midline, no thyromegaly, no neck stiffness Chest/axilla: Normal chest wall appearance and motion. Nontender with no deformity. No lesions are appreciated. Cardiovascular: Regular rate and rhythm with a normal S1 and S2. symmetric pulses in upper extremities Respiratory: Lungs have equal breath sounds bilaterally, clear to auscultation, no respiratory distress Abdomen/GI: Soft, non-tender, no rebound or guarding MS/ Extremity: Pulses equal, no cyanosis. Neurovascular intact. Full, normal range of motion. Neuro: Awake and alert, GCS 15, oriented to person, place, time, and situation. Cranial nerves II-XII grossly intact. Motor strength 5/5 in all extremities. Sensory grossly intact. Psych: Awake, alert, with orientation to person, place and time. Behavior, mood, and affect are within normal limits. 18:13 Sinus tachycardia at [address] elevations or depressions QTc 438 as interpreted by bs3 myself Vital Signs: 16:50 BP 96 / 74; Pulse 89; Resp 18; Temp 99.4(O); Pulse Ox 97% on R/A; db 17:25 BP 133 / 69; Pulse 91; Resp 18; Pulse Ox 96% on R/A; db 18:30 BP 114 / 76; Pulse 84; Resp 16; Pulse Ox 98% on R/A; db 19:19 BP 128 / 80; Pulse 81; Resp 16; Pulse Ox 97% on R/A; jb4 20:13 BP 151 / 77; Pulse 87; Resp 16; Pulse Ox 97% on R/A; jb4 Procedures: 18:03 Epistaxis treatment: A small amount of bleeding noted from left nare. Treated using bs3 Oxymetazoline sprays, direct pressure, anterior packing, nasal tampon, Bleeding decreased. 19:41 Epistaxis treatment: After direct pressure bleeding had resolved, I visualized the area bs3 of bleeding and used silver nitrite to the wound, will dc home. . MDM: 17:24 Differential Diagnosis: Other likely epistaxis with secondary irritation after bs3 aspirating blood, possibly coughing after swallowing it, merocel placed with improving of bleeding, will observe. Data reviewed: vital signs, nurses notes. 18:22 ED course: Labs negative for acute pathology patient had improvement in bleeding, on bs3 reassessment, pt had a bright red area in left mcdonald along septum, will attempt cautery. 19:20 ED course: pt observed at length, no recurrent bleeding. will dc home. bs3 19:41 ED course: no anemia, observed at length, no bleeding, no cough any more. bs3 19:43 Patient medically screened. bs3 01/13 17:03 Order name: CBC with Diff; Complete Time: 18:02 bs3 05 17:03 Order name: Comprehensive Metabolic Panel; Complete Time: 18:12 bs3 05 17:05 Order name: PT-INR; Complete Time: 18:02 bs3 01/13 17:05 Order name: Type And Screen; Complete Time: 18:48 bs3 01/13 17:03 Order name: XRAY Chest (1 view); Complete Time: 18:02 bs3 01/13 17:03 Order name: EKG - Nurse/Tech; Complete Time: 17:59 bs3 Administered Medications: 17:30 Drug: NS 0.9% IV 500 ml Route: IV; Rate: bolus; Site: left wrist; db 17:33 Drug: Tranexamic Acid 1000 mg {Note: given to provider.} Route: Inhalation; db 17:33 Drug: Oxymetazoline Intranasal Drops (0.05 %) 1 sprays {Note: given to provider.} db Route: Intranasal; Site: both nares; 19:50 Drug: Silver Nitrate Applicators Topical 1 application {Note: Left nostril.} Route: jb4 Topical; Site: wound; Disposition Summary: 01/13/23 19:43 Discharge Ordered Location: Home bs3 Problem: new bs3 Symptoms: are resolved bs3 Condition: Stable bs3 Diagnosis - Epistaxis bs3 Followup: bs3 - With: Private Physician - When: 48 Hours - Reason: Re-evaluation by your physician Discharge Instructions: - Discharge Summary Sheet bs3 - Nosebleed, Adult, Cqsi-oh-Nbeh bs3 Forms: - SBAR form jb4 - Medication Reconciliation Form bs3 - Thank You Letter bs3 - Antibiotic Education bs3 - Prescription Opioid Use bs3 Signatures: Dispatcher [employer] Tyshawn Engel RN RN jb4 Iván Pickard MD MD bs3 Anila Farmer RN RN Lisa Poe PA-C PA-C sb4 Corrections: (The following items were deleted from the chart) 17:27 17:19 77-year-old female. bs3 bs3
--- NOTE | 2023-01-13 19:44 | ER ---
Nurse's Notes [facility] Name: Mariah Canales Age: 77 yrs Sex: Female : 1945 Arrival Date: 01/13/2023 Time: 16:58 Bed 6 Private MD: Diagnosis: Epistaxis Presentation: 01/13 16:50 Chief complaint: EMS states: patient STARTED COUGHING UP BLOOD TODAY WITH LARGE BLOOD db CLOTS. PATIENT STATES felt like something was in her throat and then started coughing up blood clots. Coronavirus screen: Vaccine status: Patient reports receiving the 2nd dose of the covid vaccine. Client denies travel out of the [place] in the last 14 days. At this time, the client does not indicate any symptoms associated with coronavirus-19. Ebola Screen: Patient negative for fever greater than or equal to 101.5 degrees Fahrenheit, and additional compatible Ebola Virus Disease symptoms Patient denies exposure to infectious person. Patient denies travel to an Ebola-affected area in the 21 days before illness onset. No symptoms or risks identified at this time. Initial Sepsis Screen: Does the patient meet any 2 criteria? No. Patient's initial sepsis screen is negative. Does the patient have a suspected source of infection? No. Patient's initial sepsis screen is negative. Risk Assessment: Do you want to hurt yourself or someone else? Patient reports no desire to harm self or others. Onset of symptoms was January 13, 2023. 16:50 Method Of Arrival: EMS: [facility] db 16:50 Acuity: AASHISH 2 db Triage Assessment: 23:26 General: Appears in no apparent distress. comfortable, Behavior is calm, cooperative. lg3 Historical: - PMHx: 17:10 Chronic obstructive lung disease; diabetes mellitus; Hypertensive disorder; kidney db failure; Parkinson's disease; stroke in 2015; - PSHx: 17:10 caroditectomy x 2 left; db - Immunization history:: Adult Immunizations unknown. - Social history:: Smoking status: Patient denies any tobacco usage or history of. Screenin:30 [facility] ED Fall Risk Assessment (Adult) History of falling in the last 3 months, db including since admission No falls in past 3 months (0 pts) Confusion or Disorientation No (0 pts) Intoxicated or Sedated No (0 pts) Impaired Gait Yes (1 pt) Mobility Assist Device Used Yes (1 pt) Altered Elimination No (0 pt) Score/Fall Risk Level 0 - 2 = Low Risk Oriented to surroundings, Educated pt \T\ family on fall prevention, incl call for assistance when getting out of bed. Abuse screen: Denies threats or abuse. Denies injuries from another. Nutritional screening: No deficits noted. Tuberculosis screening: No symptoms or risk factors identified. Assessment: 17:11 Reassessment: Patient appears in no apparent distress at this time. patient coughed up db large clot. gum ball size clot. 18:00 Reassessment: Patient appears in no apparent distress at this time. Patient and/or db family updated on plan of care and expected duration. Pain level reassessed. Patient is alert, oriented x 3, equal unlabored respirations, skin warm/dry/pink. pressure on patients nose to stop bleeding Patient denies pain at this time. 18:30 Reassessment: pressure removed. silvadene faxed to pharmacy. Small trickle of bleeding. db Pain: Denies pain. 19:18 Reassessment: Patient appears in no apparent distress at this time. Patient and/or jb4 family updated on plan of care and expected duration. Pain level reassessed. Patient is alert, oriented x 3, equal unlabored respirations, skin warm/dry/pink. 21:30 Reassessment: Patient appears in no apparent distress at this time. Patient and/or jb4 family updated on plan of care and expected duration. Pain level reassessed. Patient is alert, oriented x 3, equal unlabored respirations, skin warm/dry/pink. Attempted to call report , no answer on hold for 10 minutes will call back. Vital Signs: 16:50 BP 96 / 74; Pulse 89; Resp 18; Temp 99.4(O); Pulse Ox 97% on R/A; db 17:25 BP 133 / 69; Pulse 91; Resp 18; Pulse Ox 96% on R/A; db 18:30 BP 114 / 76; Pulse 84; Resp 16; Pulse Ox 98% on R/A; db 19:19 BP 128 / 80; Pulse 81; Resp 16; Pulse Ox 97% on R/A; jb4 20:13 BP 151 / 77; Pulse 87; Resp 16; Pulse Ox 97% on R/A; jb4 ED Course: 16:50 Arm band placed on Patient placed in an exam room. db 17:01 Patient arrived in ED. bd 17:02 Iván Pickard MD is Attending Physician. bs3 17:10 Triage completed. db 17:11 Maintain EMS IV. Dressing intact. Site clean \T\ dry. Gauge \T\ site: 20 G left wrist. db 17:16 Anila Farmer, RN is Primary Nurse. db 17:54 XRAY Chest (1 view) In Process Unspecified. EDMS 18:30 Patient has correct armband on for positive identification. Bed in low position. Side db rails up X2. Pulse ox on. NIBP on. 23:27 IV discontinued, intact, bleeding controlled, No redness/swelling at site. Pressure lg3 dressing applied. Administered Medications: 17:30 Drug: NS 0.9% IV 500 ml Route: IV; Rate: bolus; Site: left wrist; db 17:33 Drug: Tranexamic Acid 1000 mg {Note: given to provider.} Route: Inhalation; db 17:33 Drug: Oxymetazoline Intranasal Drops (0.05 %) 1 sprays {Note: given to provider.} db Route: Intranasal; Site: both nares; 19:50 Drug: Silver Nitrate Applicators Topical 1 application {Note: Left nostril.} Route: jb4 Topical; Site: wound; Medication: 23:27 VIS not applicable for this client. lg3 Outcome: 19:43 Discharge ordered by . bs3 23:26 Discharged to custodial. lg3 23:26 Condition: stable 23:26 Discharge instructions given to patient, custodial, Instructed on discharge instructions, follow up and referral plans. Demonstrated understanding of instructions, follow-up care. 23:27 Patient left the ED. lg3 Signatures: Dispatcher [employer] EDMS Fadia Napier Tyshawn Hernandez RN RN jb4 Annia Nunes RN RN lg3 Iván Pickard MD MD bs3 Anila Farmer, RN RN db Corrections: (The following items were deleted from the chart) 17:20 16:50 BP 96 / 74; Pulse 111bpm; Resp 18bpm; Pulse Ox 97% RA; Temp 99.4F Oral; db db
[2023-01-13 23:56] VITALS: O2SAT 97
[2023-01-13 23:58] VITALS: BP 151/77
--- NOTE | 2023-01-14 14:07 | EKG ---
Test Date: 2023-01-13 Test Time: 17:54:52 Blacking Wheel Tender: SUSANA MEASUREMENT RESULTS: Intervals: Rate: 101 MT: 152 QRSD: 66 QT: 338 QTc: 438 [place]: P: 59 MT: 152 QRS: 22 T: 79 INTERPRETIVE STATEMENTS: Sinus tachycardia Anteroseptal infarct, age undetermined Abnormal ECG Compared to ECG 11/28/2022 08:20:31 Sinus rhythm no longer present Myocardial infarct finding still present Electronically Signed On 01-14-23 14:06:22 CDT by Dillan Haas
== END 2023-01-13 23:27 | disposition home or self-care (01) ==
LOC: ER 16:58
DX: R04.0 Epistaxis (principal); J44.9 Chronic obstructive pulmonary disease, unspecified; G20 Parkinson's disease
CPT/HCPCS: 30901 ×2; 93005; 85025; 36415; 86900; 86850; 85610; 86901; 80053; 71045; 99285; J7040

== ENCOUNTER 2023-02-12 13:55 | Inpatient (IN) | payer OTHER ==
--- OUTSIDE RECORDS SUMMARY | 2023-02-12 14:24 | XMS REPORT | Continuity of Care Document ---
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 03:00: SEROquel) Dextrose 2019-0 No 12.5 gm, Memor ia 50% Syringe 2-07 25 mL, l (D50W) 20:56: Route: Hanna 00 IVP, Drug Form: INJ, Dosing Weight 45.045, kg, PRN, PRN Blood Glucose Results, Start date: 10/21/19 14:56:00 MOLD MAKER HELPER, Duration: 30 day, Stop date: 11/20/19 15:55:00 CDT, 0 Glucagon 2020-0 No 1 mg, Memoria 2-07 Route: IM, l 20:56: Drug form: Hanna 00 PDR/INJ, PRN, Dosing Weight 45.045, kg, PRN Blood Glucose Results, Start date: 10/21/19 14:56:00 MOLD MAKER HELPER, Duration: 30 day, Stop date: 11/20/19 15:55:00 [...] 2- 25 mL, l (D50W) 20:56: Route: Hanna 00 IVP, Drug Form: INJ, Dosing Weight 45.045, kg, PRN, PRN Blood Glucose Results, Start date: 10/21/19 14:56:00 MOLD MAKER HELPER, Duration: 30 day, Stop date: 11/20/19 15:55:00 CDT, 0 Glucagon 2020-0 No 1 mg, Memoria 2-07 Route: IM, l 20:56: Drug form: Jasbir 00 PDR/INJ, PRN, Dosing Weight 45.045, kg, PRN Blood Glucose Results, Start date: 10/21/19 14:56:00 MOLD MAKER HELPER, Duration: 30 day, Stop date: 11/20/19 15:55:00 CDT, 0 Insulin 2020-0 No Notes: Memoria Lispro 2-07 (Same as: l 20:56: Humalog) Roll in palms of hands gently; Do not shake vigorously . WASTE: F/P - Black; E - Municipal Trash Bin Stable for 28 days at room temperatur e. Expires in days from ____Date Dextrose 2019- No 12.5 gm, Memor ia 50% Syringe 2 25 mL, l (D50W) 20:56: Route: Hanna IVP, Drug Form: INJ, Dosing Weight 45.045, kg, PRN, PRN Blood Glucose Results, Start date: 10/21/19 14:56:00 MOLD MAKER HELPER, Duration: 30 day, Stop date: 11/20/19 15:55:00 CDT, 0 Glucagon No 1 mg, Memoria 2 Route: IM, l 20:56: Drug form: Jasbir 00 PDR/INJ, PRN, Dosing Weight 45.045, kg, PRN Blood Glucose Results, Start date: 10/21/19 14:56:00 MOLD MAKER HELPER, Duration: 30 day, Stop date: 11/20/19 15:55:00 [...] 2-07 (Same as: l 15:00: Mirapex) Sucralfate 2020-0 No Notes: January M emoria 2-07 interfere l 15:00: w/enteral Hanna 00 feeds - Take 1 hr before [...] l 15:00: Prinivil, Jasbir 00 Zestril) Trileptal 2019-0 No Notes: Memori a 2-07 Hazardous l 15:00: Drug Group 2:Non-anti neoplastic Hazardous Drug -- Refer to safe handling procedure PPE Matrix Do not crush or chew. (Same as: Trileptal) Mirapex 2019-0 No Notes: Memoria 2-07 (Same as: l 15:00: Mirapex) Pramipexole 2019-0 No Notes: Isaak lauren 2-07 (Same as: l 15:00: Mirapex) Sucralfate 2019-0 No Notes: January M emoria 2-07 interfere l 15:00: w/enteral Hanna 00 feeds - Take 1 hr before or 2 hr after antacids, dairy pdt, meals & minerals - On empty stomach. For patients unable to swallow tablet, dissolve in 10mL - 30mL of water or juice and stir before giving. (Same As: Carafate) Cogentin 2019-0 No Notes: Memoria 2-07 (Same As: l 15:00: Cogentin) Buspirone 2020-0 No Notes: Memori a 2-07 (Same As: l 15:00: BuSpar) Jasbir Lexapro 2019- No Notes: Memoria 2-07 (Same as: l 15:00: Lexapro) Hanna Prinivil No Notes: Memoria 2-07 (Same as: l 15:00: Prinivil, Hanna Zestril) Trileptal No Notes: Memori a 2-07 Hazardous l 15:00: Drug Group Jasbir 2:Non-anti neoplastic Hazardous Drug -- Refer to safe handling procedure PPE Matrix Do not crush or chew. (Same as: Trileptal) Mirapex No Notes: Memoria 2-07 (Same as: l 15:00: Mirapex) Jasbir 00 Pramipexole No Notes: Isaak lauren 2-07 (Same as: l 15:00: Mirapex) Sucralfate No Notes: May M emoria 2-07 interfere l 15:00: w/enteral Hanna 00 feeds - Take 1 hr before [...] kg, methicone) TID-Meals, Start date: 10/21/19 8:00:00 MOLD MAKER HELPER, Duration: 30 day, Stop date: 11/19/19 17:00:00 MOLD MAKER HELPER Al 2019- No Notes: Memoria hydroxide/M 2-07 (aluminum l g 14:00: hydroxide- Jasbir hydroxide/s 00 magnesium imethicone hyd-simeth icone 200-200-20 mg/5ml 30 ml ud GAIL) Xylocaine No Notes: Memori a Viscous 2% 2-07 (Same as: l mucous 14:00: Xylocaine) Estelle nn membrane 00 solution GI cocktail No 45 mL, Isaak lauren (aluminum 2-07 Route: PO, l hydroxide/m 14:00: Dosing Herm jose a agnesium 00 Weight hydroxide/l 45.045, idocaine/si kg, methicone) TID-Meals, Start date: 10/21/19 8:00:00 MOLD MAKER HELPER, Duration: 30 day, Stop date: 11/19/19 17:00:00 MOLD MAKER HELPER Al 2019-0 No Notes: Memoria hydroxide/M 2-07 (aluminum l [...] kg, methicone) TID-Meals, Start date: 10/21/19 8:00:00 MOLD MAKER HELPER, Duration: 30 day, Stop date: 11/19/19 17:00:00 MOLD MAKER HELPER Al 0 No Notes: Memoria hydroxide/M 2-07 (aluminum l g 14:00: hydroxide- Hanna hydroxide/s 00 magnesium imethicone hyd-simeth icone 200-200-20 mg/5ml 30 ml ud GAIL) Xylocaine 2019-0 No Notes: Memori a Viscous 2% 2-07 (Same as: l mucous 14:00: Xylocaine) Estelle nn membrane 00 solution Janumet 2020-0 Yes PO, BID, Memori a 2-07 DAUGHTER l 04:52: NOT SURE Hanna 00 OF THE DOSAGE, 0 Refill(s) Janumet 2020-0 Yes PO, BID, Memori a 2-07 DAUGHTER l 04:52: NOT SURE Hanna 00 OF THE DOSAGE, 0 Refill(s) Janumet 2020-0 Yes PO, BID, Memori a 2-07 DAUGHTER l 04:52: NOT SURE Hanna 00 OF THE DOSAGE, 0 Refill(s) Nicotine 2019-0 No Notes: Memoria 2-07 (Same as: l 02:24: Habitrol) Hanna 00 "Remove old patch before applicatio n [...] Memoria 2-07 (Same as: l 02:24: Habitrol) Hanna 00 "Remove old patch before applicatio n of new patch" WASTE: F/P - P Waste Black; E - P Waste Black Protonix 2020-0 No Notes: For Mem oria 2-07 IV push l 01:37: reconstitu Hanna 00 te with 10 ml 0.9% sodium chloride and push over 2 minutes. (Same as: Protonix) Labetalol 2019-0 No 170; hold Mem oria 2-07 for HR<65, l 01:37: 0 Hanna 00 NS 1,000 mL 2019-0 No 1,000 mL, M emoria 2-07 Rate: 40 l 01:37: ml/hr, Jasbir 00 Infuse over: 25 hr, Route: IV, Dosing Weight 45.455 kg, Total Volume: 1,000, Start date: 10/20/19 19:37:00 MOLD MAKER HELPER, Duration: 1 doses or times, Stop date: 10/21/19 20:36:00 MOLD MAKER HELPER, 1.4, m2, 0 Protonix 2019-0 No Notes: [...] Total Volume: 1,000, Start date: 10/20/19 19:37:00 MOLD MAKER HELPER, Duration: 1 doses or times, Stop date: 10/21/19 20:36:00 MOLD MAKER HELPER, 1.4, m2, 0 Protonix 2020-0 No Notes: For Mem oria 2-07 IV push l 01:37: reconstitu te with 10 ml 0.9% sodium chloride and push over 2 minutes. (Same as: Protonix) Labetalol 2020-0 No 170; hold Mem oria 2-07 for HR<65, l 01:37: 0 NS 1,000 mL 2020-0 No 1,000 mL, M emoria 2-07 Rate: 40 l 01:37: ml/hr, Infuse over: 25 hr, Route: IV, Dosing Weight 45.455 kg, Total Volume: 1,000, Start date: 10/20/19 19:37:00 MOLD MAKER HELPER, Duration: 1 doses or times, Stop date: 10/21/19 20:36:00 MOLD MAKER HELPER, 1.4, m2, 0 Dextrose 2020-0 No 12.5 gm, Memor ia 50% Syringe 2-07 25 mL, l (D50W) 01:36: Route: IVP, Drug Form: INJ, Dosing Weight 45.455, kg, PRN, PRN Blood Glucose Results, Start date: 10/20/19 19:36:00 MOLD MAKER HELPER, Duration: 30 day, Stop date: 11/19/19 19:35:00 MOLD MAKER HELPER, 0 Dextrose 2020-0 No 12.5 gm, Memor ia 50% Syringe 2-07 25 mL, l (D50W) 01:36: Route: IVP, Drug Form: INJ, Dosing Weight 45.455, kg, PRN, PRN Blood Glucose Results, Start date: 10/20/19 19:36:00 MOLD MAKER HELPER, Duration: 30 day, Stop date: 11/19/19 19:35:00 MOLD MAKER HELPER, 0 Glucagon 2020-0 No 1 mg, Memoria 2-07 Route: IM, l 01:36: Drug form: PDR/INJ, PRN, Dosing Weight 45.455, kg, PRN Blood Glucose Results, Start date: 10/20/19 19:36:00 MOLD MAKER HELPER, Duration: 30 day, Stop date: 11/19/19 19:35:00 MOLD MAKER HELPER, 0 Ondansetron 2020-0 No Notes: Isaak lauren 2-07 (Same as: l 01:36: Zofran) Hanna 00 MEDICATION WASTE Product Size: 4 mg Product Wasted: ___ mg Acetaminoph 2020-0 No Notes: Do Nidhi emoria en 10-21 not exceed l 01:36: 4 gm/day. Hanna 00 (Same as: Tylenol) Morphine 2020-0 No Notes: Memoria 10-21 (Same l 01:36: as:MORPhin Jasbir 00 e Sulfate) Nitroglycer 2019-0 No Notes: Isaak lauren in 10-21 (Same l 01:36: as:Nitroqu Hanna 00 ick, Nitrostat) "Do Not Crush" Sublingual tablet Glucagon 2019-0 No 1 mg, Memoria 10-21 Route: IM, l 01:36: Drug form: Jasbir 00 PDR/INJ, PRN, Dosing Weight 45.455, kg, PRN Blood Glucose Results, Start date: 10/20/19 19:36:00 MOLD MAKER HELPER, Duration: 30 day, Stop date: 11/19/19 19:35:00 MOLD MAKER HELPER, 0 Ondansetron 2019-0 No Notes: Isaak lauren 10-21 (Same as: l 01:36: Zofran) MEDICATION WASTE Product Size: 4 mg Product Wasted: ___ mg Acetaminoph 2020-0 No Notes: Do Nidhi emoria en 10-21 not exceed l 01:36: 4 gm/day. (Same as: Tylenol) Morphine 2020-0 No Notes: Memoria 10-21 (Same l 01:36: as:MORPhin Hanna 00 e Sulfate) Nitroglycer 2019-0 No Notes: Isaak lauren in 10-21 (Same l 01:36: as:Nitroqu Hanna 00 ick, Nitrostat) "Do Not Crush" Sublingual tablet Dextrose 2020-0 No 12.5 gm, Memor ia 50% Syringe 10-21 25 mL, l (D50W) 01:36: Route: Hanna 00 IVP, Drug Form: INJ, Dosing Weight 45.455, kg, PRN, PRN Blood Glucose Results, Start date: 10/20/19 19:36:00 MOLD MAKER HELPER, Duration: 30 day, Stop date: 11/19/19 19:35:00 MOLD MAKER HELPER, 0 Glucagon 2019-0 No 1 mg, Memoria 10-21 Route: IM, l 01:36: Drug form: Jasbir 00 PDR/INJ, PRN, Dosing Weight 45.455, kg, PRN Blood Glucose Results, Start date: 10/20/19 19:36:00 MOLD MAKER HELPER, Duration: 30 day, Stop date: 11/19/19 19:35:00 MOLD MAKER HELPER, 0 Ondansetron 2019-0 No Notes: Isaak lauren - (Same as: l 01:36: Zofran) Jasbir 00 MEDICATION WASTE Product Size: 4 mg Product Wasted: ___ mg Acetaminoph 2019-0 No Notes: Do M emoria en 10-21 not exceed l 01:36: 4 gm/day. Jasbir (Same as: Tylenol) Morphine 2019-0 No Notes: Memoria 10-21 (Same l 01:36: as:MORPhin Jasbir 00 e Sulfate) Nitroglycer 2019-0 No Notes: Isaak lauren in 10-21 (Same l 01:36: as:Nitroqu Hanna 00 ick, Nitrostat) "Do Not Crush" Sublingual [...] Notes: Memoria 2- (Same l 19:03: as:MORPhin Hanna 00 e Sulfate) Zofran 2020-0 No Notes: Memoria 2- (Same as: l 19:03: Zofran) Jasbir 00 MEDICATION WASTE Product Size: 4 mg Product Wasted: ___ mg Morphine 2020-0 No Notes: Memoria 2- (Same l 19:03: as:MORPhin Hanna 00 e Sulfate) Zofran 0 No Notes: Memoria 2-06 (Same as: l 19:03: Zofran) Jasbir 00 MEDICATION WASTE Product Size: 4 mg Product Wasted: ___ mg Morphine 2019-0 No Notes: Memoria 2-06 (Same l 19:03: as:MORPhin Hanna 00 e Sulfate) Zofran 0 No Notes: Memoria 2-06 (Same as: l 19:03: Zofran) 00 MEDICATION WASTE Product Size: 4 mg Product Wasted: ___ mg remove No Notes: Memoria patch - Remove old l 15:00: patch Jasbir 00 before applicatio n of new patch. WASTE: F/P - P Waste Black; E - P Waste Black remove No Notes: Memoria patch - Remove old l 15:00: patch Hanna 00 before applicatio n of new patch. [...] day, # 14 cap, 0 Refill(s), Pharmacy: [facility] #[id number] Azithromyci 2020-0 Yes 500 mg = 1 Memoria n 500 MG 1-22 tab, PO, l Oral Tablet 15:33: Daily, X 3 Jasbir [Zithromax] 00 day, # 3 tab, 0 Refill(s), Pharmacy: [facility] #[id number] benzonatate 2020-0 Yes 200 mg = 1 Memoria 200 MG Oral 1-22 cap, PO, l Capsule 15:33: TID, X 10 Estelle nn [Tessalon] 00 day, # 30 cap, 0 Refill(s), Pharmacy: [facility] #[id number] cefdinir 2020-0 Yes 300 mg = 1 Mem oria 300 MG Oral 1-22 cap, PO, l Capsule 15:33: Q12H, X 7 Estelle nn [Omnicef] 00 day, # 14 cap, 0 Refill(s), Pharmacy: [facility][id number] Azithromyci 2020-0 Yes 500 mg = 1 Memoria n 500 MG 1-22 tab, PO, l Oral Tablet 15:33: Daily, X 3 Hanna [Zithromax] 00 day, # 3 tab, 0 Refill(s), Pharmacy: [facility] #[id number] benzonatate 2020-0 Yes 200 mg = 1 Memoria 200 MG Oral 1-22 cap, PO, l Capsule 15:33: TID, X 10 Estelle nn [Tessalon] 00 day, # 30 cap, 0 Refill(s), Pharmacy: [facility] #[id number] cefdinir 2020-0 Yes 300 mg = 1 Mem oria 300 MG Oral 1-22 cap, PO, l Capsule 15:33: Q12H, X 7 Estelle nn [Omnicef] 00 day, # 14 cap, 0 Refill(s), Pharmacy: [facility] #[id number] Azithromyci 2020-0 Yes 500 mg = 1 Memoria n 500 MG 1-22 tab, PO, l Oral Tablet 15:33: Daily, X 3 Hanna [Zithromax] 00 day, # 3 tab, 0 Refill(s), Pharmacy: [facility] #[id number] benzonatate 2020-0 Yes 200 mg = 1 Memoria 200 MG Oral 1-22 cap, PO, l Capsule 15:33: TID, X 10 Estelle nn [Tessalon] 00 day, # 30 cap, 0 Refill(s), Pharmacy: [facility] #[id number] Potassium 2020-0 No Notes: Memori a Chloride [...] s with feeding tube less than 14 [place] (Dobhoff, J-tube etc) and pediatric and patients. Potassium 2020-0 No Notes: Memori a Chloride 1-22 (Same as: l 13:34: K-Dur 20) Hanna 00 "Do Not Crush" Give with food and full glass of water For patients unable to swallow tablet, dissolve in one half glass of water. Allow about 2 minutes for the tablets to disintegra te. Stir before giving to prepare slurry and administer . Please exclude Patient s with feeding tube less than 14 [place] (Dobhoff, J-tube etc) and pediatric and patients. Potassium 2020-0 No Notes: Memori a Chloride 1-22 (Same as: l 13:34: K-Dur 20) Hanna 00 "Do Not Crush" Give with food and full glass of water For patients unable to swallow tablet, dissolve in one half glass of water. Allow about 2 minutes for the tablets to disintegra te. Stir before giving to prepare slurry and administer . Please exclude Patient s with feeding tube less than 14 [place] (Dobhoff, J-tube etc) and pediatric and patients. Zocor 2020-0 No Notes: Memoria 1-22 (Same as: l 03:00: Zocor) Jasbir 00 Chantix 2020-0 No 0.5 mg, 1 Memor ia 1-22 tab, l 03:00: Route: PO, Hanna 00 Drug form: TAB, Bedtime, Dosing Weight 45.455, kg, Start date: 10/04/19 21:00:00 MOLD MAKER HELPER, Duration: 30 day, Stop date: 11/02/19 21:00:00 MOLD MAKER HELPER Zocor 2020-0 No Notes: Memoria 1-22 (Same as: l 03:00: Zocor) Hanna 00 Chantix 2020-0 No 0.5 mg, 1 Memor ia 1-22 tab, l 03:00: Route: PO, Jasbir 00 Drug form: TAB, Bedtime, Dosing Weight 45.455, kg, Start date: 10/04/19 21:00:00 MOLD MAKER HELPER, Duration: 30 day, Stop date: 11/02/19 21:00:00 MOLD MAKER HELPER Zocor 2020-0 No Notes: Memoria 1-22 (Same as: l 03:00: Zocor) Jasbir Chantix 2020-0 No 0.5 mg, 1 Memor ia 1-22 tab, l 03:00: Route: PO, Hanna 00 Drug form: TAB, Bedtime, Dosing Weight 45.455, kg, Start date: 10/04/19 21:00:00 MOLD MAKER HELPER, Duration: 30 day, Stop date: 11/02/19 21:00:00 MOLD MAKER HELPER Rocephin + 2020-0 No Notes: Memor ia sterile 1-22 (Same As: l water 10 mL 00:00: Rocephin). Use with 100 mL NS and infuse over 30 min MEDICATION WASTE Product Size: 1000 mg Product Wasted: ___ mg Rocephin + 2020-0 No Notes: Memor ia sterile 1-22 (Same As: l water 10 mL 00:00: Rocephin). Use with 100 mL NS and infuse over 30 min MEDICATION WASTE Product Size: 1000 mg Product Wasted: ___ mg Rocephin + 2020-0 No Notes: Memor ia sterile 1-22 (Same As: l water 10 mL 00:00: Rocephin). Use with 100 mL NS and infuse over 30 min MEDICATION WASTE Product Size: 1000 mg Product Wasted: ___ mg Zithromax 2020-0 No Notes: Memori a 1-21 (Same As: l 17:00: Zithromax Hanna 00 IV) Zithromax 2020-0 No Notes: Memori a 1-21 (Same As: l 17:00: Zithromax Jasbir 00 IV) Zithromax 2020-0 No Notes: Memori a 1-21 (Same As: l 17:00: Zithromax Jasbir 00 IV) Cogentin 2020-0 No Notes: Memoria 1-21 (Same As: l 15:00: Cogentin) Buspirone 2020-0 No Notes: Memori a 1-21 (Same As: l 15:00: BuSpar) clopidogrel 2020-0 No Notes: Isaak lauren 1-21 (Same As: l 15:00: Plavix) Lexapro 2020-0 No Notes: Memoria 1-21 (Same as: l 15:00: Lexapro) Prinivil 2020-0 No Notes: Memoria 1-21 (Same as: l 15:00: Prinivil, Jasbir 00 Zestril) pantoprazol 2019-0 No Notes: Isaak lauren e 1-21 Tablet l 15:00: should not be chewed or crushed. (Same as: Protonix) Mirapex 0 No Notes: Memoria 1-21 (Same as: l 15:00: Mirapex) Pramipexole No 0.125 mg, M emoria - 1 tab, l 15:00: Route: PO, Drug form: TAB, Daily, Dosing Weight 45.455, kg, Start date: 10/04/19 9:00:00 MOLD MAKER HELPER, Duration: 30 day, Stop date: 11/02/19 9:00:00 MOLD MAKER HELPER Sucralfate No 1 gm, 1 Isaak lauren - tab, l 15:00: Route: PO, 00 Drug form: TAB, BID, Dosing Weight 45.455, kg, Start date: 10/04/19 9:00:00 MOLD MAKER HELPER, Duration: 30 day, Stop date: 11/02/19 17:00:00 MOLD MAKER HELPER Cogentin 2019-0 No Notes: Memoria 1-21 (Same As: l 15:00: Cogentin) Buspirone 0 No Notes: Memori a 1-21 (Same As: l 15:00: BuSpar) clopidogrel 2019-0 No Notes: Isaak lauren 1-21 (Same As: l 15:00: Plavix) Lexapro 2019-0 No Notes: Memoria 1-21 (Same as: l 15:00: Lexapro) Prinivil 2019-0 No Notes: Memoria 1-21 (Same as: l 15:00: Prinivil, Hanna 00 Zestril) pantoprazol 2019-0 No Notes: Isaak lauren e 1-21 Tablet l 15:00: should not be chewed or crushed. (Same as: Protonix) Mirapex 2019-0 No Notes: Memoria 1-21 (Same as: l 15:00: Mirapex) Pramipexole 0 No 0.125 mg, M emoria -21 1 tab, l 15:00: Route: PO, Drug form: TAB, Daily, Dosing Weight 45.455, kg, Start date: 10/04/19 9:00:00 MOLD MAKER HELPER, Duration: 30 day, Stop date: 11/02/19 9:00:00 MOLD MAKER HELPER Sucralfate 2020-0 No 1 gm, 1 Isaak lauren -21 tab, l 15:00: Route: PO, Drug form: TAB, BID, Dosing Weight 45.455, kg, Start date: 10/04/19 9:00:00 MOLD MAKER HELPER, Duration: 30 day, Stop date: 11/02/19 17:00:00 MOLD MAKER HELPER Cogentin 2019-0 No Notes: Memoria 1-21 (Same [...] pantoprazol 2019-0 No Notes: Isaak lauren e 1-21 Tablet l 15:00: should not be chewed or crushed. (Same as: Protonix) Mirapex 2019-0 No Notes: Memoria 1-21 (Same as: l 15:00: Mirapex) Pramipexole 2019-0 No 0.125 mg, M emoria -21 1 tab, l 15:00: Route: PO, Drug form: TAB, Daily, Dosing Weight 45.455, kg, Start date: 10/04/19 9:00:00 MOLD MAKER HELPER, Duration: 30 day, Stop date: 11/02/19 9:00:00 MOLD MAKER HELPER Sucralfate 2020-0 No 1 gm, 1 Isaak lauren 1-21 tab, l 15:00: Route: PO, Drug form: TAB, BID, Dosing Weight 45.455, kg, Start date: 10/04/19 9:00:00 MOLD MAKER HELPER, Duration: 30 day, Stop date: 11/02/19 17:00:00 MOLD MAKER HELPER Robitussin No Notes: Memor ia - (Same as: l 04:13: Robitussin ) Robitussin No Notes: Memor ia 10-04 (Same as: l 04:13: Robitussin ) Robitussin No Notes: Memor ia 10-04 (Same as: l 04:13: Robitussin ) Guaifenesin 0 No 10 ml, Isaak lauren 20 MG/ML / 10-04 Route: PO, l Phenylephri 03:58: Drug Form: Hanna ne 00 LIQ, Hydrochlori Dosing de 1 MG/ML Weight Oral 45.455, Solution kg, Q6H, PRN Cough/Ricky estion, Start date: 10/03/19 21:58:00 MOLD MAKER HELPER, Duration: 30 day, Stop date: 11/02/19 21:57:00 MOLD MAKER HELPER Guaifenesin No 10 ml, Isaak lauren 20 MG/ML / 10-04 Route: PO, l Phenylephri 03:58: Drug Form: Jasbir ne 00 LIQ, Hydrochlori Dosing de 1 MG/ML Weight Oral 45.455, Solution kg, Q6H, PRN Cough/Ricky estion, Start date: 10/03/19 21:58:00 MOLD MAKER HELPER, Duration: 30 day, Stop date: 11/02/19 21:57:00 MOLD MAKER HELPER Guaifenesin 0 No 10 ml, Isaak lauren 20 MG/ML / 10-04 Route: PO, l Phenylephri 03:58: Drug Form: Jasbir ne 00 LIQ, Hydrochlori Dosing de 1 MG/ML Weight Oral 45.455, Solution kg, Q6H, PRN Cough/Ricky estion, Start date: 10/03/19 21:58:00 MOLD MAKER HELPER, Duration: 30 day, Stop date: 11/02/19 21:57:00 MOLD MAKER HELPER Habitrol No Notes: Memoria 10-04 (Same as: l 03:31: Habitrol) Jasbir 00 "Remove old patch before applicatio n of new patch" WASTE: F/P - P Waste Black; E - P Waste Black Habitrol No Notes: Memoria 1-21 (Same as: l 03:31: Habitrol) "Remove old patch before applicatio n of new patch" WASTE: F/P - P Waste Black; E - P Waste Black Habitrol No Notes: Memoria 1-21 (Same as: l 03:31: Habitrol) "Remove old patch before applicatio n of new patch" WASTE: F/P - P Waste Black; E - P Waste Black Trileptal 0 No Notes: Do Mem oria 1- not crush l 03:27: or chew. (Same as: Trileptal) Trileptal No Notes: Do Mem oria 1-21 not crush l 03:27: or chew. (Same as: Trileptal) Trileptal No Notes: Do Mem oria 1-21 not crush l 03:27: or chew. (Same as: Trileptal) Seroquel 0 No Notes: Memoria 1-21 (Same as: l 03:00: SEROquel) Seroquel 0 No Notes: Memoria 1-21 (Same as: l 03:00: SEROquel) Seroquel 0 No Notes: Memoria 1-21 (Same as: l 03:00: SEROquel) Cogentin 2019-0 [...] l Oral Tablet 02:59: BID, # 120 Hanna [Trileptal] 00 tab, 0 Refill(s) lidocaine 2020-0 Yes TOP, TID, Mem oria 5% 3.5 gm -21 0 l top OIN 02:59: Refill(s) Estelle nn 00 Simvastatin 2020-0 Yes 40 mg = 1 M emoria 40 MG Oral 1-21 tab, PO, l Tablet 02:59: Bedtime, # Estlele nn [Zocor] 00 90 tab, 1 Refill(s) Escitalopra 2019-0 Yes 20 mg = 1 M emoria m 20 MG -21 tab, PO, l Oral Tablet 02:59: Daily, # He rmann [Lexapro] 00 30 tab, 0 Refill(s) Klonopin 2019-0 No 0.25 mg, Memor ia -21 PO, BID, 0 l 02:59: Refill(s) Hanna 00 quetiapine 2019-0 Yes 100 mg = [...] 0 Isaak lauren -21 Refill(s) l 02:59: Jasbir clopidogrel 2019-0 Yes 75 mg = 1 M emoria 75 mg oral -21 tab, PO, l tablet 02:59: Daily, # Jasbir 00 30 tab, 0 Refill(s) Cogentin 2020-0 Yes 0.5 mg, Memori a 1-21 PO, TID, 0 l 02:59: Refill(s) Hanna Prinivil 2019-0 Yes 2.5 mg, Memori a [...] Jasbir [Trileptal] 00 tab, 0 Refill(s) lidocaine 2020-0 Yes TOP, TID, Mem oria 5% 3.5 gm 21 0 l top OIN 02:59: Refill(s) Estelle [...] -21 PO, BID, 0 l 02:59: Refill(s) Hanna 00 quetiapine 2019-0 Yes 100 mg = [...] 0 Isaak lauren -21 Refill(s) l 02:59: Hanna clopidogrel 2019-0 Yes 75 mg = 1 M emoria 75 mg oral -21 tab, PO, l tablet 02:59: Daily, # Jasbir 00 30 tab, 0 Refill(s) Cogentin 2020-0 Yes 0.5 mg, Memori a 1-21 PO, TID, 0 l 02:59: Refill(s) Jasbir [...] l Oral Tablet 02:59: BID, # 120 Hanna [Trileptal] 00 tab, 0 Refill(s) lidocaine 2019-0 [...] l Oral Tablet 02:59: Daily, # He jerri [Lexapro] 00 30 tab, 0 Refill(s) Klonopin [...] 0 Isaak lauren -21 Refill(s) l 02:59: Hanna clopidogrel 2019-0 Yes 75 mg = 1 M emoria 75 mg oral -21 tab, PO, l tablet 02:59: Daily, # Jasbir 00 30 tab, 0 Refill(s) Lovenox 2020-0 No Notes: Memoria 1-21 (Same as: l 00:15: Lovenox) Hanna 00 Dextrose 2020-0 No 12.5 gm, Memor ia 50% Syringe -21 25 mL, l ([id number]) 00:15: Route: Hanna 00 IVP, Drug Form: INJ, Dosing Weight 45.455, kg, PRN, PRN Blood Glucose Results, Start date: 10/03/19 18:15:00 [employer], Duration: 30 day, Stop date: 11/02/19 18:14:00 [employer], 0 Glucagon 2020-0 No 1 mg, Memoria 10-04 Route: IM, l 00:15: Drug form: Jasbir 00 PDR/INJ, PRN, Dosing Weight 45.455, kg, PRN Blood Glucose Results, Start date: 10/03/19 18:15:00 [employer] HEL[employer], Duration: 30 day, Stop date: 11/02/19 18:14:00 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 WASTE: F/P - Black; E - Municipal Trash Bin Stable for 28 days at room temperatur e. Expires in days from ____Date Kayexalate 2019-0 No Notes: Memor ia -21 (sodium l 00:15: polystyren Jasbir 00 e sulfonate 15 gm/60 ml GAIL) Shake well before use. 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 WASTE: F/P - Black; E - Municipal Trash Bin Stable for 28 days at room temperatur e. Expires in days from ____Date Kayexalate 2020-0 No Notes: Memor ia - (sodium l 00:15: polystyren Hanna 00 e sulfonate 15 gm/60 ml GAIL) Shake well before use. (Same as: Kayexalate , SPS) Lovenox 2020-0 No Notes: Memoria - (Same as: l 00:15: Lovenox) Jasbir 00 Dextrose 2020-0 No 12.5 gm, Memor ia 50% Syringe - 25 mL, l (D50W) 00:15: Route: Hanna 00 IVP, Drug Form: INJ, Dosing Weight 45.455, kg, PRN, PRN Blood Glucose Results, Start date: 10/03/19 18:15:00 MOLD MAKER HELPER, Duration: 30 day, Stop date: 11/02/19 18:14:00 MOLD MAKER HELPER, 0 Glucagon 2020-0 No 1 mg, Memoria 10-04 Route: IM, l 00:15: Drug form: Jasbir 00 PDR/INJ, PRN, Dosing Weight 45.455, kg, PRN Blood Glucose Results, Start date: 10/03/19 18:15:00 MOLD MAKER HELPER, Duration: 30 day, Stop date: 11/02/19 18:14:00 MOLD MAKER HELPER, 0 Insulin 2020-0 No Notes: Memoria Lispro -21 (Same as: l 00:15: Humalog) Hanna 00 Roll in palms of hands gently; [...] Blood Glucose Results, Start date: 10/03/19 17:12:00 MOLD MAKER HELPER, Duration: 30 day, Stop date: 11/02/19 17:11:00 MOLD MAKER HELPER, 0 Glucagon 2020-0 No 1 mg, Memoria 20 Route: IM, l 23:12: Drug form: PDR/INJ, PRN, Dosing Weight 45.455, kg, PRN Blood Glucose Results, Start date: 10/03/19 17:12:00 MOLD MAKER HELPER, Duration: 30 day, Stop date: 11/02/19 17:11:00 MOLD MAKER HELPER, 0 Ondansetron 2019-0 No Notes: Isaak lauren [...] 1-20 25 mL, l (D50W) 23:12: Route: Hanna IVP, Drug Form: INJ, Dosing Weight 45.455, kg, PRN, PRN Blood Glucose Results, Start date: 10/03/19 17:12:00 MOLD MAKER HELPER, Duration: 30 day, Stop date: 11/02/19 17:11:00 MOLD MAKER HELPER, 0 Glucagon 2020-0 No 1 mg, Memoria -20 Route: IM, l 23:12: Drug form: Jasbir 00 PDR/INJ, PRN, Dosing Weight 45.455, kg, PRN Blood Glucose Results, Start date: 10/03/19 17:12:00 MOLD MAKER HELPER, Duration: 30 day, Stop date: 11/02/19 17:11:00 M[employer] MAKER HELPER, 0 Ondansetron 2020-0 No Notes: Isaak lauren 1-20 (Same as: l 23:12: Zofran) Jasbir MEDICATION WASTE Product Size: 4 mg Product Wasted: ___ mg Trazodone 2020-0 No Notes: Memori a 1-20 (Same As: l 23:12: Desyrel) Acetaminoph 2020-0 No Notes: Do M emoria en 10-03 not exceed l 23:12: 4 gm/day. (Same as: Tylenol) Dextrose 2020-0 No 12.5 gm, Memor ia 50% Syringe -20 25 mL, l (D50W) 23:12: Route: Jasbir 00 IVP, Drug Form: INJ, Dosing Weight 45.455, kg, PRN, PRN Blood Glucose Results, Start date: 10/03/19 17:12:00 [employer], Duration: 30 day, Stop date: 11/02/19 17:11:00 MOLD MAKER HELPER, 0 Glucagon 2020-0 No 1 mg, Memoria 10-03 Route: IM, l 23:12: Drug form: Jasbir PDR/INJ, PRN, Dosing Weight 45.455, kg, PRN Blood Glucose Results, Start date: 10/03/19 17:12:00 MOLD MAK[employer], Duration: 30 day, Stop date: 11/02/19 17:11:00 MOLD MAKER HELPER, 0 Ondansetron 2020-0 No Notes: Isaak lauren 1-20 (Same as: l 23:12: Zofran) Jasbir MEDICATION WASTE Product Size: 4 mg Product Wasted: ___ mg Trazodone 2020-0 No Notes: Memori a 1-20 (Same As: l 23:12: Desyrel) Acetaminoph 2020-0 No Notes: Do M emoria en -20 not exceed l 23:12: 4 gm/day. Jasbir 00 (Same as: Tylenol) D5LR 1,000 No 1,000 mL, Me moria mL 1-20 Rate: 75 l 23:11: ml/hr, Hanna 00 Infuse over: 13.3 hr, Route: IV, Dosing Weight 45.455 kg, Total Volume: 1,000, Start date: 10/03/19 17:11:00 M[employer] MAK[employer] HELPER, Duration: 30 day, Stop date: 11/02/19 17:10:00 M[employer] MAKER HELPER, 1.4, m2, 0 Promethazin 2019-0 No Notes: Do M emoria e -20 not give l 23:11: IV push. Hanna 00 (Same as: Phenergan) D5LR 1,000 No 1,000 mL, Me moria mL 10-03 Rate: 75 l 23:11: ml/hr, Jasbir 00 Infuse over: 13.3 hr, Route: IV, Dosing Weight 45.455 kg, Total Volume: 1,000, Start date: 10/03/19 17:11:00 MOLD MAKER HELPER, Duration: 30 day, Stop date: 11/02/19 17:10:00 MOLD MAKER HELPER, 1.4, m2, 0 Promethazin 2019-0 No Notes: Do M emoria e - not give l 23:11: IV push. Hanna 00 (Same as: Phenergan) D5LR 1,000 No 1,000 mL, Me moria mL 10-03 Rate: 75 l 23:11: ml/hr, Jasbir 00 Infuse over: 13.3 hr, Route: IV, Dosing Weight 45.455 kg, Total Volume: 1,000, Start date: 10/03/19 17:11:00 MOLD MAKER HELPER, Duration: 30 day, Stop date: 11/02/19 17:10:00 MOLD MAKER HELPER, 1.4, m2, 0 Promethazin 2020-0 No Notes: Do M emoria e 1-20 not give l 23:11: IV push. Hanna 00 (Same as: Phenergan) Ceftriaxone 2019-0 No Notes: Isaak lauren -20 (Same As: l 22:28: Rocephin). Hanna 00 Use with 100 mL NS and [...] 0.9% 1-20 Same as: l 19:59: BD Jasbir 00 Posiflush Sterile Calcium 2020-0 No 1,000 mL, Memor ia Chloride 1-20 2,000 l 0.0014 19:59: ml/hr, Hanna MEQ/ML / 00 Infuse Potassium Over: 0.5 Chloride hr, Route: 0.004 IV, 1,000, MEQ/ML / Drug form: Sodium INJ, ONCE, Chloride Priority: 0.103 STAT, MEQ/ML / Dosing Sodium Weight Lactate 45.455 kg, 0.028 Start MEQ/ML date: Injectable 10/03/19 Solution 13:59:00 M[employer]KER HELPER, Stop date: 10/03/19 13:59:00 MOLD MAKER HELPER, 0 Ondansetron 2019-0 No Notes: Isaak lauren 1-20 (Same as: l 19:59: Zofran) MEDICATION WASTE Product Size: 4 mg Product Wasted: ___ mg Saline 2019-0 No Notes: Memoria Flush 0.9% 1-20 Same as: l 19:59: BD Hanna 00 Posiflush Sterile Calcium 2020-0 No 1,000 mL, Memor ia Chloride 1-20 2,000 l 0.0014 19:59: ml/hr, Jasbir MEQ/ML / 00 Infuse Potassium Over: 0.5 Chloride hr, Route: 0.004 IV, 1,000, MEQ/ML / Drug form: Sodium INJ, ONCE, Chloride Priority: 0.103 STAT, MEQ/ML / Dosing Sodium Weight Lactate 45.455 kg, 0.028 Start MEQ/ML date: Injectable 10/03/19 Solution 13:59:00 MOLD MAKER HELPER, Stop date: 10/03/19 13:59:00 MOLD MAKER HELPER, 0 Ondansetron 2019-0 No Notes: Isaak lauren 1-20 (Same as: l 19:59: Zofran) Hanna 00 MEDICATION WASTE Product Size: 4 mg Product Wasted: ___ mg Saline No Notes: Memoria Flush 0.9% -20 Same as: l 19:59: BD Jasbir 00 Posiflush Sterile Calcium No 1,000 mL, Memor ia Chloride -20 2,000 l 0.0014 19:59: ml/hr, Hanna MEQ/ML / 00 Infuse Potassium Over: 0.5 Chloride hr, Route: 0.004 IV, 1,000, MEQ/ML / Drug form: Sodium INJ, ONCE, Chloride Priority: 0.103 STAT, MEQ/ML / Dosing Sodium Weight Lactate 45.455 kg, 0.028 Start MEQ/ML date: Injectable 10/03/19 Solution 13:59:00 MOLD MAKER HELPER, Stop date: 10/03/19 13:59:00 MOLD MAKER HELPER, 0 Ondansetron 0 No Notes: Isaak lauren 1-20 (Same as: l 19:59: Zofrmandeep) Jasbir 00 MEDICATION WASTE Product Size: 4 mg Product Wasted: ___ mg baclofen 5 2017-09 Yes 5 mg = 1 Mem oria mg oral 2-26 tab, PO, l tablet 05:08: TID, PRN Hanna 00 Muscle Spasms, # 15 tab, 0 Refill(s) baclofen 5 2017-09 Yes 5 mg = 1 Mem oria mg oral 2-26 tab, PO, l tablet 05:08: TID, PRN Hanna 00 Muscle Spasms, # 15 tab, 0 Refill(s) baclofen 5 2017-09 Yes 5 mg = 1 Mem oria mg oral 2-26 tab, PO, l tablet 05:08: TID, PRN Hanna 00 Muscle Spasms, # 15 tab, 0 [...] day, # 20 tab, 0 Refill(s) Dexamethaso 2017- No 4 mg, 1 Mem oria ne 2-26 mL, Route: l 03:14: IM, Drug Jasbir form: INJ, ONCE, Dosing Weight 45.455, kg, Priority: STAT, Start date: 09/07/18 21:14:00 M[employer] MAKER HELPER, Stop date: 09/07/18 21:14:00 MOLD MAKER HELPER Dexamethaso 2017- No 4 mg, 1 Mem oria ne 2-26 mL, Route: l 03:14: IM, Drug Jasbir 00 form: INJ, ONCE, Dosing Weight 45.455, kg, Priority: STAT, Start date: 09/07/18 21:14:00 MOLD MAKER HELPER, Stop date: 09/07/18 21:14:00 MOLD MAKER HELPER Dexamethaso 2017- No 4 mg, 1 Mem oria ne 2-26 mL, Route: l 03:14: IM, Drug Hanna 00 form: INJ, ONCE, Dosing Weight 45.455, kg, Priority: STAT, Start date: 09/07/18 21:14:00 MOLD MAKER HELPER, Stop date: 09/07/18 21:14:00 MOLD MAKER HELPER Tramadol 2017- No 50 kg, Memori a 2-26 Priority: l 03:00: STAT, Hanna Start date: 09/07/18 21:00:00 MOLD MAKER HELPER, Stop date: 09/07/18 21:00:00 MOLD MAKER HELPER Tramadol 2017- No 50 kg, Memori a 2-26 Priority: l 03:00: STAT, Jasbir Start date: 09/07/18 21:00:00 MOLD MAKER HELPER, Stop date: 09/07/18 21:00:00 MOLD MAKER HELPER Tramadol 2017- No 50 kg, Memori a 2-26 Priority: l 03:00: Jasbir ROBERT 00 Start date: 09/07/18 21:00:00 MOLD MAKER HELPER, Stop date: 09/07/18 21:00:00 MOLD MAKER HELPER glimepiride 2017-0 Yes 2mg QD Take 2 [...] 13:45: daily. [facility]ospita tablet 26 l traZODone 2016-0 Yes 150mg QD Take 150 Met hodi [...] thodi -acetaminop 9-[address] [facility] ([employer]) 13:45: mouth [facility]pi ta 7.5-325 mg 26 [...] thodi -acetaminop 9-[address] [facility] ([employer]) 13:45: mouth [facility]pi ta 7.5-325 mg 26 [...] Hospita enteric 26 l coated tablet glimepiride 2016-0 Yes 2mg QD Take 2 mg M [...] Take 1 mg M ethodi (XANAX) 1 06-[address] MG tablet 13:45: (four) Hospit a 26 times a l day. aspirin 2017-0 Yes 81mg QD Take 81 mg Meth brenna (ECOTRIN) 06-[address] 81 MG 13:45: daily. [facility]ospita enteric 26 l coated tablet clopidogrel 2016-0 Yes TK 1 T PO M ethodi (PLAVIX) 75 9- QD st mg tablet 00:00: Hospita 00 l clopidogrel 2016-0 Yes TK 1 T PO M ethodi (PLAVIX) 75 9- QD st mg tablet 00:00: Hospita 00 l clopidogrel 2016-0 Yes TK 1 T PO M ethodi (PLAVIX) 75 9- QD st mg tablet 00:00: Hospita 00 l clopidogrel 2016-0 Yes TK 1 T PO M ethodi (PLAVIX) 75 9-[address] mg tablet 00:00: Hospita 00 l clopidogrel 2016-0 Yes TK 1 T PO M ethodi (PLAVIX) 75 9-[address] mg tablet 00:00: Hospita 00 l lisinopril 2016-0 Yes TK 1 T PO Me thodi (PRINIVIL,Z 8-[address] ESTRIL) 2.5 00:00: Hospit a mg tablet 00 l SEPUMET 0 Yes TK 1 T PO Metho di 50-500 mg 8-[address] per tablet 00:00: Hospita 00 l lisinopril 2016-0 Yes TK 1 T PO Me thodi (PRINIVIL,Z 8-[address] ESTRIL) 2.5 00:00: Hospit a mg tablet 00 l SEPUMET 0 Yes TK 1 T PO Metho di 50-500 mg 8-[address] per tablet 00:00: Hospita 00 l lisinopril 2016-0 Yes TK 1 T PO Me thodi (PRINIVIL,Z 8-[address] ESTRIL) 2.5 00:00: Hospit a mg tablet 00 l SEPUMET 0 Yes TK 1 T PO Metho di 50-500 mg 8-[address] per tablet 00:00: Hospita 00 l lisinopril 2017-0 Yes TK 1 T PO Me thodi [...] WC st per tablet 00:00: Hospita l busPIRone Yes TK 1 T PO Met hodi (BUSPAR) 30 8-[address] MG tablet 00:00: Hospita l busPIRone Yes TK 1 T PO Met hodi (BUSPAR) 30 8-[address] MG tablet 00:00: Hospita l busPIRone Yes TK 1 T PO Met hodi (BUSPAR) 30 8-[address] MG tablet 00:00: Hospita l busPIRone Yes TK 1 T PO Met hodi (BUSPAR) 30 8-[address] MG tablet 00:00: Hospita l busPIRone Yes TK 1 T PO [...] times, Stop date: 12/10/16 4:23:00 CDT Sodium No 500 mL, Memoria Chloride 3-29 500 ml/hr, l 0.154 09:23: Infuse Hanna MEQ/ML 00 Over: 1 Injectable hr, Route: Solution IV, 500, Drug form: INJ, ONCE, Priority: STAT, Dosing Weight 59.091 kg, Start date: 12/10/16 4:23:00 CDT, Duration: 1 doses or times, Stop date: 12/10/16 4:23:00 CDT Sodium No 500 mL, Memoria Chloride 3-29 500 ml/hr, l 0.154 09:23: Infuse Jasbir MEQ/ML 00 Over: 1 Injectable hr, Route: Solution IV, 500, Drug form: INJ, ONCE, Priority: STAT, Dosing Weight 59.091 kg, Start date: 12/10/16 4:23:00 CDT, Duration: 1 doses or times, Stop date: 12/10/16 4:23:00 CDT Saline No Notes: Memoria Flush 0.9% 3- Same as: l 07:02: BD Hanna Posiflush Sterile Saline No Notes: Memoria Flush 0.9% 3-29 Same as: l 07:02: BD Hanna Posiflush Sterile Saline No Notes: Memoria Flush 0.9% 3- Same as: l 07:02: BD Jasbir Posiflush Sterile Ondansetron Yes Special Mem oria 4 MG 9- Instructio l Disintegrat 10:40: ns: Chris n ing Tablet 00 Dissolve [Zofran] tab under tongue Ondansetron Yes Special Mem oria 4 MG 9-26 Instructio l Disintegrat 10:40: ns: Chris n ing Tablet 00 Dissolve [Zofran] tab under tongue Ondansetron Yes Special Mem oria 4 MG 9-26 Instructio l Disintegrat 10:40: ns: Chris n ing Tablet 00 Dissolve [Zofran] tab under tongue Ondansetron No Notes: Isaak lauren 06-09 (Same as: l 10:13: Zofran) Jasbir 00 MEDICATION WASTE Product Size: 4 mg Product Wasted: ___ mg Ativan No Notes: Memoria 06-09 (Same as: l 10:13: Ativan) Jasbir Ondansetron No Notes: Isaak lauren 06-09 (Same as: l 10:13: Zofran) Jasbir 00 MEDICATION WASTE Product Size: 4 mg Product Wasted: ___ mg Ativan No Notes: Memoria 06-09 (Same as: l 10:13: Ativan) Ondansetron No Notes: Isaak lauren 06-09 (Same as: l 10:13: Zofran) MEDICATION WASTE Product Size: 4 mg Product Wasted: ___ mg Ativan No Notes: Memoria 06-09 (Same as: l 10:13: Ativan) Jasbir 00 Sodium No 1,000 mL, Memori a Chloride 7-24 1,000 l 0.154 04:34: ml/hr, Hanna MEQ/ML 00 Infuse Injectable Over: 1 Solution hr, Route: IV, ONCE, Priority: STAT, Dosing Weight 59.091 kg, Start date: 04/05/15 23:34:00, Duration: 1 doses or times, Stop date: 04/05/15 23:34:00 Sodium No 1,000 mL, Memori a Chloride 7-24 1,000 l 0.154 04:34: ml/hr, Hanna MEQ/ML 00 Infuse Injectable Over: 1 Solution hr, Route: IV, ONCE, Priority: STAT, Dosing Weight 59.091 kg, Start date: 04/05/15 23:34:00, Duration: 1 doses or times, Stop date: 04/05/15 23:34:00 Sodium No 1,000 mL, Memori a Chloride 7-24 1,000 l 0.154 04:34: ml/hr, Hanna MEQ/ML 00 Infuse Injectable Over: 1 Solution hr, Route: IV, ONCE, Priority: STAT, Dosing Weight 59.091 kg, Start date: 04/05/15 23:34:00, Duration: 1 doses or times, Stop date: 04/05/15 23:34:00 Saline No Notes: Memoria Flush 0.9% 7-24 Same as: l 02:36: BD Hanna Posiflush Sterile Saline No Notes: Memoria Flush 0.9% 7-24 Same as: l 02:36: BD Jasbir 00 Posiflush Sterile Saline No Notes: Memoria Flush 0.9% 7-24 Same as: l 02:36: BD Hanna Posiflush Sterile Levaquin No Notes: Do Isaak lauren 8-03 not give l 17:00: w/antacids Jasbir 00 , dairy pdt & minerals Take 1 hr before or 2 hr after dairy products Levaquin No Notes: Do Isaak lauren 04-16 not give l 17:00: w/antacids Jasbir 00 , dairy pdt & minerals Take 1 hr before or 2 hr after dairy products Levaquin No Notes: Do Isaak lauren 04-16 not give l 17:00: w/antacids Hanna 00 , dairy pdt & minerals Take [...] 3 mL, NEB, l Inhalant 16:40: Q6H, Hanna Solution 00 Dyspnea, # 120 ea, 0 Refill(s) tiotropium Yes 18 Memoria 0.018 04-15 microgram l MG/ACTUAT 16:40: = 1 ea, Estelle nn Inhalant 00 INHALATION Powder , RDaily, [Spiriva] # 30 ea, 0 Refill(s) levofloxaci Yes 750 mg = 1 Memoria n 750 mg 04-15 tab, PO, l oral tablet 16:40: [id number], # Jasbri 00 7 tab, 0 Refill(s) glimepiride Yes [...] tab, 0 Refill(s) predniSONE Yes Special Isaak lauern 10 mg oral 8-02 Instructio l tablet 16:40: ns: take 4 Estelle nn 00 tabs po daily for 3 days then 3 tabs po daily for 3 days then 2 tabs po daily for 3 days then 1 tab po daily for 3 days then stop. Albuterol Yes 2.49 mg = Mem oria 0.83 MG/ML 8-02 3 mL, NEB, l Inhalant 16:40: Q6H, Hanna Solution 00 Dyspnea, # 120 ea, 0 Refill(s) tiotropium Yes 18 Memoria 0.018 8-02 microgram l MG/ACTUAT 16:40: = 1 ea, Estelle nn Inhalant 00 INHALATION Powder , RDaily, [Spiriva] # 30 ea, 0 Refill(s) levofloxaci Yes 750 mg = 1 Memoria n 750 mg 8-02 tab, PO, l oral tablet 16:40: [id number], # Hanna 00 7 tab, 0 Refill(s) glimepiride Yes 4 mg = 1 Me moria 4 mg oral 8-02 tab, PO, l tablet 16:40: BID, # 60 Chris n 00 tab, 0 Refill(s) 120 ACTUAT Yes 2 puff, Isaak lauren Budesonide 8-02 INHALATION l 0.16 16:40: , RBID, # Hanna MG/ACTUAT / 00 1 ea, 0 formoterol Refill(s) fumarate 0.0045 MG/ACTUAT Metered Dose Inhaler [Symbicort] lisinopril Yes 10 mg = 1 Me moria 10 mg oral 8-02 tab, PO, l tablet 16:40: Daily, # Hanna 00 30 tab, 0 Refill(s) predniSONE Yes Special Isaak lauren 10 mg oral 8-02 Instructio l tablet 16:40: ns: take 4 [...] 0 Refill(s) tiotropium Yes 18 Memoria 0.018 - microgram l MG/ACTUAT 16:40: = 1 ea, Estelle nn Inhalant 00 INHALATION Powder , RDaily, [Spiriva] # 30 ea, 0 Refill(s) levofloxaci Yes 750 mg = 1 Memoria n 750 mg 02 tab, PO, l oral tablet 16:40: [id number], # Jasbir 00 7 tab, 0 Refill(s) [...] tab, PO, l tablet 16:40: Daily, # Hanna 00 30 tab, 0 Refill(s) Clonidine No Notes: Memori a 04-15 (Same As: l 12:50: Catapres) Clonidine No Notes: Memori a 04-15 (Same As: l 12:50: Catapres) Jasbir 00 Clonidine No Notes: Memori a 802 (Same As: l 12:50: Catapres) Jasbir 00 120 ACTUAT No Notes: Memor ia Budesonide 04-15 (Same as: l 0.16 01:00: Symbicort) Hanna MG/ACTUAT / 00 formoterol fumarate 0.0045 MG/ACTUAT Metered Dose Inhaler [Symbicort] 120 ACTUAT No Notes: Memor ia Budesonide 04-15 (Same as: l 0.16 01:00: Symbicort) Jasbir MG/ACTUAT / 00 formoterol fumarate 0.0045 MG/ACTUAT Metered Dose Inhaler [Symbicort] 120 ACTUAT No Notes: Memor ia Budesonide 04-15 (Same as: l 0.16 01:00: Symbicort) Hanna MG/ACTUAT / 00 formoterol fumarate 0.0045 MG/ACTUAT [...] Jasbir 00 Prednisone No Notes: Memor ia 8 Take with l 18:05: food. Hanna 00 Prednisone No Notes: Memor ia 8- Take with l 18:05: food. Hanna 00 Levaquin No Notes: Memoria 8 (Same l 17:00: as:Levaqui Jasbir 00 n) Levaquin No Notes: Memoria 8- (Same l 17:00: as:Levaqui Jasbir 00 n) Levaquin No Notes: Memoria 8- (Same l 17:00: as:Levaqui Hanna 00 n) potassium No Notes: Memori a phosphate-s 04-14 Non-Fomrul l odium 12:03: [facility]. Hanna phosphate 00 (Same as: 250 mg-45 K-Phos) mg-298 mg oral tablet potassium No Notes: Memori a phosphate-s 04-14 Non-Fomrul l odium 12:03: [facility]. Jasbir phosphate 00 (Same as: 250 mg-45 K-Phos) mg-298 mg oral tablet potassium No Notes: Memori a phosphate-s 8- Non-Fomrul l odium 12:03: [facility]. Jasbir phosphate 00 (Same as: 250 mg-45 K-Phos) mg-298 mg oral tablet Methylpredn No Notes: Isaak lauren isolone 8- (Same l 02:00: as:Solu-ME Jasbir 00 DROL, A-Methapre d) Pravastatin No Notes: Isaak lauren 8- (Same as: l 02:00: Pravachol) Hanna 00 Pramipexole No Notes: Isaak lauren 8- (Same as: l 02:00: Mirapex) Jasbir Methylpredn No Notes: Isaak lauren isolone 8- (Same l 02:00: as:Solu-ME Jasbir 00 DROL, A-Methapre d) Pravastatin No Notes: Isaak lauren 8- (Same as: l 02:00: Pravachol) Hanna 00 Pramipexole No Notes: Isaak lauren 8- (Same as: l 02:00: Mirapex) Jasbir 00 Methylpredn No Notes: Isaak lauren isolone 8- (Same l 02:00: as:Solu-ME Hanna 00 DROL, A-Methapre d) Pravastatin No Notes: Isaak lauren 8- (Same as: l 02:00: Pravachol) Jasbir 00 Pramipexole No Notes: Isaak lauren 8- (Same as: l 02:00: Mirapex) Hanna 00 Alprazolam No Notes: Memor ia 1 MG Oral 7-31 With food l Tablet 22:00: or milk Hanna [Xanax] 00 (Same as: Xanax) Alprazolam No Notes: Memor ia 1 MG Oral 7-31 With food l Tablet 22:00: or milk Jasbir [Xanax] 00 (Same as: Xanax) Alprazolam No Notes: Memor ia 1 MG Oral 7-31 With food l Tablet 22:00: or milk Hanna [Xanax] 00 (Same as: Xanax) Buspirone No Notes: Memori a 7-31 (Same As: l 18:00: BuSpar) Jasbir Buspirone No Notes: Memori a 7-31 (Same As: l 18:00: BuSpar) Jasbir Buspirone No Notes: Memori a 7-31 (Same As: l 18:00: BuSpar) Jasbir Lisinopril No Notes: Memor ia 7-31 (Same as: l 17:30: Prinivil, Jasbir 00 Zestril) Lisinopril No Notes: Memor ia 7-31 (Same as: l 17:30: Prinivil, Hanna 00 Zestril) Lisinopril No Notes: Memor ia 7-31 (Same as: l 17:30: Prinivil, Jasbir 00 Zestril) Metformin No Notes: Memori a 7-31 (Same as: l 17:00: Glucophage Hanna 00 ) Take with meal Januvia No Notes: Memoria 7-31 (Same as: l 17:00: Januvia) Sucralfate No Notes: May M emoria 7-31 interfere l 17:00: w/enteral Jasbir 00 feeds - Take 1 hr before or 2 hr after antacids, dairy pdt, meals & minerals - On empty stomach. (Same As: Carafate) Metformin No Notes: Memori a 7-31 (Same as: l 17:00: Glucophage Jasbir ) Take with meal Januvia No Notes: Memoria 7-31 (Same as: l 17:00: Januvia) Jasbir 00 Sucralfate No Notes: May M emoria 7-31 interfere l 17:00: w/enteral Hanna 00 feeds - Take 1 hr before or 2 hr after antacids, dairy pdt, meals & minerals - On empty stomach. (Same As: Carafate) Metformin No Notes: Memori a 7-31 (Same as: l 17:00: Glucophage Hanna ) Take with meal Januvia No Notes: Memoria 7-31 (Same as: l 17:00: Januvia) Sucralfate No Notes: January emoria - interfere l 17:00: w/enteral feeds - Take 1 hr before or 2 hr after antacids, dairy pdt, meals & minerals - On empty stomach. (Same As: Carafate) Hydroxyzine No Notes: Isaak lauren Hydrochlori -31 (Same as: l de 25 MG 16:37: Atarax) Chris n Oral Tablet 00 Avoid alcohol. Hydroxyzine No Notes: Isaak lauren Hydrochlori 7-31 (Same as: l de 25 MG 16:37: Atarax) Chris n Oral Tablet Avoid alcohol. Hydroxyzine No Notes: Isaak lauren Hydrochlori 7-31 (Same as: l de 25 MG 16:37: Atarax) Chris n Oral Tablet Avoid alcohol. Nicoderm No Notes: Memoria C-Q [...] 14:00: food. Nicoderm No Notes: Memoria C-Q - (Same as: l 14:00: Habitrol) "Remove old [...] Memoria 7-31 Tablet l 12:30: should not Hanna 00 be chewed or crushed. (Same as: Protonix) Protonix No Notes: Memoria 7-31 Tablet l 12:30: should not Jasbir 00 be chewed or crushed. (Same as: Protonix) insulin No Notes: Memoria detemir 7-31 Same as l 02:00: Levemir Jasbir "single patient use only" insulin No Notes: Memoria detemir 7-31 Same as l 02:00: Levemir Hanna "single patient use only" insulin No Notes: Memoria detemir 7-31 Same as l 02:00: Levemir Hanna "single patient use only" Albuterol No Notes: Memori a 0.833 MG/ML 7- (Same as: :00: Duoneb) Hanna Ipratropium 00 [place] 0.167 MG/ML Inhalant Solution [DuoNeb] Albuterol No Notes: Memori a 0.833 MG/ML 7-31 (Same as: :00: Duoneb) Hanna Ipratropium 00 [place] 0.167 MG/ML Inhalant Solution [DuoNeb] Albuterol No Notes: Memori a 0.833 MG/ML 7-31 (Same as: :00: Duoneb) Jasbir Ipratropium 00 [place] 0.167 MG/ML Inhalant Solution [DuoNeb] Brovana No Notes: SEE Isaak lauren 7-30 RT l 23:02: DOCUMENTAT Jasbir 00 ION Same as Broандрейa Brovana No Notes: SEE Isaak lauren 7-30 RT l 23:02: DOCUMENTAT Hanna 00 ION Same as Brovana Brovana No Notes: SEE Isaak lauren 7-30 RT l 23:02: DOCUMENTAT Hanna 00 ION Same as Brovinnie Gomezm No Notes: Memoria C-Q 7-30 (Same as: l 23:00: Habitrol) Hanna 00 "Remove old patch before applicatio n of new patch" Nicoderm No Notes: Memoria C-Q 7-30 (Same as: l 23:00: Habitrol) Hanna 00 "Remove old patch before applicatio n [...] lauren isolone 7-30 (Same l 22:00: as:Solu-ME Hanna 00 DROL, A-Methapre d) Alprazolam No Notes: [...] lauren isolone 7-30 (Same l 22:00: as:Solu-ME Hanna 00 DROL, A-Methapre d) Alprazolam No Notes: Memor ia 1 MG Oral 7-30 With food l Tablet 22:00: or milk Hanna [Xanax] 00 (Same as: Xanax) Alprazolam No Notes: Memor ia 7-30 With food l 22:00: or milk Hanna 00 (Same as: Xanax) Advair No Notes: Memoria Diskus 250 7-30 (Same as: l mcg-50 mcg 22:00: Advair) Herm jose a inhalation 00 powder Budesonide No Notes: Memor ia 7-30 (Same As: l 21:11: Pulmicort) Jasbir 00 Budesonide No Notes: Memor ia 7-30 (Same As: l 21:11: Pulmicort) Hanna Budesonide No Notes: Memor ia 7-30 (Same As: l 21:11: Pulmicort) Jasbir 00 Ativan No Notes: Memoria 7-30 (Same as: l 21:08: Ativan) Jasbir Ativan No Notes: Memoria 7-30 (Same as: l 21:08: Ativan) Jasbir 00 Ativan No Notes: Memoria 7-30 (Same as: l 21:08: Ativan) Jasbir 00 Levaquin No Notes: Memoria 7-30 (Same l 21:00: as:Levaqui Hanna 00 n) Levaquin No Notes: Memoria 7-30 (Same l 21:00: as:Levaqui Jasbir 00 n) Levaquin No Notes: Memoria 7-30 (Same l 21:00: as:Levaqui Jasbir 00 n) Albuterol No Notes: Memori a 0.833 MG/ML 7-30 (Same as: l / 20:00: Duoneb) Hanna Ipratropium 00 [place] 0.167 MG/ML Inhalant Solution [DuoNeb] Albuterol No Notes: Memori a 0.833 MG/ML 7-30 (Same as: l / 20:00: Duoneb) Hanna Ipratropium 00 [place] 0.167 MG/ML Inhalant Solution [DuoNeb] Albuterol No Notes: Memori a 0.833 MG/ML 7-30 (Same as: l / 20:00: Duoneb) Ipratropium 00 [place] 0.167 MG/ML Inhalant Solution [DuoNeb] Hydroxyzine Yes [...] PO, Memoria e 7-30 Daily l 19:52: Jasbir 00 pramipexole Yes Special Mem oria 0.125 mg [...] 7-30 BID l de 1000 MG 19:52: Hanna sitagliptin 50 MG Oral Tablet [] Alprazolam [...] Tablet 19:52: Daily Estelle nn [Lexapro] 00 busPIRone Yes 10 mg = 1 Mem oria 10 mg oral 7-30 tab, PO, l tablet 19:52: TID Hanna 00 predniSONE No See Memoria 10 mg oral 7-30 Special l tablet 19:52: Instructio Estelle nn 00 ns, PO, Daily, # 12 tab busPIRone Yes 10 mg = 1 Mem oria 10 mg oral 7-30 tab, PO, l tablet 19:52: TID Jasbir 00 Levaquin No Notes: Memoria 7-30 (Same l 19:00: as:Levaq Hanna 00 n) Levaquin No Notes: Memoria 7-30 (Same l 19:00: as:Levaq Hanna 00 n) Levaquin No Notes: Memoria 7-30 (Same l 19:00: as:[facility] Hanna 00 n) Insulin, No Notes: Memoria Aspart, [...] 7-30 Route: IM, l 18:54: Drug form: PDR/INJ, [...] e. Expires in days from ____Date Dextrose 2014-0 No 25 gm, 50 Isaak lauren 50% Syringe 7-30 mL, Route: l 18:54: IVP, Drug Jasbir 00 Form: INJ, Dosing Weight 72.727, kg, PRN, PRN Blood Glucose Results, Start date: 04/12/14 13:54:00, Duration: 30 day, Stop date: 05/12/14 13:53:00 Glucagon 0 No 1 mg, Memoria 730 Route: IM, l 18:54: Drug form: Hanna 00 PDR/INJ, PRN, Dosing Weight 72.727, kg, PRN Blood Glucose Results, Start date: 04/12/14 13:54:00, Duration: 30 day, Stop date: 05/12/14 13:53:00 Insulin, 2013-0 No Notes: Memoria Aspart, 7-30 Roll in l Human 18:54: palms of Jasbir 00 hands gently; Do not shake vigorously . (Same as: NovoLOG) "single patient use only" Stable for 28 days at room temperatur e. Expires in days from ____Date Dextrose 2013-0 No 25 gm, 50 Isaak lauren 50% Syringe 7-30 mL, Route: l 18:54: IVP, Drug Hanna 00 Form: INJ, Dosing Weight 72.727, kg, PRN, PRN Blood Glucose Results, Start date: 04/12/14 13:54:00, Duration: 30 day, Stop date: 05/12/14 13:53:00 Glucagon 2013-0 No 1 mg, Memoria 730 Route: IM, l 18:54: Drug form: Hanna 00 PDR/INJ, PRN, Dosing Weight 72.727, kg, PRN Blood Glucose Results, Start date: 04/12/14 13:54:00, Duration: 30 day, Stop date: 05/12/14 13:53:00 Acetaminoph 2014-0 No Notes: Isaak lauren en 325 MG / 7-30 (Same as: l Hydrocodone 18:50: Keota Estelle nn Bitartrate 00 325/5) Do 5 MG Oral not exceed Tablet 4gm/day of acetaminop hen. Acetaminoph No Notes: Do M emoria en 7-30 not exceed l 18:50: 4 gm/day. Jasbir (Same as: Tylenol) Docusate No Notes: Memoria 7-30 (Same as: l 18:50: Colace) Hanna (Do Not Crush) Ondansetron No Notes: Isaak lauren 7-30 (Same as: l 18:50: Zofran) Hanna Acetaminoph No Notes: Isaak lauren en 325 MG / 7-30 (Same as: l Hydrocodone 18:50: Keota Estelle nn Bitartrate 00 325/5) Do 5 MG Oral not exceed Tablet 4gm/day of acetaminop hen. Acetaminoph No Notes: Do M emoria en 7-30 not exceed l 18:50: 4 gm/day. Hanna (Same as: Tylenol) Docusate No Notes: Memoria 7-30 (Same as: l 18:50: Colace) Jasbir (Do Not Crush) Ondansetron No Notes: Isaak lauren 7-30 (Same as: l 18:50: Zofran) Hanna Acetaminoph No Notes: Isaak lauren en 325 MG / 7-30 (Same as: l Hydrocodone 18:50: Keota Estelle nn Bitartrate 00 325/5) Do 5 MG Oral not exceed Tablet 4gm/day of acetaminop hen. Acetaminoph No Notes: Do M emoria en 7-30 not exceed l 18:50: 4 gm/day. Jasbir (Same as: Tylenol) Docusate No Notes: Memoria 7-30 (Same as: l 18:50: Colace) Hanna (Do Not Crush) Ondansetron No Notes: Isaak lauren 7-30 (Same as: l 18:50: Zofran) Hanna Albuterol No Notes: Memori a 0.833 MG/ML 7-30 (Same as: l / 17:43: Duoneb) Ipratropium 00 [place] 0.167 MG/ML Inhalant Solution [DuoNeb] Albuterol No Notes: Memori a 0.833 MG/ML 7-30 (Same as: l / 17:43: Duoneb) Ipratropium 00 [place] 0.167 MG/ML Inhalant Solution [DuoNeb] Albuterol No Notes: Memori a 0.833 MG/ML 7-30 (Same as: l / 17:43: Duoneb) Ipratropium 00 [place] 0.167 MG/ML Inhalant Solution [DuoNeb] Ondansetron No Notes: Isaak lauren 7-30 (Same as: l 16:06: Zofran) Ondansetron No Notes: Isaak lauren 7-30 (Same as: l 16:06: Zofran) Ondansetron No Notes: Isaak lauren 7-30 (Same as: l 16:06: Zofran) pramipexole Yes .125mg [id number] Take 0.[address] [facility] (MIRAPEX) 7-28 [id number] mg by Fariba es 0.125 MG 17:05: 3D mouth 3 Medica l tablet 25 (three) Center times daily. Pt was prescribed this medication and then stopped taking it suddenly 2 months ago. (Per family) pramipexole Yes .125mg Q.[id number] Take 0.[address] [facility] (MIRAPEX) 7-28 [id number] mg by Fariba es 0.125 MG 17:05: 3D mouth 3 Medica l tablet 25 (three) Center times daily. Pt was prescribed this medication and then stopped taking it suddenly 2 months ago. (Per family) pramipexole Yes .125mg Q.[id number] Take 0.[address] [facility] [address] (MIRAPEX) 7-28 [id number] mg by Fariba es 0.125 MG 17:05: 3D mouth 3 Medica l tablet 25 (three) Center times daily. Pt was prescribed this medication and then stopped taking it suddenly 2 months ago. (Per family) pramipexole Yes .125mg Q.[id number] Take 0.[address] [facility] [address] (MIRAPEX) 7-28 [id number] mg by Fariba es 0.125 MG 17:05: 3D mouth 3 Medica l tablet 25 (three) Center times daily. Pt was prescribed this medication and then stopped taking it suddenly 2 months ago. (Per family) pramipexole Yes .125mg Q.[id number] Take 0.[address] [facility] [address] (MIRAPEX) 7-28 [id number] mg by Fariba es 0.125 MG 17:05: [...] 0-09 Jessica BID, 14 l 19:53: tab, Hanna 30 Substituti on Allowed, Maintenanc e Bactrim DS 2011-09 Yes Loann The 1 tab, PO, Memoria oral tablet 0-09 Jessica BID, 14 l 19:53: tab, Hanna 30 Substituti on Allowed, Maintenanc e Sodium [...] 0-09 Jessica Route: l 17:41: IVP, Drug Jasbir [...] 0-09 Jessica Route: l 17:41: IVP, Drug Form: INJ, [...] 0-09 Jessica Route: l 17:41: IVP, Drug Form: INJ, Dosing Weight 67.727, kg, PRN, PRN Line Flush, Start date: 06/22/12 12:41:00, Duration: 24 hr, Stop date: 06/23/12 12:40:00 Prinivil No Spencer H 5 mg, 1 M emoria 06-12 [place] tab, l 14:00: Route: PO, Hanna 00 Drug form: TAB, Daily, Start date: 06/12/12 9:00:00, Duration: 30 day, Stop date: 07/11/12 9:00:00 Prinivil No Spencer H 5 mg, 1 M emoria 06-12 [place] tab, l 14:00: Route: PO, Jasbir 00 Drug form: TAB, Daily, Start date: 06/12/12 9:00:00, Duration: 30 day, Stop date: 07/11/12 9:00:00 Prinivil 2011-0 No Spencer H 5 mg, 1 M emoria 06-12 [place] tab, l 14:00: Route: PO, Jasbir 00 Drug form: TAB, Daily, Start date: 06/12/12 9:00:00, Duration: 30 day, Stop date: 07/11/12 9:00:00 Protonix 2011-0 No Tatianna 40 mg, 1 Me moria 06-11 [place]- tab, l 21:30: Zacarias Route: PO, Estelle Drug form: ECTAB, Before [...] Spencer H 25 mg, 1 Memoria 06-11 [place] tab, l 19:00: Route: PO, Drug form: ERTAB, Daily, Start date: 06/11/12 14:00:00, Duration: 30 day, Stop date: 07/11/12 9:00:00 Prinivil 2011-0 No Spencer H 2.5 mg, M emoria 06-11 [place] 0.5 tab, l 19:00: Route: PO, Drug form: TAB, ONCE, Start date: 06/11/12 14:00:00, Stop date: 06/11/12 14:00:00 metoprolol 2011-0 No Spencer H 25 mg, 1 Memoria - [place] tab, l 19:00: Route: PO, Jasbir 00 Drug form: ERTAB, Daily, Start date: 06/11/12 14:00:00, Duration: 30 day, Stop date: 07/11/12 9:00:00 Prinivil 2011-0 No Spencer H 2.5 mg, M emoria - [place] 0.5 tab, l 19:00: Route: PO, Jasbir 00 Drug form: TAB, ONCE, Start date: 06/11/12 14:00:00, Stop date: 06/11/12 14:00:00 metoprolol 2012-0 No Spencer H 25 mg, 1 Memoria - [place] tab, l 19:00: Route: PO, Jasbir 00 Drug form: ERTAB, Daily, Start date: 06/11/12 14:00:00, Duration: 30 day, Stop date: 07/11/12 9:00:00 Prinivil 2011-0 No Spencer H 2.5 mg, M emoria - [place] 0.5 tab, l 19:00: Route: PO, Jasbir 00 Drug form: TAB, ONCE, Start date: 06/11/12 14:00:00, Stop date: 06/11/12 14:00:00 Restoril 2011-0 No Spencer H 15 mg, 1 Memoria - [place] cap, l 05:05: Route: PO, Jasbir 00 Drug form: CAP, Bedtime, PRN Sleep, Start date: 06/11/12 0:05:00, Duration: 30 day, Stop date: 07/11/12 0:04:00 Restoril 2012-0 No Spencer H 15 mg, 1 Memoria - [place] cap, l 05:05: Route: PO, Jasbir 00 Drug form: CAP, Bedtime, PRN Sleep, Start date: 06/11/12 0:05:00, Duration: 30 day, Stop date: 07/11/12 0:04:00 Restoril 2011-0 No Spencer H 15 mg, 1 Memoria 06-11 [place] cap, l 05:05: Route: PO, Jasbir 00 Drug form: CAP, Bedtime, PRN Sleep, [...] 06/10/12 15:00:00, Stop date: 06/10/12 15:00:00 Protonix 0 No Tatianna 40 mg, Isaak lauren 06-10 Iliskovic- Route: l 20:00: Zacarias IVP, Drug Chris n 00 form: INJ, ONCE, Start date: 06/10/12 15:00:00, Stop date: 06/10/12 15:00:00 folic acid 2011-0 No Gnananandh 1 mg, 1 Memoria 1 mg oral 06-10 Mary tab, l tablet 14:00: Route: GT, Estelle nn 00 Drug form: TAB, Daily, Start date: 06/10/12 9:00:00, Duration: 30 day, Stop date: 07/09/12 9:00:00 Vitamin B1 0 No Gnananandh 100 mg, 1 Memoria 06-10 Mary tab, l 14:00: Route: NG, Jasbir 00 Drug form: TAB, Daily, Start date: 06/10/12 9:00:00, Duration: 30 day, Stop date: 07/09/12 9:00:00 Prinivil 2011-0 No Spencer H 2.5 mg, M emoria 06-10 [place] 0.5 tab, l 14:00: Route: PO, Jasbir 00 [...] 06-10 Mary tab, l 14:00: Route: NG, Hanna 00 Drug form: TAB, Daily, Start date: 06/10/12 9:00:00, Duration: 30 day, Stop date: 07/09/12 9:00:00 Prinivil 2011-0 No Spencer H 2.5 mg, M emoria 06-10 [place] 0.5 tab, l 14:00: Route: PO, Hanna Drug form: TAB, Daily, Start date: 06/10/12 [...] 06-10 Mary tab, l 14:00: Route: NGJasbir Drug form: TAB, Daily, Start date: 06/10/12 9:00:00, Duration: 30 day, Stop date: 07/09/12 9:00:00 Prinivil 2011-0 No Spencer H 2.5 mg, M emoria 06-10 [place] 0.5 tab, l 14:00: Route: PO, Hanna 00 Drug form: TAB, Daily, Start date: 06/10/12 9:00:00, Duration: 30 day, Stop date: 07/09/12 9:00:00 Paxil 2011-0 No Spencer H 45 mg, Memor ia 9-26 [place] 2.25 tab, l 23:00: Route: PO, Jasbir 00 Drug form: TAB, Daily, Start date: 06/09/12 18:00:00, Duration: 30 day, Stop date: 07/09/12 9:00:00 Paxil 2012-0 No Spencer H 45 mg, Memor ia 9-26 [place] 2.25 tab, l 23:00: Route: PO, Hanna 00 Drug form: TAB, Daily, Start date: 06/09/12 18:00:00, Duration: 30 day, Stop date: 07/09/12 9:00:00 Paxil 2012-0 No Spencer H 45 mg, Memor ia 9-26 [place] 2.25 tab, l 23:00: Route: PO, Hanna 00 Drug form: TAB, Daily, Start date: 06/09/12 18:00:00, Duration: 30 day, Stop date: 07/09/12 9:00:00 Glucophage 2011-0 No Spencer H 500 mg, 1 Memoria XR 9-26 [place] tab, l 22:00: Route: PO, Jasbir 00 Drug form: ERTAB, BID-Before Meals, Start date: 06/09/12 17:00:00, Duration: 30 day, Stop date: 07/09/12 16:30:00 Pravachol 2011-0 No Spencer H 25 mg, 2.5 Memoria 9-26 [place] tab, l 22:00: Route: PO, Hanna 00 Drug form: TAB, QPM, Start date: 06/09/12 17:00:00, Duration: 30 day, Stop date: 07/08/12 17:00:00 cefazolin + 2011-0 No Spencer H 1 gm, Memoria Sodium 9-26 [place] Route: l Chloride 22:00: IVPB, Jasbir 0.9% [...] H 500 mg, 1 Memoria XR - [place] tab, l 22:00: Route: PO, Hanna 00 Drug form: ERTAB, BID-Before Meals, Start date: 06/09/12 17:00:00, Duration: 30 day, Stop date: 07/09/12 16:30:00 Pravachol 2011-0 No Spencer H 25 mg, 2.5 Memoria - [place] tab, l 22:00: Route: PO, Hanna 00 Drug form: TAB, QPM, Start date: 06/09/12 17:00:00, Duration: 30 day, Stop date: 07/08/12 17:00:00 cefazolin + 2011-0 No Spencer H 1 gm, Memoria Sodium 06-09 [place] Route: l Chloride 22:00: IVPB, Jasbir 0.9% [...] H 500 mg, 1 Memoria XR - [place] tab, l 22:00: Route: PO, Jasbir 00 Drug form: ERTAB, BID-Before Meals, Start date: 06/09/12 17:00:00, Duration: 30 day, Stop date: 07/09/12 16:30:00 Pravachol 2011-0 No Spencer H 25 mg, 2.5 Memoria -26 [place] tab, l 22:00: Route: PO, Jasbir 00 Drug form: TAB, QPM, Start date: 06/09/12 17:00:00, Duration: 30 day, Stop date: 07/08/12 17:00:00 cefazolin + 2011-0 No Spencer H 1 gm, Memoria Sodium 06-09 [place] Route: l Chloride 22:00: IVPB, Hanna 0.9% IV 100 00 [id number], mL Start [...] No Spencer H 20 mg, 2 Memoria - [place] tab, l 21:30: Route: PO, Jasbir 00 Drug form: TAB, BID-Before Meals, Start date: 06/09/12 16:30:00, Duration: 30 day, Stop date: 07/09/12 7:30:00 Glucotrol 2011-0 No Spencer H 20 mg, 2 Memoria 06-09 [place] tab, l 21:30: Route: PO, Jsabir 00 Drug form: TAB, BID-Before Meals, Start date: 06/09/12 16:30:00, Duration: 30 day, Stop date: 07/09/12 7:30:00 Glucotrol 2011-0 No Spencer H 20 mg, 2 Memoria 06-09 [place] tab, l 21:30: Route: PO, Jasbir 00 Drug form: TAB, BID-Before Meals, Start date: 06/09/12 16:30:00, Duration: 30 day, Stop date: 07/09/12 7:30:00 acetaminoph 2011-0 No Spencer H 2 tab, Memoria en-hydrocod 06-09 [place] Route: PO, l one 325 17:09: Drug Form: Herm jose a mg-5 mg 00 TAB, Q4H, oral tablet PRN Pain, Start date: 06/09/12 12:09:00, Duration: 30 day, Stop date: 07/09/12 12:08:00 1/2NS + KCL No Spencer H 1,000 mL, Memoria 20mEq/L 06-09 [place] Rate: 60 l 1000ml 17:09: ml/hr, Jasbir [...] Spencer H 1,000 mL, Memoria 20mEq/L 06-09 [place] Rate: 60 l 1000ml 17:09: ml/hr, Jasbir [...] [place] Rate: 60 l 1000ml 17:09: ml/hr, Hanna (Premix) 00 Infuse 1,000 mL over: 16.7 hr, Route: IV, kg, Total Volume: 1,000, Start date: 06/09/12 12:09:00, Duration: 30 day, Stop date: 07/09/12 12:08:00 NS 500 mL 2011-0 No Fernando 500 mL, Me moria 9 Dante Rate: 30 l 13:25: Gall[place] ml/hr, Chris n 00 Infuse over: 16.7 hr, Route: INTRAARTER IAL, kg, Total Volume: 500, Start date: 06/09/12 8:25:00, Duration: 1 doses or times, Stop date: 06/10/12 1:06:00 NS 500 mL 2011-0 No Fernando 500 mL, Me moria 9 [place] Rate: 30 l 13:25: Gall[place] ml/hr, Chris n 00 Infuse over: 16.7 hr, Route: INTRAARTER IAL, kg, Total Volume: 500, Start date: 06/09/12 8:25:00, Duration: 1 doses or times, Stop date: 06/10/12 1:06:00 NS 500 mL 2011-0 No Fernando 500 mL, Me moria 06-09 [place] Rate: 30 l 13:25: [place] ml/hr, Chris n 00 Infuse over: 16.7 hr, Route: INTRAARTER IAL, kg, Total Volume: 500, Start date: 06/09/12 8:25:00, Duration: 1 doses or times, Stop date: 06/10/12 1:06:00 Lactated 2011-0 No Spencer H 1,000 mL, Memoria Ringers IV 06-09 [place] Rate: 100 l 1,000 mL 12:32: ml/hr, [...] or times, Stop date: 06/09/12 17:31:00 Lactated 2012-0 No Spencer H 1,000 mL, Memoria Ringers IV 06-09 [place] Rate: 100 l 1,000 mL 12:32: ml/hr, Hanna 00 Infuse over: 10 hr, Route: IV, [...] No Spencer H 0.1 mL, Memoria 06-07 [place] Route: l 11:00: INJ, Drug Hanna form: INJ, ONCALL, Start date: 06/07/12 6:00:00, Duration: 1 minutes, Stop date: 06/07/12 6:00:00 cefazolin + 2011-0 No Spencer H 1 gm, Memoria Sodium - [place] Route: l Chloride 11:00: IVPB, Hanna 0.9% IV 100 00 ONCALL, mL Start date: 06/07/12 6:00:00, Duration: 1 doses or times Lactated 2011-0 No Spencer H 1,000 mL, Memoria Ringers 06-07 [place] Rate: 100 l Injection 11:00: ml/hr, Chris n IV 1,000 mL 00 Infuse over: 10 hr, Route: IV, kg, Total Volume: 1,000, Start date: 06/07/12 6:00:00, Duration: 1 minutes, Stop date: 06/07/12 6:00:00 lidocaine 2011-0 No Spencer H 0.1 mL, Memoria 9-24 [place] Route: l 11:00: INJ, Drug Hanna 00 form: INJ, ONCALL, Start date: 06/07/12 6:00:00, Duration: 1 minutes, Stop date: 06/07/12 6:00:00 cefazolin + 0 No Spencer H 1 gm, Memoria Sodium 06-07 [place] Route: l Chloride 11:00: IVPB, Jasbir 0.9% IV 100 00 ONCALL, mL Start date: 06/07/12 6:00:00, Duration: 1 doses or times Lactated No Spencer H 1,000 mL, Memoria Ringers 06-07 [place] Rate: 100 l Injection 11:00: ml/hr, Chris n IV 1,000 mL 00 Infuse over: 10 hr, Route: IV, kg, Total Volume: 1,000, Start date: 06/07/12 6:00:00, Duration: 1 minutes, Stop date: 06/07/12 6:00:00 lidocaine 2011- No Spencer H 0.1 mL, Memoria 06-07 [place] Route: l 11:00: INJ, Drug Hanna 00 form: INJ, ONCALL, Start date: 06/07/12 6:00:00, Duration: 1 minutes, Stop date: 06/07/12 6:00:00 cefazolin + No Spencer H 1 gm, Memoria Sodium 06-07 [place] Route: l Chloride 11:00: IVPB, Hanna 0.9% IV 100 00 ONCALL, mL Start date: 06/07/12 6:00:00, Duration: 1 doses or times Immunizations Ordered Immunization Filled Immunization Date Status Commen ts Source Name Name pneumococcal 2014-04-13 Completed [facility] 23-valent vaccine 14:14:00 Jasbir pneumococcal 2014-04-13 Completed [facility] 23-valent vaccine 14:14:00 Hanna pneumococcal 2014-04-13 Completed [facility] 23-valent vaccine 14:14:00 Hanna Vital Signs Vital Name Observation Time Observation Value Comments Source Body height 2023-01-15 16:14:00 157.5 cm [facility] Body weight 2023-01-15 16:14:00 45.36 kg [facility] BMI 2023-01-15 16:14:00 18.29 kg/m2 [facility] Temperature Oral (F) 2019-12-06 18:24:[address] [facility] Heart Rate 2019-12-06 18:24:00 [facility] [place] Respitory Rate 2019-12-06 18:24:00 Memori al Jasbir Systolic (mm Hg) 2019-12-06 18:24:00 Isaak rial [place] Diastolic (mm Hg) 2019-12-06 18:24:00 Mem orial Jasbir Temperature Oral (F) 2019-12-06 13:38:00 98.2 F [facility] [place] Heart Rate 2019-12-06 13:38:00 [facility] Jasbir Respitory Rate 2019-12-06 13:38:00 Memori al Jasbir Systolic (mm Hg) 2019-12-06 13:38:00 Isaak rial Jasbir Diastolic (mm Hg) 2019-12-06 13:38:00 Mem orial [place] Temperature Oral (F) 2019-12-06 09:53:00 98.5 F [facility] [place] Systolic (mm Hg) 2019-12-06 09:53:00 Isaak rial Jasbir Diastolic (mm Hg) 2019-12-06 09:53:00 Mem orial Jasbir Respitory Rate 2019-12-06 09:53:00 Memori al Jasbir Heart Rate 2019-12-06 09:53:00 [facility] [place] Height 2019-12-05 20:15:00 152.4 cm [facility] [place] Weight 2019-12-05 20:15:00 [facility] Jasbir BMI Calculated 2019-12-05 20:15:00 Memori al Jasbir Height 2019-12-05 15:20:00 172.72 cm [facility] Jasbir BMI Calculated 2019-12-05 15:20:00 [facility] al [place] Weight 2019-12-05 15:20:00 [facility] [place] Respitory Rate 2019-11-19 04:24:00 [facility] al [place] Systolic (mm Hg) 2019-11-19 04:24:00 Isaak rial [place] Diastolic (mm Hg) 2019-11-19 04:24:00 Mem orial Jasbir Respitory Rate 2019-11-19 03:15:00 Memori al Jasbir Systolic (mm Hg) 2019-11-19 03:15:00 Isaak rial [place] Diastolic (mm Hg) 2019-11-19 03:15:00 Mem orial [place] Respitory Rate 2019-11-19 02:18:00 Memori al Jasbir Systolic (mm Hg) 2019-11-19 02:18:00 Isaak rial [place] Diastolic (mm Hg) 2019-11-19 02:18:00 Mem orial [place] BMI Calculated 2019-11-19 00:25:00 [facility] al [place] Heart Rate 2019-11-18 23:55:00 [facility] Jasbir Temperature Oral (F) 2019-11-18 23:55:00 97.4 F [facility] [place] Height 2019-11-18 23:55:00 152.4 cm [facility] Jasbir BMI Calculated 2019-11-18 23:55:00 [facility] al [place] Weight 2019-11-18 23:55:00 [facility] Jasbir Temperature Oral (F) 2019-10-25 22:43:00 98.4 F [facility] Jasbir Heart Rate 2019-10-25 22:43:00 [facility] [place] Respitory Rate 2019-10-25 22:43:00 Memori al [place] Systolic (mm Hg) 2019-10-25 22:43:00 Isaak rial Jasbir Diastolic (mm Hg) 2019-10-25 22:43:00 Mem orial [place] Temperature Oral (F) 2019-10-25 14:12:00 97.9 F [facility] [place] Heart Rate 2019-10-25 14:12:00 [facility] Jasbir Respitory Rate 2019-10-25 14:12:00 Memori al Jasbir Systolic (mm Hg) 2019-10-25 14:12:00 Isaak rial [place] Diastolic (mm Hg) 2019-10-25 14:12:00 Mem orial Jasbir Temperature Oral (F) 2019-10-25 09:56:00 98.2 F [facility] Jasbir Heart Rate 2019-10-25 09:56:00 [facility] [place] Respitory Rate 2019-10-25 09:56:00 Memori al Jasbir Systolic (mm Hg) 2019-10-25 09:56:00 Isaak rial [place] Diastolic (mm Hg) 2019-10-25 09:56:00 Mem orial Jasbir Height 2019-10-21 06:11:00 152.4 cm [facility] [place] Weight 2019-10-21 06:11:00 [facility] [place] BMI Calculated 2019-10-21 06:11:00 Memori al Jasbir Height 2019-10-20 18:05:00 152.4 cm [facility] Jasbir BMI Calculated 2019-10-20 18:05:00 Memori al Jasbir Weight 2019-10-20 18:05:00 [facility] [place] Temperature Oral (F) 2019-10-05 17:27:00 98.1 F [facility] Jasbir Heart Rate 2019-10-05 17:27:00 [facility] [place] Respitory Rate 2019-10-05 17:27:00 Memori al [place] Systolic (mm Hg) 2019-10-05 17:27:00 Isaak rial [place] Diastolic (mm Hg) 2019-10-05 17:27:00 Mem orial [place] Temperature Oral (F) 2019-10-05 13:12:00 97.9 F [facility] [place] Heart Rate 2019-10-05 13:12:00 [facility] [place] Respitory Rate 2019-10-05 13:12:00 Memori al Jasbir Systolic (mm Hg) 2019-10-05 13:12:00 Isaak rial Jasbir Diastolic (mm Hg) 2019-10-05 13:12:00 Mem orial Jasbir Temperature Oral (F) 2019-10-05 10:19:00 97.5 F [facility] [place] Heart Rate 2019-10-05 10:19:00 [facility] Jasbir Respitory Rate 2019-10-05 10:19:00 Memori al [place] Systolic (mm Hg) 2019-10-05 10:19:00 Isaak rial Jasbir Diastolic (mm Hg) 2019-10-05 10:19:00 Mem orial [place] Height 2019-10-04 04:10:00 152.4 cm [facility] [place] Weight 2019-10-04 04:10:00 [facility] [place] BMI Calculated 2019-10-04 04:10:00 [facility] al [place] Height 2019-10-03 19:36:00 152.4 cm [facility] [place] BMI Calculated 2019-10-03 19:36:00 Memori al Jasbir Weight 2019-10-03 19:36:00 [facility] [place] Respitory Rate 2018-09-08 05:21:00 [facility] al [place] Temperature Oral (F) 2018-09-08 05:21:00 98.0 F [facility] [place] Systolic (mm Hg) 2018-09-08 05:21:00 Isaak rial Jasbir Diastolic (mm Hg) 2018-09-08 05:21:00 Mem orial [place] Heart Rate 2018-09-08 05:21:00 [facility] [place] BMI Calculated 2018-09-08 01:37:00 Memori al Jasbir Weight 2018-09-08 01:37:00 [facility] Jasbir Height 2018-09-08 01:37:00 152.4 cm [facility] Jasbir Heart Rate 2018-09-08 01:37:00 [facility] [place] Systolic (mm Hg) 2018-09-08 01:37:00 Isaak rial [place] Diastolic (mm Hg) 2018-09-08 01:37:00 Mem orial [place] Temperature Oral (F) 2018-09-08 01:37:00 98.2 F [facility] [place] Respitory Rate 2018-09-08 01:37:00 Memori al Jasbir Systolic (mm Hg) 2018-05-31 20:22:00 Isaak rial Jasbir Diastolic (mm Hg) 2018-05-31 20:22:00 Mem orial [place] Respitory Rate 2018-05-31 20:22:00 Memori al Jasbir Systolic (mm Hg) 2018-05-31 19:33:00 Isaak [facility] Diastolic (mm Hg) 2018-05-31 19:33:00 [facility] Heart Rate 2018-05-31 19:33:00 [facility] Respitory Rate 2018-05-31 19:33:00 [facility] Respitory Rate 2018-05-31 19:02:00 [facility] Heart Rate 2018-05-31 19:02:00 [facility] Temperature Oral (F) 2018-05-31 19:02:00 98 F [facility] Systolic (mm Hg) 2018-05-31 19:02:00 [facility]ak [facility] Diastolic (mm Hg) 2018-05-31 19:02:00 [facility] Heart Rate 2018-05-31 18:39:00 [facility] Temperature Oral (F) 2018-05-31 18:39:00 98.1 F [facility] Height 2018-05-31 18:39:00 152.4 cm [facility] BMI Calculated 2018-05-31 18:39:00 [facility] Weight 2018-05-31 18:39:00 [facility] Temperature Oral (F) 2016-12-10 10:30:00 98.2 F [facility] Respitory Rate 2016-12-10 10:00:00 [facility] Systolic (mm Hg) 2016-12-10 10:00:00 [facility] Diastolic (mm Hg) 2016-12-10 10:00:00 [facility] Systolic (mm Hg) 2016-12-10 09:38:00 [facility] Diastolic (mm Hg) 2016-12-10 09:38:00 [facility] Heart Rate 2016-12-10 09:38:00 [facility] Respitory Rate 2016-12-10 09:38:00 [facility] Respitory Rate 2016-12-10 08:30:00 [facility] Systolic (mm Hg) 2016-12-10 08:30:00 [facility] Diastolic (mm Hg) 2016-12-10 08:30:00 [facility] Heart Rate 2016-12-10 07:36:00 [facility] BMI Calculated 2016-12-10 06:38:00 [facility] Weight 2016-12-10 06:38:00 [facility] Height 2016-12-10 06:38:00 152.4 cm [facility] Temperature Oral (F) 2016-12-10 06:38:00 98.1 F [facility] Heart Rate 2016-12-10 06:38:00 [facility] Respitory Rate 2015-06-09 10:52:00 [facility] Heart Rate 2015-06-09 10:52:00 [facility] Systolic (mm Hg) 2015-06-09 10:52:00 [facility] Diastolic (mm Hg) 2015-06-09 10:52:00 [facility] Systolic (mm Hg) 2015-06-09 10:24:00 [facility] Diastolic (mm Hg) 2015-06-09 10:24:00 [facility] Heart Rate 2015-06-09 10:24:00 [facility] Respitory Rate 2015-06-09 10:24:00 [facility] BMI Calculated 2015-06-09 06:12:00 [facility] Weight 2015-06-09 06:12:00 [facility] Height 2015-06-09 06:12:00 152.4 cm [facility] Systolic (mm Hg) 2015-06-09 06:12:00 [facility] Diastolic (mm Hg) 2015-06-09 06:12:00 [facility] Respitory Rate 2015-06-09 06:12:00 [facility] Heart Rate 2015-06-09 06:12:00 [facility] Temperature Oral (F) 2015-06-09 06:12:00 97.7 F [facility] Respitory Rate 2015-04-06 12:57:00 [facility] Systolic (mm Hg) 2015-04-06 12:57:00 [facility] Diastolic (mm Hg) 2015-04-06 12:57:00 [facility] Systolic (mm Hg) 2015-04-06 11:00:00 [facility] Diastolic (mm Hg) 2015-04-06 11:00:00 [facility] Respitory Rate 2015-04-06 11:00:00 [facility] Systolic (mm Hg) 2015-04-06 10:00:00 Isaak rial [facility] Diastolic (mm Hg) 2015-04-06 10:00:00 [facility] Respitory Rate 2015-04-06 10:00:00 [facility] Temperature Oral (F) 2015-04-06 09:00:00 98 F [facility] Temperature Oral (F) 2015-04-06 04:00:00 98 F [facility] Weight 2015-04-06 02:08:00 [facility] BMI Calculated 2015-04-06 02:08:00 [facility] Heart Rate 2015-04-06 02:08:00 [facility] Height 2015-04-06 02:08:00 154.94 cm [facility] Diastolic (mm Hg) 2014-04-17 00:30:00 [facility] Respitory Rate 2014-04-17 00:30:00 [facility] Systolic (mm Hg) 2014-04-17 00:30:00 Isaak rial [facility] Heart Rate 2014-04-17 00:30:00 [facility] Temperature Oral (F) 2014-04-17 00:30:00 98.4 F [facility] Respitory Rate 2014-04-16 21:00:00 [facility] Diastolic (mm Hg) 2014-04-16 21:00:00 [facility] Systolic (mm Hg) 2014-04-16 21:00:00 Isaak rial [facility] Temperature Oral (F) 2014-04-16 21:00:00 98.0 F [facility] Heart Rate 2014-04-16 21:00:00 [facility] Systolic (mm Hg) 2014-04-16 16:04:00 Isaak [facility] Temperature Oral (F) 2014-04-16 16:04:00 98.0 F [facility] Heart Rate 2014-04-16 16:04:00 [facility] Diastolic (mm Hg) 2014-04-16 16:04:00 [facility] Respitory Rate 2014-04-16 13:00:00 [facility] Weight 2014-04-12 19:42:00 [facility] BMI Calculated 2014-04-12 19:42:00 [facility] Height 2014-04-12 19:42:00 152.4 cm [facility] Weight 2014-04-12 15:41:00 [facility] BMI Calculated 2014-04-12 15:41:00 [facility] Height 2014-04-12 15:41:00 152.4 cm [facility] Weight 2012-06-22 17:39:00 [facility] Height 2012-06-22 17:39:00 152.40 cm [facility] Diastolic (mm Hg) 2012-06-11 19:41:00 [facility] Heart Rate 2012-06-11 19:41:00 [facility] Systolic (mm Hg) 2012-06-11 19:41:00 Isaak rial [facility] Systolic (mm Hg) 2012-06-11 17:20:00 Isaak [facility] Diastolic (mm Hg) 2012-06-11 17:20:00 [facility] Temperature Oral (F) 2012-06-11 16:25:00 99.0 F [facility] Diastolic (mm Hg) 2012-06-11 16:25:00 [facility] Systolic (mm Hg) 2012-06-11 16:25:00 [facility]ak [facility] Heart Rate 2012-06-11 16:25:00 [facility] Respitory Rate 2012-06-11 16:25:00 [facility] Temperature Oral (F) 2012-06-11 12:22:00 98.4 F [facility] Heart Rate 2012-06-11 12:22:00 [facility] Respitory Rate 2012-06-11 12:22:00 [facility] Respitory [facility] 2012-[facility] 2012-06-11 09:00:00 98.2 F [facility] Weight 2012-05-31 18:54:00 [facility] Height 2012-05-31 18:54:[address] [facility] Procedures Procedure Date / Time Performed Performing Clinician Sourc e Endarterectomy [facility] Plan of Care Planned Activity Planned Date Details Comments Source Future Scheduled 2023-02-12 COVID-19 [facility]ACCINE (#[facility]) [facility] Test 13:58:22 [code = COVID-19 VACCINE (#1)] Future Scheduled 2023-02-12 COLONOSCOPY SCREENING [facility] Test 13:58:22 [code = COLONOSCOPY SCREENING] Future Scheduled 2023-02-12 SHINGLES VACCINES (1 Met [facility] Test 13:58:22 of 2) [code = SHINGLES VACCINES (1 of 2)] Future Scheduled 2023-02-12 65+ [facility]CCAL [facility] Test 13:58:22 VACCINE (1 - PCV) [code = 65+ PNEUMOCOCCAL VACCINE (1 - PCV)] Future Scheduled 2023-02-12 INFLUENZA VACCINE [facility] Test 13:58:22 [code = INFLUENZA VACCINE] Future Scheduled 2022-12-16 COVID-19 VACCINE (#1) [facility] Test 14:23:32 [code = COVID-19 VACCINE (#1)] Future Scheduled 2022-12-16 COLONOSCOPY SCREENING [facility] Test 14:23:32 [code = COLONOSCOPY SCREENING] Future Scheduled 2022-12-16 SHINGLES VACCINES (1 Met [facility] Test 14:23:32 of 2) [code = SHINGLES VACCINES (1 of 2)] Future Scheduled 2022-12-16 65+ [facility]UMOCOCCAL [facility] Test 14:23:32 VACCINE (1 - PCV) [code = 65+ PNEUMOCOCCAL VACCINE (1 - PCV)] Future Scheduled 2022-12-16 INFLUENZA VACCINE [facility] Test 14:23:32 [code = INFLUENZA VACCINE] Future Scheduled 2022-12-16 COVID-19 VACCINE (#1) [facility] Test 14:23:32 [code = COVID-19 VACCINE (#1)] Future Scheduled 2022-12-16 COLONOSCOPY SCREENING [facility] Test 14:23:32 [code = COLONOSCOPY SCREENING] Future Scheduled 2022-12-16 SHINGLES VACCINES (1 Met [facility] Test 14:23:32 of 2) [code = SHINGLES VACCINES (1 of 2)] Future Scheduled 2022-12-16 65+ [facility]UMOCOCCAL [facility] Test 14:23:32 VACCINE (1 - PCV) [code = 65+ PNEUMOCOCCAL VACCINE (1 - PCV)] Future Scheduled 2022-12-16 INFLUENZA VACCINE Method [facility] Hospital Test 14:23:32 [code = INFLUENZA VACCINE] Future Scheduled 2022-08-30 COVID-19 VACCINE (#1) [facility] Test 06:08:20 [code = COVID-19 VACCINE (#1)] Future Scheduled 2022-08-30 COLONOSCOPY SCREENING [facility] Test 06:08:20 [code = COLONOSCOPY SCREENING] Future Scheduled 2022-08-30 SHINGLES VACCINES (1 Met [facility] Test 06:08:20 of 2) [code = SHINGLES VACCINES (1 of 2)] Future Scheduled 2022-08-30 65+ PNEUMOCOCCAL [facility] Test 06:08:20 VACCINE (1 - PCV) [code = 65+ PNEUMOCOCCAL VACCINE (1 - PCV)] Future Scheduled 2022-08-30 INFLUENZA VACCINE Method [facility] Test 06:08:20 [code = INFLUENZA VACCINE] Future Scheduled 2022-07-19 HEPATITIS B VACCINES Met [facility] Test 19:16:01 (1 of 3 - 3-dose series) [code = HEPATITIS B VACCINES (1 of 3 - 3-dose series)] Future Scheduled 2022-07-19 COVID-19 VACCINE (#1) [facility] Test 19:16:01 [code = COVID-19 VACCINE (#1)] Future Scheduled 2022-07-19 COLONOSCOPY SCREENING [facility] Test 19:16:01 [code = COLONOSCOPY SCREENING] Future Scheduled 2022-07-19 SHINGLES VACCINES (1 Met [facility] Test 19:16:01 of 2) [code = SHINGLES [...] Date/Time Type Type Clinicians Facility Department ID 2023-01-15 Outpatient [facility] [id number] [place] 11:06:39 [id number] [facility] 2023-01-06 Outpatient [facility] [id number] [place] 14:54:03 [id number] [facility] 2023-01-15 2023-01-15 Office [place]ena [facility] [id number] [place] 11:00:00 11:46:05 Visit Cassy ZULUAGA [id number] [place] [id number] 2023-01-15 2023-01-15 Outpatient [facility] [id number] [place] 11:00:00 11:46:05 [facility] 2022-12-17 2022-12-27 Inpatient E LOBO [facility] [id number] [facility] 02:57:00 20:30:00 JUANITO 2022-08-14 2022-08-18 [id number] 19:48:00 16:59:00 Jane 11 [facility] 2022-03-25 2022-03-25 Emergency EM Cm, [facility] [id number] [facility] 16:56:00 20:49:00 [facility] 2022-03-25 2022-03-25 Emergency EM Cm, HCANW HCANW [id number] [facility] 16:56:00 20:49:00 Román [id number] [facility] 2019-12-05 2019-12-06 Inpatient [facility] [id number] Memoria 15:17:39 20:00:00 pj Martell [address] 2019-12-05 2019-12-06 Inpatient E AMENA [facility] MED [id number] T 13:24:00 15:00:00 KEYLA GR 2019-11-18 2019-11-19 Emergency nullFlavo [facility] [id number] Memoria 23:53:49 05:18:00 pj Martell The 11 [facility] 2019-11-18 2019-11-18 Emergency E ABHINAV, TW MHTW 7511 MHTW 17:53:00 23:18:00 FCO 2019-10-20 2019-10-26 Inpatient nullFlavo [facility] [id number] Memoria 18:04:11 02:32:00 pj Martell The 10 [facility] 2019-10-21 2019-10-20 Inpatient E MHTW MED 7510 MHTW 14:53:00 19:36:00 2019-10-03 2019-10-05 Inpatient nullFlavo [facility] [id number] Memoria 19:36:06 23:00:00 pj Martell The 09 [facility] 2019-10-03 2019-10-03 Inpatient E MHTW MED [id number] MHTW 16:40:00 13:36:00 2018-09-08 2018-09-08 Emergency nullFlavo [facility] [id number] Memoria 01:21:00 05:22:00 pj Martell 08 [facility] 2018-09-07 2018-09-07 Emergency E MHSE MHSE 7508 19:21:00 19:21:00 [facility] 2018-05-31 2018-05-31 Emergency nullFlavo [facility] [id number] Memoria 18:38:00 20:52:00 pj Avila 07 [facility] 2016-12-10 2016-12-10 Emergency nullFlavo [facility] [id number] Memoria 06:34:00 10:45:00 pj Martell The 06 [facility] 2015-06-09 2015-06-09 EC nullFlavo [facility] [id number] Memoria 06:10:00 10:57:00 Emergency r Jasbir The 05 [facility] 2015-04-06 2015-04-06 EC nullFlavo [facility] [id number] Memoria 02:07:00 13:50:00 Emergency r Jasbir The 04 [facility] 2014-04-12 2014-04-17 Inpatient nullFlavo [facility] [id number] Memoria 15:37:00 01:00:00 r Jasbir The 03 [facility] 2012-06-22 2012-06-22 Emergency nullFlavo Stephon [id number] [facility] 12:37:00 15:22:00 [facility] 02 Hanna 2012-06-09 2012-06-11 Inpatient nullFlavo Not Sent [id number] [facility] 11:40:00 16:30:00 r 01 darlene Martell 2012-05-25 2012-05-25 OD CARLY CARROLL [id number] [facility] 09:09 09:09:00 00 darlene Martell Results Test Description Test Time Test Comments Results Result Comments Source GLUBED 2022-08-18 12:29:00 Test Item Value Reference Range Interpretation Comme nts GLUBED (test code = GLUBED) 165 MG/DL 70-105 H COMPREHENSIVE METABOLIC [id number] 08:25:00 Test Item Value Reference Range Interpretation [...] PHOSPHATASE (test code = ALKP) CBC W/AUTO [id number] 08:06:00 Test Item Value Reference Range Interpretation [...] = BA#) 0.0 x10 3/uL 0.0-0.1 N [id number] 06:04:00 Test Item Value Reference Range Interpretation Comments GLUBED (test code = GLUBED) 126 MG/DL 70-105 H - XR ABDOMEN [id number] 00:36:00 [facility] 1945 Sex: FPatient Name: MARIAH OQUENDO Unit No: [id number] EXAMS: CPT: [id number] XR ABDOMEN 1V 46781 ABDOMEN 1 VIEW: CLINICAL HISTORY: Abdominal pain [...] (0040) BATCH NO: N/A Name: MARIAH OQUENDO [facility] Phys: Jane Yadav MD [address] [place] : 1945 Age: 77 Sex: [place] [address] Loc: N.0560 1 ExamDate: 08/17/2022 Status: ADM IN PH: FAX: PAGE 1 Signed Report- XR ABDOMEN [id number] 22:34:00 [facility] : 1945 Sex: FPatient Name: MARIAH OQUENDO Unit No: [id number] EXAMS: CPT: [id number] XR ABDOMEN 1V 40704 ABDOMEN 1 VIEW: CLINICAL HISTORY: Abdominal pain COMPARISON: 08/16/2022 FINDINGS: Large amount of fecal material impacted in the rectum without change. Moderate diffuse gaseous distention of the colon is also unchanged. IMPRESSION:No interval change in colonic distention and fecal impaction in the rectum at 2234 Reported and signed by: Bart [facility]RIVERSIDE [facility]: Jane Rousseau MD; Dmitri Davidson MD Technologist: Tina Vega Time: DAP (Gy m2): Air Kerma(mGy): Trscr Dt/Tm: 08/17/2022 (2233) by:[email or web address] Orig Print D/T: S: 08/17/2022 (223) BATCH NO: N/A Name: MARIAH OQUENDO [facility] Phys: Jane Yadav MD [address] : 1945 Age: 77 Sex: F [place] [address] Loc: N.0560 1 Exam Date: 08/17/2022 Status: ADM IN PH: FAX: PAGE 1 Signed [id number] 20:56:00 Test Item Value Reference Range Interpretation Comments GLUBED (test code = GLUBED) 157 MG/DL 70-105 H [id number] 16:00:00 Test Item Value Reference Range Interpretation Comments GLUBED (test code = GLUBED) 202 MG/DL 70-105 H [id number] 11:09:00 Test Item Value Reference Range Interpretation Comments GLUBED (test code = GLUBED) 238 MG/DL 70-105 H [id number] 05:24:00 Test Item Value Reference Range Interpretation Comments GLUBED (test code = GLUBED) 115 MG/DL 70-105 H [id number] 23:01:00 Test Item Value Reference Range Interpretation Comments GLUBED (test code = GLUBED) 192 MG/DL 70-105 H - DUP VEIN UNI [id number] 22:52:00 [facility] : 1945 Sex: FPatient Name: MARIAH OQUENDO Unit No: [id number] EXAMS: CPT: [id number] [address] RIGHT UPPER EXTREMITY VENOUS DOPPLER ULTRASOUND: CLINICAL [...] thrombosis in the right upper extremity. at 2251 Reported and signed by: Bart Garcia MD CC: Jane Rousseau MD; Dmitri Davidson MD Technologist: KATHERYN Powell Probe: Trscr Dt/Tm: 08/16/2022 (2251) by:[email or web address] Orig Print D/T: S: 08/16/2022 (2254) BATCH NO: N/A Name: MARIAH OQUENDO [facility] Phys: Jane Yadav MD [address] [facility] : 1945 Age: 77 Sex: F [place] [address] Loc: N.0560 1 Exam Date: 08/16/2022 Status: ADM IN PH: FAX: PAGE 1 Signed ReportUA RFLX MICR CULT IF [id number] 17:22:00 Test Item Value Reference Range Interpretation [...] MUCU) Indication for culture: Dysuria/FrequencySpecimen Description: CATHETERIZED (STRAIGHT)[id number] 15:23:00 Test Item Value Reference Range Interpretation Comments GLUBED (test code = GLUBED) 174 MG/DL 70-105 H [id number] 11:10:00 Test Item Value Reference Range Interpretation Comments GLUBED (test code = GLUBED) 157 MG/DL 70-105 H [id number] 08:51:00 Test Item Value Reference Range Interpretation Comments GLUBED (test code = GLUBED) 142 MG/DL 70-105 H - XR ABDOMEN [id number] 07:52:00 [facility] : 1945 Sex: FPatient Name: MARIAH OQUENDO Unit No: [id number] EXAMS: CPT: [id number] XR ABDOMEN 1V 49649 EXAM: XR ABDOMEN 1 VIEW DATE: 08/16/2022 [...] (Gy m2):Air Kerma (mGy): Trscr Dt/Tm: 08/16/2022 (075) by:[email or web address] Orig Print D/T: S: 08/16/2022 (0755) BATCH NO: N/A Name: MARIAH OQUENDO [facility] Phys: Jane Yadav MD [address] [facility] : 1945 Age: 77 Sex: F [place] [address] Loc: N.0560 1 Exam Date: 08/16/2022 Status: ADM IN PH: FAX: PAGE 1 Signed [id number] 07:49:00 Test Item Value Reference Range Interpretation Comments GLUBED (test code = GLUBED) 65 MG/DL 70-105 L COMPREHENSIVE METABOLIC [id number] 07:29:00 Test Item Value Reference Range Interpretation [...] PHOSPHATASE (test code = ALKP) CBC W/AUTO [id number] 06:53:00 Test Item Value Reference Range Interpretation [...] = BA#) 0.0 x10 3/uL 0.0-0.1 N [id number] 20:59:00 Test Item Value Reference Range Interpretation Comments GLUBED (test code = GLUBED) 131 MG/DL 70-105 H [id number] 17:42:00 Test Item Value Reference Range Interpretation Comments GLUBED (test code = GLUBED) 129 MG/DL 70-105 H [id number] 15:24:00 Test Item Value Reference Range Interpretation Comments GLUBED (test code = GLUBED) 47 MG/DL 70-105 LL [id number] 19:17:00 Test Item Value Reference Range Interpretation Comments TROPONIN-I (test code = TROPI) <0.020 ng/mL 0.000-0.034 N - CT ABD PELVIS [id number] 18:58:00 [facility] : 1945 Sex: FPatient Name: MARIAH OQUENDO Unit No: [id number] EXAMS: CPT: [id number] CT ABD PELVIS W/CONT 18251 CLINICAL HISTORY: cough, vomiting. COMPARISON: none TECHNIQUE: [...] size, and/or utilization of iterative reconstruction technique. FI NDINGS: CHEST: Lines/Tubes/Devices: None Lungs and large airways: [...] ductal dilation. The gallbladder is unremarkable. Spleen: UnremarkablePancreas: No main pancreatic ductal dilation. Adrenal glands: Unremarkable Name: MARIAH OQUENDO [facility] Phys: Barbara Beaulieu MD [address] [place] : 1945 Age: 77 Sex: [place] [address] Loc: N.ERS Exam Date: 08/14/2022 Status: REG ER PH: FAX: PAGE 1 Signed Report (CONTINUED) Patient Name: MARIAH OQUENDO Unit No: [id number] EXAMS: CPT: [id number] CT ABD PELVIS W/CONT 05811 (Continued) Kidneys: The knees are normal in [...] (1900) BATCH NO: N/A Name: MARIAH OQUENDO [facility] Phys: Barbara Beaulieu MD [address] [place] : 1945 Age: 77 Sex: [place] [address] Loc: N.ERS Exam Date: 08/14/2022 Status: REG ER PH: FAX: PAGE 2 Signed Report- CT CHEST [id number] 18:58:00 [facility] : 1945 Sex: FPatient Name: MARIAH OQUENDO Unit No: [id number] EXAMS: CPT: [id number] CT CHEST W/CONTRAST 98501 CLINICAL HISTORY: cough, vomiting. COMPARISON: none TECHNIQUE: [...] ductal dilation. The gallbladder is unremarkable. Spleen: UnremarkablePancreas: No main pancreatic ductal dilation. Adrenal glands: Unremarkable Name: MARIAH OQUENDO [facility] ED Phys: Barbara Beaulieu MD [address] [place] : 1945 Age: 77 Sex: F [place] [address] Loc: N.ERS Exam Date: 08/14/2022 Status: REG ER PH: FAX: PAGE 1 Signed Report (CONTINUED) Patient Name: MARIAH OQUENDO Unit No: [id number] EXAMS: CPT: [id number] CTCHEST W/CONTRAST 46046 (Continued) Kidneys: The knees are normal in size and configuration. No hydronephrosis or nephrolithiasis. Scattered subcentimeter hypodense lesions within bilateral kidneys, too small to adequately characterize, likely representing small cysts. Lymph nodes/retroperitoneum: No lymphadenopathy. Vessels: Patent Bowel/Peritoneal cavity: Lack of oral contrast limits evaluation ofbowel. There is severe fecal burden within the [...] Otero MD; Dmitri Davidson MD Technologist: Ritchie Terrzaas CTDI: 7.67 DLP: 478.83 Trscr Dt/Tm: 08/14/2022 (1857) by:[email or web address] Orig Print D/T: S: 08/14/2022 (1900) BATCH NO: N/A Name: MARIAH OQUENDO [facility] Phys: Barbara Beaulieu MD [address] [facility] : 1945 Age: 77 Sex: [place] [address] Loc: N.ERS Exam Date: 08/14/2022 Status: REG ER PH: FAX: PAGE 2 Signed ReportBASIC METABOLIC [id number] 16:34:00 Test Item Value Reference Range Interpretation [...] the recommended for regino for GFRby the Natio nal Kidney Foundati on for Adults.The GFR will not calculate if th e sex is unknown or if thepatient's ag e is <18 years. CREATININE (test 1.02 mg/dL 0.44-1.03 N code = CREAT) CALCIUM (test code = 9.2 mg/dL 8.5-10.5 N CA) LIVER FUNCTION [id number] 16:34:00 Test Item Value Reference Range Interpretation [...] code = 57 U/L 42-121 N ALKP) [id number] 16:34:00 Test Item Value Reference Range Interpretation Comments LIPASE (test code = LIP) 30 IU/L 22-51 N [id number] 16:34:00 Test Item Value Reference Range Interpretation Comments MAGNESIUM (test code = MAG) 1.8 mg/dl 1.8-2.5 N HCG SERUM [id number] 15:45:00 Test Item Value Reference Range Interpretation Comments HCG SERUM QUAL NEGATIVE NEGATIVE This is a lisa litative (test code = HCGQL) screenin g test.The quantitative Bh cg may be helpful.Weakly positive results should be repeated in 48 hours. CBC W/AUTO [id number] 15:07:00 Test Item Value Reference Range Interpretation [...] 3/uL 0.0-0.1 N - XR CHEST 1 [id number] 14:44:00 [facility] : 1945 Sex: FPatient Name: MARIAH OQUENDO Unit No: [id number] EXAMS: CPT: [id number] XR CHEST 1 V 84331 EXAM: SINGLE VIEW OF THE CHEST HISTORY: Chest pain. COMPARISON: X-ray 03/25/2022. FINDINGS: Lines/tubes: None. Lungs/Pleura: No focal airspace opacity. Faint fissural line at the right midlung is unchanged. Pulmonary vasculature appears within normal limits. No pleural effusion or pneumothorax. Heart/mediastinum:Cardiomediastinal silhouette is within normal limits. Bones/soft tissues: Within normal limits. IMPRESSION: Stable exam. No acute cardiopulmonary findings. at 1444 Reported and signed by: JOSEPHINE VALLES MD CC: Barbara Otero MD; Dmitri Davidson MD Technologist: Merry Vega Time: DAP (Gy m2): Air Kerma (mGy): Trscr Dt/Tm: 08/14/2022 (1446) by:[email or web address] Orig Print D/T: S: 08/14/2022 (1447) BATCH NO: N/A Name: MARIAH OQUENDO [facility] Phys: Barbara Beaulieu MD [address] : 1945 Age: 77 Sex: F [place] [address] Loc: N.ERS Exam Date: 08/14/2022 Status: PRE ER PH: FAX: PAGE 1 Signed Report- XR CHEST 1 [id number] 17:59:00 [facility] : 1945 Sex: FPatient Name: MARIAH OQUENDO Unit No: [id number] EXAMS: CPT: [id number] XR CHEST 1 V 82920 AP CHEST 1 VIEW COMPARISON: None HISTORY: RIGHT SHOULDER PAIN S/P BEING LIFTED FINDINGS: Cardiomediastinal silhouette is normal. Aortic arch calcifications. No focal lung consolidation. There is no pleural effusion. There is no pneumothorax. No acute bony abnormality. IMPRESSION: No acute cardiopulmonary findings. at 1759 Reported and signed by: Josias Cantu MD CC: Ramu DUNAWAY Technologist: Rohan Veag Time: DAP (Gy m2): Air Kerma (mGy): Trscr Dt/Tm: 03/25/2022 (1758) by:[email or web address] Orig Print D/T: S: 03/25/2022 (1801) BATCH NO: N/A Name: MARIAH OQUENDO [facility] Phys: Ramu Rangel [address] [place] : 1945 Age: 76 Sex: F [place] [address] Loc: N.ERS Exam Date: 03/25/2022 Status: REG ER PH: FAX: PAGE 1 Signed Report- XR HUMERUS 2 + V [id number] 17:53:00 [facility] : 1945 Sex: FPatient Name: MARIAH OQUENDO Unit No: [id number] EXAMS: CPT: [id number] XR HUMERUS 2 + V RT [address] EXAM:XR RIGHT HUMERUS 2 VIEWS EXAM: XR [...] (1755) BATCH NO: N/A Name: MARIAH OQUENDO [facility] Phys: Ramu Mendoza [address] [place] [address] : 1945 Age: 76 [place]: [place] [address] Loc: N.ERS Exam Date: 03/25/2022 Status: REG ER PH: FAX: PAGE 1 Signed Report- XR SHOULDER 2 + V [id number] 17:53:00 [facility] : 1945 Sex: FPatient Name: MARIAH OQUENDO Unit No: [id number] EXAMS: CPT: [id number] XR SHOULDER 2 + V RT [address] EXAM: XR RIGHT HUMERUS 2 VIEWS EXAM: XR RIGHT SHOULDER 3 VIEWS DATE: 03/25/2022 5:12 PM INDICATION: Right shoulder pain status post being listed COMPARISON: None. TECHNIQUE: 2 views of the humerus, 3 viewsof the shoulder FINDINGS: Humerus: No acute fracture [...] (1755) BATCH NO: N/A Name: MARIAH OQUENDO [facility] Phys: Ramu Rangel [address] : 1945 Age: 76 Sex: F [place] [address] [facility] No: [id number] Loc: N.ERS Exam Date: 03/25/2022 Status: REG ER PH: FAX: PAGE 1 [facility]2020-03-24 06:29:50 Test Item Value Reference Range Interpretation Comments Glucose Lvl (test code = Glucose Lvl) 140 70-99 [facility]2020-03-24 06:29:50 Test Item Value Reference Range Interpretation Comments BUN (test code = BUN) 22 7-22 [place] [id number] 06:29:50 Test Item Value Reference Range Interpretation Comments Creatinine Lvl (test code = Creatinine 0.90 0.50-1.40 Lvl) [facility]2020-03-24 06:29:50 Test Item Value Reference Range Interpretation Comments Sodium Lvl (test code = Sodium Lvl) 138 135-145 [place] [id number] 06:29:50 Test Item Value Reference Range Interpretation Comments Potassium Lvl (test code = Potassium 4.4 3.5-5.1 Lvl) [facility]2020-03-24 06:29:50 Test Item Value Reference Range Interpretation Comments Chloride Lvl (test code = Chloride Lvl) 110 95-109 [facility]2020-03-24 06:29:50 Test Item Value Reference Range Interpretation Comments CO2 (test code = CO2) 25 24-32 [place] [id number] 06:29:50 Test Item Value Reference Range Interpretation Comments Calcium Lvl (test code = Calcium Lvl) 8.5 8.5-10.5 [place] [id number] 06:29:50 Test Item Value Reference Range Interpretation Comments Total Protein (test code = Total 5.5 6.4-8.4 Protein) [facility]2020-03-24 06:29:50 Test Item Value Reference Range Interpretation Comments Albumin Lvl (test code = Albumin Lvl) 2.4 3.5-5.0 [place] 536200-03-24 06:29:50 Test Item Value Reference Range Interpretation Comments ALT (test code = ALT) 13 See_Comment [Auto mated message] The system which ge nerated this result transmit thelma reference range : <=65. The reference range was not used to interpr et this result as zana l/abnormal. [facility] [employer] [id number] 06:29:50 Test Item Value Reference Range Interpretation Comments AST (test code = AST) 11 See_Comment [Auto mated message] The system which ge nerated this result transmit thelma reference range : <=37. The reference range was not used to interpr et this result as zana l/abnormal. [facility] [employer] [id number] 06:29:50 Test Item Value Reference Range Interpretation Comments Alk Phos (test code = Alk Phos) 43 39-136 [facility] [employer] [id number] 06:29:50 Test Item Value Reference Range Interpretation Comments Bili Total (test code = Bili Total) 0.1 0.2-1.3 [facility] [employer] [id number] 06:29:50 Test Item Value Reference Range Interpretation Comments AGAP (test code = AGAP) 7.4 10.0-20.0 [facility] [employer] [id number] 06:29:50 Test Item Value Reference Range Interpretation Comments B/C Ratio (test code = B/C Ratio) 24 1 6-25 [facility] [employer] [id number] 06:29:50 Test Item Value Reference Range Interpretation Comments Globulin (test code = Globulin) 3.1 2.7-4.2 [facility] [employer] [id number] 06:29:50 Test Item Value Reference Range Interpretation Comments A/G Ratio (test code = A/G Ratio) 0.8 1 0.7-1.6 [facility] [employer] [id number] 06:29:50 Test Item Value Reference Range Interpretation Comments eGFR (test code = eGFR) 64 [facility] [id number] 06:29:50 Test Item Value Reference Range Interpretation Comments Segs (test code = Segs) 83.6 45.0-75.0 [facility] [id number] 06:29:50 Test Item Value Reference Range Interpretation Comments Lymphocytes (test code = Lymphocytes) 7.7 20.0-40.0 [facility] [id number] 06:29:50 Test Item Value Reference Range Interpretation Comments Monocytes (test code = Monocytes) 4.5 2.0-12.0 [place] 834170-03-24 06:29:50 Test Item Value Reference Range Interpretation Comments Eosinophils (test code = 3.8 See_Comment [A utomated message] The Eosinophils) system which ge nerated this result tra nsmitted reference range : <=4.0. The reference r eric was not used to int erpret this result as normal/abnormal . [place] 834170-03-24 06:29:50 Test Item Value Reference Range Interpretation Comments Basophils (test code = 0.4 See_Comment [Aut omated message] The Basophils) system which ge nerated this result tra nsmitted reference range : <=1.0. The reference r eric was not used to int erpret this result as normal/abnormal . [facility] [id number] 06:29:50 Test Item Value Reference Range Interpretation Comments Neutrophils # (test code = Neutrophils 6.2 1.5-8.1 #) [place] 834170-03-24 06:29:50 Test Item Value Reference Range Interpretation Comments Lymphocytes # (test code = Lymphocytes 0.6 1.0-5.5 #) [place] 834170-03-24 06:29:50 Test Item Value Reference Range Interpretation Comments Monocytes # (test code 0.3 See_Comment [Aut omated message] The = Monocytes #) system which generated this result tra nsmitted reference range : <=0.8. The reference r eirc was not used to int erpret this result as normal/abnormal . [place] 834170-03-24 06:29:50 Test Item Value Reference Range Interpretation Comments Eosinophils # (test code 0.3 See_Comment [A utomated message] The = Eosinophils #) system whic h generated this result tra nsmitted reference range : <=0.5. The reference r eric was not used to int erpret this result as normal/abnormal . [place] 834170-03-24 06:29:50 Test Item Value Reference Range Interpretation Comments WBC (test code = WBC) 7.5 3.7-10.4 [place] 834170-03-24 06:29:50 Test Item Value Reference Range Interpretation Comments RBC (test code = RBC) 3.31 4.20-5.40 [place] 834170-03-24 06:29:50 Test Item Value Reference Range Interpretation Comments Hgb (test code = Hgb) 8.5 12.0-16.0 [place] [address]-03-24 06:29:50 Test Item Value Reference Range Interpretation Comments Hct (test code = Hct) 26.9 36.0-48.0 [place] [address]-03-24 06:29:50 Test Item Value Reference Range Interpretation Comments MCV (test code = MCV) 81.5 80.0-98.0 [place] [address]-03-24 06:29:50 Test Item Value Reference Range Interpretation Comments MCH (test code = MCH) 25.7 pg 27.0-31.0 [place] [address]-03-24 06:29:50 Test Item Value Reference Range Interpretation Comments MCHC (test code = MCHC) 31.6 32.0-36.0 [place] 834170-03-24 06:29:50 Test Item Value Reference Range Interpretation Comments RDW (test code = RDW) 14.6 11.5-14.5 [facility] [id number] 06:29:50 Test Item Value Reference Range Interpretation Comments Platelet (test code = Platelet) 257 133-450 [facility] [id number] 06:29:50 Test Item Value Reference Range Interpretation Comments MPV (test code = MPV) 8.9 7.4-10.4 [facility]2020-03-24 06:29:50 Test Item Value Reference Range Interpretation Comments Glucose Lvl (test code = Glucose Lvl) 140 70-99 [facility]2020-03-24 06:29:50 Test Item Value Reference Range Interpretation Comments BUN (test code = BUN) 22 7-22 [place] 536200-03-24 06:29:50 Test Item Value Reference Range Interpretation Comments Creatinine Lvl (test code = Creatinine 0.90 0.50-1.40 Lvl) [facility]2020-03-24 06:29:50 Test Item Value Reference Range Interpretation Comments Sodium Lvl (test code = Sodium Lvl) 138 135-145 [place] [address]-03-24 06:29:50 Test Item Value Reference Range Interpretation Comments Potassium Lvl (test code = Potassium 4.4 3.5-5.1 Lvl) [place] [address]-03-24 06:29:50 Test Item Value Reference Range Interpretation Comments Chloride Lvl (test code = Chloride Lvl) 110 95-109 [facility] Center[facility] WorksTRAVIS VIL[facility] [id number] 06:29:50 Test Item Value Reference Range Interpretation Comments CO2 (test code = CO2) 25 24-32 [place] [address]-03-24 06:29:50 Test Item Value Reference Range Interpretation Comments Calcium Lvl (test code = Calcium Lvl) 8.5 8.5-10.5 [facility] CenterCir[facility] WorksTRAVIS VILLE [id number] 06:29:50 Test Item Value Reference Range Interpretation Comments Total Protein (test code = Total 5.5 6.4-8.4 Protein) [place] [address]-03-24 06:29:50 Test Item Value Reference Range Interpretation Comments Albumin Lvl (test code = Albumin Lvl) 2.4 3.5-5.0 [place] [address]-03-24 06:29:50 Test Item Value Reference Range Interpretation Comments ALT (test code = ALT) 13 See_Comment [Auto mated message] The system which ge nerated this result transmit thelma reference range : <=65. The reference range was not used to interpr et this result as zana l/abnormal. [facility] [id number] 06:29:50 Test Item Value Reference Range Interpretation Comments AST (test code = AST) 11 See_Comment [Auto mated message] The system which ge nerated this result transmit thelma reference range : <=37. The reference range was not used to interpr et this result as zana l/abnormal. [facility] Center[facility] [id number] 06:29:50 Test Item Value Reference Range Interpretation Comments Alk Phos (test code = Alk Phos) 43 39-136 [place] [address]-03-24 06:29:50 Test Item Value Reference Range Interpretation Comments Bili Total (test code = Bili Total) 0.1 0.2-1.3 [place] [address]-03-24 06:29:50 Test Item Value Reference Range Interpretation Comments AGAP (test code = AGAP) 7.4 10.0-20.0 [place] [address]-03-24 06:29:50 Test Item Value Reference Range Interpretation Comments B/C Ratio (test code = B/C Ratio) 24 1 6-25 [place] [address]-03-24 06:29:50 Test Item Value Reference Range Interpretation Comments Globulin (test code = Globulin) 3.1 2.7-4.2 [place] [address]-03-24 06:29:50 Test Item Value Reference Range Interpretation Comments A/G Ratio (test code = A/G Ratio) 0.8 1 0.7-1.6 [place] [address]-03-24 06:29:50 Test Item Value Reference Range Interpretation Comments eGFR (test code = eGFR) 64 [place] [address]-03-24 06:29:50 Test Item Value Reference Range Interpretation Comments Segs (test code = Segs) 83.6 45.0-75.0 [place] [address]-03-24 06:29:50 Test Item Value Reference Range Interpretation Comments Lymphocytes (test code = Lymphocytes) 7.7 20.0-40.0 [place] [address]-03-24 06:29:50 Test Item Value Reference Range Interpretation Comments Monocytes (test code = Monocytes) 4.5 2.0-12.0 [place] [address]-03-24 06:29:50 Test Item Value Reference Range Interpretation Comments Eosinophils (test code = 3.8 See_Comment [A utomated message] The Eosinophils) system which ge nerated this result tra nsmitted reference range : <=4.0. The reference r eric was not used to int erpret this result as normal/abnormal . [place] [address]-03-24 06:29:50 Test Item Value Reference Range Interpretation Comments Basophils (test code = 0.4 See_Comment [Aut omated message] The Basophils) system which ge nerated this result tra nsmitted reference range : <=1.0. The reference r eric was not used to int erpret this result as normal/abnormal . [place] [address]-03-24 06:29:50 Test Item Value Reference Range Interpretation Comments Neutrophils # (test code = Neutrophils 6.2 1.5-8.1 #) [facility] [id number] 06:29:50 Test Item Value Reference Range Interpretation Comments Lymphocytes # (test code = Lymphocytes 0.6 1.0-5.5 #) [facility] TempleBngujfzGJRUCPLUHW1931-11-83 06:29:50 Test Item Value Reference Range Interpretation Comments Monocytes # (test code 0.3 See_Comment [Aut omated message] The = Monocytes #) system which generated this result tra nsmitted reference range : <=0.8. The reference r eric was not used to int erpret this result as normal/abnormal . [facility] TempleKhhzgcnANZBJWVCQB3164-91-54 06:29:50 Test Item Value Reference Range Interpretation Comments Eosinophils # (test code 0.3 See_Comment [A utomated message] The = Eosinophils #) system whic h generated this result tra nsmitted reference range : <=0.5. The reference r eric was not used to int erpret this result as normal/abnormal . [facility] TempleYosaabkFJBEYKWDHM3192-33-04 06:29:50 Test Item Value Reference Range Interpretation Comments WBC (test code = WBC) 7.5 3.7-10.4 [facility] TempleTeyswacAMAVXTTKJO3775-96-59 06:29:50 Test Item Value Reference Range Interpretation Comments RBC (test code = RBC) 3.31 4.20-5.40 [facility] TempleGewfwvvLSHICTGQTF4917-25-57 06:29:50 Test Item Value Reference Range Interpretation Comments Hgb (test code = Hgb) 8.5 12.0-16.0 [facility] TempleDtkxsitFSXOTNQJVB8570-60-07 06:29:50 Test Item Value Reference Range Interpretation Comments Hct (test code = Hct) 26.9 36.0-48.0 [place] 834170-03-24 06:29:50 Test Item Value Reference Range Interpretation Comments MCV (test code = MCV) 81.5 80.0-98.0 [facility] TempleZwiysunJBWOMHYZUB5643-82-88 06:29:50 Test Item Value Reference Range Interpretation Comments MCH (test code = MCH) 25.7 pg 27.0-31.0 [facility] TempleUctnsgqNBYBTZCUFX7026-97-78 06:29:50 Test Item Value Reference Range Interpretation Comments MCHC (test code = MCHC) 31.6 32.0-36.0 [place] [address]-03-24 06:29:50 Test Item Value Reference Range Interpretation Comments RDW (test code = RDW) 14.6 11.5-14.5 [place] [address]-03-24 06:29:50 Test Item Value Reference Range Interpretation Comments Platelet (test code = Platelet) 257 133-450 [address]03-24 06:29:50 Test Item Value Reference Range Interpretation Comments MPV (test code = MPV) 8.9 7.4-10.4 [place] 536200-03-24 06:29:50 Test Item Value Reference Range Interpretation Comments Glucose Lvl (test code = Glucose Lvl) 140 70-99 [place] [address]-03-24 06:29:50 Test Item Value Reference Range Interpretation Comments BUN (test code = BUN) 22 7-22 [place] [address]-03-24 06:29:50 Test Item Value Reference Range Interpretation Comments Creatinine Lvl (test code = Creatinine 0.90 0.50-1.40 Lvl) [place] 536200-03-24 06:29:50 Test Item Value Reference Range Interpretation Comments Sodium Lvl (test code = Sodium Lvl) 138 135-145 [place] [address]-03-24 06:29:50 Test Item Value Reference Range Interpretation Comments Potassium Lvl (test code = Potassium 4.4 3.5-5.1 Lvl) [place] 536200-03-24 06:29:50 Test Item Value Reference Range Interpretation Comments Chloride Lvl (test code = Chloride Lvl) 110 95-109 [place] 536200-03-24 06:29:50 Test Item Value Reference Range Interpretation Comments CO2 (test code = CO2) 25 24-32 [place] [address]-03-24 06:29:50 Test Item Value Reference Range Interpretation Comments Calcium Lvl (test code = Calcium Lvl) 8.5 8.5-10.5 [place] 536200-03-24 06:29:50 Test Item Value Reference Range Interpretation Comments Total Protein (test code = Total 5.5 6.4-8.4 Protein) [place] 536200-03-24 06:29:50 Test Item Value Reference Range Interpretation Comments Albumin Lvl (test code = Albumin Lvl) 2.4 3.5-5.0 [facility] [employer] [id number] 06:29:50 Test Item Value Reference Range Interpretation Comments ALT (test code = ALT) 13 See_Comment [Auto mated message] The system which ge nerated this result transmit thelma reference range : <=65. The reference range was not used to interpr et this result as zana l/abnormal. [facility] [employer] [id number] 06:29:50 Test Item Value Reference Range Interpretation Comments AST (test code = AST) 11 See_Comment [Auto mated message] The system which ge nerated this result transmit thelma reference range : <=37. The reference range was not used to interpr et this result as zana l/abnormal. [facility] [employer] [id number] 06:29:50 Test Item Value Reference Range Interpretation Comments Alk Phos (test code = Alk Phos) 43 39-136 [facility] [employer] [id number] 06:29:50 Test Item Value Reference Range Interpretation Comments Bili Total (test code = Bili Total) 0.1 0.2-1.3 [facility] [employer] [id number] 06:29:50 Test Item Value Reference Range Interpretation Comments AGAP (test code = AGAP) 7.4 10.0-20.0 [facility] [employer] [id number] 06:29:50 Test Item Value Reference Range Interpretation Comments B/C Ratio (test code = B/C Ratio) 24 1 6-25 [facility] [employer] [id number] 06:29:50 Test Item Value Reference Range Interpretation Comments Globulin (test code = Globulin) 3.1 2.7-4.2 [facility] [employer] [id number] 06:29:50 Test Item Value Reference Range Interpretation Comments A/G Ratio (test code = A/G Ratio) 0.8 1 0.7-1.6 [facility] [employer] [id number] 06:29:50 Test Item Value Reference Range Interpretation Comments eGFR (test code = eGFR) 64 [facility] CenterBmeqcehBGAJHRNAZD1474-17-48 06:29:50 Test Item Value Reference Range Interpretation Comments Segs (test code = Segs) 83.6 45.0-75.0 [facility] XytdrwkRWQTRWDWFG5912-32-90 06:29:50 Test Item Value Reference Range Interpretation Comments Lymphocytes (test code = Lymphocytes) 7.7 20.0-40.0 [place] 834170-03-24 06:29:50 Test Item Value Reference Range Interpretation Comments Monocytes (test code = Monocytes) 4.5 2.0-12.0 [facility] TempleWxuqyscDNYBXRHCFT5980-49-20 06:29:50 Test Item Value Reference Range Interpretation Comments Eosinophils (test code = 3.8 See_Comment [A utomated message] The Eosinophils) system which ge nerated this result tra nsmitted reference range : <=4.0. The reference r eric was not used to int erpret this result as normal/abnormal . [place] 834170-03-24 06:29:50 Test Item Value Reference Range Interpretation Comments Basophils (test code = 0.4 See_Comment [Aut omated message] The Basophils) system which ge nerated this result tra nsmitted reference range : <=1.0. The reference r eric was not used to int erpret this result as normal/abnormal . [facility] TempleTsdufwrWSGSOPZWOG5381-12-90 06:29:50 Test Item Value Reference Range Interpretation Comments Neutrophils # (test code = Neutrophils 6.2 1.5-8.1 #) [facility] TempleEosxruuWYXIQNMEAJ6568-34-65 06:29:50 Test Item Value Reference Range Interpretation Comments Lymphocytes # (test code = Lymphocytes 0.6 1.0-5.5 #) [facility] TempleSdjninlFJZZGEIRNI3307-73-15 06:29:50 Test Item Value Reference Range Interpretation Comments Monocytes # (test code 0.3 See_Comment [Aut omated message] The = Monocytes #) system which generated this result tra nsmitted reference range : <=0.8. The reference r eric was not used to int erpret this result as normal/abnormal . [facility] TempleSwpjkqkWRCWCDLCFC7208-18-44 06:29:50 Test Item Value Reference Range Interpretation Comments Eosinophils # (test code 0.3 See_Comment [A utomated message] The = Eosinophils #) system whic h generated this result tra nsmitted reference range : <=0.5. The reference r eric was not used to int erpret this result as normal/abnormal . [facility] TempleSiqeozaWCGLZZLZGF4706-95-60 06:29:50 Test Item Value Reference Range Interpretation Comments WBC (test code = WBC) 7.5 3.7-10.4 [facility] TempleZkbmgxrPGWZCZHGQK6542-62-12 06:29:50 Test Item Value Reference Range Interpretation Comments RBC (test code = RBC) 3.31 4.20-5.40 [facility] TemplePospanpEQNCKARJGX4319-97-56 06:29:50 Test Item Value Reference Range Interpretation Comments Hgb (test code = Hgb) 8.5 12.0-16.0 [facility] TempleUdoucqhUHZLQQIFMU3776-78-46 06:29:50 Test Item Value Reference Range Interpretation Comments Hct (test code = Hct) 26.9 36.0-48.0 [facility] TempleJhatxmgDTXEOBEPSV8682-43-33 06:29:50 Test Item Value Reference Range Interpretation Comments MCV (test code = MCV) 81.5 80.0-98.0 [facility] TempleEnzbqgzYIVULGYZNE9987-95-11 06:29:50 Test Item Value Reference Range Interpretation Comments MCH (test code = MCH) 25.7 pg 27.0-31.0 [facility] TempleGtmimjdXOBIXOTAOL0726-21-68 06:29:50 Test Item Value Reference Range Interpretation Comments MCHC (test code = MCHC) 31.6 32.0-36.0 [facility] [id number] 06:29:50 Test Item Value Reference Range Interpretation Comments RDW (test code = RDW) 14.6 11.5-14.5 [facility] TempleImuhnsiRVMPJEPKQK1581-21-55 06:29:50 Test Item Value Reference Range Interpretation Comments Platelet (test code = Platelet) 257 133-450 [facility] T[id number] 06:29:50 Test Item Value Reference Range Interpretation Comments MPV (test code = MPV) 8.9 7.4-10.4 [facility]2020-03-23 18:47:00 Test Item Value Reference Range Interpretation Comments Source Respiratory Nasophrngl Swb Panel PCR (test code = *NA*(12/05/19 1:47 PM) Source Respiratory Panel PCR) [facility]2020-03-23 18:47:00 Test Item Value Reference Range Interpretation Comments Influenza A PCR (test Negative *NA*(12/05/19 code = Influenza A PCR) 1:47 PM) [place] 325230-03-23 18:47:00 Test Item Value Reference Range Interpretation Comments Influenza B PCR (test Negative *NA*(12/05/19 code = Influenza B PCR) 1:47 PM) [facility] [id number] 18:47:00 Test Item Value Reference Range Interpretation Comments RSV PCR (test code = Negative *NA*(12/05/19 RSV PCR) 1:47 PM) [facility]2020-03-23 18:47:00 Test Item Value Reference Range Interpretation Comments Source Respiratory Nasophrngl Swb Panel PCR (test code = *NA*(12/05/19 1:47 PM) Source Respiratory Panel PCR) [facility]2020-03-23 18:47:00 Test Item Value Reference Range Interpretation Comments Influenza A PCR (test Negative *NA*(12/05/19 code = Influenza A PCR) 1:47 PM) [facility]2020-03-23 18:47:00 Test Item Value Reference Range Interpretation Comments Influenza B PCR (test Negative *NA*(12/05/19 code = Influenza B PCR) 1:47 PM) [facility]2020-03-23 18:47:00 Test Item Value Reference Range Interpretation Comments RSV PCR (test code = Negative *NA*(12/05/19 RSV PCR) 1:47 PM) [facility]2020-03-23 18:47:00 Test Item Value Reference Range Interpretation Comments Source Respiratory Nasophrngl Swb Panel PCR (test code = *NA*(12/05/19 1:47 PM) Source Respiratory Panel PCR) [facility]2020-03-23 18:47:00 Test Item Value Reference Range Interpretation Comments Influenza A PCR (test Negative *NA*(12/05/19 code = Influenza A PCR) 1:47 PM) [place] [address]-03-23 18:47:00 Test Item Value Reference Range Interpretation Comments Influenza B PCR (test Negative *NA*(12/05/19 code = Influenza B PCR) 1:47 PM) [facility]2020-03-23 18:47:00 Test Item Value Reference Range Interpretation Comments RSV PCR (test code = Negative *NA*(12/05/19 RSV PCR) 1:47 PM) [facility]Cam[facility] [id number] 16:26:00 Test Item Value Reference Range Interpretation Comments Ferritin Lvl (test code = Ferritin Lvl) [address] [facility] [id number] 16:26:00 Test Item Value Reference Range Interpretation Comments Total CK (test code = Total CK) 24 12-191 [facility] [id number] 16:26:00 Test Item Value Reference Range Interpretation Comments Troponin-I (test code no gt See_Comment [Auto mated message] The = Troponin-I) system which g enerated this result transmit thelma reference range : <=0.40. The reference r eric was not used to interpr et this result as zana l/abnormal. [facility] [id number] 16:26:00 Test Item Value Reference Range Interpretation Comments Procalcitonin Lvl (test 1.36 See_Comment [Au tomated message] code = Procalcitonin Lvl) Th e system which generated this result transmitted ref erence range: <=0.10. The reference range was not used to interpr et this result as normal/abnormal . [facility] Center[facility] [id number] 16:26:00 Test Item Value Reference Range Interpretation Comments Glucose Lvl (test code = Glucose Lvl) 164 70-[address] [facility] [id number] 16:26:00 Test Item Value Reference Range Interpretation Comments BUN (test code = BUN) 14 7-22 [facility] [id number] 16:26:00 Test Item Value Reference Range Interpretation Comments Creatinine Lvl (test code = Creatinine 0.75 0.50-1.40 Lvl) [facility] [id number] 16:26:00 Test Item Value Reference Range Interpretation Comments Sodium Lvl (test code = Sodium Lvl) 134 135-145 [facility] [id number] 16:26:00 Test Item Value Reference Range Interpretation Comments Potassium Lvl (test code = Potassium 4.3 3.5-5.1 Lvl) [facility] [id number] 16:26:00 Test Item Value Reference Range Interpretation Comments Chloride Lvl (test code = Chloride Lvl) 104 95-109 [facility] [id number] 16:26:00 Test Item Value Reference Range Interpretation Comments CO2 (test code = CO2) 25 24-32 [facility] [id number] 16:26:00 Test Item Value Reference Range Interpretation Comments Calcium Lvl (test code = Calcium Lvl) 9.1 8.5-10.5 [facility] [id number] 16:26:00 Test Item Value Reference Range Interpretation Comments Total Protein (test code = Total 6.8 6.4-8.4 Protein) [facility] [id number] 16:26:00 Test Item Value Reference Range Interpretation Comments Albumin Lvl (test code = Albumin Lvl) 3.0 3.5-5.0 [facility] [employer] [id number] 16:26:00 Test Item Value Reference Range Interpretation Comments ALT (test code = ALT) 15 See_Comment [Auto mated message] The system which ge nerated this result transmit thelma reference range : <=65. The reference range was not used to interpr et this result as zana l/abnormal. [facility] [employer] [id number] 16:26:00 Test Item Value Reference Range Interpretation Comments AST (test code = AST) 11 See_Comment [Auto mated message] The system which ge nerated this result transmit thelma reference range : <=37. The reference range was not used to interpr et this result as zana l/abnormal. [facility] [employer] [id number] 16:26:00 Test Item Value Reference Range Interpretation Comments Alk Phos (test code = Alk Phos) 58 39-136 [facility] [employer] [id number] 16:26:00 Test Item Value Reference Range Interpretation Comments Bili Total (test code = Bili Total) 0.2 0.2-1.3 [facility] [employer] [id number] 16:26:00 Test Item Value Reference Range Interpretation Comments AGAP (test code = AGAP) 9.3 10.0-20.0 [facility] [id number] 16:26:00 Test Item Value Reference Range Interpretation Comments B/C Ratio (test code = B/C Ratio) 19 1 6-25 [facility] [employer] [id number] 16:26:00 Test Item Value Reference Range Interpretation Comments Globulin (test code = Globulin) 3.8 2.7-4.2 [place] 536200-03-23 16:26:00 Test Item Value Reference Range Interpretation Comments A/G Ratio (test code = A/G Ratio) 0.8 1 0.7-1.6 [place] 536200-03-23 16:26:00 Test Item Value Reference Range Interpretation Comments eGFR (test code = eGFR) 79 [place] 536200-03-23 16:26:00 Test Item Value Reference Range Interpretation Comments Lactic Acid Lvl (test code = Lactic 0.8 0.5-2.2 Acid Lvl) [place] 536200-03-23 16:26:00 Test Item Value Reference Range Interpretation Comments LDH (test code = LDH) 211 98-192 [place] [id number] 16:26:00 Test Item Value Reference Range Interpretation Comments WBC (test code = WBC) 12.3 3.7-10.4 [place] [address]-03-23 16:26:00 Test Item Value Reference Range Interpretation Comments RBC (test code = RBC) 3.87 4.20-5.40 [place] [address]-03-23 16:26:00 Test Item Value Reference Range Interpretation Comments Hgb (test code = Hgb) 9.9 12.0-16.0 [place] [address]-03-23 16:26:00 Test Item Value Reference Range Interpretation Comments Hct (test code = Hct) 31.5 36.0-48.0 [place] [address]-03-23 16:26:00 Test Item Value Reference Range Interpretation Comments MCV (test code = MCV) 81.2 80.0-98.0 [place] [address]-03-23 16:26:00 Test Item Value Reference Range Interpretation Comments MCH (test code = MCH) 25.5 pg 27.0-31.0 [place] [address]-03-23 16:26:00 Test Item Value Reference Range Interpretation Comments MCHC (test code = MCHC) 31.4 32.0-36.0 [place] [address]-03-23 16:26:00 Test Item Value Reference Range Interpretation Comments RDW (test code = RDW) 14.7 11.5-14.5 [place] 834170-03-23 16:26:00 Test Item Value Reference Range Interpretation Comments Platelet (test code = Platelet) 316 133-450 [place] [address]-03-23 16:26:00 Test Item Value Reference Range Interpretation Comments MPV (test code = MPV) 8.8 7.4-10.4 [place] [address]-03-23 16:26:00 Test Item Value Reference Range Interpretation Comments PT (test code = PT) 14.0 s 12.0-14.7 [place] [address]-03-23 16:26:00 Test Item Value Reference Range Interpretation Comments INR (test code = INR) 1.08 1 0.85-1.17 [place] [address]-03-23 16:26:00 Test Item Value Reference Range Interpretation Comments PTT (test code = PTT) 26.0 s 22.9-35.8 [place] [address]-03-23 16:26:00 Test Item Value Reference Range Interpretation Comments Segs (test code = Segs) 94.6 45.0-75.0 [place] [address]-03-23 16:26:00 Test Item Value Reference Range Interpretation Comments Lymphocytes (test code = Lymphocytes) 1.5 20.0-40.0 [place] [address]-03-23 16:26:00 Test Item Value Reference Range Interpretation Comments Monocytes (test code = Monocytes) 2.9 2.0-12.0 [place] [address]-03-23 16:26:00 Test Item Value Reference Range Interpretation Comments Eosinophils (test code = 0.6 See_Comment [A utomated message] The Eosinophils) system which ge nerated this result tra nsmitted reference range : <=4.0. The reference r eric was not used to int erpret this result as normal/abnormal . [place] [address]-03-23 16:26:00 Test Item Value Reference Range Interpretation Comments Basophils (test code = 0.4 See_Comment [Aut omated message] The Basophils) system which ge nerated this result tra nsmitted reference range : <=1.0. The reference r eric was not used to int erpret this result as normal/abnormal . [place] 834170-03-23 16:26:00 Test Item Value Reference Range Interpretation Comments Neutrophils # (test code = Neutrophils 11.7 1.5-8.1 #) [id number] 16:26:00 Test Item Value Reference Range Interpretation Comments Lymphocytes # (test code = Lymphocytes 0.2 1.0-5.5 #) [id number] 16:26:00 Test Item Value Reference Range Interpretation Comments Monocytes # (test code 0.4 See_Comment [Aut omated message] The = Monocytes #) system which generated this result tra nsmitted reference range : <=0.8. The reference r eric was not used to int erpret this result as normal/abnormal . [facility] [id number] 16:26:00 Test Item Value Reference Range Interpretation Comments Eosinophils # (test code 0.1 See_Comment [A utomated message] The = Eosinophils #) system whic h generated this result tra nsmitted reference range : <=0.5. The reference r eric was not used to int erpret this result as normal/abnormal . [id number] 16:26:00 Test Item Value Reference Range Interpretation Comments C-REACTIVE PROTEIN (test code = 15.4 C-REACTIVE PROTEIN) [facility] AND [id number] 16:26:00 Test Item Value Reference Range Interpretation Comments UA Turbidity (test code = Clear (12/05/19 11:26 UA Turbidity) AM) [facility] AND [id number] 16:26:00 Test Item Value Reference Range Interpretation Comments UA Spec Grav (test code = UA Spec 1.010 1 Grav) [facility] AND [id number] 16:26:00 Test Item Value Reference Range Interpretation Comments UA pH (test code = UA pH) 7.0 1 5.0-8.0 [facility] AND [id number] 16:26:00 Test Item Value Reference Range Interpretation Comments UA Protein (test code = UA Negative mg/dL Protein) [facility] AND [id number] 16:26:00 Test Item Value Reference Range Interpretation Comments UA Glucose (test code = UA Negative mg/dL Glucose) [facility] AND [id number] 16:26:00 Test Item Value Reference Range Interpretation Comments UA Ketones (test code = UA Negative mg/dL Ketones) [facility] [id number] 16:26:00 Test Item Value Reference Range Interpretation Comments UA Bili (test code = Negative *NA*(12/05/19 UA Bili) 11:26 AM) [facility] [id number] 16:26:00 Test Item Value Reference Range Interpretation Comments UA Blood (test code = Negative (12/05/19 11:26 UA Blood) AM) [facility] [id number] 16:26:00 Test Item Value Reference Range Interpretation Comments UA Nitrite (test code Negative (12/05/19 11:26 = UA Nitrite) AM) [facility] [id number] 16:26:00 Test Item Value Reference Range Interpretation Comments UA Leuk Est (test Negative (12/05/19 11:26 code = UA Leuk Est) AM) [facility] [id number] 16:26:00 Test Item Value Reference Range Interpretation Comments UA Sq Epi (test code = UA Sq Occasional /LPF Epi) [facility] [id number] 16:26:00 Test Item Value Reference Range Interpretation Comments UA WBC (test code = no gt See_Comment [Automa thelma message] The UA WBC) system which ge nerated this result transmit thelma reference range : <=5. The reference range was not used to interpr et this result as zana l/abnormal. [facility] [id number] 16:26:00 Test Item Value Reference Range Interpretation Comments UA RBC (test code = no gt See_Comment [Automa thelma message] The UA RBC) system which ge nerated this result transmit thelma reference range : <=2. The reference range was not used to interpr et this result as zana l/abnormal. [facility] [id number] 16:26:00 Test Item Value Reference Range Interpretation Comments UA Mucus (test code = UA Mucus) Few /LPF [facility] [id number] 16:26:00 Test Item Value Reference Range Interpretation Comments UA Color (test code = UA Color) YELLOW [facility] [id number] 16:26:00 Test Item Value Reference Range Interpretation Comments UA Urobilinogen (test code = UA <=1.0 mg/dL 0.1-1.0 Urobilinogen) [facility] [id number] 16:26:00 Test Item Value Reference Range Interpretation Comments Ferritin Lvl (test code = Ferritin Lvl) [address] [facility] [id number] 16:26:00 Test Item Value Reference Range Interpretation Comments Total CK (test code = Total CK) 24 191 [facility] [id number] 16:26:00 Test Item Value Reference Range Interpretation Comments Troponin-I (test code no gt See_Comment [Auto mated message] The = Troponin-I) system which g enerated this result transmit thelma reference range : <=0.40. The reference r eric was not used to interpr et this result as zana l/abnormal. [facility] [id number] 16:26:00 Test Item Value Reference Range Interpretation Comments Procalcitonin Lvl (test 1.36 See_Comment [Au tomated message] code = Procalcitonin Lvl) Th e system which generated this result transmitted ref erence range: <=0.10. The reference range was not used to interpr et this result as normal/abnormal . [facility] [id number] 16:26:00 Test Item Value Reference Range Interpretation Comments Glucose Lvl (test code = Glucose Lvl) 164 70-99 [facility]2020-03-23 16:26:00 Test Item Value Reference Range Interpretation Comments BUN (test code = BUN) 14 7-22 [place] 536200-03-23 16:26:00 Test Item Value Reference Range Interpretation Comments Creatinine Lvl (test code = Creatinine 0.75 0.50-1.40 Lvl) [place] 536200-03-23 16:26:00 Test Item Value Reference Range Interpretation Comments Sodium Lvl (test code = Sodium Lvl) 134 135-145 [facility]2020-03-23 16:26:00 Test Item Value Reference Range Interpretation Comments Potassium Lvl (test code = Potassium 4.3 3.5-5.1 Lvl) [place] 536200-03-23 16:26:00 Test Item Value Reference Range Interpretation Comments Chloride Lvl (test code = Chloride Lvl) 104 95-109 [facility] [employer] [id number] 16:26:00 Test Item Value Reference Range Interpretation Comments CO2 (test code = CO2) 25 24-32 [facility] [employer] [id number] 16:26:00 Test Item Value Reference Range Interpretation Comments Calcium Lvl (test code = Calcium Lvl) 9.1 8.5-10.5 [facility] [employer] [id number] 16:26:00 Test Item Value Reference Range Interpretation Comments Total Protein (test code = Total 6.8 6.4-8.4 Protein) [facility] [employer] [id number] 16:26:00 Test Item Value Reference Range Interpretation Comments Albumin Lvl (test code = Albumin Lvl) 3.0 3.5-5.0 [facility] [employer] [id number] 16:26:00 Test Item Value Reference Range Interpretation Comments ALT (test code = ALT) 15 See_Comment [Auto mated message] The system which ge nerated this result transmit thelma reference range : <=65. The reference range was not used to interpr et this result as zana l/abnormal. [facility] [employer] [id number] 16:26:00 Test Item Value Reference Range Interpretation Comments AST (test code = AST) 11 See_Comment [Auto mated message] The system which ge nerated this result transmit thelma reference range : <=37. The reference range was not used to interpr et this result as azna l/abnormal. [facility] [employer] [id number] 16:26:00 Test Item Value Reference Range Interpretation Comments Alk Phos (test code = Alk Phos) 58 39-136 [facility] [employer] [id number] 16:26:00 Test Item Value Reference Range Interpretation Comments Bili Total (test code = Bili Total) 0.2 0.2-1.3 [facility] [employer] [id number] 16:26:00 Test Item Value Reference Range Interpretation Comments AGAP (test code = AGAP) 9.3 10.0-20.0 [facility] [employer] [id number] 16:26:00 Test Item Value Reference Range Interpretation Comments B/C Ratio (test code = B/C Ratio) 19 1 6-25 [place] 536200-03-23 16:26:00 Test Item Value Reference Range Interpretation Comments Globulin (test code = Globulin) 3.8 2.7-4.2 [place] 536200-03-23 16:26:00 Test Item Value Reference Range Interpretation Comments A/G Ratio (test code = A/G Ratio) 0.8 1 0.7-1.6 [place] 536200-03-23 16:26:00 Test Item Value Reference Range Interpretation Comments eGFR (test code = eGFR) 79 [place] 536200-03-23 16:26:00 Test Item Value Reference Range Interpretation Comments Lactic Acid Lvl (test code = Lactic 0.8 0.5-2.2 Acid Lvl) [place] 536200-03-23 16:26:00 Test Item Value Reference Range Interpretation Comments LDH (test code = LDH) 211 98-192 [facility] [id number] 16:26:00 Test Item Value Reference Range Interpretation Comments WBC (test code = WBC) 12.3 3.7-10.4 [place] 834170-03-23 16:26:00 Test Item Value Reference Range Interpretation Comments RBC (test code = RBC) 3.87 4.20-5.40 [place] 834170-03-23 16:26:00 Test Item Value Reference Range Interpretation Comments Hgb (test code = Hgb) 9.9 12.0-16.0 [place] [address]-03-23 16:26:00 Test Item Value Reference Range Interpretation Comments Hct (test code = Hct) 31.5 36.0-48.0 [place] [address]-03-23 16:26:00 Test Item Value Reference Range Interpretation Comments MCV (test code = MCV) 81.2 80.0-98.0 [place] [address]-03-23 16:26:00 Test Item Value Reference Range Interpretation Comments MCH (test code = MCH) 25.5 pg 27.0-31.0 [place] [address]-03-23 16:26:00 Test Item Value Reference Range Interpretation Comments MCHC (test code = MCHC) 31.4 32.0-36.0 [place] [address]-03-23 16:26:00 Test Item Value Reference Range Interpretation Comments RDW (test code = RDW) 14.7 11.5-14.5 [place] [address]-03-23 16:26:00 Test Item Value Reference Range Interpretation Comments Platelet (test code = Platelet) 316 133-450 [place] [address]-03-23 16:26:00 Test Item Value Reference Range Interpretation Comments MPV (test code = MPV) 8.8 7.4-10.4 [place] [address]-03-23 16:26:00 Test Item Value Reference Range Interpretation Comments PT (test code = PT) 14.0 s 12.0-14.7 [place] [address]-03-23 16:26:00 Test Item Value Reference Range Interpretation Comments INR (test code = INR) 1.08 1 0.85-1.17 [place] [address]-03-23 16:26:00 Test Item Value Reference Range Interpretation Comments PTT (test code = PTT) 26.0 s 22.9-35.8 [place] [address]-03-23 16:26:00 Test Item Value Reference Range Interpretation Comments Segs (test code = Segs) 94.6 45.0-75.0 [place] [address]-03-23 16:26:00 Test Item Value Reference Range Interpretation Comments Lymphocytes (test code = Lymphocytes) 1.5 20.0-40.0 [place] [address]-03-23 16:26:00 Test Item Value Reference Range Interpretation Comments Monocytes (test code = Monocytes) 2.9 2.0-12.0 [place] [address]-03-23 16:26:00 Test Item Value Reference Range Interpretation Comments Eosinophils (test code = 0.6 See_Comment [A utomated message] The Eosinophils) system which ge nerated this result tra nsmitted reference range : <=4.0. The reference r eric was not used to int erpret this result as normal/abnormal . [place] [address]-03-23 16:26:00 Test Item Value Reference Range Interpretation Comments Basophils (test code = 0.4 See_Comment [Aut omated message] The Basophils) system which ge nerated this result tra nsmitted reference range : <=1.0. The reference r eric was not used to int erpret this result as normal/abnormal . [facility]KtwykrySTBTBNIEMH5295-74-06 16:26:00 Test Item Value Reference Range Interpretation Comments Neutrophils # (test code = Neutrophils 11.7 1.5-8.1 #) [id number] 16:26:00 Test Item Value Reference Range Interpretation Comments Lymphocytes # (test code = Lymphocytes 0.2 1.0-5.5 #) [facility] [id number] 16:26:00 Test Item Value Reference Range Interpretation Comments Monocytes # (test code 0.4 See_Comment [Aut omated message] The = Monocytes #) system which generated this result tra nsmitted reference range : <=0.8. The reference r eric was not used to int erpret this result as normal/abnormal . [facility] MichiganTgildqdAOBLSESVGL2253-05-01 16:26:00 Test Item Value Reference Range Interpretation Comments Eosinophils # (test code 0.1 See_Comment [A utomated message] The = Eosinophils #) system whic h generated this result tra nsmitted reference range : <=0.5. The reference r eric was not used to int erpret this result as normal/abnormal . [facility] HospitalGnxoyhrHHLCKWACAK3046-39-03 16:26:00 Test Item Value Reference Range Interpretation Comments C-REACTIVE PROTEIN (test code = 15.4 C-REACTIVE PROTEIN) [facility] AND [id number] 16:26:00 Test Item Value Reference Range Interpretation Comments UA Turbidity (test code = Clear (12/05/19 11:26 UA Turbidity) AM) [facility] AND [id number] 16:26:00 Test Item Value Reference Range Interpretation Comments UA Spec Grav (test code = UA Spec 1.010 1 Grav) [facility] AND [id number] 16:26:00 Test Item Value Reference Range Interpretation Comments UA pH (test code = UA pH) 7.0 1 5.0-8.0 [facility] AND [id number] 16:26:00 Test Item Value Reference Range Interpretation Comments UA Protein (test code = UA Negative mg/dL Protein) [facility] AND [id number] 16:26:00 Test Item Value Reference Range Interpretation Comments UA Glucose (test code = UA Negative mg/dL Glucose) [facility] AND [id number] 16:26:00 Test Item Value Reference Range Interpretation Comments UA Ketones (test code = UA Negative mg/dL Ketones) [facility] [id number] 16:26:00 Test Item Value Reference Range Interpretation Comments UA Bili (test code = Negative *NA*(12/05/19 UA Bili) 11:26 AM) [facility] [id number] 16:26:00 Test Item Value Reference Range Interpretation Comments UA Blood (test code = Negative (12/05/19 11:26 UA Blood) AM) [facility] [id number] 16:26:00 Test Item Value Reference Range Interpretation Comments UA Nitrite (test code Negative (12/05/19 11:26 = UA Nitrite) AM) [facility] [id number] 16:26:00 Test Item Value Reference Range Interpretation Comments UA Leuk Est (test Negative (12/05/19 11:26 code = UA Leuk Est) AM) [facility] [id number] 16:26:00 Test Item Value Reference Range Interpretation Comments UA Sq Epi (test code = UA Sq Occasional /LPF Epi) [facility] [id number] 16:26:00 Test Item Value Reference Range Interpretation Comments UA WBC (test code = no gt See_Comment [Automa thelma message] The UA WBC) system which ge nerated this result transmit thelma reference range : <=5. The reference range was not used to interpr et this result as zana l/abnormal. [facility] [id number] 16:26:00 Test Item Value Reference Range Interpretation Comments UA RBC (test code = no gt See_Comment [Automa thelma message] The UA RBC) system which ge nerated this result transmit thelma reference range : <=2. The reference range was not used to interpr et this result as zana l/abnormal. [facility] [id number] 16:26:00 Test Item Value Reference Range Interpretation Comments UA Mucus (test code = UA Mucus) Few /LPF [facility] [id number] 16:26:00 Test Item Value Reference Range Interpretation Comments UA Color (test code = UA Color) YELLOW [facility] [id number] 16:26:00 Test Item Value Reference Range Interpretation Comments UA Urobilinogen (test code = UA <=1.0 mg/dL 0.1-1.0 Urobilinogen) [facility] [id number] 16:26:00 Test Item Value Reference Range Interpretation Comments Ferritin Lvl (test code = Ferritin Lvl) [address] [facility] [id number] 16:26:00 Test Item Value Reference Range Interpretation Comments Total CK (test code = Total CK) [address] [facility] [id number] 16:26:00 Test Item Value Reference Range Interpretation Comments Troponin-I (test code no gt See_Comment [Auto mated message] The = Troponin-I) system which g enerated this result transmit thelma reference range : <=0.40. The reference r eric was not used to interpr et this result as zana l/abnormal. [facility] [id number] 16:26:00 Test Item Value Reference Range Interpretation Comments Procalcitonin Lvl (test 1.36 See_Comment [Au tomated message] code = Procalcitonin Lvl) Th e system which generated this result transmitted ref erence range: <=0.10. The reference range was not used to interpr et this result as normal/abnormal . [facility] [id number] 16:26:00 Test Item Value Reference Range Interpretation Comments Glucose Lvl (test code = Glucose Lvl) 164 70-[address] [facility] [id number] 16:26:00 Test Item Value Reference Range Interpretation Comments BUN (test code = BUN) 14 7-[address] [facility] [id number] 16:26:00 Test Item Value Reference Range Interpretation Comments Creatinine Lvl (test code = Creatinine 0.75 0.50-1.40 Lvl) [facility] [id number] 16:26:00 Test Item Value Reference Range Interpretation Comments Sodium Lvl (test code = Sodium Lvl) 134 135-145 [facility] [id number] 16:26:00 Test Item Value Reference Range Interpretation Comments Potassium Lvl (test code = Potassium 4.3 3.5-5.1 Lvl) [facility] [id number] 16:26:00 Test Item Value Reference Range Interpretation Comments Chloride Lvl (test code = Chloride Lvl) 104 95-109 [facility] [employer] [id number] 16:26:00 Test Item Value Reference Range Interpretation Comments CO2 (test code = CO2) 25 24-32 [facility] [employer] [id number] 16:26:00 Test Item Value Reference Range Interpretation Comments Calcium Lvl (test code = Calcium Lvl) 9.1 8.5-10.5 [facility] [employer] [id number] 16:26:00 Test Item Value Reference Range Interpretation Comments Total Protein (test code = Total 6.8 6.4-8.4 Protein) [facility] [employer] [id number] 16:26:00 Test Item Value Reference Range Interpretation Comments Albumin Lvl (test code = Albumin Lvl) 3.0 3.5-5.0 [facility] [employer] [id number] 16:26:00 Test Item Value Reference Range Interpretation Comments ALT (test code = ALT) 15 See_Comment [Auto mated message] The system which ge nerated this result transmit thelma reference range : <=65. The reference range was not used to interpr et this result as zana l/abnormal. [facility] [employer] [id number] 16:26:00 Test Item Value Reference Range Interpretation Comments AST (test code = AST) 11 See_Comment [Auto mated message] The system which ge nerated this result transmit thelma reference range : <=37. The reference range was not used to interpr et this result as zana l/abnormal. [facility] [employer] [id number] 16:26:00 Test Item Value Reference Range Interpretation Comments Alk Phos (test code = Alk Phos) 58 39-136 [facility] [employer] [id number] 16:26:00 Test Item Value Reference Range Interpretation Comments Bili Total (test code = Bili Total) 0.2 0.2-1.3 [facility] [employer] [id number] 16:26:00 Test Item Value Reference Range Interpretation Comments AGAP (test code = AGAP) 9.3 10.0-20.0 [facility] [employer] [id number] 16:26:00 Test Item Value Reference Range Interpretation Comments B/C Ratio (test code = B/C Ratio) 19 1 6-25 [facility] [id number] 16:26:00 Test Item Value Reference Range Interpretation Comments Globulin (test code = Globulin) 3.8 2.7-4.2 [facility] [id number] 16:26:00 Test Item Value Reference Range Interpretation Comments A/G Ratio (test code = A/G Ratio) 0.8 1 0.7-1.6 [facility] [id number] 16:26:00 Test Item Value Reference Range Interpretation Comments eGFR (test code = eGFR) 79 [facility] [id number] 16:26:00 Test Item Value Reference Range Interpretation Comments Lactic Acid Lvl (test code = Lactic 0.8 0.5-2.2 Acid Lvl) [facility]2020-03-23 16:26:00 Test Item Value Reference Range Interpretation Comments LDH (test code = LDH) 211 98-192 [facility]LcxtqyxHYEDKFXSNE4632-60-43 16:26:00 Test Item Value Reference Range Interpretation Comments WBC (test code = WBC) 12.3 3.7-10.[address] [facility]vtbizqHPLCTTTOEY2295-46-87 16:26:00 Test Item Value Reference Range Interpretation Comments RBC (test code = RBC) 3.87 4.20-5.[address] [facility]KbssxesEOZYSIIQJF5764-02-36 16:26:00 Test Item Value Reference Range Interpretation Comments Hgb (test code = Hgb) 9.9 12.0-16.[address] [facility]XkftqzuKPXNACGIAO9591-92-50 16:26:00 Test Item Value Reference Range Interpretation Comments Hct (test code = Hct) 31.5 36.0-48.0 [facility] CenterLomfbeqWGRCTMGGLG2313-96-34 16:26:00 Test Item Value Reference Range Interpretation Comments MCV (test code = MCV) 81.2 80.0-98.[address] [facility]ThezaqgGBOIVWTSBV5428-48-66 16:26:00 Test Item Value Reference Range Interpretation Comments MCH (test code = MCH) 25.5 [address] 27.0-31.[address] [facility]PilddmrYZOGGGTCVO2339-37-60 16:26:00 Test Item Value Reference Range Interpretation Comments MCHC (test code = MCHC) 31.4 32.0-36.0 [place] [address]-03-23 16:26:00 Test Item Value Reference Range Interpretation Comments RDW (test code = RDW) 14.7 11.5-14.5 [place] [address]-03-23 16:26:00 Test Item Value Reference Range Interpretation Comments Platelet (test code = Platelet) 316 133-450 [place] [address]-03-23 16:26:00 Test Item Value Reference Range Interpretation Comments MPV (test code = MPV) 8.8 7.4-10.4 [place] [address]-03-23 16:26:00 Test Item Value Reference Range Interpretation Comments PT (test code = PT) 14.0 s 12.0-14.7 [place] [address]-03-23 16:26:00 Test Item Value Reference Range Interpretation Comments INR (test code = INR) 1.08 1 0.85-1.17 [place] [address]-03-23 16:26:00 Test Item Value Reference Range Interpretation Comments PTT (test code = PTT) 26.0 s 22.9-35.8 [place] [address]-03-23 16:26:00 Test Item Value Reference Range Interpretation Comments Segs (test code = Segs) 94.6 45.0-75.0 [place] [address]-03-23 16:26:00 Test Item Value Reference Range Interpretation Comments Lymphocytes (test code = Lymphocytes) 1.5 20.0-40.0 [place] [address]-03-23 16:26:00 Test Item Value Reference Range Interpretation Comments Monocytes (test code = Monocytes) 2.9 2.0-12.0 [place] [address]-03-23 16:26:00 Test Item Value Reference Range Interpretation Comments Eosinophils (test code = 0.6 See_Comment [A utomated message] The Eosinophils) system which ge nerated this result tra nsmitted reference range : <=4.0. The reference r eric was not used to int erpret this result as normal/abnormal . [place] [address]-03-23 16:26:00 Test Item Value Reference Range Interpretation Comments Basophils (test code = 0.4 See_Comment [Aut omated message] The Basophils) system which ge nerated this result tra nsmitted reference range : <=1.0. The reference r eric was not used to int erpret this result as normal/abnormal . [facility] TempleAqfblbrYUXKZJGHBT3302-79-09 16:26:00 Test Item Value Reference Range Interpretation Comments Neutrophils # (test code = Neutrophils 11.7 1.5-8.1 #) [facility] TempleUkzqmidHGWYNUNUZR2406-50-63 16:26:00 Test Item Value Reference Range Interpretation Comments Lymphocytes # (test code = Lymphocytes 0.2 1.0-5.5 #) [facility] TemplePlmsvcdMUMFCNNFVP7128-83-02 16:26:00 Test Item Value Reference Range Interpretation Comments Monocytes # (test code 0.4 See_Comment [Aut omated message] The = Monocytes #) system which generated this result tra nsmitted reference range : <=0.8. The reference r eric was not used to int erpret this result as normal/abnormal . [facility] TempleMyiylcbFHIXIEYBHH5326-52-75 16:26:00 Test Item Value Reference Range Interpretation Comments Eosinophils # (test code 0.1 See_Comment [A utomated message] The = Eosinophils #) system whic h generated this result tra nsmitted reference range : <=0.5. The reference r eric was not used to int erpret this result as normal/abnormal . [facility] HospitalAffvrlyWMNGKNXIKZ4268-66-90 16:26:00 Test Item Value Reference Range Interpretation Comments C-REACTIVE PROTEIN (test code = 15.4 C-REACTIVE PROTEIN) [facility] AND [id number] 16:26:00 Test Item Value Reference Range Interpretation Comments UA Turbidity (test code = Clear (12/05/19 11:26 UA Turbidity) AM) [facility] AND [id number] 16:26:00 Test Item Value Reference Range Interpretation Comments UA Spec Grav (test code = UA Spec 1.010 1 Grav) [facility] AND [id number] 16:26:00 Test Item Value Reference Range Interpretation Comments UA pH (test code = UA pH) 7.0 1 5.0-8.0 [facility] AND [id number] 16:26:00 Test Item Value Reference Range Interpretation Comments UA Protein (test code = UA Negative mg/dL Protein) [facility] AND [id number] 16:26:00 Test Item Value Reference Range Interpretation Comments UA Glucose (test code = UA Negative mg/dL Glucose) [facility] [id number] 16:26:00 Test Item Value Reference Range Interpretation Comments UA Ketones (test code = UA Negative mg/dL Ketones) [facility] [id number] 16:26:00 Test Item Value Reference Range Interpretation Comments UA Bili (test code = Negative *NA*(12/05/19 UA Bili) 11:26 AM) [facility] [id number] 16:26:00 Test Item Value Reference Range Interpretation Comments UA Blood (test code = Negative (12/05/19 11:26 UA Blood) AM) [facility] [id number] 16:26:00 Test Item Value Reference Range Interpretation Comments UA Nitrite (test code Negative (12/05/19 11:26 = UA Nitrite) AM) [facility] AND [id number] 16:26:00 Test Item Value Reference Range Interpretation Comments UA Leuk Est (test Negative (12/05/19 11:26 code = UA Leuk Est) AM) [facility] AND [id number] 16:26:00 Test Item Value Reference Range Interpretation Comments UA Sq Epi (test code = UA Sq Occasional /LPF Epi) [facility] AND [id number] 16:26:00 Test Item Value Reference Range Interpretation Comments UA WBC (test code = no gt See_Comment [Automa thelma message] The UA WBC) system which ge nerated this result transmit thelma reference range : <=5. The reference range was not used to interpr et this result as zana l/abnormal. [facility] [id number] 16:26:00 Test Item Value Reference Range Interpretation Comments UA RBC (test code = no gt See_Comment [Automa thelma message] The UA RBC) system which ge nerated this result transmit thelma reference range : <=2. The reference range was not used to interpr et this result as zana l/abnormal. [facility] [id number] 16:26:00 Test Item Value Reference Range Interpretation Comments UA Mucus (test code = UA Mucus) Few /LPF [facility] [id number] 16:26:00 Test Item Value Reference Range Interpretation Comments UA Color (test code = UA Color) YELLOW [facility] [id number] 16:26:00 Test Item Value Reference Range Interpretation Comments UA Urobilinogen (test code = UA <=1.0 mg/dL 0.1-1.0 Urobilinogen) [facility] CenterannCARDIAC [id number] 00:35:00 Test Item Value Reference Range Interpretation Comments Total CK (test code = Total CK) 62 12-191 [facility] CenterannCARDIAC [id number] 00:35:00 Test Item Value Reference Range Interpretation Comments Troponin-I (test code no gt See_Comment [Auto mated message] The = Troponin-I) system which g enerated this result transmit thelma reference range : <=0.40. The reference r eric was not used to interpr et this result as zana l/abnormal. [facility] CenterCirrus WorksCARTargetingMantraAC [id number] 00:35:00 Test Item Value Reference Range Interpretation Comments BNP (test code = BNP) 25 [facility] CenterInter[facility] Safety [id number] 00:35:00 Test Item Value Reference Range Interpretation Comments Glucose Lvl (test code = Glucose Lvl) 179 70-99 [facility] CenterInter[facility] Safety [id number] 00:35:00 Test Item Value Reference Range Interpretation Comments BUN (test code = BUN) 32 7-22 [facility] Center[facility] [id number] 00:35:00 Test Item Value Reference Range Interpretation Comments Creatinine Lvl (test code = Creatinine 1.26 0.50-1.40 Lvl) [facility] Center[facility] [id number] 00:35:00 Test Item Value Reference Range Interpretation Comments Sodium Lvl (test code = Sodium Lvl) 139 135-145 [facility] [employer] [id number] 00:35:00 Test Item Value Reference Range Interpretation Comments Potassium Lvl (test code = Potassium 4.1 3.5-5.1 Lvl) [facility] CenterInter[facility] Safety [id number] 00:35:00 Test Item Value Reference Range Interpretation Comments Chloride Lvl (test code = Chloride Lvl) 110 95-109 [facility] CenterInter[facility] Safety [id number] 00:35:00 Test Item Value Reference Range Interpretation Comments CO2 (test code = CO2) 22 24-32 [facility] Center[facility] [id number] 00:35:00 Test Item Value Reference Range Interpretation Comments Calcium Lvl (test code = Calcium Lvl) 9.3 8.5-10.5 [facility] [place]2020-03-07 00:35:00 Test Item Value Reference Range Interpretation Comments Total Protein (test code = Total 7.2 6.4-8.4 Protein) [facility] [place]2020-03-07 00:35:00 Test Item Value Reference Range Interpretation Comments Albumin Lvl (test code = Albumin Lvl) 3.4 3.5-5.0 [facility] [place]2020-03-07 00:35:00 Test Item Value Reference Range Interpretation Comments ALT (test code = ALT) 16 See_Comment [Auto mated message] The system which ge nerated this result transmit thelma reference range : <=65. The reference range was not used to interpr et this result as zana l/abnormal. [facility]2020-03-07 00:35:00 Test Item Value Reference Range Interpretation Comments AST (test code = AST) 9 See_Comment [Auto mated message] The system which ge nerated this result transmit thelma reference range : <=37. The reference range was not used to interpr et this result as zana l/abnormal. [facility]2020-03-07 00:35:00 Test Item Value Reference Range Interpretation Comments Alk Phos (test code = Alk Phos) 69 39-136 [facility] [place]2020-03-07 00:35:00 Test Item Value Reference Range Interpretation Comments Bili Total (test code = Bili Total) 0.2 0.2-1.3 [facility] [place]2020-03-07 00:35:00 Test Item Value Reference Range Interpretation Comments AGAP (test code = AGAP) 11.1 10.0-20.0 3SP Group0-03-07 00:35:00 Test Item Value Reference Range Interpretation Comments B/C Ratio (test code = B/C Ratio) 25 1 6-25 [facility] [place]2020-03-07 00:35:00 Test Item Value Reference Range Interpretation Comments Globulin (test code = Globulin) 3.8 2.7-4.2 3SP Group0-03-07 00:35:00 Test Item Value Reference Range Interpretation Comments A/G Ratio (test code = A/G Ratio) 0.9 1 0.7-1.6 [facility]2020-03-07 00:35:00 Test Item Value Reference Range Interpretation Comments eGFR (test code = eGFR) 42 [facility] TempleJfogghhBHSGHBYCFO1032-30-39 00:35:00 Test Item Value Reference Range Interpretation Comments Segs (test code = Segs) 52.3 45.0-75.0 [facility] TempleGdnzcxhJVHCVMAJTZ9340-07-87 00:35:00 Test Item Value Reference Range Interpretation Comments Lymphocytes (test code = Lymphocytes) 24.7 20.0-40.0 [facility] TemplePrmbtsfPYUKOHDTEV7109-59-44 00:35:00 Test Item Value Reference Range Interpretation Comments Monocytes (test code = Monocytes) 8.2 2.0-12.0 [facility] TempleIlntnnsIJGJBPIBVE4970-46-48 00:35:00 Test Item Value Reference Range Interpretation Comments Eosinophils (test code = 14.0 See_Comment [A utomated message] The Eosinophils) system which ge nerated this result tra nsmitted reference range : <=4.0. The reference r eric was not used to int erpret this result as normal/abnormal . [facility] TempleHnnpszgJAFEHBEPSG9432-80-56 00:35:00 Test Item Value Reference Range Interpretation Comments Basophils (test code = 0.8 See_Comment [Aut omated message] The Basophils) system which ge nerated this result tra nsmitted reference range : <=1.0. The reference r eric was not used to int erpret this result as normal/abnormal . [facility] TempleAmbdzffCDXIMGZDQE8742-03-63 00:35:00 Test Item Value Reference Range Interpretation Comments Neutrophils # (test code = Neutrophils 3.4 1.5-8.1 #) [place] 834170-03-07 00:35:00 Test Item Value Reference Range Interpretation Comments Lymphocytes # (test code = Lymphocytes 1.6 1.0-5.5 #) [place] 834170-03-07 00:35:00 Test Item Value Reference Range Interpretation Comments Monocytes # (test code 0.5 See_Comment [Aut omated message] The = Monocytes #) system which generated this result tra nsmitted reference range : <=0.8. The reference r eric was not used to int erpret this result as normal/abnormal . [facility] TempleUfmglelQYYIMQMVRF0448-69-77 00:35:00 Test Item Value Reference Range Interpretation Comments Eosinophils # (test code 0.9 See_Comment [A utomated message] The = Eosinophils #) system whic h generated this result tra nsmitted reference range : <=0.5. The reference r eric was not used to int erpret this result as normal/abnormal . [facility] TempleJwsacjjBHUYRXVYPP5480-14-42 00:35:00 Test Item Value Reference Range Interpretation Comments Basophils # (test code 0.1 See_Comment [Aut omated message] The = Basophils #) system which generated this result tra nsmitted reference range : <=0.2. The reference r eric was not used to int erpret this result as normal/abnormal . [facility] TempleKgqctvpBOYCINFKZV7107-71-54 00:35:00 Test Item Value Reference Range Interpretation Comments WBC (test code = WBC) 6.4 3.7-10.4 [facility] TempleSqtmjbpYSOSIPPBJE0393-71-51 00:35:00 Test Item Value Reference Range Interpretation Comments RBC (test code = RBC) 4.04 4.20-5.40 [facility] TempleGaknxppUWHGXPKLYN4072-33-23 00:35:00 Test Item Value Reference Range Interpretation Comments Hgb (test code = Hgb) 10.4 12.0-16.0 [facility] TempleHfatebsVRRUYXFUCC3479-80-46 00:35:00 Test Item Value Reference Range Interpretation Comments Hct (test code = Hct) 33.5 36.0-48.0 [facility] TempleIpiagxdHOHNWVNBCM7547-23-09 00:35:00 Test Item Value Reference Range Interpretation Comments MCV (test code = MCV) 82.9 80.0-98.0 [facility] TempleJbkroodPATCCLFFMT7739-63-66 00:35:00 Test Item Value Reference Range Interpretation Comments MCH (test code = MCH) 25.9 pg 27.0-31.0 [facility] TempleGordqgpVUGPPYXFAI9415-96-42 00:35:00 Test Item Value Reference Range Interpretation Comments MCHC (test code = MCHC) 31.2 32.0-36.0 [facility] TempleQnkkcpmMTJPSOKWRY7517-03-71 00:35:00 Test Item Value Reference Range Interpretation Comments RDW (test code = RDW) 14.9 11.5-14.5 [place] 834170-03-07 00:35:00 Test Item Value Reference Range Interpretation Comments Platelet (test code = Platelet) 282 133-450 [facility] MichiganEgekziuOJGEBQMVTK5831-88-02 00:35:00 Test Item Value Reference Range Interpretation Comments MPV (test code = MPV) 8.8 7.4-10.[address] [facility]BohpnvgUELTOTAAEB2667-70-08 00:35:00 Test Item Value Reference Range Interpretation Comments PT (test code = PT) 13.5 s 12.0-14.7 [facility] CenterHkdorrtVLMWLDUDYV3866-07-17 00:35:00 Test Item Value Reference Range Interpretation Comments INR (test code = INR) 1.03 1 0.85-1.17 [facility] CenterNqfkxlbZFPPSWLOXF2117-10-12 00:35:00 Test Item Value Reference Range Interpretation Comments PTT (test code = PTT) 27.4 s 22.9-35.8 [facility] CenterOfferLoungeAC [id number] 00:35:00 Test Item Value Reference Range Interpretation Comments Total CK (test code = Total CK) 62 12-[address] [facility]Lag[facility] [id number] 00:35:00 Test Item Value Reference Range Interpretation Comments Troponin-I (test code no gt See_Comment [Auto mated message] The = Troponin-I) system which g enerated this result transmit thelma reference range : <=0.40. The reference r eric was not used to interpr et this result as zana l/abnormal. [facility] CenterOphis Vape [id number] 00:35:00 Test Item Value Reference Range Interpretation Comments BNP (test code = BNP) 25 [facility] [employer] [id number] 00:35:00 Test Item Value Reference Range Interpretation Comments Glucose Lvl (test code = Glucose Lvl) 179 70-99 [facility] CenterInter[facility] Safety [id number] 00:35:00 Test Item Value Reference Range Interpretation Comments BUN (test code = BUN) 32 7-22 [facility] [employer] [id number] 00:35:00 Test Item Value Reference Range Interpretation Comments Creatinine Lvl (test code = Creatinine 1.26 0.50-1.40 Lvl) [facility] CenterInter[facility] [id number] 00:35:00 Test Item Value Reference Range Interpretation Comments Sodium Lvl (test code = Sodium Lvl) 139 135-145 [facility] CenterInter[facility] [id number] 00:35:00 Test Item Value Reference Range Interpretation Comments Potassium Lvl (test code = Potassium 4.1 3.5-5.1 Lvl) [facility] CenterInter[facility] [id number] 00:35:00 Test Item Value Reference Range Interpretation Comments Chloride Lvl (test code = Chloride Lvl) 110 95-109 [facility] CenterInter[facility] [id number] 00:35:00 Test Item Value Reference Range Interpretation Comments CO2 (test code = CO2) 22 24-32 [facility] CenterInter[facility] [id number] 00:35:00 Test Item Value Reference Range Interpretation Comments Calcium Lvl (test code = Calcium Lvl) 9.3 8.5-10.5 [facility] CenterInter[facility] [id number] 00:35:00 Test Item Value Reference Range Interpretation Comments Total Protein (test code = Total 7.2 6.4-8.4 Protein) [facility] CenterInter[facility] [id number] 00:35:00 Test Item Value Reference Range Interpretation Comments Albumin Lvl (test code = Albumin Lvl) 3.4 3.5-5.0 [facility] CenterInter[facility] [id number] 00:35:00 Test Item Value Reference Range Interpretation Comments ALT (test code = ALT) 16 See_Comment [Auto mated message] The system which ge nerated this result transmit thelma reference range : <=65. The reference range was not used to interpr et this result as zana l/abnormal. [facility] [employer] [id number] 00:35:00 Test Item Value Reference Range Interpretation Comments AST (test code = AST) 9 See_Comment [Auto mated message] The system which ge nerated this result transmit thelma reference range : <=37. The reference range was not used to interpr et this result as zana l/abnormal. [facility] [employer] [id number] 00:35:00 Test Item Value Reference Range Interpretation Comments Alk Phos (test code = Alk Phos) 69 39-136 [facility] CenterInter[facility] Safety [id number] 00:35:00 Test Item Value Reference Range Interpretation Comments Bili Total (test code = Bili Total) 0.2 0.2-1.3 [facility] CenterInter[facility] [id number] 00:35:00 Test Item Value Reference Range Interpretation Comments AGAP (test code = AGAP) 11.1 10.0-20.0 [facility] [id number] 00:35:00 Test Item Value Reference Range Interpretation Comments B/C Ratio (test code = B/C Ratio) 25 1 6-25 [facility] [id number] 00:35:00 Test Item Value Reference Range Interpretation Comments Globulin (test code = Globulin) 3.8 2.7-4.2 [facility] [id number] 00:35:00 Test Item Value Reference Range Interpretation Comments A/G Ratio (test code = A/G Ratio) 0.9 1 0.7-1.6 [place] [address]-03-07 00:35:00 Test Item Value Reference Range Interpretation Comments eGFR (test code = eGFR) 42 [place] 834170-03-07 00:35:00 Test Item Value Reference Range Interpretation Comments Segs (test code = Segs) 52.3 45.0-75.0 [place] 834170-03-07 00:35:00 Test Item Value Reference Range Interpretation Comments Lymphocytes (test code = Lymphocytes) 24.7 20.0-40.0 [place] 834170-03-07 00:35:00 Test Item Value Reference Range Interpretation Comments Monocytes (test code = Monocytes) 8.2 2.0-12.0 [place] 834170-03-07 00:35:00 Test Item Value Reference Range Interpretation Comments Eosinophils (test code = 14.0 See_Comment [A utomated message] The Eosinophils) system which ge nerated this result tra nsmitted reference range : <=4.0. The reference r eric was not used to int erpret this result as normal/abnormal . [place] 834170-03-07 00:35:00 Test Item Value Reference Range Interpretation Comments Basophils (test code = 0.8 See_Comment [Aut omated message] The Basophils) system which ge nerated this result tra nsmitted reference range : <=1.0. The reference r eric was not used to int erpret this result as normal/abnormal . [place] 834170-03-07 00:35:00 Test Item Value Reference Range Interpretation Comments Neutrophils # (test code = Neutrophils 3.4 1.5-8.1 #) [facility] TempleAyenzadSKUTLXWKCT9571-90-52 00:35:00 Test Item Value Reference Range Interpretation Comments Lymphocytes # (test code = Lymphocytes 1.6 1.0-5.5 #) [facility] TempleVyuexbgOABVDJFXII1603-28-87 00:35:00 Test Item Value Reference Range Interpretation Comments Monocytes # (test code 0.5 See_Comment [Aut omated message] The = Monocytes #) system which generated this result tra nsmitted reference range : <=0.8. The reference r eric was not used to int erpret this result as normal/abnormal . [facility] TempleLqgcxzbUVVJRBDGQR0946-83-61 00:35:00 Test Item Value Reference Range Interpretation Comments Eosinophils # (test code 0.9 See_Comment [A utomated message] The = Eosinophils #) system whic h generated this result tra nsmitted reference range : <=0.5. The reference r eric was not used to int erpret this result as normal/abnormal . [facility] TempleFumzzegSBJINWSIOQ7366-27-71 00:35:00 Test Item Value Reference Range Interpretation Comments Basophils # (test code 0.1 See_Comment [Aut omated message] The = Basophils #) system which generated this result tra nsmitted reference range : <=0.2. The reference r eric was not used to int erpret this result as normal/abnormal . [facility] TempleTaldurdEXXSTBJQYM4293-80-28 00:35:00 Test Item Value Reference Range Interpretation Comments WBC (test code = WBC) 6.4 3.7-10.4 [place] 834170-03-07 00:35:00 Test Item Value Reference Range Interpretation Comments RBC (test code = RBC) 4.04 4.20-5.40 [place] [address]-03-07 00:35:00 Test Item Value Reference Range Interpretation Comments Hgb (test code = Hgb) 10.4 12.0-16.0 [place] [address]-03-07 00:35:00 Test Item Value Reference Range Interpretation Comments Hct (test code = Hct) 33.5 36.0-48.0 [place] 834170-03-07 00:35:00 Test Item Value Reference Range Interpretation Comments MCV (test code = MCV) 82.9 80.0-98.[address] [facility]pn[facility]UAWXDBEDSS1225-41-79 00:35:00 Test Item Value Reference Range Interpretation Comments MCH (test code = MCH) 25.9 pg 27.0-31.0 [facility] CenterHjhnrbfCFWIMAWHGN4421-28-92 00:35:00 Test Item Value Reference Range Interpretation Comments MCHC (test code = MCHC) 31.2 32.0-36.0 [facility] CenterGwaazqjKOUARMNOHI4115-12-37 00:35:00 Test Item Value Reference Range Interpretation Comments RDW (test code = RDW) 14.9 11.5-14.5 [facility] CenterDmbhlqxTTRGGUKDQU8194-97-43 00:35:00 Test Item Value Reference Range Interpretation Comments Platelet (test code = Platelet) 282 133-[address] [facility] HospitalTakqbwnETUDFRGYEH1785-45-66 00:35:00 Test Item Value Reference Range Interpretation Comments MPV (test code = MPV) 8.8 7.4-10.4 [facility] CenterOuhrcomYMAHVOTCAV1840-36-86 00:35:00 Test Item Value Reference Range Interpretation Comments PT (test code = PT) 13.5 s 12.0-14.7 [facility] CenterPnphljrDGRKXJMIGX0753-67-85 00:35:00 Test Item Value Reference Range Interpretation Comments INR (test code = INR) 1.03 1 0.85-1.17 [facility] CenterYegngxeNSCOHAGOZC8050-99-22 00:35:00 Test Item Value Reference Range Interpretation Comments PTT (test code = PTT) 27.4 s 22.9-35.8 [facility] CenterCirrus WorksCARTargetingMantraAC WBIHECD3073-80-62 00:35:00 Test Item Value Reference Range Interpretation Comments Total CK (test code = Total CK) 62 12-[address] [facility] HospitalCARDIAC HJCYPOV0069-13-86 00:35:00 Test Item Value Reference Range Interpretation Comments Troponin-I (test code no gt See_Comment [Auto mated message] The = Troponin-I) system which g enerated this result transmit thelma reference range : <=0.40. The reference r eric was not used to interpr et this result as zana l/abnormal. [facility] CenterOfferLoungeAC ORZFRSM2270-75-84 00:35:00 Test Item Value Reference Range Interpretation Comments BNP (test code = BNP) 25 [facility] CenterInteract Public Safety ROUVO6538-21-68 00:35:00 Test Item Value Reference Range Interpretation Comments Glucose Lvl (test code = Glucose Lvl) 179 70-99 [place] 536200-03-07 00:35:00 Test Item Value Reference Range Interpretation Comments BUN (test code = BUN) 32 7-22 [facility]2020-03-07 00:35:00 Test Item Value Reference Range Interpretation Comments Creatinine Lvl (test code = Creatinine 1.26 0.50-1.40 Lvl) [place] 536200-03-07 00:35:00 Test Item Value Reference Range Interpretation Comments Sodium Lvl (test code = Sodium Lvl) 139 135-145 [place] 536200-03-07 00:35:00 Test Item Value Reference Range Interpretation Comments Potassium Lvl (test code = Potassium 4.1 3.5-5.1 Lvl) [place] 536200-03-07 00:35:00 Test Item Value Reference Range Interpretation Comments Chloride Lvl (test code = Chloride Lvl) 110 95-109 [place] 536200-03-07 00:35:00 Test Item Value Reference Range Interpretation Comments CO2 (test code = CO2) 22 24-32 [place] 536200-03-07 00:35:00 Test Item Value Reference Range Interpretation Comments Calcium Lvl (test code = Calcium Lvl) 9.3 8.5-10.5 [place] 536200-03-07 00:35:00 Test Item Value Reference Range Interpretation Comments Total Protein (test code = Total 7.2 6.4-8.4 Protein) [place] 536200-03-07 00:35:00 Test Item Value Reference Range Interpretation Comments Albumin Lvl (test code = Albumin Lvl) 3.4 3.5-5.0 [place] 536200-03-07 00:35:00 Test Item Value Reference Range Interpretation Comments ALT (test code = ALT) 16 See_Comment [Auto mated message] The system which ge nerated this result transmit thelma reference range : <=65. The reference range was not used to interpr et this result as zana l/abnormal. [place] 536200-03-07 00:35:00 Test Item Value Reference Range Interpretation Comments AST (test code = AST) 9 See_Comment [Auto mated message] The system which ge nerated this result transmit thelma reference range : <=37. The reference range was not used to interpr et this result as zana l/abnormal. [facility] CenterannSwype ELISL4413-28-76 00:35:00 Test Item Value Reference Range Interpretation Comments Alk Phos (test code = Alk Phos) 69 39-136 [facility] CenterannKNOX [facility] [id number] 00:35:00 Test Item Value Reference Range Interpretation Comments Bili Total (test code = Bili Total) 0.2 0.2-1.3 [facility] CenterannSwype KIJNX7680-78-46 00:35:00 Test Item Value Reference Range Interpretation Comments AGAP (test code = AGAP) 11.1 10.0-20.0 [facility] CenterannSwype VQVXH7865-14-95 00:35:00 Test Item Value Reference Range Interpretation Comments B/C Ratio (test code = B/C Ratio) 25 1 6-25 [facility] CenterannSwype ZYRIX2319-27-73 00:35:00 Test Item Value Reference Range Interpretation Comments Globulin (test code = Globulin) 3.8 2.7-4.2 [facility] CenterannSwype UBHOY0191-17-44 00:35:00 Test Item Value Reference Range Interpretation Comments A/G Ratio (test code = A/G Ratio) 0.9 1 0.7-1.6 [facility] CenterannSwype QJJGV8774-34-98 00:35:00 Test Item Value Reference Range Interpretation Comments eGFR (test code = eGFR) 42 [facility] CenterXacveerRNBFRNGOFZ9437-39-13 00:35:00 Test Item Value Reference Range Interpretation Comments Segs (test code = Segs) 52.3 45.0-75.0 [facility] CenterLbiyiqySQJHPGUSJH8579-64-06 00:35:00 Test Item Value Reference Range Interpretation Comments Lymphocytes (test code = Lymphocytes) 24.7 20.0-40.0 [facility] CenterPkdcvpuDXOBAXXGVD4969-35-59 00:35:00 Test Item Value Reference Range Interpretation Comments Monocytes (test code = Monocytes) 8.2 2.0-12.0 [facility] CenterNhwqlsoBBANWXMBUN7723-50-36 00:35:00 Test Item Value Reference Range Interpretation Comments Eosinophils (test code = 14.0 See_Comment [A utomated message] The Eosinophils) system which ge nerated this result tra nsmitted reference range : <=4.0. The reference r eric was not used to int erpret this result as normal/abnormal . [facility] TempleGqeicgaBFCAYKYAMW9977-86-94 00:35:00 Test Item Value Reference Range Interpretation Comments Basophils (test code = 0.8 See_Comment [Aut omated message] The Basophils) system which ge nerated this result tra nsmitted reference range : <=1.0. The reference r eric was not used to int erpret this result as normal/abnormal . [facility] TempleBgtxmzkLLZVGDYUMV8115-24-28 00:35:00 Test Item Value Reference Range Interpretation Comments Neutrophils # (test code = Neutrophils 3.4 1.5-8.1 #) [facility] TempleXgmzoxaGRBCYVRRXQ6266-85-71 00:35:00 Test Item Value Reference Range Interpretation Comments Lymphocytes # (test code = Lymphocytes 1.6 1.0-5.5 #) [place] 834170-03-07 00:35:00 Test Item Value Reference Range Interpretation Comments Monocytes # (test code 0.5 See_Comment [Aut omated message] The = Monocytes #) system which generated this result tra nsmitted reference range : <=0.8. The reference r eric was not used to int erpret this result as normal/abnormal . [facility] TempleMqprlwgTLBCEFPPPJ1599-04-50 00:35:00 Test Item Value Reference Range Interpretation Comments Eosinophils # (test code 0.9 See_Comment [A utomated message] The = Eosinophils #) system whic h generated this result tra nsmitted reference range : <=0.5. The reference r eric was not used to int erpret this result as normal/abnormal . [facility] TempleWgwqslzISNIZYZLWJ0920-68-53 00:35:00 Test Item Value Reference Range Interpretation Comments Basophils # (test code 0.1 See_Comment [Aut omated message] The = Basophils #) system which generated this result tra nsmitted reference range : <=0.2. The reference r eric was not used to int erpret this result as normal/abnormal . [facility] TempleDthnutmXRYGTIBOOB1004-59-69 00:35:00 Test Item Value Reference Range Interpretation Comments WBC (test code = WBC) 6.4 3.7-10.4 [place] 834170-03-07 00:35:00 Test Item Value Reference Range Interpretation Comments RBC (test code = RBC) 4.04 4.20-5.40 [facility] TempleShizierHVYFDBPJDF3670-98-15 00:35:00 Test Item Value Reference Range Interpretation Comments Hgb (test code = Hgb) 10.4 12.0-16.0 [facility] TempleHwwmjokIHVBUGQYHN8032-76-06 00:35:00 Test Item Value Reference Range Interpretation Comments Hct (test code = Hct) 33.5 36.0-48.0 [facility] TempleGciygsePHRHURUUQQ4099-38-68 00:35:00 Test Item Value Reference Range Interpretation Comments MCV (test code = MCV) 82.9 80.0-98.0 [facility] TempleDjkxalwFZTJJQFZNC0734-62-99 00:35:00 Test Item Value Reference Range Interpretation Comments MCH (test code = MCH) 25.9 pg 27.0-31.0 [facility] TempleVhmcjlySMTRZDTNVB8202-25-59 00:35:00 Test Item Value Reference Range Interpretation Comments MCHC (test code = MCHC) 31.2 32.0-36.0 [facility] TempleIkkefvoKMJKYPDFGG7362-72-98 00:35:00 Test Item Value Reference Range Interpretation Comments RDW (test code = RDW) 14.9 11.5-14.5 [facility] TempleLazfcaiEIHRATNAPW8221-82-68 00:35:00 Test Item Value Reference Range Interpretation Comments Platelet (test code = Platelet) 282 133-450 [facility] TempleCukvtejBOIWUQXRVF1838-77-69 00:35:00 Test Item Value Reference Range Interpretation Comments MPV (test code = MPV) 8.8 7.4-10.4 [facility] TempleWrlvfrcOKROVSTAJD9985-65-84 00:35:00 Test Item Value Reference Range Interpretation Comments PT (test code = PT) 13.5 s 12.0-14.7 [place] 834170-03-07 00:35:00 Test Item Value Reference Range Interpretation Comments INR (test code = INR) 1.03 1 0.85-1.17 [place] 834170-03-07 00:35:00 Test Item Value Reference Range Interpretation Comments PTT (test code = PTT) 27.4 s 22.9-35.8 [facility]2020-02-08 09:04:00 Test Item Value Reference Range Interpretation Comments Glucose Lvl (test code = Glucose Lvl) 92 70-99 [facility]2020-02-08 09:04:00 Test Item Value Reference Range Interpretation Comments BUN (test code = BUN) 15 7-22 [place] 536200-02-08 09:04:00 Test Item Value Reference Range Interpretation Comments Creatinine Lvl (test code = Creatinine 0.72 0.50-1.40 Lvl) [facility]2020-02-08 09:04:00 Test Item Value Reference Range Interpretation Comments Sodium Lvl (test code = Sodium Lvl) 141 135-145 [facility]2020-02-08 09:04:00 Test Item Value Reference Range Interpretation Comments Potassium Lvl (test code = Potassium 3.9 3.5-5.1 Lvl) [facility]2020-02-08 09:04:00 Test Item Value Reference Range Interpretation Comments Chloride Lvl (test code = Chloride Lvl) 110 95-109 [facility]2020-02-08 09:04:00 Test Item Value Reference Range Interpretation Comments CO2 (test code = CO2) 26 24-32 [place] 536200-02-08 09:04:00 Test Item Value Reference Range Interpretation Comments Calcium Lvl (test code = Calcium Lvl) 8.6 8.5-10.5 [place] 536200-02-08 09:04:00 Test Item Value Reference Range Interpretation Comments AGAP (test code = AGAP) 8.9 10.0-20.0 [place] 536200-02-08 09:04:00 Test Item Value Reference Range Interpretation Comments eGFR (test code = eGFR) 84 [facility] TempleApeenkfNDLFTVPCMT5875-39-95 09:04:00 Test Item Value Reference Range Interpretation Comments WBC (test code = WBC) 6.7 3.7-10.4 [place] 834170-02-08 09:04:00 Test Item Value Reference Range Interpretation Comments RBC (test code = RBC) 3.39 4.20-5.40 [place] 834170-02-08 09:04:00 Test Item Value Reference Range Interpretation Comments Hgb (test code = Hgb) 9.0 12.0-16.0 [place] [address]-02-08 09:04:00 Test Item Value Reference Range Interpretation Comments Hct (test code = Hct) 27.8 36.0-48.0 [place] 834170-02-08 09:04:00 Test Item Value Reference Range Interpretation Comments MCV (test code = MCV) 82.2 80.0-98.0 [facility] TempleJlytaslBAQLIXWJXF9535-19-04 09:04:00 Test Item Value Reference Range Interpretation Comments MCH (test code = MCH) 26.7 pg 27.0-31.0 [facility] TempleGgffdlbMHCXUXSRRD6788-29-56 09:04:00 Test Item Value Reference Range Interpretation Comments MCHC (test code = MCHC) 32.5 32.0-36.0 [facility] TempleCdpryxdCXLNPMYGMQ1070-46-80 09:04:00 Test Item Value Reference Range Interpretation Comments RDW (test code = RDW) 14.9 11.5-14.5 [place] 834170-02-08 09:04:00 Test Item Value Reference Range Interpretation Comments Platelet (test code = Platelet) 252 133-450 [facility] TempleGryriawLSTCKWLPGW2550-00-54 09:04:00 Test Item Value Reference Range Interpretation Comments MPV (test code = MPV) 8.6 7.4-10.4 [place] 834170-02-08 09:04:00 Test Item Value Reference Range Interpretation Comments Segs (test code = Segs) 55.6 45.0-75.0 [facility] TempleLmofdveKGHKQKPHTK9115-86-86 09:04:00 Test Item Value Reference Range Interpretation Comments Lymphocytes (test code = Lymphocytes) 28.1 20.0-40.0 [facility] TempleQqmbwxaVSBETFFSVZ6517-37-69 09:04:00 Test Item Value Reference Range Interpretation Comments Monocytes (test code = Monocytes) 9.2 2.0-12.0 [place] 834170-02-08 09:04:00 Test Item Value Reference Range Interpretation Comments Eosinophils (test code = 6.1 See_Comment [A utomated message] The Eosinophils) system which ge nerated this result tra nsmitted reference range : <=4.0. The reference r eric was not used to int erpret this result as normal/abnormal . [facility] TempleZhxtjqxUUTWPEVWZO2628-16-82 09:04:00 Test Item Value Reference Range Interpretation Comments Basophils (test code = 1.0 See_Comment [Aut omated message] The Basophils) system which ge nerated this result tra nsmitted reference range : <=1.0. The reference r eric was not used to int erpret this result as normal/abnormal . [facility] TempleUhhulzxGCWWJAKRQG6520-83-08 09:04:00 Test Item Value Reference Range Interpretation Comments Neutrophils # (test code = Neutrophils 3.7 1.5-8.1 #) [facility] TempleFziazmdEQFJPLJCXA2259-57-37 09:04:00 Test Item Value Reference Range Interpretation Comments Lymphocytes # (test code = Lymphocytes 1.9 1.0-5.5 #) [place] 834170-02-08 09:04:00 Test Item Value Reference Range Interpretation Comments Monocytes # (test code 0.6 See_Comment [Aut omated message] The = Monocytes #) system which generated this result tra nsmitted reference range : <=0.8. The reference r eric was not used to int erpret this result as normal/abnormal . [place] 834170-02-08 09:04:00 Test Item Value Reference Range Interpretation Comments Eosinophils # (test code 0.4 See_Comment [A utomated message] The = Eosinophils #) system whic h generated this result tra nsmitted reference range : <=0.5. The reference r eric was not used to int erpret this result as normal/abnormal . [facility] TempleSgidzonSDJDFKLMQO0209-03-63 09:04:00 Test Item Value Reference Range Interpretation Comments Basophils # (test code 0.1 See_Comment [Aut omated message] The = Basophils #) system which generated this result tra nsmitted reference range : <=0.2. The reference r eric was not used to int erpret this result as normal/abnormal . [facility]2020-02-08 09:04:00 Test Item Value Reference Range Interpretation Comments Glucose Lvl (test code = Glucose Lvl) 92 70-99 [place] 536200-02-08 09:04:00 Test Item Value Reference Range Interpretation Comments BUN (test code = BUN) 15 7-22 [place] 536200-02-08 09:04:00 Test Item Value Reference Range Interpretation Comments Creatinine Lvl (test code = Creatinine 0.72 0.50-1.40 Lvl) [place] 536200-02-08 09:04:00 Test Item Value Reference Range Interpretation Comments Sodium Lvl (test code = Sodium Lvl) 141 135-145 [facility]2020-02-08 09:04:00 Test Item Value Reference Range Interpretation Comments Potassium Lvl (test code = Potassium 3.9 3.5-5.1 Lvl) [facility]2020-02-08 09:04:00 Test Item Value Reference Range Interpretation Comments Chloride Lvl (test code = Chloride Lvl) 110 95-109 [facility]2020-02-08 09:04:00 Test Item Value Reference Range Interpretation Comments CO2 (test code = CO2) 26 24-32 [place] 536200-02-08 09:04:00 Test Item Value Reference Range Interpretation Comments Calcium Lvl (test code = Calcium Lvl) 8.6 8.5-10.5 [facility]2020-02-08 09:04:00 Test Item Value Reference Range Interpretation Comments AGAP (test code = AGAP) 8.9 10.0-20.0 [facility]2020-02-08 09:04:00 Test Item Value Reference Range Interpretation Comments eGFR (test code = eGFR) 84 [facility] TempleLgvvyxwVVDRXSXWHU5133-04-78 09:04:00 Test Item Value Reference Range Interpretation Comments WBC (test code = WBC) 6.7 3.7-10.4 [place] 834170-02-08 09:04:00 Test Item Value Reference Range Interpretation Comments RBC (test code = RBC) 3.39 4.20-5.40 [place] 834170-02-08 09:04:00 Test Item Value Reference Range Interpretation Comments Hgb (test code = Hgb) 9.0 12.0-16.0 [place] 834170-02-08 09:04:00 Test Item Value Reference Range Interpretation Comments Hct (test code = Hct) 27.8 36.0-48.0 [place] 834170-02-08 09:04:00 Test Item Value Reference Range Interpretation Comments MCV (test code = MCV) 82.2 80.0-98.0 [place] 834170-02-08 09:04:00 Test Item Value Reference Range Interpretation Comments MCH (test code = MCH) 26.7 pg 27.0-31.0 [place] 834170-02-08 09:04:00 Test Item Value Reference Range Interpretation Comments MCHC (test code = MCHC) 32.5 32.0-36.0 [facility] TempleWbkjqniFCKLXETCKN8302-16-08 09:04:00 Test Item Value Reference Range Interpretation Comments RDW (test code = RDW) 14.9 11.5-14.5 [facility] TempleUsrhswoEOZHKXKWQC3026-49-24 09:04:00 Test Item Value Reference Range Interpretation Comments Platelet (test code = Platelet) 252 133-450 [facility] TemplePxioexrSYRDAXZFPZ8770-63-63 09:04:00 Test Item Value Reference Range Interpretation Comments MPV (test code = MPV) 8.6 7.4-10.4 [facility] TempleNagtoavUIZPUQCOVP6222-19-56 09:04:00 Test Item Value Reference Range Interpretation Comments Segs (test code = Segs) 55.6 45.0-75.0 [facility] TempleDwrjnexQHMAPRVIYD7246-34-37 09:04:00 Test Item Value Reference Range Interpretation Comments Lymphocytes (test code = Lymphocytes) 28.1 20.0-40.0 [facility] TempleVarhcsnLUYXZUOOMT8465-15-29 09:04:00 Test Item Value Reference Range Interpretation Comments Monocytes (test code = Monocytes) 9.2 2.0-12.0 [facility] TempleQidwrelYSTKOCRPWW6914-07-40 09:04:00 Test Item Value Reference Range Interpretation Comments Eosinophils (test code = 6.1 See_Comment [A utomated message] The Eosinophils) system which ge nerated this result tra nsmitted reference range : <=4.0. The reference r eric was not used to int erpret this result as normal/abnormal . [facility] TempleWnmfqvkAWCKQFQCQF8630-56-86 09:04:00 Test Item Value Reference Range Interpretation Comments Basophils (test code = 1.0 See_Comment [Aut omated message] The Basophils) system which ge nerated this result tra nsmitted reference range : <=1.0. The reference r eric was not used to int erpret this result as normal/abnormal . [facility] TempleTtneiycPRGQTCTASQ7446-99-88 09:04:00 Test Item Value Reference Range Interpretation Comments Neutrophils # (test code = Neutrophils 3.7 1.5-8.1 #) [facility] TempleAmkppjsKNRDCCLKZY6282-36-19 09:04:00 Test Item Value Reference Range Interpretation Comments Lymphocytes # (test code = Lymphocytes 1.9 1.0-5.5 #) [facility] TempleInvmlyoTDTFUDZRMC6592-62-91 09:04:00 Test Item Value Reference Range Interpretation Comments Monocytes # (test code 0.6 See_Comment [Aut omated message] The = Monocytes #) system which generated this result tra nsmitted reference range : <=0.8. The reference r eric was not used to int erpret this result as normal/abnormal . [facility] TempleHquvqkoWXMKOPXXUI6177-14-24 09:04:00 Test Item Value Reference Range Interpretation Comments Eosinophils # (test code 0.4 See_Comment [A utomated message] The = Eosinophils #) system whic h generated this result tra nsmitted reference range : <=0.5. The reference r eric was not used to int erpret this result as normal/abnormal . [place] [address]-02-08 09:04:00 Test Item Value Reference Range Interpretation Comments Basophils # (test code 0.1 See_Comment [Aut omated message] The = Basophils #) system which generated this result tra nsmitted reference range : <=0.2. The reference r eric was not used to int erpret this result as normal/abnormal . [facility]2020-02-08 09:04:00 Test Item Value Reference Range Interpretation Comments Glucose Lvl (test code = Glucose Lvl) 92 70-99 [place] 536200-02-08 09:04:00 Test Item Value Reference Range Interpretation Comments BUN (test code = BUN) 15 7-22 [place] 536200-02-08 09:04:00 Test Item Value Reference Range Interpretation Comments Creatinine Lvl (test code = Creatinine 0.72 0.50-1.40 Lvl) [place] 536200-02-08 09:04:00 Test Item Value Reference Range Interpretation Comments Sodium Lvl (test code = Sodium Lvl) 141 135-145 [place] 536200-02-08 09:04:00 Test Item Value Reference Range Interpretation Comments Potassium Lvl (test code = Potassium 3.9 3.5-5.1 Lvl) [place] [address]-02-08 09:04:00 Test Item Value Reference Range Interpretation Comments Chloride Lvl (test code = Chloride Lvl) 110 95-109 [facility]2020-02-08 09:04:00 Test Item Value Reference Range Interpretation Comments CO2 (test code = CO2) 26 24-32 [facility] [id number] 09:04:00 Test Item Value Reference Range Interpretation Comments Calcium Lvl (test code = Calcium Lvl) 8.6 8.5-10.5 [facility] IZJKJ1107-05-24 09:04:00 Test Item Value Reference Range Interpretation Comments AGAP (test code = AGAP) 8.9 10.0-20.0 [facility]2020-02-08 09:04:00 Test Item Value Reference Range Interpretation Comments eGFR (test code = eGFR) 84 [facility] TempleHnfrdqqIZCCZDQUTJ0261-29-37 09:04:00 Test Item Value Reference Range Interpretation Comments WBC (test code = WBC) 6.7 3.7-10.4 [facility] TempleItbummmFGOELZLXHW2544-85-62 09:04:00 Test Item Value Reference Range Interpretation Comments RBC (test code = RBC) 3.39 4.20-5.40 [facility] TempleCqjmpiqVBUDBOCZUK5061-80-89 09:04:00 Test Item Value Reference Range Interpretation Comments Hgb (test code = Hgb) 9.0 12.0-16.0 [facility] TemplePohodctMMZWKURGDG6011-27-59 09:04:00 Test Item Value Reference Range Interpretation Comments Hct (test code = Hct) 27.8 36.0-48.0 [place] 834170-02-08 09:04:00 Test Item Value Reference Range Interpretation Comments MCV (test code = MCV) 82.2 80.0-98.0 [place] 834170-02-08 09:04:00 Test Item Value Reference Range Interpretation Comments MCH (test code = MCH) 26.7 pg 27.0-31.0 [facility] TempleXfardgmTWIHYHFSUU9750-38-16 09:04:00 Test Item Value Reference Range Interpretation Comments MCHC (test code = MCHC) 32.5 32.0-36.0 [place] 834170-02-08 09:04:00 Test Item Value Reference Range Interpretation Comments RDW (test code = RDW) 14.9 11.5-14.5 [place] 834170-02-08 09:04:00 Test Item Value Reference Range Interpretation Comments Platelet (test code = Platelet) 252 133-450 [facility] TempleFxelcqjADYILDFQXW8909-40-23 09:04:00 Test Item Value Reference Range Interpretation Comments MPV (test code = MPV) 8.6 7.4-10.4 [facility] TempleZyzsbdzBFQZIHZGRS7573-93-13 09:04:00 Test Item Value Reference Range Interpretation Comments Segs (test code = Segs) 55.6 45.0-75.0 [facility] TempleLytyswxCGCUTXRFUM8881-44-05 09:04:00 Test Item Value Reference Range Interpretation Comments Lymphocytes (test code = Lymphocytes) 28.1 20.0-40.0 [facility] TempleZgwrsmhOQOZQIKIQC5660-11-20 09:04:00 Test Item Value Reference Range Interpretation Comments Monocytes (test code = Monocytes) 9.2 2.0-12.0 [facility] TempleIccvzbyHHPHLBYODY0791-20-39 09:04:00 Test Item Value Reference Range Interpretation Comments Eosinophils (test code = 6.1 See_Comment [A utomated message] The Eosinophils) system which ge nerated this result tra nsmitted reference range : <=4.0. The reference r eric was not used to int erpret this result as normal/abnormal . [facility] TempleDfhnbvcWVLKKUUIKO2741-77-43 09:04:00 Test Item Value Reference Range Interpretation Comments Basophils (test code = 1.0 See_Comment [Aut omated message] The Basophils) system which ge nerated this result tra nsmitted reference range : <=1.0. The reference r eric was not used to int erpret this result as normal/abnormal . [facility] TempleHeenbnsDQGYQAGENQ7118-48-07 09:04:00 Test Item Value Reference Range Interpretation Comments Neutrophils # (test code = Neutrophils 3.7 1.5-8.1 #) [facility] TempleIvtzndbDWTOZXDKHS5930-24-42 09:04:00 Test Item Value Reference Range Interpretation Comments Lymphocytes # (test code = Lymphocytes 1.9 1.0-5.5 #) [facility] TempleFcnsjbeQHOQVWDFZD3185-47-72 09:04:00 Test Item Value Reference Range Interpretation Comments Monocytes # (test code 0.6 See_Comment [Aut omated message] The = Monocytes #) system which generated this result tra nsmitted reference range : <=0.8. The reference r eric was not used to int erpret this result as normal/abnormal . [facility] TempleVvllwmlUCUFLKNBLT8773-72-37 09:04:00 Test Item Value Reference Range Interpretation Comments Eosinophils # (test code 0.4 See_Comment [A utomated message] The = Eosinophils #) system whic h generated this result tra nsmitted reference range : <=0.5. The reference r eric was not used to int erpret this result as normal/abnormal . [place] 834170-02-08 09:04:00 Test Item Value Reference Range Interpretation Comments Basophils # (test code 0.1 See_Comment [Aut omated message] The = Basophils #) system which generated this result tra nsmitted reference range : <=0.2. The reference r eric was not used to int erpret this result as normal/abnormal . [facility]2020-02-07 09:19:00 Test Item Value Reference Range Interpretation Comments Glucose Lvl (test code = Glucose Lvl) [facility] [id number] 09:19:00 Test Item Value Reference Range Interpretation Comments BUN (test code = BUN) 20 7-22 [place] 536200-02-07 09:19:00 Test Item Value Reference Range Interpretation Comments Creatinine Lvl (test code = Creatinine 0.71 0.50-1.40 Lvl) [facility]2020-02-07 09:19:00 Test Item Value Reference Range Interpretation Comments Sodium Lvl (test code = Sodium Lvl) 141 135-145 [place] 536200-02-07 09:19:00 Test Item Value Reference Range Interpretation Comments Potassium Lvl (test code = Potassium 4.0 3.5-5.1 Lvl) [facility]2020-02-07 09:19:00 Test Item Value Reference Range Interpretation Comments Chloride Lvl (test code = Chloride Lvl) 108 95-[address] [facility] [id number] 09:19:00 Test Item Value Reference Range Interpretation Comments CO2 (test code = CO2) 24 24-32 [place] 536200-02-07 09:19:00 Test Item Value Reference Range Interpretation Comments AGAP (test code = AGAP) 13.0 10.0-20.[address] [facility] [id number] 09:19:00 Test Item Value Reference Range Interpretation Comments Calcium Lvl (test code = Calcium Lvl) 9.1 8.5-10.5 [facility]2020-02-07 09:19:00 Test Item Value Reference Range Interpretation Comments B/C Ratio (test code = B/C Ratio) 28 1 6-25 [place] 536200-02-07 09:19:00 Test Item Value Reference Range Interpretation Comments Total Protein (test code = Total 6.3 6.4-8.4 Protein) [facility]2020-02-07 09:19:00 Test Item Value Reference Range Interpretation Comments Albumin Lvl (test code = Albumin Lvl) 2.9 3.5-5.0 [place] 536200-02-07 09:19:00 Test Item Value Reference Range Interpretation Comments Globulin (test code = Globulin) 3.4 2.7-4.2 [facility]2020-02-07 09:19:00 Test Item Value Reference Range Interpretation Comments A/G Ratio (test code = A/G Ratio) 0.9 1 0.7-1.6 [facility]2020-02-07 09:19:00 Test Item Value Reference Range Interpretation Comments ALT (test code = ALT) 15 See_Comment [Auto mated message] The system which ge nerated this result transmit thelma reference range : <=65. The reference range was not used to interpr et this result as zana l/abnormal. [facility] [id number] 09:19:00 Test Item Value Reference Range Interpretation Comments AST (test code = AST) 16 See_Comment [Auto mated message] The system which ge nerated this result transmit thelma reference range : <=37. The reference range was not used to interpr et this result as zana l/abnormal. [place] 536200-02-07 09:19:00 Test Item Value Reference Range Interpretation Comments Alk Phos (test code = Alk Phos) 56 39-136 [place] 536200-02-07 09:19:00 Test Item Value Reference Range Interpretation Comments Bili Total (test code = Bili Total) 0.3 0.2-1.[address] [facility] GXMWY1534-04-04 09:19:00 Test Item Value Reference Range Interpretation Comments eGFR (test code = eGFR) 84 [facility] TempleGtfnonuUCARNPIGJS3760-32-22 09:19:00 Test Item Value Reference Range Interpretation Comments Segs (test code = Segs) 75.0 45.0-75.0 [facility] TempleMxtxqpjWWHXSRJNGS0500-22-35 09:19:00 Test Item Value Reference Range Interpretation Comments Lymphocytes (test code = Lymphocytes) 14.1 20.0-40.0 [facility] TempleQigkyepPIZXMJTHCG0898-00-83 09:19:00 Test Item Value Reference Range Interpretation Comments Monocytes (test code = Monocytes) 8.4 2.0-12.0 [place] 834170-02-07 09:19:00 Test Item Value Reference Range Interpretation Comments Eosinophils (test code = 1.9 See_Comment [A utomated message] The Eosinophils) system which ge nerated this result tra nsmitted reference range : <=4.0. The reference r eric was not used to int erpret this result as normal/abnormal . [facility] TempleYojnmcbOYTTASDGIA1060-80-97 09:19:00 Test Item Value Reference Range Interpretation Comments Basophils (test code = 0.6 See_Comment [Aut omated message] The Basophils) system which ge nerated this result tra nsmitted reference range : <=1.0. The reference r eric was not used to int erpret this result as normal/abnormal . [facility] TempleVbrzyiiZCKZXVINOD1923-88-54 09:19:00 Test Item Value Reference Range Interpretation Comments Neutrophils # (test code = Neutrophils 8.1 1.5-8.1 #) [facility] TempleFapxbzmTYZCXOWXTU7010-75-99 09:19:00 Test Item Value Reference Range Interpretation Comments Lymphocytes # (test code = Lymphocytes 1.5 1.0-5.5 #) [place] 834170-02-07 09:19:00 Test Item Value Reference Range Interpretation Comments Monocytes # (test code 0.9 See_Comment [Aut omated message] The = Monocytes #) system which generated this result tra nsmitted reference range : <=0.8. The reference r eric was not used to int erpret this result as normal/abnormal . [facility] TempleHhoiqjcQOSDXPQEOX6692-63-93 09:19:00 Test Item Value Reference Range Interpretation Comments Eosinophils # (test code 0.2 See_Comment [A utomated message] The = Eosinophils #) system whic h generated this result tra nsmitted reference range : <=0.5. The reference r eric was not used to int erpret this result as normal/abnormal . [facility] TempleVrcaflqKXJWHSCSAU4921-88-67 09:19:00 Test Item Value Reference Range Interpretation Comments Basophils # (test code 0.1 See_Comment [Aut omated message] The = Basophils #) system which generated this result tra nsmitted reference range : <=0.2. The reference r eric was not used to int erpret this result as normal/abnormal . [facility] TempleEaucgptFOKBTOCINA1048-79-20 09:19:00 Test Item Value Reference Range Interpretation Comments WBC (test code = WBC) 10.8 3.7-10.4 [facility] TempleYjzbafxEHIKKJNLYU2729-17-05 09:19:00 Test Item Value Reference Range Interpretation Comments RBC (test code = RBC) 3.78 4.20-5.40 [facility] TempleAmxmekjTKFWHGFZSI8668-73-70 09:19:00 Test Item Value Reference Range Interpretation Comments Hgb (test code = Hgb) 9.9 12.0-16.0 [facility] TempleRzeawndICIFMCJYRS4655-31-12 09:19:00 Test Item Value Reference Range Interpretation Comments Hct (test code = Hct) 30.9 36.0-48.0 [facility] TempleFagbnbdYXXWHEBAHN9435-70-52 09:19:00 Test Item Value Reference Range Interpretation Comments MCV (test code = MCV) 81.9 80.0-98.0 [facility] TempleHzxnvtaUGFBUCOCSM4690-10-02 09:19:00 Test Item Value Reference Range Interpretation Comments MCH (test code = MCH) 26.3 pg 27.0-31.0 [facility] TempleTnveqsaZVPZEATVEE1688-06-90 09:19:00 Test Item Value Reference Range Interpretation Comments MCHC (test code = MCHC) 32.1 32.0-36.0 [facility] TempleXrvqiodKINZDFFJLG6523-13-87 09:19:00 Test Item Value Reference Range Interpretation Comments RDW (test code = RDW) 15.2 11.5-14.5 [place] 834170-02-07 09:19:00 Test Item Value Reference Range Interpretation Comments Platelet (test code = Platelet) 298 133-450 [facility] TempleYezpxtwDXUNMHFNQW4467-93-75 09:19:00 Test Item Value Reference Range Interpretation Comments MPV (test code = MPV) 8.2 7.4-10.4 [place] 536200-02-07 09:19:00 Test Item Value Reference Range Interpretation Comments Glucose Lvl (test code = Glucose Lvl) 72 70-99 [place] 536200-02-07 09:19:00 Test Item Value Reference Range Interpretation Comments BUN (test code = BUN) 20 7-22 [place] 536200-02-07 09:19:00 Test Item Value Reference Range Interpretation Comments Creatinine Lvl (test code = Creatinine 0.71 0.50-1.40 Lvl) [place] 536200-02-07 09:19:00 Test Item Value Reference Range Interpretation Comments Sodium Lvl (test code = Sodium Lvl) 141 135-145 [facility]2020-02-07 09:19:00 Test Item Value Reference Range Interpretation Comments Potassium Lvl (test code = Potassium 4.0 3.5-5.1 Lvl) [facility]2020-02-07 09:19:00 Test Item Value Reference Range Interpretation Comments Chloride Lvl (test code = Chloride Lvl) 108 95-109 [facility]2020-02-07 09:19:00 Test Item Value Reference Range Interpretation Comments CO2 (test code = CO2) 24 24-32 [facility]2020-02-07 09:19:00 Test Item Value Reference Range Interpretation Comments AGAP (test code = AGAP) 13.0 10.0-20.0 [place] 536200-02-07 09:19:00 Test Item Value Reference Range Interpretation Comments Calcium Lvl (test code = Calcium Lvl) 9.1 8.5-10.5 [place] 536200-02-07 09:19:00 Test Item Value Reference Range Interpretation Comments B/C Ratio (test code = B/C Ratio) 28 1 6-25 [place] 536200-02-07 09:19:00 Test Item Value Reference Range Interpretation Comments Total Protein (test code = Total 6.3 6.4-8.4 Protein) [place] 536200-02-07 09:19:00 Test Item Value Reference Range Interpretation Comments Albumin Lvl (test code = Albumin Lvl) 2.9 3.5-5.0 [place] [address]-02-07 09:19:00 Test Item Value Reference Range Interpretation Comments Globulin (test code = Globulin) 3.4 2.7-4.2 [place] 536200-02-07 09:19:00 Test Item Value Reference Range Interpretation Comments A/G Ratio (test code = A/G Ratio) 0.9 1 0.7-1.6 [place] [address]-02-07 09:19:00 Test Item Value Reference Range Interpretation Comments ALT (test code = ALT) 15 See_Comment [Auto mated message] The system which ge nerated this result transmit thelma reference range : <=65. The reference range was not used to interpr et this result as zana l/abnormal. [place] [address]-02-07 09:19:00 Test Item Value Reference Range Interpretation Comments AST (test code = AST) 16 See_Comment [Auto mated message] The system which ge nerated this result transmit thelma reference range : <=37. The reference range was not used to interpr et this result as zana l/abnormal. [place] 536200-02-07 09:19:00 Test Item Value Reference Range Interpretation Comments Alk Phos (test code = Alk Phos) 56 39-136 [facility] [id number] 09:19:00 Test Item Value Reference Range Interpretation Comments Bili Total (test code = Bili Total) 0.3 0.2-1.3 [place] 536200-02-07 09:19:00 Test Item Value Reference Range Interpretation Comments eGFR (test code = eGFR) 84 [place] [address]-02-07 09:19:00 Test Item Value Reference Range Interpretation Comments Segs (test code = Segs) 75.0 45.0-75.0 [place] [address]-02-07 09:19:00 Test Item Value Reference Range Interpretation Comments Lymphocytes (test code = Lymphocytes) 14.1 20.0-40.0 [place] [address]-02-07 09:19:00 Test Item Value Reference Range Interpretation Comments Monocytes (test code = Monocytes) 8.4 2.0-12.[address] [facility]JljcfqmUHTFQIOJSC1466-22-02 09:19:00 Test Item Value Reference Range Interpretation Comments Eosinophils (test code = 1.9 See_Comment [A utomated message] The Eosinophils) system which ge nerated this result tra nsmitted reference range : <=4.0. The reference r eric was not used to int erpret this result as normal/abnormal . [facility] TempleHpbeotbMLRJDBQJDV0075-64-28 09:19:00 Test Item Value Reference Range Interpretation Comments Basophils (test code = 0.6 See_Comment [Aut omated message] The Basophils) system which ge nerated this result tra nsmitted reference range : <=1.0. The reference r eric was not used to int erpret this result as normal/abnormal . [facility] TempleBzmpbjhGTCUUIZGND4346-84-99 09:19:00 Test Item Value Reference Range Interpretation Comments Neutrophils # (test code = Neutrophils 8.1 1.5-8.1 #) [facility] TempleZbuwmvrRLOZYXRPGS2168-20-20 09:19:00 Test Item Value Reference Range Interpretation Comments Lymphocytes # (test code = Lymphocytes 1.5 1.0-5.5 #) [facility] TempleXfmtxlkMZEIZOMINB1533-44-91 09:19:00 Test Item Value Reference Range Interpretation Comments Monocytes # (test code 0.9 See_Comment [Aut omated message] The = Monocytes #) system which generated this result tra nsmitted reference range : <=0.8. The reference r eric was not used to int erpret this result as normal/abnormal . [facility] TempleRkzdmbqPBQSXGJKJB6629-56-12 09:19:00 Test Item Value Reference Range Interpretation Comments Eosinophils # (test code 0.2 See_Comment [A utomated message] The = Eosinophils #) system whic h generated this result tra nsmitted reference range : <=0.5. The reference r eric was not used to int erpret this result as normal/abnormal . [facility] TempleNpemyujAWKMUEKPJB2460-18-23 09:19:00 Test Item Value Reference Range Interpretation Comments Basophils # (test code 0.1 See_Comment [Aut omated message] The = Basophils #) system which generated this result tra nsmitted reference range : <=0.2. The reference r eric was not used to int erpret this result as normal/abnormal . [place] 834170-02-07 09:19:00 Test Item Value Reference Range Interpretation Comments WBC (test code = WBC) 10.8 3.7-10.4 [facility] TempleApurthiGHKCLCJIYA2718-33-46 09:19:00 Test Item Value Reference Range Interpretation Comments RBC (test code = RBC) 3.78 4.20-5.40 [facility] TempleKrvjsucDJHMAZSMJQ4349-82-19 09:19:00 Test Item Value Reference Range Interpretation Comments Hgb (test code = Hgb) 9.9 12.0-16.0 [facility] TempleIexcsggFGMPBDPELA2223-80-58 09:19:00 Test Item Value Reference Range Interpretation Comments Hct (test code = Hct) 30.9 36.0-48.0 [facility] TempleXkijropVALQYOVBUM9818-89-65 09:19:00 Test Item Value Reference Range Interpretation Comments MCV (test code = MCV) 81.9 80.0-98.0 [facility] TempleLcqygmuQPKZANHUVH7489-02-51 09:19:00 Test Item Value Reference Range Interpretation Comments MCH (test code = MCH) 26.3 pg 27.0-31.0 [facility] TempleMfoasjzOGLPBDXSNT2343-16-62 09:19:00 Test Item Value Reference Range Interpretation Comments MCHC (test code = MCHC) 32.1 32.0-36.0 [facility] TempleXcphewgXCWPCUDNCQ7511-90-21 09:19:00 Test Item Value Reference Range Interpretation Comments RDW (test code = RDW) 15.2 11.5-14.5 [facility] TempleRyvnwerRTKLWMUKSU2340-79-41 09:19:00 Test Item Value Reference Range Interpretation Comments Platelet (test code = Platelet) 298 133-450 [facility] TempleDzyazgrNRVCRHMHOC9477-60-13 09:19:00 Test Item Value Reference Range Interpretation Comments MPV (test code = MPV) 8.2 7.4-10.4 [facility]2020-02-07 09:19:00 Test Item Value Reference Range Interpretation Comments Glucose Lvl (test code = Glucose Lvl) 72 70-99 [facility]2020-02-07 09:19:00 Test Item Value Reference Range Interpretation Comments BUN (test code = BUN) 20 7-22 [place] 536200-02-07 09:19:00 Test Item Value Reference Range Interpretation Comments Creatinine Lvl (test code = Creatinine 0.71 0.50-1.40 Lvl) [facility]2020-02-07 09:19:00 Test Item Value Reference Range Interpretation Comments Sodium Lvl (test code = Sodium Lvl) 141 135-145 [facility]2020-02-07 09:19:00 Test Item Value Reference Range Interpretation Comments Potassium Lvl (test code = Potassium 4.0 3.5-5.1 Lvl) [facility]2020-02-07 09:19:00 Test Item Value Reference Range Interpretation Comments Chloride Lvl (test code = Chloride Lvl) 108 95-109 [facility]2020-02-07 09:19:00 Test Item Value Reference Range Interpretation Comments CO2 (test code = CO2) 24 24-32 [facility]2020-02-07 09:19:00 Test Item Value Reference Range Interpretation Comments AGAP (test code = AGAP) 13.0 10.0-20.0 [facility]2020-02-07 09:19:00 Test Item Value Reference Range Interpretation Comments Calcium Lvl (test code = Calcium Lvl) 9.1 8.5-10.5 [facility]2020-02-07 09:19:00 Test Item Value Reference Range Interpretation Comments B/C Ratio (test code = B/C Ratio) 28 1 6-25 [facility]2020-02-07 09:19:00 Test Item Value Reference Range Interpretation Comments Total Protein (test code = Total 6.3 6.4-8.4 Protein) [facility]2020-02-07 09:19:00 Test Item Value Reference Range Interpretation Comments Albumin Lvl (test code = Albumin Lvl) 2.9 3.5-5.0 [facility]2020-02-07 09:19:00 Test Item Value Reference Range Interpretation Comments Globulin (test code = Globulin) 3.4 2.7-4.2 [facility]2020-02-07 09:19:00 Test Item Value Reference Range Interpretation Comments A/G Ratio (test code = A/G Ratio) 0.9 1 0.7-1.6 [place] 536200-02-07 09:19:00 Test Item Value Reference Range Interpretation Comments ALT (test code = ALT) 15 See_Comment [Auto mated message] The system which ge nerated this result transmit thelma reference range : <=65. The reference range was not used to interpr et this result as zana l/abnormal. [facility]2020-02-07 09:19:00 Test Item Value Reference Range Interpretation Comments AST (test code = AST) 16 See_Comment [Auto mated message] The system which ge nerated this result transmit thelma reference range : <=37. The reference range was not used to interpr et this result as zana l/abnormal. [place] 536200-02-07 09:19:00 Test Item Value Reference Range Interpretation Comments Alk Phos (test code = Alk Phos) 56 39-136 [place] 536200-02-07 09:19:00 Test Item Value Reference Range Interpretation Comments Bili Total (test code = Bili Total) 0.3 0.2-1.3 [facility]2020-02-07 09:19:00 Test Item Value Reference Range Interpretation Comments eGFR (test code = eGFR) 84 [facility] TempleDoewxvpNJYRFCSNKV6423-79-69 09:19:00 Test Item Value Reference Range Interpretation Comments Segs (test code = Segs) 75.0 45.0-75.0 [place] 834170-02-07 09:19:00 Test Item Value Reference Range Interpretation Comments Lymphocytes (test code = Lymphocytes) 14.1 20.0-40.0 [facility] TempleMezhjjzEFZMFVPMLC8624-40-64 09:19:00 Test Item Value Reference Range Interpretation Comments Monocytes (test code = Monocytes) 8.4 2.0-12.0 [facility] TempleKwaizdfVQGIFQDQHN3981-40-03 09:19:00 Test Item Value Reference Range Interpretation Comments Eosinophils (test code = 1.9 See_Comment [A utomated message] The Eosinophils) system which ge nerated this result tra nsmitted reference range : <=4.0. The reference r eric was not used to int erpret this result as normal/abnormal . [facility] TempleXbjamesCFMJRBLJVS3747-69-76 09:19:00 Test Item Value Reference Range Interpretation Comments Basophils (test code = 0.6 See_Comment [Aut omated message] The Basophils) system which ge nerated this result tra nsmitted reference range : <=1.0. The reference r eric was not used to int erpret this result as normal/abnormal . [facility] TempleGnlpeteIEUHXPTHQB7897-14-16 09:19:00 Test Item Value Reference Range Interpretation Comments Neutrophils # (test code = Neutrophils 8.1 1.5-8.1 #) [facility] TemplePjsjqkfJTWNWAFZCJ3990-71-98 09:19:00 Test Item Value Reference Range Interpretation Comments Lymphocytes # (test code = Lymphocytes 1.5 1.0-5.5 #) [facility] TempleOkbjghaKHSPVLLFIV4355-86-76 09:19:00 Test Item Value Reference Range Interpretation Comments Monocytes # (test code 0.9 See_Comment [Aut omated message] The = Monocytes #) system which generated this result tra nsmitted reference range : <=0.8. The reference r eric was not used to int erpret this result as normal/abnormal . [facility] TempleDxxjqgqNKJAMSLVUQ6043-01-10 09:19:00 Test Item Value Reference Range Interpretation Comments Eosinophils # (test code 0.2 See_Comment [A utomated message] The = Eosinophils #) system whic h generated this result tra nsmitted reference range : <=0.5. The reference r eric was not used to int erpret this result as normal/abnormal . [facility] TemplePyiolxcFTONTAYGIO8861-05-55 09:19:00 Test Item Value Reference Range Interpretation Comments Basophils # (test code 0.1 See_Comment [Aut omated message] The = Basophils #) system which generated this result tra nsmitted reference range : <=0.2. The reference r eric was not used to int erpret this result as normal/abnormal . [facility] TempleDoojoygSIPWURJBFE2243-10-63 09:19:00 Test Item Value Reference Range Interpretation Comments WBC (test code = WBC) 10.8 3.7-10.4 [facility] TempleMduiitoBRHANXXTIS4301-11-26 09:19:00 Test Item Value Reference Range Interpretation Comments RBC (test code = RBC) 3.78 4.20-5.40 [place] 834170-02-07 09:19:00 Test Item Value Reference Range Interpretation Comments Hgb (test code = Hgb) 9.9 12.0-16.0 [place] [address]-02-07 09:19:00 Test Item Value Reference Range Interpretation Comments Hct (test code = Hct) 30.9 36.0-48.0 [place] 834170-02-07 09:19:00 Test Item Value Reference Range Interpretation Comments MCV (test code = MCV) 81.9 80.0-98.0 [facility] TempleZyvurldWRWDKDGQKE0966-54-40 09:19:00 Test Item Value Reference Range Interpretation Comments MCH (test code = MCH) 26.3 pg 27.0-31.0 [facility] TempleAapupycFULWHYMQKV0330-42-87 09:19:00 Test Item Value Reference Range Interpretation Comments MCHC (test code = MCHC) 32.1 32.0-36.0 [facility] TempleVgshqsrNSZZGZRXPW0891-30-95 09:19:00 Test Item Value Reference Range Interpretation Comments RDW (test code = RDW) 15.2 11.5-14.5 [facility] TempleOufskqqXYMJETNQNY2196-62-96 09:19:00 Test Item Value Reference Range Interpretation Comments Platelet (test code = Platelet) 298 133-450 [facility] TempleThnouclLKRQUHAGDX6876-31-64 09:19:00 Test Item Value Reference Range Interpretation Comments MPV (test code = MPV) 8.2 7.4-10.4 [facility] AND [id number] 08:04:00 Test Item Value Reference Range Interpretation Comments UA Turbidity (test code = Clear (10/21/19 2:04 UA Turbidity) AM) [facility] AND [id number] 08:04:00 Test Item Value Reference Range Interpretation Comments UA Spec Grav (test code = UA Spec 1.033 1 Grav) [facility] AND [id number] 08:04:00 Test Item Value Reference Range Interpretation Comments UA pH (test code = UA pH) 8.0 1 5.0-8.0 [facility] AND [id number] 08:04:00 Test Item Value Reference Range Interpretation Comments UA Protein (test code = UA Negative mg/dL Protein) [facility] AND [id number] 08:04:00 Test Item Value Reference Range Interpretation Comments UA Glucose (test code = UA Negative mg/dL Glucose) [facility] AND [id number] 08:04:00 Test Item Value Reference Range Interpretation Comments UA Ketones (test code = UA Ketones) 20 mg/dL [facility] AND [id number] 08:04:00 Test Item Value Reference Range Interpretation Comments UA Bili (test code = Negative *NA*(10/21/19 [facility]A Bili) 2:04 AM) [facility] [id number] 08:04:00 Test Item Value Reference Range Interpretation Comments UA Blood (test code = Negative (10/21/19 2:04 [facility]A Blood) AM) [facility] [id number] 08:04:00 Test Item Value Reference Range Interpretation Comments UA Nitrite (test code Negative (10/21/19 2:04 = UA Nitrite) AM) [facility] [id number] 08:04:00 Test Item Value Reference Range Interpretation Comments UA Leuk Est (test Negative (10/21/19 2:04 code = UA Leuk Est) AM) [facility] [id number] 08:04:00 Test Item Value Reference Range Interpretation Comments UA Sq Epi (test code = UA Sq Epi) Few /LPF [facility] [id number] 08:04:00 Test Item Value Reference Range Interpretation Comments UA WBC (test code = 4 See_Comment [Automa thelma message] The UA WBC) system which ge nerated this result transmit thelma reference range : <=5. The reference range was not used to interpr et this result as zana l/abnormal. [facility] [id number] 08:04:00 Test Item Value Reference Range Interpretation Comments UA RBC (test code = 1 See_Comment [Automa thelma message] The UA RBC) system which ge nerated this result transmit thelma reference range : <=2. The reference range was not used to interpr et this result as zana l/abnormal. [facility] [id number] 08:04:00 Test Item Value Reference Range Interpretation Comments UA Bacteria (test code = UA Occasional /HPF Bacteria) [facility] [id number] 08:04:00 Test Item Value Reference Range Interpretation Comments UA Hyal Cast (test 1 See_Comment [Automat ed message] The code = UA Hyal Cast) system which generated this result transmit thelma reference range : <=2. The reference range was not used to interpr et this result as zana l/abnormal. [facility] [id number] 08:04:00 Test Item Value Reference Range Interpretation Comments UA Color (test code = UA Color) YELLOW [facility] [id number] 08:04:00 Test Item Value Reference Range Interpretation Comments UA Urobilinogen (test code = UA <=1.0 mg/dL 0.1-1.0 Urobilinogen) [facility] AND [id number] 08:04:00 Test Item Value Reference Range Interpretation Comments UA Turbidity (test code = Clear (10/21/19 2:04 UA Turbidity) AM) [facility] AND [id number] 08:04:00 Test Item Value Reference Range Interpretation Comments UA Spec Grav (test code = UA Spec 1.033 1 Grav) [facility] AND [id number] 08:04:00 Test Item Value Reference Range Interpretation Comments UA pH (test code = UA pH) 8.0 1 5.0-8.0 [facility] AND [id number] 08:04:00 Test Item Value Reference Range Interpretation Comments UA Protein (test code = UA Negative mg/dL Protein) [facility] AND [id number] 08:04:00 Test Item Value Reference Range Interpretation Comments UA Glucose (test code = UA Negative mg/dL Glucose) [facility] AND [id number] 08:04:00 Test Item Value Reference Range Interpretation Comments UA Ketones (test code = UA Ketones) 20 mg/dL [facility] AND [id number] 08:04:00 Test Item Value Reference Range Interpretation Comments UA Bili (test code = Negative *NA*(10/21/19 UA Bili) 2:04 AM) [facility] AND [id number] 08:04:00 Test Item Value Reference Range Interpretation Comments UA Blood (test code = Negative (10/21/19 2:04 UA Blood) AM) [facility] AND [id number] 08:04:00 Test Item Value Reference Range Interpretation Comments UA Nitrite (test code Negative (10/21/19 2:04 = UA Nitrite) AM) [facility] AND [id number] 08:04:00 Test Item Value Reference Range Interpretation Comments UA Leuk Est (test Negative (10/21/19 2:04 code = UA Leuk Est) AM) [facility] AND [id number] 08:04:00 Test Item Value Reference Range Interpretation Comments UA Sq Epi (test code = UA Sq Epi) Few /LPF [facility] [id number] 08:04:00 Test Item Value Reference Range Interpretation Comments UA WBC (test code = 4 See_Comment [Automa thelma message] The UA WBC) system which ge nerated this result transmit thelma reference range : <=5. The reference range was not used to interpr et this result as zana l/abnormal. [facility] [id number] 08:04:00 Test Item Value Reference Range Interpretation Comments UA RBC (test code = 1 See_Comment [Automa thelma message] The UA RBC) system which ge nerated this result transmit thelma reference range : <=2. The reference range was not used to interpr et this result as zana l/abnormal. [facility] [id number] 08:04:00 Test Item Value Reference Range Interpretation Comments UA Bacteria (test code = UA Occasional /HPF Bacteria) [facility] AND [id number] 08:04:00 Test Item Value Reference Range Interpretation Comments UA Hyal Cast (test 1 See_Comment [Automat ed message] The code = UA Hyal Cast) system which generated this result transmit thelma reference range : <=2. The reference range was not used to interpr et this result as zana l/abnormal. [facility] [id number] 08:04:00 Test Item Value Reference Range Interpretation Comments UA Color (test code = UA Color) YELLOW [facility] AND [id number] 08:04:00 Test Item Value Reference Range Interpretation Comments UA Urobilinogen (test code = UA <=1.0 mg/dL 0.1-1.0 Urobilinogen) [facility] AND [id number] 08:04:00 Test Item Value Reference Range Interpretation Comments UA Turbidity (test code = Clear (10/21/19 2:04 UA Turbidity) AM) [facility] AND [id number] 08:04:00 Test Item Value Reference Range Interpretation Comments UA Spec Grav (test code = UA Spec 1.033 1 Grav) [facility] AND [id number] 08:04:00 Test Item Value Reference Range Interpretation Comments UA pH (test code = UA pH) 8.0 1 5.0-8.0 [facility] AND [id number] 08:04:00 Test Item Value Reference Range Interpretation Comments UA Protein (test code = UA Negative mg/dL Protein) [facility] AND [id number] 08:04:00 Test Item Value Reference Range Interpretation Comments UA Glucose (test code = UA Negative mg/dL Glucose) [facility] AND [id number] 08:04:00 Test Item Value Reference Range Interpretation Comments UA Ketones (test code = UA Ketones) 20 mg/dL [facility] AND [id number] 08:04:00 Test Item Value Reference Range Interpretation Comments UA Bili (test code = Negative *NA*(10/21/19 UA Bili) 2:04 AM) [facility] AND [id number] 08:04:00 Test Item Value Reference Range Interpretation Comments UA Blood (test code = Negative (10/21/19 2:04 UA Blood) AM) [facility] AND [id number] 08:04:00 Test Item Value Reference Range Interpretation Comments UA Nitrite (test code Negative (10/21/19 2:04 = UA Nitrite) AM) [facility] AND [id number] 08:04:00 Test Item Value Reference Range Interpretation Comments UA Leuk Est (test Negative (10/21/19 2:04 code = UA Leuk Est) AM) [facility] AND [id number] 08:04:00 Test Item Value Reference Range Interpretation Comments UA Sq Epi (test code = UA Sq Epi) Few /LPF [facility] AND [id number] 08:04:00 Test Item Value Reference Range Interpretation Comments UA WBC (test code = 4 See_Comment [Automa thelma message] The UA WBC) system which ge nerated this result transmit thelma reference range : <=5. The reference range was not used to interpr et this result as zana l/abnormal. [facility] AND [id number] 08:04:00 Test Item Value Reference Range Interpretation Comments UA RBC (test code = 1 See_Comment [Automa thelma message] The UA RBC) system which ge nerated this result transmit thelma reference range : <=2. The reference range was not used to interpr et this result as zana l/abnormal. [facility]ann[facility] AND [id number] 08:04:00 Test Item Value Reference Range Interpretation Comments UA Bacteria (test code = UA Occasional /HPF Bacteria) [facility] [id number] 08:04:00 Test Item Value Reference Range Interpretation Comments UA Hyal Cast (test 1 See_Comment [Automat ed message] The code = UA Hyal Cast) system which generated this result transmit thelma reference range : <=2. The reference range was not used to interpr et this result as zana l/abnormal. [facility] [id number] 08:04:00 Test Item Value Reference Range Interpretation Comments UA Color (test code = UA Color) YELLOW [facility] [id number] 08:04:00 Test Item Value Reference Range Interpretation Comments UA Urobilinogen (test code = UA <=1.0 mg/dL 0.1-1.0 Urobilinogen) [facility] [employer] [id number] 18:55:00 Test Item Value Reference Range Interpretation Comments Albumin Lvl (test code = Albumin Lvl) 3.4 3.5-5.0 [facility] [employer] [id number] 18:55:00 Test Item Value Reference Range Interpretation Comments ALT (test code = ALT) 18 See_Comment [Auto mated message] The system which ge nerated this result transmit thelma reference range : <=65. The reference range was not used to interpr et this result as zana l/abnormal. [facility] Kenandy2020-02-06 18:55:00 Test Item Value Reference Range Interpretation Comments AST (test code = AST) 17 See_Comment [Auto mated message] The system which ge nerated this result transmit thelma reference range : <=37. The reference range was not used to interpr et this result as zana l/abnormal. [facility]2020-02-06 18:55:00 Test Item Value Reference Range Interpretation Comments Alk Phos (test code = Alk Phos) 66 39-136 [facility] [employer] [id number] 18:55:00 Test Item Value Reference Range Interpretation Comments Bili Total (test code = Bili Total) 0.4 0.2-1.3 [facility] Kenandy2020-02-06 18:55:00 Test Item Value Reference Range Interpretation Comments AGAP (test code = AGAP) 9.8 10.0-20.0 [place] [address]-02-06 18:55:00 Test Item Value Reference Range Interpretation Comments B/C Ratio (test code = B/C Ratio) 32 1 6-25 [place] [address]-02-06 18:55:00 Test Item Value Reference Range Interpretation Comments Globulin (test code = Globulin) 3.9 2.7-4.2 [place] [address]-02-06 18:55:00 Test Item Value Reference Range Interpretation Comments A/G Ratio (test code = A/G Ratio) 0.9 1 0.7-1.6 [place] [address]-02-06 18:55:00 Test Item Value Reference Range Interpretation Comments eGFR (test code = eGFR) 71 [place] [address]-02-06 18:55:00 Test Item Value Reference Range Interpretation Comments Lipase Lvl (test code = Lipase Lvl) 271 [address]93 [place] 536200-02-06 18:55:00 Test Item Value Reference Range Interpretation Comments Lactic Acid Lvl (test code = Lactic 1.1 0.5-2.2 Acid Lvl) [place] 834170-02-06 18:55:00 Test Item Value Reference Range Interpretation Comments WBC (test code = WBC) 14.3 3.7-10.4 [place] [address]-02-06 18:55:00 Test Item Value Reference Range Interpretation Comments RBC (test code = RBC) 4.34 4.20-5.40 [place] [address]-02-06 18:55:00 Test Item Value Reference Range Interpretation Comments Hgb (test code = Hgb) 11.4 12.0-16.0 [place] [address]-02-06 18:55:00 Test Item Value Reference Range Interpretation Comments Hct (test code = Hct) 35.6 36.0-48.0 [place] [address]-02-06 18:55:00 Test Item Value Reference Range Interpretation Comments MCV (test code = MCV) 82.1 80.0-98.0 [place] [address]-02-06 18:55:00 Test Item Value Reference Range Interpretation Comments MCH (test code = MCH) 26.4 pg 27.0-31.0 [place] 834170-02-06 18:55:00 Test Item Value Reference Range Interpretation Comments MCHC (test code = MCHC) 32.1 32.0-36.0 [facility] TempleMffmvuuEWKCGFGUSV0397-55-20 18:55:00 Test Item Value Reference Range Interpretation Comments RDW (test code = RDW) 15.2 11.5-14.5 [facility] [id number] 18:55:00 Test Item Value Reference Range Interpretation Comments Platelet (test code = Platelet) 349 133-450 [place] 834170-02-06 18:55:00 Test Item Value Reference Range Interpretation Comments MPV (test code = MPV) 8.1 7.4-10.4 [place] 834170-02-06 18:55:00 Test Item Value Reference Range Interpretation Comments PT (test code = PT) 14.0 s 12.0-14.7 [facility] TempleEdmwacaGSDGCSFUEU3752-04-72 18:55:00 Test Item Value Reference Range Interpretation Comments INR (test code = INR) 1.08 1 0.85-1.17 [place] 834170-02-06 18:55:00 Test Item Value Reference Range Interpretation Comments Segs (test code = Segs) 85.8 45.0-75.0 [facility] [id number] 18:55:00 Test Item Value Reference Range Interpretation Comments Lymphocytes (test code = Lymphocytes) 7.6 20.0-40.0 [place] 834170-02-06 18:55:00 Test Item Value Reference Range Interpretation Comments Monocytes (test code = Monocytes) 5.9 2.0-12.0 [place] [address]-02-06 18:55:00 Test Item Value Reference Range Interpretation Comments Eosinophils (test code = 0.4 See_Comment [A utomated message] The Eosinophils) system which ge nerated this result tra nsmitted reference range : <=4.0. The reference r eric was not used to int erpret this result as normal/abnormal . [place] 834170-02-06 18:55:00 Test Item Value Reference Range Interpretation Comments Basophils (test code = 0.3 See_Comment [Aut omated message] The Basophils) system which ge nerated this result tra nsmitted reference range : <=1.0. The reference r eric was not used to int erpret this result as normal/abnormal . [facility]ER1205[facility] 18:55:00 Test Item Value Reference Range Interpretation Comments Neutrophils # (test code = Neutrophils 12.3 1.5-8.1 #) [facility]ysdMZWQDZXUZU3662-44-06 18:55:00 Test Item Value Reference Range Interpretation Comments Lymphocytes # (test code = Lymphocytes 1.1 1.0-5.5 #) [facility]nMJJZCMWVXE5333-[facility] 18:55:00 Test Item Value Reference Range Interpretation Comments Monocytes # (test code 0.8 See_Comment [Aut omated message] The = Monocytes #) system which generated this result tra nsmitted reference range : <=0.8. The reference r eric was not used to int erpret this result as normal/abnormal . [facility] MichiganFfpsbznKUPLWBZQJW5950-17-96 18:55:00 Test Item Value Reference Range Interpretation Comments Eosinophils # (test code 0.1 See_Comment [A utomated message] The = Eosinophils #) system whic h generated this result tra nsmitted reference range : <=0.5. The reference r eric was not used to int erpret this result as normal/abnormal . [facility] HospitalCARD[facility] [id number] 18:55:00 Test Item Value Reference Range Interpretation Comments Troponin-I (test code no gt See_Comment [Auto mated message] The = Troponin-I) system which g enerated this result transmit thelma reference range : <=0.40. The reference r eric was not used to interpr et this result as zana l/abnormal. [facility] [employer] [id number] 18:55:00 Test Item Value Reference Range Interpretation Comments Glucose Lvl (test code = Glucose Lvl) 113 70-99 [facility] [id number] 18:55:00 Test Item Value Reference Range Interpretation Comments BUN (test code = BUN) 26 7-22 [facility] [id number] 18:55:00 Test Item Value Reference Range Interpretation Comments Creatinine Lvl (test code = Creatinine 0.82 0.50-1.40 Lvl) [facility] [id number] 18:55:00 Test Item Value Reference Range Interpretation Comments Sodium Lvl (test code = Sodium Lvl) 140 135-145 [facility] [id number] 18:55:00 Test Item Value Reference Range Interpretation Comments Potassium Lvl (test code = Potassium 3.8 3.5-5.1 Lvl) [facility] HospitalSw[facility] [id number] 18:55:00 Test Item Value Reference Range Interpretation Comments Chloride Lvl (test code = Chloride Lvl) 104 95-109 [facility] [id number] 18:55:00 Test Item Value Reference Range Interpretation Comments CO2 (test code = CO2) 30 24-32 [facility] [id number] 18:55:00 Test Item Value Reference Range Interpretation Comments Calcium Lvl (test code = Calcium Lvl) 9.7 8.5-10.5 [facility] [id number] 18:55:00 Test Item Value Reference Range Interpretation Comments Total Protein (test code = Total 7.3 6.4-8.4 Protein) [facility] [id number] 18:55:00 Test Item Value Reference Range Interpretation Comments Albumin Lvl (test code = Albumin Lvl) 3.4 3.5-5.0 [facility] [id number] 18:55:00 Test Item Value Reference Range Interpretation Comments ALT (test code = ALT) 18 See_Comment [Auto mated message] The system which ge nerated this result transmit thelma reference range : <=65. The reference range was not used to interpr et this result as zana l/abnormal. [facility] [id number] 18:55:00 Test Item Value Reference Range Interpretation Comments AST (test code = AST) 17 See_Comment [Auto mated message] The system which ge nerated this result transmit thelma reference range : <=37. The reference range was not used to interpr et this result as zana l/abnormal. [facility] [id number] 18:55:00 Test Item Value Reference Range Interpretation Comments Alk Phos (test code = Alk Phos) 66 39-136 [facility] [id number] 18:55:00 Test Item Value Reference Range Interpretation Comments Bili Total (test code = Bili Total) 0.4 0.2-1.3 [place] [address]-02-06 18:55:00 Test Item Value Reference Range Interpretation Comments AGAP (test code = AGAP) 9.8 10.0-20.0 [place] [address]-02-06 18:55:00 Test Item Value Reference Range Interpretation Comments B/C Ratio (test code = B/C Ratio) 32 1 6-25 [place] [address]-02-06 18:55:00 Test Item Value Reference Range Interpretation Comments Globulin (test code = Globulin) 3.9 2.7-4.2 [place] [address]-02-06 18:55:00 Test Item Value Reference Range Interpretation Comments A/G Ratio (test code = A/G Ratio) 0.9 1 0.7-1.6 [place] [address]-02-06 18:55:00 Test Item Value Reference Range Interpretation Comments eGFR (test code = eGFR) 71 [place] 536200-02-06 18:55:00 Test Item Value Reference Range Interpretation Comments Lipase Lvl (test code = Lipase Lvl) 271 73-393 [place] [address]-02-06 18:55:00 Test Item Value Reference Range Interpretation Comments Lactic Acid Lvl (test code = Lactic 1.1 0.5-2.2 Acid Lvl) [place] 834170-02-06 18:55:00 Test Item Value Reference Range Interpretation Comments WBC (test code = WBC) 14.3 3.7-10.4 [place] [address]-02-06 18:55:00 Test Item Value Reference Range Interpretation Comments RBC (test code = RBC) 4.34 4.20-5.40 [place] [address]-02-06 18:55:00 Test Item Value Reference Range Interpretation Comments Hgb (test code = Hgb) 11.4 12.0-16.0 [place] [address]-02-06 18:55:00 Test Item Value Reference Range Interpretation Comments Hct (test code = Hct) 35.6 36.0-48.0 [place] [address]-02-06 18:55:00 Test Item Value Reference Range Interpretation Comments MCV (test code = MCV) 82.1 80.0-98.0 [place] [address]-02-06 18:55:00 Test Item Value Reference Range Interpretation Comments MCH (test code = MCH) 26.4 pg 27.0-31.0 [place] 834170-02-06 18:55:00 Test Item Value Reference Range Interpretation Comments MCHC (test code = MCHC) 32.1 32.0-36.0 [facility] TempleYfonoahSQNSPIZYLF0427-56-78 18:55:00 Test Item Value Reference Range Interpretation Comments RDW (test code = RDW) 15.2 11.5-14.5 [place] [address]-02-06 18:55:00 Test Item Value Reference Range Interpretation Comments Platelet (test code = Platelet) 349 133-450 [facility] TempleAuclufuFZLUHQFLHE7664-76-80 18:55:00 Test Item Value Reference Range Interpretation Comments MPV (test code = MPV) 8.1 7.4-10.4 [place] 834170-02-06 18:55:00 Test Item Value Reference Range Interpretation Comments PT (test code = PT) 14.0 s 12.0-14.7 [facility] TempleMahhcxxAKIMTOWCRJ2943-71-39 18:55:00 Test Item Value Reference Range Interpretation Comments INR (test code = INR) 1.08 1 0.85-1.17 [place] 834170-02-06 18:55:00 Test Item Value Reference Range Interpretation Comments Segs (test code = Segs) 85.8 45.0-75.0 [facility] TempleMsabmrhOJQJHSWRYQ4848-20-22 18:55:00 Test Item Value Reference Range Interpretation Comments Lymphocytes (test code = Lymphocytes) 7.6 20.0-40.0 [place] 834170-02-06 18:55:00 Test Item Value Reference Range Interpretation Comments Monocytes (test code = Monocytes) 5.9 2.0-12.0 [place] [address]-02-06 18:55:00 Test Item Value Reference Range Interpretation Comments Eosinophils (test code = 0.4 See_Comment [A utomated message] The Eosinophils) system which ge nerated this result tra nsmitted reference range : <=4.0. The reference r eric was not used to int erpret this result as normal/abnormal . [facility] TempleQezqgcoGTZDVULOLH9290-20-25 18:55:00 Test Item Value Reference Range Interpretation Comments Basophils (test code = 0.3 See_Comment [Aut omated message] The Basophils) system which ge nerated this result tra nsmitted reference range : <=1.0. The reference r eric was not used to int erpret this result as normal/abnormal . [facility]GezdisyRSVADFOVYK7742-17-90 18:55:00 Test Item Value Reference Range Interpretation Comments Neutrophils # (test code = Neutrophils 12.3 1.5-8.1 #) [facility] 18:55:00 Test Item Value Reference Range Interpretation Comments Lymphocytes # (test code = Lymphocytes 1.1 1.0-5.5 #) [facility] MichiganCzyqqtcAOLTHHWWGE6465-91-46 18:55:00 Test Item Value Reference Range Interpretation Comments Monocytes # (test code 0.8 See_Comment [Aut omated message] The = Monocytes #) system which generated this result tra nsmitted reference range : <=0.8. The reference r eric was not used to int erpret this result as normal/abnormal . [facility] MichiganZkgrfvdGECEIBYCEA7355-30-38 18:55:00 Test Item Value Reference Range Interpretation Comments Eosinophils # (test code 0.1 See_Comment [A utomated message] The = Eosinophils #) system whic h generated this result tra nsmitted reference range : <=0.5. The reference r eric was not used to int erpret this result as normal/abnormal . [facility] [id number] 18:55:00 Test Item Value Reference Range Interpretation Comments Troponin-I (test code no gt See_Comment [Auto mated message] The = Troponin-I) system which g enerated this result transmit thelma reference range : <=0.40. The reference r eric was not used to interpr et this result as zana l/abnormal. [facility] [employer] [id number] 18:55:00 Test Item Value Reference Range Interpretation Comments Glucose Lvl (test code = Glucose Lvl) 113 70-99 [facility] [id number] 18:55:00 Test Item Value Reference Range Interpretation Comments BUN (test code = BUN) 26 7-22 [facility] [id number] 18:55:00 Test Item Value Reference Range Interpretation Comments Creatinine Lvl (test code = Creatinine 0.82 0.50-1.40 Lvl) [place] 536200-02-06 18:55:00 Test Item Value Reference Range Interpretation Comments Sodium Lvl (test code = Sodium Lvl) 140 135-145 [place] 536200-02-06 18:55:00 Test Item Value Reference Range Interpretation Comments Potassium Lvl (test code = Potassium 3.8 3.5-5.1 Lvl) [place] 536200-02-06 18:55:00 Test Item Value Reference Range Interpretation Comments Chloride Lvl (test code = Chloride Lvl) 104 95-109 [facility] CenterCirrus WorksTRAVIS VILLE [id number] 18:55:00 Test Item Value Reference Range Interpretation Comments CO2 (test code = CO2) 30 24-32 [place] 536200-02-06 18:55:00 Test Item Value Reference Range Interpretation Comments Calcium Lvl (test code = Calcium Lvl) 9.7 8.5-10.5 [facility] CenterCirrus WorksELIZABETH V[place] [id number] 18:55:00 Test Item Value Reference Range Interpretation Comments Total Protein (test code = Total 7.3 6.4-8.4 Protein) [place] 536200-02-06 18:55:00 Test Item Value Reference Range Interpretation Comments Albumin Lvl (test code = Albumin Lvl) 3.4 3.5-5.[address] [facility]Sw[facility] [id number] 18:55:00 Test Item Value Reference Range Interpretation Comments ALT (test code = ALT) 18 See_Comment [Auto mated message] The system which ge nerated this result transmit thelma reference range : <=65. The reference range was not used to interpr et this result as zana l/abnormal. [facility] Center[facility] [id number] 18:55:00 Test Item Value Reference Range Interpretation Comments AST (test code = AST) 17 See_Comment [Auto mated message] The system which ge nerated this result transmit thelma reference range : <=37. The reference range was not used to interpr et this result as zana l/abnormal. [facility] HospitalSw[facility] [id number] 18:55:00 Test Item Value Reference Range Interpretation Comments Alk Phos (test code = Alk Phos) 66 39-136 [facility] Center[facility] [id number] 18:55:00 Test Item Value Reference Range Interpretation Comments Bili Total (test code = Bili Total) 0.4 0.2-1.3 [place] 536200-02-06 18:55:00 Test Item Value Reference Range Interpretation Comments AGAP (test code = AGAP) 9.8 10.0-20.0 [place] [address]-02-06 18:55:00 Test Item Value Reference Range Interpretation Comments B/C Ratio (test code = B/C Ratio) 32 1 6-25 [place] [address]-02-06 18:55:00 Test Item Value Reference Range Interpretation Comments Globulin (test code = Globulin) 3.9 2.7-4.2 [place] [address]-02-06 18:55:00 Test Item Value Reference Range Interpretation Comments A/G Ratio (test code = A/G Ratio) 0.9 1 0.7-1.6 [place] [address]-02-06 18:55:00 Test Item Value Reference Range Interpretation Comments eGFR (test code = eGFR) 71 [place] 536200-02-06 18:55:00 Test Item Value Reference Range Interpretation Comments Lipase Lvl (test code = Lipase Lvl) 271 73-393 [place] 536200-02-06 18:55:00 Test Item Value Reference Range Interpretation Comments Lactic Acid Lvl (test code = Lactic 1.1 0.5-2.2 Acid Lvl) [place] [address]-02-06 18:55:00 Test Item Value Reference Range Interpretation Comments WBC (test code = WBC) 14.3 3.7-10.4 [place] [address]-02-06 18:55:00 Test Item Value Reference Range Interpretation Comments RBC (test code = RBC) 4.34 4.20-5.40 [place] [address]-02-06 18:55:00 Test Item Value Reference Range Interpretation Comments Hgb (test code = Hgb) 11.4 12.0-16.0 [place] [address]-02-06 18:55:00 Test Item Value Reference Range Interpretation Comments Hct (test code = Hct) 35.6 36.0-48.0 [place] [address]-02-06 18:55:00 Test Item Value Reference Range Interpretation Comments MCV (test code = MCV) 82.1 80.0-98.0 [facility] TempleKpvliddMHOTCRJGLN1542-41-21 18:55:00 Test Item Value Reference Range Interpretation Comments MCH (test code = MCH) 26.4 pg 27.0-31.0 [facility] TempleEbcpssoWJGJOJIFWQ0415-13-22 18:55:00 Test Item Value Reference Range Interpretation Comments MCHC (test code = MCHC) 32.1 32.0-36.0 [facility] TemplePgjsvyfKJMHEXMAKG5902-97-59 18:55:00 Test Item Value Reference Range Interpretation Comments RDW (test code = RDW) 15.2 11.5-14.5 [place] 834170-02-06 18:55:00 Test Item Value Reference Range Interpretation Comments Platelet (test code = Platelet) 349 133-450 [facility] TempleGpamrpyDVFBJQPETY6840-53-97 18:55:00 Test Item Value Reference Range Interpretation Comments MPV (test code = MPV) 8.1 7.4-10.4 [place] 834170-02-06 18:55:00 Test Item Value Reference Range Interpretation Comments PT (test code = PT) 14.0 s 12.0-14.7 [place] 834170-02-06 18:55:00 Test Item Value Reference Range Interpretation Comments INR (test code = INR) 1.08 1 0.85-1.17 [place] [address]-02-06 18:55:00 Test Item Value Reference Range Interpretation Comments Segs (test code = Segs) 85.8 45.0-75.0 [place] [address]-02-06 18:55:00 Test Item Value Reference Range Interpretation Comments Lymphocytes (test code = Lymphocytes) 7.6 20.0-40.0 [place] [address]-02-06 18:55:00 Test Item Value Reference Range Interpretation Comments Monocytes (test code = Monocytes) 5.9 2.0-12.0 [place] [address]-02-06 18:55:00 Test Item Value Reference Range Interpretation Comments Eosinophils (test code = 0.4 See_Comment [A utomated message] The Eosinophils) system which ge nerated this result tra nsmitted reference range : <=4.0. The reference r eric was not used to int erpret this result as normal/abnormal . [facility] HospitalSrtatcrAOVKOOWDJK9716-85-88 18:55:00 Test Item Value Reference Range Interpretation Comments Basophils (test code = 0.3 See_Comment [Aut omated message] The Basophils) system which ge nerated this result tra nsmitted reference range : <=1.0. The reference r eric was not used to int erpret this result as normal/abnormal . [facility] MichiganVcypjwyYOZLNETOQS3388-23-01 18:55:00 Test Item Value Reference Range Interpretation Comments Neutrophils # (test code = Neutrophils 12.3 1.5-8.1 #) [facility] HospitalLcfhvsdMWNXEJCYWV1737-84-16 18:55:00 Test Item Value Reference Range Interpretation Comments Lymphocytes # (test code = Lymphocytes 1.1 1.0-5.5 #) [facility] MichiganSfniyjmYJLHKVJBER0666-91-92 18:55:00 Test Item Value Reference Range Interpretation Comments Monocytes # (test code 0.8 See_Comment [Aut omated message] The = Monocytes #) system which generated this result tra nsmitted reference range : <=0.8. The reference r eric was not used to int erpret this result as normal/abnormal . [facility] MichiganKepkekmLJGNOMLXOU1365-84-44 18:55:00 Test Item Value Reference Range Interpretation Comments Eosinophils # (test code 0.1 See_Comment [A utomated message] The = Eosinophils #) system whic h generated this result tra nsmitted reference range : <=0.5. The reference r eric was not used to int erpret this result as normal/abnormal . [facility] HospitalC[facility] [id number] 18:55:00 Test Item Value Reference Range Interpretation Comments Troponin-I (test code no gt See_Comment [Auto mated message] The = Troponin-I) system which g enerated this result transmit thelma reference range : <=0.40. The reference r eric was not used to interpr et this result as zana l/abnormal. [facility] [employer] [id number] 18:55:00 Test Item Value Reference Range Interpretation Comments Glucose Lvl (test code = Glucose Lvl) 113 70-99 [facility] Center[facility] [id number] 18:55:00 Test Item Value Reference Range Interpretation Comments BUN (test code = BUN) 26 7-22 [facility] [employer] [id number] 18:55:00 Test Item Value Reference Range Interpretation Comments Creatinine Lvl (test code = Creatinine 0.82 0.50-1.40 Lvl) [place] 536200-02-06 18:55:00 Test Item Value Reference Range Interpretation Comments Sodium Lvl (test code = Sodium Lvl) 140 135-145 [place] 536200-02-06 18:55:00 Test Item Value Reference Range Interpretation Comments Potassium Lvl (test code = Potassium 3.8 3.5-5.1 Lvl) [place] 536200-02-06 18:55:00 Test Item Value Reference Range Interpretation Comments Chloride Lvl (test code = Chloride Lvl) 104 95-109 [place] 536200-02-06 18:55:00 Test Item Value Reference Range Interpretation Comments CO2 (test code = CO2) 30 24-32 [place] [address]-02-06 18:55:00 Test Item Value Reference Range Interpretation Comments Calcium Lvl (test code = Calcium Lvl) 9.7 8.5-10.5 [place] 536200-02-06 18:55:00 Test Item Value Reference Range Interpretation Comments Total Protein (test code = Total 7.3 6.4-8.4 Protein) [facility]2020-01-22 11:45:00 Test Item Value Reference Range Interpretation Comments Glucose Lvl (test code = Glucose Lvl) 111 70-99 [place] 536200-01-22 11:45:00 Test Item Value Reference Range Interpretation Comments BUN (test code = BUN) 15 7-22 [place] 536200-01-22 11:45:00 Test Item Value Reference Range Interpretation Comments Creatinine Lvl (test code = Creatinine 0.72 0.50-1.40 Lvl) [place] 536200-01-22 11:45:00 Test Item Value Reference Range Interpretation Comments Sodium Lvl (test code = Sodium Lvl) 141 135-145 [place] 536200-01-22 11:45:00 Test Item Value Reference Range Interpretation Comments Potassium Lvl (test code = Potassium 3.4 3.5-5.1 Lvl) [place] 536200-01-22 11:45:00 Test Item Value Reference Range Interpretation Comments Chloride Lvl (test code = Chloride Lvl) 109 95-109 [facility]2020-01-22 11:45:00 Test Item Value Reference Range Interpretation Comments CO2 (test code = CO2) 26 24-32 [facility]2020-01-22 11:45:00 Test Item Value Reference Range Interpretation Comments AGAP (test code = AGAP) 9.4 10.0-20.0 [facility]2020-01-22 11:45:00 Test Item Value Reference Range Interpretation Comments Calcium Lvl (test code = Calcium Lvl) 8.4 8.5-10.5 [facility]2020-01-22 11:45:00 Test Item Value Reference Range Interpretation Comments eGFR (test code = eGFR) 84 [facility] TempleBvnkxalNMPXSARKRF7251-05-11 11:45:00 Test Item Value Reference Range Interpretation Comments WBC (test code = WBC) 8.8 3.7-10.4 [place] 834170-01-22 11:45:00 Test Item Value Reference Range Interpretation Comments RBC (test code = RBC) 3.92 4.20-5.40 [facility] TempleCbxmrnwNTQBCJZOQW1478-47-21 11:45:00 Test Item Value Reference Range Interpretation Comments Hgb (test code = Hgb) 10.3 12.0-16.0 [facility] TempleFgmzshxUFXMRLCIJG4787-96-06 11:45:00 Test Item Value Reference Range Interpretation Comments Hct (test code = Hct) 31.8 36.0-48.0 [place] 834170-01-22 11:45:00 Test Item Value Reference Range Interpretation Comments MCV (test code = MCV) 81.3 80.0-98.0 [place] 834170-01-22 11:45:00 Test Item Value Reference Range Interpretation Comments MCH (test code = MCH) 26.3 pg 27.0-31.0 [place] 834170-01-22 11:45:00 Test Item Value Reference Range Interpretation Comments MCHC (test code = MCHC) 32.3 32.0-36.0 [place] 834170-01-22 11:45:00 Test Item Value Reference Range Interpretation Comments RDW (test code = RDW) 14.2 11.5-14.5 [place] 834170-01-22 11:45:00 Test Item Value Reference Range Interpretation Comments Platelet (test code = Platelet) 272 133-450 [facility] TempleZewrnhoQCYJNLJBCA6006-68-63 11:45:00 Test Item Value Reference Range Interpretation Comments MPV (test code = MPV) 8.1 7.4-10.4 [place] 834170-01-22 11:45:00 Test Item Value Reference Range Interpretation Comments Segs (test code = Segs) 67.0 45.0-75.0 [place] 834170-01-22 11:45:00 Test Item Value Reference Range Interpretation Comments Lymphocytes (test code = Lymphocytes) 21.6 20.0-40.0 [place] 834170-01-22 11:45:00 Test Item Value Reference Range Interpretation Comments Monocytes (test code = Monocytes) 8.2 2.0-12.0 [place] 834170-01-22 11:45:00 Test Item Value Reference Range Interpretation Comments Eosinophils (test code = 2.5 See_Comment [A utomated message] The Eosinophils) system which ge nerated this result tra nsmitted reference range : <=4.0. The reference r eric was not used to int erpret this result as normal/abnormal . [facility] TempleEuwyfglLTGWIXPWNA5409-89-07 11:45:00 Test Item Value Reference Range Interpretation Comments Basophils (test code = 0.7 See_Comment [Aut omated message] The Basophils) system which ge nerated this result tra nsmitted reference range : <=1.0. The reference r eric was not used to int erpret this result as normal/abnormal . [facility] TempleEyihmfdXTKLLWIGOW8917-42-18 11:45:00 Test Item Value Reference Range Interpretation Comments Neutrophils # (test code = Neutrophils 5.9 1.5-8.1 #) [place] 834170-01-22 11:45:00 Test Item Value Reference Range Interpretation Comments Lymphocytes # (test code = Lymphocytes 1.9 1.0-5.5 #) [place] 834170-01-22 11:45:00 Test Item Value Reference Range Interpretation Comments Monocytes # (test code 0.7 See_Comment [Aut omated message] The = Monocytes #) system which generated this result tra nsmitted reference range : <=0.8. The reference r eric was not used to int erpret this result as normal/abnormal . [facility] TempleAxyxbzsUEHBDQBFNC0914-80-08 11:45:00 Test Item Value Reference Range Interpretation Comments Eosinophils # (test code 0.2 See_Comment [A utomated message] The = Eosinophils #) system whic h generated this result tra nsmitted reference range : <=0.5. The reference r eric was not used to int erpret this result as normal/abnormal . [facility] TempleCjyukqlXBJHOPZSFD5958-57-75 11:45:00 Test Item Value Reference Range Interpretation Comments Basophils # (test code 0.1 See_Comment [Aut omated message] The = Basophils #) system which generated this result tra nsmitted reference range : <=0.2. The reference r eric was not used to int erpret this result as normal/abnormal . [facility]2020-01-22 11:45:00 Test Item Value Reference Range Interpretation Comments Glucose Lvl (test code = Glucose Lvl) 111 70-99 [facility]2020-01-22 11:45:00 Test Item Value Reference Range Interpretation Comments BUN (test code = BUN) 15 -22 [place] 536200-01-22 11:45:00 Test Item Value Reference Range Interpretation Comments Creatinine Lvl (test code = Creatinine 0.72 0.50-1.40 Lvl) [facility]2020-01-22 11:45:00 Test Item Value Reference Range Interpretation Comments Sodium Lvl (test code = Sodium Lvl) 141 135-145 [place] 536200-01-22 11:45:00 Test Item Value Reference Range Interpretation Comments Potassium Lvl (test code = Potassium 3.4 3.5-5.1 Lvl) [place] 536200-01-22 11:45:00 Test Item Value Reference Range Interpretation Comments Chloride Lvl (test code = Chloride Lvl) 109 95-109 [place] 536200-01-22 11:45:00 Test Item Value Reference Range Interpretation Comments CO2 (test code = CO2) 26 24-32 [place] 536200-01-22 11:45:00 Test Item Value Reference Range Interpretation Comments AGAP (test code = AGAP) 9.4 10.0-20.0 [place] 536200-01-22 11:45:00 Test Item Value Reference Range Interpretation Comments Calcium Lvl (test code = Calcium Lvl) 8.4 8.5-10.[address] [facility] IORXO3088-39-02 11:45:00 Test Item Value Reference Range Interpretation Comments eGFR (test code = eGFR) 84 [facility] TempleIqoupgjUDIEPBJZHC3827-47-95 11:45:00 Test Item Value Reference Range Interpretation Comments WBC (test code = WBC) 8.8 3.7-10.4 [place] 834170-01-22 11:45:00 Test Item Value Reference Range Interpretation Comments RBC (test code = RBC) 3.92 4.20-5.40 [place] 834170-01-22 11:45:00 Test Item Value Reference Range Interpretation Comments Hgb (test code = Hgb) 10.3 12.0-16.0 [place] 834170-01-22 11:45:00 Test Item Value Reference Range Interpretation Comments Hct (test code = Hct) 31.8 36.0-48.0 [place] 834170-01-22 11:45:00 Test Item Value Reference Range Interpretation Comments MCV (test code = MCV) 81.3 80.0-98.0 [facility] TempleIlfspmqPMKUNRJDOU8352-69-91 11:45:00 Test Item Value Reference Range Interpretation Comments MCH (test code = MCH) 26.3 pg 27.0-31.0 [facility] TempleBlczphfNCNAPXMQHW2745-16-49 11:45:00 Test Item Value Reference Range Interpretation Comments MCHC (test code = MCHC) 32.3 32.0-36.0 [facility] TempleZbaueelMJOZGQIJOU8210-60-78 11:45:00 Test Item Value Reference Range Interpretation Comments RDW (test code = RDW) 14.2 11.5-14.5 [place] 834170-01-22 11:45:00 Test Item Value Reference Range Interpretation Comments Platelet (test code = Platelet) 272 133-450 [facility] TempleZguqqcyDCRLOTFRUT9437-86-32 11:45:00 Test Item Value Reference Range Interpretation Comments MPV (test code = MPV) 8.1 7.4-10.4 [place] 834170-01-22 11:45:00 Test Item Value Reference Range Interpretation Comments Segs (test code = Segs) 67.0 45.0-75.0 [facility] TempleJpetgrbZKZPWUZAHQ4314-71-13 11:45:00 Test Item Value Reference Range Interpretation Comments Lymphocytes (test code = Lymphocytes) 21.6 20.0-40.0 [facility] TempleWjikihfFKYWHZHFYF5088-19-21 11:45:00 Test Item Value Reference Range Interpretation Comments Monocytes (test code = Monocytes) 8.2 2.0-12.0 [place] 834170-01-22 11:45:00 Test Item Value Reference Range Interpretation Comments Eosinophils (test code = 2.5 See_Comment [A utomated message] The Eosinophils) system which ge nerated this result tra nsmitted reference range : <=4.0. The reference r eric was not used to int erpret this result as normal/abnormal . [facility] TempleBokwzzxDZWMEVVFEN3713-98-71 11:45:00 Test Item Value Reference Range Interpretation Comments Basophils (test code = 0.7 See_Comment [Aut omated message] The Basophils) system which ge nerated this result tra nsmitted reference range : <=1.0. The reference r eric was not used to int erpret this result as normal/abnormal . [facility] TempleRcfdhxqEJVKQVDGRU8418-86-16 11:45:00 Test Item Value Reference Range Interpretation Comments Neutrophils # (test code = Neutrophils 5.9 1.5-8.1 #) [facility] TempleBdbkuolZAQSBMCMVE8492-35-22 11:45:00 Test Item Value Reference Range Interpretation Comments Lymphocytes # (test code = Lymphocytes 1.9 1.0-5.5 #) [place] 834170-01-22 11:45:00 Test Item Value Reference Range Interpretation Comments Monocytes # (test code 0.7 See_Comment [Aut omated message] The = Monocytes #) system which generated this result tra nsmitted reference range : <=0.8. The reference r eric was not used to int erpret this result as normal/abnormal . [facility] TempleSjzhsuhDOFCUBLWKF0174-99-56 11:45:00 Test Item Value Reference Range Interpretation Comments Eosinophils # (test code 0.2 See_Comment [A utomated message] The = Eosinophils #) system ic h generated this result tra nsmitted reference range : <=0.5. The reference r eric was not used to int erpret this result as normal/abnormal . [place] 834170-01-22 11:45:00 Test Item Value Reference Range Interpretation Comments Basophils # (test code 0.1 See_Comment [Aut omated message] The = Basophils #) system which generated this result tra nsmitted reference range : <=0.2. The reference r eric was not used to int erpret this result as normal/abnormal . [place] 536200-01-22 11:45:00 Test Item Value Reference Range Interpretation Comments Glucose Lvl (test code = Glucose Lvl) 111 70-99 [place] 536200-01-22 11:45:00 Test Item Value Reference Range Interpretation Comments BUN (test code = BUN) 15 7-22 [place] 536200-01-22 11:45:00 Test Item Value Reference Range Interpretation Comments Creatinine Lvl (test code = Creatinine 0.72 0.50-1.40 Lvl) [place] 536200-01-22 11:45:00 Test Item Value Reference Range Interpretation Comments Sodium Lvl (test code = Sodium Lvl) 141 135-145 [place] 536200-01-22 11:45:00 Test Item Value Reference Range Interpretation Comments Potassium Lvl (test code = Potassium 3.4 3.5-5.1 Lvl) [place] 536200-01-22 11:45:00 Test Item Value Reference Range Interpretation Comments Chloride Lvl (test code = Chloride Lvl) 109 95-109 [place] 536200-01-22 11:45:00 Test Item Value Reference Range Interpretation Comments CO2 (test code = CO2) 26 24-32 [place] 536200-01-22 11:45:00 Test Item Value Reference Range Interpretation Comments AGAP (test code = AGAP) 9.4 10.0-20.0 [place] 536200-01-22 11:45:00 Test Item Value Reference Range Interpretation Comments Calcium Lvl (test code = Calcium Lvl) 8.4 8.5-10.5 [place] 536200-01-22 11:45:00 Test Item Value Reference Range Interpretation Comments eGFR (test code = eGFR) 84 [place] 834170-01-22 11:45:00 Test Item Value Reference Range Interpretation Comments WBC (test code = WBC) 8.8 3.7-10.4 [facility] TempleQlwzjetYLDKPJOQLB2672-98-99 11:45:00 Test Item Value Reference Range Interpretation Comments RBC (test code = RBC) 3.92 4.20-5.40 [facility] TempleJhyfhtxOHWGKXZWMF2086-77-07 11:45:00 Test Item Value Reference Range Interpretation Comments Hgb (test code = Hgb) 10.3 12.0-16.0 [facility] TempleUzpuoemGYQVHLYWPD2123-57-68 11:45:00 Test Item Value Reference Range Interpretation Comments Hct (test code = Hct) 31.8 36.0-48.0 [facility] TempleIylacafNXQWQPBBGK3431-28-42 11:45:00 Test Item Value Reference Range Interpretation Comments MCV (test code = MCV) 81.3 80.0-98.0 [facility] TempleNxbcizwEAFMDDDNLW0890-06-88 11:45:00 Test Item Value Reference Range Interpretation Comments MCH (test code = MCH) 26.3 pg 27.0-31.0 [facility] TempleUpyfibuGGDIKTZWRQ8306-03-36 11:45:00 Test Item Value Reference Range Interpretation Comments MCHC (test code = MCHC) 32.3 32.0-36.0 [facility] TempleBvgytjnSTZEFIOVLD6078-79-85 11:45:00 Test Item Value Reference Range Interpretation Comments RDW (test code = RDW) 14.2 11.5-14.5 [facility] TempleUojwonuGGXVILQNQN2881-38-00 11:45:00 Test Item Value Reference Range Interpretation Comments Platelet (test code = Platelet) 272 133-450 [facility] TempleXufxxvfJYXFMXAQVC1529-78-89 11:45:00 Test Item Value Reference Range Interpretation Comments MPV (test code = MPV) 8.1 7.4-10.4 [facility] TempleAxyzoudDKZGZABWLB0611-50-00 11:45:00 Test Item Value Reference Range Interpretation Comments Segs (test code = Segs) 67.0 45.0-75.0 [facility] TempleKepkbszZLRSHIENGP5050-81-42 11:45:00 Test Item Value Reference Range Interpretation Comments Lymphocytes (test code = Lymphocytes) 21.6 20.0-40.0 [facility] TempleHbgektpVLYFGEHEAF4000-13-07 11:45:00 Test Item Value Reference Range Interpretation Comments Monocytes (test code = Monocytes) 8.2 2.0-12.0 [place] [address]-01-22 11:45:00 Test Item Value Reference Range Interpretation Comments Eosinophils (test code = 2.5 See_Comment [A utomated message] The Eosinophils) system which ge nerated this result tra nsmitted reference range : <=4.0. The reference r eric was not used to int erpret this result as normal/abnormal . [facility] TempleKpxxgegGPUGVBWVXM4717-84-85 11:45:00 Test Item Value Reference Range Interpretation Comments Basophils (test code = 0.7 See_Comment [Aut omated message] The Basophils) system which ge nerated this result tra nsmitted reference range : <=1.0. The reference r eric was not used to int erpret this result as normal/abnormal . [place] 834170-01-22 11:45:00 Test Item Value Reference Range Interpretation Comments Neutrophils # (test code = Neutrophils 5.9 1.5-8.1 #) [facility] TempleSgcahcgEBFRPASJKC2034-76-54 11:45:00 Test Item Value Reference Range Interpretation Comments Lymphocytes # (test code = Lymphocytes 1.9 1.0-5.5 #) [place] 834170-01-22 11:45:00 Test Item Value Reference Range Interpretation Comments Monocytes # (test code 0.7 See_Comment [Aut omated message] The = Monocytes #) system which generated this result tra nsmitted reference range : <=0.8. The reference r eric was not used to int erpret this result as normal/abnormal . [facility] TempleGisqutgAZEMCLYSSP7287-20-63 11:45:00 Test Item Value Reference Range Interpretation Comments Eosinophils # (test code 0.2 See_Comment [A utomated message] The = Eosinophils #) system whic h generated this result tra nsmitted reference range : <=0.5. The reference r eric was not used to int erpret this result as normal/abnormal . [place] 834170-01-22 11:45:00 Test Item Value Reference Range Interpretation Comments Basophils # (test code 0.1 See_Comment [Aut omated message] The = Basophils #) system which generated this result tra nsmitted reference range : <=0.2. The reference r eric was not used to int erpret this result as normal/abnormal . [facility]2020-01-21 11:50:00 Test Item Value Reference Range Interpretation Comments Glucose Lvl (test code = Glucose Lvl) 62 70-99 [facility]2020-01-21 11:50:00 Test Item Value Reference Range Interpretation Comments BUN (test code = BUN) 31 7-22 [facility]2020-01-21 11:50:00 Test Item Value Reference Range Interpretation Comments Creatinine Lvl (test code = Creatinine 0.80 0.50-1.40 Lvl) [facility]2020-01-21 11:50:00 Test Item Value Reference Range Interpretation Comments Sodium Lvl (test code = Sodium Lvl) 140 135-145 [facility]2020-01-21 11:50:00 Test Item Value Reference Range Interpretation Comments Potassium Lvl (test code = Potassium 3.8 3.5-5.1 Lvl) [facility]2020-01-21 11:50:00 Test Item Value Reference Range Interpretation Comments Chloride Lvl (test code = Chloride Lvl) 108 95-109 [facility]2020-01-21 11:50:00 Test Item Value Reference Range Interpretation Comments CO2 (test code = CO2) 27 24-32 [facility]2020-01-21 11:50:00 Test Item Value Reference Range Interpretation Comments Calcium Lvl (test code = Calcium Lvl) 8.7 8.5-10.5 [facility]2020-01-21 11:50:00 Test Item Value Reference Range Interpretation Comments AGAP (test code = AGAP) 8.8 10.0-20.0 [facility]2020-01-21 11:50:00 Test Item Value Reference Range Interpretation Comments eGFR (test code = eGFR) 73 [facility] TempleYsjtbqaVEEJZTOURU2340-30-50 11:50:00 Test Item Value Reference Range Interpretation Comments Segs (test code = Segs) 81.6 45.0-75.0 [facility] TempleRtqwqzxLDZKAVNFJW0384-39-10 11:50:00 Test Item Value Reference Range Interpretation Comments Lymphocytes (test code = Lymphocytes) 11.9 20.0-40.0 [facility] TempleKvzmeoqMUQEMUHNSN9690-38-59 11:50:00 Test Item Value Reference Range Interpretation Comments Monocytes (test code = Monocytes) 5.5 2.0-12.0 [place] 834170-01-21 11:50:00 Test Item Value Reference Range Interpretation Comments Eosinophils (test code = 0.5 See_Comment [A utomated message] The Eosinophils) system which ge nerated this result tra nsmitted reference range : <=4.0. The reference r eric was not used to int erpret this result as normal/abnormal . [facility] TempleIuhgjitLGNLEEOGRY4493-42-15 11:50:00 Test Item Value Reference Range Interpretation Comments Basophils (test code = 0.5 See_Comment [Aut omated message] The Basophils) system which ge nerated this result tra nsmitted reference range : <=1.0. The reference r eric was not used to int erpret this result as normal/abnormal . [facility] TempleRoubgqnLNFIATPQAK0679-53-09 11:50:00 Test Item Value Reference Range Interpretation Comments Neutrophils # (test code = Neutrophils 12.8 1.5-8.1 #) [facility] TempleSvycnzgGITEDCAHHC3238-94-80 11:50:00 Test Item Value Reference Range Interpretation Comments Lymphocytes # (test code = Lymphocytes 1.9 1.0-5.5 #) [facility] TempleUptkrisTMXUHLEHXD6108-26-31 11:50:00 Test Item Value Reference Range Interpretation Comments Monocytes # (test code 0.9 See_Comment [Aut omated message] The = Monocytes #) system which generated this result tra nsmitted reference range : <=0.8. The reference r eric was not used to int erpret this result as normal/abnormal . [facility] TempleZxjbylmGCGUOXIZQM5049-20-65 11:50:00 Test Item Value Reference Range Interpretation Comments Eosinophils # (test code 0.1 See_Comment [A utomated message] The = Eosinophils #) system whic h generated this result tra nsmitted reference range : <=0.5. The reference r eric was not used to int erpret this result as normal/abnormal . [facility] TempleDzaldgjCRGRXZQJSC4985-45-52 11:50:00 Test Item Value Reference Range Interpretation Comments Basophils # (test code 0.1 See_Comment [Aut omated message] The = Basophils #) system which generated this result tra nsmitted reference range : <=0.2. The reference r eric was not used to int erpret this result as normal/abnormal . [facility] TempleSqoqariSBYNKSIWJC7482-52-61 11:50:00 Test Item Value Reference Range Interpretation Comments WBC (test code = WBC) 15.7 3.7-10.4 [facility] TempleDrqynsvHCOVZZUZZJ4851-44-93 11:50:00 Test Item Value Reference Range Interpretation Comments RBC (test code = RBC) 3.95 4.20-5.40 [facility] TempleNafryikZFTOTSNINL0932-73-30 11:50:00 Test Item Value Reference Range Interpretation Comments Hgb (test code = Hgb) 10.2 12.0-16.0 [place] 834170-01-21 11:50:00 Test Item Value Reference Range Interpretation Comments Hct (test code = Hct) 32.3 36.0-48.0 [place] 834170-01-21 11:50:00 Test Item Value Reference Range Interpretation Comments MCV (test code = MCV) 81.9 80.0-98.0 [place] 834170-01-21 11:50:00 Test Item Value Reference Range Interpretation Comments MCH (test code = MCH) 25.9 pg 27.0-31.0 [place] 834170-01-21 11:50:00 Test Item Value Reference Range Interpretation Comments MCHC (test code = MCHC) 31.6 32.0-36.0 [facility] TempleLfpoxawITBCYSWBHE1295-16-42 11:50:00 Test Item Value Reference Range Interpretation Comments RDW (test code = RDW) 14.9 11.5-14.5 [facility] TempleZmckmsrIZUBINYKPB8358-57-64 11:50:00 Test Item Value Reference Range Interpretation Comments Platelet (test code = Platelet) 339 133-450 [facility] TemplePmsfjkaILFWXQCUGR5745-31-12 11:50:00 Test Item Value Reference Range Interpretation Comments MPV (test code = MPV) 8.3 7.4-10.4 [facility]2020-01-21 11:50:00 Test Item Value Reference Range Interpretation Comments Glucose Lvl (test code = Glucose Lvl) 62 70-99 [facility]2020-01-21 11:50:00 Test Item Value Reference Range Interpretation Comments BUN (test code = BUN) 31 7-22 [facility]2020-01-21 11:50:00 Test Item Value Reference Range Interpretation Comments Creatinine Lvl (test code = Creatinine 0.80 0.50-1.40 Lvl) [facility]2020-01-21 11:50:00 Test Item Value Reference Range Interpretation Comments Sodium Lvl (test code = Sodium Lvl) 140 135-145 [place] 536200-01-21 11:50:00 Test Item Value Reference Range Interpretation Comments Potassium Lvl (test code = Potassium 3.8 3.5-5.1 Lvl) [place] 536200-01-21 11:50:00 Test Item Value Reference Range Interpretation Comments Chloride Lvl (test code = Chloride Lvl) 108 95-109 [place] 536200-01-21 11:50:00 Test Item Value Reference Range Interpretation Comments CO2 (test code = CO2) 27 24-32 [place] 536200-01-21 11:50:00 Test Item Value Reference Range Interpretation Comments Calcium Lvl (test code = Calcium Lvl) 8.7 8.5-10.5 [place] 536200-01-21 11:50:00 Test Item Value Reference Range Interpretation Comments AGAP (test code = AGAP) 8.8 10.0-20.0 [place] 536200-01-21 11:50:00 Test Item Value Reference Range Interpretation Comments eGFR (test code = eGFR) 73 [place] 834170-01-21 11:50:00 Test Item Value Reference Range Interpretation Comments Segs (test code = Segs) 81.6 45.0-75.0 [place] 834170-01-21 11:50:00 Test Item Value Reference Range Interpretation Comments Lymphocytes (test code = Lymphocytes) 11.9 20.0-40.0 [place] 834170-01-21 11:50:00 Test Item Value Reference Range Interpretation Comments Monocytes (test code = Monocytes) 5.5 2.0-12.0 [place] 834170-01-21 11:50:00 Test Item Value Reference Range Interpretation Comments Eosinophils (test code = 0.5 See_Comment [A utomated message] The Eosinophils) system which ge nerated this result tra nsmitted reference range : <=4.0. The reference r eric was not used to int erpret this result as normal/abnormal . [place] 834170-01-21 11:50:00 Test Item Value Reference Range Interpretation Comments Basophils (test code = 0.5 See_Comment [Aut omated message] The Basophils) system which ge nerated this result tra nsmitted reference range : <=1.0. The reference r eric was not used to int erpret this result as normal/abnormal . [place] 834170-01-21 11:50:00 Test Item Value Reference Range Interpretation Comments Neutrophils # (test code = Neutrophils 12.8 1.5-8.1 #) [facility] TempleUmkutbvAMJXOCDEAC5576-14-18 11:50:00 Test Item Value Reference Range Interpretation Comments Lymphocytes # (test code = Lymphocytes 1.9 1.0-5.5 #) [facility] TempleIrftopjELOGLAZXNY4634-02-98 11:50:00 Test Item Value Reference Range Interpretation Comments Monocytes # (test code 0.9 See_Comment [Aut omated message] The = Monocytes #) system which generated this result tra nsmitted reference range : <=0.8. The reference r eric was not used to int erpret this result as normal/abnormal . [facility] TempleGskcprnBLVNFSGPZH5585-60-71 11:50:00 Test Item Value Reference Range Interpretation Comments Eosinophils # (test code 0.1 See_Comment [A utomated message] The = Eosinophils #) system whic h generated this result tra nsmitted reference range : <=0.5. The reference r eric was not used to int erpret this result as normal/abnormal . [facility] TempleCejhhxaOPDKMLUWKJ0298-14-70 11:50:00 Test Item Value Reference Range Interpretation Comments Basophils # (test code 0.1 See_Comment [Aut omated message] The = Basophils #) system which generated this result tra nsmitted reference range : <=0.2. The reference r eric was not used to int erpret this result as normal/abnormal . [facility] TempleYujrcozJARJYPOGVW7333-25-47 11:50:00 Test Item Value Reference Range Interpretation Comments WBC (test code = WBC) 15.7 3.7-10.4 [facility] TempleUviowauMLLERQITZO6629-47-29 11:50:00 Test Item Value Reference Range Interpretation Comments RBC (test code = RBC) 3.95 4.20-5.40 [place] 834170-01-21 11:50:00 Test Item Value Reference Range Interpretation Comments Hgb (test code = Hgb) 10.2 12.0-16.0 [place] 834170-01-21 11:50:00 Test Item Value Reference Range Interpretation Comments Hct (test code = Hct) 32.3 36.0-48.0 [place] 834170-01-21 11:50:00 Test Item Value Reference Range Interpretation Comments MCV (test code = MCV) 81.9 80.0-98.0 [place] 834170-01-21 11:50:00 Test Item Value Reference Range Interpretation Comments MCH (test code = MCH) 25.9 pg 27.0-31.0 [place] 834170-01-21 11:50:00 Test Item Value Reference Range Interpretation Comments MCHC (test code = MCHC) 31.6 32.0-36.0 [place] 834170-01-21 11:50:00 Test Item Value Reference Range Interpretation Comments RDW (test code = RDW) 14.9 11.5-14.5 [place] 834170-01-21 11:50:00 Test Item Value Reference Range Interpretation Comments Platelet (test code = Platelet) 339 133-450 [facility] TempleMajdcslOMSNUHPPQU3365-58-49 11:50:00 Test Item Value Reference Range Interpretation Comments MPV (test code = MPV) 8.3 7.4-10.4 [facility]2020-01-21 11:50:00 Test Item Value Reference Range Interpretation Comments Glucose Lvl (test code = Glucose Lvl) 62 70-99 [facility]2020-01-21 11:50:00 Test Item Value Reference Range Interpretation Comments BUN (test code = BUN) 31 7-22 [place] 536200-01-21 11:50:00 Test Item Value Reference Range Interpretation Comments Creatinine Lvl (test code = Creatinine 0.80 0.50-1.40 Lvl) [facility]2020-01-21 11:50:00 Test Item Value Reference Range Interpretation Comments Sodium Lvl (test code = Sodium Lvl) 140 135-145 [place] 536200-01-21 11:50:00 Test Item Value Reference Range Interpretation Comments Potassium Lvl (test code = Potassium 3.8 3.5-5.1 Lvl) [place] 536200-01-21 11:50:00 Test Item Value Reference Range Interpretation Comments Chloride Lvl (test code = Chloride Lvl) 108 95-109 [place] 536200-01-21 11:50:00 Test Item Value Reference Range Interpretation Comments CO2 (test code = CO2) 27 24-32 [place] 536200-01-21 11:50:00 Test Item Value Reference Range Interpretation Comments Calcium Lvl (test code = Calcium Lvl) 8.7 8.5-10.5 [place] 536200-01-21 11:50:00 Test Item Value Reference Range Interpretation Comments AGAP (test code = AGAP) 8.8 10.0-20.0 [place] 536200-01-21 11:50:00 Test Item Value Reference Range Interpretation Comments eGFR (test code = eGFR) 73 [place] 834170-01-21 11:50:00 Test Item Value Reference Range Interpretation Comments Segs (test code = Segs) 81.6 45.0-75.0 [place] 834170-01-21 11:50:00 Test Item Value Reference Range Interpretation Comments Lymphocytes (test code = Lymphocytes) 11.9 20.0-40.0 [place] 834170-01-21 11:50:00 Test Item Value Reference Range Interpretation Comments Monocytes (test code = Monocytes) 5.5 2.0-12.0 [place] 834170-01-21 11:50:00 Test Item Value Reference Range Interpretation Comments Eosinophils (test code = 0.5 See_Comment [A utomated message] The Eosinophils) system which ge nerated this result tra nsmitted reference range : <=4.0. The reference r eric was not used to int erpret this result as normal/abnormal . [place] 834170-01-21 11:50:00 Test Item Value Reference Range Interpretation Comments Basophils (test code = 0.5 See_Comment [Aut omated message] The Basophils) system which ge nerated this result tra nsmitted reference range : <=1.0. The reference r eric was not used to int erpret this result as normal/abnormal . [place] 834170-01-21 11:50:00 Test Item Value Reference Range Interpretation Comments Neutrophils # (test code = Neutrophils 12.8 1.5-8.1 #) [place] 834170-01-21 11:50:00 Test Item Value Reference Range Interpretation Comments Lymphocytes # (test code = Lymphocytes 1.9 1.0-5.5 #) [place] 834170-01-21 11:50:00 Test Item Value Reference Range Interpretation Comments Monocytes # (test code 0.9 See_Comment [Aut omated message] The = Monocytes #) system which generated this result tra nsmitted reference range : <=0.8. The reference r eric was not used to int erpret this result as normal/abnormal . [place] 834170-01-21 11:50:00 Test Item Value Reference Range Interpretation Comments Eosinophils # (test code 0.1 See_Comment [A utomated message] The = Eosinophils #) system whic h generated this result tra nsmitted reference range : <=0.5. The reference r eric was not used to int erpret this result as normal/abnormal . [place] 834170-01-21 11:50:00 Test Item Value Reference Range Interpretation Comments Basophils # (test code 0.1 See_Comment [Aut omated message] The = Basophils #) system which generated this result tra nsmitted reference range : <=0.2. The reference r eric was not used to int erpret this result as normal/abnormal . [facility] TempleYpnwtutBOSBLLCIWW1829-78-44 11:50:00 Test Item Value Reference Range Interpretation Comments WBC (test code = WBC) 15.7 3.7-10.4 [place] 834170-01-21 11:50:00 Test Item Value Reference Range Interpretation Comments RBC (test code = RBC) 3.95 4.20-5.40 [place] [address]-01-21 11:50:00 Test Item Value Reference Range Interpretation Comments Hgb (test code = Hgb) 10.2 12.0-16.0 [place] [address]-01-21 11:50:00 Test Item Value Reference Range Interpretation Comments Hct (test code = Hct) 32.3 36.0-48.0 [place] [address]-01-21 11:50:00 Test Item Value Reference Range Interpretation Comments MCV (test code = MCV) 81.9 80.0-98.0 [facility] CenterSjhxnvkMGOGSRBAGY2485-30-33 11:50:00 Test Item Value Reference Range Interpretation Comments MCH (test code = MCH) 25.9 pg 27.0-31.0 [facility]lyBMZCNJQHWC3875-12-78 11:50:00 Test Item Value Reference Range Interpretation Comments MCHC (test code = MCHC) 31.6 32.0-36.0 [facility] CenterZsghlpyJJOZWLXWXK0445-47-37 11:50:00 Test Item Value Reference Range Interpretation Comments RDW (test code = RDW) 14.9 11.5-14.5 [facility] CenterWfohdjhRVJOVKJJBX6262-62-19 11:50:00 Test Item Value Reference Range Interpretation Comments Platelet (test code = Platelet) 339 133-450 [facility] CenterMsmpccsGGAENZQYZM4125-80-96 11:50:00 Test Item Value Reference Range Interpretation Comments MPV (test code = MPV) 8.3 7.4-10.4 [facility] CenterO[facility] UENEQVK7728-44-74 21:57:00 Test Item Value Reference Range Interpretation Comments Total CK (test code = Total CK) 81 12-191 [facility] Center[facility] ZZNCDXC0484-36-27 21:57:00 Test Item Value Reference Range Interpretation Comments Troponin-I (test code no gt See_Comment [Auto mated message] The = Troponin-I) system which g enerated this result transmit thelma reference range : <=0.40. The reference r eric was not used to interpr et this result as zana l/abnormal. [facility] [place]2020-01-20 21:57:00 Test Item Value Reference Range Interpretation Comments Glucose Lvl (test code = Glucose Lvl) 85 70-99 [facility]2020-01-20 21:57:00 Test Item Value Reference Range Interpretation Comments BUN (test code = BUN) 38 7-22 [facility]2020-01-20 21:57:00 Test Item Value Reference Range Interpretation Comments Creatinine Lvl (test code = Creatinine 1.00 0.50-1.40 Lvl) [facility]2020-01-20 21:57:00 Test Item Value Reference Range Interpretation Comments Sodium Lvl (test code = Sodium Lvl) 138 135-145 [facility]2020-01-20 21:57:00 Test Item Value Reference Range Interpretation Comments Potassium Lvl (test code = Potassium 5.3 3.5-5.1 Lvl) [facility] CenterInteract Public Safety [id number] 21:57:00 Test Item Value Reference Range Interpretation Comments Chloride Lvl (test code = Chloride Lvl) 108 95-109 [facility] [id number] 21:57:00 Test Item Value Reference Range Interpretation Comments CO2 (test code = CO2) 24 24-32 [facility] [id number] 21:57:00 Test Item Value Reference Range Interpretation Comments Calcium Lvl (test code = Calcium Lvl) 8.5 8.5-10.5 [facility] [id number] 21:57:00 Test Item Value Reference Range Interpretation Comments Total Protein (test code = Total 6.1 6.4-8.4 Protein) [facility] [id number] 21:57:00 Test Item Value Reference Range Interpretation Comments Albumin Lvl (test code = Albumin Lvl) 2.6 3.5-5.0 [facility] [id number] 21:57:00 Test Item Value Reference Range Interpretation Comments ALT (test code = ALT) 12 See_Comment [Auto mated message] The system which ge nerated this result transmit thelma reference range : <=65. The reference range was not used to interpr et this result as zana l/abnormal. [facility] [id number] 21:57:00 Test Item Value Reference Range Interpretation Comments AST (test code = AST) 19 See_Comment [Auto mated message] The system which ge nerated this result transmit thelma reference range : <=37. The reference range was not used to interpr et this result as zana l/abnormal. [facility] [employer] [id number] 21:57:00 Test Item Value Reference Range Interpretation Comments Alk Phos (test code = Alk Phos) 52 39-136 [facility] [id number] 21:57:00 Test Item Value Reference Range Interpretation Comments Bili Total (test code = Bili Total) 0.3 0.2-1.3 [facility] [id number] 21:57:00 Test Item Value Reference Range Interpretation Comments AGAP (test code = AGAP) 11.3 10.0-20.0 [facility] [id number] 21:57:00 Test Item Value Reference Range Interpretation Comments B/C Ratio (test code = B/C Ratio) 38 [facility] 6-[address] [facility] [id number] 21:57:00 Test Item Value Reference Range Interpretation Comments Globulin (test code = Globulin) 3.5 2.7-4.2 [facility]2020-01-20 21:57:00 Test Item Value Reference Range Interpretation Comments A/G Ratio (test code = A/G Ratio) 0.7 1 0.7-1.6 [facility]2020-01-20 21:57:00 Test Item Value Reference Range Interpretation Comments eGFR (test code = eGFR) [address] [facility]Medlio[facility] [id number] 21:57:00 Test Item Value Reference Range Interpretation Comments Total CK (test code = Total CK) 81 12-[address] [facility]ME[facility] [id number] 21:57:00 Test Item Value Reference Range Interpretation Comments Troponin-I (test code no gt See_Comment [Auto mated message] The = Troponin-I) system which g enerated this result transmit thelma reference range : <=0.40. The reference r eric was not used to interpr et this result as zana l/abnormal. [facility] [id number] 21:57:00 Test Item Value Reference Range Interpretation Comments Glucose Lvl (test code = Glucose Lvl) 85 70-[address] [facility] [id number] 21:57:00 Test Item Value Reference Range Interpretation Comments BUN (test code = BUN) 38 7-[address] [facility] [id number] 21:57:00 Test Item Value Reference Range Interpretation Comments Creatinine Lvl (test code = Creatinine 1.00 0.50-1.40 Lvl) [facility] [id number] 21:57:00 Test Item Value Reference Range Interpretation Comments Sodium Lvl (test code = Sodium Lvl) 138 135-[address] [facility] [id number] 21:57:00 Test Item Value Reference Range Interpretation Comments Potassium Lvl (test code = Potassium 5.3 3.5-5.1 Lvl) [facility] [id number] 21:57:00 Test Item Value Reference Range Interpretation Comments Chloride Lvl (test code = Chloride Lvl) 108 95-109 [facility] [employer] [id number] 21:57:00 Test Item Value Reference Range Interpretation Comments CO2 (test code = CO2) 24 24-32 [facility] [id number] 21:57:00 Test Item Value Reference Range Interpretation Comments Calcium Lvl (test code = Calcium Lvl) 8.5 8.5-10.5 [facility] [employer] [id number] 21:57:00 Test Item Value Reference Range Interpretation Comments Total Protein (test code = Total 6.1 6.4-8.4 Protein) [facility] [id number] 21:57:00 Test Item Value Reference Range Interpretation Comments Albumin Lvl (test code = Albumin Lvl) 2.6 3.5-5.0 [facility] [employer] [id number] 21:57:00 Test Item Value Reference Range Interpretation Comments ALT (test code = ALT) 12 See_Comment [Auto mated message] The system which ge nerated this result transmit thelma reference range : <=65. The reference range was not used to interpr et this result as zana l/abnormal. [facility] [employer] [id number] 21:57:00 Test Item Value Reference Range Interpretation Comments AST (test code = AST) 19 See_Comment [Auto mated message] The system which ge nerated this result transmit thelma reference range : <=37. The reference range was not used to interpr et this result as zana l/abnormal. [facility] [employer] [id number] 21:57:00 Test Item Value Reference Range Interpretation Comments Alk Phos (test code = Alk Phos) 52 39-136 [facility] [employer] [id number] 21:57:00 Test Item Value Reference Range Interpretation Comments Bili Total (test code = Bili Total) 0.3 0.2-1.3 [facility] [employer] [id number] 21:57:00 Test Item Value Reference Range Interpretation Comments AGAP (test code = AGAP) 11.3 10.0-20.0 [facility] [employer] [id number] 21:57:00 Test Item Value Reference Range Interpretation Comments B/C Ratio (test code = B/C Ratio) 38 1 6-25 [place] [id number] 21:57:00 Test Item Value Reference Range Interpretation Comments Globulin (test code = Globulin) 3.5 2.7-4.2 [place] [id number] 21:57:00 Test Item Value Reference Range Interpretation Comments A/G Ratio (test code = A/G Ratio) 0.7 1 0.7-1.6 [place] [id number] 21:57:00 Test Item Value Reference Range Interpretation Comments eGFR (test code = eGFR) 56 [facility] [id number] 21:57:00 Test Item Value Reference Range Interpretation Comments Total CK (test code = Total CK) 81 12-191 [facility] [id number] 21:57:00 Test Item Value Reference Range Interpretation Comments Troponin-I (test code no gt See_Comment [Auto mated message] The = Troponin-I) system which g enerated this result transmit thelma reference range : <=0.40. The reference r eric was not used to interpr et this result as zana l/abnormal. [facility]2020-01-20 21:57:00 Test Item Value Reference Range Interpretation Comments Glucose Lvl (test code = Glucose Lvl) 85 70-99 [facility]2020-01-20 21:57:00 Test Item Value Reference Range Interpretation Comments BUN (test code = BUN) 38 7-22 [facility]2020-01-20 21:57:00 Test Item Value Reference Range Interpretation Comments Creatinine Lvl (test code = Creatinine 1.00 0.50-1.40 Lvl) [place] [id number] 21:57:00 Test Item Value Reference Range Interpretation Comments Sodium Lvl (test code = Sodium Lvl) 138 135-145 [place] [id number] 21:57:00 Test Item Value Reference Range Interpretation Comments Potassium Lvl (test code = Potassium 5.3 3.5-5.1 Lvl) [place] [id number] 21:57:00 Test Item Value Reference Range Interpretation Comments Chloride Lvl (test code = Chloride Lvl) 108 95-109 [facility]2020-01-20 21:57:00 Test Item Value Reference Range Interpretation Comments CO2 (test code = CO2) 24 24-32 [facility] [employer] [id number] 21:57:00 Test Item Value Reference Range Interpretation Comments Calcium Lvl (test code = Calcium Lvl) 8.5 8.5-10.5 [facility] [employer] [id number] 21:57:00 Test Item Value Reference Range Interpretation Comments Total Protein (test code = Total 6.1 6.4-8.4 Protein) [facility] [employer] [id number] 21:57:00 Test Item Value Reference Range Interpretation Comments Albumin Lvl (test code = Albumin Lvl) 2.6 3.5-5.0 [facility] [employer] [id number] 21:57:00 Test Item Value Reference Range Interpretation Comments ALT (test code = ALT) 12 See_Comment [Auto mated message] The system which ge nerated this result transmit thelma reference range : <=65. The reference range was not used to interpr et this result as zana l/abnormal. [facility] [employer] [id number] 21:57:00 Test Item Value Reference Range Interpretation Comments AST (test code = AST) 19 See_Comment [Auto mated message] The system which ge nerated this result transmit thelma reference range : <=37. The reference range was not used to interpr et this result as zana l/abnormal. [facility] [employer] [id number] 21:57:00 Test Item Value Reference Range Interpretation Comments Alk Phos (test code = Alk Phos) 52 39-136 [facility] [employer] [id number] 21:57:00 Test Item Value Reference Range Interpretation Comments Bili Total (test code = Bili Total) 0.3 0.2-1.3 [facility] [employer] [id number] 21:57:00 Test Item Value Reference Range Interpretation Comments AGAP (test code = AGAP) 11.3 10.0-20.0 [facility] [employer] [id number] 21:57:00 Test Item Value Reference Range Interpretation Comments B/C Ratio (test code = B/C Ratio) 38 1 6-25 [facility] [employer] [id number] 21:57:00 Test Item Value Reference Range Interpretation Comments Globulin (test code = Globulin) 3.5 2.7-4.2 [facility] [id number] 21:57:00 Test Item Value Reference Range Interpretation Comments A/G Ratio (test code = A/G Ratio) 0.7 1 0.7-1.6 [facility] [id number] 21:57:00 Test Item Value Reference Range Interpretation Comments eGFR (test code = eGFR) 56 [facility]:SUSC:PT:ISOLATE:ORDQN:[id number] 21:05:00 Test Item Value Reference Range Interpretation Comments Culture: Urine (test >100,000 CFU/mL Proteus code = Culture: mirabilis Urine) [facility]:SUSC:PT:ISOLATE:ORDQN:[id number] 21:05:00 Test Item Value Reference Range Interpretation Comments Proteus mirabilis (test Proteus mirabilis code = Proteus mirabilis) [facility] AND [id number] 21:05:00 Test Item Value Reference Range Interpretation Comments UA Turbidity (test code Slight *ABN*(10/03/19 = UA Turbidity) 3:05 PM) [facility] AND [id number] 21:05:00 Test Item Value Reference Range Interpretation Comments UA Spec Grav (test code = UA Spec 1.017 1 Grav) [facility] AND [id number] 21:05:00 Test Item Value Reference Range Interpretation Comments UA pH (test code = UA pH) 7.0 1 5.0-8.0 [facility] AND [id number] 21:05:00 Test Item Value Reference Range Interpretation Comments UA Protein (test code = UA Protein) 30 mg/dL [facility] AND [id number] 21:05:00 Test Item Value Reference Range Interpretation Comments UA Glucose (test code = UA Negative mg/dL Glucose) [facility] AND [id number] 21:05:00 Test Item Value Reference Range Interpretation Comments UA Ketones (test code = UA Trace mg/dL Ketones) [facility] AND [id number] 21:05:00 Test Item Value Reference Range Interpretation Comments UA Bili (test code = Negative *NA*(10/03/19 UA Bili) 3:05 PM) [facility] AND [id number] 21:05:00 Test Item Value Reference Range Interpretation Comments UA Blood (test code = Moderate *ABN*(10/03/19 UA Blood) 3:05 PM) [facility] [id number] 21:05:00 Test Item Value Reference Range Interpretation Comments UA Urobilinogen (test code = UA 2.0 0.1-1.0 Urobilinogen) [facility] [id number] 21:05:00 Test Item Value Reference Range Interpretation Comments UA Nitrite (test code Positive *ABN*(10/03/19 = UA Nitrite) 3:05 PM) [facility] [id number] 21:05:00 Test Item Value Reference Range Interpretation Comments UA Leuk Est (test code Large *ABN*(10/03/19 = UA Leuk Est) 3:05 PM) [facility] [id number] 21:05:00 Test Item Value Reference Range Interpretation Comments UA WBC (test code = 90 See_Comment [Automa thelma message] The UA WBC) system which ge nerated this result transmit thelma reference range : <=5. The reference range was not used to interpr et this result as zana l/abnormal. [facility] [id number] 21:05:00 Test Item Value Reference Range Interpretation Comments UA RBC (test code = 9 See_Comment [Automa thelma message] The UA RBC) system which ge nerated this result transmit thelma reference range : <=2. The reference range was not used to interpr et this result as zana l/abnormal. [facility] [id number] 21:05:00 Test Item Value Reference Range Interpretation Comments UA Bacteria (test code = UA Few /HPF Bacteria) [facility] [id number] 21:05:00 Test Item Value Reference Range Interpretation Comments UA Mucus (test code = UA Mucus) Few /LPF [facility] [id number] 21:05:00 Test Item Value Reference Range Interpretation Comments UA Hyal Cast (test 4 See_Comment [Automat ed message] The code = UA Hyal Cast) system which generated this result transmit thelma reference range : <=2. The reference range was not used to interpr et this result as zana l/abnormal. [facility] [id number] 21:05:00 Test Item Value Reference Range Interpretation Comments UA Sq Epi (test code = UA Sq Epi) None Seen [facility] AND [id number] 21:05:00 Test Item Value Reference Range Interpretation Comments UA Color (test code = UA Color) YELLOW [facility]:SUSC:PT:ISOLATE:ORDQN:[id number] 21:05:00 Test Item Value Reference Range Interpretation Comments Culture: Urine (test >100,000 CFU/mL Proteus code = Culture: mirabilis Urine) [facility]:SUSC:PT:ISOLATE:ORDQN:[id number] 21:05:00 Test Item Value Reference Range Interpretation Comments Proteus mirabilis (test Proteus mirabilis code = Proteus mirabilis) [facility] AND [id number] 21:05:00 Test Item Value Reference Range Interpretation Comments UA Turbidity (test code Slight *ABN*(10/03/19 = UA Turbidity) 3:05 PM) [facility] AND [id number] 21:05:00 Test Item Value Reference Range Interpretation Comments UA Spec Grav (test code = UA Spec 1.017 1 Grav) [facility] AND [id number] 21:05:00 Test Item Value Reference Range Interpretation Comments UA pH (test code = UA pH) 7.0 1 5.0-8.0 [facility] AND [id number] 21:05:00 Test Item Value Reference Range Interpretation Comments UA Protein (test code = UA Protein) 30 mg/dL [facility] AND [id number] 21:05:00 Test Item Value Reference Range Interpretation Comments UA Glucose (test code = UA Negative mg/dL Glucose) [facility] AND [id number] 21:05:00 Test Item Value Reference Range Interpretation Comments UA Ketones (test code = UA Trace mg/dL Ketones) [facility] AND [id number] 21:05:00 Test Item Value Reference Range Interpretation Comments UA Bili (test code = Negative *NA*(10/03/19 UA Bili) 3:05 PM) [facility] AND [id number] 21:05:00 Test Item Value Reference Range Interpretation Comments UA Blood (test code = Moderate *ABN*(10/03/19 UA Blood) 3:05 PM) [facility] [id number] 21:05:00 Test Item Value Reference Range Interpretation Comments UA Urobilinogen (test code = UA 2.0 0.1-1.0 Urobilinogen) [facility] [id number] 21:05:00 Test Item Value Reference Range Interpretation Comments UA Nitrite (test code Positive *ABN*(10/03/19 = UA Nitrite) 3:05 PM) [facility] [id number] 21:05:00 Test Item Value Reference Range Interpretation Comments UA Leuk Est (test code Large *ABN*(10/03/19 = UA Leuk Est) 3:05 PM) [facility] [id number] 21:05:00 Test Item Value Reference Range Interpretation Comments UA WBC (test code = 90 See_Comment [Automa thelma message] The UA WBC) system which ge nerated this result transmit thelma reference range : <=5. The reference range was not used to interpr et this result as zana l/abnormal. [facility] [id number] 21:05:00 Test Item Value Reference Range Interpretation Comments UA RBC (test code = 9 See_Comment [Automa thelma message] The UA RBC) system which ge nerated this result transmit thelma reference range : <=2. The reference range was not used to interpr et this result as zana l/abnormal. [facility] [id number] 21:05:00 Test Item Value Reference Range Interpretation Comments UA Bacteria (test code = UA Few /HPF Bacteria) [facility] [id number] 21:05:00 Test Item Value Reference Range Interpretation Comments UA Mucus (test code = UA Mucus) Few /LPF [facility] [id number] 21:05:00 Test Item Value Reference Range Interpretation Comments UA Hyal Cast (test 4 See_Comment [Automat ed message] The code = UA Hyal Cast) system which generated this result transmit thelma reference range : <=2. The reference range was not used to interpr et this result as zana l/abnormal. [facility] [id number] 21:05:00 Test Item Value Reference Range Interpretation Comments UA Sq Epi (test code = UA Sq Epi) None Seen [facility] AND [id number] 21:05:00 Test Item Value Reference Range Interpretation Comments UA Color (test code = UA Color) YELLOW [facility]:SUSC:PT:ISOLATE:ORDQN:[id number] 21:05:00 Test Item Value Reference Range Interpretation Comments Culture: Urine (test >100,000 CFU/mL Proteus code = Culture: mirabilis Urine) [facility]:SUSC:PT:ISOLATE:ORDQN:[id number] 21:05:00 Test Item Value Reference Range Interpretation Comments Proteus mirabilis (test Proteus mirabilis code = Proteus mirabilis) [facility] AND [id number] 21:05:00 Test Item Value Reference Range Interpretation Comments UA Turbidity (test code Slight *ABN*(10/03/19 = UA Turbidity) 3:05 PM) [facility] AND [id number] 21:05:00 Test Item Value Reference Range Interpretation Comments UA Spec Grav (test code = UA Spec 1.017 1 Grav) [facility] AND [id number] 21:05:00 Test Item Value Reference Range Interpretation Comments UA pH (test code = UA pH) 7.0 1 5.0-8.0 [facility] AND [id number] 21:05:00 Test Item Value Reference Range Interpretation Comments UA Protein (test code = UA Protein) 30 mg/dL [facility] AND [id number] 21:05:00 Test Item Value Reference Range Interpretation Comments UA Glucose (test code = UA Negative mg/dL Glucose) [facility] AND [id number] 21:05:00 Test Item Value Reference Range Interpretation Comments UA Ketones (test code = UA Trace mg/dL Ketones) [facility] AND [id number] 21:05:00 Test Item Value Reference Range Interpretation Comments UA Bili (test code = Negative *NA*(10/03/19 UA Bili) 3:05 PM) [facility] AND [id number] 21:05:00 Test Item Value Reference Range Interpretation Comments UA Blood (test code = Moderate *ABN*(10/03/19 UA Blood) 3:05 PM) [facility] [id number] 21:05:00 Test Item Value Reference Range Interpretation Comments UA Urobilinogen (test code = UA 2.0 0.1-1.0 Urobilinogen) [facility] [id number] 21:05:00 Test Item Value Reference Range Interpretation Comments UA Nitrite (test code Positive *ABN*(10/03/19 = UA Nitrite) 3:05 PM) [facility] [id number] 21:05:00 Test Item Value Reference Range Interpretation Comments UA Leuk Est (test code Large *ABN*(10/03/19 = UA Leuk Est) 3:05 PM) [facility] [id number] 21:05:00 Test Item Value Reference Range Interpretation Comments UA WBC (test code = 90 See_Comment [Automa thelma message] The UA WBC) system which ge nerated this result transmit thelma reference range : <=5. The reference range was not used to interpr et this result as zana l/abnormal. [facility] [id number] 21:05:00 Test Item Value Reference Range Interpretation Comments UA RBC (test code = 9 See_Comment [Automa thelma message] The UA RBC) system which ge nerated this result transmit thelma reference range : <=2. The reference range was not used to interpr et this result as zana l/abnormal. [facility] [id number] 21:05:00 Test Item Value Reference Range Interpretation Comments UA Bacteria (test code = UA Few /HPF Bacteria) [facility] [id number] 21:05:00 Test Item Value Reference Range Interpretation Comments UA Mucus (test code = UA Mucus) Few /LPF [facility] [id number] 21:05:00 Test Item Value Reference Range Interpretation Comments UA Hyal Cast (test 4 See_Comment [Automat ed message] The code = UA Hyal Cast) system which generated this result transmit thelma reference range : <=2. The reference range was not used to interpr et this result as zana l/abnormal. [facility] [id number] 21:05:00 Test Item Value Reference Range Interpretation Comments UA Sq Epi (test code = UA Sq Epi) None Seen [facility] [id number] 21:05:00 Test Item Value Reference Range Interpretation Comments UA Color (test code = UA Color) [facility] [id number] 20:43:00 Test Item Value Reference Range Interpretation Comments Procalcitonin Lvl (test no gt See_Comment [Au tomated message] code = Procalcitonin Lvl) Th e system which generated this result transmitted ref erence range: <=0.10. The reference range was not used to interpr et this result as normal/abnormal . [facility] [id number] 20:43:00 Test Item Value Reference Range Interpretation Comments Lactic Acid Lvl (test code = Lactic 1.3 0.5-2.2 Acid Lvl) [id number] 20:43:00 Test Item Value Reference Range Interpretation Comments WBC (test code = WBC) 20.6 3.7-10.4 [facility] [id number] 20:43:00 Test Item Value Reference Range Interpretation Comments RBC (test code = RBC) 4.33 4.20-5.40 [facility] [id number] 20:43:00 Test Item Value Reference Range Interpretation Comments Hgb (test code = Hgb) 11.2 12.0-16.0 [facility] [id number] 20:43:00 Test Item Value Reference Range Interpretation Comments Hct (test code = Hct) 35.9 36.0-48.0 [facility] [id number] 20:43:00 Test Item Value Reference Range Interpretation Comments MCV (test code = MCV) 83.0 80.0-98.0 [facility] [id number] 20:43:00 Test Item Value Reference Range Interpretation Comments MCH (test code = MCH) 25.9 pg 27.0-31.0 [facility] [id number] 20:43:00 Test Item Value Reference Range Interpretation Comments MCHC (test code = MCHC) 31.2 32.0-36.0 [facility]VeoefnlTMEXYOPNMW5259-65-15 20:43:00 Test Item Value Reference Range Interpretation Comments RDW (test code = RDW) 14.9 11.5-14.5 [place] [id number] 20:43:00 Test Item Value Reference Range Interpretation Comments Platelet (test code = Platelet) 358 133-450 [facility] TempleLkmbuipYCPTBDPLYM6840-64-64 20:43:00 Test Item Value Reference Range Interpretation Comments MPV (test code = MPV) 7.9 7.4-10.4 [facility] TempleDxtasxjSLNMLFYNGR0528-38-09 20:43:00 Test Item Value Reference Range Interpretation Comments PT (test code = PT) 14.3 s 12.0-14.7 [facility] TempleFgjwryuXDYJFTCWDD9941-77-20 20:43:00 Test Item Value Reference Range Interpretation Comments INR (test code = INR) 1.11 1 0.85-1.17 [place] [id number] 20:43:00 Test Item Value Reference Range Interpretation Comments PTT (test code = PTT) 24.8 s 22.9-35.8 [facility] TempleJrzgjgbDEXNEIBBET8877-14-28 20:43:00 Test Item Value Reference Range Interpretation Comments Segs (test code = Segs) 88.7 45.0-75.0 [facility] TempleEibhfweEZKJCACJTL9425-34-35 20:43:00 Test Item Value Reference Range Interpretation Comments Lymphocytes (test code = Lymphocytes) 5.5 20.0-40.0 [facility] TempleFxmdhthNKCIOHXEQY3687-87-71 20:43:00 Test Item Value Reference Range Interpretation Comments Monocytes (test code = Monocytes) 5.3 2.0-12.0 [facility] TempleMfsmybvWBHNCTJLZT5008-92-29 20:43:00 Test Item Value Reference Range Interpretation Comments Eosinophils (test code = 0.3 See_Comment [A utomated message] The Eosinophils) system which ge nerated this result tra nsmitted reference range : <=4.0. The reference r eric was not used to int erpret this result as normal/abnormal . [facility] TempleIqlxwvdDMEHULWGQL5937-04-91 20:43:00 Test Item Value Reference Range Interpretation Comments Basophils (test code = 0.2 See_Comment [Aut omated message] The Basophils) system which ge nerated this result tra nsmitted reference range : <=1.0. The reference r eric was not used to int erpret this result as normal/abnormal . [facility] TempleYehsfkjRRDTGWVUSM4622-82-16 20:43:00 Test Item Value Reference Range Interpretation Comments Neutrophils # (test code = Neutrophils 18.2 1.5-8.1 #) [facility] TempleThgtcuuPGBEDHMJOJ2019-29-98 20:43:00 Test Item Value Reference Range Interpretation Comments Lymphocytes # (test code = Lymphocytes 1.1 1.0-5.5 #) [facility] TempleRyottxxFRYHVYCGCH0732-53-46 20:43:00 Test Item Value Reference Range Interpretation Comments Monocytes # (test code 1.1 See_Comment [Aut omated message] The = Monocytes #) system which generated this result tra nsmitted reference range : <=0.8. The reference r eric was not used to int erpret this result as normal/abnormal . [facility] TempleJmosgwfTKHDCWOGMB5176-73-80 20:43:00 Test Item Value Reference Range Interpretation Comments Eosinophils # (test code 0.1 See_Comment [A utomated message] The = Eosinophils #) system whic h generated this result tra nsmitted reference range : <=0.5. The reference r eric was not used to int erpret this result as normal/abnormal . [facility] [id number] 20:43:00 Test Item Value Reference Range Interpretation Comments Procalcitonin Lvl (test no gt See_Comment [Au tomated message] code = Procalcitonin Lvl) Th e system which generated this result transmitted ref erence range: <=0.10. The reference range was not used to interpr et this result as normal/abnormal . [facility] [id number] 20:43:00 Test Item Value Reference Range Interpretation Comments Lactic Acid Lvl (test code = Lactic 1.3 0.5-2.2 Acid Lvl) [facility] TempleXsviebkDAGBCXEGZB0587-02-14 20:43:00 Test Item Value Reference Range Interpretation Comments WBC (test code = WBC) 20.6 3.7-10.4 [facility] TempleYqaikknYDHTSIRGMK9255-38-35 20:43:00 Test Item Value Reference Range Interpretation Comments RBC (test code = RBC) 4.33 4.20-5.40 [facility] TempleGlwcpxdPGGULBDCOR3085-77-79 20:43:00 Test Item Value Reference Range Interpretation Comments Hgb (test code = Hgb) 11.2 12.0-16.0 [place] [id number] 20:43:00 Test Item Value Reference Range Interpretation Comments Hct (test code = Hct) 35.9 36.0-48.0 [facility] TempleXnmpgzcALMVOKENRJ9582-45-60 20:43:00 Test Item Value Reference Range Interpretation Comments MCV (test code = MCV) 83.0 80.0-98.0 [facility] TemplePzbguduYQUEOIXQRJ1709-47-94 20:43:00 Test Item Value Reference Range Interpretation Comments MCH (test code = MCH) 25.9 pg 27.0-31.0 [facility] TempleGyrzhoqUGJQSUOMLJ6756-11-16 20:43:00 Test Item Value Reference Range Interpretation Comments MCHC (test code = MCHC) 31.2 32.0-36.0 [facility] TempleYpqxlzoKLRBJELBTE6933-20-94 20:43:00 Test Item Value Reference Range Interpretation Comments RDW (test code = RDW) 14.9 11.5-14.5 [facility] TempleBcgkcpmMPWRIZFUHZ2573-11-53 20:43:00 Test Item Value Reference Range Interpretation Comments Platelet (test code = Platelet) 358 133-450 [facility] TempleDfmdouxUFHMFFBGAN6684-76-47 20:43:00 Test Item Value Reference Range Interpretation Comments MPV (test code = MPV) 7.9 7.4-10.4 [facility] TempleDcwtvcxRVIXOTPZAL6241-28-54 20:43:00 Test Item Value Reference Range Interpretation Comments PT (test code = PT) 14.3 s 12.0-14.7 [facility] TempleUsjnqwhWSWKIQJWEA9349-69-17 20:43:00 Test Item Value Reference Range Interpretation Comments INR (test code = INR) 1.11 1 0.85-1.17 [facility] TempleGpndjsmBUPPFECEXH0823-31-06 20:43:00 Test Item Value Reference Range Interpretation Comments PTT (test code = PTT) 24.8 s 22.9-35.8 [facility] TempleNwsvflzGUNINMHAKV7685-91-74 20:43:00 Test Item Value Reference Range Interpretation Comments Segs (test code = Segs) 88.7 45.0-75.0 [facility] TempleXuwhgyoFCPHLVOSAA4838-59-94 20:43:00 Test Item Value Reference Range Interpretation Comments Lymphocytes (test code = Lymphocytes) 5.5 20.0-40.0 [facility] TempleWnukxqrCTUVEDYYIE0883-24-70 20:43:00 Test Item Value Reference Range Interpretation Comments Monocytes (test code = Monocytes) 5.3 2.0-12.0 [facility] TempleLhdsgxoJGJFEHECDO0349-71-04 20:43:00 Test Item Value Reference Range Interpretation Comments Eosinophils (test code = 0.3 See_Comment [A utomated message] The Eosinophils) system which ge nerated this result tra nsmitted reference range : <=4.0. The reference r eric was not used to int erpret this result as normal/abnormal . [facility] TempleJhasffjXMYVHTGGOF4947-22-16 20:43:00 Test Item Value Reference Range Interpretation Comments Basophils (test code = 0.2 See_Comment [Aut omated message] The Basophils) system which ge nerated this result tra nsmitted reference range : <=1.0. The reference r eric was not used to int erpret this result as normal/abnormal . [facility] TempleBhyvmhoURMUFWWXTS6521-16-66 20:43:00 Test Item Value Reference Range Interpretation Comments Neutrophils # (test code = Neutrophils 18.2 1.5-8.1 #) [facility] TempleGdsvfppQCHPHMSYNZ5537-81-13 20:43:00 Test Item Value Reference Range Interpretation Comments Lymphocytes # (test code = Lymphocytes 1.1 1.0-5.5 #) [facility] TempleMqhimlgIBJJSXLBDV7874-68-25 20:43:00 Test Item Value Reference Range Interpretation Comments Monocytes # (test code 1.1 See_Comment [Aut omated message] The = Monocytes #) system which generated this result tra nsmitted reference range : <=0.8. The reference r eric was not used to int erpret this result as normal/abnormal . [facility] TempleGhwridbWIPRKPPMRC9191-97-32 20:43:00 Test Item Value Reference Range Interpretation Comments Eosinophils # (test code 0.1 See_Comment [A utomated message] The = Eosinophils #) system whic h generated this result tra nsmitted reference range : <=0.5. The reference r eric was not used to int erpret this result as normal/abnormal . [facility]2020-01-20 20:43:00 Test Item Value Reference Range Interpretation Comments Procalcitonin Lvl (test no gt See_Comment [Au tomated message] code = Procalcitonin Lvl) Th e system which generated this result transmitted ref erence range: <=0.10. The reference range was not used to interpr et this result as normal/abnormal . [facility]2020-01-20 20:43:00 Test Item Value Reference Range Interpretation Comments Lactic Acid Lvl (test code = Lactic 1.3 0.5-2.2 Acid Lvl) [facility] TempleBvcjthxSDEHZZDDLE5704-80-73 20:43:00 Test Item Value Reference Range Interpretation Comments WBC (test code = WBC) 20.6 3.7-10.4 [facility] TempleTzjfaapYGSSBDXRFU1281-09-43 20:43:00 Test Item Value Reference Range Interpretation Comments RBC (test code = RBC) 4.33 4.20-5.40 [facility] TempleVaokbbzBQVPKKFHLY1231-50-67 20:43:00 Test Item Value Reference Range Interpretation Comments Hgb (test code = Hgb) 11.2 12.0-16.0 [facility] TempleVvnizvhAASDPUYMJB8655-44-61 20:43:00 Test Item Value Reference Range Interpretation Comments Hct (test code = Hct) 35.9 36.0-48.0 [facility] TempleXbjkczjWXEXVFOBTZ3016-12-33 20:43:00 Test Item Value Reference Range Interpretation Comments MCV (test code = MCV) 83.0 80.0-98.0 [facility] TempleTzlnulaCXVNVWCUXV0463-46-63 20:43:00 Test Item Value Reference Range Interpretation Comments MCH (test code = MCH) 25.9 pg 27.0-31.0 [facility] TempleVljtgelKLDSGNUQGS3955-47-41 20:43:00 Test Item Value Reference Range Interpretation Comments MCHC (test code = MCHC) 31.2 32.0-36.0 [facility] TempleSwcxheoGNZSYPWFQK5469-43-88 20:43:00 Test Item Value Reference Range Interpretation Comments RDW (test code = RDW) 14.9 11.5-14.5 [facility] TempleYbnnuhgQEIMPZFIUF3471-77-91 20:43:00 Test Item Value Reference Range Interpretation Comments Platelet (test code = Platelet) 358 133-450 [facility] TempleCyymrkmTBWWFVFXOF5623-45-96 20:43:00 Test Item Value Reference Range Interpretation Comments MPV (test code = MPV) 7.9 7.4-10.4 [facility] TempleWtjirxkLNXZUOOYVM3872-09-71 20:43:00 Test Item Value Reference Range Interpretation Comments PT (test code = PT) 14.3 s 12.0-14.7 [facility] TempleVecrntiZTXPHRUECO6154-61-99 20:43:00 Test Item Value Reference Range Interpretation Comments INR (test code = INR) 1.11 1 0.85-1.17 [facility] TempleZzlrmmhFBHWRYLNFO3798-68-79 20:43:00 Test Item Value Reference Range Interpretation Comments PTT (test code = PTT) 24.8 s 22.9-35.8 [facility] TempleVamtdogEATQRIDPES6655-95-39 20:43:00 Test Item Value Reference Range Interpretation Comments Segs (test code = Segs) 88.7 45.0-75.0 [facility] TempleRyjiayaCGVPENCPRU2409-36-09 20:43:00 Test Item Value Reference Range Interpretation Comments Lymphocytes (test code = Lymphocytes) 5.5 20.0-40.0 [facility] TempleLonwnvnJMJDIOTYZI8419-77-48 20:43:00 Test Item Value Reference Range Interpretation Comments Monocytes (test code = Monocytes) 5.3 2.0-12.0 [facility] TempleMmycsbkYOULJQVQSC7460-04-83 20:43:00 Test Item Value Reference Range Interpretation Comments Eosinophils (test code = 0.3 See_Comment [A utomated message] The Eosinophils) system which ge nerated this result tra nsmitted reference range : <=4.0. The reference r eric was not used to int erpret this result as normal/abnormal . [facility] TempleSuihobfIMQOXXJPGU9510-68-27 20:43:00 Test Item Value Reference Range Interpretation Comments Basophils (test code = 0.2 See_Comment [Aut omated message] The Basophils) system which ge nerated this result tra nsmitted reference range : <=1.0. The reference r eric was not used to int erpret this result as normal/abnormal . [facility] TempleRmumdoiFEKHZOPORF5109-16-83 20:43:00 Test Item Value Reference Range Interpretation Comments Neutrophils # (test code = Neutrophils 18.2 1.5-8.1 #) [facility] TempleBjklohrUZKTFOYCFY7725-41-45 20:43:00 Test Item Value Reference Range Interpretation Comments Lymphocytes # (test code = Lymphocytes 1.1 1.0-5.5 #) [facility] TempleUdzboqtPUKZVOXBSL8075-06-12 20:43:00 Test Item Value Reference Range Interpretation Comments Monocytes # (test code 1.1 See_Comment [Aut omated message] The = Monocytes #) system which generated this result tra nsmitted reference range : <=0.8. The reference r eric was not used to int erpret this result as normal/abnormal . [facility] TempleBplzpuvWJRGRSJQWU3358-54-82 20:43:00 Test Item Value Reference Range Interpretation Comments Eosinophils # (test code 0.1 See_Comment [A utomated message] The = Eosinophils #) system whic h generated this result tra nsmitted reference range : <=0.5. The reference r eric was not used to int erpret this result as normal/abnormal . [facility] Jasbir, EXTREMITY, LOWER, JOINT, WITHOUT CONTRAST, [id number] 17:12:00Reason for exam:->RT hip pain, concern occult [...] NarayanMDReport Verified Date/Time: 09/17/2018 17:12:01 Reading Location: [facility] C0X Ortho Consult Reading Room RAD, KNEE, 3 VIEWS, [id number] 15:21:00 Reason for exam:->KNEE PAIN Should this [...] Walton Verified Date/Time: 09/17/2018 15:21:02 Reading Location: [facility] Diagnostic Imaging Reading Room - [facility] 1.310.12 RAD, HIP, 2 VIEWS, [id number] 15:19:00Reason for exam:->Rt Hip Pain, traumaShould this be performed at the bedside?->NoFINAL REPORT RIGHT HIP History provided: Right hip pain No fracture or dislocation. Hip joint space well maintained. Evidence of extensive multilevel fusion procedure in the lumbarspine. Signed: Tony Walton Verified Date/Time: 09/17/2018 15:19:53 [facility] F1 1.310.12 URINE AND [id number] 08:10:00 Test Item Value Reference Range Interpretation Comments UA Leuk Est (test Negative (12/10/16 3:10 code = UA Leuk Est) AM) [facility] AND [id number] 08:10:00 Test Item Value Reference Range Interpretation Comments UA Sq Epi (test code = UA Sq Occasional /LPF Epi) [facility] AND [id number] 08:10:00 Test Item Value Reference Range Interpretation Comments UA WBC (test code = no gt See_Comment [Automa thelma message] The UA WBC) system which ge nerated this result transmit thelma reference range : <=5. The reference range was not used to interpr et this result as zana l/abnormal. [facility] AND [id number] 08:10:00 Test Item Value Reference Range Interpretation Comments UA Mucus (test code = UA Mucus) Few /LPF [facility] AND [id number] 08:10:00 Test Item Value Reference Range Interpretation Comments UA Glucose (test code = UA Negative mg/dL Glucose) [facility] AND [id number] 08:10:00 Test Item Value Reference Range Interpretation Comments UA Ketones (test code = UA Negative mg/dL Ketones) [facility] AND [id number] 08:10:00 Test Item Value Reference Range Interpretation Comments UA Nitrite (test code Negative (12/10/16 3:10 = UA Nitrite) AM) [facility] AND [id number] 08:10:00 Test Item Value Reference Range Interpretation Comments UA Blood (test code = Negative (12/10/16 3:10 UA Blood) AM) [facility] AND [id number] 08:10:00 Test Item Value Reference Range Interpretation Comments UA Bili (test code = Negative *NA*(12/10/16 UA Bili) 3:10 AM) [facility] AND [id number] 08:10:00 Test Item Value Reference Range Interpretation Comments UA Color (test code = Light Yellow UA Color) *NA*(12/10/16 3:10 AM) [facility] AND [id number] 08:10:00 Test Item Value Reference Range Interpretation Comments UA Turbidity (test code = Clear (12/10/16 3:10 UA Turbidity) AM) [facility] AND [id number] 08:10:00 Test Item Value Reference Range Interpretation Comments UA pH (test code = UA pH) 6.5 5.0-8.0 [facility] AND [id number] 08:10:00 Test Item Value Reference Range Interpretation Comments UA Protein (test code = UA Negative mg/dL Protein) [facility] AND [id number] 08:10:00 Test Item Value Reference Range Interpretation Comments UA Spec Grav (test code = UA Spec Grav) 1.008 [facility] AND [id number] 08:10:00 Test Item Value Reference Range Interpretation Comments UA Urobilinogen (test code = UA <=1.0 mg/dL 0.1-1.0 Urobilinogen) [facility] AND [id number] 08:10:00 Test Item Value Reference Range Interpretation Comments UA Leuk Est (test Negative (12/10/16 3:10 code = UA Leuk Est) AM) [facility] AND [id number] 08:10:00 Test Item Value Reference Range Interpretation Comments UA Sq Epi (test code = UA Sq Occasional /LPF Epi) [facility] AND [id number] 08:10:00 Test Item Value Reference Range Interpretation Comments UA WBC (test code = no gt See_Comment [Automa thelma message] The UA WBC) system which ge nerated this result transmit thelma reference range : <=5. The reference range was not used to interpr et this result as zana l/abnormal. [facility] AND [id number] 08:10:00 Test Item Value Reference Range Interpretation Comments UA Mucus (test code = UA Mucus) Few /LPF [facility] AND [id number] 08:10:00 Test Item Value Reference Range Interpretation Comments UA Glucose (test code = UA Negative mg/dL Glucose) [facility] AND [id number] 08:10:00 Test Item Value Reference Range Interpretation Comments UA Ketones (test code = UA Negative mg/dL Ketones) [facility] AND [id number] 08:10:00 Test Item Value Reference Range Interpretation Comments UA Nitrite (test code Negative (12/10/16 3:10 = UA Nitrite) AM) [facility] AND [id number] 08:10:00 Test Item Value Reference Range Interpretation Comments UA Blood (test code = Negative (12/10/16 3:10 UA Blood) AM) [facility] AND [id number] 08:10:00 Test Item Value Reference Range Interpretation Comments UA Bili (test code = Negative *NA*(12/10/16 UA Bili) 3:10 AM) [facility] AND [id number] 08:10:00 Test Item Value Reference Range Interpretation Comments UA Color (test code = Light Yellow UA Color) *NA*(12/10/16 3:10 AM) [facility] AND [id number] 08:10:00 Test Item Value Reference Range Interpretation Comments UA Turbidity (test code = Clear (12/10/16 3:10 UA Turbidity) AM) [facility] AND [id number] 08:10:00 Test Item Value Reference Range Interpretation Comments UA pH (test code = UA pH) 6.5 5.0-8.0 [facility] AND [id number] 08:10:00 Test Item Value Reference Range Interpretation Comments UA Protein (test code = UA Negative mg/dL Protein) [facility] AND [id number] 08:10:00 Test Item Value Reference Range Interpretation Comments UA Spec Grav (test code = UA Spec Grav) 1.008 [facility] AND [id number] 08:10:00 Test Item Value Reference Range Interpretation Comments UA Urobilinogen (test code = UA <=1.0 mg/dL 0.1-1.0 Urobilinogen) [facility] AND [id number] 08:10:00 Test Item Value Reference Range Interpretation Comments UA Leuk Est (test Negative (12/10/16 3:10 code = UA Leuk Est) AM) [facility] AND [id number] 08:10:00 Test Item Value Reference Range Interpretation Comments UA Sq Epi (test code = UA Sq Occasional /LPF Epi) [facility] AND [id number] 08:10:00 Test Item Value Reference Range Interpretation Comments UA WBC (test code = no gt See_Comment [Automa thelma message] The UA WBC) system which ge nerated this result transmit thelma reference range : <=5. The reference range was not used to interpr et this result as zana l/abnormal. [facility] AND [id number] 08:10:00 Test Item Value Reference Range Interpretation Comments UA Mucus (test code = UA Mucus) Few /LPF [facility] AND [id number] 08:10:00 Test Item Value Reference Range Interpretation Comments UA Glucose (test code = UA Negative mg/dL Glucose) [facility] AND [id number] 08:10:00 Test Item Value Reference Range Interpretation Comments UA Ketones (test code = UA Negative mg/dL Ketones) [facility] AND [id number] 08:10:00 Test Item Value Reference Range Interpretation Comments UA Nitrite (test code Negative (12/10/16 3:10 = UA Nitrite) AM) [facility] AND [id number] 08:10:00 Test Item Value Reference Range Interpretation Comments UA Blood (test code = Negative (12/10/16 3:10 [facility] Blood) AM) [facility] [id number] 08:10:00 Test Item Value Reference Range Interpretation Comments UA Bili (test code = Negative *NA*(12/10/16 UA Bili) 3:10 AM) [facility] [id number] 08:10:00 Test Item Value Reference Range Interpretation Comments UA Color (test code = Light Yellow UA Color) *NA*(12/10/16 3:10 AM) [facility] [id number] 08:10:00 Test Item Value Reference Range Interpretation Comments UA Turbidity (test code = Clear (12/10/16 3:10 UA Turbidity) AM) [facility] [id number] 08:10:00 Test Item Value Reference Range Interpretation Comments UA pH (test code = UA pH) 6.5 5.0-8.0 [facility] [id number] 08:10:00 Test Item Value Reference Range Interpretation Comments UA Protein (test code = UA Negative mg/dL Protein) [facility] [id number] 08:10:00 Test Item Value Reference Range Interpretation Comments UA Spec Grav (test code = UA Spec Grav) 1.008 [facility] [id number] 08:10:00 Test Item Value Reference Range Interpretation Comments UA Urobilinogen (test code = UA <=1.0 mg/dL 0.1-1.0 Urobilinogen) [facility] [id number] 07:48:00 Test Item Value Reference Range Interpretation Comments Total CK (test code = Total CK) 59 12-191 [facility] [id number] 07:48:00 Test Item Value Reference Range Interpretation Comments Troponin-I (test code no gt See_Comment [Auto mated message] The = Troponin-I) system which g enerated this result transmit thelma reference range : <=0.40. The reference r eric was not used to interpr et this result as zana l/abnormal. [facility] [id number] 07:48:00 Test Item Value Reference Range Interpretation Comments CK MB (test code = CK MB) 1.4 0.5-3.6 [facility] [id number] 07:48:00 Test Item Value Reference Range Interpretation Comments CK MB Index (test 2.4 See_Comment [Automate d message] The code = CK MB Index) system w [facility] generated this result transmit thelma reference range : <=2.5. The reference range was not used to interpr et this result as zana l/abnormal. [facility]2017-03-29 07:48:00 Test Item Value Reference Range Interpretation Comments eGFR (test code = eGFR) 55 [facility]2017-03-29 07:48:00 Test Item Value Reference Range Interpretation Comments B/C Ratio (test code = B/C Ratio) 23 6-25 [facility]2017-03-29 07:48:00 Test Item Value Reference Range Interpretation Comments Globulin (test code = Globulin) 3.5 2.7-4.2 [facility]2017-03-29 07:48:00 Test Item Value Reference Range Interpretation Comments AGAP (test code = AGAP) 16.2 10.0-20.0 [facility]2017-03-29 07:48:00 Test Item Value Reference Range Interpretation Comments Creatinine Lvl (test code = Creatinine 1.04 0.50-1.40 Lvl) [facility]2017-03-29 07:48:00 Test Item Value Reference Range Interpretation Comments Sodium Lvl (test code = Sodium Lvl) 139 135-145 [facility]2017-03-29 07:48:00 Test Item Value Reference Range Interpretation Comments BUN (test code = BUN) 24 7-22 [facility]2017-03-29 07:48:00 Test Item Value Reference Range Interpretation Comments Glucose Lvl (test code = Glucose Lvl) 153 70-99 [facility]2017-03-29 07:48:00 Test Item Value Reference Range Interpretation Comments A/G Ratio (test code = A/G Ratio) 1.1 0.7-1.6 [facility]2017-03-29 07:48:00 Test Item Value Reference Range Interpretation Comments Calcium Lvl (test code = Calcium Lvl) 9.6 8.5-10.5 [facility]2017-03-29 07:48:00 Test Item Value Reference Range Interpretation Comments Total Protein (test code = Total 7.3 6.4-8.4 Protein) [facility]2017-03-29 07:48:00 Test Item Value Reference Range Interpretation Comments Chloride Lvl (test code = Chloride Lvl) 106 95-109 [place] 902387-03-29 07:48:00 Test Item Value Reference Range Interpretation Comments CO2 (test code = CO2) 22 24-32 [place] [address]-03-29 07:48:00 Test Item Value Reference Range Interpretation Comments Potassium Lvl (test code = Potassium 5.2 3.5-5.1 Lvl) [place] [address]-03-29 07:48:00 Test Item Value Reference Range Interpretation Comments Bili Total (test code = Bili Total) 0.1 0.2-1.3 [place] [address]-03-29 07:48:00 Test Item Value Reference Range Interpretation Comments AST (test code = AST) 12 See_Comment [Auto mated message] The system which ge nerated this result transmit thelma reference range : <=37. The reference range was not used to interpr et this result as zana l/abnormal. [facility]2017-03-29 07:48:00 Test Item Value Reference Range Interpretation Comments Alk Phos (test code = Alk Phos) 58 39-136 [facility]2017-03-29 07:48:00 Test Item Value Reference Range Interpretation Comments ALT (test code = ALT) 15 See_Comment [Auto mated message] The system which ge nerated this result transmit thelma reference range : <=65. The reference range was not used to interpr et this result as zana l/abnormal. [facility]2017-03-29 07:48:00 Test Item Value Reference Range Interpretation Comments Albumin Lvl (test code = Albumin Lvl) 3.8 3.5-5.0 [facility] TempleTnahijnKEXYREIREM5716-16-77 07:48:00 Test Item Value Reference Range Interpretation Comments WBC (test code = WBC) 10.0 3.7-10.4 [place] [address]-03-29 07:48:00 Test Item Value Reference Range Interpretation Comments MCV (test code = MCV) 83.2 80.0-98.0 [place] [address]-03-29 07:48:00 Test Item Value Reference Range Interpretation Comments Hct (test code = Hct) 38.1 36.0-48.0 [facility] TempleLhjbyasJCAMIXVXQU8588-20-75 07:48:00 Test Item Value Reference Range Interpretation Comments Hgb (test code = Hgb) 12.3 12.0-16.0 [facility] TempleUppgtwkCKGPZHYYTM2388-96-68 07:48:00 Test Item Value Reference Range Interpretation Comments RBC (test code = RBC) 4.57 4.20-5.40 [facility] TempleSpbuuarGHTDLZGFHA1824-42-60 07:48:00 Test Item Value Reference Range Interpretation Comments RDW (test code = RDW) 14.1 11.5-14.5 [facility] TempleMkjotshCYTWMQMITT3633-40-00 07:48:00 Test Item Value Reference Range Interpretation Comments MCHC (test code = MCHC) 32.2 32.0-36.0 [facility] TemplePgimarwQJQWTHVSIL4449-12-26 07:48:00 Test Item Value Reference Range Interpretation Comments MPV (test code = MPV) 9.2 7.4-10.4 [facility] TempleXvjlgkgLPUGPUYZRD2476-37-50 07:48:00 Test Item Value Reference Range Interpretation Comments MCH (test code = MCH) 26.8 pg 27.0-31.0 [facility] TempleKbmwlnlBNTHJFNHCP7267-46-85 07:48:00 Test Item Value Reference Range Interpretation Comments Platelet (test code = Platelet) 279 133-450 [facility] TempleYkbakrcKGVXPLDLTU0638-29-61 07:48:00 Test Item Value Reference Range Interpretation Comments PTT (test code = PTT) 26.5 s 22.9-35.8 [facility] TempleIojcuciYECLQILMIL5862-64-60 07:48:00 Test Item Value Reference Range Interpretation Comments INR (test code = INR) 0.99 0.85-1.17 [facility] TempleDfrixidIFJHDQCYSY3577-46-26 07:48:00 Test Item Value Reference Range Interpretation Comments PT (test code = PT) 13.3 s 12.0-14.7 [facility] TempleEkteznoYBVTHNWFXT0620-07-08 07:48:00 Test Item Value Reference Range Interpretation Comments Monocytes # (test code 0.7 See_Comment [Aut omated message] The = Monocytes #) system which generated this result tra nsmitted reference range : <=0.8. The reference r eric was not used to int erpret this result as normal/abnormal . [facility] TempleVrijipjWRLRHQQGLW7056-17-41 07:48:00 Test Item Value Reference Range Interpretation Comments Lymphocytes # (test code = Lymphocytes 1.9 1.0-5.5 #) [facility] TempleEwgmtvuGQMELARCUO4171 07:48:00 Test Item Value Reference Range Interpretation Comments Basophils # (test code 0.1 See_Comment [Aut omated message] The = Basophils #) system which generated this result tra nsmitted reference range : <=0.2. The reference r eric was not used to int erpret this result as normal/abnormal . [facility] TempleHoqdgroKSONBTQHBN2570-11-88 07:48:00 Test Item Value Reference Range Interpretation Comments Eosinophils # (test code 0.5 See_Comment [A utomated message] The = Eosinophils #) system whic h generated this result tra nsmitted reference range : <=0.5. The reference r eric was not used to int erpret this result as normal/abnormal . [facility] TempleDsscqcbEJAJYPKKQY9696-56-49 07:48:00 Test Item Value Reference Range Interpretation Comments Segs (test code = Segs) 68.0 45.0-75.0 [facility] TemplePgvyqxjOXFQIZPDNS4949-58-42 07:48:00 Test Item Value Reference Range Interpretation Comments Eosinophils (test code = 4.7 See_Comment [A utomated message] The Eosinophils) system which ge nerated this result tra nsmitted reference range : <=4.0. The reference r eric was not used to int erpret this result as normal/abnormal . [facility] TempleUhvwrrhMRIMQBNOXM5717-35-05 07:48:00 Test Item Value Reference Range Interpretation Comments Monocytes (test code = Monocytes) 7.4 2.0-12.0 [facility] TempleJvwsjvdVODDYYFWBX1073-18-13 07:48:00 Test Item Value Reference Range Interpretation Comments Lymphocytes (test code = Lymphocytes) 19.4 20.0-40.0 [facility] TempleOsihhrsNWUMMUANKK1177-59-36 07:48:00 Test Item Value Reference Range Interpretation Comments Segs-Bands # (test code = Segs-Bands #) 6.8 1.5-8.1 [facility] TempleLinkjhmTPQYCJCRHJ9805-88-24 07:48:00 Test Item Value Reference Range Interpretation Comments Basophils (test code = 0.5 See_Comment [Aut omated message] The Basophils) system which ge nerated this result tra nsmitted reference range : <=1.0. The reference r eric was not used to int erpret this result as normal/abnormal . [facility] [employer] LRHUPQL4167-10-93 07:48:00 Test Item Value Reference Range Interpretation Comments Total CK (test code = Total CK) 59 12-191 [facility] [employer]2017-03-29 07:48:00 Test Item Value Reference Range Interpretation Comments Troponin-I (test code no gt See_Comment [Auto mated message] The = Troponin-I) system which g enerated this result transmit thelma reference range : <=0.40. The reference r eric was not used to interpr et this result as zana l/abnormal. [facility] [employer]2017-03-29 07:48:00 Test Item Value Reference Range Interpretation Comments CK MB (test code = CK MB) 1.4 0.5-3.6 [facility] [employer]2017-03-29 07:48:00 Test Item Value Reference Range Interpretation Comments CK MB Index (test 2.4 See_Comment [Automate d message] The code = CK MB Index) system w [facility] generated this result transmit thelma reference range : <=2.5. The reference range was not used to interpr et this result as zana l/abnormal. [facility] [employer]2017-03-29 07:48:00 Test Item Value Reference Range Interpretation Comments eGFR (test code = eGFR) 55 [facility] [employer]2017-03-29 07:48:00 Test Item Value Reference Range Interpretation Comments B/C Ratio (test code = B/C Ratio) 23 6-25 [facility] [employer]2017-03-29 07:48:00 Test Item Value Reference Range Interpretation Comments Globulin (test code = Globulin) 3.5 2.7-4.2 [facility] [employer]2017-03-29 07:48:00 Test Item Value Reference Range Interpretation Comments AGAP (test code = AGAP) 16.2 10.0-20.0 [facility] [employer]2017-03-29 07:48:00 Test Item Value Reference Range Interpretation Comments Creatinine Lvl (test code = Creatinine 1.04 0.50-1.40 Lvl) [facility]2017-03-29 07:48:00 Test Item Value Reference Range Interpretation Comments Sodium Lvl (test code = Sodium Lvl) 139 135-145 [facility]2017-03-29 07:48:00 Test Item Value Reference Range Interpretation Comments BUN (test code = BUN) 24 7-22 [facility]2017-03-29 07:48:00 Test Item Value Reference Range Interpretation Comments Glucose Lvl (test code = Glucose Lvl) 153 70-99 [facility]2017-03-29 07:48:00 Test Item Value Reference Range Interpretation Comments A/G Ratio (test code = A/G Ratio) 1.1 0.7-1.6 [facility]2017-03-29 07:48:00 Test Item Value Reference Range Interpretation Comments Calcium Lvl (test code = Calcium Lvl) 9.6 8.5-10.5 [facility]2017-03-29 07:48:00 Test Item Value Reference Range Interpretation Comments Total Protein (test code = Total 7.3 6.4-8.4 Protein) [facility]2017-03-29 07:48:00 Test Item Value Reference Range Interpretation Comments Chloride Lvl (test code = Chloride Lvl) 106 95-109 [facility]2017-03-29 07:48:00 Test Item Value Reference Range Interpretation Comments CO2 (test code = CO2) 22 24-32 [facility]2017-03-29 07:48:00 Test Item Value Reference Range Interpretation Comments Potassium Lvl (test code = Potassium 5.2 3.5-5.1 Lvl) [facility]2017-03-29 07:48:00 Test Item Value Reference Range Interpretation Comments Bili Total (test code = Bili Total) 0.1 0.2-1.3 [facility]2017-03-29 07:48:00 Test Item Value Reference Range Interpretation Comments AST (test code = AST) 12 See_Comment [Auto mated message] The system which ge nerated this result transmit thelma reference range : <=37. The reference range was not used to interpr et this result as zana l/abnormal. [facility]2017-03-29 07:48:00 Test Item Value Reference Range Interpretation Comments Alk Phos (test code = Alk Phos) 58 39-136 [facility]2017-03-29 07:48:00 Test Item Value Reference Range Interpretation Comments ALT (test code = ALT) 15 See_Comment [Auto mated message] The system which ge nerated this result transmit thelma reference range : <=65. The reference range was not used to interpr et this result as zana l/abnormal. [facility]2017-03-29 07:48:00 Test Item Value Reference Range Interpretation Comments Albumin Lvl (test code = Albumin Lvl) 3.8 3.5-5.0 [facility] TempleFvwktoiMYFRQRJEZL7855-68-71 07:48:00 Test Item Value Reference Range Interpretation Comments WBC (test code = WBC) 10.0 3.7-10.4 [facility] TempleNygoepdUDECRTYBVV1076-44-91 07:48:00 Test Item Value Reference Range Interpretation Comments MCV (test code = MCV) 83.2 80.0-98.0 [facility] TempleHxamaizNNQSEJUZRQ7937-68-53 07:48:00 Test Item Value Reference Range Interpretation Comments Hct (test code = Hct) 38.1 36.0-48.0 [facility] TempleDfdnjuzVVJBBGLYCA4124-22-71 07:48:00 Test Item Value Reference Range Interpretation Comments Hgb (test code = Hgb) 12.3 12.0-16.0 [facility] TempleDjithzwACOJPCNVUF1904-22-15 07:48:00 Test Item Value Reference Range Interpretation Comments RBC (test code = RBC) 4.57 4.20-5.40 [facility] TempleWiaulppMRMNJCBYIQ2985-25-64 07:48:00 Test Item Value Reference Range Interpretation Comments RDW (test code = RDW) 14.1 11.5-14.5 [facility] TempleCwnlislUOXABGPOBW0457-93-60 07:48:00 Test Item Value Reference Range Interpretation Comments MCHC (test code = MCHC) 32.2 32.0-36.0 [facility] TempleWhiehclURDQVXZAME4189-49-35 07:48:00 Test Item Value Reference Range Interpretation Comments MPV (test code = MPV) 9.2 7.4-10.4 [facility] TempleQfotpuwKKLISBBJYP7494-29-79 07:48:00 Test Item Value Reference Range Interpretation Comments MCH (test code = MCH) 26.8 pg 27.0-31.0 [place] 194557-03-29 07:48:00 Test Item Value Reference Range Interpretation Comments Platelet (test code = Platelet) 279 133-450 [facility] TempleBkadeznXUSWQZBXMC6336-97-09 07:48:00 Test Item Value Reference Range Interpretation Comments PTT (test code = PTT) 26.5 s 22.9-35.8 [facility] TempleVwdvpmtLAGMXPUPPJ6173-74-47 07:48:00 Test Item Value Reference Range Interpretation Comments INR (test code = INR) 0.99 0.85-1.17 [place] 194557-03-29 07:48:00 Test Item Value Reference Range Interpretation Comments PT (test code = PT) 13.3 s 12.0-14.7 [facility] TempleGbhpqilGAQYKYPIHW9675-89-32 07:48:00 Test Item Value Reference Range Interpretation Comments Monocytes # (test code 0.7 See_Comment [Aut omated message] The = Monocytes #) system which generated this result tra nsmitted reference range : <=0.8. The reference r eric was not used to int erpret this result as normal/abnormal . [facility] TempleOlzfdkmWYCRFXYKFX6215-04-95 07:48:00 Test Item Value Reference Range Interpretation Comments Lymphocytes # (test code = Lymphocytes 1.9 1.0-5.5 #) [facility] TempleGskvzkxZNKUULFDJO2531-03-45 07:48:00 Test Item Value Reference Range Interpretation Comments Basophils # (test code 0.1 See_Comment [Aut omated message] The = Basophils #) system which generated this result tra nsmitted reference range : <=0.2. The reference r eric was not used to int erpret this result as normal/abnormal . [facility] TempleSuzovslBSBYCZCXUP7524-49-54 07:48:00 Test Item Value Reference Range Interpretation Comments Eosinophils # (test code 0.5 See_Comment [A utomated message] The = Eosinophils #) system whic h generated this result tra nsmitted reference range : <=0.5. The reference r eric was not used to int erpret this result as normal/abnormal . [facility] TempleJdgkvdwXDVIVBRQVU0237-16-82 07:48:00 Test Item Value Reference Range Interpretation Comments Segs (test code = Segs) 68.0 45.0-75.0 [facility] TempleVxoxghoFSRSFPNQOI8721-31-30 07:48:00 Test Item Value Reference Range Interpretation Comments Eosinophils (test code = 4.7 See_Comment [A utomated message] The Eosinophils) system which ge nerated this result tra nsmitted reference range : <=4.0. The reference r eric was not used to int erpret this result as normal/abnormal . [facility] CenterEtgmmunZHOCWDVNLN3259-68-89 07:48:00 Test Item Value Reference Range Interpretation Comments Monocytes (test code = Monocytes) 7.4 2.0-12.[address] [facility]ILTGIACH2041-55-95 07:48:00 Test Item Value Reference Range Interpretation Comments Lymphocytes (test code = Lymphocytes) 19.4 20.0-40.0 [facility] CenterXvmkvirVECWHKQKHZ7652-06-04 07:48:00 Test Item Value Reference Range Interpretation Comments Segs-Bands # (test code = Segs-Bands #) 6.8 1.5-8.[address] [facility]RzyhfzgTGPQUADKJG0548-30-54 07:48:00 Test Item Value Reference Range Interpretation Comments Basophils (test code = 0.5 See_Comment [Aut omated message] The Basophils) system which ge nerated this result tra nsmitted reference range : <=1.0. The reference r eric was not used to int erpret this result as normal/abnormal . [facility] CenterValerion Therapeutics2017-03-29 07:48:00 Test Item Value Reference Range Interpretation Comments Total CK (test code = Total CK) 59 12-[address] [facility] HospitalAttensaGGLXMGE4882-01-83 07:48:00 Test Item Value Reference Range Interpretation Comments Troponin-I (test code no gt See_Comment [Auto mated message] The = Troponin-I) system which g enerated this result transmit thelma reference range : <=0.40. The reference r eric was not used to interpr et this result as zana l/abnormal. [facility] [employer] FZVBDIH4724-49-45 07:48:00 Test Item Value Reference Range Interpretation Comments CK MB (test code = CK MB) 1.4 0.5-3.6 [facility] CenterOphis [facility] WPVIIWP0616-29-10 07:48:00 Test Item Value Reference Range Interpretation Comments CK MB Index (test 2.4 See_Comment [Automate d message] The code = CK MB Index) system w [facility] generated this result transmit thelma reference range : <=2.5. The reference range was not used to interpr et this result as zana l/abnormal. [facility]2017-03-29 07:48:00 Test Item Value Reference Range Interpretation Comments eGFR (test code = eGFR) 55 [facility]2017-03-29 07:48:00 Test Item Value Reference Range Interpretation Comments B/C Ratio (test code = B/C Ratio) 23 6-25 [facility]2017-03-29 07:48:00 Test Item Value Reference Range Interpretation Comments Globulin (test code = Globulin) 3.5 2.7-4.2 [facility]2017-03-29 07:48:00 Test Item Value Reference Range Interpretation Comments AGAP (test code = AGAP) 16.2 10.0-20.0 [facility]2017-03-29 07:48:00 Test Item Value Reference Range Interpretation Comments Creatinine Lvl (test code = Creatinine 1.04 0.50-1.40 Lvl) [facility]2017-03-29 07:48:00 Test Item Value Reference Range Interpretation Comments Sodium Lvl (test code = Sodium Lvl) 139 135-145 [facility]2017-03-29 07:48:00 Test Item Value Reference Range Interpretation Comments BUN (test code = BUN) 24 7- [facility]2017-03-29 07:48:00 Test Item Value Reference Range Interpretation Comments Glucose Lvl (test code = Glucose Lvl) 153 70-99 [facility]2017-03-29 07:48:00 Test Item Value Reference Range Interpretation Comments A/G Ratio (test code = A/G Ratio) 1.1 0.7-1.6 [facility]2017-03-29 07:48:00 Test Item Value Reference Range Interpretation Comments Calcium Lvl (test code = Calcium Lvl) 9.6 8.5-10.5 [facility]2017-03-29 07:48:00 Test Item Value Reference Range Interpretation Comments Total Protein (test code = Total 7.3 6.4-8.4 Protein) [facility]2017-03-29 07:48:00 Test Item Value Reference Range Interpretation Comments Chloride Lvl (test code = Chloride Lvl) 106 95-109 [facility]2017-03-29 07:48:00 Test Item Value Reference Range Interpretation Comments CO2 (test code = CO2) 22 24-32 [facility]2017-03-29 07:48:00 Test Item Value Reference Range Interpretation Comments Potassium Lvl (test code = Potassium 5.2 3.5-5.1 Lvl) [facility]2017-03-29 07:48:00 Test Item Value Reference Range Interpretation Comments Bili Total (test code = Bili Total) 0.1 0.2-1.3 [place] [address]-03-29 07:48:00 Test Item Value Reference Range Interpretation Comments AST (test code = AST) 12 See_Comment [Auto mated message] The system which ge nerated this result transmit thelma reference range : <=37. The reference range was not used to interpr et this result as zana l/abnormal. [facility]2017-03-29 07:48:00 Test Item Value Reference Range Interpretation Comments Alk Phos (test code = Alk Phos) 58 39-136 [facility]2017-03-29 07:48:00 Test Item Value Reference Range Interpretation Comments ALT (test code = ALT) 15 See_Comment [Auto mated message] The system which ge nerated this result transmit thelma reference range : <=65. The reference range was not used to interpr et this result as zana l/abnormal. [facility]2017-03-29 07:48:00 Test Item Value Reference Range Interpretation Comments Albumin Lvl (test code = Albumin Lvl) 3.8 3.5-5.0 [facility] TempleTdfkddkEDHOEEHRXE1259-51-94 07:48:00 Test Item Value Reference Range Interpretation Comments WBC (test code = WBC) 10.0 3.7-10.4 [facility] TempleCbbflgoMNWYKOBDMG1711-32-13 07:48:00 Test Item Value Reference Range Interpretation Comments MCV (test code = MCV) 83.2 80.0-98.0 [place] [address]-03-29 07:48:00 Test Item Value Reference Range Interpretation Comments Hct (test code = Hct) 38.1 36.0-48.0 [place] 194557-03-29 07:48:00 Test Item Value Reference Range Interpretation Comments Hgb (test code = Hgb) 12.3 12.0-16.0 [facility] TempleNepczsiEHVKSSZYDL8597-89-44 07:48:00 Test Item Value Reference Range Interpretation Comments RBC (test code = RBC) 4.57 4.20-5.40 [facility] TempleXgttqvgCBXRXUTVZA5933-66-32 07:48:00 Test Item Value Reference Range Interpretation Comments RDW (test code = RDW) 14.1 11.5-14.5 [facility] TempleKgrrvxaREVNMGOAIE6364-63-38 07:48:00 Test Item Value Reference Range Interpretation Comments MCHC (test code = MCHC) 32.2 32.0-36.0 [facility] TemplePenujoqUWAJEKPFNH4009-70-46 07:48:00 Test Item Value Reference Range Interpretation Comments MPV (test code = MPV) 9.2 7.4-10.4 [facility] TempleCupucbxTJUCHSXARW3940-39-41 07:48:00 Test Item Value Reference Range Interpretation Comments MCH (test code = MCH) 26.8 pg 27.0-31.0 [facility] TempleAntqipoZLAACHCTZO5920-37-56 07:48:00 Test Item Value Reference Range Interpretation Comments Platelet (test code = Platelet) 279 133-450 [facility] TempleNtnjnxbIOXDDKUFXU0294-91-90 07:48:00 Test Item Value Reference Range Interpretation Comments PTT (test code = PTT) 26.5 s 22.9-35.8 [facility] TempleHkcvzosJPFCNOZMFW6587-94-91 07:48:00 Test Item Value Reference Range Interpretation Comments INR (test code = INR) 0.99 0.85-1.17 [facility] TempleZhiylqwHHBDEFXFDG6748-33-66 07:48:00 Test Item Value Reference Range Interpretation Comments PT (test code = PT) 13.3 s 12.0-14.7 [facility] TempleAyeaijgXADBJBJYAW0863-99-74 07:48:00 Test Item Value Reference Range Interpretation Comments Monocytes # (test code 0.7 See_Comment [Aut omated message] The = Monocytes #) system which generated this result tra nsmitted reference range : <=0.8. The reference r eric was not used to int erpret this result as normal/abnormal . [facility] TempleOizzpxeVJZWSWNWTA1567-92-74 07:48:00 Test Item Value Reference Range Interpretation Comments Lymphocytes # (test code = Lymphocytes 1.9 1.0-5.5 #) [facility] TempleIqbsicmQPNKPPIIXH8981-46-55 07:48:00 Test Item Value Reference Range Interpretation Comments Basophils # (test code 0.1 See_Comment [Aut omated message] The = Basophils #) system which generated this result tra nsmitted reference range : <=0.2. The reference r eric was not used to int erpret this result as normal/abnormal . [facility] TempleVoffdpfWOBNTOTBHC3231-83-15 07:48:00 Test Item Value Reference Range Interpretation Comments Eosinophils # (test code 0.5 See_Comment [A utomated message] The = Eosinophils #) system whic h generated this result tra nsmitted reference range : <=0.5. The reference r eric was not used to int erpret this result as normal/abnormal . [facility] TempleKsleljrXQYXWANKTM9831-34-33 07:48:00 Test Item Value Reference Range Interpretation Comments Segs (test code = Segs) 68.0 45.0-75.0 [facility] TempleQecbdroTNDLJJUEMX6598-96-79 07:48:00 Test Item Value Reference Range Interpretation Comments Eosinophils (test code = 4.7 See_Comment [A utomated message] The Eosinophils) system which ge nerated this result tra nsmitted reference range : <=4.0. The reference r eric was not used to int erpret this result as normal/abnormal . [facility] TemplePdgwgrkCAFAWIOPCG1555-69-38 07:48:00 Test Item Value Reference Range Interpretation Comments Monocytes (test code = Monocytes) 7.4 2.0-12.0 [facility] TempleCgsntrbZRAWCSBUCA9282-05-78 07:48:00 Test Item Value Reference Range Interpretation Comments Lymphocytes (test code = Lymphocytes) 19.4 20.0-40.0 [facility] TempleYlksllqNYPSOGRCLZ2570-82-42 07:48:00 Test Item Value Reference Range Interpretation Comments Segs-Bands # (test code = Segs-Bands #) 6.8 1.5-8.1 [facility] TempleFlanoebVQVWULRLKV1716-38-37 07:48:00 Test Item Value Reference Range Interpretation Comments Basophils (test code = 0.5 See_Comment [Aut omated message] The Basophils) system which ge nerated this result tra nsmitted reference range : <=1.0. The reference r eric was not used to int erpret this result as normal/abnormal . [employer]2015-09-26 08:34:00 Test Item Value Reference Range Interpretation Comments Troponin-I (test code no gt See_Comment [Auto mated message] The = Troponin-I) system which g enerated this result transmit thelma reference range : <=0.40. The reference r eric was not used to interpr et this result as zana l/abnormal. [facility] [employer]2015-09-26 08:34:00 Test Item Value Reference Range Interpretation Comments CK MB (test code = CK MB) 1.9 0.5-3.6 [facility] [employer] [id number] 08:34:00 Test Item Value Reference Range Interpretation Comments Total CK (test code = Total CK) 82 12-191 [facility] [employer] [id number] 08:34:00 Test Item Value Reference Range Interpretation Comments CK MB Index (test 2.3 See_Comment [Automate d message] The code = CK MB Index) system w [facility] generated this result transmit thelma reference range : <=2.5. The reference range was not used to interpr et this result as zana l/abnormal. [facility] [employer]2015-09-26 08:34:00 Test Item Value Reference Range Interpretation Comments Ammonia (test code = Ammonia) 13.0 [facility] [employer]2015-09-26 08:34:00 Test Item Value Reference Range Interpretation Comments eGFR (test code = eGFR) 65 [facility] [employer]2015-09-26 08:34:00 Test Item Value Reference Range Interpretation Comments ALT (test code = ALT) 20 See_Comment [Auto mated message] The system which ge nerated this result transmit thelma reference range : <=65. The reference range was not used to interpr et this result as zana l/abnormal. [facility]2015-09-26 08:34:00 Test Item Value Reference Range Interpretation Comments AST (test code = AST) 13 See_Comment [Auto mated message] The system which ge nerated this result transmit thelma reference range : <=37. The reference range was not used to interpr et this result as zana l/abnormal. [facility]2015-09-26 08:34:00 Test Item Value Reference Range Interpretation Comments Bili Total (test code = Bili Total) 0.6 0.2-1.3 [facility]2015-09-26 08:34:00 Test Item Value Reference Range Interpretation Comments AGAP (test code = AGAP) 10.9 10.0-20.0 [facility]2015-09-26 08:34:00 Test Item Value Reference Range Interpretation Comments Alk Phos (test code = Alk Phos) 47 39-136 [facility]2015-09-26 08:34:00 Test Item Value Reference Range Interpretation Comments A/G Ratio (test code = A/G Ratio) 1.2 0.7-1.6 [facility]2015-09-26 08:34:00 Test Item Value Reference Range Interpretation Comments Globulin (test code = Globulin) 3.4 2.0-4.0 [facility]2015-09-26 08:34:00 Test Item Value Reference Range Interpretation Comments B/C Ratio (test code = B/C Ratio) 22 6-25 [facility]2015-09-26 08:34:00 Test Item Value Reference Range Interpretation Comments Potassium Lvl (test code = Potassium 3.9 3.5-5.1 Lvl) [facility]2015-09-26 08:34:00 Test Item Value Reference Range Interpretation Comments CO2 (test code = CO2) 28 24-32 [facility]2015-09-26 08:34:00 Test Item Value Reference Range Interpretation Comments Chloride Lvl (test code = Chloride Lvl) 101 95-109 [facility]2015-09-26 08:34:00 Test Item Value Reference Range Interpretation Comments Calcium Lvl (test code = Calcium Lvl) 9.1 8.5-10.5 [facility]2015-09-26 08:34:00 Test Item Value Reference Range Interpretation Comments Total Protein (test code = Total 7.4 6.4-8.4 Protein) [facility]2015-09-26 08:34:00 Test Item Value Reference Range Interpretation Comments Albumin Lvl (test code = Albumin Lvl) 4.0 3.5-5.0 [facility]2015-09-26 08:34:00 Test Item Value Reference Range Interpretation Comments Glucose Lvl (test code = Glucose Lvl) 150 70-99 [facility]2015-09-26 08:34:00 Test Item Value Reference Range Interpretation Comments BUN (test code = BUN) 20 7-22 [facility]2015-09-26 08:34:00 Test Item Value Reference Range Interpretation Comments Creatinine Lvl (test code = Creatinine 0.9 0.5-1.4 Lvl) [facility]2015-09-26 08:34:00 Test Item Value Reference Range Interpretation Comments Sodium Lvl (test code = Sodium Lvl) 136 135-145 [facility]2015-09-26 08:34:00 Test Item Value Reference Range Interpretation Comments Magnesium Lvl (test code = Magnesium 1.8 1.8-2.4 Lvl) [facility] TempleKnlxfmoRMMGSEYTBE6342-57-10 08:34:00 Test Item Value Reference Range Interpretation Comments PTT (test code = PTT) 26.7 s 22.9-35.8 [facility] TempleVwgobxcIFVMMFGOAB1924-08-93 08:34:00 Test Item Value Reference Range Interpretation Comments PT (test code = PT) 12.8 s 12.0-14.7 [facility] TempleZgsfsxwERFHEOHBEK6491-55-52 08:34:00 Test Item Value Reference Range Interpretation Comments INR (test code = INR) 0.93 0.85-1.17 [facility] TempleDyqhxfdRFYSWFXYZT4176-46-80 08:34:00 Test Item Value Reference Range Interpretation Comments Platelet (test code = Platelet) 281 133-450 [facility] TempleXqhkycxIMCPWKXIYI7021-42-46 08:34:00 Test Item Value Reference Range Interpretation Comments MPV (test code = MPV) 9.5 7.4-10.4 [facility] TempleZnaedzaTQUWXDVYWT9893-58-58 08:34:00 Test Item Value Reference Range Interpretation Comments RDW (test code = RDW) 14.8 11.5-14.5 [facility] TempleWadbxfuCRKZPNPQZU0971-65-62 08:34:00 Test Item Value Reference Range Interpretation Comments MCHC (test code = MCHC) 32.5 32.0-36.0 [facility] TempleWttccugWXPRJXEEHS5189-47-29 08:34:00 Test Item Value Reference Range Interpretation Comments RBC (test code = RBC) 5.21 4.20-5.40 [facility] TempleRzphcpfYCXSQBXPXB7746-15-72 08:34:00 Test Item Value Reference Range Interpretation Comments Hgb (test code = Hgb) 13.7 12.0-16.0 [facility] TempleCcvzizdIHFUIBDUSH2409-00-05 08:34:00 Test Item Value Reference Range Interpretation Comments WBC (test code = WBC) 10.6 3.7-10.4 [facility] TempleWxlleebGIIGPJGAVO5082-82-54 08:34:00 Test Item Value Reference Range Interpretation Comments Hct (test code = Hct) 42.2 36.0-48.0 [facility] TempleAkazlhrXUKJAQAVLA7606-83-89 08:34:00 Test Item Value Reference Range Interpretation Comments MCV (test code = MCV) 81.0 80.0-98.0 [facility] TempleLhceahfLVNBZXAXOQ3042-85-31 08:34:00 Test Item Value Reference Range Interpretation Comments MCH (test code = MCH) 26.3 pg 27.0-31.0 [facility] TempleNulzgslEESUVZYAAZ1197-74-23 08:34:00 Test Item Value Reference Range Interpretation Comments Basophils # (test code 0.1 See_Comment [Aut omated message] The = Basophils #) system which generated this result tra nsmitted reference range : <=0.2. The reference r eric was not used to int erpret this result as normal/abnormal . [facility] TempleWrqnimeZYZPJAAUKL7480-66-73 08:34:00 Test Item Value Reference Range Interpretation Comments Segs (test code = Segs) 65.9 45.0-75.0 [facility] TempleRjsosygFUJWGNPZXH3226-81-87 08:34:00 Test Item Value Reference Range Interpretation Comments Lymphocytes (test code = Lymphocytes) 26.0 20.0-40.0 [facility] TempleEzgtlkdMGLHTCXLBP9695-02-27 08:34:00 Test Item Value Reference Range Interpretation Comments Eosinophils (test code = 1.4 See_Comment [A utomated message] The Eosinophils) system which ge nerated this result tra nsmitted reference range : <=4.0. The reference r eric was not used to int erpret this result as normal/abnormal . [facility] TempleIyecmrxLWEDHNGRFY3262-80-91 08:34:00 Test Item Value Reference Range Interpretation Comments Monocytes (test code = Monocytes) 6.1 2.0-12.0 [facility] TempleBzeyjemLBUEYYGYGC1866-57-58 08:34:00 Test Item Value Reference Range Interpretation Comments Basophils (test code = 0.6 See_Comment [Aut omated message] The Basophils) system which ge nerated this result tra nsmitted reference range : <=1.0. The reference r eric was not used to int erpret this result as normal/abnormal . [facility] CenterIdpqipzWHGBBICTKW9774-09-57 08:34:00 Test Item Value Reference Range Interpretation Comments Eosinophils # (test code 0.2 See_Comment [A utomated message] The = Eosinophils #) system whic h generated this result tra nsmitted reference range : <=0.5. The reference r eric was not used to int erpret this result as normal/abnormal . [facility] CenterGahwkspDTDWFTPTLL0223-72-29 08:34:00 Test Item Value Reference Range Interpretation Comments Monocytes # (test code 0.7 See_Comment [Aut omated message] The = Monocytes #) system which generated this result tra nsmitted reference range : <=0.8. The reference r eric was not used to int erpret this result as normal/abnormal . [facility] CenterUlhncxeXGMBZNVDJL4219-37-25 08:34:00 Test Item Value Reference Range Interpretation Comments Lymphocytes # (test code = Lymphocytes 2.8 1.0-5.5 #) [facility] CenterTcyzwcqQYWZEWHZNW4833-77-84 08:34:00 Test Item Value Reference Range Interpretation Comments Segs-Bands # (test code = Segs-Bands #) 7.0 1.5-8.1 [facility] CenterOphis V[employer] [id number] 08:34:00 Test Item Value Reference Range Interpretation Comments Troponin-I (test code no gt See_Comment [Auto mated message] The = Troponin-I) system which g enerated this result transmit thelma reference range : <=0.40. The reference r eric was not used to interpr et this result as zana l/abnormal. [facility] CenterCirrus WorksCARTargetingMantraAC [id number] 08:34:00 Test Item Value Reference Range Interpretation Comments CK MB (test code = CK MB) 1.9 0.5-3.6 [facility] CenterOfferLoungeAC [id number] 08:34:00 Test Item Value Reference Range Interpretation Comments Total CK (test code = Total CK) 82 12-191 [facility] [employer]ART[employer]ingMant[employer]AC FPCPVLY4612-53-42 08:34:00 Test Item Value Reference Range Interpretation Comments CK MB Index (test 2.3 See_Comment [Automate d message] The code = CK MB Index) system w [facility] generated this result transmit thelma reference range : <=2.5. The reference range was not used to interpr et this result as zana l/abnormal. [facility]2015-09-26 08:34:00 Test Item Value Reference Range Interpretation Comments Ammonia (test code = Ammonia) 13.0 [facility]2015-09-26 08:34:00 Test Item Value Reference Range Interpretation Comments eGFR (test code = eGFR) 65 [facility]2015-09-26 08:34:00 Test Item Value Reference Range Interpretation Comments ALT (test code = ALT) 20 See_Comment [Auto mated message] The system which ge nerated this result transmit thelma reference range : <=65. The reference range was not used to interpr et this result as zana l/abnormal. [facility]2015-09-26 08:34:00 Test Item Value Reference Range Interpretation Comments AST (test code = AST) 13 See_Comment [Auto mated message] The system which ge nerated this result transmit thelma reference range : <=37. The reference range was not used to interpr et this result as zana l/abnormal. [facility]2015-09-26 08:34:00 Test Item Value Reference Range Interpretation Comments Bili Total (test code = Bili Total) 0.6 0.2-1.3 [facility]2015-09-26 08:34:00 Test Item Value Reference Range Interpretation Comments AGAP (test code = AGAP) 10.9 10.0-20.0 [place] 902385-09-26 08:34:00 Test Item Value Reference Range Interpretation Comments Alk Phos (test code = Alk Phos) 47 39-136 [facility]2015-09-26 08:34:00 Test Item Value Reference Range Interpretation Comments A/G Ratio (test code = A/G Ratio) 1.2 0.7-1.6 [facility]2015-09-26 08:34:00 Test Item Value Reference Range Interpretation Comments Globulin (test code = Globulin) 3.4 2.0-4.0 [facility]2015-09-26 08:34:00 Test Item Value Reference Range Interpretation Comments B/C Ratio (test code = B/C Ratio) 22 6-25 [facility]2015-09-26 08:34:00 Test Item Value Reference Range Interpretation Comments Potassium Lvl (test code = Potassium 3.9 3.5-5.1 Lvl) [facility]2015-09-26 08:34:00 Test Item Value Reference Range Interpretation Comments CO2 (test code = CO2) 28 24-32 [facility]2015-09-26 08:34:00 Test Item Value Reference Range Interpretation Comments Chloride Lvl (test code = Chloride Lvl) 101 95-109 [facility]2015-09-26 08:34:00 Test Item Value Reference Range Interpretation Comments Calcium Lvl (test code = Calcium Lvl) 9.1 8.5-10.5 [facility]2015-09-26 08:34:00 Test Item Value Reference Range Interpretation Comments Total Protein (test code = Total 7.4 6.4-8.4 Protein) [facility]2015-09-26 08:34:00 Test Item Value Reference Range Interpretation Comments Albumin Lvl (test code = Albumin Lvl) 4.0 3.5-5.0 [facility]2015-09-26 08:34:00 Test Item Value Reference Range Interpretation Comments Glucose Lvl (test code = Glucose Lvl) 150 70-99 [facility]2015-09-26 08:34:00 Test Item Value Reference Range Interpretation Comments BUN (test code = BUN) 20 7-22 [facility]2015-09-26 08:34:00 Test Item Value Reference Range Interpretation Comments Creatinine Lvl (test code = Creatinine 0.9 0.5-1.4 Lvl) [facility]2015-09-26 08:34:00 Test Item Value Reference Range Interpretation Comments Sodium Lvl (test code = Sodium Lvl) 136 135-145 [facility]2015-09-26 08:34:00 Test Item Value Reference Range Interpretation Comments Magnesium Lvl (test code = Magnesium 1.8 1.8-2.4 Lvl) [facility]BIWWA[facility]797[facility] 08:34:00 Test Item Value Reference Range Interpretation Comments PTT (test code = PTT) 26.7 s 22.9-35.8 [facility] TempleHlebhhtYKWIHVKKYX2275-55-13 08:34:00 Test Item Value Reference Range Interpretation Comments PT (test code = PT) 12.8 s 12.0-14.7 [facility] TempleNiqwsqnVISYMFXVRU7868-27-02 08:34:00 Test Item Value Reference Range Interpretation Comments INR (test code = INR) 0.93 0.85-1.17 [facility] TempleDoluvblDWKQRONVOS0860-04-62 08:34:00 Test Item Value Reference Range Interpretation Comments Platelet (test code = Platelet) 281 133-450 [facility] TempleKmildrrQJJTVAXQAI4156-91-42 08:34:00 Test Item Value Reference Range Interpretation Comments MPV (test code = MPV) 9.5 7.4-10.4 [facility] TempleIqadmtyUSPEREXMLR4321-24-75 08:34:00 Test Item Value Reference Range Interpretation Comments RDW (test code = RDW) 14.8 11.5-14.5 [facility] TempleQfzwxfrPIHRNLZJEC2675-25-20 08:34:00 Test Item Value Reference Range Interpretation Comments MCHC (test code = MCHC) 32.5 32.0-36.0 [facility] TemplePpnzqqpSQVHFRGFMU1280-45-58 08:34:00 Test Item Value Reference Range Interpretation Comments RBC (test code = RBC) 5.21 4.20-5.40 [facility] TempleEvnjzvvEZNQVHJCNT3354-73-54 08:34:00 Test Item Value Reference Range Interpretation Comments Hgb (test code = Hgb) 13.7 12.0-16.0 [facility] TempleJxxpcduIRRQHXQYXK7637-43-32 08:34:00 Test Item Value Reference Range Interpretation Comments WBC (test code = WBC) 10.6 3.7-10.4 [facility] TempleAmtasdrPDJCODSIZA3673-28-52 08:34:00 Test Item Value Reference Range Interpretation Comments Hct (test code = Hct) 42.2 36.0-48.0 [facility] TempleZrofrorQOFVFWSBGK9585-09-84 08:34:00 Test Item Value Reference Range Interpretation Comments MCV (test code = MCV) 81.0 80.0-98.0 [facility] TempleTeslclhPYXKVMQIZA7910-16-70 08:34:00 Test Item Value Reference Range Interpretation Comments MCH (test code = MCH) 26.3 pg 27.0-31.0 [facility] TempleJdwyissOHNZMWKUJC7002-80-50 08:34:00 Test Item Value Reference Range Interpretation Comments Basophils # (test code 0.1 See_Comment [Aut omated message] The = Basophils #) system which generated this result tra nsmitted reference range : <=0.2. The reference r eric was not used to int erpret this result as normal/abnormal . [facility] TempleNcwrgsrSLLOCPSHIW1571-33-19 08:34:00 Test Item Value Reference Range Interpretation Comments Segs (test code = Segs) 65.9 45.0-75.0 [facility] TemplePdwqpxxQLYSJZWNYW7887-36-53 08:34:00 Test Item Value Reference Range Interpretation Comments Lymphocytes (test code = Lymphocytes) 26.0 20.0-40.0 [facility] TempleTdmqjooIFVOSQONCY5964-95-92 08:34:00 Test Item Value Reference Range Interpretation Comments Eosinophils (test code = 1.4 See_Comment [A utomated message] The Eosinophils) system which ge nerated this result tra nsmitted reference range : <=4.0. The reference r eric was not used to int erpret this result as normal/abnormal . [facility] TempleQqeainoPXSHPPOOLB2687-78-91 08:34:00 Test Item Value Reference Range Interpretation Comments Monocytes (test code = Monocytes) 6.1 2.0-12.0 [facility] TempleOttzdivOVKWLKMWIE3299-51-60 08:34:00 Test Item Value Reference Range Interpretation Comments Basophils (test code = 0.6 See_Comment [Aut omated message] The Basophils) system which ge nerated this result tra nsmitted reference range : <=1.0. The reference r eric was not used to int erpret this result as normal/abnormal . [facility] TempleCplnxvxAKSHHNWGVL7433-57-00 08:34:00 Test Item Value Reference Range Interpretation Comments Eosinophils # (test code 0.2 See_Comment [A utomated message] The = Eosinophils #) system whic h generated this result tra nsmitted reference range : <=0.5. The reference r eric was not used to int erpret this result as normal/abnormal . [facility] TempleHfjbhppVGFFOTGPYT0779-97-53 08:34:00 Test Item Value Reference Range Interpretation Comments Monocytes # (test code 0.7 See_Comment [Aut omated message] The = Monocytes #) system which generated this result tra nsmitted reference range : <=0.8. The reference r eric was not used to int erpret this result as normal/abnormal . [facility] CenterQbcpgqzMZMMLTXZGW8257-43-88 08:34:00 Test Item Value Reference Range Interpretation Comments Lymphocytes # (test code = Lymphocytes 2.8 1.0-5.5 #) [facility]SxsmyutNAHHBTCLMM5852-36-48 08:34:00 Test Item Value Reference Range Interpretation Comments Segs-Bands # (test code = Segs-Bands #) 7.0 1.5-8.1 [facility] CenterCirrus WorksCARComprimato [id number] 08:34:00 Test Item Value Reference Range Interpretation Comments Troponin-I (test code no gt See_Comment [Auto mated message] The = Troponin-I) system which g enerated this result transmit thelma reference range : <=0.40. The reference r eric was not used to interpr et this result as zana l/abnormal. [facility] CenterValerion Therapeutics2015-09-26 08:34:00 Test Item Value Reference Range Interpretation Comments CK MB (test code = CK MB) 1.9 0.5-3.[address] [facility] HospitalMedlioAC [id number] 08:34:00 Test Item Value Reference Range Interpretation Comments Total CK (test code = Total CK) 82 12-191 [facility] CenterOfferLoungeAC [id number] 08:34:00 Test Item Value Reference Range Interpretation Comments CK MB Index (test 2.3 See_Comment [Automate d message] The code = CK MB Index) system w [facility] generated this result transmit thelma reference range : <=2.5. The reference range was not used to interpr et this result as zana l/abnormal. [facility] [employer] [id number] 08:34:00 Test Item Value Reference Range Interpretation Comments Ammonia (test code = Ammonia) 13.0 [facility] [employer] [id number] 08:34:00 Test Item Value Reference Range Interpretation Comments eGFR (test code = eGFR) 65 [facility] CenterInteract Public Safety PFCZF0744-32-05 08:34:00 Test Item Value Reference Range Interpretation Comments ALT (test code = ALT) 20 See_Comment [Auto mated message] The system which ge nerated this result transmit thelma reference range : <=65. The reference range was not used to interpr et this result as zana l/abnormal. [facility]2015-09-26 08:34:00 Test Item Value Reference Range Interpretation Comments AST (test code = AST) 13 See_Comment [Auto mated message] The system which ge nerated this result transmit thelma reference range : <=37. The reference range was not used to interpr et this result as zana l/abnormal. [facility] [facility] 08:[facility]00 Test Item Value Reference Range Interpretation Comments Bili Total (test code = Bili Total) 0.6 0.2-1.3 [facility]2015-09-26 08:34:00 Test Item Value Reference Range Interpretation Comments AGAP (test code = AGAP) 10.9 10.0-20.0 [facility]2015-09-26 08:34:00 Test Item Value Reference Range Interpretation Comments Alk Phos (test code = Alk Phos) 47 39-136 [facility]2015-09-26 08:34:00 Test Item Value Reference Range Interpretation Comments A/G Ratio (test code = A/G Ratio) 1.2 0.7-1.6 [facility]2015-09-26 08:34:00 Test Item Value Reference Range Interpretation Comments Globulin (test code = Globulin) 3.4 2.0-4.0 [facility]2015-09-26 08:34:00 Test Item Value Reference Range Interpretation Comments B/C Ratio (test code = B/C Ratio) 22 6-25 [facility]2015-09-26 08:34:00 Test Item Value Reference Range Interpretation Comments Potassium Lvl (test code = Potassium 3.9 3.5-5.1 Lvl) [facility]2015-09-26 08:34:00 Test Item Value Reference Range Interpretation Comments CO2 (test code = CO2) 28 24-32 [facility]2015-09-26 08:34:00 Test Item Value Reference Range Interpretation Comments Chloride Lvl (test code = Chloride Lvl) 101 95-109 [facility]2015-09-26 08:34:00 Test Item Value Reference Range Interpretation Comments Calcium Lvl (test code = Calcium Lvl) 9.1 8.5-10.5 [facility]2015-09-26 08:34:00 Test Item Value Reference Range Interpretation Comments Total Protein (test code = Total 7.4 6.4-8.4 Protein) [facility]2015-09-26 08:34:00 Test Item Value Reference Range Interpretation Comments Albumin Lvl (test code = Albumin Lvl) 4.0 3.5-5.0 [place] 902385-09-26 08:34:00 Test Item Value Reference Range Interpretation Comments Glucose Lvl (test code = Glucose Lvl) 150 70-99 [place] 902385-09-26 08:34:00 Test Item Value Reference Range Interpretation Comments BUN (test code = BUN) 20 7-22 [place] 902385-09-26 08:34:00 Test Item Value Reference Range Interpretation Comments Creatinine Lvl (test code = Creatinine 0.9 0.5-1.4 Lvl) [place] 902385-09-26 08:34:00 Test Item Value Reference Range Interpretation Comments Sodium Lvl (test code = Sodium Lvl) 136 135-145 [place] 902385-09-26 08:34:00 Test Item Value Reference Range Interpretation Comments Magnesium Lvl (test code = Magnesium 1.8 1.8-2.4 Lvl) [facility] TempleUmolxmiHZDHMJKHRL9554-08-55 08:34:00 Test Item Value Reference Range Interpretation Comments PTT (test code = PTT) 26.7 s 22.9-35.8 [place] 194555-09-26 08:34:00 Test Item Value Reference Range Interpretation Comments PT (test code = PT) 12.8 s 12.0-14.7 [place] 194555-09-26 08:34:00 Test Item Value Reference Range Interpretation Comments INR (test code = INR) 0.93 0.85-1.17 [place] 194555-09-26 08:34:00 Test Item Value Reference Range Interpretation Comments Platelet (test code = Platelet) 281 659-450 [facility] Temp[id number] 08:34:00 Test Item Value Reference Range Interpretation Comments MPV (test code = MPV) 9.5 7.4-10.4 [place] 194555-09-26 08:34:00 Test Item Value Reference Range Interpretation Comments RDW (test code = RDW) 14.8 11.5-14.5 [facility] [id number] 08:34:00 Test Item Value Reference Range Interpretation Comments MCHC (test code = MCHC) 32.5 32.0-36.0 [facility] TempleXrgfiwsJEYTKQMEUE9153-16-24 08:34:00 Test Item Value Reference Range Interpretation Comments RBC (test code = RBC) 5.21 4.20-5.40 [facility] TempleJhphjyrOYGFOLREAC1018-47-10 08:34:00 Test Item Value Reference Range Interpretation Comments Hgb (test code = Hgb) 13.7 12.0-16.0 [facility] TempleJeikxonNEAJGKQVIF0963-47-80 08:34:00 Test Item Value Reference Range Interpretation Comments WBC (test code = WBC) 10.6 3.7-10.4 [facility] TempleOdvwqnyMSLQJEEYUM2991-06-24 08:34:00 Test Item Value Reference Range Interpretation Comments Hct (test code = Hct) 42.2 36.0-48.0 [facility] TempleZjdtbnwVCASJPVPHI7948-77-90 08:34:00 Test Item Value Reference Range Interpretation Comments MCV (test code = MCV) 81.0 80.0-98.0 [facility] TempleStwqojzKCXREJZWKI8146-30-33 08:34:00 Test Item Value Reference Range Interpretation Comments MCH (test code = MCH) 26.3 pg 27.0-31.0 [facility] TemplePhxsoktHMEBPPWSYT1034-71-64 08:34:00 Test Item Value Reference Range Interpretation Comments Basophils # (test code 0.1 See_Comment [Aut omated message] The = Basophils #) system which generated this result tra nsmitted reference range : <=0.2. The reference r eric was not used to int erpret this result as normal/abnormal . [facility] TempleCbbcwldRELZTZKRQH0185-54-44 08:34:00 Test Item Value Reference Range Interpretation Comments Segs (test code = Segs) 65.9 45.0-75.0 [facility] TempleQvgvnrpDFSGNILKCI4681-64-85 08:34:00 Test Item Value Reference Range Interpretation Comments Lymphocytes (test code = Lymphocytes) 26.0 20.0-40.0 [facility] TempleRfwacgcPHEBGJDVGP1072-87-47 08:34:00 Test Item Value Reference Range Interpretation Comments Eosinophils (test code = 1.4 See_Comment [A utomated message] The Eosinophils) system which ge nerated this result tra nsmitted reference range : <=4.0. The reference r eric was not used to int erpret this result as normal/abnormal . [facility] TempleHuqnehfKDIBNDXGRK0489-61-24 08:34:00 Test Item Value Reference Range Interpretation Comments Monocytes (test code = Monocytes) 6.1 2.0-12.0 [facility] [id number] 08:34:00 Test Item Value Reference Range Interpretation Comments Basophils (test code = 0.6 See_Comment [Aut omated message] The Basophils) system which ge nerated this result tra nsmitted reference range : <=1.0. The reference r eric was not used to int erpret this result as normal/abnormal . [facility] TempleUdsiztqWMEGHTEYQK7747-47-35 08:34:00 Test Item Value Reference Range Interpretation Comments Eosinophils # (test code 0.2 See_Comment [A utomated message] The = Eosinophils #) system [facility] h generated this result tra nsmitted reference range : <=0.5. The reference r eric was not used to int erpret this result as normal/abnormal . [facility] TempleStzezzbZKWDXKJDDX1694-12-67 08:34:00 Test Item Value Reference Range Interpretation Comments Monocytes # (test code 0.7 See_Comment [Aut omated message] The = Monocytes #) system which generated this result tra nsmitted reference range : <=0.8. The reference r eric was not used to int erpret this result as normal/abnormal . [facility] TempleJivazfbUTXXOHPXCX8669-10-60 08:34:00 Test Item Value Reference Range Interpretation Comments Lymphocytes # (test code = Lymphocytes 2.8 1.0-5.5 #) [facility] TempleSgwntnaVDJTKTRVZN2138-97-81 08:34:00 Test Item Value Reference Range Interpretation Comments Segs-Bands # (test code = Segs-Bands #) 7.0 1.5-8.1 [facility] AND [id number] 04:51:00 Test Item Value Reference Range Interpretation Comments UA Hyal Cast (test 1 See_Comment [Automat ed message] The code = UA Hyal Cast) system which generated this result transmit thelma reference range : <=2. The reference range was not used to interpr et this result as zana l/abnormal. [facility] [id number] 04:51:00 Test Item Value Reference Range Interpretation Comments UA RBC (test code = 1 See_Comment [Automa thelma message] The UA RBC) system which ge nerated this result transmit thelma reference range : <=2. The reference range was not used to interpr et this result as zana l/abnormal. [facility] AND [id number] 04:51:00 Test Item Value Reference Range Interpretation Comments UA Leuk Est (test Negative (04/05/15 11:51 code = UA Leuk Est) PM) [facility] AND [id number] 04:51:00 Test Item Value Reference Range Interpretation Comments UA Sq Epi (test code = UA Sq Occasional /LPF Epi) [facility] AND [id number] 04:51:00 Test Item Value Reference Range Interpretation Comments UA WBC (test code = 2 See_Comment [Automa thelma message] The UA WBC) system which ge nerated this result transmit thelma reference range : <=5. The reference range was not used to interpr et this result as zana l/abnormal. [facility] AND [id number] 04:51:00 Test Item Value Reference Range Interpretation Comments UA Urobilinogen (test code = UA <=1.0 mg/dL 0.1-1.0 Urobilinogen) [facility] AND [id number] 04:51:00 Test Item Value Reference Range Interpretation Comments UA Protein (test code = UA Negative mg/dL Protein) [facility] AND [id number] 04:51:00 Test Item Value Reference Range Interpretation Comments UA Glucose (test code = UA Negative mg/dL Glucose) [facility] AND [id number] 04:51:00 Test Item Value Reference Range Interpretation Comments UA Ketones (test code = UA Negative mg/dL Ketones) [facility] AND [id number] 04:51:00 Test Item Value Reference Range Interpretation Comments UA Bili (test code = Negative *NA*(04/05/15 UA Bili) 11:51 PM) [facility] AND [id number] 04:51:00 Test Item Value Reference Range Interpretation Comments UA pH (test code = UA pH) 6.0 5.0-8.0 [facility] AND [id number] 04:51:00 Test Item Value Reference Range Interpretation Comments UA Turbidity (test code = Clear (04/05/15 11:51 UA Turbidity) PM) [facility] AND [id number] 04:51:00 Test Item Value Reference Range Interpretation Comments UA Spec Grav (test code = UA Spec Grav) 1.006 [facility] AND [id number] 04:51:00 Test Item Value Reference Range Interpretation Comments UA Color (test code = Light Yellow UA Color) *NA*(04/05/15 11:51 PM) [facility] AND [id number] 04:51:00 Test Item Value Reference Range Interpretation Comments UA Blood (test code = Negative (04/05/15 11:51 UA Blood) PM) [facility] AND [id number] 04:51:00 Test Item Value Reference Range Interpretation Comments UA Nitrite (test code Negative (04/05/15 11:51 = UA Nitrite) PM) [facility] AND [id number] 04:51:00 Test Item Value Reference Range Interpretation Comments UA Hyal Cast (test 1 See_Comment [Automat ed message] The code = UA Hyal Cast) system which generated this result transmit thelma reference range : <=2. The reference range was not used to interpr et this result as zana l/abnormal. [facility] AND [id number] 04:51:00 Test Item Value Reference Range Interpretation Comments UA RBC (test code = 1 See_Comment [Automa thelma message] The UA RBC) system which ge nerated this result transmit thelma reference range : <=2. The reference range was not used to interpr et this result as zana l/abnormal. [facility] AND [id number] 04:51:00 Test Item Value Reference Range Interpretation Comments UA Leuk Est (test Negative (04/05/15 11:51 code = UA Leuk Est) PM) [facility] AND [id number] 04:51:00 Test Item Value Reference Range Interpretation Comments UA Sq Epi (test code = UA Sq Occasional /LPF Epi) [facility] AND [id number] 04:51:00 Test Item Value Reference Range Interpretation Comments UA WBC (test code = 2 See_Comment [Automa thelma message] The UA WBC) system which ge nerated this result transmit thelma reference range : <=5. The reference range was not used to interpr et this result as zana l/abnormal. [facility] AND [id number] 04:51:00 Test Item Value Reference Range Interpretation Comments UA Urobilinogen (test code = UA <=1.0 mg/dL 0.1-1.0 Urobilinogen) [facility] AND [id number] 04:51:00 Test Item Value Reference Range Interpretation Comments UA Protein (test code = UA Negative mg/dL Protein) [facility] AND [id number] 04:51:00 Test Item Value Reference Range Interpretation Comments UA Glucose (test code = UA Negative mg/dL Glucose) [facility] AND [id number] 04:51:00 Test Item Value Reference Range Interpretation Comments UA Ketones (test code = UA Negative mg/dL Ketones) [facility] AND [id number] 04:51:00 Test Item Value Reference Range Interpretation Comments UA Bili (test code = Negative *NA*(04/05/15 UA Bili) 11:51 PM) [facility] AND [id number] 04:51:00 Test Item Value Reference Range Interpretation Comments UA pH (test code = UA pH) 6.0 5.0-8.0 [facility] AND [id number] 04:51:00 Test Item Value Reference Range Interpretation Comments UA Turbidity (test code = Clear (04/05/15 11:51 UA Turbidity) PM) [facility] AND [id number] 04:51:00 Test Item Value Reference Range Interpretation Comments UA Spec Grav (test code = UA Spec Grav) 1.006 [facility] AND [id number] 04:51:00 Test Item Value Reference Range Interpretation Comments UA Color (test code = Light Yellow UA Color) *NA*(04/05/15 11:51 PM) [facility] AND [id number] 04:51:00 Test Item Value Reference Range Interpretation Comments UA Blood (test code = Negative (04/05/15 11:51 UA Blood) PM) [facility] AND [id number] 04:51:00 Test Item Value Reference Range Interpretation Comments UA Nitrite (test code Negative (04/05/15 11:51 = UA Nitrite) PM) [facility] AND [id number] 04:51:00 Test Item Value Reference Range Interpretation Comments UA Hyal Cast (test 1 See_Comment [Automat ed message] The code = UA Hyal Cast) system which generated this result transmit thelma reference range : <=2. The reference range was not used to interpr et this result as zana l/abnormal. [facility] AND [id number] 04:51:00 Test Item Value Reference Range Interpretation Comments UA RBC (test code = 1 See_Comment [Automa thelma message] The UA RBC) system which ge nerated this result transmit thelma reference range : <=2. The reference range was not used to interpr et this result as zana l/abnormal. [facility] AND [id number] 04:51:00 Test Item Value Reference Range Interpretation Comments UA Leuk Est (test Negative (04/05/15 11:51 code = UA Leuk Est) PM) [facility] AND [id number] 04:51:00 Test Item Value Reference Range Interpretation Comments UA Sq Epi (test code = UA Sq Occasional /LPF Epi) [facility] AND [id number] 04:51:00 Test Item Value Reference Range Interpretation Comments UA WBC (test code = 2 See_Comment [Automa thelma message] The UA WBC) system which ge nerated this result transmit thelma reference range : <=5. The reference range was not used to interpr et this result as zana l/abnormal. [facility] AND [id number] 04:51:00 Test Item Value Reference Range Interpretation Comments UA Urobilinogen (test code = UA <=1.0 mg/dL 0.1-1.0 Urobilinogen) [facility] AND [id number] 04:51:00 Test Item Value Reference Range Interpretation Comments UA Protein (test code = UA Negative mg/dL Protein) [facility] AND [id number] 04:51:00 Test Item Value Reference Range Interpretation Comments UA Glucose (test code = UA Negative mg/dL Glucose) [facility] AND [id number] 04:51:00 Test Item Value Reference Range Interpretation Comments UA Ketones (test code = UA Negative mg/dL Ketones) [facility] [id number] 04:51:00 Test Item Value Reference Range Interpretation Comments UA Bili (test code = Negative *NA*(04/05/15 UA Bili) 11:51 PM) [facility] [id number] 04:51:00 Test Item Value Reference Range Interpretation Comments UA pH (test code = UA pH) 6.0 5.0-8.0 [facility] [id number] 04:51:00 Test Item Value Reference Range Interpretation Comments UA Turbidity (test code = Clear (04/05/15 11:51 UA Turbidity) PM) [facility] [id number] 04:51:00 Test Item Value Reference Range Interpretation Comments UA Spec Grav (test code = UA Spec Grav) 1.006 [facility] AND [id number] 04:51:00 Test Item Value Reference Range Interpretation Comments UA Color (test code = Light Yellow UA Color) *NA*(04/05/15 11:51 PM) [facility] [id number] 04:51:00 Test Item Value Reference Range Interpretation Comments UA Blood (test code = Negative (04/05/15 11:51 UA Blood) PM) [facility] AND [id number] 04:51:00 Test Item Value Reference Range Interpretation Comments UA Nitrite (test code Negative (04/05/15 11:51 = UA Nitrite) PM) [facility] [id number] 02:44:00 Test Item Value Reference Range Interpretation Comments CK MB (test code = CK MB) 1.8 0.5-3.6 [facility] [id number] 02:44:00 Test Item Value Reference Range Interpretation Comments Total CK (test code = Total CK) 109 12-191 [facility] [id number] 02:44:00 Test Item Value Reference Range Interpretation Comments Troponin-I (test code 0.02 See_Comment [Auto mated message] The = Troponin-I) system which g enerated this result transmit thelma reference range : <=0.40. The reference r eric was not used to interpr et this result as zana l/abnormal. [facility] [id number] 02:44:00 Test Item Value Reference Range Interpretation Comments CK MB Index (test 1.7 See_Comment [Automate d message] The code = CK MB Index) system w [facility] generated this result transmit thelma reference range : <=2.5. The reference range was not used to interpr et this result as zana l/abnormal. [facility] [id number] 02:44:00 Test Item Value Reference Range Interpretation Comments eGFR (test code = eGFR) 58 [facility] [id number] 02:44:00 Test Item Value Reference Range Interpretation Comments Bili Total (test code = Bili Total) 0.3 0.2-1.3 [facility] [id number] 02:44:00 Test Item Value Reference Range Interpretation Comments Alk Phos (test code = Alk Phos) 58 39-136 [facility] [id number] 02:44:00 Test Item Value Reference Range Interpretation Comments Albumin Lvl (test code = Albumin Lvl) 3.8 3.5-5.0 [facility] [id number] 02:44:00 Test Item Value Reference Range Interpretation Comments AST (test code = AST) 19 See_Comment [Auto mated message] The system which ge nerated this result transmit thelma reference range : <=37. The reference range was not used to interpr et this result as zana l/abnormal. [facility] [id number] 02:44:00 Test Item Value Reference Range Interpretation Comments Chloride Lvl (test code = Chloride Lvl) 106 95-109 [facility] [id number] 02:44:00 Test Item Value Reference Range Interpretation Comments Total Protein (test code = Total 7.8 6.4-8.4 Protein) [facility] [id number] 02:44:00 Test Item Value Reference Range Interpretation Comments CO2 (test code = CO2) 29 24-32 [facility] [id number] 02:44:00 Test Item Value Reference Range Interpretation Comments Calcium Lvl (test code = Calcium Lvl) 9.8 8.5-10.5 [facility]annAT[facility] [id number] 02:44:00 Test Item Value Reference Range Interpretation Comments Potassium Lvl (test code = Potassium 4.7 3.5-5.1 Lvl) [facility]2015-07-24 02:44:00 Test Item Value Reference Range Interpretation Comments Glucose Lvl (test code = Glucose Lvl) 179 70-99 [facility]2015-07-24 02:44:00 Test Item Value Reference Range Interpretation Comments Sodium Lvl (test code = Sodium Lvl) 142 135-145 [facility]2015-07-24 02:44:00 Test Item Value Reference Range Interpretation Comments ALT (test code = ALT) 21 See_Comment [Auto mated message] The system which ge nerated this result transmit thelma reference range : <=65. The reference range was not used to interpr et this result as zana l/abnormal. [facility]2015-07-24 02:44:00 Test Item Value Reference Range Interpretation Comments BUN (test code = BUN) 16 7-22 [facility]2015-07-24 02:44:00 Test Item Value Reference Range Interpretation Comments Creatinine Lvl (test code = Creatinine 1.0 0.5-1.4 Lvl) [facility]2015-07-24 02:44:00 Test Item Value Reference Range Interpretation Comments A/G Ratio (test code = A/G Ratio) 1.0 0.7-1.6 [facility]2015-07-24 02:44:00 Test Item Value Reference Range Interpretation Comments B/C Ratio (test code = B/C Ratio) 16 6-25 [facility]2015-07-24 02:44:00 Test Item Value Reference Range Interpretation Comments Globulin (test code = Globulin) 4.0 2.0-4.0 [facility]2015-07-24 02:44:00 Test Item Value Reference Range Interpretation Comments AGAP (test code = AGAP) 11.7 10.0-20.0 [facility] [id number] 02:44:00 Test Item Value Reference Range Interpretation Comments Basophils # (test code 0.0 See_Comment [Aut omated message] The = Basophils #) system which generated this result tra nsmitted reference range : <=0.2. The reference r eric was not used to int erpret this result as normal/abnormal . [facility] [id number] 02:44:00 Test Item Value Reference Range Interpretation Comments Eosinophils # (test code 0.4 See_Comment [A utomated message] The = Eosinophils #) system [facility] h generated this result tra nsmitted reference range : <=0.5. The reference r eric was not used to int erpret this result as normal/abnormal . [facility] [id number] 02:44:00 Test Item Value Reference Range Interpretation Comments Segs-Bands # (test code = Segs-Bands #) 8.1 1.5-8.1 [facility] [id number] 02:44:00 Test Item Value Reference Range Interpretation Comments Lymphocytes # (test code = Lymphocytes 1.6 1.0-5.5 #) [facility] [id number] 02:44:00 Test Item Value Reference Range Interpretation Comments Eosinophils (test code = 3.6 See_Comment [A utomated message] The Eosinophils) system which ge nerated this result tra nsmitted reference range : <=4.0. The reference r eric was not used to int erpret this result as normal/abnormal . [facility] [id number] 02:44:00 Test Item Value Reference Range Interpretation Comments Basophils (test code = 0.4 See_Comment [Aut omated message] The Basophils) system which ge nerated this result tra nsmitted reference range : <=1.0. The reference r eric was not used to int erpret this result as normal/abnormal . [facility] [id number] 02:44:00 Test Item Value Reference Range Interpretation Comments Monocytes # (test code 0.5 See_Comment [Aut omated message] The = Monocytes #) system which generated this result tra nsmitted reference range : <=0.8. The reference r eric was not used to int erpret this result as normal/abnormal . [facility] TempleTdsdrevBDYFMTQGEV8682-88-94 02:44:00 Test Item Value Reference Range Interpretation Comments Lymphocytes (test code = Lymphocytes) 15.3 20.0-40.0 [facility] TempleRouetugGYZGIVRNFP0005-44-97 02:44:00 Test Item Value Reference Range Interpretation Comments Segs (test code = Segs) 76.4 45.0-75.0 [facility] TempleQzipmlfWXFBXAMLKC2846-48-22 02:44:00 Test Item Value Reference Range Interpretation Comments Monocytes (test code = Monocytes) 4.3 2.0-12.0 [facility] TempleKxogweqHQYGCRHETJ9011-42-96 02:44:00 Test Item Value Reference Range Interpretation Comments Hgb (test code = Hgb) 14.5 12.0-16.0 [facility] TempleZlxazdsMJSCKIYUIF9369-24-79 02:44:00 Test Item Value Reference Range Interpretation Comments MCH (test code = MCH) 26.4 pg 27.0-31.0 [facility] TempleSiyogziQABOXWKJLQ8994-25-93 02:44:00 Test Item Value Reference Range Interpretation Comments MCHC (test code = MCHC) 31.7 32.0-36.0 [facility] TempleMoiuurdCKCAUYYOXM5512-15-67 02:44:00 Test Item Value Reference Range Interpretation Comments MCV (test code = MCV) 83.4 80.0-98.0 [facility] TempleIwwpvyuTEAYGLJZJT1188-26-22 02:44:00 Test Item Value Reference Range Interpretation Comments Hct (test code = Hct) 45.6 36.0-48.0 [facility] TempleLbcqjaeZJOLXEHWVA8128-67-06 02:44:00 Test Item Value Reference Range Interpretation Comments RBC (test code = RBC) 5.47 4.20-5.40 [facility] TempleZcqhgxzBSJGBXVVWX3318-29-52 02:44:00 Test Item Value Reference Range Interpretation Comments WBC (test code = WBC) 10.6 3.7-10.4 [facility] TempleTvchdkmGXJMBNGIIT3421-34-26 02:44:00 Test Item Value Reference Range Interpretation Comments RDW (test code = RDW) 13.9 11.5-14.5 [facility] TempleVvpxniqZDYHOABZRQ6560-57-58 02:44:00 Test Item Value Reference Range Interpretation Comments MPV (test code = MPV) 9.3 7.4-10.4 [facility] TempleObbfwlpVYXVIDCPUY2345-33-73 02:44:00 Test Item Value Reference Range Interpretation Comments Platelet (test code = Platelet) [address] [facility]rpBTXDSDDWWX5812-65-40 02:44:00 Test Item Value Reference Range Interpretation Comments Acetaminoph Lvl (test code = no gt 10-20 Acetaminoph Lvl) [facility] CenterPqjlwrcZEKERPGQTS8313-95-92 02:44:00 Test Item Value Reference Range Interpretation Comments Salicylate Lvl (test 2.1 See_Comment [Autom ated message] The code = Salicylate Lvl) syste m which generated this result tra nsmitted reference range : <=30.0. The reference r eric was not used to int erpret this result as normal/abnormal . [facility] CenterNeyfefbITYJJPDMUG9470-18-35 02:44:00 Test Item Value Reference Range Interpretation Comments Etoh (%) (test code = Etoh (%)) no gt [facility] LdohrkrKCJZFUBYUH3882-97-71 02:44:00 Test Item Value Reference Range Interpretation Comments Ethanol Lvl (test code = Ethanol Lvl) no gt [facility] [employer] SoftwareannCARDIAC [id number] 02:44:00 Test Item Value Reference Range Interpretation Comments CK MB (test code = CK MB) 1.8 0.5-3.6 [facility] CenterOfferLoungeAC [id number] 02:44:00 Test Item Value Reference Range Interpretation Comments Total CK (test code = Total CK) 109 12-191 [facility] CenterOphis [employer] [id number] 02:44:00 Test Item Value Reference Range Interpretation Comments Troponin-I (test code 0.02 See_Comment [Auto mated message] The = Troponin-I) system which g enerated this result transmit thelma reference range : <=0.40. The reference r eric was not used to interpr et this result as zana l/abnormal. [facility] CenterOfferLoungeAC [id number] 02:44:00 Test Item Value Reference Range Interpretation Comments CK MB Index (test 1.7 See_Comment [Automate d message] The code = CK MB Index) [facility] transmit thelma reference range : <=2.5. The reference range was not used to interpr et this result as zana l/abnormal. [facility] [employer] [id number] 02:44:00 Test Item Value Reference Range Interpretation Comments eGFR (test code = eGFR) 58 [facility] [employer] [id number] 02:44:00 Test Item Value Reference Range Interpretation Comments Bili Total (test code = Bili Total) 0.3 0.2-1.3 [facility]2015-07-24 02:44:00 Test Item Value Reference Range Interpretation Comments Alk Phos (test code = Alk Phos) 58 39-136 [facility]2015-07-24 02:44:00 Test Item Value Reference Range Interpretation Comments Albumin Lvl (test code = Albumin Lvl) 3.8 3.5-5.0 [facility]2015-07-24 02:44:00 Test Item Value Reference Range Interpretation Comments AST (test code = AST) 19 See_Comment [Auto mated message] The system which ge nerated this result transmit thelma reference range : <=37. The reference range was not used to interpr et this result as zana l/abnormal. [facility]2015-07-24 02:44:00 Test Item Value Reference Range Interpretation Comments Chloride Lvl (test code = Chloride Lvl) 106 95-109 [facility]2015-07-24 02:44:00 Test Item Value Reference Range Interpretation Comments Total Protein (test code = Total 7.8 6.4-8.4 Protein) [facility]2015-07-24 02:44:00 Test Item Value Reference Range Interpretation Comments CO2 (test code = CO2) 29 24-32 [facility]2015-07-24 02:44:00 Test Item Value Reference Range Interpretation Comments Calcium Lvl (test code = Calcium Lvl) 9.8 8.5-10.5 [facility]2015-07-24 02:44:00 Test Item Value Reference Range Interpretation Comments Potassium Lvl (test code = Potassium 4.7 3.5-5.1 Lvl) [facility]2015-07-24 02:44:00 Test Item Value Reference Range Interpretation Comments Glucose Lvl (test code = Glucose Lvl) 179 70-99 [facility]2015-07-24 02:44:00 Test Item Value Reference Range Interpretation Comments Sodium Lvl (test code = Sodium Lvl) 142 135-145 [facility]2015-07-24 02:44:00 Test Item Value Reference Range Interpretation Comments ALT (test code = ALT) 21 See_Comment [Auto mated message] The system which ge nerated this result transmit thelma reference range : <=65. The reference range was not used to interpr et this result as zana l/abnormal. [facility]2015-07-24 02:44:00 Test Item Value Reference Range Interpretation Comments BUN (test code = BUN) 16 - [facility]2015-07-24 02:44:00 Test Item Value Reference Range Interpretation Comments Creatinine Lvl (test code = Creatinine 1.0 0.5-1.4 Lvl) [facility]2015-07-24 02:44:00 Test Item Value Reference Range Interpretation Comments A/G Ratio (test code = A/G Ratio) 1.0 0.7-1.6 [facility]2015-07-24 02:44:00 Test Item Value Reference Range Interpretation Comments B/C Ratio (test code = B/C Ratio) 16 - [facility]2015-07-24 02:44:00 Test Item Value Reference Range Interpretation Comments Globulin (test code = Globulin) 4.0 2.0-4.0 [facility]2015-07-24 02:44:00 Test Item Value Reference Range Interpretation Comments AGAP (test code = AGAP) 11.7 10.0-20.0 [facility] TempleHbspfugERVJGBKGHY7133-14-87 02:44:00 Test Item Value Reference Range Interpretation Comments Basophils # (test code 0.0 See_Comment [Aut omated message] The = Basophils #) system which generated this result tra nsmitted reference range : <=0.2. The reference r eirc was not used to int erpret this result as normal/abnormal . [facility] TempleYggyqowRZGRSRPUFZ7139-25-97 02:44:00 Test Item Value Reference Range Interpretation Comments Eosinophils # (test code 0.4 See_Comment [A utomated message] The = Eosinophils #) system whic h generated this result tra nsmitted reference range : <=0.5. The reference r eric was not used to int erpret this result as normal/abnormal . [facility] TempleJzvookcWBFHPANWGH2160-32-08 02:44:00 Test Item Value Reference Range Interpretation Comments Segs-Bands # (test code = Segs-Bands #) 8.1 1.5-8.1 [facility] TempleTfqbizeYKPHPMNLPY1299-66-03 02:44:00 Test Item Value Reference Range Interpretation Comments Lymphocytes # (test code = Lymphocytes 1.6 1.0-5.5 #) [facility] TempleHxreinwORHAXMIAMY0336-69-33 02:44:00 Test Item Value Reference Range Interpretation Comments Eosinophils (test code = 3.6 See_Comment [A utomated message] The Eosinophils) system which ge nerated this result tra nsmitted reference range : <=4.0. The reference r eric was not used to int erpret this result as normal/abnormal . [facility] TempleBtwqldnRPCSPHIBPJ1208-55-04 02:44:00 Test Item Value Reference Range Interpretation Comments Basophils (test code = 0.4 See_Comment [Aut omated message] The Basophils) system which ge nerated this result tra nsmitted reference range : <=1.0. The reference r eric was not used to int erpret this result as normal/abnormal . [facility] TempleLcgroedHKJDYGMFBT9491-48-08 02:44:00 Test Item Value Reference Range Interpretation Comments Monocytes # (test code 0.5 See_Comment [Aut omated message] The = Monocytes #) system which generated this result tra nsmitted reference range : <=0.8. The reference r eric was not used to int erpret this result as normal/abnormal . [facility] TempleDdzcroqMWSIQUENZL1252-43-64 02:44:00 Test Item Value Reference Range Interpretation Comments Lymphocytes (test code = Lymphocytes) 15.3 20.0-40.0 [facility] TemplePjqorngGBWKKNVUSY5548-74-75 02:44:00 Test Item Value Reference Range Interpretation Comments Segs (test code = Segs) 76.4 45.0-75.0 [facility] TempleKryehrmRVJGWEEDLL6759-20-37 02:44:00 Test Item Value Reference Range Interpretation Comments Monocytes (test code = Monocytes) 4.3 2.0-12.0 [facility] TempleRmupnplOHDKVMKNJB7246-86-35 02:44:00 Test Item Value Reference Range Interpretation Comments Hgb (test code = Hgb) 14.5 12.0-16.0 [facility] TempleBenxcxhYOALDZXELO3213-16-51 02:44:00 Test Item Value Reference Range Interpretation Comments MCH (test code = MCH) 26.4 pg 27.0-31.0 [facility] TempleBfsyziiLIZEEZVLDI4315-59-37 02:44:00 Test Item Value Reference Range Interpretation Comments MCHC (test code = MCHC) 31.7 32.0-36.0 [facility] TempleZbraikfGNMBIKCDKA7385-88-28 02:44:00 Test Item Value Reference Range Interpretation Comments MCV (test code = MCV) 83.4 80.0-98.0 [facility] TempleWyiqlolTLMQEBIASG7164-84-46 02:44:00 Test Item Value Reference Range Interpretation Comments Hct (test code = Hct) 45.6 36.0-48.0 [facility] TempleHazegyvKNSXPOPHOW0916-90-39 02:44:00 Test Item Value Reference Range Interpretation Comments RBC (test code = RBC) 5.47 4.20-5.40 [facility] TempleJgsunbnEOZXVLBLHP1732-27-58 02:44:00 Test Item Value Reference Range Interpretation Comments WBC (test code = WBC) 10.6 3.7-10.4 [facility] TempleMaxiwgvJFFFJPPRPA5028-34-87 02:44:00 Test Item Value Reference Range Interpretation Comments RDW (test code = RDW) 13.9 11.5-14.5 [facility] TempleQapmidxFJEIYKWEBP3014-01-60 02:44:00 Test Item Value Reference Range Interpretation Comments MPV (test code = MPV) 9.3 7.4-10.4 [facility] TempleTstprqyCGIRNPVMBN3424-77-16 02:44:00 Test Item Value Reference Range Interpretation Comments Platelet (test code = Platelet) 267 133-450 [place] [id number] 02:44:00 Test Item Value Reference Range Interpretation Comments Acetaminoph Lvl (test code = no gt 10-20 Acetaminoph Lvl) [place] [id number] 02:44:00 Test Item Value Reference Range Interpretation Comments Salicylate Lvl (test 2.1 See_Comment [Autom ated message] The code = Salicylate Lvl) syste m which generated this result tra nsmitted reference range : <=30.0. The reference r eric was not used to int erpret this result as normal/abnormal . [place] [id number] 02:44:00 Test Item Value Reference Range Interpretation Comments Etoh (%) (test code = Etoh (%)) no gt [place] [id number] 02:44:00 Test Item Value Reference Range Interpretation Comments Ethanol Lvl (test code = Ethanol Lvl) [facility] gt [facility] [id number] 02:44:00 Test Item Value Reference Range Interpretation Comments CK MB (test code = CK MB) 1.8 0.5-3.6 [facility] [id number] 02:44:00 Test Item Value Reference Range Interpretation Comments Total CK (test code = Total CK) 109 12-191 [facility] [employer] SoftwareannCARTargetingMantraAC [id number] 02:44:00 Test Item Value Reference Range Interpretation Comments Troponin-I (test code 0.02 See_Comment [Auto mated message] The = Troponin-I) system which g enerated this result transmit thelma reference range : <=0.40. The reference r eric was not used to interpr et this result as zana l/abnormal. [facility] [employer] [id number] 02:44:00 Test Item Value Reference Range Interpretation Comments CK MB Index (test 1.7 See_Comment [Automate d message] The code = CK MB Index) system w [facility] generated this result transmit thelma reference range : <=2.5. The reference range was not used to interpr et this result as zana l/abnormal. [place] [id number] 02:44:00 Test Item Value Reference Range Interpretation Comments eGFR (test code = eGFR) 58 [facility] [employer] [id number] 02:44:00 Test Item Value Reference Range Interpretation Comments Bili Total (test code = Bili Total) 0.3 0.2-1.3 [facility] [employer] [id number] 02:44:00 Test Item Value Reference Range Interpretation Comments Alk Phos (test code = Alk Phos) 58 39-136 [facility] [employer] [id number] 02:44:00 Test Item Value Reference Range Interpretation Comments Albumin Lvl (test code = Albumin Lvl) 3.8 3.5-5.0 [facility] [employer] [id number] 02:44:00 Test Item Value Reference Range Interpretation Comments AST (test code = AST) 19 See_Comment [Auto mated message] The system which ge nerated this result transmit thelma reference range : <=37. The reference range was not used to interpr et this result as zana l/abnormal. [place] [id number] 02:44:00 Test Item Value Reference Range Interpretation Comments Chloride Lvl (test code = Chloride Lvl) 106 95-109 [facility]2015-07-24 02:44:00 Test Item Value Reference Range Interpretation Comments Total Protein (test code = Total 7.8 6.4-8.4 Protein) [facility]2015-07-24 02:44:00 Test Item Value Reference Range Interpretation Comments CO2 (test code = CO2) 29 24-32 [facility]2015-07-24 02:44:00 Test Item Value Reference Range Interpretation Comments Calcium Lvl (test code = Calcium Lvl) 9.8 8.5-10.5 [facility]2015-07-24 02:44:00 Test Item Value Reference Range Interpretation Comments Potassium Lvl (test code = Potassium 4.7 3.5-5.1 Lvl) [facility]2015-07-24 02:44:00 Test Item Value Reference Range Interpretation Comments Glucose Lvl (test code = Glucose Lvl) 179 70-99 [facility]2015-07-24 02:44:00 Test Item Value Reference Range Interpretation Comments Sodium Lvl (test code = Sodium Lvl) 142 135-145 [facility]2015-07-24 02:44:00 Test Item Value Reference Range Interpretation Comments ALT (test code = ALT) 21 See_Comment [Auto mated message] The system which ge nerated this result transmit thelma reference range : <=65. The reference range was not used to interpr et this result as zana l/abnormal. [facility]2015-07-24 02:44:00 Test Item Value Reference Range Interpretation Comments BUN (test code = BUN) 16 - [facility]2015-07-24 02:44:00 Test Item Value Reference Range Interpretation Comments Creatinine Lvl (test code = Creatinine 1.0 0.5-1.4 Lvl) [facility]2015-07-24 02:44:00 Test Item Value Reference Range Interpretation Comments A/G Ratio (test code = A/G Ratio) 1.0 0.7-1.6 [facility]2015-07-24 02:44:00 Test Item Value Reference Range Interpretation Comments B/C Ratio (test code = B/C Ratio) 16 - [facility]2015-07-24 02:44:00 Test Item Value Reference Range Interpretation Comments Globulin (test code = Globulin) 4.0 2.0-4.0 [facility]2015-07-24 02:44:00 Test Item Value Reference Range Interpretation Comments AGAP (test code = AGAP) 11.7 10.0-20.0 [facility] TemplePzdnlevAGUNBWPORB8863-88-50 02:44:00 Test Item Value Reference Range Interpretation Comments Basophils # (test code 0.0 See_Comment [Aut omated message] The = Basophils #) system which generated this result tra nsmitted reference range : <=0.2. The reference r eric was not used to int erpret this result as normal/abnormal . [facility] TempleSaunnofDNALMJHWXO2760-12-84 02:44:00 Test Item Value Reference Range Interpretation Comments Eosinophils # (test code 0.4 See_Comment [A utomated message] The = Eosinophils #) system whic h generated this result tra nsmitted reference range : <=0.5. The reference r eric was not used to int erpret this result as normal/abnormal . [facility] TempleVbtdytcQVTFBTQFGC3279-14-52 02:44:00 Test Item Value Reference Range Interpretation Comments Segs-Bands # (test code = Segs-Bands #) 8.1 1.5-8.1 [facility] TempleUpdlkkvBALTUFUWPH7056-14-24 02:44:00 Test Item Value Reference Range Interpretation Comments Lymphocytes # (test code = Lymphocytes 1.6 1.0-5.5 #) [facility] TempleVewzlhfZSTWOXRPXM2261-38-74 02:44:00 Test Item Value Reference Range Interpretation Comments Eosinophils (test code = 3.6 See_Comment [A utomated message] The Eosinophils) system which ge nerated this result tra nsmitted reference range : <=4.0. The reference r eric was not used to int erpret this result as normal/abnormal . [facility] TempleMaoitxaKESHNUJRME4097-22-56 02:44:00 Test Item Value Reference Range Interpretation Comments Basophils (test code = 0.4 See_Comment [Aut omated message] The Basophils) system which ge nerated this result tra nsmitted reference range : <=1.0. The reference r eric was not used to int erpret this result as normal/abnormal . [facility] TempleXhvhzbwVBMQWYPQUO3265-22-49 02:44:00 Test Item Value Reference Range Interpretation Comments Monocytes # (test code 0.5 See_Comment [Aut omated message] The = Monocytes #) system which generated this result tra nsmitted reference range : <=0.8. The reference r eric was not used to int erpret this result as normal/abnormal . [facility] TempleUkmcxuiZMGKKODZYU9756-70-61 02:44:00 Test Item Value Reference Range Interpretation Comments Lymphocytes (test code = Lymphocytes) 15.3 20.0-40.0 [facility] TempleAlbalrgLUWAVLJPBV3624-91-05 02:44:00 Test Item Value Reference Range Interpretation Comments Segs (test code = Segs) 76.4 45.0-75.0 [facility] TempleVvbqtxuHKTETSUSHT0462-75-96 02:44:00 Test Item Value Reference Range Interpretation Comments Monocytes (test code = Monocytes) 4.3 2.0-12.0 [facility] TempleFqmqjhqIIXHEMPODV3779-94-55 02:44:00 Test Item Value Reference Range Interpretation Comments Hgb (test code = Hgb) 14.5 12.0-16.0 [facility] TempleLobhwepCCJUPKVUTS0368-09-05 02:44:00 Test Item Value Reference Range Interpretation Comments MCH (test code = MCH) 26.4 pg 27.0-31.0 [facility] TempleDppwmiuUAJJZHHIDY1148-78-81 02:44:00 Test Item Value Reference Range Interpretation Comments MCHC (test code = MCHC) 31.7 32.0-36.0 [facility] TempleMyujhauQBBUALJIAM5701-54-13 02:44:00 Test Item Value Reference Range Interpretation Comments MCV (test code = MCV) 83.4 80.0-98.0 [facility] TempleVwfmmsrOFVEHBJVUF1048-20-25 02:44:00 Test Item Value Reference Range Interpretation Comments Hct (test code = Hct) 45.6 36.0-48.0 [facility] TempleFhvwpbaTJANATCRBK3811-66-48 02:44:00 Test Item Value Reference Range Interpretation Comments RBC (test code = RBC) 5.47 4.20-5.40 [facility] TempleHlliqxbYZOYRJMQTU3001-10-48 02:44:00 Test Item Value Reference Range Interpretation Comments WBC (test code = WBC) 10.6 3.7-10.4 [facility] TempleXwokgbqYSBUNNMPEJ3646-77-18 02:44:00 Test Item Value Reference Range Interpretation Comments RDW (test code = RDW) 13.9 11.5-14.5 [facility] TempleZtmyckzLXBMFFPHNX5435-58-54 02:44:00 Test Item Value Reference Range Interpretation Comments MPV (test code = MPV) 9.3 7.4-10.4 [facility] TempleVqkkhudSRYRIOONND3888-32-84 02:44:00 Test Item Value Reference Range Interpretation Comments Platelet (test code = Platelet) 267 133-450 [place] [id number] 02:44:00 Test Item Value Reference Range Interpretation Comments Acetaminoph Lvl (test code = no gt 10-20 Acetaminoph Lvl) [place] [id number] 02:44:00 Test Item Value Reference Range Interpretation Comments Salicylate Lvl (test 2.1 See_Comment [Autom ated message] The code = Salicylate Lvl) syste m which generated this result tra nsmitted reference range : <=30.0. The reference r eric was not used to int erpret this result as normal/abnormal . [place] [id number] 02:44:00 Test Item Value Reference Range Interpretation Comments Etoh (%) (test code = Etoh (%)) no gt [place] [id number] 02:44:00 Test Item Value Reference Range Interpretation Comments Ethanol Lvl (test code = Ethanol Lvl) no gt [facility]2014-08-03 20:50:00 Test Item Value Reference Range Interpretation Comments Magnesium Lvl (test code = Magnesium 1.5 1.8-2.4 Lvl) [id number] 20:50:00 Test Item Value Reference Range Interpretation Comments Phosphorus (test code = Phosphorus) 3.5 2.5-4.5 [facility]2014-08-03 20:50:00 Test Item Value Reference Range Interpretation Comments eGFR (test code = eGFR) 47 [facility]2014-08-03 20:50:00 Test Item Value Reference Range Interpretation Comments Chloride Lvl (test code = Chloride Lvl) 100 95-[address] [facility] [id number] 20:50:00 Test Item Value Reference Range Interpretation Comments Sodium Lvl (test code = Sodium Lvl) 135 135-145 [facility]2014-08-03 20:50:00 Test Item Value Reference Range Interpretation Comments Potassium Lvl (test code = Potassium 4.9 3.5-5.1 Lvl) [facility]2014-08-03 20:50:00 Test Item Value Reference Range Interpretation Comments Glucose Lvl (test code = Glucose Lvl) 240 70-99 [facility]2014-08-03 20:50:00 Test Item Value Reference Range Interpretation Comments BUN (test code = BUN) 25 7-22 [facility]2014-08-03 20:50:00 Test Item Value Reference Range Interpretation Comments CO2 (test code = CO2) 29 24-32 [facility]2014-08-03 20:50:00 Test Item Value Reference Range Interpretation Comments AGAP (test code = AGAP) 10.9 10.0-20.0 [facility]2014-08-03 20:50:00 Test Item Value Reference Range Interpretation Comments Creatinine Lvl (test code = Creatinine 1.2 0.5-1.4 Lvl) [facility]2014-08-03 20:50:00 Test Item Value Reference Range Interpretation Comments Calcium Lvl (test code = Calcium Lvl) 9.3 8.5-10.5 [facility] TemplePphmvdpIXTYRISOZZ9506-22-39 20:50:00 Test Item Value Reference Range Interpretation Comments MPV (test code = MPV) 9.6 7.4-10.4 [facility] TempleYmbjdugLJHGPXTNJG0385-41-43 20:50:00 Test Item Value Reference Range Interpretation Comments WBC (test code = WBC) 9.7 3.7-10.4 [facility] TempleTufoevxIYYFBWBMOY1561-15-08 20:50:00 Test Item Value Reference Range Interpretation Comments RDW (test code = RDW) 13.8 11.5-14.5 [facility] TempleTyclauuYEFHZMPYRS5296-05-93 20:50:00 Test Item Value Reference Range Interpretation Comments MCHC (test code = MCHC) 32.9 32.0-36.0 [facility] TempleDizznjfZGVJBLWKYS4241-87-00 20:50:00 Test Item Value Reference Range Interpretation Comments RBC (test code = RBC) 4.95 4.20-5.40 [facility] TempleNjxbaamTHDOMIODCA3348-25-30 20:50:00 Test Item Value Reference Range Interpretation Comments MCV (test code = MCV) 82.4 81.0-99.0 [facility] TempleOnvkgcwPXZSWMASEI8790-65-31 20:50:00 Test Item Value Reference Range Interpretation Comments Hgb (test code = Hgb) 13.4 12.0-16.0 [facility] TempleLqqlmkrEJLKGAMCJB5497-44-51 20:50:00 Test Item Value Reference Range Interpretation Comments Platelet (test code = Platelet) 275 133-450 [facility] TempleVdoirzxUIEGXHFZPE7366-69-44 20:50:00 Test Item Value Reference Range Interpretation Comments Hct (test code = Hct) 40.8 36.0-48.0 [facility] TempleJkuxqtzZSETEAPSGC6416-18-86 20:50:00 Test Item Value Reference Range Interpretation Comments MCH (test code = MCH) 27.1 pg 27.0-31.0 [facility] TempleJhcxaboKBIPRRWWHP0059-51-65 20:50:00 Test Item Value Reference Range Interpretation Comments Monocytes # (test code 0.3 See_Comment [Aut omated message] The = Monocytes #) system which generated this result tra nsmitted reference range : <=0.8. The reference r eric was not used to int erpret this result as normal/abnormal . [facility] TempleFynascmDVWYCXMBHB5039-61-85 20:50:00 Test Item Value Reference Range Interpretation Comments Basophils # (test code 0.0 See_Comment [Aut omated message] The = Basophils #) system which generated this result tra nsmitted reference range : <=0.2. The reference r eric was not used to int erpret this result as normal/abnormal . [facility] TempleFmkmzmtBWQGPFRMDK0461-36-74 20:50:00 Test Item Value Reference Range Interpretation Comments Eosinophils # (test code 0.0 See_Comment [A utomated message] The = Eosinophils #) system whic h generated this result tra nsmitted reference range : <=0.5. The reference r eric was not used to int erpret this result as normal/abnormal . [facility] TempleCfwgdmkPKKWGUKVPO1796-14-23 20:50:00 Test Item Value Reference Range Interpretation Comments Segs-Bands # (test code = Segs-Bands #) 8.7 1.5-8.1 [facility] TempleXpvifapAPXSGMQGVC6099-59-41 20:50:00 Test Item Value Reference Range Interpretation Comments Lymphocytes # (test code = Lymphocytes 0.8 1.0-5.5 #) [facility] TempleViswtxfUGINNHNNMC9511-16-04 20:50:00 Test Item Value Reference Range Interpretation Comments Eosinophils (test code = 0.0 See_Comment [A utomated message] The Eosinophils) system which ge nerated this result tra nsmitted reference range : <=4.0. The reference r eric was not used to int erpret this result as normal/abnormal . [facility] TempleUkfetuiKBTJPKSKQF7059-09-82 20:50:00 Test Item Value Reference Range Interpretation Comments Basophils (test code = 0.2 See_Comment [Aut omated message] The Basophils) system which ge nerated this result tra nsmitted reference range : <=1.0. The reference r eric was not used to int erpret this result as normal/abnormal . [facility] TempleLjtinclLGIDZDJBPF3667-92-52 20:50:00 Test Item Value Reference Range Interpretation Comments Monocytes (test code = Monocytes) 2.7 2.0-12.0 [facility] TempleAiqnicpFXBOEHSJDF1603-80-06 20:50:00 Test Item Value Reference Range Interpretation Comments Lymphocytes (test code = Lymphocytes) 8.1 20.0-40.0 [facility] TempleVuplgnhHXELUPUMZM8141-31-52 20:50:00 Test Item Value Reference Range Interpretation Comments Segs (test code = Segs) 89.0 45.0-75.0 [facility]2014-08-03 20:50:00 Test Item Value Reference Range Interpretation Comments Magnesium Lvl (test code = Magnesium 1.5 1.8-2.4 Lvl) [facility]2014-08-03 20:50:00 Test Item Value Reference Range Interpretation Comments Phosphorus (test code = Phosphorus) 3.5 2.5-4.5 [facility]2014-08-03 20:50:00 Test Item Value Reference Range Interpretation Comments eGFR (test code = eGFR) 47 [facility]2014-08-03 20:50:00 Test Item Value Reference Range Interpretation Comments Chloride Lvl (test code = Chloride Lvl) 100 95-109 [facility]2014-08-03 20:50:00 Test Item Value Reference Range Interpretation Comments Sodium Lvl (test code = Sodium Lvl) 135 135-145 [facility]2014-08-03 20:50:00 Test Item Value Reference Range Interpretation Comments Potassium Lvl (test code = Potassium 4.9 3.5-5.1 Lvl) [facility]2014-08-03 20:50:00 Test Item Value Reference Range Interpretation Comments Glucose Lvl (test code = Glucose Lvl) 240 70-99 [facility]2014-08-03 20:50:00 Test Item Value Reference Range Interpretation Comments BUN (test code = BUN) 25 7-22 [facility]2014-08-03 20:50:00 Test Item Value Reference Range Interpretation Comments CO2 (test code = CO2) 29 24-32 [facility]2014-08-03 20:50:00 Test Item Value Reference Range Interpretation Comments AGAP (test code = AGAP) 10.9 10.0-20.0 [facility]2014-08-03 20:50:00 Test Item Value Reference Range Interpretation Comments Creatinine Lvl (test code = Creatinine 1.2 0.5-1.4 Lvl) [facility]2014-08-03 20:50:00 Test Item Value Reference Range Interpretation Comments Calcium Lvl (test code = Calcium Lvl) 9.3 8.5-10.5 [facility] TempleKuceiefIGCVIKEMCD5256-04-63 20:50:00 Test Item Value Reference Range Interpretation Comments MPV (test code = MPV) 9.6 7.4-10.4 [facility] TempleYfecfurKEBAKRQKBJ6968-45-42 20:50:00 Test Item Value Reference Range Interpretation Comments WBC (test code = WBC) 9.7 3.7-10.4 [facility] TempleDkmnxqzLTTLKJTGMZ9792-80-33 20:50:00 Test Item Value Reference Range Interpretation Comments RDW (test code = RDW) 13.8 11.5-14.5 [facility] TempleYtjdvfnYHHASSBDSN8605-30-63 20:50:00 Test Item Value Reference Range Interpretation Comments MCHC (test code = MCHC) 32.9 32.0-36.0 [facility] TempleItjbuktWVDPQKDRQX4793-24-06 20:50:00 Test Item Value Reference Range Interpretation Comments RBC (test code = RBC) 4.95 4.20-5.40 [place] 194554-08-03 20:50:00 Test Item Value Reference Range Interpretation Comments MCV (test code = MCV) 82.4 81.0-99.0 [facility] TempleGjhspbwNJGHBMCRQV4528-92-74 20:50:00 Test Item Value Reference Range Interpretation Comments Hgb (test code = Hgb) 13.4 12.0-16.0 [facility] TempleDfubtgfDHTAFSCAWK2310-73-06 20:50:00 Test Item Value Reference Range Interpretation Comments Platelet (test code = Platelet) 275 133-450 [facility] TempleIdckcqnNQHBRYJYTS5852-59-10 20:50:00 Test Item Value Reference Range Interpretation Comments Hct (test code = Hct) 40.8 36.0-48.0 [facility] TempleJnsuwzyLYBAUBRFAB1309-79-77 20:50:00 Test Item Value Reference Range Interpretation Comments MCH (test code = MCH) 27.1 pg 27.0-31.0 [facility] TempleBirfpptBEQBDWMYGL6761-79-97 20:50:00 Test Item Value Reference Range Interpretation Comments Monocytes # (test code 0.3 See_Comment [Aut omated message] The = Monocytes #) system which generated this result tra nsmitted reference range : <=0.8. The reference r eric was not used to int erpret this result as normal/abnormal . [facility] TempleGbwrhqbEROTIDZLUF2757-46-34 20:50:00 Test Item Value Reference Range Interpretation Comments Basophils # (test code 0.0 See_Comment [Aut omated message] The = Basophils #) system which generated this result tra nsmitted reference range : <=0.2. The reference r eric was not used to int erpret this result as normal/abnormal . [facility] TempleEcvstzfNBVLHUUASW3565-16-31 20:50:00 Test Item Value Reference Range Interpretation Comments Eosinophils # (test code 0.0 See_Comment [A utomated message] The = Eosinophils #) system whic h generated this result tra nsmitted reference range : <=0.5. The reference r eric was not used to int erpret this result as normal/abnormal . [facility] TemplePgurbirSZJHSPMERA9776-74-46 20:50:00 Test Item Value Reference Range Interpretation Comments Segs-Bands # (test code = Segs-Bands #) 8.7 1.5-8.1 [facility] TempleHtncnfkZYKKIGXDGU4752-38-45 20:50:00 Test Item Value Reference Range Interpretation Comments Lymphocytes # (test code = Lymphocytes 0.8 1.0-5.5 #) [facility] TempleDgrnrviNNTMHQXZBR5835-01-94 20:50:00 Test Item Value Reference Range Interpretation Comments Eosinophils (test code = 0.0 See_Comment [A utomated message] The Eosinophils) system which ge nerated this result tra nsmitted reference range : <=4.0. The reference r eric was not used to int erpret this result as normal/abnormal . [facility] TempleUislxnoQQLSTEZXST8838-07-63 20:50:00 Test Item Value Reference Range Interpretation Comments Basophils (test code = 0.2 See_Comment [Aut omated message] The Basophils) system which ge nerated this result tra nsmitted reference range : <=1.0. The reference r eric was not used to int erpret this result as normal/abnormal . [facility] TempleCiiuuurLWUFJABRAP7104-05-41 20:50:00 Test Item Value Reference Range Interpretation Comments Monocytes (test code = Monocytes) 2.7 2.0-12.0 [facility] TempleEeokiwhDLLXKRXUMO8728-24-04 20:50:00 Test Item Value Reference Range Interpretation Comments Lymphocytes (test code = Lymphocytes) 8.1 20.0-40.0 [facility] TempleAcsjxxlKASAYPMVHH1664-00-22 20:50:00 Test Item Value Reference Range Interpretation Comments Segs (test code = Segs) 89.0 45.0-75.0 [facility]2014-08-03 20:50:00 Test Item Value Reference Range Interpretation Comments Magnesium Lvl (test code = Magnesium 1.5 1.8-2.4 Lvl) [facility]2014-08-03 20:50:00 Test Item Value Reference Range Interpretation Comments Phosphorus (test code = Phosphorus) 3.5 2.5-4.5 [facility]2014-08-03 20:50:00 Test Item Value Reference Range Interpretation Comments eGFR (test code = eGFR) 47 [facility]2014-08-03 20:50:00 Test Item Value Reference Range Interpretation Comments Chloride Lvl (test code = Chloride Lvl) 100 95-109 [facility]2014-08-03 20:50:00 Test Item Value Reference Range Interpretation Comments Sodium Lvl (test code = Sodium Lvl) 135 135-145 [facility]2014-08-03 20:50:00 Test Item Value Reference Range Interpretation Comments Potassium Lvl (test code = Potassium 4.9 3.5-5.1 Lvl) [facility]2014-08-03 20:50:00 Test Item Value Reference Range Interpretation Comments Glucose Lvl (test code = Glucose Lvl) 240 70-99 [facility]2014-08-03 20:50:00 Test Item Value Reference Range Interpretation Comments BUN (test code = BUN) 25 7-22 [place] 902384-08-03 20:50:00 Test Item Value Reference Range Interpretation Comments CO2 (test code = CO2) 29 24-32 [facility]2014-08-03 20:50:00 Test Item Value Reference Range Interpretation Comments AGAP (test code = AGAP) 10.9 10.0-20.0 [facility]2014-08-03 20:50:00 Test Item Value Reference Range Interpretation Comments Creatinine Lvl (test code = Creatinine 1.2 0.5-1.4 Lvl) [facility]2014-08-03 20:50:00 Test Item Value Reference Range Interpretation Comments Calcium Lvl (test code = Calcium Lvl) 9.3 8.5-10.5 [facility] TempleXuytzaxWMPAHXLDHR4419-69-80 20:50:00 Test Item Value Reference Range Interpretation Comments MPV (test code = MPV) 9.6 7.4-10.4 [facility] TempleKilivrtJUKXXSMHJW1628-65-72 20:50:00 Test Item Value Reference Range Interpretation Comments WBC (test code = WBC) 9.7 3.7-10.4 [facility] TempleFcyqfkzXMLRNPOHWS9658-08-09 20:50:00 Test Item Value Reference Range Interpretation Comments RDW (test code = RDW) 13.8 11.5-14.5 [facility] TempleOyuacqiYVMHKPZTOK5498-05-02 20:50:00 Test Item Value Reference Range Interpretation Comments MCHC (test code = MCHC) 32.9 32.0-36.0 [facility] TempleKeflsptHKXLOOVGPP5330-82-28 20:50:00 Test Item Value Reference Range Interpretation Comments RBC (test code = RBC) 4.95 4.20-5.40 [place] 194554-08-03 20:50:00 Test Item Value Reference Range Interpretation Comments MCV (test code = MCV) 82.4 81.0-99.0 [facility] TempleRhzjulfNSWNYZZPGN3342-51-37 20:50:00 Test Item Value Reference Range Interpretation Comments Hgb (test code = Hgb) 13.4 12.0-16.0 [facility] TemplePmlovgqXHKGXSBSBJ6572-34-35 20:50:00 Test Item Value Reference Range Interpretation Comments Platelet (test code = Platelet) 275 133-450 [facility] TempleZqqzulwGLVFYHNNLQ2719-85-01 20:50:00 Test Item Value Reference Range Interpretation Comments Hct (test code = Hct) 40.8 36.0-48.0 [facility] TempleUafiwfaFBENTXHCJZ3715-31-20 20:50:00 Test Item Value Reference Range Interpretation Comments MCH (test code = MCH) 27.1 pg 27.0-31.0 [facility] TempleFdxiemfQQIJNYBYLW4444-51-35 20:50:00 Test Item Value Reference Range Interpretation Comments Monocytes # (test code 0.3 See_Comment [Aut omated message] The = Monocytes #) system which generated this result tra nsmitted reference range : <=0.8. The reference r eric was not used to int erpret this result as normal/abnormal . [facility] TempleUmuaedrDVZXTYVAJP3511-82-76 20:50:00 Test Item Value Reference Range Interpretation Comments Basophils # (test code 0.0 See_Comment [Aut omated message] The = Basophils #) system which generated this result tra nsmitted reference range : <=0.2. The reference r eric was not used to int erpret this result as normal/abnormal . [facility] TempleZwwkhbtZIQTWGBLZX2759-03-93 20:50:00 Test Item Value Reference Range Interpretation Comments Eosinophils # (test code 0.0 See_Comment [A utomated message] The = Eosinophils #) system whic h generated this result tra nsmitted reference range : <=0.5. The reference r eric was not used to int erpret this result as normal/abnormal . [facility] TempleHgjwndrSWRVZMESNU2896-69-33 20:50:00 Test Item Value Reference Range Interpretation Comments Segs-Bands # (test code = Segs-Bands #) 8.7 1.5-8.1 [facility] TempleClwdenkGYTKCRLKZZ3103-48-76 20:50:00 Test Item Value Reference Range Interpretation Comments Lymphocytes # (test code = Lymphocytes 0.8 1.0-5.5 #) [facility] TempleDdsjhgiRBQNZLZPKL5266-43-78 20:50:00 Test Item Value Reference Range Interpretation Comments Eosinophils (test code = 0.0 See_Comment [A utomated message] The Eosinophils) system which ge nerated this result tra nsmitted reference range : <=4.0. The reference r eric was not used to int erpret this result as normal/abnormal . [facility] TempleSjrnpepSATEGDRSVW6275-30-48 20:50:00 Test Item Value Reference Range Interpretation Comments Basophils (test code = 0.2 See_Comment [Aut omated message] The Basophils) system which ge nerated this result tra nsmitted reference range : <=1.0. The reference r eric was not used to int erpret this result as normal/abnormal . [facility] TempleAslhxmhWJMDIJDRJQ7052-20-09 20:50:00 Test Item Value Reference Range Interpretation Comments Monocytes (test code = Monocytes) 2.7 2.0-12.0 [facility] TempleYabzdhjRNZVYYCKUT4905-58-13 20:50:00 Test Item Value Reference Range Interpretation Comments Lymphocytes (test code = Lymphocytes) 8.1 20.0-40.0 [facility] TempleRpzoibyJIQXTXHNBZ6831-18-72 20:50:00 Test Item Value Reference Range Interpretation Comments Segs (test code = Segs) 89.0 45.0-75.0 [facility]2014-08-01 08:38:00 Test Item Value Reference Range Interpretation Comments eGFR (test code = eGFR) 52 [facility]2014-08-01 08:38:00 Test Item Value Reference Range Interpretation Comments Chloride Lvl (test code = Chloride Lvl) 99 95-109 [facility]2014-08-01 08:38:00 Test Item Value Reference Range Interpretation Comments CO2 (test code = CO2) 29 24-32 [facility]2014-08-01 08:38:00 Test Item Value Reference Range Interpretation Comments Glucose Lvl (test code = Glucose Lvl) 309 70-99 [facility]2014-08-01 08:38:00 Test Item Value Reference Range Interpretation Comments Calcium Lvl (test code = Calcium Lvl) 8.9 8.5-10.5 [facility]2014-08-01 08:38:00 Test Item Value Reference Range Interpretation Comments BUN (test code = BUN) 27 7-22 [facility]2014-08-01 08:38:00 Test Item Value Reference Range Interpretation Comments Sodium Lvl (test code = Sodium Lvl) 135 135-145 [place] 902384-08-01 08:38:00 Test Item Value Reference Range Interpretation Comments Creatinine Lvl (test code = Creatinine 1.1 0.5-1.4 Lvl) [facility]2014-08-01 08:38:00 Test Item Value Reference Range Interpretation Comments Potassium Lvl (test code = Potassium 4.7 3.5-5.1 Lvl) [facility]2014-08-01 08:38:00 Test Item Value Reference Range Interpretation Comments Total Protein (test code = Total 6.5 6.4-8.4 Protein) [facility]2014-08-01 08:38:00 Test Item Value Reference Range Interpretation Comments Albumin Lvl (test code = Albumin Lvl) 2.6 3.5-5.0 [facility]2014-08-01 08:38:00 Test Item Value Reference Range Interpretation Comments ALT (test code = ALT) 15 See_Comment [Auto mated message] The system which ge nerated this result transmit thelma reference range : <=65. The reference range was not used to interpr et this result as zana l/abnormal. [facility]2014-08-01 08:38:00 Test Item Value Reference Range Interpretation Comments AST (test code = AST) 10 See_Comment [Auto mated message] The system which ge nerated this result transmit thelma reference range : <=37. The reference range was not used to interpr et this result as zana l/abnormal. [facility]2014-08-01 08:38:00 Test Item Value Reference Range Interpretation Comments Alk Phos (test code = Alk Phos) 41 39-136 [facility]2014-08-01 08:38:00 Test Item Value Reference Range Interpretation Comments Bili Total (test code = Bili Total) 0.4 0.2-1.3 [facility]2014-08-01 08:38:00 Test Item Value Reference Range Interpretation Comments A/G Ratio (test code = A/G Ratio) 0.7 0.7-1.6 [facility]2014-08-01 08:38:00 Test Item Value Reference Range Interpretation Comments Globulin (test code = Globulin) 3.9 2.0-4.0 [facility]2014-08-01 08:38:00 Test Item Value Reference Range Interpretation Comments B/C Ratio (test code = B/C Ratio) 25 6-25 [facility]2014-08-01 08:38:00 Test Item Value Reference Range Interpretation Comments AGAP (test code = AGAP) 11.7 10.0-20.0 [facility]2014-08-01 08:38:00 Test Item Value Reference Range Interpretation Comments Magnesium Lvl (test code = Magnesium 1.8 1.8-2.4 Lvl) [facility]2014-08-01 08:38:00 Test Item Value Reference Range Interpretation Comments Phosphorus (test code = Phosphorus) 2.4 2.5-4.5 [facility] TempleYunybwqWMPCZERWBP8846-18-53 08:38:00 Test Item Value Reference Range Interpretation Comments WBC (test code = WBC) 18.1 3.7-10.4 [facility] TempleVxziyckBZQGEJGKBZ5223-47-11 08:38:00 Test Item Value Reference Range Interpretation Comments Platelet (test code = Platelet) 248 133-450 [facility] TempleCxolqwjJFJFDDQEAP3485-00-06 08:38:00 Test Item Value Reference Range Interpretation Comments RDW (test code = RDW) 13.8 11.5-14.5 [facility] TempleFrbekitVCHRQTEBNE5562-71-69 08:38:00 Test Item Value Reference Range Interpretation Comments MCHC (test code = MCHC) 32.2 32.0-36.0 [facility] TempleKsxhsucBMJJMHHGOM9503-38-08 08:38:00 Test Item Value Reference Range Interpretation Comments MCH (test code = MCH) 26.8 pg 27.0-31.0 [facility] TempleArgopgiZMBCWDSBOZ4849-23-99 08:38:00 Test Item Value Reference Range Interpretation Comments Hct (test code = Hct) 37.1 36.0-48.0 [facility] TempleFmlkjrgBAFXXUTNKU7736-67-18 08:38:00 Test Item Value Reference Range Interpretation Comments MCV (test code = MCV) 83.2 81.0-99.0 [facility] TempleRjeumoxGOCXUGNZPD9700-96-88 08:38:00 Test Item Value Reference Range Interpretation Comments RBC (test code = RBC) 4.47 4.20-5.40 [facility] TempleDgwsnqwKLZFMHTJJV5079-48-03 08:38:00 Test Item Value Reference Range Interpretation Comments Hgb (test code = Hgb) 12.0 12.0-16.0 [facility] TempleIvgyvtdJMTDEYSUUJ0797-38-54 08:38:00 Test Item Value Reference Range Interpretation Comments MPV (test code = MPV) 9.0 7.4-10.4 [facility] TempleAkvcqxnPKUAOOPINJ8193-33-53 08:38:00 Test Item Value Reference Range Interpretation Comments Basophils # (test code 0.0 See_Comment [Aut omated message] The = Basophils #) system which generated this result tra nsmitted reference range : <=0.2. The reference r eric was not used to int erpret this result as normal/abnormal . [facility] TempleIfzeyuyIBGSIBUAOM0003-06-98 08:38:00 Test Item Value Reference Range Interpretation Comments Toxic Gran (test code Slight *ABN*(04/14/14 = Toxic Gran) 3:38 AM) [facility] TempleLxymtnfOOBHSRPLTK5380-37-52 08:38:00 Test Item Value Reference Range Interpretation Comments Monocytes # (test code 0.3 See_Comment [Aut omated message] The = Monocytes #) system which generated this result tra nsmitted reference range : <=0.8. The reference r eric was not used to int erpret this result as normal/abnormal . [facility] TempleYqtgsdgWZMQETNTQP3704-07-11 08:38:00 Test Item Value Reference Range Interpretation Comments Eosinophils # (test code 0.0 See_Comment [A utomated message] The = Eosinophils #) system whic h generated this result tra nsmitted reference range : <=0.5. The reference r eric was not used to int erpret this result as normal/abnormal . [facility] TempleZpovsonNKLVQWVQRC0640-58-03 08:38:00 Test Item Value Reference Range Interpretation Comments Segs-Bands # (test code = Segs-Bands #) 17.2 1.5-8.1 [facility] TempleKllmgvqSESJHRAECI1529-44-81 08:38:00 Test Item Value Reference Range Interpretation Comments Lymphocytes # (test code = Lymphocytes 0.6 1.0-5.5 #) [facility]UxihtjwOEJONBODGO3979-38-79 08:38:00 Test Item Value Reference Range Interpretation Comments Basophils (test code = 0.1 See_Comment [Aut omated message] The Basophils) system which ge nerated this result tra nsmitted reference range : <=1.0. The reference r eric was not used to int erpret this result as normal/abnormal . [facility] MichiganJufvynuQJNJREFQRV2114-67-17 08:38:00 Test Item Value Reference Range Interpretation Comments Segs (test code = Segs) 94.6 45.0-75.0 [facility] TempleInbumlgFYTGRTWRKE0858-40-05 08:38:00 Test Item Value Reference Range Interpretation Comments Lymphocytes (test code = Lymphocytes) 3.5 20.0-40.0 [facility] MichiganFuemgdlFKYRMOTROD7762-20-26 08:38:00 Test Item Value Reference Range Interpretation Comments Monocytes (test code = Monocytes) 1.8 2.0-12.0 [facility] MichiganUzwuzalYIJGCUBKWB1139-92-26 08:38:00 Test Item Value Reference Range Interpretation Comments Eosinophils (test code = 0.0 See_Comment [A utomated message] The Eosinophils) system which ge nerated this result tra nsmitted reference range : <=4.0. The reference r eric was not used to int erpret this result as normal/abnormal . [facility] MichiganYudkdkqPPCXWEIMTY6411-10-45 08:38:00 Test Item Value Reference Range Interpretation Comments Plt Morph (test code = Normal (04/14/14 3:38 AM) Plt Morph) [facility] MichiganFqdlgiwWYWFYKCMMD7781-69-61 08:38:00 Test Item Value Reference Range Interpretation Comments RBC Morph (test code = Normal (04/14/14 3:38 AM) RBC Morph) [facility] WVEODZJUF2178-85-44 08:38:00 Test Item Value Reference Range Interpretation Comments Hgb A1C (test code = Hgb A1C) 8.[address] [facility] N[facility]4200[facility]60 08:38:00 Test Item Value Reference Range Interpretation Comments eGFR (test code = eGFR) 52 [facility] JKMXJ5057-74-75 08:38:00 Test Item Value Reference Range Interpretation Comments Chloride Lvl (test code = Chloride Lvl) 99 95-109 [facility] QGXOC7999-09-25 08:38:00 Test Item Value Reference Range Interpretation Comments CO2 (test code = CO2) 29 24-32 [facility]2014-08-01 08:38:00 Test Item Value Reference Range Interpretation Comments Glucose Lvl (test code = Glucose Lvl) 309 70-99 [place] 902384-08-01 08:38:00 Test Item Value Reference Range Interpretation Comments Calcium Lvl (test code = Calcium Lvl) 8.9 8.5-10.5 [place] 902384-08-01 08:38:00 Test Item Value Reference Range Interpretation Comments BUN (test code = BUN) 27 7-22 [facility]2014-08-01 08:38:00 Test Item Value Reference Range Interpretation Comments Sodium Lvl (test code = Sodium Lvl) 135 135-145 [facility]2014-08-01 08:38:00 Test Item Value Reference Range Interpretation Comments Creatinine Lvl (test code = Creatinine 1.1 0.5-1.4 Lvl) [facility]2014-08-01 08:38:00 Test Item Value Reference Range Interpretation Comments Potassium Lvl (test code = Potassium 4.7 3.5-5.1 Lvl) [facility]2014-08-01 08:38:00 Test Item Value Reference Range Interpretation Comments Total Protein (test code = Total 6.5 6.4-8.4 Protein) [facility]2014-08-01 08:38:00 Test Item Value Reference Range Interpretation Comments Albumin Lvl (test code = Albumin Lvl) 2.6 3.5-5.0 [facility]2014-08-01 08:38:00 Test Item Value Reference Range Interpretation Comments ALT (test code = ALT) 15 See_Comment [Auto mated message] The system which ge nerated this result transmit thelma reference range : <=65. The reference range was not used to interpr et this result as zana l/abnormal. [facility]2014-08-01 08:38:00 Test Item Value Reference Range Interpretation Comments AST (test code = AST) 10 See_Comment [Auto mated message] The system which ge nerated this result transmit thelma reference range : <=37. The reference range was not used to interpr et this result as zana l/abnormal. [facility]2014-08-01 08:38:00 Test Item Value Reference Range Interpretation Comments Alk Phos (test code = Alk Phos) 41 39-136 [facility]2014-08-01 08:38:00 Test Item Value Reference Range Interpretation Comments Bili Total (test code = Bili Total) 0.4 0.2-1.3 [facility]2014-08-01 08:38:00 Test Item Value Reference Range Interpretation Comments A/G Ratio (test code = A/G Ratio) 0.7 0.7-1.6 [facility]2014-08-01 08:38:00 Test Item Value Reference Range Interpretation Comments Globulin (test code = Globulin) 3.9 2.0-4.0 [facility]2014-08-01 08:38:00 Test Item Value Reference Range Interpretation Comments B/C Ratio (test code = B/C Ratio) 25 6-25 [facility]2014-08-01 08:38:00 Test Item Value Reference Range Interpretation Comments AGAP (test code = AGAP) 11.7 10.0-20.0 [facility]2014-08-01 08:38:00 Test Item Value Reference Range Interpretation Comments Magnesium Lvl (test code = Magnesium 1.8 1.8-2.4 Lvl) [facility]2014-08-01 08:38:00 Test Item Value Reference Range Interpretation Comments Phosphorus (test code = Phosphorus) 2.4 2.5-4.5 [facility] TempleUhdirfbLZUUTXZXCA7538-36-30 08:38:00 Test Item Value Reference Range Interpretation Comments WBC (test code = WBC) 18.1 3.7-10.4 [facility] TempleFztmbfmGTAOYLBVOR5821-96-19 08:38:00 Test Item Value Reference Range Interpretation Comments Platelet (test code = Platelet) 248 133-450 [facility] TempleMjfxtjoFEQLAXXWDJ9321-18-02 08:38:00 Test Item Value Reference Range Interpretation Comments RDW (test code = RDW) 13.8 11.5-14.5 [facility] TempleSigqhneKNGNITBBEZ8252-29-88 08:38:00 Test Item Value Reference Range Interpretation Comments MCHC (test code = MCHC) 32.2 32.0-36.0 [facility] TempleUbqcvobIZZVQSRBDT8943-02-83 08:38:00 Test Item Value Reference Range Interpretation Comments MCH (test code = MCH) 26.8 pg 27.0-31.0 [facility] TempleEaixpqrMLGJLYOIPZ7082-74-59 08:38:00 Test Item Value Reference Range Interpretation Comments Hct (test code = Hct) 37.1 36.0-48.0 [facility] TempleVdgvnltFQEZORRQQK8631-69-04 08:38:00 Test Item Value Reference Range Interpretation Comments MCV (test code = MCV) 83.2 81.0-99.0 [facility] TempleXjxywrmKYEDQFNMRM2262-29-82 08:38:00 Test Item Value Reference Range Interpretation Comments RBC (test code = RBC) 4.47 4.20-5.40 [facility] TempleQciexgcYQPGFPPCFC6485-72-86 08:38:00 Test Item Value Reference Range Interpretation Comments Hgb (test code = Hgb) 12.0 12.0-16.0 [facility] TempleBnajqvtRCDSENZZXH9724-17-26 08:38:00 Test Item Value Reference Range Interpretation Comments MPV (test code = MPV) 9.0 7.4-10.4 [facility] TempleChsqudiONKKKCZIFE0648-89-46 08:38:00 Test Item Value Reference Range Interpretation Comments Basophils # (test code 0.0 See_Comment [Aut omated message] The = Basophils #) system which generated this result tra nsmitted reference range : <=0.2. The reference r eric was not used to int erpret this result as normal/abnormal . [facility] TempleSwueqshEVYVOXMPIF1374-29-32 08:38:00 Test Item Value Reference Range Interpretation Comments Toxic Gran (test code Slight *ABN*(04/14/14 = Toxic Gran) 3:38 AM) [facility] TempleVeafoohNLIYUQKPWV7746-50-65 08:38:00 Test Item Value Reference Range Interpretation Comments Monocytes # (test code 0.3 See_Comment [Aut omated message] The = Monocytes #) system which generated this result tra nsmitted reference range : <=0.8. The reference r eric was not used to int erpret this result as normal/abnormal . [facility] TempleDbvkhrnSDDAQZZRSC8219-61-78 08:38:00 Test Item Value Reference Range Interpretation Comments Eosinophils # (test code 0.0 See_Comment [A utomated message] The = Eosinophils #) system whic h generated this result tra nsmitted reference range : <=0.5. The reference r erci was not used to int erpret this result as normal/abnormal . [facility] TempleMshacadCUJHIFYVBS1792-37-34 08:38:00 Test Item Value Reference Range Interpretation Comments Segs-Bands # (test code = Segs-Bands #) 17.2 1.5-8.1 [facility] TempleXvsprntIWPDQKGSET0339-74-34 08:38:00 Test Item Value Reference Range Interpretation Comments Lymphocytes # (test code = Lymphocytes 0.6 1.0-5.5 #) [facility] TempleCmopktwSMUQIPNNGH1598-92-65 08:38:00 Test Item Value Reference Range Interpretation Comments Basophils (test code = 0.1 See_Comment [Aut omated message] The Basophils) system which ge nerated this result tra nsmitted reference range : <=1.0. The reference r eric was not used to int erpret this result as normal/abnormal . [facility] TempleYvnrrmzPOZUTOICHR8104-72-75 08:38:00 Test Item Value Reference Range Interpretation Comments Segs (test code = Segs) 94.6 45.0-75.0 [facility] TempleTthtjrbNLAGELBHQB2356-49-38 08:38:00 Test Item Value Reference Range Interpretation Comments Lymphocytes (test code = Lymphocytes) 3.5 20.0-40.0 [facility] TempleNpaghqsCLEPDJVHMR8274-12-68 08:38:00 Test Item Value Reference Range Interpretation Comments Monocytes (test code = Monocytes) 1.8 2.0-12.0 [facility] TempleInyobldWDHAVNIWGE3660-53-71 08:38:00 Test Item Value Reference Range Interpretation Comments Eosinophils (test code = 0.0 See_Comment [A utomated message] The Eosinophils) system which ge nerated this result tra nsmitted reference range : <=4.0. The reference r eric was not used to int erpret this result as normal/abnormal . [facility] TempleJkbnbkoWWWELUAWUY1903-73-66 08:38:00 Test Item Value Reference Range Interpretation Comments Plt Morph (test code = Normal (04/14/14 3:38 AM) Plt Morph) [facility] TempleTvagyqcSVUVXHSWTT0587-69-83 08:38:00 Test Item Value Reference Range Interpretation Comments RBC Morph (test code = Normal (04/14/14 3:38 AM) RBC Morph) [facility] SPZBSLARX6636-33-66 08:38:00 Test Item Value Reference Range Interpretation Comments Hgb A1C (test code = Hgb A1C) 8.3 [facility]2014-08-01 08:38:00 Test Item Value Reference Range Interpretation Comments eGFR (test code = eGFR) 52 [facility]2014-08-01 08:38:00 Test Item Value Reference Range Interpretation Comments Chloride Lvl (test code = Chloride Lvl) 99 95-109 [facility]2014-08-01 08:38:00 Test Item Value Reference Range Interpretation Comments CO2 (test code = CO2) 29 24-32 [facility]2014-08-01 08:38:00 Test Item Value Reference Range Interpretation Comments Glucose Lvl (test code = Glucose Lvl) 309 70-99 [facility]2014-08-01 08:38:00 Test Item Value Reference Range Interpretation Comments Calcium Lvl (test code = Calcium Lvl) 8.9 8.5-10.5 [facility]2014-08-01 08:38:00 Test Item Value Reference Range Interpretation Comments BUN (test code = BUN) 27 7-22 [facility]2014-08-01 08:38:00 Test Item Value Reference Range Interpretation Comments Sodium Lvl (test code = Sodium Lvl) 135 135-145 [facility]2014-08-01 08:38:00 Test Item Value Reference Range Interpretation Comments Creatinine Lvl (test code = Creatinine 1.1 0.5-1.4 Lvl) [facility]2014-08-01 08:38:00 Test Item Value Reference Range Interpretation Comments Potassium Lvl (test code = Potassium 4.7 3.5-5.1 Lvl) [facility]2014-08-01 08:38:00 Test Item Value Reference Range Interpretation Comments Total Protein (test code = Total 6.5 6.4-8.4 Protein) [facility]2014-08-01 08:38:00 Test Item Value Reference Range Interpretation Comments Albumin Lvl (test code = Albumin Lvl) 2.6 3.5-5.0 [facility]2014-08-01 08:38:00 Test Item Value Reference Range Interpretation Comments ALT (test code = ALT) 15 See_Comment [Auto mated message] The system which ge nerated this result transmit thelma reference range : <=65. The reference range was not used to interpr et this result as zana l/abnormal. [facility]2014-08-01 08:38:00 Test Item Value Reference Range Interpretation Comments AST (test code = AST) 10 See_Comment [Auto mated message] The system which ge nerated this result transmit thelma reference range : <=37. The reference range was not used to interpr et this result as zana l/abnormal. [facility]2014-08-01 08:38:00 Test Item Value Reference Range Interpretation Comments Alk Phos (test code = Alk Phos) 41 39-136 [facility] CenterCirrus WorksATRIUM HEALTH PROVIDENCEYKEPX4107-55-93 08:38:00 Test Item Value Reference Range Interpretation Comments Bili Total (test code = Bili Total) 0.4 0.2-1.3 [facility]2014-08-01 08:38:00 Test Item Value Reference Range Interpretation Comments A/G Ratio (test code = A/G Ratio) 0.7 0.7-1.6 [facility]2014-08-01 08:38:00 Test Item Value Reference Range Interpretation Comments Globulin (test code = Globulin) 3.9 2.0-4.0 [facility]2014-08-01 08:38:00 Test Item Value Reference Range Interpretation Comments B/C Ratio (test code = B/C Ratio) 25 6-25 [facility] CenterInter[facility] Safety [id number] 08:38:00 Test Item Value Reference Range Interpretation Comments AGAP (test code = AGAP) 11.7 10.0-20.0 [facility] Center[facility] WKYHF9398-79-55 08:38:00 Test Item Value Reference Range Interpretation Comments Magnesium Lvl (test code = Magnesium 1.8 1.8-2.4 Lvl) [facility]2014-08-01 08:38:00 Test Item Value Reference Range Interpretation Comments Phosphorus (test code = Phosphorus) 2.4 2.5-4.5 [facility] TempleHpppjavCAQSGIWTKO2140-19-49 08:38:00 Test Item Value Reference Range Interpretation Comments WBC (test code = WBC) 18.1 3.7-10.4 [facility] TempleBetxgheZLKSBGWMCA3339-25-97 08:38:00 Test Item Value Reference Range Interpretation Comments Platelet (test code = Platelet) 248 133-450 [facility] TempleIpbcthhAXGRTMKTZS7679-05-05 08:38:00 Test Item Value Reference Range Interpretation Comments RDW (test code = RDW) 13.8 11.5-14.5 [facility] TempleEechrowNZKNJBNXQK3406-47-05 08:38:00 Test Item Value Reference Range Interpretation Comments MCHC (test code = MCHC) 32.2 32.0-36.0 [facility] TempleVvjwydlNKFTLVQVGC4814-31-35 08:38:00 Test Item Value Reference Range Interpretation Comments MCH (test code = MCH) 26.8 pg 27.0-31.0 [facility] TempleFztbyjoKKXDDTQZSO6717-60-93 08:38:00 Test Item Value Reference Range Interpretation Comments Hct (test code = Hct) 37.1 36.0-48.0 [facility] TempleCuuvhweGIATNPWIUO8084-72-12 08:38:00 Test Item Value Reference Range Interpretation Comments MCV (test code = MCV) 83.2 81.0-99.0 [facility] TempleKupukttGCENZADHXG7715-85-79 08:38:00 Test Item Value Reference Range Interpretation Comments RBC (test code = RBC) 4.47 4.20-5.40 [facility] TempleOfusuzhBLPLRGIFWH0567-01-30 08:38:00 Test Item Value Reference Range Interpretation Comments Hgb (test code = Hgb) 12.0 12.0-16.0 [facility] TempleFwjccrqFYKVWCDQQT1315-36-39 08:38:00 Test Item Value Reference Range Interpretation Comments MPV (test code = MPV) 9.0 7.4-10.4 [facility] TempleIpdxgxbLIQOJKHLLC5278-39-92 08:38:00 Test Item Value Reference Range Interpretation Comments Basophils # (test code 0.0 See_Comment [Aut omated message] The = Basophils #) system which generated this result tra nsmitted reference range : <=0.2. The reference r eric was not used to int erpret this result as normal/abnormal . [facility] TempleMlqdcxyJMSDKYXTLC0075-00-12 08:38:00 Test Item Value Reference Range Interpretation Comments Toxic Gran (test code Slight *ABN*(04/14/14 = Toxic Gran) 3:38 AM) [facility] TempleCdxslijXMHVLWJYZL9696-05-51 08:38:00 Test Item Value Reference Range Interpretation Comments Monocytes # (test code 0.3 See_Comment [Aut omated message] The = Monocytes #) system which generated this result tra nsmitted reference range : <=0.8. The reference r eric was not used to int erpret this result as normal/abnormal . [facility] TempleLfgakmfFJXSKPSQHG8133-44-70 08:38:00 Test Item Value Reference Range Interpretation Comments Eosinophils # (test code 0.0 See_Comment [A utomated message] The = Eosinophils #) system whic h generated this result tra nsmitted reference range : <=0.5. The reference r eric was not used to int erpret this result as normal/abnormal . [facility] TempleJuoqvaxVWMVLTJJRA0818-18-54 08:38:00 Test Item Value Reference Range Interpretation Comments Segs-Bands # (test code = Segs-Bands #) 17.2 1.5-8.1 [facility] TempleQprylgjYMURLLPXPI5682-46-29 08:38:00 Test Item Value Reference Range Interpretation Comments Lymphocytes # (test code = Lymphocytes 0.6 1.0-5.5 #) [facility] TempleDzxucseTCMOBEOLPN2601-63-53 08:38:00 Test Item Value Reference Range Interpretation Comments Basophils (test code = 0.1 See_Comment [Aut omated message] The Basophils) system which ge nerated this result tra nsmitted reference range : <=1.0. The reference r eric was not used to int erpret this result as normal/abnormal . [facility] TempleLeebnnkYFXRVLILGT2336-09-42 08:38:00 Test Item Value Reference Range Interpretation Comments Segs (test code = Segs) 94.6 45.0-75.0 [facility] TempleVbvifojEVXXTOMNPE4096-72-11 08:38:00 Test Item Value Reference Range Interpretation Comments Lymphocytes (test code = Lymphocytes) 3.5 20.0-40.0 [facility] TempleDqrcylrNSZXNLAWLA8462-59-37 08:38:00 Test Item Value Reference Range Interpretation Comments Monocytes (test code = Monocytes) 1.8 2.0-12.0 [facility] TempleSkainnjMLEERXYJCW5734-83-74 08:38:00 Test Item Value Reference Range Interpretation Comments Eosinophils (test code = 0.0 See_Comment [A utomated message] The Eosinophils) system which ge nerated this result tra nsmitted reference range : <=4.0. The reference r eric was not used to int erpret this result as normal/abnormal . [facility]LgiazhsXSYGBYIKES3582-03-88 08:38:00 Test Item Value Reference Range Interpretation Comments Plt Morph (test code = Normal (04/14/14 3:38 AM) Plt Morph) [facility] MichiganFfyhaxwIQSNTMBRKH5665-45-88 08:38:00 Test Item Value Reference Range Interpretation Comments RBC Morph (test code = Normal (04/14/14 3:38 AM) RBC Morph) [facility] IOJNGHDMJ6194-96-10 08:38:00 Test Item Value Reference Range Interpretation Comments Hgb A1C (test code = Hgb A1C) 8.3 [facility] UNZZQ9454-18-99 07:30:00 Test Item Value Reference Range Interpretation Comments Magnesium Lvl (test code = Magnesium 1.8 1.8-2.4 Lvl) [facility]2014-07-31 07:30:00 Test Item Value Reference Range Interpretation Comments Phosphorus (test code = Phosphorus) 3.4 2.5-4.5 [facility]2014-07-31 07:30:00 Test Item Value Reference Range Interpretation Comments eGFR (test code = eGFR) 66 [facility]2014-07-31 07:30:00 Test Item Value Reference Range Interpretation Comments CO2 (test code = CO2) 30 24-32 [facility]2014-07-31 07:30:00 Test Item Value Reference Range Interpretation Comments Calcium Lvl (test code = Calcium Lvl) 9.3 8.5-10.5 [facility]2014-07-31 07:30:00 Test Item Value Reference Range Interpretation Comments Chloride Lvl (test code = Chloride Lvl) 103 95-109 [facility]2014-07-31 07:30:00 Test Item Value Reference Range Interpretation Comments AGAP (test code = AGAP) 11.1 10.0-20.0 [facility]2014-07-31 07:30:00 Test Item Value Reference Range Interpretation Comments Potassium Lvl (test code = Potassium 4.1 3.5-5.1 Lvl) [facility]2014-07-31 07:30:00 Test Item Value Reference Range Interpretation Comments BUN (test code = BUN) 16 7-22 [facility]2014-07-31 07:30:00 Test Item Value Reference Range Interpretation Comments Sodium Lvl (test code = Sodium Lvl) 140 135-145 [facility]2014-07-31 07:30:00 Test Item Value Reference Range Interpretation Comments Glucose Lvl (test code = Glucose Lvl) 230 70-99 [facility]2014-07-31 07:30:00 Test Item Value Reference Range Interpretation Comments Creatinine Lvl (test code = Creatinine 0.9 0.5-1.4 Lvl) [facility] TempleEuvyaxuUZWAZTASDK8768-23-95 07:30:00 Test Item Value Reference Range Interpretation Comments Platelet (test code = Platelet) 226 133-450 [facility] TempleUuldskkWSQOLRGJWB7778-40-45 07:30:00 Test Item Value Reference Range Interpretation Comments RDW (test code = RDW) 13.5 11.5-14.5 [facility] TemplePnlwjigALFKNVWFAI5226-44-85 07:30:00 Test Item Value Reference Range Interpretation Comments MPV (test code = MPV) 9.7 7.4-10.4 [facility] TempleXexxiagWARHGJPCAC8761-32-76 07:30:00 Test Item Value Reference Range Interpretation Comments WBC (test code = WBC) 9.6 3.7-10.4 [facility] TempleMjguwqfHLZHJDWAWZ6839-00-99 07:30:00 Test Item Value Reference Range Interpretation Comments RBC (test code = RBC) 4.49 4.20-5.40 [facility] TempleUiheazbDRUPOUDZXY0753-87-43 07:30:00 Test Item Value Reference Range Interpretation Comments Hgb (test code = Hgb) 12.0 12.0-16.0 [facility] TempleSlkrctmXLHQQQBYDO7726-89-67 07:30:00 Test Item Value Reference Range Interpretation Comments MCV (test code = MCV) 83.2 81.0-99.0 [facility] TempleJmhxqodBOOQANYLUI9398-12-55 07:30:00 Test Item Value Reference Range Interpretation Comments Hct (test code = Hct) 37.4 36.0-48.0 [facility] TempleYtlzlxgBXCBAWJDFJ2002-74-22 07:30:00 Test Item Value Reference Range Interpretation Comments MCHC (test code = MCHC) 32.1 32.0-36.0 [facility] TempleQjnnqzuOLGFMBXTUX4765-52-07 07:30:00 Test Item Value Reference Range Interpretation Comments MCH (test code = MCH) 26.7 pg 27.0-31.0 [facility] TempleDubejzuNZIDBOLKHH8071-18-53 07:30:00 Test Item Value Reference Range Interpretation Comments Basophils (test code = 0.0 See_Comment [Aut omated message] The Basophils) system which ge nerated this result tra nsmitted reference range : <=1.0. The reference r eric was not used to int erpret this result as normal/abnormal . [facility] TempleVgrgprwMJVSPXGHQM8736-69-41 07:30:00 Test Item Value Reference Range Interpretation Comments Segs-Bands # (test code = Segs-Bands #) 8.9 1.5-8.1 [facility] TempleYyjvppeBVRFHYRLWN3375-61-69 07:30:00 Test Item Value Reference Range Interpretation Comments Segs (test code = Segs) 92.8 45.0-75.0 [facility] TempleRczuaaeDYOVPBAQZI3161-15-09 07:30:00 Test Item Value Reference Range Interpretation Comments Lymphocytes (test code = Lymphocytes) 5.4 20.0-40.0 [facility] TempleOejclczGTWOGJXLGD3960-28-59 07:30:00 Test Item Value Reference Range Interpretation Comments Eosinophils (test code = 0.0 See_Comment [A utomated message] The Eosinophils) system which ge nerated this result tra nsmitted reference range : <=4.0. The reference r eric was not used to int erpret this result as normal/abnormal . [facility] TempleVnsinfiPISCBJGATY7633-87-92 07:30:00 Test Item Value Reference Range Interpretation Comments Monocytes (test code = Monocytes) 1.8 2.0-12.0 [facility] TempleKmhmgysQXGTZEXVMY2003-54-26 07:30:00 Test Item Value Reference Range Interpretation Comments Lymphocytes # (test code = Lymphocytes 0.5 1.0-5.5 #) [facility] TempleKdxfxklWWGFKZXLRD8044-10-62 07:30:00 Test Item Value Reference Range Interpretation Comments Monocytes # (test code 0.2 See_Comment [Aut omated message] The = Monocytes #) system which generated this result tra nsmitted reference range : <=0.8. The reference r eric was not used to int erpret this result as normal/abnormal . [facility] TempleExwzuwlBBAKKQPCOE0320-92-83 07:30:00 Test Item Value Reference Range Interpretation Comments Eosinophils # (test code 0.0 See_Comment [A utomated message] The = Eosinophils #) system whic h generated this result tra nsmitted reference range : <=0.5. The reference r eric was not used to int erpret this result as normal/abnormal . [facility] TempleTdqviecNHRZCPUXOM0205-35-03 07:30:00 Test Item Value Reference Range Interpretation Comments Basophils # (test code 0.0 See_Comment [Aut omated message] The = Basophils #) system which generated this result tra nsmitted reference range : <=0.2. The reference r eric was not used to int erpret this result as normal/abnormal . [facility]2014-07-31 07:30:00 Test Item Value Reference Range Interpretation Comments Magnesium Lvl (test code = Magnesium 1.8 1.8-2.4 Lvl) [facility]2014-07-31 07:30:00 Test Item Value Reference Range Interpretation Comments Phosphorus (test code = Phosphorus) 3.4 2.5-4.5 [facility]2014-07-31 07:30:00 Test Item Value Reference Range Interpretation Comments eGFR (test code = eGFR) 66 [facility]2014-07-31 07:30:00 Test Item Value Reference Range Interpretation Comments CO2 (test code = CO2) 30 24-32 [facility]2014-07-31 07:30:00 Test Item Value Reference Range Interpretation Comments Calcium Lvl (test code = Calcium Lvl) 9.3 8.5-10.5 [facility]2014-07-31 07:30:00 Test Item Value Reference Range Interpretation Comments Chloride Lvl (test code = Chloride Lvl) 103 95-109 [facility]2014-07-31 07:30:00 Test Item Value Reference Range Interpretation Comments AGAP (test code = AGAP) 11.1 10.0-20.0 [facility]2014-07-31 07:30:00 Test Item Value Reference Range Interpretation Comments Potassium Lvl (test code = Potassium 4.1 3.5-5.1 Lvl) [facility]2014-07-31 07:30:00 Test Item Value Reference Range Interpretation Comments BUN (test code = BUN) 16 7-22 [facility]2014-07-31 07:30:00 Test Item Value Reference Range Interpretation Comments Sodium Lvl (test code = Sodium Lvl) 140 135-145 [facility]2014-07-31 07:30:00 Test Item Value Reference Range Interpretation Comments Glucose Lvl (test code = Glucose Lvl) 230 70-99 [facility]2014-07-31 07:30:00 Test Item Value Reference Range Interpretation Comments Creatinine Lvl (test code = Creatinine 0.9 0.5-1.4 Lvl) [facility] TempleQocyxtbFKIAXKABCC9767-89-80 07:30:00 Test Item Value Reference Range Interpretation Comments Platelet (test code = Platelet) 226 133-450 [facility] TempleKglbtqcDYPKWMUMZC9041-56-56 07:30:00 Test Item Value Reference Range Interpretation Comments RDW (test code = RDW) 13.5 11.5-14.5 [facility] TempleDgsvgvwCVUGOGHRQQ4995-17-88 07:30:00 Test Item Value Reference Range Interpretation Comments MPV (test code = MPV) 9.7 7.4-10.4 [facility] TempleRlhhhjrKQYEQCGQJM6560-64-34 07:30:00 Test Item Value Reference Range Interpretation Comments WBC (test code = WBC) 9.6 3.7-10.4 [facility] TempleLonpsugLOIRUTUDKC6654-15-84 07:30:00 Test Item Value Reference Range Interpretation Comments RBC (test code = RBC) 4.49 4.20-5.40 [facility] TempleDzaogbkJBHCAPCHVW6419-49-05 07:30:00 Test Item Value Reference Range Interpretation Comments Hgb (test code = Hgb) 12.0 12.0-16.0 [facility] TempleWhxngmaRXMYNPTCIZ0055-94-46 07:30:00 Test Item Value Reference Range Interpretation Comments MCV (test code = MCV) 83.2 81.0-99.0 [facility] TempleVjrznqvRDJPNSVGOX6277-14-07 07:30:00 Test Item Value Reference Range Interpretation Comments Hct (test code = Hct) 37.4 36.0-48.0 [facility] TempleAuucwxcBRLMTKWPQK8431-82-44 07:30:00 Test Item Value Reference Range Interpretation Comments MCHC (test code = MCHC) 32.1 32.0-36.0 [facility] TempleBusuqngIDNTFPTBXT6051-48-01 07:30:00 Test Item Value Reference Range Interpretation Comments MCH (test code = MCH) 26.7 pg 27.0-31.0 [facility] TempleNmqugefMPEMUFGJQY6228-71-24 07:30:00 Test Item Value Reference Range Interpretation Comments Basophils (test code = 0.0 See_Comment [Aut omated message] The Basophils) system which ge nerated this result tra nsmitted reference range : <=1.0. The reference r eric was not used to int erpret this result as normal/abnormal . [facility] TempleEyhawxhVTBOHQCSQY5657-26-44 07:30:00 Test Item Value Reference Range Interpretation Comments Segs-Bands # (test code = Segs-Bands #) 8.9 1.5-8.1 [facility] TempleJqrsxvgGXYYBUESQN5094-91-61 07:30:00 Test Item Value Reference Range Interpretation Comments Segs (test code = Segs) 92.8 45.0-75.0 [facility] TempleUljligkHGTFKXXSKN1342-33-05 07:30:00 Test Item Value Reference Range Interpretation Comments Lymphocytes (test code = Lymphocytes) 5.4 20.0-40.0 [facility] TempleXfdpndcIESRSCWFQN3130-87-68 07:30:00 Test Item Value Reference Range Interpretation Comments Eosinophils (test code = 0.0 See_Comment [A utomated message] The Eosinophils) system which ge nerated this result tra nsmitted reference range : <=4.0. The reference r eric was not used to int erpret this result as normal/abnormal . [facility] TempleZdjftcnCITPAXEPFO0684-18-32 07:30:00 Test Item Value Reference Range Interpretation Comments Monocytes (test code = Monocytes) 1.8 2.0-12.0 [facility] TempleCbljxcjNGPCWJRPRM3574-96-31 07:30:00 Test Item Value Reference Range Interpretation Comments Lymphocytes # (test code = Lymphocytes 0.5 1.0-5.5 #) [facility] TempleRthihgdFCVMVPFLBT3626-30-64 07:30:00 Test Item Value Reference Range Interpretation Comments Monocytes # (test code 0.2 See_Comment [Aut omated message] The = Monocytes #) system which generated this result tra nsmitted reference range : <=0.8. The reference r eric was not used to int erpret this result as normal/abnormal . [facility] TempleGeoymqbHIETJWYZQB2613-13-03 07:30:00 Test Item Value Reference Range Interpretation Comments Eosinophils # (test code 0.0 See_Comment [A utomated message] The = Eosinophils #) system whic h generated this result tra nsmitted reference range : <=0.5. The reference r eric was not used to int erpret this result as normal/abnormal . [facility] TempleJpbyylqHEOLKUOUJU5095-72-51 07:30:00 Test Item Value Reference Range Interpretation Comments Basophils # (test code 0.0 See_Comment [Aut omated message] The = Basophils #) system which generated this result tra nsmitted reference range : <=0.2. The reference r eric was not used to int erpret this result as normal/abnormal . [facility]2014-07-31 07:30:00 Test Item Value Reference Range Interpretation Comments Magnesium Lvl (test code = Magnesium 1.8 1.8-2.4 Lvl) [facility]2014-07-31 07:30:00 Test Item Value Reference Range Interpretation Comments Phosphorus (test code = Phosphorus) 3.4 2.5-4.5 [facility]2014-07-31 07:30:00 Test Item Value Reference Range Interpretation Comments eGFR (test code = eGFR) 66 [facility]2014-07-31 07:30:00 Test Item Value Reference Range Interpretation Comments CO2 (test code = CO2) 30 24-32 [facility]2014-07-31 07:30:00 Test Item Value Reference Range Interpretation Comments Calcium Lvl (test code = Calcium Lvl) 9.3 8.5-10.5 [facility]2014-07-31 07:30:00 Test Item Value Reference Range Interpretation Comments Chloride Lvl (test code = Chloride Lvl) 103 95-109 [facility]2014-07-31 07:30:00 Test Item Value Reference Range Interpretation Comments AGAP (test code = AGAP) 11.1 10.0-20.0 [facility]2014-07-31 07:30:00 Test Item Value Reference Range Interpretation Comments Potassium Lvl (test code = Potassium 4.1 3.5-5.1 Lvl) [facility]2014-07-31 07:30:00 Test Item Value Reference Range Interpretation Comments BUN (test code = BUN) 16 7-22 [facility]2014-07-31 07:30:00 Test Item Value Reference Range Interpretation Comments Sodium Lvl (test code = Sodium Lvl) 140 135-145 [facility]2014-07-31 07:30:00 Test Item Value Reference Range Interpretation Comments Glucose Lvl (test code = Glucose Lvl) 230 70-99 [facility]2014-07-31 07:30:00 Test Item Value Reference Range Interpretation Comments Creatinine Lvl (test code = Creatinine 0.9 0.5-1.4 Lvl) [facility] TempleScubmjjYTWIDOXJEH6834-11-01 07:30:00 Test Item Value Reference Range Interpretation Comments Platelet (test code = Platelet) 226 133-450 [facility] TempleFykxyxxNWKZGUYHQK2327-25-81 07:30:00 Test Item Value Reference Range Interpretation Comments RDW (test code = RDW) 13.5 11.5-14.5 [facility] TempleNbguwpnOOAWYYCYIU2011-41-85 07:30:00 Test Item Value Reference Range Interpretation Comments MPV (test code = MPV) 9.7 7.4-10.4 [facility] TempleTilcjewIVNZFXRDPJ6228-88-93 07:30:00 Test Item Value Reference Range Interpretation Comments WBC (test code = WBC) 9.6 3.7-10.4 [facility] TempleSexyomsSYMUPOXACD6406-75-67 07:30:00 Test Item Value Reference Range Interpretation Comments RBC (test code = RBC) 4.49 4.20-5.40 [facility] TempleGghfcfpHJUTDWWNCK2981-72-01 07:30:00 Test Item Value Reference Range Interpretation Comments Hgb (test code = Hgb) 12.0 12.0-16.0 [facility] TempleYchgboxOTYWQZCZBB1077-85-04 07:30:00 Test Item Value Reference Range Interpretation Comments MCV (test code = MCV) 83.2 81.0-99.0 [facility] TempleYgsggthYEAVSIKPAZ1648-83-81 07:30:00 Test Item Value Reference Range Interpretation Comments Hct (test code = Hct) 37.4 36.0-48.0 [facility] TempleBxezwceALCWSFENQP8081-57-52 07:30:00 Test Item Value Reference Range Interpretation Comments MCHC (test code = MCHC) 32.1 32.0-36.0 [facility] TempleSrpeatuOFGYBKBXGD1232-54-64 07:30:00 Test Item Value Reference Range Interpretation Comments MCH (test code = MCH) 26.7 pg 27.0-31.0 [facility] TempleDyslqfcIXSQSDQNET6773-67-04 07:30:00 Test Item Value Reference Range Interpretation Comments Basophils (test code = 0.0 See_Comment [Aut omated message] The Basophils) system which ge nerated this result tra nsmitted reference range : <=1.0. The reference r eric was not used to int erpret this result as normal/abnormal . [facility] TempleIxugfajYOBPCJPOOI9454-56-83 07:30:00 Test Item Value Reference Range Interpretation Comments Segs-Bands # (test code = Segs-Bands #) 8.9 1.5-8.1 [facility] TempleRyjdiwjPHQLUPUMHQ9573-45-72 07:30:00 Test Item Value Reference Range Interpretation Comments Segs (test code = Segs) 92.8 45.0-75.0 [facility] TempleFncsjvzTZPTHPGINR2109-16-31 07:30:00 Test Item Value Reference Range Interpretation Comments Lymphocytes (test code = Lymphocytes) 5.4 20.0-40.0 [facility] TempleLxvlsflSHLMWEICZI2140-33-67 07:30:00 Test Item Value Reference Range Interpretation Comments Eosinophils (test code = 0.0 See_Comment [A utomated message] The Eosinophils) system which ge nerated this result tra nsmitted reference range : <=4.0. The reference r eric was not used to int erpret this result as normal/abnormal . [facility] TempleMczpnufUDZPBIUORK1970-20-54 07:30:00 Test Item Value Reference Range Interpretation Comments Monocytes (test code = Monocytes) 1.8 2.0-12.0 [facility] TempleYbtfnfoCNCSXAZWND2124-04-98 07:30:00 Test Item Value Reference Range Interpretation Comments Lymphocytes # (test code = Lymphocytes 0.5 1.0-5.5 #) [facility] TempleMwufyzsBADOASYZSP9542-51-11 07:30:00 Test Item Value Reference Range Interpretation Comments Monocytes # (test code 0.2 See_Comment [Aut omated message] The = Monocytes #) system which generated this result tra nsmitted reference range : <=0.8. The reference r eric was not used to int erpret this result as normal/abnormal . [facility] TempleAbawkboPMOMWRVSND4952-09-18 07:30:00 Test Item Value Reference Range Interpretation Comments Eosinophils # (test code 0.0 See_Comment [A utomated message] The = Eosinophils #) system whic h generated this result tra nsmitted reference range : <=0.5. The reference r eric was not used to int erpret this result as normal/abnormal . [facility]usvogaJYTGFKUIZX5080-21-08 07:30:00 Test Item Value Reference Range Interpretation Comments Basophils # (test code 0.0 See_Comment [Aut omated message] The = Basophils #) system which generated this result tra nsmitted reference range : <=0.2. The reference r eric was not used to int erpret this result as normal/abnormal . [facility] CenterYtraqccBXPXM0399-94-21 00:20:08 Test Item Value Reference Range Interpretation Comments Grp A Strep Scr (test Negative (04/12/14 7:20 code = Grp A Strep PM) Scr) [place] [id number] 00:20:08 Test Item Value Reference Range Interpretation Comments Grp A Strep Scr (test Negative (04/12/14 7:20 code = Grp A Strep PM) Scr) [place] [id number] 00:20:08 Test Item Value Reference Range Interpretation Comments Grp A Strep Scr (test Negative (04/12/14 7:20 code = Grp A Strep PM) Scr) [facility] CenterO[facility] [id number] 16:10:00 Test Item Value Reference Range Interpretation Comments CK MB Index (test 1.9 See_Comment [Automate d message] The code = CK MB Index) system w [facility] generated this result transmit thelma reference range : <=2.5. The reference range was not used to interpr et this result as zana l/abnormal. [facility] Center[facility] [id number] 16:10:00 Test Item Value Reference Range Interpretation Comments BNP (test code = BNP) 24 [facility] Center[facility] [id number] 16:10:00 Test Item Value Reference Range Interpretation Comments Troponin-I (test code no gt See_Comment [Auto mated message] The = Troponin-I) system which g enerated this result transmit thelma reference range : <=0.40. The reference r eric was not used to interpr et this result as zana l/abnormal. [facility] Center[facility] [id number] 16:10:00 Test Item Value Reference Range Interpretation Comments CK MB (test code = CK MB) 0.6 0.5-3.6 [facility] [id number] 16:10:00 Test Item Value Reference Range Interpretation Comments Total CK (test code = Total CK) 31 12-[address] [facility]Sw[facility] [id number] 16:10:00 Test Item Value Reference Range Interpretation Comments Procalcitonin Lvl (test no gt See_Comment [Au tomated message] code = Procalcitonin Lvl) Th e system which generated this result transmitted ref erence range: <=0.10. The reference range was not used to interpr et this result as normal/abnormal . [facility] CenterInteract Public Safety [id number] 16:10:00 Test Item Value Reference Range Interpretation Comments Lactic Acid Lvl (test code = Lactic 0.9 0.5-2.2 Acid Lvl) [facility] HospitalDhigqniLALKMBKLVG3633-52-35 16:10:00 Test Item Value Reference Range Interpretation Comments INR (test code = INR) 1.02 0.85-1.[address] [facility]BrycciqUWGKLKMHKY1669-74-81 16:10:00 Test Item Value Reference Range Interpretation Comments PT (test code = PT) 13.3 s 12.0-14.7 [facility] CenterValerion Therapeutics2014-07-30 16:10:00 Test Item Value Reference Range Interpretation Comments CK MB Index (test 1.9 See_Comment [Automate d message] The code = CK MB Index) [facility] result transmit thelma reference range : <=2.5. The reference range was not used to interpr et this result as zana l/abnormal. [facility] CenterValerion Therapeutics2014-07-30 16:10:00 Test Item Value Reference Range Interpretation Comments BNP (test code = BNP) 24 [facility] CenterVal[facility]ion Therapeutics2014-07-30 16:10:00 Test Item Value Reference Range Interpretation Comments Troponin-I (test code no gt See_Comment [Auto mated message] The = Troponin-I) system which g enerated this result transmit thelma reference range : <=0.40. The reference r eric was not used to interpr et this result as zana l/abnormal. [facility]2014-07-30 16:10:00 Test Item Value Reference Range Interpretation Comments CK MB (test code = CK MB) 0.6 0.5-3.6 [facility] CenterO[facility] [id number] 16:10:00 Test Item Value Reference Range Interpretation Comments Total CK (test code = Total CK) 31 12-191 [facility] CenterInteract Public Safety [id number] 16:10:00 Test Item Value Reference Range Interpretation Comments Procalcitonin Lvl (test no gt See_Comment [Au tomated message] code = Procalcitonin Lvl) Th e system which generated this result transmitted ref erence range: <=0.10. The reference range was not used to interpr et this result as normal/abnormal . [facility] CenterInter[facility] [id number] 16:10:00 Test Item Value Reference Range Interpretation Comments Lactic Acid Lvl (test code = Lactic 0.9 0.5-2.2 Acid Lvl) [facility] HospitalBkahgrhEUQPZGKPMG9660-52-49 16:10:00 Test Item Value Reference Range Interpretation Comments INR (test code = INR) 1.02 0.85-1.[address] [facility] HospitalKzcusopZERMQFINCZ9177-02-36 16:10:00 Test Item Value Reference Range Interpretation Comments PT (test code = PT) 13.3 s 12.0-14.7 [facility] CenterValerion Therapeutics2014-07-30 16:10:00 Test Item Value Reference Range Interpretation Comments CK MB Index (test 1.9 See_Comment [Automate d message] The code = CK MB Index) [facility] this result transmit thelma reference range : <=2.5. The reference range was not used to interpr et this result as zana l/abnormal. [facility] CenterValerion Therapeutics2014-07-30 16:10:00 Test Item Value Reference Range Interpretation Comments BNP (test code = BNP) 24 [facility] CenterVal[facility] Therapeutics2014-07-30 16:10:00 Test Item Value Reference Range Interpretation Comments Troponin-I (test code no gt See_Comment [Auto mated message] The = Troponin-I) system which g enerated this result transmit thelma reference range : <=0.40. The reference r eric was not used to interpr et this result as zana l/abnormal. [facility]2014-07-30 16:10:00 Test Item Value Reference Range Interpretation Comments CK MB (test code = CK MB) 0.6 0.5-3.6 [facility] CenterannCARDIAC [id number] 16:10:00 Test Item Value Reference Range Interpretation Comments Total CK (test code = Total CK) 31 12-[address] [facility] HospitalCHEM [id number] 16:10:00 Test Item Value Reference Range Interpretation Comments Procalcitonin Lvl (test no gt See_Comment [Au tomated message] code = Procalcitonin Lvl) Th e system which generated this result transmitted ref erence range: <=0.10. The reference range was not used to interpr et this result as normal/abnormal . [facility] HospitalCHE[facility] [id number] 16:10:00 Test Item Value Reference Range Interpretation Comments Lactic Acid Lvl (test code = Lactic 0.9 0.5-2.2 Acid Lvl) [facility] HospitalQcnklklTORAZCGQDR6794-32-49 16:10:00 Test Item Value Reference Range Interpretation Comments INR (test code = INR) 1.02 0.85-1.17 [facility]UpwrchxNNXMHESNGF1561-39-99 16:10:00 Test Item Value Reference Range Interpretation Comments PT (test code = PT) 13.3 s 12.0-14.7 [facility] GLUCOSE [id number] 20:14:00 Test Item Value Reference Range Interpretation Comments Comment2 (test code = Notified Nurse Comment2) [facility] GLUCOSE [id number] 20:14:00 Test Item Value Reference Range Interpretation Comments Comment1 (test code = Comment1) Notified [facility] GLUCOSE [id number] 20:14:00 Test Item Value Reference Range Interpretation Comments Gluc POC Lifscn (test code = Gluc POC 164 70-99 H Lifscn) [facility] GLUCOSE [id number] 20:14:00 Test Item Value Reference Range Interpretation Comments Comment2 (test code = Notified Nurse Comment2) [facility] GLUCOSE [id number] 20:14:00 Test Item Value Reference Range Interpretation Comments Comment1 (test code = Comment1) Notified [facility] GLUCOSE [id number] 20:14:00 Test Item Value Reference Range Interpretation Comments Gluc POC Lifscn (test code = Gluc POC 164 70-99 H Lifscn) [facility] GLUCOSE [id number] 20:14:00 Test Item Value Reference Range Interpretation Comments Comment2 (test code = Notified Nurse Comment2) [facility] GLUCOSE [id number] 20:14:00 Test Item Value Reference Range Interpretation Comments Comment1 (test code = Comment1) Notified MD [facility] GLUCOSE [id number] 20:14:00 Test Item Value Reference Range Interpretation Comments Gluc POC Lifscn (test code = Gluc POC 164 70-99 H Lifscn) [facility] HospitalVnridonJJBTKKEJYT3859-06-09 18:51:00 Test Item Value Reference Range Interpretation Comments UA Urobilinogen (test code *NA*(06/22/2012 0.1-1.0 = UA Urobilinogen) 13:51:00) [facility] [address] [facility] HospitalDkugdmfSBDVWDIIIJ8765-58-36 18:51:00 Test Item Value Reference Range Interpretation Comments UA Mucus (test code = Few /LPF UA Mucus) *NA*(06/22/2012 13:51:00) [facility]LM4506[facility]82-67 18:51:00 Test Item Value Reference Range Interpretation Comments UA Sq Epi (test code = Few /LPF UA Sq Epi) *NA*(06/22/2012 13:51:00) [facility]VtmwvvfVYZQEANFKX2120-76-36 18:51:00 Test Item Value Reference Range Interpretation Comments UA WBC (test code = 3 See_Comment N [Automa thelma message] The UA WBC) system which ge nerated this result transmit thelma reference range : <=5. The reference range was not used to interpr et this result as zana l/abnormal. [facility] HospitalZyxbtrkEVMTPNNASN7372-20-38 18:51:00 Test Item Value Reference Range Interpretation Comments UA RBC (test code = 1 See_Comment N [Automa thelma message] The UA RBC) system which ge nerated this result transmit thelma reference range : <=2. The reference range was not used to interpr et this result as zana l/abnormal. [facility] HospitalUpwmpcaZRBTQQSBVE4771-43-31 18:51:00 Test Item Value Reference Range Interpretation Comments UA Leuk Est (test Moderate A code = UA Leuk Est) *ABN*(06/22/2012 13:51:00) [facility]OytrxkzNXXHCUSTMW8896-72-90 18:51:00 Test Item Value Reference Range Interpretation Comments UA Blood (test code = Negative (06/22/2012 N UA Blood) 13:51:00) [facility]hamRnytakxYZMTRKZOTL1552-04-10 18:51:00 Test Item Value Reference Range Interpretation Comments UA Nitrite (test code Negative (06/22/2012 N = UA Nitrite) 13:51:00) [facility]hamAtugeosDKTOIHOZEZ7045-23-96 18:51:00 Test Item Value Reference Range Interpretation Comments UA Ketones (test code Negative mg/dL = UA Ketones) *NA*(06/22/2012 13:51:00) [facility]hamIihbsxwEJWYDYKZIB3068-63-73 18:51:00 Test Item Value Reference Range Interpretation Comments UA Bili (test code = Negative *NA*(06/22/2012 UA Bili) 13:51:00) [facility]hamDvdzepqNXJWUVCAAK9165-11-23 18:51:00 Test Item Value Reference Range Interpretation Comments UA Glucose (test code = 500 mg/dL A UA Glucose) *ABN*(06/22/2012 13:51:00) [facility]hamPehfclmJPDUYJPVXK3856-23-33 18:51:00 Test Item Value Reference Range Interpretation Comments UA pH (test code = UA pH) 6.0 5.0-8.0 N [facility]hamUyhqteiUZNEXYBNTK8033-14-65 18:51:00 Test Item Value Reference Range Interpretation Comments UA Protein (test code Negative mg/dL N = UA Protein) (06/22/2012 13:51:00) [facility]hamElbmxtyVYYLLBDMVQ4765-86-86 18:51:00 Test Item Value Reference Range Interpretation Comments UA Spec Grav (test code = UA Spec Grav) 1.008 N [facility] BrenhamLfiboykULTFINIKDR6416-60-51 18:51:00 Test Item Value Reference Range Interpretation Comments UA Color (test code = Yellow *NA*(06/22/2012 UA Color) 13:51:00) [facility]hamNbznmpkNLCPAGGFWD1237-83-36 18:51:00 Test Item Value Reference Range Interpretation Comments UA Turbidity (test code = Clear (06/22/2012 N UA Turbidity) 13:51:00) [facility] TylerUtffvjrIyyhayiecjak9527-31-38 18:51:00 Test Item Value Reference Range Interpretation Comments Culture: Urine (test code = Culture: Urine) [facility]DahmyriHHRSNPFUOA7149-33-35 18:51:00 Test Item Value Reference Range Interpretation Comments UA Urobilinogen (test code *NA*(06/22/2012 0.1-1.0 = UA Urobilinogen) 13:51:00) [facility]hamWsphvyaMJQBSAMTSE8329-87-74 18:51:00 Test Item Value Reference Range Interpretation Comments UA Mucus (test code = Few /LPF UA Mucus) *NA*(06/22/2012 13:51:00) [facility] BrenhamFyzukpiSINYNYGJBX9140-58-24 18:51:00 Test Item Value Reference Range Interpretation Comments UA Sq Epi (test code = Few /LPF UA Sq Epi) *NA*(06/22/2012 13:51:00) [facility] BrenhamMkplsrqGFSAJVWVIR4208-96-66 18:51:00 Test Item Value Reference Range Interpretation Comments UA WBC (test code = 3 See_Comment N [Automa thelma message] The UA WBC) system which ge nerated this result transmit thelma reference range : <=5. The reference range was not used to interpr et this result as zana l/abnormal. [facility] BrenhamOzmwuebGBHPIGRFKP5546-46-87 18:51:00 Test Item Value Reference Range Interpretation Comments UA RBC (test code = 1 See_Comment N [Automa thelma message] The UA RBC) system which ge nerated this result transmit thelma reference range : <=2. The reference range was not used to interpr et this result as zana l/abnormal. [facility] BrenhamKsngvjmOOHMYFKFSD8678-55-86 18:51:00 Test Item Value Reference Range Interpretation Comments UA Leuk Est (test Moderate A code = UA Leuk Est) *ABN*(06/22/2012 13:51:00) [facility]hamByuwvtyXPJRRGJDDG3731-50-55 18:51:00 Test Item Value Reference Range Interpretation Comments UA Blood (test code = Negative (06/22/2012 N UA Blood) 13:51:00) [facility]hamBncqgjmFZWZAJELSZ8197-18-11 18:51:00 Test Item Value Reference Range Interpretation Comments UA Nitrite (test code Negative (06/22/2012 N = UA Nitrite) 13:51:00) [facility] BrenhamDirqylrXSHLXIGXDT6388-97-67 18:51:00 Test Item Value Reference Range Interpretation Comments UA Ketones (test code Negative mg/dL = UA Ketones) *NA*(06/22/2012 13:51:00) [facility] BrenhamXngtnuqVWPVUZTUCT1412-07-24 18:51:00 Test Item Value Reference Range Interpretation Comments UA Bili (test code = Negative *NA*(06/22/2012 UA Bili) 13:51:00) [facility] BrenhamKbbontxBBYQIOIRZI2697-58-24 18:51:00 Test Item Value Reference Range Interpretation Comments UA Glucose (test code = 500 mg/dL A UA Glucose) *ABN*(06/22/2012 13:51:00) [facility] BrenhamRlhafvzCWMCTDDCMV2785-01-85 18:51:00 Test Item Value Reference Range Interpretation Comments UA pH (test code = UA pH) 6.0 5.0-8.0 N [facility] BrenhamSsuqeonMJNPVUXPWU9688-16-23 18:51:00 Test Item Value Reference Range Interpretation Comments UA Protein (test code Negative mg/dL N = UA Protein) (06/22/2012 13:51:00) [facility] BrenhamQjuvesgUODFTXEDML1461-40-39 18:51:00 Test Item Value Reference Range Interpretation Comments UA Spec Grav (test code = UA Spec Grav) 1.008 N [facility] BrenhamEubvhwmJCEZKOQPZB7098-78-72 18:51:00 Test Item Value Reference Range Interpretation Comments UA Color (test code = Yellow *NA*(06/22/2012 UA Color) 13:51:00) [facility] BrenhamLrjsxekEVKXHYMPNV6277-84-33 18:51:00 Test Item Value Reference Range Interpretation Comments UA Turbidity (test code = Clear (06/22/2012 N UA Turbidity) 13:51:00) [facility] HospitalRendpikTnbcfcqtfqto7234-20-71 18:51:00 Test Item Value Reference Range Interpretation Comments Culture: Urine (test code = Culture: Urine) [facility] BrenhamRvlxkgzANWNPNVXTJ2871-87-03 18:51:00 Test Item Value Reference Range Interpretation Comments UA Urobilinogen (test code *NA*(06/22/2012 0.1-1.0 = UA Urobilinogen) 13:51:00) [facility] BrenhamZpzuhvvYTEQWWESRJ3970-36-30 18:51:00 Test Item Value Reference Range Interpretation Comments UA Mucus (test code = Few /LPF UA Mucus) *NA*(06/22/2012 13:51:00) [facility] BrenhamGkmcghdTHAROGFVZL0674-99-09 18:51:00 Test Item Value Reference Range Interpretation Comments UA Sq Epi (test code = Few /LPF UA Sq Epi) *NA*(06/22/2012 13:51:00) [facility] BrenhamMzxzdcaVUEEFOLVOM3981-63-75 18:51:00 Test Item Value Reference Range Interpretation Comments UA WBC (test code = 3 See_Comment N [Automa thelma message] The UA WBC) system which ge nerated this result transmit thelma reference range : <=5. The reference range was not used to interpr et this result as zana l/abnormal. [facility] BrenhamDdbjuaiBCIJLRJCMV3753-08-46 18:51:00 Test Item Value Reference Range Interpretation Comments UA RBC (test code = 1 See_Comment N [Automa thelma message] The UA RBC) system which ge nerated this result transmit thelma reference range : <=2. The reference range was not used to interpr et this result as zana l/abnormal. [facility] BrenhamBcnmfsrGJGVDNLLZC6564-23-65 18:51:00 Test Item Value Reference Range Interpretation Comments UA Leuk Est (test Moderate A code = UA Leuk Est) *ABN*(06/22/2012 13:51:00) [facility] BrenhamXvbntmvJAXIGZCJQA0406-47-10 18:51:00 Test Item Value Reference Range Interpretation Comments UA Blood (test code = Negative (06/22/2012 N UA Blood) 13:51:00) [facility] TexasXrxmnkuEUOEDLIOFU3431-30-52 18:51:00 Test Item Value Reference Range Interpretation Comments UA Nitrite (test code Negative (06/22/2012 N = UA Nitrite) 13:51:00) [facility] TexasHdcefndPIWPBGTVBB8491-65-44 18:51:00 Test Item Value Reference Range Interpretation Comments UA Ketones (test code Negative mg/dL = UA Ketones) *NA*(06/22/2012 13:51:00) [facility] TexasFjyyxrwJIVOFKPRSP4048-13-12 18:51:00 Test Item Value Reference Range Interpretation Comments UA Bili (test code = Negative *NA*(06/22/2012 UA Bili) 13:51:00) [facility]XlmzaysDWSQIJUGBQ4329-42-49 18:51:00 Test Item Value Reference Range Interpretation Comments UA Glucose (test code = 500 mg/dL A UA Glucose) *ABN*(06/22/2012 13:51:00) [facility]hamDvxygwjVUSTWYYAKH5460-31-68 18:51:00 Test Item Value Reference Range Interpretation Comments UA pH (test code = UA pH) 6.0 5.0-8.0 N [facility] TexasHwxmxsvUHFZLZYYST3671-47-65 18:51:00 Test Item Value Reference Range Interpretation Comments UA Protein (test code Negative mg/dL N = UA Protein) (06/22/2012 13:51:00) [facility]hamBlovhjqJIVWGUHFDP0357-29-32 18:51:00 Test Item Value Reference Range Interpretation Comments UA Spec Grav (test code = UA Spec Grav) 1.008 N [facility] BrenhamDqelajsXOBPFJFQFL8168-86-42 18:51:00 Test Item Value Reference Range Interpretation Comments UA Color (test code = Yellow *NA*(06/22/2012 UA Color) 13:51:00) [facility] BrenhamQueaoiiCVKLUIYIMW0107-28-16 18:51:00 Test Item Value Reference Range Interpretation Comments UA Turbidity (test code = Clear (06/22/2012 N UA Turbidity) 13:51:00) [facility] TylerAdyywimTesonzbvvqsz3531-77-82 18:51:00 Test Item Value Reference Range Interpretation Comments Culture: Urine (test code = Culture: Urine) [facility] CenterRvrsweyLKGRGEDLZ0125-94-90 18:28:00 Test Item Value Reference Range Interpretation Comments eGFR (test code = eGFR) 52 [facility] CenterLwqbbvdEVFFACYTB8291-31-87 18:28:00 Test Item Value Reference Range Interpretation Comments Alk Phos (test code = Alk Phos) 50 39-136 N [facility] CenterCypjqveXHFTIEJWK6267-17-69 18:28:00 Test Item Value Reference Range Interpretation Comments ALT (test code = ALT) 25 See_Comment N [Auto mated message] The system which ge nerated this result transmit thelma reference range : <=65. The reference range was not used to interpr et this result as zana l/abnormal. [facility] CenterIrykdthWRLFHODDW2419-28-04 18:28:00 Test Item Value Reference Range Interpretation Comments AST (test code = AST) 9 See_Comment N [Auto mated message] The system which ge nerated this result transmit thelma reference range : <=37. The reference range was not used to interpr et this result as zana l/abnormal. [facility] CenterHpegdfpYMXLKQWZB6580-02-01 18:28:00 Test Item Value Reference Range Interpretation Comments AGAP (test code = AGAP) 10.7 10.0-20.0 N [facility] CenterJomfvhpAJPVYYERI1658-34-82 18:28:00 Test Item Value Reference Range Interpretation Comments Bili Total (test code = Bili Total) 0.2 0.2-1.3 N [facility] CenterZqaisemZCHJBKNYA6661-84-34 18:28:00 Test Item Value Reference Range Interpretation Comments B/C Ratio (test code = B/C Ratio) 13 6-25 N [facility] CenterYdmbzceVQLIULQUI1768-83-59 18:28:00 Test Item Value Reference Range Interpretation Comments Globulin (test code = Globulin) 4.1 2.0-4.0 H [facility] CenterTjusfqmEIJLSQPDK2699-22-65 18:28:00 Test Item Value Reference Range Interpretation Comments A/G Ratio (test code = A/G Ratio) 0.9 0.7-1.6 N [facility] CenterZhmbsdoPVOCXXBBC4178-98-25 18:28:00 Test Item Value Reference Range Interpretation Comments Albumin Lvl (test code = Albumin Lvl) 3.6 3.5-5.0 N [facility] CenterQcgdfctZINHSZXIK9458-35-37 18:28:00 Test Item Value Reference Range Interpretation Comments Potassium Lvl (test code = Potassium 3.7 3.5-5.1 N Lvl) [facility] CenterAmosoikWZWHBHPGN0546-38-56 18:28:00 Test Item Value Reference Range Interpretation Comments Chloride Lvl (test code = Chloride Lvl) 101 95-109 N [facility] CenterPeobuweWZCBYYULX0047-13-04 18:28:00 Test Item Value Reference Range Interpretation Comments BUN (test code = BUN) 14 7-22 N [facility] CenterZgvoibgFTKDAWQPX9419-38-41 18:28:00 Test Item Value Reference Range Interpretation Comments Glucose Lvl (test code = Glucose Lvl) 236 70-99 H [facility] CenterDgxlubdVTXLEENWB6696-12-28 18:28:00 Test Item Value Reference Range Interpretation Comments Creatinine Lvl (test code = Creatinine 1.1 0.5-1.4 N Lvl) [facility] CenterVhmzptvIBOMYJYGU5680-87-01 18:28:00 Test Item Value Reference Range Interpretation Comments Sodium Lvl (test code = Sodium Lvl) 138 135-145 N [facility] CenterOqdzhpyXMSAJXREW0402-99-79 18:28:00 Test Item Value Reference Range Interpretation Comments Calcium Lvl (test code = Calcium Lvl) 9.3 8.5-10.5 N [facility] CenterBrulkimRLWQZYQDI9179-18-40 18:28:00 Test Item Value Reference Range Interpretation Comments CO2 (test code = CO2) 30 24-32 N [facility] CenterNpbcjzuZINFBRZEH9910-87-04 18:28:00 Test Item Value Reference Range Interpretation Comments Total Protein (test code = Total 7.7 6.4-8.4 N Protein) [facility] CenterAhhqhteEFOXSEGZT6817-70-29 18:28:00 Test Item Value Reference Range Interpretation Comments eGFR (test code = eGFR) 52 [facility] CenterGjozpcwMNKYUPHWU7991-07-75 18:28:00 Test Item Value Reference Range Interpretation Comments Alk Phos (test code = Alk Phos) 50 39-136 N [facility] CenterSjzolboDMFSKRBZI4794-79-84 18:28:00 Test Item Value Reference Range Interpretation Comments ALT (test code = ALT) 25 See_Comment N [Auto mated message] The system which ge nerated this result transmit thelma reference range : <=65. The reference range was not used to interpr et this result as zana l/abnormal. [facility] CenterTtqbqpuVHTODYUBA6868-17-81 18:28:00 Test Item Value Reference Range Interpretation Comments AST (test code = AST) 9 See_Comment N [Auto mated message] The system which ge nerated this result transmit thelma reference range : <=37. The reference range was not used to interpr et this result as zana l/abnormal. [facility] CenterOdbcrbkZTQBLTLRP5898-56-56 18:28:00 Test Item Value Reference Range Interpretation Comments AGAP (test code = AGAP) 10.7 10.0-20.0 N [facility] CenterCowfpvjQXSADTRQJ9497-34-25 18:28:00 Test Item Value Reference Range Interpretation Comments Bili Total (test code = Bili Total) 0.2 0.2-1.3 N [facility] CenterBtlnltvSLGRZDSQH5709-01-34 18:28:00 Test Item Value Reference Range Interpretation Comments B/C Ratio (test code = B/C Ratio) 13 6-25 N [facility] CenterEvvsjneDPBXBVDNQ9120-12-85 18:28:00 Test Item Value Reference Range Interpretation Comments Globulin (test code = Globulin) 4.1 2.0-4.0 H [facility] CenterPqrruitWLSMTWEMK3122-28-11 18:28:00 Test Item Value Reference Range Interpretation Comments A/G Ratio (test code = A/G Ratio) 0.9 0.7-1.6 N [facility] CenterSrbhzmdUWJPWMBAZ8577-35-17 18:28:00 Test Item Value Reference Range Interpretation Comments Albumin Lvl (test code = Albumin Lvl) 3.6 3.5-5.0 N [facility] CenterZstwnhhYOGVUWLCD1610-10-79 18:28:00 Test Item Value Reference Range Interpretation Comments Potassium Lvl (test code = Potassium 3.7 3.5-5.1 N Lvl) [facility] CenterRsfzxmaYSNJVVENW9640-35-29 18:28:00 Test Item Value Reference Range Interpretation Comments Chloride Lvl (test code = Chloride Lvl) 101 95-109 N [facility] CenterFwiqohzXVQMSSPHD0292-73-49 18:28:00 Test Item Value Reference Range Interpretation Comments BUN (test code = BUN) 14 7-22 N [facility] CenterIokwycrTWPAQFCQH5626-72-77 18:28:00 Test Item Value Reference Range Interpretation Comments Glucose Lvl (test code = Glucose Lvl) 236 70-99 H [facility] CenterJmahwbnAIITIQZCA0610-33-77 18:28:00 Test Item Value Reference Range Interpretation Comments Creatinine Lvl (test code = Creatinine 1.1 0.5-1.4 N Lvl) [facility] CenterFckgmrzNAHTOTRUF4372-63-12 18:28:00 Test Item Value Reference Range Interpretation Comments Sodium Lvl (test code = Sodium Lvl) 138 135-145 N [facility] CenterKclocmzFRSGXAAGL7719-56-72 18:28:00 Test Item Value Reference Range Interpretation Comments Calcium Lvl (test code = Calcium Lvl) 9.3 8.5-10.5 N [facility] CenterGcwabecTSDUKHOZV4514-02-02 18:28:00 Test Item Value Reference Range Interpretation Comments CO2 (test code = CO2) 30 24-32 N [facility] CenterRjbqhveDBQVBVVFY1598-36-72 18:28:00 Test Item Value Reference Range Interpretation Comments Total Protein (test code = Total 7.7 6.4-8.4 N Protein) [facility] CenterEmkbfrgKKQERBTSI3735-04-73 18:28:00 Test Item Value Reference Range Interpretation Comments eGFR (test code = eGFR) 52 [facility] CenterUwcxukrWMIEPBEUY3854-38-97 18:28:00 Test Item Value Reference Range Interpretation Comments Alk Phos (test code = Alk Phos) 50 39-136 N [facility] CenterNuobtrxSNUDVSZHN7727-58-47 18:28:00 Test Item Value Reference Range Interpretation Comments ALT (test code = ALT) 25 See_Comment N [Auto mated message] The system which ge nerated this result transmit thelma reference range : <=65. The reference range was not used to interpr et this result as zana l/abnormal. [facility] CenterFopijrwDHDCAJXXJ7713-96-83 18:28:00 Test Item Value Reference Range Interpretation Comments AST (test code = AST) 9 See_Comment N [Auto mated message] The system which ge nerated this result transmit thelma reference range : <=37. The reference range was not used to interpr et this result as zana l/abnormal. [facility] CenterSnrhnvbWRUASIHXJ8302-28-53 18:28:00 Test Item Value Reference Range Interpretation Comments AGAP (test code = AGAP) 10.7 10.0-20.0 N [facility] CenterMnvahinWIRZKWJFP1054-73-43 18:28:00 Test Item Value Reference Range Interpretation Comments Bili Total (test code = Bili Total) 0.2 0.2-1.3 N [facility] CenterCpzombfBMSABJESW8581-46-19 18:28:00 Test Item Value Reference Range Interpretation Comments B/C Ratio (test code = B/C Ratio) 13 6-25 N [facility] CenterSzcoukoQEXGJNVRL3078-33-14 18:28:00 Test Item Value Reference Range Interpretation Comments Globulin (test code = Globulin) 4.1 2.0-4.0 H [facility] CenterWzykpmpHBJRIDSCQ9803-11-36 18:28:00 Test Item Value Reference Range Interpretation Comments A/G Ratio (test code = A/G Ratio) 0.9 0.7-1.6 N [facility] CenterGlffyfdKWVJSSFPY1769-13-47 18:28:00 Test Item Value Reference Range Interpretation Comments Albumin Lvl (test code = Albumin Lvl) 3.6 3.5-5.0 N [facility] CenterWksrabtINCIRCBHW0635-25-10 18:28:00 Test Item Value Reference Range Interpretation Comments Potassium Lvl (test code = Potassium 3.7 3.5-5.1 N Lvl) [facility] CenterJfvbptdBUHZHDRXY4434-40-31 18:28:00 Test Item Value Reference Range Interpretation Comments Chloride Lvl (test code = Chloride Lvl) 101 95-109 N [facility] CenterWmdlfgsPEEOPKZIZ3329-63-14 18:28:00 Test Item Value Reference Range Interpretation Comments BUN (test code = BUN) 14 7-22 N [facility] CenterHxhhcevTZQJLSTWW7063-74-19 18:28:00 Test Item Value Reference Range Interpretation Comments Glucose Lvl (test code = Glucose Lvl) 236 70-99 H [facility] CenterMcmaqqbHTJRZNPDT4015-57-08 18:28:00 Test Item Value Reference Range Interpretation Comments Creatinine Lvl (test code = Creatinine 1.1 0.5-1.4 N Lvl) [facility] CenterTyrkrvcJJKAOEGQO0503-26-97 18:28:00 Test Item Value Reference Range Interpretation Comments Sodium Lvl (test code = Sodium Lvl) 138 135-145 N [facility] CenterYkzzckpFMRMMSUZC2136-00-43 18:28:00 Test Item Value Reference Range Interpretation Comments Calcium Lvl (test code = Calcium Lvl) 9.3 8.5-10.5 N [facility] CenterGvmowkhCHBPWYEFR4180-14-00 18:28:00 Test Item Value Reference Range Interpretation Comments CO2 (test code = CO2) 30 24-32 N [facility] CenterIfinajqVDSUMEWOK7120-40-69 18:28:00 Test Item Value Reference Range Interpretation Comments Total Protein (test code = Total 7.7 6.4-8.4 N Protein) [facility] GLUCOSE PTDZEYG8891-49-75 16:05:00 Test Item Value Reference Range Interpretation Comments Gluc POC Lifscn (test code = Gluc POC 160 70-99 H Lifscn) [facility] GLUCOSE [id number] 16:05:00 Test Item Value Reference Range Interpretation Comments Comment1 (test code = Comment1) Repeat Test [facility] GLUCOSE [id number] 16:05:00 Test Item Value Reference Range Interpretation Comments Gluc POC Lifscn (test code = Gluc POC 160 70-99 H Lifscn) [facility] GLUCOSE [id number] 16:05:00 Test Item Value Reference Range Interpretation Comments Comment1 (test code = Comment1) Repeat Test [facility] GLUCOSE [id number] 16:05:00 Test Item Value Reference Range Interpretation Comments Gluc POC Lifscn (test code = Gluc POC 160 70-99 H Lifscn) [facility] GLUCOSE [id number] 16:05:00 Test Item Value Reference Range Interpretation Comments Comment1 (test code = Comment1) Repeat Test [facility] GLUCOSE [id number] 12:08:00 Test Item Value Reference Range Interpretation Comments Gluc POC Lifscn (test code = Gluc POC 129 70-99 H Lifscn) [facility] GLUCOSE [id number] 12:08:00 Test Item Value Reference Range Interpretation Comments Gluc POC Lifscn (test code = Gluc POC 129 70-99 H Lifscn) [facility] GLUCOSE [id number] 12:08:00 Test Item Value Reference Range Interpretation Comments Gluc POC Lifscn (test code = Gluc POC 129 70-99 H Lifscn) [facility] TempleOxaxwltMGFZAKIGEY5498-18-82 09:10:00 Test Item Value Reference Range Interpretation Comments RBC (test code = RBC) 3.93 4.20-5.40 L [facility] TempleMsruoxqYHNYSCSVYJ6219-39-53 09:10:00 Test Item Value Reference Range Interpretation Comments Hct (test code = Hct) 32.7 36.0-48.0 L [facility] TempleKzmgyweRKLPVWXNFR8845-36-14 09:10:00 Test Item Value Reference Range Interpretation Comments WBC (test code = WBC) 7.3 3.7-10.4 N [facility] TempleVaektugXIDFIUTWBM6563-24-76 09:10:00 Test Item Value Reference Range Interpretation Comments MCV (test code = MCV) 83.2 81.0-99.0 N [facility] TempleZvflosbPKQQXLZOYN6007-48-72 09:10:00 Test Item Value Reference Range Interpretation Comments MCH (test code = MCH) 28.5 pg 27.0-31.0 N [facility] TempleApqghgfZGQOGDCAPQ2851-52-10 09:10:00 Test Item Value Reference Range Interpretation Comments RDW (test code = RDW) 13.9 11.5-14.5 N [facility] TempleNipndpsKYVKCGGGGX0017-01-75 09:10:00 Test Item Value Reference Range Interpretation Comments MCHC (test code = MCHC) 34.2 32.0-36.0 N [facility] TempleNzyfbboZBIRSSBRPX2475-82-77 09:10:00 Test Item Value Reference Range Interpretation Comments MPV (test code = MPV) 8.5 7.4-10.4 N [facility] TempleWmnzxcsIEXIQFNWTT8166-02-28 09:10:00 Test Item Value Reference Range Interpretation Comments Platelet (test code = Platelet) 206 133-450 N [facility] TempleAveefgpLRHOHZJBST9013-87-18 09:10:00 Test Item Value Reference Range Interpretation Comments Hgb (test code = Hgb) 11.2 12.0-16.0 L [facility] TempleFaschvfBSCUORBACL5707-33-35 09:10:00 Test Item Value Reference Range Interpretation Comments Basophils # (test code 0.1 See_Comment N [Aut omated message] The = Basophils #) system which generated this result tra nsmitted reference range : <=0.2. The reference r eric was not used to int erpret this result as normal/abnormal . [facility] TempleBgkucwpSTLFMSERYX5920-72-52 09:10:00 Test Item Value Reference Range Interpretation Comments Monocytes (test code = Monocytes) 9.3 2.0-12.0 N [facility] TempleEzukvaxPEHQKVIOGW6832-11-42 09:10:00 Test Item Value Reference Range Interpretation Comments Segs-Bands # (test code = Segs-Bands #) 3.6 1.5-8.1 N [facility] TempleIxqqtgpCXHWAAYWZV6858-28-86 09:10:00 Test Item Value Reference Range Interpretation Comments Monocytes # (test code 0.7 See_Comment N [Aut omated message] The = Monocytes #) system which generated this result tra nsmitted reference range : <=0.8. The reference r eric was not used to int erpret this result as normal/abnormal . [facility] TempleKjbwsyrGAPIWQVHTJ0981-17-70 09:10:00 Test Item Value Reference Range Interpretation Comments Eosinophils # (test code 0.5 See_Comment N [A utomated message] The = Eosinophils #) system whic h generated this result tra nsmitted reference range : <=0.5. The reference r eric was not used to int erpret this result as normal/abnormal . [facility] TempleGwxznjiESDXOUBRMI1906-29-27 09:10:00 Test Item Value Reference Range Interpretation Comments Segs (test code = Segs) 49.3 45.0-75.0 N [facility] TempleEwytewvHDLYGKISXJ7588-68-82 09:10:00 Test Item Value Reference Range Interpretation Comments Lymphocytes # (test code = Lymphocytes 2.5 1.0-5.5 N #) [facility] TempleBrmfjtvSVEFARCEKD6741-28-72 09:10:00 Test Item Value Reference Range Interpretation Comments Eosinophils (test code = 6.8 See_Comment H [A utomated message] The Eosinophils) system which ge nerated this result tra nsmitted reference range : <=4.0. The reference r eric was not used to int erpret this result as normal/abnormal . [facility] TempleLsrorlcNZSVWSDKVW0921-99-38 09:10:00 Test Item Value Reference Range Interpretation Comments Basophils (test code = 1.0 See_Comment N [Aut omated message] The Basophils) system which ge nerated this result tra nsmitted reference range : <=1.0. The reference r eric was not used to int erpret this result as normal/abnormal . [facility] TempleTylfafiQFVJGRHKUL2215-64-57 09:10:00 Test Item Value Reference Range Interpretation Comments Lymphocytes (test code = Lymphocytes) 33.6 20.0-40.0 N [facility] TempleNaymhisCPPESETNNH3151-35-74 09:10:00 Test Item Value Reference Range Interpretation Comments RBC (test code = RBC) 3.93 4.20-5.40 L [facility] TempleEpvzgdtTLRYEUXRIR6867-96-21 09:10:00 Test Item Value Reference Range Interpretation Comments Hct (test code = Hct) 32.7 36.0-48.0 L [facility] TempleTpjrmvlGJFZNTJMFH3145-52-67 09:10:00 Test Item Value Reference Range Interpretation Comments WBC (test code = WBC) 7.3 3.7-10.4 N [facility] TempleOmfnzyjYFWJUONKKI5644-54-10 09:10:00 Test Item Value Reference Range Interpretation Comments MCV (test code = MCV) 83.2 81.0-99.0 N [facility] TempleQjboxmaLWLRYWWNZW8518-58-42 09:10:00 Test Item Value Reference Range Interpretation Comments MCH (test code = MCH) 28.5 pg 27.0-31.0 N [facility] TemplePzeyvtxBHFMZJZSJZ5806-61-15 09:10:00 Test Item Value Reference Range Interpretation Comments RDW (test code = RDW) 13.9 11.5-14.5 N [facility] TempleJytulcaJCSRQYGZGW8092-98-31 09:10:00 Test Item Value Reference Range Interpretation Comments MCHC (test code = MCHC) 34.2 32.0-36.0 N [facility] TempleLpkyoimEAPFEJPHWO8229-77-97 09:10:00 Test Item Value Reference Range Interpretation Comments MPV (test code = MPV) 8.5 7.4-10.4 N [facility] TempleMsqpmqqRIWFMPOXCQ0381-45-83 09:10:00 Test Item Value Reference Range Interpretation Comments Platelet (test code = Platelet) 206 133-450 N [facility] TempleMgbycvzDNKBZYYZYA4769-43-84 09:10:00 Test Item Value Reference Range Interpretation Comments Hgb (test code = Hgb) 11.2 12.0-16.0 L [facility] TempleZpxiwvsEYMVQSIOLI1102-57-85 09:10:00 Test Item Value Reference Range Interpretation Comments Basophils # (test code 0.1 See_Comment N [Aut omated message] The = Basophils #) system which generated this result tra nsmitted reference range : <=0.2. The reference r eric was not used to int erpret this result as normal/abnormal . [facility] TempleCcknxtzCAQCGSQTSX9846-02-80 09:10:00 Test Item Value Reference Range Interpretation Comments Monocytes (test code = Monocytes) 9.3 2.0-12.0 N [facility] TemplePzltaqyZHRWBYTTDI9967-61-39 09:10:00 Test Item Value Reference Range Interpretation Comments Segs-Bands # (test code = Segs-Bands #) 3.6 1.5-8.1 N [facility] TempleSdnabjwMXQQEDDGAR1008-34-53 09:10:00 Test Item Value Reference Range Interpretation Comments Monocytes # (test code 0.7 See_Comment N [Aut omated message] The = Monocytes #) system which generated this result tra nsmitted reference range : <=0.8. The reference r eric was not used to int erpret this result as normal/abnormal . [facility] TempleCagndyfAHQQWXNPAB1876-44-84 09:10:00 Test Item Value Reference Range Interpretation Comments Eosinophils # (test code 0.5 See_Comment N [A utomated message] The = Eosinophils #) system whic h generated this result tra nsmitted reference range : <=0.5. The reference r eric was not used to int erpret this result as normal/abnormal . [facility] TempleJdtjhjzMWYBCAYMIB9261-41-55 09:10:00 Test Item Value Reference Range Interpretation Comments Segs (test code = Segs) 49.3 45.0-75.0 N [facility] TempleFwwvspeBNRQLNCASK0903-79-28 09:10:00 Test Item Value Reference Range Interpretation Comments Lymphocytes # (test code = Lymphocytes 2.5 1.0-5.5 N #) [facility] TempleLwuqafdOCJEKXIKDP6690-05-45 09:10:00 Test Item Value Reference Range Interpretation Comments Eosinophils (test code = 6.8 See_Comment H [A utomated message] The Eosinophils) system which ge nerated this result tra nsmitted reference range : <=4.0. The reference r eric was not used to int erpret this result as normal/abnormal . [facility] TempleOrdvodfYBKXJGNSKH6931-04-69 09:10:00 Test Item Value Reference Range Interpretation Comments Basophils (test code = 1.0 See_Comment N [Aut omated message] The Basophils) system which ge nerated this result tra nsmitted reference range : <=1.0. The reference r eric was not used to int erpret this result as normal/abnormal . [facility] TempleVqjppozWWTNYULGNE8609-77-59 09:10:00 Test Item Value Reference Range Interpretation Comments Lymphocytes (test code = Lymphocytes) 33.6 20.0-40.0 N [facility] TempleUgpqklwFWUGXTILJB7018-83-64 09:10:00 Test Item Value Reference Range Interpretation Comments RBC (test code = RBC) 3.93 4.20-5.40 L [facility] TempleVqglrjtGZGZFXGKAF1492-96-06 09:10:00 Test Item Value Reference Range Interpretation Comments Hct (test code = Hct) 32.7 36.0-48.0 L [facility] TempleXidfmfcLBLKFLMQAO5474-54-67 09:10:00 Test Item Value Reference Range Interpretation Comments WBC (test code = WBC) 7.3 3.7-10.4 N [facility] TempleObhebytKFQCLKZNZZ8163-25-02 09:10:00 Test Item Value Reference Range Interpretation Comments MCV (test code = MCV) 83.2 81.0-99.0 N [facility] TempleTpeulngKBAPYFZXDI3900-77-91 09:10:00 Test Item Value Reference Range Interpretation Comments MCH (test code = MCH) 28.5 pg 27.0-31.0 N [facility] TempleHffdnwkRZEHODDHLK8661-34-81 09:10:00 Test Item Value Reference Range Interpretation Comments RDW (test code = RDW) 13.9 11.5-14.5 N [facility] TempleZfhvsnxFKQUWRREYW0135-05-20 09:10:00 Test Item Value Reference Range Interpretation Comments MCHC (test code = MCHC) 34.2 32.0-36.0 N [facility] TempleQlzhflyUXRTELOJQU0896-61-84 09:10:00 Test Item Value Reference Range Interpretation Comments MPV (test code = MPV) 8.5 7.4-10.4 N [facility] TempleUmuvzhdBOXVWXLWJC8937-53-15 09:10:00 Test Item Value Reference Range Interpretation Comments Platelet (test code = Platelet) 206 133-450 N [facility] TempleGbxegfgFZJZOJHAIK7025-92-44 09:10:00 Test Item Value Reference Range Interpretation Comments Hgb (test code = Hgb) 11.2 12.0-16.0 L [facility] TempleZmuakmkDMGOTBTOQQ6611-85-88 09:10:00 Test Item Value Reference Range Interpretation Comments Basophils # (test code 0.1 See_Comment N [Aut omated message] The = Basophils #) system which generated this result tra nsmitted reference range : <=0.2. The reference r eric was not used to int erpret this result as normal/abnormal . [facility] TempleRyrcvtqLPHMVQKAYJ2712-45-82 09:10:00 Test Item Value Reference Range Interpretation Comments Monocytes (test code = Monocytes) 9.3 2.0-12.0 N [facility] TempleRvglancLVCMRIZRRC8664-22-53 09:10:00 Test Item Value Reference Range Interpretation Comments Segs-Bands # (test code = Segs-Bands #) 3.6 1.5-8.1 N [facility] TempleCnecletAQVKXJNYEW2269-07-24 09:10:00 Test Item Value Reference Range Interpretation Comments Monocytes # (test code 0.7 See_Comment N [Aut omated message] The = Monocytes #) system which generated this result tra nsmitted reference range : <=0.8. The reference r eric was not used to int erpret this result as normal/abnormal . [facility] TempleAropfolLLUGKXMIGZ0387-99-87 09:10:00 Test Item Value Reference Range Interpretation Comments Eosinophils # (test code 0.5 See_Comment N [A utomated message] The = Eosinophils #) system whic h generated this result tra nsmitted reference range : <=0.5. The reference r eric was not used to int erpret this result as normal/abnormal . [facility] TempleCbsxtqsPTZQERNAQR2839-32-52 09:10:00 Test Item Value Reference Range Interpretation Comments Segs (test code = Segs) 49.3 45.0-75.0 N [facility] TempleFhylfgwPQERTWMMXI7299-18-89 09:10:00 Test Item Value Reference Range Interpretation Comments Lymphocytes # (test code = Lymphocytes 2.5 1.0-5.5 N #) [facility] TempleAhyohneMBOAKAFFSL5687-21-88 09:10:00 Test Item Value Reference Range Interpretation Comments Eosinophils (test code = 6.8 See_Comment H [A utomated message] The Eosinophils) system which ge nerated this result tra nsmitted reference range : <=4.0. The reference r eric was not used to int erpret this result as normal/abnormal . [facility] TempleNxyllsuCAEFFMOEHO3828-29-58 09:10:00 Test Item Value Reference Range Interpretation Comments Basophils (test code = 1.0 See_Comment N [Aut omated message] The Basophils) system which ge nerated this result tra nsmitted reference range : <=1.0. The reference r eric was not used to int erpret this result as normal/abnormal . [facility] TempleDagqvqdXPOUKGNJKH0201-55-50 09:10:00 Test Item Value Reference Range Interpretation Comments Lymphocytes (test code = Lymphocytes) 33.6 20.0-40.0 N [facility] GLUCOSE CSLCFHF8708-97-02 02:13:00 Test Item Value Reference Range Interpretation Comments Comment1 (test code = Comment1) Notify RN [facility] GLUCOSE VLDSRDR3861-77-83 02:13:00 Test Item Value Reference Range Interpretation Comments Gluc POC Lifscn (test code = Gluc POC 146 70-99 H Lifscn) [facility] GLUCOSE KBHNASJ2160-98-16 02:13:00 Test Item Value Reference Range Interpretation Comments Comment1 (test code = Comment1) Notify RN [facility] GLUCOSE VABZSAP9236-82-72 02:13:00 Test Item Value Reference Range Interpretation Comments Gluc POC Lifscn (test code = Gluc POC 146 70-99 H Lifscn) [facility] GLUCOSE AMPEDIT9324-64-07 02:13:00 Test Item Value Reference Range Interpretation Comments Comment1 (test code = Comment1) Notify RN [facility] GLUCOSE DXLUGXO9973-82-46 02:13:00 Test Item Value Reference Range Interpretation Comments Gluc POC Lifscn (test code = Gluc POC 146 70-99 H Lifscn) [facility]TwogoqlTFPXKJWJC3539-42-05 09:45:00 Test Item Value Reference Range Interpretation Comments pO2 Art (test code = pO2 Art) 62 80-100 L [facility] CenterYqxlinwQSCIWQTSK7477-00-44 09:45:00 Test Item Value Reference Range Interpretation Comments HCO3 Art (test code = HCO3 Art) 30 22-26 H [facility] CenterNdavzhtTVMRFWIBU7038-97-84 09:45:00 Test Item Value Reference Range Interpretation Comments pCO2 Art (test code = pCO2 Art) 54 35-45 H [facility] CenterZatpwpySGYQPXOWQ9522-45-93 09:45:00 Test Item Value Reference Range Interpretation Comments BE Art (test code = 4 See_Comment H [Automa thelma message] The BE Art) system which ge nerated this result transmit thelma reference range : <=2. The reference range was not used to interpr et this result as zana l/abnormal. [facility] CenterUshtrmpVXGNWKCET9631-22-94 09:45:00 Test Item Value Reference Range Interpretation Comments O2 Sat Art (test code = O2 Sat Art) 92.0 95.0-100.0 L [facility] CenterMwfcgrjSLWVCVIBP9519-84-42 09:45:00 Test Item Value Reference Range Interpretation Comments pH Art (test code = pH Art) 7.36 7.35-7.45 N [facility] CenterJzzfhzhZUUOGLAKO9097-93-27 09:45:00 Test Item Value Reference Range Interpretation Comments Allens Art (test code = N/A (06/10/2012 N Allens Art) 04:45:00) [facility] CenterCsmomgjGVZTVORIL8335-03-29 09:45:00 Test Item Value Reference Range Interpretation Comments Mode Art (test code = Mode Art) Room Air [facility] CenterFhxeplzJFUESMKAP0963-80-27 09:45:00 Test Item Value Reference Range Interpretation Comments Site Art (test code = A Line (06/10/2012 N Site Art) 04:45:00) [facility] CenterRxlbbzdPDWAPDRWS7668-49-85 09:45:00 Test Item Value Reference Range Interpretation Comments FiO2 Art (test code = FiO2 Art) 21.0 [facility] CenterQaixbqeKTHHUREVR3609-73-21 09:45:00 Test Item Value Reference Range Interpretation Comments AGAP (test code = AGAP) 8.1 10.0-20.0 L [facility] CenterGbufnbkDFHDAFCLZ4251-09-34 09:45:00 Test Item Value Reference Range Interpretation Comments Chloride Lvl (test code = Chloride Lvl) 107 95-109 N [facility] CenterPftrlwlOYQFWEMGU9571-45-64 09:45:00 Test Item Value Reference Range Interpretation Comments Calcium Lvl (test code = Calcium Lvl) 8.4 8.5-10.5 L [facility] CenterLmvwthpSDAHYGCAN3694-31-81 09:45:00 Test Item Value Reference Range Interpretation Comments CO2 (test code = CO2) 30 24-32 N [facility] CenterWfukxgnCGOLTENLK1465-04-14 09:45:00 Test Item Value Reference Range Interpretation Comments BUN (test code = BUN) 8 7-22 N [facility] CenterOmpptuvCSTYPQPMC4220-09-56 09:45:00 Test Item Value Reference Range Interpretation Comments Creatinine Lvl (test code = Creatinine 0.7 0.5-1.4 N Lvl) [facility] CenterYkxrrnjXOFHNUIPI8476-37-86 09:45:00 Test Item Value Reference Range Interpretation Comments Sodium Lvl (test code = Sodium Lvl) 141 135-145 N [facility] CenterFhesdiuXNOAPCCOH1347-64-14 09:45:00 Test Item Value Reference Range Interpretation Comments Potassium Lvl (test code = Potassium 4.1 3.5-5.1 N Lvl) [facility] CenterOfthviiOVOVFULPD6787-77-54 09:45:00 Test Item Value Reference Range Interpretation Comments Glucose Lvl (test code = Glucose Lvl) 114 70-99 H [facility] TempleXdsadkuSUIIYHHLNJ4593-22-26 09:45:00 Test Item Value Reference Range Interpretation Comments MCH (test code = MCH) 28.2 pg 27.0-31.0 N [facility] TempleVtonvsxRYYZFGZANS3997-26-92 09:45:00 Test Item Value Reference Range Interpretation Comments MPV (test code = MPV) 8.7 7.4-10.4 N [facility] TempleYitzshdZMZGCYFOCV5731-45-89 09:45:00 Test Item Value Reference Range Interpretation Comments RDW (test code = RDW) 13.7 11.5-14.5 N [facility] TempleIqzsvlxEKSXQRINEP6010-58-19 09:45:00 Test Item Value Reference Range Interpretation Comments MCHC (test code = MCHC) 33.8 32.0-36.0 N [facility] TempleSgfaqspJFXLQXEXGE8537-69-89 09:45:00 Test Item Value Reference Range Interpretation Comments Platelet (test code = Platelet) 200 133-450 N [facility] TempleSokxxpbICCQNKIDZJ4367-94-79 09:45:00 Test Item Value Reference Range Interpretation Comments MCV (test code = MCV) 83.6 81.0-99.0 N [facility] TempleAzxnmweCDWBOYCMKA0909-74-92 09:45:00 Test Item Value Reference Range Interpretation Comments Hgb (test code = Hgb) 10.4 12.0-16.0 L [facility] TempleMsptjeiPBYWGLXSFJ4434-56-71 09:45:00 Test Item Value Reference Range Interpretation Comments Hct (test code = Hct) 30.9 36.0-48.0 L [facility] TempleRnskeizXVSEFJLQNT3805-70-50 09:45:00 Test Item Value Reference Range Interpretation Comments RBC (test code = RBC) 3.70 4.20-5.40 L [facility] TempleWrwzifsWMMUBZDQOJ7535-19-57 09:45:00 Test Item Value Reference Range Interpretation Comments WBC (test code = WBC) 8.4 3.7-10.4 N [facility] TempleDvnhbzvXFQPRNZNBJ2479-30-00 09:45:00 Test Item Value Reference Range Interpretation Comments Eosinophils # (test code 0.5 See_Comment N [A utomated message] The = Eosinophils #) system whic h generated this result tra nsmitted reference range : <=0.5. The reference r eric was not used to int erpret this result as normal/abnormal . [facility] TempleXmppodrHYQTMGBBVL3173-66-91 09:45:00 Test Item Value Reference Range Interpretation Comments Basophils # (test code 0.1 See_Comment N [Aut omated message] The = Basophils #) system which generated this result tra nsmitted reference range : <=0.2. The reference r eric was not used to int erpret this result as normal/abnormal . [facility] TempleWdgeawbROCBPSKAXB4060-27-19 09:45:00 Test Item Value Reference Range Interpretation Comments Segs-Bands # (test code = Segs-Bands #) 4.6 1.5-8.1 N [facility] TempleEeozmcjOATGDFWDZN0459-56-46 09:45:00 Test Item Value Reference Range Interpretation Comments Monocytes (test code = Monocytes) 8.5 2.0-12.0 N [facility] TempleKutfgorYPKQHSIYVS0609-13-31 09:45:00 Test Item Value Reference Range Interpretation Comments Eosinophils (test code = 6.1 See_Comment H [A utomated message] The Eosinophils) system which ge nerated this result tra nsmitted reference range : <=4.0. The reference r eric was not used to int erpret this result as normal/abnormal . [facility] TempleEzlorsaRNKKRVLFLF1403-85-65 09:45:00 Test Item Value Reference Range Interpretation Comments Basophils (test code = 0.7 See_Comment N [Aut omated message] The Basophils) system which ge nerated this result tra nsmitted reference range : <=1.0. The reference r eric was not used to int erpret this result as normal/abnormal . [facility] TempleLwuftwjNFKCLPLPID6070-48-04 09:45:00 Test Item Value Reference Range Interpretation Comments Monocytes # (test code 0.7 See_Comment N [Aut omated message] The = Monocytes #) system which generated this result tra nsmitted reference range : <=0.8. The reference r eric was not used to int erpret this result as normal/abnormal . [facility] TempleOvlqdthADDXEUEDRI2719-06-36 09:45:00 Test Item Value Reference Range Interpretation Comments Lymphocytes # (test code = Lymphocytes 2.5 1.0-5.5 N #) [facility] TempleEavnbewSDESSEQHGO1731-65-54 09:45:00 Test Item Value Reference Range Interpretation Comments Segs (test code = Segs) 54.6 45.0-75.0 N [facility] TempleCinrzfoQSQKUBXYHT6079-91-02 09:45:00 Test Item Value Reference Range Interpretation Comments Lymphocytes (test code = Lymphocytes) 30.1 20.0-40.0 N [facility] CenterMhkogifAEWXPBFTN8318-75-88 09:45:00 Test Item Value Reference Range Interpretation Comments pO2 Art (test code = pO2 Art) 62 80-100 L [facility] CenterHvpitvzCAEKGDJLB0461-64-28 09:45:00 Test Item Value Reference Range Interpretation Comments HCO3 Art (test code = HCO3 Art) 30 22-26 H [facility] CenterBhqdqvoYFPPRHAZQ0944-96-47 09:45:00 Test Item Value Reference Range Interpretation Comments pCO2 Art (test code = pCO2 Art) 54 35-45 H [facility] CenterZxpijgrZBCXWVLVV3461-94-54 09:45:00 Test Item Value Reference Range Interpretation Comments BE Art (test code = 4 See_Comment H [Automa thelma message] The BE Art) system which ge nerated this result transmit thelma reference range : <=2. The reference range was not used to interpr et this result as zana l/abnormal. [facility] CenterTguwfqyBUTQEVNYW6908-05-91 09:45:00 Test Item Value Reference Range Interpretation Comments O2 Sat Art (test code = O2 Sat Art) 92.0 95.0-100.0 L [facility] CenterUtbmgiuIBDLETXIB1666-90-43 09:45:00 Test Item Value Reference Range Interpretation Comments pH Art (test code = pH Art) 7.36 7.35-7.45 N [facility] CenterPpzrbwwPXDTGJEFV4371-47-43 09:45:00 Test Item Value Reference Range Interpretation Comments Allens Art (test code = N/A (06/10/2012 N Allens Art) 04:45:00) [facility] CenterMlinibkYKMTAOUVH3936-00-75 09:45:00 Test Item Value Reference Range Interpretation Comments Mode Art (test code = Mode Art) Room Air [facility] CenterPmyposcFPYVPQRKI2640-25-53 09:45:00 Test Item Value Reference Range Interpretation Comments Site Art (test code = A Line (06/10/2012 N Site Art) 04:45:00) [facility] CenterPhsnsgvWLXXFDRDA1413-54-04 09:45:00 Test Item Value Reference Range Interpretation Comments FiO2 Art (test code = FiO2 Art) 21.0 [facility] CenterAwbnasbIOCLFBAAF8983-14-15 09:45:00 Test Item Value Reference Range Interpretation Comments AGAP (test code = AGAP) 8.1 10.0-20.0 L [facility] [facility] CenterKbxzzdhTKRPLVXXM5021-04-35 09:45:00 Test Item Value Reference Range Interpretation Comments Chloride Lvl (test code = Chloride Lvl) 107 95-109 N [facility] CenterUwiqluxJEDBGSWJE4480-99-11 09:45:00 Test Item Value Reference Range Interpretation Comments Calcium Lvl (test code = Calcium Lvl) 8.4 8.5-10.5 L [facility] CenterPtawwspEVIRSJUKB3958-72-66 09:45:00 Test Item Value Reference Range Interpretation Comments CO2 (test code = CO2) 30 24-32 N [facility] CenterLjrljjjXBHCPLZDD1430-07-62 09:45:00 Test Item Value Reference Range Interpretation Comments BUN (test code = BUN) 8 7-22 N [facility] CenterAloyokhWRXPYZRHU2047-28-80 09:45:00 Test Item Value Reference Range Interpretation Comments Creatinine Lvl (test code = Creatinine 0.7 0.5-1.4 N Lvl) [facility] CenterVmhyoipULJWPEFHI8631-90-96 09:45:00 Test Item Value Reference Range Interpretation Comments Sodium Lvl (test code = Sodium Lvl) 141 135-145 N [facility] CenterEcnfsflEFYTYZANV2209-20-45 09:45:00 Test Item Value Reference Range Interpretation Comments Potassium Lvl (test code = Potassium 4.1 3.5-5.1 N Lvl) [facility] CenterCekccprEJHHMEGBL4480-92-24 09:45:00 Test Item Value Reference Range Interpretation Comments Glucose Lvl (test code = Glucose Lvl) 114 70-99 H [facility] TempleJnepfmnXUJLXQTRGC6017-79-56 09:45:00 Test Item Value Reference Range Interpretation Comments MCH (test code = MCH) 28.2 pg 27.0-31.0 N [facility] TempleNubqulwKZIDUUDGIC5425-48-38 09:45:00 Test Item Value Reference Range Interpretation Comments MPV (test code = MPV) 8.7 7.4-10.4 N [facility] TempleMxkqoagGGQPULOKUZ0623-55-52 09:45:00 Test Item Value Reference Range Interpretation Comments RDW (test code = RDW) 13.7 11.5-14.5 N [facility] TempleAlyedofLPFPXFACAT1500-35-09 09:45:00 Test Item Value Reference Range Interpretation Comments MCHC (test code = MCHC) 33.8 32.0-36.0 N [facility] TempleHjveywnMEGOQIIJOG2290-54-01 09:45:00 Test Item Value Reference Range Interpretation Comments Platelet (test code = Platelet) 200 133-450 N [facility] TempleAtwsrwiEOAAYNHTFR0588-88-29 09:45:00 Test Item Value Reference Range Interpretation Comments MCV (test code = MCV) 83.6 81.0-99.0 N [facility] TempleSzdgoduRYEROBGZWD1692-84-16 09:45:00 Test Item Value Reference Range Interpretation Comments Hgb (test code = Hgb) 10.4 12.0-16.0 L [facility] TempleKwkljlhQVSBSTFLKX7506-06-70 09:45:00 Test Item Value Reference Range Interpretation Comments Hct (test code = Hct) 30.9 36.0-48.0 L [facility] TempleRdbnrrbODFGEZWNAA3506-88-81 09:45:00 Test Item Value Reference Range Interpretation Comments RBC (test code = RBC) 3.70 4.20-5.40 L [facility] TempleEfxclcdNPBQMYVNWK1818-10-65 09:45:00 Test Item Value Reference Range Interpretation Comments WBC (test code = WBC) 8.4 3.7-10.4 N [facility] TempleKertwspVYOEKIQLSV7861-59-58 09:45:00 Test Item Value Reference Range Interpretation Comments Eosinophils # (test code 0.5 See_Comment N [A utomated message] The = Eosinophils #) system whic h generated this result tra nsmitted reference range : <=0.5. The reference r eric was not used to int erpret this result as normal/abnormal . [facility] TempleUtfuqmhISIZUHVKOW9922-01-35 09:45:00 Test Item Value Reference Range Interpretation Comments Basophils # (test code 0.1 See_Comment N [Aut omated message] The = Basophils #) system which generated this result tra nsmitted reference range : <=0.2. The reference r eric was not used to int erpret this result as normal/abnormal . [facility] TempleMztaofaJNPYVLAJWM6058-52-46 09:45:00 Test Item Value Reference Range Interpretation Comments Segs-Bands # (test code = Segs-Bands #) 4.6 1.5-8.1 N [facility] TempleAgtqrvrTZYCMAXFSE9556-89-78 09:45:00 Test Item Value Reference Range Interpretation Comments Monocytes (test code = Monocytes) 8.5 2.0-12.0 N [facility] TempleWpjfsvvVHQRQSDGPM1269-21-30 09:45:00 Test Item Value Reference Range Interpretation Comments Eosinophils (test code = 6.1 See_Comment H [A utomated message] The Eosinophils) system which ge nerated this result tra nsmitted reference range : <=4.0. The reference r eric was not used to int erpret this result as normal/abnormal . [facility] TempleSsvfxmxSIDDRTSCFR5979-07-62 09:45:00 Test Item Value Reference Range Interpretation Comments Basophils (test code = 0.7 See_Comment N [Aut omated message] The Basophils) system which ge nerated this result tra nsmitted reference range : <=1.0. The reference r eric was not used to int erpret this result as normal/abnormal . [facility] TempleEolocsgFWUHBNXBZP8441-38-34 09:45:00 Test Item Value Reference Range Interpretation Comments Monocytes # (test code 0.7 See_Comment N [Aut omated message] The = Monocytes #) system which generated this result tra nsmitted reference range : <=0.8. The reference r eric was not used to int erpret this result as normal/abnormal . [facility] TempleYwdfflrNDXWIKFCGY3326-31-03 09:45:00 Test Item Value Reference Range Interpretation Comments Lymphocytes # (test code = Lymphocytes 2.5 1.0-5.5 N #) [facility] TempleXpevlfbIGCFEGHDKT4919-67-27 09:45:00 Test Item Value Reference Range Interpretation Comments Segs (test code = Segs) 54.6 45.0-75.0 N [facility] TempleQxpjuxeSYXSTRXLUD1400-41-83 09:45:00 Test Item Value Reference Range Interpretation Comments Lymphocytes (test code = Lymphocytes) 30.1 20.0-40.0 N [facility] CenterJljbrogTOOVZCYBD9078-87-84 09:45:00 Test Item Value Reference Range Interpretation Comments pO2 Art (test code = pO2 Art) 62 80-100 L [facility] CenterThmogqiXPEJXDWFE4247-50-08 09:45:00 Test Item Value Reference Range Interpretation Comments HCO3 Art (test code = HCO3 Art) 30 22-26 H [facility] CenterWhdslecIGCPGAXMM9339-68-91 09:45:00 Test Item Value Reference Range Interpretation Comments pCO2 Art (test code = pCO2 Art) 54 35-45 H [facility] CenterGidgmeiEHDMIRVVD1412-51-64 09:45:00 Test Item Value Reference Range Interpretation Comments BE Art (test code = 4 See_Comment H [Automa thelma message] The BE Art) system which ge nerated this result transmit thelma reference range : <=2. The reference range was not used to interpr et this result as zana l/abnormal. [facility] CenterYpqqogoIQOBHIGZJ7701-95-02 09:45:00 Test Item Value Reference Range Interpretation Comments O2 Sat Art (test code = O2 Sat Art) 92.0 95.0-100.0 L [facility] CenterIyxuvahHNDMGCZOV8003-66-57 09:45:00 Test Item Value Reference Range Interpretation Comments pH Art (test code = pH Art) 7.36 7.35-7.45 N [facility] CenterFnsupbfGXVJSSYAO9309-61-16 09:45:00 Test Item Value Reference Range Interpretation Comments Allens Art (test code = N/A (06/10/2012 N Allens Art) 04:45:00) [facility] CenterHxofmhrVDXBJLUIM5175-65-99 09:45:00 Test Item Value Reference Range Interpretation Comments Mode Art (test code = Mode Art) Room Air [facility] CenterYpdkdqoQMSQAANHK2573-71-41 09:45:00 Test Item Value Reference Range Interpretation Comments Site Art (test code = A Line (06/10/2012 N Site Art) 04:45:00) [facility] CenterMvrceqwKBFPCDQRN5681-38-98 09:45:00 Test Item Value Reference Range Interpretation Comments FiO2 Art (test code = FiO2 Art) 21.0 [facility] CenterHxmztzlDVJFBPUXL7465-66-27 09:45:00 Test Item Value Reference Range Interpretation Comments AGAP (test code = AGAP) 8.1 10.0-20.0 L [facility] CenterExvspttCHQYUAALA1429-40-64 09:45:00 Test Item Value Reference Range Interpretation Comments Chloride Lvl (test code = Chloride Lvl) 107 95-109 N [facility] CenterLklkmjvJXFNDUXNZ3053-26-02 09:45:00 Test Item Value Reference Range Interpretation Comments Calcium Lvl (test code = Calcium Lvl) 8.4 8.5-10.5 L [facility] CenterDjtcvckOKEYVNLFT7801-55-40 09:45:00 Test Item Value Reference Range Interpretation Comments CO2 (test code = CO2) 30 24-32 N [facility] CenterOtfrkstUDSPBWYOW9303-15-64 09:45:00 Test Item Value Reference Range Interpretation Comments BUN (test code = BUN) 8 7-22 N [facility] CenterItlumgyGVCNVIKAY5493-50-08 09:45:00 Test Item Value Reference Range Interpretation Comments Creatinine Lvl (test code = Creatinine 0.7 0.5-1.4 N Lvl) [facility] CenterAkkkznnQHUPWUUEH0815-17-42 09:45:00 Test Item Value Reference Range Interpretation Comments Sodium Lvl (test code = Sodium Lvl) 141 135-145 N [facility] CenterAcmscthHAPTOQUKD8576-52-58 09:45:00 Test Item Value Reference Range Interpretation Comments Potassium Lvl (test code = Potassium 4.1 3.5-5.1 N Lvl) [facility] CenterGtmlwbcKGOXCGZNI1122-96-07 09:45:00 Test Item Value Reference Range Interpretation Comments Glucose Lvl (test code = Glucose Lvl) 114 70-99 H [facility] TempleWkyprquFDKUFENTNH6309-14-50 09:45:00 Test Item Value Reference Range Interpretation Comments MCH (test code = MCH) 28.2 pg 27.0-31.0 N [facility] TempleNdpusquYTSZYHTMXX6491-35-86 09:45:00 Test Item Value Reference Range Interpretation Comments MPV (test code = MPV) 8.7 7.4-10.4 N [facility] TempleYulukbsXKKMTOEBZC0293-05-45 09:45:00 Test Item Value Reference Range Interpretation Comments RDW (test code = RDW) 13.7 11.5-14.5 N [facility] TempleVvfxfzyVKIXCQENNF3946-52-74 09:45:00 Test Item Value Reference Range Interpretation Comments MCHC (test code = MCHC) 33.8 32.0-36.0 N [facility] TempleJuweduaKMQSOWVWUM2125-00-18 09:45:00 Test Item Value Reference Range Interpretation Comments Platelet (test code = Platelet) 200 133-450 N [facility] TempleOvtzzzwTSRYNUSHKM4594-82-56 09:45:00 Test Item Value Reference Range Interpretation Comments MCV (test code = MCV) 83.6 81.0-99.0 N [facility] TempleHjkvhjuLDOWAKHXOD3550-92-95 09:45:00 Test Item Value Reference Range Interpretation Comments Hgb (test code = Hgb) 10.4 12.0-16.0 L [facility] TempleVuonqayOWSDJWNSMU4813-10-07 09:45:00 Test Item Value Reference Range Interpretation Comments Hct (test code = Hct) 30.9 36.0-48.0 L [facility] TempleHxrnrnyWIONBSQBBE7277-93-15 09:45:00 Test Item Value Reference Range Interpretation Comments RBC (test code = RBC) 3.70 4.20-5.40 L [facility] TempleOwabscpAVDBAPKDJQ8410-85-25 09:45:00 Test Item Value Reference Range Interpretation Comments WBC (test code = WBC) 8.4 3.7-10.4 N [facility] TempleHdfxpajNTRRIMNUBS1156-41-00 09:45:00 Test Item Value Reference Range Interpretation Comments Eosinophils # (test code 0.5 See_Comment N [A utomated message] The = Eosinophils #) system [facility] h generated this result tra nsmitted reference range : <=0.5. The reference r eric was not used to int erpret this result as normal/abnormal . [facility] TempleDtdhfokOIKEETFDXC5793-01-34 09:45:00 Test Item Value Reference Range Interpretation Comments Basophils # (test code 0.1 See_Comment N [Aut omated message] The = Basophils #) system which generated this result tra nsmitted reference range : <=0.2. The reference r eric was not used to int erpret this result as normal/abnormal . [facility] TempleCryswluQORTYZRRGM2471-26-83 09:45:00 Test Item Value Reference Range Interpretation Comments Segs-Bands # (test code = Segs-Bands #) 4.6 1.5-8.1 N [facility] TempleIhwizkcOYUIWTHPHI8995-16-86 09:45:00 Test Item Value Reference Range Interpretation Comments Monocytes (test code = Monocytes) 8.5 2.0-12.0 N [facility] TempleKifgyvkQPVSONPQXC5894-05-64 09:45:00 Test Item Value Reference Range Interpretation Comments Eosinophils (test code = 6.1 See_Comment H [A utomated message] The Eosinophils) system which ge nerated this result tra nsmitted reference range : <=4.0. The reference r eric was not used to int erpret this result as normal/abnormal . [facility] TempleReepwzhDZACXSPAKQ2193-77-80 09:45:00 Test Item Value Reference Range Interpretation Comments Basophils (test code = 0.7 See_Comment N [Aut omated message] The Basophils) system which ge nerated this result tra nsmitted reference range : <=1.0. The reference r eric was not used to int erpret this result as normal/abnormal . [facility] TempleMerfvbdHJYKDUEYBP6017-13-40 09:45:00 Test Item Value Reference Range Interpretation Comments Monocytes # (test code 0.7 See_Comment N [Aut omated message] The = Monocytes #) system which generated this result tra nsmitted reference range : <=0.8. The reference r eric was not used to int erpret this result as normal/abnormal . [facility] TempleEvsydukDJYEBIBRWI4178-90-15 09:45:00 Test Item Value Reference Range Interpretation Comments Lymphocytes # (test code = Lymphocytes 2.5 1.0-5.5 N #) [facility] TempleXfsjebnKNQGGQMEEP7077-76-35 09:45:00 Test Item Value Reference Range Interpretation Comments Segs (test code = Segs) 54.6 45.0-75.0 N [facility] TempleWsgzkgwUUWEGYQHZF6047-31-65 09:45:00 Test Item Value Reference Range Interpretation Comments Lymphocytes (test code = Lymphocytes) 30.1 20.0-40.0 N [facility] GLUCOSE LVBUHIN6621-53-07 01:43:00 Test Item Value Reference Range Interpretation Comments Comment1 (test code = Comment1) [facility] GLUCOSE HGBLERC3145-32-33 01:43:00 Test Item Value Reference Range Interpretation Comments Comment1 (test code = Comment1) [facility] GLUCOSE WAWDTMP5998-00-90 01:43:00 Test Item Value Reference Range Interpretation Comments Comment1 (test code = Comment1) Not[facility]2012-09-26 17:10:00 Test Item Value Reference Range Interpretation Comments BE Art (test code = -3 See_Comment L [Automa thelma message] The BE Art) system which ge nerated this result transmit thelma reference range : <=2. The reference range was not used to interpr et this result as zana l/abnormal. [facility] CenterPbmdeepXMXPXJJUL2697-88-61 17:10:00 Test Item Value Reference Range Interpretation Comments HCO3 Art (test code = HCO3 Art) 24 22-26 N [facility] CenterPfbwbzfSFMWORUAE0364-90-59 17:10:00 Test Item Value Reference Range Interpretation Comments pO2 Art (test code = pO2 Art) 219 80-100 H [facility] CenterTugzmnwWHLUUVTOF0564-00-72 17:10:00 Test Item Value Reference Range Interpretation Comments O2 Sat Art (test code = O2 Sat Art) 99.4 95.0-100.0 N [facility] CenterBeckaytTNDHAMAKU2342-91-47 17:10:00 Test Item Value Reference Range Interpretation Comments Site Art (test code = A Line (06/09/2012 N Site Art) 12:10:00) [facility] CenterAgkxamrAUNFZENTW1168-76-52 17:10:00 Test Item Value Reference Range Interpretation Comments Mode Art (test code = SM (06/09/2012 N Mode Art) 12:10:00) [facility] CenterTgqterySCUZGVGXY5472-30-64 17:10:00 Test Item Value Reference Range Interpretation Comments Flow Art (test code = Flow Art) 7.0 [facility] CenterZbrkdofLUISUTXNS9490-02-59 17:10:00 Test Item Value Reference Range Interpretation Comments Allens Art (test code = N/A (06/09/2012 N Allens Art) 12:10:00) [facility] CenterVuertxoQQAOZQAXN2622-70-61 17:10:00 Test Item Value Reference Range Interpretation Comments pCO2 Art (test code = pCO2 Art) 46 35-45 H [facility] CenterSdpuixfFOQBKHKPZ7191-07-25 17:10:00 Test Item Value Reference Range Interpretation Comments pH Art (test code = pH Art) 7.32 7.35-7.[address] [facility]DxcrcbeUSGAVQLOA8673-25-30 17:10:00 Test Item Value Reference Range Interpretation Comments BE Art (test code = -3 See_Comment L [Automa thelma message] The BE Art) system which ge nerated this result transmit thelma reference range : <=2. The reference range was not used to interpr et this result as zana l/abnormal. [facility] CenterDsmzmzyGKYYQLECO2596-57-05 17:10:00 Test Item Value Reference Range Interpretation Comments HCO3 Art (test code = HCO3 Art) 24 22-26 N [facility] CenterNjzflnpJWQQCICCJ8633-03-06 17:10:00 Test Item Value Reference Range Interpretation Comments pO2 Art (test code = pO2 Art) 219 80-100 H [facility] CenterTvkzevaGUQWNGUDA3669-05-43 17:10:00 Test Item Value Reference Range Interpretation Comments O2 Sat Art (test code = O2 Sat Art) 99.4 95.0-100.0 N [facility] CenterTkeajvsNEKOHXGPR0141-29-00 17:10:00 Test Item Value Reference Range Interpretation Comments Site Art (test code = A Line (06/09/2012 N Site Art) 12:10:00) [facility] CenterWltfsxoYHHKEXQTT6369-08-89 17:10:00 Test Item Value Reference Range Interpretation Comments Mode Art (test code = SM (06/09/2012 N Mode Art) 12:10:00) [facility] CenterTxpycgdZFHLPCJQQ9129-99-99 17:10:00 Test Item Value Reference Range Interpretation Comments Flow Art (test code = Flow Art) 7.0 [facility] CenterOexpeyrPVSWHJWGF6237-81-13 17:10:00 Test Item Value Reference Range Interpretation Comments Allens Art (test code = N/A (06/09/2012 N Allens Art) 12:10:00) [facility] CenterHvoosicZVDIGGBUZ4971-90-14 17:10:00 Test Item Value Reference Range Interpretation Comments pCO2 Art (test code = pCO2 Art) 46 35-45 H [facility] CenterPambxjeQSVGYQJQX1778-34-82 17:10:00 Test Item Value Reference Range Interpretation Comments pH Art (test code = pH Art) 7.32 7.35-7.45 L [facility] CenterUsgcfzfXEZPGEMLZ5165-48-73 17:10:00 Test Item Value Reference Range Interpretation Comments BE Art (test code = -3 See_Comment L [Automa thelma message] The BE Art) system which ge nerated this result transmit thelma reference range : <=2. The reference range was not used to interpr et this result as zana l/abnormal. [facility] CenterGcpnjynPELBCUEJP3514-04-96 17:10:00 Test Item Value Reference Range Interpretation Comments HCO3 Art (test code = HCO3 Art) 24 22-26 N [facility] CenterHhmhuffMMFLWTEDF0738-92-37 17:10:00 Test Item Value Reference Range Interpretation Comments pO2 Art (test code = pO2 Art) 219 80-100 H [facility] CenterZobvuspWDCBVDAOL0197-42-41 17:10:00 Test Item Value Reference Range Interpretation Comments O2 Sat Art (test code = O2 Sat Art) 99.4 95.0-100.0 N [facility] CenterOxmxrhzUCJSQDVDR7443-41-15 17:10:00 Test Item Value Reference Range Interpretation Comments Site Art (test code = A Line (06/09/2012 N Site Art) 12:10:00) [facility] CenterPdzofcaPANKZBDSX5895-02-75 17:10:00 Test Item Value Reference Range Interpretation Comments Mode Art (test code = SM (06/09/2012 N Mode Art) 12:10:00) [facility] JtecfofBOIPJVGUT8284-25-60 17:10:00 Test Item Value Reference Range Interpretation Comments Flow Art (test code = Flow Art) 7.0 [facility] CenterBjsfjoqNPPJJPQIN1283-77-90 17:10:00 Test Item Value Reference Range Interpretation Comments Allens Art (test code = N/A (06/09/2012 N Allens Art) 12:10:00) [facility] CenterAxvstcmWXQYIRRVG8041-56-77 17:10:00 Test Item Value Reference Range Interpretation Comments pCO2 Art (test code = pCO2 Art) 46 35-45 H [facility] CenterTzdpjlxBUNZNQZST9294-31-14 17:10:00 Test Item Value Reference Range Interpretation Comments pH Art (test code = pH Art) 7.32 7.35-7.[address] [facility] HospitalBACTERIAL - QVHQMWHH3911-84-13 17:00:00 Test Item Value Reference Range Interpretation Comments MRSA by PCR (test Negative 1(06/09/2012 N code = MRSA by PCR) 12:00:00) [facility] CenterQapbwejQNMSGUPJL8891-43-19 17:00:00 Test Item Value Reference Range Interpretation Comments Glucose Lvl (test code = Glucose Lvl) 148 70-99 H [facility] CenterIloaaqeHVKFSPJYK4929-59-03 17:00:00 Test Item Value Reference Range Interpretation Comments BUN (test code = BUN) 11 7-22 N [facility] CenterGeetjjwIZSZREEDH2105-32-23 17:00:00 Test Item Value Reference Range Interpretation Comments Sodium Lvl (test code = Sodium Lvl) 143 135-145 N [facility] CenterWkzlrfqIPADAEHHA5767-08-78 17:00:00 Test Item Value Reference Range Interpretation Comments Creatinine Lvl (test code = Creatinine 0.8 0.5-1.4 N Lvl) [facility] CenterLofsozaZUKVPOVMV8970-77-60 17:00:00 Test Item Value Reference Range Interpretation Comments Calcium Lvl (test code = Calcium Lvl) 8.2 8.5-10.5 L [facility] CenterDeelckpZDSPMBKCH2579-70-22 17:00:00 Test Item Value Reference Range Interpretation Comments Chloride Lvl (test code = Chloride Lvl) 108 95-109 N [facility] CenterQjxfxfvBNSRIUQRN2388-61-07 17:00:00 Test Item Value Reference Range Interpretation Comments CO2 (test code = CO2) 29 24-32 N [facility] CenterHvacnoeVOZYFQBJS5083-80-92 17:00:00 Test Item Value Reference Range Interpretation Comments Potassium Lvl (test code = Potassium 3.8 3.5-5.1 N Lvl) [facility] CenterQjajyxkIVWCWIFWL1609-02-51 17:00:00 Test Item Value Reference Range Interpretation Comments AGAP (test code = AGAP) 9.8 10.0-20.0 L [facility] TempleYxwdqisJXUPHWGAAP1218-57-25 17:00:00 Test Item Value Reference Range Interpretation Comments Basophils # (test code 0.0 See_Comment N [Aut omated message] The = Basophils #) system which generated this result tra nsmitted reference range : <=0.2. The reference r eric was not used to int erpret this result as normal/abnormal . [facility] TempleAawsngeKZXPGPZOUJ1857-65-59 17:00:00 Test Item Value Reference Range Interpretation Comments Eosinophils # (test code 0.4 See_Comment N [A utomated message] The = Eosinophils #) system whic h generated this result tra nsmitted reference range : <=0.5. The reference r eric was not used to int erpret this result as normal/abnormal . [facility] TempleQivomaqHLVFOPSGLL2009-25-68 17:00:00 Test Item Value Reference Range Interpretation Comments Monocytes # (test code 0.5 See_Comment N [Aut omated message] The = Monocytes #) system which generated this result tra nsmitted reference range : <=0.8. The reference r eric was not used to int erpret this result as normal/abnormal . [facility] TempleGzdoyosIJVJECKBAH4989-20-28 17:00:00 Test Item Value Reference Range Interpretation Comments Lymphocytes # (test code = Lymphocytes 3.2 1.0-5.5 N #) [facility] TempleDgrpshvICSUFTDVAO0188-85-59 17:00:00 Test Item Value Reference Range Interpretation Comments Segs-Bands # (test code = Segs-Bands #) 3.7 1.5-8.1 N [facility] TempleScsbshqUUGYUZRTUS8053-39-93 17:00:00 Test Item Value Reference Range Interpretation Comments Basophils (test code = 0.5 See_Comment N [Aut omated message] The Basophils) system which ge nerated this result tra nsmitted reference range : <=1.0. The reference r eric was not used to int erpret this result as normal/abnormal . [facility] TemplePlnbaszPGSJFXNWYS9623-13-18 17:00:00 Test Item Value Reference Range Interpretation Comments Eosinophils (test code = 5.0 See_Comment H [A utomated message] The Eosinophils) system which ge nerated this result tra nsmitted reference range : <=4.0. The reference r eric was not used to int erpret this result as normal/abnormal . [facility] TempleUvefpdfWGTUXBJJLK9382-23-01 17:00:00 Test Item Value Reference Range Interpretation Comments Monocytes (test code = Monocytes) 6.3 2.0-12.0 N [facility] TempleNjzggbnXLHGZVLHEJ9678-68-27 17:00:00 Test Item Value Reference Range Interpretation Comments Segs (test code = Segs) 47.0 45.0-75.0 N [facility] TempleAgckeyaIEALSGOSAG5694-47-65 17:00:00 Test Item Value Reference Range Interpretation Comments Lymphocytes (test code = Lymphocytes) 41.2 20.0-40.0 H [facility] TempleBxrwrbsFCSFWEYUXA9772-32-54 17:00:00 Test Item Value Reference Range Interpretation Comments Platelet (test code = Platelet) 191 133-450 N [facility] TempleAficchjODKUZOANWL7592-46-43 17:00:00 Test Item Value Reference Range Interpretation Comments RDW (test code = RDW) 13.9 11.5-14.5 N [facility] TempleLsecofuULACIOGXAL5291-26-02 17:00:00 Test Item Value Reference Range Interpretation Comments MCHC (test code = MCHC) 33.2 32.0-36.0 N [facility] TempleTokzcbyELIHDOZSVM3976-13-88 17:00:00 Test Item Value Reference Range Interpretation Comments MPV (test code = MPV) 8.4 7.4-10.4 N [facility] TempleOuhxttlETKYFVFLAW5567-08-53 17:00:00 Test Item Value Reference Range Interpretation Comments MCH (test code = MCH) 27.7 pg 27.0-31.0 N [facility] TempleGntbjxsOPWNWAZNDI7325-26-77 17:00:00 Test Item Value Reference Range Interpretation Comments WBC (test code = WBC) 7.8 3.7-10.4 N [facility] TempleOklxgsxMIFTEJHCGW3287-98-90 17:00:00 Test Item Value Reference Range Interpretation Comments MCV (test code = MCV) 83.6 81.0-99.0 N [facility]PjszjevGNYCXEPKFT2679-25-10 17:00:00 Test Item Value Reference Range Interpretation Comments Hct (test code = Hct) 30.5 36.0-48.0 L [facility] MichiganDligkquCSXTZITLUB8603-91-25 17:00:00 Test Item Value Reference Range Interpretation Comments Hgb (test code = Hgb) 10.1 12.0-16.0 L [facility] MichiganOravkvjQCBETVDDCZ6227-68-38 17:00:00 Test Item Value Reference Range Interpretation Comments RBC (test code = RBC) 3.65 4.20-5.[address] [facility] - RRVSDITV3966-59-79 17:00:00 Test Item Value Reference Range Interpretation Comments MRSA by PCR (test Negative 1(06/09/2012 N code = MRSA by PCR) 12:00:00) [facility]WuvbpqvUDDVYZQYW3971-95-11 17:00:00 Test Item Value Reference Range Interpretation Comments Glucose Lvl (test code = Glucose Lvl) 148 70-99 H [facility] CenterZjdcoyfNRWUMXBOJ7924-60-82 17:00:00 Test Item Value Reference Range Interpretation Comments BUN (test code = BUN) 11 7-22 N [facility] CenterZgzldgvUGISWHUIC0114-30-97 17:00:00 Test Item Value Reference Range Interpretation Comments Sodium Lvl (test code = Sodium Lvl) 143 135-145 N [facility] CenterBfvwcfoYXOJVNSQP9576-56-10 17:00:00 Test Item Value Reference Range Interpretation Comments Creatinine Lvl (test code = Creatinine 0.8 0.5-1.4 N Lvl) [facility] CenterOzsohdyOKHXKUMGE9824-20-85 17:00:00 Test Item Value Reference Range Interpretation Comments Calcium Lvl (test code = Calcium Lvl) 8.2 8.5-10.5 L [facility] CenterOsykaksGISQWIVHE6300-89-71 17:00:00 Test Item Value Reference Range Interpretation Comments Chloride Lvl (test code = Chloride Lvl) 108 95-109 N [facility] CenterSeqwxghTKJUMHKYF3812-00-06 17:00:00 Test Item Value Reference Range Interpretation Comments CO2 (test code = CO2) 29 24-32 N [facility] CenterRfakcuuYAORIXDFH8416-10-87 17:00:00 Test Item Value Reference Range Interpretation Comments Potassium Lvl (test code = Potassium 3.8 3.5-5.1 N Lvl) [facility] CenterCqisdyqKIUQYVWPU1667-10-32 17:00:00 Test Item Value Reference Range Interpretation Comments AGAP (test code = AGAP) 9.8 10.0-20.0 L [facility] TemplePmmpmbvQKRAETVXPN9301-98-10 17:00:00 Test Item Value Reference Range Interpretation Comments Basophils # (test code 0.0 See_Comment N [Aut omated message] The = Basophils #) system which generated this result tra nsmitted reference range : <=0.2. The reference r eric was not used to int erpret this result as normal/abnormal . [facility] TempleAglluagFRABPQSKVG5283-66-97 17:00:00 Test Item Value Reference Range Interpretation Comments Eosinophils # (test code 0.4 See_Comment N [A utomated message] The = Eosinophils #) system whic h generated this result tra nsmitted reference range : <=0.5. The reference r eric was not used to int erpret this result as normal/abnormal . [facility] TempleCpvqjoySCIEDUXEOZ6982-87-36 17:00:00 Test Item Value Reference Range Interpretation Comments Monocytes # (test code 0.5 See_Comment N [Aut omated message] The = Monocytes #) system which generated this result tra nsmitted reference range : <=0.8. The reference r eric was not used to int erpret this result as normal/abnormal . [facility] TempleEarmfooWYSPANELTF0359-70-51 17:00:00 Test Item Value Reference Range Interpretation Comments Lymphocytes # (test code = Lymphocytes 3.2 1.0-5.5 N #) [facility] TempleYxywpjiNJZDLCRUKL0747-54-98 17:00:00 Test Item Value Reference Range Interpretation Comments Segs-Bands # (test code = Segs-Bands #) 3.7 1.5-8.1 N [facility] TempleBriisejJGVVFTEECJ9636-64-81 17:00:00 Test Item Value Reference Range Interpretation Comments Basophils (test code = 0.5 See_Comment N [Aut omated message] The Basophils) system which ge nerated this result tra nsmitted reference range : <=1.0. The reference r eric was not used to int erpret this result as normal/abnormal . [facility] TempleJcuxabcWRYGMDRCCW1809-81-91 17:00:00 Test Item Value Reference Range Interpretation Comments Eosinophils (test code = 5.0 See_Comment H [A utomated message] The Eosinophils) system which ge nerated this result tra nsmitted reference range : <=4.0. The reference r eric was not used to int erpret this result as normal/abnormal . [facility] TempleAyycpzgUFCHDUVSDA2257-17-60 17:00:00 Test Item Value Reference Range Interpretation Comments Monocytes (test code = Monocytes) 6.3 2.0-12.0 N [facility] TempleBefbrscVODMGYNXHP8518-98-24 17:00:00 Test Item Value Reference Range Interpretation Comments Segs (test code = Segs) 47.0 45.0-75.0 N [facility] TempleQxgkhzrRPRNWHHBME0202-98-89 17:00:00 Test Item Value Reference Range Interpretation Comments Lymphocytes (test code = Lymphocytes) 41.2 20.0-40.0 H [facility] TempleAiktvfqALNBOWDEJZ7410-68-52 17:00:00 Test Item Value Reference Range Interpretation Comments Platelet (test code = Platelet) 191 133-450 N [facility] TempleKhipgalMNMAFQLPOH6445-27-50 17:00:00 Test Item Value Reference Range Interpretation Comments RDW (test code = RDW) 13.9 11.5-14.5 N [facility] TempleLnpoudmIYBOHHWDKA9349-49-75 17:00:00 Test Item Value Reference Range Interpretation Comments MCHC (test code = MCHC) 33.2 32.0-36.0 N [facility] TempleJbkjawgXOTUDDAECS4956-71-28 17:00:00 Test Item Value Reference Range Interpretation Comments MPV (test code = MPV) 8.4 7.4-10.4 N [facility] TempleKujtjnfLBFXFJJIFI9135-46-93 17:00:00 Test Item Value Reference Range Interpretation Comments MCH (test code = MCH) 27.7 pg 27.0-31.0 N [facility] TempleFdtgfytNIBDIRXYBA9370-13-11 17:00:00 Test Item Value Reference Range Interpretation Comments WBC (test code = WBC) 7.8 3.7-10.4 N [facility] TempleKyftszzRWACJBWEMP0136-90-42 17:00:00 Test Item Value Reference Range Interpretation Comments MCV (test code = MCV) 83.6 81.0-99.0 N [facility] TempleImwaczkTOEAVBHMXT3821-05-09 17:00:00 Test Item Value Reference Range Interpretation Comments Hct (test code = Hct) 30.5 36.0-48.0 L [facility]PzfhdkzEHUTCCYFDY2418-56-07 17:00:00 Test Item Value Reference Range Interpretation Comments Hgb (test code = Hgb) 10.1 12.0-16.0 L [facility] MichiganRtqnkujAIDJEHGMPQ9343-97-31 17:00:00 Test Item Value Reference Range Interpretation Comments RBC (test code = RBC) 3.65 4.20-5.[address] [facility]BACT[facility] - HVKHBFIP0835-75-66 17:00:00 Test Item Value Reference Range Interpretation Comments MRSA by PCR (test Negative 1(06/09/2012 N code = MRSA by PCR) 12:00:00) [facility] CenterRvvtdcqPZJBLXQTA0852-18-69 17:00:00 Test Item Value Reference Range Interpretation Comments Glucose Lvl (test code = Glucose Lvl) 148 70-99 H [facility] CenterLbrigqzQCZOSYBNX9408-02-03 17:00:00 Test Item Value Reference Range Interpretation Comments BUN (test code = BUN) 11 7-22 N [facility] CenterDenukfhQRMUXOBEH4404-55-41 17:00:00 Test Item Value Reference Range Interpretation Comments Sodium Lvl (test code = Sodium Lvl) 143 135-145 N [facility] CenterXwdimmfMIXIAFTZK0264-45-52 17:00:00 Test Item Value Reference Range Interpretation Comments Creatinine Lvl (test code = Creatinine 0.8 0.5-1.4 N Lvl) [facility] CenterKvxyglzUYEHUCSBX9618-05-77 17:00:00 Test Item Value Reference Range Interpretation Comments Calcium Lvl (test code = Calcium Lvl) 8.2 8.5-10.5 L [facility] CenterYklilavFRMZDZRBQ4306-09-76 17:00:00 Test Item Value Reference Range Interpretation Comments Chloride Lvl (test code = Chloride Lvl) 108 95-109 N [facility] CenterJabptarPYJOKGHFP8435-80-28 17:00:00 Test Item Value Reference Range Interpretation Comments CO2 (test code = CO2) 29 24-32 N [facility] CenterHwjcvieHMJCDIYDW9251-32-60 17:00:00 Test Item Value Reference Range Interpretation Comments Potassium Lvl (test code = Potassium 3.8 3.5-5.1 N Lvl) [facility] CenterYnlmridRLYOQPVZB8964-36-64 17:00:00 Test Item Value Reference Range Interpretation Comments AGAP (test code = AGAP) 9.8 10.0-20.0 L [facility] TempleSoobywgKVJFBVLYWN8529-49-87 17:00:00 Test Item Value Reference Range Interpretation Comments Basophils # (test code 0.0 See_Comment N [Aut omated message] The = Basophils #) system which generated this result tra nsmitted reference range : <=0.2. The reference r eric was not used to int erpret this result as normal/abnormal . [facility] TempleQfcesacCJITSDWLNI7145-04-65 17:00:00 Test Item Value Reference Range Interpretation Comments Eosinophils # (test code 0.4 See_Comment N [A utomated message] The = Eosinophils #) system whic h generated this result tra nsmitted reference range : <=0.5. The reference r eric was not used to int erpret this result as normal/abnormal . [facility] TempleCcnlstmKIPLXOHCBT9881-44-99 17:00:00 Test Item Value Reference Range Interpretation Comments Monocytes # (test code 0.5 See_Comment N [Aut omated message] The = Monocytes #) system which generated this result tra nsmitted reference range : <=0.8. The reference r eric was not used to int erpret this result as normal/abnormal . [facility] TempleEhqmeibMGXJNASVTU3726-64-35 17:00:00 Test Item Value Reference Range Interpretation Comments Lymphocytes # (test code = Lymphocytes 3.2 1.0-5.5 N #) [facility] TempleNklfltqVYCOWMVDYQ2068-45-91 17:00:00 Test Item Value Reference Range Interpretation Comments Segs-Bands # (test code = Segs-Bands #) 3.7 1.5-8.1 N [facility] TempleVznyjmjFYDDSATJNV9563-38-97 17:00:00 Test Item Value Reference Range Interpretation Comments Basophils (test code = 0.5 See_Comment N [Aut omated message] The Basophils) system which ge nerated this result tra nsmitted reference range : <=1.0. The reference r eric was not used to int erpret this result as normal/abnormal . [facility] TempleDwccwjxJMJGPBCNSZ4347-84-40 17:00:00 Test Item Value Reference Range Interpretation Comments Eosinophils (test code = 5.0 See_Comment H [A utomated message] The Eosinophils) system which ge nerated this result tra nsmitted reference range : <=4.0. The reference r eric was not used to int erpret this result as normal/abnormal . [facility] TemplePfjfghvGKPLQVBSXB4149-59-22 17:00:00 Test Item Value Reference Range Interpretation Comments Monocytes (test code = Monocytes) 6.3 2.0-12.0 N [facility] TempleWxwrbywGAYSVPSVYK0164-57-48 17:00:00 Test Item Value Reference Range Interpretation Comments Segs (test code = Segs) 47.0 45.0-75.0 N [facility] TempleXkalclrWJDMEBXAWM9160-37-18 17:00:00 Test Item Value Reference Range Interpretation Comments Lymphocytes (test code = Lymphocytes) 41.2 20.0-40.0 H [facility] TempleHgsizsnZFDSPCTVBY7759-54-55 17:00:00 Test Item Value Reference Range Interpretation Comments Platelet (test code = Platelet) 191 133-450 N [facility] TempleOysjddfHUQPRDWAKQ6534-86-87 17:00:00 Test Item Value Reference Range Interpretation Comments RDW (test code = RDW) 13.9 11.5-14.5 N [facility] TempleKknjbkxSATLIRNXVC1275-62-78 17:00:00 Test Item Value Reference Range Interpretation Comments MCHC (test code = MCHC) 33.2 32.0-36.0 N [facility] TempleLlnhztyOTHAMBNKYT4214-90-14 17:00:00 Test Item Value Reference Range Interpretation Comments MPV (test code = MPV) 8.4 7.4-10.4 N [facility] TemplePihltthSFMGPJTMKZ1068-27-63 17:00:00 Test Item Value Reference Range Interpretation Comments MCH (test code = MCH) 27.7 pg 27.0-31.0 N [facility] TempleScechaoJMHNPGKIGX9093-68-79 17:00:00 Test Item Value Reference Range Interpretation Comments WBC (test code = WBC) 7.8 3.7-10.4 N [facility] TempleIruigiaYTNFUIKNCK5166-15-74 17:00:00 Test Item Value Reference Range Interpretation Comments MCV (test code = MCV) 83.6 81.0-99.0 N [facility] TempleQjfhaauYXHRUDFEYO3494-76-37 17:00:00 Test Item Value Reference Range Interpretation Comments Hct (test code = Hct) 30.5 36.0-48.0 L [facility] TempleQjiixstOVOEIYFGCB2170-60-71 17:00:00 Test Item Value Reference Range Interpretation Comments Hgb (test code = Hgb) 10.1 12.0-16.[address] [facility]AavatocUEORJHGVVG2629-12-67 17:00:00 Test Item Value Reference Range Interpretation Comments RBC (test code = RBC) 3.65 4.20-5.40 L [facility]villeGigsTime [place] UESKEYW8923-00-68 19:00:00 Test Item Value Reference Range Interpretation Comments ABO/Rh (test code = ABO/Rh) A POS [facility] [employer] JLVGNIO3780-90-85 19:00:00 Test Item Value Reference Range Interpretation Comments Antibody Scrn (test Negative (05/31/2012 N code = Antibody Scrn) 14:00:00) [facility] Center[facility] [place] ZEFPBQA9240-80-80 19:00:00 Test Item Value Reference Range Interpretation Comments ABO/Rh (test code = ABO/Rh) A POS [facility] [employer] [place] HVTPEIJ6230-79-84 19:00:00 Test Item Value Reference Range Interpretation Comments Antibody Scrn (test Negative (05/31/2012 N code = Antibody Scrn) 14:00:00) [facility] CenterCirrus WorksGigsTime [place] BPCLXPA5219-78-79 19:00:00 Test Item Value Reference Range Interpretation Comments ABO/Rh (test code = ABO/Rh) A [facility] [employer] BSDDMAX1711-66-26 19:00:00 Test Item Value Reference Range Interpretation Comments Antibody Scrn (test Negative (05/31/2012 N code = Antibody Scrn) 14:00:00) [facility] CenterUsatudzTWESPBDLQ1057-55-00 18:50:00 Test Item Value Reference Range Interpretation Comments AST (test code = AST) 14 See_Comment N [Auto mated message] The system which ge nerated this result transmit thelma reference range : <=37. The reference range was not used to interpr et this result as zana l/abnormal. [facility] CenterPraqyurIUVOOOPCJ4249-08-38 18:50:00 Test Item Value Reference Range Interpretation Comments AGAP (test code = AGAP) 10.1 10.0-20.0 N [facility] CenterUseygzyBFNBKOMYA7417-57-79 18:50:00 Test Item Value Reference Range Interpretation Comments Glucose Lvl (test code = Glucose Lvl) 208 70-99 H [facility] CenterJrlreyvHRBKCMVQI4693-35-04 18:50:00 Test Item Value Reference Range Interpretation Comments BUN (test code = BUN) 17 7-22 N [facility] CenterVivbixzACAKIRJAA3863-82-51 18:50:00 Test Item Value Reference Range Interpretation Comments Chloride Lvl (test code = Chloride Lvl) 102 95-109 N [facility] CenterQkdakvuSWOXHETHZ2672-71-40 18:50:00 Test Item Value Reference Range Interpretation Comments Potassium Lvl (test code = Potassium 4.1 3.5-5.1 N Lvl) [facility] CenterMrhclncDOYOYCGUN7147-18-50 18:50:00 Test Item Value Reference Range Interpretation Comments Creatinine Lvl (test code = Creatinine 0.9 0.5-1.4 N Lvl) [facility] CenterZsqxshzEJPKOLKSU5287-58-74 18:50:00 Test Item Value Reference Range Interpretation Comments Sodium Lvl (test code = Sodium Lvl) 137 135-145 N [facility] CenterIdhgcaqIOLBUBZVB2553-56-91 18:50:00 Test Item Value Reference Range Interpretation Comments Calcium Lvl (test code = Calcium Lvl) 9.1 8.5-10.5 N [facility] CenterRvotxjxUMOXVZVOE0762-25-98 18:50:00 Test Item Value Reference Range Interpretation Comments CO2 (test code = CO2) 29 24-32 N [facility] TempleJqhakrjEDGMVWQWMP4360-52-22 18:50:00 Test Item Value Reference Range Interpretation Comments PTT (test code = PTT) 30.9 s 22.9-35.8 N [facility] TempleMzsrlynGVWPFYENMF0443-58-28 18:50:00 Test Item Value Reference Range Interpretation Comments PT (test code = PT) 13.0 s 12.0-14.7 N [facility] TempleUwoxdzaMIOXAVLJTN1074-84-53 18:50:00 Test Item Value Reference Range Interpretation Comments INR (test code = INR) 0.96 0.85-1.17 N [facility] CenterLewsufuHEKISBYLS2088-77-73 18:50:00 Test Item Value Reference Range Interpretation Comments AST (test code = AST) 14 See_Comment N [Auto mated message] The system which ge nerated this result transmit thelma reference range : <=37. The reference range was not used to interpr et this result as zana l/abnormal. [facility] CenterHvsjvquJKDOVBGAC2320-56-79 18:50:00 Test Item Value Reference Range Interpretation Comments AGAP (test code = AGAP) 10.1 10.0-20.0 N [facility] CenterCoezzcgBYDNLNQBY8977-29-65 18:50:00 Test Item Value Reference Range Interpretation Comments Glucose Lvl (test code = Glucose Lvl) 208 70-99 H [facility] CenterUhoyjttJQCNQNWAI9284-32-44 18:50:00 Test Item Value Reference Range Interpretation Comments BUN (test code = BUN) 17 7-22 N [facility] CenterWziwazeOHNZWPSBS5212-60-26 18:50:00 Test Item Value Reference Range Interpretation Comments Chloride Lvl (test code = Chloride Lvl) 102 95-109 N [facility] CenterCoylqlaMEWFCNXZI2087-64-54 18:50:00 Test Item Value Reference Range Interpretation Comments Potassium Lvl (test code = Potassium 4.1 3.5-5.1 N Lvl) [facility] CenterFnzzsypFGPXLFTDO1936-03-19 18:50:00 Test Item Value Reference Range Interpretation Comments Creatinine Lvl (test code = Creatinine 0.9 0.5-1.4 N Lvl) [facility] CenterWgfhpztTOGLDEFWI1300-04-11 18:50:00 Test Item Value Reference Range Interpretation Comments Sodium Lvl (test code = Sodium Lvl) 137 135-145 N [facility] CenterEryrxcxOFNFBAECC7978-72-20 18:50:00 Test Item Value Reference Range Interpretation Comments Calcium Lvl (test code = Calcium Lvl) 9.1 8.5-10.5 N [facility] CenterQfgavspHAEVTMUIB0309-18-35 18:50:00 Test Item Value Reference Range Interpretation Comments CO2 (test code = CO2) 29 24-32 N [facility] TempleGyieofaGRNNQAFDOU0341-23-99 18:50:00 Test Item Value Reference Range Interpretation Comments PTT (test code = PTT) 30.9 s 22.9-35.8 N [facility] TempleEhqbjvdLFPEKXZFGN2553-99-73 18:50:00 Test Item Value Reference Range Interpretation Comments PT (test code = PT) 13.0 s 12.0-14.7 N [facility] TempleHeyagcgGWSAUQMKJQ4827-09-91 18:50:00 Test Item Value Reference Range Interpretation Comments INR (test code = INR) 0.96 0.85-1.17 N [facility] CenterRyquqkkGVCQZXXAG9497-09-19 18:50:00 Test Item Value Reference Range Interpretation Comments AST (test code = AST) 14 See_Comment N [Auto mated message] The system which ge nerated this result transmit thelma reference range : <=37. The reference range was not used to interpr et this result as zana l/abnormal. [facility] CenterZfaieurEGPDHIDRZ1294-90-39 18:50:00 Test Item Value Reference Range Interpretation Comments AGAP (test code = AGAP) 10.1 10.0-20.0 N [facility] CenterLxmpsxhOBOBYKZPJ0319-88-12 18:50:00 Test Item Value Reference Range Interpretation Comments Glucose Lvl (test code = Glucose Lvl) 208 70-99 H [facility] CenterLicfsrtLPKVKIHZI9128-18-77 18:50:00 Test Item Value Reference Range Interpretation Comments BUN (test code = BUN) 17 7-22 N [facility] CenterHwewmkzALLQSVSLS2979-54-57 18:50:00 Test Item Value Reference Range Interpretation Comments Chloride Lvl (test code = Chloride Lvl) 102 95-109 N [facility] CenterCawjfenIXRSASDJD4139-81-14 18:50:00 Test Item Value Reference Range Interpretation Comments Potassium Lvl (test code = Potassium 4.1 3.5-5.1 N Lvl) [facility] CenterKlrwfdfAXCESFILX6542-01-50 18:50:00 Test Item Value Reference Range Interpretation Comments Creatinine Lvl (test code = Creatinine 0.9 0.5-1.4 N Lvl) [facility] CenterNzpgqxyNUHJWFMLL4060-10-35 18:50:00 Test Item Value Reference Range Interpretation Comments Sodium Lvl (test code = Sodium Lvl) 137 135-145 N [facility] CenterYbgswikITTVMSVPW0482-91-54 18:50:00 Test Item Value Reference Range Interpretation Comments Calcium Lvl (test code = Calcium Lvl) 9.1 8.5-10.5 N [facility] CenterEfzqkccFKYZCUQEC7019-60-29 18:50:00 Test Item Value Reference Range Interpretation Comments CO2 (test code = CO2) 29 24-32 N [facility] TempleOnoryqwOFHDGBKEGW4041-79-29 18:50:00 Test Item Value Reference Range Interpretation Comments PTT (test code = PTT) 30.9 s 22.9-35.8 N [facility] TempleDpxcydxAKZDEXJLAA2631-53-15 18:50:00 Test Item Value Reference Range Interpretation Comments PT (test code = PT) 13.0 s 12.0-14.7 N [facility] TempleSlgziiaIXHYHHBSWD7456-28-03 18:50:00 Test Item Value Reference Range Interpretation Comments INR (test code = INR) 0.96 0.85-1.17 N Rahul Martell Notes Date/Time Note Provider Source 2022-08-21 01:08:00-00:00 [id number] [facility] HCAN[facility] [address] [place] [address] PATIENT NAME: MARIAH OQUENDO ADMIT DATE: 08/14 ACCOUNT NO: [id number] ROOM NO: N.[facility] AGE: 77 REPORT TYPE: 360 - QUERY RESPONSE DOCUMENT SEX: F ADMITTING PHYSICIAN:Jane Rousseau MD ATTENDING PHYSICIAN:Jane Rousseau MD Provider Query QUERY TEXT: Clarification Conflicting Diagnosis Procedure 36 0MD Query related questions should be directed to:Maxwell debbi [facility] [place] Coding Query Helpline Based on your clinical judgement, please clarify the following conflicting documentation: [The H and p indicates Hematemedis, the DS indic ates no hematemesis, can you please clarify the patient actually has (hematemesis,no hematemesis or Other more a ppropriate diagnosis)?.] The patient's Clinical Indicators include: Hematemesis monitor f/u on cbc cont PPI GI consult: h and p 2 Denies fever, chills, syncope, black or bloody s tool, diarrhea, hematemesis, dysuria, abdominal pain, chest pain, shortness of breath No episodes of hematemesis or hemoptysis noted d uring the hospital course. : Discharge summary 08/18/2022 Options provided: -- Respond - Create new note now -- Dismiss - Not applicable / Not valid -- Dismiss - Clinically unable to determine / Un known -- Assign to another provider QUERY RESPONSE: Provider was clinically unable to determine a re sponse for this query not documented Query created by: SMA CORTEZ on 08/20/2022 5:29 AM Electronically Signed by Jane Rousseau MD on 05/05 at 0108 PATIENT NAME MARIAH OQUENDO [id number] 2022-08-18 11:24:00-00:00 [facility] ([facility]) Med Order Sheet REPORT #: [id number] REPORT STATUS: Signed DATE: 08/18/22 TIME: 112 PATIENT: MARIAH OQUENDO UNIT #: [id number] ROOM #: N.0560 BED: 1 : 46 AGE: 77 SEX: F ATTEND: Jane Rousseau MD [facility] AUTHOR: Jane Rousseau MD ATTENTION *EDITS and/or ADDENDA must be made in Patient [facility] for this note. * * Edits and ammendments created in [facility] are not visible * * in Patient Keeper or the legal medical record ([facility]). * Discharge Medication Reconciliation Discharge Meds Rec Completed. No Reconciled Orde rs. 11:2 0 Electronically Signed by Jane Rousseau MD on 02/02 at 1124 ATTENTION *EDITS and/or ADDENDA must be made in [facility] for this note. * * Edits and ammendments created in [facility] are not visible * * in Patient Keeper or the legal medical record ([facility]). * [facility] #: [id number] END OF REPORT 2022-08-18 11:20:00-00:00 [facility] ([facility]) Internal Med. D/C Summary REPORT #: [id number] REPORT STATUS: Signed DATE: 08/18/22 TIME: 1120 PATIENT: MARIAH OQUENDO UNIT #: [id number] ROOM #: N.0560 BED: 1 : 46 AGE: 77 SEX: F ATTEND: Jane Rousseau MD ADM AUTHOR: Jane Rousseau MD ATTENTION *EDITS and/or ADDENDA must be made in Patient Ke eper for this note. * * Edits and ammendments created in [employer] are not visible * * in Patient Keeper or the legal medical record ([facility]). * -- PROBLEMS/PROCEDURES -- ADMISSION DATE: 08/14/22 ADMITTING DIAGNOSES: - Constipation - COPD (chronic obstructive pulmonary disease) - Depression - Diabetes - Hematemesis - Hyponatremia - Physical debility - Polypharmacy - Stercoral colitis - Tobacco dependence DISCHARGE DATE: 08/18/22 DISCHARGE DIAGNOSES: - Constipation - COPD (chronic obstructive pulmonary disease) - Depression - Diabetes - Hematemesis - Hyponatremia - Physical debility - Polypharmacy - Stercoral colitis - Tobacco dependence -- HOSPITAL COURSE -- HOSPITAL COURSE: 77-year-old female with history of DM, tobacco abuse presents with nausea, vomiting that began last night. Denies fever, chills, syncope, black or bloody stool, diarrhea, hematemesis, dysuria, ab dominal pain, chest pain, shortness of breath. Web Developer with patient stat es patient has been coughing and vomiting blood as well and has been increasi ngly weak ct abd showedSevere fecal burden within the rect um with associated marked distention, and mild mural thickening, raising c oncern for stroke focal colitis in the appropriate clinical settin g. Presumed simple cyst within bilateral kidneys. Small right-sided pleural effusion with associat ed compressive atelectasis. Patient was started on enema laxative stool softener. KUB showed improvement in the colonic distention. Patient clinically is quinn harrison better I have requested the nursing for manual disimpaction to continue with the laxative and after bowel movement today patient can be discharged h ome. Patient had venous Doppler done in the upper ext remity negative for DVT. Patient was also evaluated by PT OT patient is nai wyatt taken care of by the family does not ambulate at home. She is functio mari at baseline. Patient is encouraged to have increase activity on discharge. Patient is on multiple psych medication with polypharmacy need s adjustment of the psych medication by her psychiatrist as an outpatient. Smoking cessation counseling given. No episodes of hematemesis or hemoptysis noted d uring the hospital course. -- DISCHARGE MEDICATIONS -- ALLERGIES: No Known Allergies (UNKNOWN - Allergy) [EXTERNAL] No Known Allergies (UNKNOWN - Externa l allergies are for display only, consider adding to medical record for drug interaction check) DISCHARGE MEDICATIONS: Atorvastatin Tab (Lipitor Tab) Oral busPIRone tablet 30 MG PO BID Ciprofloxacin Tab (Cipro Tab) 500MG PO Q12HR, Di sp: 10 tablet, Refills: 0 ClearLax 17 gram/dose oral powder (polyethylene glycol 3350) 17 GM PO DAILY, Disp: 2 x 120 gram bottle, Refills: 0 glipiZIDE Tab (Glucotrol Tab) 5 MG PO DAILY Lexapro tab (escitalopram oxalate) 20 MG PO LA Y Lisinopril Tab (Prinivil Tab) 10 MG PO DAILY metroNIDAZOLE Tab (Flagyl Tab) 500MG PO Q8HR, Di sp: 15 tablet, Refills: 0 Mirtazapine Tab (Remeron Tab) 15 MG PO BEDTIME Promethazine Tab (Phenergan Tab) 25 MG PO Q6H DE N nausea/vomiting Senna Tab (Senokot Tab) 8.6 mg 2TAB PO DAILY, Di sp: 30 tablet, Refills: 0 Seroquel tab (quetiapine) 300 MG PO BEDTIME -- DISCHARGE INSTRUCTIONS -- PK DISCHARGE ORDERS: DC Parameters and Additional Instructions Details: Discharge order with parameter:: Yes Discharge to:: Home/Self Care Notify attending when discharge parameter met:: No Other Parameters if options above do not apply:: After BM today Diet:: Soft Activity:: As Tolerated Additional Discharge Routines:: PCP Follow-Up, C onsultant Follow-Up ADDTIONAL DISCHARGE INSTRUCTIONS: Emergency Instructions: The patient was instruct ed to present to the nearest Emergency Department or call 911 should their sy mptoms return or worsen.; -- OBJECTIVE -- VITALS (08/17 11:20 - 08/18 11:20): Temperature C: 36.9 (36.8 - 37.2) Temperature source: Oral Pulse Rate 87 (85 - 101) Respiratory rate: 16 (16 - 18) BP: 107/62 (106/48 - 142/67) -EXAM- GENERAL: in no apparent distress. EYES: conjunctiva and sclera clear, lids normal. EARS: grossly normal hearing. LUNGS: decreassed breath sound HEART: rhythm regular ABDOMEN: Soft, non-tender, no organomegaly, no masses noted. MUSCULOSKELETAL: decreased breath sound EXTREMITIES: No clubbing, no cyanosis, no edema. NEUROLOGICAL: decreased strength more in LE sincere mbulatory -- DATA -- LABS GLU BED (08/18/22 06:04) GLUBED 126 H CBC W/AUTO DIFF (08/18/22 04:42) WHITE BLOOD CELL 8.0 RED BLOOD CELL 3.45 L HEMOGLOBIN 9.3L L HEMATOCRIT 29.4L L MEAN CELL VOLUME 85 MEAN CELL HGB 27.0 MEAN CELL HGB CONCENTRATION 31.6 RED CELL DISTRIBUTION WIDTH 14.5 PLATELET COUNT 286 MEAN PLATELET VOLUME 11.0 NEUTROPHIL % 61.2 IMMATURE GRANULOCYTE % 0.4 LYMPHOCYTE % 22.7 MONOCYTE % 10.7 H EOSINOPHIL % 4.5 BASOPHIL % 0.5 NUCLEATED RBC % 0.0 NEUTROPHIL # 4.9 LYMPHOCYTE # 1.82 MONOCYTE # 0.9 H EOSINOPHIL # 0.4 BASOPHIL # 0.0 COMPREHENSIVE METABOLIC PANEL (08/18/22 04:42) SODIUM 136 POTASSIUM 4.6 CHLORIDE 108 CARBON DIOXIDE 23 GLUCOSE 149H H BLOOD UREA NITROGEN 13 GLOMERULAR FILTRATION RATE >=60 max estimate CREATININE 0.90 TOTAL PROTEIN 4.8 L ALBUMIN 2.5 L CALCIUM 9.3 BILIRUBIN TOTAL 0.40 SGOT/AST 13 SGPT/ALT 13 ALKALINE PHOSPHATASE 40 L GLU BED (08/17/22 20:55) GLUBED 157 H GLU BED (08/17/22 15:57) GLUBED 202 H TEST RESULTS XR ABDOMEN 1V (08/17/22 00:00) XR ABDOMEN 1V (08/17/22 00:00) IMPRESSION: Improvement in colonic distention. XR ABDOMEN 1V (08/17/22 18:12) XR ABDOMEN 1V (08/17/22 18:12) IMPRESSION:No interval change in colonic distent ion and fecalimpaction in the rectum DUP VEIN UNI RT (08/16/22 22:07) CT ABD amp;PELVIS W/CONT (08/14/22 18:22) CT ABD amp;PELVIS W/CONT (08/14/22 18:22) IMPRESSION: Severe fecal burden within the rectu m with associated markeddistention, and mild mural thickening, galindo sing concern for strokefocal colitis in the appropriate clinical setting.Pres umed simple cyst within bilateral kidneys.Small right-sided pleural effu cesar with associated compressiveatelectasis.Additional findings as ab ove. CT CHEST W/CONTRAST (08/14/22 18:22) CT CHEST W/CONTRAST (08/14/22 18:22) IMPRESSION: Severe fecal burden within the rectu m with associated markeddistention, and mild mural thickening, galindo sing concern for strokefocal colitis in the appropriate clinical setting.Pres umed simple cyst within bilateral kidneys.Small right-sided pleural effu cesar with associated compressiveatelectasis.Additional findings as ab ove. -- QUALITY -- COMMENTS: Portions of this documentation were generated us ing voice recognitions software. As a result despite editing and correc tions, it may still contain typographical and/or contextual errors. -- ATTESTATION -- CARE ACTIVITIES / CARE COORDINATION: - I have reviewed the history and repeated the south elements - I have seen and examined this patient - I have reviewed the progress in the clinical course since the last examination - I have discussed the ousmane ent's condition with other members of the care team Signed in PatientKeeper by Jane Rousseau MD on at 11:23 Electronically Signed by Jane Rousseau MD on 02/02 at 1123 ATTENTION *EDITS and/or ADDENDA must be made in Patient Ke ep for this note. * * Edits and ammendments created in [facility] are not visible * * in Patient Keeper or the legal medical record ([facility]). * RPT #: [id number] END OF REPORT 2022-08-18 11:19:00-00:00 [facility] ([facility]) Med Order Sheet REPORT #: [id number] REPORT STATUS: Signed DATE: 08/18/22 TIME: 1119 PATIENT: MARIAH OQUENDO UNIT #: [id number] ROOM #: N.0560 BED: 1 : 46 AGE: 77 SEX: F ATTEND: Jane Rousseau MD ADM AUTHOR: Jane Rousseau MD ATTENTION *EDITS and/or ADDENDA must be made in Patient Ke ep for this note. * * Edits and ammendments created in [facility] are not visible * * in Patient Keeper or the legal medical record ([facility]). * Discharge Medication Reconciliation DISCHARGE MEDICATION LIST Atorvastatin Tab (Lipitor Tab) Dose: Oral busPIRone tablet Dose: 30 MG PO BID glipiZIDE Tab (Glucotrol Tab) Dose: 5 MG PO DAILY Lexapro tab (escitalopram oxalate) Dose: 20 MG PO DAILY Lisinopril Tab (Prinivil Tab) Dose: 10 MG PO DAILY Mirtazapine Tab (Remeron Tab) Dose: 15 MG PO BEDTIME Promethazine Tab (Phenergan Tab) Dose: 25 MG PO Q6H PRN nausea/vomiting Seroquel tab (quetiapine) Dose: 300 MG PO BEDTIME Ciprofloxacin Tab (Cipro Tab) Dose: 500MG PO Q12HR, Disp: 10 tablet, Refills: 0 metroNIDAZOLE Tab (Flagyl Tab) Dose: 500MG PO Q8HR, Disp: 15 tablet, Refills: 0 Senna Tab (Senokot Tab) Dose:8.6 mg 2TAB PO DAILY, Disp: 30 tablet, Ref ills: 0 Hosp: ClearLax 17 gram/dose oral powder (polyeth ylene glycol 3350) Dose: 17 GM PO DAILY, Disp: 2 x 120 gram bottle , Refills: 0 STOPPED HOSPITAL MEDICATIONS Dc'd: Acetaminophen Tab (Tylenol Tab) 500MG PO Q 4H PRN pain scale 1-3 (use 2nd)Dc'd: Albuterol/Ipratrop Neb Soln (Duoneb Ne b Soln) 3ML Neb RTQ6H WADc'd: Bisacodyl Supp (Dulcolax Supp) 10MG Rectal DAILY PRN constipationDc'd: Insulin (Lispro) Inj (HumaLog Inj ) LOW DOSE SLI DING SCALE SubQ ASDIRDc'd: Lactulose Oral Liquid (Enulose Oral Liquid) 30ML PO BIDDc'd: Mineral Oil Oral Liquid (Mineral Oil Oral Liquid) 30ML PO Q8HR X 6 dosesDc'd: Nicotine 14mg/24hr Patch (Nicoderm CQ 14mg/24hr Patch) 14 MG Topical DAILYDc'd: Ondansetron Inj (Zofran Inj) 4MG IV Q6H PRN naus ea and vomitingElectronically Signed in PatientKeeper by Jane Rousseau on 11:18 Electronically Signed by Jane Rousseau MD on 02/02 at 1119 ATTENTION *EDITS and/or ADDENDA must be made in [facility] for this note. * * Edits and ammendments created in [employer] are not visible * * in Patient Keeper or the legal medical record ([facility]). * RPT #: [id number] END OF REPORT 2022-08-17 11:45:00-00:00 [facility] Medicine Progress Note REPORT #: [id number] REPORT STATUS: Signed DATE: 08/17/22 TIME: 1145 PATIENT: MARIAH OQUENDO UNIT #: [id number] ROOM #: N.0560 BED: 1 : 46 AGE: 77 SEX: F ATTEND: Jane Rousseau MD ADM AUTHOR: Malcom Torres MD ATTENTION *EDITS and/or ADDENDA must be made in [facility] for this note. * * Edits and ammendments created in [employer] are not visible * * in Patient Keeper or the legal medical record ([facility]). 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 Pt appears comfortable vitals reviewed. labs reviewed consultants eval/plan noted -- OBJECTIVE -- VITALS (08/16 11:45 - 08/17 11:45): Temperature C: 36.9 (36.4 - 37.3) Temperature source: Oral Pulse Rate 105 (82 - 108) Respiratory rate: 18 (16 - 18) BP: 114/54 (113/49 - 136/86) -EXAM- GENERAL: in no apparent distress. EYES: conjunctiva and sclera clear, lids normal. EARS: grossly normal hearing. LUNGS: decreassed breath sound HEART: rhythm regular ABDOMEN: Soft, non-tender, no organomegaly, no m asses noted. MUSCULOSKELETAL: decreased breath sound EXTREMITIES: No clubbing, no cyanosis, no edema. NEUROLOGICAL: decreased strength more in LE sincere mbulatory -- DATA -- MEDICATIONS NICOTINE 14 MG TOPICAL DAILY CITALOPRAM 20 MG PO DAILY QUEtiapine FUMARATE 300 MG PO BEDTIME lisinopriL 10 MG PO DAILY MIRTAZAPINE 15 MG PO BEDTIME busPIRone HCL 30 MG PO BID CIPROFLOXACIN HCL 500 MG PO Q12HR PROMETHAZINE HCL 25 MG PO Q6H PRN IPRATROPIUM/ALBUTEROL SULFATE 3 ML NEB RTQ6H WA glipiZIDE 5 MG PO DAILY@0730 bisacodyL 10 MG RECTAL DAILY PRN ONDANSETRON HCL/PF 4 MG IV Q6H PRN SENNOSIDES 2 TAB PO DAILY ATORVASTATIN CALCIUM 10 MG PO BEDTIME metroNIDAZOLE 500 MG PO Q8HR ACETAMINOPHEN 500 MG PO Q4H PRN LACTULOSE 30 ML PO BID LABS GLU BED (08/17/22 11:08) GLUBED 238 H GLU BED (08/17/22 05:23) GLUBED 115 H GLU BED (08/16/22 23:00) GLUBED 192 H UA RFLX MICR amp;CULT IF INDICATED (08/16/22 16: 00) UA COLOR YELLOW UA APPEARANCE Clear UA GLUCOSE DIPSTICK 1+ UA BILIRUBIN DIPSTICK NEGATIVE UA KETONE DIPSTICK NEGATIVE UA SPECIFIC GRAVITY 1.008 UA BLOOD DIPSTICK NEGATIVE UA PH DIPSTICK 6.0 UA PROTEIN DIPSTICK NEGATIVE UA UROBILINOGEN DIPSTICK NEGATIVE UA NITRITE DIPSTICK NEGATIVE UA ASCORBIC ACID DIPSTICK NEGATIVE UA LEUKOCYTE ESTERASE DIPSTICK 1+ H UA WBC 0-5 UA RBC 0-5 UA EPITHELIAL CELLS RARE UA BACTERIA None UA MUCUS 1+ GLU BED (08/16/22 15:22) GLUBED 174 H Signed in PatientKeeper by Malcom Torres MD on 08/17/22 at 21:12 Electronically Signed by Malcom Torres MD on at 2112 ATTENTION *EDITS and/or ADDENDA must be made in Patient Ke eper for this note. * * Edits and ammendments created in [facility] are not visible * * in Patient Keeper or the legal medical record ([facility]). * [facility] #: [id number] END OF REPORT 2022-08-16 14:37:00-00:00 [facility] ([facility]) Internal Med. Progress Note REPORT #: [id number] REPORT STATUS: Signed DATE: 08/16/22 TIME: 1437 PATIENT: MARIAH OQUENDO UNIT #: [id number] ROOM #: N.0560 BED: 1 : 46 AGE: 77 SEX: F ATTEND: Jane Rousseau MD ADM AUTHOR: Jane Rousseau MD ATTENTION *EDITS and/or ADDENDA must be made in Patient Ke eper for this note. * * Edits and ammendments created in [employer] are not visible * * in Patient Keeper or the legal medical record ([facility]). 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 Patient overall doing betterTherap ist was in the room patient complains of weakness. She is nonambulatory at h ome. No further episode of hemoptysis noted BP stable. No CP/SOB/palp No V/D. No fever/chills labs reviewed case d/w pt/nurse consultants eval/plan noted -REVIEW OF SYSTEMS- GENERAL: weakness fatigue EYES: Negative for blurry vision. No diplopia. RESPIRATORY: cough with expectoration of blood GASTROINTESTINAL: vomiting of blood , abd pain,c onstipation GENITOURINARY: Negative for dysuria, frequency, or urgency. No gross hematuria. MUSCULOSKELETAL: weakness -- OBJECTIVE -- VITALS (08/15 14:37 - 08/16 14:37): Temperature C: 37.0 (36.7 - 37.0) Temperature source: Oral Pulse Rate 96 (86 - 96) Respiratory rate: 18 (17 - 18) BP: 149/76 (101/49 - 149/76) -EXAM- GENERAL: seen in ER EYES: pale conjunctiva LUNGS: decreassed breath sound HEART: rhythm regular ABDOMEN: soft bs positive MUSCULOSKELETAL: decreased breath sound EXTREMITIES: No clubbing, no cyanosis, no edema . NEUROLOGICAL: decreased strength more in LE sincere mbulatory -- DATA -- MEDICATIONS NICOTINE 14 MG TOPICAL DAILY CIPROFLOXACIN/D5W 400 MG IV Q12HR CITALOPRAM 20 MG PO DAILY QUEtiapine FUMARATE 300 MG PO BEDTIME lisinopriL 10 MG PO DAILY MIRTAZAPINE 15 MG PO BEDTIME SODIUM CHLORIDE 0.9% 1000 ML IV .Q20H busPIRone HCL 30 MG PO BID PROMETHAZINE HCL 25 MG PO Q6H PRN IPRATROPIUM/ALBUTEROL SULFATE 3 ML NEB RTQ6H WA metroNIDAZOLE/NS 500 MG IV Q8H glipiZIDE 5 MG PO DAILY@0730 bisacodyL 10 MG RECTAL DAILY PRN ONDANSETRON HCL/PF 4 MG IV Q6H PRN SENNOSIDES 2 TAB PO DAILY ATORVASTATIN CALCIUM 10 MG PO BEDTIME ACETAMINOPHEN 500 MG PO Q4H PRN LABS GLU BED (08/16/22 11:09) GLUBED 157 H GLU BED (08/16/22 08:51) GLUBED 142 H GLU BED (08/16/22 07:49) GLUBED 65 L COMPREHENSIVE METABOLIC PANEL (08/16/22 06:05) SODIUM 133L L POTASSIUM 3.7 CHLORIDE 103 CARBON DIOXIDE 24 GLUCOSE 54L L BLOOD UREA NITROGEN 19D D GLOMERULAR FILTRATION RATE >=60 max estimate CREATININE 0.89 TOTAL PROTEIN 5.8 L ALBUMIN 3.0 L CALCIUM 9.3 BILIRUBIN TOTAL 0.20 SGOT/AST 19 SGPT/ALT 17 ALKALINE PHOSPHATASE 51 CBC W/AUTO DIFF (08/16/22 06:05) WHITE BLOOD CELL 9.2 RED BLOOD CELL 3.74 HEMOGLOBIN 9.9L L HEMATOCRIT 31.7L L MEAN CELL VOLUME 85 MEAN CELL HGB 26.5 MEAN CELL HGB CONCENTRATION 31.2 RED CELL DISTRIBUTION WIDTH 14.3 PLATELET COUNT 263 MEAN PLATELET VOLUME 10.7 NEUTROPHIL % 75.7 H IMMATURE GRANULOCYTE % 0.4 LYMPHOCYTE % 13.4 L MONOCYTE % 8.5 EOSINOPHIL % 1.8 BASOPHIL % 0.2 NUCLEATED RBC % 0.0 NEUTROPHIL # 7.0 LYMPHOCYTE # 1.23 MONOCYTE # 0.8 EOSINOPHIL # 0.2 BASOPHIL # 0.0 GLU BED (08/15/22 20:59) GLUBED 131 H GLU BED (08/15/22 17:41) GLUBED 129 H GLU BED (08/15/22 15:22) GLUBED 47 *L TEST RESULTS XR ABDOMEN 1V (08/16/22 07:00) IMPRESSION: Large stool burden within the rectum , corresponding to suspectedstercoral colitis seen on the compariso n CT abdomen and pelvis on08/14/2022. -- QUALITY -- COMMENTS: Portions of this documentation were generated us [employer] voice recognitions software. As a result despite editing and correc tions, it may still contain typographical and/or contextual errors. Signed in PatientKeeper by Jane Rousseau MD on at 14:40 Electronically Signed by Jane Rousseau MD on 12/03 at 1440 ATTENTION *EDITS and/or ADDENDA must be made in Patient Ke eper for this note. * * Edits and ammendments created in [facility] are not visible * * in Patient Keeper or the legal medical record ([facility]). * [facility] #: [id number] END OF REPORT 2022-08-15 12:40:00-00:00 [facility] ([facility]) Med Order Sheet REPORT #: [id number] REPORT STATUS: Signed DATE: 08/15/22 TIME: 1240 PATIENT: MARIAH OQUENDO UNIT #: [id number] ROOM #: [facility] BED: 3 : 46 AGE: 77 SEX: F ATTEND: Jane Rousseau MD ADM AUTHOR: Jane Rousseau MD ATTENTION *EDITS and/or ADDENDA must be made in Patient Ke eper for this note. * * Edits and ammendments created in [facility] are not visible * * in Patient Keeper or the legal medical record ([facility]). * Admission Medication Reconciliation -- CONTINUED / CHANGED HOME MEDICATIONS -- Home: Atorvastatin Tab (Lipitor Tab) Oral Hosp: Atorvastatin Tab (Lipitor Tab) 10 MG Oral BEDTIME Home: busPIRone tablet 30 MG PO BID Hosp: busPIRone Tab (Buspar Tab) 30 MG PO BID Home: Furosemide Tab (Lasix Tab) 20 MG PO BID Hosp: Furosemide Tab (Lasix Tab) 20 MG PO BID Home: glipiZIDE Tab (Glucotrol Tab) 5 MG PO BID Hosp: glipiZIDE Tab (Glucotrol Tab) 5 MG PO BID Home: Lexapro tab (escitalopram oxalate) 20 MG P O DAILY Hosp: Escitalopram Tab (NF) (Lexapro Tab (NF)) 2 0 MG PO DAILY Home: Lisinopril Tab (Prinivil Tab) 10 MG PO WILLIAM LY Hosp: Lisinopril Tab (Prinivil Tab) 10 MG PO WILLIAM LY Home: Mirtazapine Tab (Remeron Tab) 15 MG PO BED TIME Hosp: Mirtazapine Tab (Remeron Tab) 15 MG PO BED TIME Home: Promethazine Tab (Phenergan Tab) 25 MG PO Q6H PRN nausea/vomiting Hosp: Promethazine Tab (Phenergan Tab) 25 MG PO Q6H PRN nausea/vomiting Home: Seroquel tab (quetiapine) 300 MG PO BEDTIM E Hosp: QUEtiapine Tab (SEROquel Tab) 300 MG PO BE DTIME Electronically Signed by Jane Rousseau MD on 11/05 at 1240 ATTENTION *EDITS and/or ADDENDA must be made in Patient Ke eper for this note. * * Edits and ammendments created in [facility] are not visible * * in Patient Keeper or the legal medical record ([facility]). * RPT #: [id number] END OF REPORT 2022-08-15 12:07:00-00:00 [facility] LANDAVERDE [facility] ([facility]) Internal Med. H P REPORT #: [id number] REPORT STATUS: Signed DATE: 08/15/22 TIME: 1207 PATIENT: MARIAH OQUENDO UNIT #: [id number] ROOM #: N.0560 BED: 1 : 46 AGE: 77 SEX: F ATTEND: Jane Rousseau MD ADM AUTHOR: Jane Rousseau MD ATTENTION *EDITS and/or ADDENDA must be made in Patient Ke eper for this note. * * Edits and ammendments created in [employer] are not visible * * in Patient Keeper or the legal medical record ([facility]). * -- HISTORY -- ADMISSION DATE: 2022-08-14 PRIMARY CARE PROVIDER: Dmitri Davidson MD HPI: 77-year-old female with history of DM, tobacco abuse presents with nausea, vomiting that began last night. Denies fever, chills, syncope, black or bloody stool, diarrhea, hematemesis, dysuria, ab dominal pain, chest pain, shortness of breath. Web Developer with patient stat es patient has been coughing and vomiting blood as well and has been increasi ngly weak ct abd showedSevere fecal burden within the rect um with associated marked distention, and mild mural thickening, raising c oncern for stroke focal colitis in the appropriate clinical settin g. Presumed simple cyst within bilateral kidneys. Small right-sided pleural effusion with associat ed compressive atelectasis. started on laxative and enema with response patient not good historian PAST MEDICAL HISTORY: DM HLD CVA depression CHF PAST SURGICAL HISTORY: not known -SOCIAL HISTORY- -TOBACCO USE- DETAILS/COMMENTS: current tobacco user -- ALLERGIES/HOME MEDS -- ALLERGIES: No Known Allergies (UNKNOWN - Allergy) [EXTERNAL] No Known Allergies (UNKNOWN - Externa l allergies are for display only, consider adding to medical record for drug interaction check) HOME MEDICATIONS: Atorvastatin Tab (Lipitor Tab) Oral busPIRone tablet 30 MG PO BID glipiZIDE Tab (Glucotrol Tab) 5 MG PO BID Lexapro tab (escitalopram oxalate) 20 MG PO LA Y Lisinopril Tab (Prinivil Tab) 10 MG PO DAILY Mirtazapine Tab (Remeron Tab) 15 MG PO BEDTIME Promethazine Tab (Phenergan Tab) 25 MG PO Q6H Seroquel tab (quetiapine) 300 MG PO BEDTIME -- SUBJECTIVE -- -REVIEW OF SYSTEMS- GENERAL: weakness fatigue EYES: Negative for blurry vision. No diplopia. RESPIRATORY: cough with expectoration of blood GASTROINTESTINAL: vomiting of blood , abd pain GENITOURINARY: Negative for dysuria, frequency, or urgency. No gross hematuria. MUSCULOSKELETAL: weakness -- OBJECTIVE -- VITALS (08/14 21:07 - 08/15 21:07): Temperature C: 36.7 Temperature source: Oral Pulse Rate 91 (67 - 91) Respiratory rate: 17 (16 - 19) BP: 120/72 (117/49 - 130/78) -EXAM- GENERAL: seen in ER EYES: pale conjunctiva LUNGS: decreassed breath sound HEART: rhythm regular ABDOMEN: soft bs positive MUSCULOSKELETAL: decreased breath sound EXTREMITIES: No clubbing, no cyanosis, no edema. NEUROLOGICAL: decreased strength more in LE sincere mbulatory -- DATA -- LABS GLU BED (08/15/22 20:59) GLUBED 131 H GLU BED (08/15/22 17:41) GLUBED 129 H GLU BED (08/15/22 15:22) GLUBED 47 *L TEST RESULTS CT ABD amp;PELVIS W/CONT (08/14/22 18:22) IMPRESSION: Severe fecal burden within the rectum with assoc iated marked distention, and mild mural thickening, raising c oncern for stroke focal colitis in the appropriate clinical settin g. Presumed simple cyst within bilateral kidneys. Small right-sided pleural effusion with associat ed compressive atelectasis. Additional findings as above. CT CHEST W/CONTRAST (08/14/22 18:22) FINDINGS: CHEST: Lines/Tubes/Devices: None Lungs and large airways: Central airways are pat ent. Minimal upper lobe predominant upper lobe emphysematous change s within bilateral lungs. Pleura: Small right-sided pleural effusion with associated compressive atelectasis. No left pleural effusion. No pneumo thorax. Mediastinum and christie: No mediastinal or hilar ad enopathy. Heart and great vessels: The heart is normal in size. The great vessels are normal size. No pericardial effusion . Calcified atherosclerotic plaque within the thoracic aorta . Trace pericardial effusion. Chest wall, lower neck, axillae: No axillary lym phadenopathy ABDOMEN AND PELVIS: Liver and biliary system: The liver is normal in size measuring approximately 11.4 cm in dimension. No contour d eforming lesions are identified. No intrahepatic or extra hepatic ilene iary ductal dilation. The gallbladder is unremarkable. Spleen: Unremarkable Pancreas: No main pancreatic ductal dilation. Adrenal glands: Unremarkable Kidneys: The knees are normal in size and config uration. No hydronephrosis or nephrolithiasis. Scattered sub centimeter hypodense lesions within bilateral kidneys, too small to a dequately characterize, likely representing small cysts. Lymph nodes/retroperitoneum: No lymphadenopathy. Vessels: Patent Bowel/Peritoneal cavity: Lack of oral contrast l imits evaluation of bowel. There is severe fecal burden within the r ectum with associated mild mural thickening of the rectal, raising con cern for a stercoral colitis. Bladder: No focal bladder wall thickening Pelvic organs: Unremarkable Abdominal/Pelvic wall: Unremarkable Bones: Postsurgical changes of a L2-L5 spinal fu cesar posterior laminectomy. Age-indeterminate compression L1 ve rtebral. No aggressive osseous lesions. No acute fracture -- ASSESSMENT AND PLAN -- PROBLEMS: 1: Hematemesis A/P: monitor f/u on cbc cont PPI GI consult 2: Constipation A/P: laxative enema GI consult 3: Diabetes A/P: SSI 4: Hyponatremia A/P: monitor 5: Depression A/P: resume home meds 6: Physical debility A/P: pt/ot 7: Polypharmacy A/P: multiple psych meds 8: Tobacco dependence A/P: counselling given 9: COPD (chronic obstructive pulmonary disease) A/P: bronchodilator -- QUALITY -- COMMENTS: Portions of this documentation were generated us ing voice recognitions software. As a result despite editing and correc tions, it may still contain typographical and/or contextual errors. Signed in PatientKeeper by Jane Rousseau on 08/15 at 21:23 Electronically Signed by Jane Rousseau MD on 11/05 at 2123 ATTENTION *EDITS and/or ADDENDA must be made in Patient Ke eper for this note. * * Edits and ammendments created in [employer] are not visible * * in Patient Keeper or the legal medical record (HPF). * RPT #: [id number] END OF REPORT 2022-08-14 14:31:00-00:00 [facility] ([facility]) EMERGENCY PROVIDER REPORT REPORT#:[id number] REPORT STATUS: Signed DATE:08/14/22 TIME: 1431 PATIENT: MARIAH OQUENDO UNIT #: [id number] ROOM: [facility] BED: 1 AGE: 77 SEX: F PCP PHYS: Dmitri Davidson MD SERVICE AUTHOR: Barbara Otero MD * ALL edits or amendments must be made on the el ectronic/computer document * HPI-General Illness Free Text HPI Notes Free Text HPI Notes 77-year-old female with history of DM, tobacco abuse presents with nausea, vomiting that began last night. Denies fever, chills, syncope, black or bloody stool, diarrhea, hematemesis, dysuria, ab dominal pain, chest pain, shortness of breath. Web Developer with patient stat es patient has been coughing and vomiting blood as well and has been increasi ngly weak. General Initial Greet Date/Time 08/14/22 1406 Presentation Chief Complaint Vomiting Review of Systems ROS Statements All systems rev neg except as marked. Review of Systems Constitutional Denies: Chills, Fever, Weakness - generalized. Respiratory Reports: Cough, non-producti ve. Denies: Cough, productive, Dyspnea on exertion, Hemoptysis, Parox nocturnal dyspnea, Pleuritic p ain, Shortness of breath, Wheezing. Cardiovascular Denies: Chest pain, Dyspnea on exertion, Edema, Orthopnea, Palpitations, Parox nocturnal dyspnea, Syncope. GI Reports: Hematemesis, Nausea, Vomiting. Denies: Abdominal pain, Bloody/tarry stool, Constipation, Diarrhea. Past Medical History - Adult Stated Complaint N/V Allergies Coded Allergies: Penicillins (Mild, HIVES 03/25/22) Calculated Suicide Risk (nurs) No risk Past Medical History: Reports: Diabetes mellitus. Drug Use Denies recreational drugs Smoking status for patients 13 years old or olde r: Current every day smoker Physical Exam Vital Signs Vital Signs First Documented: Result Date Time Pulse Ox 95 08/14 1344 B/P 128/70 08/14 1344 B/P Mean 89 08/14 1344 O2 Delivery Room air 08/14 134 Temp 98.1 08/14 134 Pulse 94 08/14 1344 Resp 20 08/14 1344 Last Documented: Result Date Time Pulse Ox 98 08/14 193 B/P 121/74 08/14 193 B/P Mean 89 08/14 1930 O2 Delivery Room air 08/14 193 Pulse 89 08/14 193 Resp 18 08/14 193 Temp 98.1 08/14 1344 Review of Vital Signs Reviewed Free Text PE Notes Free Text PE Notes Gen: awake, alert in nad, WDWN, appears stated a ge, elderly, frail Skin: warm, dry, no rash, no cyanosis Head: NCAT Eyes: PERRLA, nonicteric, eyelids without edema/ lesions, EOM intact, no conjunctival injection Ears: hearing intact Nose: mucosa pink and moist, midline septum, bronson es patent Throat: oral mucosa pink and moist Neck: supple, trachea midline CVS: RRR, no M/G/R, peripheral pulses 2+ Resp: unlabored, no distress, BS clear b ilaterally, no rales, rhonchi, wheezes Abd: soft, nontender, nondistended, no m asses, no rebound, no gaurding, normal bowel sounds : soft brown stool noted on rectal exam, able to remove small amount Ext: no deformity, no ttp, no clubbing, no edema , no erythema Neuro: CN II-XII intact, A O x 4, moves all 4 ex tremites Psych: appropriate mood and affect Interpretation Diagnostics Lab Results Interpretation Results Laboratory Tests 08/14/22 1431: [Embedded Image Not Available] Laboratory Tests: 08/14 08/14 08/14 1431 1431 1432 Chemistry Sodium (135 - 145 mmol/L) 131 L Potassium (3.6 - 5.0 mmol/L) 4.5 Chloride (101 - 111 mmol/L) 105 Carbon Dioxide (21 - 31 mmol/L) 18 L BUN (6 - 20 mg/dl) 36 H Creatinine (0.44 - 1.03 mg/dL) 1.02 Glomerular Filtr Rate (>60) 57 L Glucose (70 - 100 mg/dl) 110 H Calcium (8.5 - 10.5 mg/dL) 9.2 Magnesium (1.8 - 2.5 mg/dl) 1.8 Total Bilirubin (0.2 - 1.3 mg/dL) 0.50 Direct Bilirubin (0.00 - 0.20 mg/dL) 0.1 AST (10 - 42 U/L) 19 ALT (10 - 60 U/L) 19 Total Alk Phosphatase (42 - 121 U/L) 57 Troponin I (0.000 - 0.034 ng/mL) <0.020 Total Protein (6.7 - 8.2 g/dL) 6.1 L Albumin (3.2 - 5.5 g/dL) 3.3 Lipase (22 - 51 IU/L) 30 Serum HCG, Qual (NEGATIVE) NEGATIVE Hematology WBC (3.2 - 11.5 x10 3/uL) 16.0 H RBC (3.70 - 5.10 x10(6)/m) 3.96 Hgb (12.0 - 15.0 g/dL) 10.6 L Hct (35.7 - 44.8 %) 34.1 L MCV (80 - 100 fL) 86 MCH (26.2 - 33.8 pg) 26.8 MCHC (30.0 - 34.0 g/dL) 31.1 RDW (11.3 - 14.5 %) 14.0 Plt Count (130 - 408 x10 3/uL) 270 MPV (8.6 - 12.6 fL) 11.0 Neut % (Auto) (40.0 - 70.0 %) 86.3 H Lymph % (Auto) (20 - 40 %) 6.6 L Stanley % (Auto) (1 - 10 %) 6.3 Eos % (Auto) (0.0 - 5.0 %) 0.1 Baso % (Auto) (0.0 - 1.0 %) 0.2 Neut # (Auto) (1.6 - 7.2 x10 3/uL) 13.8 H Lymph # (Auto) (1.1 - 2.7 x10 3/uL) 1.06 L Stanley # (Auto) (0.3 - 0.8 x10 3/uL) 1.0 H Eos # (Auto) (0.0 - 0.5 x10 3/uL) 0.0 Baso # (Auto) (0.0 - 0.1 x10 3/uL) 0.0 Immature Gran % (0.0 - 2.0 %) 0.5 Nucleated RBC % (0.0 - 0.9 %) 0.0 Recent Impressions: RADIOLOGY - XR CHEST 1 V 08/14 1435 Report Impression - Status: SIGNED Entered: 08/14/2022 1447 IMPRESSION: Stable exam. No acute cardiopulmonary findings. Impression By: [email or web address] - JOSEPHINE VALLES MD CAT SCAN - CT ABD PELVIS W/CONT 08/14 1822 Report Impression - Status: SIGNED Entered: 08/14/20221900 IMPRESSION: Severe fecal burden within the rectum with assoc iated marked distention, and mild mural thickening, raising c oncern for stroke focal colitis in the appropriate clinical settin g. Presumed simple cyst within bilateral kidneys. Small right-sided pleural effusion with associat ed compressive atelectasis. Additional findings as above. Impression By: [email or web address] - Sarah Davis MD CAT SCAN - CT CHEST W/CONTRAST 08/14 1822 Report Impression - Status: SIGNED Entered: 08/14/20221900 IMPRESSION: Severe fecal burden within the rectum with assoc iated marked distention, and mild mural thickening, raising c oncern for stroke focal colitis in the appropriate clinical settin g. Presumed simple cyst within bilateral kidneys. Small right-sided pleural effusion with associat ed compressive atelectasis. Additional findings as above. Impression By: [email or web address] - Sarah Davis MD ECG #1 Interpretation Text/Dict Note NSR, rate 85, no ST elevation, Q-wave noted V2 V 3 V4, no ectopy Date 08/14/22 Re-Evaluation MDM Re-Evaluation/Progress #1 Text/Dict Note Patient resting comfortably, no vomiting while i n department. Discussed findings with patient and caregiver as well as n eed for admission. Caregiver states patient has had issues with constipation over the past year, takes organic laxatives. Time of Re-Eval 1943 ED Course Medication(s) Ordered Medication(s) Ordered: Anti-Infective Agents Sig/Pernell Start time Last Medication Dose Route Stop Time Status Admin Ciprofloxacin/ 200 ML X1ED STA 08/14 1946 DC Dextrose IV 08/14 Diagnostic Agents Sig/Pernell Start time Last Medication Dose Route Stop Time Status Admin Iopamidol 0 .STK-MED ONE 08/14 180 DC 08/14 IV 1821 Electrolytic, Caloric, And Vishnu Sig/Pernell Start time Last Medication Dose Route Stop Time Status Admin Sodium Chloride 1,000 ML X1ED STA 08/14 194 AC 08/14 IV 08/15 0547 205 Sodium Chloride 1,000 ML X1ED STA 08/14 1605 DC 08/14 IV 08/14 1704 1654 Patient Discharge Departure Vital Signs/Condition Vital Signs First Documented: Result Date Time Pulse Ox 95 08/14 1344 B/P 128/70 08/14 1344 B/P Mean 89 08/14 1344 O2 Delivery Room air 08/14 1344 Temp 98.1 08/14 1344 Pulse 94 08/14 1344 Resp 20 08/14 1344 Last Documented: Result Date Time Pulse Ox 98 08/14 193 B/P 121/74 08/14 193 B/P Mean 89 08/14 1930 O2 Delivery Room air 08/14 193 Pulse 89 08/14 1930 Resp 18 08/14 193 Temp 98.1 08/14 1344 All vital signs available at the time of this en try have been reviewed. Condition Stable Clinical Impression Clinical Impression Primary Impression: Colitis Secondary Impressions: Constipation, Nausea vomi ting Time of Impression 1943 Disposition Decision Admit Admit Physician Name Jane Rousseau MD )( Admission Accepts Yes )( Accepted Time 1943 )( Accepted Date 08/14/22 Discharge/Care Plan Counseled Regarding Diagnosi s, Lab results, Imaging studies, Need for admission Admit Note I have spoken with the patie nt and/or caregivers. I have explained the patient's condition, diagnoses and dio atment plan based on the information available to me at this time. I have answered the patient's and/ or caregiver's questions and addressed any concerns. The patient and/or careg gely have as good an understanding of the patient 's diagnosis, condition and treatment plan as can be expected at this point. The patient has been stabilized within the capability of the emergency department. The patient wi ll be transported for further care and management or will be moved to an observation or inpatient service. I have communicated with the staff or medical p ractitioner taking over this patient's care. Quality Measures Smoking Cessation Screened, tobacco user Tobacco Screening/Cessation 18 years or older, T obacco user Smoking Cessation Counseling The patient was questioned r egarding their smoking habits, and I have determined , as the patient's treating physician, that ther e is a medical necessity in regards to the patient's med ical condition to provide smoking cessation program education. The patient was a dvised to stop smoking and counseled for a period of greater than 3 minutes. The patient was instructed to follow up with a primary care physician for smoking cessation and given i nformation regarding local smoking cessation programs i n the area. The patient received detailed discharge instructions as to how to stop smoking. The patient expressed an understanding of the need to follow up and the plan for smokin g cessation. Electronically Signed by Barbara Otero MD on 12/03 at 0032 RPT #:[id number] END OF REPORT 2022-08-14 14:27:00-00:00 [id number] [address] PATIENT NAME: MARIAH OQUENDO ADMIT DATE: 08/14 ACCOUNT NO: [id number] ROOM NO: [id number] AGE: 77 REPORT TYPE: ELECTROCARDIOGRAM SEX: F ADMITTING PHYSICIAN:Jane Rousseau MD ATTENDING PHYSICIAN:Jane Rousseau MD Order: [id number] Test Reason : Resting 12-lead ECG Test Date/Time Stamp: ThuAug 14 2022 14:27:57 Blood Pressure : / mmHG Vent. 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 ABNORMAL ECG Reviewed by Confirmed by VILMA ALLISON ([id number]) on 022 8:33:10 PM Referred By: Barbara Otero Confirmed by:VILMA ALLISON at 2032 PATIENT NAME MARIAH OQUENDO [id number] 2022-03-25 20:13:00-00:[address] [facility] REPORT REPORT#:[id number] REPORT STATUS: Signed DATE:03/25/22 TIME: 2012 PATIENT: MARIAH OQUENDO UNIT #: [id number] ROOM: BED: AGE: 76 SEX: F PCP PHYS: Dmitri Davidson MD SERVICE AUTHOR: Bandar Banuelos DIRECTOR OF ACCREDITATION * ALL edits or amendments must be made on the PPDai/computer document * Bandar Banuelos 03/25/22 2013: HPI-General Illness Free Text HPI Notes Free Text HPI Notes Patient 76-year-old female w ith history of diabetes and hyperlipidemia presents with right arm pain. Patient reports she was at the doctor's office yesterday when they lifted her to transfer from wheelchair to the bed. Patient states they hurt her right upper arm. Pain is located i n her right upper arm and shoulder, pain does not radiate pain is describe d as aching 7 out of 10 pain. Patient has not taken any medication for this. P atient states movement makes the pain worse rest makes the pain jim r. Patient denies headache fever chest pain shortness of breath abdominal pain nausea v omiting diarrhea. General Confirmed Patient Yes Initial Greet Date/Time 03/25/22 1710 Presentation Chief Complaint RIGHT UPPER ARM PAIN Review of Systems ROS Statements All systems rev neg except as marked. Complete sys rev neg except as marked. Review of Systems Musculoskeletal Reports: Extremity pain, Ext remity swelling, Joint pain, Joint swelling. Denies : Back pain, Lumbar pain, Myalgia, Neck pain, Th oracic pain. Past Medical History - Adult Stated Complaint RIGHT SHOULDER PAIN Allergies Coded Allergies: Penicillins (Mild, HIVES 03/25/22) Smoking status for patients 13 years old or olde r: Never Smoker Physical Exam Vital Signs Vital Signs First Documented: Result Date Time Pulse Ox 98 03/25 165 B/P 122/67 03/25 165 B/P Mean 85 03/25 1658 O2 Delivery Room air 03/25 1658 Temp 36.5 03/25 1658 Pulse 92 03/25 1658 Resp 16 03/25 1658 Last Documented: Result Date Time Pulse Ox 93 03/25 184 B/P 104/63 03/25 184 B/P Mean 76.5 03/25 1847 Temp 36.9 03/25 184 Pulse 88 03/25 184 Resp 16 03/25 184 O2 Delivery Room air 03/25 1658 Review of Vital Signs Reviewed Basic Physical Exam Basic PE GEN: Well appearing /NAD, HEAD: Atraumatic/NC, EYES: PERRL, conj clear, ENT: Membranes moist, NECK: Supple, RESP: No res p distress, CV: Reg rate rhythm, ABD: Soft/non-tender , EXT: No gross abnormality, SKIN: No rashes, warm/ dry, NEURO: alert oriented, NEURO: gross movemen t NL, PSYCH: NL thought content Physical Exam Resp/Chest Respiratory/Chest Atraumatic, Breath sounds NL, Breath sounds = bilat, No respiratory distress, No rales, No rhonchi, No w heezing, No retractions, No stridor, No chest tenderness, No chest wall defo rmity, No crepitus Cardiovascular Cardiovascular Heart rate NL, Regular rhythm, H eart sounds NL, No gallop, No murmurs, No rubs, Cap refill not delayed, Periph eral circulation NL, Pulses = bilaterally, No gross BP differential MS Upper Extrem Upper Extremity/MS Inspection NL, Full range of motion, No swelling, No snuffbox tenderness, No erythema, No deformity, Neurologic intact, Vascular intact, No ligamentous injury, Tendon fu nction NL, No compartment syndrome, No circumferential injury, No clubbing/cyanosis, No edema Clavicle/Shoulder Girdle Negative: Clavicle swelling R, Clavicle swellin g L, Clavicle tender R, Clavicle tender L, Clavicle deformity R, Clavicle deformity L, AC joint swollen R, AC joint swollen L, AC lig tender R, AC lig t pardeep L. Right Shoulder Tenderness present. Negative: Swelling present, Ecchymosis present, Erythema present, Warmth present, ROM reduced, Joint effusion present, Deformity present, Deformity c/w ant disloc, Abduction redu troy, Can't hold at 90 deg abd, Deltoid sensory deficit, Open fracture present, Pulses d istal absent, Pulses distal decreased, Neuro deficit present. Right Upper Arm Tenderness present. Negative: Swelling present, Ecchymosis present, Erythema present, Warmth present, Deformity humerus prox, Deformity humerus mid, Deformity humerus distal, Open fracture present, Pulse brachial absent, Pulse brachial decreased, Pulses d istal absent, Pulses distal decreased, Neuro deficit present. Interpretation Diagnostics Lab Results Interpretation Results Recent Impressions: RADIOLOGY - XR CHEST 1 V 03/25 1735 Report Impression - Status: SIGNED Entered: 03/25/2022 1802 IMPRESSION: No acute cardiopulmonary findings. Impression By: [email or web address] - Josias Cantu MD RADIOLOGY - XR HUMERUS 2 + V RT 03/25 1735 Report Impression - Status: SIGNED Entered: 03/25/2022 1756 IMPRESSION: No acute abnormality of the right humerus or damion ulder. Impression By: [email or web address] - Emiliano Parker MD RADIOLOGY - XR SHOULDER 2 + V RT 03/25 1735 Report Impression - Status: SIGNED Entered: 03/25/2022 1756 IMPRESSION: No acute abnormality of the right humerus or damion ulder. Impression By: Margaret Cummings Mai, MD Imaging Statement Radiographic studies reviewed and considered in the medical decision-making. Re-Evaluation MDM Free Text MDM Notes Free Text MDM Notes Patient well-appearing and stable. Patient repor ts right upper arm pain. Patient states while she was being transferred a t the doctor's office she was injured by staff there. Patient states she has p ain in her right upper arm. There is no erythema no swelling no deformities noted. Mild tenderness to palpation on right deltoid. X-ray of rig ht shoulder no acute findings x-ray of right humerus no acute findings chest x-ray no a cute findings. Plan for discharge home with supportive measures. Patient verbalized understanding agrees with plan. Patient Discharge Departure Vital Signs/Condition Vital Signs First Documented: Result Date Time Pulse Ox 98 03/25 1658 B/P 122/67 03/25 165 B/P Mean 85 03/25 1658 O2 Delivery Room air 03/25 1658 Temp 36.5 03/25 1658 Pulse 92 03/25 1658 Resp 16 03/25 1658 Last Documented: Result Date Time Pulse Ox 93 03/25 184 B/P 104/63 03/25 184 B/P Mean 76.5 03/25 1847 Temp 36.9 03/25 1847 Pulse 88 03/25 1847 Resp 16 03/25 184 O2 Delivery Room air 03/25 1658 All vital signs available at the time of this en try have been reviewed. Condition Stable Clinical Impression Clinical Impression Primary Impression: Sprain of upper arm, right Secondary Impressions: Contusion of upper arm, r ight Disposition Decision Discharge )( Discharged to Home Yes )( Time 2016 )( Date 03/25/22 Discharge/Care Plan Patient Instructions ED Shoulder Sprain, ED Soft Tissue Contusion Additional Instructions As discussed today, please make a follow-up appo intment with your PCP and/or referral doctor given here, within 24 to 48 hour s for evaluation and further outpatient work-up and treat ment that may be needed, depending on progression of your symptoms. Return the emergency depa rtment right away for new or worsening symptoms. Take 400 mg ibuprofen with 500 mg Tylenol 3 time s a day for 2 days. Apply ice or heat therapy to affected areas. Departure Forms [facility] P[facility] L[facility] Discharge Note I have spoken with the patie nt and/or caregivers. I have explained the patient's condition, diagnoses and dio atment plan based on the information available to me at this time. I have answered the patient's and/ or caregiver's questions and addressed any concerns. The patient and/or careg gely have as good an understanding of the patient 's diagnosis, condition and treatment plan as can be expected at this point. The vital signs have bee n stable. The patient's condition is stable and appr opriate for discharge from the emergency department. The patient will pursue further outpatient evalu ation with the primary care physician or other designated or consulting phys ician as outlined in the discharge instructions. The patient and/or caregivers are agreeable to this plan of care and follow-up instructions have been exp lained in detail. The patient and/or caregivers have received these instructio ns in written format and have expressed an understanding of the discharge inst ructions. The patient and/or caregivers are aware that any significant change in condition or worsening of symptoms should prompt an immediate return to [facility] or the closest emergency department or a call to 911. Quality Measures Current Medications Attest: Medication review Smoking Cessation Screened, non user Tobacco Screening/Cessation 18 years or older, D enies tobacco use Román Cm 03/25/222212: Patient Discharge Departure Supervising Physician Note MidLv Saw Pt Alone I have reviewed the PA/DIRECTOR OF ACCREDITATION's note and plan of car e. I was available for consultation as needed at al l times during the patient's visit in the emergency department. I agree with the clinical impression , plan and disposition. Electronically Signed by Bandar Banuelos DIRECTOR OF ACCREDITATION on 09/04 at 2148 Electronically Signed by Román Cm MD n 03/25/22 at 2214 RPT #:[id number] END OF REPORT 2022-03-25 17:10:00-00:00 HCANW [facility] ([facility]) EMERGENCY PROVIDER REPORT REPORT#:[id number] REPORT STATUS: Signed DATE:03/25/22 TIME: 1709 PATIENT: MARIAH OQUENDO UNIT #: [id number] ROOM: BED: AGE: 77 SEX: F PCP PHYS: Dmitri Davidson MD SERVICE AUTHOR: Ramu Almazan * ALL edits or amendments must be made on the [employer]/computer document * Provider in Triage - Adult Provider in Triage Initial Greet Date/Time 03/25/22 171 Greet Note I have greeted and performed a focused rapid initial assessment of this patient. A comprehensive ED assessment and evaluation of the patient, analysis of all test results, and completion of the medical deci cesar-making process will be conducted by additional ED providers. Free Text PIT Notes Free Text PIT Notes RIGHT SHOULDER PAIN S/P BEING LIFTED IN BED FROM EMS further workup is required, care transferred to emergency department PMH-Provider in Triage Stated Complaint RIGHT SHOULDER PAIN Allergies Coded Allergies: Penicillins (Mild, HIVES 03/25/22) at 1711 Electronically Signed by Daniela Grover MD 04/18/22 at 8884 RPT #:[id number] END OF REPORT
[2023-02-12 14:42] LABS: Absolute Lymphocytes (CBC) 1.4 K/uL (0.7-4.9); Hematocrit 28.4 % (36.0-45.0); Lymphocytes % 9.8 % (15.3-44.8); MCV 84.6 fL (80-100); MPV 8.1 fL (7.6-11.3); RBC Red Blood Cell Count 3.36 M/uL (3.86-4.86)
[2023-02-12 14:53] LABS: Protime INR 1.12
[2023-02-12 14:54] LABS: Albumin 2.5 g/dL (3.4-5.0); Bilirubin Total 0.2 mg/dL (0.2-1.0); Potassium 3.5 mEq/L (3.5-5.1); Protein, Total 6.6 g/dL (6.4-8.2)
[2023-02-12] MEDS ORDERED: NA CHLORIDE 0.9% 1,000 ML ONE (15:09)
[2023-02-12] MEDS ORDERED: ONDANSETRON 4 MG/2 ML VIAL ONE (15:13)
--- NOTE | 2023-02-12 15:45 | RAD REPORT ---
EXAM DESCRIPTION: Jenit Single View02/12/2023 3:22 pm CLINICAL HISTORY: COUGH COMPARISON: Chest Single View dated 01/13/2023; Chest Single View dated 03/18/2021; Abdomen Pelvis W C ontrast dated 12/16/2022 TECHNIQUE: Portable AP view of the chest. FINDINGS: New airspace opacity at the right lung apex. Innumerable punctate nodules throughout the l ungs bilaterally, may relate to prior granulomatous infection or miliary tuberculosis or nontuberculo us mycobacterial infection. No pneumothorax or effusion. Likely scarring along the right minor fissur e is stable. The cardiomediastinal contours are unremarkable. IMPRESSION: New airspace opacity at the right lung apex, raises concern for atelectasis or pneumonia .
--- NOTE | 2023-02-12 16:44 | ER ---
Nurse's Notes [facility] Name: Mariah Canales Age: 77 yrs Sex: Female : 1945 Arrival Date: 02/12/2023 Time: 13:55 Bed 6 Private MD: Diagnosis: COPD/ Chronic obstructive pulmonary disease with acute lower respiratory infection Presentation: 02/12 13:55 Chief complaint: EMS states: longterm called saying patient had low O2 readings and ko1 "lower than normal" blood pressures. She was recently diagnosed with pneumonia, has a productive cough. Sats for EMS were mid 90's and sbp remained greater than 100. Coronavirus screen: At this time, the client does not indicate any symptoms associated with coronavirus-19. Ebola Screen: No symptoms or risks identified at this time. Initial Sepsis Screen: Does the patient meet any 2 criteria? No. Patient's initial sepsis screen is negative. Does the patient have a suspected source of infection? No. Patient's initial sepsis screen is negative. Risk Assessment: Do you want to hurt yourself or someone else? Patient reports no desire to harm self or others. Onset of symptoms was February 12, 2023. 13:55 Method Of Arrival: EMS: [facility] ko1 13:55 Acuity: AASHISH 3 ko1 Historical: - Allergies: 14:06 No Known Allergies; ko1 - Immunization history:: Adult Immunizations up to date. - Social history:: Smoking status: Patient denies any tobacco usage or history of. Screenin:15 [facility] ED Fall Risk Assessment (Adult) History of falling in the last 3 months, ko1 including since admission No falls in past 3 months (0 pts) Confusion or Disorientation No (0 pts) Intoxicated or Sedated No (0 pts) Impaired Gait Yes (1 pt) Mobility Assist Device Used Yes (1 pt) Altered Elimination No (0 pt) Score/Fall Risk Level 0 - 2 = Low Risk Oriented to surroundings, Maintained a safe environment, Educated pt \\T\\ family on fall prevention, incl call for assistance when getting out of bed, Assessed \\T\\ reinforced patient's understanding of fall precautions, Provided non-skid footwear, Hourly rounding (assess needs \\T\\ fall precautionary measures) done, Used ambulatory aids as needed (educated on \\T\\ assisted with), Used gait belt as appropriate. Abuse screen: Denies threats or abuse. Denies injuries from another. Nutritional screening: No deficits noted. Tuberculosis screening: No symptoms or risk factors identified. Assessment: 14:15 General: Appears in no apparent distress. comfortable, Behavior is calm, cooperative, ko1 appropriate for age. Pain: Denies pain. Neuro: No deficits noted. Cardiovascular: No deficits noted. Respiratory: No deficits noted. Respiratory: Sputum is thick, yellow. GI: No deficits noted. : No deficits noted. EENT: No deficits noted. Derm: No deficits noted. Musculoskeletal: No deficits noted. 17:59 Reassessment: Attempted to call report, spoke with Gracy, she states the nurse is in ko1 with a patient and she will have him call me back. Vital Signs: 13:55 BP 134 / 48; Pulse 78; Resp 20; Temp 98.9; Pulse Ox 96% on R/A; ko1 14:15 BP 138 / 68; Pulse 72; Resp 18; Pulse Ox 98% ; ko1 15:00 BP 129 / 57; Pulse 88; Resp 18; Pulse Ox 96% ; ko1 16:00 BP 141 / 65; Pulse 83; Resp 19; Pulse Ox 94% ; ko1 17:00 BP 167 / 75; Pulse 96; Resp 16; Pulse Ox 95% ; ko1 ED Course: 13:58 Patient arrived in ED. ko1 13:59 Sarah Chew [facility]-C [facility] snw 13:59 Jem Santos MD is Attending Physician. snw 14:02 Mary Guerrero, LAKESHA is Primary Nurse. ko1 14:06 Triage completed. ko1 14:15 Patient has correct armband on for positive identification. Placed in gown. Bed in low ko1 position. Call light in reach. Side rails up X2. Client placed on continuous cardiac and pulse oximetry monitoring. NIBP monitoring applied. clinical research monitor on. Door closed. Noise minimized. Lights dimmed. Warm blanket given. 14:15 Arm band placed on right wrist. Patient placed in an exam room, on a stretcher, on ko1 personnel monitor, on pulse oximetry. 14:29 Inserted saline lock: 20 gauge in left wrist, using aseptic technique. Blood collected. bp 15:24 Chest Single View XRAY In Process Unspecified. EDMS 16:43 Bart Robles MD is Hospitalizing Provider. snw 17:35 CT Chest For PE Angio In Process Unspecified. EDMS 18:00 No provider procedures requiring assistance completed. Patient admitted, IV remains in ko1 place. Administered Medications: 15:04 Drug: NS 0.9% IV 1000 ml Route: IV; Rate: 75 ml/hr; Site: left wrist; ko1 15:14 Drug: Ondansetron IVP 4 mg Route: IVP; Site: left wrist; ko1 Medication: 14:15 VIS not applicable for this client. ko1 Outcome: 16:43 Decision to Hospitalize by Provider. snw 19:17 Admitted to Tele accompanied by alfred, room 406, with chart, Report called to MICHAELLE CROWDER rv 19:17 Condition: good 19:17 Instructed on the need for admit. 19:18 Patient left the ED. rv Signatures: Dispatcher [employer] EDMS Sarah Chew, COMMERCIAL DOOR INSTALLER-C COMMERCIAL DOOR INSTALLER-CsnJordan Oreilly RN RN bp Brayan Kelley RN RN rv Mary Guerrero RN RN ko1 Corrections: (The following items were deleted from the chart) 14:10 14:06 PMHx: kidney failure; ko1 ko1 14:10 14:06 PMHx: diabetes mellitus; ko1 ko1 14:10 14:06 PMHx: Hypertensive disorder; ko1 ko1 14:10 14:06 PMHx: stroke in 2015; ko1 ko1 14:10 14:06 PMHx: Chronic obstructive lung disease; ko1 ko1 14:10 14:06 PMHx: Parkinson's disease; ko1 ko1 14:10 14:06 PSHx: caroditectomy x 2 left; ko1 ko1
--- NOTE | 2023-02-12 16:44 | EDPHYS ---
Physician Documentation [facility] Name: Mariah Canales Age: 77 yrs Sex: Female : 1945 Arrival Date: 02/12/2023 Time: 13:55 Bed 6 Private MD: ED Physician Jem Santos HPI: 02/12 15:51 This 77 yrs old Female presents to ER via EMS with complaints of cough, shortness of snw breath. 15:51 The patient or guardian reports cough, described as moderate, with productive sputum, snw that is green. Onset: The symptoms/episode began/occurred suddenly, 3 day(s) ago, and became worse this morning, and became persistent. Associated signs and symptoms: Pertinent positives: nausea. Severity of symptoms: At their worst the symptoms were moderate in the emergency department the symptoms are unchanged. It is unknown whether or not the patient has had similar symptoms in the past. pt is a resident of [place], being treated for COPD exacerbation. Chest Xray was performed and pt started on Zithromax. Today pt had an episode of desaturation to 88%. EMS was called and pt arrives with improved O2 sats, but with nausea and soft blood pressure. Sepsis workup started even though one dose of antibiotics has been given. Historical: - Allergies: 14:06 No Known Allergies; ko1 - Immunization history:: Adult Immunizations up to date. - Social history:: Smoking status: Patient denies any tobacco usage or history of. ROS: 15:51 Eyes: Negative for injury, pain, redness, and discharge, ENT: Negative for injury, snw pain, and discharge, Neck: Negative for injury, pain, and swelling, Cardiovascular: Negative for chest pain, palpitations, and edema. 15:51 Back: Negative for injury and pain, : Negative for injury, bleeding, discharge, and swelling, MS/Extremity: Negative for injury and deformity, Skin: Negative for injury, rash, and discoloration, Neuro: Negative for headache, weakness, numbness, tingling, and seizure, Psych: Negative for depression, anxiety, suicide ideation, homicidal ideation, and hallucinations. 15:51 Constitutional: Positive for malaise, poor PO intake. 15:51 Respiratory: Positive for cough, shortness of breath. 15:51 Abdomen/GI: Positive for nausea. Exam: 16:00 Head/Face: Normocephalic, atraumatic. Eyes: Pupils equal round and reactive to light, snw extra-ocular motions intact. Lids and lashes normal. Conjunctiva and sclera are non-icteric and not injected. Cornea within normal limits. Periorbital areas with no swelling, redness, or edema. ENT: Nares patent. No nasal discharge, no septal abnormalities noted. Tympanic membranes are normal and external auditory canals are clear. Oropharynx with no redness, swelling, or masses, exudates, or evidence of obstruction, uvula midline. Mucous membranes moist. Neck: Trachea midline, no thyromegaly or masses palpated, and no cervical lymphadenopathy. Supple, full range of motion without nuchal rigidity, or vertebral point tenderness. No Meningismus. Chest/axilla: Normal chest wall appearance and motion. Nontender with no deformity. No lesions are appreciated. Cardiovascular: Regular rate and rhythm with a normal S1 and S2. No gallops, murmurs, or rubs. Normal PMI, no JVD. No pulse deficits. 16:00 Abdomen/GI: Soft, non-tender, with normal bowel sounds. No distension or tympany. No guarding or rebound. No evidence of tenderness throughout. Back: No spinal tenderness. No costovertebral tenderness. Full range of motion. Skin: Warm, dry with normal turgor. Normal color with no rashes, no lesions, and no evidence of cellulitis. MS/ Extremity: Pulses equal, no cyanosis. Neurovascular intact. Full, normal range of motion. Neuro: Awake and alert, GCS 15, oriented to person, place, time, and situation. Cranial nerves II-XII grossly intact. Motor strength 5/5 in all extremities. Sensory grossly intact. Cerebellar exam normal. Normal gait. Psych: Awake, alert, with orientation to person, place and time. Behavior, mood, and affect are within normal limits. 16:00 Constitutional: The patient appears alert, awake, frail, uncomfortable. 16:00 Respiratory: the patient does not display signs of respiratory distress, Respirations: shallow respirations, that is mild, Breath sounds: bronchial sounds, that are moderate, are heard diffusely, + upper airway congestion. Vital Signs: 13:55 BP 134 / 48; Pulse 78; Resp 20; Temp 98.9; Pulse Ox 96% on R/A; ko1 14:15 BP 138 / 68; Pulse 72; Resp 18; Pulse Ox 98% ; ko1 15:00 BP 129 / 57; Pulse 88; Resp 18; Pulse Ox 96% ; ko1 16:00 BP 141 / 65; Pulse 83; Resp 19; Pulse Ox 94% ; ko1 17:00 BP 167 / 75; Pulse 96; Resp 16; Pulse Ox 95% ; ko1 MDM: 14:00 Patient medically screened. snw 16:01 Differential diagnosis: obstructed airway, bronchitis, flu, URI, pneumonia. Antibiotic snw administration: pt rec'd zithromax 500mg po today at [facility]. Data reviewed: vital signs, nurses notes, lab test result(s), radiologic studies. Consideration of Admission/Observation Escalation of care including admission/observation considered. Historians other than the Patient: EMS: [facility]. External Records Reviewed: [place] records. Counseling: I had a detailed discussion with the patient and/or guardian regarding: the historical points, exam findings, and any diagnostic results supporting the discharge/admit diagnosis, lab results, radiology results, the need for further work-up and treatment in the hospital. Awaiting: CT scan results. 02/12 14:08 Order name: Blood Culture Adult (2) snw 02/12 14:08 Order name: CBC with Diff; Complete Time: 14:46 snw 02/12 14:08 Order name: CMP; Complete Time: 14:55 snw 02/12 14:08 Order name: Lactate w/ 2H reflex if indic.; Complete Time: 14:55 snw 02/12 14:08 Order name: Protime (+inr); Complete Time: 14:54 snw 02/12 14:08 Order name: Ptt, Activated; Complete Time: 14:54 snw 02/12 17:14 Order name: ABG Arterial Blood Gas; Complete Time: 17:59 EDMS 02/12 17:14 Order name: Procalcitonin; Complete Time: 18:16 EDMS 02/12 17:21 Order name: Basic Metabolic Panel EDMS 02/12 17:21 Order name: Basic Metabolic Panel EDMS 02/12 17:21 Order name: CBC with Automated Diff EDMS 02/12 17:21 Order name: CBC with Automated Diff EDMS 02/12 17:21 Order name: Magnesium EDMS 02/12 17:21 Order name: Magnesium EDMA 02/12 17:21 Order name: Phosphorus EDMA 02/12 17:21 Order name: Phosphorus [facility] [place] 02/12 17:21 Order name: Hemoglobin A1c EDMA 02/12 17:21 Order name: Hemoglobin A1c [facility] [place] 02/12 14:08 Order name: Chest Single View XRAY; Complete Time: 15:47 snw 02/12 15:49 Order name: CT Chest For PE Angio; Complete Time: 18:25 snw 02/12 14:08 Order name: EKG; Complete Time: 14:09 snw 02/12 17:21 Order name: CONS Physician Consult EDMA 02/12 17:21 Order name: Physical Therapy Consult [facility] [place] 02/12 17:21 Order name: 60g Consistent Carbohydrate (ADA 1800/1999) EDMA 02/12 14:08 Order name: Accucheck; Complete Time: 14:29 snw 02/12 14:08 Order name: Cardiac monitoring; Complete Time: 14:29 snw 02/12 14:08 Order name: EKG - Nurse/Tech; Complete Time: 15:00 snw 02/12 14:08 Order name: IV Saline Lock - Large Bore; Complete Time: 14:29 snw 02/12 14:08 Order name: Labs collected and sent; Complete Time: 14:29 snw 02/12 14:08 Order name: O2 Per Protocol; Complete Time: 14:29 snw 02/12 14:08 Order name: O2 Sat Monitoring; Complete Time: 14:29 snw 02/12 14:08 Order name: Vital Signs; Complete Time: 14:29 snw EC:47 Rate is 86 beats/min. Rhythm is regular. QRS [place] is Normal. [place] interval is normal. QRS snw interval is normal. QT interval is normal. Clinical impression: NSR w/ Non-specific ST/T Changes. Administered Medications: 15:04 Drug: NS 0.9% IV 1000 ml Route: IV; Rate: 75 ml/hr; Site: left wrist; ko1 15:14 Drug: Ondansetron IVP 4 mg Route: IVP; Site: left wrist; ko1 Disposition Summary: 02/12/23 16:43 Hospitalization Ordered Hospitalization Status: Inpatient Admission sn Provider: Bart Robles Location: Telemetry/MedSurg (Inpatient) snw Condition: Stable snw Problem: an acute exacerbation snw Symptoms: have worsened snw Bed/Room Type: Standard snw Room Assignment: 406(02/12/23 17:52) dw Diagnosis - COPD/ Chronic obstructive pulmonary disease with acute lower respiratory infection snw Forms: - Medication Reconciliation Form snw - SBAR form snw Addendum: 02/17/2023 06:59 Co-signature as Attending Physician, Jem Santos MD I reviewed the patient's care r n provided by the Advanced Practice Provider and agree with the diagnosis and treatment plan. Signatures: Dispatcher [employer] EDGénesis Arias RN RN dw Waters, Shelly, VULCANIZED FIBER UNIT OPERATOR-C VULCANIZED FIBER UNIT OPERATOR-Csnw Jem Santos MD MD rn Oliver, Kathy, RN RN ko1 Brown, Sophia PAMakennaC PAAwilda sb4 Corrections: (The following items were deleted from the chart) 02/12 14:10 14:06 PMHx: kidney failure; ko1 ko1 14:10 14:06 PMHx: diabetes mellitus; ko1 ko1 14:10 14:06 PMHx: Hypertensive disorder; ko1 ko1 14:10 14:06 PMHx: stroke in 2014; ko1 ko1 14:10 14:06 PMHx: Chronic obstructive lung disease; ko1 ko1 14:10 14:06 PMHx: Parkinson's disease; ko1 ko1 14:10 14:06 PSHx: caroditectomy x 2 left; ko1 ko1 17:52 16:43 snw dw
--- NOTE | 2023-02-12 17:03 | P.HP ---
Certification for Inpatient Patient admitted to: Inpatient With expected LOS: >2 Midnights Patient will require the following post-hospital care: None Practitioner: I am a practitioner with admitting privileges, knowledge of patient current condition, hospital course, and medical plan of care. Services: Services provided to patient in accordance with Admission requirements found in Title 42 Section 412.3 of the Code of Federal Regulations Patient History Date of Service: 02/12/23 Reason for admission: Pneumonia History of Present Illness: Service was provided via video visit/Tele-Medicine. For that reason, no physical examination was performed. Verbal consent was obtained prior to visit. Ms. Mariah Canales is a pleasant 77 year old female who has a past medical history of carotid artery stenosis s/p stenting, Parkinson's disease, prior cerberovascular accident, type II diabetes mellitus, and hyperlipidemia who presents to the [facility] Emergency Department with shortness of breath and productive cough. She reports that, over the last 2-3 days, she has had progressively worsening shortness of breath and cough. She denies any known ill contacts, but she lives at [facility]. She was started on azithromycin this morning prior to arrival; however, she was sent to the Emergency Department due to her SpO2 dropping 88% at the nursing facility. On review of systems, she denies any fevers, chills, headaches, dizziness, syncope, numbness/tingling, weakness, chest pain, palpitations, abdominal pain, nausea/vomiting, diarrhea, or any other symptoms. Upon presentation, her vital signs were stable. Her laboratory studies were notable for a WBC count of 14,200, a hemoglobin of 9.2, and a sodium of 129. Blood cultures x 2 were obtained. Her EKG was without STEMI criteria. Her chest x-ray revealed, "new airspace opacity at the right lung apex, raises concern for atelectasis or pneumonia." In the Emergency Department, she was given ondansetron and 1 L Normal Saline. She was admitted to the General Internal Medicine Service for further evaluation. Allergies No Known Allergies Allergy (Verified 03/19/21 05:13) Home medications list reviewed: Yes Home Medications: Albuterol Inhaler [Ventolin Inhaler*] 1 - 2 puff IH Q6HP PRN 03/19/21 Atorvastatin Calcium 40 mg PO DAILY 03/19/21 Buspirone HCl [Buspar] 30 mg PO BID 03/19/21 Clopidogrel Bisulfate [Plavix*] 75 mg PO DAILY 03/19/21 Escitalopram Oxalate [Lexapro] 10 mg PO DAILY 03/19/21 Fluticasone Propion/Salmeterol [Wixela 250-50 Inhub] 1 puff IH BID 03/19/21 Lisinopril [Zestril] 10 mg PO DAILY 03/19/21 Mirtazapine [Remeron*] 15 mg PO BEDTIME 03/19/21 Pantoprazole [Protonix Tab*] 40 mg PO DAILY 03/19/21 Quetiapine [Seroquel*] 1 tab PO BEDTIME 03/19/21 glipiZIDE [Glipizide] 5 mg PO DAILY 03/19/21 - Past Medical/Surgical History Diabetic: Yes -: Depression -: Diabetes Type 2 -: Hypertension -: CVA - Family History Family History: Reviewed- Non-Contributory - Social History Alcohol use: No CD- Drugs: No Caffeine use: Yes Review of Systems General: Unremarkable Eyes: Unremarkable ENT: Unremarkable Respiratory: Cough, Shortness of Breath, Sputum Cardiovascular: Unremarkable Gastrointestinal: Unremarkable Genitourinary: Unremarkable Musculoskeletal: Unremarkable Integumentary: Unremarkable Neurological: Unremarkable Lymphatics: Unremarkable Physical Examination - Vital Signs Temperature: 98.9 F Blood Pressure: 138/68 Pulse: 72 Respirations: 18 Pulse Ox (%): 98 - Physical Exam General: Alert, In no apparent distress (appears non-toxic), Oriented x3 HEENT: Atraumatic, Sclerae nonicteric Respiratory: Other (No apparent respiratory distress.) Neurological: Normal speech, Normal affect - Studies Laboratory Data (last 24 hrs) 02/12/23 14:30: PT 12.3, INR 1.12, APTT 24.2 L 02/12/23 14:30: Sodium 129 L, Potassium 3.5, BUN 16, Creatinine 0.73, Glucose 192 H, Total Bilirubin 0.2, AST 9 L, ALT 12 L, Alkaline Phosphatase 70 02/12/23 14:30: WBC 14.20 H, Hgb 9.2 L, Hct 28.4 L, Plt Count 441 H Assessment and Plan - Plan # Acute Hypoxic Respiratory Failure possibly due to Pneumonia - Evaluation thus far: - Currently on room air, but reportedly had SpO2 of 88 % at [facility] - Procalcitonin = pending - VBG = pending - Does not currently meet sepsis criteria - Chest x-ray = "new airspace opacity at the right lung apex, raises concern for atelectasis or pneumonia. - CT angiogram chest = pending - Management plan: - Consulted Pulmonology - recommendations appreciated - Consulted Respiratory Therapy - Supplemental oxygen to maintain SpO2 > 92% - Started vancomycin + cefepime to cover HCAP given that she lives in [facility] - PRN benzonatate, guaifenesin - Encouraged incentive spirometry # Acute on Chronic Anemia - Hgb 9.2 (baseline appears to be mid-10s) - No reported evidence of bleeding - Monitor H&H and transfuse for Hbg <7.0 # History of Cerebrovascular Accident # Parkinson's Disease # Hyperlipidemia - Continue home aspirin, atorvastatin, clopidogrel - Started folic acid # Hyperglycemia in Type II Diabetes Mellitus - Ordered Hgb A1c - Correction scale insulin # Mild Hyponatremia secondary to Hyperglycemia - Monitor BMP # Depression - Continue home escitalopram Bart Robles M.D. - Advance Directives Does patient have a Living Will: No Does patient have a Durable POA for Healthcare: No
[2023-02-12] MEDS ORDERED: BENZONATATE 100 MG CAP PO PRN (17:32)
[2023-02-12] MEDS ORDERED: guaiFENesin 100 MG/5 ML UCUP PO PRN (17:33)
[2023-02-12 17:45] LABS: Arterial Blood Carboxyhemoglob 1.4 % (0-1.5); Blood O2 Saturation 72.1 % (92-98.5)
[2023-02-12] MEDS ORDERED: VANCOMYCIN 1 GM in NA CHLORIDE 0.9% 250 ML IVPB ONE (18:00)
[2023-02-12] MEDS: ENOXAPARIN 40 MG/0.4 ML SQ SCH (18:00)
[2023-02-12] MEDS ORDERED: VANCOMYCIN 1 GM/VIAL ONE (18:17)
--- NOTE | 2023-02-12 18:17 | RAD REPORT ---
EXAM DESCRIPTION: CT - Chest For Pe Angio - 02/12/2023 5:33 pm CLINICAL HISTORY: COUGH COMPARISON: Chest Single View dated 02/12/2023 TECHNIQUE: Thin axial CT images of the chest were obtained following administration of 74 mL Isovue 370 IV contrast. Multiplanar reconstructions, and maximum intensity projection reconstructions were g enerated and reviewed. Exam utilizes a protocol for optimal evaluation of pulmonary arterial tree. All CT scans are performed using dose optimization technique as appropriate and may include automated exposure control or mA/KV adjustment according to patient size. FINDINGS: Pulmonary arteries are normal. No emboli or other suspicious finding. Thoracic aorta is normal in caliber. Moderate calcified and noncalcified plaque formation throughout the arch and descending aorta, with extensive regions of plaque surface irregularity particularly mundo ng the descending aorta. Innumerable punctate mostly calcified nodules throughout the lungs, not exceeding 3 millimeter. Scatt ered tree-in-bud opacities throughout the lungs, most notably in the posterior right lower lobe upper segment, central and superior right upper lobe, and peripheral left upper and lower lobes. Central a reas of bronchial wall thickening are also noted predominantly in the lower lobes. Subsegmental opaci fication in the anterior left basal lower lobe, suggestive of atelectasis. No pleural thickening or p leural effusion. No pneumothorax. No abnormal mediastinal or hilar masses or lymphadenopathy seen. No chest wall mass or abnormal axill iary lymphadenopathy. IMPRESSION: No evidence of acute central pulmonary emboli. Scattered tree-in-bud opacities as above, could reflect an infectious or inflammatory process such as bronchitis or nonspecific bronchiolitis. Mixed density atherosclerotic plaque formation with extensive regions of plaque surface irregularity 1 particularly along the descending aorta.
[2023-02-12] MEDS ORDERED: NA CHLORIDE 0.9% 250 ML ONE (18:18)
[2023-02-12] MEDS: INSULIN -REGULAR HUMAN 50 UNIT/0.5 ML ML SQ SCH (21:00)
[2023-02-12] MEDS: TRAMADOL HCL 50 MG TAB PO PRN (21:30)
[2023-02-12] MEDS: ONDANSETRON 4 MG/2 ML VIAL IV PRN (21:31)
[2023-02-12] MEDS: CEFEPIME 1 GM in NA CHLORIDE 0.9% 100 ML IV SCH (21:32)
[2023-02-12 21:45] VITALS: O2SAT 94; BMI 19.3
[2023-02-13 04:22] LABS: Magnesium 1.7 mg/dL (1.6-2.4); Phosphorus 1.9 mg/dL (2.5-4.9); Potassium 3.3 mEq/L (3.5-5.1)
[2023-02-13 04:28] LABS: Absolute Lymphocytes (CBC) 1.5 K/uL (0.7-4.9); Hematocrit 29.7 % (36.0-45.0); Lymphocytes % 8.9 % (15.3-44.8); MCV 84.7 fL (80-100); MPV 8.1 fL (7.6-11.3)
[2023-02-13] MEDS: ONDANSETRON 4 MG/2 ML VIAL IV PRN ×2 (05:15→15:03)
[2023-02-13] MEDS: TRAMADOL HCL 50 MG TAB PO PRN ×2 (05:20→21:20)
[2023-02-13] MEDS: INSULIN -REGULAR HUMAN 50 UNIT/0.5 ML ML SQ SCH ×4 (07:30→21:00)
[2023-02-13] MEDS ORDERED: PNEUMOCOCCAL VACCINE 0.5 ML IMVAC ONE (08:00)
[2023-02-13] MEDS: ENOXAPARIN 40 MG/0.4 ML SQ SCH (09:05)
[2023-02-13] MEDS: CEFEPIME 1 GM in NA CHLORIDE 0.9% 100 ML IV SCH (09:05)
[2023-02-13] MEDS: ATORVASTATIN 40 MG TAB PO SCH (09:06)
[2023-02-13] MEDS: ASPIRIN 81 MG CHEWABLE TABLET PO SCH (09:06)
[2023-02-13] MEDS: ESCITALOPRAM 20 MG TAB PO SCH (09:06)
[2023-02-13] MEDS: CLOPIDOGREL 75 MG TABLET PO SCH (09:06)
[2023-02-13] MEDS: FOLIC ACID 1 MG TABLET PO SCH (09:06)
--- NOTE | 2023-02-13 12:05 | P.CNS ---
Date of Consult: 02/13/23 Reason for Consult: COPD exacerbation Chief Complaint: Possible pneumonia History of Present Illness: Patient is 77 years of age male with a 3-day history of productive cough green mucus has had a history of left-sided stroke does not ambulate not use any oxy gen or inhalers at home is feeling better Allergies No Known Allergies Allergy (Verified 03/19/21 05:13) Home Medications: Atorvastatin Calcium 40 mg PO BEDTIME 03/19/21 Buspirone HCl [Buspar] 30 mg PO BID 03/19/21 Clopidogrel Bisulfate [Plavix*] 75 mg PO DAILY 03/19/21 Escitalopram Oxalate [Lexapro] 10 mg PO DAILY 03/19/21 glipiZIDE [Glipizide] 5 mg PO DAILY 03/19/21 Acetaminophen [Tylenol Extra Strength] 500 mg PO TIDP PRN 02/12/23 Furosemide 20 mg PO DAILY 02/12/23 Lidocaine 4% Patch [Lidoderm 5% Patch] 1 patch TP DAILY 02/12/23 Ondansetron [Zofran] 4 mg PO Q8HP PRN 02/12/23 Sennosides/Docusate Sodium [Gnp Senna Plus 8.6-50 mg Tab] 1 each PO BIDP PRN 02/12/23 Tramadol HCl [Ultram] 50 mg PO Q6HP PRN 02/12/23 dronabinoL [Marinol] 5 mg PO Q8HP PRN 02/12/23 polyethylene glycoL 3350 [Polyethylene Glycol 3350] 17 gm PO Q4HP PRN 02/12/23 - Past Medical/Surgical History Diabetic: Yes -: Depression -: Diabetes Type 2 -: Hypertension -: CVA -: Presumed COPD -: neck surgery - Social History Smoking Status: Current some day smoker Alcohol use: No CD- Drugs: No Caffeine use: No Place of Residence: [facility] Home Review of Systems 10-point ROS is otherwise unremarkable General: Weakness Respiratory: Cough Physical Examination Temp Pulse Resp BP Pulse Ox 98.6 F 100 H 20 187/82 H 93 02/13/23 08:00 02/13/23 08:00 02/13/23 08:00 02/13/23 08:00 02/13/23 08:00 General: Alert, Oriented x3 HEENT: Atraumatic Neck: Supple Respiratory: Clear to auscultation bilaterally, Diminished Cardiovascular: No edema, Regular rate/rhythm, Normal S1 S2 Gastrointestinal: Normal bowel sounds, Soft and benign Laboratory Data (last 24 hrs) 02/12/23 14:30: PT 12.3, INR 1.12, APTT 24.2 L 02/12/23 14:30: Sodium 129 L, Potassium 3.5, BUN 16, Creatinine 0.73, Glucose 192 H, Total Bilirubin 0.2, AST 9 L, ALT 12 L, Alkaline Phosphatase 70 02/12/23 14:30: WBC 14.20 H, Hgb 9.2 L, Hct 28.4 L, Plt Count 441 H - Problems (1) COPD exacerbation Current Visit: Yes Status: Acute Plan: Patient is 77 years of age admitted with COPD exacerbation does not take any inhalers or nebulizers at home patient is immobile due to a left-sided stroke admitted with 3-day history of productive cough commend discharge on levofloxacin is on 10 mg twice a day and a trilogy inhaler room air saturation satisfactory patient leads a sedentary lifestyle and able to ambulate lives in a nursing chest x-ray shows COPD changes
[2023-02-13] MEDS: levoFLOXacin 500 MG TAB PO SCH (12:39)
[2023-02-13] MEDS: predniSONE 20 MG TAB PO SCH ×2 (12:39→21:20)
--- NOTE | 2023-02-13 13:47 | EKG ---
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
--- NOTE | 2023-02-13 17:57 | P.PN ---
Subjective Date of Service: 02/13/23 Chief Complaint: Possible pneumonia Patient states she feels better than yesterday. She is currently tolerating room air but stated she easily gets short of breath with exertion. No fever. She denies chest pain. Physical Examination - Vital Signs Temperature: 97 F Blood Pressure: 139/61 Pulse: 87 Respirations: 20 Pulse Ox (%): 92 - Physical Exam General: Alert, In no apparent distress, Oriented x3, Other (Underweight) HEENT: Mucous membr. moist/pink Neck: JVD not distended Respiratory: Normal air movement, Other (Mild scattered wheezes bilaterally) Cardiovascular: No edema, Regular rate/rhythm, Normal S1 S2 Gastrointestinal: Normal bowel sounds, Soft and benign, Non-distended, No tenderness Musculoskeletal: No swelling, No tenderness Integumentary: No rashes, No cyanosis Neurological: Normal speech, Normal strength at 5/5 x4 extr - Studies Microbiology Data (last 24 hrs): 02/12/23 14:45 Blood - Blood Anaerobic Blood Culture - Final Assessment And Plan - Current Problems (Diagnosis) (1) Acute respiratory failure with hypoxia Current Visit: Yes Status: Acute (2) COPD exacerbation Current Visit: Yes Status: Acute (3) Hypertension Current Visit: No Status: Chronic Qualifiers: Hypertension type: primary hypertension Qualified Code(s): I10 - Essential (primary) hypertension (4) Type 2 diabetes mellitus Current Visit: No Status: Chronic Qualifiers: Diabetes mellitus senior living insulin use: with senior living use Diabetes mellitus complication status: with hypoglycemia Diabetes mellitus complication detail: without coma Qualified Code(s): E11.649 - Type 2 diabetes mellitus with hypoglycemia without coma; Z79.4 - detention (current) use of insulin - Plan Acute Hypoxic Respiratory Failure/ Pneumonia - Evaluation thus far: - Currently on room air, but reportedly had SpO2 of 88 % at [place] - Procalcitonin = 0.07. Pneumonia is not likely. -She did not meet sepsis criteria - Chest x-ray = "new airspace opacity at the right lung apex, raises concern for atelectasis or pneumonia. - CT angiogram chest = Scattered tree-in-bud opacities as above, could reflect an infectious or inflammatory process such as bronchitis or nonspecific bronchiolitis. - Consulted Pulmonology - recommendations appreciated - Started vancomycin + Levaquin to cover HCAP given that she lives in [facility] - PRN benzonatate, guaifenesin Acute on Chronic Anemia - Hgb 9.2 (baseline appears to be mid-10s) - No reported evidence of bleeding - Monitor H&H and transfuse for Hbg <7.0 History of Cerebrovascular Accident/Parkinson's Disease/Hyperlipidemia - Continue home aspirin, atorvastatin, clopidogrel Hyperglycemia in Type II Diabetes Mellitus - Ordered Hgb A1c - Correction scale insulin. - Hold glipizide Depression - Continue home escitalopram
[2023-02-13] MEDS ORDERED: VANCOMYCIN 1 GM in NA CHLORIDE 0.9% 250 ML IVPB SCH (18:00)
[2023-02-14 04:22] LABS: Absolute Lymphocytes (CBC) 1.4 K/uL (0.7-4.9); Hematocrit 28.4 % (36.0-45.0); Lymphocytes % 7.9 % (15.3-44.8); MPV 8.1 fL (7.6-11.3); RBC Red Blood Cell Count 3.38 M/uL (3.86-4.86)
[2023-02-14 04:36] LABS: Potassium 4.4 mEq/L (3.5-5.1)
[2023-02-14 04:45] LABS: Blood Morphology Comment NOTED (NOT SEEN); Platelet Estimate ADEQ; Polychromasia SLIGHT
[2023-02-14] MEDS: INSULIN -REGULAR HUMAN 50 UNIT/0.5 ML ML SQ SCH (07:30)
[2023-02-14 08:22] VITALS: BP 156/67; TEMP 97.7
[2023-02-14] MEDS: ENOXAPARIN 40 MG/0.4 ML SQ SCH (08:41)
[2023-02-14] MEDS: FOLIC ACID 1 MG TABLET PO SCH (08:42)
[2023-02-14] MEDS: ATORVASTATIN 40 MG TAB PO SCH (08:42)
[2023-02-14] MEDS: levoFLOXacin 500 MG TAB PO SCH (08:42)
[2023-02-14] MEDS: predniSONE 20 MG TAB PO SCH (08:42)
[2023-02-14] MEDS: CLOPIDOGREL 75 MG TABLET PO SCH (08:42)
[2023-02-14] MEDS: ASPIRIN 81 MG CHEWABLE TABLET PO SCH (08:43)
[2023-02-14] MEDS: ESCITALOPRAM 20 MG TAB PO SCH (08:43)
--- NOTE | 2023-02-14 08:56 | P.DS ---
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 Mariah Canales is a pleasant 77 year old female who has a past medical history of carotid artery stenosis s/p stenting, Parkinson's disease, prior cerberovascular accident, type II diabetes mellitus, and hyperlipidemia who presents to the [facility] Emergency Department with shortness of breath and productive cough. She reported progressively worsening shortness of breath and cough. She denies any known ill contacts, but she lives at [facility]. She was started on azithromycin before transfer to the ED. She was sent to the Emergency Department due to her SpO2 dropping 88% at the nursing facility. On review of systems, she denies any fevers, chills, headaches, dizziness, syncope, numbness/tingling, weakness, chest pain, palpitations, abdominal pain, nausea/vomiting, diarrhea, or any other symptoms. Upon presentation, her vital signs were stable. Her laboratory studies were notable for a WBC count of 14,200, a hemoglobin of 9.2, and a sodium of 129. Blood cultures x 2 were obtained. Her EKG was without STEMI criteria. Her chest x-ray revealed, "new airspace opacity at the right lung apex, raises concern for atelectasis or pneumonia." In the Emergency Department, she was given ondansetron and 1 L Normal Saline. She was admitted to the General Internal Medicine Service for further evaluation. Hospital Course: Acute Hypoxic Respiratory Failure/ Pneumonia Patient admitted to the medical floor -She tolerated room air. - Procalcitonin = 0.07. Pneumonia is not likely. -She did not meet sepsis criteria - Chest x-ray = "new airspace opacity at the right lung apex, raises concern for atelectasis or pneumonia. - CT angiogram chest = Scattered tree-in-bud opacities as above, could reflect an infectious or inflammatory process such as bronchitis or nonspecific bronchiolitis. - Consulted Pulmonology. -Patient managed with vancomycin + Levaquin to cover HCAP given that she lives in long-term -She is clinically improved and deemed stable for discharge. She states that she feels improved to baseline. -She is prescribed Levaquin to continue treatment for pneumonia. Acute on Chronic Anemia - Hgb 9.2 (baseline appears to be mid-10s) - No reported evidence of bleeding History of Cerebrovascular Accident/Parkinson's Disease/Hyperlipidemia - Continued home aspirin, atorvastatin, clopidogrel Hyperglycemia in Type II Diabetes Mellitus -Managed with scale insulin. -Held glipizide during the hospital stay and resumed it on discharge Depression - Continued home escitalopram Vital Signs/Physical Exam: Temp Pulse Resp BP Pulse Ox 97.7 F 97 H 18 156/67 H 91 02/14/23 08:00 02/14/23 08:00 02/14/23 08:00 02/14/23 08:00 02/14/23 08:00 General: In no apparent distress HEENT: Mucous membr. moist/pink Neck: Supple, JVD not distended Respiratory: Clear to auscultation bilaterally, Normal air movement Cardiovascular: No edema, Regular rate/rhythm, Normal S1 S2 Gastrointestinal: Soft and benign, Non-distended, No tenderness Musculoskeletal: No swelling Integumentary: No cyanosis Neurological: Normal strength at 5/5 x4 extr Laboratory Data at Discharge: WBC 18.10 thou/uL (4.3-10.9) H 02/14/23 04:01 Hgb 9.1 g/dL (12.0-15.0) L 02/14/23 04:01 Hct 28.4 % (36.0-45.0) L 02/14/23 04:01 Plt Count 469 thou/uL (152-406) H 02/14/23 04:01 PT 12.3 SECONDS (9.5-12.5) 02/12/23 14:30 INR 1.12 02/12/23 14:30 APTT 24.2 SECONDS (24.3-36.9) L 02/12/23 14:30 Sodium 133 mEq/L (136-145) L 02/14/23 04:01 Potassium 4.4 mEq/L (3.5-5.1) D 02/14/23 04:01 BUN 20 mg/dL (7-18) H 02/14/23 04:01 Creatinine 0.59 mg/dL (0.55-1.02) 02/14/23 04:01 Glucose 177 mg/dL (74-106) H 02/14/23 04:01 Phosphorus 1.9 mg/dL (2.5-4.9) L 02/13/23 03:46 Magnesium 1.7 mg/dL (1.6-2.4) 02/13/23 03:46 Total Bilirubin 0.2 mg/dL (0.2-1.0) 02/12/23 14:30 AST 9 U/L (15-37) L 02/12/23 14:30 ALT 12 U/L (13-56) L 02/12/23 14:30 Alkaline Phosphatase 70 U/L (45-117) 02/12/23 14:30 Home Medications: Atorvastatin Calcium 40 mg PO BEDTIME 03/19/21 Buspirone HCl [Buspar] 30 mg PO BID 03/19/21 Clopidogrel Bisulfate [Plavix*] 75 mg PO DAILY 03/19/21 Escitalopram Oxalate [Lexapro] 10 mg PO DAILY 03/19/21 glipiZIDE [Glipizide] 5 mg PO DAILY 03/19/21 Acetaminophen [Tylenol Extra Strength] 500 mg PO TIDP PRN 02/12/23 Furosemide 20 mg PO DAILY 02/12/23 Lidocaine 4% Patch [Lidoderm 5% Patch*] 1 patch TP DAILY 02/12/23 Ondansetron [Zofran (Odt)*] 4 mg PO Q8HP PRN 02/12/23 Sennosides/Docusate Sodium [Gnp Senna Plus 8.6-50 mg Tab] 1 each PO BIDP PRN 02/12/23 Tramadol HCl [Ultram] 50 mg PO Q6HP PRN 02/12/23 dronabinoL [Marinol] 5 mg PO Q8HP PRN 02/12/23 polyethylene glycoL 3350 [Polyethylene Glycol 3350] 17 gm PO Q4HP PRN 02/12/23 Fluticasone/Umeclidin/Vilanter [Trelegy Ellipta 100-62.5-25] 1 each IH DAILY 30 Days #30 aero 02/13/23 levoFLOXacin [Levaquin*] 500 mg PO DAILY #7 tab 02/13/23 predniSONE [Prednisone*] 20 mg PO BID #14 tab 02/13/23 New Medications: levoFLOXacin [Levaquin*] 500 mg PO DAILY #7 tab predniSONE [Prednisone*] 20 mg PO BID #14 tab Fluticasone/Umeclidin/Vilanter [Trelegy Ellipta 100-62.5-25] 1 each IH DAILY 30 Days #30 aero Followup: NONE,NONE [Primary Care Provider] - Time spent managing pt's care (in minutes): 36
== END 2023-02-14 13:21 | disposition home or self-care (01) | DRG 193 ==
LOC: ER 13:55 → ERHOLD 17:25 → 4TH 18:14
PROVIDERS: ADMIT Internal Medicine; ATTEND Internal Medicine
DX: J18.9 Pneumonia, unspecified organism (principal); J96.01 Acute respiratory failure with hypoxia; E87.1 Hypo-osmolality and hyponatremia; I69.354 Hemiplegia and hemiparesis following cerebral infarction affecting left non-dominant side; J44.1 Chronic obstructive pulmonary disease with (acute) exacerbation; J44.0 Chronic obstructive pulmonary disease with (acute) lower respiratory infection; E11.649 Type 2 diabetes mellitus with hypoglycemia without coma; E11.65 Type 2 diabetes mellitus with hyperglycemia; I10 Essential (primary) hypertension; G20 Parkinson's disease; D64.9 Anemia, unspecified; F32.A Depression, unspecified; E78.5 Hyperlipidemia, unspecified; F17.200 Nicotine dependence, unspecified, uncomplicated; Z79.02 Long term (current) use of antithrombotics/antiplatelets; Z79.84 Long term (current) use of oral hypoglycemic drugs; Z79.899 Other long term (current) drug therapy
CPT/HCPCS: 36415; 71045; 71275; 80048; 80053; 82805; 82947; 83036; 83605; 83735; 84100; 84145; 85025; 85610; 85730; 87040; 93005; 94010; 96374; 99285; J0692; J1650; J1815; J2405; J7030; J7050; J7512; Q9967

== ENCOUNTER 2023-07-06 17:34 | Inpatient (IN) | payer OTHER ==
[2023-07-06 17:55] LABS: Absolute Lymphocytes (CBC) 0.7 K/uL (0.7-4.9); Hematocrit 30.7 % (36.0-45.0); Lymphocytes % 9.9 % (15.3-44.8); MCV 81.9 fL (80-100); MPV 8.7 fL (7.6-11.3); Platelets 231 thou/uL (152-406); RBC Red Blood Cell Count 3.75 M/uL (3.86-4.86)
--- OUTSIDE RECORDS SUMMARY | 2023-07-06 17:56 | XMS REPORT | Continuity of Care Document ---
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 WASTE: F/P - Black; E - Municipal Trash Bin Stable for 28 days at room temperatur e. Expires in days from ____Date Dextrose 2019-0 No 12.5 gm, Memor ia 50% Syringe 2- 25 mL, l (D50W) 20:56: Route: Jasbir 00 IVP, Drug Form: INJ, Dosing Weight 45.045, kg, PRN, PRN Blood Glucose Results, Start date: 10/21/19 14:56:00 LOCOMOTIVE SUPERVISOR, Duration: 30 day, Stop date: 11/20/19 15:55:00 CDT, 0 Glucagon No 1 mg, Memoria 2 Route: IM, l 20:56: Drug form: Jasbir 00 PDR/INJ, PRN, Dosing Weight 45.045, kg, PRN Blood Glucose Results, Start date: 10/21/19 14:56:00 LOCOMOTIVE SUPERVISOR, Duration: 30 day, Stop date: 11/20/19 [...] a 2-07 Hazardous l 15:00: Drug Group [place] 00 2:Non-anti neoplastic Hazardous Drug -- Refer [...] Memoria 2-07 (Same as: l 15:00: Prinivil, [place] 00 Zestril) Trileptal 0 No Notes: Memori a [...] l 15:00: Mirapex) Sucralfate No Notes: May emoria 2-07 interfere l 15:00: w/enteral feeds - Take 1 hr before or 2 hr after antacids, dairy pdt, meals & minerals - On empty stomach. For patients unable to swallow tablet, dissolve in 10mL - 30mL of water or juice and stir before giving. (Same As: Carafate) GI cocktail No 45 mL, Isaak lauren (aluminum 07 Route: PO, l hydroxide/m 14:00: Dosing Herm jose a agnesium 00 Weight hydroxide/l 45.045, idocaine/si kg, methicone) TID-Meals, Start date: 10/21/19 8:00:00 LOCOMOTIVE SUPERVISOR, Duration: 30 day, Stop date: 11/19/19 17:00:00 LOCOMOTIVE SUPERVISOR Al No Notes: Memoria hydroxide/M 2-07 (aluminum l g 14:00: hydroxide- [place] hydroxide/s 00 magnesium imethicone hyd-simeth icone 200-200-20 mg/5ml 30 ml ud GAIL) Xylocaine No Notes: Memori a Viscous 2% 2-07 (Same as: l mucous 14:00: Xylocaine) Estelle nn membrane 00 solution GI cocktail 0 No 45 mL, Isaak lauren (aluminum 2-07 Route: PO, l hydroxide/m 14:00: Dosing Herm jose a agnesium 00 Weight hydroxide/l 45.045, idocaine/si kg, methicone) TID-Meals, Start date: 10/21/19 8:00:00 LOCOMOTIVE SUPERVISOR, Duration: 30 day, Stop date: 11/19/19 17:00:00 LOCOMOTIVE SUPERVISOR Al 2019-0 No Notes: Memoria hydroxide/M 2-07 (aluminum l g 14:00: hydroxide- [place] hydroxide/s 00 magnesium imethicone hyd-simeth icone 200-200-20 mg/5ml 30 ml ud GAIL) Xylocaine 0 No Notes: Memori a Viscous 2% 2-07 (Same as: l mucous 14:00: Xylocaine) Estelle nn membrane 00 solution GI cocktail 0 No 45 mL, Isaak lauren (aluminum 2-07 Route: PO, l hydroxide/m 14:00: Dosing Herm jose a agnesium 00 Weight hydroxide/l 45.045, idocaine/si kg, methicone) TID-Meals, Start date: 10/21/19 8:00:00 LOCOMOTIVE SUPERVISOR, Duration: 30 day, Stop date: 11/19/19 17:00:00 LOCOMOTIVE SUPERVISOR Al No Notes: Memoria hydroxide/M 2-07 (aluminum l g 14:00: hydroxide- [place] hydroxide/s 00 magnesium imethicone hyd-simeth icone 200-200-20 mg/5ml 30 ml ud GAIL) Xylocaine 0 No Notes: Memori a Viscous 2% 2-07 [...] a 2-07 DAUGHTER l 04:52: NOT SURE [place] 00 OF THE DOSAGE, 0 Refill(s) Nicotine [...] Memoria 2-07 (Same as: l 02:24: Habitrol) [place] 00 "Remove old patch before applicatio n [...] emoria 2-07 Rate: 40 l 01:37: ml/hr, [place] 00 Infuse over: 25 hr, Route: IV, Dosing Weight 45.455 kg, Total Volume: 1,000, Start date: 10/20/19 19:37:00 LOCOMOTIVE SUPERVISOR, Duration: 1 doses or times, Stop date: 10/21/19 20:36:00 LOCOMOTIVE SUPERVISOR, 1.4, m2, 0 Protonix 2019-0 No Notes: For Mem oria 2-07 IV push l 01:37: reconstitu Jasbir 00 te with 10 ml 0.9% sodium chloride and push over 2 minutes. (Same as: Protonix) Labetalol 2020-0 No 170; hold Mem oria 2-07 for HR<65, l 01:37: 0 [place] 00 NS 1,000 mL 2020-0 No 1,000 mL, M emoria 2-07 Rate: 40 l 01:37: ml/hr, Jasbir 00 Infuse over: 25 hr, Route: IV, Dosing Weight 45.455 kg, Total Volume: 1,000, Start date: 10/20/19 19:37:00 LOCOMOTIVE SUPERVISOR, Duration: 1 doses or times, Stop date: 10/21/19 20:36:00 LOCOMOTIVE SUPERVISOR, 1.4, m2, 0 Protonix 2020-0 No Notes: [...] Total Volume: 1,000, Start date: 10/20/19 19:37:00 LOCOMOTIVE SUPERVISOR, Duration: 1 doses or times, Stop date: 10/21/19 20:36:00 LOCOMOTIVE SUPERVISOR, 1.4, m2, 0 Dextrose 2020-0 No 12.5 gm, Memor ia 50% Syringe 2-07 25 mL, l (D50W) 01:36: Route: Jasbir 00 IVP, Drug Form: INJ, Dosing Weight 45.455, kg, PRN, PRN Blood Glucose Results, Start date: 10/20/19 19:36:00 LOCOMOTIVE SUPERVISOR, Duration: 30 day, Stop date: 11/19/19 19:35:00 LOCOMOTIVE SUPERVISOR, 0 Dextrose 2020-0 No 12.5 gm, Memor ia 50% Syringe 2-07 25 mL, l (D50W) 01:36: Route: Jasbir 00 IVP, Drug Form: INJ, Dosing Weight 45.455, kg, PRN, PRN Blood Glucose Results, Start date: 10/20/19 19:36:00 LOCOMOTIVE SUPERVISOR, Duration: 30 day, Stop date: 11/19/19 19:35:00 LOCOMOTIVE SUPERVISOR, 0 Glucagon 2020-0 No 1 mg, Memoria 2-07 Route: IM, l 01:36: Drug form: Jasbir 00 PDR/INJ, PRN, Dosing Weight 45.455, kg, PRN Blood Glucose Results, Start date: 10/20/19 19:36:00 LOCOMOTIVE SUPERVISOR, Duration: 30 day, Stop date: 11/19/19 19:35:00 LOCOMOTIVE SUPERVISOR, 0 Ondansetron 2020-0 No Notes: Isaak lauren 10-21 (Same as: l 01:36: Zofran) Jasbir 00 MEDICATION WASTE Product Size: 4 mg Product Wasted: ___ mg Acetaminoph 2020-0 No Notes: Do M emoria en 10-21 not exceed l 01:36: 4 gm/day. [place] 00 (Same as: Tylenol) Morphine 2020-0 No Notes: Memoria 10-21 (Same l 01:36: as:MORPhin Jasbir 00 e Sulfate) Nitroglycer 2019-0 No Notes: Isaak lauren in 10-21 (Same l 01:36: as:Nitroqu [place] 00 ick, Nitrostat) "Do Not Crush" Sublingual tablet Glucagon 0 No 1 mg, Memoria 10-21 Route: IM, l 01:36: Drug form: [place] 00 PDR/INJ, PRN, Dosing Weight 45.455, kg, PRN Blood Glucose Results, Start date: 10/20/19 19:36:00 LOCOMOTIVE SUPERVISOR, Duration: 30 day, Stop date: 11/19/19 19:35:00 LOCOMOTIVE SUPERVISOR, 0 Ondansetron 2019-0 No Notes: Isaak lauren 10-21 (Same as: l 01:36: Zofran) Jasbir 00 MEDICATION WASTE Product Size: 4 mg Product Wasted: ___ mg Acetaminoph 2019-0 No Notes: Do M emoria en 10-21 not exceed l 01:36: 4 gm/day. Jasbir (Same as: Tylenol) Morphine 2019-0 No Notes: Memoria 10-21 (Same l 01:36: as:MORPhin [place] 00 e Sulfate) Nitroglycer 2019-0 No Notes: Isaak lauren in 10-21 (Same l 01:36: as:Nitroqu Jasbir 00 ick, Nitrostat) "Do Not Crush" Sublingual tablet Dextrose 2019-0 No 12.5 gm, Memor ia 50% Syringe 10-21 25 mL, l (D50W) 01:36: Route: Jasbir 00 IVP, Drug Form: INJ, Dosing Weight 45.455, kg, PRN, PRN Blood Glucose Results, Start date: 10/20/19 19:36:00 LOCOMOTIVE SUPERVISOR, Duration: 30 day, Stop date: 11/19/19 19:35:00 LOCOMOTIVE SUPERVISOR, 0 Glucagon 2020-0 No 1 mg, Memoria 10-21 Route: IM, l 01:36: Drug form: [place] 00 PDR/INJ, PRN, Dosing Weight 45.455, kg, PRN Blood Glucose Results, Start date: 10/20/19 19:36:00 LOCOMOTIVE SUPERVISOR, Duration: 30 day, Stop date: 11/19/19 19:35:00 LOCOMOTIVE SUPERVISOR, 0 Ondansetron 2020-0 No Notes: Isaak lauren - (Same as: l 01:36: Zofran) Jasbir 00 MEDICATION WASTE Product Size: 4 mg Product Wasted: ___ mg Acetaminoph 2019-0 No Notes: Do M emoria en 10-21 not exceed l 01:36: 4 gm/day. Jasbir (Same as: Tylenol) Morphine 2020-0 No Notes: Memoria 10-21 (Same l 01:36: as:MORPhin [place] e Sulfate) Nitroglycer 2019-0 No Notes: Isaak lauren in 10-21 (Same l 01:36: as:Nitroqu [place] 00 ick, Nitrostat) "Do Not Crush" Sublingual [...] ___ mg Morphine 2020-0 No Notes: Memoria 2-06 (Same l 19:03: as:MORPhin Jasbir 00 e Sulfate) Zofran No Notes: Memoria 2-06 (Same as: l 19:03: Zofran) MEDICATION WASTE Product Size: 4 mg Product Wasted: ___ mg Morphine 2019-0 No Notes: Memoria 2-06 (Same l 19:03: as:MORPhin Jasbir 00 e Sulfate) Zofran No Notes: Memoria 2-06 (Same as: l 19:03: Zofran) 00 MEDICATION WASTE Product Size: 4 mg Product Wasted: ___ mg remove No Notes: Memoria patch 1-23 Remove old l 15:00: patch [place] 00 before applicatio n of new patch. WASTE: F/P - P Waste Black; E - P Waste Black remove No Notes: Memoria patch - Remove old l 15:00: patch [place] 00 before applicatio n of new patch. WASTE: F/P - P Waste Black; E - P Waste Black remove No Notes: Memoria patch -23 Remove old l 15:00: patch [place] 00 before applicatio n of new patch. WASTE: F/P - P Waste Black; E - P Waste Black cefdinir Yes 300 mg = 1 Mem oria 300 MG Oral 1-22 cap, PO, l Capsule 15:33: Q12H, X 7 Estelle nn [Omnicef] day, # 14 cap, 0 Refill(s), Pharmacy: [facility] #[id number] Azithromyci Yes 500 mg = 1 Memoria n 500 MG 1-22 tab, PO, l Oral Tablet 15:33: Daily, X 3 Jasbir [Zithromax] 00 day, # 3 tab, 0 Refill(s), Pharmacy: [facility] #[id number] benzonatate Yes 200 mg = 1 Memoria 200 MG Oral 1-22 cap, PO, l Capsule 15:33: TID, X 10 Estelle nn [Tessalon] 00 day, # 30 cap, 0 Refill(s), Pharmacy: [facility] #[id number] cefdinir 2020-0 Yes 300 mg = 1 Mem oria 300 MG Oral 1-22 cap, PO, l Capsule 15:33: Q12H, X 7 Estelle nn [Omnicef] 00 day, # 14 cap, 0 Refill(s), Pharmacy: [facility] #[id number] Azithromyci 2020-0 Yes 500 mg = 1 Memoria n 500 MG 1-22 tab, PO, l Oral Tablet 15:33: Daily, X 3 Jasbir [Zithromax] 00 day, # 3 tab, 0 Refill(s), Pharmacy: [facility] #[id number] benzonatate 2020-0 Yes 200 mg = 1 Memoria 200 MG Oral 1-22 cap, PO, l Capsule 15:33: TID, X 10 Estelle nn [Tessalon] 00 day, # 30 cap, 0 Refill(s), Pharmacy: [facility] #[id number] cefdinir 2020-0 Yes 300 mg = 1 Mem oria 300 MG Oral 1-22 cap, PO, l Capsule 15:33: Q12H, X 7 Estelle nn [Omnicef] 00 day, # 14 cap, 0 Refill(s), Pharmacy: [facility] #[id number] Azithromyci 2020-0 Yes 500 mg = 1 Memoria n 500 MG 1-22 tab, PO, l Oral Tablet 15:33: Daily, X 3 [place] [Zithromax] 00 day, # 3 tab, 0 Refill(s), Pharmacy: [facility] #[id number] benzonatate 2020-0 Yes 200 mg = 1 Memoria 200 MG Oral 1-22 cap, PO, l Capsule 15:33: TID, X 10 Estelle nn [Tessalon] 00 day, # 30 cap, 0 Refill(s), Pharmacy: [facility] #[id number] Potassium 2020-0 No Notes: Memori a Chloride [...] s with feeding tube less than 14 [place] (Dobhoff, J-tube etc) and pediatric and patients. [...] s with feeding tube less than 14 [place] (Dobhoff, J-tube etc) and pediatric and patients. Potassium 2020-0 No Notes: Memori a Chloride 1-22 (Same as: l 13:34: K-Dur 20) [place] 00 "Do Not Crush" Give with food and full glass of water For patients unable to swallow tablet, dissolve in one half glass of water. Allow about 2 minutes for the tablets to disintegra te. Stir before giving to prepare slurry and administer . Please exclude Patient s with feeding tube less than 14 [place] (Dobhoff, J-tube etc) and pediatric and patients. Zocor 2020-0 No Notes: Memoria 1-22 (Same as: l 03:00: Zocor) Jasbir Chantix 2020-0 No 0.5 mg, 1 Memor ia 1-22 tab, l 03:00: Route: PO, Jasbir 00 Drug form: TAB, Bedtime, Dosing Weight 45.455, kg, Start date: 10/04/19 21:00:00 LOCOMOTIVE SUPERVISOR, Duration: 30 day, Stop date: 11/02/19 21:00:00 LOCOMOTIVE SUPERVISOR Zocor 2020-0 No Notes: Memoria 1-22 (Same as: l 03:00: Zocor) Jasbir 00 Chantix 2020-0 No 0.5 mg, 1 Memor ia 1-22 tab, l 03:00: Route: PO, [place] 00 Drug form: TAB, Bedtime, Dosing Weight 45.455, kg, Start date: 10/04/19 21:00:00 LOCOMOTIVE SUPERVISOR, Duration: 30 day, Stop date: 11/02/19 21:00:00 LOCOMOTIVE SUPERVISOR Zocor 2020-0 No Notes: Memoria 1-22 (Same as: l 03:00: Zocor) Jasbir 00 Chantix 2020-0 No 0.5 mg, 1 Memor ia 1-22 tab, l 03:00: Route: PO, Drug form: TAB, Bedtime, Dosing Weight 45.455, kg, Start date: 10/04/19 21:00:00 LOCOMOTIVE SUPERVISOR, Duration: 30 day, Stop date: 11/02/19 21:00:00 LOCOMOTIVE SUPERVISOR Rocephin + 2020-0 No Notes: Memor ia [...] a 1-21 (Same As: l 17:00: Zithromax [place] 00 IV) Zithromax 2020-0 No Notes: Memori a 1-21 (Same As: l 17:00: Zithromax [place] 00 IV) Zithromax 2020-0 No Notes: Memori [...] l 15:00: Prinivil, Jasbir 00 Zestril) pantoprazol No Notes: Isaak lauren e 1-21 Tablet l 15:00: should not be chewed or crushed. (Same as: Protonix) Mirapex No Notes: Memoria 1-21 (Same as: l 15:00: Mirapex) Pramipexole No 0.125 mg, M emoria -21 1 tab, l 15:00: Route: PO, Drug form: TAB, Daily, Dosing Weight 45.455, kg, Start date: 10/04/19 9:00:00 LOCOMOTIVE SUPERVISOR, Duration: 30 day, Stop date: 11/02/19 9:00:00 LOCOMOTIVE SUPERVISOR Sucralfate No 1 gm, 1 Isaak lauren -21 tab, l 15:00: Route: PO, Drug form: TAB, BID, Dosing Weight 45.455, kg, Start date: 10/04/19 9:00:00 LOCOMOTIVE SUPERVISOR, Duration: 30 day, Stop date: 11/02/19 17:00:00 LOCOMOTIVE SUPERVISOR Cogentin No Notes: Memoria 1-21 (Same As: l 15:00: Cogentin) Buspirone No Notes: Memori a 1-21 (Same As: l 15:00: BuSpar) clopidogrel 0 No Notes: Isaak lauren 1-21 (Same As: l 15:00: Plavix) Lexapro 2019-0 No Notes: Memoria 1-21 (Same as: l 15:00: Lexapro) Prinivil 2019- No Notes: Memoria 1-21 (Same as: l 15:00: Prinivil, [place] 00 Zestril) pantoprazol No Notes: Isaak lauren e 1-21 Tablet l 15:00: should not [place] 00 be chewed or crushed. (Same as: Protonix) Mirapex No Notes: Memoria 1-21 (Same as: l 15:00: Mirapex) Pramipexole 0 No 0.125 mg, M emoria -21 1 tab, l 15:00: Route: PO, Drug form: TAB, Daily, Dosing Weight 45.455, kg, Start date: 10/04/19 9:00:00 LOCOMOTIVE SUPERVISOR, Duration: 30 day, Stop date: 11/02/19 9:00:00 LOCOMOTIVE SUPERVISOR Sucralfate 2019-0 No 1 gm, 1 Isaak lauren -21 tab, l 15:00: Route: PO, Drug form: TAB, BID, Dosing Weight 45.455, kg, Start date: 10/04/19 9:00:00 LOCOMOTIVE SUPERVISOR, Duration: 30 day, Stop date: 11/02/19 17:00:00 LOCOMOTIVE SUPERVISOR Cogentin 2019-0 No Notes: Memoria 1-21 (Same [...] Weight 45.455, kg, Start date: 10/04/19 9:00:00 LOCOMOTIVE SUPERVISOR, Duration: 30 day, Stop date: 11/02/19 9:00:00 LOCOMOTIVE SUPERVISOR Sucralfate 2019-0 No 1 gm, 1 Isaak lauren 1-21 tab, l 15:00: Route: PO, [place] 00 Drug form: TAB, BID, Dosing Weight 45.455, kg, Start date: 10/04/19 9:00:00 LOCOMOTIVE SUPERVISOR, Duration: 30 day, Stop date: 11/02/19 17:00:00 LOCOMOTIVE SUPERVISOR Robitussin No Notes: Memor ia - (Same as: l 04:13: Robitussin Jasbir 00 ) Robitussin No Notes: Memor ia 10-04 (Same as: l 04:13: Robitussin [place] 00 ) Robitussin No Notes: Memor ia - (Same as: l 04:13: Robitussin [place] ) Guaifenesin 2019-0 No 10 ml, Isaak lauren 20 MG/ML / 10-04 Route: PO, l Phenylephri 03:58: Drug Form: Jasbir ne 00 LIQ, Hydrochlori Dosing de 1 MG/ML Weight Oral 45.455, Solution kg, Q6H, PRN Cough/Ricky estion, Start date: 10/03/19 21:58:00 LOCOMOTIVE SUPERVISOR, Duration: 30 day, Stop date: 11/02/19 21:57:00 LOCOMOTIVE SUPERVISOR Guaifenesin 0 No 10 ml, Isaak lauren 20 MG/ML / 10-04 Route: PO, l Phenylephri 03:58: Drug Form: [place] ne 00 LIQ, Hydrochlori Dosing de 1 MG/ML Weight Oral 45.455, Solution kg, Q6H, PRN Cough/Ricky estion, Start date: 10/03/19 21:58:00 LOCOMOTIVE SUPERVISOR, Duration: 30 day, Stop date: 11/02/19 21:57:00 LOCOMOTIVE SUPERVISOR Guaifenesin 2019-0 No 10 ml, Isaak lauren 20 MG/ML / 10-04 Route: PO, l Phenylephri 03:58: Drug Form: [place] ne 00 LIQ, Hydrochlori Dosing de 1 MG/ML Weight Oral 45.455, Solution kg, Q6H, PRN Cough/Ricky estion, Start date: 10/03/19 21:58:00 LOCOMOTIVE SUPERVISOR, Duration: 30 day, Stop date: 11/02/19 21:57:00 LOCOMOTIVE SUPERVISOR Habitrol 0 No Notes: Memoria 10-04 (Same as: l 03:31: Habitrol) "Remove old patch before applicatio n of new patch" WASTE: F/P - P Waste Black; E - P Waste Black Habitrol 0 No Notes: Memoria 1-21 (Same as: l 03:31: Habitrol) "Remove old patch before applicatio n of new patch" WASTE: F/P - P Waste Black; E - P Waste Black Habitrol 0 No Notes: Memoria 1-21 (Same as: l 03:31: Habitrol) "Remove old patch before applicatio n of new patch" WASTE: F/P - P Waste Black; E - P Waste Black Trileptal 0 No Notes: Do Mem oria 1- not crush l 03:27: or chew. (Same as: Trileptal) Trileptal 0 No Notes: Do Mem oria 1-21 not crush l 03:27: or chew. (Same as: Trileptal) Trileptal 0 No Notes: Do Mem oria -21 not crush l 03:27: or chew. (Same as: Trileptal) Seroquel 2019-0 No Notes: Memoria 1-21 (Same as: l 03:00: SEROquel) Seroquel 2019-0 No Notes: Memoria 1-21 (Same as: l 03:00: SEROquel) Seroquel 2019-0 No Notes: Memoria 1-21 (Same as: [...] l Oral Tablet 02:59: BID, # 120 [place] [Trileptal] 00 tab, 0 Refill(s) lidocaine 2019-0 [...] 2019-0 No PO, BID, 0 Isaak lauren 21 Refill(s) l 02:59: clopidogrel 2019-0 Yes 75 mg = 1 M emoria 75 mg oral -21 tab, PO, l tablet 02:59: Daily, # [place] 00 30 tab, 0 Refill(s) Cogentin 2019-0 Yes 0.5 mg, Memori a 1-21 PO, TID, 0 l 02:59: Refill(s) Jasbir 00 Prinivil 2019-0 Yes 2.5 mg, Memori a 1-21 PO, Daily, l 02:59: 0 [place] 00 Refill(s) varenicline 2019-0 Yes 0.5 mg = 1 Memoria 0.5 MG Oral -21 tab, PO, l Tablet 02:59: Bedtime, # Estelle nn [Chantix] 00 30 tab, 0 Refill(s) oxcarbazepi 2019-0 Yes 150 mg = 1 Memoria ne 150 MG -21 tab, PO, l Oral Tablet 02:59: BID, # 120 [place] [Trileptal] 00 tab, 0 Refill(s) lidocaine 2019-0 Yes TOP, TID, Mem oria 5% 3.5 gm 10-04 0 l top OIN 02:59: Refill(s) Estelle nn 00 Simvastatin 0 Yes 40 mg = 1 M emoria 40 MG Oral - tab, PO, l Tablet 02:59: Bedtime, # Estelle nn [Zocor] 00 90 tab, 1 Refill(s) Escitalopra Yes 20 mg = 1 M emoria m 20 MG - tab, PO, l Oral Tablet 02:59: Daily, # He rmann [Lexapro] 00 30 tab, 0 Refill(s) Klonopin 0 No 0.25 mg, Memor ia -21 PO, BID, 0 l 02:59: Refill(s) [place] 00 quetiapine Yes 100 mg = 1 M emoria [...] 10-04 Refill(s) l 02:59: Jasbir 00 clopidogrel 2019-0 Yes 75 mg = 1 M emoria 75 mg oral -21 tab, PO, l tablet 02:59: Daily, # Jasbir 00 30 tab, 0 Refill(s) Cogentin 2019-0 Yes 0.5 mg, Memori a -21 PO, TID, 0 l 02:59: Refill(s) Jasbir 00 Prinivil 2019-0 Yes 2.5 mg, Memori a -21 PO, Daily, l 02:59: 0 Refill(s) varenicline 0 Yes 0.5 mg = 1 Memoria 0.5 MG Oral -21 tab, PO, l Tablet 02:59: Bedtime, # Estelle nn [Chantix] 00 30 tab, 0 Refill(s) oxcarbazepi 0 Yes 150 mg = 1 Memoria ne 150 MG - tab, PO, l Oral Tablet 02:59: BID, # 120 [place] [Trileptal] 00 tab, 0 Refill(s) lidocaine 0 Yes TOP, TID, Mem oria 5% 3.5 gm 10-04 0 l top OIN 02:59: Refill(s) Estelle horowitz Simvastatin 0 Yes 40 mg = 1 M emoria 40 MG Oral -21 tab, PO, l Tablet 02:59: Bedtime, # Estelle horowitz [Zocor] 00 90 tab, 1 Refill(s) Escitalopra Yes 20 mg = 1 M emoria m 20 MG -21 tab, PO, l Oral Tablet 02:59: Daily, # Matteo jerri [Lexapro] 00 30 tab, 0 Refill(s) [...] tab, PO, l tablet 02:59: Daily, # [place] 00 30 tab, 0 Refill(s) Lovenox 2019-0 No Notes: Memoria 1-21 (Same as: l 00:15: Lovenox) Dextrose 2019-0 No 12.5 gm, Memor ia 50% Syringe - 25 mL, l (D50W) 00:15: Route: [place] IVP, Drug Form: INJ, Dosing Weight 45.455, kg, PRN, PRN Blood Glucose Results, Start date: 10/03/19 18:15:00 LOCOMOTIVE SUPERVISOR, Duration: 30 day, Stop date: 11/02/19 18:14:00 LOCOMOTIVE SUPERVISOR, 0 Glucagon 2019-0 No 1 mg, Memoria 10-04 Route: IM, l 00:15: Drug form: Jasbir PDR/INJ, PRN, Dosing Weight 45.455, kg, PRN Blood Glucose Results, Start date: 10/03/19 18:15:00 LOCOMOTIVE SUPERVISOR, Duration: 30 day, Stop date: 11/02/19 18:14:00 LOCOMOTIVE SUPERVISOR, 0 Insulin 2019-0 No Notes: [facility] [...] [facility] 1-21 (Same as: l 00:15: Lovenox) Dextrose 2019-0 No 12.5 gm, [facility] 50% Syringe -21 25 mL, l (D50W) 00:15: Route: [place] IV[facility], Drug Form: INJ, Dosing Weight 45.455, kg, PRN, PRN Blood Glucose Results, Start date: 10/03/19 18:15:00 LOCOMOTIVE SUPERVISOR, Duration: 30 day, Stop date: 11/02/19 18:14:00 LOCOMOTIVE SUPERVISOR, 0 Glucagon 2020-0 No 1 mg, [facility] 1-21 Route: IM, l 00:15: Drug form: [place] 00 PDR/INJ, PRN, Dosing Weight 45.455, kg, PRN Blood Glucose Results, Start date: 10/03/19 18:15:00 LOCOMOTIVE SUPERVISOR, Duration: 30 day, Stop date: 11/02/19 18:14:00 LOCOMOTIVE SUPERVISOR, 0 Insulin 2020-0 No Notes: [facility] Lispro 1-21 (Same as: l 00:15: Humalog) Jasbir 00 [...] [facility] 1-21 (Same as: l 00:15: Lovenox) Dextrose 2020-0 No 12.5 gm, [facility] 50% Syringe -21 25 mL, l (D50W) 00:15: Route: [place] 00 IVP, Drug Form: INJ, Dosing Weight 45.455, kg, PRN, PRN Blood Glucose Results, Start date: 10/03/19 18:15:00 LOCOMOTIVE SUPERVISOR, Duration: 30 day, Stop date: 11/02/19 18:14:00 LOCOMOTIVE SUPERVISOR, 0 Glucagon 2020-0 No 1 mg, [facility] - Route: IM, l 00:15: Drug form: [place] 00 PDR/INJ, PRN, Dosing Weight 45.455, kg, PRN Blood Glucose Results, Start date: 10/03/19 18:15:00 LOCOMOTIVE SUPERVISOR, Duration: 30 day, Stop date: 11/02/19 18:14:00 LOCOMOTIVE SUPERVISOR, 0 Insulin 2020-0 No Notes: [facility] Lispro 1-21 (Same as: l 00:15: Humalog) [place] Roll in palms of hands gently; Do [...] Blood Glucose Results, Start date: 10/03/19 17:12:00 LOCOMOTIVE SUPERVISOR, Duration: 30 day, Stop date: 11/02/19 17:11:00 LOCOMOTIVE SUPERVISOR, 0 Glucagon No 1 mg, [facility] 10-03 Route: IM, l 23:12: Drug form: PDR/INJ, PRN, Dosing Weight 45.455, kg, PRN Blood Glucose Results, Start date: 10/03/19 17:12:00 LOCOMOTIVE SUPERVISOR, Duration: 30 day, Stop date: 11/02/19 17:11:00 LOCOMOTIVE SUPERVISOR, 0 Ondansetron 0 No Notes: Isaak lauren -20 (Same as: l 23:12: Zofran) MEDICATION WASTE Product Size: 4 mg Product Wasted: ___ mg Trazodone No Notes: [facility] a 1-20 (Same As: l 23:12: Desyrel) Acetaminoph 2019-0 No Notes: Do M emoria en -20 not exceed l 23:12: 4 gm/day. (Same as: Tylenol) Dextrose 2019-0 No 12.5 gm, [facility] 50% Syringe 1-20 25 mL, l (D50W) 23:12: Route: Jasbir 00 IVP, Drug Form: INJ, Dosing Weight 45.455, kg, PRN, PRN Blood Glucose Results, Start date: 10/03/19 17:12:00 LOCOMOTIVE SUPERVISOR, Duration: 30 day, Stop date: 11/02/19 17:11:00 LOCOMOTIVE SUPERVISOR, 0 Glucagon 2020-0 No 1 mg, Memoria -20 Route: IM, l 23:12: Drug form: [place] 00 PDR/INJ, PRN, Dosing Weight 45.455, kg, PRN Blood Glucose Results, Start date: 10/03/19 17:12:00 LOCOMOTIVE SUPERVISOR, Duration: 30 day, Stop date: 11/02/19 17:11:00 LOCOMOTIVE SUPERVISOR, 0 Ondansetron 2020-0 No Notes: Isaak lauren 1-20 (Same as: l 23:12: Zofran) [place] 00 MEDICATION WASTE Product Size: 4 mg Product Wasted: ___ mg Trazodone 2020-0 No Notes: Memori a 1-20 (Same As: l 23:12: Desyrel) Acetaminoph 2020-0 No Notes: Do M emoria en - not exceed l 23:12: 4 gm/day. [place] 00 (Same as: Tylenol) Dextrose 2020-0 No 12.5 gm, Memor ia 50% Syringe -20 25 mL, l (D50W) 23:12: Route: Jasbir 00 IVP, Drug Form: INJ, Dosing Weight 45.455, kg, PRN, PRN Blood Glucose Results, Start date: 10/03/19 17:12:00 LOCOMOTIVE SUPERVISOR, Duration: 30 day, Stop date: 11/02/19 17:11:00 LOCOMOTIVE SUPERVISOR, 0 Glucagon 2020-0 No 1 mg, Memoria -20 Route: IM, l 23:12: Drug form: [place] 00 PDR/INJ, PRN, Dosing Weight 45.455, kg, PRN Blood Glucose Results, Start date: 10/03/19 17:12:00 LOCOMOTIVE SUPERVISOR, Duration: 30 day, Stop date: 11/02/19 17:11:00 LOCOMOTIVE SUPERVISOR, 0 Ondansetron 2020-0 No Notes: Isaak lauren 1-20 (Same as: l 23:12: Zofran) Jasbir 00 MEDICATION WASTE Product Size: 4 mg Product Wasted: ___ mg Trazodone 2020-0 No Notes: Memori a 1-20 (Same As: l 23:12: Desyrel) Acetaminoph No Notes: Do M emoria en - not exceed l 23:12: 4 gm/day. (Same as: Tylenol) D5LR 1,000 No 1,000 mL, Me moria mL 1-20 Rate: 75 l 23:11: ml/hr, Infuse over: 13.3 hr, Route: IV, Dosing Weight 45.455 kg, Total Volume: 1,000, Start date: 10/03/19 17:11:00 LOCOMOTIVE SUPERVISOR, Duration: 30 day, Stop date: 11/02/19 17:10:00 LOCOMOTIVE SUPERVISOR, 1.4, m2, 0 Promethazin 0 No Notes: Do M emoria e - not give l 23:11: IV push. (Same as: Phenergan) D5LR 1,000 No 1,000 mL, Me moria mL 20 Rate: 75 l 23:11: ml/hr, Infuse over: 13.3 hr, Route: IV, Dosing Weight 45.455 kg, Total Volume: 1,000, Start date: 10/03/19 17:11:00 LOCOMOTIVE SUPERVISOR, Duration: 30 day, Stop date: 11/02/19 17:10:00 LOCOMOTIVE SUPERVISOR, 1.4, m2, 0 Promethazin No Notes: Do M emoria e - not give l 23:11: IV push. (Same as: Phenergan) D5LR 1,000 No 1,000 mL, Me moria mL -20 Rate: 75 l 23:11: ml/hr, Infuse over: 13.3 hr, Route: IV, Dosing Weight 45.455 kg, Total Volume: 1,000, Start date: 10/03/19 17:11:00 LOCOMOTIVE SUPERVISOR, Duration: 30 day, Stop date: 11/02/19 17:10:00 LOCOMOTIVE SUPERVISOR, 1.4, m2, 0 Promethazin No Notes: Do M emoria e -20 not give l 23:11: IV push. (Same as: Phenergan) Ceftriaxone 0 No Notes: Isaak lauren 10-03 (Same As: l 22:28: Rocephin). Use with [...] Chloride 1-20 2,000 l 0.0014 19:59: ml/hr, [place] MEQ/ML / 00 Infuse Potassium Over: 0.5 Chloride hr, Route: 0.004 IV, 1,000, MEQ/ML / Drug form: Sodium INJ, ONCE, Chloride Priority: 0.103 STAT, MEQ/ML / Dosing Sodium Weight Lactate 45.455 kg, 0.028 Start MEQ/ML date: Injectable 10/03/19 Solution 13:59:00 LOCOMOTIVE SUPERVISOR, Stop date: 10/03/19 13:59:00 LOCOMOTIVE SUPERVISOR, 0 Ondansetron 0 No Notes: Isaak lauren 1-20 (Same as: l 19:59: Zofran) MEDICATION WASTE Product Size: 4 mg Product Wasted: ___ mg Saline 2019-0 No Notes: Memoria Flush 0.9% 1-20 Same as: l 19:59: BD [place] 00 Posiflush Sterile Calcium 2020-0 No 1,000 mL, Memor ia Chloride 1-20 2,000 l 0.0014 19:59: ml/hr, Jasbir MEQ/ML / 00 Infuse Potassium Over: 0.5 Chloride hr, Route: 0.004 IV, 1,000, MEQ/ML / Drug form: Sodium INJ, ONCE, Chloride Priority: 0.103 STAT, MEQ/ML / Dosing Sodium Weight Lactate 45.455 kg, 0.028 Start MEQ/ML date: Injectable 10/03/19 Solution 13:59:00 LOCOMOTIVE SUPERVISOR, Stop date: 10/03/19 13:59:00 LOCOMOTIVE SUPERVISOR, 0 Ondansetron No Notes: Isaak lauren 1-20 (Same as: l 19:59: Al) MEDICATION WASTE Product Size: 4 mg Product Wasted: ___ mg Saline No Notes: Memoria Flush 0.9% -20 Same as: l 19:59: BD Posiflush Sterile Calcium No 1,000 mL, Memor ia Chloride 20 2,000 l 0.0014 19:59: ml/hr, MEQ/ML / 00 Infuse Potassium Over: 0.5 Chloride hr, Route: 0.004 IV, 1,000, MEQ/ML / Drug form: Sodium INJ, ONCE, Chloride Priority: 0.103 STAT, MEQ/ML / Dosing Sodium Weight Lactate 45.455 kg, 0.028 Start MEQ/ML date: Injectable 10/03/19 Solution 13:59:00 LOCOMOTIVE SUPERVISOR, Stop date: 10/03/19 13:59:00 LOCOMOTIVE SUPERVISOR, 0 Ondansetron No Notes: Isaak lauren 10-03 (Same as: 19:59: Yingmandeep) MEDICATION WASTE Product Size: 4 mg Product [...] kg, Priority: STAT, Start date: 09/07/18 21:14:00 LOCOMOTIVE SUPERVISOR, Stop date: 09/07/18 21:14:00 LOCOMOTIVE SUPERVISOR Dexamethaso 2017- No 4 mg, 1 Mem oria ne 2-26 mL, Route: l 03:14: IM, Drug [place] 00 form: INJ, ONCE, Dosing Weight 45.455, kg, Priority: STAT, Start date: 09/07/18 21:14:00 LOCOMOTIVE SUPERVISOR, Stop date: 09/07/18 21:14:00 LOCOMOTIVE SUPERVISOR Dexamethaso 2017- No 4 mg, 1 Mem oria ne 2-26 mL, Route: l 03:14: IM, Drug Jasbir 00 form: INJ, ONCE, Dosing Weight 45.455, kg, Priority: STAT, Start date: 09/07/18 21:14:00 LOCOMOTIVE SUPERVISOR, Stop date: 09/07/18 21:14:00 LOCOMOTIVE SUPERVISOR Tramadol 2017- No 50 kg, Memori a 2-26 Priority: l 03:00: STAT, [place] 00 Start date: 09/07/18 21:00:00 LOCOMOTIVE SUPERVISOR, Stop date: 09/07/18 21:00:00 LOCOMOTIVE SUPERVISOR Tramadol 2017- No 50 kg, Memori a 2-26 Priority: l 03:00: STAT, [place] 00 Start date: 09/07/18 21:00:00 LOCOMOTIVE SUPERVISOR, Stop date: 09/07/18 21:00:00 LOCOMOTIVE SUPERVISOR Tramadol 2018-1 No 50 kg, Memori a 2-26 Priority: l 03:00: Jasbir ROBERT 00 Start date: 09/07/18 21:00:00 LOCOMOTIVE SUPERVISOR, Stop date: 09/07/18 21:00:00 LOCOMOTIVE SUPERVISOR glimepiride 2017-0 Yes 2mg QD Take 2 [...] [facility] l coated tablet clopidogrel 2017-0 Yes TK 1 T PO M ethodi (PLAVIX) 75 9-[address] mg tablet 00:00: [facility]ospita 00 l clopidogrel 2016-0 Yes TK 1 T PO M ethodi (PLAVIX) 75 9-[address] mg tablet 00:00: [facility]ospita 00 l clopidogrel 2016- Yes TK 1 T PO M ethodi (PLAVIX) 75 9-[address] mg tablet 00:00: [facility]ospita 00 l clopidogrel 2016- Yes TK 1 T PO M ethodi (PLAVIX) 75 9-[address] mg tablet 00:00: [facility]ospita 00 l clopidogrel Yes TK 1 T PO M ethodi (PLAVIX) 75 9-[address] mg tablet 00:00: [facility]ospita 00 l clopidogrel 2016- Yes TK 1 T PO M ethodi (PLAVIX) 75 9-[address] mg tablet 00:00: [facility]ospita 00 l lisinopril Yes TK 1 T PO Me thodi (PRINIVIL,Z 8-[address] ESTRIL) 2.5 00:00: Hospit a mg tablet 00 l SEPUMET Yes TK 1 T PO Metho di 50-500 mg 8-[address] per tablet 00:00: [facility]ospita 00 l lisinopril 0 Yes TK 1 T PO Me thodi (PRINIVIL,Z 8-[address] ESTRIL) 2.5 00:00: Hospit a mg tablet 00 l SEPUMET Yes TK 1 T PO Metho di 50-500 mg 8-[address] per tablet 00:00: [facility]ospita 00 l lisinopril 0 Yes TK 1 T PO Me thodi (PRINIVIL,Z 8-[address] ESTRIL) 2.5 00:00: Hospit a mg tablet 00 l SEPUMET Yes TK 1 T PO Metho di 50-500 mg 8-[address] per tablet 00:00: [facility]ospita 00 l lisinopril 0 Yes TK 1 T PO Me thodi [...] MG tablet 00:00: [facility]ospita 00 l Sodium 2016-0 No 500 mL, Memoria Chloride 3-29 500 ml/hr, l 0.154 09:23: Infuse Jasbir MEQ/ML 00 Over: 1 Injectable hr, Route: Solution IV, 500, Drug form: INJ, ONCE, Priority: STAT, Dosing Weight 59.091 kg, Start date: 12/10/16 4:23:00 CDT, Duration: 1 doses or times, Stop date: 12/10/16 4:23:00 CDT Sodium 2016-0 No 500 mL, Memoria Chloride 3-29 500 ml/hr, l 0.154 09:23: Infuse Jasbir MEQ/ML 00 Over: 1 Injectable hr, Route: Solution IV, 500, Drug form: INJ, ONCE, Priority: STAT, Dosing Weight 59.091 kg, Start date: 12/10/16 4:23:00 CDT, Duration: 1 doses or times, Stop date: 12/10/16 4:23:00 CDT Sodium 2017- No 500 mL, Memoria Chloride 3-29 500 ml/hr, l 0.154 09:23: Infuse Jasbir MEQ/ML 00 Over: 1 Injectable hr, Route: Solution IV, 500, Drug form: INJ, ONCE, Priority: STAT, Dosing Weight 59.091 kg, Start date: 12/10/16 4:23:00 CDT, Duration: 1 doses or times, Stop date: 12/10/16 4:23:00 CDT Saline No Notes: Memoria Flush 0.9% 3-29 Same as: l 07:02: BD [place] 00 Posiflush Sterile Saline No Notes: [facility] Flush 0.9% 3-29 Same as: l 07:02: BD [place] Posiflush Sterile Saline No Notes: [facility] Flush 0.9% 3-29 Same as: l 07:02: BD [place] Posiflush Sterile Ondansetron Yes Special Mem oria [...] under tongue Ondansetron No Notes: Isaak lauren 9-26 (Same as: l 10:13: Zofran) MEDICATION WASTE Product Size: 4 mg Product Wasted: ___ mg Ativan No Notes: Memoria 9-26 (Same as: l 10:13: Ativan) Jasbir 00 Ondansetron No Notes: Isaak lauren 9-26 (Same as: l 10:13: Zofran) Jasbir 00 MEDICATION WASTE Product Size: 4 mg Product Wasted: ___ mg Ativan No Notes: Memoria 06-09 (Same as: l 10:13: Ativan) Ondansetron No Notes: Isaak lauren 06-09 (Same as: l 10:13: Zofran) Jasbir 00 MEDICATION WASTE Product Size: 4 mg Product Wasted: ___ mg Ativan No Notes: Memoria 06-09 (Same as: l 10:13: Ativan) Sodium No 1,000 mL, Memori a Chloride 7-24 1,000 l 0.154 04:34: ml/hr, Jasbir MEQ/ML 00 Infuse Injectable Over: 1 Solution hr, Route: IV, ONCE, Priority: STAT, Dosing Weight 59.091 kg, Start date: 04/05/15 23:34:00, Duration: 1 doses or times, Stop date: 04/05/15 23:34:00 Sodium No 1,000 mL, Memori a Chloride 7-24 1,000 l 0.154 04:34: ml/hr, [place] MEQ/ML 00 Infuse Injectable Over: 1 Solution hr, Route: IV, ONCE, Priority: STAT, Dosing Weight 59.091 kg, Start date: 04/05/15 23:34:00, Duration: 1 doses or times, Stop date: 04/05/15 23:34:00 Sodium No 1,000 mL, Memori a Chloride 7-24 1,000 l 0.154 04:34: ml/hr, [place] MEQ/ML 00 Infuse Injectable Over: 1 Solution hr, Route: IV, ONCE, Priority: STAT, Dosing Weight 59.091 kg, Start date: 04/05/15 23:34:00, Duration: 1 doses or times, Stop date: 04/05/15 23:34:00 Saline No Notes: Memoria Flush 0.9% 7-24 Same as: l 02:36: BD Posiflush Sterile Saline No Notes: Memoria Flush 0.9% 7-24 Same as: l 02:36: BD [place] 00 Posiflush Sterile Saline No Notes: Memoria Flush 0.9% 04-06 Same as: l 02:36: BD Jasbir 00 Posiflush Sterile Levaquin No Notes: Do Isaak lauren 04-16 not give l 17:00: w/antacids [place] 00 , dairy pdt & minerals Take 1 hr before or 2 hr after dairy products Levaquin No Notes: Do Isaak lauren 04-16 not give l 17:00: w/antacids [place] 00 , dairy pdt & minerals Take [...] 3 mL, NEB, l Inhalant 16:40: Q6H, [place] Solution 00 Dyspnea, # 120 ea, 0 Refill(s) tiotropium Yes 18 Memoria 0.018 04-15 microgram l MG/ACTUAT 16:40: = 1 ea, [place] nn Inhalant 00 INHALATION Powder , RDaily, [Spiriva] # 30 ea, 0 Refill(s) levofloxaci Yes 750 mg = 1 Memoria n 750 mg 04-15 tab, PO, l oral tablet 16:40: [id number], # Jasbir 00 7 tab, 0 Refill(s) [...] 8-02 tab, PO, l oral tablet 16:40: [id number], # [place] 00 7 tab, 0 Refill(s) glimepiride Yes [...] 3 mL, NEB, l Inhalant 16:40: Q6H, [place] Solution 00 Dyspnea, # 120 ea, 0 Refill(s) tiotropium Yes 18 Memoria 0.018 04-15 microgram l MG/ACTUAT 16:40: = 1 ea, [place] nn Inhalant 00 INHALATION Powder , RDaily, [Spiriva] # 30 ea, 0 Refill(s) levofloxaci Yes 750 mg = 1 Memoria n 750 mg 04-15 tab, PO, l oral tablet 16:40: [id number], # [place] 00 7 tab, 0 Refill(s) glimepiride Yes 4 mg = 1 Me moria 4 mg oral 04-15 tab, PO, l tablet 16:40: BID, # 60 Chris n 00 tab, 0 Refill(s) 120 ACTUAT Yes 2 puff, Isaak lauren Budesonide 04-15 INHALATION l 0.16 16:40: , RBID, # [place] MG/ACTUAT / 00 1 ea, 0 formoterol Refill(s) fumarate 0.0045 MG/ACTUAT Metered Dose Inhaler [Symbicort] lisinopril Yes 10 mg = 1 Me moria 10 mg oral 04-15 tab, PO, l tablet 16:40: Daily, # [place] 00 30 tab, 0 Refill(s) Clonidine No Notes: Memori a 04-15 (Same As: l 12:50: Catapres) Jasbir 00 Clonidine No Notes: Memori a 04-15 (Same As: l 12:50: Catapres) [place] 00 Clonidine No Notes: Memori a 04-15 [...] ia 8 Take with l 18:05: food. [place] 00 Prednisone No Notes: Memor ia 8- Take with l 18:05: food. Jasbir 00 Levaquin No Notes: Memoria 8- (Same l 17:00: as:Levaqui [place] 00 n) Levaquin No Notes: Memoria 8- (Same l 17:00: as:Levaqui [place] 00 n) Levaquin No Notes: Memoria 04-14 (Same l 17:00: as:Levaqui Jasbir 00 n) potassium No Notes: Memori a phosphate-s 04-14 Non-Fomrul l odium 12:03: [facility]. [place] phosphate 00 (Same as: 250 mg-45 K-Phos) mg-298 mg oral tablet potassium No Notes: Memori a phosphate-s 8-01 Non-Fomrul l odium 12:03: [facility]. [place] phosphate 00 (Same as: 250 mg-45 K-Phos) mg-298 mg oral tablet potassium No Notes: Memori a phosphate-s 8- Non-Fomrul l odium 12:03: [facility]. [place] phosphate 00 (Same as: 250 mg-45 K-Phos) [...] lauren 8- (Same as: l 02:00: Pravachol) [place] 00 Pramipexole No Notes: Isaak lauren 8- (Same as: l 02:00: Mirapex) Jasbir 00 Methylpredn No Notes: Isaak lauren isolone 8- (Same l 02:00: as:Solu-ME Jasbir 00 DROL, A-Methapre d) Pravastatin No Notes: Isaak lauren 8- (Same as: l 02:00: Pravachol) [place] 00 Pramipexole No Notes: Isaak lauren 8- (Same as: l 02:00: Mirapex) Jasbir 00 Alprazolam No Notes: Memor ia 1 MG Oral 7-31 With food l Tablet 22:00: or milk [place] [Xanax] 00 (Same as: Xanax) Alprazolam No Notes: Memor ia 1 MG Oral 7-31 With food l Tablet 22:00: or milk Jasbir [Xanax] 00 (Same as: Xanax) Alprazolam No Notes: Memor ia 1 MG Oral 7-31 With food l Tablet 22:00: or milk [place] [Xanax] 00 (Same as: Xanax) Buspirone No Notes: Memori a 7-31 (Same As: l 18:00: BuSpar) [place] Buspirone No Notes: Memori a 7-31 (Same As: l 18:00: BuSpar) Jasbir Buspirone No Notes: Memori a 7-31 (Same As: l 18:00: BuSpar) [place] Lisinopril No Notes: Memor ia 7-31 (Same as: l 17:30: Prinivil, [place] 00 Zestril) Lisinopril No Notes: Memor ia 7-31 (Same as: l 17:30: Prinivil, Jasbir 00 Zestril) Lisinopril No Notes: Memor ia 7-31 (Same as: l 17:30: Prinivil, Jasbir 00 Zestril) Metformin No Notes: Memori a 7-31 (Same as: l 17:00: Glucophage [place] 00 ) Take with meal Sepuvia No Notes: Memoria 7-31 (Same as: l 17:00: Januvia) [place] Sucralfate No Notes: January M emoria 7-31 interfere l 17:00: w/enteral [place] 00 feeds - Take 1 hr before or 2 hr after antacids, dairy pdt, meals & minerals - On empty stomach. (Same As: Carafate) Metformin No Notes: Memori a 7-31 (Same as: l 17:00: Glucophage [place] 00 ) Take with meal Januvia No Notes: Memoria 7-31 (Same as: l 17:00: Januvia) Jasbir Sucralfate No Notes: January M emoria 7-31 interfere l 17:00: w/enteral [place] 00 feeds - Take 1 hr before or 2 hr after antacids, dairy pdt, meals & minerals - On empty stomach. (Same As: Carafate) Metformin No Notes: Memori a 04-13 (Same as: l 17:00: Glucophage ) Take with meal Januvia No Notes: Memoria 04-13 (Same as: l 17:00: Januvia) Sucralfate No Notes: January emoria 04-13 interfere l 17:00: w/enteral feeds - Take 1 hr before or 2 hr after antacids, dairy pdt, meals & minerals - On empty stomach. (Same As: Carafate) Hydroxyzine No Notes: Isaak lauren Hydrochlori 04-13 (Same as: l de 25 MG 16:37: Atarax) Chris n Oral Tablet 00 Avoid alcohol. Hydroxyzine No Notes: Isaak lauren Hydrochlori 04-13 (Same as: l de 25 MG 16:37: Atarax) Chris n Oral Tablet 00 Avoid alcohol. Hydroxyzine No Notes: Isaak lauren Hydrochlori 04-13 (Same as: l de 25 MG 16:37: Atarax) Chris n Oral Tablet 00 Avoid alcohol. Nicoderm No Notes: Memoria C-Q 04-13 (Same as: l 14:00: Habitrol) "Remove old patch before applicatio n of new patch" Lexapro No Notes: Memoria 04-13 (Same as: l 14:00: Lexapro) pneumococca No [...] Carbonate 14:00: or chew. Herm jose a 00 (Same As: Ecotrin) Prednisone No Notes: Memor ia 7-31 Take with l 14:00: food. Jasbir 00 Protonix No Notes: Memoria 7-31 Tablet l 12:30: should not Jasbir 00 be chewed or crushed. (Same as: Protonix) Protonix No Notes: Memoria 7-31 Tablet l 12:30: should not [place] 00 be chewed or crushed. (Same as: Protonix) Protonix No Notes: Memoria 7-31 Tablet l 12:30: should not [place] 00 be chewed or crushed. (Same as: Protonix) insulin No Notes: Memoria detemir 7-31 Same as l 02:00: Levemir Jasbir 00 "single patient use only" insulin No Notes: Memoria detemir 7-31 Same as l 02:00: Levemir [place] 00 "single patient use only" insulin No Notes: Memoria detemir 7-31 Same as l 02:00: Levemir [place] 00 "single patient use only" Albuterol No Notes: Memori a 0.833 MG/ML 7-31 (Same as: 01:00: Duoneb) [place] Ipratropium 00 Mcleod 0.167 MG/ML Inhalant Solution [DuoNeb] Albuterol No Notes: Memori a 0.833 MG/ML 7-31 (Same as: :00: Duoneb) [place] Ipratropium 00 Mcleod 0.167 MG/ML Inhalant Solution [DuoNeb] Albuterol No Notes: Memori a 0.833 MG/ML 7-31 (Same as: :00: Duoneb) [place] Ipratropium 00 Mcleod 0.167 MG/ML Inhalant Solution [DuoNeb] Brovana No Notes: SEE Isaak lauren 7-30 RT l 23:02: DOCUMENTAT [place] 00 ION Same as Brovana Brovana No Notes: SEE Isaak lauren 7-30 RT l 23:02: DOCUMENTAT Jasbir 00 ION Same as Britany Waltonvana No Notes: SEE Isaak lauren 7-30 RT l 23:02: DOCUMENTAT Jasbir 00 ION Same as Britany Gomezderm No Notes: Memoria C-Q 7-30 (Same as: l 23:00: Habitrol) [place] 00 "Remove old patch before applicatio n of new patch" Nicoderm No Notes: [facility] C-Q 7-30 (Same as: l 23:00: Habitrol) [place] 00 "Remove old patch before applicatio n [...] With food l Tablet 22:00: or milk [place] [Xanax] 00 (Same as: Xanax) Alprazolam No Notes: Memor ia 7-30 With food l 22:00: or milk Jasbir 00 (Same as: Xanax) Advair No Notes: Memoria Diskus 250 7-30 (Same as: l mcg-50 mcg 22:00: Advair) Herm jose a inhalation 00 powder Methylpredn No Notes: Isaak lauren isolone 7-30 (Same l 22:00: as:Solu-ME [place] 00 DROL, A-Methapre d) Alprazolam No Notes: Memor ia 1 MG Oral 7-30 With food l Tablet 22:00: or milk Jsabir [Xanax] 00 (Same as: Xanax) Alprazolam No [...] 7-30 (Same As: l 21:11: Pulmicort) Jasbir Budesonide No Notes: Memor ia 7-30 (Same As: l 21:11: Pulmicort) [place] 00 Budesonide No Notes: Memor ia 7-30 (Same As: l 21:11: Pulmicort) [place] 00 Ativan No Notes: Memoria 7-30 (Same as: l 21:08: Ativan) Jasbir 00 Ativan No Notes: Memoria 7-30 (Same as: l 21:08: Ativan) [place] Ativan No Notes: Memoria 7-30 (Same as: l 21:08: Ativan) Jasbir 00 Levaquin No Notes: [facility]oria 7-30 (Same l 21:00: as:Levaqui [place] 00 n) Levaquin No Notes: [facility]oria 7-30 (Same l 21:00: as:Levaqui [place] 00 n) Levaquin No Notes: [facility]oria 7-30 (Same l 21:00: as:Levaqui [place] 00 n) Albuterol No Notes: Memori a 0.833 MG/ML 7-30 (Same as: l / 20:00: Duoneb) [place] Ipratropium 00 Mcleod 0.167 MG/ML Inhalant Solution [DuoNeb] Albuterol No Notes: Memori a 0.833 MG/ML 7-30 (Same as: / 20:00: Duoneb) Ipratropium 00 Mcleod 0.167 MG/ML Inhalant Solution [DuoNeb] Albuterol No Notes: Memori a 0.833 MG/ML 7-30 (Same as: / 20:00: Duoneb) Ipratropium 00 Mcleod 0.167 MG/ML Inhalant Solution [DuoNeb] Hydroxyzine Yes [...] MG 19:52: sitagliptin 50 MG Oral Tablet [Sepumet ] Alprazolam Yes 1 mg, PO, Me [...] MG 19:52: sitagliptin 50 MG Oral Tablet [Sepumet ] Alprazolam Yes 1 mg, PO, Me [...] 7-30 tab, PO, l tablet 19:52: TID [place] predniSONE No See Memoria 10 mg oral 7-30 Special l tablet 19:52: Instructio [place] nn 00 ns, PO, Daily, # 12 tab busPIRone Yes 10 mg = 1 Mem oria 10 mg oral 7-30 tab, PO, l tablet 19:52: TID [place] 00 Levaquin No Notes: Memoria 7-30 (Same l 19:00: as:Levaqui [place] 00 n) Levaquin No Notes: Memoria 7-30 (Same l 19:00: as:Levaqui [place] 00 n) Levaquin No Notes: Memoria 7-30 (Same l 19:00: as:Levaqui Jasbir 00 n) Insulin, No Notes: Memoria [...] Roll in l Human 18:54: palms of [place] 00 hands gently; Do not shake vigorously . (Same as: NovoLOG) "single patient use only" Stable for 28 days at room temperatur e. Expires in days from ____Date Dextrose No 25 gm, 50 Isaak lauren 50% Syringe 7-30 mL, Route: l 18:54: IVP, Drug [place] 00 Form: INJ, Dosing Weight 72.727, kg, PRN, PRN Blood Glucose Results, Start date: 04/12/14 13:54:00, Duration: 30 day, Stop date: 05/12/14 13:53:00 Glucagon No 1 mg, Memoria 7-30 Route: IM, l 18:54: Drug form: [place] 00 PDR/INJ, PRN, Dosing Weight 72.727, kg, [...] 7-30 Route: IM, l 18:54: Drug form: [place] PDR/INJ, PRN, Dosing Weight 72.727, kg, PRN Blood Glucose Results, Start date: 04/12/14 13:54:00, Duration: 30 day, Stop date: 05/12/14 13:53:00 Acetaminoph No Notes: Isaak lauren en 325 MG / 7-30 (Same as: l Hydrocodone 18:50: [place] Estelle nn Bitartrate 00 325/5) Do 5 MG Oral not exceed Tablet 4gm/day of acetaminop hen. Acetaminoph No Notes: Do M emoria en 7-30 not exceed l 18:50: 4 gm/day. [place] 00 (Same as: Tylenol) Docusate No Notes: Memoria 7-30 (Same as: l 18:50: Colace) [place] 00 (Do Not Crush) Ondansetron No Notes: Isaak lauren 7-30 (Same as: l 18:50: Zofran) [place] 00 Acetaminoph No Notes: Isaak lauren en 325 MG / 7-30 (Same as: l Hydrocodone 18:50: [place] Estelle nn Bitartrate 00 325/5) Do 5 MG Oral not exceed Tablet 4gm/day of acetaminop hen. Acetaminoph No Notes: Do M emoria en 7-30 not exceed l 18:50: 4 gm/day. [place] 00 (Same as: Tylenol) Docusate No Notes: Memoria 7-30 (Same as: l 18:50: Colace) [place] 00 (Do Not Crush) Ondansetron No Notes: Isaak lauren 7-30 (Same as: l 18:50: Zofran) [place] 00 Acetaminoph No Notes: Isaak lauren en 325 MG / 7-30 (Same as: l Hydrocodone 18:50: [place] Estelle nn Bitartrate 00 325/5) Do 5 MG Oral not exceed Tablet 4gm/day of acetaminop hen. Acetaminoph No Notes: Do M emoria en 7-30 not exceed l 18:50: 4 gm/day. [place] (Same as: Tylenol) Docusate No Notes: Memoria 7-30 (Same as: l 18:50: Colace) [place] 00 (Do Not Crush) Ondansetron No Notes: Isaak lauren 7-30 (Same as: l 18:50: Zofran) Albuterol No Notes: Memori a 0.833 MG/ML 7-30 (Same as: l 17:43: Duoneb) Ipratropium 00 Mcleod 0.167 MG/ML Inhalant Solution [DuoNeb] Albuterol No Notes: Memori a 0.833 MG/ML 7-30 (Same as: l 17:43: Duoneb) [place] Ipratropium 00 M[place]od 0.167 MG/ML Inhalant Solution [DuoNeb] Albuterol No Notes: Memori a 0.833 MG/ML 7-30 (Same as: 17:43: Duoneb) Ipratropium 00 Mcleod 0.167 MG/ML Inhalant Solution [DuoNeb] Ondansetron No Notes: Isaak lauren 7-30 (Same as: l 16:06: Zofran) Ondansetron No Notes: Isaak lauren 7-30 (Same as: l 16:06: Zofran) Ondansetron No Notes: Isaak lauren 7-30 (Same as: l 16:06: Zofran) pramipexole Yes .125mg [id number] Take 0.[address] [facility] (MIRAPEX) 7-28 [id number] mg by Fariba es 0.125 MG 17:05: 3D mouth 3 Medica l tablet 25 (three) Center times daily. Pt was prescribed this medication and then stopped taking it suddenly 2 months ago. (Per family) pramipexole Yes .125mg Q.[id number] Take 0.[address] [facility] (MIRAPEX) 7-28 [id number] mg by Fariba es 0.125 MG 17:05: 3D mouth 3 Medica l tablet 25 (three) Center times daily. Pt was prescribed this medication and then stopped taking it suddenly 2 months ago. (Per family) pramipexole 2013-0 Yes .125mg Q.[id number] Take 0.[address] [facility] [address] (MIRAPEX) 7-28 [id number] mg by Fariba es 0.125 MG 17:05: 3D mouth 3 Medica l tablet 25 (three) Center times daily. Pt was prescribed this medication and then stopped taking it suddenly 2 months ago. (Per family) pramipexole 2013-0 Yes .125mg Q.[id number] Take 0.[address] [facility] [address] (MIRAPEX) 7-28 [id number] mg by Fariba es 0.125 MG 17:05: 3D mouth 3 Medica l tablet 25 (three) Center times daily. Pt was prescribed this medication and then stopped taking it suddenly 2 months ago. (Per family) pramipexole 2013-0 Yes .125mg Q.[id number] Take 0.[address] [facility] [address] (MIRAPEX) 7-28 [id number] mg by Fariba es 0.125 MG 17:05: 3D mouth 3 Medica l tablet 25 (three) Center times daily. Pt was prescribed this medication and then stopped taking it suddenly 2 months ago. (Per family) pramipexole 2013-0 Yes .125mg Q.[id number] Take 0.[address] [facility] [address] (MIRAPEX) 7-28 [id number] mg by Fariba es 0.125 MG 17:05: [...] 0-09 Jessica Route: l 17:41: IVP, Drug [place] 00 Form: INJ, Dosing Weight 67.727, kg, PRN, PRN Line Flush, Start date: 06/22/12 12:41:00, Duration: 24 hr, Stop date: 06/23/12 12:40:00 Prinivil 2011-0 No Spencer H 5 mg, 1 M emoria 06-12 [place] tab, l 14:00: Route: PO, Jasbir 00 Drug form: TAB, Daily, Start date: 06/12/12 9:00:00, Duration: 30 day, Stop date: 07/11/12 9:00:00 Prinivil 2011-0 No Spencer H 5 mg, 1 M emoria 06-12 [place] tab, l 14:00: Route: PO, [place] 00 Drug form: TAB, Daily, Start date: 06/12/12 9:00:00, Duration: 30 day, Stop date: 07/11/12 9:00:00 Prinivil 2011-0 No Spencer H 5 mg, 1 M emoria 06-12 [place] tab, l 14:00: Route: PO, [place] 00 Drug form: TAB, Daily, Start date: 06/12/12 9:00:00, Duration: 30 day, Stop date: 07/11/12 9:00:00 Protonix 2011-0 No Tatianna 40 mg, 1 Me moria 28 Iliskovic- tab, l 21:30: Deann Route: PO, Estelle nn 00 Drug form: ECTAB, Before Dinner, Start date: 06/11/12 16:30:00, Duration: 30 day, Stop date: 07/10/12 16:30:00 Protonix 2011-0 No Tatianna 40 mg, 1 Me moria -28 Iliskovic- tab, l 21:30: Deann Route: PO, Estelle nn 00 Drug form: ECTAB, Before Dinner, Start date: 06/11/12 16:30:00, Duration: 30 day, Stop date: 07/10/12 16:30:00 Protonix 2012-0 No Tatianna 40 mg, 1 Me moria -28 Iliskovic- tab, l 21:30: Deann Route: PO, Estelle nn 00 Drug form: ECTAB, Before Dinner, Start date: 06/11/12 16:30:00, Duration: 30 day, Stop date: 07/10/12 16:30:00 metoprolol 2011-0 No Spencer H 25 mg, 1 Memoria 06-11 [place] tab, l 19:00: Route: PO, [place] 00 Drug form: ERTAB, Daily, Start date: 06/11/12 14:00:00, Duration: 30 day, Stop date: 07/11/12 9:00:00 Prinivil 2012-0 No Spencer H 2.5 mg, M emoria 06-11 Trina 0.5 tab, l 19:00: Route: PO, Jasbir 00 Drug form: TAB, ONCE, Start date: 06/11/12 14:00:00, Stop date: 06/11/12 14:00:00 metoprolol 2012-0 No Spencer H 25 mg, 1 Memoria 06-11 [place] tab, l 19:00: Route: PO, [place] 00 Drug form: ERTAB, Daily, Start date: 06/11/12 14:00:00, Duration: 30 day, Stop date: 07/11/12 9:00:00 Prinivil 2012-0 No Spencer H 2.5 mg, M emoria 06-11 [place] 0.5 tab, l 19:00: Route: PO, Jasbir 00 Drug form: TAB, ONCE, Start date: 06/11/12 14:00:00, Stop date: 06/11/12 14:00:00 metoprolol 2011-0 No Spencer H 25 mg, 1 Memoria 06-11 [place] tab, l 19:00: Route: PO, [place] 00 Drug form: ERTAB, Daily, Start date: 06/11/12 14:00:00, Duration: 30 day, Stop date: 07/11/12 9:00:00 Prinivil 2011-0 No Spencer H 2.5 mg, M emoria 06-11 [place] 0.5 tab, l 19:00: Route: PO, [place] Drug form: TAB, ONCE, Start date: 06/11/12 14:00:00, Stop date: 06/11/12 14:00:00 Restoril 2012-0 No Spencer H 15 mg, 1 Memoria 06-11 [place] cap, l 05:05: Route: PO, Jasbir 00 Drug form: CAP, Bedtime, PRN Sleep, Start date: 06/11/12 0:05:00, Duration: 30 day, Stop date: 07/11/12 0:04:00 Restoril 2011-0 No Spencer H 15 mg, 1 Memoria 06-11 [place] cap, l 05:05: Route: PO, [place] 00 Drug form: CAP, Bedtime, PRN Sleep, Start date: 06/11/12 0:05:00, Duration: 30 day, Stop date: 07/11/12 0:04:00 Restoril 2011- No Spencer H 15 mg, 1 Memoria 06-11 [place] cap, l 05:05: Route: PO, [place] 00 Drug form: CAP, Bedtime, PRN Sleep, [...] Memoria 06-10 Mary tab, l 14:00: Route: NG [place] 00 Drug form: TAB, Daily, Start date: 06/10/12 9:00:00, Duration: 30 day, Stop date: 07/09/12 9:00:00 Prinivil 2011-0 No Spencer H 2.5 mg, M emoria 06-10 Trina 0.5 tab, l 14:00: Route: PO, [place] 00 Drug form: TAB, Daily, Start date: [...] Memoria 06-10 Mary tab, l 14:00: Route: [place] 00 Drug form: TAB, Daily, Start date: [...] 2011-0 No Gnananandh 100 mg, 1 Mem[facility] -27 Mary tab, l 14:00: Route: NG, Jasbir 00 Drug form: TAB, Daily, Start date: 06/10/12 9:00:00, Duration: 30 day, Stop date: 07/09/12 9:00:00 Prinivil 2011-0 No Spencer H 2.5 mg, M denaria 06-10 [place] 0.5 tab, l 14:00: Route: PO, Drug form: TAB, Daily, Start date: 06/10/12 9:00:00, Duration: 30 day, Stop date: 07/09/12 9:00:00 Paxil 2011-0 No Spencer H 45 mg, Memor ia -26 [place] 2.25 tab, l 23:00: Route: PO, [place] 00 Drug form: TAB, Daily, Start date: 06/09/12 18:00:00, Duration: 30 day, Stop date: 07/09/12 9:00:00 Paxil 2011-0 No Spencer H 45 mg, Memor ia -26 [place] 2.25 tab, l 23:00: Route: PO, Drug form: TAB, Daily, Start date: 06/09/12 18:00:00, Duration: 30 day, Stop date: 07/09/12 9:00:00 Paxil 2012-0 No Spencer H 45 mg, Memor ia -26 [place] 2.25 tab, l 23:00: Route: PO, Drug form: TAB, Daily, Start date: 06/09/12 18:00:00, Duration: 30 day, Stop date: 07/09/12 9:00:00 Glucophage 2011-0 No Spencer H 500 mg, 1 Memoria XR 9-26 [place] tab, l 22:00: Route: PO, Drug form: ERTAB, BID-Before Meals, Start date: 06/09/12 17:00:00, Duration: 30 day, Stop date: 07/09/12 16:30:00 Pravachol 2011-0 No Spencer H 25 mg, 2.5 Memoria -26 [place] tab, l 22:00: Route: PO, Drug form: TAB, QPM, Start date: 06/09/12 17:00:00, Duration: 30 day, Stop date: 07/08/12 17:00:00 cefazolin + 2011-0 No Spencer H 1 gm, Memoria Sodium -26 [place] Route: l Chloride 22:00: IVPB, [place] 0.9% IV 100 00 [id number], mL Start date: 06/09/12 17:00:00, Duration: 24 hr, Stop date: 06/10/12 9:00:00 chlordiazep 2011-0 No Spencer H 25 mg, 1 Memoria oxide 25 mg 9- [place] cap, l oral 22:00: Route: PO, [place] capsule 00 Drug form: CAP, TID, Start date: 06/09/12 17:00:00, Duration: 30 day, Stop date: 07/09/12 13:00:00 Glucophage 2011-0 No Spencer H 500 mg, 1 Memoria XR - [place] tab, l 22:00: Route: PO, [place] 00 Drug form: ERTAB, BID-Before Meals, Start date: 06/09/12 17:00:00, Duration: 30 day, Stop date: 07/09/12 16:30:00 Pravachol 2011-0 No Spencer H 25 mg, 2.5 Memoria -26 [place] tab, l 22:00: Route: PO, Jasbir 00 Drug form: TAB, QPM, Start date: 06/09/12 17:00:00, Duration: 30 day, Stop date: 07/08/12 17:00:00 cefazolin + 2011-0 No Spencer H 1 gm, Mem[facility] Sodium -26 [place] Route: l Chloride 22:00: IVPB, Jasbir 0.9% IV 100 00 [id number], mL Start date: 06/09/12 17:00:00, Duration: 24 hr, Stop date: 06/10/12 9:00:00 chlordiazep 2011-0 No Spencer H 25 mg, 1 Memoria oxide 25 mg 9-26 [place] cap, l oral 22:00: Route: PO, [place] capsule 00 Drug form: CAP, TID, Start date: 06/09/12 17:00:00, Duration: 30 day, Stop date: 07/09/12 13:00:00 Glucophage 2012-0 No Spencer H 500 mg, 1 Memoria XR - [place] tab, l 22:00: Route: PO, Jasbir 00 Drug form: ERTAB, BID-Before Meals, Start date: 06/09/12 17:00:00, Duration: 30 day, Stop date: 07/09/12 16:30:00 Pravachol 2012-0 No Spencer H 25 mg, 2.5 Memoria - [place] tab, l 22:00: Route: PO, [place] 00 Drug form: TAB, QPM, Start date: 06/09/12 17:00:00, Duration: 30 day, Stop date: 07/08/12 17:00:00 cefazolin + 2011-0 No Spencer H 1 gm, [facility]oria Sodium 06-09 [place] Route: l Chloride 22:00: IVPB, [place] 0.9% IV 100 00 [id number], mL Start date: 06/09/12 17:00:00, Duration: 24 hr, Stop date: 06/10/12 9:00:00 chlordiazep 2012-0 No Spencer H 25 mg, 1 Memoria oxide 25 mg - [place] cap, l oral 22:00: Route: PO, Jasbir capsule 00 Drug form: CAP, TID, Start date: 06/09/12 17:00:00, Duration: 30 day, Stop date: 07/09/12 13:00:00 Glucotrol 2011-0 No Spencer H 20 mg, 2 Memoria - [place] tab, l 21:30: Route: PO, Jasbir 00 Drug form: TAB, BID-Before Meals, Start date: 06/09/12 16:30:00, Duration: 30 day, Stop date: 07/09/12 7:30:00 Glucotrol 2011-0 No Spencer H 20 mg, 2 Memoria - [place] tab, l 21:30: Route: PO, [place] 00 Drug form: TAB, BID-Before Meals, Start date: 06/09/12 16:30:00, Duration: 30 day, Stop date: 07/09/12 7:30:00 Glucotrol 2012-0 No Spencer H 20 mg, 2 Memoria - [place] tab, l 21:30: Route: PO, [place] 00 Drug form: TAB, BID-Before Meals, Start date: 06/09/12 16:30:00, Duration: 30 day, Stop date: 07/09/12 7:30:00 acetaminoph No Spencer H 2 tab, Memoria en-hydrocod 06-09 [place] Route: PO, l one 325 17:09: Drug Form: Herm jose a mg-5 mg 00 TAB, Q4H, oral tablet PRN Pain, Start date: 06/09/12 12:09:00, Duration: 30 day, Stop date: 07/09/12 12:08:00 1/2NS + KCL No Spencer H 1,000 mL, Memoria 20mEq/L 06-09 [place] Rate: 60 l 1000ml 17:09: ml/hr, [place] (Premix) 00 Infuse 1,000 mL over: 16.7 [...] Spencer H 1,000 mL, Memoria 20mEq/L 06-09 [place] Rate: 60 l 1000ml 17:09: ml/hr, [place] (Premix) 00 Infuse 1,000 mL over: 16.7 hr, Route: IV, kg, Total Volume: 1,000, Start date: 06/09/12 12:09:00, Duration: 30 day, Stop date: 07/09/12 12:08:00 acetaminoph 0 No Spencer H 2 tab, Memoria en-hydrocod 06-09 [place] Route: PO, l one 325 17:09: Drug [...] H 1,000 mL, Memoria Ringers IV 06-09 [place] Rate: 100 l 1,000 mL 12:32: ml/hr, [...] H 1,000 mL, Memoria Ringers IV 06-09 [place] Rate: 100 l 1,000 mL 12:32: ml/hr, [place] 00 Infuse over: 10 hr, Route: IV, kg, Total Volume: 1,000, Start date: 06/09/12 7:32:00, Duration: 1 doses or times, Stop date: 06/09/12 17:31:00 Lactated 0 No Spencer H 1,000 mL, Memoria Ringers 06-07 [place] Rate: 100 l Injection 11:00: ml/hr, Chris n IV 1,000 mL 00 Infuse over: 10 hr, Route: IV, kg, Total Volume: 1,000, Start date: 06/07/12 6:00:00, Duration: 1 minutes, Stop date: 06/07/12 6:00:00 lidocaine 2011- No Spencer H 0.1 mL, Memoria 06-07 [place] Route: l 11:00: INJ, Drug form: INJ, ONCALL, Start date: 06/07/12 6:00:00, Duration: 1 minutes, Stop date: 06/07/12 6:00:00 cefazolin + 2011-0 No Spencer H 1 gm, [facility] Sodium 06-07 [place] Route: l Chloride 11:00: IVPB, Jasbir 0.9% IV 100 00 ONCALL, mL Start date: 06/07/12 6:00:00, Duration: 1 doses or times Lactated 2012-0 No Spencer H 1,000 mL, Memoria Ringers - [place] Rate: 100 l Injection 11:00: ml/hr, Chris n IV 1,000 mL 00 Infuse over: 10 hr, Route: IV, kg, Total Volume: 1,000, Start date: 06/07/12 6:00:00, Duration: 1 minutes, Stop date: 06/07/12 6:00:00 lidocaine 2011- No Spencer H 0.1 mL, Memoria 06-07 [place] Route: l 11:00: INJ, Drug [place] 00 form: INJ, ONCALL, Start date: 06/07/12 6:00:00, Duration: 1 minutes, Stop date: 06/07/12 6:00:00 cefazolin + 2011- No Spencer H 1 gm, Mem[facility] Sodium - [place] Route: l Chloride 11:00: IVPB, [place] 0.9% IV 100 00 ONCALL, mL Start date: 06/07/12 6:00:00, Duration: 1 doses or times Lactated No Spencer H 1,000 mL, Memoria Ringers - [place] Rate: 100 l Injection 11:00: ml/hr, Chris n IV 1,000 mL 00 Infuse over: 10 hr, Route: IV, kg, Total Volume: 1,000, Start date: 06/07/12 6:00:00, Duration: 1 minutes, Stop date: 06/07/12 6:00:00 lidocaine 2011-0 No Spencer H 0.1 mL, Memoria 06-07 [place] Route: l 11:00: INJ, Drug [place] 00 form: INJ, ONCALL, Start date: 06/07/12 6:00:00, Duration: 1 minutes, Stop date: 06/07/12 6:00:00 cefazolin + No Spencer H 1 gm, Mem[facility] Sodium - [place] Route: l Chloride 11:00: IVPB, [place] 0.9% IV 100 00 ONCALL, mL Start date: 06/07/12 6:00:00, Duration: 1 doses or times Vital Signs Vital Name Observation Time Observation Value Comments Source Body height 2023-01-15 16:14:00 [facility] Body weight 2023-01-15 16:14:00 45.36 kg [facility] BMI 2023-01-15 16:14:00 18.29 kg/m2 [facility] Temperature Oral (F) 2019-12-06 18:24:00 98.4 F [facility] [place] Heart Rate 2019-12-06 18:24:00 [facility] [place] Respitory Rate 2019-12-06 18:24:00 Memori al [place] Systolic (mm Hg) 2019-12-06 18:24:00 Isaak rial [place] Diastolic (mm Hg) 2019-12-06 18:24:00 Mem orial [place] Temperature Oral (F) 2019-12-06 13:38:00 98.2 F [facility] [place] Heart Rate 2019-12-06 13:38:00 [facility] [place] Respitory Rate 2019-12-06 13:38:00 [facility] al [place] Systolic (mm Hg) 2019-12-06 13:38:00 Isaak rial [place] Diastolic (mm Hg) 2019-12-06 13:38:00 Mem orial [place] Temperature Oral (F) 2019-12-06 09:53:00 98.5 F [facility] [place] Systolic (mm Hg) 2019-12-06 09:53:00 Isaak rial [place] Diastolic (mm Hg) 2019-12-06 09:53:00 Mem orial [place] Respitory Rate 2019-12-06 09:53:00 [facility] [place] Heart Rate 2019-12-06 09:53:00 [facility] [place] Height 2019-12-05 20:15:00 152.4 cm [facility] [place] Weight 2019-12-05 20:15:00 [facility] [place] BMI Calculated 2019-12-05 20:15:00 [facility] [place] Height 2019-12-05 15:20:00 172.72 cm [facility] [place] BMI Calculated 2019-12-05 15:20:00 [facility] [place] Weight 2019-12-05 15:20:00 [facility] [place] Respitory Rate 2019-11-19 04:24:00 [facility] [place] Systolic (mm Hg) 2019-11-19 04:24:00 Isaak rial [place] Diastolic (mm Hg) 2019-11-19 04:24:00 Mem o[facility] [place] Respitory Rate 2019-11-19 03:15:00 [facility] [place] Systolic (mm Hg) 2019-11-19 03:15:00 Isaak rial [place] Diastolic (mm Hg) 2019-11-19 03:15:00 Mem o[facility] [place] Respitory Rate 2019-11-19 02:18:00 [facility] [place] Systolic (mm Hg) 2019-11-19 02:18:00 Isaak rial [place] Diastolic (mm Hg) 2019-11-19 02:18:00 [facility] [place] BMI Calculated 2019-11-19 00:25:00 [facility] [place] Heart Rate 2019-11-18 23:55:00 [facility] [place] Temperature Oral (F) 2019-11-18 23:55:00 97.4 F [facility] [place] Height 2019-11-18 23:55:00 152.4 cm [facility] BMI Calculated 2019-11-18 23:55:00 [facility] [place] Weight 2019-11-18 23:55:00 [facility] [place] Temperature Oral (F) 2019-10-25 22:43:00 98.4 F [facility] [place] Heart Rate 2019-10-25 22:43:00 [facility] [place] Respitory Rate 2019-10-25 22:43:00 [facility] [place] Systolic (mm Hg) 2019-10-25 22:43:00 Isaak rial [place] Diastolic (mm Hg) 2019-10-25 22:43:00 Mem o[facility] [place] Temperature Oral (F) 2019-10-25 14:12:00 97.9 F [facility] [place] Heart Rate 2019-10-25 14:12:00 [facility] [place] Respitory Rate 2019-10-25 14:12:00 [facility] [place] Systolic (mm Hg) 2019-10-25 14:12:00 Isaak rial [place] Diastolic (mm Hg) 2019-10-25 14:12:00 Mem o[facility] [place] Temperature Oral (F) 2019-10-25 09:56:00 98.2 F [facility] [place] Heart Rate 2019-10-25 09:56:00 [facility] [place] Respitory Rate 2019-10-25 09:56:00 [facility] [place] Systolic (mm Hg) 2019-10-25 09:56:00 Isaak rial [place] Diastolic (mm Hg) 2019-10-25 09:56:00 Mem [facility] [place] Height 2019-10-21 06:11:00 152.4 cm [facility] [place] Weight 2019-10-21 06:11:00 [facility] [place] BMI Calculated 2019-10-21 06:11:00 [facility] [place] Height 2019-10-20 18:05:00 152.4 cm [facility] BMI Calculated 2019-10-20 18:05:00 [facility] [place] Weight 2019-10-20 18:05:00 [facility] [place] Temperature Oral (F) 2019-10-05 17:27:00 98.1 F [facility] [place] Heart Rate 2019-10-05 17:27:00 [facility] [place] Respitory Rate 2019-10-05 17:27:00 [facility] [place] Systolic (mm Hg) 2019-10-05 17:27:00 Isaak rial [place] Diastolic (mm Hg) 2019-10-05 17:27:00 Mem [facility] [place] Temperature Oral (F) 2019-10-05 13:12:00 97.9 F [facility] [place] Heart Rate 2019-10-05 13:12:00 [facility] [place] Respitory Rate 2019-10-05 13:12:00 [facility] al [place] Systolic (mm Hg) 2019-10-05 13:12:00 Isaak rial [place] Diastolic (mm Hg) 2019-10-05 13:12:00 [facility] [place] Temperature Oral (F) 2019-10-05 10:19:00 97.5 F [facility] [place] Heart Rate 2019-10-05 10:19:00 [facility] [place] Respitory Rate 2019-10-05 10:19:00 [facility] [place] Systolic (mm Hg) 2019-10-05 10:19:00 Isaak rial [place] Diastolic (mm Hg) 2019-10-05 10:19:00 Mem o[facility] [place] Height 2019-10-04 04:10:00 152.4 cm [facility] [place] Weight 2019-10-04 04:10:00 [facility] [place] BMI Calculated 2019-10-04 04:10:00 [facility] [place] Height 2019-10-03 19:36:00 152.4 cm [facility] BMI Calculated 2019-10-03 19:36:00 [facility] [place] Weight 2019-10-03 19:36:00 [facility] [place] Respitory Rate 2018-09-08 05:21:00 [facility] [place] Temperature Oral (F) 2018-09-08 05:21:00 98.0 F [facility] [place] Systolic (mm Hg) 2018-09-08 05:21:00 Isaak rial [place] Diastolic (mm Hg) 2018-09-08 05:21:00 [facility] [place] Heart Rate 2018-09-08 05:21:00 [facility] [place] BMI Calculated 2018-09-08 01:37:00 [facility] [place] Weight 2018-09-08 01:37:00 [facility] [place] Height 2018-09-08 01:37:00 152.4 cm [facility] Heart Rate 2018-09-08 01:37:00 [facility] [place] Systolic (mm Hg) 2018-09-08 01:37:00 Isaak rial [place] Diastolic (mm Hg) 2018-09-08 01:37:00 Mem [facility] [place] Temperature Oral (F) 2018-09-08 01:37:00 98.2 F [facility] [place] Respitory Rate 2018-09-08 01:37:00 [facility] [place] Systolic (mm Hg) 2018-05-31 20:22:00 Isaak rial [place] Diastolic (mm Hg) 2018-05-31 20:22:00 Mem [facility] [place] Respitory Rate 2018-05-31 20:22:00 [facility] [place] Systolic (mm Hg) 2018-05-31 19:33:00 Isaak rial [place] Diastolic (mm Hg) 2018-05-31 19:33:00 [facility] [place] Heart Rate 2018-05-31 19:33:00 [facility] [place] Respitory Rate 2018-05-31 19:33:00 [facility] [place] Respitory Rate 2018-05-31 19:02:00 [facility] [place] Heart Rate 2018-05-31 19:02:00 [facility] [place] Temperature Oral (F) 2018-05-31 19:02:00 98 F [facility] [place] Systolic (mm Hg) 2018-05-31 19:02:00 Isaak rial [place] Diastolic (mm Hg) 2018-05-31 19:02:00 [facility] [place] Heart Rate 2018-05-31 18:39:00 [facility] [place] Temperature Oral (F) 2018-05-31 18:39:00 98.1 F [facility] [place] Height 2018-05-31 18:39:00 152.4 cm [facility] [place] BMI Calculated 2018-05-31 18:39:00 [facility] [place] Weight 2018-05-31 18:39:00 [facility] [place] Temperature Oral (F) 2016-12-10 10:30:00 98.2 F [facility] [place] Respitory Rate 2016-12-10 10:00:00 [facility] [place] Systolic (mm Hg) 2016-12-10 10:00:00 Isaak rial [place] Diastolic (mm Hg) 2016-12-10 10:00:00 [facility] [place] Systolic (mm Hg) 2016-12-10 09:38:00 Isaak rial [place] Diastolic (mm Hg) 2016-12-10 09:38:00 Mem [facility] [place] Heart Rate 2016-12-10 09:38:00 [facility] [place] Respitory Rate 2016-12-10 09:38:00 [facility] [place] Respitory Rate 2016-12-10 08:30:00 [facility] [place] Systolic (mm Hg) 2016-12-10 08:30:00 Isaak rial [place] Diastolic (mm Hg) 2016-12-10 08:30:00 [facility] [place] Heart Rate 2016-12-10 07:36:00 [facility] [place] BMI Calculated 2016-12-10 06:38:00 [facility] [place] Weight 2016-12-10 06:38:00 [facility] [place] Height 2016-12-10 06:38:00 152.4 cm [facility] Temperature Oral (F) 2016-12-10 06:38:00 98.1 F [facility] [place] Heart Rate 2016-12-10 06:38:00 [facility] [place] Respitory Rate 2015-06-09 10:52:00 [facility] [place] Heart Rate 2015-06-09 10:52:00 [facility] [place] Systolic (mm Hg) 2015-06-09 10:52:00 Isaak rial [place] Diastolic (mm Hg) 2015-06-09 10:52:00 [facility] [place] Systolic (mm Hg) 2015-06-09 10:24:00 Isaak rial [place] Diastolic (mm Hg) 2015-06-09 10:24:00 [facility] [place] Heart Rate 2015-06-09 10:24:00 [facility] [place] Respitory Rate 2015-06-09 10:24:00 [facility] [place] BMI Calculated 2015-06-09 06:12:00 [facility] [place] Weight 2015-06-09 06:12:00 [facility] [place] Height 2015-06-09 06:12:00 152.4 cm [facility] [place] Systolic (mm Hg) 2015-06-09 06:12:00 Isaak rial [place] Diastolic (mm Hg) 2015-06-09 06:12:00 [facility] [place] Respitory Rate 2015-06-09 06:12:00 [facility] [place] Heart Rate 2015-06-09 06:12:00 [facility] [place] Temperature Oral (F) 2015-06-09 06:12:00 97.7 F [facility] Respitory Rate 2015-04-06 12:57:00 [facility] [place] Systolic (mm Hg) 2015-04-06 12:57:00 Isaak rial [place] Diastolic (mm Hg) 2015-04-06 12:57:00 [facility] [place] Systolic (mm Hg) 2015-04-06 11:00:00 Isaak rial [place] Diastolic (mm Hg) 2015-04-06 11:00:00 [facility] [place] Respitory Rate 2015-04-06 11:00:00 [facility] [place] Systolic (mm Hg) 2015-04-06 10:00:00 Isaak rial [place] Diastolic (mm Hg) 2015-04-06 10:00:00 [facility] [place] Respitory Rate 2015-04-06 10:00:00 [facility] [place] Temperature Oral (F) 2015-04-06 09:00:00 98 F [facility] Temperature Oral (F) 2015-04-06 04:00:00 98 F [facility] Weight 2015-04-06 02:08:00 [facility] [place] BMI Calculated 2015-04-06 02:08:00 [facility] [place] Heart Rate 2015-04-06 02:08:00 [facility] [place] Height 2015-04-06 02:08:00 154.94 cm [facility] [place] Diastolic (mm Hg) 2014-04-17 00:30:00 [facility] [place] Respitory Rate 2014-04-17 00:30:00 [facility] [place] Systolic (mm Hg) 2014-04-17 00:30:00 Isaak rial [place] Heart Rate 2014-04-17 00:30:00 [facility] Temperature Oral (F) 2014-04-17 00:30:00 98.4 F [facility] Respitory Rate 2014-04-16 21:00:00 [facility] [place] Diastolic (mm Hg) 2014-04-16 21:00:00 [facility] [place] Systolic (mm Hg) 2014-04-16 21:00:00 Isaak rial [place] Temperature Oral (F) 2014-04-16 21:00:00 98.0 F [facility] Heart Rate 2014-04-16 21:00:00 [facility] [place] Systolic (mm Hg) 2014-04-16 16:04:00 Isaak rial [place] Temperature Oral (F) 2014-04-16 16:04:00 98.0 F [facility] Heart Rate 2014-04-16 16:04:00 [facility] [place] Diastolic (mm Hg) 2014-04-16 16:04:00 [facility] [place] Respitory Rate 2014-04-16 13:00:00 [facility] [place] Weight 2014-04-12 19:42:00 [facility] BMI Calculated 2014-04-12 19:42:00 [facility] [place] Height 2014-04-12 19:42:00 152.4 cm [facility] Weight 2014-04-12 15:41:00 [facility] BMI Calculated 2014-04-12 15:41:00 [facility] [place] Height 2014-04-12 15:41:00 152.4 cm [facility] Weight 2012-06-22 17:39:00 [facility] Height 2012-06-22 17:39:00 152.40 cm [facility] Diastolic (mm Hg) 2012-06-11 19:41:00 [facility] Heart Rate 2012-06-11 19:41:00 [facility] Systolic (mm Hg) 2012-06-11 19:41:00 Isaak rial [place] Systolic (mm Hg) 2012-06-11 17:20:00 Isaak rial [place] Diastolic (mm Hg) 2012-06-11 17:20:00 [facility] [place] Temperature Oral (F) 2012-06-11 16:25:00 99.0 F [facility] Diastolic (mm Hg) 2012-06-11 16:25:00 [facility] [place] Systolic (mm Hg) 2012-06-11 16:25:00 Isaak rial [place] Heart Rate 2012-06-11 16:25:00 [facility] Respitory Rate 2012-06-11 16:25:00 [facility] [place] Temperature Oral (F) 2012-06-11 12:22:00 98.4 F [facility] Heart Rate 2012-06-11 12:22:00 [facility] Respitory Rate 2012-06-11 12:22:00 [facility] [place] Respitory Rate 2012-06-11 09:00:00 [facility] [place] Temperature Oral (F) 2012-06-11 09:00:00 98.2 F [facility] Weight 2012-05-31 18:54:00 [facility] Height 2012-05-31 18:54:00 152.40 cm [facility] Procedures Procedure Date / Time Performed Performing Clinician Sourc e Endarterectomy [facility] Plan of Care Planned Activity Planned Date Details Comments Source Future Scheduled 2023-06-26 COVID-19 VACCINE (#1) [facility] Test 17:11:02 [code = COVID-19 VACCINE (#1)] Future Scheduled 2023-06-26 SHINGLES VACCINES ([address] [facility] Test 17:11:02 of 2) [code = SHINGLES VACCINES (1 of 2)] Future Scheduled 2023-06-26 RSV VACCINES > 60 YR [facility] Test 17:11:02 (1 - 1-dose 60+ series) [code = RSV VACCINES > 60 YR (1 - 1-dose 60+ series)] Future Scheduled 2023-06-26 65+ [facility] VACCINE (1 - PCV) [code = 65+ PNEUMOCOCCAL VACCINE (1 - PCV)] Future Scheduled 2023-06-26 INFLUENZA VACCINE (#1) [facility] Test 17:11:02 [code = INFLUENZA VACCINE (#1)] Future Scheduled 2023-02-12 COVID-19 VACCINE (#1) [facility] Test 13:58:22 [code = COVID-19 VACCINE (#1)] Future Scheduled 2023-02-12 COLONOSCOPY SCREENING [facility] Test 13:58:22 [code = COLONOSCOPY SCREENING] Future Scheduled 2023-02-12 SHINGLES VACCINES ([address] [facility] Test 13:58:22 of 2) [code = SHINGLES VACCINES (1 of 2)] Future Scheduled 2023-02-12 65+ [facility] 13:58:22 VACCINE (1 - PCV) [code = 65+ PNEUMOCOCCAL VACCINE (1 - PCV)] Future Scheduled 2023-02-12 [facility] 13:58:22 [code = INFLUENZA VACCINE] Future Scheduled 2022-12-16 COVID-19 [facility]ACCINE (#[facility] 14:23:32 [code = COVID-19 VACCINE (#1)] Future Scheduled 2022-12-16 [facility] 14:23:32 [code = COLONOSCOPY SCREENING] Future Scheduled 2022-12-16 SHINGLES VACCINES (1 Met [facility] Test 14:23:32 of 2) [code = SHINGLES VACCINES (1 of 2)] Future Scheduled 2022-12-16 65+ [facility] 14:23:32 VACCINE (1 - PCV) [code = 65+ PNEUMOCOCCAL VACCINE (1 - PCV)] Future Scheduled 2022-12-16 [facility]ACCINE [facility] 14:23:32 [code = INFLUENZA VACCINE] Future Scheduled 2022-12-16 COVID-19 VACCINE (#1) [facility] 14:23:32 [code = COVID-19 VACCINE (#1)] Future Scheduled 2022-12-16 COLONOSCOPY SCREENING [facility] Test 14:23:32 [code = COLONOSCOPY SCREENING] Future Scheduled 2022-12-16 SHINGLES VACCINES (1 Met [facility] Test 14:23:32 of 2) [code = SHINGLES VACCINES (1 of 2)] Future Scheduled 2022-12-16 65+ PNEUMOCOCCAL [facility] Test 14:23:32 VACCINE (1 - PCV) [code = 65+ PNEUMOCOCCAL VACCINE (1 - PCV)] Future Scheduled 2022-12-16 [facility]FLUENZA VACCINE [facility] 14:23:32 [code = INFLUENZA VACCINE] Future Scheduled 2022-08-30 COVID-19 VACCINE (#1) [facility] Test 06:08:20 [code = COVID-19 VACCINE (#1)] Future Scheduled 2022-08-30 COLONOSCOPY SCREENING [facility] Test 06:08:20 [code = COLONOSCOPY SCREENING] Future Scheduled 2022-08-30 SHINGLES VACCINES ([address] [facility] Test 06:08:20 of 2) [code = SHINGLES VACCINES (1 of 2)] Future Scheduled 2022-08-30 65+ PNEUMOCOCCAL [facility] Test 06:08:20 VACCINE (1 - PCV) [code = 65+ PNEUMOCOCCAL VACCINE (1 - PCV)] Future Scheduled 2022-08-30 INFLUENZA VACCINE [facility] Test 06:08:20 [code = INFLUENZA VACCINE] Future Scheduled 2022-07-19 HEPATITIS B VACCINES Met [facility] Test 19:16:01 (1 of 3 - 3-dose series) [code = HEPATITIS B VACCINES (1 of 3 - 3-dose series)] Future Scheduled 2022-07-19 COVID-19 VACCINE (#1) [facility] Test 19:16:01 [code = COVID-19 VACCINE (#1)] Future Scheduled 2022-07-19 COLONOSCOPY SCREENING [facility] Test 19:16:01 [code = COLONOSCOPY SCREENING] Future Scheduled 2022-07-19 SHINGLES VACCINES ([address] [facility] Test 19:16:01 of 2) [code = SHINGLES VACCINES (1 of 2)] Future Scheduled 2022-07-19 65+ PNEUMOCOCCAL [facility] Test 19:16:01 VACCINE (1 - PCV) [code = 65+ PNEUMOCOCCAL VACCINE (1 - PCV)] Future Scheduled 2022-07-19 INFLUENZA VACCINE [facility] Test 19:16:01 [code = INFLUENZA VACCINE] Encounters Start End Encounter Admission Attending Care Care Encounter Source Date/Time Date/Time Type Type Clinicians Facility Department ID 2023-01-15 Outpatient [facility] [id number] [place] 11:06:39 [id number] [facility] 2023-01-06 Outpatient [facility] [id number] [place] 14:54:03 [id number] [facility] 2023-01-15 2023-01-15 Office Helena, LINDA 6414 [id number] [place] 11:00:00 11:46:05 Visit Cassy KAMARA [id number] [facility] [id number] 2023-01-15 2023-01-15 Outpatient [facility] [id number] [place] 11:00:00 11:46:05 Health 2022-12-17 2022-12-27 Inpatient E LISSPATRICIA, [facility] [id number] [facility] 02:57:00 20:30:00 JUANITO 2022-12-17 2022-12-17 Outpatient SANJANA [facility] [id number] [place] 09:00:00 09:00:00 DALTON Healcielo shira 2022-08-14 2022-08-18 Inpatient EM Soham, [facility] [id number] [facility] 19:48:00 16:59:00 Jane 11 [place] [facility] 2022-03-25 2022-03-25 Emergency EM Cm, HC[facility] [id number] [facility] 16:56:00 20:49:00 Dalton 03 Paulat [facility] 2022-03-25 2022-03-25 Emergency EM Cm, HCANW [facility] [id number] [facility] 16:56:00 20:49:00 Dalton [id number] Paulat [facility] are [facility] 2019-12-05 2019-12-06 [facility] [id number] [facility] 15:17:39 20:00:00 pj Martell [address] 2019-12-05 2019-12-06 Inpatient E AMENA, TW MED [id number] M[facility]W 13:24:00 15:00:00 KEYLA GR 2019-11-18 2019-11-19 [facility] [id number] Memoria 23:53:49 05:18:00 pj Martell The [address] [place] [address] 2019-11-18 2019-11-18 Emergency E ABHINAV TW MHTW [id number] MHTW 17:53:00 23:18:00 FCO 2019-10-20 2019-10-26 [facility] [id number] Memoria 18:04:11 02:32:00 pj Martell The [address] [place] [address] 2019-10-21 2019-10-20 Inpatient E MHTW MED [id number] MHTW 14:53:00 19:36:00 2019-10-03 2019-10-05 [facility] [id number] [facility] 19:36:06 23:00:00 pj Martell The 09 [facility] 2019-10-03 2019-10-03 Inpatient E MHTW MED [id number] M[facility]W 16:40:00 13:36:00 2018-09-08 2018-09-08 [facility] [id number] Memoria 01:21:00 05:22:00 pj Martell [address] [place] [address] 2018-09-07 2018-09-07 Emergency E MHSE MHSE [id number] 19:21:00 19:21:00 [facility] 2018-05-31 2018-05-31 [facility] [id number] Memoria 18:38:00 20:52:00 pj Martell The 07 [facility] 2016-12-10 2016-12-10 [facility] [id number] Memoria 06:34:00 10:45:00 pj Martell The 06 [facility] 2015-06-09 2015-06-09 EC [facility] [id number] [facility] 06:10:00 10:57:00 Emergency r Jasbir The 05 [facility] 2015-04-06 2015-04-06 EC [facility] [id number] [facility]oria 02:07:00 13:50:00 Emergency r Jasbir The 04 [facility] 2014-04-12 2014-04-17 Inpatient [facility] [id number] Memoria 15:37:00 01:00:00 pj Avila [facility] 2012-06-22 2012-06-22 Emergency nullFlavo MH The [id number] Memoria 12:37:00 15:22:00 pj Kramer 02 [place] 2012-06-09 2012-06-11 Inpatient nullFlavo Not Sent [id number] Memoria 11:40:00 16:30:00 r Sony Martell 2012-05-25 2012-05-25 OD MHIE IE [id number] Memoria 09:09:00 09:09:00 00 darlene Martell Results Test Description Test Time Test Comments Results Result Comments Source GLUBED 2022-08-18 12:29:00 Test Item Value Reference Range Interpretation Comme nts GLUBED (test code = GLUBED) 165 MG/DL 70-105 H COMPREHENSIVE METABOLIC [id number] 08:25:00 Test Item Value Reference Range Interpretation [...] PHOSPHATASE (test code = ALKP) CBC W/AUTO [id number] 08:06:00 Test Item Value Reference Range Interpretation [...] = BA#) 0.0 x10 3/uL 0.0-0.1 N [id number] 06:04:00 Test Item Value Reference Range Interpretation Comments GLUBED (test code = GLUBED) 126 MG/DL 70-105 H - XR ABDOMEN [id number] 00:36:00 [facility] 1945 Sex: FPatient Name: MARIAH OQUENDO Unit No: [id number] EXAMS: CPT: [id number] XR ABDOMEN 1V 11325 ABDOMEN 1 VIEW: CLINICAL HISTORY: Abdominal pain COMPARISON: 08/17/2022, 5 hours prior FINDINGS: Fecal impactionthe rectum remains. Colonic distention has slightly improved. IMPRESSION: Improvement in colonic distention. at 0036 Reported and signed by: Bart Garcia MD CC: Jane Rousseau MD; Dmitri Davidson MD Technologist: PAULINE Vega Time:DAP (Gy m2): Air Kerma (mGy): Trscr Dt/Tm: 08/18/2022 (0036) by:[email or web address] Orig Print D/T: S: 08/18/2022 (0040) BATCH NO: N/A Name: MARIAH OQUENDO [facility] Phys: Jane Yadav MD [address] [place] : 1945 Age: 77 Sex: F [place], [place] [address] Loc: N.0560 1 Exam Date: 08/17/2022 Status: ADM IN PH: FAX: PAGE 1 Signed Report- XR ABDOMEN [id number] 22:34:00 [facility] 1945 Sex: FPatient Name: MARIAH OQUENDO Unit No: [id number] EXAMS: CPT: [id number] XR ABDOMEN 1V 33948 ABDOMEN 1 VIEW: CLINICAL HISTORY: Abdominal pain [...] (2237) BATCH NO: N/A Name: MARIAH OQUENDO [facility] Phys: Jane Yadav MD [address] [facility] : 1945 Age: 77 Sex: F [place], [place] [address] Loc: N.0560 1 Exam Date: 08/17/2022 Status: ADM IN PH: FAX: PAGE 1 Signed [id number] 20:56:00 Test Item Value Reference Range Interpretation Comments GLUBED (test code = GLUBED) 157 MG/DL 70-105 H [id number] 16:00:00 Test Item Value Reference Range Interpretation Comments GLUBED (test code = GLUBED) 202 MG/DL 70-105 H [id number] 11:09:00 Test Item Value Reference Range Interpretation Comments GLUBED (test code = GLUBED) 238 MG/DL 70-105 H [id number] 05:24:00 Test Item Value Reference Range Interpretation Comments GLUBED (test code = GLUBED) 115 MG/DL 70-105 H [id number] 23:01:00 Test Item Value Reference Range Interpretation Comments GLUBED (test code = GLUBED) 192 MG/DL 70-105 H - DUP VEIN UNI [id number] 22:52:00 [facility] : 1945 Sex: FPatient Name: MARIAH OQUENDO Unit No: [id number] EXAMS: CPT: [id number] [address] RIGHT UPPER EXTREMITY VENOUS DOPPLER ULTRASOUND: CLINICAL [...] (2254) BATCH NO: N/A Name: MARIAH OQUENDO [facility] Phys:Jane Yadav MD [address] [facility] : 1945 Age: 77 Sex: F [place], [place] [address] [id number] Loc: N.0560 1 Exam Date: 08/16/2022 Status: ADM IN PH: FAX: PAGE 1 Signed ReportUA RFLX MICR CULT IF [id number] 17:22:00 Test Item Value Reference Range Interpretation [...] MUCU) Indication for culture: Dysuria/FrequencySpecimen Description: CATHETERIZED (STRAIGHT)[id number] 15:23:00 Test Item Value Reference Range Interpretation Comments GLUBED (test code = GLUBED) 174 MG/DL 70-105 H [id number] 11:10:00 Test Item Value Reference Range Interpretation Comments GLUBED (test code = GLUBED) 157 MG/DL 70-105 H [id number] 08:51:00 Test Item Value Reference Range Interpretation Comments GLUBED (test code = GLUBED) 142 MG/DL 70-105 H - XR ABDOMEN [id number] 07:52:00 [facility] : 1945 Sex: FPatient Name: MARIAH OQUENDO Unit No: [id number] EXAMS: CPT: [id number] XR ABDOMEN 1V 02004 EXAM: XR ABDOMEN 1 VIEW DATE: 08/16/2022 6:34 AM INDICATION: Pain ADDITIONAL INFORMATION: None. COMPARISON: CT abdomen pelvis on 08/14/2022. TECHNIQUE: AP abdomen. FINDINGS: Lines, tubes and hardware: Lumbar spineposterior fusion rods and screws with intervertebral disc [...] m2): Air Kerma (mGy): Trscr Dt/Tm: 08/16/2022 (0752) by:[email or web address] Orig Print D/T: S: 08/16/2022 (0755) BATCH NO: N/A Name: MARIAH OQUENDO [facility] Phys: Jane Yadav MD [address] : 1945 Age: 77 Sex: F [place] [address] Loc: N.0560 1 Exam Date:08/16/2022 Status: ADM IN PH: FAX: PAGE 1 Signed [id number] 07:49:00 Test Item Value Reference Range Interpretation Comments GLUBED (test code = GLUBED) 65 MG/DL 70-105 L COMPREHENSIVE METABOLIC [id number] 07:29:00 Test Item Value Reference Range Interpretation [...] PHOSPHATASE (test code = ALKP) CBC W/AUTO [id number] 06:53:00 Test Item Value Reference Range Interpretation [...] = BA#) 0.0 x10 3/uL 0.0-0.1 N [id number] 20:59:00 Test Item Value Reference Range Interpretation Comments GLUBED (test code = GLUBED) 131 MG/DL 70-105 H [id number] 17:42:00 Test Item Value Reference Range Interpretation Comments GLUBED (test code = GLUBED) 129 MG/DL 70-105 H [id number] 15:24:00 Test Item Value Reference Range Interpretation Comments GLUBED (test code = GLUBED) 47 MG/DL 70-105 LL [id number] 19:17:00 Test Item Value Reference Range Interpretation Comments TROPONIN-I (test code = TROPI) <0.020 ng/mL 0.000-0.034 N - CT ABD PELVIS [id number] 18:58:00 [facility] : 1945 Sex: FPatient Name: MARIAH OQUENDO Unit No: [id number] EXAMS: CPT: [id number] CT ABD PELVIS W/CONT 75377 CLINICAL HISTORY: cough, vomiting. COMPARISON: none TECHNIQUE: [...] dilation. Adrenal glands: Unremarkable Name: MARIAH OQUENDO [facility] Phys: Barbara Beaulieu MD [address] [place] : 1945 Age: 77 Sex: [place] [address] Loc: N.ERS Exam Date: 08/14/2022 Status: REG ER PH: FAX: PAGE 1 Signed Report (CONTINUED) Patient Name: MARIAH OQUENDO Unit No: [id number] EXAMS: CPT: [id number] CT ABD PELVIS W/CONT 26122 (Continued) Kidneys: The knees are normal in [...] Age-indeterminate compression L1 vertebral. No aggressive osseous lesions.No acute fracture IMPRESSION: Severe fecal burden within [...] (1900) BATCH NO: N/A Name: MARIAH OQUENDO [facility] Phys: Barbara Beaulieu MD [address] [place] : 1945 Age: 77 Sex: F [place] [address] Loc: N.ERS Exam Date: 08/14/2022 Status: REG ER PH: FAX: PAGE 2 Signed Report- CT CHEST W/CONTRAST 2022-08-14 18:58:00 [facility] 1945 Sex: FPatient Name: MARIAH OQUENDO Unit No: [id number] EXAMS: CPT: [id number] CT CHEST W/CONTRAST 32406 CLINICAL HISTORY: cough, vomiting. COMPARISON: none TECHNIQUE: [...] size, and/or utilization of iterative reconstruction technique. F INDINGS: CHEST: Lines/Tubes/Devices: None Lungs and large airways: [...] dilation. Adrenal glands: Unremarkable Name: MARIAH OQUENDO [facility] Phys: Barbara Beaulieu MD [address] [place] : 1945 Age: 77 Sex: [place] [address] Loc: N.ERS Exam Date: 08/14/2022 Status: REG PH: FAX: PAGE 1Signed Report (CONTINUED) Patient Name: MARIAH OQUENDO Unit No: [id number] EXAMS: CPT: [id number] CT CHEST W/CONTRAST 31973 (Continued) Kidneys: The knees are normal in [...] (1900) BATCH NO: N/A Name: MARIAH OQUENDO [facility] Phys: Barbara Beaulieu MD [address] [facility] : 1945 Age: 77 Sex: [place] [address] Loc: N.ERS Exam Date: 08/14/2022 Status: REG ER PH: FAX: PAGE 2 Signed ReportBASIC METABOLIC [id number] 16:34:00 Test Item Value Reference Range Interpretation [...] the recommended for regino for GFRby the [facility] on for Adults.The GFR will not calculate if th e sex is unknown or if thepatient's ag e is <18 years. CREATININE (test 1.02 mg/dL 0.44-1.03 N code = CREAT) CALCIUM (test code = 9.2 mg/dL 8.5-10.5 N CA) LIVER FUNCTION [id number] 16:34:00 Test Item Value Reference Range Interpretation [...] code = 57 U/L 42-121 N ALKP) [id number] 16:34:00 Test Item Value Reference Range Interpretation Comments LIPASE (test code = LIP) 30 IU/L 22-51 N [id number] 16:34:00 Test Item Value Reference Range Interpretation Comments MAGNESIUM (test code = MAG) 1.8 mg/dl 1.8-2.5 N HCG SERUM [id number] 15:45:00 Test Item Value Reference Range Interpretation Comments HCG SERUM QUAL NEGATIVE NEGATIVE This is a lisa litative (test code = HCGQL) screenin g test.The quantitative Bh cg may be helpful.Weakly positive results should be repeated in 48 hours. CBC W/AUTO [id number] 15:07:00 Test Item Value Reference Range Interpretation [...] 3/uL 0.0-0.1 N - XR CHEST 1 [id number] 14:44:00 [facility] : 1945 Sex: FPatient Name: MARIAH OQUENDO Unit No: [id number] EXAMS: CPT: [id number] XR CHEST 1 V 20627 EXAM: SINGLE VIEW OF THE CHEST HISTORY: Chest pain. COMPARISON: X-ray 03/25/2022. FINDINGS: Lines/tubes: None. Lungs/Pleura: No focal airspace opacity. Faint fissural line at the right midlung is unchanged. Pulmonary vasculature appears within normal limits. No pleural effusion or pneumothorax. Heart/mediastinum: C ardiomediastinal silhouette is within normal limits. Bones/soft tissues: Within normal limits. IMPRESSION: Stable exam. No acute cardiopulmonary findings. Electronically Signed by JOSEPHINE VALLES MD on08/14/2022 at 1444 Reported and signed by: JOSEPHINE VALLES MD CC: Barbara Otero MD; Dmitri Davidson MD Technologist: Merry Vega Time: DAP (Gy m2): Air Kerma (mGy): Trscr Dt/Tm: 08/14/2022 (1444) by:[email or web address] Orig Print D/T: S: 08/14/2022 (1447) BATCH NO: N/A Name: MARIAH OQUENDO [facility] Phys: Barbara Beaulieu MD [address] [facility] : 1945 Age: 77 Sex: [place] [address] Loc: N.ERS Exam Date: 08/14/2022 Status: PRE ER PH: FAX: PAGE 1 Signed Report- XR CHEST 1 [id number] 17:59:00 [facility] 1945 Sex: FPatient Name: MARIAH OQUENDO Unit No: [id number] EXAMS: CPT: [id number] XR CHEST 1 V 40858 AP CHEST 1 VIEW COMPARISON: None HISTORY: [...] Air Kerma (mGy): Trscr Dt/Tm: 03/25/2022 (175) by:[email or web address] Orig Print D/T: S: 03/25/2022 (1801) BATCH NO: N/A Name: MARIAH OQUENDO [facility] Phys: Ramu Rangel [address] [place] : 1945 Age: 76 Sex: [place] [address] Loc: N.ERS Exam Date: 03/25/2022 Status: REG ER PH: FAX: PAGE 1 Signed Report- XR HUMERUS 2 + V [id number] 17:53:00 [facility] : 1945 Sex: FPatient Name: MARIAH OQUENDO Unit No: [id number] EXAMS: CPT: [id number] XR HUMERUS 2 + V RT 23944 EXAM: XR RIGHT HUMERUS 2 VIEWS EXAM: [...] Emiliano Parker MD CC: Ramu DUNAWAY Technologist: Fluoro Time: DAP (Gy m2): Air Kerma (mGy): Trscr Dt/Tm: 03/25/2022 (1752) by:[email or web address] Orig Print D/T: S: 03/25/2022 (1755) BATCH NO: N/A Name: MARIAH OQUENDO [facility] Phys: Ramu Rangel [address] [facility] : 1945 Age: 76 Sex: [place] [address] Loc: N.ERS Exam Date: 03/25/2022 Status: REG ER PH: FAX: PAGE 1 Signed Report- XR SHOULDER 2 + V [id number] 17:53:00 [facility] : 1945 Sex: FPatient Name: MARIAH OQUENDO Unit No: [id number] EXAMS: CPT: [id number] XR SHOULDER 2 + V RT 12972 EXAM: XR RIGHT HUMERUS 2 VIEWS EXAM: [...] abnormality of the right humerus or shoulder. Electronically Signed by Emiliano Parker MD on 2021 at 1753 Reported and signed by: Emiliano Parker MD CC: Ramu DUNAWAY Technologist: Rohan Vega Time: DAP (Gy m2): Air Kerma (mGy): Trscr Dt/Tm: 03/25/2022 (1752) by:[email or web address] Orig Print D/T: S: 03/25/2022 (1755) BATCH NO: N/A Name: MARIAH OQUENDO [facility] Phys: Ramu Rangel [address] [facility] : 1945 Age: 76 Sex: [place] [address] Loc: N.ERS Exam Date: 03/25/2022 Status: REG ER PH: FAX: PAGE 1 Signed ReportCHEM [id number] 06:29:50 Test Item Value Reference Range Interpretation Comments Glucose Lvl (test code = Glucose Lvl) 140 70-99 [facility]2020-03-24 06:29:50 Test Item Value Reference Range Interpretation Comments BUN (test code = BUN) 22 7-22 [facility]2020-03-24 06:29:50 Test Item Value Reference Range Interpretation Comments Creatinine Lvl (test code = Creatinine 0.90 0.50-1.40 Lvl) [place] [id number] 06:29:50 Test Item Value Reference Range Interpretation Comments Sodium Lvl (test code = Sodium Lvl) 138 135-145 [facility] [id number] 06:29:50 Test Item Value Reference Range Interpretation Comments Potassium Lvl (test code = Potassium 4.4 3.5-5.1 Lvl) [facility] [id number] 06:29:50 Test Item Value Reference Range Interpretation Comments Chloride Lvl (test code = Chloride Lvl) 110 95-109 [facility] [id number] 06:29:50 Test Item Value Reference Range Interpretation Comments CO2 (test code = CO2) 25 24-32 [facility] [id number] 06:29:50 Test Item Value Reference Range Interpretation Comments Calcium Lvl (test code = Calcium Lvl) 8.5 8.5-10.5 [facility] [id number] 06:29:50 Test Item Value Reference Range Interpretation Comments Total Protein (test code = Total 5.5 6.4-8.4 Protein) [facility] [id number] 06:29:50 Test Item Value Reference Range Interpretation Comments Albumin Lvl (test code = Albumin Lvl) 2.4 3.5-5.0 [facility] [id number] 06:29:50 Test Item Value Reference Range Interpretation Comments ALT (test code = ALT) 13 See_Comment [Auto mated message] The system which ge nerated this result transmit thelma reference range : <=65. The reference range was not used to interpr et this result as zana l/abnormal. [facility] [id number] 06:29:50 Test Item Value Reference Range Interpretation Comments AST (test code = AST) 11 See_Comment [Auto mated message] The system which ge nerated this result transmit thelma reference range : <=37. The reference range was not used to interpr et this result as zana l/abnormal. [facility] [id number] 06:29:50 Test Item Value Reference Range Interpretation Comments Alk Phos (test code = Alk Phos) 43 39-136 [place] [id number] 06:29:50 Test Item Value Reference Range Interpretation Comments Bili Total (test code = Bili Total) 0.1 0.2-1.3 [place] [address]-03-24 06:29:50 Test Item Value Reference Range Interpretation Comments AGAP (test code = AGAP) 7.4 10.0-20.0 [place] [id number] 06:29:50 Test Item Value Reference Range Interpretation Comments B/C Ratio (test code = B/C Ratio) 24 1 6-25 [place] [address]-03-24 06:29:50 Test Item Value Reference Range Interpretation Comments Globulin (test code = Globulin) 3.1 2.7-4.2 [place] [address]-03-24 06:29:50 Test Item Value Reference Range Interpretation Comments A/G Ratio (test code = A/G Ratio) 0.8 1 0.7-1.6 [place] [address]-03-24 06:29:50 Test Item Value Reference Range Interpretation Comments eGFR (test code = eGFR) 64 [place] [address]-03-24 06:29:50 Test Item Value Reference Range Interpretation Comments Segs (test code = Segs) 83.6 45.0-75.0 [place] [address]-03-24 06:29:50 Test Item Value Reference Range Interpretation Comments Lymphocytes (test code = Lymphocytes) 7.7 20.0-40.0 [place] [address]-03-24 06:29:50 Test Item Value Reference Range Interpretation Comments Monocytes (test code = Monocytes) 4.5 2.0-12.0 [place] [address]-03-24 06:29:50 Test Item Value Reference Range Interpretation Comments Eosinophils (test code = 3.8 See_Comment [A utomated message] The Eosinophils) system which ge nerated this result tra nsmitted reference range : <=4.0. The reference r eric was not used to int erpret this result as normal/abnormal . [place] [address]-03-24 06:29:50 Test Item Value Reference Range Interpretation Comments Basophils (test code = 0.4 See_Comment [Aut omated message] The Basophils) system which ge nerated this result tra nsmitted reference range : <=1.0. The reference r eric was not used to int erpret this result as normal/abnormal . [id number] 06:29:50 Test Item Value Reference Range Interpretation Comments Neutrophils # (test code = Neutrophils 6.2 1.5-8.1 #) [facility] [id number] 06:29:50 Test Item Value Reference Range Interpretation Comments Lymphocytes # (test code = Lymphocytes 0.6 1.0-5.5 #) [place] [address]-03-24 06:29:50 Test Item Value Reference Range Interpretation Comments Monocytes # (test code 0.3 See_Comment [Aut omated message] The = Monocytes #) system which generated this result tra nsmitted reference range : <=0.8. The reference r eric was not used to int erpret this result as normal/abnormal . [place] [address]-03-24 06:29:50 Test Item Value Reference Range Interpretation Comments Eosinophils # (test code 0.3 See_Comment [A utomated message] The = Eosinophils #) system whic h generated this result tra nsmitted reference range : <=0.5. The reference r eric was not used to int erpret this result as normal/abnormal . [facility] NorthwestFkscrjmWTVSZWWTCR2473-21-14 06:29:50 Test Item Value Reference Range Interpretation Comments WBC (test code = WBC) 7.5 3.7-10.4 [place] [address]-03-24 06:29:50 Test Item Value Reference Range Interpretation Comments RBC (test code = RBC) 3.31 4.20-5.40 [place] [address]-03-24 06:29:50 Test Item Value Reference Range Interpretation Comments Hgb (test code = Hgb) 8.5 12.0-16.0 [place] [address]-03-24 06:29:50 Test Item Value Reference Range Interpretation Comments Hct (test code = Hct) 26.9 36.0-48.0 [place] [address]-03-24 06:29:50 Test Item Value Reference Range Interpretation Comments MCV (test code = MCV) 81.5 80.0-98.0 [place] [address]-03-24 06:29:50 Test Item Value Reference Range Interpretation Comments MCH (test code = MCH) 25.7 pg 27.0-31.0 [place] [address]-03-24 06:29:50 Test Item Value Reference Range Interpretation Comments MCHC (test code = MCHC) 31.6 32.0-36.0 [place] [address]-03-24 06:29:50 Test Item Value Reference Range Interpretation Comments RDW (test code = RDW) 14.6 11.5-14.5 [place] [address]-03-24 06:29:50 Test Item Value Reference Range Interpretation Comments Platelet (test code = Platelet) 257 133-450 [place] [address]-03-24 06:29:50 Test Item Value Reference Range Interpretation Comments MPV (test code = MPV) 8.9 7.4-10.4 [place] 669060-03-24 06:29:50 Test Item Value Reference Range Interpretation Comments Glucose Lvl (test code = Glucose Lvl) 140 70-99 [place] 669060-03-24 06:29:50 Test Item Value Reference Range Interpretation Comments BUN (test code = BUN) 22 7-22 [place] [address]-03-24 06:29:50 Test Item Value Reference Range Interpretation Comments Creatinine Lvl (test code = Creatinine 0.90 0.50-1.40 Lvl) [place] 669060-03-24 06:29:50 Test Item Value Reference Range Interpretation Comments Sodium Lvl (test code = Sodium Lvl) 138 135-145 [place] 669060-03-24 06:29:50 Test Item Value Reference Range Interpretation Comments Potassium Lvl (test code = Potassium 4.4 3.5-5.1 Lvl) [place] 669060-03-24 06:29:50 Test Item Value Reference Range Interpretation Comments Chloride Lvl (test code = Chloride Lvl) 110 95-109 [place] 669060-03-24 06:29:50 Test Item Value Reference Range Interpretation Comments CO2 (test code = CO2) 25 24-32 [place] 669060-03-24 06:29:50 Test Item Value Reference Range Interpretation Comments Calcium Lvl (test code = Calcium Lvl) 8.5 8.5-10.5 [facility] [id number] 06:29:50 Test Item Value Reference Range Interpretation Comments Total Protein (test code = Total 5.5 6.4-8.4 Protein) [place] 669060-03-24 06:29:50 Test Item Value Reference Range Interpretation Comments Albumin Lvl (test code = Albumin Lvl) 2.4 3.5-5.0 [facility] [id number] 06:29:50 Test Item Value Reference Range Interpretation Comments ALT (test code = ALT) 13 See_Comment [Auto mated message] The system which ge nerated this result transmit themla reference range : <=65. The reference range was not used to interpr et this result as zana l/abnormal. [facility] [id number] 06:29:50 Test Item Value Reference Range Interpretation Comments AST (test code = AST) 11 See_Comment [Auto mated message] The system which ge nerated this result transmit thelma reference range : <=37. The reference range was not used to interpr et this result as zana l/abnormal. [facility] [id number] 06:29:50 Test Item Value Reference Range Interpretation Comments Alk Phos (test code = Alk Phos) 43 39-136 [facility] [employer] [id number] 06:29:50 Test Item Value Reference Range Interpretation Comments Bili Total (test code = Bili Total) 0.1 0.2-1.3 [facility] [id number] 06:29:50 Test Item Value Reference Range Interpretation Comments AGAP (test code = AGAP) 7.4 10.0-20.0 [facility] [id number] 06:29:50 Test Item Value Reference Range Interpretation Comments B/C Ratio (test code = B/C Ratio) 24 1 6-25 [facility] [id number] 06:29:50 Test Item Value Reference Range Interpretation Comments Globulin (test code = Globulin) 3.1 2.7-4.2 [facility] [id number] 06:29:50 Test Item Value Reference Range Interpretation Comments A/G Ratio (test code = A/G Ratio) 0.8 1 0.7-1.6 [facility] [id number] 06:29:50 Test Item Value Reference Range Interpretation Comments eGFR (test code = eGFR) 64 [place] [address]-03-24 06:29:50 Test Item Value Reference Range Interpretation Comments Segs (test code = Segs) 83.6 45.0-75.0 [place] [address]-03-24 06:29:50 Test Item Value Reference Range Interpretation Comments Lymphocytes (test code = Lymphocytes) 7.7 20.0-40.0 [place] [address]-03-24 06:29:50 Test Item Value Reference Range Interpretation Comments Monocytes (test code = Monocytes) 4.5 2.0-12.0 [place] [address]-03-24 06:29:50 Test Item Value Reference Range Interpretation Comments Eosinophils (test code = 3.8 See_Comment [A utomated message] The Eosinophils) system which ge nerated this result tra nsmitted reference range : <=4.0. The reference r eric was not used to int erpret this result as normal/abnormal . [place] [address]-03-24 06:29:50 Test Item Value Reference Range Interpretation Comments Basophils (test code = 0.4 See_Comment [Aut omated message] The Basophils) system which ge nerated this result tra nsmitted reference range : <=1.0. The reference r eric was not used to int erpret this result as normal/abnormal . [place] [address]-03-24 06:29:50 Test Item Value Reference Range Interpretation Comments Neutrophils # (test code = Neutrophils 6.2 1.5-8.1 #) [place] [address]-03-24 06:29:50 Test Item Value Reference Range Interpretation Comments Lymphocytes # (test code = Lymphocytes 0.6 1.0-5.5 #) [place] [address]-03-24 06:29:50 Test Item Value Reference Range Interpretation Comments Monocytes # (test code 0.3 See_Comment [Aut omated message] The = Monocytes #) system which generated this result tra nsmitted reference range : <=0.8. The reference r eric was not used to int erpret this result as normal/abnormal . [place] [address]-03-24 06:29:50 Test Item Value Reference Range Interpretation Comments Eosinophils # (test code 0.3 See_Comment [A utomated message] The = Eosinophils #) system [employer] h generated this result tra nsmitted reference range : <=0.5. The reference r eric was not used to int erpret this result as normal/abnormal . [facility] NorthwestWbpgufkQKQOMKQKKK5272-27-47 06:29:50 Test Item Value Reference Range Interpretation Comments WBC (test code = WBC) 7.5 3.7-10.4 [facility] NorthwestCmhrrccXMODLPBTZU2522-56-30 06:29:50 Test Item Value Reference Range Interpretation Comments RBC (test code = RBC) 3.31 4.20-5.40 [facility] NorthwestQfohurhHEYRPFTLQN8659-67-11 06:29:50 Test Item Value Reference Range Interpretation Comments Hgb (test code = Hgb) 8.5 12.0-16.0 [facility] NorthwestEncimefMLEOPIROVV6710-34-76 06:29:50 Test Item Value Reference Range Interpretation Comments Hct (test code = Hct) 26.9 36.0-48.0 [facility] NorthwestFxuuhzxPIIGDZDBIE8015-93-82 06:29:50 Test Item Value Reference Range Interpretation Comments MCV (test code = MCV) 81.5 80.0-98.0 [facility] NorthwestWqpzanyTYCLBQFOZE0975-19-54 06:29:50 Test Item Value Reference Range Interpretation Comments MCH (test code = MCH) 25.7 pg 27.0-31.0 [facility] NorthwestZfcbtwoYSTFMAGEDM4090-95-06 06:29:50 Test Item Value Reference Range Interpretation Comments MCHC (test code = MCHC) 31.6 32.0-36.0 [facility] NorthwestKigfsrgMAPLDWUWYM2651-69-25 06:29:50 Test Item Value Reference Range Interpretation Comments RDW (test code = RDW) 14.6 11.5-14.5 [facility] NorthwestMlpsqblQIVMQLHAVW8430-50-91 06:29:50 Test Item Value Reference Range Interpretation Comments Platelet (test code = Platelet) 257 133-450 [facility] NorthwestVojuenkLVOVREKWBW6461-18-34 06:29:50 Test Item Value Reference Range Interpretation Comments MPV (test code = MPV) 8.9 7.4-10.4 [facility]2020-03-24 06:29:50 Test Item Value Reference Range Interpretation Comments Glucose Lvl (test code = Glucose Lvl) 140 70-99 [place] [address]-03-24 06:29:50 Test Item Value Reference Range Interpretation Comments BUN (test code = BUN) 22 7-22 [place] [address]-03-24 06:29:50 Test Item Value Reference Range Interpretation Comments Creatinine Lvl (test code = Creatinine 0.90 0.50-1.40 Lvl) [place] [address]-03-24 06:29:50 Test Item Value Reference Range Interpretation Comments Sodium Lvl (test code = Sodium Lvl) 138 135-145 [place] [address]-03-24 06:29:50 Test Item Value Reference Range Interpretation Comments Potassium Lvl (test code = Potassium 4.4 3.5-5.1 Lvl) [place] [address]-03-24 06:29:50 Test Item Value Reference Range Interpretation Comments Chloride Lvl (test code = Chloride Lvl) 110 95-109 [place] [address]-03-24 06:29:50 Test Item Value Reference Range Interpretation Comments CO2 (test code = CO2) 25 24-32 [place] [address]-03-24 06:29:50 Test Item Value Reference Range Interpretation Comments Calcium Lvl (test code = Calcium Lvl) 8.5 8.5-10.5 [place] [address]-03-24 06:29:50 Test Item Value Reference Range Interpretation Comments Total Protein (test code = Total 5.5 6.4-8.4 Protein) [place] [address]-03-24 06:29:50 Test Item Value Reference Range Interpretation Comments Albumin Lvl (test code = Albumin Lvl) 2.4 3.5-5.0 [place] [address]-03-24 06:29:50 Test Item Value Reference Range Interpretation Comments ALT (test code = ALT) 13 See_Comment [Auto mated message] The system which ge nerated this result transmit thelma reference range : <=65. The reference range was not used to interpr et this result as zana l/abnormal. [place] [address]-03-24 06:29:50 Test Item Value Reference Range Interpretation Comments AST (test code = AST) 11 See_Comment [Auto mated message] The system which ge nerated this result transmit thelma reference range : <=37. The reference range was not used to interpr et this result as zana l/abnormal. [facility] [id number] 06:29:50 Test Item Value Reference Range Interpretation Comments Alk Phos (test code = Alk Phos) 43 39-136 [place] 669060-03-24 06:29:50 Test Item Value Reference Range Interpretation Comments Bili Total (test code = Bili Total) 0.1 0.2-1.3 [place] 669060-03-24 06:29:50 Test Item Value Reference Range Interpretation Comments AGAP (test code = AGAP) 7.4 10.0-20.0 [place] 669060-03-24 06:29:50 Test Item Value Reference Range Interpretation Comments B/C Ratio (test code = B/C Ratio) 24 1 6-25 [place] [address]-03-24 06:29:50 Test Item Value Reference Range Interpretation Comments Globulin (test code = Globulin) 3.1 2.7-4.2 [place] 669060-03-24 06:29:50 Test Item Value Reference Range Interpretation Comments A/G Ratio (test code = A/G Ratio) 0.8 1 0.7-1.6 [place] [address]-03-24 06:29:50 Test Item Value Reference Range Interpretation Comments eGFR (test code = eGFR) 64 [facility] NorthwestKqrdehwJBQJPWOEZL8066-93-65 06:29:50 Test Item Value Reference Range Interpretation Comments Segs (test code = Segs) 83.6 45.0-75.0 [place] 261990-03-24 06:29:50 Test Item Value Reference Range Interpretation Comments Lymphocytes (test code = Lymphocytes) 7.7 20.0-40.0 [place] [address]-03-24 06:29:50 Test Item Value Reference Range Interpretation Comments Monocytes (test code = Monocytes) 4.5 2.0-12.0 [place] [address]-03-24 06:29:50 Test Item Value Reference Range Interpretation Comments Eosinophils (test code = 3.8 See_Comment [A utomated message] The Eosinophils) system which ge nerated this result tra nsmitted reference range : <=4.0. The reference r eric was not used to int erpret this result as normal/abnormal . [place] [address]-03-24 06:29:50 Test Item Value Reference Range Interpretation Comments Basophils (test code = 0.4 See_Comment [Aut omated message] The Basophils) system which ge nerated this result tra nsmitted reference range : <=1.0. The reference r eric was not used to int erpret this result as normal/abnormal . [facility] NorthwestQfgdzomTNBMELARNL8424-85-22 06:29:50 Test Item Value Reference Range Interpretation Comments Neutrophils # (test code = Neutrophils 6.2 1.5-8.1 #) [facility] NorthwestWbjunagNPTYYPEKUY0078-99-17 06:29:50 Test Item Value Reference Range Interpretation Comments Lymphocytes # (test code = Lymphocytes 0.6 1.0-5.5 #) [facility] NorthwestDzyvwuzZYCKMSCLYB0312-09-48 06:29:50 Test Item Value Reference Range Interpretation Comments Monocytes # (test code 0.3 See_Comment [Aut omated message] The = Monocytes #) system which generated this result tra nsmitted reference range : <=0.8. The reference r eric was not used to int erpret this result as normal/abnormal . [facility] NorthwestJviboiuJIKIIKQQRI8534-70-55 06:29:50 Test Item Value Reference Range Interpretation Comments Eosinophils # (test code 0.3 See_Comment [A utomated message] The = Eosinophils #) system whic h generated this result tra nsmitted reference range : <=0.5. The reference r eric was not used to int erpret this result as normal/abnormal . [facility] NorthwestQsunisuSZIFJWDYVT5310-69-91 06:29:50 Test Item Value Reference Range Interpretation Comments WBC (test code = WBC) 7.5 3.7-10.4 [place] [address]1990-03-24 06:29:50 Test Item Value Reference Range Interpretation Comments RBC (test code = RBC) 3.31 4.20-5.40 [place] 261990-03-24 06:29:50 Test Item Value Reference Range Interpretation Comments Hgb (test code = Hgb) 8.5 12.0-16.0 [place] [address]-03-24 06:29:50 Test Item Value Reference Range Interpretation Comments Hct (test code = Hct) 26.9 36.0-48.0 [place] 261990-03-24 06:29:50 Test Item Value Reference Range Interpretation Comments MCV (test code = MCV) 81.5 80.0-98.0 [facility] NorthwestNjxftkjSEZBYNMMEN9264-30-34 06:29:50 Test Item Value Reference Range Interpretation Comments MCH (test code = MCH) 25.7 pg 27.0-31.0 [facility] NorthwestUwgywfyPKDNBIYSRT5045-57-69 06:29:50 Test Item Value Reference Range Interpretation Comments MCHC (test code = MCHC) 31.6 32.0-36.0 [facility] NorthwestWdemdtbGJCHTFHSOF5842-64-34 06:29:50 Test Item Value Reference Range Interpretation Comments RDW (test code = RDW) 14.6 11.5-14.5 [facility] NorthwestTnuntezYDAFLEJIET7824-11-60 06:29:50 Test Item Value Reference Range Interpretation Comments Platelet (test code = Platelet) 257 133-450 [facility] NorthwestYwdabvcQLLNCPMVMV9348-36-92 06:29:50 Test Item Value Reference Range Interpretation Comments MPV (test code = MPV) 8.9 7.4-10.4 [facility]2020-03-23 18:47:00 Test Item Value Reference Range Interpretation Comments Source Respiratory Nasophrngl Swb Panel PCR (test code = *NA*(12/05/19 1:47 PM) Source Respiratory Panel PCR) [facility]2020-03-23 18:47:00 Test Item Value Reference Range Interpretation Comments Influenza A PCR (test Negative *NA*(12/05/19 code = Influenza A PCR) 1:47 PM) [facility]2020-03-23 18:47:00 Test Item Value Reference Range Interpretation Comments Influenza B PCR (test Negative *NA*(12/05/19 code = Influenza B PCR) 1:47 PM) [facility]2020-03-23 18:47:00 Test Item Value Reference Range Interpretation Comments RSV PCR (test code = Negative *NA*(12/05/19 RSV PCR) 1:47 PM) [facility]2020-03-23 18:47:00 Test Item Value Reference Range Interpretation Comments Source Respiratory Nasophrngl Swb Panel PCR (test code = *NA*(12/05/19 1:47 PM) Source Respiratory Panel PCR) [facility]2020-03-23 18:47:00 Test Item Value Reference Range Interpretation Comments Influenza A PCR (test Negative *NA*(12/05/19 code = Influenza A PCR) 1:47 PM) [facility] [id number] 18:47:00 Test Item Value Reference Range Interpretation Comments Influenza B PCR (test Negative *NA*(12/05/19 code = Influenza B PCR) 1:47 PM) [facility] CenterannIDLE[facility]ULAR [id number] 18:47:00 Test Item Value Reference Range Interpretation Comments RSV PCR (test code = Negative *NA*(12/05/19 RSV PCR) 1:47 PM) [facility] [id number] 18:47:00 Test Item Value Reference Range Interpretation Comments Source Respiratory Nasophrngl Swb Panel PCR (test code = *NA*(12/05/19 1:47 PM) Source Respiratory Panel PCR) [facility] [id number] 18:47:00 Test Item Value Reference Range Interpretation Comments Influenza A PCR (test Negative *NA*(12/05/19 code = Influenza A PCR) 1:47 PM) [facility] [id number] 18:47:00 Test Item Value Reference Range Interpretation Comments Influenza B PCR (test Negative *NA*(12/05/19 code = Influenza B PCR) 1:47 PM) [facility] [id number] 18:47:00 Test Item Value Reference Range Interpretation Comments RSV PCR (test code = Negative *NA*(12/05/19 RSV PCR) 1:47 PM) [facility] [id number] 16:26:00 Test Item Value Reference Range Interpretation Comments Ferritin Lvl (test code = Ferritin Lvl) 19 [facility]annCARDIAC [id number] 16:26:00 Test Item Value Reference Range Interpretation Comments Total CK (test code = Total CK) 24 [facility]annCARD[facility] [id number] 16:26:00 Test Item Value Reference Range Interpretation Comments Troponin-I (test code no gt See_Comment [Auto mated message] The = Troponin-I) system which g enerated this result transmit thelma reference range : <=0.40. The reference r eric was not used to interpr et this result as zana l/abnormal. [facility] [id number] 16:26:00 Test Item Value Reference Range Interpretation Comments Procalcitonin Lvl (test 1.36 See_Comment [Au tomated message] code = Procalcitonin Lvl) Th e system which generated this result transmitted ref erence range: <=0.10. The reference range was not used to interpr et this result as normal/abnormal . [facility] [id number] 16:26:00 Test Item Value Reference Range Interpretation Comments Glucose Lvl (test code = Glucose Lvl) 164 70-99 [facility] [id number] 16:26:00 Test Item Value Reference Range Interpretation Comments BUN (test code = BUN) 14 7-22 [facility] [id number] 16:26:00 Test Item Value Reference Range Interpretation Comments Creatinine Lvl (test code = Creatinine 0.75 0.50-1.40 Lvl) [facility] [id number] 16:26:00 Test Item Value Reference Range Interpretation Comments Sodium Lvl (test code = Sodium Lvl) 134 135-145 [facility] [id number] 16:26:00 Test Item Value Reference Range Interpretation Comments Potassium Lvl (test code = Potassium 4.3 3.5-5.1 Lvl) [facility] [id number] 16:26:00 Test Item Value Reference Range Interpretation Comments Chloride Lvl (test code = Chloride Lvl) 104 95-109 [facility] [id number] 16:26:00 Test Item Value Reference Range Interpretation Comments CO2 (test code = CO2) 25 24-32 [facility] [id number] 16:26:00 Test Item Value Reference Range Interpretation Comments Calcium Lvl (test code = Calcium Lvl) 9.1 8.5-10.5 [facility] [id number] 16:26:00 Test Item Value Reference Range Interpretation Comments Total Protein (test code = Total 6.8 6.4-8.4 Protein) [facility] [id number] 16:26:00 Test Item Value Reference Range Interpretation Comments Albumin Lvl (test code = Albumin Lvl) 3.0 3.5-5.0 [facility] [employer]2020-03-23 16:26:00 Test Item Value Reference Range Interpretation Comments ALT (test code = ALT) 15 See_Comment [Auto mated message] The system which ge nerated this result transmit thelma reference range : <=65. The reference range was not used to interpr et this result as zana l/abnormal. [employer]0-03-23 16:26:00 Test Item Value Reference Range Interpretation Comments AST (test code = AST) 11 See_Comment [Auto mated message] The system which ge nerated this result transmit thelma reference range : <=37. The reference range was not used to interpr et this result as zana l/abnormal. [place]-03-23 16:26:00 Test Item Value Reference Range Interpretation Comments Alk Phos (test code = Alk Phos) 58 39-136 [facility] [employer]0-03-23 16:26:00 Test Item Value Reference Range Interpretation Comments Bili Total (test code = Bili Total) 0.2 0.2-1.3 [facility] [employer]0-03-23 16:26:00 Test Item Value Reference Range Interpretation Comments AGAP (test code = AGAP) 9.3 10.0-20.0 [place]-03-23 16:26:00 Test Item Value Reference Range Interpretation Comments B/C Ratio (test code = B/C Ratio) 19 1 6-25 [facility] [employer]-03-23 16:26:00 Test Item Value Reference Range Interpretation Comments Globulin (test code = Globulin) 3.8 2.7-4.2 [facility] [employer]-03-23 16:26:00 Test Item Value Reference Range Interpretation Comments A/G Ratio (test code = A/G Ratio) 0.8 1 0.7-1.6 [place]-03-23 16:26:00 Test Item Value Reference Range Interpretation Comments eGFR (test code = eGFR) 79 [facility] [employer]-03-23 16:26:00 Test Item Value Reference Range Interpretation Comments Lactic Acid Lvl (test code = Lactic 0.8 0.5-2.2 Acid Lvl) [facility] [employer]-03-23 16:26:00 Test Item Value Reference Range Interpretation Comments LDH (test code = LDH) 211 98-192 [facility] NorthwestAguekrjRUUQOWNSVL8351-15-58 16:26:00 Test Item Value Reference Range Interpretation Comments WBC (test code = WBC) 12.3 3.7-10.4 [facility] NorthwestOfzzmovIOEVTDFDJE9581-04-23 16:26:00 Test Item Value Reference Range Interpretation Comments RBC (test code = RBC) 3.87 4.20-5.40 [facility] NorthwestEpycyftTPWENRAIMO6010-73-15 16:26:00 Test Item Value Reference Range Interpretation Comments Hgb (test code = Hgb) 9.9 12.0-16.0 [facility] NorthwestUceajgdRDDPRTNMXV2165-42-58 16:26:00 Test Item Value Reference Range Interpretation Comments Hct (test code = Hct) 31.5 36.0-48.0 [facility] NorthwestDbxaxsmLQIRWMJDSF0327-37-64 16:26:00 Test Item Value Reference Range Interpretation Comments MCV (test code = MCV) 81.2 80.0-98.0 [facility] NorthwestElmcciaAQQRWNPXVR0484-36-77 16:26:00 Test Item Value Reference Range Interpretation Comments MCH (test code = MCH) 25.5 pg 27.0-31.0 [facility] NorthwestBudubgyVGLRIWSOPD7166-25-81 16:26:00 Test Item Value Reference Range Interpretation Comments MCHC (test code = MCHC) 31.4 32.0-36.0 [facility] NorthwestEedtjvtGHPAHRZCFN7829-92-82 16:26:00 Test Item Value Reference Range Interpretation Comments RDW (test code = RDW) 14.7 11.5-14.5 [facility] NorthwestIbbovwwMQCDPZJKPN9204-69-98 16:26:00 Test Item Value Reference Range Interpretation Comments Platelet (test code = Platelet) 316 133-450 [facility] NorthwestPhrsblgYHWZGASQGD7544-59-51 16:26:00 Test Item Value Reference Range Interpretation Comments MPV (test code = MPV) 8.8 7.4-10.4 [facility] NorthwestRkptsgeTUWPNIQVQK2284-71-09 16:26:00 Test Item Value Reference Range Interpretation Comments PT (test code = PT) 14.0 s 12.0-14.7 [facility] NorthwestBbrqcvuZFXJNEFDGP8148-46-45 16:26:00 Test Item Value Reference Range Interpretation Comments INR (test code = INR) 1.08 1 0.85-1.17 [facility] NorthwestJtnctyeQAAVTBERLD1763-18-97 16:26:00 Test Item Value Reference Range Interpretation Comments PTT (test code = PTT) 26.0 s 22.9-35.8 [facility] NorthwestQpxaxrtJFKRMNEBKT8206-84-45 16:26:00 Test Item Value Reference Range Interpretation Comments Segs (test code = Segs) 94.6 45.0-75.0 [facility] NorthwestUowkvyrQMOEZOLFUL3784-94-52 16:26:00 Test Item Value Reference Range Interpretation Comments Lymphocytes (test code = Lymphocytes) 1.5 20.0-40.0 [facility] NorthwestDagciyeCVQWAVWXXH4109-94-73 16:26:00 Test Item Value Reference Range Interpretation Comments Monocytes (test code = Monocytes) 2.9 2.0-12.0 [facility] NorthwestNjnhwefDTTKKJLYBG3906-37-88 16:26:00 Test Item Value Reference Range Interpretation Comments Eosinophils (test code = 0.6 See_Comment [A utomated message] The Eosinophils) system which ge nerated this result tra nsmitted reference range : <=4.0. The reference r eric was not used to int erpret this result as normal/abnormal . [facility]vwnmzPCDRXIXETI2547-22-10 16:26:00 Test Item Value Reference Range Interpretation Comments Basophils (test code = 0.4 See_Comment [Aut omated message] The Basophils) system which ge nerated this result tra nsmitted reference range : <=1.0. The reference r eric was not used to int erpret this result as normal/abnormal . [facility] NorthwestKlsxppnWDOZRKQJNJ0136-61-18 16:26:00 Test Item Value Reference Range Interpretation Comments Neutrophils # (test code = Neutrophils 11.7 1.5-8.1 #) [facility] NorthwestSngaaegPIINTDQOUD0892-82-27 16:26:00 Test Item Value Reference Range Interpretation Comments Lymphocytes # (test code = Lymphocytes 0.2 1.0-5.5 #) [facility] NorthwestNdpuifsKUQENNVKTJ7681-64-05 16:26:00 Test Item Value Reference Range Interpretation Comments Monocytes # (test code 0.4 See_Comment [Aut omated message] The = Monocytes #) system which generated this result tra nsmitted reference range : <=0.8. The reference r eric was not used to int erpret this result as normal/abnormal . [facility] NorthwestUktdqvgYBHKBQRPVT0256-33-90 16:26:00 Test Item Value Reference Range Interpretation Comments Eosinophils # (test code 0.1 See_Comment [A utomated message] The = Eosinophils #) system whic h generated this result tra nsmitted reference range : <=0.5. The reference r eric was not used to int erpret this result as normal/abnormal . [facility]ct[facility]ZAOOGPGHX[facility]89[facility]-44 16:26:00 Test Item Value Reference Range Interpretation Comments C-REACTIVE PROTEIN (test code = 15.4 C-REACTIVE PROTEIN) [facility] AND [id number] 16:26:00 Test Item Value Reference Range Interpretation Comments UA Turbidity (test code = Clear (12/05/19 11:26 UA Turbidity) AM) [facility] AND [id number] 16:26:00 Test Item Value Reference Range Interpretation Comments UA Spec Grav (test code = UA Spec 1.010 1 Grav) [facility] AND [id number] 16:26:00 Test Item Value Reference Range Interpretation Comments UA pH (test code = UA pH) 7.0 1 5.0-8.0 [facility] AND [id number] 16:26:00 Test Item Value Reference Range Interpretation Comments UA Protein (test code = UA Negative mg/dL Protein) [facility] AND [id number] 16:26:00 Test Item Value Reference Range Interpretation Comments UA Glucose (test code = UA Negative mg/dL Glucose) [facility] AND [id number] 16:26:00 Test Item Value Reference Range Interpretation Comments UA Ketones (test code = UA Negative mg/dL Ketones) [facility] AND [id number] 16:26:00 Test Item Value Reference Range Interpretation Comments UA Bili (test code = Negative *NA*(12/05/19 UA Bili) 11:26 AM) [facility] AND [id number] 16:26:00 Test Item Value Reference Range Interpretation Comments UA Blood (test code = Negative (12/05/19 11:26 UA Blood) AM) [facility] AND [id number] 16:26:00 Test Item Value Reference Range Interpretation Comments UA Nitrite (test code Negative (12/05/19 11:26 = UA Nitrite) AM) [facility] [id number] 16:26:00 Test Item Value Reference Range Interpretation Comments UA Leuk Est (test Negative (12/05/19 11:26 code = UA Leuk Est) AM) [facility] [id number] 16:26:00 Test Item Value Reference Range Interpretation Comments UA Sq Epi (test code = UA Sq Occasional /LPF Epi) [facility] [id number] 16:26:00 Test Item Value Reference Range Interpretation Comments UA WBC (test code = no gt See_Comment [Automa thelma message] The UA WBC) system which ge nerated this result transmit thelma reference range : <=5. The reference range was not used to interpr et this result as zana l/abnormal. [facility] [id number] 16:26:00 Test Item Value Reference Range Interpretation Comments UA RBC (test code = no gt See_Comment [Automa thelma message] The UA RBC) system which ge nerated this result transmit thelma reference range : <=2. The reference range was not used to interpr et this result as zana l/abnormal. [facility] [id number] 16:26:00 Test Item Value Reference Range Interpretation Comments UA Mucus (test code = UA Mucus) Few /LPF [facility] [id number] 16:26:00 Test Item Value Reference Range Interpretation Comments UA Color (test code = UA Color) YELLOW [facility] [id number] 16:26:00 Test Item Value Reference Range Interpretation Comments UA Urobilinogen (test code = UA <=1.0 mg/dL 0.1-1.0 Urobilinogen) [facility] [id number] 16:26:00 Test Item Value Reference Range Interpretation Comments Ferritin Lvl (test code = Ferritin Lvl) 19 -204 [facility] [id number] 16:26:00 Test Item Value Reference Range Interpretation Comments Total CK (test code = Total CK) 24 12-191 [facility]annC[facility] [id number] 16:26:00 Test Item Value Reference Range Interpretation Comments Troponin-I (test code no gt See_Comment [Auto mated message] The = Troponin-I) system which g enerated this result transmit thelma reference range : <=0.40. The reference r eric was not used to interpr et this result as zana l/abnormal. [facility] [id number] 16:26:00 Test Item Value Reference Range Interpretation Comments Procalcitonin Lvl (test 1.36 See_Comment [Au tomated message] code = Procalcitonin Lvl) Th e system which generated this result transmitted ref erence range: <=0.10. The reference range was not used to interpr et this result as normal/abnormal . [facility] [id number] 16:26:00 Test Item Value Reference Range Interpretation Comments Glucose Lvl (test code = Glucose Lvl) 164 70-99 [facility] [id number] 16:26:00 Test Item Value Reference Range Interpretation Comments BUN (test code = BUN) 14 7-22 [facility] [id number] 16:26:00 Test Item Value Reference Range Interpretation Comments Creatinine Lvl (test code = Creatinine 0.75 0.50-1.40 Lvl) [facility] [id number] 16:26:00 Test Item Value Reference Range Interpretation Comments Sodium Lvl (test code = Sodium Lvl) 134 135-145 [facility] [id number] 16:26:00 Test Item Value Reference Range Interpretation Comments Potassium Lvl (test code = Potassium 4.3 3.5-5.1 Lvl) [facility] [id number] 16:26:00 Test Item Value Reference Range Interpretation Comments Chloride Lvl (test code = Chloride Lvl) 104 95-109 [facility] [id number] 16:26:00 Test Item Value Reference Range Interpretation Comments CO2 (test code = CO2) 25 24-32 [facility] [id number] 16:26:00 Test Item Value Reference Range Interpretation Comments Calcium Lvl (test code = Calcium Lvl) 9.1 8.5-10.5 [facility] [id number] 16:26:00 Test Item Value Reference Range Interpretation Comments Total Protein (test code = Total 6.8 6.4-8.4 Protein) [facility] [id number] 16:26:00 Test Item Value Reference Range Interpretation Comments Albumin Lvl (test code = Albumin Lvl) 3.0 3.5-5.0 [facility] [employer]2020-03-23 16:26:00 Test Item Value Reference Range Interpretation Comments ALT (test code = ALT) 15 See_Comment [Auto mated message] The system which ge nerated this result transmit thelma reference range : <=65. The reference range was not used to interpr et this result as zana l/abnormal. [employer]2020-03-23 16:26:00 Test Item Value Reference Range Interpretation Comments AST (test code = AST) 11 See_Comment [Auto mated message] The system which ge nerated this result transmit thelma reference range : <=37. The reference range was not used to interpr et this result as zana l/abnormal. [facility] [id number] 16:26:00 Test Item Value Reference Range Interpretation Comments Alk Phos (test code = Alk Phos) 58 39-136 [facility] [employer]2020-03-23 16:26:00 Test Item Value Reference Range Interpretation Comments Bili Total (test code = Bili Total) 0.2 0.2-1.3 [facility] [employer]2020-03-23 16:26:00 Test Item Value Reference Range Interpretation Comments AGAP (test code = AGAP) 9.3 10.0-20.0 [facility] [id number] 16:26:00 Test Item Value Reference Range Interpretation Comments B/C Ratio (test code = B/C Ratio) 19 1 6-25 [facility] [employer]2020-03-23 16:26:00 Test Item Value Reference Range Interpretation Comments Globulin (test code = Globulin) 3.8 2.7-4.2 [facility] [employer]2020-03-23 16:26:00 Test Item Value Reference Range Interpretation Comments A/G Ratio (test code = A/G Ratio) 0.8 1 0.7-1.6 [facility] [employer]2020-03-23 16:26:00 Test Item Value Reference Range Interpretation Comments eGFR (test code = eGFR) 79 [facility] [employer]2020-03-23 16:26:00 Test Item Value Reference Range Interpretation Comments Lactic Acid Lvl (test code = Lactic 0.8 0.5-2.2 Acid Lvl) [facility]2020-03-23 16:26:00 Test Item Value Reference Range Interpretation Comments LDH (test code = LDH) 211 98-192 [facility] NorthwestEzyuedtQDYOOXBOBG1494-96-12 16:26:00 Test Item Value Reference Range Interpretation Comments WBC (test code = WBC) 12.3 3.7-10.4 [facility] NorthwestYrrudlwMCBGWPXZUG1592-77-40 16:26:00 Test Item Value Reference Range Interpretation Comments RBC (test code = RBC) 3.87 4.20-5.40 [facility] NorthwestHdqwqfjVMPBAIQURH2917-03-52 16:26:00 Test Item Value Reference Range Interpretation Comments Hgb (test code = Hgb) 9.9 12.0-16.0 [facility] NorthwestOilkfvtOAUSUYMZKJ9337-06-74 16:26:00 Test Item Value Reference Range Interpretation Comments Hct (test code = Hct) 31.5 36.0-48.0 [facility] Nort[id number] 16:26:00 Test Item Value Reference Range Interpretation Comments MCV (test code = MCV) 81.2 80.0-98.0 [facility] NorthwestDwcjfqyIUGFQMEQWY1035-35-37 16:26:00 Test Item Value Reference Range Interpretation Comments MCH (test code = MCH) 25.5 pg 27.0-31.0 [facility] NorthwestYrqamwiWZATXJULPD4390-39-59 16:26:00 Test Item Value Reference Range Interpretation Comments MCHC (test code = MCHC) 31.4 32.0-36.0 [facility] NorthwestMwykrguQRCJUSBGNE9267-51-48 16:26:00 Test Item Value Reference Range Interpretation Comments RDW (test code = RDW) 14.7 11.5-14.5 [facility] NorthwestEvbsvasOZJQJDXBOC9141-29-34 16:26:00 Test Item Value Reference Range Interpretation Comments Platelet (test code = Platelet) 316 133-450 [facility] NorthwestDzttcsiYOGFIXMKFF0262-40-53 16:26:00 Test Item Value Reference Range Interpretation Comments MPV (test code = MPV) 8.8 7.4-10.4 [place] [address]-03-23 16:26:00 Test Item Value Reference Range Interpretation Comments PT (test code = PT) 14.0 s 12.0-14.7 [facility] NorthwestIpowixiSSXEIBVOJK4377-92-72 16:26:00 Test Item Value Reference Range Interpretation Comments INR (test code = INR) 1.08 1 0.85-1.17 [place] [address]-03-23 16:26:00 Test Item Value Reference Range Interpretation Comments PTT (test code = PTT) 26.0 s 22.9-35.8 [place] [address]-03-23 16:26:00 Test Item Value Reference Range Interpretation Comments Segs (test code = Segs) 94.6 45.0-75.0 [place] [address]-03-23 16:26:00 Test Item Value Reference Range Interpretation Comments Lymphocytes (test code = Lymphocytes) 1.5 20.0-40.0 [place] [address]-03-23 16:26:00 Test Item Value Reference Range Interpretation Comments Monocytes (test code = Monocytes) 2.9 2.0-12.0 [place] [address]-03-23 16:26:00 Test Item Value Reference Range Interpretation Comments Eosinophils (test code = 0.6 See_Comment [A utomated message] The Eosinophils) system which ge nerated this result tra nsmitted reference range : <=4.0. The reference r eric was not used to int erpret this result as normal/abnormal . [facility] No[id number] 16:26:00 Test Item Value Reference Range Interpretation Comments Basophils (test code = 0.4 See_Comment [Aut omated message] The Basophils) system which ge nerated this result tra nsmitted reference range : <=1.0. The reference r eric was not used to int erpret this result as normal/abnormal . [facility] Nor[id number] 16:26:00 Test Item Value Reference Range Interpretation Comments Neutrophils # (test code = Neutrophils 11.7 1.5-8.1 #) [place] [address]-03-23 16:26:00 Test Item Value Reference Range Interpretation Comments Lymphocytes # (test code = Lymphocytes 0.2 1.0-5.5 #) [place] [address]-03-23 16:26:00 Test Item Value Reference Range Interpretation Comments Monocytes # (test code 0.4 See_Comment [Aut omated message] The = Monocytes #) system which generated this result tra nsmitted reference range : <=0.8. The reference r eric was not used to int erpret this result as normal/abnormal . [facility]VopvouhIBTDBVHIUD0359-84-55 16:26:00 Test Item Value Reference Range Interpretation Comments Eosinophils # (test code 0.1 See_Comment [A utomated message] The = Eosinophils #) system whic h generated this result tra nsmitted reference range : <=0.5. The reference r eric was not used to int erpret this result as normal/abnormal . [facility] Hos[id number] 16:26:00 Test Item Value Reference Range Interpretation Comments C-REACTIVE PROTEIN (test code = 15.4 C-REACTIVE PROTEIN) [facility] AND [id number] 16:26:00 Test Item Value Reference Range Interpretation Comments UA Turbidity (test code = Clear (12/05/19 11:26 UA Turbidity) AM) [facility] AND [id number] 16:26:00 Test Item Value Reference Range Interpretation Comments UA Spec Grav (test code = UA Spec 1.010 1 Grav) [facility] AND [id number] 16:26:00 Test Item Value Reference Range Interpretation Comments UA pH (test code = UA pH) 7.0 1 5.0-8.0 [facility] AND [id number] 16:26:00 Test Item Value Reference Range Interpretation Comments UA Protein (test code = UA Negative mg/dL Protein) [facility] AND [id number] 16:26:00 Test Item Value Reference Range Interpretation Comments UA Glucose (test code = UA Negative mg/dL Glucose) [facility] AND [id number] 16:26:00 Test Item Value Reference Range Interpretation Comments UA Ketones (test code = UA Negative mg/dL Ketones) [facility] AND [id number] 16:26:00 Test Item Value Reference Range Interpretation Comments UA Bili (test code = Negative *NA*(12/05/19 UA Bili) 11:26 AM) [facility] AND [id number] 16:26:00 Test Item Value Reference Range Interpretation Comments UA Blood (test code = Negative (12/05/19 11:26 UA Blood) AM) [facility] AND [id number] 16:26:00 Test Item Value Reference Range Interpretation Comments UA Nitrite (test code Negative (12/05/19 11:26 = UA Nitrite) AM) [facility] [id number] 16:26:00 Test Item Value Reference Range Interpretation Comments UA Leuk Est (test Negative (12/05/19 11:26 code = UA Leuk Est) AM) [facility] [id number] 16:26:00 Test Item Value Reference Range Interpretation Comments UA Sq Epi (test code = UA Sq Occasional /LPF Epi) [facility] [id number] 16:26:00 Test Item Value Reference Range Interpretation Comments UA WBC (test code = no gt See_Comment [Automa thelma message] The UA WBC) system which ge nerated this result transmit thelma reference range : <=5. The reference range was not used to interpr et this result as zana l/abnormal. [facility] [id number] 16:26:00 Test Item Value Reference Range Interpretation Comments UA RBC (test code = no gt See_Comment [Automa thelma message] The UA RBC) system which ge nerated this result transmit thelma reference range : <=2. The reference range was not used to interpr et this result as zana l/abnormal. [facility] [id number] 16:26:00 Test Item Value Reference Range Interpretation Comments UA Mucus (test code = UA Mucus) Few /LPF [facility] AND [id number] 16:26:00 Test Item Value Reference Range Interpretation Comments UA Color (test code = UA Color) YELLOW [facility] AND [id number] 16:26:00 Test Item Value Reference Range Interpretation Comments UA Urobilinogen (test code = UA <=1.0 mg/dL 0.1-1.0 Urobilinogen) [facility]annANEMIA [id number] 16:26:00 Test Item Value Reference Range Interpretation Comments Ferritin Lvl (test code = Ferritin Lvl) 19 - [facility]annCARDIAC [id number] 16:26:00 Test Item Value Reference Range Interpretation Comments Total CK (test code = Total CK) 24 12-191 [facility]annC[facility]AC [id number] 16:26:00 Test Item Value Reference Range Interpretation Comments Troponin-I (test code no gt See_Comment [Auto mated message] The = Troponin-I) system which g enerated this result transmit thelma reference range : <=0.40. The reference r eric was not used to interpr et this result as zana l/abnormal. [facility] [id number] 16:26:00 Test Item Value Reference Range Interpretation Comments Procalcitonin Lvl (test 1.36 See_Comment [Au tomated message] code = Procalcitonin Lvl) Th e system which generated this result transmitted ref erence range: <=0.10. The reference range was not used to interpr et this result as normal/abnormal . [facility] [id number] 16:26:00 Test Item Value Reference Range Interpretation Comments Glucose Lvl (test code = Glucose Lvl) 164 70-99 [facility] [id number] 16:26:00 Test Item Value Reference Range Interpretation Comments BUN (test code = BUN) 14 7-22 [facility] [id number] 16:26:00 Test Item Value Reference Range Interpretation Comments Creatinine Lvl (test code = Creatinine 0.75 0.50-1.40 Lvl) [facility] [id number] 16:26:00 Test Item Value Reference Range Interpretation Comments Sodium Lvl (test code = Sodium Lvl) 134 135-145 [facility] [id number] 16:26:00 Test Item Value Reference Range Interpretation Comments Potassium Lvl (test code = Potassium 4.3 3.5-5.1 Lvl) [facility] [id number] 16:26:00 Test Item Value Reference Range Interpretation Comments Chloride Lvl (test code = Chloride Lvl) 104 95-109 [facility] [id number] 16:26:00 Test Item Value Reference Range Interpretation Comments CO2 (test code = CO2) 25 24-32 [facility] [id number] 16:26:00 Test Item Value Reference Range Interpretation Comments Calcium Lvl (test code = Calcium Lvl) 9.1 8.5-10.5 [facility] [id number] 16:26:00 Test Item Value Reference Range Interpretation Comments Total Protein (test code = Total 6.8 6.4-8.4 Protein) [facility] [id number] 16:26:00 Test Item Value Reference Range Interpretation Comments Albumin Lvl (test code = Albumin Lvl) 3.0 3.5-5.0 [facility] [id number] 16:26:00 Test Item Value Reference Range Interpretation Comments ALT (test code = ALT) 15 See_Comment [Auto mated message] The system which ge nerated this result transmit thelma reference range : <=65. The reference range was not used to interpr et this result as zana l/abnormal. [facility] [id number] 16:26:00 Test Item Value Reference Range Interpretation Comments AST (test code = AST) 11 See_Comment [Auto mated message] The system which ge nerated this result transmit thelma reference range : <=37. The reference range was not used to interpr et this result as zana l/abnormal. [facility] [id number] 16:26:00 Test Item Value Reference Range Interpretation Comments Alk Phos (test code = Alk Phos) 58 39-136 [facility] [id number] 16:26:00 Test Item Value Reference Range Interpretation Comments Bili Total (test code = Bili Total) 0.2 0.2-1.3 [facility] [id number] 16:26:00 Test Item Value Reference Range Interpretation Comments AGAP (test code = AGAP) 9.3 10.0-20.0 [facility] [id number] 16:26:00 Test Item Value Reference Range Interpretation Comments B/C Ratio (test code = B/C Ratio) 19 1 6-25 [facility] [id number] 16:26:00 Test Item Value Reference Range Interpretation Comments Globulin (test code = Globulin) 3.8 2.7-4.2 [facility] [id number] 16:26:00 Test Item Value Reference Range Interpretation Comments A/G Ratio (test code = A/G Ratio) 0.8 1 0.7-1.6 [facility] [id number] 16:26:00 Test Item Value Reference Range Interpretation Comments eGFR (test code = eGFR) 79 [facility] [id number] 16:26:00 Test Item Value Reference Range Interpretation Comments Lactic Acid Lvl (test code = Lactic 0.8 0.5-2.2 Acid Lvl) [facility]2020-03-23 16:26:00 Test Item Value Reference Range Interpretation Comments LDH (test code = LDH) 211 98-192 [facility] NorthwestQfwxrnfPPWHXLEWIP2903-97-70 16:26:00 Test Item Value Reference Range Interpretation Comments WBC (test code = WBC) 12.3 3.7-10.4 [facility] NorthwestEmozqqpYFQBGNSVHF7493-69-64 16:26:00 Test Item Value Reference Range Interpretation Comments RBC (test code = RBC) 3.87 4.20-5.40 [facility] NorthwestNtumiueIFFDRJDMMJ7375-26-54 16:26:00 Test Item Value Reference Range Interpretation Comments Hgb (test code = Hgb) 9.9 12.0-16.0 [facility] Nort[id number] 16:26:00 Test Item Value Reference Range Interpretation Comments Hct (test code = Hct) 31.5 36.0-48.0 [facility] Nort[id number] 16:26:00 Test Item Value Reference Range Interpretation Comments MCV (test code = MCV) 81.2 80.0-98.0 [facility] NorthwestHkixuzdUCEEMPNURZ2533-25-86 16:26:00 Test Item Value Reference Range Interpretation Comments MCH (test code = MCH) 25.5 pg 27.0-31.0 [facility] NorthwestRngorbuBDKNRZMKHL7332-32-31 16:26:00 Test Item Value Reference Range Interpretation Comments MCHC (test code = MCHC) 31.4 32.0-36.0 [facility] NorthwestWvwbquyEMVQKLGXRG9992-21-80 16:26:00 Test Item Value Reference Range Interpretation Comments RDW (test code = RDW) 14.7 11.5-14.5 [facility] NorthwestOxhjgzqSVQGCAIHPM9842-38-07 16:26:00 Test Item Value Reference Range Interpretation Comments Platelet (test code = Platelet) 316 133-450 [facility] NorthwestWntuvlkWGGQPZAPMI6611-31-91 16:26:00 Test Item Value Reference Range Interpretation Comments MPV (test code = MPV) 8.8 7.4-10.4 [facility] NorthwestHaueieaJLXHDQGLMW3251-41-55 16:26:00 Test Item Value Reference Range Interpretation Comments PT (test code = PT) 14.0 s 12.0-14.7 [place] [address]-03-23 16:26:00 Test Item Value Reference Range Interpretation Comments INR (test code = INR) 1.08 1 0.85-1.17 [place] [address]-03-23 16:26:00 Test Item Value Reference Range Interpretation Comments PTT (test code = PTT) 26.0 s 22.9-35.8 [place] [address]-03-23 16:26:00 Test Item Value Reference Range Interpretation Comments Segs (test code = Segs) 94.6 45.0-75.0 [place] [address]-03-23 16:26:00 Test Item Value Reference Range Interpretation Comments Lymphocytes (test code = Lymphocytes) 1.5 20.0-40.0 [place] [address]-03-23 16:26:00 Test Item Value Reference Range Interpretation Comments Monocytes (test code = Monocytes) 2.9 2.0-12.0 [place] [address]-03-23 16:26:00 Test Item Value Reference Range Interpretation Comments Eosinophils (test code = 0.6 See_Comment [A utomated message] The Eosinophils) system which ge nerated this result tra nsmitted reference range : <=4.0. The reference r eric was not used to int erpret this result as normal/abnormal . [place] [address]-03-23 16:26:00 Test Item Value Reference Range Interpretation Comments Basophils (test code = 0.4 See_Comment [Aut omated message] The Basophils) system which ge nerated this result tra nsmitted reference range : <=1.0. The reference r eric was not used to int erpret this result as normal/abnormal . [place] [address]-03-23 16:26:00 Test Item Value Reference Range Interpretation Comments Neutrophils # (test code = Neutrophils 11.7 1.5-8.1 #) [place] [address]-03-23 16:26:00 Test Item Value Reference Range Interpretation Comments Lymphocytes # (test code = Lymphocytes 0.2 1.0-5.5 #) [place] [address]-03-23 16:26:00 Test Item Value Reference Range Interpretation Comments Monocytes # (test code 0.4 See_Comment [Aut omated message] The = Monocytes #) system which generated this result tra nsmitted reference range : <=0.8. The reference r eric was not used to int erpret this result as normal/abnormal . [facility]ZcxtycdQQKDDEPOLV3834-38-76 16:26:00 Test Item Value Reference Range Interpretation Comments Eosinophils # (test code 0.1 See_Comment [A utomated message] The = Eosinophils #) system whic h generated this result tra nsmitted reference range : <=0.5. The reference r eric was not used to int erpret this result as normal/abnormal . [facility]wmhkOTWJMBBDWF2677-[facility] 16:26:00 Test Item Value Reference Range Interpretation Comments C-REACTIVE PROTEIN (test code = 15.4 C-REACTIVE PROTEIN) [facility] [id number] 16:26:00 Test Item Value Reference Range Interpretation Comments UA Turbidity (test code = Clear (12/05/19 11:26 UA Turbidity) AM) [facility] [id number] 16:26:00 Test Item Value Reference Range Interpretation Comments UA Spec Grav (test code = UA Spec 1.010 1 Grav) [facility] [id number] 16:26:00 Test Item Value Reference Range Interpretation Comments UA pH (test code = UA pH) 7.0 1 5.0-8.0 [facility] [id number] 16:26:00 Test Item Value Reference Range Interpretation Comments UA Protein (test code = UA Negative mg/dL Protein) [facility] [id number] 16:26:00 Test Item Value Reference Range Interpretation Comments UA Glucose (test code = UA Negative mg/dL Glucose) [facility] [id number] 16:26:00 Test Item Value Reference Range Interpretation Comments UA Ketones (test code = UA Negative mg/dL Ketones) [facility] [id number] 16:26:00 Test Item Value Reference Range Interpretation Comments UA Bili (test code = Negative *NA*(12/05/19 UA Bili) 11:26 AM) [facility] [id number] 16:26:00 Test Item Value Reference Range Interpretation Comments UA Blood (test code = Negative (12/05/19 11:26 UA Blood) AM) [facility] [id number] 16:26:00 Test Item Value Reference Range Interpretation Comments UA Nitrite (test code Negative (12/05/19 11:26 = UA Nitrite) AM) [facility] [id number] 16:26:00 Test Item Value Reference Range Interpretation Comments UA Leuk Est (test Negative (12/05/19 11:26 code = UA Leuk Est) AM) [facility] [id number] 16:26:00 Test Item Value Reference Range Interpretation Comments UA Sq Epi (test code = UA Sq Occasional /LPF Epi) [facility] [id number] 16:26:00 Test Item Value Reference Range Interpretation Comments UA WBC (test code = no gt See_Comment [Automa thelma message] The UA WBC) system which ge nerated this result transmit thelma reference range : <=5. The reference range was not used to interpr et this result as zana l/abnormal. [facility]ann[facility] [id number] 16:26:00 Test Item Value Reference Range Interpretation Comments UA RBC (test code = no gt See_Comment [Automa thelma message] The UA RBC) system which ge nerated this result transmit thelma reference range : <=2. The reference range was not used to interpr et this result as zana l/abnormal. [facility]UR[facility] AND [id number] 16:26:00 Test Item Value Reference Range Interpretation Comments UA Mucus (test code = UA Mucus) Few /LPF [facility] [id number] 16:26:00 Test Item Value Reference Range Interpretation Comments UA Color (test code = UA Color) YELLOW [facility] [id number] 16:26:00 Test Item Value Reference Range Interpretation Comments UA Urobilinogen (test code = UA <=1.0 mg/dL 0.1-1.0 Urobilinogen) [facility]ann[facility] [id number] 00:35:00 Test Item Value Reference Range Interpretation Comments Total CK (test code = Total CK) 62 12-191 [facility]ann[facility]AC [id number] 00:35:00 Test Item Value Reference Range Interpretation Comments Troponin-I (test code no gt See_Comment [Auto mated message] The = Troponin-I) system which g enerated this result transmit thelma reference range : <=0.40. The reference r eric was not used to interpr et this result as zana l/abnormal. [facility] [id number] 00:35:00 Test Item Value Reference Range Interpretation Comments BNP (test code = BNP) 25 [facility] [id number] 00:35:00 Test Item Value Reference Range Interpretation Comments Glucose Lvl (test code = Glucose Lvl) 179 70-99 [facility] [id number] 00:35:00 Test Item Value Reference Range Interpretation Comments BUN (test code = BUN) 32 7-22 [facility] [id number] 00:35:00 Test Item Value Reference Range Interpretation Comments Creatinine Lvl (test code = Creatinine 1.26 0.50-1.40 Lvl) [facility] [id number] 00:35:00 Test Item Value Reference Range Interpretation Comments Sodium Lvl (test code = Sodium Lvl) 139 135-145 [facility] [id number] 00:35:00 Test Item Value Reference Range Interpretation Comments Potassium Lvl (test code = Potassium 4.1 3.5-5.1 Lvl) [facility] [id number] 00:35:00 Test Item Value Reference Range Interpretation Comments Chloride Lvl (test code = Chloride Lvl) 110 95-109 [facility] [id number] 00:35:00 Test Item Value Reference Range Interpretation Comments CO2 (test code = CO2) 22 24-32 [facility] [id number] 00:35:00 Test Item Value Reference Range Interpretation Comments Calcium Lvl (test code = Calcium Lvl) 9.3 8.5-10.5 [facility]2020-03-07 00:35:00 Test Item Value Reference Range Interpretation Comments Total Protein (test code = Total 7.2 6.4-8.4 Protein) [facility]2020-03-07 00:35:00 Test Item Value Reference Range Interpretation Comments Albumin Lvl (test code = Albumin Lvl) 3.4 3.5-5.0 [facility] [id number] 00:35:00 Test Item Value Reference Range Interpretation Comments ALT (test code = ALT) 16 See_Comment [Auto mated message] The system which ge nerated this result transmit thelma reference range : <=65. The reference range was not used to interpr et this result as zana l/abnormal. [facility]2020-03-07 00:35:00 Test Item Value Reference Range Interpretation Comments AST (test code = AST) 9 See_Comment [Auto mated message] The system which ge nerated this result transmit thelma reference range : <=37. The reference range was not used to interpr et this result as zana l/abnormal. [facility]2020-03-07 00:35:00 Test Item Value Reference Range Interpretation Comments Alk Phos (test code = Alk Phos) 69 39-136 [facility] [employer]0-03-07 00:35:00 Test Item Value Reference Range Interpretation Comments Bili Total (test code = Bili Total) 0.2 0.2-1.3 [facility]-03-07 00:35:00 Test Item Value Reference Range Interpretation Comments AGAP (test code = AGAP) 11.1 10.0-20.0 [facility]0-03-07 00:35:00 Test Item Value Reference Range Interpretation Comments B/C Ratio (test code = B/C Ratio) 25 1 6-25 [facility]0-03-07 00:35:00 Test Item Value Reference Range Interpretation Comments Globulin (test code = Globulin) 3.8 2.7-4.2 [facility]0-03-07 00:35:00 Test Item Value Reference Range Interpretation Comments A/G Ratio (test code = A/G Ratio) 0.9 1 0.7-1.6 [facility]0-03-07 00:35:00 Test Item Value Reference Range Interpretation Comments eGFR (test code = eGFR) 42 [facility] FyghdrdUPEFHDQGVN4329-24-49 00:35:00 Test Item Value Reference Range Interpretation Comments Segs (test code = Segs) 52.3 45.0-75.0 [facility] EyvmczdNBMTPHKFJZ7091-00-58 00:35:00 Test Item Value Reference Range Interpretation Comments Lymphocytes (test code = Lymphocytes) 24.7 20.0-40.0 [facility] UhbgmlfBOVUUVPNQZ0734-49-31 00:35:00 Test Item Value Reference Range Interpretation Comments Monocytes (test code = Monocytes) 8.2 2.0-12.0 [place] [address]-03-07 00:35:00 Test Item Value Reference Range Interpretation Comments Eosinophils (test code = 14.0 See_Comment [A utomated message] The Eosinophils) system which ge nerated this result tra nsmitted reference range : <=4.0. The reference r eric was not used to int erpret this result as normal/abnormal . [place] [address]-03-07 00:35:00 Test Item Value Reference Range Interpretation Comments Basophils (test code = 0.8 See_Comment [Aut omated message] The Basophils) system which ge nerated this result tra nsmitted reference range : <=1.0. The reference r eric was not used to int erpret this result as normal/abnormal . [place] [address]-03-07 00:35:00 Test Item Value Reference Range Interpretation Comments Neutrophils # (test code = Neutrophils 3.4 1.5-8.1 #) [place] [address]-03-07 00:35:00 Test Item Value Reference Range Interpretation Comments Lymphocytes # (test code = Lymphocytes 1.6 1.0-5.5 #) [place] [address]-03-07 00:35:00 Test Item Value Reference Range Interpretation Comments Monocytes # (test code 0.5 See_Comment [Aut omated message] The = Monocytes #) system which generated this result tra nsmitted reference range : <=0.8. The reference r eric was not used to int erpret this result as normal/abnormal . [place] [address]-03-07 00:35:00 Test Item Value Reference Range Interpretation Comments Eosinophils # (test code 0.9 See_Comment [A utomated message] The = Eosinophils #) system whic h generated this result tra nsmitted reference range : <=0.5. The reference r eric was not used to int erpret this result as normal/abnormal . [place] [address]-03-07 00:35:00 Test Item Value Reference Range Interpretation Comments Basophils # (test code 0.1 See_Comment [Aut omated message] The = Basophils #) system which generated this result tra nsmitted reference range : <=0.2. The reference r eric was not used to int erpret this result as normal/abnormal . [facility] NorthwestKuordqgBNFUIFREAB0629-37-85 00:35:00 Test Item Value Reference Range Interpretation Comments WBC (test code = WBC) 6.4 3.7-10.4 [facility] NorthwestQdruqhmXMODIHFZML9588-41-83 00:35:00 Test Item Value Reference Range Interpretation Comments RBC (test code = RBC) 4.04 4.20-5.40 [facility] NorthwestOwxuyrhKMCSRWDWIN4835-73-99 00:35:00 Test Item Value Reference Range Interpretation Comments Hgb (test code = Hgb) 10.4 12.0-16.0 [facility] NorthwestYzlsoljVSUZXPNSLG8071-60-91 00:35:00 Test Item Value Reference Range Interpretation Comments Hct (test code = Hct) 33.5 36.0-48.0 [facility] NorthwestDitlfvkCNVRMGCUOG7899-98-73 00:35:00 Test Item Value Reference Range Interpretation Comments MCV (test code = MCV) 82.9 80.0-98.0 [facility] NorthwestAnhdaogELVVIXMXLQ1634-71-20 00:35:00 Test Item Value Reference Range Interpretation Comments MCH (test code = MCH) 25.9 pg 27.0-31.0 [facility] NorthwestFeywqvbECLSTLTCZE8242-43-97 00:35:00 Test Item Value Reference Range Interpretation Comments MCHC (test code = MCHC) 31.2 32.0-36.0 [facility] NorthwestWrsoasiGHLIRHHOHI6923-72-31 00:35:00 Test Item Value Reference Range Interpretation Comments RDW (test code = RDW) 14.9 11.5-14.5 [facility] NorthwestNhnozvaDESVITNWMI7971-17-32 00:35:00 Test Item Value Reference Range Interpretation Comments Platelet (test code = Platelet) 282 133-450 [facility] NorthwestAtgyyqpNBBDRQNEFG6308-30-02 00:35:00 Test Item Value Reference Range Interpretation Comments MPV (test code = MPV) 8.8 7.4-10.4 [facility] NorthwestKdlxvtyEDAFZVBYUT9938-88-53 00:35:00 Test Item Value Reference Range Interpretation Comments PT (test code = PT) 13.5 s 12.0-14.7 [facility] NorthwestPfxlhfuIRHTTWGHNA5650-22-31 00:35:00 Test Item Value Reference Range Interpretation Comments INR (test code = INR) 1.03 1 0.85-1.17 [place] [address]-03-07 00:35:00 Test Item Value Reference Range Interpretation Comments PTT (test code = PTT) 27.4 s 22.9-35.8 [facility] [id number] 00:35:00 Test Item Value Reference Range Interpretation Comments Total CK (test code = Total CK) 62 12-191 [facility] [id number] 00:35:00 Test Item Value Reference Range Interpretation Comments Troponin-I (test code no gt See_Comment [Auto mated message] The = Troponin-I) system which g enerated this result transmit thelma reference range : <=0.40. The reference r eric was not used to interpr et this result as zana l/abnormal. [facility] HospitalAgennix LKPJQHZ0239-45-87 00:35:00 Test Item Value Reference Range Interpretation Comments BNP (test code = BNP) 25 [facility]Play[facility] [id number] 00:35:00 Test Item Value Reference Range Interpretation Comments Glucose Lvl (test code = Glucose Lvl) 179 70-99 [facility] [id number] 00:35:00 Test Item Value Reference Range Interpretation Comments BUN (test code = BUN) 32 7-22 [facility] [id number] 00:35:00 Test Item Value Reference Range Interpretation Comments Creatinine Lvl (test code = Creatinine 1.26 0.50-1.40 Lvl) [facility]Play[facility] [id number] 00:35:00 Test Item Value Reference Range Interpretation Comments Sodium Lvl (test code = Sodium Lvl) 139 135-145 [facility]Play[facility] [id number] 00:35:00 Test Item Value Reference Range Interpretation Comments Potassium Lvl (test code = Potassium 4.1 3.5-5.1 Lvl) [facility] [id number] 00:35:00 Test Item Value Reference Range Interpretation Comments Chloride Lvl (test code = Chloride Lvl) 110 95-109 [facility] [id number] 00:35:00 Test Item Value Reference Range Interpretation Comments CO2 (test code = CO2) 22 24-32 [facility] [id number] 00:35:00 Test Item Value Reference Range Interpretation Comments Calcium Lvl (test code = Calcium Lvl) 9.3 8.5-10.5 [facility] [id number] 00:35:00 Test Item Value Reference Range Interpretation Comments Total Protein (test code = Total 7.2 6.4-8.4 Protein) [facility] [id number] 00:35:00 Test Item Value Reference Range Interpretation Comments Albumin Lvl (test code = Albumin Lvl) 3.4 3.5-5.0 [facility] [id number] 00:35:00 Test Item Value Reference Range Interpretation Comments ALT (test code = ALT) 16 See_Comment [Auto mated message] The system which ge nerated this result transmit thelma reference range : <=65. The reference range was not used to interpr et this result as zana l/abnormal. [facility] [id number] 00:35:00 Test Item Value Reference Range Interpretation Comments AST (test code = AST) 9 See_Comment [Auto mated message] The system which ge nerated this result transmit thelma reference range : <=37. The reference range was not used to interpr et this result as zana l/abnormal. [facility] [id number] 00:35:00 Test Item Value Reference Range Interpretation Comments Alk Phos (test code = Alk Phos) 69 39-136 [facility] [id number] 00:35:00 Test Item Value Reference Range Interpretation Comments Bili Total (test code = Bili Total) 0.2 0.2-1.3 [facility] [id number] 00:35:00 Test Item Value Reference Range Interpretation Comments AGAP (test code = AGAP) 11.1 10.0-20.0 [facility] [id number] 00:35:00 Test Item Value Reference Range Interpretation Comments B/C Ratio (test code = B/C Ratio) 25 1 6-25 [facility] [employer]2020-03-07 00:35:00 Test Item Value Reference Range Interpretation Comments Globulin (test code = Globulin) 3.8 2.7-4.2 [facility] [id number] 00:35:00 Test Item Value Reference Range Interpretation Comments A/G Ratio (test code = A/G Ratio) 0.9 1 0.7-1.6 [facility]2020-03-07 00:35:00 Test Item Value Reference Range Interpretation Comments eGFR (test code = eGFR) 42 [facility] NorthwestQeoaeecVBSUJRLIDI1263-36-22 00:35:00 Test Item Value Reference Range Interpretation Comments Segs (test code = Segs) 52.3 45.0-75.0 [facility] NorthwestYhhhptfZEUXVHERTS4914-57-19 00:35:00 Test Item Value Reference Range Interpretation Comments Lymphocytes (test code = Lymphocytes) 24.7 20.0-40.0 [place] [address]-03-07 00:35:00 Test Item Value Reference Range Interpretation Comments Monocytes (test code = Monocytes) 8.2 2.0-12.0 [place] [address]-03-07 00:35:00 Test Item Value Reference Range Interpretation Comments Eosinophils (test code = 14.0 See_Comment [A utomated message] The Eosinophils) system which ge nerated this result tra nsmitted reference range : <=4.0. The reference r eric was not used to int erpret this result as normal/abnormal . [facility] NorthwestZplkxokOQDUQAAPAL4364-84-57 00:35:00 Test Item Value Reference Range Interpretation Comments Basophils (test code = 0.8 See_Comment [Aut omated message] The Basophils) system which ge nerated this result tra nsmitted reference range : <=1.0. The reference r eric was not used to int erpret this result as normal/abnormal . [facility] NorthwestXavqfrrRSKIPFQJUT4588-72-84 00:35:00 Test Item Value Reference Range Interpretation Comments Neutrophils # (test code = Neutrophils 3.4 1.5-8.1 #) [place] [address]-03-07 00:35:00 Test Item Value Reference Range Interpretation Comments Lymphocytes # (test code = Lymphocytes 1.6 1.0-5.5 #) [place] [address]-03-07 00:35:00 Test Item Value Reference Range Interpretation Comments Monocytes # (test code 0.5 See_Comment [Aut omated message] The = Monocytes #) system which generated this result tra nsmitted reference range : <=0.8. The reference r eric was not used to int erpret this result as normal/abnormal . [place] [address]-07 00:35:00 Test Item Value Reference Range Interpretation Comments Eosinophils # (test code 0.9 See_Comment [A utomated message] The = Eosinophils #) system whic h generated this result tra nsmitted reference range : <=0.5. The reference r eric was not used to int erpret this result as normal/abnormal . [facility] NorthwestUpzmakhEHTIVLZSGI1205-79-89 00:35:00 Test Item Value Reference Range Interpretation Comments Basophils # (test code 0.1 See_Comment [Aut omated message] The = Basophils #) system which generated this result tra nsmitted reference range : <=0.2. The reference r eric was not used to int erpret this result as normal/abnormal . [facility] NorthwestHhuqiycWSNJXAFOYU6553-64-31 00:35:00 Test Item Value Reference Range Interpretation Comments WBC (test code = WBC) 6.4 3.7-10.4 [place] [address]-03-07 00:35:00 Test Item Value Reference Range Interpretation Comments RBC (test code = RBC) 4.04 4.20-5.40 [place] [address]-03-07 00:35:00 Test Item Value Reference Range Interpretation Comments Hgb (test code = Hgb) 10.4 12.0-16.0 [place] [address]-03-07 00:35:00 Test Item Value Reference Range Interpretation Comments Hct (test code = Hct) 33.5 36.0-48.0 [place] [address]-03-07 00:35:00 Test Item Value Reference Range Interpretation Comments MCV (test code = MCV) 82.9 80.0-98.0 [place] [address]-03-07 00:35:00 Test Item Value Reference Range Interpretation Comments MCH (test code = MCH) 25.9 pg 27.0-31.0 [facility] NorthwestJnhrqjyCGCDVEONEC1555-45-16 00:35:00 Test Item Value Reference Range Interpretation Comments MCHC (test code = MCHC) 31.2 32.0-36.0 [place] [address]-03-07 00:35:00 Test Item Value Reference Range Interpretation Comments RDW (test code = RDW) 14.9 11.5-14.5 [place] [address]-03-07 00:35:00 Test Item Value Reference Range Interpretation Comments Platelet (test code = Platelet) 282 133-450 [facility] CenterTtgrtzmLMRHPUKBKN9071-48-67 00:35:00 Test Item Value Reference Range Interpretation Comments MPV (test code = MPV) 8.8 7.4-10.4 [facility] CenterOqkjytpXUXNVPRZZB1195-61-13 00:35:00 Test Item Value Reference Range Interpretation Comments PT (test code = PT) 13.5 s 12.0-14.7 [facility] CenterNobtqjzMGXTCQEQYG6989-38-24 00:35:00 Test Item Value Reference Range Interpretation Comments INR (test code = INR) 1.03 1 0.85-1.17 [facility] CenterAbwqotiRNWKHNDRFO0027-85-98 00:35:00 Test Item Value Reference Range Interpretation Comments PTT (test code = PTT) 27.4 s 22.9-35.8 [facility] CenterPaladionAC [id number] 00:35:00 Test Item Value Reference Range Interpretation Comments Total CK (test code = Total CK) 62 12-191 [facility] CenterGeolab-IT KVSGEFP4025-87-44 00:35:00 Test Item Value Reference Range Interpretation Comments Troponin-I (test code no gt See_Comment [Auto mated message] The = Troponin-I) system which g enerated this result transmit thelma reference range : <=0.40. The reference r eric was not used to interpr et this result as zana l/abnormal. [facility] CenterGeol[facility] [id number] 00:35:00 Test Item Value Reference Range Interpretation Comments BNP (test code = BNP) 25 [facility] [id number] 00:35:00 Test Item Value Reference Range Interpretation Comments Glucose Lvl (test code = Glucose Lvl) 179 70-99 [facility] CenterPlay[facility] [id number] 00:35:00 Test Item Value Reference Range Interpretation Comments BUN (test code = BUN) 32 7-22 [facility] [id number] 00:35:00 Test Item Value Reference Range Interpretation Comments Creatinine Lvl (test code = Creatinine 1.26 0.50-1.40 Lvl) [facility] [id number] 00:35:00 Test Item Value Reference Range Interpretation Comments Sodium Lvl (test code = Sodium Lvl) 139 135-145 [facility] [id number] 00:35:00 Test Item Value Reference Range Interpretation Comments Potassium Lvl (test code = Potassium 4.1 3.5-5.1 Lvl) [facility] [id number] 00:35:00 Test Item Value Reference Range Interpretation Comments Chloride Lvl (test code = Chloride Lvl) 110 95-109 [facility] [id number] 00:35:00 Test Item Value Reference Range Interpretation Comments CO2 (test code = CO2) 22 24-32 [facility] [id number] 00:35:00 Test Item Value Reference Range Interpretation Comments Calcium Lvl (test code = Calcium Lvl) 9.3 8.5-10.5 [facility] [id number] 00:35:00 Test Item Value Reference Range Interpretation Comments Total Protein (test code = Total 7.2 6.4-8.4 Protein) [facility] [id number] 00:35:00 Test Item Value Reference Range Interpretation Comments Albumin Lvl (test code = Albumin Lvl) 3.4 3.5-5.0 [facility] [id number] 00:35:00 Test Item Value Reference Range Interpretation Comments ALT (test code = ALT) 16 See_Comment [Auto mated message] The system which ge nerated this result transmit thelma reference range : <=65. The reference range was not used to interpr et this result as zana l/abnormal. [facility] [id number] 00:35:00 Test Item Value Reference Range Interpretation Comments AST (test code = AST) 9 See_Comment [Auto mated message] The system which ge nerated this result transmit thelma reference range : <=37. The reference range was not used to interpr et this result as zana l/abnormal. [facility] [id number] 00:35:00 Test Item Value Reference Range Interpretation Comments Alk Phos (test code = Alk Phos) 69 39-136 [facility] [id number] 00:35:00 Test Item Value Reference Range Interpretation Comments Bili Total (test code = Bili Total) 0.2 0.2-1.3 [facility] [id number] 00:35:00 Test Item Value Reference Range Interpretation Comments AGAP (test code = AGAP) 11.1 10.0-20.0 [place] [address]-03-07 00:35:00 Test Item Value Reference Range Interpretation Comments B/C Ratio (test code = B/C Ratio) 25 1 6-25 [place] [address]-03-07 00:35:00 Test Item Value Reference Range Interpretation Comments Globulin (test code = Globulin) 3.8 2.7-4.2 [place] [address]-03-07 00:35:00 Test Item Value Reference Range Interpretation Comments A/G Ratio (test code = A/G Ratio) 0.9 1 0.7-1.6 [place] [address]-03-07 00:35:00 Test Item Value Reference Range Interpretation Comments eGFR (test code = eGFR) 42 [place] [address]-03-07 00:35:00 Test Item Value Reference Range Interpretation Comments Segs (test code = Segs) 52.3 45.0-75.0 [place] [address]-03-07 00:35:00 Test Item Value Reference Range Interpretation Comments Lymphocytes (test code = Lymphocytes) 24.7 20.0-40.0 [place] [address]-03-07 00:35:00 Test Item Value Reference Range Interpretation Comments Monocytes (test code = Monocytes) 8.2 2.0-12.0 [place] [address]-03-07 00:35:00 Test Item Value Reference Range Interpretation Comments Eosinophils (test code = 14.0 See_Comment [A utomated message] The Eosinophils) system which ge nerated this result tra nsmitted reference range : <=4.0. The reference r eric was not used to int erpret this result as normal/abnormal . [place] [address]-03-07 00:35:00 Test Item Value Reference Range Interpretation Comments Basophils (test code = 0.8 See_Comment [Aut omated message] The Basophils) system which ge nerated this result tra nsmitted reference range : <=1.0. The reference r eric was not used to int erpret this result as normal/abnormal . [place] [address]-03-07 00:35:00 Test Item Value Reference Range Interpretation Comments Neutrophils # (test code = Neutrophils 3.4 1.5-8.1 #) [place] [address]-03-07 00:35:00 Test Item Value Reference Range Interpretation Comments Lymphocytes # (test code = Lymphocytes 1.6 1.0-5.5 #) [facility]lkyuumQVJGHZBKAS7803-20-[facility] 00:35:00 Test Item Value Reference Range Interpretation Comments Monocytes # (test code 0.5 See_Comment [Aut omated message] The = Monocytes #) system which generated this result tra nsmitted reference range : <=0.8. The reference r eric was not used to int erpret this result as normal/abnormal . [facility] NorthwestSwmiupxBXUSTVCEJT7506-37-41 00:35:00 Test Item Value Reference Range Interpretation Comments Eosinophils # (test code 0.9 See_Comment [A utomated message] The = Eosinophils #) system whic h generated this result tra nsmitted reference range : <=0.5. The reference r eric was not used to int erpret this result as normal/abnormal . [facility] NorthwestLxywobhFWXDLCRYKC9116-17-28 00:35:00 Test Item Value Reference Range Interpretation Comments Basophils # (test code 0.1 See_Comment [Aut omated message] The = Basophils #) system which generated this result tra nsmitted reference range : <=0.2. The reference r eric was not used to int erpret this result as normal/abnormal . [facility] NorthwestZdfywpxITIGDVYRYG3813-98-49 00:35:00 Test Item Value Reference Range Interpretation Comments WBC (test code = WBC) 6.4 3.7-10.4 [facility] NorthwestIownqfuGYXYDRGFXP9097-23-88 00:35:00 Test Item Value Reference Range Interpretation Comments RBC (test code = RBC) 4.04 4.20-5.40 [place] [address]-03-07 00:35:00 Test Item Value Reference Range Interpretation Comments Hgb (test code = Hgb) 10.4 12.0-16.0 [place] [address]-03-07 00:35:00 Test Item Value Reference Range Interpretation Comments Hct (test code = Hct) 33.5 36.0-48.0 [facility] NorthwestFefthjlWUYGZFDQFG8409-67-38 00:35:00 Test Item Value Reference Range Interpretation Comments MCV (test code = MCV) 82.9 80.0-98.0 [place] [address]-03-07 00:35:00 Test Item Value Reference Range Interpretation Comments MCH (test code = MCH) 25.9 pg 27.0-31.0 [facility] NorthwestYhixrgnGKZGIGZMFU9007-87-09 00:35:00 Test Item Value Reference Range Interpretation Comments MCHC (test code = MCHC) 31.2 32.0-36.0 [facility] NorthwestQmhjrdbSBLHMEEPPC8211-94-86 00:35:00 Test Item Value Reference Range Interpretation Comments RDW (test code = RDW) 14.9 11.5-14.5 [facility] NorthwestSovioodMFOPBAKGSW8103-13-55 00:35:00 Test Item Value Reference Range Interpretation Comments Platelet (test code = Platelet) 282 133-450 [facility] NorthwestFwddevpGGSGONNMZJ7607-27-12 00:35:00 Test Item Value Reference Range Interpretation Comments MPV (test code = MPV) 8.8 7.4-10.4 [place] [address]-03-07 00:35:00 Test Item Value Reference Range Interpretation Comments PT (test code = PT) 13.5 s 12.0-14.7 [place] [address]-03-07 00:35:00 Test Item Value Reference Range Interpretation Comments INR (test code = INR) 1.03 1 0.85-1.17 [facility] NorthwestDctwukaZFXQBKIWAQ9179-46-61 00:35:00 Test Item Value Reference Range Interpretation Comments PTT (test code = PTT) 27.4 s 22.9-35.8 [facility] [id number] 09:04:00 Test Item Value Reference Range Interpretation Comments Glucose Lvl (test code = Glucose Lvl) 92 70-99 [facility] [id number] 09:04:00 Test Item Value Reference Range Interpretation Comments BUN (test code = BUN) 15 7-22 [place] 669060-02-08 09:04:00 Test Item Value Reference Range Interpretation Comments Creatinine Lvl (test code = Creatinine 0.72 0.50-1.40 Lvl) [facility] [id number] 09:04:00 Test Item Value Reference Range Interpretation Comments Sodium Lvl (test code = Sodium Lvl) 141 135-145 [place] 669060-02-08 09:04:00 Test Item Value Reference Range Interpretation Comments Potassium Lvl (test code = Potassium 3.9 3.5-5.1 Lvl) [facility]2020-02-08 09:04:00 Test Item Value Reference Range Interpretation Comments Chloride Lvl (test code = Chloride Lvl) 110 95-109 [facility]2020-02-08 09:04:00 Test Item Value Reference Range Interpretation Comments CO2 (test code = CO2) 26 24-32 [place] 669060-02-08 09:04:00 Test Item Value Reference Range Interpretation Comments Calcium Lvl (test code = Calcium Lvl) 8.6 8.5-10.5 [facility]2020-02-08 09:04:00 Test Item Value Reference Range Interpretation Comments AGAP (test code = AGAP) 8.9 10.0-20.0 [facility]2020-02-08 09:04:00 Test Item Value Reference Range Interpretation Comments eGFR (test code = eGFR) 84 [facility] NorthwestMyeioouFEPRNPTBNT4441-72-10 09:04:00 Test Item Value Reference Range Interpretation Comments WBC (test code = WBC) 6.7 3.7-10.4 [facility] NorthwestYoreppoIOMYODIVSV4743-91-61 09:04:00 Test Item Value Reference Range Interpretation Comments RBC (test code = RBC) 3.39 4.20-5.40 [place] [address]-02-08 09:04:00 Test Item Value Reference Range Interpretation Comments Hgb (test code = Hgb) 9.0 12.0-16.0 [place] [address]-02-08 09:04:00 Test Item Value Reference Range Interpretation Comments Hct (test code = Hct) 27.8 36.0-48.0 [place] [address]-02-08 09:04:00 Test Item Value Reference Range Interpretation Comments MCV (test code = MCV) 82.2 80.0-98.0 [place] [address]-02-08 09:04:00 Test Item Value Reference Range Interpretation Comments MCH (test code = MCH) 26.7 pg 27.0-31.0 [facility] NorthwestMftlpnzGHHJAVXESC8854-48-33 09:04:00 Test Item Value Reference Range Interpretation Comments MCHC (test code = MCHC) 32.5 32.0-36.0 [place] [address]-02-08 09:04:00 Test Item Value Reference Range Interpretation Comments RDW (test code = RDW) 14.9 11.5-14.5 [facility] NorthwestUnhqnteGCDIRLBINA3842-80-22 09:04:00 Test Item Value Reference Range Interpretation Comments Platelet (test code = Platelet) 252 133-450 [facility] NorthwestIqvngkdCNDUOKSRLQ4444-96-90 09:04:00 Test Item Value Reference Range Interpretation Comments MPV (test code = MPV) 8.6 7.4-10.4 [facility] NorthwestAacnljdBPNHNPLLJL2809-71-90 09:04:00 Test Item Value Reference Range Interpretation Comments Segs (test code = Segs) 55.6 45.0-75.0 [facility] NorthwestXqdydrvYROXYPKHYB3868-30-86 09:04:00 Test Item Value Reference Range Interpretation Comments Lymphocytes (test code = Lymphocytes) 28.1 20.0-40.0 [facility] NorthwestJnntlyhXWVIDKLRNR9216-03-85 09:04:00 Test Item Value Reference Range Interpretation Comments Monocytes (test code = Monocytes) 9.2 2.0-12.0 [facility] NorthwestBxmzxhxOTZGKAMAXA2346-89-48 09:04:00 Test Item Value Reference Range Interpretation Comments Eosinophils (test code = 6.1 See_Comment [A utomated message] The Eosinophils) system which ge nerated this result tra nsmitted reference range : <=4.0. The reference r eric was not used to int erpret this result as normal/abnormal . [facility] NorthwestYeucgblOFKOTGPOCH9521-81-41 09:04:00 Test Item Value Reference Range Interpretation Comments Basophils (test code = 1.0 See_Comment [Aut omated message] The Basophils) system which ge nerated this result tra nsmitted reference range : <=1.0. The reference r eric was not used to int erpret this result as normal/abnormal . [facility] NorthwestBljigboJNUQLXBHNV5008-59-65 09:04:00 Test Item Value Reference Range Interpretation Comments Neutrophils # (test code = Neutrophils 3.7 1.5-8.1 #) [facility] NorthwestYwqucccHRVAFMZFHX8429-32-77 09:04:00 Test Item Value Reference Range Interpretation Comments Lymphocytes # (test code = Lymphocytes 1.9 1.0-5.5 #) [facility] NorthwestAzkxyizXHCXSGWWGT1217-07-36 09:04:00 Test Item Value Reference Range Interpretation Comments Monocytes # (test code 0.6 See_Comment [Aut omated message] The = Monocytes #) system which generated this result tra nsmitted reference range : <=0.8. The reference r eric was not used to int erpret this result as normal/abnormal . [facility] NorthwestDemxcreJGPJFZQRLJ4074-64-59 09:04:00 Test Item Value Reference Range Interpretation Comments Eosinophils # (test code 0.4 See_Comment [A utomated message] The = Eosinophils #) system whic h generated this result tra nsmitted reference range : <=0.5. The reference r eric was not used to int erpret this result as normal/abnormal . [facility] NorthwestRpkuohjCLNAXODLRP2946-42-21 09:04:00 Test Item Value Reference Range Interpretation Comments Basophils # (test code 0.1 See_Comment [Aut omated message] The = Basophils #) system which generated this result tra nsmitted reference range : <=0.2. The reference r eric was not used to int erpret this result as normal/abnormal . [facility] [id number] 09:04:00 Test Item Value Reference Range Interpretation Comments Glucose Lvl (test code = Glucose Lvl) 92 70-99 [facility] [id number] 09:04:00 Test Item Value Reference Range Interpretation Comments BUN (test code = BUN) 15 7-22 [facility] [id number] 09:04:00 Test Item Value Reference Range Interpretation Comments Creatinine Lvl (test code = Creatinine 0.72 0.50-1.40 Lvl) [facility]2020-02-08 09:04:00 Test Item Value Reference Range Interpretation Comments Sodium Lvl (test code = Sodium Lvl) 141 135-145 [facility] [id number] 09:04:00 Test Item Value Reference Range Interpretation Comments Potassium Lvl (test code = Potassium 3.9 3.5-5.1 Lvl) [facility] [id number] 09:04:00 Test Item Value Reference Range Interpretation Comments Chloride Lvl (test code = Chloride Lvl) 110 95-109 [place] 669060-02-08 09:04:00 Test Item Value Reference Range Interpretation Comments CO2 (test code = CO2) 26 24-32 [facility] [id number] 09:04:00 Test Item Value Reference Range Interpretation Comments Calcium Lvl (test code = Calcium Lvl) 8.6 8.5-10.5 [facility] [id number] 09:04:00 Test Item Value Reference Range Interpretation Comments AGAP (test code = AGAP) 8.9 10.0-20.0 [facility] [id number] 09:04:00 Test Item Value Reference Range Interpretation Comments eGFR (test code = eGFR) 84 [facility] NorthwestDvjjywsHLONCWTSKZ5499-26-84 09:04:00 Test Item Value Reference Range Interpretation Comments WBC (test code = WBC) 6.7 3.7-10.4 [facility] NorthwestTxssutoDVWWRWUKOF0751-36-54 09:04:00 Test Item Value Reference Range Interpretation Comments RBC (test code = RBC) 3.39 4.20-5.40 [facility] NorthwestAsazcfzYOCEWFGZWA1026-41-45 09:04:00 Test Item Value Reference Range Interpretation Comments Hgb (test code = Hgb) 9.0 12.0-16.0 [facility] NorthwestFujaioaCAOMPUIIFT1307-48-21 09:04:00 Test Item Value Reference Range Interpretation Comments Hct (test code = Hct) 27.8 36.0-48.0 [facility] NorthwestZxpwjtvBFVGOIVFPJ8894-26-80 09:04:00 Test Item Value Reference Range Interpretation Comments MCV (test code = MCV) 82.2 80.0-98.0 [facility]GobnfbeSMITDKLOWG5892-23-50 09:04:00 Test Item Value Reference Range Interpretation Comments MCH (test code = MCH) 26.7 pg 27.0-31.0 [facility] HospitalPxhayjvWVEZTTIUZR4811-39-43 09:04:00 Test Item Value Reference Range Interpretation Comments MCHC (test code = MCHC) 32.5 32.0-36.0 [facility] NorthwestLsdrmjkSEDNVCVJWR5186-95-06 09:04:00 Test Item Value Reference Range Interpretation Comments RDW (test code = RDW) 14.9 11.5-14.5 [facility] NorthwestDsdyopiPLBGGFNNKI5234-48-83 09:04:00 Test Item Value Reference Range Interpretation Comments Platelet (test code = Platelet) 252 133-450 [facility] NorthwestVpazrwrAXQKPMABBX6758-20-78 09:04:00 Test Item Value Reference Range Interpretation Comments MPV (test code = MPV) 8.6 7.4-10.4 [facility] NorthwestGvpaawvEWWDUNXTHQ5232-43-41 09:04:00 Test Item Value Reference Range Interpretation Comments Segs (test code = Segs) 55.6 45.0-75.0 [facility] NorthwestSzylvohECFCBMGPHA8007-70-44 09:04:00 Test Item Value Reference Range Interpretation Comments Lymphocytes (test code = Lymphocytes) 28.1 20.0-40.0 [facility] NorthwestUelfqnoPZMOVSMMQG7828-95-57 09:04:00 Test Item Value Reference Range Interpretation Comments Monocytes (test code = Monocytes) 9.2 2.0-12.0 [facility] NorthwestVxbdydkZBCPCPBTIH8697-53-84 09:04:00 Test Item Value Reference Range Interpretation Comments Eosinophils (test code = 6.1 See_Comment [A utomated message] The Eosinophils) system which ge nerated this result tra nsmitted reference range : <=4.0. The reference r eric was not used to int erpret this result as normal/abnormal . [facility] NorthwestGqghxszQFBHPPOSEB1169-15-16 09:04:00 Test Item Value Reference Range Interpretation Comments Basophils (test code = 1.0 See_Comment [Aut omated message] The Basophils) system which ge nerated this result tra nsmitted reference range : <=1.0. The reference r eric was not used to int erpret this result as normal/abnormal . [facility] NorthwestZyxktalMNGWMCPABP7810-66-93 09:04:00 Test Item Value Reference Range Interpretation Comments Neutrophils # (test code = Neutrophils 3.7 1.5-8.1 #) [facility] NorthwestUjvvlzrFFOPHCIDSU5694-24-56 09:04:00 Test Item Value Reference Range Interpretation Comments Lymphocytes # (test code = Lymphocytes 1.9 1.0-5.5 #) [facility] NorthwestVstucpuKOVFEROHSO2727-48-08 09:04:00 Test Item Value Reference Range Interpretation Comments Monocytes # (test code 0.6 See_Comment [Aut omated message] The = Monocytes #) system which generated this result tra nsmitted reference range : <=0.8. The reference r eric was not used to int erpret this result as normal/abnormal . [facility] NorthwestTxieznpNLHBTZHSCU7449-67-97 09:04:00 Test Item Value Reference Range Interpretation Comments Eosinophils # (test code 0.4 See_Comment [A utomated message] The = Eosinophils #) system whic h generated this result tra nsmitted reference range : <=0.5. The reference r eric was not used to int erpret this result as normal/abnormal . [facility] HospitalDvmyaldPOVCWFNTYO3775-88-25 09:04:00 Test Item Value Reference Range Interpretation Comments Basophils # (test code 0.1 See_Comment [Aut omated message] The = Basophils #) system which generated this result tra nsmitted reference range : <=0.2. The reference r eric was not used to int erpret this result as normal/abnormal . [facility] [id number] 09:04:00 Test Item Value Reference Range Interpretation Comments Glucose Lvl (test code = Glucose Lvl) 92 70-99 [place] 669060-02-08 09:04:00 Test Item Value Reference Range Interpretation Comments BUN (test code = BUN) 15 7-22 [facility]2020-02-08 09:04:00 Test Item Value Reference Range Interpretation Comments Creatinine Lvl (test code = Creatinine 0.72 0.50-1.40 Lvl) [facility]2020-02-08 09:04:00 Test Item Value Reference Range Interpretation Comments Sodium Lvl (test code = Sodium Lvl) 141 135-145 [facility] [id number] 09:04:00 Test Item Value Reference Range Interpretation Comments Potassium Lvl (test code = Potassium 3.9 3.5-5.1 Lvl) [facility]2020-02-08 09:04:00 Test Item Value Reference Range Interpretation Comments Chloride Lvl (test code = Chloride Lvl) 110 95-109 [facility] [id number] 09:04:00 Test Item Value Reference Range Interpretation Comments CO2 (test code = CO2) 26 24-32 [facility] [id number] 09:04:00 Test Item Value Reference Range Interpretation Comments Calcium Lvl (test code = Calcium Lvl) 8.6 8.5-10.5 [place] 669060-02-08 09:04:00 Test Item Value Reference Range Interpretation Comments AGAP (test code = AGAP) 8.9 10.0-20.0 [facility] [id number] 09:04:00 Test Item Value Reference Range Interpretation Comments eGFR (test code = eGFR) 84 [place] [address]1990-02-08 09:04:00 Test Item Value Reference Range Interpretation Comments WBC (test code = WBC) 6.7 3.7-10.4 [facility] NorthwestMvjivizYDGINJPFVL1211-41-13 09:04:00 Test Item Value Reference Range Interpretation Comments RBC (test code = RBC) 3.39 4.20-5.40 [facility] NorthwestSfziqghUKBYAJSUVS2026-45-52 09:04:00 Test Item Value Reference Range Interpretation Comments Hgb (test code = Hgb) 9.0 12.0-16.0 [facility] NorthwestNrkyoxuIQVXXLDZVZ3182-05-20 09:04:00 Test Item Value Reference Range Interpretation Comments Hct (test code = Hct) 27.8 36.0-48.0 [facility] NorthwestNyttaqvKQZNQSZDFC4278-53-64 09:04:00 Test Item Value Reference Range Interpretation Comments MCV (test code = MCV) 82.2 80.0-98.0 [facility] NorthwestMoveglsVMGCPIVRBW1722-75-06 09:04:00 Test Item Value Reference Range Interpretation Comments MCH (test code = MCH) 26.7 pg 27.0-31.0 [facility] NorthwestAjzjzsoELAKAQGCCV8272-63-86 09:04:00 Test Item Value Reference Range Interpretation Comments MCHC (test code = MCHC) 32.5 32.0-36.0 [facility] NorthwestQxodnowSBTZITJUEO5016-09-53 09:04:00 Test Item Value Reference Range Interpretation Comments RDW (test code = RDW) 14.9 11.5-14.5 [facility] NorthwestLqvluxlCPNEPDFUYW2520-36-19 09:04:00 Test Item Value Reference Range Interpretation Comments Platelet (test code = Platelet) 252 133-450 [facility] NorthwestUkzkjpmIAFLAFDHNA0952-94-03 09:04:00 Test Item Value Reference Range Interpretation Comments MPV (test code = MPV) 8.6 7.4-10.4 [facility] NorthwestSxzexoyWYQVCDGYNT5453-86-87 09:04:00 Test Item Value Reference Range Interpretation Comments Segs (test code = Segs) 55.6 45.0-75.0 [facility] NorthwestYkkljfrGZBEWDUQVO0162-62-12 09:04:00 Test Item Value Reference Range Interpretation Comments Lymphocytes (test code = Lymphocytes) 28.1 20.0-40.0 [facility] NorthwestErcmgncCIEUQEJVOI3218-13-48 09:04:00 Test Item Value Reference Range Interpretation Comments Monocytes (test code = Monocytes) 9.2 2.0-12.0 [place] [address]-02-08 09:04:00 Test Item Value Reference Range Interpretation Comments Eosinophils (test code = 6.1 See_Comment [A utomated message] The Eosinophils) system which ge nerated this result tra nsmitted reference range : <=4.0. The reference r eric was not used to int erpret this result as normal/abnormal . [facility] NorthwestIggvbzxBIIHUDJGBI8425-03-72 09:04:00 Test Item Value Reference Range Interpretation Comments Basophils (test code = 1.0 See_Comment [Aut omated message] The Basophils) system which ge nerated this result tra nsmitted reference range : <=1.0. The reference r eric was not used to int erpret this result as normal/abnormal . [place] [address]-02-08 09:04:00 Test Item Value Reference Range Interpretation Comments Neutrophils # (test code = Neutrophils 3.7 1.5-8.1 #) [facility] NorthwestUbeunelKNAYYOPYUW6541-96-38 09:04:00 Test Item Value Reference Range Interpretation Comments Lymphocytes # (test code = Lymphocytes 1.9 1.0-5.5 #) [facility] NorthwestAiqzkbfMGNKQJXKXW7325-72-54 09:04:00 Test Item Value Reference Range Interpretation Comments Monocytes # (test code 0.6 See_Comment [Aut omated message] The = Monocytes #) system which generated this result tra nsmitted reference range : <=0.8. The reference r eric was not used to int erpret this result as normal/abnormal . [facility] NorthwestInyvxoeKBQSWMBHII0242-70-78 09:04:00 Test Item Value Reference Range Interpretation Comments Eosinophils # (test code 0.4 See_Comment [A utomated message] The = Eosinophils #) system whic h generated this result tra nsmitted reference range : <=0.5. The reference r eric was not used to int erpret this result as normal/abnormal . [facility] NorthwestImnnqmsAABTPMIBPI9788-85-68 09:04:00 Test Item Value Reference Range Interpretation Comments Basophils # (test code 0.1 See_Comment [Aut omated message] The = Basophils #) system which generated this result tra nsmitted reference range : <=0.2. The reference r eric was not used to int erpret this result as normal/abnormal . [facility]2020-02-07 09:19:00 Test Item Value Reference Range Interpretation Comments Glucose Lvl (test code = Glucose Lvl) 72 70-99 [facility] [facility]2020-02-07 09:19:00 Test Item Value Reference Range Interpretation Comments BUN (test code = BUN) 20 7-22 [facility]2020-02-07 09:19:00 Test Item Value Reference Range Interpretation Comments Creatinine Lvl (test code = Creatinine 0.71 0.50-1.40 Lvl) [facility]2020-02-07 09:19:00 Test Item Value Reference Range Interpretation Comments Sodium Lvl (test code = Sodium Lvl) 141 135-145 [facility] CenterPiximBETSY [facility] HOSPITALZLCTU8209-33-24 09:19:00 Test Item Value Reference Range Interpretation Comments Potassium Lvl (test code = Potassium 4.0 3.5-5.1 Lvl) [facility] CenterPiximBETSY J[facility]IONAL HOSPITALZFBUO2096-21-22 09:19:00 Test Item Value Reference Range Interpretation Comments Chloride Lvl (test code = Chloride Lvl) 108 95-109 [facility] CenterPiximBETSY JOH[facility]ON REGIONAL HOSPITALANDXE4036-09-45 09:19:00 Test Item Value Reference Range Interpretation Comments CO2 (test code = CO2) 24 24-32 [facility]2020-02-07 09:19:00 Test Item Value Reference Range Interpretation Comments AGAP (test code = AGAP) 13.0 10.0-20.0 [facility] CenterPiximBETSY JOHNSON REGIONAL HOSPITALCNASB6908-04-41 09:19:00 Test Item Value Reference Range Interpretation Comments Calcium Lvl (test code = Calcium Lvl) 9.1 8.5-10.5 [facility]2020-02-07 09:19:00 Test Item Value Reference Range Interpretation Comments B/C Ratio (test code = B/C Ratio) 28 1 6-25 [facility]2020-02-07 09:19:00 Test Item Value Reference Range Interpretation Comments Total Protein (test code = Total 6.3 6.4-8.4 Protein) [facility]2020-02-07 09:19:00 Test Item Value Reference Range Interpretation Comments Albumin Lvl (test code = Albumin Lvl) 2.9 3.5-5.0 [facility] [id number] 09:19:00 Test Item Value Reference Range Interpretation Comments Globulin (test code = Globulin) 3.4 2.7-4.2 [facility]Play[facility] [id number] 09:19:00 Test Item Value Reference Range Interpretation Comments A/G Ratio (test code = A/G Ratio) 0.9 1 0.7-1.6 [facility] CenterPlay[facility] [id number] 09:19:00 Test Item Value Reference Range Interpretation Comments ALT (test code = ALT) 15 See_Comment [Auto mated message] The system which ge nerated this result transmit thelma reference range : <=65. The reference range was not used to interpr et this result as zana l/abnormal. [facility] [id number] 09:19:00 Test Item Value Reference Range Interpretation Comments AST (test code = AST) 16 See_Comment [Auto mated message] The system which ge nerated this result transmit thelma reference range : <=37. The reference range was not used to interpr et this result as zana l/abnormal. [facility] [id number] 09:19:00 Test Item Value Reference Range Interpretation Comments Alk Phos (test code = Alk Phos) 56 39-136 [facility] [id number] 09:19:00 Test Item Value Reference Range Interpretation Comments Bili Total (test code = Bili Total) 0.3 0.2-1.3 [facility] [id number] 09:19:00 Test Item Value Reference Range Interpretation Comments eGFR (test code = eGFR) 84 [facility] CenterUrfuzhcHOYDAAFRPI2054-31-55 09:19:00 Test Item Value Reference Range Interpretation Comments Segs (test code = Segs) 75.0 45.0-75.0 [facility] EuemkycIUAPBWACVQ4062-69-55 09:19:00 Test Item Value Reference Range Interpretation Comments Lymphocytes (test code = Lymphocytes) 14.1 20.0-40.0 [facility] CenterYnfdqmxDUYBCYUOLV1527-44-66 09:19:00 Test Item Value Reference Range Interpretation Comments Monocytes (test code = Monocytes) 8.4 2.0-12.0 [facility] RyogeuvIIGKGOLVGL5836-61-69 09:19:00 Test Item Value Reference Range Interpretation Comments Eosinophils (test code = 1.9 See_Comment [A utomated message] The Eosinophils) system which ge nerated this result tra nsmitted reference range : <=4.0. The reference r eric was not used to int erpret this result as normal/abnormal . [facility] NorthwestFhzxyglFFNZCTSLGA5297-40-54 09:19:00 Test Item Value Reference Range Interpretation Comments Basophils (test code = 0.6 See_Comment [Aut omated message] The Basophils) system which ge nerated this result tra nsmitted reference range : <=1.0. The reference r eric was not used to int erpret this result as normal/abnormal . [facility] NorthwestTlhalgeFAMNLFVNSW2280-77-47 09:19:00 Test Item Value Reference Range Interpretation Comments Neutrophils # (test code = Neutrophils 8.1 1.5-8.1 #) [facility] NorthwestAwqvqwsOSLSRZPFDN5622-17-51 09:19:00 Test Item Value Reference Range Interpretation Comments Lymphocytes # (test code = Lymphocytes 1.5 1.0-5.5 #) [facility] NorthwestDumzuoyPLFQAHMBVY7448-99-15 09:19:00 Test Item Value Reference Range Interpretation Comments Monocytes # (test code 0.9 See_Comment [Aut omated message] The = Monocytes #) system which generated this result tra nsmitted reference range : <=0.8. The reference r eric was not used to int erpret this result as normal/abnormal . [facility] NorthwestWyelurxYJCBUWONYU7501-59-14 09:19:00 Test Item Value Reference Range Interpretation Comments Eosinophils # (test code 0.2 See_Comment [A utomated message] The = Eosinophils #) system [facility] generated this result tra nsmitted reference range : <=0.5. The reference r eric was not used to int erpret this result as normal/abnormal . [facility] NorthwestRqcbkbwLNDFLNZYYZ6649-49-37 09:19:00 Test Item Value Reference Range Interpretation Comments Basophils # (test code 0.1 See_Comment [Aut omated message] The = Basophils #) system which generated this result tra nsmitted reference range : <=0.2. The reference r eric was not used to int erpret this result as normal/abnormal . [facility] NorthwestAwshzkfVLUDFBIIPR4810-98-47 09:19:00 Test Item Value Reference Range Interpretation Comments WBC (test code = WBC) 10.8 3.7-10.4 [place] [address]-02-07 09:19:00 Test Item Value Reference Range Interpretation Comments RBC (test code = RBC) 3.78 4.20-5.40 [place] [address]-02-07 09:19:00 Test Item Value Reference Range Interpretation Comments Hgb (test code = Hgb) 9.9 12.0-16.0 [place] [address]-02-07 09:19:00 Test Item Value Reference Range Interpretation Comments Hct (test code = Hct) 30.9 36.0-48.0 [place] [address]-02-07 09:19:00 Test Item Value Reference Range Interpretation Comments MCV (test code = MCV) 81.9 80.0-98.0 [place] 261990-02-07 09:19:00 Test Item Value Reference Range Interpretation Comments MCH (test code = MCH) 26.3 pg 27.0-31.0 [place] [address]-02-07 09:19:00 Test Item Value Reference Range Interpretation Comments MCHC (test code = MCHC) 32.1 32.0-36.0 [place] [address]-02-07 09:19:00 Test Item Value Reference Range Interpretation Comments RDW (test code = RDW) 15.2 11.5-14.5 [place] [address]-02-07 09:19:00 Test Item Value Reference Range Interpretation Comments Platelet (test code = Platelet) 298 133-450 [place] 261990-02-07 09:19:00 Test Item Value Reference Range Interpretation Comments MPV (test code = MPV) 8.2 7.4-10.4 [place] 669060-02-07 09:19:00 Test Item Value Reference Range Interpretation Comments Glucose Lvl (test code = Glucose Lvl) 72 70-99 [place] 669060-02-07 09:19:00 Test Item Value Reference Range Interpretation Comments BUN (test code = BUN) 20 7-22 [place] 669060-02-07 09:19:00 Test Item Value Reference Range Interpretation Comments Creatinine Lvl (test code = Creatinine 0.71 0.50-1.40 Lvl) [place] 669060-02-07 09:19:00 Test Item Value Reference Range Interpretation Comments Sodium Lvl (test code = Sodium Lvl) 141 135-145 [facility]2020-02-07 09:19:00 Test Item Value Reference Range Interpretation Comments Potassium Lvl (test code = Potassium 4.0 3.5-5.1 Lvl) [facility]2020-02-07 09:19:00 Test Item Value Reference Range Interpretation Comments Chloride Lvl (test code = Chloride Lvl) 108 95-109 [facility]2020-02-07 09:19:00 Test Item Value Reference Range Interpretation Comments CO2 (test code = CO2) 24 24-32 [place] 669060-02-07 09:19:00 Test Item Value Reference Range Interpretation Comments AGAP (test code = AGAP) 13.0 10.0-20.0 [facility]2020-02-07 09:19:00 Test Item Value Reference Range Interpretation Comments Calcium Lvl (test code = Calcium Lvl) 9.1 8.5-10.5 [place] 669060-02-07 09:19:00 Test Item Value Reference Range Interpretation Comments B/C Ratio (test code = B/C Ratio) 28 1 6-25 [place] 669060-02-07 09:19:00 Test Item Value Reference Range Interpretation Comments Total Protein (test code = Total 6.3 6.4-8.4 Protein) [facility]2020-02-07 09:19:00 Test Item Value Reference Range Interpretation Comments Albumin Lvl (test code = Albumin Lvl) 2.9 3.5-5.0 [place] 669060-02-07 09:19:00 Test Item Value Reference Range Interpretation Comments Globulin (test code = Globulin) 3.4 2.7-4.2 [place] 669060-02-07 09:19:00 Test Item Value Reference Range Interpretation Comments A/G Ratio (test code = A/G Ratio) 0.9 1 0.7-1.6 [place] 669060-02-07 09:19:00 Test Item Value Reference Range Interpretation Comments ALT (test code = ALT) 15 See_Comment [Auto mated message] The system which ge nerated this result transmit thelma reference range : <=65. The reference range was not used to interpr et this result as zana l/abnormal. [facility]2020-02-07 09:19:00 Test Item Value Reference Range Interpretation Comments AST (test code = AST) 16 See_Comment [Auto mated message] The system which ge nerated this result transmit thelma reference range : <=37. The reference range was not used to interpr et this result as zana l/abnormal. [place] 669060-02-07 09:19:00 Test Item Value Reference Range Interpretation Comments Alk Phos (test code = Alk Phos) 56 39-136 [place] 669060-02-07 09:19:00 Test Item Value Reference Range Interpretation Comments Bili Total (test code = Bili Total) 0.3 0.2-1.3 [place] [address]-02-07 09:19:00 Test Item Value Reference Range Interpretation Comments eGFR (test code = eGFR) 84 [facility] NorthwestUzjptclCOTBEBKRWL6922-05-44 09:19:00 Test Item Value Reference Range Interpretation Comments Segs (test code = Segs) 75.0 45.0-75.0 [place] 261990-02-07 09:19:00 Test Item Value Reference Range Interpretation Comments Lymphocytes (test code = Lymphocytes) 14.1 20.0-40.0 [place] [address]-02-07 09:19:00 Test Item Value Reference Range Interpretation Comments Monocytes (test code = Monocytes) 8.4 2.0-12.0 [facility] NorthwestNaufurdKVENNWNWPV7745-50-19 09:19:00 Test Item Value Reference Range Interpretation Comments Eosinophils (test code = 1.9 See_Comment [A utomated message] The Eosinophils) system which ge nerated this result tra nsmitted reference range : <=4.0. The reference r eric was not used to int erpret this result as normal/abnormal . [place] 261990-02-07 09:19:00 Test Item Value Reference Range Interpretation Comments Basophils (test code = 0.6 See_Comment [Aut omated message] The Basophils) system which ge nerated this result tra nsmitted reference range : <=1.0. The reference r eric was not used to int erpret this result as normal/abnormal . [place] [address]-02-07 09:19:00 Test Item Value Reference Range Interpretation Comments Neutrophils # (test code = Neutrophils 8.1 1.5-8.1 #) [facility] NorthwestYynkqkrERDDXFUWWF4899-29-14 09:19:00 Test Item Value Reference Range Interpretation Comments Lymphocytes # (test code = Lymphocytes 1.5 1.0-5.5 #) [facility] NorthwestDwoomaeRLOWOFVLPR2479-72-17 09:19:00 Test Item Value Reference Range Interpretation Comments Monocytes # (test code 0.9 See_Comment [Aut omated message] The = Monocytes #) system which generated this result tra nsmitted reference range : <=0.8. The reference r eric was not used to int erpret this result as normal/abnormal . [facility] NorthwestFcmkfxpHTJSRKBERN3121-17-49 09:19:00 Test Item Value Reference Range Interpretation Comments Eosinophils # (test code 0.2 See_Comment [A utomated message] The = Eosinophils #) system whic h generated this result tra nsmitted reference range : <=0.5. The reference r eric was not used to int erpret this result as normal/abnormal . [facility] NorthwestAvidnmwAICVVWIFOL7945-59-18 09:19:00 Test Item Value Reference Range Interpretation Comments Basophils # (test code 0.1 See_Comment [Aut omated message] The = Basophils #) system which generated this result tra nsmitted reference range : <=0.2. The reference r eric was not used to int erpret this result as normal/abnormal . [facility] NorthwestGktoscaFETVDGSPGK8661-17-29 09:19:00 Test Item Value Reference Range Interpretation Comments WBC (test code = WBC) 10.8 3.7-10.4 [facility] NorthwestMamordiLTFXHZZEJG5063-58-19 09:19:00 Test Item Value Reference Range Interpretation Comments RBC (test code = RBC) 3.78 4.20-5.40 [facility] NorthwestOezdtzvGJVXYRUMNP8754-14-21 09:19:00 Test Item Value Reference Range Interpretation Comments Hgb (test code = Hgb) 9.9 12.0-16.0 [facility] NorthwestZxphajcFSPIDECMTQ3759-77-81 09:19:00 Test Item Value Reference Range Interpretation Comments Hct (test code = Hct) 30.9 36.0-48.0 [facility] NorthwestOjkhqlpVWHSCIXHHD7511-01-92 09:19:00 Test Item Value Reference Range Interpretation Comments MCV (test code = MCV) 81.9 80.0-98.0 [place] [address]1990-02-07 09:19:00 Test Item Value Reference Range Interpretation Comments MCH (test code = MCH) 26.3 pg 27.0-31.0 [facility] NorthwestOwlhgvoFUWBBPFQPF7526-21-57 09:19:00 Test Item Value Reference Range Interpretation Comments MCHC (test code = MCHC) 32.1 32.0-36.0 [facility] NorthwestNhpuklbCWMANYQMTK7495-51-41 09:19:00 Test Item Value Reference Range Interpretation Comments RDW (test code = RDW) 15.2 11.5-14.5 [place] 261990-02-07 09:19:00 Test Item Value Reference Range Interpretation Comments Platelet (test code = Platelet) 298 133-450 [facility] NorthwestSdprodpJJXUPPTYHT0575-29-68 09:19:00 Test Item Value Reference Range Interpretation Comments MPV (test code = MPV) 8.2 7.4-10.4 [facility]2020-02-07 09:19:00 Test Item Value Reference Range Interpretation Comments Glucose Lvl (test code = Glucose Lvl) 72 70-99 [facility]2020-02-07 09:19:00 Test Item Value Reference Range Interpretation Comments BUN (test code = BUN) 20 7-22 [facility]2020-02-07 09:19:00 Test Item Value Reference Range Interpretation Comments Creatinine Lvl (test code = Creatinine 0.71 0.50-1.40 Lvl) [facility]2020-02-07 09:19:00 Test Item Value Reference Range Interpretation Comments Sodium Lvl (test code = Sodium Lvl) 141 135-145 [facility]2020-02-07 09:19:00 Test Item Value Reference Range Interpretation Comments Potassium Lvl (test code = Potassium 4.0 3.5-5.1 Lvl) [facility]2020-02-07 09:19:00 Test Item Value Reference Range Interpretation Comments Chloride Lvl (test code = Chloride Lvl) 108 95-109 [place] 669060-02-07 09:19:00 Test Item Value Reference Range Interpretation Comments CO2 (test code = CO2) 24 24-32 [place] 669060-02-07 09:19:00 Test Item Value Reference Range Interpretation Comments AGAP (test code = AGAP) 13.0 10.0-20.0 [facility]2020-02-07 09:19:00 Test Item Value Reference Range Interpretation Comments Calcium Lvl (test code = Calcium Lvl) 9.1 8.5-10.5 [facility]2020-02-07 09:19:00 Test Item Value Reference Range Interpretation Comments B/C Ratio (test code = B/C Ratio) 28 1 6-25 [place] 669060-02-07 09:19:00 Test Item Value Reference Range Interpretation Comments Total Protein (test code = Total 6.3 6.4-8.4 Protein) [facility]2020-02-07 09:19:00 Test Item Value Reference Range Interpretation Comments Albumin Lvl (test code = Albumin Lvl) 2.9 3.5-5.0 [facility]2020-02-07 09:19:00 Test Item Value Reference Range Interpretation Comments Globulin (test code = Globulin) 3.4 2.7-4.2 [facility]2020-02-07 09:19:00 Test Item Value Reference Range Interpretation Comments A/G Ratio (test code = A/G Ratio) 0.9 1 0.7-1.6 [facility]2020-02-07 09:19:00 Test Item Value Reference Range Interpretation Comments ALT (test code = ALT) 15 See_Comment [Auto mated message] The system which ge nerated this result transmit thelma reference range : <=65. The reference range was not used to interpr et this result as zana l/abnormal. [facility] [id number] 09:19:00 Test Item Value Reference Range Interpretation Comments AST (test code = AST) 16 See_Comment [Auto mated message] The system which ge nerated this result transmit thelma reference range : <=37. The reference range was not used to interpr et this result as zana l/abnormal. [facility]2020-02-07 09:19:00 Test Item Value Reference Range Interpretation Comments Alk Phos (test code = Alk Phos) 56 39-136 [facility] [id number] 09:19:00 Test Item Value Reference Range Interpretation Comments Bili Total (test code = Bili Total) 0.3 0.2-1.3 [facility]2020-02-07 09:19:00 Test Item Value Reference Range Interpretation Comments eGFR (test code = eGFR) 84 [facility] NorthwestSqrqoxnGFRJRRAHIP0996-34-94 09:19:00 Test Item Value Reference Range Interpretation Comments Segs (test code = Segs) 75.0 45.0-75.0 [facility] NorthwestPratsxsVIHUCJUPLM0620-83-48 09:19:00 Test Item Value Reference Range Interpretation Comments Lymphocytes (test code = Lymphocytes) 14.1 20.0-40.0 [facility] NorthwestKqellybONLNRNAIZE8406-03-41 09:19:00 Test Item Value Reference Range Interpretation Comments Monocytes (test code = Monocytes) 8.4 2.0-12.0 [facility] NorthwestPzqtugdUBSKHMXQQM4094-20-67 09:19:00 Test Item Value Reference Range Interpretation Comments Eosinophils (test code = 1.9 See_Comment [A utomated message] The Eosinophils) system which ge nerated this result tra nsmitted reference range : <=4.0. The reference r eric was not used to int erpret this result as normal/abnormal . [facility] NorthwestGpwqqfmTATINGXMLM8932-41-68 09:19:00 Test Item Value Reference Range Interpretation Comments Basophils (test code = 0.6 See_Comment [Aut omated message] The Basophils) system which ge nerated this result tra nsmitted reference range : <=1.0. The reference r eric was not used to int erpret this result as normal/abnormal . [facility] NorthwestOppmzcjYTGJRGVSMK8865-73-41 09:19:00 Test Item Value Reference Range Interpretation Comments Neutrophils # (test code = Neutrophils 8.1 1.5-8.1 #) [facility] NorthwestZvaumlxWOWLZQFMVT1651-03-60 09:19:00 Test Item Value Reference Range Interpretation Comments Lymphocytes # (test code = Lymphocytes 1.5 1.0-5.5 #) [facility] NorthwestThvcnmcXIHANXJJNJ9061-92-37 09:19:00 Test Item Value Reference Range Interpretation Comments Monocytes # (test code 0.9 See_Comment [Aut omated message] The = Monocytes #) system which generated this result tra nsmitted reference range : <=0.8. The reference r eric was not used to int erpret this result as normal/abnormal . [facility] NorthwestCdkyvpmQWXMVVCEJZ3374-46-07 09:19:00 Test Item Value Reference Range Interpretation Comments Eosinophils # (test code 0.2 See_Comment [A utomated message] The = Eosinophils #) system whic h generated this result tra nsmitted reference range : <=0.5. The reference r eric was not used to int erpret this result as normal/abnormal . [facility] NorthwestDdkqzvaNKGTUGSMOK3183-63-04 09:19:00 Test Item Value Reference Range Interpretation Comments Basophils # (test code 0.1 See_Comment [Aut omated message] The = Basophils #) system which generated this result tra nsmitted reference range : <=0.2. The reference r eric was not used to int erpret this result as normal/abnormal . [facility] NorthwestZgkochaBTIYEMESZC2153-88-31 09:19:00 Test Item Value Reference Range Interpretation Comments WBC (test code = WBC) 10.8 3.7-10.4 [facility] NorthwestEflwowkXXMXWYKKSO6866-27-31 09:19:00 Test Item Value Reference Range Interpretation Comments RBC (test code = RBC) 3.78 4.20-5.40 [facility] NorthwestJqotpemHNLVDEYGXF4623-84-56 09:19:00 Test Item Value Reference Range Interpretation Comments Hgb (test code = Hgb) 9.9 12.0-16.0 [facility] NorthwestNtiuhaeASOYFCWVXS8456-19-40 09:19:00 Test Item Value Reference Range Interpretation Comments Hct (test code = Hct) 30.9 36.0-48.0 [facility] NorthwestHmuarcvFSNNENJQZW0170-83-23 09:19:00 Test Item Value Reference Range Interpretation Comments MCV (test code = MCV) 81.9 80.0-98.0 [facility] NorthwestQexwtanRWXFJKYKPM1515-72-22 09:19:00 Test Item Value Reference Range Interpretation Comments MCH (test code = MCH) 26.3 pg 27.0-31.0 [facility] NorthwestJnlekciBZLVDZZNZM3156-04-98 09:19:00 Test Item Value Reference Range Interpretation Comments MCHC (test code = MCHC) 32.1 32.0-36.0 [facility] NorthwestOzydermFWNKMVLGAA2314-01-96 09:19:00 Test Item Value Reference Range Interpretation Comments RDW (test code = RDW) 15.2 11.5-14.5 [facility] NorthwestDmiicbyMWNEHIFZPO7914-00-40 09:19:00 Test Item Value Reference Range Interpretation Comments Platelet (test code = Platelet) 298 133-450 [facility]nquofnNAZVSOBQUJ3900-80-17 09:19:00 Test Item Value Reference Range Interpretation Comments MPV (test code = MPV) 8.2 7.4-10.4 [facility] [id number] 08:04:00 Test Item Value Reference Range Interpretation Comments UA Ketones (test code = UA Ketones) 20 mg/dL [facility] [id number] 08:04:00 Test Item Value Reference Range Interpretation Comments UA Bili (test code = Negative *NA*(10/21/19 UA Bili) 2:04 AM) [facility] [id number] 08:04:00 Test Item Value Reference Range Interpretation Comments UA Blood (test code = Negative (10/21/19 2:04 UA Blood) AM) [facility] [id number] 08:04:00 Test Item Value Reference Range Interpretation Comments UA Nitrite (test code Negative (10/21/19 2:04 = UA Nitrite) AM) [facility] [id number] 08:04:00 Test Item Value Reference Range Interpretation Comments UA Leuk Est (test Negative (10/21/19 2:04 code = UA Leuk Est) AM) [facility] [id number] 08:04:00 Test Item Value Reference Range Interpretation Comments UA Sq Epi (test code = UA Sq Epi) Few /LPF [facility] AND [id number] 08:04:00 Test Item Value Reference Range Interpretation Comments UA WBC (test code = 4 See_Comment [Automa thelma message] The UA WBC) system which ge nerated this result transmit thelma reference range : <=5. The reference range was not used to interpr et this result as zana l/abnormal. [facility] [id number] 08:04:00 Test Item Value Reference Range Interpretation Comments UA RBC (test code = 1 See_Comment [Automa thelma message] The UA RBC) system which ge nerated this result transmit thelma reference range : <=2. The reference range was not used to interpr et this result as zana l/abnormal. [facility] [id number] 08:04:00 Test Item Value Reference Range Interpretation Comments UA Bacteria (test code = UA Occasional /HPF Bacteria) [facility] AND [id number] 08:04:00 Test Item Value Reference Range Interpretation Comments UA Hyal Cast (test 1 See_Comment [Automat ed message] The code = UA Hyal Cast) system which generated this result transmit thelma reference range : <=2. The reference range was not used to interpr et this result as zana l/abnormal. [facility] AND [id number] 08:04:00 Test Item Value Reference Range Interpretation Comments UA Color (test code = UA Color) YELLOW [facility] AND [id number] 08:04:00 Test Item Value Reference Range Interpretation Comments UA Urobilinogen (test code = UA <=1.0 mg/dL 0.1-1.0 Urobilinogen) [facility] AND [id number] 08:04:00 Test Item Value Reference Range Interpretation Comments UA Turbidity (test code = Clear (10/21/19 2:04 UA Turbidity) AM) [facility] AND [id number] 08:04:00 Test Item Value Reference Range Interpretation Comments UA Spec Grav (test code = UA Spec 1.033 1 Grav) [facility] AND [id number] 08:04:00 Test Item Value Reference Range Interpretation Comments UA pH (test code = UA pH) 8.0 1 5.0-8.0 [facility] AND [id number] 08:04:00 Test Item Value Reference Range Interpretation Comments UA Protein (test code = UA Negative mg/dL Protein) [facility] AND [id number] 08:04:00 Test Item Value Reference Range Interpretation Comments UA Glucose (test code = UA Negative mg/dL Glucose) [facility] AND [id number] 08:04:00 Test Item Value Reference Range Interpretation Comments UA Ketones (test code = UA Ketones) 20 mg/dL [facility] AND [id number] 08:04:00 Test Item Value Reference Range Interpretation Comments UA Bili (test code = Negative *NA*(10/21/19 UA Bili) 2:04 AM) [facility] AND [id number] 08:04:00 Test Item Value Reference Range Interpretation Comments UA Blood (test code = Negative (10/21/19 2:04 UA Blood) AM) [facility] AND [id number] 08:04:00 Test Item Value Reference Range Interpretation Comments UA Nitrite (test code Negative (10/21/19 2:04 = UA Nitrite) AM) [facility] AND [id number] 08:04:00 Test Item Value Reference Range Interpretation Comments UA Leuk Est (test Negative (10/21/19 2:04 code = UA Leuk Est) AM) [facility] AND [id number] 08:04:00 Test Item Value Reference Range Interpretation Comments UA Sq Epi (test code = UA Sq Epi) Few /LPF [facility] AND [id number] 08:04:00 Test Item Value Reference Range Interpretation Comments UA WBC (test code = 4 See_Comment [Automa thelma message] The UA WBC) system which ge nerated this result transmit thelma reference range : <=5. The reference range was not used to interpr et this result as zana l/abnormal. [facility] AND [id number] 08:04:00 Test Item Value Reference Range Interpretation Comments UA RBC (test code = 1 See_Comment [Automa thelma message] The UA RBC) system which ge nerated this result transmit thelma reference range : <=2. The reference range was not used to interpr et this result as zana l/abnormal. [facility] AND [id number] 08:04:00 Test Item Value Reference Range Interpretation Comments UA Bacteria (test code = UA Occasional /HPF Bacteria) [facility] AND [id number] 08:04:00 Test Item Value Reference Range Interpretation Comments UA Hyal Cast (test 1 See_Comment [Automat ed message] The code = UA Hyal Cast) system which generated this result transmit thelma reference range : <=2. The reference range was not used to interpr et this result as zana l/abnormal. [facility] AND [id number] 08:04:00 Test Item Value Reference Range Interpretation Comments UA Color (test code = UA Color) YELLOW [facility] AND [id number] 08:04:00 Test Item Value Reference Range Interpretation Comments UA Urobilinogen (test code = UA <=1.0 mg/dL 0.1-1.0 Urobilinogen) [facility] AND [id number] 08:04:00 Test Item Value Reference Range Interpretation Comments UA Turbidity (test code = Clear (10/21/19 2:04 UA Turbidity) AM) [facility] AND [id number] 08:04:00 Test Item Value Reference Range Interpretation Comments UA Spec Grav (test code = UA Spec 1.033 1 Grav) [facility] AND [id number] 08:04:00 Test Item Value Reference Range Interpretation Comments UA pH (test code = UA pH) 8.0 1 5.0-8.0 [facility] AND [id number] 08:04:00 Test Item Value Reference Range Interpretation Comments UA Protein (test code = UA Negative mg/dL Protein) [facility] AND [id number] 08:04:00 Test Item Value Reference Range Interpretation Comments UA Glucose (test code = UA Negative mg/dL Glucose) [facility] AND [id number] 08:04:00 Test Item Value Reference Range Interpretation Comments UA Ketones (test code = UA Ketones) 20 mg/dL [facility] AND [id number] 08:04:00 Test Item Value Reference Range Interpretation Comments UA Bili (test code = Negative *NA*(10/21/19 UA Bili) 2:04 AM) [facility] AND [id number] 08:04:00 Test Item Value Reference Range Interpretation Comments UA Blood (test code = Negative (10/21/19 2:04 UA Blood) AM) [facility] AND [id number] 08:04:00 Test Item Value Reference Range Interpretation Comments UA Nitrite (test code Negative (10/21/19 2:04 = UA Nitrite) AM) [facility] AND [id number] 08:04:00 Test Item Value Reference Range Interpretation Comments UA Leuk Est (test Negative (10/21/19 2:04 code = UA Leuk Est) AM) [facility] AND [id number] 08:04:00 Test Item Value Reference Range Interpretation Comments UA Sq Epi (test code = UA Sq Epi) Few /LPF [facility] AND [id number] 08:04:00 Test Item Value Reference Range Interpretation Comments UA WBC (test code = 4 See_Comment [Automa thelma message] The UA WBC) system which ge nerated this result transmit thelma reference range : <=5. The reference range was not used to interpr et this result as zana l/abnormal. [facility] [id number] 08:04:00 Test Item Value Reference Range Interpretation Comments UA RBC (test code = 1 See_Comment [Automa thelma message] The UA RBC) system which ge nerated this result transmit thelma reference range : <=2. The reference range was not used to interpr et this result as zana l/abnormal. [facility] [id number] 08:04:00 Test Item Value Reference Range Interpretation Comments UA Bacteria (test code = UA Occasional /HPF Bacteria) [facility] [id number] 08:04:00 Test Item Value Reference Range Interpretation Comments UA Hyal Cast (test 1 See_Comment [Automat ed message] The code = UA Hyal Cast) system which generated this result transmit thelma reference range : <=2. The reference range was not used to interpr et this result as zana l/abnormal. [facility] [id number] 08:04:00 Test Item Value Reference Range Interpretation Comments UA Color (test code = UA Color) YELLOW [facility] AND [id number] 08:04:00 Test Item Value Reference Range Interpretation Comments UA Urobilinogen (test code = UA <=1.0 mg/dL 0.1-1.0 Urobilinogen) [facility] [id number] 08:04:00 Test Item Value Reference Range Interpretation Comments UA Turbidity (test code = Clear (10/21/19 2:04 UA Turbidity) AM) [facility] [id number] 08:04:00 Test Item Value Reference Range Interpretation Comments UA Spec Grav (test code = UA Spec 1.033 1 Grav) [facility] [id number] 08:04:00 Test Item Value Reference Range Interpretation Comments UA pH (test code = UA pH) 8.0 1 5.0-8.0 [facility] [id number] 08:04:00 Test Item Value Reference Range Interpretation Comments UA Protein (test code = UA Negative mg/dL Protein) [facility] [id number] 08:04:00 Test Item Value Reference Range Interpretation Comments UA Glucose (test code = UA Negative mg/dL Glucose) [facility] [id number] 18:55:00 Test Item Value Reference Range Interpretation Comments Troponin-I (test code no gt See_Comment [Auto mated message] The = Troponin-I) system which g enerated this result transmit thelma reference range : <=0.40. The reference r eric was not used to interpr et this result as zana l/abnormal. [facility] [id number] 18:55:00 Test Item Value Reference Range Interpretation Comments Glucose Lvl (test code = Glucose Lvl) 113 70-99 [facility]2020-02-06 18:55:00 Test Item Value Reference Range Interpretation Comments BUN (test code = BUN) 26 7-22 [facility]2020-02-06 18:55:00 Test Item Value Reference Range Interpretation Comments Creatinine Lvl (test code = Creatinine 0.82 0.50-1.40 Lvl) [facility] [id number] 18:55:00 Test Item Value Reference Range Interpretation Comments Sodium Lvl (test code = Sodium Lvl) 140 135-145 [facility]2020-02-06 18:55:00 Test Item Value Reference Range Interpretation Comments Potassium Lvl (test code = Potassium 3.8 3.5-5.1 Lvl) [facility] [id number] 18:55:00 Test Item Value Reference Range Interpretation Comments Chloride Lvl (test code = Chloride Lvl) 104 95-109 [facility] [id number] 18:55:00 Test Item Value Reference Range Interpretation Comments CO2 (test code = CO2) 30 24-32 [facility] [id number] 18:55:00 Test Item Value Reference Range Interpretation Comments Calcium Lvl (test code = Calcium Lvl) 9.7 8.5-10.5 [facility]2020-02-06 18:55:00 Test Item Value Reference Range Interpretation Comments Total Protein (test code = Total 7.3 6.4-8.4 Protein) [facility]2020-02-06 18:55:00 Test Item Value Reference Range Interpretation Comments Albumin Lvl (test code = Albumin Lvl) 3.4 3.5-5.0 [facility] [id number] 18:55:00 Test Item Value Reference Range Interpretation Comments ALT (test code = ALT) 18 See_Comment [Auto mated message] The system which ge nerated this result transmit thelma reference range : <=65. The reference range was not used to interpr et this result as zana l/abnormal. [facility] [id number] 18:55:00 Test Item Value Reference Range Interpretation Comments AST (test code = AST) 17 See_Comment [Auto mated message] The system which ge nerated this result transmit thelma reference range : <=37. The reference range was not used to interpr et this result as zana l/abnormal. [facility] [id number] 18:55:00 Test Item Value Reference Range Interpretation Comments Alk Phos (test code = Alk Phos) 66 39-136 [facility] [id number] 18:55:00 Test Item Value Reference Range Interpretation Comments Bili Total (test code = Bili Total) 0.4 0.2-1.3 [facility] [id number] 18:55:00 Test Item Value Reference Range Interpretation Comments AGAP (test code = AGAP) 9.8 10.0-20.0 [facility] [id number] 18:55:00 Test Item Value Reference Range Interpretation Comments B/C Ratio (test code = B/C Ratio) 32 1 6-25 [facility] [id number] 18:55:00 Test Item Value Reference Range Interpretation Comments Globulin (test code = Globulin) 3.9 2.7-4.2 [facility] [id number] 18:55:00 Test Item Value Reference Range Interpretation Comments A/G Ratio (test code = A/G Ratio) 0.9 1 0.7-1.6 [facility] [id number] 18:55:00 Test Item Value Reference Range Interpretation Comments eGFR (test code = eGFR) 71 [facility] [id number] 18:55:00 Test Item Value Reference Range Interpretation Comments Lipase Lvl (test code = Lipase Lvl) 271 78-393 [facility]2020-02-06 18:55:00 Test Item Value Reference Range Interpretation Comments Lactic Acid Lvl (test code = Lactic 1.1 0.5-2.2 Acid Lvl) [id number] 18:55:00 Test Item Value Reference Range Interpretation Comments WBC (test code = WBC) 14.3 3.7-10.4 [facility] No[id number] 18:55:00 Test Item Value Reference Range Interpretation Comments RBC (test code = RBC) 4.34 4.20-5.40 [facility] [id number] 18:55:00 Test Item Value Reference Range Interpretation Comments Hgb (test code = Hgb) 11.4 12.0-16.0 [facility] [id number] 18:55:00 Test Item Value Reference Range Interpretation Comments Hct (test code = Hct) 35.6 36.0-48.0 [facility] No[id number] 18:55:00 Test Item Value Reference Range Interpretation Comments MCV (test code = MCV) 82.1 80.0-98.0 [facility] [id number] 18:55:00 Test Item Value Reference Range Interpretation Comments MCH (test code = MCH) 26.4 pg 27.0-31.0 [facility] No[id number] 18:55:00 Test Item Value Reference Range Interpretation Comments MCHC (test code = MCHC) 32.1 32.0-36.0 [facility] No[id number] 18:55:00 Test Item Value Reference Range Interpretation Comments RDW (test code = RDW) 15.2 11.5-14.5 [place] [address]-02-06 18:55:00 Test Item Value Reference Range Interpretation Comments Platelet (test code = Platelet) 349 133450 [facility] N[id number] 18:55:00 Test Item Value Reference Range Interpretation Comments MPV (test code = MPV) 8.1 7.4-10.4 [facility] N[id number] 18:55:00 Test Item Value Reference Range Interpretation Comments PT (test code = PT) 14.0 s 12.0-14.7 [place] [address]-02-06 18:55:00 Test Item Value Reference Range Interpretation Comments INR (test code = INR) 1.08 1 0.85-1.17 [place] [address]-02-06 18:55:00 Test Item Value Reference Range Interpretation Comments Segs (test code = Segs) 85.8 45.0-75.0 [place] [address]-02-06 18:55:00 Test Item Value Reference Range Interpretation Comments Lymphocytes (test code = Lymphocytes) 7.6 20.0-40.0 [place] [address]-02-06 18:55:00 Test Item Value Reference Range Interpretation Comments Monocytes (test code = Monocytes) 5.9 2.0-12.0 [place] [address]-02-06 18:55:00 Test Item Value Reference Range Interpretation Comments Eosinophils (test code = 0.4 See_Comment [A utomated message] The Eosinophils) system which ge nerated this result tra nsmitted reference range : <=4.0. The reference r eric was not used to int erpret this result as normal/abnormal . [place] [address]-02-06 18:55:00 Test Item Value Reference Range Interpretation Comments Basophils (test code = 0.3 See_Comment [Aut omated message] The Basophils) system which ge nerated this result tra nsmitted reference range : <=1.0. The reference r eric was not used to int erpret this result as normal/abnormal . [facility] N[id number] 18:55:00 Test Item Value Reference Range Interpretation Comments Neutrophils # (test code = Neutrophils 12.3 1.5-8.1 #) [place] [address]-02-06 18:55:00 Test Item Value Reference Range Interpretation Comments Lymphocytes # (test code = Lymphocytes 1.1 1.0-5.5 #) [place] [address]-02-06 18:55:00 Test Item Value Reference Range Interpretation Comments Monocytes # (test code 0.8 See_Comment [Aut omated message] The = Monocytes #) system which generated this result tra nsmitted reference range : <=0.8. The reference r eric was not used to int erpret this result as normal/abnormal . [place] [address]-02-06 18:55:00 Test Item Value Reference Range Interpretation Comments Eosinophils # (test code 0.1 See_Comment [A utomated message] The = Eosinophils #) system whic h generated this result tra nsmitted reference range : <=0.5. The reference r eric was not used to int erpret this result as normal/abnormal . [facility] EMUZECARDI[facility] [id number] 18:55:00 Test Item Value Reference Range Interpretation Comments Troponin-I (test code no gt See_Comment [Auto mated message] The = Troponin-I) system which g enerated this result transmit thelma reference range : <=0.40. The reference r eric was not used to interpr et this result as zana l/abnormal. [facility] [id number] 18:55:00 Test Item Value Reference Range Interpretation Comments Glucose Lvl (test code = Glucose Lvl) 113 70-99 [facility] [id number] 18:55:00 Test Item Value Reference Range Interpretation Comments BUN (test code = BUN) 26 7-22 [facility] [id number] 18:55:00 Test Item Value Reference Range Interpretation Comments Creatinine Lvl (test code = Creatinine 0.82 0.50-1.40 Lvl) [facility] [id number] 18:55:00 Test Item Value Reference Range Interpretation Comments Sodium Lvl (test code = Sodium Lvl) 140 135-145 [facility] [id number] 18:55:00 Test Item Value Reference Range Interpretation Comments Potassium Lvl (test code = Potassium 3.8 3.5-5.1 Lvl) [facility] [id number] 18:55:00 Test Item Value Reference Range Interpretation Comments Chloride Lvl (test code = Chloride Lvl) 104 95-109 [facility] [id number] 18:55:00 Test Item Value Reference Range Interpretation Comments CO2 (test code = CO2) 30 24-32 [facility] [id number] 18:55:00 Test Item Value Reference Range Interpretation Comments Calcium Lvl (test code = Calcium Lvl) 9.7 8.5-10.5 [facility] [id number] 18:55:00 Test Item Value Reference Range Interpretation Comments Total Protein (test code = Total 7.3 6.4-8.4 Protein) [facility] [id number] 18:55:00 Test Item Value Reference Range Interpretation Comments Albumin Lvl (test code = Albumin Lvl) 3.4 3.5-5.0 [facility] [id number] 18:55:00 Test Item Value Reference Range Interpretation Comments ALT (test code = ALT) 18 See_Comment [Auto mated message] The system which ge nerated this result transmit thelma reference range : <=65. The reference range was not used to interpr et this result as zana l/abnormal. [facility] [id number] 18:55:00 Test Item Value Reference Range Interpretation Comments AST (test code = AST) 17 See_Comment [Auto mated message] The system which ge nerated this result transmit thelma reference range : <=37. The reference range was not used to interpr et this result as zana l/abnormal. [facility] [id number] 18:55:00 Test Item Value Reference Range Interpretation Comments Alk Phos (test code = Alk Phos) 66 39-136 [facility] [id number] 18:55:00 Test Item Value Reference Range Interpretation Comments Bili Total (test code = Bili Total) 0.4 0.2-1.3 [facility] [id number] 18:55:00 Test Item Value Reference Range Interpretation Comments AGAP (test code = AGAP) 9.8 10.0-20.0 [facility] [id number] 18:55:00 Test Item Value Reference Range Interpretation Comments B/C Ratio (test code = B/C Ratio) 32 1 6-25 [facility] [id number] 18:55:00 Test Item Value Reference Range Interpretation Comments Globulin (test code = Globulin) 3.9 2.7-4.2 [facility] [id number] 18:55:00 Test Item Value Reference Range Interpretation Comments A/G Ratio (test code = A/G Ratio) 0.9 1 0.7-1.6 [facility] [id number] 18:55:00 Test Item Value Reference Range Interpretation Comments eGFR (test code = eGFR) 71 [id number] 18:55:00 Test Item Value Reference Range Interpretation Comments Lipase Lvl (test code = Lipase Lvl) 271 [address] [facility]2020-02-06 18:55:00 Test Item Value Reference Range Interpretation Comments Lactic Acid Lvl (test code = Lactic 1.1 0.5-2.2 Acid Lvl) [place] [address]-02-06 18:55:00 Test Item Value Reference Range Interpretation Comments WBC (test code = WBC) 14.3 3.7-10.4 [place] [address]-02-06 18:55:00 Test Item Value Reference Range Interpretation Comments RBC (test code = RBC) 4.34 4.20-5.40 [place] [address]-02-06 18:55:00 Test Item Value Reference Range Interpretation Comments Hgb (test code = Hgb) 11.4 12.0-16.0 [address]02-06 18:55:00 Test Item Value Reference Range Interpretation Comments Hct (test code = Hct) 35.6 36.0-48.0 [place] [address]-02-06 18:55:00 Test Item Value Reference Range Interpretation Comments MCV (test code = MCV) 82.1 80.0-98.0 [place] [address]-02-06 18:55:00 Test Item Value Reference Range Interpretation Comments MCH (test code = MCH) 26.4 pg 27.0-31.0 [place] [address]-02-06 18:55:00 Test Item Value Reference Range Interpretation Comments MCHC (test code = MCHC) 32.1 32.0-36.0 [place] [address]-02-06 18:55:00 Test Item Value Reference Range Interpretation Comments RDW (test code = RDW) 15.2 11.5-14.5 [place] [address]-02-06 18:55:00 Test Item Value Reference Range Interpretation Comments Platelet (test code = Platelet) 349 133450 [place] [address]-02-06 18:55:00 Test Item Value Reference Range Interpretation Comments MPV (test code = MPV) 8.1 7.4-10.4 [place] [address]-02-06 18:55:00 Test Item Value Reference Range Interpretation Comments PT (test code = PT) 14.0 s 12.0-14.7 [place] [address]-02-06 18:55:00 Test Item Value Reference Range Interpretation Comments INR (test code = INR) 1.08 1 0.85-1.17 [place] [address]-02-06 18:55:00 Test Item Value Reference Range Interpretation Comments Segs (test code = Segs) 85.8 45.0-75.0 [place] [address]-02-06 18:55:00 Test Item Value Reference Range Interpretation Comments Lymphocytes (test code = Lymphocytes) 7.6 20.0-40.0 [place] [address]-02-06 18:55:00 Test Item Value Reference Range Interpretation Comments Monocytes (test code = Monocytes) 5.9 2.0-12.0 [place] [address]-02-06 18:55:00 Test Item Value Reference Range Interpretation Comments Eosinophils (test code = 0.4 See_Comment [A utomated message] The Eosinophils) system which ge nerated this result tra nsmitted reference range : <=4.0. The reference r eric was not used to int erpret this result as normal/abnormal . [place] [address]-02-06 18:55:00 Test Item Value Reference Range Interpretation Comments Basophils (test code = 0.3 See_Comment [Aut omated message] The Basophils) system which ge nerated this result tra nsmitted reference range : <=1.0. The reference r eric was not used to int erpret this result as normal/abnormal . [place] [address]-02-06 18:55:00 Test Item Value Reference Range Interpretation Comments Neutrophils # (test code = Neutrophils 12.3 1.5-8.1 #) [place] [address]-02-06 18:55:00 Test Item Value Reference Range Interpretation Comments Lymphocytes # (test code = Lymphocytes 1.1 1.0-5.5 #) [place] [address]-02-06 18:55:00 Test Item Value Reference Range Interpretation Comments Monocytes # (test code 0.8 See_Comment [Aut omated message] The = Monocytes #) system which generated this result tra nsmitted reference range : <=0.8. The reference r eric was not used to int erpret this result as normal/abnormal . [id number] 18:55:00 Test Item Value Reference Range Interpretation Comments Eosinophils # (test code 0.1 See_Comment [A utomated message] The = Eosinophils #) system whic h generated this result tra nsmitted reference range : <=0.5. The reference r eric was not used to int erpret this result as normal/abnormal . [facility] [id number] 18:55:00 Test Item Value Reference Range Interpretation Comments Troponin-I (test code no gt See_Comment [Auto mated message] The = Troponin-I) system which g enerated this result transmit thelma reference range : <=0.40. The reference r eric was not used to interpr et this result as zana l/abnormal. [facility] [id number] 18:55:00 Test Item Value Reference Range Interpretation Comments Glucose Lvl (test code = Glucose Lvl) 113 70-99 [facility] [id number] 18:55:00 Test Item Value Reference Range Interpretation Comments BUN (test code = BUN) 26 7-22 [facility] [id number] 18:55:00 Test Item Value Reference Range Interpretation Comments Creatinine Lvl (test code = Creatinine 0.82 0.50-1.40 Lvl) [facility] [id number] 18:55:00 Test Item Value Reference Range Interpretation Comments Sodium Lvl (test code = Sodium Lvl) 140 135-145 [facility] [id number] 18:55:00 Test Item Value Reference Range Interpretation Comments Potassium Lvl (test code = Potassium 3.8 3.5-5.1 Lvl) [facility] [id number] 18:55:00 Test Item Value Reference Range Interpretation Comments Chloride Lvl (test code = Chloride Lvl) 104 95-109 [facility] [id number] 18:55:00 Test Item Value Reference Range Interpretation Comments CO2 (test code = CO2) 30 24-32 [facility] [id number] 18:55:00 Test Item Value Reference Range Interpretation Comments Calcium Lvl (test code = Calcium Lvl) 9.7 8.5-10.5 [facility] [id number] 18:55:00 Test Item Value Reference Range Interpretation Comments Total Protein (test code = Total 7.3 6.4-8.4 Protein) [facility] [id number] 18:55:00 Test Item Value Reference Range Interpretation Comments Albumin Lvl (test code = Albumin Lvl) 3.4 3.5-5.0 [facility] [id number] 18:55:00 Test Item Value Reference Range Interpretation Comments ALT (test code = ALT) 18 See_Comment [Auto mated message] The system which ge nerated this result transmit thelma reference range : <=65. The reference range was not used to interpr et this result as zana l/abnormal. [facility] [id number] 18:55:00 Test Item Value Reference Range Interpretation Comments AST (test code = AST) 17 See_Comment [Auto mated message] The system which ge nerated this result transmit thelma reference range : <=37. The reference range was not used to interpr et this result as zana l/abnormal. [facility] [id number] 18:55:00 Test Item Value Reference Range Interpretation Comments Alk Phos (test code = Alk Phos) 66 39-136 [facility] [id number] 18:55:00 Test Item Value Reference Range Interpretation Comments Bili Total (test code = Bili Total) 0.4 0.2-1.3 [facility] [id number] 18:55:00 Test Item Value Reference Range Interpretation Comments AGAP (test code = AGAP) 9.8 10.0-20.0 [facility] [id number] 18:55:00 Test Item Value Reference Range Interpretation Comments B/C Ratio (test code = B/C Ratio) 32 1 6-25 [facility] [id number] 18:55:00 Test Item Value Reference Range Interpretation Comments Globulin (test code = Globulin) 3.9 2.7-4.2 [facility] [id number] 18:55:00 Test Item Value Reference Range Interpretation Comments A/G Ratio (test code = A/G Ratio) 0.9 1 0.7-1.6 [facility] [id number] 18:55:00 Test Item Value Reference Range Interpretation Comments eGFR (test code = eGFR) 71 [facility]2020-02-06 18:55:00 Test Item Value Reference Range Interpretation Comments Lipase Lvl (test code = Lipase Lvl) 271 [address]93 [facility]2020-02-06 18:55:00 Test Item Value Reference Range Interpretation Comments Lactic Acid Lvl (test code = Lactic 1.1 0.5-2.2 Acid Lvl) [id number] 18:55:00 Test Item Value Reference Range Interpretation Comments WBC (test code = WBC) 14.3 3.7-10.4 [place] [address]-02-06 18:55:00 Test Item Value Reference Range Interpretation Comments RBC (test code = RBC) 4.34 4.20-5.40 [place] [address]-02-06 18:55:00 Test Item Value Reference Range Interpretation Comments Hgb (test code = Hgb) 11.4 12.0-16.0 [place] [address]-02-06 18:55:00 Test Item Value Reference Range Interpretation Comments Hct (test code = Hct) 35.6 36.0-48.0 [place] [address]-02-06 18:55:00 Test Item Value Reference Range Interpretation Comments MCV (test code = MCV) 82.1 80.0-98.0 [place] [address]-02-06 18:55:00 Test Item Value Reference Range Interpretation Comments MCH (test code = MCH) 26.4 pg 27.0-31.0 [place] [address]-02-06 18:55:00 Test Item Value Reference Range Interpretation Comments MCHC (test code = MCHC) 32.1 32.0-36.0 [place] [address]-02-06 18:55:00 Test Item Value Reference Range Interpretation Comments RDW (test code = RDW) 15.2 11.5-14.5 [place] [address]-02-06 18:55:00 Test Item Value Reference Range Interpretation Comments Platelet (test code = Platelet) 349 133-450 [place] [address]-02-06 18:55:00 Test Item Value Reference Range Interpretation Comments MPV (test code = MPV) 8.1 7.4-10.4 [place] [address]-02-06 18:55:00 Test Item Value Reference Range Interpretation Comments PT (test code = PT) 14.0 s 12.0-14.7 [place] [address]-02-06 18:55:00 Test Item Value Reference Range Interpretation Comments INR (test code = INR) 1.08 1 0.85-1.17 [place] [address]-02-06 18:55:00 Test Item Value Reference Range Interpretation Comments Segs (test code = Segs) 85.8 45.0-75.0 [place] [address]-02-06 18:55:00 Test Item Value Reference Range Interpretation Comments Lymphocytes (test code = Lymphocytes) 7.6 20.0-40.0 [place] [address]-02-06 18:55:00 Test Item Value Reference Range Interpretation Comments Monocytes (test code = Monocytes) 5.9 2.0-12.0 [place] [address]-02-06 18:55:00 Test Item Value Reference Range Interpretation Comments Eosinophils (test code = 0.4 See_Comment [A utomated message] The Eosinophils) system which ge nerated this result tra nsmitted reference range : <=4.0. The reference r eric was not used to int erpret this result as normal/abnormal . [place] [address]-02-06 18:55:00 Test Item Value Reference Range Interpretation Comments Basophils (test code = 0.3 See_Comment [Aut omated message] The Basophils) system which ge nerated this result tra nsmitted reference range : <=1.0. The reference r eric was not used to int erpret this result as normal/abnormal . [facility] No[id number] 18:55:00 Test Item Value Reference Range Interpretation Comments Neutrophils # (test code = Neutrophils 12.3 1.5-8.1 #) [place] [address]-02-06 18:55:00 Test Item Value Reference Range Interpretation Comments Lymphocytes # (test code = Lymphocytes 1.1 1.0-5.5 #) [place] [address]-02-06 18:55:00 Test Item Value Reference Range Interpretation Comments Monocytes # (test code 0.8 See_Comment [Aut omated message] The = Monocytes #) system which generated this result tra nsmitted reference range : <=0.8. The reference r eric was not used to int erpret this result as normal/abnormal . [facility] No[id number] 18:55:00 Test Item Value Reference Range Interpretation Comments Eosinophils # (test code 0.1 See_Comment [A utomated message] The = Eosinophils #) system whic h generated this result tra nsmitted reference range : <=0.5. The reference r eric was not used to int erpret this result as normal/abnormal . [facility]2020-01-22 11:45:00 Test Item Value Reference Range Interpretation Comments Glucose Lvl (test code = Glucose Lvl) 111 70-99 [place] 669060-01-22 11:45:00 Test Item Value Reference Range Interpretation Comments BUN (test code = BUN) 15 7-22 [facility]2020-01-22 11:45:00 Test Item Value Reference Range Interpretation Comments Creatinine Lvl (test code = Creatinine 0.72 0.50-1.40 Lvl) [facility]2020-01-22 11:45:00 Test Item Value Reference Range Interpretation Comments Sodium Lvl (test code = Sodium Lvl) 141 135-145 [place] 669060-01-22 11:45:00 Test Item Value Reference Range Interpretation Comments Potassium Lvl (test code = Potassium 3.4 3.5-5.1 Lvl) [facility]2020-01-22 11:45:00 Test Item Value Reference Range Interpretation Comments Chloride Lvl (test code = Chloride Lvl) 109 95-109 [place] 669060-01-22 11:45:00 Test Item Value Reference Range Interpretation Comments CO2 (test code = CO2) 26 24-32 [facility]2020-01-22 11:45:00 Test Item Value Reference Range Interpretation Comments AGAP (test code = AGAP) 9.4 10.0-20.0 [place] 669060-01-22 11:45:00 Test Item Value Reference Range Interpretation Comments Calcium Lvl (test code = Calcium Lvl) 8.4 8.5-10.5 [facility]2020-01-22 11:45:00 Test Item Value Reference Range Interpretation Comments eGFR (test code = eGFR) 84 [facility] Northwe[id number] 11:45:00 Test Item Value Reference Range Interpretation Comments WBC (test code = WBC) 8.8 3.7-10.4 [facility] NorthwestIjnzukpTVAWYQRFQB5454-21-25 11:45:00 Test Item Value Reference Range Interpretation Comments RBC (test code = RBC) 3.92 4.20-5.40 [facility] NorthwestUievqvhYWUGDKMECA5018-94-01 11:45:00 Test Item Value Reference Range Interpretation Comments Hgb (test code = Hgb) 10.3 12.0-16.0 [facility] NorthwestMutwkfhHFRVVFWLYX1264-71-95 11:45:00 Test Item Value Reference Range Interpretation Comments Hct (test code = Hct) 31.8 36.0-48.0 [facility] NorthwestTtqcddmMKTFQNWANY6333-44-61 11:45:00 Test Item Value Reference Range Interpretation Comments MCV (test code = MCV) 81.3 80.0-98.0 [facility] NorthwestNazqxifWJPBDPTWLM1287-54-59 11:45:00 Test Item Value Reference Range Interpretation Comments MCH (test code = MCH) 26.3 pg 27.0-31.0 [facility] NorthwestTxtkfidXHVEXLKAFV7540-57-83 11:45:00 Test Item Value Reference Range Interpretation Comments MCHC (test code = MCHC) 32.3 32.0-36.0 [facility] NorthwestUquahisXLCOGIGCKT4772-02-94 11:45:00 Test Item Value Reference Range Interpretation Comments RDW (test code = RDW) 14.2 11.5-14.5 [facility] NorthwestNzlagqvIEONMPNBQX9067-71-39 11:45:00 Test Item Value Reference Range Interpretation Comments Platelet (test code = Platelet) 272 133-450 [facility] NorthwestEhhqqyqLVZKCEKEXL9458-95-71 11:45:00 Test Item Value Reference Range Interpretation Comments MPV (test code = MPV) 8.1 7.4-10.4 [facility] NorthwestPruizpcBPVKRIYCMU6242-92-45 11:45:00 Test Item Value Reference Range Interpretation Comments Segs (test code = Segs) 67.0 45.0-75.0 [facility] NorthwestJvgopmrGVSDWODQXM4151-68-31 11:45:00 Test Item Value Reference Range Interpretation Comments Lymphocytes (test code = Lymphocytes) 21.6 20.0-40.0 [facility] NorthwestNicxagbWVBPYBHCJS2063-18-52 11:45:00 Test Item Value Reference Range Interpretation Comments Monocytes (test code = Monocytes) 8.2 2.0-12.0 [place] [address]-01-22 11:45:00 Test Item Value Reference Range Interpretation Comments Eosinophils (test code = 2.5 See_Comment [A utomated message] The Eosinophils) system which ge nerated this result tra nsmitted reference range : <=4.0. The reference r eric was not used to int erpret this result as normal/abnormal . [place] [address]-01-22 11:45:00 Test Item Value Reference Range Interpretation Comments Basophils (test code = 0.7 See_Comment [Aut omated message] The Basophils) system which ge nerated this result tra nsmitted reference range : <=1.0. The reference r eric was not used to int erpret this result as normal/abnormal . [place] [address]-01-22 11:45:00 Test Item Value Reference Range Interpretation Comments Neutrophils # (test code = Neutrophils 5.9 1.5-8.1 #) [place] [address]-01-22 11:45:00 Test Item Value Reference Range Interpretation Comments Lymphocytes # (test code = Lymphocytes 1.9 1.0-5.5 #) [place] [address]-01-22 11:45:00 Test Item Value Reference Range Interpretation Comments Monocytes # (test code 0.7 See_Comment [Aut omated message] The = Monocytes #) system which generated this result tra nsmitted reference range : <=0.8. The reference r eric was not used to int erpret this result as normal/abnormal . [place] [address]-01-22 11:45:00 Test Item Value Reference Range Interpretation Comments Eosinophils # (test code 0.2 See_Comment [A utomated message] The = Eosinophils #) system whic h generated this result tra nsmitted reference range : <=0.5. The reference r eric was not used to int erpret this result as normal/abnormal . [place] [address]-01-22 11:45:00 Test Item Value Reference Range Interpretation Comments Basophils # (test code 0.1 See_Comment [Aut omated message] The = Basophils #) system which generated this result tra nsmitted reference range : <=0.2. The reference r eric was not used to int erpret this result as normal/abnormal . [place] 6[address]060-01-22 11:45:00 Test Item Value Reference Range Interpretation Comments Glucose Lvl (test code = Glucose Lvl) 111 70-99 [place] 669060-01-22 11:45:00 Test Item Value Reference Range Interpretation Comments BUN (test code = BUN) 15 7-22 [place] 669060-01-22 11:45:00 Test Item Value Reference Range Interpretation Comments Creatinine Lvl (test code = Creatinine 0.72 0.50-1.40 Lvl) [place] 6[address]060-01-22 11:45:00 Test Item Value Reference Range Interpretation Comments Sodium Lvl (test code = Sodium Lvl) 141 135-145 [place] 669060-01-22 11:45:00 Test Item Value Reference Range Interpretation Comments Potassium Lvl (test code = Potassium 3.4 3.5-5.1 Lvl) [place] [address]060-01-22 11:45:00 Test Item Value Reference Range Interpretation Comments Chloride Lvl (test code = Chloride Lvl) 109 95-109 [place] 669060-01-22 11:45:00 Test Item Value Reference Range Interpretation Comments CO2 (test code = CO2) 26 24-32 [facility]2020-01-22 11:45:00 Test Item Value Reference Range Interpretation Comments AGAP (test code = AGAP) 9.4 10.0-20.0 [place] 6[address]060-01-22 11:45:00 Test Item Value Reference Range Interpretation Comments Calcium Lvl (test code = Calcium Lvl) 8.4 8.5-10.5 [place] 6[address]060-01-22 11:45:00 Test Item Value Reference Range Interpretation Comments eGFR (test code = eGFR) 84 [place] [address]-01-22 11:45:00 Test Item Value Reference Range Interpretation Comments WBC (test code = WBC) 8.8 3.7-10.4 [place] [address]-01-22 11:45:00 Test Item Value Reference Range Interpretation Comments RBC (test code = RBC) 3.92 4.20-5.40 [place] [address]-01-22 11:45:00 Test Item Value Reference Range Interpretation Comments Hgb (test code = Hgb) 10.3 12.0-16.0 [facility] NorthwestKxradqqUUVJJFVMFK6349-23-30 11:45:00 Test Item Value Reference Range Interpretation Comments Hct (test code = Hct) 31.8 36.0-48.0 [facility] NorthwestDynszogNXGRJXGKSO1550-94-56 11:45:00 Test Item Value Reference Range Interpretation Comments MCV (test code = MCV) 81.3 80.0-98.0 [facility] NorthwestSeorljuULWHOUPFUK4259-01-04 11:45:00 Test Item Value Reference Range Interpretation Comments MCH (test code = MCH) 26.3 pg 27.0-31.0 [facility] NorthwestYhooestYXXNCWMLCI5311-59-44 11:45:00 Test Item Value Reference Range Interpretation Comments MCHC (test code = MCHC) 32.3 32.0-36.0 [facility] NorthwestCwrztmvWCSFULKIZB5068-71-51 11:45:00 Test Item Value Reference Range Interpretation Comments RDW (test code = RDW) 14.2 11.5-14.5 [facility] NorthwestRhlyngiQNAFKCGZQG6998-92-07 11:45:00 Test Item Value Reference Range Interpretation Comments Platelet (test code = Platelet) 272 133-450 [facility] NorthwestAcpilidSEUTFYCRML0278-25-41 11:45:00 Test Item Value Reference Range Interpretation Comments MPV (test code = MPV) 8.1 7.4-10.4 [facility] NorthwestVykhfzzHQTXDKYRCX8492-61-22 11:45:00 Test Item Value Reference Range Interpretation Comments Segs (test code = Segs) 67.0 45.0-75.0 [facility] NorthwestXgphzhhLWRAJVTCFT9428-79-52 11:45:00 Test Item Value Reference Range Interpretation Comments Lymphocytes (test code = Lymphocytes) 21.6 20.0-40.0 [facility] NorthwestAsnrsvgADOTDFLAHK2432-03-76 11:45:00 Test Item Value Reference Range Interpretation Comments Monocytes (test code = Monocytes) 8.2 2.0-12.0 [facility] NorthwestGbatminLJIISJWPXD9893-24-28 11:45:00 Test Item Value Reference Range Interpretation Comments Eosinophils (test code = 2.5 See_Comment [A utomated message] The Eosinophils) system which ge nerated this result tra nsmitted reference range : <=4.0. The reference r eric was not used to int erpret this result as normal/abnormal . [facility] NorthwestQqnhyxoDJUURFPEQC4704-64-83 11:45:00 Test Item Value Reference Range Interpretation Comments Basophils (test code = 0.7 See_Comment [Aut omated message] The Basophils) system which ge nerated this result tra nsmitted reference range : <=1.0. The reference r eric was not used to int erpret this result as normal/abnormal . [facility] NorthwestClmosksZVVVTOJGFL9873-73-45 11:45:00 Test Item Value Reference Range Interpretation Comments Neutrophils # (test code = Neutrophils 5.9 1.5-8.1 #) [facility] NorthwestXbuuzktVRLUKQSLYU2340-19-23 11:45:00 Test Item Value Reference Range Interpretation Comments Lymphocytes # (test code = Lymphocytes 1.9 1.0-5.5 #) [facility] NorthwestEupnatkCOSPZUUTJJ3763-89-33 11:45:00 Test Item Value Reference Range Interpretation Comments Monocytes # (test code 0.7 See_Comment [Aut omated message] The = Monocytes #) system which generated this result tra nsmitted reference range : <=0.8. The reference r eric was not used to int erpret this result as normal/abnormal . [facility] NorthwestFpcbwepNPVKZXQROX0587-02-25 11:45:00 Test Item Value Reference Range Interpretation Comments Eosinophils # (test code 0.2 See_Comment [A utomated message] The = Eosinophils #) system whic h generated this result tra nsmitted reference range : <=0.5. The reference r eric was not used to int erpret this result as normal/abnormal . [facility] NorthwestMxmxkynOFABNQGAVC8929-71-80 11:45:00 Test Item Value Reference Range Interpretation Comments Basophils # (test code 0.1 See_Comment [Aut omated message] The = Basophils #) system which generated this result tra nsmitted reference range : <=0.2. The reference r eric was not used to int erpret this result as normal/abnormal . [facility]2020-01-22 11:45:00 Test Item Value Reference Range Interpretation Comments Glucose Lvl (test code = Glucose Lvl) 111 70-99 [facility] [id number] 11:45:00 Test Item Value Reference Range Interpretation Comments BUN (test code = BUN) 15 7-22 [place] 669060-01-22 11:45:00 Test Item Value Reference Range Interpretation Comments Creatinine Lvl (test code = Creatinine 0.72 0.50-1.40 Lvl) [place] 669060-01-22 11:45:00 Test Item Value Reference Range Interpretation Comments Sodium Lvl (test code = Sodium Lvl) 141 135-145 [place] 669060-01-22 11:45:00 Test Item Value Reference Range Interpretation Comments Potassium Lvl (test code = Potassium 3.4 3.5-5.1 Lvl) [place] 669060-01-22 11:45:00 Test Item Value Reference Range Interpretation Comments Chloride Lvl (test code = Chloride Lvl) 109 95-109 [place] 669060-01-22 11:45:00 Test Item Value Reference Range Interpretation Comments CO2 (test code = CO2) 26 24-32 [place] 669060-01-22 11:45:00 Test Item Value Reference Range Interpretation Comments AGAP (test code = AGAP) 9.4 10.0-20.0 [place] 669060-01-22 11:45:00 Test Item Value Reference Range Interpretation Comments Calcium Lvl (test code = Calcium Lvl) 8.4 8.5-10.5 [place] 669060-01-22 11:45:00 Test Item Value Reference Range Interpretation Comments eGFR (test code = eGFR) 84 [place] [address]-01-22 11:45:00 Test Item Value Reference Range Interpretation Comments WBC (test code = WBC) 8.8 3.7-10.4 [place] [address]-01-22 11:45:00 Test Item Value Reference Range Interpretation Comments RBC (test code = RBC) 3.92 4.20-5.40 [place] [address]-01-22 11:45:00 Test Item Value Reference Range Interpretation Comments Hgb (test code = Hgb) 10.3 12.0-16.0 [place] [address]-01-22 11:45:00 Test Item Value Reference Range Interpretation Comments Hct (test code = Hct) 31.8 36.0-48.0 [place] [address]-01-22 11:45:00 Test Item Value Reference Range Interpretation Comments MCV (test code = MCV) 81.3 80.0-98.0 [place] [address]-01-22 11:45:00 Test Item Value Reference Range Interpretation Comments MCH (test code = MCH) 26.3 pg 27.0-31.0 [place] [address]-01-22 11:45:00 Test Item Value Reference Range Interpretation Comments MCHC (test code = MCHC) 32.3 32.0-36.0 [facility] NorthwestBbjwvscXYHZQSSGFM6175-48-01 11:45:00 Test Item Value Reference Range Interpretation Comments RDW (test code = RDW) 14.2 11.5-14.5 [place] [address]-01-22 11:45:00 Test Item Value Reference Range Interpretation Comments Platelet (test code = Platelet) 272 133-450 [facility] NorthwestEierlsmEIXIPPRZYP5894-77-70 11:45:00 Test Item Value Reference Range Interpretation Comments MPV (test code = MPV) 8.1 7.4-10.4 [place] [address]-01-22 11:45:00 Test Item Value Reference Range Interpretation Comments Segs (test code = Segs) 67.0 45.0-75.0 [place] [address]-01-22 11:45:00 Test Item Value Reference Range Interpretation Comments Lymphocytes (test code = Lymphocytes) 21.6 20.0-40.0 [place] [address]-01-22 11:45:00 Test Item Value Reference Range Interpretation Comments Monocytes (test code = Monocytes) 8.2 2.0-12.0 [place] [address]-01-22 11:45:00 Test Item Value Reference Range Interpretation Comments Eosinophils (test code = 2.5 See_Comment [A utomated message] The Eosinophils) system which ge nerated this result tra nsmitted reference range : <=4.0. The reference r eric was not used to int erpret this result as normal/abnormal . [place] [address]-01-22 11:45:00 Test Item Value Reference Range Interpretation Comments Basophils (test code = 0.7 See_Comment [Aut omated message] The Basophils) system which ge nerated this result tra nsmitted reference range : <=1.0. The reference r eric was not used to int erpret this result as normal/abnormal . [place] [address]-01-22 11:45:00 Test Item Value Reference Range Interpretation Comments Neutrophils # (test code = Neutrophils 5.9 1.5-8.1 #) [place] [address]-01-22 11:45:00 Test Item Value Reference Range Interpretation Comments Lymphocytes # (test code = Lymphocytes 1.9 1.0-5.5 #) [place] [address]-01-22 11:45:00 Test Item Value Reference Range Interpretation Comments Monocytes # (test code 0.7 See_Comment [Aut omated message] The = Monocytes #) system which generated this result tra nsmitted reference range : <=0.8. The reference r eric was not used to int erpret this result as normal/abnormal . [place] [address]-01-22 11:45:00 Test Item Value Reference Range Interpretation Comments Eosinophils # (test code 0.2 See_Comment [A utomated message] The = Eosinophils #) system whic h generated this result tra nsmitted reference range : <=0.5. The reference r eric was not used to int erpret this result as normal/abnormal . [place] [address]-01-22 11:45:00 Test Item Value Reference Range Interpretation Comments Basophils # (test code 0.1 See_Comment [Aut omated message] The = Basophils #) system which generated this result tra nsmitted reference range : <=0.2. The reference r eric was not used to int erpret this result as normal/abnormal . [facility]2020-01-21 11:50:00 Test Item Value Reference Range Interpretation Comments Glucose Lvl (test code = Glucose Lvl) 62 70-99 [place] 669060-01-21 11:50:00 Test Item Value Reference Range Interpretation Comments BUN (test code = BUN) 31 7-22 [place] 669060-01-21 11:50:00 Test Item Value Reference Range Interpretation Comments Creatinine Lvl (test code = Creatinine 0.80 0.50-1.40 Lvl) [place] 669060-01-21 11:50:00 Test Item Value Reference Range Interpretation Comments Sodium Lvl (test code = Sodium Lvl) 140 135-145 [place] 669060-01-21 11:50:00 Test Item Value Reference Range Interpretation Comments Potassium Lvl (test code = Potassium 3.8 3.5-5.1 Lvl) [place] 669060-01-21 11:50:00 Test Item Value Reference Range Interpretation Comments Chloride Lvl (test code = Chloride Lvl) 108 95-109 [place] 669060-01-21 11:50:00 Test Item Value Reference Range Interpretation Comments CO2 (test code = CO2) 27 24-32 [place] 669060-01-21 11:50:00 Test Item Value Reference Range Interpretation Comments Calcium Lvl (test code = Calcium Lvl) 8.7 8.5-10.5 [place] 669060-01-21 11:50:00 Test Item Value Reference Range Interpretation Comments AGAP (test code = AGAP) 8.8 10.0-20.0 [place] 669060-01-21 11:50:00 Test Item Value Reference Range Interpretation Comments eGFR (test code = eGFR) 73 [place] 261990-01-21 11:50:00 Test Item Value Reference Range Interpretation Comments Segs (test code = Segs) 81.6 45.0-75.0 [place] [address]-01-21 11:50:00 Test Item Value Reference Range Interpretation Comments Lymphocytes (test code = Lymphocytes) 11.9 20.0-40.0 [place] 261990-01-21 11:50:00 Test Item Value Reference Range Interpretation Comments Monocytes (test code = Monocytes) 5.5 2.0-12.0 [place] [address]-01-21 11:50:00 Test Item Value Reference Range Interpretation Comments Eosinophils (test code = 0.5 See_Comment [A utomated message] The Eosinophils) system which ge nerated this result tra nsmitted reference range : <=4.0. The reference r eric was not used to int erpret this result as normal/abnormal . [place] [address]-01-21 11:50:00 Test Item Value Reference Range Interpretation Comments Basophils (test code = 0.5 See_Comment [Aut omated message] The Basophils) system which ge nerated this result tra nsmitted reference range : <=1.0. The reference r eric was not used to int erpret this result as normal/abnormal . [facility]ew[facility]DGORRBOWQD7272[facility] 11:50:00 Test Item Value Reference Range Interpretation Comments Neutrophils # (test code = Neutrophils 12.8 1.5-8.1 #) [facility] NorthwestYsqaofrYPBWQTBOXZ6073-14-09 11:50:00 Test Item Value Reference Range Interpretation Comments Lymphocytes # (test code = Lymphocytes 1.9 1.0-5.5 #) [facility] NorthwestMlmptwuZXTVMPAKMC8511-52-45 11:50:00 Test Item Value Reference Range Interpretation Comments Monocytes # (test code 0.9 See_Comment [Aut omated message] The = Monocytes #) system which generated this result tra nsmitted reference range : <=0.8. The reference r eric was not used to int erpret this result as normal/abnormal . [place] 261990-01-21 11:50:00 Test Item Value Reference Range Interpretation Comments Eosinophils # (test code 0.1 See_Comment [A utomated message] The = Eosinophils #) system whic h generated this result tra nsmitted reference range : <=0.5. The reference r eric was not used to int erpret this result as normal/abnormal . [facility] NorthwestBljkhnwRXMEULFUVA7500-70-30 11:50:00 Test Item Value Reference Range Interpretation Comments Basophils # (test code 0.1 See_Comment [Aut omated message] The = Basophils #) system which generated this result tra nsmitted reference range : <=0.2. The reference r eric was not used to int erpret this result as normal/abnormal . [facility] NorthwestChvbhdbWXMTUTDWEG2692-01-91 11:50:00 Test Item Value Reference Range Interpretation Comments WBC (test code = WBC) 15.7 3.7-10.4 [place] 261990-01-21 11:50:00 Test Item Value Reference Range Interpretation Comments RBC (test code = RBC) 3.95 4.20-5.40 [place] 261990-01-21 11:50:00 Test Item Value Reference Range Interpretation Comments Hgb (test code = Hgb) 10.2 12.0-16.0 [place] 261990-01-21 11:50:00 Test Item Value Reference Range Interpretation Comments Hct (test code = Hct) 32.3 36.0-48.0 [place] 261990-01-21 11:50:00 Test Item Value Reference Range Interpretation Comments MCV (test code = MCV) 81.9 80.0-98.0 [place] 261990-01-21 11:50:00 Test Item Value Reference Range Interpretation Comments MCH (test code = MCH) 25.9 pg 27.0-31.0 [place] 261990-01-21 11:50:00 Test Item Value Reference Range Interpretation Comments MCHC (test code = MCHC) 31.6 32.0-36.0 [place] 261990-01-21 11:50:00 Test Item Value Reference Range Interpretation Comments RDW (test code = RDW) 14.9 11.5-14.5 [place] [address]-01-21 11:50:00 Test Item Value Reference Range Interpretation Comments Platelet (test code = Platelet) 339 133-450 [place] 261990-01-21 11:50:00 Test Item Value Reference Range Interpretation Comments MPV (test code = MPV) 8.3 7.4-10.4 [facility]2020-01-21 11:50:00 Test Item Value Reference Range Interpretation Comments Glucose Lvl (test code = Glucose Lvl) 62 70-99 [place] 669060-01-21 11:50:00 Test Item Value Reference Range Interpretation Comments BUN (test code = BUN) 31 7-22 [place] 669060-01-21 11:50:00 Test Item Value Reference Range Interpretation Comments Creatinine Lvl (test code = Creatinine 0.80 0.50-1.40 Lvl) [place] 669060-01-21 11:50:00 Test Item Value Reference Range Interpretation Comments Sodium Lvl (test code = Sodium Lvl) 140 135-145 [place] 669060-01-21 11:50:00 Test Item Value Reference Range Interpretation Comments Potassium Lvl (test code = Potassium 3.8 3.5-5.1 Lvl) [place] 669060-01-21 11:50:00 Test Item Value Reference Range Interpretation Comments Chloride Lvl (test code = Chloride Lvl) 108 95-109 [place] 669060-01-21 11:50:00 Test Item Value Reference Range Interpretation Comments CO2 (test code = CO2) 27 24-32 [place] 669060-01-21 11:50:00 Test Item Value Reference Range Interpretation Comments Calcium Lvl (test code = Calcium Lvl) 8.7 8.5-10.5 [place] 669060-01-21 11:50:00 Test Item Value Reference Range Interpretation Comments AGAP (test code = AGAP) 8.8 10.0-20.0 [place] 669060-01-21 11:50:00 Test Item Value Reference Range Interpretation Comments eGFR (test code = eGFR) 73 [place] 261990-01-21 11:50:00 Test Item Value Reference Range Interpretation Comments Segs (test code = Segs) 81.6 45.0-75.0 [place] 261990-01-21 11:50:00 Test Item Value Reference Range Interpretation Comments Lymphocytes (test code = Lymphocytes) 11.9 20.0-40.0 [place] 261990-01-21 11:50:00 Test Item Value Reference Range Interpretation Comments Monocytes (test code = Monocytes) 5.5 2.0-12.0 [place] 261990-01-21 11:50:00 Test Item Value Reference Range Interpretation Comments Eosinophils (test code = 0.5 See_Comment [A utomated message] The Eosinophils) system which ge nerated this result tra nsmitted reference range : <=4.0. The reference r eric was not used to int erpret this result as normal/abnormal . [place] [address]-01-21 11:50:00 Test Item Value Reference Range Interpretation Comments Basophils (test code = 0.5 See_Comment [Aut omated message] The Basophils) system which ge nerated this result tra nsmitted reference range : <=1.0. The reference r eric was not used to int erpret this result as normal/abnormal . [place] [address]-01-21 11:50:00 Test Item Value Reference Range Interpretation Comments Neutrophils # (test code = Neutrophils 12.8 1.5-8.1 #) [place] [address]-01-21 11:50:00 Test Item Value Reference Range Interpretation Comments Lymphocytes # (test code = Lymphocytes 1.9 1.0-5.5 #) [place] [address]-01-21 11:50:00 Test Item Value Reference Range Interpretation Comments Monocytes # (test code 0.9 See_Comment [Aut omated message] The = Monocytes #) system which generated this result tra nsmitted reference range : <=0.8. The reference r eric was not used to int erpret this result as normal/abnormal . [facility] NorthwestCoscsddJTREYCSTXE9996-71-15 11:50:00 Test Item Value Reference Range Interpretation Comments Eosinophils # (test code 0.1 See_Comment [A utomated message] The = Eosinophils #) system whic h generated this result tra nsmitted reference range : <=0.5. The reference r eric was not used to int erpret this result as normal/abnormal . [facility] NorthwestJcitmfbGNBLRVGZQV6702-75-30 11:50:00 Test Item Value Reference Range Interpretation Comments Basophils # (test code 0.1 See_Comment [Aut omated message] The = Basophils #) system which generated this result tra nsmitted reference range : <=0.2. The reference r eric was not used to int erpret this result as normal/abnormal . [facility] NorthwestXufkuzdFDDJFRUFOE0376-90-41 11:50:00 Test Item Value Reference Range Interpretation Comments WBC (test code = WBC) 15.7 3.7-10.4 [facility] NorthwestMluzytpWGWNRPPSWQ0482-34-54 11:50:00 Test Item Value Reference Range Interpretation Comments RBC (test code = RBC) 3.95 4.20-5.40 [facility] NorthwestYatpjhcXGYQULVTDA2491-33-01 11:50:00 Test Item Value Reference Range Interpretation Comments Hgb (test code = Hgb) 10.2 12.0-16.0 [facility] NorthwestDrfrdjvHAGEGWYJUA2711-02-58 11:50:00 Test Item Value Reference Range Interpretation Comments Hct (test code = Hct) 32.3 36.0-48.0 [place] [address]-01-21 11:50:00 Test Item Value Reference Range Interpretation Comments MCV (test code = MCV) 81.9 80.0-98.0 [place] [address]-01-21 11:50:00 Test Item Value Reference Range Interpretation Comments MCH (test code = MCH) 25.9 pg 27.0-31.0 [facility] NorthwestUednokjLHFFCUNVDI3783-93-85 11:50:00 Test Item Value Reference Range Interpretation Comments MCHC (test code = MCHC) 31.6 32.0-36.0 [facility] NorthwestQpafktsJFODGLMALC3474-12-90 11:50:00 Test Item Value Reference Range Interpretation Comments RDW (test code = RDW) 14.9 11.5-14.5 [place] 261990-01-21 11:50:00 Test Item Value Reference Range Interpretation Comments Platelet (test code = Platelet) 339 133-450 [facility] NorthwestIajcaleHZNMFXRZCA4965-49-37 11:50:00 Test Item Value Reference Range Interpretation Comments MPV (test code = MPV) 8.3 7.4-10.4 [facility]2020-01-21 11:50:00 Test Item Value Reference Range Interpretation Comments Glucose Lvl (test code = Glucose Lvl) 62 70-99 [facility]2020-01-21 11:50:00 Test Item Value Reference Range Interpretation Comments BUN (test code = BUN) 31 7-22 [facility]2020-01-21 11:50:00 Test Item Value Reference Range Interpretation Comments Creatinine Lvl (test code = Creatinine 0.80 0.50-1.40 Lvl) [facility]2020-01-21 11:50:00 Test Item Value Reference Range Interpretation Comments Sodium Lvl (test code = Sodium Lvl) 140 135-145 [facility]2020-01-21 11:50:00 Test Item Value Reference Range Interpretation Comments Potassium Lvl (test code = Potassium 3.8 3.5-5.1 Lvl) [facility]2020-01-21 11:50:00 Test Item Value Reference Range Interpretation Comments Chloride Lvl (test code = Chloride Lvl) 108 95-109 [facility]2020-01-21 11:50:00 Test Item Value Reference Range Interpretation Comments CO2 (test code = CO2) 27 24-32 [facility]2020-01-21 11:50:00 Test Item Value Reference Range Interpretation Comments Calcium Lvl (test code = Calcium Lvl) 8.7 8.5-10.5 [facility]2020-01-21 11:50:00 Test Item Value Reference Range Interpretation Comments AGAP (test code = AGAP) 8.8 10.0-20.0 [place] 669060-01-21 11:50:00 Test Item Value Reference Range Interpretation Comments eGFR (test code = eGFR) 73 [facility] NorthwestBkebkozPZQPNLJJDW7320-16-17 11:50:00 Test Item Value Reference Range Interpretation Comments Segs (test code = Segs) 81.6 45.0-75.0 [facility] NorthwestUaxvnhiMKCQVJKGSO6779-96-28 11:50:00 Test Item Value Reference Range Interpretation Comments Lymphocytes (test code = Lymphocytes) 11.9 20.0-40.0 [place] [address]1990-01-21 11:50:00 Test Item Value Reference Range Interpretation Comments Monocytes (test code = Monocytes) 5.5 2.0-12.0 [facility] NorthwestUxvfxetIMGGZFANPV9396-11-69 11:50:00 Test Item Value Reference Range Interpretation Comments Eosinophils (test code = 0.5 See_Comment [A utomated message] The Eosinophils) system which ge nerated this result tra nsmitted reference range : <=4.0. The reference r eric was not used to int erpret this result as normal/abnormal . [facility] NorthwestKvqqihkAAGZMHZVOQ9256-21-31 11:50:00 Test Item Value Reference Range Interpretation Comments Basophils (test code = 0.5 See_Comment [Aut omated message] The Basophils) system which ge nerated this result tra nsmitted reference range : <=1.0. The reference r eric was not used to int erpret this result as normal/abnormal . [facility] NorthwestRcucvthYGBFYWYCEO3287-34-17 11:50:00 Test Item Value Reference Range Interpretation Comments Neutrophils # (test code = Neutrophils 12.8 1.5-8.1 #) [place] [address]-01-21 11:50:00 Test Item Value Reference Range Interpretation Comments Lymphocytes # (test code = Lymphocytes 1.9 1.0-5.5 #) [place] [address]-01-21 11:50:00 Test Item Value Reference Range Interpretation Comments Monocytes # (test code 0.9 See_Comment [Aut omated message] The = Monocytes #) system which generated this result tra nsmitted reference range : <=0.8. The reference r eric was not used to int erpret this result as normal/abnormal . [facility] NorthwestRbanlkyUHUHQZVKJP6433-44-22 11:50:00 Test Item Value Reference Range Interpretation Comments Eosinophils # (test code 0.1 See_Comment [A utomated message] The = Eosinophils #) system whic h generated this result tra nsmitted reference range : <=0.5. The reference r eric was not used to int erpret this result as normal/abnormal . [facility] NorthwestZpcwkxvFSIAKVQMGL0231-03-89 11:50:00 Test Item Value Reference Range Interpretation Comments Basophils # (test code 0.1 See_Comment [Aut omated message] The = Basophils #) system which generated this result tra nsmitted reference range : <=0.2. The reference r eric was not used to int erpret this result as normal/abnormal . [facility] NorthwestMiaoktfUIHUPINQOX3495-16-74 11:50:00 Test Item Value Reference Range Interpretation Comments WBC (test code = WBC) 15.7 3.7-10.4 [facility] NorthwestByadmacILQKETAESZ2111-35-26 11:50:00 Test Item Value Reference Range Interpretation Comments RBC (test code = RBC) 3.95 4.20-5.40 [facility] NorthwestWcrwiypFORQTOALLG0159-19-08 11:50:00 Test Item Value Reference Range Interpretation Comments Hgb (test code = Hgb) 10.2 12.0-16.0 [facility] NorthwestRfhmriwHBTENTLENS0751-33-36 11:50:00 Test Item Value Reference Range Interpretation Comments Hct (test code = Hct) 32.3 36.0-48.0 [facility] NorthwestZmltjayAYBHBULEYY0657-56-10 11:50:00 Test Item Value Reference Range Interpretation Comments MCV (test code = MCV) 81.9 80.0-98.0 [facility] NorthwestGnnyxbcDDCSKKEFSV4208-14-41 11:50:00 Test Item Value Reference Range Interpretation Comments MCH (test code = MCH) 25.9 pg 27.0-31.0 [facility] NorthwestXftfuepJHIBCWIEHO9710-36-43 11:50:00 Test Item Value Reference Range Interpretation Comments MCHC (test code = MCHC) 31.6 32.0-36.0 [facility] NorthwestKnumebhDVMWVNJNVQ5470-97-83 11:50:00 Test Item Value Reference Range Interpretation Comments RDW (test code = RDW) 14.9 11.5-14.5 [facility] NorthwestFtoxtymGEUJUKBDLV1635-44-75 11:50:00 Test Item Value Reference Range Interpretation Comments Platelet (test code = Platelet) 339 133-450 [facility]GyogvbwXPKONYDZEL9489-05-60 11:50:00 Test Item Value Reference Range Interpretation Comments MPV (test code = MPV) 8.3 7.4-10.4 [facility] [id number] 21:57:00 Test Item Value Reference Range Interpretation Comments Total CK (test code = Total CK) 81 12-191 [facility] [id number] 21:57:00 Test Item Value Reference Range Interpretation Comments Troponin-I (test code no gt See_Comment [Auto mated message] The = Troponin-I) system which g enerated this result transmit thelma reference range : <=0.40. The reference r eric was not used to interpr et this result as zana l/abnormal. [facility] [id number] 21:57:00 Test Item Value Reference Range Interpretation Comments Glucose Lvl (test code = Glucose Lvl) 85 70-99 [facility]2020-01-20 21:57:00 Test Item Value Reference Range Interpretation Comments BUN (test code = BUN) 38 7-22 [facility]2020-01-20 21:57:00 Test Item Value Reference Range Interpretation Comments Creatinine Lvl (test code = Creatinine 1.00 0.50-1.40 Lvl) [facility]2020-01-20 21:57:00 Test Item Value Reference Range Interpretation Comments Sodium Lvl (test code = Sodium Lvl) 138 135-145 [facility]2020-01-20 21:57:00 Test Item Value Reference Range Interpretation Comments Potassium Lvl (test code = Potassium 5.3 3.5-5.1 Lvl) [facility]2020-01-20 21:57:00 Test Item Value Reference Range Interpretation Comments Chloride Lvl (test code = Chloride Lvl) 108 95-109 [facility]2020-01-20 21:57:00 Test Item Value Reference Range Interpretation Comments CO2 (test code = CO2) 24 24-32 [facility]2020-01-20 21:57:00 Test Item Value Reference Range Interpretation Comments Calcium Lvl (test code = Calcium Lvl) 8.5 8.5-10.5 [facility]2020-01-20 21:57:00 Test Item Value Reference Range Interpretation Comments Total Protein (test code = Total 6.1 6.4-8.4 Protein) [facility] [id number] 21:57:00 Test Item Value Reference Range Interpretation Comments Albumin Lvl (test code = Albumin Lvl) 2.6 3.5-5.0 [facility] [id number] 21:57:00 Test Item Value Reference Range Interpretation Comments ALT (test code = ALT) 12 See_Comment [Auto mated message] The system which ge nerated this result transmit thelma reference range : <=65. The reference range was not used to interpr et this result as zana l/abnormal. [facility] [id number] 21:57:00 Test Item Value Reference Range Interpretation Comments AST (test code = AST) 19 See_Comment [Auto mated message] The system which ge nerated this result transmit thelma reference range : <=37. The reference range was not used to interpr et this result as zana l/abnormal. [facility] [id number] 21:57:00 Test Item Value Reference Range Interpretation Comments Alk Phos (test code = Alk Phos) 52 39-136 [facility] [id number] 21:57:00 Test Item Value Reference Range Interpretation Comments Bili Total (test code = Bili Total) 0.3 0.2-1.3 [facility] [id number] 21:57:00 Test Item Value Reference Range Interpretation Comments AGAP (test code = AGAP) 11.3 10.0-20.0 [facility] [id number] 21:57:00 Test Item Value Reference Range Interpretation Comments B/C Ratio (test code = B/C Ratio) 38 1 6-25 [facility] [id number] 21:57:00 Test Item Value Reference Range Interpretation Comments Globulin (test code = Globulin) 3.5 2.7-4.2 [facility] [id number] 21:57:00 Test Item Value Reference Range Interpretation Comments A/G Ratio (test code = A/G Ratio) 0.7 1 0.7-1.6 [facility] [id number] 21:57:00 Test Item Value Reference Range Interpretation Comments eGFR (test code = eGFR) 56 [facility] [id number] 21:57:00 Test Item Value Reference Range Interpretation Comments Total CK (test code = Total CK) 81 12-191 [facility] [id number] 21:57:00 Test Item Value Reference Range Interpretation Comments Troponin-I (test code no gt See_Comment [Auto mated message] The = Troponin-I) system which g enerated this result transmit thelma reference range : <=0.40. The reference r eric was not used to interpr et this result as zana l/abnormal. [facility] [id number] 21:57:00 Test Item Value Reference Range Interpretation Comments Glucose Lvl (test code = Glucose Lvl) 85 70-99 [facility] [id number] 21:57:00 Test Item Value Reference Range Interpretation Comments BUN (test code = BUN) 38 7-22 [facility] [id number] 21:57:00 Test Item Value Reference Range Interpretation Comments Creatinine Lvl (test code = Creatinine 1.00 0.50-1.40 Lvl) [facility] [id number] 21:57:00 Test Item Value Reference Range Interpretation Comments Sodium Lvl (test code = Sodium Lvl) 138 135-145 [facility] [id number] 21:57:00 Test Item Value Reference Range Interpretation Comments Potassium Lvl (test code = Potassium 5.3 3.5-5.1 Lvl) [facility] [id number] 21:57:00 Test Item Value Reference Range Interpretation Comments Chloride Lvl (test code = Chloride Lvl) 108 95-109 [facility] [id number] 21:57:00 Test Item Value Reference Range Interpretation Comments CO2 (test code = CO2) 24 24-32 [facility] [id number] 21:57:00 Test Item Value Reference Range Interpretation Comments Calcium Lvl (test code = Calcium Lvl) 8.5 8.5-10.5 [facility] [id number] 21:57:00 Test Item Value Reference Range Interpretation Comments Total Protein (test code = Total 6.1 6.4-8.4 Protein) [facility] [id number] 21:57:00 Test Item Value Reference Range Interpretation Comments Albumin Lvl (test code = Albumin Lvl) 2.6 3.5-5.0 [facility] [id number] 21:57:00 Test Item Value Reference Range Interpretation Comments ALT (test code = ALT) 12 See_Comment [Auto mated message] The system which ge nerated this result transmit thelma reference range : <=65. The reference range was not used to interpr et this result as zana l/abnormal. [facility] [id number] 21:57:00 Test Item Value Reference Range Interpretation Comments AST (test code = AST) 19 See_Comment [Auto mated message] The system which ge nerated this result transmit thelma reference range : <=37. The reference range was not used to interpr et this result as zana l/abnormal. [facility] [id number] 21:57:00 Test Item Value Reference Range Interpretation Comments Alk Phos (test code = Alk Phos) 52 39-136 [facility] [id number] 21:57:00 Test Item Value Reference Range Interpretation Comments Bili Total (test code = Bili Total) 0.3 0.2-1.3 [facility] [id number] 21:57:00 Test Item Value Reference Range Interpretation Comments AGAP (test code = AGAP) 11.3 10.0-20.0 [facility] [id number] 21:57:00 Test Item Value Reference Range Interpretation Comments B/C Ratio (test code = B/C Ratio) 38 1 6-25 [facility] [id number] 21:57:00 Test Item Value Reference Range Interpretation Comments Globulin (test code = Globulin) 3.5 2.7-4.2 [facility] [id number] 21:57:00 Test Item Value Reference Range Interpretation Comments A/G Ratio (test code = A/G Ratio) 0.7 1 0.7-1.6 [facility] [id number] 21:57:00 Test Item Value Reference Range Interpretation Comments eGFR (test code = eGFR) 56 [facility]ann[facility]ARDIAC [id number] 21:57:00 Test Item Value Reference Range Interpretation Comments Total CK (test code = Total CK) 81 12-191 [facility] [id number] 21:57:00 Test Item Value Reference Range Interpretation Comments Troponin-I (test code no gt See_Comment [Auto mated message] The = Troponin-I) system which g enerated this result transmit thelma reference range : <=0.40. The reference r eric was not used to interpr et this result as zana l/abnormal. [facility] [id number] 21:57:00 Test Item Value Reference Range Interpretation Comments Glucose Lvl (test code = Glucose Lvl) 85 70-99 [facility] [id number] 21:57:00 Test Item Value Reference Range Interpretation Comments BUN (test code = BUN) 38 7-22 [facility] [id number] 21:57:00 Test Item Value Reference Range Interpretation Comments Creatinine Lvl (test code = Creatinine 1.00 0.50-1.40 Lvl) [facility] [id number] 21:57:00 Test Item Value Reference Range Interpretation Comments Sodium Lvl (test code = Sodium Lvl) 138 135-145 [facility] [id number] 21:57:00 Test Item Value Reference Range Interpretation Comments Potassium Lvl (test code = Potassium 5.3 3.5-5.1 Lvl) [facility] [id number] 21:57:00 Test Item Value Reference Range Interpretation Comments Chloride Lvl (test code = Chloride Lvl) 108 95-109 [facility] [id number] 21:57:00 Test Item Value Reference Range Interpretation Comments CO2 (test code = CO2) 24 24-32 [facility] [id number] 21:57:00 Test Item Value Reference Range Interpretation Comments Calcium Lvl (test code = Calcium Lvl) 8.5 8.5-10.5 [facility] [id number] 21:57:00 Test Item Value Reference Range Interpretation Comments Total Protein (test code = Total 6.1 6.4-8.4 Protein) [facility] [id number] 21:57:00 Test Item Value Reference Range Interpretation Comments Albumin Lvl (test code = Albumin Lvl) 2.6 3.5-5.0 [facility] [id number] 21:57:00 Test Item Value Reference Range Interpretation Comments ALT (test code = ALT) 12 See_Comment [Auto mated message] The system which ge nerated this result transmit thelma reference range : <=65. The reference range was not used to interpr et this result as zana l/abnormal. [facility] [id number] 21:57:00 Test Item Value Reference Range Interpretation Comments AST (test code = AST) 19 See_Comment [Auto mated message] The system which ge nerated this result transmit thelma reference range : <=37. The reference range was not used to interpr et this result as zana l/abnormal. [facility] [id number] 21:57:00 Test Item Value Reference Range Interpretation Comments Alk Phos (test code = Alk Phos) 52 39-136 [facility] [id number] 21:57:00 Test Item Value Reference Range Interpretation Comments Bili Total (test code = Bili Total) 0.3 0.2-1.3 [facility] [id number] 21:57:00 Test Item Value Reference Range Interpretation Comments AGAP (test code = AGAP) 11.3 10.0-20.0 [facility] [id number] 21:57:00 Test Item Value Reference Range Interpretation Comments B/C Ratio (test code = B/C Ratio) 38 1 6-25 [facility] [id number] 21:57:00 Test Item Value Reference Range Interpretation Comments Globulin (test code = Globulin) 3.5 2.7-4.2 [facility] [id number] 21:57:00 Test Item Value Reference Range Interpretation Comments A/G Ratio (test code = A/G Ratio) 0.7 1 0.7-1.6 [facility] [id number] 21:57:00 Test Item Value Reference Range Interpretation Comments eGFR (test code = eGFR) 56 [facility]USC:PT:ISOLATE:ORDQN:[id number] 21:05:00 Test Item Value Reference Range Interpretation Comments Culture: Urine (test >100,000 CFU/mL Proteus code = Culture: mirabilis Urine) [facility]USC:PT:ISOLATE:ORDQN:[id number] 21:05:00 Test Item Value Reference Range Interpretation Comments Proteus mirabilis (test Proteus mirabilis code = Proteus mirabilis) [facility] AND [id number] 21:05:00 Test Item Value Reference Range Interpretation Comments UA Turbidity (test code Slight *ABN*(10/03/19 = UA Turbidity) 3:05 PM) [facility] AND [id number] 21:05:00 Test Item Value Reference Range Interpretation Comments UA Spec Grav (test code = UA Spec 1.017 1 Grav) [facility] AND [id number] 21:05:00 Test Item Value Reference Range Interpretation Comments UA pH (test code = UA pH) 7.0 1 5.0-8.0 [facility] AND [id number] 21:05:00 Test Item Value Reference Range Interpretation Comments UA Protein (test code = UA Protein) 30 mg/dL [facility] AND [id number] 21:05:00 Test Item Value Reference Range Interpretation Comments UA Glucose (test code = UA Negative mg/dL Glucose) [facility] AND [id number] 21:05:00 Test Item Value Reference Range Interpretation Comments UA Ketones (test code = UA Trace mg/dL Ketones) [facility] AND [id number] 21:05:00 Test Item Value Reference Range Interpretation Comments UA Bili (test code = Negative *NA*(10/03/19 UA Bili) 3:05 PM) [facility] AND [id number] 21:05:00 Test Item Value Reference Range Interpretation Comments UA Blood (test code = Moderate *ABN*(10/03/19 UA Blood) 3:05 PM) [facility] AND [id number] 21:05:00 Test Item Value Reference Range Interpretation Comments UA Urobilinogen (test code = UA 2.0 0.1-1.0 Urobilinogen) [facility] AND [id number] 21:05:00 Test Item Value Reference Range Interpretation Comments UA Nitrite (test code Positive *ABN*(10/03/19 = UA Nitrite) 3:05 PM) [facility] AND [id number] 21:05:00 Test Item Value Reference Range Interpretation Comments UA Leuk Est (test code Large *ABN*(10/03/19 = UA Leuk Est) 3:05 PM) [facility] [id number] 21:05:00 Test Item Value Reference Range Interpretation Comments UA WBC (test code = 90 See_Comment [Automa thelma message] The UA WBC) system which ge nerated this result transmit thelma reference range : <=5. The reference range was not used to interpr et this result as zana l/abnormal. [facility] [id number] 21:05:00 Test Item Value Reference Range Interpretation Comments UA RBC (test code = 9 See_Comment [Automa thelma message] The UA RBC) system which ge nerated this result transmit thelma reference range : <=2. The reference range was not used to interpr et this result as zana l/abnormal. [facility] [id number] 21:05:00 Test Item Value Reference Range Interpretation Comments UA Bacteria (test code = UA Few /HPF Bacteria) [facility] [id number] 21:05:00 Test Item Value Reference Range Interpretation Comments UA Mucus (test code = UA Mucus) Few /LPF [facility] [id number] 21:05:00 Test Item Value Reference Range Interpretation Comments UA Hyal Cast (test 4 See_Comment [Automat ed message] The code = UA Hyal Cast) system which generated this result transmit thelma reference range : <=2. The reference range was not used to interpr et this result as zana l/abnormal. [facility] [id number] 21:05:00 Test Item Value Reference Range Interpretation Comments UA Sq Epi (test code = UA Sq Epi) None [facility]en [facility] [id number] 21:05:00 Test Item Value Reference Range Interpretation Comments UA Color (test code = UA Color) YELLOW [facility] PolloIsaac:SUSC:PT:ISOLATE:ORDQN:[id number] 21:05:00 Test Item Value Reference Range Interpretation Comments Culture: Urine (test >100,000 CFU/mL Proteus code = Culture: mirabilis Urine) [facility] PolloIsaac:SUSC:PT:ISOLATE:ORDQN:[id number] 21:05:00 Test Item Value Reference Range Interpretation Comments Proteus mirabilis (test Proteus mirabilis code = Proteus mirabilis) [facility] AND [id number] 21:05:00 Test Item Value Reference Range Interpretation Comments UA Turbidity (test code Slight *ABN*(10/03/19 = UA Turbidity) 3:05 PM) [facility] AND [id number] 21:05:00 Test Item Value Reference Range Interpretation Comments UA Spec Grav (test code = UA Spec 1.017 1 Grav) [facility] AND [id number] 21:05:00 Test Item Value Reference Range Interpretation Comments UA pH (test code = UA pH) 7.0 1 5.0-8.0 [facility] AND [id number] 21:05:00 Test Item Value Reference Range Interpretation Comments UA Protein (test code = UA Protein) 30 mg/dL [facility] AND [id number] 21:05:00 Test Item Value Reference Range Interpretation Comments UA Glucose (test code = UA Negative mg/dL Glucose) [facility] AND [id number] 21:05:00 Test Item Value Reference Range Interpretation Comments UA Ketones (test code = UA Trace mg/dL Ketones) [facility] AND [id number] 21:05:00 Test Item Value Reference Range Interpretation Comments UA Bili (test code = Negative *NA*(10/03/19 UA Bili) 3:05 PM) [facility] AND [id number] 21:05:00 Test Item Value Reference Range Interpretation Comments UA Blood (test code = Moderate *ABN*(10/03/19 UA Blood) 3:05 PM) [facility] AND [id number] 21:05:00 Test Item Value Reference Range Interpretation Comments UA Urobilinogen (test code = UA 2.0 0.1-1.0 Urobilinogen) [facility] AND [id number] 21:05:00 Test Item Value Reference Range Interpretation Comments UA Nitrite (test code Positive *ABN*(10/03/19 = UA Nitrite) 3:05 PM) [facility] AND [id number] 21:05:00 Test Item Value Reference Range Interpretation Comments UA Leuk Est (test code Large *ABN*(10/03/19 = UA Leuk Est) 3:05 PM) [facility] AND [id number] 21:05:00 Test Item Value Reference Range Interpretation Comments UA WBC (test code = 90 See_Comment [Automa thelma message] The UA WBC) system which ge nerated this result transmit thelma reference range : <=5. The reference range was not used to interpr et this result as zana l/abnormal. [facility] [id number] 21:05:00 Test Item Value Reference Range Interpretation Comments UA RBC (test code = 9 See_Comment [Automa thelma message] The UA RBC) system which ge nerated this result transmit thelma reference range : <=2. The reference range was not used to interpr et this result as zana l/abnormal. [facility] [id number] 21:05:00 Test Item Value Reference Range Interpretation Comments UA Bacteria (test code = UA Few /HPF Bacteria) [facility] [id number] 21:05:00 Test Item Value Reference Range Interpretation Comments UA Mucus (test code = UA Mucus) Few /LPF [facility] [id number] 21:05:00 Test Item Value Reference Range Interpretation Comments UA Hyal Cast (test 4 See_Comment [Automat ed message] The code = UA Hyal Cast) system which generated this result transmit thelma reference range : <=2. The reference range was not used to interpr et this result as zana l/abnormal. [facility] AND [id number] 21:05:00 Test Item Value Reference Range Interpretation Comments UA Sq Epi (test code = UA Sq Epi) None Seen [facility] AND [id number] 21:05:00 Test Item Value Reference Range Interpretation Comments UA Color (test code = UA Color) YELLOW [facility]CHICHOME:SUSC:PT:ISOLATE:ORDQN:[id number] 21:05:00 Test Item Value Reference Range Interpretation Comments Culture: Urine (test >100,000 CFU/mL Proteus code = Culture: mirabilis Urine) [facility] aJARONALLYME:SUSC:PT:ISOLATE:ORDQN:[id number] 21:05:00 Test Item Value Reference Range Interpretation Comments Proteus mirabilis (test Proteus mirabilis code = Proteus mirabilis) [facility] AND [id number] 21:05:00 Test Item Value Reference Range Interpretation Comments UA Turbidity (test code Slight *ABN*(10/03/19 = UA Turbidity) 3:05 PM) [facility] AND [id number] 21:05:00 Test Item Value Reference Range Interpretation Comments UA Spec Grav (test code = UA Spec 1.017 1 Grav) [facility] AND [id number] 21:05:00 Test Item Value Reference Range Interpretation Comments UA pH (test code = UA pH) 7.0 1 5.0-8.0 [facility] AND [id number] 21:05:00 Test Item Value Reference Range Interpretation Comments UA Protein (test code = UA Protein) 30 mg/dL [facility] AND [id number] 21:05:00 Test Item Value Reference Range Interpretation Comments UA Glucose (test code = UA Negative mg/dL Glucose) [facility] AND [id number] 21:05:00 Test Item Value Reference Range Interpretation Comments UA Ketones (test code = UA Trace mg/dL Ketones) [facility] AND [id number] 21:05:00 Test Item Value Reference Range Interpretation Comments UA Bili (test code = Negative *NA*(10/03/19 UA Bili) 3:05 PM) [facility] AND [id number] 21:05:00 Test Item Value Reference Range Interpretation Comments UA Blood (test code = Moderate *ABN*(10/03/19 UA Blood) 3:05 PM) [facility] AND [id number] 21:05:00 Test Item Value Reference Range Interpretation Comments UA Urobilinogen (test code = UA 2.0 0.1-1.0 Urobilinogen) [facility] AND [id number] 21:05:00 Test Item Value Reference Range Interpretation Comments UA Nitrite (test code Positive *ABN*(10/03/19 = UA Nitrite) 3:05 PM) [facility] AND [id number] 21:05:00 Test Item Value Reference Range Interpretation Comments UA Leuk Est (test code Large *ABN*(10/03/19 = UA Leuk Est) 3:05 PM) [facility] [id number] 21:05:00 Test Item Value Reference Range Interpretation Comments UA WBC (test code = 90 See_Comment [Automa thelma message] The UA WBC) system which ge nerated this result transmit thelma reference range : <=5. The reference range was not used to interpr et this result as zana l/abnormal. [facility] [id number] 21:05:00 Test Item Value Reference Range Interpretation Comments UA RBC (test code = 9 See_Comment [Automa thelma message] The UA RBC) system which ge nerated this result transmit thelma reference range : <=2. The reference range was not used to interpr et this result as zana l/abnormal. [facility] [id number] 21:05:00 Test Item Value Reference Range Interpretation Comments UA Bacteria (test code = UA Few /HPF Bacteria) [facility] [id number] 21:05:00 Test Item Value Reference Range Interpretation Comments UA Mucus (test code = UA Mucus) Few /LPF [facility] [id number] 21:05:00 Test Item Value Reference Range Interpretation Comments UA Hyal Cast (test 4 See_Comment [Automat ed message] The code = UA Hyal Cast) system which generated this result transmit thelma reference range : <=2. The reference range was not used to interpr et this result as zana l/abnormal. [facility] [id number] 21:05:00 Test Item Value Reference Range Interpretation Comments UA Sq Epi (test code = UA Sq Epi) None Seen [facility] [id number] 21:05:00 Test Item Value Reference Range Interpretation Comments UA Color (test code = UA Color) YELLOW [facility] [id number] 20:43:00 Test Item Value Reference Range Interpretation Comments Procalcitonin Lvl (test no gt See_Comment [Au tomated message] code = Procalcitonin Lvl) Th e system which generated this result transmitted ref erence range: <=0.10. The reference range was not used to interpr et this result as normal/abnormal . [facility]paintannCHEM [id number] 20:43:00 Test Item Value Reference Range Interpretation Comments Lactic Acid Lvl (test code = Lactic 1.3 0.5-2.2 Acid Lvl) [id number] 20:43:00 Test Item Value Reference Range Interpretation Comments WBC (test code = WBC) 20.6 3.7-10.4 [facility] No[id number] 20:43:00 Test Item Value Reference Range Interpretation Comments RBC (test code = RBC) 4.33 4.20-5.40 [facility] NorthwestMspeoztGRLCIAWRSB8496-24-10 20:43:00 Test Item Value Reference Range Interpretation Comments Hgb (test code = Hgb) 11.2 12.0-16.0 [facility] NorthwestBlcsqnuTJXFHAZWMO9869-34-72 20:43:00 Test Item Value Reference Range Interpretation Comments Hct (test code = Hct) 35.9 36.0-48.0 [facility] NorthwestUtxqkcuKIWAYYVNYZ0632-66-09 20:43:00 Test Item Value Reference Range Interpretation Comments MCV (test code = MCV) 83.0 80.0-98.0 [facility] NorthwestNcseskrTODXRLWLBF3072-24-09 20:43:00 Test Item Value Reference Range Interpretation Comments MCH (test code = MCH) 25.9 pg 27.0-31.0 [facility] NorthwestLtdmluzZZGFFQJVZF9176-65-57 20:43:00 Test Item Value Reference Range Interpretation Comments MCHC (test code = MCHC) 31.2 32.0-36.0 [facility] NorthwestMlelygaIQOTDNQRWF7202-11-61 20:43:00 Test Item Value Reference Range Interpretation Comments RDW (test code = RDW) 14.9 11.5-14.5 [facility] NorthwestYdsqgznCBSONKTNUF8527-35-99 20:43:00 Test Item Value Reference Range Interpretation Comments Platelet (test code = Platelet) 358 363-450 [facility] NorthwestVjtvlfiXVWHPIIFZU3945-73-13 20:43:00 Test Item Value Reference Range Interpretation Comments MPV (test code = MPV) 7.9 7.4-10.4 [facility] NorthwestDolscooRXDLGESSUL6677-63-18 20:43:00 Test Item Value Reference Range Interpretation Comments PT (test code = PT) 14.3 s 12.0-14.7 [facility] NorthwestTzflhspMRBNWFFBYN9639-76-32 20:43:00 Test Item Value Reference Range Interpretation Comments INR (test code = INR) 1.11 1 0.85-1.17 [facility] NorthwestPwetdyiUAUPQPPFKD7912-59-12 20:43:00 Test Item Value Reference Range Interpretation Comments PTT (test code = PTT) 24.8 s 22.9-35.8 [facility] NorthwestJrdagrgCTKNUGTYCL0396-09-91 20:43:00 Test Item Value Reference Range Interpretation Comments Segs (test code = Segs) 88.7 45.0-75.0 [facility] NorthwestZthyqmbLQBASIWDPP4377-25-12 20:43:00 Test Item Value Reference Range Interpretation Comments Lymphocytes (test code = Lymphocytes) 5.5 20.0-40.0 [facility] NorthwestIdnwtycTEHFZAQZJV8856-67-83 20:43:00 Test Item Value Reference Range Interpretation Comments Monocytes (test code = Monocytes) 5.3 2.0-12.0 [facility] NorthwestZyudkwcHUCJVEMXQK3882-25-11 20:43:00 Test Item Value Reference Range Interpretation Comments Eosinophils (test code = 0.3 See_Comment [A utomated message] The Eosinophils) system which ge nerated this result tra nsmitted reference range : <=4.0. The reference r eric was not used to int erpret this result as normal/abnormal . [facility] NorthwestVjqnmdwUEEKYFIGHS2435-29-94 20:43:00 Test Item Value Reference Range Interpretation Comments Basophils (test code = 0.2 See_Comment [Aut omated message] The Basophils) system which ge nerated this result tra nsmitted reference range : <=1.0. The reference r eric was not used to int erpret this result as normal/abnormal . [facility] NorthwestKnbkcysSONDONFUSO0421-70-66 20:43:00 Test Item Value Reference Range Interpretation Comments Neutrophils # (test code = Neutrophils 18.2 1.5-8.1 #) [facility] NorthwestCewiplwQUAEOEKAIO6417-21-88 20:43:00 Test Item Value Reference Range Interpretation Comments Lymphocytes # (test code = Lymphocytes 1.1 1.0-5.5 #) [facility] NorthwestJpfnpppHERVQCYZKB4603-35-09 20:43:00 Test Item Value Reference Range Interpretation Comments Monocytes # (test code 1.1 See_Comment [Aut omated message] The = Monocytes #) system which generated this result tra nsmitted reference range : <=0.8. The reference r eric was not used to int erpret this result as normal/abnormal . [place] [address]1990-01-20 20:43:00 Test Item Value Reference Range Interpretation Comments Eosinophils # (test code 0.1 See_Comment [A utomated message] The = Eosinophils #) system whic h generated this result tra nsmitted reference range : <=0.5. The reference r eric was not used to int erpret this result as normal/abnormal . [facility] [id number] 20:43:00 Test Item Value Reference Range Interpretation Comments Procalcitonin Lvl (test no gt See_Comment [Au tomated message] code = Procalcitonin Lvl) Th e system which generated this result transmitted ref erence range: <=0.10. The reference range was not used to interpr et this result as normal/abnormal . [facility] [id number] 20:43:00 Test Item Value Reference Range Interpretation Comments Lactic Acid Lvl (test code = Lactic 1.3 0.5-2.2 Acid Lvl) [facility]HumydasWZKIMDPEJT2407-30-24 20:43:00 Test Item Value Reference Range Interpretation Comments WBC (test code = WBC) 20.6 3.7-10.4 [facility] CenterPmylnixMJSDGHZPMO5982-81-94 20:43:00 Test Item Value Reference Range Interpretation Comments RBC (test code = RBC) 4.33 4.20-5.40 [facility] CenterTqeruxqMHANHCWYXB5491-96-88 20:43:00 Test Item Value Reference Range Interpretation Comments Hgb (test code = Hgb) 11.2 12.0-16.0 [facility] CenterXzfhpkxSVWBEYVWGI3683-08-70 20:43:00 Test Item Value Reference Range Interpretation Comments Hct (test code = Hct) 35.9 36.0-48.0 [facility] CenterRvkgnydFRGQLILXYU2287-45-49 20:43:00 Test Item Value Reference Range Interpretation Comments MCV (test code = MCV) 83.0 80.0-98.0 [facility] CenterZhqlifmJTQLEBRIRN3459-05-86 20:43:00 Test Item Value Reference Range Interpretation Comments MCH (test code = MCH) 25.9 pg 27.0-31.0 [facility] CenterOsvyimlDNEHXUTSTV5779-52-67 20:43:00 Test Item Value Reference Range Interpretation Comments MCHC (test code = MCHC) 31.2 32.0-36.0 [place] 261990-01-20 20:43:00 Test Item Value Reference Range Interpretation Comments RDW (test code = RDW) 14.9 11.5-14.5 [place] 261990-01-20 20:43:00 Test Item Value Reference Range Interpretation Comments Platelet (test code = Platelet) 358 133-450 [place] 261990-01-20 20:43:00 Test Item Value Reference Range Interpretation Comments MPV (test code = MPV) 7.9 7.4-10.4 [place] 26[address]-01-20 20:43:00 Test Item Value Reference Range Interpretation Comments PT (test code = PT) 14.3 s 12.0-14.7 [place] 26[address]-01-20 20:43:00 Test Item Value Reference Range Interpretation Comments INR (test code = INR) 1.11 1 0.85-1.17 [facility] NorthwestYstwfzbMTXNWZSNUT4724-93-75 20:43:00 Test Item Value Reference Range Interpretation Comments PTT (test code = PTT) 24.8 s 22.9-35.8 [place] 26[address]-01-20 20:43:00 Test Item Value Reference Range Interpretation Comments Segs (test code = Segs) 88.7 45.0-75.0 [facility] NorthwestFoicmjeWBSYQFUEGM5579-00-43 20:43:00 Test Item Value Reference Range Interpretation Comments Lymphocytes (test code = Lymphocytes) 5.5 20.0-40.0 [facility] NorthwestTztvjxgGQJJAWVXSI7083-62-26 20:43:00 Test Item Value Reference Range Interpretation Comments Monocytes (test code = Monocytes) 5.3 2.0-12.0 [facility] NorthwestNabxpsaLDAGJMKCWS6799-86-74 20:43:00 Test Item Value Reference Range Interpretation Comments Eosinophils (test code = 0.3 See_Comment [A utomated message] The Eosinophils) system which ge nerated this result tra nsmitted reference range : <=4.0. The reference r eric was not used to int erpret this result as normal/abnormal . [place] [address]1990-01-20 20:43:00 Test Item Value Reference Range Interpretation Comments Basophils (test code = 0.2 See_Comment [Aut omated message] The Basophils) system which ge nerated this result tra nsmitted reference range : <=1.0. The reference r eric was not used to int erpret this result as normal/abnormal . [facility] NorthwestDuxqvodIRFUVDJGWW3542-99-04 20:43:00 Test Item Value Reference Range Interpretation Comments Neutrophils # (test code = Neutrophils 18.2 1.5-8.1 #) [facility] NorthwestUjxrnanGMQBMPNTAU1285-02-33 20:43:00 Test Item Value Reference Range Interpretation Comments Lymphocytes # (test code = Lymphocytes 1.1 1.0-5.5 #) [facility] NorthwestQxflvtdLUSGMCZLPD8631-05-01 20:43:00 Test Item Value Reference Range Interpretation Comments Monocytes # (test code 1.1 See_Comment [Aut omated message] The = Monocytes #) system which generated this result tra nsmitted reference range : <=0.8. The reference r eric was not used to int erpret this result as normal/abnormal . [facility] NorthwestEnphdmuKDSQTEKFIX0853-06-61 20:43:00 Test Item Value Reference Range Interpretation Comments Eosinophils # (test code 0.1 See_Comment [A utomated message] The = Eosinophils #) system whic h generated this result tra nsmitted reference range : <=0.5. The reference r eric was not used to int erpret this result as normal/abnormal . [facility] [id number] 20:43:00 Test Item Value Reference Range Interpretation Comments Procalcitonin Lvl (test no gt See_Comment [Au tomated message] code = Procalcitonin Lvl) Th e system which generated this result transmitted ref erence range: <=0.10. The reference range was not used to interpr et this result as normal/abnormal . [facility] [id number] 20:43:00 Test Item Value Reference Range Interpretation Comments Lactic Acid Lvl (test code = Lactic 1.3 0.5-2.2 Acid Lvl) [facility] Nor[id number] 20:43:00 Test Item Value Reference Range Interpretation Comments WBC (test code = WBC) 20.6 3.7-10.4 [facility] NorthwestLkylfvtCTAWARUCLX9348-37-50 20:43:00 Test Item Value Reference Range Interpretation Comments RBC (test code = RBC) 4.33 4.20-5.40 [place] 261990-01-20 20:43:00 Test Item Value Reference Range Interpretation Comments Hgb (test code = Hgb) 11.2 12.0-16.0 [facility]YjgkebzAUMGIGBGWI9157-08-91 20:43:00 Test Item Value Reference Range Interpretation Comments Hct (test code = Hct) 35.9 36.0-48.0 [facility] HospitalKmtknalMJIKSVWEKO2904-86-23 20:43:00 Test Item Value Reference Range Interpretation Comments MCV (test code = MCV) 83.0 80.0-98.0 [facility] HospitalDnsiyxoJQTEOFTOCC4469-91-69 20:43:00 Test Item Value Reference Range Interpretation Comments MCH (test code = MCH) 25.9 pg 27.0-31.0 [facility] HospitalMlntztiCAONYMYCUQ8661-94-60 20:43:00 Test Item Value Reference Range Interpretation Comments MCHC (test code = MCHC) 31.2 32.0-36.0 [facility] NorthwestSlnemhfQPXSBUIKLE4886-84-17 20:43:00 Test Item Value Reference Range Interpretation Comments RDW (test code = RDW) 14.9 11.5-14.5 [facility] NorthwestCqviuqaTSYACIJXDW0403-17-66 20:43:00 Test Item Value Reference Range Interpretation Comments Platelet (test code = Platelet) 358 133-450 [facility] NorthwestHssbadwWDAHGPFYEW3910-78-96 20:43:00 Test Item Value Reference Range Interpretation Comments MPV (test code = MPV) 7.9 7.4-10.4 [facility] NorthwestMcfvyayWWWBGNXLJK5689-40-97 20:43:00 Test Item Value Reference Range Interpretation Comments PT (test code = PT) 14.3 s 12.0-14.7 [facility] NorthwestHijlaqlFUANILJZRY5350-23-36 20:43:00 Test Item Value Reference Range Interpretation Comments INR (test code = INR) 1.11 1 0.85-1.17 [facility] NorthwestSluphawHIONFTNIKN1421-01-94 20:43:00 Test Item Value Reference Range Interpretation Comments PTT (test code = PTT) 24.8 s 22.9-35.8 [facility] NorthwestHttsegtAUREEQFFJV2749-64-80 20:43:00 Test Item Value Reference Range Interpretation Comments Segs (test code = Segs) 88.7 45.0-75.0 [facility] HospitalTkgeaqrYYRRAVHJSV9587-52-04 20:43:00 Test Item Value Reference Range Interpretation Comments Lymphocytes (test code = Lymphocytes) 5.5 20.0-40.0 [facility] NorthwestVkneymoWTSRHVMHBX4764-56-58 20:43:00 Test Item Value Reference Range Interpretation Comments Monocytes (test code = Monocytes) 5.3 2.0-12.0 [facility] NorthwestMbsbguoLKQNEGWGKC3109-68-96 20:43:00 Test Item Value Reference Range Interpretation Comments Eosinophils (test code = 0.3 See_Comment [A utomated message] The Eosinophils) system which ge nerated this result tra nsmitted reference range : <=4.0. The reference r eric was not used to int erpret this result as normal/abnormal . [facility] NorthwestDqoeizmHFWLFKPMUA2786-35-37 20:43:00 Test Item Value Reference Range Interpretation Comments Basophils (test code = 0.2 See_Comment [Aut omated message] The Basophils) system which ge nerated this result tra nsmitted reference range : <=1.0. The reference r eric was not used to int erpret this result as normal/abnormal . [facility] NorthwestKobttboCCWJHIDUCS5844-48-31 20:43:00 Test Item Value Reference Range Interpretation Comments Neutrophils # (test code = Neutrophils 18.2 1.5-8.1 #) [facility] NorthwestAdajkfkDKWMSKVNMO1541-30-10 20:43:00 Test Item Value Reference Range Interpretation Comments Lymphocytes # (test code = Lymphocytes 1.1 1.0-5.5 #) [facility] NorthwestCtlnvkuYLLAAJSZTQ7262-07-18 20:43:00 Test Item Value Reference Range Interpretation Comments Monocytes # (test code 1.1 See_Comment [Aut omated message] The = Monocytes #) system which generated this result tra nsmitted reference range : <=0.8. The reference r eric was not used to int erpret this result as normal/abnormal . [facility] NorthwestPsiflzjKRPKJVHSIV6755-63-77 20:43:00 Test Item Value Reference Range Interpretation Comments Eosinophils # (test code 0.1 See_Comment [A utomated message] The = Eosinophils #) system whic h generated this result tra nsmitted reference range : <=0.5. The reference r eric was not used to int erpret this result as normal/abnormal . [facility], EXTREMITY, LOWER, JOINT, WITHOUT CONTRAST, [id number] 17:12:00Reason for exam:->RT hip pain, concern occult [...] NarayanMDReport Verified Date/Time: 09/17/2018 17:12:01 Reading Location: [facility] B1 C013X Ortho Consult Reading Room RAD, KNEE, 3 VIEWS, [id number] 15:21:00 Reason for exam:->KNEE PAIN Should this [...] MDReport Verified Date/Time: 09/17/2018 15:21:02 Reading Location: [facility] Diagnostic Imaging Reading Room - [facility] 1.310.12 RAD, HIP, 2 VIEWS, [id number] 15:19:00Reason for exam:->Rt Hip Pain, traumaShould this be performed at the bedside?->NoFINAL REPORT RIGHT HIP History provided: Right hip pain No fracture or dislocation. Hip joint space well maintained. Evidence of extensive multilevel fusion procedure in the lumbarspine. Signed: Tony [place] Verified Date/Time: 09/17/2018 15:19:53 Reading Location: [facility] Imaging Reading Room - [facility] 1.310.12 [facility] AND [id number] 08:10:00 Test Item Value Reference Range Interpretation Comments UA Leuk Est (test Negative (12/10/16 3:10 code = UA Leuk Est) AM) [facility] AND [id number] 08:10:00 Test Item Value Reference Range Interpretation Comments UA Sq Epi (test code = UA Sq Occasional /LPF Epi) [facility] AND [id number] 08:10:00 Test Item Value Reference Range Interpretation Comments UA WBC (test code = no gt See_Comment [Automa thelma message] The UA WBC) system which ge nerated this result transmit thelma reference range : <=5. The reference range was not used to interpr et this result as zana l/abnormal. [facility] AND [id number] 08:10:00 Test Item Value Reference Range Interpretation Comments UA Mucus (test code = UA Mucus) Few /LPF [facility] AND [id number] 08:10:00 Test Item Value Reference Range Interpretation Comments UA Glucose (test code = UA Negative mg/dL Glucose) [facility] AND [id number] 08:10:00 Test Item Value Reference Range Interpretation Comments UA Ketones (test code = UA Negative mg/dL Ketones) [facility] AND [id number] 08:10:00 Test Item Value Reference Range Interpretation Comments UA Nitrite (test code Negative (12/10/16 3:10 = UA Nitrite) AM) [facility] AND [id number] 08:10:00 Test Item Value Reference Range Interpretation Comments UA Blood (test code = Negative (12/10/16 3:10 UA Blood) AM) [facility] AND [id number] 08:10:00 Test Item Value Reference Range Interpretation Comments UA Bili (test code = Negative *NA*(12/10/16 UA Bili) 3:10 AM) [facility] AND [id number] 08:10:00 Test Item Value Reference Range Interpretation Comments UA Color (test code = Light Yellow UA Color) *NA*(12/10/16 3:10 AM) [facility] AND [id number] 08:10:00 Test Item Value Reference Range Interpretation Comments UA Turbidity (test code = Clear (12/10/16 3:10 UA Turbidity) AM) [facility] AND [id number] 08:10:00 Test Item Value Reference Range Interpretation Comments UA pH (test code = UA pH) 6.5 5.0-8.0 [facility] AND [id number] 08:10:00 Test Item Value Reference Range Interpretation Comments UA Protein (test code = UA Negative mg/dL Protein) [facility] AND [id number] 08:10:00 Test Item Value Reference Range Interpretation Comments UA Spec Grav (test code = UA Spec Grav) 1.008 [facility] AND [id number] 08:10:00 Test Item Value Reference Range Interpretation Comments UA Urobilinogen (test code = UA <=1.0 mg/dL 0.1-1.0 Urobilinogen) [facility] AND [id number] 08:10:00 Test Item Value Reference Range Interpretation Comments UA Leuk Est (test Negative (12/10/16 3:10 code = UA Leuk Est) AM) [facility] AND [id number] 08:10:00 Test Item Value Reference Range Interpretation Comments UA Sq Epi (test code = UA Sq Occasional /LPF Epi) [facility] AND [id number] 08:10:00 Test Item Value Reference Range Interpretation Comments UA WBC (test code = no gt See_Comment [Automa thelma message] The UA WBC) system which ge nerated this result transmit thelma reference range : <=5. The reference range was not used to interpr et this result as zana l/abnormal. [facility] AND [id number] 08:10:00 Test Item Value Reference Range Interpretation Comments UA Mucus (test code = UA Mucus) Few /LPF [facility] AND [id number] 08:10:00 Test Item Value Reference Range Interpretation Comments UA Glucose (test code = UA Negative mg/dL Glucose) [facility] AND [id number] 08:10:00 Test Item Value Reference Range Interpretation Comments UA Ketones (test code = UA Negative mg/dL Ketones) [facility] AND [id number] 08:10:00 Test Item Value Reference Range Interpretation Comments UA Nitrite (test code Negative (12/10/16 3:10 = UA Nitrite) AM) [facility] AND [id number] 08:10:00 Test Item Value Reference Range Interpretation Comments UA Blood (test code = Negative (12/10/16 3:10 UA Blood) AM) [facility] AND [id number] 08:10:00 Test Item Value Reference Range Interpretation Comments UA Bili (test code = Negative *NA*(12/10/16 UA Bili) 3:10 AM) [facility] AND [id number] 08:10:00 Test Item Value Reference Range Interpretation Comments UA Color (test code = Light Yellow UA Color) *NA*(12/10/16 3:10 AM) [facility] AND [id number] 08:10:00 Test Item Value Reference Range Interpretation Comments UA Turbidity (test code = Clear (12/10/16 3:10 UA Turbidity) AM) [facility] AND [id number] 08:10:00 Test Item Value Reference Range Interpretation Comments UA pH (test code = UA pH) 6.5 5.0-8.0 [facility] AND [id number] 08:10:00 Test Item Value Reference Range Interpretation Comments UA Protein (test code = UA Negative mg/dL Protein) [facility] AND [id number] 08:10:00 Test Item Value Reference Range Interpretation Comments UA Spec Grav (test code = UA Spec Grav) 1.008 [facility] AND [id number] 08:10:00 Test Item Value Reference Range Interpretation Comments UA Urobilinogen (test code = UA <=1.0 mg/dL 0.1-1.0 Urobilinogen) [facility] AND [id number] 08:10:00 Test Item Value Reference Range Interpretation Comments UA Leuk Est (test Negative (3/29/17 3:10 code = UA Leuk Est) AM) [facility] AND [id number] 08:10:00 Test Item Value Reference Range Interpretation Comments UA Sq Epi (test code = UA Sq Occasional /LPF Epi) [facility] AND [id number] 08:10:00 Test Item Value Reference Range Interpretation Comments UA WBC (test code = no gt See_Comment [Automa thelma message] The UA WBC) system which ge nerated this result transmit thelma reference range : <=5. The reference range was not used to interpr et this result as zana l/abnormal. [facility] AND [id number] 08:10:00 Test Item Value Reference Range Interpretation Comments UA Mucus (test code = UA Mucus) Few /LPF [facility] AND [id number] 08:10:00 Test Item Value Reference Range Interpretation Comments UA Glucose (test code = UA Negative mg/dL Glucose) [facility] AND [id number] 08:10:00 Test Item Value Reference Range Interpretation Comments UA Ketones (test code = UA Negative mg/dL Ketones) [facility] AND [id number] 08:10:00 Test Item Value Reference Range Interpretation Comments UA Nitrite (test code Negative (12/10/16 3:10 = UA Nitrite) AM) [facility] AND [id number] 08:10:00 Test Item Value Reference Range Interpretation Comments UA Blood (test code = Negative (12/10/16 3:10 UA Blood) AM) [facility] AND [id number] 08:10:00 Test Item Value Reference Range Interpretation Comments UA Bili (test code = Negative *NA*(12/10/16 UA Bili) 3:10 AM) [facility] AND [id number] 08:10:00 Test Item Value Reference Range Interpretation Comments UA Color (test code = Light Yellow UA Color) *NA*(12/10/16 3:10 AM) [facility] AND [id number] 08:10:00 Test Item Value Reference Range Interpretation Comments UA Turbidity (test code = Clear (12/10/16 3:10 UA Turbidity) AM) [facility] AND [id number] 08:10:00 Test Item Value Reference Range Interpretation Comments UA pH (test code = UA pH) 6.5 5.0-8.0 [facility] [id number] 08:10:00 Test Item Value Reference Range Interpretation Comments UA Protein (test code = UA Negative mg/dL Protein) [facility] AND [id number] 08:10:00 Test Item Value Reference Range Interpretation Comments UA Spec Grav (test code = UA Spec Grav) 1.008 [facility] AND [id number] 08:10:00 Test Item Value Reference Range Interpretation Comments UA Urobilinogen (test code = UA <=1.0 mg/dL 0.1-1.0 Urobilinogen) [facility] CenterPiximCARBioCryst PharmaceuticalsAC [id number] 07:48:00 Test Item Value Reference Range Interpretation Comments Total CK (test code = Total CK) 59 12-191 [facility] CenterPaladionAC [id number] 07:48:00 Test Item Value Reference Range Interpretation Comments Troponin-I (test code no gt See_Comment [Auto mated message] The = Troponin-I) system which g enerated this result transmit thelma reference range : <=0.40. The reference r eric was not used to interpr et this result as zana l/abnormal. [facility] [employer] [id number] 07:48:00 Test Item Value Reference Range Interpretation Comments CK MB (test code = CK MB) 1.4 0.5-3.6 [facility] CenterPaladionAC [id number] 07:48:00 Test Item Value Reference Range Interpretation Comments CK MB Index (test 2.4 See_Comment [Automate d message] The code = CK MB Index) system w [facility] generated this result transmit thelma reference range : <=2.5. The reference range was not used to interpr et this result as zana l/abnormal. [facility] [employer] [id number] 07:48:00 Test Item Value Reference Range Interpretation Comments eGFR (test code = eGFR) 55 [facility] [employer] [id number] 07:48:00 Test Item Value Reference Range Interpretation Comments B/C Ratio (test code = B/C Ratio) 23 6-25 [facility] [employer] [id number] 07:48:00 Test Item Value Reference Range Interpretation Comments Globulin (test code = Globulin) 3.5 2.7-4.2 [facility]2017-03-29 07:48:00 Test Item Value Reference Range Interpretation Comments AGAP (test code = AGAP) 16.2 10.0-20.0 [facility]2017-03-29 07:48:00 Test Item Value Reference Range Interpretation Comments Creatinine Lvl (test code = Creatinine 1.04 0.50-1.40 Lvl) [facility]2017-03-29 07:48:00 Test Item Value Reference Range Interpretation Comments Sodium Lvl (test code = Sodium Lvl) 139 135-145 [facility]2017-03-29 07:48:00 Test Item Value Reference Range Interpretation Comments BUN (test code = BUN) 24 - [facility]2017-03-29 07:48:00 Test Item Value Reference Range Interpretation Comments Glucose Lvl (test code = Glucose Lvl) 153 70-99 [facility]2017-03-29 07:48:00 Test Item Value Reference Range Interpretation Comments A/G Ratio (test code = A/G Ratio) 1.1 0.7-1.6 [facility]2017-03-29 07:48:00 Test Item Value Reference Range Interpretation Comments Calcium Lvl (test code = Calcium Lvl) 9.6 8.5-10.5 [facility]2017-03-29 07:48:00 Test Item Value Reference Range Interpretation Comments Total Protein (test code = Total 7.3 6.4-8.4 Protein) [facility]2017-03-29 07:48:00 Test Item Value Reference Range Interpretation Comments Chloride Lvl (test code = Chloride Lvl) 106 95-109 [facility]2017-03-29 07:48:00 Test Item Value Reference Range Interpretation Comments CO2 (test code = CO2) -32 [facility]2017-03-29 07:48:00 Test Item Value Reference Range Interpretation Comments Potassium Lvl (test code = Potassium 5.2 3.5-5.1 Lvl) [facility]2017-03-29 07:48:00 Test Item Value Reference Range Interpretation Comments Bili Total (test code = Bili Total) 0.1 0.2-1.3 [facility]2017-03-29 07:48:00 Test Item Value Reference Range Interpretation Comments AST (test code = AST) 12 See_Comment [Auto mated message] The system which ge nerated this result transmit thelma reference range : <=37. The reference range was not used to interpr et this result as zana l/abnormal. [facility]2017-03-29 07:48:00 Test Item Value Reference Range Interpretation Comments Alk Phos (test code = Alk Phos) 58 39-136 [facility]2017-03-29 07:48:00 Test Item Value Reference Range Interpretation Comments ALT (test code = ALT) 15 See_Comment [Auto mated message] The system which ge nerated this result transmit thelma reference range : <=65. The reference range was not used to interpr et this result as zana l/abnormal. [facility]2017-03-29 07:48:00 Test Item Value Reference Range Interpretation Comments Albumin Lvl (test code = Albumin Lvl) 3.8 3.5-5.0 [facility] No[id number] 07:48:00 Test Item Value Reference Range Interpretation Comments WBC (test code = WBC) 10.0 3.7-10.4 [facility] Nort[id number] 07:48:00 Test Item Value Reference Range Interpretation Comments MCV (test code = MCV) 83.2 80.0-98.0 [facility] NorthwestNxyidvmOEAWGBAJXN7389-57-86 07:48:00 Test Item Value Reference Range Interpretation Comments Hct (test code = Hct) 38.1 36.0-48.0 [facility] NorthwestUisvprhWWTYVUXURX7488-79-61 07:48:00 Test Item Value Reference Range Interpretation Comments Hgb (test code = Hgb) 12.3 12.0-16.0 [facility] NorthwestGwwcdswWLIFDABQRI0806-95-96 07:48:00 Test Item Value Reference Range Interpretation Comments RBC (test code = RBC) 4.57 4.20-5.40 [place] 662437-03-29 07:48:00 Test Item Value Reference Range Interpretation Comments RDW (test code = RDW) 14.1 11.5-14.5 [facility] NorthwestPelapkxUHLNBVPTPU4227-31-25 07:48:00 Test Item Value Reference Range Interpretation Comments MCHC (test code = MCHC) 32.2 32.0-36.0 [facility] NorthwestMvhmngfUCEUUZPQSX4827-58-73 07:48:00 Test Item Value Reference Range Interpretation Comments MPV (test code = MPV) 9.2 7.4-10.4 [facility] NorthwestArakmsqXFAROPAFWA2717-60-43 07:48:00 Test Item Value Reference Range Interpretation Comments MCH (test code = MCH) 26.8 pg 27.0-31.0 [facility] NorthwestTuxjigrAIVXYGRKLG0381-45-32 07:48:00 Test Item Value Reference Range Interpretation Comments Platelet (test code = Platelet) 279 133-450 [facility] NorthwestPitpggtFVMKBXAUBO2388-64-06 07:48:00 Test Item Value Reference Range Interpretation Comments PTT (test code = PTT) 26.5 s 22.9-35.8 [facility] NorthwestVnrgplgLONGFQGRQK8869-88-89 07:48:00 Test Item Value Reference Range Interpretation Comments INR (test code = INR) 0.99 0.85-1.17 [facility] NorthwestMoiytrbEZMYLAOLPC9331-50-28 07:48:00 Test Item Value Reference Range Interpretation Comments PT (test code = PT) 13.3 s 12.0-14.7 [facility] NorthwestMqyzdvzSYHGLGXTQF4863-98-06 07:48:00 Test Item Value Reference Range Interpretation Comments Monocytes # (test code 0.7 See_Comment [Aut omated message] The = Monocytes #) system which generated this result tra nsmitted reference range : <=0.8. The reference r eric was not used to int erpret this result as normal/abnormal . [facility] NorthwestTplsjlkRTWAETYGXN3754-20-66 07:48:00 Test Item Value Reference Range Interpretation Comments Lymphocytes # (test code = Lymphocytes 1.9 1.0-5.5 #) [facility] NorthwestZsofharGIOEMBLUYJ4086-24-79 07:48:00 Test Item Value Reference Range Interpretation Comments Basophils # (test code 0.1 See_Comment [Aut omated message] The = Basophils #) system which generated this result tra nsmitted reference range : <=0.2. The reference r eric was not used to int erpret this result as normal/abnormal . [facility] NorthwestUljigljCGRYQHESOQ2653-47-80 07:48:00 Test Item Value Reference Range Interpretation Comments Eosinophils # (test code 0.5 See_Comment [A utomated message] The = Eosinophils #) system whic h generated this result tra nsmitted reference range : <=0.5. The reference r eric was not used to int erpret this result as normal/abnormal . [facility] NorthwestTyahtxqSOFGZJIADG5482-13-90 07:48:00 Test Item Value Reference Range Interpretation Comments Segs (test code = Segs) 68.0 45.0-75.0 [facility] NorthwestNqsazhoGHCQHFUTQD7735-47-82 07:48:00 Test Item Value Reference Range Interpretation Comments Eosinophils (test code = 4.7 See_Comment [A utomated message] The Eosinophils) system which ge nerated this result tra nsmitted reference range : <=4.0. The reference r eric was not used to int erpret this result as normal/abnormal . [facility] NorthwestNzpxkkoBHLVLJSDAR0879-76-60 07:48:00 Test Item Value Reference Range Interpretation Comments Monocytes (test code = Monocytes) 7.4 2.0-12.0 [facility] NorthwestCvlqndnOSKCSSDBKH0764-44-12 07:48:00 Test Item Value Reference Range Interpretation Comments Lymphocytes (test code = Lymphocytes) 19.4 20.0-40.0 [facility] NorthwestTfwdqoxKOFFHNBWEB4228-00-27 07:48:00 Test Item Value Reference Range Interpretation Comments Segs-Bands # (test code = Segs-Bands #) 6.8 1.5-8.1 [facility] NorthwestUmkftutNMVKZQMIVM0054-70-68 07:48:00 Test Item Value Reference Range Interpretation Comments Basophils (test code = 0.5 See_Comment [Aut omated message] The Basophils) system which ge nerated this result tra nsmitted reference range : <=1.0. The reference r eric was not used to int erpret this result as normal/abnormal . [facility] [id number] 07:48:00 Test Item Value Reference Range Interpretation Comments Total CK (test code = Total CK) 59 12-191 [facility] [id number] 07:48:00 Test Item Value Reference Range Interpretation Comments Troponin-I (test code no gt See_Comment [Auto mated message] The = Troponin-I) system which g enerated this result transmit thelma reference range : <=0.40. The reference r eric was not used to interpr et this result as zana l/abnormal. [facility] [id number] 07:48:00 Test Item Value Reference Range Interpretation Comments CK MB (test code = CK MB) 1.4 0.5-3.6 [facility]annCARD[facility]AC [id number] 07:48:00 Test Item Value Reference Range Interpretation Comments CK MB Index (test 2.4 See_Comment [Automate d message] The code = CK MB Index) system w [facility] generated this result transmit thelma reference range : <=2.5. The reference range was not used to interpr et this result as zana l/abnormal. [facility] [id number] 07:48:00 Test Item Value Reference Range Interpretation Comments eGFR (test code = eGFR) 55 [facility]Play[facility] [id number] 07:48:00 Test Item Value Reference Range Interpretation Comments B/C Ratio (test code = B/C Ratio) 23 6-25 [facility] [id number] 07:48:00 Test Item Value Reference Range Interpretation Comments Globulin (test code = Globulin) 3.5 2.7-4.2 [facility] [id number] 07:48:00 Test Item Value Reference Range Interpretation Comments AGAP (test code = AGAP) 16.2 10.0-20.0 [facility] [id number] 07:48:00 Test Item Value Reference Range Interpretation Comments Creatinine Lvl (test code = Creatinine 1.04 0.50-1.40 Lvl) [facility] [id number] 07:48:00 Test Item Value Reference Range Interpretation Comments Sodium Lvl (test code = Sodium Lvl) 139 135-145 [facility] [id number] 07:48:00 Test Item Value Reference Range Interpretation Comments BUN (test code = BUN) 24 7-22 [facility] [id number] 07:48:00 Test Item Value Reference Range Interpretation Comments Glucose Lvl (test code = Glucose Lvl) 153 70-99 [facility] [id number] 07:48:00 Test Item Value Reference Range Interpretation Comments A/G Ratio (test code = A/G Ratio) 1.1 0.7-1.6 [facility]2017-03-29 07:48:00 Test Item Value Reference Range Interpretation Comments Calcium Lvl (test code = Calcium Lvl) 9.6 8.5-10.5 [facility]2017-03-29 07:48:00 Test Item Value Reference Range Interpretation Comments Total Protein (test code = Total 7.3 6.4-8.4 Protein) [facility]2017-03-29 07:48:00 Test Item Value Reference Range Interpretation Comments Chloride Lvl (test code = Chloride Lvl) 106 95-109 [facility]2017-03-29 07:48:00 Test Item Value Reference Range Interpretation Comments CO2 (test code = CO2) 22 24-32 [facility]2017-03-29 07:48:00 Test Item Value Reference Range Interpretation Comments Potassium Lvl (test code = Potassium 5.2 3.5-5.1 Lvl) [facility]2017-03-29 07:48:00 Test Item Value Reference Range Interpretation Comments Bili Total (test code = Bili Total) 0.1 0.2-1.3 [place] [id number] 07:48:00 Test Item Value Reference Range Interpretation Comments AST (test code = AST) 12 See_Comment [Auto mated message] The system which ge nerated this result transmit thelma reference range : <=37. The reference range was not used to interpr et this result as zana l/abnormal. [facility]2017-03-29 07:48:00 Test Item Value Reference Range Interpretation Comments Alk Phos (test code = Alk Phos) 58 39-136 [facility]2017-03-29 07:48:00 Test Item Value Reference Range Interpretation Comments ALT (test code = ALT) 15 See_Comment [Auto mated message] The system which ge nerated this result transmit thelma reference range : <=65. The reference range was not used to interpr et this result as zana l/abnormal. [facility]2017-03-29 07:48:00 Test Item Value Reference Range Interpretation Comments Albumin Lvl (test code = Albumin Lvl) 3.8 3.5-5.0 [facility] NorthwestDbzhwucXQVMUJATMU6392-43-91 07:48:00 Test Item Value Reference Range Interpretation Comments WBC (test code = WBC) 10.0 3.7-10.4 [facility] NorthwestNqtabqyVOCVKEIRSZ8576-28-61 07:48:00 Test Item Value Reference Range Interpretation Comments MCV (test code = MCV) 83.2 80.0-98.0 [facility] NorthwestMqhbpgzZDFBZUXAQV6365-90-36 07:48:00 Test Item Value Reference Range Interpretation Comments Hct (test code = Hct) 38.1 36.0-48.0 [facility] NorthwestUvemdhbYBTHMTCOVE2757-28-81 07:48:00 Test Item Value Reference Range Interpretation Comments Hgb (test code = Hgb) 12.3 12.0-16.0 [facility] NorthwestJrjhkbbJDJUOAQTFZ1052-49-97 07:48:00 Test Item Value Reference Range Interpretation Comments RBC (test code = RBC) 4.57 4.20-5.40 [facility] NorthwestFqykogtQWDDKFTLIP5149-43-22 07:48:00 Test Item Value Reference Range Interpretation Comments RDW (test code = RDW) 14.1 11.5-14.5 [facility] NorthwestSpgclsrVCHIEKZPRP9866-31-07 07:48:00 Test Item Value Reference Range Interpretation Comments MCHC (test code = MCHC) 32.2 32.0-36.0 [facility] NorthwestRcydhwjGRRZIPXGQL6145-40-77 07:48:00 Test Item Value Reference Range Interpretation Comments MPV (test code = MPV) 9.2 7.4-10.4 [facility] NorthwestTclsxneWMYIRIOUCV3640-53-52 07:48:00 Test Item Value Reference Range Interpretation Comments MCH (test code = MCH) 26.8 pg 27.0-31.0 [facility] NorthwestQqkhzecQMKLVNYMCQ9779-63-67 07:48:00 Test Item Value Reference Range Interpretation Comments Platelet (test code = Platelet) 279 133-450 [facility] NorthwestGkvkoirIUXCIEDODW5884-90-57 07:48:00 Test Item Value Reference Range Interpretation Comments PTT (test code = PTT) 26.5 s 22.9-35.8 [facility] NorthwestJgqleiuMPQSVTTWSB7892-29-88 07:48:00 Test Item Value Reference Range Interpretation Comments INR (test code = INR) 0.99 0.85-1.17 [facility] NorthwestThhswshBTQGVOQIBM5181-84-31 07:48:00 Test Item Value Reference Range Interpretation Comments PT (test code = PT) 13.3 s 12.0-14.7 [place] [id number] 07:48:00 Test Item Value Reference Range Interpretation Comments Monocytes # (test code 0.7 See_Comment [Aut omated message] The = Monocytes #) system which generated this result tra nsmitted reference range : <=0.8. The reference r eric was not used to int erpret this result as normal/abnormal . [facility] NorthwestHyneykjCLOKSIDNMA5780-66-97 07:48:00 Test Item Value Reference Range Interpretation Comments Lymphocytes # (test code = Lymphocytes 1.9 1.0-5.5 #) [facility] NorthwestQajvcsvOUPVFPSMAG5772-85-18 07:48:00 Test Item Value Reference Range Interpretation Comments Basophils # (test code 0.1 See_Comment [Aut omated message] The = Basophils #) system which generated this result tra nsmitted reference range : <=0.2. The reference r eric was not used to int erpret this result as normal/abnormal . [facility] NorthwestZgswsckUHGVSBAUYI5994-65-39 07:48:00 Test Item Value Reference Range Interpretation Comments Eosinophils # (test code 0.5 See_Comment [A utomated message] The = Eosinophils #) system whic h generated this result tra nsmitted reference range : <=0.5. The reference r eric was not used to int erpret this result as normal/abnormal . [facility] NorthwestSidpymoNQXELQYXJA6997-87-18 07:48:00 Test Item Value Reference Range Interpretation Comments Segs (test code = Segs) 68.0 45.0-75.0 [facility] NorthwestLjjtwyuDABBCOJFOE3731-84-72 07:48:00 Test Item Value Reference Range Interpretation Comments Eosinophils (test code = 4.7 See_Comment [A utomated message] The Eosinophils) system which ge nerated this result tra nsmitted reference range : <=4.0. The reference r eric was not used to int erpret this result as normal/abnormal . [facility] NorthwestAmbtcbxQUBWMLNYBB5548-95-88 07:48:00 Test Item Value Reference Range Interpretation Comments Monocytes (test code = Monocytes) 7.4 2.0-12.0 [facility] NorthwestKeaofxsVOQMAEYWEP7336-24-76 07:48:00 Test Item Value Reference Range Interpretation Comments Lymphocytes (test code = Lymphocytes) 19.4 20.0-40.0 [facility] NorthwestTxhdymkSJGHRTUYSB6335-30-49 07:48:00 Test Item Value Reference Range Interpretation Comments Segs-Bands # (test code = Segs-Bands #) 6.8 1.5-8.1 [facility] HospitalKlodxuoRKRTPAANIS8266-09-30 07:48:00 Test Item Value Reference Range Interpretation Comments Basophils (test code = 0.5 See_Comment [Aut omated message] The Basophils) system which ge nerated this result tra nsmitted reference range : <=1.0. The reference r eric was not used to int erpret this result as normal/abnormal . [facility] [employer]2017-03-29 07:48:00 Test Item Value Reference Range Interpretation Comments Total CK (test code = Total CK) 59 12-191 [facility] [employer]2017-03-29 07:48:00 Test Item Value Reference Range Interpretation Comments Troponin-I (test code no gt See_Comment [Auto mated message] The = Troponin-I) system which g enerated this result transmit thelma reference range : <=0.40. The reference r eric was not used to interpr et this result as zana l/abnormal. [facility] [employer]2017-03-29 07:48:00 Test Item Value Reference Range Interpretation Comments CK MB (test code = CK MB) 1.4 0.5-3.6 [facility] [employer]2017-03-29 07:48:00 Test Item Value Reference Range Interpretation Comments CK MB Index (test 2.4 See_Comment [Automate d message] The code = CK MB Index) system w [facility] generated this result transmit thelma reference range : <=2.5. The reference range was not used to interpr et this result as zana l/abnormal. [facility] [employer]2017-03-29 07:48:00 Test Item Value Reference Range Interpretation Comments eGFR (test code = eGFR) 55 [facility] [employer]2017-03-29 07:48:00 Test Item Value Reference Range Interpretation Comments B/C Ratio (test code = B/C Ratio) 23 6-25 [facility] [employer]2017-03-29 07:48:00 Test Item Value Reference Range Interpretation Comments Globulin (test code = Globulin) 3.5 2.7-4.2 [facility] [employer]2017-03-29 07:48:00 Test Item Value Reference Range Interpretation Comments AGAP (test code = AGAP) 16.2 10.0-20.0 [facility]2017-03-29 07:48:00 Test Item Value Reference Range Interpretation Comments Creatinine Lvl (test code = Creatinine 1.04 0.50-1.40 Lvl) [facility]2017-03-29 07:48:00 Test Item Value Reference Range Interpretation Comments Sodium Lvl (test code = Sodium Lvl) 139 135-145 [facility]2017-03-29 07:48:00 Test Item Value Reference Range Interpretation Comments BUN (test code = BUN) 24 7-22 [facility]2017-03-29 07:48:00 Test Item Value Reference Range Interpretation Comments Glucose Lvl (test code = Glucose Lvl) 153 70-99 [facility]2017-03-29 07:48:00 Test Item Value Reference Range Interpretation Comments A/G Ratio (test code = A/G Ratio) 1.1 0.7-1.6 [facility]2017-03-29 07:48:00 Test Item Value Reference Range Interpretation Comments Calcium Lvl (test code = Calcium Lvl) 9.6 8.5-10.5 [facility]2017-03-29 07:48:00 Test Item Value Reference Range Interpretation Comments Total Protein (test code = Total 7.3 6.4-8.4 Protein) [facility]2017-03-29 07:48:00 Test Item Value Reference Range Interpretation Comments Chloride Lvl (test code = Chloride Lvl) 106 95-109 [facility]2017-03-29 07:48:00 Test Item Value Reference Range Interpretation Comments CO2 (test code = CO2) 22 24-32 [facility]2017-03-29 07:48:00 Test Item Value Reference Range Interpretation Comments Potassium Lvl (test code = Potassium 5.2 3.5-5.1 Lvl) [facility]2017-03-29 07:48:00 Test Item Value Reference Range Interpretation Comments Bili Total (test code = Bili Total) 0.1 0.2-1.3 [facility]2017-03-29 07:48:00 Test Item Value Reference Range Interpretation Comments AST (test code = AST) 12 See_Comment [Auto mated message] The system which ge nerated this result transmit thelma reference range : <=37. The reference range was not used to interpr et this result as zana l/abnormal. [facility]2017-03-29 07:48:00 Test Item Value Reference Range Interpretation Comments Alk Phos (test code = Alk Phos) 58 39-136 [facility] [id number] 07:48:00 Test Item Value Reference Range Interpretation Comments ALT (test code = ALT) 15 See_Comment [Auto mated message] The system which ge nerated this result transmit thelma reference range : <=65. The reference range was not used to interpr et this result as zana l/abnormal. [facility] [id number] 07:48:00 Test Item Value Reference Range Interpretation Comments Albumin Lvl (test code = Albumin Lvl) 3.8 3.5-5.0 [facility] NorthwestHriorydQFGLBGQBYU1025-25-18 07:48:00 Test Item Value Reference Range Interpretation Comments WBC (test code = WBC) 10.0 3.7-10.4 [facility] NorthwestJohhqkqVBWGATRLXW4033-24-33 07:48:00 Test Item Value Reference Range Interpretation Comments MCV (test code = MCV) 83.2 80.0-98.0 [facility] NorthwestUctgnhfABGDQOWARR4122-63-56 07:48:00 Test Item Value Reference Range Interpretation Comments Hct (test code = Hct) 38.1 36.0-48.0 [facility] NorthwestPhjpgopLMKSOTEFMP4923-72-38 07:48:00 Test Item Value Reference Range Interpretation Comments Hgb (test code = Hgb) 12.3 12.0-16.0 [facility] NorthwestHheyzgbPGUCYKZFIU2884-09-06 07:48:00 Test Item Value Reference Range Interpretation Comments RBC (test code = RBC) 4.57 4.20-5.40 [facility] NorthwestGgakkmcUKGMKBKNGZ6335-18-74 07:48:00 Test Item Value Reference Range Interpretation Comments RDW (test code = RDW) 14.1 11.5-14.5 [facility] NorthwestAbvzplbTMDIEOKBAO2591-13-36 07:48:00 Test Item Value Reference Range Interpretation Comments MCHC (test code = MCHC) 32.2 32.0-36.0 [facility] NorthwestJeippccIAVPTGJHRF7322-86-01 07:48:00 Test Item Value Reference Range Interpretation Comments MPV (test code = MPV) 9.2 7.4-10.4 [facility] NorthwestXgoxsirPWORCVRWVC3514-03-29 07:48:00 Test Item Value Reference Range Interpretation Comments MCH (test code = MCH) 26.8 pg 27.0-31.0 [facility] NorthwestKfvvldfWHPTXJVALW2277-72-35 07:48:00 Test Item Value Reference Range Interpretation Comments Platelet (test code = Platelet) 279 133-450 [facility] NorthwestSjdsqffRVUCNHGKZZ2215-11-86 07:48:00 Test Item Value Reference Range Interpretation Comments PTT (test code = PTT) 26.5 s 22.9-35.8 [facility] NorthwestOrjnnevGJZFCHYUKN5569-77-28 07:48:00 Test Item Value Reference Range Interpretation Comments INR (test code = INR) 0.99 0.85-1.17 [facility] NorthwestQtcvdboEEWFVMQPNV9883-44-40 07:48:00 Test Item Value Reference Range Interpretation Comments PT (test code = PT) 13.3 s 12.0-14.7 [facility] NorthwestWjfdwdyPNKELIQFMZ6281-97-93 07:48:00 Test Item Value Reference Range Interpretation Comments Monocytes # (test code 0.7 See_Comment [Aut omated message] The = Monocytes #) system which generated this result tra nsmitted reference range : <=0.8. The reference r eric was not used to int erpret this result as normal/abnormal . [facility] NorthwestVejflrvOBRNEYJHKV0844-59-89 07:48:00 Test Item Value Reference Range Interpretation Comments Lymphocytes # (test code = Lymphocytes 1.9 1.0-5.5 #) [facility] NorthwestDgwyfrjXRGMVKKFKV9654-26-32 07:48:00 Test Item Value Reference Range Interpretation Comments Basophils # (test code 0.1 See_Comment [Aut omated message] The = Basophils #) system which generated this result tra nsmitted reference range : <=0.2. The reference r eric was not used to int erpret this result as normal/abnormal . [facility] NorthwestFzrintoTTYBUUPTJY3150-21-37 07:48:00 Test Item Value Reference Range Interpretation Comments Eosinophils # (test code 0.5 See_Comment [A utomated message] The = Eosinophils #) system whic h generated this result tra nsmitted reference range : <=0.5. The reference r eric was not used to int erpret this result as normal/abnormal . [facility] NorthwestXrsodllBIXCVVDPHR4311-04-47 07:48:00 Test Item Value Reference Range Interpretation Comments Segs (test code = Segs) 68.0 45.0-75.0 [facility] NorthwestSfowqnrQDWNOCNUDH0983-26-32 07:48:00 Test Item Value Reference Range Interpretation Comments Eosinophils (test code = 4.7 See_Comment [A utomated message] The Eosinophils) system which ge nerated this result tra nsmitted reference range : <=4.0. The reference r eric was not used to int erpret this result as normal/abnormal . [facility] NorthwestDlovzxyZGNAFZUBEJ2460-92-43 07:48:00 Test Item Value Reference Range Interpretation Comments Monocytes (test code = Monocytes) 7.4 2.0-12.0 [facility] NorthwestPmjlzueVDDFWIAOFR6780-58-93 07:48:00 Test Item Value Reference Range Interpretation Comments Lymphocytes (test code = Lymphocytes) 19.4 20.0-40.0 [facility] NorthwestBumiierAKVXRTSCIK7786-23-94 07:48:00 Test Item Value Reference Range Interpretation Comments Segs-Bands # (test code = Segs-Bands #) 6.8 1.5-8.1 [facility] NorthwestYsarkirUCGCHRGPPW9398-52-65 07:48:00 Test Item Value Reference Range Interpretation Comments Basophils (test code = 0.5 See_Comment [Aut omated message] The Basophils) system which ge nerated this result tra nsmitted reference range : <=1.0. The reference r eric was not used to int erpret this result as normal/abnormal . [facility] 08:34:00 Test Item Value Reference Range Interpretation Comments Troponin-I (test code no gt See_Comment [Auto mated message] The = Troponin-I) system which g enerated this result transmit thelma reference range : <=0.40. The reference r eric was not used to interpr et this result as zana l/abnormal. [facility]TR[facility] DVUFMWA2272-79-65 08:34:00 Test Item Value Reference Range Interpretation Comments CK MB (test code = CK MB) 1.9 0.5-3.6 [facility] YDZKWPX8463-72-57 08:34:00 Test Item Value Reference Range Interpretation Comments Total CK (test code = Total CK) 82 12-191 [facility] HospitalCARD[facility]AC PGTUWYO1059-35-20 08:34:00 Test Item Value Reference Range Interpretation Comments CK MB Index (test 2.3 See_Comment [Automate d message] The code = CK MB Index) system w [facility] generated this result transmit thelma reference range : <=2.5. The reference range was not used to interpr et this result as zana l/abnormal. [facility]2015-09-26 08:34:00 Test Item Value Reference Range Interpretation Comments Ammonia (test code = Ammonia) 13.0 [facility]2015-09-26 08:34:00 Test Item Value Reference Range Interpretation Comments eGFR (test code = eGFR) 65 [facility]2015-09-26 08:34:00 Test Item Value Reference Range Interpretation Comments ALT (test code = ALT) 20 See_Comment [Auto mated message] The system which ge nerated this result transmit thelma reference range : <=65. The reference range was not used to interpr et this result as zana l/abnormal. [facility]2015-09-26 08:34:00 Test Item Value Reference Range Interpretation Comments AST (test code = AST) 13 See_Comment [Auto mated message] The system which ge nerated this result transmit thelma reference range : <=37. The reference range was not used to interpr et this result as zana l/abnormal. [facility]2015-09-26 08:34:00 Test Item Value Reference Range Interpretation Comments Bili Total (test code = Bili Total) 0.6 0.2-1.3 [facility]2015-09-26 08:34:00 Test Item Value Reference Range Interpretation Comments AGAP (test code = AGAP) 10.9 10.0-20.0 [facility]2015-09-26 08:34:00 Test Item Value Reference Range Interpretation Comments Alk Phos (test code = Alk Phos) 47 39-136 [facility]2015-09-26 08:34:00 Test Item Value Reference Range Interpretation Comments A/G Ratio (test code = A/G Ratio) 1.2 0.7-1.6 [facility]2015-09-26 08:34:00 Test Item Value Reference Range Interpretation Comments Globulin (test code = Globulin) 3.4 2.0-4.0 [facility]2015-09-26 08:34:00 Test Item Value Reference Range Interpretation Comments B/C Ratio (test code = B/C Ratio) 22 6-25 [facility]2015-09-26 08:34:00 Test Item Value Reference Range Interpretation Comments Potassium Lvl (test code = Potassium 3.9 3.5-5.1 Lvl) [facility]2015-09-26 08:34:00 Test Item Value Reference Range Interpretation Comments CO2 (test code = CO2) 28 24-32 [facility]2015-09-26 08:34:00 Test Item Value Reference Range Interpretation Comments Chloride Lvl (test code = Chloride Lvl) 101 95-109 [facility]2015-09-26 08:34:00 Test Item Value Reference Range Interpretation Comments Calcium Lvl (test code = Calcium Lvl) 9.1 8.5-10.5 [facility]2015-09-26 08:34:00 Test Item Value Reference Range Interpretation Comments Total Protein (test code = Total 7.4 6.4-8.4 Protein) [facility]2015-09-26 08:34:00 Test Item Value Reference Range Interpretation Comments Albumin Lvl (test code = Albumin Lvl) 4.0 3.5-5.0 [facility]2015-09-26 08:34:00 Test Item Value Reference Range Interpretation Comments Glucose Lvl (test code = Glucose Lvl) 150 70-99 [facility]2015-09-26 08:34:00 Test Item Value Reference Range Interpretation Comments BUN (test code = BUN) 20 7-22 [facility]2015-09-26 08:34:00 Test Item Value Reference Range Interpretation Comments Creatinine Lvl (test code = Creatinine 0.9 0.5-1.4 Lvl) [facility]2015-09-26 08:34:00 Test Item Value Reference Range Interpretation Comments Sodium Lvl (test code = Sodium Lvl) 136 135-145 [facility]2015-09-26 08:34:00 Test Item Value Reference Range Interpretation Comments Magnesium Lvl (test code = Magnesium 1.8 1.8-2.4 Lvl) [facility]SmtmeibSZZWGCSTEI8828-38-89 08:34:00 Test Item Value Reference Range Interpretation Comments PTT (test code = PTT) 26.7 s 22.9-35.8 [facility] NorthwestSmbpidhOPIXTDHPZZ9127-97-26 08:34:00 Test Item Value Reference Range Interpretation Comments PT (test code = PT) 12.8 s 12.0-14.7 [facility] NorthwestTnztcyaCVYISJSRKU6913-64-88 08:34:00 Test Item Value Reference Range Interpretation Comments INR (test code = INR) 0.93 0.85-1.17 [facility] NorthwestTrfxagwYDQHASSUHX1112-48-74 08:34:00 Test Item Value Reference Range Interpretation Comments Platelet (test code = Platelet) 281 133-450 [facility] NorthwestHnzciroIUZVHBJINX9991-47-29 08:34:00 Test Item Value Reference Range Interpretation Comments MPV (test code = MPV) 9.5 7.4-10.4 [facility] NorthwestPrgflypLKMLOSHWUN8447-83-81 08:34:00 Test Item Value Reference Range Interpretation Comments RDW (test code = RDW) 14.8 11.5-14.5 [facility] NorthwestXaizrzdQBVNVQDCLJ6057-73-49 08:34:00 Test Item Value Reference Range Interpretation Comments MCHC (test code = MCHC) 32.5 32.0-36.0 [facility] NorthwestKwzzpiyKAPQZMBOIT6220-78-35 08:34:00 Test Item Value Reference Range Interpretation Comments RBC (test code = RBC) 5.21 4.20-5.40 [facility] NorthwestAanmektNTXAUAUIZP1746-66-59 08:34:00 Test Item Value Reference Range Interpretation Comments Hgb (test code = Hgb) 13.7 12.0-16.0 [facility] NorthwestJdvgsepSYYFFTGUXM4071-14-35 08:34:00 Test Item Value Reference Range Interpretation Comments WBC (test code = WBC) 10.6 3.7-10.4 [facility] NorthwestVqooiraPEYOSDOTUL0531-20-41 08:34:00 Test Item Value Reference Range Interpretation Comments Hct (test code = Hct) 42.2 36.0-48.0 [facility] NorthwestLqhuwekAPXDJCBIRK8862-98-52 08:34:00 Test Item Value Reference Range Interpretation Comments MCV (test code = MCV) 81.0 80.0-98.0 [place] [address]-09-26 08:34:00 Test Item Value Reference Range Interpretation Comments MCH (test code = MCH) 26.3 pg 27.0-31.0 [facility] NorthwestYfkexqwKVHFOOXHTX0915-60-09 08:34:00 Test Item Value Reference Range Interpretation Comments Basophils # (test code 0.1 See_Comment [Aut omated message] The = Basophils #) system which generated this result tra nsmitted reference range : <=0.2. The reference r eric was not used to int erpret this result as normal/abnormal . [facility] NorthwestOklidsaPAMLNHDLMV7640-56-04 08:34:00 Test Item Value Reference Range Interpretation Comments Segs (test code = Segs) 65.9 45.0-75.0 [facility] NorthwestVwiwmedCFUPFMRMRF9453-07-78 08:34:00 Test Item Value Reference Range Interpretation Comments Lymphocytes (test code = Lymphocytes) 26.0 20.0-40.0 [facility] NorthwestDahghzeFIHOOSCTYE0410-79-81 08:34:00 Test Item Value Reference Range Interpretation Comments Eosinophils (test code = 1.4 See_Comment [A utomated message] The Eosinophils) system which ge nerated this result tra nsmitted reference range : <=4.0. The reference r eric was not used to int erpret this result as normal/abnormal . [facility] NorthwestDdqdbkhYFORRKAVUL5089-41-32 08:34:00 Test Item Value Reference Range Interpretation Comments Monocytes (test code = Monocytes) 6.1 2.0-12.0 [facility] NorthwestSzrtawuDDRSXUMFNS2020-07-31 08:34:00 Test Item Value Reference Range Interpretation Comments Basophils (test code = 0.6 See_Comment [Aut omated message] The Basophils) system which ge nerated this result tra nsmitted reference range : <=1.0. The reference r eric was not used to int erpret this result as normal/abnormal . [facility] NorthwestOtuvfbqNJQZWNBSPZ8697-32-93 08:34:00 Test Item Value Reference Range Interpretation Comments Eosinophils # (test code 0.2 See_Comment [A utomated message] The = Eosinophils #) system whic h generated this result tra nsmitted reference range : <=0.5. The reference r eric was not used to int erpret this result as normal/abnormal . [facility] NorthwestIvyorqgIRDFIDIYRR3679-30-65 08:34:00 Test Item Value Reference Range Interpretation Comments Monocytes # (test code 0.7 See_Comment [Aut omated message] The = Monocytes #) system which generated this result tra nsmitted reference range : <=0.8. The reference r eric was not used to int erpret this result as normal/abnormal . [facility] CenterTrocvwfSASNNRKYGG1912-46-58 08:34:00 Test Item Value Reference Range Interpretation Comments Lymphocytes # (test code = Lymphocytes 2.8 1.0-5.5 #) [facility] CenterAnykfdkITKMLPEAVD1524-77-10 08:34:00 Test Item Value Reference Range Interpretation Comments Segs-Bands # (test code = Segs-Bands #) 7.0 1.5-8.1 [facility] 08:34:00 Test Item Value Reference Range Interpretation Comments Troponin-I (test code no gt See_Comment [Auto mated message] The = Troponin-I) system which g enerated this result transmit thelma reference range : <=0.40. The reference r eric was not used to interpr et this result as zana l/abnormal. [facility] 08:34:00 Test Item Value Reference Range Interpretation Comments CK MB (test code = CK MB) 1.9 0.5-3.6 [facility] 08:34:00 Test Item Value Reference Range Interpretation Comments Total CK (test code = Total CK) 82 12-191 [facility] 08:34:00 Test Item Value Reference Range Interpretation Comments CK MB Index (test 2.3 See_Comment [Automate d message] The code = CK MB Index) system w [facility] generated this result transmit thelma reference range : <=2.5. The reference range was not used to interpr et this result as zana l/abnormal. [facility] GQQBR9032-36-29 08:34:00 Test Item Value Reference Range Interpretation Comments Ammonia (test code = Ammonia) 13.0 [facility] GWFGN8370-00-04 08:34:00 Test Item Value Reference Range Interpretation Comments eGFR (test code = eGFR) 65 [facility] ETUDA6009-32-36 08:34:00 Test Item Value Reference Range Interpretation Comments ALT (test code = ALT) 20 See_Comment [Auto mated message] The system which ge nerated this result transmit thelma reference range : <=65. The reference range was not used to interpr et this result as zana l/abnormal. [facility]2015-09-26 08:34:00 Test Item Value Reference Range Interpretation Comments AST (test code = AST) 13 See_Comment [Auto mated message] The system which ge nerated this result transmit thelma reference range : <=37. The reference range was not used to interpr et this result as zana l/abnormal. [facility]2015-09-26 08:34:00 Test Item Value Reference Range Interpretation Comments Bili Total (test code = Bili Total) 0.6 0.2-1.3 [place] 806245-09-26 08:34:00 Test Item Value Reference Range Interpretation Comments AGAP (test code = AGAP) 10.9 10.0-20.0 [facility]2015-09-26 08:34:00 Test Item Value Reference Range Interpretation Comments Alk Phos (test code = Alk Phos) 47 39-136 [facility]2015-09-26 08:34:00 Test Item Value Reference Range Interpretation Comments A/G Ratio (test code = A/G Ratio) 1.2 0.7-1.6 [facility]2015-09-26 08:34:00 Test Item Value Reference Range Interpretation Comments Globulin (test code = Globulin) 3.4 2.0-4.0 [facility] CenterPiximBETSY JOHNSON REGIONAL HOSPITALLRRSN4855-64-44 08:34:00 Test Item Value Reference Range Interpretation Comments B/C Ratio (test code = B/C Ratio) 22 6-25 [place] 806245-09-26 08:34:00 Test Item Value Reference Range Interpretation Comments Potassium Lvl (test code = Potassium 3.9 3.5-5.1 Lvl) [facility]2015-09-26 08:34:00 Test Item Value Reference Range Interpretation Comments CO2 (test code = CO2) 28 24-32 [facility]2015-09-26 08:34:00 Test Item Value Reference Range Interpretation Comments Chloride Lvl (test code = Chloride Lvl) 101 95-109 [place] 806245-09-26 08:34:00 Test Item Value Reference Range Interpretation Comments Calcium Lvl (test code = Calcium Lvl) 9.1 8.5-10.5 [place] 806245-09-26 08:34:00 Test Item Value Reference Range Interpretation Comments Total Protein (test code = Total 7.4 6.4-8.4 Protein) [place] 806245-09-26 08:34:00 Test Item Value Reference Range Interpretation Comments Albumin Lvl (test code = Albumin Lvl) 4.0 3.5-5.0 [place] 806245-09-26 08:34:00 Test Item Value Reference Range Interpretation Comments Glucose Lvl (test code = Glucose Lvl) 150 70-99 [place] 806245-09-26 08:34:00 Test Item Value Reference Range Interpretation Comments BUN (test code = BUN) 20 7-22 [place] 806245-09-26 08:34:00 Test Item Value Reference Range Interpretation Comments Creatinine Lvl (test code = Creatinine 0.9 0.5-1.4 Lvl) [place] 806245-09-26 08:34:00 Test Item Value Reference Range Interpretation Comments Sodium Lvl (test code = Sodium Lvl) 136 135-145 [place] 806245-09-26 08:34:00 Test Item Value Reference Range Interpretation Comments Magnesium Lvl (test code = Magnesium 1.8 1.8-2.4 Lvl) [facility] NorthwestTbxhhjoLRHLCFNKXB4106-79-35 08:34:00 Test Item Value Reference Range Interpretation Comments PTT (test code = PTT) 26.7 s 22.9-35.8 [facility] NorthwestLqrajmzZODKCNPSMM3857-37-70 08:34:00 Test Item Value Reference Range Interpretation Comments PT (test code = PT) 12.8 s 12.0-14.7 [place] 662435-09-26 08:34:00 Test Item Value Reference Range Interpretation Comments INR (test code = INR) 0.93 0.85-1.17 [place] 662435-09-26 08:34:00 Test Item Value Reference Range Interpretation Comments Platelet (test code = Platelet) 281 133-450 [place] 662435-09-26 08:34:00 Test Item Value Reference Range Interpretation Comments MPV (test code = MPV) 9.5 7.4-10.4 [facility] NorthwestMaertvvCXZFKZHNYV8109-73-34 08:34:00 Test Item Value Reference Range Interpretation Comments RDW (test code = RDW) 14.8 11.5-14.5 [facility] NorthwestJmzpaamXWLFRZGLYR5436-85-54 08:34:00 Test Item Value Reference Range Interpretation Comments MCHC (test code = MCHC) 32.5 32.0-36.0 [facility] NorthwestSergpdtCGUQIHEDFK3184-88-73 08:34:00 Test Item Value Reference Range Interpretation Comments RBC (test code = RBC) 5.21 4.20-5.40 [facility] NorthwestKblkikjZRPWZTUPRT6993-82-14 08:34:00 Test Item Value Reference Range Interpretation Comments Hgb (test code = Hgb) 13.7 12.0-16.0 [facility] NorthwestCpxxuarSIWJTHJLSE3670-40-33 08:34:00 Test Item Value Reference Range Interpretation Comments WBC (test code = WBC) 10.6 3.7-10.4 [facility] NorthwestFptclyuJYNADJYTKA2696-30-25 08:34:00 Test Item Value Reference Range Interpretation Comments Hct (test code = Hct) 42.2 36.0-48.0 [facility] NorthwestEdlcvimEGRGFTOOFX7363-87-10 08:34:00 Test Item Value Reference Range Interpretation Comments MCV (test code = MCV) 81.0 80.0-98.0 [facility] NorthwestPhsmdnnSFAPCBTHGL9666-74-70 08:34:00 Test Item Value Reference Range Interpretation Comments MCH (test code = MCH) 26.3 pg 27.0-31.0 [facility] NorthwestGuktncoAKVMEJUFEV6211-40-39 08:34:00 Test Item Value Reference Range Interpretation Comments Basophils # (test code 0.1 See_Comment [Aut omated message] The = Basophils #) system which generated this result tra nsmitted reference range : <=0.2. The reference r eric was not used to int erpret this result as normal/abnormal . [facility] NorthwestXfyuasdIRWZBCDTLF1842-01-56 08:34:00 Test Item Value Reference Range Interpretation Comments Segs (test code = Segs) 65.9 45.0-75.0 [facility] NorthwestLojhqizFECJWZIFHR4224-38-83 08:34:00 Test Item Value Reference Range Interpretation Comments Lymphocytes (test code = Lymphocytes) 26.0 20.0-40.0 [facility] NorthwestZlmrdtvEWCIFUGDSG5776-80-29 08:34:00 Test Item Value Reference Range Interpretation Comments Eosinophils (test code = 1.4 See_Comment [A utomated message] The Eosinophils) system which ge nerated this result tra nsmitted reference range : <=4.0. The reference r eric was not used to int erpret this result as normal/abnormal . [facility] NorthwestYejdwueYHILATMUZL8062-99-88 08:34:00 Test Item Value Reference Range Interpretation Comments Monocytes (test code = Monocytes) 6.1 2.0-12.0 [facility] NorthwestHnseemtFHEXLCUXHV0370-60-59 08:34:00 Test Item Value Reference Range Interpretation Comments Basophils (test code = 0.6 See_Comment [Aut omated message] The Basophils) system which ge nerated this result tra nsmitted reference range : <=1.0. The reference r eric was not used to int erpret this result as normal/abnormal . [facility] NorthwestPuxifaqBNTAUQCEPY5397-01-12 08:34:00 Test Item Value Reference Range Interpretation Comments Eosinophils # (test code 0.2 See_Comment [A utomated message] The = Eosinophils #) system whic h generated this result tra nsmitted reference range : <=0.5. The reference r eric was not used to int erpret this result as normal/abnormal . [facility] NorthwestYanmtaoQXDNGUSJPA5540-51-69 08:34:00 Test Item Value Reference Range Interpretation Comments Monocytes # (test code 0.7 See_Comment [Aut omated message] The = Monocytes #) system which generated this result tra nsmitted reference range : <=0.8. The reference r eric was not used to int erpret this result as normal/abnormal . [facility] NorthwestSbzzhyoCRIIGULJAC7667-21-12 08:34:00 Test Item Value Reference Range Interpretation Comments Lymphocytes # (test code = Lymphocytes 2.8 1.0-5.5 #) [facility] NorthwestRtvgtzaXOYDAQGFIJ5156-80-00 08:34:00 Test Item Value Reference Range Interpretation Comments Segs-Bands # (test code = Segs-Bands #) 7.0 1.5-8.1 [facility] SAGINAWILQYRXF4054-59-23 08:34:00 Test Item Value Reference Range Interpretation Comments Troponin-I (test code no gt See_Comment [Auto mated message] The = Troponin-I) system which g enerated this result transmit thelma reference range : <=0.40. The reference r eric was not used to interpr et this result as zana l/abnormal. [facility] CenterGeolab-IT TBHIGMK2735-44-70 08:34:00 Test Item Value Reference Range Interpretation Comments CK MB (test code = CK MB) 1.9 0.5-3.6 [facility] CenterPaladion LDWQTZX5440-50-21 08:34:00 Test Item Value Reference Range Interpretation Comments Total CK (test code = Total CK) 82 12-191 [facility] ZHQXWWJ3261-43-28 08:34:00 Test Item Value Reference Range Interpretation Comments CK MB Index (test 2.3 See_Comment [Automate d message] The code = CK MB Index) system w [facility] generated this result transmit thelma reference range : <=2.5. The reference range was not used to interpr et this result as zana l/abnormal. [facility] [employer]2015-09-26 08:34:00 Test Item Value Reference Range Interpretation Comments Ammonia (test code = Ammonia) 13.0 [facility] [employer]2015-09-26 08:34:00 Test Item Value Reference Range Interpretation Comments eGFR (test code = eGFR) 65 [facility] [employer]2015-09-26 08:34:00 Test Item Value Reference Range Interpretation Comments ALT (test code = ALT) 20 See_Comment [Auto mated message] The system which ge nerated this result transmit thelma reference range : <=65. The reference range was not used to interpr et this result as zana l/abnormal. [facility] [employer]2015-09-26 08:34:00 Test Item Value Reference Range Interpretation Comments AST (test code = AST) 13 See_Comment [Auto mated message] The system which ge nerated this result transmit thelma reference range : <=37. The reference range was not used to interpr et this result as zana l/abnormal. [facility] [employer]2015-09-26 08:34:00 Test Item Value Reference Range Interpretation Comments Bili Total (test code = Bili Total) 0.6 0.2-1.3 [facility] [id number] 08:34:00 Test Item Value Reference Range Interpretation Comments AGAP (test code = AGAP) 10.9 10.0-20.0 [facility]2015-09-26 08:34:00 Test Item Value Reference Range Interpretation Comments Alk Phos (test code = Alk Phos) 47 39-136 [facility]2015-09-26 08:34:00 Test Item Value Reference Range Interpretation Comments A/G Ratio (test code = A/G Ratio) 1.2 0.7-1.6 [facility]2015-09-26 08:34:00 Test Item Value Reference Range Interpretation Comments Globulin (test code = Globulin) 3.4 2.0-4.0 [facility]2015-09-26 08:34:00 Test Item Value Reference Range Interpretation Comments B/C Ratio (test code = B/C Ratio) 22 6-25 [place] 806245-09-26 08:34:00 Test Item Value Reference Range Interpretation Comments Potassium Lvl (test code = Potassium 3.9 3.5-5.1 Lvl) [facility]2015-09-26 08:34:00 Test Item Value Reference Range Interpretation Comments CO2 (test code = CO2) 28 24-32 [facility]2015-09-26 08:34:00 Test Item Value Reference Range Interpretation Comments Chloride Lvl (test code = Chloride Lvl) 101 95-109 [facility]2015-09-26 08:34:00 Test Item Value Reference Range Interpretation Comments Calcium Lvl (test code = Calcium Lvl) 9.1 8.5-10.5 [facility]2015-09-26 08:34:00 Test Item Value Reference Range Interpretation Comments Total Protein (test code = Total 7.4 6.4-8.4 Protein) [facility]2015-09-26 08:34:00 Test Item Value Reference Range Interpretation Comments Albumin Lvl (test code = Albumin Lvl) 4.0 3.5-5.0 [facility]2015-09-26 08:34:00 Test Item Value Reference Range Interpretation Comments Glucose Lvl (test code = Glucose Lvl) 150 70-99 [facility]2015-09-26 08:34:00 Test Item Value Reference Range Interpretation Comments BUN (test code = BUN) 20 7-22 [facility]2015-09-26 08:34:00 Test Item Value Reference Range Interpretation Comments Creatinine Lvl (test code = Creatinine 0.9 0.5-1.4 Lvl) [facility]2015-09-26 08:34:00 Test Item Value Reference Range Interpretation Comments Sodium Lvl (test code = Sodium Lvl) 136 135-145 [facility]2015-09-26 08:34:00 Test Item Value Reference Range Interpretation Comments Magnesium Lvl (test code = Magnesium 1.8 1.8-2.4 Lvl) [facility] NorthwestUcbvyhnWJIKIVWBAE2700-86-51 08:34:00 Test Item Value Reference Range Interpretation Comments PTT (test code = PTT) 26.7 s 22.9-35.8 [facility] NorthwestEbegwsfDTNQXEJTBL9898-20-01 08:34:00 Test Item Value Reference Range Interpretation Comments PT (test code = PT) 12.8 s 12.0-14.7 [facility] NorthwestHocyhurZZUOJEANJQ8690-25-92 08:34:00 Test Item Value Reference Range Interpretation Comments INR (test code = INR) 0.93 0.85-1.17 [facility] NorthwestCrkqjghFIHNKLOOAZ1768-48-94 08:34:00 Test Item Value Reference Range Interpretation Comments Platelet (test code = Platelet) 281 133-450 [facility] NorthwestImlbbpwPCNVIXLMEO6624-05-44 08:34:00 Test Item Value Reference Range Interpretation Comments MPV (test code = MPV) 9.5 7.4-10.4 [facility] NorthwestQwvzrwjWTXWQBEEVS8499-06-13 08:34:00 Test Item Value Reference Range Interpretation Comments RDW (test code = RDW) 14.8 11.5-14.5 [facility] NorthwestIjrbbahXIWRKQRFMT5523-44-98 08:34:00 Test Item Value Reference Range Interpretation Comments MCHC (test code = MCHC) 32.5 32.0-36.0 [facility] NorthwestFdkkzjcKMVGFPLELT7443-31-64 08:34:00 Test Item Value Reference Range Interpretation Comments RBC (test code = RBC) 5.21 4.20-5.40 [facility] NorthwestDheqkrgZIGMILMJZJ9678-52-06 08:34:00 Test Item Value Reference Range Interpretation Comments Hgb (test code = Hgb) 13.7 12.0-16.0 [facility] NorthwestIplgrycHSWEYOWCYG2360-71-32 08:34:00 Test Item Value Reference Range Interpretation Comments WBC (test code = WBC) 10.6 3.7-10.4 [facility] NorthwestLahagzmSWXCJDOCSO0060-73-01 08:34:00 Test Item Value Reference Range Interpretation Comments Hct (test code = Hct) 42.2 36.0-48.0 [facility] NorthwestPcztdteTRPWPLTQRD3735-17-24 08:34:00 Test Item Value Reference Range Interpretation Comments MCV (test code = MCV) 81.0 80.0-98.0 [facility] NorthwestPyzsovoAYHKTIQJPM7919-28-35 08:34:00 Test Item Value Reference Range Interpretation Comments MCH (test code = MCH) 26.3 pg 27.0-31.0 [facility] NorthwestBdvxlpyPSCMOMZARR8470-97-47 08:34:00 Test Item Value Reference Range Interpretation Comments Basophils # (test code 0.1 See_Comment [Aut omated message] The = Basophils #) system which generated this result tra nsmitted reference range : <=0.2. The reference r eric was not used to int erpret this result as normal/abnormal . [facility] NorthwestHhtnjbpLIKVXWIICV5484-36-32 08:34:00 Test Item Value Reference Range Interpretation Comments Segs (test code = Segs) 65.9 45.0-75.0 [facility] NorthwestAhrynwoEJJXXUAFOS9446-51-95 08:34:00 Test Item Value Reference Range Interpretation Comments Lymphocytes (test code = Lymphocytes) 26.0 20.0-40.0 [facility] NorthwestNmfehiqUFLNXXHWKQ7178-76-51 08:34:00 Test Item Value Reference Range Interpretation Comments Eosinophils (test code = 1.4 See_Comment [A utomated message] The Eosinophils) system which ge nerated this result tra nsmitted reference range : <=4.0. The reference r eric was not used to int erpret this result as normal/abnormal . [facility] NorthwestCgivqwpENNWHZHQHS6429-57-61 08:34:00 Test Item Value Reference Range Interpretation Comments Monocytes (test code = Monocytes) 6.1 2.0-12.0 [facility] NorthwestLxlklrzMWGKXRGNDE6474-40-29 08:34:00 Test Item Value Reference Range Interpretation Comments Basophils (test code = 0.6 See_Comment [Aut omated message] The Basophils) system which ge nerated this result tra nsmitted reference range : <=1.0. The reference r eric was not used to int erpret this result as normal/abnormal . [facility] NorthwestXyhmefsAWBTLEDYZW5175-72-35 08:34:00 Test Item Value Reference Range Interpretation Comments Eosinophils # (test code 0.2 See_Comment [A utomated message] The = Eosinophils #) system whic h generated this result tra nsmitted reference range : <=0.5. The reference r eric was not used to int erpret this result as normal/abnormal . [facility] NorthwestMmbdpkdLDDJWLGMAP2200-70-42 08:34:00 Test Item Value Reference Range Interpretation Comments Monocytes # (test code 0.7 See_Comment [Aut omated message] The = Monocytes #) system which generated this result tra nsmitted reference range : <=0.8. The reference r eric was not used to int erpret this result as normal/abnormal . [facility] NorthwestZgmfkxzKWEASCYFQI7970-77-42 08:34:00 Test Item Value Reference Range Interpretation Comments Lymphocytes # (test code = Lymphocytes 2.8 1.0-5.5 #) [facility] NorthwestKhxqeolXDIBAYFHGM5390-33-84 08:34:00 Test Item Value Reference Range Interpretation Comments Segs-Bands # (test code = Segs-Bands #) 7.0 1.5-8.1 [facility] AND LXVTH1942-12-18 04:51:00 Test Item Value Reference Range Interpretation Comments UA Hyal Cast (test 1 See_Comment [Automat ed message] The code = UA Hyal Cast) system which generated this result transmit thelma reference range : <=2. The reference range was not used to interpr et this result as zana l/abnormal. [facility] AND [id number] 04:51:00 Test Item Value Reference Range Interpretation Comments UA RBC (test code = 1 See_Comment [Automa thelma message] The UA RBC) system which ge nerated this result transmit thelma reference range : <=2. The reference range was not used to interpr et this result as zana l/abnormal. [facility] AND [id number] 04:51:00 Test Item Value Reference Range Interpretation Comments UA Leuk Est (test Negative (04/05/15 11:51 code = UA Leuk Est) PM) [facility] AND [id number] 04:51:00 Test Item Value Reference Range Interpretation Comments UA Sq Epi (test code = UA Sq Occasional /LPF Epi) [facility] AND [id number] 04:51:00 Test Item Value Reference Range Interpretation Comments UA WBC (test code = 2 See_Comment [Automa thelma message] The UA WBC) system which ge nerated this result transmit thelma reference range : <=5. The reference range was not used to interpr et this result as zana l/abnormal. [facility] AND [id number] 04:51:00 Test Item Value Reference Range Interpretation Comments UA Urobilinogen (test code = UA <=1.0 mg/dL 0.1-1.0 Urobilinogen) [facility] AND [id number] 04:51:00 Test Item Value Reference Range Interpretation Comments UA Protein (test code = UA Negative mg/dL Protein) [facility] AND [id number] 04:51:00 Test Item Value Reference Range Interpretation Comments UA Glucose (test code = UA Negative mg/dL Glucose) [facility] AND [id number] 04:51:00 Test Item Value Reference Range Interpretation Comments UA Ketones (test code = UA Negative mg/dL Ketones) [facility] AND [id number] 04:51:00 Test Item Value Reference Range Interpretation Comments UA Bili (test code = Negative *NA*(04/05/15 UA Bili) 11:51 PM) [facility] AND [id number] 04:51:00 Test Item Value Reference Range Interpretation Comments UA pH (test code = UA pH) 6.0 5.0-8.0 [facility] AND [id number] 04:51:00 Test Item Value Reference Range Interpretation Comments UA Turbidity (test code = Clear (04/05/15 11:51 UA Turbidity) PM) [facility] AND [id number] 04:51:00 Test Item Value Reference Range Interpretation Comments UA Spec Grav (test code = UA Spec Grav) 1.006 [facility] AND [id number] 04:51:00 Test Item Value Reference Range Interpretation Comments UA Color (test code = Light Yellow UA Color) *NA*(04/05/15 11:51 PM) [facility] AND [id number] 04:51:00 Test Item Value Reference Range Interpretation Comments UA Blood (test code = Negative (04/05/15 11:51 UA Blood) PM) [facility] AND [id number] 04:51:00 Test Item Value Reference Range Interpretation Comments UA Nitrite (test code Negative (04/05/15 11:51 = UA Nitrite) PM) [facility] AND [id number] 04:51:00 Test Item Value Reference Range Interpretation Comments UA Hyal Cast (test 1 See_Comment [Automat ed message] The code = UA Hyal Cast) system which generated this result transmit thelma reference range : <=2. The reference range was not used to interpr et this result as zana l/abnormal. [facility] AND [id number] 04:51:00 Test Item Value Reference Range Interpretation Comments UA RBC (test code = 1 See_Comment [Automa thelma message] The UA RBC) system which ge nerated this result transmit thelma reference range : <=2. The reference range was not used to interpr et this result as zana l/abnormal. [facility] AND [id number] 04:51:00 Test Item Value Reference Range Interpretation Comments UA Leuk Est (test Negative (04/05/15 11:51 code = UA Leuk Est) PM) [facility] AND [id number] 04:51:00 Test Item Value Reference Range Interpretation Comments UA Sq Epi (test code = UA Sq Occasional /LPF Epi) [facility] AND [id number] 04:51:00 Test Item Value Reference Range Interpretation Comments UA WBC (test code = 2 See_Comment [Automa thelma message] The UA WBC) system which ge nerated this result transmit thelma reference range : <=5. The reference range was not used to interpr et this result as zana l/abnormal. [facility] AND [id number] 04:51:00 Test Item Value Reference Range Interpretation Comments UA Urobilinogen (test code = UA <=1.0 mg/dL 0.1-1.0 Urobilinogen) [facility] AND [id number] 04:51:00 Test Item Value Reference Range Interpretation Comments UA Protein (test code = UA Negative mg/dL Protein) [facility] AND [id number] 04:51:00 Test Item Value Reference Range Interpretation Comments UA Glucose (test code = UA Negative mg/dL Glucose) [facility] AND [id number] 04:51:00 Test Item Value Reference Range Interpretation Comments UA Ketones (test code = UA Negative mg/dL Ketones) [facility] AND [id number] 04:51:00 Test Item Value Reference Range Interpretation Comments UA Bili (test code = Negative *NA*(04/05/15 UA Bili) 11:51 PM) [facility] AND [id number] 04:51:00 Test Item Value Reference Range Interpretation Comments UA pH (test code = UA pH) 6.0 5.0-8.0 [facility] AND [id number] 04:51:00 Test Item Value Reference Range Interpretation Comments UA Turbidity (test code = Clear (04/05/15 11:51 UA Turbidity) PM) [facility] AND [id number] 04:51:00 Test Item Value Reference Range Interpretation Comments UA Spec Grav (test code = UA Spec Grav) 1.006 [facility] AND [id number] 04:51:00 Test Item Value Reference Range Interpretation Comments UA Color (test code = Light Yellow UA Color) *NA*(04/05/15 11:51 PM) [facility] AND [id number] 04:51:00 Test Item Value Reference Range Interpretation Comments UA Blood (test code = Negative (04/05/15 11:51 UA Blood) PM) [facility] AND [id number] 04:51:00 Test Item Value Reference Range Interpretation Comments UA Nitrite (test code Negative (04/05/15 11:51 = UA Nitrite) PM) [facility] AND [id number] 04:51:00 Test Item Value Reference Range Interpretation Comments UA Hyal Cast (test 1 See_Comment [Automat ed message] The code = UA Hyal Cast) system which generated this result transmit thelma reference range : <=2. The reference range was not used to interpr et this result as zana l/abnormal. [facility] AND [id number] 04:51:00 Test Item Value Reference Range Interpretation Comments UA RBC (test code = 1 See_Comment [Automa thelma message] The UA RBC) system which ge nerated this result transmit thelma reference range : <=2. The reference range was not used to interpr et this result as zana l/abnormal. [facility] AND [id number] 04:51:00 Test Item Value Reference Range Interpretation Comments UA Leuk Est (test Negative (04/05/15 11:51 code = UA Leuk Est) PM) [facility] AND [id number] 04:51:00 Test Item Value Reference Range Interpretation Comments UA Sq Epi (test code = UA Sq Occasional /LPF Epi) [facility] AND [id number] 04:51:00 Test Item Value Reference Range Interpretation Comments UA WBC (test code = 2 See_Comment [Automa thelma message] The UA WBC) system which ge nerated this result transmit thelma reference range : <=5. The reference range was not used to interpr et this result as zana l/abnormal. [facility] AND [id number] 04:51:00 Test Item Value Reference Range Interpretation Comments UA Urobilinogen (test code = UA <=1.0 mg/dL 0.1-1.0 Urobilinogen) [facility] AND [id number] 04:51:00 Test Item Value Reference Range Interpretation Comments UA Protein (test code = UA Negative mg/dL Protein) [facility] AND [id number] 04:51:00 Test Item Value Reference Range Interpretation Comments UA Glucose (test code = UA Negative mg/dL Glucose) [facility] AND [id number] 04:51:00 Test Item Value Reference Range Interpretation Comments UA Ketones (test code = UA Negative mg/dL Ketones) [facility] AND [id number] 04:51:00 Test Item Value Reference Range Interpretation Comments UA Bili (test code = Negative *NA*(04/05/15 UA Bili) 11:51 PM) [facility] AND [id number] 04:51:00 Test Item Value Reference Range Interpretation Comments UA pH (test code = UA pH) 6.0 5.0-8.0 [facility] AND [id number] 04:51:00 Test Item Value Reference Range Interpretation Comments UA Turbidity (test code = Clear (04/05/15 11:51 [facility] Turbidity) PM) [facility] [id number] 04:51:00 Test Item Value Reference Range Interpretation Comments UA Spec Grav (test code = UA Spec Grav) 1.006 [facility] [id number] 04:51:00 Test Item Value Reference Range Interpretation Comments UA Color (test code = Light Yellow UA Color) *NA*(04/05/15 11:51 PM) [facility] [id number] 04:51:00 Test Item Value Reference Range Interpretation Comments UA Blood (test code = Negative (04/05/15 11:51 UA Blood) PM) [facility] [id number] 04:51:00 Test Item Value Reference Range Interpretation Comments UA Nitrite (test code Negative (04/05/15 11:51 = UA Nitrite) PM) [facility] [id number] 02:44:00 Test Item Value Reference Range Interpretation Comments CK MB (test code = CK MB) 1.8 0.5-3.6 [facility] [id number] 02:44:00 Test Item Value Reference Range Interpretation Comments Total CK (test code = Total CK) 109 12-191 [facility] [id number] 02:44:00 Test Item Value Reference Range Interpretation Comments Troponin-I (test code 0.02 See_Comment [Auto mated message] The = Troponin-I) system which g enerated this result transmit thelma reference range : <=0.40. The reference r eric was not used to interpr et this result as zana l/abnormal. [facility] [id number] 02:44:00 Test Item Value Reference Range Interpretation Comments CK MB Index (test 1.7 See_Comment [Automate d message] The code = CK MB Index) system w [facility] generated this result transmit thelma reference range : <=2.5. The reference range was not used to interpr et this result as zana l/abnormal. [facility] [id number] 02:44:00 Test Item Value Reference Range Interpretation Comments eGFR (test code = eGFR) 58 [facility] [id number] 02:44:00 Test Item Value Reference Range Interpretation Comments Bili Total (test code = Bili Total) 0.3 0.2-1.3 [facility]2015-07-24 02:44:00 Test Item Value Reference Range Interpretation Comments Alk Phos (test code = Alk Phos) 58 39-136 [facility]2015-07-24 02:44:00 Test Item Value Reference Range Interpretation Comments Albumin Lvl (test code = Albumin Lvl) 3.8 3.5-5.0 [facility]2015-07-24 02:44:00 Test Item Value Reference Range Interpretation Comments AST (test code = AST) 19 See_Comment [Auto mated message] The system which ge nerated this result transmit thelma reference range : <=37. The reference range was not used to interpr et this result as zana l/abnormal. [facility]2015-07-24 02:44:00 Test Item Value Reference Range Interpretation Comments Chloride Lvl (test code = Chloride Lvl) 106 95-109 [facility]2015-07-24 02:44:00 Test Item Value Reference Range Interpretation Comments Total Protein (test code = Total 7.8 6.4-8.4 Protein) [facility]2015-07-24 02:44:00 Test Item Value Reference Range Interpretation Comments CO2 (test code = CO2) 29 24-32 [facility]2015-07-24 02:44:00 Test Item Value Reference Range Interpretation Comments Calcium Lvl (test code = Calcium Lvl) 9.8 8.5-10.5 [facility]2015-07-24 02:44:00 Test Item Value Reference Range Interpretation Comments Potassium Lvl (test code = Potassium 4.7 3.5-5.1 Lvl) [facility]2015-07-24 02:44:00 Test Item Value Reference Range Interpretation Comments Glucose Lvl (test code = Glucose Lvl) 179 70-99 [facility]2015-07-24 02:44:00 Test Item Value Reference Range Interpretation Comments Sodium Lvl (test code = Sodium Lvl) 142 135-145 [facility]2015-07-24 02:44:00 Test Item Value Reference Range Interpretation Comments ALT (test code = ALT) 21 See_Comment [Auto mated message] The system which ge nerated this result transmit thelma reference range : <=65. The reference range was not used to interpr et this result as zana l/abnormal. [facility]2015-07-24 02:44:00 Test Item Value Reference Range Interpretation Comments BUN (test code = BUN) 16 - [facility]2015-07-24 02:44:00 Test Item Value Reference Range Interpretation Comments Creatinine Lvl (test code = Creatinine 1.0 0.5-1.4 Lvl) [facility]2015-07-24 02:44:00 Test Item Value Reference Range Interpretation Comments A/G Ratio (test code = A/G Ratio) 1.0 0.7-1.6 [facility]2015-07-24 02:44:00 Test Item Value Reference Range Interpretation Comments B/C Ratio (test code = B/C Ratio) 16 - [facility]2015-07-24 02:44:00 Test Item Value Reference Range Interpretation Comments Globulin (test code = Globulin) 4.0 2.0-4.0 [facility]2015-07-24 02:44:00 Test Item Value Reference Range Interpretation Comments AGAP (test code = AGAP) 11.7 10.0-20.0 [id number] 02:44:00 Test Item Value Reference Range Interpretation Comments Basophils # (test code 0.0 See_Comment [Aut omated message] The = Basophils #) system which generated this result tra nsmitted reference range : <=0.2. The reference r eric was not used to int erpret this result as normal/abnormal . [id number] 02:44:00 Test Item Value Reference Range Interpretation Comments Eosinophils # (test code 0.4 See_Comment [A utomated message] The = Eosinophils #) system whic h generated this result tra nsmitted reference range : <=0.5. The reference r eric was not used to int erpret this result as normal/abnormal . [facility] N[id number] 02:44:00 Test Item Value Reference Range Interpretation Comments Segs-Bands # (test code = Segs-Bands #) 8.1 1.5-8.1 [facility] No[id number] 02:44:00 Test Item Value Reference Range Interpretation Comments Lymphocytes # (test code = Lymphocytes 1.6 1.0-5.5 #) [facility] No[id number] 02:44:00 Test Item Value Reference Range Interpretation Comments Eosinophils (test code = 3.6 See_Comment [A utomated message] The Eosinophils) system which ge nerated this result tra nsmitted reference range : <=4.0. The reference r eric was not used to int erpret this result as normal/abnormal . [facility] NorthwestCurnqpjOIZGHQRHEV7809-53-04 02:44:00 Test Item Value Reference Range Interpretation Comments Basophils (test code = 0.4 See_Comment [Aut omated message] The Basophils) system which ge nerated this result tra nsmitted reference range : <=1.0. The reference r eric was not used to int erpret this result as normal/abnormal . [facility] Nort[id number] 02:44:00 Test Item Value Reference Range Interpretation Comments Monocytes # (test code 0.5 See_Comment [Aut omated message] The = Monocytes #) system which generated this result tra nsmitted reference range : <=0.8. The reference r eric was not used to int erpret this result as normal/abnormal . [facility] NorthwestVtrphiuLBRPBRQNWM9205-62-54 02:44:00 Test Item Value Reference Range Interpretation Comments Lymphocytes (test code = Lymphocytes) 15.3 20.0-40.0 [facility] No[id number] 02:44:00 Test Item Value Reference Range Interpretation Comments Segs (test code = Segs) 76.4 45.0-75.0 [facility] NorthwestCqnnndgOOLQBWQSRM8853-55-59 02:44:00 Test Item Value Reference Range Interpretation Comments Monocytes (test code = Monocytes) 4.3 2.0-12.0 [facility] NorthwestHjezpzmXNMUYNSCUA5861-39-51 02:44:00 Test Item Value Reference Range Interpretation Comments Hgb (test code = Hgb) 14.5 12.0-16.0 [facility] No[id number] 02:44:00 Test Item Value Reference Range Interpretation Comments MCH (test code = MCH) 26.4 pg 27.0-31.0 [facility] NorthwestUwfpwqwKSOXEDROVI1733-84-05 02:44:00 Test Item Value Reference Range Interpretation Comments MCHC (test code = MCHC) 31.7 32.0-36.0 [facility] NorthwestPxdoojfSDDIIWIRSS6436-23-04 02:44:00 Test Item Value Reference Range Interpretation Comments MCV (test code = MCV) 83.4 80.0-98.0 [facility] NorthwestTkmlxzpLFXYGIHWSN9288-76-74 02:44:00 Test Item Value Reference Range Interpretation Comments Hct (test code = Hct) 45.6 36.0-48.0 [facility] NorthwestTepihymLUEOTBNKDM6787-88-96 02:44:00 Test Item Value Reference Range Interpretation Comments RBC (test code = RBC) 5.47 4.20-5.40 [facility] NorthwestDksrsnpRGDBLUIWUL6652-79-07 02:44:00 Test Item Value Reference Range Interpretation Comments WBC (test code = WBC) 10.6 3.7-10.4 [facility] NorthwestXbcxchyITMHKDRSWV2815-57-62 02:44:00 Test Item Value Reference Range Interpretation Comments RDW (test code = RDW) 13.9 11.5-14.5 [facility] NorthwestXmomnvbJMNDMVUINH0936-74-87 02:44:00 Test Item Value Reference Range Interpretation Comments MPV (test code = MPV) 9.3 7.4-10.4 [facility] NorthwestDzskjwcOYBATWTDRJ4629-40-18 02:44:00 Test Item Value Reference Range Interpretation Comments Platelet (test code = Platelet) 267 133-450 [place] [id number] 02:44:00 Test Item Value Reference Range Interpretation Comments Acetaminoph Lvl (test code = no gt 10-20 Acetaminoph Lvl) [place] [id number] 02:44:00 Test Item Value Reference Range Interpretation Comments Salicylate Lvl (test 2.1 See_Comment [Autom ated message] The code = Salicylate Lvl) syste m which generated this result tra nsmitted reference range : <=30.0. The reference r eric was not used to int erpret this result as normal/abnormal . [place] [id number] 02:44:00 Test Item Value Reference Range Interpretation Comments Etoh (%) (test code = Etoh (%)) no gt [place] [id number] 02:44:00 Test Item Value Reference Range Interpretation Comments Ethanol Lvl (test code = Ethanol Lvl) no gt [facility] ilabAC [id number] 02:44:00 Test Item Value Reference Range Interpretation Comments CK MB (test code = CK MB) 1.8 0.5-3.6 [facility] [employer]CAR[employer]AC [id number] 02:44:00 Test Item Value Reference Range Interpretation Comments Total CK (test code = Total CK) 109 12-191 [facility] ilabAC [id number] 02:44:00 Test Item Value Reference Range Interpretation Comments Troponin-I (test code 0.02 See_Comment [Auto mated message] The = Troponin-I) system which g enerated this result transmit thelma reference range : <=0.40. The reference r eric was not used to interpr et this result as zana l/abnormal. [facility] [employer]2015-07-24 02:44:00 Test Item Value Reference Range Interpretation Comments CK MB Index (test 1.7 See_Comment [Automate d message] The code = CK MB Index) system w [facility] generated this result transmit thelma reference range : <=2.5. The reference range was not used to interpr et this result as zana l/abnormal. [employer] [id number] 02:44:00 Test Item Value Reference Range Interpretation Comments eGFR (test code = eGFR) 58 [facility] [employer] [id number] 02:44:00 Test Item Value Reference Range Interpretation Comments Bili Total (test code = Bili Total) 0.3 0.2-1.3 [facility] [employer] [id number] 02:44:00 Test Item Value Reference Range Interpretation Comments Alk Phos (test code = Alk Phos) 58 39-136 [facility] [employer] [id number] 02:44:00 Test Item Value Reference Range Interpretation Comments Albumin Lvl (test code = Albumin Lvl) 3.8 3.5-5.0 [facility] [employer] [id number] 02:44:00 Test Item Value Reference Range Interpretation Comments AST (test code = AST) 19 See_Comment [Auto mated message] The system which ge nerated this result transmit thelma reference range : <=37. The reference range was not used to interpr et this result as zana l/abnormal. [facility]2015-07-24 02:44:00 Test Item Value Reference Range Interpretation Comments Chloride Lvl (test code = Chloride Lvl) 106 95-109 [facility]2015-07-24 02:44:00 Test Item Value Reference Range Interpretation Comments Total Protein (test code = Total 7.8 6.4-8.4 Protein) [facility]2015-07-24 02:44:00 Test Item Value Reference Range Interpretation Comments CO2 (test code = CO2) 29 24-32 [facility]2015-07-24 02:44:00 Test Item Value Reference Range Interpretation Comments Calcium Lvl (test code = Calcium Lvl) 9.8 8.5-10.5 [facility]2015-07-24 02:44:00 Test Item Value Reference Range Interpretation Comments Potassium Lvl (test code = Potassium 4.7 3.5-5.1 Lvl) [facility]2015-07-24 02:44:00 Test Item Value Reference Range Interpretation Comments Glucose Lvl (test code = Glucose Lvl) 179 70-99 [facility]2015-07-24 02:44:00 Test Item Value Reference Range Interpretation Comments Sodium Lvl (test code = Sodium Lvl) 142 135-145 [facility]2015-07-24 02:44:00 Test Item Value Reference Range Interpretation Comments ALT (test code = ALT) 21 See_Comment [Auto mated message] The system which ge nerated this result transmit thelma reference range : <=65. The reference range was not used to interpr et this result as zana l/abnormal. [facility]2015-07-24 02:44:00 Test Item Value Reference Range Interpretation Comments BUN (test code = BUN) 16 7-22 [facility]2015-07-24 02:44:00 Test Item Value Reference Range Interpretation Comments Creatinine Lvl (test code = Creatinine 1.0 0.5-1.4 Lvl) [facility]2015-07-24 02:44:00 Test Item Value Reference Range Interpretation Comments A/G Ratio (test code = A/G Ratio) 1.0 0.7-1.6 [facility]2015-07-24 02:44:00 Test Item Value Reference Range Interpretation Comments B/C Ratio (test code = B/C Ratio) 16 6-25 [facility]2015-07-24 02:44:00 Test Item Value Reference Range Interpretation Comments Globulin (test code = Globulin) 4.0 2.0-4.0 [facility]2015-07-24 02:44:00 Test Item Value Reference Range Interpretation Comments AGAP (test code = AGAP) 11.7 10.0-20.0 [facility] Nor[id number] 02:44:00 Test Item Value Reference Range Interpretation Comments Basophils # (test code 0.0 See_Comment [Aut omated message] The = Basophils #) system which generated this result tra nsmitted reference range : <=0.2. The reference r eric was not used to int erpret this result as normal/abnormal . [facility] NorthwestRfyclapTJNWXFIULE7303-17-88 02:44:00 Test Item Value Reference Range Interpretation Comments Eosinophils # (test code 0.4 See_Comment [A utomated message] The = Eosinophils #) system whic h generated this result tra nsmitted reference range : <=0.5. The reference r eric was not used to int erpret this result as normal/abnormal . [facility] NorthwestNisblubGUUSKJVVQP9566-16-58 02:44:00 Test Item Value Reference Range Interpretation Comments Segs-Bands # (test code = Segs-Bands #) 8.1 1.5-8.1 [facility] NorthwestKpzfbltADZHKVDVCS9939-87-86 02:44:00 Test Item Value Reference Range Interpretation Comments Lymphocytes # (test code = Lymphocytes 1.6 1.0-5.5 #) [facility] NorthwestVdeteftMQYTIVBFDU3331-28-69 02:44:00 Test Item Value Reference Range Interpretation Comments Eosinophils (test code = 3.6 See_Comment [A utomated message] The Eosinophils) system which ge nerated this result tra nsmitted reference range : <=4.0. The reference r eric was not used to int erpret this result as normal/abnormal . [facility] NorthwestBwdnacqKOJBHIAGLM6435-99-76 02:44:00 Test Item Value Reference Range Interpretation Comments Basophils (test code = 0.4 See_Comment [Aut omated message] The Basophils) system which ge nerated this result tra nsmitted reference range : <=1.0. The reference r eric was not used to int erpret this result as normal/abnormal . [facility] NorthwestTvlrzybJNWSGETMJG2426-05-67 02:44:00 Test Item Value Reference Range Interpretation Comments Monocytes # (test code 0.5 See_Comment [Aut omated message] The = Monocytes #) system which generated this result tra nsmitted reference range : <=0.8. The reference r eric was not used to int erpret this result as normal/abnormal . [facility] NorthwestRvwopgnWHYJCMOVKY1168-39-52 02:44:00 Test Item Value Reference Range Interpretation Comments Lymphocytes (test code = Lymphocytes) 15.3 20.0-40.0 [facility] NorthwestBlppmmnWZSKZJVNFC9618-64-44 02:44:00 Test Item Value Reference Range Interpretation Comments Segs (test code = Segs) 76.4 45.0-75.0 [facility] NorthwestDffmqpfHVDOIUUDSC8031-76-20 02:44:00 Test Item Value Reference Range Interpretation Comments Monocytes (test code = Monocytes) 4.3 2.0-12.0 [facility] NorthwestBkyfjfxXXBWQFVAUW1496-61-03 02:44:00 Test Item Value Reference Range Interpretation Comments Hgb (test code = Hgb) 14.5 12.0-16.0 [facility] NorthwestUcewdhjTPTSKSRNJJ6251-16-80 02:44:00 Test Item Value Reference Range Interpretation Comments MCH (test code = MCH) 26.4 pg 27.0-31.0 [facility] NorthwestUwpddunUKACFMPNBN0451-17-44 02:44:00 Test Item Value Reference Range Interpretation Comments MCHC (test code = MCHC) 31.7 32.0-36.0 [facility] NorthwestQrkjusfSRALPKKXNR8894-73-11 02:44:00 Test Item Value Reference Range Interpretation Comments MCV (test code = MCV) 83.4 80.0-98.0 [facility] NorthwestEpruxtlRXQMMELWEN0539-88-14 02:44:00 Test Item Value Reference Range Interpretation Comments Hct (test code = Hct) 45.6 36.0-48.0 [facility] NorthwestPtekggqAAMIFFKLOV9301-16-18 02:44:00 Test Item Value Reference Range Interpretation Comments RBC (test code = RBC) 5.47 4.20-5.40 [facility] NorthwestVyqjznbYZZTDPJRMG5839-57-28 02:44:00 Test Item Value Reference Range Interpretation Comments WBC (test code = WBC) 10.6 3.7-10.4 [facility]OsyhsfkOOIBJNXEDE7545-16-60 02:44:00 Test Item Value Reference Range Interpretation Comments RDW (test code = RDW) 13.9 11.5-14.5 [facility] HospitalSryntybRBQHSSMPSK1095-79-61 02:44:00 Test Item Value Reference Range Interpretation Comments MPV (test code = MPV) 9.3 7.4-10.4 [facility] HospitalSahilzwIQXUKPTHWL5543-80-46 02:44:00 Test Item Value Reference Range Interpretation Comments Platelet (test code = Platelet) 267 133-450 [facility]AcztnktVQVSGMYCQP2405-34-38 02:44:00 Test Item Value Reference Range Interpretation Comments Acetaminoph Lvl (test code = no gt 10-20 Acetaminoph Lvl) [place] [id number] 02:44:00 Test Item Value Reference Range Interpretation Comments Salicylate Lvl (test 2.1 See_Comment [Autom ated message] The code = Salicylate Lvl) syste m which generated this result tra nsmitted reference range : <=30.0. The reference r eric was not used to int erpret this result as normal/abnormal . [facility] HospitalTztchhxDAQUDWOAST6313-46-15 02:44:00 Test Item Value Reference Range Interpretation Comments Etoh (%) (test code = Etoh (%)) no gt [facility] HospitalVrmwnngWEYMQNMDQR1016-79-66 02:44:00 Test Item Value Reference Range Interpretation Comments Ethanol Lvl (test code = Ethanol Lvl) no gt [facility] [id number] 02:44:00 Test Item Value Reference Range Interpretation Comments CK MB (test code = CK MB) 1.8 0.5-3.6 [facility] DIVDMJT3662-47-58 02:44:00 Test Item Value Reference Range Interpretation Comments Total CK (test code = Total CK) 109 12-191 [facility] HospitalCARAC KFWYCDS3854-27-26 02:44:00 Test Item Value Reference Range Interpretation Comments Troponin-I (test code 0.02 See_Comment [Auto mated message] The = Troponin-I) system which g enerated this result transmit thelma reference range : <=0.40. The reference r eric was not used to interpr et this result as zana l/abnormal. [facility]annCARDIAC YDMENQY4802-40-98 02:44:00 Test Item Value Reference Range Interpretation Comments CK MB Index (test 1.7 See_Comment [Automate d message] The code = CK MB Index) system w [facility] generated this result transmit thelma reference range : <=2.5. The reference range was not used to interpr et this result as zana l/abnormal. [facility] CenterPlayPhone [id number] 02:44:00 Test Item Value Reference Range Interpretation Comments eGFR (test code = eGFR) 58 [facility] HospitalMassive Damage [id number] 02:44:00 Test Item Value Reference Range Interpretation Comments Bili Total (test code = Bili Total) 0.3 0.2-1.3 [facility]Play[facility] [id number] 02:44:00 Test Item Value Reference Range Interpretation Comments Alk Phos (test code = Alk Phos) 58 39-136 [facility]Play[facility] [id number] 02:44:00 Test Item Value Reference Range Interpretation Comments Albumin Lvl (test code = Albumin Lvl) 3.8 3.5-5.0 [facility]Play[facility] [id number] 02:44:00 Test Item Value Reference Range Interpretation Comments AST (test code = AST) 19 See_Comment [Auto mated message] The system which ge nerated this result transmit thelma reference range : <=37. The reference range was not used to interpr et this result as zana l/abnormal. [facility] CenterPlay[facility] [id number] 02:44:00 Test Item Value Reference Range Interpretation Comments Chloride Lvl (test code = Chloride Lvl) 106 95-109 [facility] [id number] 02:44:00 Test Item Value Reference Range Interpretation Comments Total Protein (test code = Total 7.8 6.4-8.4 Protein) [facility] [id number] 02:44:00 Test Item Value Reference Range Interpretation Comments CO2 (test code = CO2) 29 24-32 [facility] [id number] 02:44:00 Test Item Value Reference Range Interpretation Comments Calcium Lvl (test code = Calcium Lvl) 9.8 8.5-10.5 [facility] [id number] 02:44:00 Test Item Value Reference Range Interpretation Comments Potassium Lvl (test code = Potassium 4.7 3.5-5.1 Lvl) [facility]2015-07-24 02:44:00 Test Item Value Reference Range Interpretation Comments Glucose Lvl (test code = Glucose Lvl) 179 70-99 [facility]2015-07-24 02:44:00 Test Item Value Reference Range Interpretation Comments Sodium Lvl (test code = Sodium Lvl) 142 135-145 [facility]2015-07-24 02:44:00 Test Item Value Reference Range Interpretation Comments ALT (test code = ALT) 21 See_Comment [Auto mated message] The system which ge nerated this result transmit thelma reference range : <=65. The reference range was not used to interpr et this result as zana l/abnormal. [facility]2015-07-24 02:44:00 Test Item Value Reference Range Interpretation Comments BUN (test code = BUN) 16 7-22 [facility]2015-07-24 02:44:00 Test Item Value Reference Range Interpretation Comments Creatinine Lvl (test code = Creatinine 1.0 0.5-1.4 Lvl) [facility]2015-07-24 02:44:00 Test Item Value Reference Range Interpretation Comments A/G Ratio (test code = A/G Ratio) 1.0 0.7-1.6 [facility]2015-07-24 02:44:00 Test Item Value Reference Range Interpretation Comments B/C Ratio (test code = B/C Ratio) 16 6-25 [facility]2015-07-24 02:44:00 Test Item Value Reference Range Interpretation Comments Globulin (test code = Globulin) 4.0 2.0-4.0 [facility]2015-07-24 02:44:00 Test Item Value Reference Range Interpretation Comments AGAP (test code = AGAP) 11.7 10.0-20.0 [facility] NorthwestVmbneerKIZICGQVWD0948-43-60 02:44:00 Test Item Value Reference Range Interpretation Comments Basophils # (test code 0.0 See_Comment [Aut omated message] The = Basophils #) system which generated this result tra nsmitted reference range : <=0.2. The reference r eric was not used to int erpret this result as normal/abnormal . [facility] NorthwestCofaemyXYAVAHABNO5357-99-46 02:44:00 Test Item Value Reference Range Interpretation Comments Eosinophils # (test code 0.4 See_Comment [A utomated message] The = Eosinophils #) system whic h generated this result tra nsmitted reference range : <=0.5. The reference r eric was not used to int erpret this result as normal/abnormal . [facility] NorthwestGbwhhpyDCFNGKMGAC2830-92-54 02:44:00 Test Item Value Reference Range Interpretation Comments Segs-Bands # (test code = Segs-Bands #) 8.1 1.5-8.1 [facility] NorthwestWpebelbIYGRYLCVZP9524-81-30 02:44:00 Test Item Value Reference Range Interpretation Comments Lymphocytes # (test code = Lymphocytes 1.6 1.0-5.5 #) [facility] NorthwestWzmfdnxSWZCKXQPXH2188-27-88 02:44:00 Test Item Value Reference Range Interpretation Comments Eosinophils (test code = 3.6 See_Comment [A utomated message] The Eosinophils) system which ge nerated this result tra nsmitted reference range : <=4.0. The reference r eric was not used to int erpret this result as normal/abnormal . [facility] NorthwestHlrfjdsQODMBYNWES1986-54-35 02:44:00 Test Item Value Reference Range Interpretation Comments Basophils (test code = 0.4 See_Comment [Aut omated message] The Basophils) system which ge nerated this result tra nsmitted reference range : <=1.0. The reference r eric was not used to int erpret this result as normal/abnormal . [facility] NorthwestWxjhmclAIDITFNUNZ0714-16-35 02:44:00 Test Item Value Reference Range Interpretation Comments Monocytes # (test code 0.5 See_Comment [Aut omated message] The = Monocytes #) system which generated this result tra nsmitted reference range : <=0.8. The reference r eric was not used to int erpret this result as normal/abnormal . [facility] NorthwestNlcndzoLMAWCOPMMK8139-80-80 02:44:00 Test Item Value Reference Range Interpretation Comments Lymphocytes (test code = Lymphocytes) 15.3 20.0-40.0 [facility] NorthwestSpdbdibIIINDUAVBV1567-82-70 02:44:00 Test Item Value Reference Range Interpretation Comments Segs (test code = Segs) 76.4 45.0-75.0 [facility] HospitalQekmcczRCQUJXAJQW6859-39-25 02:44:00 Test Item Value Reference Range Interpretation Comments Monocytes (test code = Monocytes) 4.3 2.0-12.0 [facility] NorthwestExultltRVWJNQRGUB9331-76-77 02:44:00 Test Item Value Reference Range Interpretation Comments Hgb (test code = Hgb) 14.5 12.0-16.0 [facility] NorthwestIfubgxhPMRBTISVHN1953-54-94 02:44:00 Test Item Value Reference Range Interpretation Comments MCH (test code = MCH) 26.4 pg 27.0-31.0 [facility] HospitalCotiafwVLXHHWHADZ2657-37-48 02:44:00 Test Item Value Reference Range Interpretation Comments MCHC (test code = MCHC) 31.7 32.0-36.0 [facility] NorthwestLrsoaggGCPMHDQTKV8534-46-39 02:44:00 Test Item Value Reference Range Interpretation Comments MCV (test code = MCV) 83.4 80.0-98.0 [facility] NorthwestRwyfpxlMSPYVTBMGF0466-02-92 02:44:00 Test Item Value Reference Range Interpretation Comments Hct (test code = Hct) 45.6 36.0-48.0 [facility] NorthwestGpcmhheZRESQPCNXX1112-29-05 02:44:00 Test Item Value Reference Range Interpretation Comments RBC (test code = RBC) 5.47 4.20-5.40 [facility] NorthwestDgajxjiJLZBNCWUUA5094-72-22 02:44:00 Test Item Value Reference Range Interpretation Comments WBC (test code = WBC) 10.6 3.7-10.4 [facility] NorthwestXzxxmppCHACCASUYK5293-38-56 02:44:00 Test Item Value Reference Range Interpretation Comments RDW (test code = RDW) 13.9 11.5-14.5 [facility] NorthwestYeuwfryMUCQZVXJDM0929-65-43 02:44:00 Test Item Value Reference Range Interpretation Comments MPV (test code = MPV) 9.3 7.4-10.4 [facility] NorthwestEzllxgwITXVPZMKUD9818-74-82 02:44:00 Test Item Value Reference Range Interpretation Comments Platelet (test code = Platelet) 267 990-450 [facility] HospitalFgwbvfjYWIXWASUCZ4499-47-90 02:44:00 Test Item Value Reference Range Interpretation Comments Acetaminoph Lvl (test code = no gt 10-20 Acetaminoph Lvl) [place] [id number] 02:44:00 Test Item Value Reference Range Interpretation Comments Salicylate Lvl (test 2.1 See_Comment [Autom ated message] The code = Salicylate Lvl) gabby m which generated this result tra nsmitted reference range : <=30.0. The reference r eric was not used to int erpret this result as normal/abnormal . [place] [id number] 02:44:00 Test Item Value Reference Range Interpretation Comments Etoh (%) (test code = Etoh (%)) no gt [place] [id number] 02:44:00 Test Item Value Reference Range Interpretation Comments Ethanol Lvl (test code = Ethanol Lvl) no gt [facility] [id number] 20:50:00 Test Item Value Reference Range Interpretation Comments Magnesium Lvl (test code = Magnesium 1.5 1.8-2.4 Lvl) [facility] [id number] 20:50:00 Test Item Value Reference Range Interpretation Comments Phosphorus (test code = Phosphorus) 3.5 2.5-4.5 [facility] [id number] 20:50:00 Test Item Value Reference Range Interpretation Comments eGFR (test code = eGFR) 47 [facility] [id number] 20:50:00 Test Item Value Reference Range Interpretation Comments Chloride Lvl (test code = Chloride Lvl) 100 95-109 [facility] [id number] 20:50:00 Test Item Value Reference Range Interpretation Comments Sodium Lvl (test code = Sodium Lvl) 135 135-145 [facility] [id number] 20:50:00 Test Item Value Reference Range Interpretation Comments Potassium Lvl (test code = Potassium 4.9 3.5-5.1 Lvl) [facility] [id number] 20:50:00 Test Item Value Reference Range Interpretation Comments Glucose Lvl (test code = Glucose Lvl) 240 70-99 [facility] [id number] 20:50:00 Test Item Value Reference Range Interpretation Comments BUN (test code = BUN) 25 7-22 [facility] [id number] 20:50:00 Test Item Value Reference Range Interpretation Comments CO2 (test code = CO2) 29 24-32 [facility]2014-08-03 20:50:00 Test Item Value Reference Range Interpretation Comments AGAP (test code = AGAP) 10.9 10.0-20.0 [facility]2014-08-03 20:50:00 Test Item Value Reference Range Interpretation Comments Creatinine Lvl (test code = Creatinine 1.2 0.5-1.4 Lvl) [facility]2014-08-03 20:50:00 Test Item Value Reference Range Interpretation Comments Calcium Lvl (test code = Calcium Lvl) 9.3 8.5-10.5 [facility] NorthwestDdolmtyHXRPIGWVHZ9969-04-63 20:50:00 Test Item Value Reference Range Interpretation Comments MPV (test code = MPV) 9.6 7.4-10.4 [facility] NorthwestRkbgrmdYOWIEZILAN5294-45-47 20:50:00 Test Item Value Reference Range Interpretation Comments WBC (test code = WBC) 9.7 3.7-10.4 [facility] NorthwestArlzzvwCBJCZZUTSI9380-43-32 20:50:00 Test Item Value Reference Range Interpretation Comments RDW (test code = RDW) 13.8 11.5-14.5 [facility] NorthwestHtaufbyARYFAYKMVC8387-10-11 20:50:00 Test Item Value Reference Range Interpretation Comments MCHC (test code = MCHC) 32.9 32.0-36.0 [facility] NorthwestWkrutvoNJMLHOEVQY5740-36-96 20:50:00 Test Item Value Reference Range Interpretation Comments RBC (test code = RBC) 4.95 4.20-5.40 [facility] NorthwestHsstaddGYEDFQFVEE9756-07-35 20:50:00 Test Item Value Reference Range Interpretation Comments MCV (test code = MCV) 82.4 81.0-99.0 [facility] NorthwestDhrclstITLYAYQILL8525-77-30 20:50:00 Test Item Value Reference Range Interpretation Comments Hgb (test code = Hgb) 13.4 12.0-16.0 [facility] NorthwestEgzxghtJZBKYQAWKV1247-58-82 20:50:00 Test Item Value Reference Range Interpretation Comments Platelet (test code = Platelet) 275 243-450 [facility] NorthwestZbvszmsPDUONPBQPD8725-29-50 20:50:00 Test Item Value Reference Range Interpretation Comments Hct (test code = Hct) 40.8 36.0-48.0 [facility] NorthwestXloewewKNPTLAEXAB5997-49-63 20:50:00 Test Item Value Reference Range Interpretation Comments MCH (test code = MCH) 27.1 pg 27.0-31.0 [facility] NorthwestFybgxnmIEQEJSJEQI0931-44-52 20:50:00 Test Item Value Reference Range Interpretation Comments Monocytes # (test code 0.3 See_Comment [Aut omated message] The = Monocytes #) system which generated this result tra nsmitted reference range : <=0.8. The reference r eric was not used to int erpret this result as normal/abnormal . [facility] NorthwestCqostsgXNZUCGRIGQ3972-09-03 20:50:00 Test Item Value Reference Range Interpretation Comments Basophils # (test code 0.0 See_Comment [Aut omated message] The = Basophils #) system which generated this result tra nsmitted reference range : <=0.2. The reference r eric was not used to int erpret this result as normal/abnormal . [facility] NorthwestLdcrgqyKTPMOMJRMK5979-12-48 20:50:00 Test Item Value Reference Range Interpretation Comments Eosinophils # (test code 0.0 See_Comment [A utomated message] The = Eosinophils #) system whic h generated this result tra nsmitted reference range : <=0.5. The reference r eric was not used to int erpret this result as normal/abnormal . [facility] NorthwestUwbfiuqVUWHVLKVVC4432-36-58 20:50:00 Test Item Value Reference Range Interpretation Comments Segs-Bands # (test code = Segs-Bands #) 8.7 1.5-8.1 [facility] NorthwestYlpvvjdKZRRXAFGNW1014-02-05 20:50:00 Test Item Value Reference Range Interpretation Comments Lymphocytes # (test code = Lymphocytes 0.8 1.0-5.5 #) [facility] NorthwestPiukfdgKDSWGQXEGI3400-03-97 20:50:00 Test Item Value Reference Range Interpretation Comments Eosinophils (test code = 0.0 See_Comment [A utomated message] The Eosinophils) system which ge nerated this result tra nsmitted reference range : <=4.0. The reference r eric was not used to int erpret this result as normal/abnormal . [facility] NorthwestQmjkciyPHZLLVYIOF0692-30-83 20:50:00 Test Item Value Reference Range Interpretation Comments Basophils (test code = 0.2 See_Comment [Aut omated message] The Basophils) system which ge nerated this result tra nsmitted reference range : <=1.0. The reference r eric was not used to int erpret this result as normal/abnormal . [facility] NorthwestHcswgzqAYFWFXMVUO7382-70-79 20:50:00 Test Item Value Reference Range Interpretation Comments Monocytes (test code = Monocytes) 2.7 2.0-12.0 [facility] NorthwestGvbxpcyYFGPFTGVFH9289-16-96 20:50:00 Test Item Value Reference Range Interpretation Comments Lymphocytes (test code = Lymphocytes) 8.1 20.0-40.0 [facility] NorthwestAaomnswQGPAQVQSQD4980-85-85 20:50:00 Test Item Value Reference Range Interpretation Comments Segs (test code = Segs) 89.0 45.0-75.0 [facility]2014-08-03 20:50:00 Test Item Value Reference Range Interpretation Comments Magnesium Lvl (test code = Magnesium 1.5 1.8-2.4 Lvl) [facility]2014-08-03 20:50:00 Test Item Value Reference Range Interpretation Comments Phosphorus (test code = Phosphorus) 3.5 2.5-4.5 [facility]2014-08-03 20:50:00 Test Item Value Reference Range Interpretation Comments eGFR (test code = eGFR) 47 [facility]2014-08-03 20:50:00 Test Item Value Reference Range Interpretation Comments Chloride Lvl (test code = Chloride Lvl) 100 95-109 [facility]2014-08-03 20:50:00 Test Item Value Reference Range Interpretation Comments Sodium Lvl (test code = Sodium Lvl) 135 135-145 [facility]2014-08-03 20:50:00 Test Item Value Reference Range Interpretation Comments Potassium Lvl (test code = Potassium 4.9 3.5-5.1 Lvl) [facility]2014-08-03 20:50:00 Test Item Value Reference Range Interpretation Comments Glucose Lvl (test code = Glucose Lvl) 240 70-99 [facility]2014-08-03 20:50:00 Test Item Value Reference Range Interpretation Comments BUN (test code = BUN) 25 7-22 [facility]2014-08-03 20:50:00 Test Item Value Reference Range Interpretation Comments CO2 (test code = CO2) 29 24-32 [facility]2014-08-03 20:50:00 Test Item Value Reference Range Interpretation Comments AGAP (test code = AGAP) 10.9 10.0-20.0 [facility]2014-08-03 20:50:00 Test Item Value Reference Range Interpretation Comments Creatinine Lvl (test code = Creatinine 1.2 0.5-1.4 Lvl) [facility]2014-08-03 20:50:00 Test Item Value Reference Range Interpretation Comments Calcium Lvl (test code = Calcium Lvl) 9.3 8.5-10.5 [facility] NorthwestJlqjmunFYLFRXSATJ8440-77-22 20:50:00 Test Item Value Reference Range Interpretation Comments MPV (test code = MPV) 9.6 7.4-10.4 [facility] NorthwestCkntugoYDKGGGSNUZ8313-98-21 20:50:00 Test Item Value Reference Range Interpretation Comments WBC (test code = WBC) 9.7 3.7-10.4 [facility] NorthwestZshfxrfTXJJPPUEFV1006-03-23 20:50:00 Test Item Value Reference Range Interpretation Comments RDW (test code = RDW) 13.8 11.5-14.5 [facility] NorthwestFhiazmiGLHXAPLZCS0799-13-50 20:50:00 Test Item Value Reference Range Interpretation Comments MCHC (test code = MCHC) 32.9 32.0-36.0 [facility] NorthwestSfasjssSJRPAXHHKK6402-41-91 20:50:00 Test Item Value Reference Range Interpretation Comments RBC (test code = RBC) 4.95 4.20-5.40 [facility] NorthwestHturlaiHZQBNZAVKT4056-94-99 20:50:00 Test Item Value Reference Range Interpretation Comments MCV (test code = MCV) 82.4 81.0-99.0 [facility] NorthwestIdtumhgJCORMWJVNT7170-76-42 20:50:00 Test Item Value Reference Range Interpretation Comments Hgb (test code = Hgb) 13.4 12.0-16.0 [facility] NorthwestAwxxzmnYZVCQDZCVP5086-16-18 20:50:00 Test Item Value Reference Range Interpretation Comments Platelet (test code = Platelet) 275 107-450 [facility] NorthwestZsxqveyECIEIXLSGT4610-50-45 20:50:00 Test Item Value Reference Range Interpretation Comments Hct (test code = Hct) 40.8 36.0-48.0 [facility]ElclvegZHBMXDXAKV5693-98-25 20:50:00 Test Item Value Reference Range Interpretation Comments MCH (test code = MCH) 27.1 pg 27.0-31.0 [facility] NorthwestSpbndetLKOWHTOLFJ0114-48-49 20:50:00 Test Item Value Reference Range Interpretation Comments Monocytes # (test code 0.3 See_Comment [Aut omated message] The = Monocytes #) system which generated this result tra nsmitted reference range : <=0.8. The reference r eric was not used to int erpret this result as normal/abnormal . [facility] NorthwestIcaqnfmZTJDBUUJDZ2562-90-26 20:50:00 Test Item Value Reference Range Interpretation Comments Basophils # (test code 0.0 See_Comment [Aut omated message] The = Basophils #) system which generated this result tra nsmitted reference range : <=0.2. The reference r eric was not used to int erpret this result as normal/abnormal . [facility] NorthwestHotxouzLYIEVPZMXL2786-82-88 20:50:00 Test Item Value Reference Range Interpretation Comments Eosinophils # (test code 0.0 See_Comment [A utomated message] The = Eosinophils #) system whic h generated this result tra nsmitted reference range : <=0.5. The reference r eric was not used to int erpret this result as normal/abnormal . [facility] NorthwestPpezlybJZTCHPBAPD1593-48-18 20:50:00 Test Item Value Reference Range Interpretation Comments Segs-Bands # (test code = Segs-Bands #) 8.7 1.5-8.1 [facility] NorthwestGysxhbgLMPDCQDIZM4514-16-30 20:50:00 Test Item Value Reference Range Interpretation Comments Lymphocytes # (test code = Lymphocytes 0.8 1.0-5.5 #) [facility] NorthwestQzeojpxKRXPMDFFHY9318-95-87 20:50:00 Test Item Value Reference Range Interpretation Comments Eosinophils (test code = 0.0 See_Comment [A utomated message] The Eosinophils) system which ge nerated this result tra nsmitted reference range : <=4.0. The reference r eric was not used to int erpret this result as normal/abnormal . [facility] NorthwestBbbpkgmQMKCSDVHDP8178-28-52 20:50:00 Test Item Value Reference Range Interpretation Comments Basophils (test code = 0.2 See_Comment [Aut omated message] The Basophils) system which ge nerated this result tra nsmitted reference range : <=1.0. The reference r eric was not used to int erpret this result as normal/abnormal . [facility] NorthwestEmcawbmLQLIOZLSMN4390-46-43 20:50:00 Test Item Value Reference Range Interpretation Comments Monocytes (test code = Monocytes) 2.7 2.0-12.0 [facility] NorthwestTrbhdobDOAUIOPSGU3689-69-00 20:50:00 Test Item Value Reference Range Interpretation Comments Lymphocytes (test code = Lymphocytes) 8.1 20.0-40.0 [facility] NorthwestTyleqydEMEWFAVLEL5917-70-20 20:50:00 Test Item Value Reference Range Interpretation Comments Segs (test code = Segs) 89.0 45.0-75.0 [facility]2014-08-03 20:50:00 Test Item Value Reference Range Interpretation Comments Magnesium Lvl (test code = Magnesium 1.5 1.8-2.4 Lvl) [facility]2014-08-03 20:50:00 Test Item Value Reference Range Interpretation Comments Phosphorus (test code = Phosphorus) 3.5 2.5-4.5 [facility]2014-08-03 20:50:00 Test Item Value Reference Range Interpretation Comments eGFR (test code = eGFR) 47 [facility]2014-08-03 20:50:00 Test Item Value Reference Range Interpretation Comments Chloride Lvl (test code = Chloride Lvl) 100 95-109 [facility]2014-08-03 20:50:00 Test Item Value Reference Range Interpretation Comments Sodium Lvl (test code = Sodium Lvl) 135 135-145 [facility]2014-08-03 20:50:00 Test Item Value Reference Range Interpretation Comments Potassium Lvl (test code = Potassium 4.9 3.5-5.1 Lvl) [facility]2014-08-03 20:50:00 Test Item Value Reference Range Interpretation Comments Glucose Lvl (test code = Glucose Lvl) 240 70-99 [facility]2014-08-03 20:50:00 Test Item Value Reference Range Interpretation Comments BUN (test code = BUN) 25 7-22 [facility]2014-08-03 20:50:00 Test Item Value Reference Range Interpretation Comments CO2 (test code = CO2) 29 24-32 [place] 806244-08-03 20:50:00 Test Item Value Reference Range Interpretation Comments AGAP (test code = AGAP) 10.9 10.0-20.0 [facility]2014-08-03 20:50:00 Test Item Value Reference Range Interpretation Comments Creatinine Lvl (test code = Creatinine 1.2 0.5-1.4 Lvl) [facility]2014-08-03 20:50:00 Test Item Value Reference Range Interpretation Comments Calcium Lvl (test code = Calcium Lvl) 9.3 8.5-10.5 [facility] NorthwestGvusjndUVXBDUMNLS5268-89-63 20:50:00 Test Item Value Reference Range Interpretation Comments MPV (test code = MPV) 9.6 7.4-10.4 [facility] NorthwestAmlecufCQCYGDSHAZ9201-26-81 20:50:00 Test Item Value Reference Range Interpretation Comments WBC (test code = WBC) 9.7 3.7-10.4 [facility] NorthwestQuwgdpfIJCMITJRFZ2599-29-35 20:50:00 Test Item Value Reference Range Interpretation Comments RDW (test code = RDW) 13.8 11.5-14.5 [facility] NorthwestZxwxdndXAIQZMUUQU6973-86-50 20:50:00 Test Item Value Reference Range Interpretation Comments MCHC (test code = MCHC) 32.9 32.0-36.0 [facility] NorthwestUbbqdsfPSVGPFFNDL0811-74-10 20:50:00 Test Item Value Reference Range Interpretation Comments RBC (test code = RBC) 4.95 4.20-5.40 [facility] NorthwestMcdxkehLBLSDDEXQM1465-55-06 20:50:00 Test Item Value Reference Range Interpretation Comments MCV (test code = MCV) 82.4 81.0-99.0 [facility] NorthwestPyqzjzyUSBUOTDJWB1628-36-77 20:50:00 Test Item Value Reference Range Interpretation Comments Hgb (test code = Hgb) 13.4 12.0-16.0 [facility] NorthwestHfmmfdsBSSJVAKQUA7156-57-13 20:50:00 Test Item Value Reference Range Interpretation Comments Platelet (test code = Platelet) 275 549-450 [facility] NorthwestRezngzjVIFSULIFRD9895-54-67 20:50:00 Test Item Value Reference Range Interpretation Comments Hct (test code = Hct) 40.8 36.0-48.0 [facility] NorthwestOtyjohwOMNQHVLMUJ0835-72-83 20:50:00 Test Item Value Reference Range Interpretation Comments MCH (test code = MCH) 27.1 pg 27.0-31.0 [facility] NorthwestVvvheviRHAUFDXLFM0655-65-29 20:50:00 Test Item Value Reference Range Interpretation Comments Monocytes # (test code 0.3 See_Comment [Aut omated message] The = Monocytes #) system which generated this result tra nsmitted reference range : <=0.8. The reference r eric was not used to int erpret this result as normal/abnormal . [facility] NorthwestSoqqgmuAMCVSYPHPB9699-70-18 20:50:00 Test Item Value Reference Range Interpretation Comments Basophils # (test code 0.0 See_Comment [Aut omated message] The = Basophils #) system which generated this result tra nsmitted reference range : <=0.2. The reference r eric was not used to int erpret this result as normal/abnormal . [facility] NorthwestYgikrnpPUUSNBXTJB5245-01-77 20:50:00 Test Item Value Reference Range Interpretation Comments Eosinophils # (test code 0.0 See_Comment [A utomated message] The = Eosinophils #) system whic h generated this result tra nsmitted reference range : <=0.5. The reference r eric was not used to int erpret this result as normal/abnormal . [facility] NorthwestDiickjeSKOVEYHULS5665-04-86 20:50:00 Test Item Value Reference Range Interpretation Comments Segs-Bands # (test code = Segs-Bands #) 8.7 1.5-8.1 [facility] NorthwestTirweoiFNKVRLQAZI7908-57-69 20:50:00 Test Item Value Reference Range Interpretation Comments Lymphocytes # (test code = Lymphocytes 0.8 1.0-5.5 #) [facility] NorthwestVneitmaQIQVWDHAUC4268-42-86 20:50:00 Test Item Value Reference Range Interpretation Comments Eosinophils (test code = 0.0 See_Comment [A utomated message] The Eosinophils) system which ge nerated this result tra nsmitted reference range : <=4.0. The reference r eric was not used to int erpret this result as normal/abnormal . [facility] NorthwestTeksvwqTOHFULBBOB9053-76-08 20:50:00 Test Item Value Reference Range Interpretation Comments Basophils (test code = 0.2 See_Comment [Aut omated message] The Basophils) system which ge nerated this result tra nsmitted reference range : <=1.0. The reference r eric was not used to int erpret this result as normal/abnormal . [facility] NorthwestSlpqtdkBMNOUTYDNY9903-74-79 20:50:00 Test Item Value Reference Range Interpretation Comments Monocytes (test code = Monocytes) 2.7 2.0-12.0 [facility] NorthwestXqzzzlzYDYOYIKYOV5361-15-83 20:50:00 Test Item Value Reference Range Interpretation Comments Lymphocytes (test code = Lymphocytes) 8.1 20.0-40.0 [facility] NorthwestKdjujqkNJUCMVWIUV7743-76-31 20:50:00 Test Item Value Reference Range Interpretation Comments Segs (test code = Segs) 89.0 45.0-75.0 [facility]2014-08-01 08:38:00 Test Item Value Reference Range Interpretation Comments eGFR (test code = eGFR) 52 [facility]2014-08-01 08:38:00 Test Item Value Reference Range Interpretation Comments Chloride Lvl (test code = Chloride Lvl) 99 95-109 [facility]2014-08-01 08:38:00 Test Item Value Reference Range Interpretation Comments CO2 (test code = CO2) 29 24-32 [facility]2014-08-01 08:38:00 Test Item Value Reference Range Interpretation Comments Glucose Lvl (test code = Glucose Lvl) 309 70-99 [facility]2014-08-01 08:38:00 Test Item Value Reference Range Interpretation Comments Calcium Lvl (test code = Calcium Lvl) 8.9 8.5-10.5 [facility]2014-08-01 08:38:00 Test Item Value Reference Range Interpretation Comments BUN (test code = BUN) 27 7-22 [facility]2014-08-01 08:38:00 Test Item Value Reference Range Interpretation Comments Sodium Lvl (test code = Sodium Lvl) 135 135-145 [facility]2014-08-01 08:38:00 Test Item Value Reference Range Interpretation Comments Creatinine Lvl (test code = Creatinine 1.1 0.5-1.4 Lvl) [facility]2014-08-01 08:38:00 Test Item Value Reference Range Interpretation Comments Potassium Lvl (test code = Potassium 4.7 3.5-5.1 Lvl) [facility]2014-08-01 08:38:00 Test Item Value Reference Range Interpretation Comments Total Protein (test code = Total 6.5 6.4-8.4 Protein) [facility]2014-08-01 08:38:00 Test Item Value Reference Range Interpretation Comments Albumin Lvl (test code = Albumin Lvl) 2.6 3.5-5.0 [facility]2014-08-01 08:38:00 Test Item Value Reference Range Interpretation Comments ALT (test code = ALT) 15 See_Comment [Auto mated message] The system which ge nerated this result transmit thelma reference range : <=65. The reference range was not used to interpr et this result as zana l/abnormal. [facility]2014-08-01 08:38:00 Test Item Value Reference Range Interpretation Comments AST (test code = AST) 10 See_Comment [Auto mated message] The system which ge nerated this result transmit thelma reference range : <=37. The reference range was not used to interpr et this result as zana l/abnormal. [facility]2014-08-01 08:38:00 Test Item Value Reference Range Interpretation Comments Alk Phos (test code = Alk Phos) 41 39-136 [facility]2014-08-01 08:38:00 Test Item Value Reference Range Interpretation Comments Bili Total (test code = Bili Total) 0.4 0.2-1.3 [facility]2014-08-01 08:38:00 Test Item Value Reference Range Interpretation Comments A/G Ratio (test code = A/G Ratio) 0.7 0.7-1.6 [facility]2014-08-01 08:38:00 Test Item Value Reference Range Interpretation Comments Globulin (test code = Globulin) 3.9 2.0-4.0 [facility]2014-08-01 08:38:00 Test Item Value Reference Range Interpretation Comments B/C Ratio (test code = B/C Ratio) 25 6-25 [facility]2014-08-01 08:38:00 Test Item Value Reference Range Interpretation Comments AGAP (test code = AGAP) 11.7 10.0-20.0 [facility]2014-08-01 08:38:00 Test Item Value Reference Range Interpretation Comments Magnesium Lvl (test code = Magnesium 1.8 1.8-2.4 Lvl) [facility]2014-08-01 08:38:00 Test Item Value Reference Range Interpretation Comments Phosphorus (test code = Phosphorus) 2.4 2.5-4.5 [facility] NorthwestPfviadjXFIAGDCLJG4716-33-23 08:38:00 Test Item Value Reference Range Interpretation Comments WBC (test code = WBC) 18.1 3.7-10.4 [facility] NorthwestAqfmahdTGZSYICHLK4999-23-31 08:38:00 Test Item Value Reference Range Interpretation Comments Platelet (test code = Platelet) 248 133-450 [facility] NorthwestFazjmpeTWJRYEUITR6309-74-73 08:38:00 Test Item Value Reference Range Interpretation Comments RDW (test code = RDW) 13.8 11.5-14.5 [facility] NorthwestYcctecyUIZGTKLKGC3303-12-17 08:38:00 Test Item Value Reference Range Interpretation Comments MCHC (test code = MCHC) 32.2 32.0-36.0 [facility] NorthwestIacmhhhKRHMCMASUQ1885-47-16 08:38:00 Test Item Value Reference Range Interpretation Comments MCH (test code = MCH) 26.8 pg 27.0-31.0 [facility] NorthwestIrpjucbRDXMDEPSSJ2102-25-29 08:38:00 Test Item Value Reference Range Interpretation Comments Hct (test code = Hct) 37.1 36.0-48.0 [facility] NorthwestSyqlwqwALKSVHLKGY0146-70-11 08:38:00 Test Item Value Reference Range Interpretation Comments MCV (test code = MCV) 83.2 81.0-99.0 [facility] NorthwestCdshtgoGWNTPLOBIL7329-96-27 08:38:00 Test Item Value Reference Range Interpretation Comments RBC (test code = RBC) 4.47 4.20-5.40 [facility] NorthwestThgxqcxULWRPJHSPF0782-08-42 08:38:00 Test Item Value Reference Range Interpretation Comments Hgb (test code = Hgb) 12.0 12.0-16.0 [facility] NorthwestHdoakooQKGQNZQPML4271-71-13 08:38:00 Test Item Value Reference Range Interpretation Comments MPV (test code = MPV) 9.0 7.4-10.4 [facility] NorthwestThlxevgPVKYKBENRW5871-05-97 08:38:00 Test Item Value Reference Range Interpretation Comments Basophils # (test code 0.0 See_Comment [Aut omated message] The = Basophils #) system which generated this result tra nsmitted reference range : <=0.2. The reference r eric was not used to int erpret this result as normal/abnormal . [facility] NorthwestCqxwdctPWLAQNGSVB3457-91-56 08:38:00 Test Item Value Reference Range Interpretation Comments Toxic Gran (test code Slight *ABN*(04/14/14 = Toxic Gran) 3:38 AM) [facility] NorthwestLbgceaqUVDGONVKRG3067-37-44 08:38:00 Test Item Value Reference Range Interpretation Comments Monocytes # (test code 0.3 See_Comment [Aut omated message] The = Monocytes #) system which generated this result tra nsmitted reference range : <=0.8. The reference r eric was not used to int erpret this result as normal/abnormal . [facility] NorthwestDxajxgxADMMJZRYHU0197-38-94 08:38:00 Test Item Value Reference Range Interpretation Comments Eosinophils # (test code 0.0 See_Comment [A utomated message] The = Eosinophils #) system whic h generated this result tra nsmitted reference range : <=0.5. The reference r eric was not used to int erpret this result as normal/abnormal . [facility] NorthwestRfwxonaGINGMGJYEA3536-88-72 08:38:00 Test Item Value Reference Range Interpretation Comments Segs-Bands # (test code = Segs-Bands #) 17.2 1.5-8.1 [facility] NorthwestIwtamrxXOGYXPEUBF0937-46-95 08:38:00 Test Item Value Reference Range Interpretation Comments Lymphocytes # (test code = Lymphocytes 0.6 1.0-5.5 #) [facility] NorthwestFxdwnjyKTBLZLKUOD7368-23-80 08:38:00 Test Item Value Reference Range Interpretation Comments Basophils (test code = 0.1 See_Comment [Aut omated message] The Basophils) system which ge nerated this result tra nsmitted reference range : <=1.0. The reference r eric was not used to int erpret this result as normal/abnormal . [facility] NorthwestBgofcybKPLTKBABWB6143-52-80 08:38:00 Test Item Value Reference Range Interpretation Comments Segs (test code = Segs) 94.6 45.0-75.0 [facility] NorthwestUukgzstAQKKQYGFQZ2851-23-72 08:38:00 Test Item Value Reference Range Interpretation Comments Lymphocytes (test code = Lymphocytes) 3.5 20.0-40.0 [facility]FK9478[facility] 08:38:00 Test Item Value Reference Range Interpretation Comments Monocytes (test code = Monocytes) 1.8 2.0-12.0 [facility] NorthwestAmazriaADXBATAJIY1194-76-08 08:38:00 Test Item Value Reference Range Interpretation Comments Eosinophils (test code = 0.0 See_Comment [A utomated message] The Eosinophils) system which ge nerated this result tra nsmitted reference range : <=4.0. The reference r eric was not used to int erpret this result as normal/abnormal . [facility] NorthwestIutsfzfBBTQLIGRCI1489-49-13 08:38:00 Test Item Value Reference Range Interpretation Comments Plt Morph (test code = Normal (04/14/14 3:38 AM) Plt Morph) [facility]LzdjdbqYNOBOHSDXP1385-53-11 08:38:00 Test Item Value Reference Range Interpretation Comments RBC Morph (test code = Normal (04/14/14 3:38 AM) RBC Morph) [facility] ZQBTSXTPZ1293-56-66 08:38:00 Test Item Value Reference Range Interpretation Comments Hgb A1C (test code = Hgb A1C) 8.3 [facility] DNLME9412-11-37 08:38:00 Test Item Value Reference Range Interpretation Comments eGFR (test code = eGFR) 52 [facility]2014-08-01 08:38:00 Test Item Value Reference Range Interpretation Comments Chloride Lvl (test code = Chloride Lvl) 99 95-109 [facility]2014-08-01 08:38:00 Test Item Value Reference Range Interpretation Comments CO2 (test code = CO2) 29 24-32 [facility] VLSTQ1577-25-54 08:38:00 Test Item Value Reference Range Interpretation Comments Glucose Lvl (test code = Glucose Lvl) 309 70-99 [facility]2014-08-01 08:38:00 Test Item Value Reference Range Interpretation Comments Calcium Lvl (test code = Calcium Lvl) 8.9 8.5-10.5 [facility]2014-08-01 08:38:00 Test Item Value Reference Range Interpretation Comments BUN (test code = BUN) 27 7-22 [facility]2014-08-01 08:38:00 Test Item Value Reference Range Interpretation Comments Sodium Lvl (test code = Sodium Lvl) 135 135-145 [facility]2014-08-01 08:38:00 Test Item Value Reference Range Interpretation Comments Creatinine Lvl (test code = Creatinine 1.1 0.5-1.4 Lvl) [facility]2014-08-01 08:38:00 Test Item Value Reference Range Interpretation Comments Potassium Lvl (test code = Potassium 4.7 3.5-5.1 Lvl) [facility]2014-08-01 08:38:00 Test Item Value Reference Range Interpretation Comments Total Protein (test code = Total 6.5 6.4-8.4 Protein) [facility]2014-08-01 08:38:00 Test Item Value Reference Range Interpretation Comments Albumin Lvl (test code = Albumin Lvl) 2.6 3.5-5.0 [facility]2014-08-01 08:38:00 Test Item Value Reference Range Interpretation Comments ALT (test code = ALT) 15 See_Comment [Auto mated message] The system which ge nerated this result transmit thelma reference range : <=65. The reference range was not used to interpr et this result as zana l/abnormal. [facility]2014-08-01 08:38:00 Test Item Value Reference Range Interpretation Comments AST (test code = AST) 10 See_Comment [Auto mated message] The system which ge nerated this result transmit thelma reference range : <=37. The reference range was not used to interpr et this result as zaan l/abnormal. [facility]2014-08-01 08:38:00 Test Item Value Reference Range Interpretation Comments Alk Phos (test code = Alk Phos) 41 39-136 [facility]2014-08-01 08:38:00 Test Item Value Reference Range Interpretation Comments Bili Total (test code = Bili Total) 0.4 0.2-1.3 [facility]2014-08-01 08:38:00 Test Item Value Reference Range Interpretation Comments A/G Ratio (test code = A/G Ratio) 0.7 0.7-1.6 [facility]2014-08-01 08:38:00 Test Item Value Reference Range Interpretation Comments Globulin (test code = Globulin) 3.9 2.0-4.0 [facility]2014-08-01 08:38:00 Test Item Value Reference Range Interpretation Comments B/C Ratio (test code = B/C Ratio) 25 6-25 [facility]2014-08-01 08:38:00 Test Item Value Reference Range Interpretation Comments AGAP (test code = AGAP) 11.7 10.0-20.0 [facility]2014-08-01 08:38:00 Test Item Value Reference Range Interpretation Comments Magnesium Lvl (test code = Magnesium 1.8 1.8-2.4 Lvl) [facility]2014-08-01 08:38:00 Test Item Value Reference Range Interpretation Comments Phosphorus (test code = Phosphorus) 2.4 2.5-4.5 [facility] NorthwestTxrwpjyONNXEUWUWB7927-51-58 08:38:00 Test Item Value Reference Range Interpretation Comments WBC (test code = WBC) 18.1 3.7-10.4 [facility] NorthwestJuvtlfzKTJAJMKXTR0894-85-71 08:38:00 Test Item Value Reference Range Interpretation Comments Platelet (test code = Platelet) 248 133-450 [facility] NorthwestMspboibXHAKDOMCFK0633-62-39 08:38:00 Test Item Value Reference Range Interpretation Comments RDW (test code = RDW) 13.8 11.5-14.5 [facility] NorthwestLlfquvzSTYNMVXWGR4844-35-36 08:38:00 Test Item Value Reference Range Interpretation Comments MCHC (test code = MCHC) 32.2 32.0-36.0 [facility] NorthwestSwnmoosCNJPSGLMHA0380-30-02 08:38:00 Test Item Value Reference Range Interpretation Comments MCH (test code = MCH) 26.8 pg 27.0-31.0 [facility] NorthwestRynmnxyHRGDKWDXZD0663-52-77 08:38:00 Test Item Value Reference Range Interpretation Comments Hct (test code = Hct) 37.1 36.0-48.0 [facility] NorthwestHyevrklTIIFUQBJKK6875-22-43 08:38:00 Test Item Value Reference Range Interpretation Comments MCV (test code = MCV) 83.2 81.0-99.0 [facility] NorthwestJmbtojmXCBFISKZYX3130-43-94 08:38:00 Test Item Value Reference Range Interpretation Comments RBC (test code = RBC) 4.47 4.20-5.40 [place] 662434-08-01 08:38:00 Test Item Value Reference Range Interpretation Comments Hgb (test code = Hgb) 12.0 12.0-16.0 [facility] NorthwestFxoivlhZEFKGAENCS9332-62-90 08:38:00 Test Item Value Reference Range Interpretation Comments MPV (test code = MPV) 9.0 7.4-10.4 [facility] NorthwestUtdffybFZSTRFXJHV7256-22-50 08:38:00 Test Item Value Reference Range Interpretation Comments Basophils # (test code 0.0 See_Comment [Aut omated message] The = Basophils #) system which generated this result tra nsmitted reference range : <=0.2. The reference r eric was not used to int erpret this result as normal/abnormal . [facility] NorthwestZeeqlqhGDWATMHUHB4012-51-97 08:38:00 Test Item Value Reference Range Interpretation Comments Toxic Gran (test code Slight *ABN*(04/14/14 = Toxic Gran) 3:38 AM) [facility] NorthwestPgduqwmAOAGCGTVGF3280-96-17 08:38:00 Test Item Value Reference Range Interpretation Comments Monocytes # (test code 0.3 See_Comment [Aut omated message] The = Monocytes #) system which generated this result tra nsmitted reference range : <=0.8. The reference r eric was not used to int erpret this result as normal/abnormal . [facility] NorthwestMyebeujVNQRRCGAYG9594-11-09 08:38:00 Test Item Value Reference Range Interpretation Comments Eosinophils # (test code 0.0 See_Comment [A utomated message] The = Eosinophils #) system whic h generated this result tra nsmitted reference range : <=0.5. The reference r eric was not used to int erpret this result as normal/abnormal . [facility]HqyybkjVNLOUGOVHB6087-49-50 08:38:00 Test Item Value Reference Range Interpretation Comments Segs-Bands # (test code = Segs-Bands #) 17.2 1.5-8.1 [facility] NorthwestIyobhmoHDXEWGOFMD9708-65-40 08:38:00 Test Item Value Reference Range Interpretation Comments Lymphocytes # (test code = Lymphocytes 0.6 1.0-5.5 #) [facility] NorthwestUgfdqajDRDZBVXDVG1020-53-37 08:38:00 Test Item Value Reference Range Interpretation Comments Basophils (test code = 0.1 See_Comment [Aut omated message] The Basophils) system which ge nerated this result tra nsmitted reference range : <=1.0. The reference r eric was not used to int erpret this result as normal/abnormal . [facility]NyvgoesWDAPAMVOMC1692-83-55 08:38:00 Test Item Value Reference Range Interpretation Comments Segs (test code = Segs) 94.6 45.0-75.0 [facility]ZwvkffzNWGKUKZWAM7567-37-47 08:38:00 Test Item Value Reference Range Interpretation Comments Lymphocytes (test code = Lymphocytes) 3.5 20.0-40.0 [facility] HospitalAuxwfilQXFPSIONIL9753-37-60 08:38:00 Test Item Value Reference Range Interpretation Comments Monocytes (test code = Monocytes) 1.8 2.0-12.0 [facility] HospitalIjbcvqhHHCETWTYXL4299-94-66 08:38:00 Test Item Value Reference Range Interpretation Comments Eosinophils (test code = 0.0 See_Comment [A utomated message] The Eosinophils) system which ge nerated this result tra nsmitted reference range : <=4.0. The reference r eric was not used to int erpret this result as normal/abnormal . [facility] HospitalJutwazjHELIANEEAL9144-26-49 08:38:00 Test Item Value Reference Range Interpretation Comments Plt Morph (test code = Normal (04/14/14 3:38 AM) Plt Morph) [facility] HospitalGbtftaeTMJAIBEPZI4160-34-01 08:38:00 Test Item Value Reference Range Interpretation Comments RBC Morph (test code = Normal (04/14/14 3:38 AM) RBC Morph) [facility] HJSWBCNBA2773-07-31 08:38:00 Test Item Value Reference Range Interpretation Comments Hgb A1C (test code = Hgb A1C) 8.3 [facility] HospitalCHEM SDUMG0271-39-98 08:38:00 Test Item Value Reference Range Interpretation Comments eGFR (test code = eGFR) 52 [facility]CHE[facility] EWKZE0088-85-38 08:38:00 Test Item Value Reference Range Interpretation Comments Chloride Lvl (test code = Chloride Lvl) 99 95-109 [facility] JUIJS4209-41-17 08:38:00 Test Item Value Reference Range Interpretation Comments CO2 (test code = CO2) 29 24-32 [facility]CHE[facility] ZKLZI7640-33-05 08:38:00 Test Item Value Reference Range Interpretation Comments Glucose Lvl (test code = Glucose Lvl) 309 70-99 [facility]2014-08-01 08:38:00 Test Item Value Reference Range Interpretation Comments Calcium Lvl (test code = Calcium Lvl) 8.9 8.5-10.5 [facility]2014-08-01 08:38:00 Test Item Value Reference Range Interpretation Comments BUN (test code = BUN) 27 7-22 [facility]2014-08-01 08:38:00 Test Item Value Reference Range Interpretation Comments Sodium Lvl (test code = Sodium Lvl) 135 135-145 [facility]2014-08-01 08:38:00 Test Item Value Reference Range Interpretation Comments Creatinine Lvl (test code = Creatinine 1.1 0.5-1.4 Lvl) [facility]2014-08-01 08:38:00 Test Item Value Reference Range Interpretation Comments Potassium Lvl (test code = Potassium 4.7 3.5-5.1 Lvl) [facility]2014-08-01 08:38:00 Test Item Value Reference Range Interpretation Comments Total Protein (test code = Total 6.5 6.4-8.4 Protein) [facility]2014-08-01 08:38:00 Test Item Value Reference Range Interpretation Comments Albumin Lvl (test code = Albumin Lvl) 2.6 3.5-5.0 [facility]2014-08-01 08:38:00 Test Item Value Reference Range Interpretation Comments ALT (test code = ALT) 15 See_Comment [Auto mated message] The system which nerated this result transmit thelma reference range : <=65. The reference range was not used to interpr et this result as zana l/abnormal. [facility]2014-08-01 08:38:00 Test Item Value Reference Range Interpretation Comments AST (test code = AST) 10 See_Comment [Auto mated message] The system which [employer] nerated this result transmit thelma reference range : <=37. The reference range was not used to interpr et this result as zana l/abnormal. [facility]2014-08-01 08:38:00 Test Item Value Reference Range Interpretation Comments Alk Phos (test code = Alk Phos) 41 39-136 [place] 806244-08-01 08:38:00 Test Item Value Reference Range Interpretation Comments Bili Total (test code = Bili Total) 0.4 0.2-1.3 [facility]2014-08-01 08:38:00 Test Item Value Reference Range Interpretation Comments A/G Ratio (test code = A/G Ratio) 0.7 0.7-1.6 [facility]2014-08-01 08:38:00 Test Item Value Reference Range Interpretation Comments Globulin (test code = Globulin) 3.9 2.0-4.0 [facility]2014-08-01 08:38:00 Test Item Value Reference Range Interpretation Comments B/C Ratio (test code = B/C Ratio) 25 6-25 [facility]2014-08-01 08:38:00 Test Item Value Reference Range Interpretation Comments AGAP (test code = AGAP) 11.7 10.0-20.0 [facility]2014-08-01 08:38:00 Test Item Value Reference Range Interpretation Comments Magnesium Lvl (test code = Magnesium 1.8 1.8-2.4 Lvl) [facility]2014-08-01 08:38:00 Test Item Value Reference Range Interpretation Comments Phosphorus (test code = Phosphorus) 2.4 2.5-4.5 [facility] NorthwestLfntbgcDFURCHTXGK4044-30-47 08:38:00 Test Item Value Reference Range Interpretation Comments WBC (test code = WBC) 18.1 3.7-10.4 [facility] NorthwestQaqtjzsXFXSRSCWTK2019-30-62 08:38:00 Test Item Value Reference Range Interpretation Comments Platelet (test code = Platelet) 248 133-450 [facility] NorthwestZzuwhshOVJXKEHKQU6970-09-65 08:38:00 Test Item Value Reference Range Interpretation Comments RDW (test code = RDW) 13.8 11.5-14.5 [facility] NorthwestYfxcndlXBAVCFTZFM1277-96-13 08:38:00 Test Item Value Reference Range Interpretation Comments MCHC (test code = MCHC) 32.2 32.0-36.0 [facility] NorthwestXyzghghQYQYNQPJIP6055-00-25 08:38:00 Test Item Value Reference Range Interpretation Comments MCH (test code = MCH) 26.8 pg 27.0-31.0 [facility] NorthwestKjsaabtXWXOIMYPYG2795-70-34 08:38:00 Test Item Value Reference Range Interpretation Comments Hct (test code = Hct) 37.1 36.0-48.0 [facility] NorthwestOqjplimCQAILCBAAD0112-87-46 08:38:00 Test Item Value Reference Range Interpretation Comments MCV (test code = MCV) 83.2 81.0-99.0 [facility] NorthwestBukjeqaEJIKVDXYIM8194-41-50 08:38:00 Test Item Value Reference Range Interpretation Comments RBC (test code = RBC) 4.47 4.20-5.40 [facility] NorthwestTvzefdsXVUDBOTKMQ9752-10-12 08:38:00 Test Item Value Reference Range Interpretation Comments Hgb (test code = Hgb) 12.0 12.0-16.0 [facility] NorthwestWxfgpfzGJAUFPIDLR6646-69-35 08:38:00 Test Item Value Reference Range Interpretation Comments MPV (test code = MPV) 9.0 7.4-10.4 [facility] NorthwestSouhoisGFCNIDWJEO0505-62-19 08:38:00 Test Item Value Reference Range Interpretation Comments Basophils # (test code 0.0 See_Comment [Aut omated message] The = Basophils #) system which generated this result tra nsmitted reference range : <=0.2. The reference r eric was not used to int erpret this result as normal/abnormal . [facility] NorthwestUpyebyzRQJXOXQDLD9701-66-98 08:38:00 Test Item Value Reference Range Interpretation Comments Toxic Gran (test code Slight *ABN*(04/14/14 = Toxic Gran) 3:38 AM) [facility] NorthwestTievnykUWNSUZVBYJ1355-13-16 08:38:00 Test Item Value Reference Range Interpretation Comments Monocytes # (test code 0.3 See_Comment [Aut omated message] The = Monocytes #) system which generated this result tra nsmitted reference range : <=0.8. The reference r eric was not used to int erpret this result as normal/abnormal . [facility] NorthwestZjecfkkJLNKIHMVIY1883-04-29 08:38:00 Test Item Value Reference Range Interpretation Comments Eosinophils # (test code 0.0 See_Comment [A utomated message] The = Eosinophils #) system whic h generated this result tra nsmitted reference range : <=0.5. The reference r eric was not used to int erpret this result as normal/abnormal . [facility] NorthwestPsnmpegWLVWHFERQW4225-52-94 08:38:00 Test Item Value Reference Range Interpretation Comments Segs-Bands # (test code = Segs-Bands #) 17.2 1.5-8.1 [facility]UyvwhaqQGLIGOKJYA2122-33-33 08:38:00 Test Item Value Reference Range Interpretation Comments Lymphocytes # (test code = Lymphocytes 0.6 1.0-5.5 #) [facility] NorthwestEktrnutSZYBUMZVQT6955-36-27 08:38:00 Test Item Value Reference Range Interpretation Comments Basophils (test code = 0.1 See_Comment [Aut omated message] The Basophils) system which ge nerated this result tra nsmitted reference range : <=1.0. The reference r eric was not used to int erpret this result as normal/abnormal . [facility] NorthwestMnilepjSFNYZIOGZD0868-70-30 08:38:00 Test Item Value Reference Range Interpretation Comments Segs (test code = Segs) 94.6 45.0-75.0 [facility] NorthwestCohmlkmVOTYKUXXIH0896-70-03 08:38:00 Test Item Value Reference Range Interpretation Comments Lymphocytes (test code = Lymphocytes) 3.5 20.0-40.0 [facility] NorthwestTvlxhrbTZUGRKEHRS9311-75-89 08:38:00 Test Item Value Reference Range Interpretation Comments Monocytes (test code = Monocytes) 1.8 2.0-12.0 [facility] NorthwestPjszdlaUTOVDMOZDO0917-46-72 08:38:00 Test Item Value Reference Range Interpretation Comments Eosinophils (test code = 0.0 See_Comment [A utomated message] The Eosinophils) system which ge nerated this result tra nsmitted reference range : <=4.0. The reference r eric was not used to int erpret this result as normal/abnormal . [facility] NorthwestZdgxfooFWJXBBDNEQ1913-96-05 08:38:00 Test Item Value Reference Range Interpretation Comments Plt Morph (test code = Normal (04/14/14 3:38 AM) Plt Morph) [facility] HospitalOkupkfvEZRHBRUDNR4394-33-60 08:38:00 Test Item Value Reference Range Interpretation Comments RBC Morph (test code = Normal (04/14/14 3:38 AM) RBC Morph) [facility] EN[facility]MUBTME3174[facility]15-[facility] 08:38:00 Test Item Value Reference Range Interpretation Comments Hgb A1C (test code = Hgb A1C) 8.3 [facility]CHE[facility] WCGMJ5795-74-57 07:30:00 Test Item Value Reference Range Interpretation Comments Magnesium Lvl (test code = Magnesium 1.8 1.8-2.4 Lvl) [facility]2014-07-31 07:30:00 Test Item Value Reference Range Interpretation Comments Phosphorus (test code = Phosphorus) 3.4 2.5-4.5 [facility]2014-07-31 07:30:00 Test Item Value Reference Range Interpretation Comments eGFR (test code = eGFR) 66 [facility]2014-07-31 07:30:00 Test Item Value Reference Range Interpretation Comments CO2 (test code = CO2) 30 24-32 [facility]2014-07-31 07:30:00 Test Item Value Reference Range Interpretation Comments Calcium Lvl (test code = Calcium Lvl) 9.3 8.5-10.5 [facility]2014-07-31 07:30:00 Test Item Value Reference Range Interpretation Comments Chloride Lvl (test code = Chloride Lvl) 103 95-109 [facility]2014-07-31 07:30:00 Test Item Value Reference Range Interpretation Comments AGAP (test code = AGAP) 11.1 10.0-20.0 [facility]2014-07-31 07:30:00 Test Item Value Reference Range Interpretation Comments Potassium Lvl (test code = Potassium 4.1 3.5-5.1 Lvl) [facility]2014-07-31 07:30:00 Test Item Value Reference Range Interpretation Comments BUN (test code = BUN) 16 7-22 [facility]2014-07-31 07:30:00 Test Item Value Reference Range Interpretation Comments Sodium Lvl (test code = Sodium Lvl) 140 135-145 [facility]2014-07-31 07:30:00 Test Item Value Reference Range Interpretation Comments Glucose Lvl (test code = Glucose Lvl) 230 70-99 [facility]2014-07-31 07:30:00 Test Item Value Reference Range Interpretation Comments Creatinine Lvl (test code = Creatinine 0.9 0.5-1.4 Lvl) [facility] NorthwestDmqjzpzGOMMRVWZZA0970-35-82 07:30:00 Test Item Value Reference Range Interpretation Comments Platelet (test code = Platelet) 226 133-450 [facility] NorthwestMmwdkvtINHCOQVTTG7102-66-13 07:30:00 Test Item Value Reference Range Interpretation Comments RDW (test code = RDW) 13.5 11.5-14.5 [facility] NorthwestBihlmrtPBMSZYJCMV1596-29-34 07:30:00 Test Item Value Reference Range Interpretation Comments MPV (test code = MPV) 9.7 7.4-10.4 [facility] NorthwestHughuxaRSAAVRQERA3095-11-90 07:30:00 Test Item Value Reference Range Interpretation Comments WBC (test code = WBC) 9.6 3.7-10.4 [facility] NorthwestNcpjrfdQJETZZLKSJ7440-06-95 07:30:00 Test Item Value Reference Range Interpretation Comments RBC (test code = RBC) 4.49 4.20-5.40 [facility] NorthwestIxbfzemAGNIEJHYNV6070-61-67 07:30:00 Test Item Value Reference Range Interpretation Comments Hgb (test code = Hgb) 12.0 12.0-16.0 [facility] NorthwestNazfhgyPLHMEYWFQU2443-70-89 07:30:00 Test Item Value Reference Range Interpretation Comments MCV (test code = MCV) 83.2 81.0-99.0 [facility] NorthwestCwwctrlDGUUZZFGBC2151-41-22 07:30:00 Test Item Value Reference Range Interpretation Comments Hct (test code = Hct) 37.4 36.0-48.0 [facility] NorthwestPguiohyYVDPZADLZM5443-27-61 07:30:00 Test Item Value Reference Range Interpretation Comments MCHC (test code = MCHC) 32.1 32.0-36.0 [facility] NorthwestAtalworTIGEUKNFHK8111-84-59 07:30:00 Test Item Value Reference Range Interpretation Comments MCH (test code = MCH) 26.7 pg 27.0-31.0 [facility] NorthwestTeqzydlPDJVDGTHKV3838-82-08 07:30:00 Test Item Value Reference Range Interpretation Comments Basophils (test code = 0.0 See_Comment [Aut omated message] The Basophils) system which ge nerated this result tra nsmitted reference range : <=1.0. The reference r eric was not used to int erpret this result as normal/abnormal . [facility] NorthwestWjnekllIEZIHRCANL7449-95-94 07:30:00 Test Item Value Reference Range Interpretation Comments Segs-Bands # (test code = Segs-Bands #) 8.9 1.5-8.1 [facility] NorthwestKlpwwgfHCPDWPTQXT4708-86-15 07:30:00 Test Item Value Reference Range Interpretation Comments Segs (test code = Segs) 92.8 45.0-75.0 [facility] NorthwestWmcyorfPTDTYUHEUJ6665-41-96 07:30:00 Test Item Value Reference Range Interpretation Comments Lymphocytes (test code = Lymphocytes) 5.4 20.0-40.0 [facility] NorthwestRibphvfZRVJBRSOPB4122-19-57 07:30:00 Test Item Value Reference Range Interpretation Comments Eosinophils (test code = 0.0 See_Comment [A utomated message] The Eosinophils) system which ge nerated this result tra nsmitted reference range : <=4.0. The reference r eric was not used to int erpret this result as normal/abnormal . [facility] NorthwestKjqmaygNGENBVVKXL2529-65-56 07:30:00 Test Item Value Reference Range Interpretation Comments Monocytes (test code = Monocytes) 1.8 2.0-12.0 [facility] NorthwestTpitjwaQZZIXJUFJO1350-14-91 07:30:00 Test Item Value Reference Range Interpretation Comments Lymphocytes # (test code = Lymphocytes 0.5 1.0-5.5 #) [facility] NorthwestCdncfzdYRWDTARGBU9343-46-10 07:30:00 Test Item Value Reference Range Interpretation Comments Monocytes # (test code 0.2 See_Comment [Aut omated message] The = Monocytes #) system which generated this result tra nsmitted reference range : <=0.8. The reference r eric was not used to int erpret this result as normal/abnormal . [facility] NorthwestYaxvlqkMMMQPBGWQH0527-56-03 07:30:00 Test Item Value Reference Range Interpretation Comments Eosinophils # (test code 0.0 See_Comment [A utomated message] The = Eosinophils #) system whic h generated this result tra nsmitted reference range : <=0.5. The reference r eric was not used to int erpret this result as normal/abnormal . [facility] NorthwestMithmubRLMMAQCNRJ8152-50-59 07:30:00 Test Item Value Reference Range Interpretation Comments Basophils # (test code 0.0 See_Comment [Aut omated message] The = Basophils #) system which generated this result tra nsmitted reference range : <=0.2. The reference r eric was not used to int erpret this result as normal/abnormal . [facility]2014-07-31 07:30:00 Test Item Value Reference Range Interpretation Comments Magnesium Lvl (test code = Magnesium 1.8 1.8-2.4 Lvl) [facility]2014-07-31 07:30:00 Test Item Value Reference Range Interpretation Comments Phosphorus (test code = Phosphorus) 3.4 2.5-4.5 [facility]2014-07-31 07:30:00 Test Item Value Reference Range Interpretation Comments eGFR (test code = eGFR) 66 [facility]2014-07-31 07:30:00 Test Item Value Reference Range Interpretation Comments CO2 (test code = CO2) 30 24-32 [facility]2014-07-31 07:30:00 Test Item Value Reference Range Interpretation Comments Calcium Lvl (test code = Calcium Lvl) 9.3 8.5-10.5 [facility]2014-07-31 07:30:00 Test Item Value Reference Range Interpretation Comments Chloride Lvl (test code = Chloride Lvl) 103 95-109 [facility]2014-07-31 07:30:00 Test Item Value Reference Range Interpretation Comments AGAP (test code = AGAP) 11.1 10.0-20.0 [facility]2014-07-31 07:30:00 Test Item Value Reference Range Interpretation Comments Potassium Lvl (test code = Potassium 4.1 3.5-5.1 Lvl) [facility]2014-07-31 07:30:00 Test Item Value Reference Range Interpretation Comments BUN (test code = BUN) 16 7-22 [facility]2014-07-31 07:30:00 Test Item Value Reference Range Interpretation Comments Sodium Lvl (test code = Sodium Lvl) 140 135-145 [facility]2014-07-31 07:30:00 Test Item Value Reference Range Interpretation Comments Glucose Lvl (test code = Glucose Lvl) 230 70-99 [facility]2014-07-31 07:30:00 Test Item Value Reference Range Interpretation Comments Creatinine Lvl (test code = Creatinine 0.9 0.5-1.4 Lvl) [facility] NorthwestRkrwgvaSTCMXJZFZX1179-21-55 07:30:00 Test Item Value Reference Range Interpretation Comments Platelet (test code = Platelet) 226 133-450 [facility] NorthwestAbkywosDBDQHOWAAV3016-06-16 07:30:00 Test Item Value Reference Range Interpretation Comments RDW (test code = RDW) 13.5 11.5-14.5 [facility] NorthwestTerixkrHVQWXUOCUK1242-52-99 07:30:00 Test Item Value Reference Range Interpretation Comments MPV (test code = MPV) 9.7 7.4-10.4 [facility] NorthwestImpiayuGIHXNQDGAH3520-60-59 07:30:00 Test Item Value Reference Range Interpretation Comments WBC (test code = WBC) 9.6 3.7-10.4 [facility] NorthwestOzwnmccYNJUXREUWC3169-93-56 07:30:00 Test Item Value Reference Range Interpretation Comments RBC (test code = RBC) 4.49 4.20-5.40 [facility] NorthwestRyadelwPWWQGVTZGW0239-33-62 07:30:00 Test Item Value Reference Range Interpretation Comments Hgb (test code = Hgb) 12.0 12.0-16.0 [facility] NorthwestItoealfBZRCYLURDU5843-16-06 07:30:00 Test Item Value Reference Range Interpretation Comments MCV (test code = MCV) 83.2 81.0-99.0 [facility] NorthwestDfcbwjrUZQPAPYXXM5654-93-01 07:30:00 Test Item Value Reference Range Interpretation Comments Hct (test code = Hct) 37.4 36.0-48.0 [facility] NorthwestLfwensqZBZVGEIYEP0318-41-89 07:30:00 Test Item Value Reference Range Interpretation Comments MCHC (test code = MCHC) 32.1 32.0-36.0 [facility] NorthwestFqkorogWNBKILVENP2356-37-72 07:30:00 Test Item Value Reference Range Interpretation Comments MCH (test code = MCH) 26.7 pg 27.0-31.0 [facility] NorthwestWdsbjjoYHXSKVXSDD6751-91-78 07:30:00 Test Item Value Reference Range Interpretation Comments Basophils (test code = 0.0 See_Comment [Aut omated message] The Basophils) system which ge nerated this result tra nsmitted reference range : <=1.0. The reference r eric was not used to int erpret this result as normal/abnormal . [facility] NorthwestUpiyhjnTYDLWUCNJA8399-98-82 07:30:00 Test Item Value Reference Range Interpretation Comments Segs-Bands # (test code = Segs-Bands #) 8.9 1.5-8.1 [facility] NorthwestLzttwjlUGRQQDLOHR5814-74-44 07:30:00 Test Item Value Reference Range Interpretation Comments Segs (test code = Segs) 92.8 45.0-75.0 [facility] NorthwestIqbwdcxIOCKWEEDUV5724-89-47 07:30:00 Test Item Value Reference Range Interpretation Comments Lymphocytes (test code = Lymphocytes) 5.4 20.0-40.0 [facility] NorthwestYaisdglHCWWOKTHXY6590-94-30 07:30:00 Test Item Value Reference Range Interpretation Comments Eosinophils (test code = 0.0 See_Comment [A utomated message] The Eosinophils) system which ge nerated this result tra nsmitted reference range : <=4.0. The reference r eric was not used to int erpret this result as normal/abnormal . [facility] NorthwestKmjuzsrSFVKLPCDET1525-90-14 07:30:00 Test Item Value Reference Range Interpretation Comments Monocytes (test code = Monocytes) 1.8 2.0-12.0 [facility] NorthwestCzejsinEVVPSHVSJC4556-08-95 07:30:00 Test Item Value Reference Range Interpretation Comments Lymphocytes # (test code = Lymphocytes 0.5 1.0-5.5 #) [facility] NorthwestTkcfvbdULESECXJAZ1622-98-42 07:30:00 Test Item Value Reference Range Interpretation Comments Monocytes # (test code 0.2 See_Comment [Aut omated message] The = Monocytes #) system which generated this result tra nsmitted reference range : <=0.8. The reference r eric was not used to int erpret this result as normal/abnormal . [facility] NorthwestJnmszriOHLLMDEUMH8427-20-14 07:30:00 Test Item Value Reference Range Interpretation Comments Eosinophils # (test code 0.0 See_Comment [A utomated message] The = Eosinophils #) system whic h generated this result tra nsmitted reference range : <=0.5. The reference r eric was not used to int erpret this result as normal/abnormal . [facility] NorthwestYfrcqipAXLSPTMOXV0216-03-16 07:30:00 Test Item Value Reference Range Interpretation Comments Basophils # (test code 0.0 See_Comment [Aut omated message] The = Basophils #) system which generated this result tra nsmitted reference range : <=0.2. The reference r eric was not used to int erpret this result as normal/abnormal . [facility]2014-07-31 07:30:00 Test Item Value Reference Range Interpretation Comments Magnesium Lvl (test code = Magnesium 1.8 1.8-2.4 Lvl) [facility]2014-07-31 07:30:00 Test Item Value Reference Range Interpretation Comments Phosphorus (test code = Phosphorus) 3.4 2.5-4.5 [facility]2014-07-31 07:30:00 Test Item Value Reference Range Interpretation Comments eGFR (test code = eGFR) 66 [facility]2014-07-31 07:30:00 Test Item Value Reference Range Interpretation Comments CO2 (test code = CO2) 30 24-32 [facility] [facility] 07:[facility]:00 Test Item Value Reference Range Interpretation Comments Calcium Lvl (test code = Calcium Lvl) 9.3 8.5-10.5 [facility]2014-07-31 07:30:00 Test Item Value Reference Range Interpretation Comments Chloride Lvl (test code = Chloride Lvl) 103 95-109 [facility]2014-07-31 07:30:00 Test Item Value Reference Range Interpretation Comments AGAP (test code = AGAP) 11.1 10.0-20.0 [facility]2014-07-31 07:30:00 Test Item Value Reference Range Interpretation Comments Potassium Lvl (test code = Potassium 4.1 3.5-5.1 Lvl) [facility]2014-07-31 07:30:00 Test Item Value Reference Range Interpretation Comments BUN (test code = BUN) 16 7-22 [facility]2014-07-31 07:30:00 Test Item Value Reference Range Interpretation Comments Sodium Lvl (test code = Sodium Lvl) 140 135-145 [facility]2014-07-31 07:30:00 Test Item Value Reference Range Interpretation Comments Glucose Lvl (test code = Glucose Lvl) 230 70-99 [facility]2014-07-31 07:30:00 Test Item Value Reference Range Interpretation Comments Creatinine Lvl (test code = Creatinine 0.9 0.5-1.4 Lvl) [facility]oxzwaqTGOCGVOENL8330-[facility] 07:30:00 Test Item Value Reference Range Interpretation Comments Platelet (test code = Platelet) 226 133-450 [facility] NorthwestOwnkyctGBDGZBWWHT5495-27-58 07:30:00 Test Item Value Reference Range Interpretation Comments RDW (test code = RDW) 13.5 11.5-14.5 [facility] NorthwestVjofnrhQZBBJZHMBN0041-36-04 07:30:00 Test Item Value Reference Range Interpretation Comments MPV (test code = MPV) 9.7 7.4-10.4 [facility] NorthwestZeulwfuNRWHSYTSIE1340-12-39 07:30:00 Test Item Value Reference Range Interpretation Comments WBC (test code = WBC) 9.6 3.7-10.4 [facility] NorthwestXcyfxczYANOTWRFDO8475-60-76 07:30:00 Test Item Value Reference Range Interpretation Comments RBC (test code = RBC) 4.49 4.20-5.40 [facility] NorthwestEzbbripEOIFSZDEMR9097-45-47 07:30:00 Test Item Value Reference Range Interpretation Comments Hgb (test code = Hgb) 12.0 12.0-16.0 [facility] NorthwestAjjpkbnKMNZNNFDLO5802-57-40 07:30:00 Test Item Value Reference Range Interpretation Comments MCV (test code = MCV) 83.2 81.0-99.0 [facility] NorthwestZxjjufsURHORFIEGG3055-48-77 07:30:00 Test Item Value Reference Range Interpretation Comments Hct (test code = Hct) 37.4 36.0-48.0 [facility] NorthwestBygdnlpGHJVVCEQMQ3681-75-46 07:30:00 Test Item Value Reference Range Interpretation Comments MCHC (test code = MCHC) 32.1 32.0-36.0 [facility] NorthwestMxnugrtTVYTSVVIZV2996-88-30 07:30:00 Test Item Value Reference Range Interpretation Comments MCH (test code = MCH) 26.7 pg 27.0-31.0 [facility] NorthwestWiltoxwUCHAOGSCVF6760-04-45 07:30:00 Test Item Value Reference Range Interpretation Comments Basophils (test code = 0.0 See_Comment [Aut omated message] The Basophils) system which ge nerated this result tra nsmitted reference range : <=1.0. The reference r eric was not used to int erpret this result as normal/abnormal . [facility] NorthwestFojpxxwMDEGFSRILJ4857-37-83 07:30:00 Test Item Value Reference Range Interpretation Comments Segs-Bands # (test code = Segs-Bands #) 8.9 1.5-8.1 [facility] NorthwestGudkeuqHEZDJRBION3432-18-16 07:30:00 Test Item Value Reference Range Interpretation Comments Segs (test code = Segs) 92.8 45.0-75.0 [facility] NorthwestHjxslqbNEPVAJPORL6514-67-24 07:30:00 Test Item Value Reference Range Interpretation Comments Lymphocytes (test code = Lymphocytes) 5.4 20.0-40.0 [facility] NorthwestMtfbaarPBOCQIYNIL7100-73-64 07:30:00 Test Item Value Reference Range Interpretation Comments Eosinophils (test code = 0.0 See_Comment [A utomated message] The Eosinophils) system which ge nerated this result tra nsmitted reference range : <=4.0. The reference r eric was not used to int erpret this result as normal/abnormal . [facility] NorthwestJfwwkaqJHUOLSCRJH8860-88-60 07:30:00 Test Item Value Reference Range Interpretation Comments Monocytes (test code = Monocytes) 1.8 2.0-12.0 [facility] NorthwestPdfblkmYDPQUNXTBQ6892-86-41 07:30:00 Test Item Value Reference Range Interpretation Comments Lymphocytes # (test code = Lymphocytes 0.5 1.0-5.5 #) [facility] NorthwestAabowarZWSXEGXRRF0700-79-87 07:30:00 Test Item Value Reference Range Interpretation Comments Monocytes # (test code 0.2 See_Comment [Aut omated message] The = Monocytes #) system which generated this result tra nsmitted reference range : <=0.8. The reference r eric was not used to int erpret this result as normal/abnormal . [facility] NorthwestJssnjoiMBEXBYPNQC6435-22-31 07:30:00 Test Item Value Reference Range Interpretation Comments Eosinophils # (test code 0.0 See_Comment [A utomated message] The = Eosinophils #) system whic h generated this result tra nsmitted reference range : <=0.5. The reference r eric was not used to int erpret this result as normal/abnormal . [facility] NorthwestYyeapwjANDKUHHEWX5877-15-84 07:30:00 Test Item Value Reference Range Interpretation Comments Basophils # (test code 0.0 See_Comment [Aut omated message] The = Basophils #) system which generated this result tra nsmitted reference range : <=0.2. The reference r eric was not used to int erpret this result as normal/abnormal . [place] [id number] 00:20:08 Test Item Value Reference Range Interpretation Comments Grp A Strep Scr (test Negative (04/12/14 7:20 code = Grp A Strep PM) Scr) [facility]Yqip[facility]ioOMHTR2943-91-04 00:20:08 Test Item Value Reference Range Interpretation Comments Grp A Strep Scr (test Negative (04/12/14 7:20 code = Grp A Strep PM) Scr) [facility] CenterTwvsmyyVJDLQ7533-62-47 00:20:08 Test Item Value Reference Range Interpretation Comments Grp A Strep Scr (test Negative (04/12/14 7:20 code = Grp A Strep PM) Scr) [facility] [employer]2014-07-30 16:10:00 Test Item Value Reference Range Interpretation Comments CK MB Index (test 1.9 See_Comment [Automate d message] The code = CK MB Index) system w [facility] generated this result transmit thelma reference range : <=2.5. The reference range was not used to interpr et this result as zana l/abnormal. [facility] [employer]2014-07-30 16:10:00 Test Item Value Reference Range Interpretation Comments BNP (test code = BNP) 24 [facility] [employer]2014-07-30 16:10:00 Test Item Value Reference Range Interpretation Comments Troponin-I (test code no gt See_Comment [Auto mated message] The = Troponin-I) system which g enerated this result transmit thelma reference range : <=0.40. The reference r eric was not used to interpr et this result as zana l/abnormal. [facility] [employer]2014-07-30 16:10:00 Test Item Value Reference Range Interpretation Comments CK MB (test code = CK MB) 0.6 0.5-3.6 [facility] [employer]2014-07-30 16:10:00 Test Item Value Reference Range Interpretation Comments Total CK (test code = Total CK) 31 12-191 [facility] [employer]2014-07-30 16:10:00 Test Item Value Reference Range Interpretation Comments Procalcitonin Lvl (test no gt See_Comment [Au tomated message] code = Procalcitonin Lvl) Th e system which generated this result transmitted ref erence range: <=0.10. The reference range was not used to interpr et this result as normal/abnormal . [employer]2014-07-30 16:10:00 Test Item Value Reference Range Interpretation Comments Lactic Acid Lvl (test code = Lactic 0.9 0.5-2.2 Acid Lvl) [facility]JxykkiuYRDGMNIPXS5779-77-33 16:10:00 Test Item Value Reference Range Interpretation Comments INR (test code = INR) 1.02 0.85-1.17 [facility] HospitalQrqekwaOMWOVIUOZE1613-88-27 16:10:00 Test Item Value Reference Range Interpretation Comments PT (test code = PT) 13.3 s 12.0-14.7 [facility] HospitalKjaya MedicalKAUZEBU6447-89-27 16:10:00 Test Item Value Reference Range Interpretation Comments CK MB Index (test 1.9 See_Comment [Automate d message] The code = CK MB Index) system w [facility] generated this result transmit thelma reference range : <=2.5. The reference range was not used to interpr et this result as zana l/abnormal. [facility] 16:10:00 Test Item Value Reference Range Interpretation Comments BNP (test code = BNP) 24 [facility] HospitalKjaya MedicalQOMQCYZ0063-64-62 16:10:00 Test Item Value Reference Range Interpretation Comments Troponin-I (test code no gt See_Comment [Auto mated message] The = Troponin-I) system which g enerated this result transmit thelma reference range : <=0.40. The reference r eric was not used to interpr et this result as zana l/abnormal. [facility] 16:10:00 Test Item Value Reference Range Interpretation Comments CK MB (test code = CK MB) 0.6 0.5-3.6 [facility] 16:10:00 Test Item Value Reference Range Interpretation Comments Total CK (test code = Total CK) 31 12-191 [facility] CenterBuscapéWEDVI8707-20-01 16:10:00 Test Item Value Reference Range Interpretation Comments Procalcitonin Lvl (test no gt See_Comment [Au tomated message] code = Procalcitonin Lvl) Th e system which generated this result transmitted ref erence range: <=0.10. The reference range was not used to interpr et this result as normal/abnormal . [facility] [employer]2014-07-30 16:10:00 Test Item Value Reference Range Interpretation Comments Lactic Acid Lvl (test code = Lactic 0.9 0.5-2.2 Acid Lvl) [facility] HospitalPqzzssvNXUTXTUMJG0089-09-78 16:10:00 Test Item Value Reference Range Interpretation Comments INR (test code = INR) 1.02 0.85-1.17 [facility] CenterWvrlcwfURGLVDMRAI3846-77-37 16:10:00 Test Item Value Reference Range Interpretation Comments PT (test code = PT) 13.3 s 12.0-14.7 [facility] 16:10:00 Test Item Value Reference Range Interpretation Comments CK MB Index (test 1.9 See_Comment [Automate d message] The code = CK MB Index) system w [facility] generated this result transmit thelma reference range : <=2.5. The reference range was not used to interpr et this result as zana l/abnormal. [facility] 16:10:00 Test Item Value Reference Range Interpretation Comments BNP (test code = BNP) 24 [facility] HospitalKjaya MedicalUFZCJSC0275-95-44 16:10:00 Test Item Value Reference Range Interpretation Comments Troponin-I (test code no gt See_Comment [Auto mated message] The = Troponin-I) system which g enerated this result transmit thelma reference range : <=0.40. The reference r eric was not used to interpr et this result as zana l/abnormal. [facility] [employer]2014-07-30 16:10:00 Test Item Value Reference Range Interpretation Comments CK MB (test code = CK MB) 0.6 0.5-3.6 [facility] 16:10:00 Test Item Value Reference Range Interpretation Comments Total CK (test code = Total CK) 31 12-191 [facility] [employer]2014-07-30 16:10:00 Test Item Value Reference Range Interpretation Comments Procalcitonin Lvl (test no gt See_Comment [Au tomated message] code = Procalcitonin Lvl) Th e system which generated this result transmitted ref erence range: <=0.10. The reference range was not used to interpr et this result as normal/abnormal . [employer]2014-07-30 16:10:00 Test Item Value Reference Range Interpretation Comments Lactic Acid Lvl (test code = Lactic 0.9 0.5-2.2 Acid Lvl) [facility] HospitalMzxzuipWISPEKKHIH2527-16-08 16:10:00 Test Item Value Reference Range Interpretation Comments INR (test code = INR) 1.02 0.85-1.17 [facility] HospitalAihjqptGXLAJUGCSM3604-86-68 16:10:00 Test Item Value Reference Range Interpretation Comments PT (test code = PT) 13.3 s 12.0-14.7 [facility] NNZACWW1127-47-49 20:14:00 Test Item Value Reference Range Interpretation Comments Comment2 (test code = Notified Nurse Comment2) [facility] GLU[facility]SE YTEPGDZ2946-57-26 20:14:00 Test Item Value Reference Range Interpretation Comments Comment1 (test code = Comment1) Notified [facility] GLUCOSE ASUCUCW4695-97-84 20:14:00 Test Item Value Reference Range Interpretation Comments Gluc POC Lifscn (test code = Gluc POC 164 70-99 H Lifscn) [facility] GLUCOSE [id number] 20:14:00 Test Item Value Reference Range Interpretation Comments Comment2 (test code = Notified Nurse Comment2) [facility] GLUCOSE OETTWSL5083-53-75 20:14:00 Test Item Value Reference Range Interpretation Comments Comment1 (test code = Comment1) Notified [facility] GLUCOSE LSMWCNY4621-06-24 20:14:00 Test Item Value Reference Range Interpretation Comments Gluc POC Lifscn (test code = Gluc POC 164 70-99 H Lifscn) [facility] GLUCOSE FNICMTQ8873-36-07 20:14:00 Test Item Value Reference Range Interpretation Comments Comment2 (test code = Notified Nurse Comment2) [facility] GLUCOSE [id number] 20:14:00 Test Item Value Reference Range Interpretation Comments Comment1 (test code = Comment1) Notified [facility] GLUCOSE MCZXJCL1129-57-70 20:14:00 Test Item Value Reference Range Interpretation Comments Gluc POC Lifscn (test code = Gluc POC 164 70-99 H Lifscn) [facility] HospitalVqjneufLWSMMKELDS6037-02-70 18:51:00 Test Item Value Reference Range Interpretation Comments UA Urobilinogen (test code *NA*(06/22/2012 0.1-1.0 = UA Urobilinogen) 13:51:00) [facility]VudtgljWDRFYFXNOG9070-23-83 18:51:00 Test Item Value Reference Range Interpretation Comments UA Mucus (test code = Few /LPF UA Mucus) *NA*(06/22/2012 13:51:00) [facility] HospitalHlizkesORMPBZKUGK0754-70-23 18:51:00 Test Item Value Reference Range Interpretation Comments UA Sq Epi (test code = Few /LPF UA Sq Epi) *NA*(06/22/2012 13:51:00) [facility] HospitalSwzusxoPMUUADPWYZ4133-19-86 18:51:00 Test Item Value Reference Range Interpretation Comments UA WBC (test code = 3 See_Comment N [Automa thelma message] The UA WBC) system which ge nerated this result transmit thelma reference range : <=5. The reference range was not used to interpr et this result as zana l/abnormal. [facility] HospitalZbpqlldLWABYNIHMY9516-95-27 18:51:00 Test Item Value Reference Range Interpretation Comments UA RBC (test code = 1 See_Comment N [Automa thelma message] The UA RBC) system which ge nerated this result transmit thelma reference range : <=2. The reference range was not used to interpr et this result as zana l/abnormal. [facility] HospitalAfsqoohWPLXEIARDA7746-90-60 18:51:00 Test Item Value Reference Range Interpretation Comments UA Leuk Est (test Moderate A code = UA Leuk Est) *ABN*(06/22/2012 13:51:00) [facility] HospitalSapnthdXNWPMFIGBE0176-39-66 18:51:00 Test Item Value Reference Range Interpretation Comments UA Blood (test code = Negative (06/22/2012 N UA Blood) 13:51:00) [facility] HospitalUjsdacbFHFYLYSWAX7503-87-94 18:51:00 Test Item Value Reference Range Interpretation Comments UA Nitrite (test code Negative (06/22/2012 N = UA Nitrite) 13:51:00) [facility] HospitalApmjwtzMVZJLJLBCM4541-46-78 18:51:00 Test Item Value Reference Range Interpretation Comments UA Ketones (test code Negative mg/dL = UA Ketones) *NA*(06/22/2012 13:51:00) [facility] HospitalVhcbpwrSEKVKHJNSM7897-47-78 18:51:00 Test Item Value Reference Range Interpretation Comments UA Bili (test code = Negative *NA*(06/22/2012 UA Bili) 13:51:00) [facility] HospitalCrlkxocZSWPBRMCFD6202-68-03 18:51:00 Test Item Value Reference Range Interpretation Comments UA Glucose (test code = 500 mg/dL A UA Glucose) *ABN*(06/22/2012 13:51:00) [facility]XzqnqnmHUONKQLIDP2940-70-88 18:51:00 Test Item Value Reference Range Interpretation Comments UA pH (test code = UA pH) 6.0 5.0-8.0 N [facility] CampusYwpbnkqVXCOLVKMOI0822-05-64 18:51:00 Test Item Value Reference Range Interpretation Comments UA Protein (test code Negative mg/dL N = UA Protein) (06/22/2012 13:51:00) [facility] HospitalCosdcraCLXIRMQUUM1173-32-52 18:51:00 Test Item Value Reference Range Interpretation Comments UA Spec Grav (test code = UA Spec Grav) 1.008 N [facility] CampusOajfeiaRPSUNHSMDE1591-65-49 18:51:00 Test Item Value Reference Range Interpretation Comments UA Color (test code = Yellow *NA*(06/22/2012 UA Color) 13:51:00) [facility] CampusVixukrkAYYJQMUWRZ5584-30-76 18:51:00 Test Item Value Reference Range Interpretation Comments UA Turbidity (test code = Clear (06/22/2012 N UA Turbidity) 13:51:00) [facility] HospitalSirylwqUhprsqmhovto2165-54-25 18:51:00 Test Item Value Reference Range Interpretation Comments Culture: Urine (test code = Culture: Urine) [facility] HospitalNyujubcYCZAYKTZJR7952-74-60 18:51:00 Test Item Value Reference Range Interpretation Comments UA Urobilinogen (test code *NA*(06/22/2012 0.1-1.0 = UA Urobilinogen) 13:51:00) [facility] CampusYvzzyvnLBZXZEFIPM5340-80-06 18:51:00 Test Item Value Reference Range Interpretation Comments UA Mucus (test code = Few /LPF UA Mucus) *NA*(06/22/2012 13:51:00) [facility] CampusWceosneTLCBKDNNEI1832-06-68 18:51:00 Test Item Value Reference Range Interpretation Comments UA Sq Epi (test code = Few /LPF UA Sq Epi) *NA*(06/22/2012 13:51:00) [facility] HospitalJhsmnigMJYHSIIGXO8114-54-15 18:51:00 Test Item Value Reference Range Interpretation Comments UA WBC (test code = 3 See_Comment N [Automa thelma message] The UA WBC) system which ge nerated this result transmit thelma reference range : <=5. The reference range was not used to interpr et this result as zana l/abnormal. [facility] HospitalSpzoswnZWETOMLVPF0127-34-67 18:51:00 Test Item Value Reference Range Interpretation Comments UA RBC (test code = 1 See_Comment N [Automa thelma message] The UA RBC) system which ge nerated this result transmit thelma reference range : <=2. The reference range was not used to interpr et this result as zana l/abnormal. [facility] HospitalIuqmcgnQMTQITVJKM5044-02-64 18:51:00 Test Item Value Reference Range Interpretation Comments UA Leuk Est (test Moderate A code = UA Leuk Est) *ABN*(06/22/2012 13:51:00) [facility] HospitalFgwhqcgDGLBKWTJKI2230-48-76 18:51:00 Test Item Value Reference Range Interpretation Comments UA Blood (test code = Negative (06/22/2012 N UA Blood) 13:51:00) [facility] HospitalKakejzxAVHJDSSQEC9762-58-58 18:51:00 Test Item Value Reference Range Interpretation Comments UA Nitrite (test code Negative (06/22/2012 N = UA Nitrite) 13:51:00) [facility] HospitalMpakorgHGMBQDTMAG1018-96-14 18:51:00 Test Item Value Reference Range Interpretation Comments UA Ketones (test code Negative mg/dL = UA Ketones) *NA*(06/22/2012 13:51:00) [facility] HospitalLjsrzisRVVPCDNSVF9106-59-96 18:51:00 Test Item Value Reference Range Interpretation Comments UA Bili (test code = Negative *NA*(06/22/2012 UA Bili) 13:51:00) [facility] HospitalQeydpanURFGOLWLIK3966-96-91 18:51:00 Test Item Value Reference Range Interpretation Comments UA Glucose (test code = 500 mg/dL A UA Glucose) *ABN*(06/22/2012 13:51:00) [facility] HospitalMokwkhtPEUXGPFCVZ0062-89-10 18:51:00 Test Item Value Reference Range Interpretation Comments UA pH (test code = UA pH) 6.0 5.0-8.0 N [facility] CampusPfybqzaKXCPVRWODH0938-72-63 18:51:00 Test Item Value Reference Range Interpretation Comments UA Protein (test code Negative mg/dL N = UA Protein) (06/22/2012 13:51:00) [facility] HospitalFfzyalaUHTZKYKCFN7051-36-76 18:51:00 Test Item Value Reference Range Interpretation Comments UA Spec Grav (test code = UA Spec Grav) 1.008 N [facility] HospitalCdclffrTCXBZHERGE4743-75-19 18:51:00 Test Item Value Reference Range Interpretation Comments UA Color (test code = Yellow *NA*(06/22/2012 UA Color) 13:51:00) [facility] HospitalHaacjbwPOMTHOSLGW6034-61-81 18:51:00 Test Item Value Reference Range Interpretation Comments UA Turbidity (test code = Clear (06/22/2012 N UA Turbidity) 13:51:00) [facility] HospitalXusxiakTefgedsvlvqq7738-01-70 18:51:00 Test Item Value Reference Range Interpretation Comments Culture: Urine (test code = Culture: Urine) [facility] HospitalVnmseciMYFHINAVBE7598-04-97 18:51:00 Test Item Value Reference Range Interpretation Comments UA Urobilinogen (test code *NA*(06/22/2012 0.1-1.0 = UA Urobilinogen) 13:51:00) [facility] HospitalQdcrdgeELQLIJUSBC0423-72-07 18:51:00 Test Item Value Reference Range Interpretation Comments UA Mucus (test code = Few /LPF UA Mucus) *NA*(06/22/2012 13:51:00) [facility] HospitalZuimjcpYCIGJSQDZJ8236-23-48 18:51:00 Test Item Value Reference Range Interpretation Comments UA Sq Epi (test code = Few /LPF UA Sq Epi) *NA*(06/22/2012 13:51:00) [facility] HospitalSfkhxbiHASBXNGDQW0970-02-72 18:51:00 Test Item Value Reference Range Interpretation Comments UA WBC (test code = 3 See_Comment N [Automa thelma message] The UA WBC) system which ge nerated this result transmit thelma reference range : <=5. The reference range was not used to interpr et this result as zana l/abnormal. [facility] HospitalGsvgvqcCPYIOZJAQQ0003-23-71 18:51:00 Test Item Value Reference Range Interpretation Comments UA RBC (test code = 1 See_Comment N [Automa thelma message] The UA RBC) system which ge nerated this result transmit thelma reference range : <=2. The reference range was not used to interpr et this result as zana l/abnormal. [facility] HospitalWnmzedpVKVELJIRUR4906-84-54 18:51:00 Test Item Value Reference Range Interpretation Comments UA Leuk Est (test Moderate A code = UA Leuk Est) *ABN*(06/22/2012 13:51:00) [facility] HospitalGtnmdirITZUSVDVGO7116-72-68 18:51:00 Test Item Value Reference Range Interpretation Comments UA Blood (test code = Negative (06/22/2012 N UA Blood) 13:51:00) [facility] HospitalEwxqpbqVJJULPKPFF8440-25-18 18:51:00 Test Item Value Reference Range Interpretation Comments UA Nitrite (test code Negative (06/22/2012 N = UA Nitrite) 13:51:00) [facility] HospitalEchehmbJDYQJSSWCA4902-88-50 18:51:00 Test Item Value Reference Range Interpretation Comments UA Ketones (test code Negative mg/dL = UA Ketones) *NA*(06/22/2012 13:51:00) [facility] HospitalArahzkaHPVZADSQGP4636-74-23 18:51:00 Test Item Value Reference Range Interpretation Comments UA Bili (test code = Negative *NA*(06/22/2012 UA Bili) 13:51:00) [facility] HospitalUhyuuihZYUANIWLOR7715-13-01 18:51:00 Test Item Value Reference Range Interpretation Comments UA Glucose (test code = 500 mg/dL A UA Glucose) *ABN*(06/22/2012 13:51:00) [facility] HospitalIkawyrsKPGWAKUBTM0974-42-49 18:51:00 Test Item Value Reference Range Interpretation Comments UA pH (test code = UA pH) 6.0 5.0-8.0 N [facility] HospitalZfuelckCXHLCXXGTP0710-99-31 18:51:00 Test Item Value Reference Range Interpretation Comments UA Protein (test code Negative mg/dL N = UA Protein) (06/22/2012 13:51:00) [facility] HospitalStuvjsjOFGRTELZHF5726-22-69 18:51:00 Test Item Value Reference Range Interpretation Comments UA Spec Grav (test code = UA Spec Grav) 1.008 N [facility]PpnoewfZSTNDYJYBB2305-39-94 18:51:00 Test Item Value Reference Range Interpretation Comments UA Color (test code = Yellow *NA*(06/22/2012 UA Color) 13:51:00) [facility]DgdhgyvHKKJNMNCPM2166-71-80 18:51:00 Test Item Value Reference Range Interpretation Comments UA Turbidity (test code = Clear (06/22/2012 N UA Turbidity) 13:51:00) [facility]JypnbamHfpdeptpzgxa6464-73-00 18:51:00 Test Item Value Reference Range Interpretation Comments Culture: Urine (test code = Culture: Urine) [facility] LakeSqeyoepIIBZHQWIG3907-30-27 18:28:00 Test Item Value Reference Range Interpretation Comments eGFR (test code = eGFR) 52 [facility] LakeKnwdnicNVYCEREMS1135-12-73 18:28:00 Test Item Value Reference Range Interpretation Comments Alk Phos (test code = Alk Phos) 50 39-136 N [facility] LakeZejiqdzEQVIPLZFK7253-97-60 18:28:00 Test Item Value Reference Range Interpretation Comments ALT (test code = ALT) 25 See_Comment N [Auto mated message] The system which ge nerated this result transmit thelma reference range : <=65. The reference range was not used to interpr et this result as zana l/abnormal. [facility] LakeGxmqauqWYVKSETLZ6122-86-00 18:28:00 Test Item Value Reference Range Interpretation Comments AST (test code = AST) 9 See_Comment N [Auto mated message] The system which ge nerated this result transmit thelma reference range : <=37. The reference range was not used to interpr et this result as zana l/abnormal. [facility] LakeLfhuaytRWDBLPWGS9947-48-69 18:28:00 Test Item Value Reference Range Interpretation Comments AGAP (test code = AGAP) 10.7 10.0-20.0 N [facility] LakeZamdxriBDKHRZIGN5334-93-44 18:28:00 Test Item Value Reference Range Interpretation Comments Bili Total (test code = Bili Total) 0.2 0.2-1.3 N [facility] LakeZxolhwzNBMZCLLCD9623-33-00 18:28:00 Test Item Value Reference Range Interpretation Comments B/C Ratio (test code = B/C Ratio) 13 6-25 N [facility] LakeZgautqxYBJSJFOFL1261-48-60 18:28:00 Test Item Value Reference Range Interpretation Comments Globulin (test code = Globulin) 4.1 2.0-4.0 H [facility] LakeHjnydxuHPUWTIDWJ2191-61-06 18:28:00 Test Item Value Reference Range Interpretation Comments A/G Ratio (test code = A/G Ratio) 0.9 0.7-1.6 N [facility] LakeLofphwhGXNCDLQIO8518-67-93 18:28:00 Test Item Value Reference Range Interpretation Comments Albumin Lvl (test code = Albumin Lvl) 3.6 3.5-5.0 N [facility] LakeNveklylERKQNEWXY2937-86-46 18:28:00 Test Item Value Reference Range Interpretation Comments Potassium Lvl (test code = Potassium 3.7 3.5-5.1 N Lvl) [facility] LakeXiigeyfDDPZLHYMK0431-77-08 18:28:00 Test Item Value Reference Range Interpretation Comments Chloride Lvl (test code = Chloride Lvl) 101 95-109 N [facility] LakeUoaeqwzFXMRLFCEW8387-09-68 18:28:00 Test Item Value Reference Range Interpretation Comments BUN (test code = BUN) 14 7-22 N [facility] LakeNgvnbswBTOYZSIBE9788-15-14 18:28:00 Test Item Value Reference Range Interpretation Comments Glucose Lvl (test code = Glucose Lvl) 236 70-99 H [facility] LakeCueghdlMDYOPPLDN3847-69-79 18:28:00 Test Item Value Reference Range Interpretation Comments Creatinine Lvl (test code = Creatinine 1.1 0.5-1.4 N Lvl) [facility] LakeXbnivyhKOBTMJRCL7987-09-91 18:28:00 Test Item Value Reference Range Interpretation Comments Sodium Lvl (test code = Sodium Lvl) 138 135-145 N [facility] LakeCmtjpkaRILLVTEZE7114-94-14 18:28:00 Test Item Value Reference Range Interpretation Comments Calcium Lvl (test code = Calcium Lvl) 9.3 8.5-10.5 N [facility] LakeYyqbtonSGWURYORN8154-83-71 18:28:00 Test Item Value Reference Range Interpretation Comments CO2 (test code = CO2) 30 24-32 N [facility] LakeUfcznrpYTXQZHOBU5907-31-48 18:28:00 Test Item Value Reference Range Interpretation Comments Total Protein (test code = Total 7.7 6.4-8.4 N Protein) [facility] LakeXdrajllLBGFCOEJO6345-17-98 18:28:00 Test Item Value Reference Range Interpretation Comments eGFR (test code = eGFR) 52 [facility] LakeSkaacdwDGPGKQJVK2383-84-12 18:28:00 Test Item Value Reference Range Interpretation Comments Alk Phos (test code = Alk Phos) 50 39-136 N [facility] LakePucdtxrKDTCNQIAD8266-25-54 18:28:00 Test Item Value Reference Range Interpretation Comments ALT (test code = ALT) 25 See_Comment N [Auto mated message] The system which ge nerated this result transmit thelma reference range : <=65. The reference range was not used to interpr et this result as zana l/abnormal. [facility] LakeSofjronZNFQTADPS2433-31-31 18:28:00 Test Item Value Reference Range Interpretation Comments AST (test code = AST) 9 See_Comment N [Auto mated message] The system which ge nerated this result transmit thelma reference range : <=37. The reference range was not used to interpr et this result as zana l/abnormal. [facility] LakeGbmrnfoYVVEVQKQK5225-38-06 18:28:00 Test Item Value Reference Range Interpretation Comments AGAP (test code = AGAP) 10.7 10.0-20.0 N [facility] LakeMtoajbsQPYDOLTRR7685-58-38 18:28:00 Test Item Value Reference Range Interpretation Comments Bili Total (test code = Bili Total) 0.2 0.2-1.3 N [facility] LakeBojzbghUTAFAXEIC2515-26-42 18:28:00 Test Item Value Reference Range Interpretation Comments B/C Ratio (test code = B/C Ratio) 13 6-25 N [facility] LakeEqpvvjfVVPFHJIFK0724-18-26 18:28:00 Test Item Value Reference Range Interpretation Comments Globulin (test code = Globulin) 4.1 2.0-4.0 H [facility] LakeNwkjcvbQXALEIUXI0764-69-32 18:28:00 Test Item Value Reference Range Interpretation Comments A/G Ratio (test code = A/G Ratio) 0.9 0.7-1.6 N [facility] LakeTwlufhjHTOSZFIZV8167-30-75 18:28:00 Test Item Value Reference Range Interpretation Comments Albumin Lvl (test code = Albumin Lvl) 3.6 3.5-5.0 N [facility] LakeRaodjmeLDUAWDYAZ1965-52-66 18:28:00 Test Item Value Reference Range Interpretation Comments Potassium Lvl (test code = Potassium 3.7 3.5-5.1 N Lvl) [facility] LakeDigzrdjMQHLPNXQP3444-94-52 18:28:00 Test Item Value Reference Range Interpretation Comments Chloride Lvl (test code = Chloride Lvl) 101 95-109 N [facility] LakeArixqppXYGQCXFZE7867-82-46 18:28:00 Test Item Value Reference Range Interpretation Comments BUN (test code = BUN) 14 7-22 N [facility] LakeTvicvisYKVFWWWYN2400-13-14 18:28:00 Test Item Value Reference Range Interpretation Comments Glucose Lvl (test code = Glucose Lvl) 236 70-99 H [facility] LakeVecizaqHMZWGCHTU9757-53-43 18:28:00 Test Item Value Reference Range Interpretation Comments Creatinine Lvl (test code = Creatinine 1.1 0.5-1.4 N Lvl) [facility] LakeBckyfxgCNXFEMULO4360-86-54 18:28:00 Test Item Value Reference Range Interpretation Comments Sodium Lvl (test code = Sodium Lvl) 138 135-145 N [facility] LakeCkcscoeWIBJLHIXH8670-72-39 18:28:00 Test Item Value Reference Range Interpretation Comments Calcium Lvl (test code = Calcium Lvl) 9.3 8.5-10.5 N [facility] LakeCpybtqkHRUTBRLWN3472-76-21 18:28:00 Test Item Value Reference Range Interpretation Comments CO2 (test code = CO2) 30 24-32 N [facility] LakeAnvovdnKXIJFPTGH6971-93-14 18:28:00 Test Item Value Reference Range Interpretation Comments Total Protein (test code = Total 7.7 6.4-8.4 N Protein) [facility] LakeCfenzpzUKUVVLALJ3845-73-35 18:28:00 Test Item Value Reference Range Interpretation Comments eGFR (test code = eGFR) 52 [facility] LakePyhfnpwPDEWHJADE4736-70-34 18:28:00 Test Item Value Reference Range Interpretation Comments Alk Phos (test code = Alk Phos) 50 39-136 N [facility] LakeDvlnkptZWCIIXVZI3906-84-88 18:28:00 Test Item Value Reference Range Interpretation Comments ALT (test code = ALT) 25 See_Comment N [Auto mated message] The system which ge nerated this result transmit thelma reference range : <=65. The reference range was not used to interpr et this result as zana l/abnormal. [facility] LakeJofhoxjHUQGOWZUF3005-11-97 18:28:00 Test Item Value Reference Range Interpretation Comments AST (test code = AST) 9 See_Comment N [Auto mated message] The system which ge nerated this result transmit thelma reference range : <=37. The reference range was not used to interpr et this result as zana l/abnormal. [facility] LakeNsblvddJTOJYHOAI2499-53-90 18:28:00 Test Item Value Reference Range Interpretation Comments AGAP (test code = AGAP) 10.7 10.0-20.0 N [facility] LakeTixvsioYAALXRVLG0610-47-21 18:28:00 Test Item Value Reference Range Interpretation Comments Bili Total (test code = Bili Total) 0.2 0.2-1.3 N [facility] LakeDzfcotlHRJVJEGMM9730-56-47 18:28:00 Test Item Value Reference Range Interpretation Comments B/C Ratio (test code = B/C Ratio) 13 6-25 N [facility] LakeTnzrewpMVVJCCTMF2874-18-09 18:28:00 Test Item Value Reference Range Interpretation Comments Globulin (test code = Globulin) 4.1 2.0-4.0 H [facility] LakeJvngxshKIBHNRMIL4340-48-89 18:28:00 Test Item Value Reference Range Interpretation Comments A/G Ratio (test code = A/G Ratio) 0.9 0.7-1.6 N [facility] LakeLorboxjEZGHSUPXB2049-34-77 18:28:00 Test Item Value Reference Range Interpretation Comments Albumin Lvl (test code = Albumin Lvl) 3.6 3.5-5.0 N [facility] LakeUtplqmxXDNFFQRQY4373-14-97 18:28:00 Test Item Value Reference Range Interpretation Comments Potassium Lvl (test code = Potassium 3.7 3.5-5.1 N Lvl) [facility] LakeFyacfliGOVDRPGDN6302-90-61 18:28:00 Test Item Value Reference Range Interpretation Comments Chloride Lvl (test code = Chloride Lvl) 101 95-109 N [facility] LakeCgevssjXQLDJTXAD9904-71-76 18:28:00 Test Item Value Reference Range Interpretation Comments BUN (test code = BUN) 14 7-22 N [facility] LakePiladgeIXCGIBNOL6059-50-77 18:28:00 Test Item Value Reference Range Interpretation Comments Glucose Lvl (test code = Glucose Lvl) 236 70-99 H [facility] LakeAngdcvzZGRQNQICV5871-13-53 18:28:00 Test Item Value Reference Range Interpretation Comments Creatinine Lvl (test code = Creatinine 1.1 0.5-1.4 N Lvl) [facility] LakeFarlxwaGWNOPRRPQ7785-81-03 18:28:00 Test Item Value Reference Range Interpretation Comments Sodium Lvl (test code = Sodium Lvl) 138 135-145 N [facility] LakeXitorqrXPNTIUYYG6627-02-62 18:28:00 Test Item Value Reference Range Interpretation Comments Calcium Lvl (test code = Calcium Lvl) 9.3 8.5-10.5 N [facility]CxirjlgILSMNOBZT2203-48-12 18:28:00 Test Item Value Reference Range Interpretation Comments CO2 (test code = CO2) 30 24-32 N [facility] LakeBzevrnfCSLBOHAFX3800-41-00 18:28:00 Test Item Value Reference Range Interpretation Comments Total Protein (test code = Total 7.7 6.4-8.4 N Protein) [facility] GLUCOSE [id number] 16:05:00 Test Item Value Reference Range Interpretation Comments Gluc POC Lifscn (test code = Gluc POC 160 70-99 H Lifscn) [facility] GLUCOSE OFBWMIJ0066-22-26 16:05:00 Test Item Value Reference Range Interpretation Comments Comment1 (test code = Comment1) Repeat Test [facility] GLUCOSE QRIKNFQ9780-39-02 16:05:00 Test Item Value Reference Range Interpretation Comments Gluc POC Lifscn (test code = Gluc POC 160 70-99 H Lifscn) [facility] GLUCOSE PCJFBBN1836-68-70 16:05:00 Test Item Value Reference Range Interpretation Comments Comment1 (test code = Comment1) Repeat Test [facility] GLUCOSE [id number] 16:05:00 Test Item Value Reference Range Interpretation Comments Gluc POC Lifscn (test code = Gluc POC 160 70-99 H Lifscn) [facility] GLUCOSE UZXJTQF9693-32-50 16:05:00 Test Item Value Reference Range Interpretation Comments Comment1 (test code = Comment1) Repeat Test [facility] GLUCOSE [id number] 12:08:00 Test Item Value Reference Range Interpretation Comments Gluc POC Lifscn (test code = Gluc POC 129 70-99 H Lifscn) [facility] GLUCOSE [id number] 12:08:00 Test Item Value Reference Range Interpretation Comments Gluc POC Lifscn (test code = Gluc POC 129 70-99 H Lifscn) [facility] GLUCOSE [id number] 12:08:00 Test Item Value Reference Range Interpretation Comments Gluc POC Lifscn (test code = Gluc POC 129 70-99 H Lifscn) [facility]PfgzvxoZHOHSHXCYZ7193-51-26 09:10:00 Test Item Value Reference Range Interpretation Comments RBC (test code = RBC) 3.93 4.20-5.40 L [facility] NorthwestOqevwphDPHJCMIRCW2731-20-94 09:10:00 Test Item Value Reference Range Interpretation Comments Hct (test code = Hct) 32.7 36.0-48.0 L [facility] NorthwestVowdjtpBBWXJTMBHU8494-35-25 09:10:00 Test Item Value Reference Range Interpretation Comments WBC (test code = WBC) 7.3 3.7-10.4 N [facility] NorthwestIdgbvzkIHJZNHDBJV4398-07-29 09:10:00 Test Item Value Reference Range Interpretation Comments MCV (test code = MCV) 83.2 81.0-99.0 N [facility] NorthwestWyfdcheJCYZOPGDSH6527-67-27 09:10:00 Test Item Value Reference Range Interpretation Comments MCH (test code = MCH) 28.5 pg 27.0-31.0 N [facility] NorthwestZqvnmzbVWKXRPIGLF8158-39-93 09:10:00 Test Item Value Reference Range Interpretation Comments RDW (test code = RDW) 13.9 11.5-14.5 N [facility] NorthwestIaqqldiXUDYXNPBBX7725-26-15 09:10:00 Test Item Value Reference Range Interpretation Comments MCHC (test code = MCHC) 34.2 32.0-36.0 N [facility] NorthwestXikbqdrUIMLMCVOGE5089-14-05 09:10:00 Test Item Value Reference Range Interpretation Comments MPV (test code = MPV) 8.5 7.4-10.4 N [facility] NorthwestEmwsgpnIPLPWGCRPE6052-02-02 09:10:00 Test Item Value Reference Range Interpretation Comments Platelet (test code = Platelet) 206 133-450 N [facility] NorthwestGtoyfohVQAFHBUEJT8201-90-82 09:10:00 Test Item Value Reference Range Interpretation Comments Hgb (test code = Hgb) 11.2 12.0-16.0 L [facility] NorthwestZdanlarYZHBEQQGWX3318-24-22 09:10:00 Test Item Value Reference Range Interpretation Comments Basophils # (test code 0.1 See_Comment N [Aut omated message] The = Basophils #) system which generated this result tra nsmitted reference range : <=0.2. The reference r eric was not used to int erpret this result as normal/abnormal . [facility] NorthwestBwdupzbYLPMCIQXMP2290-69-13 09:10:00 Test Item Value Reference Range Interpretation Comments Monocytes (test code = Monocytes) 9.3 2.0-12.0 N [facility] NorthwestInhobirGDGOQCTXUG3412-32-72 09:10:00 Test Item Value Reference Range Interpretation Comments Segs-Bands # (test code = Segs-Bands #) 3.6 1.5-8.1 N [facility] NorthwestAprytvqQVMORNLLAQ9443-07-54 09:10:00 Test Item Value Reference Range Interpretation Comments Monocytes # (test code 0.7 See_Comment N [Aut omated message] The = Monocytes #) system which generated this result tra nsmitted reference range : <=0.8. The reference r eric was not used to int erpret this result as normal/abnormal . [facility] NorthwestGdsvjluKMBUWFCFDQ5384-30-39 09:10:00 Test Item Value Reference Range Interpretation Comments Eosinophils # (test code 0.5 See_Comment N [A utomated message] The = Eosinophils #) system whic h generated this result tra nsmitted reference range : <=0.5. The reference r eric was not used to int erpret this result as normal/abnormal . [facility] NorthwestFqscqalEDZLILRAEZ1500-65-12 09:10:00 Test Item Value Reference Range Interpretation Comments Segs (test code = Segs) 49.3 45.0-75.0 N [facility] NorthwestHxhknkmIMDUMYSVUQ5595-97-64 09:10:00 Test Item Value Reference Range Interpretation Comments Lymphocytes # (test code = Lymphocytes 2.5 1.0-5.5 N #) [facility] NorthwestQzqamjxFZBILSCYGH1830-59-31 09:10:00 Test Item Value Reference Range Interpretation Comments Eosinophils (test code = 6.8 See_Comment H [A utomated message] The Eosinophils) system which ge nerated this result tra nsmitted reference range : <=4.0. The reference r eric was not used to int erpret this result as normal/abnormal . [facility] NorthwestTensdibOSYLLDGAZG2327-65-21 09:10:00 Test Item Value Reference Range Interpretation Comments Basophils (test code = 1.0 See_Comment N [Aut omated message] The Basophils) system which ge nerated this result tra nsmitted reference range : <=1.0. The reference r eric was not used to int erpret this result as normal/abnormal . [facility] NorthwestMimwsnmJGKRSHFDJJ6096-66-08 09:10:00 Test Item Value Reference Range Interpretation Comments Lymphocytes (test code = Lymphocytes) 33.6 20.0-40.0 N [facility] NorthwestNxruzcfWFOTFPDVZK4764-24-97 09:10:00 Test Item Value Reference Range Interpretation Comments RBC (test code = RBC) 3.93 4.20-5.40 L [facility] NorthwestVdnezwiEBCBBLSFGB9464-56-22 09:10:00 Test Item Value Reference Range Interpretation Comments Hct (test code = Hct) 32.7 36.0-48.0 L [facility] NorthwestZrbglbeYKCJQXJNAV6263-72-18 09:10:00 Test Item Value Reference Range Interpretation Comments WBC (test code = WBC) 7.3 3.7-10.4 N [facility] NorthwestUsuxxebNJTYCZGOHA1482-64-02 09:10:00 Test Item Value Reference Range Interpretation Comments MCV (test code = MCV) 83.2 81.0-99.0 N [facility] NorthwestNgurynoESWCNVDHPR2444-83-10 09:10:00 Test Item Value Reference Range Interpretation Comments MCH (test code = MCH) 28.5 pg 27.0-31.0 N [facility] NorthwestXbskiskLCZCEVDWEY5977-98-48 09:10:00 Test Item Value Reference Range Interpretation Comments RDW (test code = RDW) 13.9 11.5-14.5 N [facility] NorthwestFecbkwuIJMFELGNJG8514-79-12 09:10:00 Test Item Value Reference Range Interpretation Comments MCHC (test code = MCHC) 34.2 32.0-36.0 N [facility] NorthwestDptxcuwCRSWFEENTF1780-50-17 09:10:00 Test Item Value Reference Range Interpretation Comments MPV (test code = MPV) 8.5 7.4-10.4 N [facility] NorthwestBflemxcASPIKBIPRU6169-95-64 09:10:00 Test Item Value Reference Range Interpretation Comments Platelet (test code = Platelet) 206 133-450 N [facility] NorthwestHaudajjYDBYAOHPPS7021-68-33 09:10:00 Test Item Value Reference Range Interpretation Comments Hgb (test code = Hgb) 11.2 12.0-16.0 L [facility] NorthwestTyfaupySEMCNWXIRT7746-91-96 09:10:00 Test Item Value Reference Range Interpretation Comments Basophils # (test code 0.1 See_Comment N [Aut omated message] The = Basophils #) system which generated this result tra nsmitted reference range : <=0.2. The reference r eric was not used to int erpret this result as normal/abnormal . [facility] NorthwestRpdsfqwFULPGUQUJI1283-61-57 09:10:00 Test Item Value Reference Range Interpretation Comments Monocytes (test code = Monocytes) 9.3 2.0-12.0 N [facility] NorthwestSajynvtSMZKOJUCQU1318-58-24 09:10:00 Test Item Value Reference Range Interpretation Comments Segs-Bands # (test code = Segs-Bands #) 3.6 1.5-8.1 N [facility] NorthwestOlldewlHHIWLWMKZH7868-23-22 09:10:00 Test Item Value Reference Range Interpretation Comments Monocytes # (test code 0.7 See_Comment N [Aut omated message] The = Monocytes #) system which generated this result tra nsmitted reference range : <=0.8. The reference r eric was not used to int erpret this result as normal/abnormal . [facility] NorthwestZvbjqxvINXCLYVPHH3318-88-01 09:10:00 Test Item Value Reference Range Interpretation Comments Eosinophils # (test code 0.5 See_Comment N [A utomated message] The = Eosinophils #) system whic h generated this result tra nsmitted reference range : <=0.5. The reference r eric was not used to int erpret this result as normal/abnormal . [facility] NorthwestPmektwoPSFSWUCGCC1911-12-79 09:10:00 Test Item Value Reference Range Interpretation Comments Segs (test code = Segs) 49.3 45.0-75.0 N [facility] NorthwestNururnkDMKMGIHCXO1985-65-17 09:10:00 Test Item Value Reference Range Interpretation Comments Lymphocytes # (test code = Lymphocytes 2.5 1.0-5.5 N #) [facility] NorthwestAbgjgtiBZDKKVNSFK8843-99-21 09:10:00 Test Item Value Reference Range Interpretation Comments Eosinophils (test code = 6.8 See_Comment H [A utomated message] The Eosinophils) system which ge nerated this result tra nsmitted reference range : <=4.0. The reference r eric was not used to int erpret this result as normal/abnormal . [facility] NorthwestGmbueewKXHINZSIRG1921-94-96 09:10:00 Test Item Value Reference Range Interpretation Comments Basophils (test code = 1.0 See_Comment N [Aut omated message] The Basophils) system which ge nerated this result tra nsmitted reference range : <=1.0. The reference r eric was not used to int erpret this result as normal/abnormal . [facility] NorthwestFiaaqupBRUERWRCJQ1527-65-86 09:10:00 Test Item Value Reference Range Interpretation Comments Lymphocytes (test code = Lymphocytes) 33.6 20.0-40.0 N [facility] NorthwestKaizeemCFKDSDVNXH8074-87-55 09:10:00 Test Item Value Reference Range Interpretation Comments RBC (test code = RBC) 3.93 4.20-5.40 L [facility] NorthwestBukucmtCWQHHXHLVO1282-10-17 09:10:00 Test Item Value Reference Range Interpretation Comments Hct (test code = Hct) 32.7 36.0-48.0 L [facility] NorthwestMkvggouSNKJSYCAXL7480-32-94 09:10:00 Test Item Value Reference Range Interpretation Comments WBC (test code = WBC) 7.3 3.7-10.4 N [facility] NorthwestZbciwtcVTOVBPVIPU9769-76-51 09:10:00 Test Item Value Reference Range Interpretation Comments MCV (test code = MCV) 83.2 81.0-99.0 N [facility] NorthwestGshttfhUAJAFCGMWH0541-68-00 09:10:00 Test Item Value Reference Range Interpretation Comments MCH (test code = MCH) 28.5 pg 27.0-31.0 N [facility] NorthwestDrkdpvxKIPVYNJVPE9809-65-73 09:10:00 Test Item Value Reference Range Interpretation Comments RDW (test code = RDW) 13.9 11.5-14.5 N [facility] NorthwestNatyargORFPNQYWMT7232-62-48 09:10:00 Test Item Value Reference Range Interpretation Comments MCHC (test code = MCHC) 34.2 32.0-36.0 N [facility] NorthwestDrxuknoLINBROUVPI2278-87-41 09:10:00 Test Item Value Reference Range Interpretation Comments MPV (test code = MPV) 8.5 7.4-10.4 N [facility] NorthwestUphtmckIOGVUNPVTU2053-25-55 09:10:00 Test Item Value Reference Range Interpretation Comments Platelet (test code = Platelet) 206 133-450 N [facility] NorthwestXjujfmrGGFVRDFQXP9958-73-06 09:10:00 Test Item Value Reference Range Interpretation Comments Hgb (test code = Hgb) 11.2 12.0-16.0 L [facility] NorthwestTozwyvsVDSLTMVTBV3016-42-55 09:10:00 Test Item Value Reference Range Interpretation Comments Basophils # (test code 0.1 See_Comment N [Aut omated message] The = Basophils #) system which generated this result tra nsmitted reference range : <=0.2. The reference r eric was not used to int erpret this result as normal/abnormal . [facility] NorthwestDrbmhiuASSTZXGNPC9465-35-66 09:10:00 Test Item Value Reference Range Interpretation Comments Monocytes (test code = Monocytes) 9.3 2.0-12.0 N [facility]CgypxtyMOMIDRQZXH6612-18-11 09:10:00 Test Item Value Reference Range Interpretation Comments Segs-Bands # (test code = Segs-Bands #) 3.6 1.5-8.1 N [facility] NorthwestWitsbyeXDAAAGVXPZ4202-05-12 09:10:00 Test Item Value Reference Range Interpretation Comments Monocytes # (test code 0.7 See_Comment N [Aut omated message] The = Monocytes #) system which generated this result tra nsmitted reference range : <=0.8. The reference r eric was not used to int erpret this result as normal/abnormal . [facility] NorthwestSxekoooLQDZLJTZKU5249-66-78 09:10:00 Test Item Value Reference Range Interpretation Comments Eosinophils # (test code 0.5 See_Comment N [A utomated message] The = Eosinophils #) system whic h generated this result tra nsmitted reference range : <=0.5. The reference r eric was not used to int erpret this result as normal/abnormal . [facility] NorthwestAferdlgQPHUGXWGNC5132-06-16 09:10:00 Test Item Value Reference Range Interpretation Comments Segs (test code = Segs) 49.3 45.0-75.0 N [facility] NorthwestNmllazoCOVJZSOCMV0005-80-02 09:10:00 Test Item Value Reference Range Interpretation Comments Lymphocytes # (test code = Lymphocytes 2.5 1.0-5.5 N #) [facility] NorthwestOzvehsbACDEVJUTEU2428-40-75 09:10:00 Test Item Value Reference Range Interpretation Comments Eosinophils (test code = 6.8 See_Comment H [A utomated message] The Eosinophils) system which ge nerated this result tra nsmitted reference range : <=4.0. The reference r eric was not used to int erpret this result as normal/abnormal . [facility] NorthwestHtxuocjSPJNUBJCBU3701-43-75 09:10:00 Test Item Value Reference Range Interpretation Comments Basophils (test code = 1.0 See_Comment N [Aut omated message] The Basophils) system which ge nerated this result tra nsmitted reference range : <=1.0. The reference r eric was not used to int erpret this result as normal/abnormal . [facility] NorthwestBbfhawdEHEGMZVZZC5808-92-52 09:10:00 Test Item Value Reference Range Interpretation Comments Lymphocytes (test code = Lymphocytes) 33.6 20.0-40.0 N [facility] GLUCOSE MBMVTZD0156-45-51 02:13:00 Test Item Value Reference Range Interpretation Comments Comment1 (test code = Comment1) Notify RN [facility] GLUCOSE SSERAED8094-45-18 02:13:00 Test Item Value Reference Range Interpretation Comments Gluc POC Lifscn (test code = Gluc POC 146 70-99 H Lifscn) [facility] GLUCOSE YAYBHCB6386-48-78 02:13:00 Test Item Value Reference Range Interpretation Comments Comment1 (test code = Comment1) Notify RN [facility] GLUCOSE HWSDGVV6256-50-65 02:13:00 Test Item Value Reference Range Interpretation Comments Gluc POC Lifscn (test code = Gluc POC 146 70-99 H Lifscn) [facility] GLUCOSE CAWTKYU6835-21-56 02:13:00 Test Item Value Reference Range Interpretation Comments Comment1 (test code = Comment1) Notify RN [facility] GLUCOSE GRPJFZS0928-78-20 02:13:00 Test Item Value Reference Range Interpretation Comments Gluc POC Lifscn (test code = Gluc POC 146 70-99 H Lifscn) [facility]DvfqpkyTNVRSPVPG9815-75-65 09:45:00 Test Item Value Reference Range Interpretation Comments pO2 Art (test code = pO2 Art) 62 80-100 L [facility] CenterYeycxrvSDVLAVZBA4275-32-44 09:45:00 Test Item Value Reference Range Interpretation Comments HCO3 Art (test code = HCO3 Art) 30 22-26 H [facility] CenterCztexvxGWHFSNXGT5179-05-43 09:45:00 Test Item Value Reference Range Interpretation Comments pCO2 Art (test code = pCO2 Art) 54 35-45 H [facility] CenterPejhnsqZBETWZHZP5842-90-09 09:45:00 Test Item Value Reference Range Interpretation Comments BE Art (test code = 4 See_Comment H [Automa thelma message] The BE Art) system which ge nerated this result transmit thelma reference range : <=2. The reference range was not used to interpr et this result as zana l/abnormal. [facility] CenterZubkxesHXJFIUOUT7904-17-26 09:45:00 Test Item Value Reference Range Interpretation Comments O2 Sat Art (test code = O2 Sat Art) 92.0 95.0-100.0 L [facility] CenterDchscwrZWTXGJUEX2423-79-61 09:45:00 Test Item Value Reference Range Interpretation Comments pH Art (test code = pH Art) 7.36 7.35-7.45 N [facility] PtetalrOWJPIBVGI5634-39-32 09:45:00 Test Item Value Reference Range Interpretation Comments Allens Art (test code = N/A (06/10/2012 N Allens Art) 04:45:00) [facility] CenterAwklwlqLBHYMWVLH1443-03-67 09:45:00 Test Item Value Reference Range Interpretation Comments Mode Art (test code = Mode Art) Room Air [facility] OtouweaWAYXCUBSI7359-91-45 09:45:00 Test Item Value Reference Range Interpretation Comments Site Art (test code = A Line (06/10/2012 N Site Art) 04:45:00) [facility] CenterMblcxkyDZLHEVPYH5479-51-59 09:45:00 Test Item Value Reference Range Interpretation Comments FiO2 Art (test code = FiO2 Art) 21.0 [facility] CenterSpdbidoUELRIVLAH6962-64-67 09:45:00 Test Item Value Reference Range Interpretation Comments AGAP (test code = AGAP) 8.1 10.0-20.0 L [facility] CenterDssermtVQTIGBDBJ8199-81-67 09:45:00 Test Item Value Reference Range Interpretation Comments Chloride Lvl (test code = Chloride Lvl) 107 95-109 N [facility] LakeXpvfxtsIDQDHYWFL5899-04-04 09:45:00 Test Item Value Reference Range Interpretation Comments Calcium Lvl (test code = Calcium Lvl) 8.4 8.5-10.5 L [facility] LakeKlzsarcZGKOAANIS1832-80-65 09:45:00 Test Item Value Reference Range Interpretation Comments CO2 (test code = CO2) 30 24-32 N [facility] LakeXnwayjyVSVPZMOYZ0386-34-63 09:45:00 Test Item Value Reference Range Interpretation Comments BUN (test code = BUN) 8 7-22 N [facility] LakeZnllqenCFENGPIGR6689-40-88 09:45:00 Test Item Value Reference Range Interpretation Comments Creatinine Lvl (test code = Creatinine 0.7 0.5-1.4 N Lvl) [facility] LakeKgddfmoOTYECIEDV3657-80-49 09:45:00 Test Item Value Reference Range Interpretation Comments Sodium Lvl (test code = Sodium Lvl) 141 135-145 N [facility] LakeNhosrzyMCTTCDTJA3127-15-24 09:45:00 Test Item Value Reference Range Interpretation Comments Potassium Lvl (test code = Potassium 4.1 3.5-5.1 N Lvl) [facility] LakeAzwqwjbXIGSZQYEP5037-84-36 09:45:00 Test Item Value Reference Range Interpretation Comments Glucose Lvl (test code = Glucose Lvl) 114 70-99 H [facility] NorthwestVghsskaRVGAZFQARD9253-18-57 09:45:00 Test Item Value Reference Range Interpretation Comments MCH (test code = MCH) 28.2 pg 27.0-31.0 N [facility] NorthwestRbgqoeqNHQQAJICMK9345-67-18 09:45:00 Test Item Value Reference Range Interpretation Comments MPV (test code = MPV) 8.7 7.4-10.4 N [facility] NorthwestBwzittmDOTXFJNDJJ9974-04-17 09:45:00 Test Item Value Reference Range Interpretation Comments RDW (test code = RDW) 13.7 11.5-14.5 N [facility] NorthwestJqfzlbyNXFTRXXGGZ6883-47-08 09:45:00 Test Item Value Reference Range Interpretation Comments MCHC (test code = MCHC) 33.8 32.0-36.0 N [facility] NorthwestNbhykfcJUZQZABYVX4495-80-93 09:45:00 Test Item Value Reference Range Interpretation Comments Platelet (test code = Platelet) 200 133-450 N [facility] NorthwestAkmmusdDBEWBRQJGN5226-74-34 09:45:00 Test Item Value Reference Range Interpretation Comments MCV (test code = MCV) 83.6 81.0-99.0 N [facility] NorthwestOhcvuqkSUSQHKSRLB6035-33-55 09:45:00 Test Item Value Reference Range Interpretation Comments Hgb (test code = Hgb) 10.4 12.0-16.0 L [facility] NorthwestHyjoxvsCAPZDADZXL8872-74-96 09:45:00 Test Item Value Reference Range Interpretation Comments Hct (test code = Hct) 30.9 36.0-48.0 L [facility] NorthwestDahverbPBHGKBVLNP6343-58-91 09:45:00 Test Item Value Reference Range Interpretation Comments RBC (test code = RBC) 3.70 4.20-5.40 L [facility] NorthwestWhjwjelBLSNOSOMUR5268-85-88 09:45:00 Test Item Value Reference Range Interpretation Comments WBC (test code = WBC) 8.4 3.7-10.4 N [facility] NorthwestLcyqhphFTBJLDNDLK3348-17-15 09:45:00 Test Item Value Reference Range Interpretation Comments Eosinophils # (test code 0.5 See_Comment N [A utomated message] The = Eosinophils #) system whic h generated this result tra nsmitted reference range : <=0.5. The reference r eric was not used to int erpret this result as normal/abnormal . [facility] NorthwestMzrjffcCWCXKTWXPP0562-57-45 09:45:00 Test Item Value Reference Range Interpretation Comments Basophils # (test code 0.1 See_Comment N [Aut omated message] The = Basophils #) system which generated this result tra nsmitted reference range : <=0.2. The reference r eric was not used to int erpret this result as normal/abnormal . [facility] NorthwestMbkvquhEOEQKVFFRX0704-61-18 09:45:00 Test Item Value Reference Range Interpretation Comments Segs-Bands # (test code = Segs-Bands #) 4.6 1.5-8.1 N [facility] NorthwestDhoudjaYYZHNASFRY5412-26-95 09:45:00 Test Item Value Reference Range Interpretation Comments Monocytes (test code = Monocytes) 8.5 2.0-12.0 N [facility] NorthwestCevuusyKHYIJCOOYT5478-43-39 09:45:00 Test Item Value Reference Range Interpretation Comments Eosinophils (test code = 6.1 See_Comment H [A utomated message] The Eosinophils) system which ge nerated this result tra nsmitted reference range : <=4.0. The reference r eric was not used to int erpret this result as normal/abnormal . [facility] NorthwestLucbeeuKTQLEPOCKC6798-82-41 09:45:00 Test Item Value Reference Range Interpretation Comments Basophils (test code = 0.7 See_Comment N [Aut omated message] The Basophils) system which ge nerated this result tra nsmitted reference range : <=1.0. The reference r eric was not used to int erpret this result as normal/abnormal . [facility] NorthwestWiysocxCIMFLDTHDE7312-33-15 09:45:00 Test Item Value Reference Range Interpretation Comments Monocytes # (test code 0.7 See_Comment N [Aut omated message] The = Monocytes #) system which generated this result tra nsmitted reference range : <=0.8. The reference r eric was not used to int erpret this result as normal/abnormal . [facility] NorthwestKadjnueDRLVJKFKAD8471-59-82 09:45:00 Test Item Value Reference Range Interpretation Comments Lymphocytes # (test code = Lymphocytes 2.5 1.0-5.5 N #) [facility] NorthwestYcbnqkhPSCZXLPWEM7339-42-19 09:45:00 Test Item Value Reference Range Interpretation Comments Segs (test code = Segs) 54.6 45.0-75.0 N [facility] NorthwestLmwftcyMZFRACQGGO9095-60-63 09:45:00 Test Item Value Reference Range Interpretation Comments Lymphocytes (test code = Lymphocytes) 30.1 20.0-40.0 N [facility] LakeTaljpahVLWTJFVHV9986-98-46 09:45:00 Test Item Value Reference Range Interpretation Comments pO2 Art (test code = pO2 Art) 62 80-100 L [facility] LakeNisrtawZMUPMXMUX0658-39-51 09:45:00 Test Item Value Reference Range Interpretation Comments HCO3 Art (test code = HCO3 Art) 30 22-26 H [facility] LakeUfwajccFLSUIENXI1061-06-04 09:45:00 Test Item Value Reference Range Interpretation Comments pCO2 Art (test code = pCO2 Art) 54 35-45 H [facility] LakeQkwyfghUAYIIVSDW4737-44-45 09:45:00 Test Item Value Reference Range Interpretation Comments BE Art (test code = 4 See_Comment H [Automa thelma message] The BE Art) system which ge nerated this result transmit thelma reference range : <=2. The reference range was not used to interpr et this result as zana l/abnormal. [facility] CenterBdudqreSWOJXVJMX7153-52-19 09:45:00 Test Item Value Reference Range Interpretation Comments O2 Sat Art (test code = O2 Sat Art) 92.0 95.0-100.0 L [facility] LakePrcqwznQULTKWEYY3247-08-19 09:45:00 Test Item Value Reference Range Interpretation Comments pH Art (test code = pH Art) 7.36 7.35-7.45 N [facility] LakeLaztkuuVROJXJQOO9156-29-42 09:45:00 Test Item Value Reference Range Interpretation Comments Allens Art (test code = N/A (06/10/2012 N Allens Art) 04:45:00) [facility] LakeUovrjzaNYPUZHDPH1350-12-51 09:45:00 Test Item Value Reference Range Interpretation Comments Mode Art (test code = Mode Art) Room Air [facility] CenterTfonlgoQIEBOGVFJ8918-37-41 09:45:00 Test Item Value Reference Range Interpretation Comments Site Art (test code = A Line (06/10/2012 N Site Art) 04:45:00) [facility] CenterMzvwaeuSMEBQBPUX2796-60-03 09:45:00 Test Item Value Reference Range Interpretation Comments FiO2 Art (test code = FiO2 Art) 21.0 [facility] CenterAndthrhUSHBGMEZT6535-31-18 09:45:00 Test Item Value Reference Range Interpretation Comments AGAP (test code = AGAP) 8.1 10.0-20.0 L [facility] LakeJlajussYNLJCRZAL7699-75-20 09:45:00 Test Item Value Reference Range Interpretation Comments Chloride Lvl (test code = Chloride Lvl) 107 95-109 N [facility] CenterIrxaablGEOQLLTLL0289-54-99 09:45:00 Test Item Value Reference Range Interpretation Comments Calcium Lvl (test code = Calcium Lvl) 8.4 8.5-10.5 L [facility] CenterRsxuhteZARVQUTME4998-21-69 09:45:00 Test Item Value Reference Range Interpretation Comments CO2 (test code = CO2) 30 24-32 N [facility] LakeMdamgfnHDTHPAZMF6784-70-39 09:45:00 Test Item Value Reference Range Interpretation Comments BUN (test code = BUN) 8 7-22 N [facility] HospitalJvnkmwbVNZXOXZLH3045-39-16 09:45:00 Test Item Value Reference Range Interpretation Comments Creatinine Lvl (test code = Creatinine 0.7 0.5-1.4 N Lvl) [facility] LakeDobidaoCMICZIBGV9809-15-29 09:45:00 Test Item Value Reference Range Interpretation Comments Sodium Lvl (test code = Sodium Lvl) 141 135-145 N [facility] LakeAbzkptcBAHMGYAHZ0458-01-11 09:45:00 Test Item Value Reference Range Interpretation Comments Potassium Lvl (test code = Potassium 4.1 3.5-5.1 N Lvl) [facility] LakeQlpbzviSHXCLHPLC8992-79-55 09:45:00 Test Item Value Reference Range Interpretation Comments Glucose Lvl (test code = Glucose Lvl) 114 70-99 H [facility] NorthwestEsqqcvhRFSVNKUXFM0524-69-02 09:45:00 Test Item Value Reference Range Interpretation Comments MCH (test code = MCH) 28.2 pg 27.0-31.0 N [facility] NorthwestGqatdxsKWNIEZKNEG7291-74-93 09:45:00 Test Item Value Reference Range Interpretation Comments MPV (test code = MPV) 8.7 7.4-10.4 N [facility] NorthwestItmozmpCRWXEQVEDG1055-06-13 09:45:00 Test Item Value Reference Range Interpretation Comments RDW (test code = RDW) 13.7 11.5-14.5 N [facility] NorthwestTbzahyzCKUEVTFPGR8598-06-70 09:45:00 Test Item Value Reference Range Interpretation Comments MCHC (test code = MCHC) 33.8 32.0-36.0 N [facility] NorthwestNjfuggvVXWZQRDYAO0562-42-99 09:45:00 Test Item Value Reference Range Interpretation Comments Platelet (test code = Platelet) 200 133-450 N [facility] NorthwestPmlrbfaHBOIUOWTOX3890-93-79 09:45:00 Test Item Value Reference Range Interpretation Comments MCV (test code = MCV) 83.6 81.0-99.0 N [facility] NorthwestZcoimjgMWURFHWZDB7175-92-43 09:45:00 Test Item Value Reference Range Interpretation Comments Hgb (test code = Hgb) 10.4 12.0-16.0 L [facility] NorthwestMjnlszlMXGENBTNOF1707-58-60 09:45:00 Test Item Value Reference Range Interpretation Comments Hct (test code = Hct) 30.9 36.0-48.0 L [facility] NorthwestNxtazyxXADXZUGGAZ1912-24-39 09:45:00 Test Item Value Reference Range Interpretation Comments RBC (test code = RBC) 3.70 4.20-5.40 L [facility] NorthwestBkuzbwaMLJQNIDOOB0945-71-32 09:45:00 Test Item Value Reference Range Interpretation Comments WBC (test code = WBC) 8.4 3.7-10.4 N [facility] NorthwestLumvmoxNNGCVWXXQB6469-38-93 09:45:00 Test Item Value Reference Range Interpretation Comments Eosinophils # (test code 0.5 See_Comment N [A utomated message] The = Eosinophils #) system whic h generated this result tra nsmitted reference range : <=0.5. The reference r eric was not used to int erpret this result as normal/abnormal . [facility] NorthwestEfzodgfRHMTRIRYRS4057-55-81 09:45:00 Test Item Value Reference Range Interpretation Comments Basophils # (test code 0.1 See_Comment N [Aut omated message] The = Basophils #) system which generated this result tra nsmitted reference range : <=0.2. The reference r eric was not used to int erpret this result as normal/abnormal . [facility] NorthwestAfelcrbSUQZVMNFVN8968-99-80 09:45:00 Test Item Value Reference Range Interpretation Comments Segs-Bands # (test code = Segs-Bands #) 4.6 1.5-8.1 N [facility] NorthwestNfdtjvqSSLVGYJELW0532-78-55 09:45:00 Test Item Value Reference Range Interpretation Comments Monocytes (test code = Monocytes) 8.5 2.0-12.0 N [facility] NorthwestXhzdbklVCBGNGNJVJ7422-23-69 09:45:00 Test Item Value Reference Range Interpretation Comments Eosinophils (test code = 6.1 See_Comment H [A utomated message] The Eosinophils) system which ge nerated this result tra nsmitted reference range : <=4.0. The reference r eric was not used to int erpret this result as normal/abnormal . [facility] NorthwestJgzanbqDYEYGVIKKR7505-85-84 09:45:00 Test Item Value Reference Range Interpretation Comments Basophils (test code = 0.7 See_Comment N [Aut omated message] The Basophils) system which ge nerated this result tra nsmitted reference range : <=1.0. The reference r eric was not used to int erpret this result as normal/abnormal . [facility] NorthwestFapwvbvRCEPKBPWTT4704-01-26 09:45:00 Test Item Value Reference Range Interpretation Comments Monocytes # (test code 0.7 See_Comment N [Aut omated message] The = Monocytes #) system which generated this result tra nsmitted reference range : <=0.8. The reference r eric was not used to int erpret this result as normal/abnormal . [facility] NorthwestKahgvwhIFSRMEBOCP9755-88-85 09:45:00 Test Item Value Reference Range Interpretation Comments Lymphocytes # (test code = Lymphocytes 2.5 1.0-5.5 N #) [facility] NorthwestWbtrjziDKCAHVCBPV3014-51-29 09:45:00 Test Item Value Reference Range Interpretation Comments Segs (test code = Segs) 54.6 45.0-75.0 N [facility] NorthwestVxclcamYUWBARAYRI0786-28-84 09:45:00 Test Item Value Reference Range Interpretation Comments Lymphocytes (test code = Lymphocytes) 30.1 20.0-40.0 N [facility] LakeVicdmejNAVWBUCSZ8736-61-52 09:45:00 Test Item Value Reference Range Interpretation Comments pO2 Art (test code = pO2 Art) 62 80-100 L [facility] LakeCyeqzgwTQBOZQBVL3772-69-68 09:45:00 Test Item Value Reference Range Interpretation Comments HCO3 Art (test code = HCO3 Art) 30 22-26 H [facility] LakeExssexqMPSAJTYRN6868-87-16 09:45:00 Test Item Value Reference Range Interpretation Comments pCO2 Art (test code = pCO2 Art) 54 35-45 H [facility] LakeBhepqldYJDCZIJJH1446-85-00 09:45:00 Test Item Value Reference Range Interpretation Comments BE Art (test code = 4 See_Comment H [Automa thelma message] The BE Art) system which ge nerated this result transmit thelma reference range : <=2. The reference range was not used to interpr et this result as zana l/abnormal. [facility] LakeXkfhqgwSNQDMRTAQ5549-74-53 09:45:00 Test Item Value Reference Range Interpretation Comments O2 Sat Art (test code = O2 Sat Art) 92.0 95.0-100.0 L [facility] LakeNtkeasgNCSLVORNQ7887-09-11 09:45:00 Test Item Value Reference Range Interpretation Comments pH Art (test code = pH Art) 7.36 7.35-7.45 N [facility] LakeDlqdowvIFXAMTBTW5851-57-56 09:45:00 Test Item Value Reference Range Interpretation Comments Allens Art (test code = N/A (06/10/2012 N Allens Art) 04:45:00) [facility] LakeZrfemesAYNMYLSRN2208-33-35 09:45:00 Test Item Value Reference Range Interpretation Comments Mode Art (test code = Mode Art) Room Air [facility] LakeNdhwspoHHNASZMUH2681-73-36 09:45:00 Test Item Value Reference Range Interpretation Comments Site Art (test code = A Line (06/10/2012 N Site Art) 04:45:00) [facility] LakePycbpazISKWDVVXS3997-03-16 09:45:00 Test Item Value Reference Range Interpretation Comments FiO2 Art (test code = FiO2 Art) 21.0 [facility] LakeWxvuofsASLBLNWSG6046-73-07 09:45:00 Test Item Value Reference Range Interpretation Comments AGAP (test code = AGAP) 8.1 10.0-20.0 L [facility] LakeYsnnbooQQEZBIUZC3692-05-83 09:45:00 Test Item Value Reference Range Interpretation Comments Chloride Lvl (test code = Chloride Lvl) 107 95-109 N [facility] LakeFtqxkukQYXPRVRCA4039-05-87 09:45:00 Test Item Value Reference Range Interpretation Comments Calcium Lvl (test code = Calcium Lvl) 8.4 8.5-10.5 L [facility] LakeZlnmgmfMPPZTAUZK7460-12-37 09:45:00 Test Item Value Reference Range Interpretation Comments CO2 (test code = CO2) 30 24-32 N [facility] LakeTdpwcjkBEGBSZSUF2088-88-79 09:45:00 Test Item Value Reference Range Interpretation Comments BUN (test code = BUN) 8 7-22 N [facility] LakeDrqlnjvKLHYWSQLH3044-11-59 09:45:00 Test Item Value Reference Range Interpretation Comments Creatinine Lvl (test code = Creatinine 0.7 0.5-1.4 N Lvl) [facility] LakeVrtqkbrELOHVHSBF9815-41-45 09:45:00 Test Item Value Reference Range Interpretation Comments Sodium Lvl (test code = Sodium Lvl) 141 135-145 N [facility] LakeHdhhaffHPMUEBRET8126-45-03 09:45:00 Test Item Value Reference Range Interpretation Comments Potassium Lvl (test code = Potassium 4.1 3.5-5.1 N Lvl) [facility] LakeVufbdtkQYDTLSTGI8739-08-26 09:45:00 Test Item Value Reference Range Interpretation Comments Glucose Lvl (test code = Glucose Lvl) 114 70-99 H [facility]LpdbbcoACJYWDPSPT5653-54-56 09:45:00 Test Item Value Reference Range Interpretation Comments MCH (test code = MCH) 28.2 pg 27.0-31.0 N [facility] NorthwestUztvhweSZQMWQXVLA5124-23-49 09:45:00 Test Item Value Reference Range Interpretation Comments MPV (test code = MPV) 8.7 7.4-10.4 N [facility] NorthwestUsnnfgfFAWKCAGVQD6583-13-75 09:45:00 Test Item Value Reference Range Interpretation Comments RDW (test code = RDW) 13.7 11.5-14.5 N [facility] NorthwestVvudfrcVMYEEVGVHE8452-33-56 09:45:00 Test Item Value Reference Range Interpretation Comments MCHC (test code = MCHC) 33.8 32.0-36.0 N [facility] NorthwestWygfoexOYJCQOCLVH5718-92-23 09:45:00 Test Item Value Reference Range Interpretation Comments Platelet (test code = Platelet) 200 133-450 N [facility] NorthwestBcqisdbWREVUBMDIB9842-22-28 09:45:00 Test Item Value Reference Range Interpretation Comments MCV (test code = MCV) 83.6 81.0-99.0 N [facility] NorthwestPivbktuZCMQLVKBIW1759-05-85 09:45:00 Test Item Value Reference Range Interpretation Comments Hgb (test code = Hgb) 10.4 12.0-16.0 L [facility] NorthwestKgxokddZSVUZVGIXM2006-65-36 09:45:00 Test Item Value Reference Range Interpretation Comments Hct (test code = Hct) 30.9 36.0-48.0 L [facility] NorthwestSacohdsQSNXSPSIYL8173-42-57 09:45:00 Test Item Value Reference Range Interpretation Comments RBC (test code = RBC) 3.70 4.20-5.40 L [facility] NorthwestJvrfhmvQZCPQOMGBS3145-11-70 09:45:00 Test Item Value Reference Range Interpretation Comments WBC (test code = WBC) 8.4 3.7-10.4 N [facility] NorthwestXwpwitwSJASEUCMLC1014-15-50 09:45:00 Test Item Value Reference Range Interpretation Comments Eosinophils # (test code 0.5 See_Comment N [A utomated message] The = Eosinophils #) system whic h generated this result tra nsmitted reference range : <=0.5. The reference r eric was not used to int erpret this result as normal/abnormal . [facility] NorthwestKzncweyAJSJEWNETR8178-86-58 09:45:00 Test Item Value Reference Range Interpretation Comments Basophils # (test code 0.1 See_Comment N [Aut omated message] The = Basophils #) system which generated this result tra nsmitted reference range : <=0.2. The reference r eric was not used to int erpret this result as normal/abnormal . [facility] NorthwestBelipctSOQKRPHLRG8216-15-21 09:45:00 Test Item Value Reference Range Interpretation Comments Segs-Bands # (test code = Segs-Bands #) 4.6 1.5-8.1 N [facility] NorthwestSmgvjvuSCIEESTOQU1061-43-69 09:45:00 Test Item Value Reference Range Interpretation Comments Monocytes (test code = Monocytes) 8.5 2.0-12.0 N [facility] NorthwestMkffkvqHPPAWOAHYH6732-24-62 09:45:00 Test Item Value Reference Range Interpretation Comments Eosinophils (test code = 6.1 See_Comment H [A utomated message] The Eosinophils) system which ge nerated this result tra nsmitted reference range : <=4.0. The reference r eric was not used to int erpret this result as normal/abnormal . [facility] NorthwestTojxpohGCPXKNTYHJ1868-34-90 09:45:00 Test Item Value Reference Range Interpretation Comments Basophils (test code = 0.7 See_Comment N [Aut omated message] The Basophils) system which ge nerated this result tra nsmitted reference range : <=1.0. The reference r eric was not used to int erpret this result as normal/abnormal . [facility] NorthwestFvtyanjDYCBJBAATD6600-39-99 09:45:00 Test Item Value Reference Range Interpretation Comments Monocytes # (test code 0.7 See_Comment N [Aut omated message] The = Monocytes #) system which generated this result tra nsmitted reference range : <=0.8. The reference r eric was not used to int erpret this result as normal/abnormal . [facility] NorthwestLhimmubABHDLEMOUP9773-17-24 09:45:00 Test Item Value Reference Range Interpretation Comments Lymphocytes # (test code = Lymphocytes 2.5 1.0-5.5 N #) [facility] NorthwestHvjgdgzIXAGOGSNPG9436-00-04 09:45:00 Test Item Value Reference Range Interpretation Comments Segs (test code = Segs) 54.6 45.0-75.0 N [facility] NorthwestJbanbdeLQUIGKQNLM6023-77-00 09:45:00 Test Item Value Reference Range Interpretation Comments Lymphocytes (test code = Lymphocytes) 30.1 20.0-40.0 N [facility] GLUCOSE LOAKTAY7420-99-48 01:43:00 Test Item Value Reference Range Interpretation Comments Comment1 (test code = Comment1) Notify RN [facility] GLUCOSE YBWQKLT5420-63-56 01:43:00 Test Item Value Reference Range Interpretation Comments Comment1 (test code = Comment1) Notify RN [facility] GLUCOSE XJCRTUM5554-26-53 01:43:00 Test Item Value Reference Range Interpretation Comments Comment1 (test code = Comment1) Not[facility] RN [facility] LakeWgvrilbCOHJVOPSB1046-91-26 17:10:00 Test Item Value Reference Range Interpretation Comments BE Art (test code = -3 See_Comment L [Automa thelma message] The BE Art) system which ge nerated this result transmit thelma reference range : <=2. The reference range was not used to interpr et this result as zana l/abnormal. [facility] LakeYcxashjPMDGEAKDS4656-64-06 17:10:00 Test Item Value Reference Range Interpretation Comments HCO3 Art (test code = HCO3 Art) 24 22-26 N [facility] LakeGtzzbvjQGONIBGWJ6614-16-85 17:10:00 Test Item Value Reference Range Interpretation Comments pO2 Art (test code = pO2 Art) 219 80-100 H [facility] LakeQgpxdxzESQMSOAGW5062-08-27 17:10:00 Test Item Value Reference Range Interpretation Comments O2 Sat Art (test code = O2 Sat Art) 99.4 95.0-100.0 N [facility] LakeOkgearfDJAKJMBLU8868-30-90 17:10:00 Test Item Value Reference Range Interpretation Comments Site Art (test code = A Line (06/09/2012 N Site Art) 12:10:00) [facility] LakeMfwjgksLFTIUZZNB9001-14-36 17:10:00 Test Item Value Reference Range Interpretation Comments Mode Art (test code = SM (06/09/2012 N Mode Art) 12:10:00) [facility] LakePitjirfDGJXTSQNM7002-42-06 17:10:00 Test Item Value Reference Range Interpretation Comments Flow Art (test code = Flow Art) 7.0 [facility] LakeOqkobimKDKLWOIXE8119-26-88 17:10:00 Test Item Value Reference Range Interpretation Comments Allens Art (test code = N/A (06/09/2012 N Allens Art) 12:10:00) [facility] LakeDmukhzhWGKKQJJHA3768-65-04 17:10:00 Test Item Value Reference Range Interpretation Comments pCO2 Art (test code = pCO2 Art) 46 35-45 H [facility] LakeWjwwqxtIMUOEQVFP1701-02-07 17:10:00 Test Item Value Reference Range Interpretation Comments pH Art (test code = pH Art) 7.32 7.35-7.45 L [facility] LakeKvnwohlBRZNKBRKR5760-13-22 17:10:00 Test Item Value Reference Range Interpretation Comments BE Art (test code = -3 See_Comment L [Automa thelma message] The BE Art) system which ge nerated this result transmit thelma reference range : <=2. The reference range was not used to interpr et this result as zana l/abnormal. [facility] LakeNcnxtfhDMWDAXYBX1507-06-50 17:10:00 Test Item Value Reference Range Interpretation Comments HCO3 Art (test code = HCO3 Art) 24 22-26 N [facility] LakeQdrvtjeGQBZFMLDU9423-87-19 17:10:00 Test Item Value Reference Range Interpretation Comments pO2 Art (test code = pO2 Art) 219 80-100 H [facility] LakeQnxkvpuHLKMKKRCT8486-92-96 17:10:00 Test Item Value Reference Range Interpretation Comments O2 Sat Art (test code = O2 Sat Art) 99.4 95.0-100.0 N [facility] LakePxwacfwEHJGGUXVV4094-95-01 17:10:00 Test Item Value Reference Range Interpretation Comments Site Art (test code = A Line (06/09/2012 N Site Art) 12:10:00) [facility] LakeAikdwmsLDBURFTII1631-22-80 17:10:00 Test Item Value Reference Range Interpretation Comments Mode Art (test code = SM (06/09/2012 N Mode Art) 12:10:00) [facility] LakeZektrsfJZQKPANVX9771-94-87 17:10:00 Test Item Value Reference Range Interpretation Comments Flow Art (test code = Flow Art) 7.0 [facility] LakeRbqsoxuQPWUTRVQR1665-40-46 17:10:00 Test Item Value Reference Range Interpretation Comments Allens Art (test code = N/A (06/09/2012 N Allens Art) 12:10:00) [facility] LakePrmhuldIYKKCQXYX6082-69-43 17:10:00 Test Item Value Reference Range Interpretation Comments pCO2 Art (test code = pCO2 Art) 46 35-45 H [facility] CenterSojolftUCRUSVCCF2728-87-26 17:10:00 Test Item Value Reference Range Interpretation Comments pH Art (test code = pH Art) 7.32 7.35-7.45 L [facility] HospitalStugxttSNDIWOJXJ8680-96-59 17:10:00 Test Item Value Reference Range Interpretation Comments BE Art (test code = -3 See_Comment L [Automa thelma message] The BE Art) system which ge nerated this result transmit thelma reference range : <=2. The reference range was not used to interpr et this result as zana l/abnormal. [facility] CenterRodkittUVHAUQQVH7123-54-15 17:10:00 Test Item Value Reference Range Interpretation Comments HCO3 Art (test code = HCO3 Art) 24 22-26 N [facility] CenterKesbzchGMFRCEZBN5540-14-84 17:10:00 Test Item Value Reference Range Interpretation Comments pO2 Art (test code = pO2 Art) 219 80-100 H [facility] LakeOxodeurUNCQGPWQN3227-39-16 17:10:00 Test Item Value Reference Range Interpretation Comments O2 Sat Art (test code = O2 Sat Art) 99.4 95.0-100.0 N [facility] HospitalYldtvjnAPZDIAOAE4173-62-79 17:10:00 Test Item Value Reference Range Interpretation Comments Site Art (test code = A Line (06/09/2012 N Site Art) 12:10:00) [facility] LakeZptljboEVKOZVFSS5955-89-99 17:10:00 Test Item Value Reference Range Interpretation Comments Mode Art (test code = SM (06/09/2012 N Mode Art) 12:10:00) [facility] LakeAuqmsltTBAXMCSUZ5910-79-66 17:10:00 Test Item Value Reference Range Interpretation Comments Flow Art (test code = Flow Art) 7.0 [facility] LakeTjgpbwjGJIXXKLNE6621-05-80 17:10:00 Test Item Value Reference Range Interpretation Comments Allens Art (test code = N/A (06/09/2012 N Allens Art) 12:10:00) [facility] HospitalVzgihlkLNGRTDSBB6328-40-31 17:10:00 Test Item Value Reference Range Interpretation Comments pCO2 Art (test code = pCO2 Art) 46 35-45 H [facility] HospitalGifkikoWLXVOTRLY1662-88-32 17:10:00 Test Item Value Reference Range Interpretation Comments pH Art (test code = pH Art) 7.32 7.35-7.45 L [facility] HospitalBACTERIAL - TGQRULIG3342-47-27 17:00:00 Test Item Value Reference Range Interpretation Comments MRSA by PCR (test Negative 1(06/09/2012 N code = MRSA by PCR) 12:00:00) [facility] LakeKwusumsAUHAGKLUX8482-13-73 17:00:00 Test Item Value Reference Range Interpretation Comments Glucose Lvl (test code = Glucose Lvl) 148 70-99 H [facility] LakeBnpdhfjZGEXSEILR5772-70-90 17:00:00 Test Item Value Reference Range Interpretation Comments BUN (test code = BUN) 11 7-22 N [facility] LakeHqmslidLIKSLCNGZ7271-97-78 17:00:00 Test Item Value Reference Range Interpretation Comments Sodium Lvl (test code = Sodium Lvl) 143 135-145 N [facility] LakePuzevdhORULSDFEH3299-65-63 17:00:00 Test Item Value Reference Range Interpretation Comments Creatinine Lvl (test code = Creatinine 0.8 0.5-1.4 N Lvl) [facility] LakeAnzwfmlOTZOBTHOF0440-34-39 17:00:00 Test Item Value Reference Range Interpretation Comments Calcium Lvl (test code = Calcium Lvl) 8.2 8.5-10.5 L [facility] LakeHgnsjluXGSTWWYPT6646-05-46 17:00:00 Test Item Value Reference Range Interpretation Comments Chloride Lvl (test code = Chloride Lvl) 108 95-109 N [facility] LakeNipedvaOXSAEJWRE3946-53-78 17:00:00 Test Item Value Reference Range Interpretation Comments CO2 (test code = CO2) 29 24-32 N [facility] LakeKmmcdrjAUSZSXRCF4185-16-91 17:00:00 Test Item Value Reference Range Interpretation Comments Potassium Lvl (test code = Potassium 3.8 3.5-5.1 N Lvl) [facility] LakeOolettmPXNWMHAPD4506-75-94 17:00:00 Test Item Value Reference Range Interpretation Comments AGAP (test code = AGAP) 9.8 10.0-20.0 L [facility] HospitalCdtjgerNGNVRUUEGU8776-29-67 17:00:00 Test Item Value Reference Range Interpretation Comments Basophils # (test code 0.0 See_Comment N [Aut omated message] The = Basophils #) system which generated this result tra nsmitted reference range : <=0.2. The reference r eric was not used to int erpret this result as normal/abnormal . [facility] NorthwestVqjpnfiCMUPQHPOSB5302-19-50 17:00:00 Test Item Value Reference Range Interpretation Comments Eosinophils # (test code 0.4 See_Comment N [A utomated message] The = Eosinophils #) system [facility] h generated this result tra nsmitted reference range : <=0.5. The reference r eric was not used to int erpret this result as normal/abnormal . [facility] NorthwestOnabfwhISCUZPXLZA9290-35-29 17:00:00 Test Item Value Reference Range Interpretation Comments Monocytes # (test code 0.5 See_Comment N [Aut omated message] The = Monocytes #) system which generated this result tra nsmitted reference range : <=0.8. The reference r eric was not used to int erpret this result as normal/abnormal . [facility] NorthwestWpcuuqbZPALCFRVWB0825-34-14 17:00:00 Test Item Value Reference Range Interpretation Comments Lymphocytes # (test code = Lymphocytes 3.2 1.0-5.5 N #) [facility] NorthwestSxpljoqYAHGUOZEZL3085-67-99 17:00:00 Test Item Value Reference Range Interpretation Comments Segs-Bands # (test code = Segs-Bands #) 3.7 1.5-8.1 N [facility] NorthwestEbhifesESSOTPDFWR2217-37-80 17:00:00 Test Item Value Reference Range Interpretation Comments Basophils (test code = 0.5 See_Comment N [Aut omated message] The Basophils) system which ge nerated this result tra nsmitted reference range : <=1.0. The reference r eric was not used to int erpret this result as normal/abnormal . [facility] NorthwestPosoysaCOQVYLQWMS2108-96-74 17:00:00 Test Item Value Reference Range Interpretation Comments Eosinophils (test code = 5.0 See_Comment H [A utomated message] The Eosinophils) system which ge nerated this result tra nsmitted reference range : <=4.0. The reference r eric was not used to int erpret this result as normal/abnormal . [facility] NorthwestActtdkiQBCABZAZMP6247-37-85 17:00:00 Test Item Value Reference Range Interpretation Comments Monocytes (test code = Monocytes) 6.3 2.0-12.0 N [facility] NorthwestFqeiabgASJZVRXSHL8012-27-88 17:00:00 Test Item Value Reference Range Interpretation Comments Segs (test code = Segs) 47.0 45.0-75.0 N [facility] HospitalKfxagkrOZHREYDBSZ6243-76-37 17:00:00 Test Item Value Reference Range Interpretation Comments Lymphocytes (test code = Lymphocytes) 41.2 20.0-40.0 H [facility] NorthwestOquweviKPMQHRAZBG5974-11-12 17:00:00 Test Item Value Reference Range Interpretation Comments Platelet (test code = Platelet) 191 133-450 N [facility] NorthwestNjcneruUIGHIFQTQV6157-09-53 17:00:00 Test Item Value Reference Range Interpretation Comments RDW (test code = RDW) 13.9 11.5-14.5 N [facility] NorthwestEfbqnybJQYFJMIUJC5129-46-48 17:00:00 Test Item Value Reference Range Interpretation Comments MCHC (test code = MCHC) 33.2 32.0-36.0 N [facility] NorthwestKkxgqwuOGTLDQXMGL3173-13-03 17:00:00 Test Item Value Reference Range Interpretation Comments MPV (test code = MPV) 8.4 7.4-10.4 N [facility] NorthwestOmwgqinYSMFSAEUJP7925-27-68 17:00:00 Test Item Value Reference Range Interpretation Comments MCH (test code = MCH) 27.7 pg 27.0-31.0 N [facility] HospitalZevkvbuSFOZHHVYZS3375-84-79 17:00:00 Test Item Value Reference Range Interpretation Comments WBC (test code = WBC) 7.8 3.7-10.4 N [facility] NorthwestKhwryhbNGDQHVTQCL9268-85-63 17:00:00 Test Item Value Reference Range Interpretation Comments MCV (test code = MCV) 83.6 81.0-99.0 N [facility] NorthwestWoufwyxSKXTLWDDCA6666-28-54 17:00:00 Test Item Value Reference Range Interpretation Comments Hct (test code = Hct) 30.5 36.0-48.0 L [facility] HospitalClcjyjeVQGQTGAAAK9763-01-98 17:00:00 Test Item Value Reference Range Interpretation Comments Hgb (test code = Hgb) 10.1 12.0-16.0 L [facility] NorthwestMmwrxfmBMWLLINQRE4155-70-31 17:00:00 Test Item Value Reference Range Interpretation Comments RBC (test code = RBC) 3.65 4.20-5.40 L [facility] HospitalBACTERIAL - VRUCPKGL6744-14-99 17:00:00 Test Item Value Reference Range Interpretation Comments MRSA by PCR (test Negative 1(06/09/2012 N code = MRSA by PCR) 12:00:00) [facility] LakeXinjrvxFUWJQOXRM4222-10-29 17:00:00 Test Item Value Reference Range Interpretation Comments Glucose Lvl (test code = Glucose Lvl) 148 70-99 H [facility] LakeNjvdpnoAYCKBYHOO7796-92-10 17:00:00 Test Item Value Reference Range Interpretation Comments BUN (test code = BUN) 11 7-22 N [facility] LakePplbhfiCGQKBEKHO1160-22-57 17:00:00 Test Item Value Reference Range Interpretation Comments Sodium Lvl (test code = Sodium Lvl) 143 135-145 N [facility] LakePjedjblZIIQNWQAI6522-95-67 17:00:00 Test Item Value Reference Range Interpretation Comments Creatinine Lvl (test code = Creatinine 0.8 0.5-1.4 N Lvl) [facility] LakeIjosipoTVJYEYDEO5281-93-47 17:00:00 Test Item Value Reference Range Interpretation Comments Calcium Lvl (test code = Calcium Lvl) 8.2 8.5-10.5 L [facility] LakeZwzjhglSRSSNDGEE1275-95-63 17:00:00 Test Item Value Reference Range Interpretation Comments Chloride Lvl (test code = Chloride Lvl) 108 95-109 N [facility] LakeJjxsjfhPCITYQBAA1117-00-26 17:00:00 Test Item Value Reference Range Interpretation Comments CO2 (test code = CO2) 29 24-32 N [facility] LakeFbdoreqOVQEISMOA1243-82-92 17:00:00 Test Item Value Reference Range Interpretation Comments Potassium Lvl (test code = Potassium 3.8 3.5-5.1 N Lvl) [facility] LakeArdodflUFSYOHTQG4743-90-63 17:00:00 Test Item Value Reference Range Interpretation Comments AGAP (test code = AGAP) 9.8 10.0-20.0 L [facility] NorthwestQfwnajyBZRYSLZFAN9764-29-06 17:00:00 Test Item Value Reference Range Interpretation Comments Basophils # (test code 0.0 See_Comment N [Aut omated message] The = Basophils #) system which generated this result tra nsmitted reference range : <=0.2. The reference r eric was not used to int erpret this result as normal/abnormal . [facility] NorthwestIjbjikrLIZIIYNBBB4749-92-22 17:00:00 Test Item Value Reference Range Interpretation Comments Eosinophils # (test code 0.4 See_Comment N [A utomated message] The = Eosinophils #) system [facility] h generated this result tra nsmitted reference range : <=0.5. The reference r eric was not used to int erpret this result as normal/abnormal . [facility] NorthwestXqpnlupJSKFHVZNSW3237-29-13 17:00:00 Test Item Value Reference Range Interpretation Comments Monocytes # (test code 0.5 See_Comment N [Aut omated message] The = Monocytes #) system which generated this result tra nsmitted reference range : <=0.8. The reference r eric was not used to int erpret this result as normal/abnormal . [facility] NorthwestQiqyjicMRGAAPUWRU2396-88-40 17:00:00 Test Item Value Reference Range Interpretation Comments Lymphocytes # (test code = Lymphocytes 3.2 1.0-5.5 N #) [facility] NorthwestLbtuytrAZWDQOOKYF0633-18-67 17:00:00 Test Item Value Reference Range Interpretation Comments Segs-Bands # (test code = Segs-Bands #) 3.7 1.5-8.1 N [facility] NorthwestIgztoebUEPHUVVPQP1341-67-50 17:00:00 Test Item Value Reference Range Interpretation Comments Basophils (test code = 0.5 See_Comment N [Aut omated message] The Basophils) system which ge nerated this result tra nsmitted reference range : <=1.0. The reference r eric was not used to int erpret this result as normal/abnormal . [facility] NorthwestLrwzbilNPLYHCOPMD1278-70-05 17:00:00 Test Item Value Reference Range Interpretation Comments Eosinophils (test code = 5.0 See_Comment H [A utomated message] The Eosinophils) system which ge nerated this result tra nsmitted reference range : <=4.0. The reference r eric was not used to int erpret this result as normal/abnormal . [facility] NorthwestUnyrzitPAKEEXQONV4960-05-31 17:00:00 Test Item Value Reference Range Interpretation Comments Monocytes (test code = Monocytes) 6.3 2.0-12.0 N [facility] NorthwestLdxtpuwWBBZALPVVW3967-85-80 17:00:00 Test Item Value Reference Range Interpretation Comments Segs (test code = Segs) 47.0 45.0-75.0 N [facility] NorthwestVglqdfyOXSVFHWKLT4137-25-17 17:00:00 Test Item Value Reference Range Interpretation Comments Lymphocytes (test code = Lymphocytes) 41.2 20.0-40.0 H [facility] HospitalHkaligrGRKAIGJGWW7650-64-67 17:00:00 Test Item Value Reference Range Interpretation Comments Platelet (test code = Platelet) 191 133-450 N [facility] NorthwestLzbspmiIQUEAUDKCG1047-52-15 17:00:00 Test Item Value Reference Range Interpretation Comments RDW (test code = RDW) 13.9 11.5-14.5 N [facility] HospitalVmzfzwzTXHFTJJRXQ1200-25-73 17:00:00 Test Item Value Reference Range Interpretation Comments MCHC (test code = MCHC) 33.2 32.0-36.0 N [facility] HospitalVnotruhWEIHIJLMLB2069-11-23 17:00:00 Test Item Value Reference Range Interpretation Comments MPV (test code = MPV) 8.4 7.4-10.4 N [facility] NorthwestFohbgttGDGTZREVQX5592-87-51 17:00:00 Test Item Value Reference Range Interpretation Comments MCH (test code = MCH) 27.7 pg 27.0-31.0 N [facility] NorthwestFiwnaxiAYTATGOCXL0608-73-84 17:00:00 Test Item Value Reference Range Interpretation Comments WBC (test code = WBC) 7.8 3.7-10.4 N [facility] HospitalQnegsniMBOOXVHJLX5371-08-07 17:00:00 Test Item Value Reference Range Interpretation Comments MCV (test code = MCV) 83.6 81.0-99.0 N [facility] NorthwestEqkblnjOEZUTQOSOU1476-82-96 17:00:00 Test Item Value Reference Range Interpretation Comments Hct (test code = Hct) 30.5 36.0-48.0 L [facility] HospitalFbgbrdbWKZKKCQMHR1451-18-29 17:00:00 Test Item Value Reference Range Interpretation Comments Hgb (test code = Hgb) 10.1 12.0-16.0 L [facility] HospitalUekmthaXOULZDQJLT1720-78-87 17:00:00 Test Item Value Reference Range Interpretation Comments RBC (test code = RBC) 3.65 4.20-5.40 L [facility] HospitalBACTERIAL - UTEIXSXG4895-12-05 17:00:00 Test Item Value Reference Range Interpretation Comments MRSA by PCR (test Negative 1(06/09/2012 N code = MRSA by PCR) 12:00:00) [facility] HospitalOwegokvTVVRCFMJO2221-83-08 17:00:00 Test Item Value Reference Range Interpretation Comments Glucose Lvl (test code = Glucose Lvl) 148 70-99 H [facility] LakeZmekyubMWOHTTPJL9222-23-68 17:00:00 Test Item Value Reference Range Interpretation Comments BUN (test code = BUN) 11 7-22 N [facility] LakePbowuqmYFNCRGTMQ8370-49-26 17:00:00 Test Item Value Reference Range Interpretation Comments Sodium Lvl (test code = Sodium Lvl) 143 135-145 N [facility] LakeBvumxwiNAKLFSUZW5385-96-82 17:00:00 Test Item Value Reference Range Interpretation Comments Creatinine Lvl (test code = Creatinine 0.8 0.5-1.4 N Lvl) [facility] LakeGnlcqxgMDUSDDFYU7953-54-97 17:00:00 Test Item Value Reference Range Interpretation Comments Calcium Lvl (test code = Calcium Lvl) 8.2 8.5-10.5 L [facility] LakeQmclhtsZFMBVJPGK4272-77-97 17:00:00 Test Item Value Reference Range Interpretation Comments Chloride Lvl (test code = Chloride Lvl) 108 95-109 N [facility] LakeFclydduCZTOWHWWF0142-14-09 17:00:00 Test Item Value Reference Range Interpretation Comments CO2 (test code = CO2) 29 24-32 N [facility] LakeBzktrqpNTTMRBGAM4123-57-11 17:00:00 Test Item Value Reference Range Interpretation Comments Potassium Lvl (test code = Potassium 3.8 3.5-5.1 N Lvl) [facility] LakeUcowfenEDOJYSHNB0150-14-29 17:00:00 Test Item Value Reference Range Interpretation Comments AGAP (test code = AGAP) 9.8 10.0-20.0 L [facility] NorthwestUysrxbcLTSWSTONAR0414-41-66 17:00:00 Test Item Value Reference Range Interpretation Comments Basophils # (test code 0.0 See_Comment N [Aut omated message] The = Basophils #) system which generated this result tra nsmitted reference range : <=0.2. The reference r eric was not used to int erpret this result as normal/abnormal . [facility] NorthwestCuuvtopVZIQGFQRKV4954-47-44 17:00:00 Test Item Value Reference Range Interpretation Comments Eosinophils # (test code 0.4 See_Comment N [A utomated message] The = Eosinophils #) system whic h generated this result tra nsmitted reference range : <=0.5. The reference r eric was not used to int erpret this result as normal/abnormal . [facility] NorthwestKlhpnqxNGVLNTQEFH5093-37-39 17:00:00 Test Item Value Reference Range Interpretation Comments Monocytes # (test code 0.5 See_Comment N [Aut omated message] The = Monocytes #) system which generated this result tra nsmitted reference range : <=0.8. The reference r eric was not used to int erpret this result as normal/abnormal . [facility] NorthwestJkozkjxSXFBSMUWYV1209-59-90 17:00:00 Test Item Value Reference Range Interpretation Comments Lymphocytes # (test code = Lymphocytes 3.2 1.0-5.5 N #) [facility]wadbvxEVSQBYZMJQ7570-80-99 17:00:00 Test Item Value Reference Range Interpretation Comments Segs-Bands # (test code = Segs-Bands #) 3.7 1.5-8.1 N [facility] NorthwestNroqbvtOXGXTFFBYK7764-38-93 17:00:00 Test Item Value Reference Range Interpretation Comments Basophils (test code = 0.5 See_Comment N [Aut omated message] The Basophils) system which ge nerated this result tra nsmitted reference range : <=1.0. The reference r eric was not used to int erpret this result as normal/abnormal . [facility] NorthwestPnemdalSKERCOJVUG3641-41-49 17:00:00 Test Item Value Reference Range Interpretation Comments Eosinophils (test code = 5.0 See_Comment H [A utomated message] The Eosinophils) system which ge nerated this result tra nsmitted reference range : <=4.0. The reference r eric was not used to int erpret this result as normal/abnormal . [facility] NorthwestTggfkhfYFQMERHGCM3482-71-52 17:00:00 Test Item Value Reference Range Interpretation Comments Monocytes (test code = Monocytes) 6.3 2.0-12.0 N [facility] NorthwestUdaxlyvAWUNVAEIIC2664-71-31 17:00:00 Test Item Value Reference Range Interpretation Comments Segs (test code = Segs) 47.0 45.0-75.0 N [facility] NorthwestQyqzpefALVWCICXUM0372-16-50 17:00:00 Test Item Value Reference Range Interpretation Comments Lymphocytes (test code = Lymphocytes) 41.2 20.0-40.0 H [facility] NorthwestCyaqrirDJMJGKDXAL5889-28-56 17:00:00 Test Item Value Reference Range Interpretation Comments Platelet (test code = Platelet) 191 133-450 N [facility] NorthwestEgsfzzhNCVWWAFVVH8453-82-76 17:00:00 Test Item Value Reference Range Interpretation Comments RDW (test code = RDW) 13.9 11.5-14.5 N [facility] NorthwestRygllctKUKRCJTRSW3711-94-45 17:00:00 Test Item Value Reference Range Interpretation Comments MCHC (test code = MCHC) 33.2 32.0-36.0 N [facility] NorthwestFgcfngtSYNTNQDCEF1940-58-14 17:00:00 Test Item Value Reference Range Interpretation Comments MPV (test code = MPV) 8.4 7.4-10.4 N [facility] NorthwestJzkpoceJIKWBKOSXE6729-33-89 17:00:00 Test Item Value Reference Range Interpretation Comments MCH (test code = MCH) 27.7 pg 27.0-31.0 N [facility] NorthwestZqshaxbBWQURDIHTO1331-66-57 17:00:00 Test Item Value Reference Range Interpretation Comments WBC (test code = WBC) 7.8 3.7-10.4 N [facility] NorthwestNguhkqbLWGHBDIOHF2336-50-46 17:00:00 Test Item Value Reference Range Interpretation Comments MCV (test code = MCV) 83.6 81.0-99.0 N [facility] NorthwestFzoexgbQUXPRFWPBI3571-54-82 17:00:00 Test Item Value Reference Range Interpretation Comments Hct (test code = Hct) 30.5 36.0-48.0 L [facility] NorthwestOdebzedUESLHXNXQQ6774-69-97 17:00:00 Test Item Value Reference Range Interpretation Comments Hgb (test code = Hgb) 10.1 12.0-16.0 L [facility] NorthwestWqycvbpWZAKQNQKIP5954-77-29 17:00:00 Test Item Value Reference Range Interpretation Comments RBC (test code = RBC) 3.65 4.20-5.40 L [facility] [id number] 19:00:00 Test Item Value Reference Range Interpretation Comments ABO/Rh (test code = ABO/Rh) A POS [facility] [id number] 19:00:00 Test Item Value Reference Range Interpretation Comments Antibody Scrn (test Negative (05/31/2012 N code = Antibody Scrn) 14:00:00) [facility] [id number] 19:00:00 Test Item Value Reference Range Interpretation Comments ABO/Rh (test code = ABO/Rh) A POS [facility] [id number] 19:00:00 Test Item Value Reference Range Interpretation Comments Antibody Scrn (test Negative (05/31/2012 N code = Antibody Scrn) 14:00:00) [facility] [id number] 19:00:00 Test Item Value Reference Range Interpretation Comments ABO/Rh (test code = ABO/Rh) A POS [facility] [id number] 19:00:00 Test Item Value Reference Range Interpretation Comments Antibody Scrn (test Negative (05/31/2012 N code = Antibody Scrn) 14:00:00) [facility] JqhpswbKYPGPRHVC6871-47-66 18:50:00 Test Item Value Reference Range Interpretation Comments AST (test code = AST) 14 See_Comment N [Auto mated message] The system which ge nerated this result transmit thelma reference range : <=37. The reference range was not used to interpr et this result as azna l/abnormal. [facility]PjpkgpaVJORPPETE8262-48-54 18:50:00 Test Item Value Reference Range Interpretation Comments AGAP (test code = AGAP) 10.1 10.0-20.0 N [facility] QcodgplPVGSBXAAV5753-95-56 18:50:00 Test Item Value Reference Range Interpretation Comments Glucose Lvl (test code = Glucose Lvl) 208 70-99 H [facility] CenterJxtzdqsCGJJNGQFK8976-86-85 18:50:00 Test Item Value Reference Range Interpretation Comments BUN (test code = BUN) 17 7-22 N [facility] VodsqzjTXIZQDVDE2399-16-48 18:50:00 Test Item Value Reference Range Interpretation Comments Chloride Lvl (test code = Chloride Lvl) 102 95-109 N [facility] PzpvrbhOUUCTABIA3478-00-63 18:50:00 Test Item Value Reference Range Interpretation Comments Potassium Lvl (test code = Potassium 4.1 3.5-5.1 N Lvl) [facility] CenterGmcgelbXANGZEWIB0373-41-74 18:50:00 Test Item Value Reference Range Interpretation Comments Creatinine Lvl (test code = Creatinine 0.9 0.5-1.4 N Lvl) [facility] CenterOkxdqgmWXMGXXSUI1674-23-63 18:50:00 Test Item Value Reference Range Interpretation Comments Sodium Lvl (test code = Sodium Lvl) 137 135-145 N [facility] LakeBdyevciGIOJRWBIM7350-35-50 18:50:00 Test Item Value Reference Range Interpretation Comments Calcium Lvl (test code = Calcium Lvl) 9.1 8.5-10.5 N [facility] LakeFyqxtzoMJUBJRTBN4151-53-72 18:50:00 Test Item Value Reference Range Interpretation Comments CO2 (test code = CO2) 29 24-32 N [facility] NorthwestFujhimjHIWLBOIOBP5251-58-31 18:50:00 Test Item Value Reference Range Interpretation Comments PTT (test code = PTT) 30.9 s 22.9-35.8 N [facility] NorthwestGrdxbroTMGEIGXJII2748-21-64 18:50:00 Test Item Value Reference Range Interpretation Comments PT (test code = PT) 13.0 s 12.0-14.7 N [facility] NorthwestKjinnalATUZCRYOWY7766-99-79 18:50:00 Test Item Value Reference Range Interpretation Comments INR (test code = INR) 0.96 0.85-1.17 N [facility] LakeAjwzevpEWXNZELHE4889-37-83 18:50:00 Test Item Value Reference Range Interpretation Comments AST (test code = AST) 14 See_Comment N [Auto mated message] The system which ge nerated this result transmit thelma reference range : <=37. The reference range was not used to interpr et this result as zana l/abnormal. [facility] LakeFfzvbnsAIHAZLTLT5733-05-13 18:50:00 Test Item Value Reference Range Interpretation Comments AGAP (test code = AGAP) 10.1 10.0-20.0 N [facility] LakeZebmsueUDZAGPCWA5495-85-96 18:50:00 Test Item Value Reference Range Interpretation Comments Glucose Lvl (test code = Glucose Lvl) 208 70-99 H [facility] LakeFnelsuzNQPOXWREQ3894-58-64 18:50:00 Test Item Value Reference Range Interpretation Comments BUN (test code = BUN) 17 7-22 N [facility] LakeXttbdavJXHBQFASL0443-75-41 18:50:00 Test Item Value Reference Range Interpretation Comments Chloride Lvl (test code = Chloride Lvl) 102 95-109 N [facility] LakeFddhgwvTMOQPFSXC2447-53-86 18:50:00 Test Item Value Reference Range Interpretation Comments Potassium Lvl (test code = Potassium 4.1 3.5-5.1 N Lvl) [facility] LakeTrxnswhJDOOUFPDV4647-50-07 18:50:00 Test Item Value Reference Range Interpretation Comments Creatinine Lvl (test code = Creatinine 0.9 0.5-1.4 N Lvl) [facility] LakeAmhpprwBOLRZYFEX8050-09-36 18:50:00 Test Item Value Reference Range Interpretation Comments Sodium Lvl (test code = Sodium Lvl) 137 135-145 N [facility] LakeApqkcejCJCUGZREW5827-99-23 18:50:00 Test Item Value Reference Range Interpretation Comments Calcium Lvl (test code = Calcium Lvl) 9.1 8.5-10.5 N [facility] LakeHrnwhyfWGKNBBVZT0612-40-42 18:50:00 Test Item Value Reference Range Interpretation Comments CO2 (test code = CO2) 29 24-32 N [facility] NorthwestDjkntrhFJEEXADCQA5052-61-22 18:50:00 Test Item Value Reference Range Interpretation Comments PTT (test code = PTT) 30.9 s 22.9-35.8 N [facility] NorthwestBffkgmcGPOXYBAEAU0399-27-78 18:50:00 Test Item Value Reference Range Interpretation Comments PT (test code = PT) 13.0 s 12.0-14.7 N [facility] NorthwestXhxzlbgNADHZFLAKG5251-57-13 18:50:00 Test Item Value Reference Range Interpretation Comments INR (test code = INR) 0.96 0.85-1.17 N [facility] LakeTmhwqwxUUVUSTTFC3490-29-76 18:50:00 Test Item Value Reference Range Interpretation Comments AST (test code = AST) 14 See_Comment N [Auto mated message] The system which ge nerated this result transmit thelma reference range : <=37. The reference range was not used to interpr et this result as zana l/abnormal. [facility] LakeFbsxmfwRMYSYGFQT0007-16-06 18:50:00 Test Item Value Reference Range Interpretation Comments AGAP (test code = AGAP) 10.1 10.0-20.0 N [facility] LakeFrzwfqbUCZXNZWJT2689-51-96 18:50:00 Test Item Value Reference Range Interpretation Comments Glucose Lvl (test code = Glucose Lvl) 208 70-99 H [facility] LakeIchtpztJJYKVFVHA2995-42-35 18:50:00 Test Item Value Reference Range Interpretation Comments BUN (test code = BUN) 17 7-22 N [facility] LakeYfnemyjCERVPBQHI8312-84-61 18:50:00 Test Item Value Reference Range Interpretation Comments Chloride Lvl (test code = Chloride Lvl) 102 95-109 N [facility] LakeEcxmjqpEOVSPNGWS5198-50-55 18:50:00 Test Item Value Reference Range Interpretation Comments Potassium Lvl (test code = Potassium 4.1 3.5-5.1 N Lvl) [facility] LakeSqohojiANXILCAWB2851-11-76 18:50:00 Test Item Value Reference Range Interpretation Comments Creatinine Lvl (test code = Creatinine 0.9 0.5-1.4 N Lvl) [facility] LakeKzqrdlxEDBIYGXQH0430-54-64 18:50:00 Test Item Value Reference Range Interpretation Comments Sodium Lvl (test code = Sodium Lvl) 137 135-145 N [facility] LakeKvscrpyJNRJWGNIV3713-31-37 18:50:00 Test Item Value Reference Range Interpretation Comments Calcium Lvl (test code = Calcium Lvl) 9.1 8.5-10.5 N [facility] LakeQfbbcaeFBOIKBGHC0530-60-22 18:50:00 Test Item Value Reference Range Interpretation Comments CO2 (test code = CO2) 29 24-32 N [facility] NorthwestGnwxwpvVGLMRARKDD8919-39-16 18:50:00 Test Item Value Reference Range Interpretation Comments PTT (test code = PTT) 30.9 s 22.9-35.8 N [facility] NorthwestQfokcdcBJQXTNGGYS2104-41-60 18:50:00 Test Item Value Reference Range Interpretation Comments PT (test code = PT) 13.0 s 12.0-14.7 N [facility] NorthwestSthbmctFLZHAXACXF0129-18-04 18:50:00 Test Item Value Reference Range Interpretation Comments INR (test code = INR) 0.96 0.85-1.17 N [facility]
[2023-07-06] MEDS ORDERED: METHYLPREDNISOLONE 125 MG INJ ONE (18:02)
[2023-07-06] MEDS ORDERED: NICOTINE 21 MG/PAT TD ONE (18:03)
--- NOTE | 2023-07-06 18:39 | RAD REPORT ---
EXAM DESCRIPTION: Leah Single View07/06/2023 6:28 pm CLINICAL HISTORY: Cough COMPARISON: February 2002 FINDINGS: Bilateral calcified lung granuloma is unchanged The lungs appear clear of acute infiltrate. The heart is normal size IMPRESSION: No acute abnormalities displayed
[2023-07-06] MEDS ORDERED: NA CHLORIDE 0.9% 1,000 ML ONE (19:03)
[2023-07-06 19:18] LABS: Potassium 4.6 mEq/L (3.5-5.1)
[2023-07-06] MEDS ORDERED: D10W 250 ML IV ONE (20:03)
--- NOTE | 2023-07-06 20:08 | EDPHYS ---
Physician Documentation [facility] Name: Mariah Canales Age: 78 yrs Sex: Female : 1945 Arrival Date: 07/06/2023 Time: 17:34 Bed 8 Private MD: ED Physician Jem Santos HPI: 07/06 18:50 This 78 yrs old Female presents to ER via EMS with complaints of Low Blood Sugar. rn 18:50 The patient or guardian reports generalized weakness, hypoglycemia. Onset: The rn symptoms/episode began/occurred today. Current symptoms: In the emergency department the patient's symptoms have improved. The patient has experienced similar episodes in the past. EMS reports called to [facility] for low blood sugar. Diagnosed with COVID today. Reports cough and generalized malaise with anorexia. Takes glimepiride and has had problems with hypoglycemia before. Glucose was in the 20s and refused IV at [facility] so 911 called. EMS started IV and administered 100 mL of D10. Glucose in the 200s now.. Historical: - Allergies: 17:41 No Known Allergies; db - PMHx: 17:41 Diabetes mellitus; db - Immunization history:: Client reports receiving the 2nd dose of the Covid vaccine. - Social history:: Smoking status: Patient reports the use of cigarette tobacco products, smokes one-half pack cigarettes per day. - Family history:: not pertinent. - Hospitalizations: : No recent hospitalization is reported. ROS: 18:50 Constitutional: Negative for fever, chills, and weight loss, Cardiovascular: Negative rn for chest pain, palpitations, and edema, Respiratory: Positive for cough Abdomen/GI: Negative for abdominal pain, nausea, vomiting, diarrhea, and constipation, Back: Negative for injury and pain, MS/Extremity: Negative for injury and deformity, Skin: Negative for injury, rash, and discoloration, Neuro: Positive for generalized weakness and malaise Exam: 18:50 Constitutional: This is a well developed, well nourished patient who is awake, alert, rn and in no acute distress. Head/Face: Normocephalic, atraumatic. ENT: No stridor, dry mucous membranes Cardiovascular: Regular rate and rhythm. No pulse deficits. Respiratory: No increased work of breathing, no retractions or nasal flaring. Abdomen/GI: Soft, non-tender Skin: Warm, dry MS/ Extremity: Pulses equal, no cyanosis. Neuro: Awake and alert, GCS 15, oriented to person, place, time, and situation. Vital Signs: 17:30 BP 112 / 53; Pulse 88; Resp 18; Temp 98.4(O); Pulse Ox 97% on R/A; Weight 44.91 kg; db Height 5 ft. 0 in. ; 18:27 BP 134 / 51; Pulse 68; Resp 18; Pulse Ox 97% ; iw 18:53 BP 132 / 77; Pulse 76; Resp 16; Pulse Ox 96% on R/A; db 23:09 nw1 23:29 BP 138 / 59; Pulse 81; Resp 18; Pulse Ox 95% on R/A; Pain 0/10; la4 17:30 Body Mass Index 19.33 (44.91 kg, 152.4 cm) db 23:29 Pain Scale: Adult la4 23:09 CB nw1 Param Coma Score: 23:29 Eye Response: spontaneous(4). Motor Response: obeys commands(6). Verbal Response: la4 oriented(5). Total: 15. MDM: 17:38 Patient medically screened. rn 20:06 Differential diagnosis: hypoglycemic episode, COVID, dehydration, hypoglycemia. Data rn reviewed: vital signs, nurses notes, lab test result(s), radiologic studies, plain films, and as a result, I will admit patient. Consideration of Admission/Observation Patient was admitted/placed on observation. Escalation of care including admission/observation considered. Independent interpretation of the following test(s) in the Emergency Department EKG: See my EKG interpretation above X-Ray: My interpretation is Chest x-ray images negative for pneumonia or pneumothorax per my interpretation. Care significantly affected by the following chronic conditions: Diabetes, Hypertension. Counseling: I had a detailed discussion with the patient and/or guardian regarding the historical points, exam findings, and any diagnostic results supporting the discharge/admit diagnosis, lab results, radiology results, the need for further work-up and treatment in the hospital. ED course: Patient with repeated hypoglycemic episodes despite D10 by EMS, eating here, steroid administration, had to start infusion of D5 as well as another D10 bolus and will admit to hospitalist service. Patient takes glimepiride and has not been eating normal due to COVID infection.. 07/06 17:39 Order name: CBC with Diff; Complete Time: 18:43 rn 07/06 17:39 Order name: Basic Metabolic Panel; Complete Time: 19:19 rn 07/06 17:59 Order name: Glucose, Ancillary Testing; Complete Time: 18:43 EDMS 07/06 20:00 Order name: Glucose, Ancillary Testing; Complete Time: 20:03 EDMS 07/06 20:40 Order name: Urinalysis w/ reflexes EDMS 07/06 20:40 Order name: Comprehensive Metabolic Panel EDMS 07/06 20:40 Order name: Comprehensive Metabolic Panel EDMS 07/06 21:28 Order name: Glucose, Ancillary Testing EDMS 07/06 22:19 Order name: Glucose, Ancillary Testing EDMS 07/06 23:20 Order name: Glucose, Ancillary Testing EDMS 07/06 17:39 Order name: XRAY Chest (1 view); Complete Time: 18:43 rn 07/06 17:39 Order name: IV Start; Complete Time: 17:45 rn 07/06 17:39 Order name: Glucose Level; Complete Time: 17:55 rn 07/06 17:57 Order name: Labs - recollect needed: recollect green top; Complete Time: 19:00 bd 07/06 19:33 Order name: Glucose Level; Complete Time: 19:54 rn Administered Medications: 17:55 Drug: MethylPrednisoLONE IVP 125 mg IVP once Route: IVP; Site: left antecubital; db 17:55 Drug: Nicoderm CQ Transdermal Patch 14 mg/24 hr 1 patches Transdermal once {Note: LEFT db ARM.} Route: Transdermal; Site: affected area; 18:54 Drug: NS 0.9% IV 1000 ml IV at 1000 ml once Route: IV; Rate: 1000 ml; Site: left db antecubital; 19:56 Drug: D10 in Water IVP 250 ml IVP once Route: IVP; Rate: bolus; Infused Over: 10 mins; la4 Site: left antecubital; 20:50 Follow up: Response: No adverse reaction la4 20:18 Drug: Glucagon IVP 1 mg IVP once Route: IVP; Rate: bolus; Infused Over: 1 mins; Site: la4 left antecubital; 20:43 Drug: D5-NS IV 1000 ml IV at 125 ml/hr continuous Route: IV; Rate: 125 ml/hr; Site: la4 left wrist; Delivery: Primary tubing; Point of Care Testing: Blood Glucose: 17:47 Blood Glucose: 115 mg/dL; db Ranges: Critical Glucose Levels:Adult <50 mg/dl or >400 mg/dl <40 mg/dl or >180 mg/dl Disposition Summary: 07/06/23 20:08 Hospitalization Ordered Notes: Hospitalization Status: Observation rn Provider: Abhi Perez rn Location: Telemetry/MedSurg (observation) rn Condition: Stable rn Problem: new rn Symptoms: have improved rn Bed/Room Type: Standard rn Room Assignment: 418(07/06/23 22:21) mw Diagnosis - Hypoglycemia, unspecified rn - SARS-associated coronavirus as the cause of diseases classified elsewhere rn Forms: - Medication Reconciliation Form rn - SBAR form rn - Leadership Thank You Letter rn Signatures: Dispatcher [employer] Fadia Basurto Martha RN RN Jem Colunga MD MD rn Benton, Danielle RN Noé Rowan RN RN la4 Corrections: (The following items were deleted from the chart) 22: 20:08 rn aspen
--- NOTE | 2023-07-06 20:08 | ER ---
Nurse's Notes [facility] Name: Mariah Canales Age: 78 yrs Sex: Female : 1945 Arrival Date: 07/06/2023 Time: 17:34 Bed 8 Private MD: Diagnosis: Hypoglycemia, unspecified;SARS-associated coronavirus as the cause of diseases classified elsewhere Presentation: 07/06 17:30 Chief complaint: EMS states: PATIENT FROM [facility] WITH BG 28 AOX2. CALL FOR LOW db BLOOD SURGAR. EMS GAVE D10 NOW GLUCOSE IS 222. NOW AOX 3. Coronavirus screen: Vaccine status: Client denies travel out of the [place] in the last 14 days. At this time, the client does not indicate any symptoms associated with coronavirus-19. Ebola Screen: Patient negative for fever greater than or equal to 101.5 degrees Fahrenheit, and additional compatible Ebola Virus Disease symptoms Patient denies exposure to infectious person. Patient denies travel to an Ebola-affected area in the 21 days before illness onset. No symptoms or risks identified at this time. 17:30 Method Of Arrival: EMS db 17:30 Initial Sepsis Screen: Does the patient meet any 2 criteria? No. Patient's initial db sepsis screen is negative. Does the patient have a suspected source of infection? No. Patient's initial sepsis screen is negative. Risk Assessment: Do you want to hurt yourself or someone else? Patient reports no desire to harm self or others. Onset of symptoms was July 06, 2023. Care prior to arrival: Medication(s) given: D10 IV initiated. 22 GA, in the left antecubital area. 17:30 Acuity: AASHISH 2 db Triage Assessment: 17:41 General: Appears in no apparent distress. comfortable, Behavior is calm, cooperative. db Pain: Denies pain. Neuro: Level of Consciousness is awake, alert, obeys commands, Oriented to person, place, time, situation, Speech is normal. Respiratory: Airway is patent Respiratory effort is even, unlabored, Respiratory pattern is regular, symmetrical. Musculoskeletal: Reports LEFT SIDE WEAKNESS FROM PREVIOUS STROKE. Historical: - Allergies: 17:41 No Known Allergies; db - PMHx: 17:41 Diabetes mellitus; db - Immunization history:: Client reports receiving the 2nd dose of the Covid vaccine. - Social history:: Smoking status: Patient reports the use of cigarette tobacco products, smokes one-half pack cigarettes per day. - Family history:: not pertinent. - Hospitalizations: : No recent hospitalization is reported. Screenin:47 [facility] ED Fall Risk Assessment (Adult) History of falling in the last 3 months, db including since admission No falls in past 3 months (0 pts) Confusion or Disorientation No (0 pts) Intoxicated or Sedated No (0 pts) Impaired Gait Yes (1 pt) Mobility Assist Device Used Yes (1 pt) Altered Elimination No (0 pt) Score/Fall Risk Level 0 - 2 = Low Risk Oriented to surroundings, Maintained a safe environment. Abuse screen: Denies threats or abuse. Denies injuries from another. Nutritional screening: No deficits noted. Tuberculosis screening: No symptoms or risk factors identified. Assessment: 17:43 Reassessment: SEE TRIAGE FOR INITIAL ASSESSMENT. db 18:00 Reassessment: Patient appears in no apparent distress at this time. Patient and/or db family updated on plan of care and expected duration. Pain level reassessed. Patient is alert, oriented x 3, equal unlabored respirations, skin warm/dry/pink. 19:56 General: Appears in no apparent distress. Behavior is calm, cooperative, appropriate la4 for age. Pain: Complains of pain in lumbar area, left low back and right low back Pain does not radiate. Pain currently is 8 out of 10 on a pain scale. Quality of pain is described as aching. Neuro: No deficits noted. Diaz Agitation-Sedation Scale (RASS): 0 - Alert and Calm. Vital Signs: 17:30 BP 112 / 53; Pulse 88; Resp 18; Temp 98.4(O); Pulse Ox 97% on R/A; Weight 44.91 kg; db Height 5 ft. 0 in. ; 18:27 BP 134 / 51; Pulse 68; Resp 18; Pulse Ox 97% ; iw 18:53 BP 132 / 77; Pulse 76; Resp 16; Pulse Ox 96% on R/A; db 23:09 nw1 23:29 BP 138 / 59; Pulse 81; Resp 18; Pulse Ox 95% on R/A; Pain 0/10; la4 17:30 Body Mass Index 19.33 (44.91 kg, 152.4 cm) db 23:29 Pain Scale: Adult la4 23:09 CB nw1 Param Coma Score: 23:29 Eye Response: spontaneous(4). Motor Response: obeys commands(6). Verbal Response: la4 oriented(5). Total: 15. ED Course: 17:37 Patient arrived in ED. db 17:38 Jem Santos MD is Attending Physician. rn 17:39 Anila Farmer, RN is Primary Nurse. db 17:41 Triage completed. db 17:41 Arm band placed on Patient placed in an exam room. db 17:45 Basic Metabolic Panel Sent. iw 17:45 CBC with Diff Sent. iw 17:45 Maintain EMS IV. Dressing intact. Good blood return noted. Site clean \T\ dry. Gauge \T\ iw site: 22LAC. 18:27 Patient has correct armband on for positive identification. Bed in low position. Call iw light in reach. Side rails up X2. Provided Education on: na. Client placed on continuous cardiac and pulse oximetry monitoring. NIBP monitoring applied. patient monitor on. Door closed. Noise minimized. Lights dimmed. Warm blanket given. 18:30 XRAY Chest (1 view) In Process Unspecified. EDMS 19:[address] Santos notified and orders placed. la4 20:00 Inserted saline lock: 20 gauge in right wrist, using aseptic technique. la4 20:07 Abhi Perez MD is Hospitalizing Provider. rn 21:19 accucheck 326, IVF decreased to 50ml/hr. la4 22:09 accucheck 381, IVF remain at 50ml/hr. la4 23:29 No provider procedures requiring assistance completed. la4 23:29 Patient admitted, IV remains in place. la4 Administered Medications: 17:55 Drug: MethylPrednisoLONE IVP 125 mg IVP once Route: IVP; Site: left antecubital; db 17:55 Drug: Nicoderm CQ Transdermal Patch 14 mg/24 hr 1 patches Transdermal once {Note: LEFT db ARM.} Route: Transdermal; Site: affected area; 18:54 Drug: NS 0.9% IV 1000 ml IV at 1000 ml once Route: IV; Rate: 1000 ml; Site: left db antecubital; 19:56 Drug: D10 in Water IVP 250 ml IVP once Route: IVP; Rate: bolus; Infused Over: 10 mins; la4 Site: left antecubital; 20:50 Follow up: Response: No adverse reaction la4 20:18 Drug: Glucagon IVP 1 mg IVP once Route: IVP; Rate: bolus; Infused Over: 1 mins; Site: la4 left antecubital; 20:43 Drug: D5-NS IV 1000 ml IV at 125 ml/hr continuous Route: IV; Rate: 125 ml/hr; Site: la4 left wrist; Delivery: Primary tubing; Medication: 23:29 VIS not applicable for this client. la4 Point of Care Testing: Blood Glucose: 17:47 Blood Glucose: 115 mg/dL; db Ranges: Outcome: 20:08 Decision to Hospitalize by Provider. rn 23:28 Admitted to Med/surg accompanied by nurse, via stretcher, Report called to Iesha marcelo 23:28 Condition: improved 23:56 Patient left the ED. la4 Signatures: Dispatcher [employer] EDTeetee Fung RN RN iw Nieto, Roman, MD MD rn Benton, Danielle, RN RN db Andrews, La'Rea, RN RN la4 Williams, Nicole, RN RN nw1 Corrections: (The following items were deleted from the chart) 19:01 19:01 Reassessment: Patient appears in no apparent distress at this time. Patient db and/or family updated on plan of care and expected duration. Pain level reassessed. Patient is alert, oriented x 3, equal unlabored respirations, skin warm/dry/pink. db 21:21 21:[address] Santos notified and orders placed. la4 la4 22:10 21:19 accucheck 326 la4 la4
[2023-07-06] MEDS ORDERED: GLUCAGON 1 MG/VIAL ONE (20:27)
--- NOTE | 2023-07-06 20:35 | P.HP ---
Certification for Inpatient Patient admitted to: Observation With expected LOS: <2 Midnights Practitioner: I am a practitioner with admitting privileges, knowledge of patient current condition, hospital course, and medical plan of care. Services: Services provided to patient in accordance with Admission requirements found in Title 42 Section 412.3 of the Code of Federal Regulations Patient History Date of Service: 07/07/23 Reason for admission: Weakness, recurrent hypoglycemia History of Present Illness: 78-year-old female patient with medical history significant for hypertension, hyperlipidemia, diabetes type 2, evaluated for episode of weakness. She was found to have COVID-19 disease recently and has been on appropriate care. She is on long-acting oral hypoglycemic drug of glimepiride and she was found to have a low blood sugar with a glucose of 75. She was found to be significantly weak and altered so she was admitted for observation and dextrose infusion was s tarted for hypoglycemia. At the time of encounter patient denied headache, fever, chills, rigor, nausea, vomiting, cough, shortness of breath. She denies dizzy spells. She denies changes in vision. Allergies No Known Allergies Allergy (Verified 03/19/21 05:13) Home medications list reviewed: Yes Home Medications: Atorvastatin Calcium 40 mg PO BEDTIME 03/19/21 Buspirone HCl [Buspar] 30 mg PO BID 03/19/21 Clopidogrel Bisulfate [Plavix*] 75 mg PO DAILY 03/19/21 Escitalopram Oxalate [Lexapro] 10 mg PO DAILY 03/19/21 Acetaminophen [Tylenol Extra Strength] 500 mg PO TIDP PRN 02/12/23 Furosemide 20 mg PO DAILY 02/12/23 Sennosides/Docusate Sodium [Gnp Senna Plus 8.6-50 mg Tab] 1 each PO BIDP PRN 02/12/23 Tramadol HCl [Ultram] 50 mg PO Q6HP PRN 02/12/23 dronabinoL [Marinol] 5 mg PO Q8HP PRN 02/12/23 polyethylene glycoL 3350 [Polyethylene Glycol 3350] 17 gm PO Q4HP PRN 02/12/23 Cholecalciferol (Vitamin D3) [Vitamin D3] 5,000 unit PO EVERY 7TH DAY 07/07/23 Glimepiride 1 mg PO DAILY 07/07/23 Metformin HCl 500 mg PO BID 07/07/23 Molnupiravir [Molnupiravir (Eua)] 200 mg PO BID 07/07/23 Ondansetron [Zofran] 4 mg PO Q8HP PRN 07/07/23 Sitagliptin Phosphate [Januvia] 25 mg PO DAILY 07/07/23 - Past Medical/Surgical History Diabetic: Yes -: Depression -: Diabetes Type 2 -: Hypertension -: CVA -: Presumed COPD -: neck surgery - Social History Alcohol use: No CD- Drugs: No Caffeine use: No Review of Systems General: Weakness, Malaise Eyes: Unremarkable ENT: Unremarkable Respiratory: Unremarkable Cardiovascular: Unremarkable Gastrointestinal: Unremarkable Genitourinary: Unremarkable Musculoskeletal: Unremarkable Integumentary: Unremarkable Neurological: Unremarkable Lymphatics: Unremarkable Physical Examination - Physical Exam General: Alert, Oriented x3 HEENT: Atraumatic, Normocephalic Neck: Supple Respiratory: Normal air movement Cardiovascular: Regular rate/rhythm, Normal S1 S2 Gastrointestinal: Soft and benign Neurological: Normal speech - Studies Laboratory Data (last 24 hrs) 07/06/23 07/06/23 18:55 17:43 WBC 7.40 Hgb 10.1 L Hct 30.7 L Plt Count 231 Sodium 135 L Potassium 4.6 BUN 34 H Creatinine 0.88 Glucose 72 L Assessment and Plan - Plan Hypoglycemia: Patient does have recurrent hypoglycemia evidenced by blood sugar of 55 on initial check. Dextrose infusion has been started. We will continue patient on every hour blood glucose monitoring, will also follow clinical symptomatology. This is deemed secondary to side effect of long-acting oral hypoglycemic drug. She will require 24-hour monitoring prior to discharge. Diabetes type 2: We will monitor blood sugar nightly and when stable will convert to ACHS. We will continue on carb restricted diet Hypertension: We will monitor vital signs per unit protocol and continue antihypertensive medications History of COVID disease: No new issues at this time. Saturating well on room air. We will follow the clinical symptomatology Hyperlipidemia: We will continue statin therapy Prophylaxis: Lovenox for DVT prophylaxis CODE STATUS: Full code Disposition: We will monitor hypoglycemia and discharge her when she is deemed safe for resumption of home therapy. Discharge Plan: [facility] - Advance Directives Does patient have a Living Will: No Does patient have a Durable POA for Healthcare: No - Code Status/Comfort Care Code Status: Full Code
[2023-07-06] MEDS ORDERED: MAGNESIUM SULFATE 1 gm IVPB 0 GM/0 ML BAG IV ONE (20:42)
[2023-07-06] MEDS ORDERED: D5 0.9 NS 1,000 ML IV ONE (20:42)
[2023-07-06] MEDS ORDERED: NA CHLORIDE 0.9% 500 ML ONE (20:42)
[2023-07-06] MEDS ORDERED: MORPHINE 2 MG/ML SYR ONE (20:42)
[2023-07-07] MEDS ORDERED: GLUCAGON 1 MG/VIAL IM PRN (02:58)
[2023-07-07] MEDS ORDERED: D50W 25 GM/50 ML SYRINGE IV PRN (02:58)
[2023-07-07] MEDS ORDERED: D10W 125 ML IV PRN (03:08)
[2023-07-07] MEDS: D5 0.45 NS 1,000 ML IV SCH (03:22)
[2023-07-07] MEDS: TRAMADOL HCL 50 MG TAB PO PRN ×3 (04:09→17:49)
[2023-07-07 08:03] LABS: Albumin 2.8 g/dL (3.4-5.0); Bilirubin Total 0.2 mg/dL (0.2-1.0); Potassium 4.9 mEq/L (3.5-5.1); Protein, Total 5.8 g/dL (6.4-8.2)
[2023-07-07] MEDS: INSULIN REGULAR (HUMAN) 100 UNIT/ML SQ SCH ×4 (09:09→20:41)
[2023-07-07] MEDS: ENOXAPARIN 40 MG/0.4 ML SQ SCH (09:10)
--- NOTE | 2023-07-07 15:15 | P.PN ---
Subjective Date of Service: 07/07/23 Chief Complaint: Weakness, recurrent hypoglycemia No acute events overnight. She states that she feels significantly better this morning. She reports pain in her right hip, where she has had a previous hip surgery. She denies any trauma to the hip or difficulty ambulating. She denies any chest pain, palpitations, or shortness of breath. Review of Systems 10-point ROS is otherwise unremarkable Musculoskeletal: Leg Pain (right hip) Physical Examination - Vital Signs Temperature: 99.1 F Blood Pressure: 123/54 Pulse: 79 Respirations: 18 Pulse Ox (%): 96 - Physical Exam General: Alert, In no apparent distress, Oriented x3 HEENT: Atraumatic, Mucous membr. moist/pink, Sclerae nonicteric Neck: JVD not distended Respiratory: Clear to auscultation bilaterally, Normal air movement Cardiovascular: No edema, Regular rate/rhythm, Normal S1 S2, No gallops, No rubs, No murmurs Gastrointestinal: Normal bowel sounds, Soft and benign, Non-distended, No tenderness, No rebound, No guarding Musculoskeletal: No clubbing Integumentary: No rashes Neurological: Normal speech, Normal affect - Studies Laboratory Data (last 24 hrs) 07/06/23 07/06/23 18:55 17:43 WBC 7.40 Hgb 10.1 L Hct 30.7 L Plt Count 231 Sodium 135 L Potassium 4.6 BUN 34 H Creatinine 0.88 Glucose 72 L Assessment And Plan - Plan # Generalized Weakness likely due to COVID-19 and/or Medication-Induced Hypoglycemia # Type II Diabetes Mellitus - She was recently diagnosed with COVID-19. Additionally, on presentation, her blood glucose was 51, which is thought to be secondary to sulfonylurea use. - Will hold her diabetes medications and monitor her glucose for 24 hours - If within acceptable range, she can possibly be discharged tomorrow - In regards to her COVID-19, her chest x-ray revealed, "no acute abnormalities displayed" - Pulmonology was consulted and notified Dr. Treadwell - Consulted PT - Encouraged incentive spirometry # History of Cerebrovascular Accident # Parkinson's Disease # Hypertension # Hyperlipidemia # Depression - Reconcile home medications once verified Bart Robles M.D.
--- NOTE | 2023-07-07 17:14 | RAD REPORT ---
EXAM DESCRIPTION: RAD - Hip Right 2 View - 07/07/2023 4:17 pm CLINICAL HISTORY: hip pain COMPARISON: Hip Right 2 View dated 12/16/2022 TECHNIQUE: Right hip, AP and frog-leg views. FINDINGS: Right femoral neck compression screws, in satisfactory alignment. No other acute fracture or dislocation. No acute or destructive bony process seen. IMPRESSION: No acute findings of the right hip. Screws fixating a known right neck fracture in [employer] alignment.
[2023-07-08] MEDS: TRAMADOL HCL 50 MG TAB PO PRN ×3 (00:10→11:31)
[2023-07-08] MEDS: D5 0.45 NS 1,000 ML IV SCH (00:12)
[2023-07-08] MEDS: INSULIN REGULAR (HUMAN) 100 UNIT/ML SQ SCH ×2 (07:30→13:55)
[2023-07-08 07:47] LABS: Potassium 4.8 mEq/L (3.5-5.1)
--- NOTE | 2023-07-08 08:07 | P.DS ---
Admission Date: 07/06/23 Discharge Date: 07/08/23 Disposition: ROUTINE DISCHARGE Discharge Condition: GOOD Reason for Admission: Weakness, recurrent hypoglycemia Brief History of Present Illness: Patient is 78 years of age admitted with COVID he is an active smoker planes of a sore throat otherwise no other complaints has some chest congestion Hospital Course: Patient had an unremarkable course at the time of discharge alert oriented responsive cooperative chest shows some rhonchi only has underlying COPD otherwise hemodynamically stable no fever be discharged home on trilogy chest x- ray clear patient is mildly anemic chemistries unremarkable will discharge home on antiviral therapy Vital Signs/Physical Exam: Temp Pulse Resp BP Pulse Ox 97 F 77 18 110/62 93 07/08/23 04:00 07/08/23 04:00 07/08/23 06:00 07/08/23 04:00 07/08/23 06:00 Laboratory Data at Discharge: WBC 7.40 thou/uL (4.3-10.9) 07/06/23 17:43 Hgb 10.1 g/dL (12.0-15.0) L 07/06/23 17:43 Hct 30.7 % (36.0-45.0) L 07/06/23 17:43 Plt Count 231 thou/uL (152-406) 07/06/23 17:43 Sodium 132 mEq/L (136-145) L 07/08/23 07:23 Potassium 4.8 mEq/L (3.5-5.1) 07/08/23 07:23 BUN 19 mg/dL (7-18) H 07/08/23 07:23 Creatinine 0.62 mg/dL (0.55-1.02) 07/08/23 07:23 Glucose 105 mg/dL (74-106) 07/08/23 07:23 Total Bilirubin 0.2 mg/dL (0.2-1.0) 07/07/23 07:33 AST 18 U/L (15-37) 07/07/23 07:33 ALT 18 U/L (13-56) 07/07/23 07:33 Alkaline Phosphatase 36 U/L (45-117) L 07/07/23 07:33 Home Medications: Atorvastatin Calcium 40 mg PO BEDTIME 03/19/21 Buspirone HCl [Buspar] 30 mg PO BID 03/19/21 Clopidogrel Bisulfate [Plavix*] 75 mg PO DAILY 03/19/21 Escitalopram Oxalate [Lexapro] 10 mg PO DAILY 03/19/21 Acetaminophen [Tylenol Extra Strength] 500 mg PO TIDP PRN 02/12/23 Furosemide 20 mg PO DAILY 02/12/23 Sennosides/Docusate Sodium [Gnp Senna Plus 8.6-50 mg Tab] 1 each PO BIDP PRN 02/12/23 Tramadol HCl [Ultram] 50 mg PO Q6HP PRN 02/12/23 dronabinoL [Marinol] 5 mg PO Q8HP PRN 02/12/23 polyethylene glycoL 3350 [Polyethylene Glycol 3350] 17 gm PO Q4HP PRN 02/12/23 Cholecalciferol (Vitamin D3) [Vitamin D3] 5,000 unit PO EVERY 7TH DAY 07/07/23 Glimepiride 1 mg PO DAILY 07/07/23 Metformin HCl 500 mg PO BID 07/07/23 Molnupiravir [Lagevrio (Eua)] 200 mg PO BID 07/07/23 Ondansetron [Zofran (Odt)*] 4 mg PO Q8HP PRN 07/07/23 Sitagliptin Phosphate [Januvia] 25 mg PO DAILY 07/07/23 Fluticasone/Umeclidin/Vilanter [Trelegy Ellipta 200-62.5-25] 1 each IH DAILY 30 Days #30 aero 07/08/23 New Medications: Fluticasone/Umeclidin/Vilanter [Trelegy Ellipta 200-62.5-25] 1 each IH DAILY 30 Days #30 aero Followup: NONE,NONE [Primary Care Provider] - Tremaine Treadwell MD [ACTIVE - CAN ADMIT] -
[2023-07-08] MEDS: ENOXAPARIN 40 MG/0.4 ML SQ SCH (11:32)
[2023-07-09 14:31] VITALS: BP 151/61; TEMP 97.5; O2SAT 95; BMI 19.7
== END 2023-07-08 15:30 | DRG 637 ==
LOC: ER 17:34 → ERHOLD 20:35 → 4TH 07-07 00:39 → OBSVTOIN 07-08 11:42
PROVIDERS: ADMIT Internal Medicine Nephrology; ATTEND Internal Medicine Sleep Medicine
DX: E11.649 Type 2 diabetes mellitus with hypoglycemia without coma (principal); U07.1 COVID-19; I10 Essential (primary) hypertension; F32.A Depression, unspecified; D64.9 Anemia, unspecified; E78.5 Hyperlipidemia, unspecified; J44.9 Chronic obstructive pulmonary disease, unspecified; M25.551 Pain in right hip; F17.210 Nicotine dependence, cigarettes, uncomplicated; T38.3X5A Adverse effect of insulin and oral hypoglycemic [antidiabetic] drugs, initial encounter; Z79.84 Long term (current) use of oral hypoglycemic drugs; Z86.73 Personal history of transient ischemic attack (TIA), and cerebral infarction without residual deficits; Z79.02 Long term (current) use of antithrombotics/antiplatelets; Z79.899 Other long term (current) drug therapy
CPT/HCPCS: 36415; 71045; 80048; 80053; 82947; 85025; 87635; 94010; 99285; G0378; J1610; J1650; J1815; J2270; J2930; J3475; J7030; J7040; J7042; J7799

== ENCOUNTER 2024-08-28 16:38 | Emergency (ER) | payer OTHER ==
[2024-08-28] MEDS ORDERED: ACETAMINOPHEN 500 MG TAB ONE (17:06)
--- NOTE | 2024-08-28 17:57 | RAD REPORT ---
EXAMINATION: Lumbar Spine 3 Views CLINICAL INDICATION: Back pain FINDINGS: Post surgical changes involve the spine. No acute fracture seen. No dislocation Chronic moderate compression deformity L1 vertebral body. Osteoporosis Large amount stool throughout the colon. A fecal impaction is suspected.
--- NOTE | 2024-08-28 17:58 | RAD REPORT ---
Exam:Femur Right CLINICAL HISTORY: Right leg pain. FINDINGS: Screws have been placed into an old right femoral fracture. No acute fracture or dislocation seen. Osteoporosis.
--- NOTE | 2024-08-28 18:15 | RAD REPORT ---
EXAMINATION: CT HEAD WITHOUT CONTRAST CT CERVICAL SPINE WITHOUT CONTRAST CLINICAL INDICATION: Head and neck injury status post fall. Head and neck pain TECHNIQUE: Axial CT images from the skull base to the vertex without intravenous contrast. Axial CT i mages through the cervical spine were obtained without intravenous contrast. Sagittal and coronal reformatted images were created from the data set. Coronal and sagittal reformatted images were creat ed from the data set. One or more of the following dose reduction techniques were used: Automated exposure control, adjustment of the mA and/or kV according to patient size, and/or iterative reconstr uction. Unless otherwise specified, incidental findings do not require dedicated imaging follow-up. [id number]. Comparison: 2022 FINDINGS: An intracranial bleed is not seen. Ventricles are normal in caliber. No significant hypodensity within the brain Old cerebral infarctions No fluid within the sinuses/mastoids No fracture or dislocation is seen involving the cervical spine. Moderate chronic anterior subluxation C3 on C4. Chronic anterior fusion C4-C6. Loss of the normal cheng dosis of the cervical spine. Scoliosis involves the spine. IMPRESSION: No acute intracranial abnormality noted A cervical fracture is not seen. If the patient continues to have symptoms to suggest acute [employer]/spinal pathology then MRI would be rec ommended
--- NOTE | 2024-08-28 19:11 | ER ---
Nurse's Notes [facility] Name: Mariah Canales Age: 79 yrs Sex: Female : 1945 Arrival Date: 08/28/2024 Time: 16:38 Bed 20 Private MD: Diagnosis: Fall from bed, initial encounter;Pain in right leg;Low back pain Presentation: 08/28 16:39 Chief complaint: EMS states: PT FELL FROM BED WAS GETTING CHANGED AND ROLLED OUT. HIT db RIGHT ELBOW AND COMPLAINS OF RIGHT UPPER LEG PAIN. ON PLAVIX. DENIES LOC. FROM [employer]. Coronavirus screen: Client denies travel out of the [place] in the last 14 days. At this time, the client does not indicate any symptoms associated with coronavirus-19. Ebola Screen: Patient negative for fever greater than or equal to 101.5 degrees Fahrenheit, and additional compatible Ebola Virus Disease symptoms Patient denies exposure to infectious person. Patient denies travel to an Ebola-affected area in the 21 days before illness onset. No symptoms or risks identified at this time. Initial Sepsis Screen: Does the patient meet any 2 criteria? No. Patient's initial sepsis screen is negative. Does the patient have a suspected source of infection? No. Patient's initial sepsis screen is negative. Risk Assessment: Do you want to hurt yourself or someone else? Patient reports no desire to harm self or others. Onset of symptoms was August 28, 2024. 16:39 Method Of Arrival: EMS: [facility] db 16:39 Acuity: AASHISH 3 db Triage Assessment: 16:53 General: Appears in no apparent distress. comfortable, Behavior is calm, cooperative, db appropriate for age. Pain: Complains of pain in lateral aspect of right thigh, RIGHT ELBOW. Neuro: Level of Consciousness is awake, alert, obeys commands, Oriented to person, place, time, situation. Respiratory: Airway is patent Respiratory effort is even, unlabored, Respiratory pattern is regular, symmetrical. Historical: - Allergies: 16:50 No Known Allergies; db - PMHx: 16:50 diabetes mellitus; Cerebrovascular accident; Diabetes mellitus; ATHEROSCLEROTIC HEART db DISEASE; Hypertensive disorder; Gastric reflux; Anxiety; Major depressive disorder; 16:53 CHROIC OBSTRUCTIVE PULMONARY DISEASE; Kidney disease; db - Immunization history:: Adult Immunizations unknown. - Infectious Disease History:: Denies. - Social history:: Smoking status: Patient denies any tobacco usage or history of. Screenin:16 [facility] ED Fall Risk Assessment (Adult) History of falling in the last 3 months, db including since admission No falls in past 3 months (0 pts) Confusion or Disorientation No (0 pts) Intoxicated or Sedated No (0 pts) Impaired Gait No (0 pts) Mobility Assist Device Used No (0 pt) Altered Elimination No (0 pt) Score/Fall Risk Level 0 - 2 = Low Risk Oriented to surroundings, Maintained a safe environment. Abuse screen: Denies threats or abuse. Denies injuries from another. Nutritional screening: No deficits noted. Tuberculosis screening: No symptoms or risk factors identified. Primary Survey: 19:23 NO uncontrolled hemorrhage observed. Breathing/Chest: Spontaneous respiratory effort, br2 equal unlabored respirations, breath sounds clear bilaterally, regular pattern, symmetrical chest rise and fall. Circulation: No external hemorrhage present. Regular and strong central pulse, skin warm/dry/normal color. Disability Client is alert. Exposure/Environment: A warming method has been applied: A warm blanket has been provided to the patient. Reassessment Breathing: Spontaneous respiratory effort, equal unlabored respirations, breath sounds clear bilaterally, regular pattern with symmetrical chest rise and fall. Respiratory effort Spontaneous Unlabored Circulation: No external hemorrhage noted. Regular and strong central pulse, skin warm/dry/normal color. Color [place] Disability: Alert. Assessment: 17:16 Reassessment: Patient appears in no apparent distress at this time. Patient and/or db family updated on plan of care and expected duration. Pain level reassessed. Patient is alert, oriented x 3, equal unlabored respirations, skin warm/dry/pink. General: Appears in no apparent distress. comfortable, Behavior is calm, cooperative. Neuro: Level of Consciousness is awake, alert, obeys commands, Oriented to person, place, time, situation. Respiratory: Airway is patent Respiratory effort is even, unlabored, Respiratory pattern is regular, symmetrical. 18:16 Reassessment: Patient appears in no apparent distress at this time. Patient and/or db family updated on plan of care and expected duration. Pain level reassessed. Patient is alert, oriented x 3, equal unlabored respirations, skin warm/dry/pink. PATIENT BRIEF CHANGED. INCONTINENT OF STOOL AND URINE. PATIENT CLEANED NO WOUNDS NOTED. General: Appears in no apparent distress. comfortable. 19:23 Reassessment: SPOKE TO KEVIN WITH [facility] ON PATIENT READY FOR PICKUP.br2 20:34 Reassessment: CALLED [facility] AGAIN AND SPOKE TO LUZ MARINA MORTON AND HE ADVISED THAT br2 EMS [facility] HAS BEEN NOTIFIED TO CASH RECONCILIATION SPECIALIST PATIENT. REPORT GIVEN TO PRAVEEN WELL. Vital Signs: 16:39 BP 187 / 89; Pulse 90; Resp 16; Temp 98.1(O); Pulse Ox 100% on R/A; Weight 49.9 kg; db Height 5 ft. 0 in. ; 17:00 BP 193 / 86; Pulse 84; Resp 16; Pulse Ox 98% on R/A; db 18:00 BP 136 / 67; Pulse 79; Resp 16; Pulse Ox 98% ; db 19:15 BP 152 / 69; Pulse 82; Resp 18; Pulse Ox 97% ; br2 20:44 BP 152 / 69; Pulse 82; Resp 18; Pulse Ox 97% ; br2 16:39 Body Mass Index 21.48 (49.90 kg, 152.4 cm) db ED Course: 16:46 Patient arrived in ED. db 16:50 Triage completed. db 16:53 Arm band placed on Patient placed in an exam room. db 16:56 Anila Farmer, LAKESHA is Primary Nurse. db 16:59 Kairra Luong FNP-C [facility]. kb 16:59 Mk Portillo MD is Attending Physician. kb 17:16 Patient has correct armband on for positive identification. Bed in low position. Call db light in reach. Side rails up X 1. Pulse ox on. NIBP on. Warm blanket given. Pillow given. 17:[address] via stretcher. db 17:38 Femur Right XRAY In Process Unspecified. EDMS 17:38 Lumbar Spine (3 Views) XRAY In Process Unspecified. EDMS 17:47 CT Head C Spine In Process Unspecified. EDMS 19:10 Kae Calle, LAKESHA is Primary Nurse. br2 Administered Medications: 17:24 Drug: Acetaminophen PO 1000 mg PO once Route: PO; db 19:10 Follow up: Response: No adverse reaction br2 Medication: 17:16 VIS not applicable for this client. db Outcome: 19:10 Discharge ordered by MD. kb 19:23 Discharged to [facility]. Report called to PRAVEEN no 19:23 Condition: improved 19:23 Patient's length of stay in the Emergency Department was greater than 2 hours. PENDING DISPOPatient's length of stay extended due to 20:48 Patient left the ED. br2 Signatures: Dispatcher [employer] EDKiarra Don, JANET RIBERA-Anila Wilkinson RN RN db Kae Calle RN RN br2
--- NOTE | 2024-08-28 19:11 | EDPHYS ---
Physician Documentation [facility] Name: Mariah Canales Age: 79 yrs Sex: Female : 1945 Arrival Date: 08/28/2024 Time: 16:38 Bed 20 Private MD: ED Physician Mk Portillo HPI: 08/28 20:44 This 79 yrs old Female presents to ER via EMS with complaints of Fall Injury. kb 20:44 Pt is a 79 year old female who presents for right leg and low back pain after rolling kb out of bed, approx 1.5ft. Denies hitting head, loc. Reports pain to right upper leg and low back only. . Historical: - Allergies: 16:50 No Known Allergies; db - PMHx: 16:50 diabetes mellitus; Cerebrovascular accident; Diabetes mellitus; ATHEROSCLEROTIC HEART db DISEASE; Hypertensive disorder; Gastric reflux; Anxiety; Major depressive disorder; 16:53 CHROIC OBSTRUCTIVE PULMONARY DISEASE; Kidney disease; db - Immunization history:: Adult Immunizations unknown. - Infectious Disease History:: Denies. - Social history:: Smoking status: Patient denies any tobacco usage or history of. ROS: 20:38 Constitutional: As per HPI kb Exam: 20:38 Constitutional: This is a well developed, well nourished patient who is awake, alert, kb and in no acute distress. Head/Face: Normocephalic, atraumatic. ENT: Moist Mucous membranes Cardiovascular: Regular rate Respiratory: Respirations even and unlabored. No increased work of breathing. Talking in full sentences Abdomen/GI: Soft, non-tender. No distention Skin: Warm, dry with normal turgor. Normal color. Neuro: Awake and alert, GCS 15, oriented to person, place, time, and situation. 20:38 Back: pain, that is mild, of the lumbar area, 20:38 Musculoskeletal/extremity: Extremities: grossly normal except: noted in the right quadriceps: pain, ROM: intact in all extremities, Circulation is intact in all extremities. Sensation intact. 20:44 Skin: skin tear right elbow. kb Vital Signs: 16:39 BP 187 / 89; Pulse 90; Resp 16; Temp 98.1(O); Pulse Ox 100% on R/A; Weight 49.9 kg; db Height 5 ft. 0 in. ; 17:00 BP 193 / 86; Pulse 84; Resp 16; Pulse Ox 98% on R/A; db 18:00 BP 136 / 67; Pulse 79; Resp 16; Pulse Ox 98% ; db 19:15 BP 152 / 69; Pulse 82; Resp 18; Pulse Ox 97% ; br2 20:44 BP 152 / 69; Pulse 82; Resp 18; Pulse Ox 97% ; br2 16:39 Body Mass Index 21.48 (49.90 kg, 152.4 cm) db MDM: 16:59 Medical Screening Exam initiated kb 20:44 Differential diagnosis: abrasion, contusion, fracture. Data reviewed: vital signs, kb nurses notes. Counseling: I had a detailed discussion with the patient and/or guardian regarding the historical points, exam findings, and any diagnostic results supporting the discharge/admit diagnosis, radiology results, the need for outpatient follow up, a family practitioner, to return to the emergency department if symptoms worsen or persist or if there are any questions or concerns that arise at home. 20:47 Test considered but Not performed: X-ray: xray of right elbow considered but pt has kb full ROM and no bony tenderness. 08/28 17:02 Order name: Femur Right XRAY; Complete Time: 18:01 kb 08/28 17:02 Order name: Lumbar Spine (3 Views) XRAY; Complete Time: 18:01 kb 08/28 17:02 Order name: CT Head C Spine; Complete Time: 18:23 kb Administered Medications: 17:24 Drug: Acetaminophen PO 1000 mg PO once Route: PO; db 19:10 Follow up: Response: No adverse reaction br2 Disposition Summary: 08/28/24 19:10 Discharge Ordered Notes: Location: Home kb Condition: Stable kb Diagnosis - Fall from bed, initial encounter kb - Pain in right leg kb - Low back pain kb Followup: kb - With: Private Physician - When: 2 - 3 days - Reason: Recheck today's complaints, Continuance of care, Re-evaluation by your physician Followup: kb - With: Emergency Department - When: As needed - Reason: Worsening of condition Discharge Instructions: - Discharge Summary Sheet kb - Musculoskeletal Pain kb - Fall Prevention in the Home, Adult, [id number] kb Forms: - Medication Reconciliation Form kb - Antibiotic Education kb - Prescription Opioid Use kb - Patient Portal Instructions kb - Leadership Thank You Letter kb Signatures: Dispatcher [employer] Kiarra Nino, LINEN SORTER-C LINEN SORTER-Ckb Anila Farmer, RN RN db Kae Calle RN br2
[2024-08-28 21:30] VITALS: TEMP 98.1
[2024-08-28 21:33] VITALS: BP 152/69; O2SAT 97
== END 2024-08-28 20:48 | disposition home or self-care (01) ==
LOC: ER 16:38
DX: M79.604 Pain in right leg (principal); M54.50 Low back pain, unspecified; W06.XXXA Fall from bed, initial encounter; E11.9 Type 2 diabetes mellitus without complications; I10 Essential (primary) hypertension
CPT/HCPCS: 70450; 72100; 72125; 99284

== ENCOUNTER 2024-11-12 16:52 | Emergency (ER) | payer OTHER ==
[2024-11-12 17:29] LABS: Specific Gravity 1.012 (1.005-1.030); Sqamous Epithelial <5 /HPF (None Seen); Urine Bacteria <20 /HPF (<20); Urine Bilirubin NEGATIVE (Negative); Urine Blood Negative (Negative); Urine Clarity Extremely Turbid (Clear); Urine Color Light-Yellow (Yellow); Urine Crystals Unidentified Few /HPF (None Seen); Urine Culture Reflex Order NOT NEEDED; Urine Glucose NEGATIVE (Negative); Urine Ketones NEGATIVE (Negative); Urine Microscopic Reflex YN ORDER UMIC; Urine Mucus Slight /HPF (None Seen); Urine Nitrite 2+ (Negative); Urine Protein TRACE (Negative); Urine RBC <5 /HPF (None Seen); Urine Urobilinogen Normal (Normal); Urine Yeast (Budding) Few /HPF (None Seen); Urine pH 6.5 (5.0-7.0)
--- NOTE | 2024-11-12 18:52 | RAD REPORT ---
EXAM:Femur Right HISTORY: PAIN RIGHT COMPARISON: None IMPRESSION: No right femur fracture identified. Screws traverse the right femoral neck. Peripheral vascular calcifications. Tricompartmental degenera tive changes are present at the knee.
--- NOTE | 2024-11-12 19:15 | ER ---
Nurse's Notes [facility] Name: Mariah Canales Age: 79 yrs Sex: Female : 1945 Arrival Date: 11/12/2024 Time: 16:52 Bed 4 Private MD: Diagnosis: Pain in right leg Presentation: 11/12 16:54 Chief complaint: EMS states: "[facility] staff reported pt came in screaming c/o aa5 right hip pain after her smoking break, staff also reported pt appeared lethargic". EMS reports pt was awake and alert upon scene arrival, c/o right hip pain that is chronic. Pt denies any falls. Coronavirus screen: At this time, the client does not indicate any symptoms associated with coronavirus-19. Ebola Screen: Patient denies travel to an Ebola-affected area in the 21 days before illness onset. Initial Sepsis Screen: Does the patient meet any 2 criteria? No. Patient's initial sepsis screen is negative. Does the patient have a suspected source of infection? No. Patient's initial sepsis screen is negative. Risk Assessment: Do you want to hurt yourself or someone else? Patient reports no desire to harm self or others. Onset of symptoms was November 12, 2024. 16:54 Acuity: AASHISH 3 aa5 16:54 Method Of Arrival: EMS: [facility] aa5 16:54 Transition of care: patient was received from another setting of care (long-term care aa5 facility), [facility]. Historical: - Allergies: 16:57 No Known Allergies; aa5 - PMHx: 16:57 Anxiety; Atherosclerotic heart disease; Cerebrovascular accident; CHROIC OBSTRUCTIVE aa5 PULMONARY DISEASE; diabetes mellitus; Gastric Reflux; Hypertensive disorder; Major Depressive Disorder; kidney disease; Non-ambulatory (Unknown); RLS; Protein calorie malnutrition; Parkinson's disease; - Immunization history:: Adult Immunizations unknown. - Infectious Disease History:: Denies. - Social history:: Smoking status: Patient reports the use of cigarette tobacco products. Screenin:59 [facility] ED Fall Risk Assessment (Adult) History of falling in the last 3 months, aa5 including since admission No falls in past 3 months (0 pts) Confusion or Disorientation No (0 pts) Intoxicated or Sedated No (0 pts) Impaired Gait Yes (1 pt) Mobility Assist Device Used Yes (1 pt) Altered Elimination Yes (1 pt) Score/Fall Risk Level 3 or more points = High Risk Oriented to surroundings, Maintained a safe environment, Educated pt \\T\\ family on fall prevention, incl call for assistance when getting out of bed, Assessed \\T\\ reinforced patient's understanding of fall precautions. Abuse screen: Denies threats or abuse. Nutritional screening: No deficits noted. Tuberculosis screening: No symptoms or risk factors identified. Assessment: 16:54 General: Appears uncomfortable, Behavior is calm, cooperative. Pain: Complains of pain aa5 in right hip and lateral aspect of right thigh Pain currently is 10 out of 10 on a pain scale. Is continuous. Neuro: Level of Consciousness is awake, alert, obeys commands, Oriented to person, place, time, situation. Cardiovascular: Patient's skin is warm and dry. Respiratory: Airway is patent Respiratory effort is even, unlabored, Respiratory pattern is regular, symmetrical. GI: No signs and/or symptoms were reported involving the gastrointestinal system. : No signs and/or symptoms were reported regarding the genitourinary system. EENT: No signs and/or symptoms were reported regarding the EENT system. Derm: Skin is pink, warm \\T\\ dry. Musculoskeletal: Reports pain in right hip. 17:30 Reassessment: Patient is alert, oriented x 3, equal unlabored respirations, skin aa5 warm/dry/pink. 18:00 Reassessment: Patient is alert, oriented x 3, equal unlabored respirations, skin aa5 warm/dry/pink. 19:30 General: Appears in no apparent distress. comfortable, Behavior is calm, cooperative. al5 Pain: Complains of pain in right leg and right hip Pain currently is 4 out of 10 on a pain scale. Neuro: Level of Consciousness is awake, alert, obeys commands, Oriented to person, place, time, situation. Cardiovascular: Capillary refill < 3 seconds Patient's skin is warm and dry. Respiratory: Airway is patent Respiratory effort is even, unlabored, Respiratory pattern is regular, symmetrical. GI: No signs and/or symptoms were reported involving the gastrointestinal system. : No signs and/or symptoms were reported regarding the genitourinary system. EENT: No signs and/or symptoms were reported regarding the EENT system. Derm: Skin is intact, is healthy with good turgor, Skin is pink, warm \\T\\ dry. normal. Musculoskeletal: Reports pain in right leg and right hip patient chair bound. 19:47 Reassessment: discharge pending transfer back to [facility]. al5 Vital Signs: 16:54 BP 182 / 72; Pulse 88; Resp 16 S; Temp 98.6(A); Pulse Ox 92% on R/A; aa5 17:30 BP 177 / 66; Pulse 91; Resp 16 S; Pulse Ox 92% on R/A; aa5 19:44 BP 183 / 73; Pulse 81; Resp 16; Pulse Ox 98% on R/A; al5 20:03 BP 128 / 101; Pulse 87; Resp 16; Pulse Ox 98% on R/A; al5 20:03 patient laying on R side al5 ED Course: 16:53 Patient arrived in ED. aa5 16:54 Arm band placed on. aa5 16:54 Patient has correct armband on for positive identification. Bed in low position. Call aa5 light in reach. Side rails up X2. Pulse ox on. NIBP on. 16:57 Triage completed. aa5 16:59 Kiarra Luong FNP-C [facility]. kb 16:59 Kartik Beaulieu MD is Attending Physician. kb 17:00 Rebecca Barnhart, LAKESHA is Primary Nurse. aa5 17:20 Straight cath inserted, using sterile technique, 14 Fr. Specimen obtained. Returned aa5 cloudy urine. Patient tolerated well. 17:44 No provider procedures requiring assistance completed. aa5 18:39 Femur Right XRAY In Process Unspecified. EDMS 19:00 Report given to LAKESHA Mcwilliams. aa5 19:44 Provided Education on: discharge follow up. al5 Administered Medications: 20:02 Drug: Acetaminophen PO 650 mg PO once Route: PO; al5 Medication: 16:59 VIS not applicable for this client. aa5 Outcome: 19:14 Discharge ordered by . kb 21:42 Patient left the ED. vc1 Signatures: Dispatcher [employer] EDMS Kiarra Luong FNP-C FNP-Rebecca Ghosh RN RN aa5 Barbara Urbina RN RN vc1 Poppy Parra RN RN al5
--- NOTE | 2024-11-12 19:15 | EDPHYS ---
Physician Documentation [facility] Name: Mariah Canales Age: 79 yrs Sex: Female : 1945 Arrival Date: 11/12/2024 Time: 16:52 Bed 4 Private MD: ED Physician Kartik Beaulieu HPI: 11/12 17:12 This 79 yrs old Female presents to ER via EMS with complaints of Hip Pain. kb 17:12 Pt is a 79 year old female who presents for right hip/lateral femur pain that started 3 kb hours [employer]. Denies injury, trauma, fall. . Historical: - Allergies: 16:57 No Known Allergies; aa5 - PMHx: 16:57 Anxiety; Atherosclerotic heart disease; Cerebrovascular accident; CHROIC OBSTRUCTIVE aa5 PULMONARY DISEASE; diabetes mellitus; Gastric Reflux; Hypertensive disorder; Major Depressive Disorder; kidney disease; Non-ambulatory (Unknown); RLS; Protein calorie malnutrition; Parkinson's disease; - Immunization history:: Adult Immunizations unknown. - Infectious Disease History:: Denies. - Social history:: Smoking status: Patient reports the use of cigarette tobacco products. ROS: 17:11 Constitutional: As per HPI kb Exam: 17:11 Constitutional: This is a well developed, well nourished patient who is awake, alert, kb and in no acute distress. Head/Face: Normocephalic, atraumatic. ENT: Moist Mucous membranes Cardiovascular: Regular rate Respiratory: Respirations even and unlabored. No increased work of breathing. Talking in full sentences Skin: Warm, dry with normal turgor. Normal color. Neuro: Awake and alert, GCS 15, oriented to person, place, time, and situation. 17:11 Musculoskeletal/extremity: Extremities: grossly normal except: noted in the lateral aspect of right thigh: pain, tenderness, ROM: intact in all extremities, Circulation is intact in all extremities. Sensation intact. Vital Signs: 16:54 BP 182 / 72; Pulse 88; Resp 16 S; Temp 98.6(A); Pulse Ox 92% on R/A; aa5 17:30 BP 177 / 66; Pulse 91; Resp 16 S; Pulse Ox 92% on R/A; aa5 19:44 BP 183 / 73; Pulse 81; Resp 16; Pulse Ox 98% on R/A; al5 20:03 BP 128 / 101; Pulse 87; Resp 16; Pulse Ox 98% on R/A; al5 20:03 patient laying on R side al5 MDM: 16:59 Medical Screening Exam initiated kb 17:12 Differential diagnosis: hip fracture, arthritis, strain. Data reviewed: vital signs, kb nurses notes. Historians other than the Patient: EMS: [facility]. 19:14 Counseling: I had a detailed discussion with the patient and/or guardian regarding the kb historical points, exam findings, and any diagnostic results supporting the discharge/admit diagnosis, radiology results, the need for outpatient follow up, a family practitioner, to return to the emergency department if symptoms worsen or persist or if there are any questions or concerns that arise at home. 11/12 17:04 Order name: Urinalysis w/ reflexes; Complete Time: 17:29 kb 11/12 17:04 Order name: Femur Right XRAY; Complete Time: 18:58 kb 11/12 17:43 Order name: Straight Cath - Urine: VO received at 1710; Complete Time: 17:43 aa5 Administered Medications: 20:02 Drug: Acetaminophen PO 650 mg PO once Route: PO; al5 Disposition Summary: 11/12/24 19:14 Discharge Ordered Notes: Location: Home kb Condition: Stable kb Diagnosis - Pain in right leg kb Followup: kb - With: Emergency Department - When: As needed - Reason: Worsening of condition Followup: kb - With: Private Physician - When: 2 - 3 days - Reason: Recheck today's complaints, Continuance of care, Re-evaluation by your physician Discharge Instructions: - Discharge Summary Sheet kb - Musculoskeletal Pain kb Forms: - Medication Reconciliation Form kb - Antibiotic Education kb - Prescription Opioid Use kb - Patient Portal Instructions kb - Leadership Thank You Letter kb Signatures: Dispatcher [employer] EDMS Kiarra Luong, MANAGER SALES SUPPORT-C MOUNIKA-Rebecca Ghosh, RN RN aa5 Poppy Parra RN RN al5 Corrections: (The following items were deleted from the chart) 18:39 17:04 Hip Right 2 View+RAD.RAD.BRZ ordered. EDLA EDMS
[2024-11-12] MEDS ORDERED: ACETAMINOPHEN 325 MG TABLET ONE (19:50)
[2024-11-12 21:47] VITALS: TEMP 98.6
[2024-11-12 21:50] VITALS: O2SAT 98
[2024-11-12 21:52] VITALS: BP 128/101
== END 2024-11-12 21:42 | disposition home or self-care (01) ==
LOC: ER 16:52
DX: M79.604 Pain in right leg (principal); G20.A1 Parkinson's disease without dyskinesia, without mention of fluctuations; Z72.0 Tobacco use
CPT/HCPCS: 51702; 81001; 99284